=== PATIENT | female | born 1945 | race Caucasian/White ===

== ENCOUNTER 2021-12-21 08:08 | Day surgery (SDC) | payer MEDICARE, SELFPAY ==
--- NOTE | 2021-12-21 | MM_ITS ---
Patient: DANDRE CRISOSTOMO Facility:?[facility] Patient ID:?[id number] Site Patient ID:?[id number]. Site :?1945 Study:?XRay-Breast Right SPECIMEN 1-DR. HOLT READ-12/21/2021 1:41:31 PM Ordering Physician:?Gilmar De La Vega Final Report: RIGHT SPECIMEN RADIOGRAPH NUMBER ONE INDICATION: First specimen radiograph. TECHNIQUE: Specimen radiographs 2 views. COMPARISON FILM: Wire localization mammogram 12/21/2021 and mammogram 11/16/2021. FINDINGS: The wire is entirely contained within the specimen. No identifiable mass or suspicious microcalcifications. IMPRESSION: Specimen radiograph number one containing the first wire placed by ultrasound-guided guidance. Jez Holt M.D. Diagnostic/Musculoskeletal Radiologist [email or web address] CHARLES/kamari D& Transcribed: 9:33 a.m. BRITTANI/Dictated by: Jez Holt MD @ 12/22/2021 6:51:00 AM Signed by:?Jez Holt MD @12/22/2021 12:42:21 PM (Electronic Signature)
--- NOTE | 2021-12-21 | MM_ITS ---
Patient: DANDRE CRISOSTOMO Facility:?[facility] Patient ID:?[id number] Site Patient ID:?[id number]. Site :?1945 Study:?XRay-Breast Right SPECIMEN 2 DR. HOLT READ-12/21/2021 1:42:58 PM Ordering Physician:Marcio De La Vega Final Report: RIGHT SPECIMEN RADIOGRAPH NUMBER TWO INDICATION: Second specimen radiograph. TECHNIQUE: Specimen radiographs 2 views. COMPARISON FILM: Specimen radiograph 12/21/2021 from first wire localization and wire localization mammogram 12/21/2021 and mammogram 11/16/2021. FINDINGS: Localization wire, biopsy clip and microcalcifications are contained within the sample. The small mass also appears to be within the sample. IMPRESSION: Second wire localization wire placed by stereotactic guidance, suspicious microcalcifications and mass are contained within the sample. Jez Holt M.D. Diagnostic/Musculoskeletal Radiologist [email or web address] CHARLES/kamari Transcribed: 9:34 a.m. BRITTANI/Dictated by: Jez Holt MD @ 12/22/2021 6:51:00 AM Signed by:?Jez Holt MD @12/22/2021 12:42:25 PM (Electronic Signature)
--- NOTE | 2021-12-21 | MM_ITS ---
Patient: DANDRE CRISOSTOMO Facility:?[facility] Patient ID:?[id number] Site Patient ID:?[id number]. Site :?1945 Study:?XRay-Breast Right 2D WIRE LOC-12/21/2021 11:18:47 AM Ordering Physician:Marcio De La Vega Final Report: RIGHT MAMMOGRAM FOR WIRE LOCALIZATION INDICATION: Wire localization. TECHNIQUE: RIGHT CC and MLO mammograms for wire localization and stereotactic wire localization. COMPARISON FILM: RIGHT breast ultrasound wire localization 12/21/2021, diagnostic mammogram 11/16/2021, ultrasound breast biopsy 11/16/2021. FINDINGS: Ultrasound-guided wire localization wire is in the upper outer RIGHT breast approximately 4-5 cm anterior to the biopsy clip. This wire is approximately 4-5 cm from the skin surface with no obvious mass lesion or suspicious calcifications on mammogram. Re-ultrasound shows the wire within a hypodense mass lesion. The patient was positioned for stereotactic wire localization in the right breast LM position. The skin was cleaned with ChloraPrep and the skin and subcutaneous tissues anesthetized with 1% lidocaine without epinephrine. The needle was advanced tip over hub with subsequent mammogram showing the needle position over the clip. The patient was then repositioned in CC view and the needle was repositioned and wire deployed at the mass and biopsy clip in the upper outer RIGHT breast. Subsequent mammograms demonstrate the wire adjacent to the mass. Both wires were secured to the skin. Findings and reason for two localization wires was discussed with Dr. Schafer at approximately 11 a.m. on 12/21/2021. IMPRESSION: 1. More anterior ultrasound-guided wire localization is not within the mass or biopsy clip. Re-ultrasound demonstrates the wire in an irregular hypodense mass lesion. This was discussed with Dr. Schafer. 2. Stereotactic-guided wire localization with wire adjacent to the mass and biopsy clip in the upper outer RIGHT breast. Jez Styles M.D. Diagnostic/Musculoskeletal Radiologist [email or web address] CHARLES/kamari D& Transcribed: 3:34 p.m. BRITTANI/Dictated by: Jez Styles MD @ 12/21/2021 11:55:00 AM Signed by:?Jez Styles MD @12/21/2021 8:58:57 PM (Electronic Signature)
[2021-12-21 07:58] VITALS: BMI 27.5
--- NOTE | 2021-12-21 08:47 | PC.NURSE ---
patient has [employer] Daja sensor. Patient checked glucose level at 0715. result 159
[2021-12-21 08:49] VITALS: BP 173/77; PULSE 63; RESP 16; TEMP 36.8; O2SAT 100
[2021-12-21] MEDS: LACTATED RINGERS 1000 ML 1,000 ML 100 ML IV ×2 (09:02→12:57)
--- NOTE | 2021-12-21 09:15 | US_ITS ---
Final Report Patient: DANDRE CRISOSTOMO Facility:?[facility] Patient ID:?[id number] Site Patient ID:?[id number]. Site :?1945 Study:?US Breast Procedure DR. STYLES TO READ-12/21/2021 10:39:44 AM Ordering Physician:Marcio De La Vega Final Report: Breast wire localization using ultrasound guidance. CLINICAL HISTORY: Right upper-outer invasive ductal carcinoma. LATERALITY: Right upper-outer LESION: 5 mm irregular hypoechoic mass lesion was identified in the right upper outer quadrant. TECHNIQUE: The localization wire was placed using real-time ultrasound guidance with image documentation. Cranial-caudal and medial-lateral digital mammograms were obtained after localization wire placement. CONSENT and TIME OUT: The procedure, risks, and alternatives were explained to the patient and a consent was signed. [place] Protocol was followed including pre-procedure verification that relevant information/documentation was available, reviewed and properly matched to the patient; consent accurate and complete; and equipment and supplies available. Time Out was conducted just prior to starting procedure to verify the four required elements: patient identity, correct side/site marked, procedure, relevant images/results properly labeled and displayed. PROCEDURE: The skin was prepped with Betadine and 3 cc of 1 percent lidocaine was injected for local anesthesia. The localization wire was placed within or near the targeted breast lesion using ultrasound guidance. The patient tolerated the procedure well. PROXIMITY OF WIRE TO LESION: Tip of the wire is within the mass lesion present IMPRESSION: Successful breast wire localization within irregular hypoechoic mass lesion in the right upper outer quadrant at approximately 10 o`clock. Post localization mammograms demonstrate the wire anterior to the biopsy clip and mass. Ultrasound was performed which showed the wire within a hypoechoic mass lesion. Subsequently, in addition stereotactic wire localization was performed targeting the biopsy clip. Findings and presence of [address] wires [address] Schafer at approximately 11 a.m. on 12/21/2021. ACR not applicable. Dictated by Jez Styles MD @ 12/21/2021 12:07:40 PM (Electronic Signature)
--- NOTE | 2021-12-21 09:15 | TELERAD_ITS ---
Final Report Patient: DANDRE CRISOSTOMO Facility:?[facility] Patient ID:?[id number] :?1945 Study:?XRay Breast Right 2D WIRE LOC-12/21/2021 11:18:47 AM Ordering Physician:Marcio De La Vega Final Report: RIGHT MAMMOGRAM FOR WIRE LOCALIZATION INDICATION: Wire localization. TECHNIQUE: RIGHT CC and MLO mammograms for wire localization and stereotactic wire localization. COMPARISON FILM: RIGHT breast ultrasound wire localization 12/21/2021, diagnostic mammogram 11/16/2021, ultrasound breast biopsy 11/16/2021. FINDINGS: Ultrasound-guided wire localization wire is in the upper outer RIGHT breast approximately 4-5 cm anterior to the biopsy clip. This wire is approximately 4-5 cm from the skin surface with no obvious mass lesion or suspicious calcifications on mammogram. Re-ultrasound shows the wire within a hypodense mass lesion. The patient was positioned for stereotactic wire localization in the right breast LM position. The skin was cleaned with ChloraPrep and the skin and subcutaneous tissues anesthetized with 1% lidocaine without epinephrine. The needle was advanced tip over hub with subsequent mammogram showing the needle position over the clip. The patient was then repositioned in CC view and the needle was repositioned and wire deployed at the mass and biopsy clip in the upper outer RIGHT breast. Subsequent mammograms demonstrate the wire adjacent to the mass. Both wires were secured to the skin. Findings and reason for two localization wires was discussed with Dr. Schafer at approximately 11 a.m. on 12/21/2021. IMPRESSION: 1. More anterior ultrasound-guided wire localization is not within the mass or biopsy clip. Re-ultrasound demonstrates the wire in an irregular hypodense mass lesion. This was discussed with Dr. Schafer. 2. Stereotactic-guided wire localization with wire adjacent to the mass and biopsy clip in the upper outer RIGHT breast. Jez Styles M.D. Diagnostic/Musculoskeletal Radiologist [email or web address] CHARLES/kamari D& Transcribed: 3:34 p.m. BRITTANI/Dictated by: Jez Styles MD @ 12/21/2021 11:55:00 AM (Electronic Signature)
[2021-12-21] MEDS: BUPIVACAINE 0.25% 30 ML 15 ML INJECTION (11:15)
[2021-12-21] MEDS: CEFAZOLIN 2 GM INJ IVP (11:20)
--- NOTE | 2021-12-21 12:33 | PM.GSPRC ---
Operative Note Date of procedure: 12/21/21 Pre-op diagnosis: 1. Right breast invasive ductal carcinoma. Post-op diagnosis: same Type of Procedure: 1. Wire localized right breast lumpectomy. 2. Wire localized right breast excisional biopsy ( additional incidentally found right breast mass ) Procedure Description: I 76-year-old female was seen in clinic with a newly diagnosed 5 mm right breast invasive ductal carcinoma, grade 2 of 3 with no angiolymphatic invasion and no associated DCIS, ER / [place] positive and HER2 negative. This was located at 10:00 11 cm from the nipple. Patient had a history of 2 previous right breast core biopsies and 2 excisional biopsies for benign pathology. Given patient's clinical information and her age, wire localized lumpectomy was recommended. The procedure was discussed in detail. The risks associated the procedure including infection, bleeding, and the need for additional procedures were all discussed with the patient, and she agreed to proceed. During patient's wire localization of the known invasive ductal carcinoma, a small right breast nodule was located at 10:00. Once the wire was placed into this nodule, post localization mammogram showed that the wire was far from the biopsy clip. This was thought to be a new incidentally found nodule. A second wire was then placed into the known breast cancer. This was discussed with the patient and we elected to excise the newly found right breast nodule today. Pre-operative mammographic films taken after wire localization were reviewed. The mixture of Lidocaine and Marcaine was used as local anesthetic and was injected at the site of the incision. I first started with lumpectomy of the known invasive ductal carcinoma. The lumpectomy was performed by making a?transverse incision in the right breast just medial to the wire.? The breast tissue around the wire was then excised in a cylinder like fashion following the course of the wire using cautery.? This was done with frequent palpation of the wire.? The specimen was then excised making sure that the wire was still in the specimen. Margins of the specimen were inked and the specimen was then sent to mammography first to confirm presence of the wire and the clip and to pathology afterwards for gross margins. In the meantime I proceeded with excisional biopsy of the right breast mass that was incidentally found on wire localization ultrasound. A transverse incision was made just superior to the entrance of the wire. This was located at 10:00 and was lateral to the previously well-healed surgical incision. Subcutaneous skin flaps were developed with cautery until the wire was encountered and pulled into the surgical incision. The breast tissue was then excised in a cylinder like fashion following the course of the wire with frequent palpation of the wire. The specimen of interest was located fairly superficial. This was excised with cautery and inked for orientation. This was sent to pathology for gross examination. Pathologist reviewed the Known invasive ductal carcinoma specimen and the tumor and the biopsy clip was identified in the surgical specimen.?All margins were grossly negative. Pathologist also looked at the incidentally found mass and that appeared to be benign on gross examination. Surgical field was examined for bleeding and any bleeding was controlled with electrocautery. Vascular clips were placed for marking of invasive ductal carcinoma incisional cavity. Both incisions were re-approximated with interrupted 2-0 Vicryl stitches. Interrupted subdermal stitches were placed with 3-0 Vicryl as well and skin was closed with 4-0 Monocryl subcuticular stitch. Steristrips and sterile dressings were applied. At the end of the operation, all sponge, instrument, and needle counts were correct. Patient tolerated the procedure well and was transferred to same-day surgery in stable condition. Findings: the known invasive ductal carcinoma tumor was identified and no margins were negative. The second nodule excised appeared benign on gross pathology. Anesthesia: MAC and local Surgeon: Yolette Schafer MD Estimated blood loss (mL): 5 Condition: stable Disposition: same day
[2021-12-21 12:35] VITALS: BP 127/86; PULSE 64; RESP 12; TEMP 36.6; O2SAT 99
[2021-12-21 12:45] VITALS: BP 129/63; PULSE 65; RESP 12; O2SAT 95
--- NOTE | 2021-12-21 12:46 | SUR.PHASEII ---
Pt checked glucose level at 1245, result 148
--- NOTE | 2021-12-21 12:56 | W.ANESCHARGE ---
Anesthesia Charges Start Date/Time Anesthesia Start Date: 12/21/21 Anesthesia Start Time: 11:15 Stop Date/Time Anesthesia Stop Date: 12/21/21 Anesthesia Stop Time: 12:30 Summary Emergency: No Extremes of Age: Over 70-CPT 28145
[2021-12-21 13:00] VITALS: BP 148/76; PULSE 51; RESP 12; O2SAT 99
[2021-12-21] MEDS: METOCLOPRAMIDE HCL 5 MG/ML INJ 10 MG IVP (13:12)
[2021-12-21 13:15] VITALS: BP 148/68; PULSE 53; RESP 12; O2SAT 96
[2021-12-21 13:30] VITALS: BP 138/81; PULSE 53; RESP 16
--- NOTE | 2021-12-21 13:36 | SUR.PHASEII ---
Q EASY AROMATHERAPY PATCH APPLIED TO PATIENT'S LEFT UPPER CHEST.
--- NOTE | 2021-12-21 14:22 | W.ANESCHARGE ---
Anesthesia Charges Start Date/Time Anesthesia Start Date: 12/21/21 Anesthesia Start Time: 11:15 Stop Date/Time Anesthesia Stop Date: 12/21/21 Anesthesia Stop Time: 12:30 Summary Emergency: No Extremes of Age: Over 70-CPT 92299
== END 2021-12-21 14:44 | disposition home or self-care (01) ==
PROVIDERS: PCP Internal Medicine; Visit Provider Surgery
PROC: (CPT 19301; principal; 2021-12-21 11:30)
DX: C50.411 Malignant neoplasm of upper-outer quadrant of right female breast (principal); N63.11 Unspecified lump in the right breast, upper outer quadrant; Z17.0 Estrogen receptor positive status [ER+]
CPT/HCPCS: 19301; 19120; 00400; 19281; 19285; 77065; 82947; 88307; 88341; 88342; 99100; J0690; J1170; J2250; J2370; J2405; J2704; J2765; J3010; J3490; J7120

== ENCOUNTER 2022-01-03 19:17 | Emergency (ER) | payer MEDICARE, SELFPAY ==
[2022-01-03 19:33] VITALS: BP 190/85; PULSE 74; RESP 16; TEMP 37.2; O2SAT 99; BMI 25.8
--- NOTE | 2022-01-03 20:01 | ED_ITS ---
HPI - URI/Sore Throat General Chief Complaint: Unspecified Complaint, Adult Stated Complaint: Covid+ Time Seen by Provider: 01/03/22 19:49 History of Present Illness HPI Narrative: patient is a 76-year-old woman who presents with mild pharyngitis and Dry coughshe has body aches and mild malaise. she tested positive for COVID-19 earlier today. She feels well otherwise but does have diabetes and hypertension. A reasonably well controlled. No nausea or vomiting. Related Data Home Medications Medication Instructions Recorded Confirmed acetaminophen 500 mg tablet 500 - 1,000 mg PO Q6H PRN 12/20/21 12/30/21 albuterol sulfate 90 mcg/actuation See Rx Instructions .ROUTE 12/20/21 12/30/21 aerosol inhaler .COMPLEX PRN alendronate 70 mg tablet 70 mg PO Q7D 12/20/21 12/30/21 atorvastatin 10 mg tablet 10 mg PO HS 12/20/21 12/30/21 beclomethasone dipropionate 80 2 inh INHALATION BID 12/20/21 12/21/21 mcg/actuation HFA breath activated aerosol betamethasone dipropionate 0.05 % 1 applic TOPICAL BID 12/20/21 12/30/21 topical cream carvedilol 6.25 mg tablet 6.25 mg PO BID 12/20/21 12/30/21 clindamycin phosphate 1 % lotion 1 applic TOPICAL BID 12/20/21 12/30/21 clobetasol 0.05 % topical ointment 1 applic TOPICAL .4-5 Days/Week 12/20/21 12/30/21 clopidogrel 75 mg tablet (Plavix) 75 mg PO DAILY 12/20/21 12/30/21 diazepam 2 mg tablet 2 mg PO DAILY PRN 12/20/21 12/30/21 finasteride 5 mg tablet 2.5 mg PO DAILY 12/20/21 12/30/21 fluticasone propionate 50 2 spray INTRANASAL BID 12/20/21 12/30/21 mcg/actuation nasal spray,suspension (Allergy Relief (fluticasone)) gabapentin 300 mg capsule 300 mg PO HS 12/20/21 12/30/21 insulin glargine 100 unit/mL (3 18 unit SUBCUT QAM 12/20/21 12/30/21 mL) subcutaneous pen magnesium oxide 400 mg (241.3 mg 600 mg PO DAILY 12/20/21 12/30/21 magnesium) tablet omeprazole 20 mg capsule,delayed 20 mg PO DAILY 12/20/21 12/30/21 release timolol maleate 0.5 % eye drops 1 drp OPHTHALMIC (EYE) HS 12/20/21 12/30/21 valacyclovir 500 mg tablet 500 mg PO BID 12/20/21 12/30/21 zolpidem 5 mg tablet 5 mg PO HS PRN 12/20/21 12/30/21 Previous Rx's Medication Instructions Recorded hydrocodone 5 mg-acetaminophen 325 1 tab PO Q6H PRN #20 tab 12/21/21 mg tablet insulin aspart U-100 100 unit/mL 4 - 6 unit (0.04 - 0.06 mL) SUBCUT 12/28/21 (3 mL) subcutaneous pen (Novolog .tidac #15 ml Flexpen U-100 Insulin aspart) flash glucose scanning reader #2 kit 12/31/21 (FreeStyle Daja 14 Day [place]) flash glucose sensor (FreeStyle #2 kit 12/31/21 Daja 14 Day Sensor kit) nirmatrelvir 300 mg (150 mg x See Rx Instructions .ROUTE 01/03/22 2)-ritonavir 100 mg tablet (EUA) .COMPLEX #30 tab (Paxlovid 300 mg () Allergies Allergy/AdvReac Type Severity Reaction Status Date / Time hazelnut Allergy Severe Throat Verified 12/21/21 08:31 closes and hives adhesive Allergy Unknown Verified 12/21/21 08:31 cantaloupe Allergy Unknown Verified 12/17/21 13:47 codeine AdvReac Mild Nausea and Verified 12/21/21 08:31 Vomiting Sulfa drugs Allergy Severe Throat Uncoded 12/17/21 13:47 tightening Sulfites Allergy Mild Rash Uncoded 12/17/21 13:47 Gluten Meal AdvReac Unknown GI Uncoded 12/17/21 13:47 intolerance Review of Systems Status of ROS: Reports: 10 or more systems reviewed and unremarkable except as noted in History and below [facility] Medical History History of depression (2001) History of hemorrhoids (2013) Surgical History History of bladder surgery (02/08/10) History of blepharoplasty (07/08/09) History of breast biopsy (07/08/09) History of hysterectomy (07/08/09) History of open reduction and internal fixation (ORIF) procedure (07/16/19) 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) Status post cataract extraction and insertion of intraocular lens (2013) Social History Narrative: History of tobacco use Smoking Status: Never smoker Do you use any of these nicotine containing products: None How often do you have a drink containing alcohol: never How often do you have six or more drinks on one occasion: Never AUDIT-C Alcohol total score: 0 Non-prescribed substance use: denies use Exam Narrative: Exam Narrative: EXAM GENERAL: Patient appears comfortable and well. EYES: No scleral icterus. LYMPH: No supraclavicular or cervical lymphadenopathy. SKIN: Visible skin seen during exam normal or with benign process only. EXT: No dependent lower extremity pedal edema. HEART: Regular rate and rhythm with no murmurs, rubs, or gallops. LUNGS: Clear to auscultation bilaterally with no crackles or wheezes. ABD: Soft, non tender, non distended. PSYCH: Good eye contact, speech is not pressured. Const: Vital Signs, click to edit/add: Vital Signs - 24 hr 01/03/22 19:33 Temperature 98.9 F Pulse Rate [Right Pulse Oximeter] 74 Respiratory Rate 16 Blood Pressure [Ri ght Upper Arm] 190/85 H Pulse Oximetry 99 Course Vital Signs Vital signs: Initial Vital Signs Temperature 98.9 F 01/03/22 19:33 Temperature Source Temporal Artery Scan 01/03/22 19:33 Pulse Rate 74 01/03/22 19:33 Respiratory Rate 16 01/03/22 19:33 Blood Pressure 190/85 H 01/03/22 19:33 Blood Pressure Mean 120 01/03/22 19:33 Blood Pressure Position Sitting 01/03/22 19:33 Pulse Oximetry 99 01/03/22 19:33 Oxygen Delivery Method 01/03/22 19:33 Vital Signs Temperature 98.9 F 01/03/22 19:33 Pulse Rate 74 01/03/22 19:33 Respiratory Rate 16 01/03/22 19:33 Blood Pressure 190/85 H 01/03/22 19:33 Pulse Oximetry 99 01/03/22 19:33 Temperature 98.9 F 01/03/22 19:33 Pulse Rate 74 01/03/22 19:33 Respiratory Rate 16 01/03/22 19:33 Blood Pressure 190/85 H 01/03/22 19:33 Pulse Oximetry 99 01/03/22 19:33 MDM - URI/Sore Throat MDM Narrative Medical decision making narrative: I did have a nice discussion withHer about treatment of COVID-19. patient is non hypoxic Nontoxic looking. Medical Records Medical records narrative: reviewed Discharge Plan Discharge Clinical Impression: COVID-19 Patient Disposition: Home, Self-Care Condition: Stable Instructions: COVID-19 (Coronavirus Disease 2019) (ED) Activity Level: No Restrictions Discharge Diet: Regular Prescriptions: New Paxlovid (EUA) 150 mg x 2- 100 mg tablet See Rx Instructions .ROUTE .COMPLEX Qty: 30 0RF Rx Instructions: take TWO 150 mg tablets of nirmatrelvir with ONE 100 mg tablet of ritonavir twice daily for 5 days No Action atorvastatin 10 mg tablet 10 mg PO HS 0RF alendronate 70 mg tablet 70 mg PO Q7D 0RF omeprazole 20 mg capsule,delayed release(DR/EC) 20 mg PO DAILY 0RF zolpidem 5 mg tablet 5 mg PO HS PRN0RF albuterol sulfate 90 mcg/actuation HFA aerosol inhaler See Rx Instructions .ROUTE .COMPLEX PRN0RF Rx Instructions: 2-4 inh q4-6h PRN; timolol maleate 0.5 % drops 1 drp OPHTHALMIC (EYE) HS 0RF Rx Instructions: Apply to fingertips at bedtime. beclomethasone dipropionate 80 mcg/actuation HFA aerosol breath activated 2 inh inhalation BID 0RF Rx Instructions: administer with spacer magnesium oxide 400 mg (241.3 mg magnesium) tablet 600 mg PO DAILY 0RF Rx Instructions: 400 mg in am, 200 mg pm betamethasone dipropionate 0.05 % cream 1 applic TOPICAL BID 0RF Rx Instructions: Apply to affected area twice daily as needed gabapentin 300 mg capsule 300 mg PO HS 0RF clindamycin phosphate 1 % lotion 1 applic TOPICAL BID 0RF Rx Instructions: Apply topically to affected area 1-2 times daily. fluticasone propionate [Allergy Relief (fluticasone)] 50 mcg/actuation spray,suspension 2 spray intranasal BID 0RF Rx Instructions: administer into each nostril insulin glargine 100 unit/mL (3 mL) insulin pen 18 unit SUBCUT QAM 0RF clopidogrel [Plavix] 75 mg tablet 75 mg PO DAILY 0RF valacyclovir 500 mg tablet 500 mg PO BID 0RF finasteride 5 mg tablet 2.5 mg PO DAILY 0RF Rx Instructions: Take 2.5mg (1/2 tablet) daily clobetasol 0.05 % ointment 1 applic TOPICAL .4-5 Days/Week 0RF Rx Instructions: APPLY SPARINGLY TO AFFECTED AREA carvedilol 6.25 mg tablet 6.25 mg PO BID 0RF diazepam 2 mg tablet 2 mg PO DAILY PRN0RF acetaminophen 500 mg tablet 500 - 1,000 mg PO Q6H PRN0RF Rx Instructions: NO MORE THAN 4000 MG/DAY hydrocodone-acetaminophen 5-325 mg tablet 1 tab PO Q6H PRN (Reason: pain) Qty: 20 0RF insulin aspart U-100 [Novolog Flexpen U-100 Insulin] 100 unit/mL (3 mL) insulin pen 4 - 6 unit subcut .tidac Qty: 15 3RF (DME) FreeStyle Daja 14 Day [place] Misc See Rx Instructions .Route Qty: 2 11RF Rx Instructions: As directed (DME) FreeStyle Daja 14 Day Sensor Kit See Rx Instructions .Route Qty: 2 11RF Rx Instructions: As directed Follow Up/Referrals: Lina Meléndez MD [Primary Care Provider] - Stand Alone [facility]: [facility]
[2022-01-03 20:18] VITALS: BP 175/89; PULSE 74; RESP 16; TEMP 36.7; O2SAT 99
[2022-01-03 20:19] VITALS: BP 185/79; PULSE 70; RESP 16; TEMP 36.7
== END 2022-01-03 20:12 | disposition home or self-care (01) ==
PROVIDERS: Emergency Provider Internal Medicine; PCP Internal Medicine
DX: U07.1 COVID-19 (principal)
CPT/HCPCS: 99282; 99283; 99284

== ENCOUNTER 2022-01-20 07:33 | Outpatient (RCR) | payer MEDICARE, SELFPAY ==
--- NOTE | 2022-01-27 13:08 | ONC.NURNOTE ---
Breast Imaging Assistant Note Received call from patient saying she would like to pursue endocrine therapy. Reviewing Dr. Giles's note from 01/20/22 visit, the discussion considered risk/benefit of endocrine therapy with a decision to hold off d/t possible upcoming spinal stabilization surgery and risk of osteoporosis. She reports today that she had an epidural injection yesterday that was successful; she is feeling better and believes her condition has improved significantly to the point of not needing spinal stabilization surgery in the near future. She would like to begin endocrine therapy, with consideration of ischemic stroke in 2015. She also reports she has a consult with Radiation Onc 02/03/22 @[facility]. [facility] to review with Dr. Giles when next in clinic (02/03/22) and call pt with the plan. Pt is agreeable to this timeline.
--- NOTE | 2022-02-04 14:15 | ONC.NURNOTE ---
Breast Forest Officer Note Reviewed with Dr. Giles pt's decision to proceed with endocrine therapy; pt to begin Anastrazole, ordered. Reviewed with pt instructions and side effects. Questions answered. Pt to begin 5 days Rad Tx; simulation 02/09 and treatments 02/14- 02/18.
--- NOTE | 2022-02-11 07:24 | ONC.NURNOTE ---
Breast Counter Person Note Received call from patient yesterday saying she will soon be starting Finasteride (Propecia) for hair growth and is wondering if it will interact with her beginning Anastrazole in a few weeks as radiation therapy completes shortly, as Finasteride interacts with testosterone levels. Cafeteria Food Server reviewed with Monet Ma CNP. This is not well studied at this time and no specific recommendation either way. Cafeteria Food Server encouraged pt to review with her pharmacist as well. Pt agreeable to this plan.
== END 2022-01-23 23:59 | disposition home or self-care (01) ==
LOC: CCIC 07:33
PROVIDERS: PCP Internal Medicine; Visit Provider Nurse Practitioner Family
DX: C50.911 Malignant neoplasm of unspecified site of right female breast (principal)
CPT/HCPCS: 99202; 99205; 99212; 99213

== ENCOUNTER 2022-01-25 09:43 | Outpatient (CLI) | payer MEDICARE, SELFPAY | END 2022-01-25 09:44 | disposition home or self-care (01) | LOC: INJ CL 09:44 | PROVIDERS: PCP Internal Medicine; Visit Provider Family Medicine | DX: M54.16 Radiculopathy, lumbar region (principal); M51.36 Other intervertebral disc degeneration, lumbar region | CPT/HCPCS: 64483; J1100; Q9966 ==

== ENCOUNTER 2022-04-05 15:37 | Outpatient (CLI) | payer MEDICARE, SELFPAY ==
--- OUTSIDE RECORDS SUMMARY | 2022-04-05 15:44 | XMS_ITS | Encounter Summary ---
:1945 [facility] Address [address], [place] [address] Care Team Providers Name Role Phone Lina Meléndez MD Primary Care Provider Encounter Details Date Type Department Care Team Description 09/10/2021 Notes/Orders Specialty Center 3931 Leeann Rodriguez MD [facility] 3931 [facility] 3931 [place] [address] [place] [address] [phone] Social History Tobacco Use Types Packs/Day Years Used Date Smoking Tobacco: Never Smokeless Tobacco: Never Alcohol Use Standard Drinks/Week Comments Yes 0 (1 standard drink = 0.6 oz pure alcoho l) Sex Assigned at Date Recorded Not on file documented as of this encounter Plan of Treatment Not on filedocumented as of this encounter Visit Diagnoses Not on filedocumented in this encounter Care Teams Machine Heel Sprayer Relationship Specialty Start Date End Date Lina Meléndez MD PCP - General Internal Medicine 12/20/[address] [place] [address] documented as of this encounter
--- OUTSIDE RECORDS SUMMARY | 2022-04-05 15:44 | XMS_ITS | Clinical Summary ---
:1945 Author [facility] Address [address] [place] [address] Care Team Providers Name Role Phone Lina Meléndez MD Primary Care Provider Source Comments You are receiving this document as you are listed as the primary care provider,follow-up provider, or the patient has been referred to you for consultation.This is in compliance with the Medicare and Medicaid EHR Incentive Program,which states Providers who transition their patient to another setting of careor provider of care or refers their patient to another provider of care shouldprovide summarycare record for each transition of care or referral. Orthohub Allergies Active Allergy Reactions Severity Noted Date Comments Adhesive 07/16/2019 Codeine 02/02/2004 PN: LW Reaction : Nausea Gluten Meal Gastrointestinal 05/21/2016 Including w heat Other 02/03/2004 Melon, tree nut s, pollen, maple flavor, c arrot oil LW Other2: -NKA Sodium Metabisulfite Rash 12/05/2016 Sulfa Antibiotics High 02/02/2004 anaphalaxi s Medications Medication Sig Dispensed Refills Start Date End Date Status insulin glargine Inject 18 Units 0 05/02/2007 Active (AKA LANTUS) 100 subcutaneously UNIT/ML injection nightly. LW Comment:info per pt, Dr.Tom Dye insulin lispro (AKA Inject 0 06/22/2011 Active HUMALOG) 100 UNIT/ML subcutaneously 4 injection vial times daily (sliding scale). Indications: DIABETES MELLITUS atorvastatin Take 10 mg by mouth 0 05/23/2016 Active (LIPITOR) 10 MG daily. Indications: tabletIndications: High Amount of Fats Hyperlipidemia in the Blood fluticasone Place 2 Sprays into 0 Active (FLONASE) 50 MCG/ACT both nostrils two nasal times a day. solutionIndications: Indications: Signs Nasal Signs and and Symptoms of Nose Symptoms Diseases clopidogrel (PLAVIX) Take 75 mg by mouth 0 6 Active 75 MG daily. Indications: tabletIndications: stroke stroke magnesium oxide Take 800 mg by mouth 0 03/05/2016 Active (MAG-OX) 400 MG two times a day. tabletIndications: Indications: Hypomagnesemia Disorder with Low Magnesium Levels cloNIDine (CATAPRES) Take 0.3 mg by mouth 0 Active 0.3 MG three times a day. tabletIndications: Indications: High Hypertension Blood Pressure Disorder valACYclovir Take 500 mg by mouth 0 Active (VALTREX) 500 MG two times a day. tablet ondansetron (ZOFRAN) Take 2 Tablets by 30 Tablet 0 07/10/2019 Active 4 MG tablet mouth every 8 hours as needed. senna (SENOKOT) 8.6 Take 1 Tablet by 30 Tablet 0 07/16/2019 Active MG mouth two times a tabletIndications: day. Take while on Constipation narcotics. Hold for loose stools. Indications: Constipation Additional Information Patient not taking. Reported on 08/26/2019 acetaminophen (TYLENOL) 500 Take 2 Tablets by mouth 100 Tablet 0 07/16/2019 Active MG tabletIndications: Pain three times a day. 24 hour limit of acetaminophen (TYLENOL) is 4000mg. Indications: Pain zolpidem (AMBIEN) 5 MG Take 5 mg by mouth at 0 Active tabletIndications: Insomnia bedtime as needed for Sleep. Indications: Trouble Sleeping HYDROmorphone (DILAUDID) 2 MG Take 1-2 Tablets by 30 Tablet 0 07/17/2019 Active tablet mouth every 4 hours as needed for Pain. Take one tab for pain rating 4-7, take two tabs for pain rating 8-10. Additional Information Patient not taking. Reported on 08/26/2019 Active Problems Problem Noted Date Closed fracture of left proximal humerus 07/10/2019 Overview: Added automatically from request for kirstie courtney [id number] TC (obstructive sleep apnea) 11/05/2018 Arthritis of carpometacarpal (CMC) joint of right thum b 10/16/2017 Overview: September 2017: cortisone injection right CM C joint, 75 % improvement at 2 weeks. Jul 2018: Bilateral CMC Joint thumb inje ctions by Dr. 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 ; Polyp Colon Adenomatous Type 2 diabetes mellitus without complication, with lo ng-term current use 03/23/2007 of insulin Overview: DM Type2 Backache 03/23/2007 Major depressive disorder, recurrent episode 7 Osteoarthrosis, unspecified whether generalized or loc alized, unspecified 11/30/2002 site Overview: DJD Social History Tobacco Use Types Packs/Day Years Used Date Smoking Tobacco: Never Smokeless Tobacco: Never Tobacco Cessation: Counseling Given: No Alcohol Use Standard Drinks/Week Comments Yes 0 (1 standard drink = 0.6 oz pure alcoho l) Sex Assigned at Date Recorded Not on file Last Filed Vital Signs Vital Sign Reading Time Taken Comments Blood Pressure 147/63 07/17/2019 2:34 PM CREDENTIALS SPECIALIST Pulse 75 07/17/2019 2:34 PM CREDENTIALS SPECIALIST Temperature 36.7 ??C (98.1 ??F) 07/17/2019 2:34 PM CREDENTIALS SPECIALIST Respiratory Rate 18 07/17/2019 2:34 PM CREDENTIALS SPECIALIST Oxygen Saturation 99% 07/17/2019 2:34 PM CREDENTIALS SPECIALIST Inhaled Oxygen Concentration - - Weight 75 kg (165 lb 6.4 oz) 07/16/2019 10:19 AM CREDENTIALS SPECIALIST Height 165.1 cm (5' 5) 07/16/2019 10:19 AM CREDENTIALS SPECIALIST Body Mass Index 27.52 07/16/2019 10:19 AM CREDENTIALS SPECIALIST Plan of Treatment Health Maintenance Due Date Last Done Comments Diabetes: Eye Exam 1945 Diabetes: Foot Exam 1945 Diabetes: Lipid Panel 1945 Diabetes: Urine 1945 Microalbumin Hep C Screening (Preventive 1945 Services) COVID-19 Vaccine (#1) 02/17/1946 HepB (1) 1966 Dexa 2012 Mammogram 10/11/2013 10/11/2012 Diabetes: HGBA1C 10/16/2019 07/17/2019 Diabetes: Creatinine 07/17/2020 07/17/2019, 05/05/2007, 02/04/2004 Medicare Annual Wellness 06/26/2021 Visit Influenza (#1) 2022 03/31/2020, 03/26/2019, 03/31/2017, Additional history exists Colonoscopy 08/30/2023 08/29/2013 DTaP/Tdap/Td (3 - Tdap) 08/22/2024 08/22/2014, 01/22/2002, 01/22/2002 HepA Aged Out 01/25/2002 No longer eligib le based on patient 's age to complete this topic Pneumococcal 65+ Yrs Completed 06/07/2018, 08/22/2014, 06/10/2010 Zoster/Shingles Completed 10/10/2018, 06/04/2018, 03/11/2009 Hib Aged Out No longer eligib le based on patient 's age to complete this topic IPV (Polio) Aged Out No longer eligib le based on patient 's age to complete this topic MCV4 Aged Out No longer eligib le based on patient 's age to complete this topic Medical Devices Implanted Type Area Supervisor Enrobing Device Shelf Model / Identifier Expiration Serial / Date Lot Scr Cj Sftp Ss 3.5x32 F-Thrd - [id number] DEVICE Left: DePuy S ynthes - [id number] / Implanted: Qty: 1 on 07/16/2019 by Edelmira Rodriguez MD at [facility]UMER[facility] Trauma / [place] [id number] Insurance Payer Benefit Plan / Subscriber ID Effective Dates Phone Addre ss Type Group [facility] MEDICARE [id number] 2019-Present [phone] CL AIMS Medicare [address] [place] [address] Maryam Cortez Personal/Family Self 1945 [address] [facility] [phone] [place], [place] ([place] [address] Maryam Cortez Personal/Family Self 1945 [address]) [facility] [phone] [place] ([place]) [id number] Advance Directives Latest Code Status on File Code Status Date Activated Date Inactivated Comments Full Code 07/16/2019 4:18 PM 07/17/2019 5:47 PM Care Teams Firer Watertender Relationship Specialty Start Date End Date Lina Meléndez MD PCP - General Internal Medicine 12/20/[address] [place] [address]
--- OUTSIDE RECORDS SUMMARY | 2022-04-05 15:44 | XMS_ITS | Encounter Summary ---
:1945 Author Organization [facility] Address [address] [place] [address] Care Team Providers Name Role Phone Lina Meléndez MD Primary Care Provider Encounter Details Date Type Department Care Team Description 07/22/2019 [facility] - Leeann Jara, Occupational Therapy OTR/L [address] [facility] [address] [place] [address] [place] [address] [phone] (Wo rk) Social History Tobacco Use Types Packs/Day Years Used Date Smoking Tobacco: Never Smokeless Tobacco: Never Alcohol Use Standard Drinks/Week Comments Yes 0 (1 standard drink = 0.6 oz pure alcoho l) Sex Assigned at Date Recorded Not on file documented as of this encounter Progress Notes Robert Jara OTR/L - 07/22/2019 11:59 PM CST [facility] Discharge Summary Outcome measures at discharge: OT - Discharge Total Visits: 1 Reason for discharge: Patient's care was transferred to another rehabilitation clinic closer to her home. Primary Therapist: Discharging therapist Attainment of goals: See above Patient Compliance with Therapy: Patient was compliant with attendance and therapy recommendations. Discharge recommendations: Patient to continue her rehabilitation at a Rehabilitation Clinic in [place] closer to her home. documented in this encounter Plan of Treatment Not on filedocumented as of this encounter Visit Diagnoses Not on filedocumented in this encounter Care Teams Sports Equipment Supervisor Relationship Specialty Start Date End Date Lina Meléndez MD PCP - General Internal Medicine 12/[address] [place] [address] documented as of this encounter
--- OUTSIDE RECORDS SUMMARY | 2022-04-05 15:44 | XMS_ITS | Encounter Summary ---
:1945 Author Organization [facility] Address [address] [place] [address] Care Team Providers Name Role Phone Lina Meléndez MD Primary Care Provider Reason for Visit Reason Comments Phone Visit Encounter Details Date Type Department Care Team Description 09/19/2019 Telephone Specialty Center 3931 Edelmira Lopez MD Phone Visit Orthopedics [address] [facility] [address] [place] [address] [place], [place] [address] [phone] Social History Tobacco Use Types Packs/Day Years Used Date Smoking Tobacco: Never Smokeless Tobacco: Never Alcohol Use Standard Drinks/Week Comments Yes 0 (1 standard drink = 0.6 oz pure alcoho l) Sex Assigned at Date Recorded Not on file documented as of this encounter Nursing Notes Daniella Osuna RN - 09/19/2019 2:07 PM CDT Called patient and left [facility] to call Triage at [phone] to provide possible time frames she is available tomorrow, 09/19, for a phone appointment with Dr. Rodriguez. Route to Dr. Rodriguez once updated. Edelmira Rodriguez MD - 09/19/2019 1:58 PM CDT I tried to leave a msg for Maryam but I kept being cut off... I am glad to do a phone visit. I just need to know when it would make sense to call her... Perhaps she could give me a range of times tomorrow? Thanks! Edelmira Rodriguez MD Daniella Osuna RN - 09/19/2019 1:43 PM CDT Action: Input needed Next Step: Caller IS expecting a call back from care team, return call Specific Request(s): 1. Return call to patient to address follow-up scheduled appointment Type of Surgery: DOS 07/16/19 ORIF L prox humerus fx Last clinic visit: 08/25 Based on last clinic visit, patient plan to F/U in [place] in 6 weeks for repeat shoulder xrays, then may add strengthening. Patient next appointment is 10/01. Please notify if this appointment can be delayed. Vee Mckeon - 09/19/2019 1:08 PM CDT Has the patient recently had surgery or an injury? Yes. Date of Surgery: July 16, 2019 Type of Surgery: DOS 07/16/19 ORIF L prox humerus fx How may we help you today? Patient is currently schedule on 10/01 with Michael as an in office visit. Describe your symptoms/concerns: Patient is wondering if this appointment can be changed to a phone visit. Would prefer not to come to clinic if at all possible. When did the issue start: n/a Have you been seen for this recently?: yes [Mechanical Adjuster/Appt Center: If yes, please include date and provider.] Is it okay to leave detailed message on your voicemail? yes [Mechanical Adjuster/Appt Center: If this call is after 3 p.m., communicate to patient: If we are not able to get back to you by the end of the day and your symptoms worsen please contact the Careline] documented in this encounter Plan of Treatment Not on filedocumented as of this encounter Visit Diagnoses Not on filedocumented in this encounter Care Teams Senior Controls Analyst Relationship Specialty Start Date End Date Lina Meléndez MD PCP - General Internal Medicine 12/20/[address] [place] [address] documented as of this encounter
--- OUTSIDE RECORDS SUMMARY | 2022-04-05 15:44 | XMS_ITS | Encounter Summary ---
:1945 Author Organization [facility] Address [address] [place] [address] Care Team Providers Name Role Phone Lina Meléndez MD Primary Care Provider Encounter Details Date Type Department Care Team Description 07/31/2019 Lab Visit Specialty Center 3931 Closed fracture of proximal [facility] end of left humerus, [address] [place] [address] morphology, initial [phone] encounter Social History Tobacco Use Types Packs/Day Years Used Date Smoking Tobacco: Never Smokeless Tobacco: Never Alcohol Use Standard Drinks/Week Comments Yes 0 (1 standard drink = 0.6 oz pure alcoho l) Sex Assigned at Date Recorded Not on file documented as of this encounter Plan of Treatment Not on filedocumented as of this encounter Procedures Procedure Name Priority Date/Time Associated Diagnosis Comme nts VITAMIN D Routine 07/31/2019 1:37 PM Closed fracture of Res ults for this 25-HYDROXY, TOTAL MATCH MAKER proximal end of left pr ocedure are in humerus, unspecified the res ults fracture morphology, section . initial encounter INTACT PTH Routine 07/31/2019 1:37 PM Closed fracture of Res ults for this MATCH MAKER proximal end of left procedu re are in humerus, unspecified the res ults fracture morphology, section . initial encounter documented in this encounter Results Vitamin D 25-Hydroxy, Total (07/31/2019 1:37 PM MATCH MAKER) P athologist Signature Vitamin D, 52 30 - 80 07/31/2019 [facility] 25-OH, Total ng/mL 2:34 PM MATCH MAKER LABORATORY Specimen Anatomical Collection Method / Collection Time Recei kaylene Time (Source) Location / Volume Laterality Blood Venipuncture / 07/31/2019 1:37 07/31/2019 1:49 Unknown PM MATCH MAKER PM MATCH MAKER Gabriela Lopez RN, SUPPORT STAFF NUCLEAR ENGINEER LAB_1 Performing Organization Address [facility] Phon e Number [facility] [address] [place] [address] Intact PTH (07/31/2019 1:37 PM MATCH MAKER) athologist Signature Intact PTH 28 10 - 100 07/31/2019 [facility] pg/mL 2:20 PM MATCH MAKER LABORATORY Specimen Anatomical Collection Method / Collection Time Recei kaylene Time (Source) Location / Volume Laterality Blood Venipuncture / 07/31/2019 1:37 07/31/2019 1:49 Unknown PM MATCH MAKER PM MATCH MAKER Gabriela Lopez RN, SUPPORT STAFF NUCLEAR ENGINEER LAB_1 Performing Organization Address [facility] Phon e Number [facility] [address] [place] [address] documented in this encounter Visit Diagnoses Diagnosis Closed fracture of proximal end of left humerus, unspecified fracture morphology, initial encounter documented in this encounter Care Teams Accelerator Technician Relationship Specialty Start Date End Date Lina Meléndez MD PCP - General Internal Medicine 12/20/[address] [place] [address] documented as of this encounter
--- OUTSIDE RECORDS SUMMARY | 2022-04-05 15:44 | XMS_ITS | Encounter Summary ---
:1945 Author Organization [email or web address] Address [address] [place] [address] Care Team Providers Name Role Phone Lina Meléndez MD Primary Care Provider Reason for Referral Procedure/Equipment (Routine) - Incomplete Specialty Diagnoses / Procedures Referred By Contact Refer red To Contact Diagnoses Closed fracture of proximal end of left humerus with routine healing, unspecified fracture morphology, subsequent encounter Edelmira Rodriguez MD Procedures XR Shoulder Lt 2+ Views [address] [place], [place] [address] Referral ID Status Reason Start Date Expiration Date Visits V isits Requested Authorized [id number] Incomplete 08/13/2019 11/11/2020 1 1 ARCH SOFTWARE ENGINEER Reason for Visit Reason Comments Post Op Exam DOS: 07-16-19 ORIF Left proxi mal humerus fracture, 6 weeks post-op Encounter Details Date Type Department Care Team Description 08/26/2019 Office Visit Specialty Center 3931 Edelmira Rodriguez C losed fracture of [facility] proximal end of left [address] [facility]. 3931 [facility] merus with routine S. S healing, unspecified [place], [place] fr acture morphology, [id number] subsequent encounter [phone] (Wo rk) (Primary Dx) Social History Tobacco Use Types Packs/Day Years Used Date Smoking Tobacco: Never Smokeless Tobacco: Never Tobacco Cessation: Counseling Given: No Alcohol Use Standard Drinks/Week Comments Yes 0 (1 standard drink = 0.6 oz pure alcoho l) Sex Assigned at Date Recorded Not on file documented as of this encounter Patient Instructions Patient InstructionsLesly Garcia RN - 08/26/2019 9:30 AM CST [facility] [address] [place] [address] [place] [address] Reason for today's visit: Post Op Exam (DOS: 07-16-19 ORIF Left proximal humerus fracture, 6 weeks post-op) Treatment plan: ??? Physical therapy: Advance to [facility] Follow up Appointments: You will follow up in [place] in 6 weeks. Call to make your next appointment. If you have any questions about your visit, your symptoms, your medication, your test results or it is not clear what your diagnosis or treatment plan is please contact us at [phone] or send us a secure message via [employer]. Thank you for choosing [facility]. ARCH SOFTWARE ENGINEER documented in this encounter Progress Notes Edelmira Rodriguez MD - 08/26/2019 9:30 AM CST ORTHOPEDIC SURGERY CLINIC DOS: 07/24/19 PRE-OP DIAGNOSIS: Four-part left proximal humerus fracture. PROCEDURE: Open reduction, internal fixation left 4-part proximal humerus fracture. ?? HPI: Maryam Cortez is a 74 y.o. female is s/p Open reduction, internal fixation left 4-part proximal humerus fracture on 07/16/19. Since surgery, patient reports she has been doing well. She is working with therapy. The patient's pain is controlled w/ current medications. The patient denies any numbness or tingling. The patient has questions or concerns today regarding therapy and FU in [place] where she lives, as opposed to back here in [place]. Physical Exam: General- In general the patient is in no acute distress. HEENT- Hearing is intact to spoken word. Respiratory- Breathing is regular and unlabored. Psychiatric- Patient's affect is pleasant and appropriate. She is cooperative with exam. Neurological- Patient is alert and oriented times three. Sensation is intact to light touch axillary, median, radial, and ulnar distributions. Vascular- 2+ radial pulses are present bilaterally Skin- Bilateral upper extremity skin is intact without evidence of lesions, abrasions, or rashes. Incision looks good Musculoskeletal- Full elbow, wrist, press worker helper/hand ROM FE w assist to 125; abd w assist to 70; ERs w assist to 15 Imaging: the shoulder left xrays dated today, reviewed and interpreted by me, demonstrate plate and screw fixation of proximal humerus with stable alignment compared with prior imaging post operatively Assessment/plan: Maryam Cortez is a 74 y.o. old female who is ~ 6 weeks out from surgery - left ORIF proximal humerus She is doing great. May advance to [facility] in [place]. FU in [place] in 6 weeks w newshoulder xrays. If doing well then, would add strengthening. Questions answered. Pt in agreement w/ tx plan Edelmira Rodriguez MD documented in this encounter Plan of Treatment Not on filedocumented as of this encounter Results XR Shoulder Lt 2+ Views (08/26/2019 9:42 AM RESEARCH SOFTWARE ENGINEER) Anatomical Region Laterality Modality Upper Extremity, Shoulder Digital Radiog alexandra Specimen (Source) Anatomical Collection Method Collection Time Re ceived Time Location / / Volume Laterality 08/26/2019 9:32 AM RESEARCH SOFTWARE ENGINEER Impressions 08/26/2019 10:19 AM RESEARCH SOFTWARE ENGINEER COMPARISON: ??07/31/2019 FINDINGS: ??No change in alignment or po sition of the internally fixed fracture of the neck of the humerus. Interval removal of skin nahomy. Procedure Note Adalberto Mistry MD - 08/26/2019 IMPRESSION COMPARISON: 07/31/2019 FINDINGS: No change in alignment or posi tion of the internally fixed fracture of the neck of the humerus. Interval removal of skin nahomy. Edelmira Rodriguez MD RAD GD documented in this encounter Visit Diagnoses Diagnosis Closed fracture of proximal end of left humerus with routine healing, unspecified fracture morphology, subsequent encounte r - Primary Closed fracture of proximal end of left humerus, unspecified fracture morphology, initial encounter documented in this encounter Care Teams Hand Potter Relationship Specialty Start Date End Date Lina Meléndez MD PCP - General Internal Medicine 12/20/[address] [place] [address] documented as of this encounter
--- OUTSIDE RECORDS SUMMARY | 2022-04-05 15:44 | XMS_ITS | Encounter Summary ---
:1945 Author Organization [facility] Address [address] [place] [address] Care Team Providers Name Role Phone Lina Meléndez MD Primary Care Provider Reason for Referral Procedure/Equipment (Routine) - Incomplete Specialty Diagnoses / Procedures Referred By Contact Refer red To Contact Diagnoses Closed fracture of proximal end of left humerus, unspecified fracture morphology, initial encounter Gabriela Lopez, Procedures XR Shoulder Lt 2+ Views RN, MANAGER FURNITURE WAITER/WAITRESS HEAD [address] [place] [address] [phone] Referral ID Status Reason Start Date Expiration Date Visits V isits Requested Authorized [id number] Incomplete 07/23/2019 10/21/2020 1 1 ARD/STEWARDESS SECOND Reason for Visit Reason Comments Arm Injury left humerus Encounter Details Date Type Department Care Team Description 07/31/2019 Office Visit Specialty Center Gabriela Lopez Closed fracture of proximal end of left humerus, unspecified fracture morphology, initial encounter (Primary Dx); 393 KAMLESH Crawford RN, MANAGER FURNITURE Osteoporos is, unspecified osteoporosis type, unspecified pathological fracture presence Orthopedics WAITER/WAITRESS HEAD [address] [place] [id number] [phone] Social History Tobacco Use Types Packs/Day Years Used Date Smoking Tobacco: Never Smokeless Tobacco: Never Alcohol Use Standard Drinks/Week Comments Yes 0 (1 standard drink = 0.6 oz pure alcoho l) Sex Assigned at Date Recorded Not on file documented as of this encounter Patient Instructions Patient InstructionsGabriela Lopez RN, MANAGER FURNITURE WAITER/WAITRESS HEAD - 07/31/2019 1:00 PM CST Follow these recommendations for the general population: 1. Daily vitamin D 2,000 IU for life. This can be purchased over the counter. 2. Twice daily calcium citrate 600mg for life. OR Combination of supplement and dietary intake equalto 8711-9653 mg calcium daily. 3. Weight bearing exercises daily for bone health. Learning About Vitamin D Why is it important to get enough vitamin D? Your body needs vitamin D to absorb calcium. Calcium keeps your bones and muscles, including your heart, healthy and strong. If your muscles don't get enough calcium, they can cramp, hurt, or feel weak. You may have long-term (chronic) muscle aches and pains. If you don't get enough vitamin D throughout life, you have an increased chance of having thin and brittle bones (osteoporosis) in your later years. Children who don't get enough vitamin D may not growas much as others their age. They also have a chance of getting a rare disease called rickets. It causes weak bones. Vitamin D and calcium are added to many foods. And your body uses sunshine to make its own vitamin D. How much vitamin D do you need? Most people living in [place] need 2,000 IU of vitamin D everyday for life to maintain optimal levels. How can you get more vitamin D? Foods that contain vitamin D include: [place], tuna, and mackerel. These are some of the best foods to eat when you need to get more vitamin D. Cheese, egg yolks, and beef liver. These foods have vitamin D in small amounts. Milk, soy drinks, orange juice, yogurt, margarine, and some kinds of cereal have vitamin D added to them. Things that reduce how much vitamin D your body makes include: Dark skin, such as many Americans have. Age, especially if you are older than 65. Digestive problems, such as Crohn's or celiac disease. Liver and kidney disease. Some people who do not get enough vitamin D may need supplements. Are there any risks from taking vitamin D? Too much vitamin D is very rare: Can damage your kidneys. Can cause nausea and vomiting, constipation, and weakness. Raises the amount of calcium in your blood. If this happens, you can get confused or have an irregular heart rhythm. Vitamin D may interact with other medicines. Tell your doctor about all of the medicines you take, including [id number] drugs, herbs, and pills. Tell your doctor about all of your current medicalproblems. Learning About Calcium What is calcium? Calcium keeps your bones and muscles--including your heart--healthy and strong. Your body needs vitamin D to absorb calcium. People who don't get enough calcium and vitamin D throughout life have an increased chance of having thin and brittle bones (osteoporosis) in their later years. Thin and brittle bones break easily. They can lead to serious injuries. This is why it's important for you to get enough calcium and vitamin D as a child and as an adult. It helps keep your bones strong as you get older. And it protects you against possible breaks. Your body also uses vitamin D to help your muscles absorb calcium and work well. If your muscles don't get enough calcium, then they can cramp, hurt, or feel weak. You may have long-term (chronic) muscle aches and pains. How can you get enough calcium? Calcium is in foods such as milk, cheese, and yogurt. Vegetables like broccoli, kale, and Barbadian cabbage also have it. You can get calcium if you eat the soft edible bones in canned sardines and canned salmon. Foods with added (fortified) calcium include some cereals, juices, soy drinks, and tofu. The food label will show how much of it was added. You can figure out how much calcium is in a food by looking at the percent daily value section on the nutrition facts label. The food label assumes the daily value of calcium is 1,000 mg. So if one serving of a food has a daily value of 20% of calcium, that food has 200 mg of calcium in one serving. Some people who don't get enough calcium may need supplements. You can buy them as citrate or carbonate. Calcium carbonate is best absorbed when it is taken with food. Calcium citrate can be absorbed well with or without food. Spreading calcium out over the course of the day can reduce stomach upset. And your body absorbs it better when it is spread over the day. Try not to take more than 500 mg of calcium supplement at a time. Produce Serving Size Estimated Calcium* Aron greens, frozen 8 oz 360 mg Broccoli laine 8 oz 200 mg Kale, frozen 8 oz 180 mg Soy Beans, green, boiled 8 oz 175 mg Bok Ermelinda, cooked, boiled 8 oz 160 mg Figs, dried 2 figs 65 mg Broccoli, fresh, cooked 8 oz 60 mg Oranges 1 whole 55 mg Seafood Serving Size Estimated Calcium* Sardines, canned with bones 3 oz 325 mg Buckingham, canned with bones 3 oz 180 mg Shrimp, canned 3 oz 125 mg Dairy Serving Size Estimated Calcium* Ricotta, part-skim 4 oz 335 mg Yogurt, plain, low-fat 6 oz 310 mg Milk, skim, low-fat, whole 8 oz 300 mg Yogurt with fruit, low-fat 6 oz 260 mg Mozzarella, part-skim 1 oz 210 mg Cheddar 1 oz 205 mg Yogurt, Persian 6 oz 200 mg Djiboutian Cheese 1 oz 195 mg Feta Cheese 4 oz 140 mg Cottage Cheese, 2% 4 oz 105 mg Frozen yogurt, vanilla 8 oz 105 mg Ice Cream, vanilla 8 oz 85 mg Parmesan 1 tbsp 55 mg Fortified Food Serving Size Estimated Calcium* [place] milk, rice milk or soy milk, fortified 8 oz 300 mg [place] juice and other fruit juices, fortified 8 oz 300 mg Tofu, prepared with calcium 4 oz 205 mg Waffle, frozen, fortified 2 pieces 200 mg Oatmeal, fortified 1 packet 140 mg Chinese muffin, fortified 1 muffin 100 mg Cereal, fortified 8 oz 100-1,000 mg Other Serving Size Estimated Calcium* Mac & cheese, frozen 1 package 325 mg Pizza, cheese, frozen 1 serving 115 mg Pudding, chocolate, prepared with 2% milk 4 oz 160 mg Beans, baked, canned 4 oz 160 mg Preventing Falls: After Your Visit Your Care Instructions Getting around your home safely can be a challenge if you have injuries or health problems that makeit easy for you to fall. Loose rugs and furniture in walkways are among the dangers for many older people who have problems walking or who have poor eyesight. People who have conditions such as arthritis, osteoporosis, or dementia also have to be careful not to fall. You can make your home safer with a few simple measures. Follow-up care is a arshad part of your treatment and safety. Be sure to make and go to all appointments, and call your doctor if you are having problems. It's also a good idea to know your test results and keep a list of the medicines you take. How can you care for yourself at home? Taking care of yourself You may get dizzy if you do not drink enough water. To prevent dehydration, drink plenty of fluids, enough so that your urine is light yellow or clear like water. Choose water and other caffeine-free clear liquids. If you have kidney, heart, or liver disease and have to limit fluids, talk with your doctor before you increase the amount of fluids you drink. Exercise regularly to improve your strength, muscle tone, and balance. Walk if you can. Swimming maybe a good choice if you cannot walk easily. Have your vision and hearing checked each year or any time you notice a change. If you have trouble seeing and hearing, you might not be able to avoid objects and could lose your balance. Know the side effects of the medicines you take. Ask your doctor or pharmacist whether the medicinesyou take can affect your balance. Sleeping pills or sedatives can affect your balance. Limit the amount of alcohol you drink. Alcohol can impair your balance and other senses. Ask your doctor whether calluses or corns on your feet need to be removed. If you wear loose-fittingshoes because of calluses or corns, you can lose your balance and fall. Talk to your doctor if you have numbness in your feet. Preventing falls at home Remove raised doorway thresholds, throw rugs, and clutter. Repair loose carpet or raised areas in the floor. Move furniture and electrical cords to keep them out of walking paths. Use nonskid floor wax, and wipe up spills right away, especially on ceramic tile floors. If you use a walker or cane, put rubber tips on it. If you use crutches, clean the bottoms of them regularly with an abrasive pad, such as steel wool. Keep your house well lit, especially stairways, porches, and outside walkways. Use night-lights in areas such as hallways and bathrooms. Add extra light switches or use remote switches (such as switches that go on or off when you clap your hands) to make it easier to turn lights on if you have to get up during the night. Install sturdy handrails on stairways. Move items in your cabinets so that the things you use a lot are on the lower shelves (about waist level). Keep a cordless phone and a flashlight with new batteries by your bed. If possible, put a phone in each of the main rooms of your house, or carry a cell phone in case you fall and cannot reach a phone.Or, you can wear a device around your neck or wrist. You push a button that sends a signal for help. Wear low-heeled shoes that fit well and give your feet good support. Use footwear with nonskid soles. Check the heels and soles of your shoes for wear. Repair or replace worn heels or soles. Do not wear socks without shoes on wood floors. Walk on the grass when the sidewalks are slippery. If you live in an area that gets snow and ice in the winter, sprinkle salt on slippery steps and sidewalks. Preventing falls in the bath Install grab bars and nonskid mats inside and outside your shower or tub and near the toilet and sinks. Use shower chairs and bath benches. Use a hand-held shower head that will allow you to sit while showering. Get into a tub or shower by putting the weaker leg in first. Get out of a tub or shower with your strong side first. Repair loose toilet seats and consider installing a raised toilet seat to make getting on and off the toilet easier. Keep your bathroom door unlocked while you are in the shower. ARD/STEWARDESS SECOND documented in this encounter Progress Notes Gabriela Lopez RN, RYANN WAITER/WAITRESS HEAD - 07/31/2019 1:00 PM CST [facility] DOS: 07/31/2019 PRE-OP DIAGNOSIS: Four-part left proximal humerus fracture. PROCEDURE: Open reduction, internal fixation left 4-part proximal humerus fracture. ?? HPI: Maryam Cortez is a 73 y.o. female is s/p Open reduction, internal fixation left 4-part proximal humerus fracture on 07/16/19. Since surgery, patient reports she has been doing well. She is working with therapy. The patient's pain is controlled w/ current medications. The patient denies any numbness or tingling. The patient has questions or concerns today regarding therapy and bone health. Physical Exam: General- In general the patient [...] without evidence of lesions, abrasions, or rashes. Oakley present. Incision approximated, no drainage Musculoskeletal- Full elbow, wrist, floral assistant/hand ROM Imaging: the shoulder left xrays dated today, reviewed and interpreted by me, demonstrate plate and screw fixation of proximal humerus with stable alignment compared with prior imaging post operatively Assessment/plan: Maryam Cortez is a 73 y.o. old female who is ~ 2 weeks out from surgery - left ORIF proximal humerus I discussed with the patient that she can shower and get incision wet, but no submersion of the incision at this time. We discussed that non weight bearing status will remain in effect until at least 6 weeks post surgery as she appears to be getting along and making progress despite this restrictions. Luis removed today and steristrips applied. She may continue to ice for comfort. Osteoporosis- We discussed bone health follow up given her fracture. Will send her to lab today. Given information on bone health, exercise, including weight training, resistance training, core strengthening, calcium and Vitamin D. DEXA ordered. Greater than 20 minutes of this visit was spent discussing bone health and prevention of secondary fracture. Patient should return to clinic in [address] Rodriguez in clinic with new xrays at that time. Treatment plan: 1. X-rays at 6, and 12 weeks postop. 2. Zero to 6 weeks postop: Time Signal Wirer, wrist, elbow range of motion with axillary care and pendulums. Also, passive and active assisted forward elevation and external rotation at the side. 3. Six to 12 weeks postop: Add active range of motion in all directions. 4. Twelve plus weeks postop: Add strengthening. 5. Osteoporosis evaluation and treatment. Questions answered. Pt in agreement w/ tx plan Gabriela Lopez, RN, MANAGER FURNITURE WAITER/WAITRESS HEAD ARD/STEWARDESS SECOND documented in this encounter Plan of Treatment Not on filedocumented as of this encounter Results Vitamin D 25-Hydroxy, Total (07/31/2019 1:37 PM STEWARD/STEWARDESS SECOND) athologist Signature Vitamin D, 52 30 - 80 07/31/2019 [facility] 25-OH, Total ng/mL 2:34 PM STEWARD/STEWARDESS SECOND LABORATORY Specimen Anatomical Collection Method / Collection Time Recei kaylene Time (Source) Location / Volume Laterality Blood Venipuncture / 07/31/2019 1:37 07/31/2019 1:49 Unknown PM STEWARD/STEWARDESS SECOND PM STEWARD/STEWARDESS SECOND Gabriela Lopez RN, MANAGER FURNITURE WAITER/WAITRESS HEAD LAB_1 Performing Organization Address City/[facility]/ZIP [facility] Phon e Number [facility] [address] [place] [address] Intact PTH (07/31/2019 1:37 PM STEWARD/STEWARDESS SECOND) athologist Signature Intact PTH 28 10 - 100 07/31/2019 [facility] pg/mL 2:20 PM STEWARD/STEWARDESS SECOND LABORATORY Specimen Anatomical Collection Method / Collection Time Recei kaylene Time (Source) Location / Volume Laterality Blood Venipuncture / 07/31/2019 1:37 07/31/2019 1:49 Unknown PM STEWARD/STEWARDESS SECOND PM STEWARD/STEWARDESS SECOND Gabriela Lopez RN, MANAGER FURNITURE WAITER/WAITRESS HEAD LAB_1 Performing Organization Address City/[facility] Phon e Number [facility] [address] [place] [address] XR Shoulder Lt 2+ Views (07/31/2019 12:25 PM STEWARD/STEWARDESS SECOND) Anatomical Region Laterality Modality Upper Extremity, Shoulder Computed Radio graphy Specimen (Source) Anatomical Collection Method Collection Time Re ceived Time Location / / Volume Laterality 07/31/2019 12:17 PM STEWARD/STEWARDESS SECOND Impressions 07/31/2019 12:59 PM STEWARD/STEWARDESS SECOND COMPARISON: ??07/16/2019 FINDINGS: ??Plate and screw fixation of proximal humerus fracture without evidence of hardware failure. Alignment is unchanged. Displaced fracture fragment medial to the humeral neck. Overlying skin luis remain in place. Procedure Note John Lockhart MD - 07/31/2019Forma tting of this note might be different from the original. IMPRESSION COMPARISON: 07/16/2019 FINDINGS: Plate and screw fixation of pr oximal humerus fracture without evidence of hardware failure. Alignment is unchanged. Displaced fracture fragment medial to the humeral neck. Overlying skin luis remain in place. Gabriela Lopez RN, MANAGER FURNITURE WAITER/WAITRESS HEAD RAD GD documented in this encounter Visit Diagnoses Diagnosis Closed fracture of proximal end of left humerus, unspecified fracture morphology, initial encounter - Primary Osteoporosis, unspecified osteoporosis t ype, unspecified pathological fracture presence ([facility]) Closed fracture of proximal end of left humerus, unspecified fracture morphology, initial encounter documented in this encounter Care Teams Scoop Driver Relationship Specialty Start Date End Date Lina Meléndez MD PCP - General Internal Medicine 12/20/18[address] [place] [address] documented as of this encounter
--- OUTSIDE RECORDS SUMMARY | 2022-04-05 15:44 | XMS_ITS | Encounter Summary ---
:1945 Author Organization [facility] Address [address] [place] [address] Care Team Providers Name Role Phone Lina Meléndez MD Primary Care Provider Reason for Referral Therapies (Routine) - Closed Specialty Diagnoses / Procedures Referred By Contact Refer red To Contact Occupational Therapy Diagnoses Other closed displaced fracture of proximal end of left humerus, initial encounter Edelmira Rodriguez MD [id number] Hand Therapy [address] [place] [address] [address]. [address] [place] [address] Phone: Fax: Referral ID Status Reason Start Date Expiration Date Visits Requ ested Visits Authorized [id number] Closed 07/19/2019 09/17/2019 1 1 Scheduling Instructions Your provider has recommended an appoint ment with [facility]. You may call [phone] to schedule your appoi ntment. If you do not schedule an appointment within the next 1 to 3 business days, we will call you to help arrange your appointment. We suggest you call your [facility] insurance company about your coverage and benefits for this appointment. herapies (Routine) - Closed Specialty Diagnoses / Procedures Referred By Contact Refer red To Contact Diagnoses Other closed displaced fracture of proximal end of left humerus, initial encounter Edelmira Rodriguez MD [address] [place], [place] [address] Referral ID Status Reason Start Date Expiration Date Visits Requ ested Visits Authorized [id number] Closed 07/19/2019 09/17/2019 1 1 Scheduling Instructions This order is your clinician's recommend ation for a service and is not an insurance referral which authorizes payment. The r ecommended service and/or location may not be covered by your insurance plan. Please c all the number on your insurance card to find out your specific benefits and coverage for the recommended services and/or location. If you need help scheduling the recommen ded services, please ask your clinician's staff to assist you. H UP WORKER Reason for Visit Reason Comments SWELLING Post-Op Problem Encounter Details Date Type Department Care Team Description 07/19/2019 Telephone Specialty Center 3931 Leeann Rodriguez MD SWELLING; Post-Op [facility] [address] [facility] Problem [address] [facility] [address] [phone] Social History Tobacco Use Types Packs/Day Years Used Date Smoking Tobacco: Never Smokeless Tobacco: Never Alcohol Use Standard Drinks/Week Comments Yes 0 (1 standard drink = 0.6 oz pure alcoho l) Sex Assigned at Date Recorded Not on file documented as of this encounter Nursing Notes Michelle Barraza RN - 07/19/2019 3:53 PM CST Action: Input needed and FYI Next Step: Caller is NOT expecting a call back from care team Specific Request(s): 1. Update Kiera calling back from Occupational Therapy group in [place]. States they are not able to get patient into OT until 07/25/19 and will put her on a waitlist. Orders faxed to: Occupational Therapy group in [place] [phone] Artists' Booking Representative verified atient is able to get in sooner to [facility] OT. I gave her the number to schedule and will call Monday morning early to get scheduled on Monday07/22/19. Patient to call after hours over theekend if symptoms worsen. H UP WORKER Lalito Smith - 07/19/2019 11:43 AM CST Maryam calling back with contact info for occupational therapy. Maryam states the messenger floorperson is Renetta Irvin and her number is [phone] H UP WORKER Edelmira Rodriguez MD - 07/19/2019 11:20 AM CST Spoke w the patient. She will call w the phone number of the Occupational Therapy group in [place] near to where she lives. I will then call to see if she can get in today. Edelmira Rodriguez MD H UP WORKER Michelle Barraza RN - 07/19/2019 10:20 AM CST Action: Post-op Problem Next Step: Caller IS expecting a call back from care team and Route to triage pool Specific Request(s): 1. Please advise if patient needs a drain placed, or if patient needs to come in to ED, or other recommendation. 2. Patient is asking why a drain was not placed when in the hospital. DOS 07/16/19 Open reduction, internal fixation left 4-part proximal humerus fracture. Patient calling reports, severe swelling and weeping of upper left arm from multiple sites, unsure if any open wounds. Patient reports normally she wears a woman's t-shirt size medium but now a Mens XLT-shirt is tight on the sleeves. She believes the arm is 3-4 inches larger in diameter. Patient reports black, purple, and red discoloration in fingers and hand of left arm have not worsened since fracture but remain discolored. sensation and movement is intact, but sensation does decrease as swellingin hand increases. Patient was seen in the ED at [facility] last night and ED provider is not concerned with discoloration, but was concerned with amount of swelling and instructed patient to elevated arm and ice. Patient did place arm on table and slightly lowering chest, flexing arm anterior to body for 30 elevated rest for 30 mins and elevating again for30 mins, then slightly elevating arm in similar position in bed with pillow over night. The swelling in hand did come down but is now sta rting to increase today while up. Patient does have hand elevated in sling about 2 inches higher than elbow. pain is mild and controlled with hydromorphone and extra strength tylenol. Patient is icing.Denies impairment of circulation to arm, severe pain, numbness or decreased movement. Future Appointments Date Time Provider Department Center 07/31/2019 1:00 PM Gabriela Lopez, RN, ACADEMIC SUPPORT COORDINATOR MACHINE STRIPER P3931 ORTHO PN 3931 08/28/2019 2:15 PM Edelmira Rodriguez MD P3931 ORTHO PN 3931 H UP WORKER documented in this encounter Plan of Treatment Scheduled Referrals Name Type Priority Associated Diagnoses Order S chedule Hand Occupational Therapy Referral Routine Other closed di splaced Ordered: 07/19/2019 fracture of proximal end of left humerus, initial encounter Hand Occupational Therapy Referral Routine Other closed di splaced Ordered: 07/19/2019 fracture of proximal end of left humerus, initial encounter documented as of this encounter Visit Diagnoses Diagnosis Other closed displaced fracture of proxi mal end of left humerus, initial encounter - Primary documented in this encounter Care Teams Mold Maker Relationship Specialty Start Date End Date Lina Meléndez MD PCP - General Internal Medicine 12/20/181999 [place] [address] documented as of this encounter
--- OUTSIDE RECORDS SUMMARY | 2022-04-05 15:44 | XMS_ITS | Encounter Summary ---
:1945 Author Organization [facility] Address [address] [place] [address] Care Team Providers Name Role Phone Lina Meléndez MD Primary Care Provider Reason for Visit Reason Comments Post-Op Problem Encounter Details Date Type Department Care Team Description 07/21/2019 Nurse Triage Careline Unassigned, Provider Post-Op Problem [address] [place], [place] [address] [place] [address] Social History Tobacco Use Types Packs/Day Years Used Date Smoking Tobacco: Never Smokeless Tobacco: Never Alcohol Use Standard Drinks/Week Comments Yes 0 (1 standard drink = 0.6 oz pure alcoho l) Sex Assigned at Date Recorded Not on file documented as of this encounter Nursing Notes Michelle Houser RN - 07/21/2019 1:[address] Rivera Phoned back at 1:56 PM and states that Maryam should contact Dr. Rodriguez's nurse first thing in the morning to report her symptoms. I phoned Maryam and let her know what the physician's recommendations. She understands and agrees with this plan. Michelle Houser RN S REP Michelle Houser RN - 07/21/2019 1:06 PM CST Reason for Disposition ??? Sounds like a serious complication to the triager Answer Assessment - Initial Assessment Questions 1. SYMPTOM: What's the main symptom you're concerned about? (e.g., pain, fever, vomiting) Swelling and numb thumb 2. ONSET: When did numbness start? today 3. SURGERY: What surgery was performed? ORIF left humerus 4. DATE of SURGERY: When was surgery performed? 07/16 5. ANESTHESIA: What type of anesthesia did you have? (e.g., general, spinal, epidural, local) general 6. PAIN: Is there any pain? If so, ask: How bad is it? (Scale 1-10; or mild, moderate, severe) uncomfortable 7. FEVER: Do you have a fever? If so, ask: What is your temperature, how was it measured, and when did it start? no 8. VOMITING: Is there any vomiting? If yes, ask: How many times? no 9. BLEEDING: Is there any bleeding? If so, ask: How much? and Where? no 10. OTHER SYMPTOMS: Do you have any other symptoms? (e.g., drainage from wound, painful urination,constipation) Swelling of her entire arm. Protocols used: POST-OP SYMPTOMS AND [id number] S REP Michelle Houser RN - 07/21/2019 1:01 PM CST Verified patient identity using three identifiers: Yes Situation/Background (brief explanation of current symptoms/situation): ORIF of left humerus on 07/16. Left thumb numb since early this morning. Swelling in armpit and upper arm. Was not given a sleeve . Whole arm is greater than twice the size of her right arm and it's uncomfortable. Reviewed with patient pertinent medical history(as it related to the call): Yes 07/16 ORIF left humerus by Dr. Edelmira Rodriguez. Reviewed with patient pertinent medications (as they relate to call): Yes see snapshot Reviewed with patient pertinent allergies (as they relate to call).sulfa - see allergy list above PLAN: 1:[address] Michelle Morales who is chain builder loom control for [facility]. 1:[address] Morales again. 1:41 PM I left a voicemail on Dr. Morales's cell phone. 1:45 PM I phoned the [facility] to verify that this physician is chain builder loom control and to have them try to reach her. S REP Nikki Chong - 07/21/2019 1:00 PM CST Verified patient identity using three identifiers: Yes Caller's relationship to patient: Self At which care system or clinic is the patient normally seen? Other (Clinic Name) [facility] Symptoms Describe the reason for call/symptoms (include location and duration if applicable): Left arm surgery on Monday - has numbness in fingers Plan:Caller transferred directly to CareLine nurse. S REP documented in this encounter Plan of Treatment Not on filedocumented as of this encounter Visit Diagnoses Not on filedocumented in this encounter Care Teams Keymodule Assembly Supervisor Relationship Specialty Start Date End Date Lina Meléndez MD PCP - General Internal Medicine [address] [place] [address] documented as of this encounter
--- OUTSIDE RECORDS SUMMARY | 2022-04-05 15:44 | XMS_ITS | Encounter Summary ---
:1945 Author Organization [facility] Address [address], [place] [address] Care Team Providers Name Role Phone Lina Meléndez MD Primary Care Provider Reason for Referral Therapies (Routine) - Closed Specialty Diagnoses / Procedures Referred By Contact Refer red To Contact Diagnoses Closed fracture of proximal end of left humerus with routine healing, unspecified fracture morphology, subsequent encounter Edelmira Rodriguez MD [address] [place], [place] [address] Referral ID Status Reason Start Date Expiration Date Visits Requ ested Visits Authorized [id number] Closed 09/20/2019 11/19/2019 1 1 Scheduling Instructions This order is [...] ask your clinician's staff to assist you. Reason for Visit Reason Comments APPOINTMENT REQUEST Encounter Details Date Type Department Care Team Description 08/28/2019 Telephone Specialty Center [facility] Leeann Rodriguez MD APPOINTMENT REQUEST [facility] [address] [place] [id number] [phone] Social History Tobacco Use Types Packs/Day Years Used Date Smoking Tobacco: Never Smokeless Tobacco: Never Alcohol Use Standard Drinks/Week Comments Yes 0 (1 standard drink = 0.6 oz pure alcoho l) Sex Assigned at Date Recorded Not on file documented as of this encounter Nursing Notes Holly Cartwright RN - 09/20/2019 2:46 PM CDT Orders faxed to [place] [facility] as requested. Edelmira Rodriguez MD - 09/20/2019 2:35 PM CDT I spoke with Maryam. She is doing great. She is having very little pain. She is able to use her shoulder in a manner that results in no limitations for her. 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 Rather, she will make an appointment sometime in the future if she has questions or concerns. In the meantime, I will fax recommendations to her physical [facility] [place] [facility]. Edelmira Rodriguez MD Michell West - 09/19/2019 2:08 PM CDT Patient called back and said any time after 11 am will work for her tomorrow. She is checking on herphone to see why you were getting cut off and WILL have her phone with her tomorrow after 11. Daniella Osuna RN - 08/28/2019 2:48 PM CST Action: Work-in needed Next Step: Caller IS expecting a call back from care team, route to Call Center to contact patient for follow-up appointment Specific Request(s): 1. Route work-in availability to Call Center Pool to contact patient to book for 4 week follow-up from her 08/25 appointment. CONTROL MANAGER Callie Das - 08/28/2019 2:30 PM CST Has the patient recently had surgery or an injury? Yes. Date of Surgery: July 16, 2019 Type of Surgery: Closed fracture of left proximal humerus How may we help you today? Pt was told to schedule an appt 12wks from 07/16/19, however the soonest they were able to get in for an appt was 10/23/19. Pt would like to know if there is anyway they can befit into the schedule two weeks earlier? Is it okay to leave detailed message on your voicemail? Yes [Fuel Handler/Appt Center: If this call is after 3 p.m., communicate to patient: If we are not able to get back to you by the end of the day and your symptoms worsen please contact the Careline] CONTROL MANAGER documented in this encounter Plan of Treatment Scheduled Referrals Name Type Priority Associated Diagnoses [facility] Referral Routine Closed fracture of proxi mal Ordered: 09/20/2019 end of left humerus with routine healing, unspecified fracture morphology, subsequent encounter documented as of this encounter Visit Diagnoses Diagnosis Closed fracture of proximal end of left humerus with routine healing, unspecified fracture morphology, subsequent encounte r - Primary documented in this encounter Care Teams Account Contact Associate Relationship Specialty Start Date End Date Lina Meléndez MD PCP - General Internal Medicine 12/[address] [place] [address] documented as of this encounter
--- OUTSIDE RECORDS SUMMARY | 2022-04-05 15:44 | XMS_ITS | Encounter Summary ---
:1945 Author Organization [facility] Address [address] [place] [address] Care Team Providers Name Role Phone Lina Meléndez MD Primary Care Provider Reason for Visit Reason Comments APPOINTMENT REQUEST Encounter Details Date Type Department Care Team Description 08/12/2019 Telephone Specialty Center [address] Leeann Rodriguez MD APPOINTMENT REQUEST [facility] [address] [facility] [address] [place] [id number] [phone] Social History Tobacco Use Types Packs/Day Years Used Date Smoking Tobacco: Never Smokeless Tobacco: Never Alcohol Use Standard Drinks/Week Comments Yes 0 (1 standard drink = 0.6 oz pure alcoho l) Sex Assigned at Date Recorded Not on file documented as of this encounter Nursing Notes Lesly Garcia RN - 08/12/2019 10:07 AM CST Called patient and rescheduled her appointment for MondayAugust 25 at 9:30. She was in agreement with this plan. Joan Jones - 08/12/2019 9:23 AM CST Has the patient recently had surgery or an injury? Yes. Date of Surgery: July 16, 2019 Type of Surgery: ORIF L prox humerus How may we help you today? Patient called requesting an appointment with Dr. Rodriguez or her PA the first week of August. She will be at her 6 week post op point and will new orders for PT. PT advised that they would not be able to go any further with her at that time. Is it okay to leave detailed message on your voicemail? Yes [Merchandise Adjustment Clerk/Appt Center: If this call is after 3 p.m., communicate to patient: If we are not able to get back to you by the end of the day and your symptoms worsen please contact the Careline] MANAGER documented in this encounter Plan of Treatment Not on filedocumented as of this encounter Visit Diagnoses Not on filedocumented in this encounter Care Teams Cut Off Machine Operator Relationship Specialty Start Date End Date Lina Meléndez MD PCP - General Internal Medicine [address] [place] [address] documented as of this encounter
--- OUTSIDE RECORDS SUMMARY | 2022-04-05 15:44 | XMS_ITS | Encounter Summary ---
:1945 Author Organization [facility] Address [address] [place] [address] Care Team Providers Name Role Phone Lina Meléndez MD Primary Care Provider Reason for Visit Reason Comments Shoulder Problem Therapies (Routine) - Closed Specialty Diagnoses / Procedures Referred By Contact Refer red To Contact Occupational Therapy Diagnoses Other closed displaced fracture of proximal end of left humerus, initial encounter Edelmira Rodriguez MD [id number] Hand Therapy [address] [facility] [address] [place], [place] [address]. [address] [place] [address] Phone: Fax: Referral ID Status Reason Start Date Expiration Date Visits Requ ested Visits Authorized [id number] Closed 07/19/2019 09/17/2019 1 1 Encounter Details Date Type Department Care Team Description 07/22/2019 Office Visit [facility] Robert Jara fracture of proximal end of left humerus, unspecified fracture morphology, initial encounter (Primary Dx); Center - Occupational M, OTR/L S/P ORIF (open reduction internal fixati on) fracture; Therapy [address] [place] Localized edema [address] [place] [address] [phone] Social History Tobacco Use Types Packs/Day Years Used Date Smoking Tobacco: Never Smokeless Tobacco: Never Alcohol Use Standard Drinks/Week Comments Yes 0 (1 standard drink = 0.6 oz pure alcoho l) Sex Assigned at Date Recorded Not on file documented as of this encounter Progress Notes Marek Robert Maria De Jesus, OTR/L - 07/22/2019 10:30 AM CST Encounter Date 07/22/2019 Pt 1945 Shawna Zheng [facility] Hand Occupational Therapy - Evaluation/Plan of Care Visit Number: 1 Payor: [facility] / Plan: [facility] MEDICARE / Product Type: Medicare / Initial Certification Period: 07/22/2019 to 10/20/19 Referring Provider: Edelmira Rodriguez Referring Diagnosis: Left Shoulder Four Part Proximal Humerus Fracture Visit Diagnosis: 1. Closed fracture of proximal end of left humerus, unspecified fracture morphology, initial encounter 2. S/P ORIF (open reduction internal fixation) fracture 3. Localized edema Date of Surgery/Procedure: 07/16/2019; Left Open reduction, internal fixation of left 4-part proximalhumerus fracture. Precautions: ORIF shoulder protocol, PROM only of shoulder at side FF 120, ER 30, type 2 diabetes, depression, on Plavix Hand Dominance: Right Orders: Evaluate and treat Onset Date: 07/04/2019 fall with left proximal humerus fracture, ORIF surgery 07/16/2019 SUBJECTIVE Reason for Visit: Patient comes to hand therapy today secondary to left proximal humerus fracture, ORIF of left 4 part humerus fracture and now has a lot of swelling and some bruising in her entire left arm. Patient reports that her left arm feels really heavy and uncomfortable but she is not in any significant pain. I am just taking Tylenol for pain. Patient reports that sleeping is extremely difficult. Patient is not using her left arm in ADL's and her is helping her get dressed. Patientreports she fractured her arm when walking the dog and she slipped on ice. Patient Therapy Goals: I want something to help with the swelling. I want to do my therapy in [place] but they didn't have any openings. Past Medical History: Patient Active Problem List Diagnosis ??? Osteoarthrosis, unspecified whether generalized or localized, unspecified site ??? Type 2 diabetes mellitus without complication, with long-term current use of insulin (HRC) ??? Asthma (HRC) ? ? Hyperlipidemia LDL goal <70 (HRC) ??? Benign neoplasm of colon ??? Psoriasis ??? Arthritis of carpometacarpal (CMC) joint of right thumb ??? Cerebrovascular accident (HRC) ??? Backache ??? GERD (gastroesophageal reflux disease) ??? HTN (hypertension) (HRC) ??? Hypomagnesemia ??? Hyponatremia ??? Major depressive disorder, recurrent episode (HRC) ??? TC (obstructive sleep apnea) ??? Spinal stenosis of lumbar region without neurogenic claudication ??? Closed fracture of left proximal humerus Previous Treatment: Surgery(s): 4 part ORIF proximal humerus surgery on 07/16/2019 Living Environment: Lives independently. Spouse present during this therapy session and appears supportive. Work/Leisure/Hobbies: Retired./Working out/treadmill. Pain: pain with activity 01/02 Pain location: shoulder and entire left arm Pain quality: Aching and poking Sleep interruptions: Very difficult OBJECTIVE POD 0 week(s) 6 day(s) post operative ROM: Shoulder PROM in supine: 07/22/2019 left Flexion 110 Abduction NT External rotation at 90 abduction 30 Internal rotation at 90 abduction Hand 2 inches from stomach with wrist straight EDEMA: Significant left upper extremity edema. See Doc Flow sheets for specific measurements. Left arm total calculation= 3016.84 ml SENSATION: Reports numbness in left thumb INCISION: covered, no signs of drainage or infection. Clinical Global Impression: Patient rates their overall pain level with activity Date 07/22/2019 Score 7 Outcomes: 07/23/2019 OT - Musculoskeletal - Shoulder QuickDASH (0-100, 0 being best): 31.81 TODAY'S TREATMENT INTERVENTION: THERAPEUTIC EXERCISES (15 minutes): -Performed and Instructed: The patient was instructed in, performed and provided with written handouts for the following: Shoulder: codman's pendulum, hand AROM, wrist AROM, forearm AROM and elbow AROM -Performed Only: The following exercises were performed today in clinic: Shoulder: PROM MANUAL (20 minutes) Instructed patient and in short stretch bandaging. Instructed patient and that it isthe laying of bandaging that helps decrease the edema and not to pull the bandages too tight. Issuedpatient and home program. Bandaged patient's left arm from hand to axilla: stockinette, artiflex, 6 cm Rosidal short stretch bandage from hand to just distal to elbow crease, 8 cm Rosidal shortstretch bandage from just above wrist to axilla with X at elbow crease. Applied size F tubigrip over bandages, applied size 1 x-span to finger and coban to thumb. Therapeutic Activity: (10 minutes) -Therapist provided patient education on the following topics: anatomy, diagnosis, therapy protocol,precautions for just PROM to shoulder. Educated in different sleep positions with shoulder supported. Instructed in how to pushpa t- shirt one handed. Instructed to wear sling when up and about and when sleeping but to take off if sitting with arm supported and move elbow. -Home modalities: patient was instructed in the use of cold pack/ice mobilization Timed Code Treatment Minutes: 45 minutes Total Treatment Time: 60 minutes ASSESSMENT Therapist Impression/Summary: Patient has significant left upper extremity edema after proximal humerus fracture and ORIF. Patient will follow ORIF protocol. Continue skilled Hand OT for assessment, pteducation, exercises, manual therapy, and progression of personalized HEP to maximize function and independent with I/ADLS. Patient does wish to continue her care in [place] when they have openings. Occupational Therapy Evaluation Complexity: Occupational Profile and History: High Complexity: 3 or more personal factors and/or comorbidities that impact plan of care: 07/16/2019; Left Open reduction, internal fixation of left 4-part proximal humerus fracture. Precautions: ORIF shoulder protocol, PROM only of shoulder at side FF 120, ER 30, type 2 diabetes, depression, on Plavix Clinical Examination: Moderate Complexity: Addressed 3 elements from body structures and functions (see above), and/or functional limitations as noted below. Clinical Decision Making: Moderate Complexity Overall Complexity Rating: Moderate Significant Impairments: pain, edema, ROM - decreased, strength - decreased, wound open/healing, sensory disturbance, fracture healing and post-op restrictions Functional Limitations: Patient reports pain and/or difficulty performing the following tasks/activities: dressing, grooming and hygiene, reaching, sleeping. Goals/Functional Outcomes: -The patient will be able to dress with minimal to no difficulty in 30 days -The patient will be able to sleep with minimal to no difficulty in 60 days -The patient will be able to reach into cupboard with minimal to no difficulty in 90 days Potential Barriers to Goal Achievement or Learning: Rehab prognosis is good to achieved stated goals. Mood, orientation, and behavior were appropriate. Patient was alert and oriented. No apparent barriers to learning. PLAN Planned Intervention/Education: AROM, PROM, Joint mobilization, Strength, Home exercise program, Wound care, Scar management, Edema control, Diagnosis education, Modalities: Cold pack, interferential, TENS unit, hot pack, Ultrasound. Frequency: 2 x week Duration: 90 days Discharge Plan: Patient will be discharge from therapy when goals are achieved or patient plateaus in progress. Informed Consent: Patient and/or family in agreement with the care plan. Plan for Next Treatment: assess response to treatment, AROM for hand, wrist, forearm and elbow, PROMshoulder following precautions, edema control, review home exercise program The labor specialist is completed by the therapist and the referring clinician's electronic signature certifies medical necessity for the plan above. ONNEL WORKER documented in this encounter Plan of Treatment Scheduled Referrals Name Type Priority Associated Diagnoses Order S chedule Hand Occupational Therapy Referral Routine Other closed di splaced Ordered: 07/19/2019 fracture of proximal end of left humerus, initial encounter documented as of this encounter Visit Diagnoses Diagnosis Closed fracture of proximal end of left humerus, unspecified fracture morphology, initial encounter - Primary S/P ORIF (open reduction internal fixati on) fracture Localized edema Edema documented in this encounter Care Teams Investigation Division Lieutenant Relationship Specialty Start Date End Date Lina Meléndez MD PCP - General Internal Medicine [address] [place] [address] documented as of this encounter
--- OUTSIDE RECORDS SUMMARY | 2022-04-05 15:44 | XMS_ITS | Encounter Summary ---
:1945 Author Organization [facility] Address [address], [place] [address] Care Team Providers Name Role Phone Lina Meléndez MD Primary Care Provider Reason for Visit Procedure/Equipment (Routine) - Incomplete Specialty Diagnoses / Procedures Referred By Contact Refer red To Contact Diagnoses Closed fracture of proximal end of left humerus with routine healing, unspecified fracture morphology, subsequent encounter Edelmira Rodriguez MD Procedures XR Shoulder Lt 2+ Views [address] [place], [place] [address] Referral ID Status Reason Start Date Expiration Date Visits V isits Requested Authorized [id number] Incomplete 08/13/2019 11/11/2020 1 1 Encounter Details Date Type Department Care Team Description 08/26/2019 Ancillary Specialty Center Edelmira Rodriguez, Closed fracture of Procedure 3931 Radiology MD proximal end of X-ray 3931 [facility] left humerus, 39[address] [facility]. unspecified [address], [place] fracture [facility], [address] morphology, [place] [address] encounter (Work) Social History Tobacco Use Types Packs/Day Years Used Date Smoking Tobacco: Never Smokeless Tobacco: Never Alcohol Use Standard Drinks/Week Comments Yes 0 (1 standard drink = 0.6 oz pure alcoho l) Sex Assigned at Date Recorded Not on file documented as of this encounter Plan of Treatment Not on filedocumented as of this encounter Procedures Procedure Name Priority Date/Time Associated Diagnosis Comme nts XR SHOULDER LT 2+ Routine 08/26/2019 9:42 AM Closed fracture o f Results for this VIEWS FITTING ROOM ATTENDANT proximal end of left procedu re are in humerus, unspecified the res ults fracture morphology, section . initial encounter documented in this encounter Results XR Shoulder Lt 2+ Views (08/26/2019 9:42 AM FITTING ROOM ATTENDANT) Anatomical Region Laterality Modality Upper Extremity, Shoulder Digital Radiog alexandra Specimen (Source) Anatomical Collection Method Collection Time Re ceived Time Location / / Volume Laterality 08/26/2019 9:32 AM FITTING ROOM ATTENDANT Impressions 08/26/2019 10:19 AM FITTING ROOM ATTENDANT COMPARISON: ??07/31/2019 FINDINGS: ??No change in alignment [...] encounter documented in this encounter Care Teams Pigment Processor Relationship Specialty Start Date End Date Lina Meléndez MD PCP - General Internal Medicine [address] [place] [address] documented as of this encounter
--- OUTSIDE RECORDS SUMMARY | 2022-04-05 15:44 | XMS_ITS | Encounter Summary ---
:1945 Author Organization [facility] Address [address], [place] [address] Care Team Providers Name Role Phone Lina Meléndez MD Primary Care Provider Reason for Visit Procedure/Equipment (Routine) - Incomplete Specialty Diagnoses / Procedures Referred By Contact Refer red To Contact Diagnoses Closed fracture of proximal end of left humerus, unspecified fracture morphology, initial encounter Gabriela Lopez, Procedures XR Shoulder Lt 2+ Views RN, NURSE COORDINATOR CLINICAL PSYCHOLOGIST [facility] [address] [place], [place] [address] Referral ID Status Reason Start Date Expiration Date Visits V isits Requested Authorized [id number] Incomplete 07/23/2019 10/21/2020 1 1 Encounter Details Date Type Department Care Team Description 07/31/2019 [facility] Gabriela Lopez Closed fracture of Procedure 39[address] Rad[facility] Ella Crawford, ROCCO, NURSE COORDINATOR proximal end of X-ray CLINICAL PSYCHOLOGIST [facility] left humerus, [address] [facility]. [address] [facility] uns pecified S. [address] fracture [place], [place] [id number] encounter Social History Tobacco Use Types Packs/Day [...] Comme nts XR SHOULDER LT 2+ Routine 07/31/2019 12:25 PM Closed fracture of Results for this VIEWS FUNERAL ASSISTANT proximal end of left procedu re are in humerus, unspecified the res ults fracture morphology, section . initial encounter documented in this encounter Results XR Shoulder Lt 2+ Views (07/31/2019 12:25 PM FUNERAL ASSISTANT) Anatomical Region Laterality Modality Upper Extremity, Shoulder Computed Radio graphy Specimen (Source) Anatomical Collection Method Collection Time Re ceived Time Location / / Volume Laterality 07/31/2019 12:17 PM FUNERAL ASSISTANT Impressions 07/31/2019 12:59 PM FUNERAL ASSISTANT COMPARISON: ??07/16/2019 FINDINGS: ??Plate and screw fixation of proximal humerus fracture without evidence of hardware failure. Alignment is unchanged. Displaced fracture fragment medial to the humeral neck. Overlying skin nahomy remain in place. Procedure Note John Lockhart MD - 07/31/2019Forma tting of this note might be different from the original. IMPRESSION COMPARISON: 07/16/2019 FINDINGS: Plate and screw fixation of pr oximal humerus fracture without evidence of hardware failure. Alignment is unchanged. Displaced fracture fragment medial to the humeral neck. Overlying skin nahomy remain in place. Gabriela Lopez RN, NURSE COORDINATOR CLINICAL PSYCHOLOGIST [facility] documented in this encounter Visit Diagnoses Diagnosis Closed fracture of proximal end of left humerus, unspecified fracture morphology, initial encounter documented in this encounter Care Teams Highway Painter Helper Relationship Specialty Start Date End Date Lina Meléndez MD PCP - General Internal Medicine [address] [place] [address] documented as of this encounter
--- OUTSIDE RECORDS SUMMARY | 2022-04-05 15:44 | XMS_ITS | Encounter Summary ---
:1945 Author Organization [facility] Address [address], [place] [address] Care Team Providers Name Role Phone Lina Meléndez MD Primary Care Provider Encounter Details Date Type Department Care Team Description 07/22/2019 [facility] Leeann Jara, Occupational Therapy OTR/L [address] [facility] [address] [place] [address] [place] [address] [phone] (Wo rk) Social History Tobacco Use Types [...] on filedocumented in this encounter Care Teams [id number] [id number] Armor Crewman Relationship Specialty Start Date End Date Lina Meléndez MD PCP - General Internal Medicine [address] [place] [address] documented as of this encounter
--- OUTSIDE RECORDS SUMMARY | 2022-04-05 15:44 | XMS_ITS | Encounter Summary ---
:1945 Author Organization [facility] Address [address] [place] [address] Care Team Providers Name Role Phone Lina Meléndez MD Primary Care Provider Reason for Visit Reason Comments Orders Needed Encounter Details Date Type Department Care Team Description 07/23/2019 Telephone Specialty [facility] 3931 Edelmira Lopez MD Orders Needed Orthopedics 3931 [facility] [address] [place] [address] [place], [place] [address] [phone] Social History Tobacco Use Types Packs/Day Years Used Date Smoking Tobacco: Never Smokeless Tobacco: Never Alcohol Use Standard Drinks/Week Comments Yes 0 (1 standard drink = 0.6 oz pure alcoho l) Sex Assigned at Date Recorded Not on file documented as of this encounter Nursing Notes Carolina Loco RN - 07/23/2019 12:52 PM CST Per managed care, patient may go to an external PT facility Patient to check with her insurance to verify that [facility] is covered. Message left on patient's voicemail to call [facility]. PT orders have been faxed. Maryam Bush - 07/23/2019 11:49 AM CST Has the patient recently had surgery or an injury? Yes. Date of Surgery: July 16, 2019 Type of Surgery: L humerus fx What referral/order is being requested: Patient would like her physical therapy referral faxed to [facility] Is it okay to leave detailed message on your voicemail? Yes [Mapping Technician/Appt Center: If this call is after 3 p.m., communicate to patient: If we are not able to get back to you by the end of the day and your symptoms worsen please contact the Careline] [Mapping Technician: Please inform patient that a referral does not guarantee insurance coverage. Patients should call the member services number on the back of their insurance ID card to understand whatcoverage for the services they are requesting.] KLOAD CHECKER documented in this encounter Plan of Treatment Not on filedocumented as of this encounter Visit Diagnoses Not on filedocumented in this encounter Care Teams Project Management Intern Relationship Specialty Start Date End Date Lina Meléndez MD PCP - General Internal Medicine [address] [place] [address] documented as of this encounter
--- OUTSIDE RECORDS SUMMARY | 2022-04-05 15:44 | XMS_ITS | Encounter Summary ---
:1945 Author Organization [facility] Address [address] [place] [address] Care Team Providers Name Role Phone Lina Meléndez MD Primary Care Provider Reason for Visit Reason Comments Post-Op Follow Up Call Encounter Details Date Type Department Care Team Description 07/18/2019 Telephone Specialty Center 3931 Leeann Rodriguez MD Post-Op Follow Up Call [facility] [address] [place] [address] [phone] Social History Tobacco Use Types Packs/Day Years Used Date Smoking Tobacco: Never Smokeless Tobacco: Never Alcohol Use Standard Drinks/Week Comments Yes 0 (1 standard drink = 0.6 oz pure alcoho l) Sex Assigned at Date Recorded Not on file documented as of this encounter Nursing Notes Yuko Griffin RN - 07/18/2019 11:41 AM CST Called patient for post-operative follow up, no answer. Left voicemail for patient to call to [facility] with any post-op questions or concerns. IC RELATIONS CONSULTANT documented in this encounter Plan of Treatment Not on filedocumented as of this encounter Visit Diagnoses Not on filedocumented in this encounter Care Teams Cross Tie Tram Loader Relationship Specialty Start Date End Date Lina Meléndez MD PCP - General Internal Medicine [address] [place] [address] documented as of this encounter
--- OUTSIDE RECORDS SUMMARY | 2022-04-05 15:44 | XMS_ITS | Encounter Summary ---
:1945 [facility] Address [address] [address] Care Team Providers Name Role Phone Lina Meléndez MD Primary Care Provider Encounter Details Date Type Department Care Team Description 09/10/2020 Notes/Orders Specialty Center 3931 Leeann Rodriguez MD [facility] [address] [facility] [address] [place] [address] [place] [address] [phone] Social History Tobacco Use Types Packs/Day Years [...] on filedocumented in this encounter Care Teams Wrapper Hand Relationship Specialty Start Date End Date Lina Meléndez MD PCP - General Internal Medicine [address] [place] [address] documented as of this encounter
--- OUTSIDE RECORDS SUMMARY | 2022-04-05 15:44 | XMS_ITS | Encounter Summary ---
:1945 Author Organization [facility] Address [address] [place] [id number] Care Team Providers Name Role Phone Lina Meléndez MD Primary Care Provider Reason for Referral Therapies (Routine) - Incomplete Specialty Diagnoses / Procedures Referred By Contact Refer red To Contact Diagnoses S/P ORIF (open reduction internal fixation) fracture Other closed nondisplaced fracture of proximal end of left humerus, initial encounter Matt Leavitt PA-C [address] [place], [place] [address] Referral ID Status Reason Start Date Expiration Date Visits V isits Requested Authorized [id number] Incomplete 07/17/2019 09/15/2019 1 1 Scheduling Instructions This order is [...] ask your clinician's staff to assist you. FORMER (Routine) - Closed Specialty Diagnoses / Procedures Referred By Contact Refer red To Contact Diagnoses Pain Shortness of breath Nicole Bey APRN, Procedures Echocardiogram XM1 TANK DRIVER [address] [place] [address] Referral ID Status Reason Start Date Expiration Date Visits Requ ested Visits Authorized [id number] Closed 07/17/2019 10/15/2020 1 1 FORMER (Routine) - Closed Specialty Diagnoses / Procedures Referred By Contact Refer red To Contact Procedures Larisa Gaines MD ECG 12 LEAD INPATIENT [address] [place] [address] Referral ID Status Reason Start Date Expiration Date Visits Requ ested Visits Authorized [id number] Closed 07/17/2019 10/15/2020 1 1 FORMER (Routine) - Closed Specialty Diagnoses / Procedures Referred By Contact Refer red To Contact Procedures Daria Peng APRN, KAI ECG 12 Lead Inpatient [address] [place], [place] [address] Referral ID Status Reason Start Date Expiration Date Visits Requ ested Visits Authorized [id number] Closed 07/16/2019 10/14/2020 1 1 FORMER Procedure/Equipment (Routine) - Incomplete Specialty Diagnoses / Procedures Referred By Contact Refer red To Contact Procedures Larisa Gaines MD US VENOUS BILAT LOWER EXTREM [address] [place] [address] Referral ID Status Reason Start Date Expiration Date Visits V isits Requested Authorized [id number] Incomplete 07/16/2019 10/14/2020 1 1 FORMER (Routine) - Closed Specialty Diagnoses / Procedures Referred By Contact Refer red To Contact Procedures Gabriela Lopez Echocardiogram RN, CREDIT AND COLLECTION MANAGER XM1 TANK DRIVER [address] [place], [place] [address] Referral ID Status Reason Start Date Expiration Date Visits Requ ested Visits Authorized [id number] Closed 07/16/2019 10/14/2020 1 1 Electronically signed by Gabriela Lopez RN, CREDIT AND COLLECTION MANAGER XM1 TANK DRIVER at 07/16/2019 4:18 PM CLUB FORMER (Routine) - Closed Specialty Diagnoses / Procedures Referred By Contact Refer red To Contact Procedures Gabriela Lopez, Physical Therapy to Evaluate RN, CREDIT AND COLLECTION MANAGER CN P and Treat Gait and transfer [address] [facility] [place], [place] [address] Strengthening as needed Post Phone: Operative Day # (Specify) twice a day. Referral ID Status Reason Start Date Expiration Date Visits Requ ested Visits Authorized [id number] Closed 07/16/2019 10/14/2020 1 1 Electronically signed by Gabriela Lopez RN, CREDIT AND COLLECTION MANAGER XM1 TANK DRIVER at 07/16/2019 4:18 PM CSTProcedure/Equipment (Routine) - Incomplete Specialty Diagnoses / Procedures Referred By Contact Refer red To Contact Procedures Gabriela Lopez, XR Shoulder Lt 2+ Views RN, CREDIT AND COLLECTION MANAGER XM1 TANK DRIVER [address] [place], [place] [address] Referral ID Status Reason Start Date Expiration Date Visits V isits Requested Authorized [id number] Incomplete 07/16/2019 10/14/2020 1 1 Electronically signed by Gabriela Lopez RN, CREDIT AND COLLECTION MANAGER XM1 TANK DRIVER at 07/16/2019 4:18 PM CLUB FORMER (Routine) - Closed Specialty Diagnoses / Procedures Referred By Contact Refer red To Contact Procedures Edelmira Rodriguez MD ECG 12 Lead Inpatient [address] [place], [place] [address] Referral ID Status Reason Start Date Expiration Date Visits Requ ested Visits Authorized [id number] Closed 07/16/2019 10/14/2020 1 1 FORMER Reason for Visit Auth/Cert Specialty Diagnoses / Procedures Referred By Contact Refer red To Contact Diagnoses Closed fracture of proximal end of left humerus, unspecified fracture morphology, initial encounter Procedures OPEN REDUCTION INTERNAL FIXATION PROXIMAL HUMERUS FRACTURE Referral ID Status Reason Start Date Expiration Date Visits Requ ested Visits Authorized [id number] 1 1 Encounter Details Date Type Department Care Team Description 07/16/2019 - [facility] Ortho Michael Edelmira S/P IDRIS F (open reduction internal fixation) fracture (Primary Dx); 07/17/2019 Encounter Med Surg MD Josey Pain; [address] Other close d nondisplaced fracture of proximal end of left humerus, initial encounter; [address] Shortness of breath; [facility], [facility], Cerebrov ascular accident (CVA), unspecified mechanism (HRC); [place] [address] [place] [address] Hypertension, unspecified type; [phone] Hyperlipidemia LDL goal <70 (Work) Social History Tobacco Use Types Packs/Day Years Used Date Smoking Tobacco: Never Smokeless Tobacco: Never Alcohol Use Standard Drinks/Week Comments Yes 0 (1 standard drink = 0.6 oz pure alcoho l) Sex Assigned at Date Recorded Not on file documented as of this encounter Last Filed Vital Signs Vital Sign Reading Time Taken Comments Blood Pressure 147/63 07/17/2019 2:34 PM CLUB FORMER Pulse 75 07/17/2019 2:34 PM CLUB FORMER Temperature 36.7 ??C (98.1 ??F) 07/17/2019 2:34 PM CLUB FORMER Respiratory Rate 18 07/17/2019 2:34 PM CLUB FORMER Oxygen Saturation 99% 07/17/2019 2:34 PM CLUB FORMER Inhaled Oxygen Concentration - - Weight 75 kg (165 lb 6.4 oz) 07/16/2019 10:19 AM CLUB FORMER Height 165.1 cm (5' 5) 07/16/2019 10:19 AM CLUB FORMER Body Mass Index 27.52 07/16/2019 10:19 AM CLUB FORMER documented in this encounter Discharge Summaries Matt Leavitt PA-C - 07/17/2019 11:51 AM CST Ortho Discharge Summary Admission Date: 07/16/2019 Discharge Date: 07/17/19 Admitting Diagnosis: Closed fracture of proximal end of left humerus, unspecified fracture morphology, initial encounter [S4] Discharge diagnosis: S/p L proximal humerus ORIF Procedure: Procedure(s) (LRB): OPEN REDUCTION INTERNAL FIXATION PROXIMAL HUMERUS FRACTURE (Left) Date of Procedure: 07/16/2019 Surgeon: Michael Disposition: home Code Status: Full Discharge condition: stable HPI: Patient is a 73 y.o., she who presents with a left proximal humerus fracture for scheduled ORIF. Forfull details please refer to Dr. Rodriguez's notes. Surgical management was recommended and patient underwent Procedure(s) (LRB): OPEN REDUCTION INTERNAL FIXATION PROXIMAL HUMERUS FRACTURE (Left). Patient today doing ok. Pain is moderate and controlled better now. She denies CP, SOB, dizziness, numbness/tingling, or issues with sling. Has had recent increased bilateral lower extremity swelling and shortness of breath. Did not want an advanced cardiac workup with an echo in the hospital. Will defer to PCP and follow up in 1-2 weeks. Hospital Course: Patient was admitted following the above noted procedure. Procedure was without complication. For full details please refer to operative note. Patient received routine selena-operative antibiotic and DVTprophylaxis. she was evaluated by physical therapy and will discharge to home in stable condition. Consults: Patient was followed as an inpatient by a medical consultation. Significant Studies: Lab Results Component Value Date Hemoglobin 8.0 (L) 07/17/2019 Hemoglobin 9.1 (L) 07/16/2019 Hemoglobin 9.5 (L) 07/16/2019 Lab Results Component Value Date Creatinine 0.65 07/17/2019 BUN 16 07/17/2019 Sodium 131 (L) 07/17/2019 Potassium 3.3 (L) 07/17/2019 Chloride 98 07/17/2019 CO2 25 07/17/2019 Recent Labs 07/17/19 0749 HGB 8.0* No results for input(s): INR, PTT in the last 24 hours. Invalid input(s): PT I/O last 3 completed shifts: In: 1290 [Oral:180; IV:1110] Out: 2150 [Urine:2000] Active Problems: Principal Problem: Closed fracture of left proximal humerus Past Medical Diagnoses: Patient Active Problem List Diagnosis ??? Osteoarthrosis, [...] ??? Closed fracture of left proximal humerus Medications: Medication List START taking these medications acetaminophen 500 MG tablet Commonly known as: TYLENOL Take 2 Tablets by mouth three times a day. 24 hour limit of acetaminophen (TYLENOL) is 4000mg. Indications: Pain aspirin EC 81 MG enteric coated tablet Take 2 Tablets by mouth daily for 42 days. HYDROmorphone 2 MG tablet Commonly known as: DILAUDID Take 1-2 Tablets by mouth every 4 hours as needed for Pain. Take one tab for pain rating 4-7, take two tabs for pain rating 8-10. senna 8.6 MG tablet Commonly known as: SENOKOT Take 1 Tablet by mouth two times a day. Take while on narcotics. Hold for loose stools. Indications:Constipation CHANGE how you take these medications insulin glargine 100 UNIT/ML injection Commonly known as: LANtus Inject 18 Units subcutaneously nightly. LW Comment:info per pt, Dr.Tom Dye What changed: when to take this CONTINUE taking these medications atorvastatin 10 MG tablet Commonly known as: LIPITOR cloNIDine 0.3 MG tablet Commonly known as: CATAPRES clopidogrel 75 MG tablet Commonly known as: PLAVIX fluticasone propionate 50 MCG/ACT nasal solution Commonly known as: FLONASE insulin lispro 100 UNIT/ML injection vial Commonly known as: HumALOG magnesium oxide 400 MG tablet Commonly known as: MAG-OX ondansetron 4 MG tablet Commonly known as: ZOFRAN Take 2 Tablets by mouth every 8 hours as needed. valACYclovir 500 MG tablet Commonly known as: VALTREX zolpidem 5 MG tablet Commonly known as: AMBIEN STOP taking these medications oxyCODONE-acetaminophen 5-325 MG tablet Commonly known as: PERCOCET Where to Get Your Medications These medications were sent to [facility] [address] [place] [id number] ?? acetaminophen 500 MG tablet ?? aspirin EC 81 MG enteric coated tablet ?? HYDROmorphone 2 MG tablet ?? senna 8.6 MG tablet Discharge Exam: BP 126/54 Pulse 64 Temp 36.8 ??C (98.2 ??F) (Oral) Resp 18 Ht 1.651 m (5' 5) Wt 75 kg (165 lb 6.4 oz) SpO2 99% BMI 27.52 kg/m?? Normal exam - Patient is in no acute distress. Patient alert and oriented x 3, has normal respiratory effort, Distal CMS is intact. Abnormal exam - Dressing is clean, dry, intact Assessment and Plan: Status post Procedure(s) (LRB): OPEN REDUCTION INTERNAL FIXATION PROXIMAL HUMERUS FRACTURE (Left) PLEASE REFER TO HOSPITALIST NOTES FOR DIAGNOSIS SPECIFICS Left proximal humerus fracture - s/p Procedure(s) (LRB): ?? OPEN REDUCTION INTERNAL FIXATION PROXIMAL HUMERUS FRACTURE (Left). Pain managed. IS reinforced. ?? Bowel management- narcotic induced, senna. ?? Hgb monitoring - as expected, asymptomatic, no acute s/s of bleeding ?? Physical deconditioning - PT/OT, continue non-weight bearing to Left upper extremity. Mechanical Assembly Technician, wrist, elbow range of motion with axillary care and pendulums. Also, passive and active assisted forward elevation and external rotation at the side. ?? VTE prophylaxis/Anticoagulation - aspirin and plavix ?? Medicine to complete med rec prior to discharge Follow up: Discharge Procedure Orders Physical Therapy Referral Priority: Routine Referral Type: Therapies Number of Visits Requested: 1 Expiration Date: 09/15/19 Echocardiogram Standing Status: Future Standing Exp. Date: 07/17/20 Order Specific Question Answer Comments Follow department protocol? Yes Bubble study if appropriate (used if Patent Foramen Ovale or Atrial Septal Defect suspected)? Yes Eat fiber (whole grains, fruits and vegetables) and drink plenty of fluids to prevent constipation. Pain medication can cause constipation. Resume your usual diet as you feel comfortable. Activities as tolerated. You may shower Do not soak in a bath tub, hot tub or pool until your incision is completely healed Apply ice (not directly on your skin) as needed to ease discomfort and reduce swelling Do not apply creams, lotions, powder or hydrogen peroxide to your incision You must be accompanied by a responsible adult bulk truck driver at the time you are discharged. Do not drive until you have been seen for your follow-up appointment and are OK???d for driving. Do not drink alcohol or make any major decisions, such as signing important papers or managing legalissues, while taking prescription pain medication. To prevent pneumonia after surgery: Order Comments: 1) Use your incentive spirometer 10 times an hour while you are awake and continue this 2 weeks after your surgery. 2) Practice coughing after each set of incentive spirometer use 3) Practice good oral care. [place] your teeth and use mouthwash twice daily. Call your doctor if you have any of the following symptoms: (See below) Order Comments: Call your doctor if you have any of the following symptoms: 1. Fever of 101 degrees Farenheit or 38 degrees Celsius or higher and /or chills 2. Severe pain not relieved with pain medication 3. Bleeding from the incision that does not stop. 4. Signs of a surgical infection: increased or foul smelling drainage and/or extreme redness, warmth, tenderness or swelling around the incision and/ or separation of the skin closures Do not start antibiotics for incision infections without contacting the orthopedic surgeon first. Pain Medication Refills: Order Comments: For pain medication refills please contact your pharmacy or surgeon's office. Pleaseallow at least 2 business days for these requests to be addressed. Pain medications will not be refilled on weekends, holidays, or after 4:30 PM on . Please be aware that some insurance companies have specific regulations on coverage of pain medication; please ensure you are familiar with your insurance prescription coverage. For medical issues, please contact your primary care physician Weight bearing. (Specify) Order Specific Question Answer Comments Which Extremity Upper Left Extremity Weight Bearing Status (WBS)? Non Weight Bearing Sling on for ambulation, may be off while sleeping and while awake and alert. Let the water run over your dressing. Leave the dressing on until your first orthopedic follow up appointment. If you have trouble with your dressings, please call your surgeon. For any wound concerns, please notify the orthopedic surgeon or orthopedic surgeon on-call. (See below) Order Comments: Orthopedic Nurse Triage Line Monday - Monday 8:30 AM to 5 PM at [phone] and select option 2. During evening hours, weekends, and holidays call the [facility] at [phone]. Ask the pelletising extruder operator to page the orthopedic surgeon golf tournament consultant. Not all post-operative infections can be prevented, but early detection and proper treatment can prevent major catastrophes. Do not start antibiotics for incision infections without contacting the orthopedic surgeon first. IF in doubt, call the orthopedic surgeon. Lnia Meléndez MD [address] [facility] [address] Call in 2 weeks for an osteoporosis workup including DEXA scan, vitamin D levels, intact PTH, and calcium intake. Total time spent on discharge on day of discharge 30 minutes. For full discharge orders and instructions, please see the after visit summary for this hospitalization. Matt Leavitt PA-C 12:11 PM 07/17/2019 FORMER documented in this encounter Discharge Instructions Discharge Instr - Other OrdersMaNicole echeverria APRN, CNP - 07/17/2019 11:57 AM CST Ordered a Echocardiogram ad an outpatient, please have this done and follow up with your primary physician. FORMER documented in this encounter Medications at Time of Discharge Medication Sig Dispensed Refills Start Date End Date acetaminophen Take 2 Tablets by 100 Tablet 0 07/16/2019 (TYLENOL) 500 MG mouth three times a tabletIndications: day. 24 hour limit of Pain acetaminophen (TYLENOL) is 4000mg. Indications: Pain atorvastatin (LIPITOR) Take 10 mg by mouth 0 04/27 10 MG daily. Indications: tabletIndications: High Amount of Fats in Hyperlipidemia the Blood cloNIDine (CATAPRES) Take 0.3 mg by mouth 0 0.3 MG three times a day. tabletIndications: Indications: High Hypertension Blood Pressure Disorder clopidogrel (PLAVIX) Take 75 mg by mouth 0 2015 75 MG daily. Indications: tabletIndications: stroke stroke fluticasone (FLONASE) Place 2 Sprays into 0 50 MCG/ACT nasal both nostrils two solutionIndications: times a day. Nasal Signs and Indications: Signs and Symptoms Symptoms of Nose Diseases HYDROmorphone Take 1-2 Tablets by 30 Tablet 0 07/17/2019 (DILAUDID) 2 MG tablet mouth every 4 hours as needed for Pain. Take one tab for pain rating 4-7, take two tabs for pain rating 8-10. insulin glargine (AKA Inject 18 Units 0 7 LANTUS) 100 UNIT/ML subcutaneously injection nightly. LW Comment:info per pt, Dr.Tom Dye insulin lispro (AKA Inject subcutaneously 0 06/22 HUMALOG) 100 UNIT/ML 4 times daily (sliding injection vial scale). Indications: DIABETES MELLITUS magnesium oxide Take 800 mg by mouth 0 03/05/2016 (MAG-OX) 400 MG two times a day. tabletIndications: Indications: Disorder Hypomagnesemia with Low Magnesium Levels ondansetron (ZOFRAN) 4 Take 2 Tablets by 30 Tablet 0 2019 MG tablet mouth every 8 hours as needed. senna (SENOKOT) 8.6 MG Take 1 Tablet by mouth 30 Tablet 0 0 07/16/2019 tabletIndications: two times a day. Take Constipation while on narcotics. Hold for loose stools. Indications: Constipation valACYclovir (VALTREX) Take 500 mg by mouth 0 500 MG tablet two times a day. zolpidem (AMBIEN) 5 MG Take 5 mg by mouth at 0 tabletIndications: bedtime as needed for Insomnia Sleep. Indications: Trouble Sleeping aspirin EC 81 MG Take 2 Tablets by 84 Tablet 0 07/17/2019 0 08/28/2019 enteric coated tablet mouth daily for 42 days. documented as of this encounter Progress Notes Shagufta Magallanes RN - 07/17/2019 3:34 PM CST Ortho Discharge O: Patient safely discharged to home. D: Patient is alert and oriented x 4. Discharge criteria met: Cleared by Medicine Cleared by Ortho Cleared by PT/OT Ortho has seen Pain controlled Voiding without lopez. Vaccines: N/A A: Discharge instructions and medications reviewed and given to patient and family. Prescriptions filled by [facility] pharmacy. Belongings checklist reviewed with patient and family and belongings sent. Care plan and education record updated. Patient pre-medicated for discharge: Yes. R: Patient and family verbalizes understanding and teaches back discharge instructions. Patient discharged at 1545 by: wheelchair with volunteer. FORMER Larisa Gaines MD - 07/17/2019 12:44 PM CST Daily Progress Note Admit Date: 07/16/2019 Today's Date: 07/17/2019 Subjective: Had some chest pressure last night. EKG and troponin ordered. Now chest pressure gone. Pain overnight but better this AM. Leg swelling is better. Objective: Vitals: BP 126/54 Pulse 64 Temp 36.8 ??C (98.2 ??F) (Oral) Resp 18 Ht 1.651 m (5' 5) Wt 75 kg (165 lb 6.4 oz) SpO2 99% BMI 27.52 kg/m?? I/O last 3 completed shifts: In: 1290 [Oral:180; IV:1110] Out: 2150 [Urine:2000] General: Awake and alert. No acute distress. HEENT: NC/AT. EOMI. Moist mucous membranes. Neck: Supple. No JVD. CV: RRR. Normal S1, S2. No murmurs, rubs or gallops. Lungs: CTAB No wheezes, crackles, or rhonchi. Abdomen: Soft, non-tender, non-distended. Extremities: No edema in legs. L arm in sling with some bruising to hand/forearm Neurologic: No focal deficits. Psychiatric: AOx3. Normal affect. Labs: Last BMP: Recent Labs 07/17/19 0749 07/17/19 1208 CREATININE 0.65 -- GLUCOSE 187* -- GLWB -- 217* BICARB 25 -- CHLORIDE 98 -- K 3.3* -- SODIUM 131* -- BUN 16 -- CA 8.4 -- GFR >60 >60 -- Last CBC: Recent Labs 07/17/19 0749 HGB 8.0* Last Troponin panel: Recent Labs 07/16/19 2004 TROP 0.02 Imaging: U/s rocco LE IMPRESSION: 1. No evidence of deep venous thrombosis. Small calf vein thrombosis cannot be completely excluded by this technique. Assessment/Plan: Ms. Crisostomo is a 73 y.o. female with h/o DM, HTN, HL, TC who was admitted for L proximal humerus fracture repair. ?? L proximal humerus fracture s/p ORIF, POD #1 - Primary management per orthopedics - Hb stable - Pain control, bowel regimen - Osteoporosis workup as an outpt- DEX, vitamin D, PTH, CA ?? Dyspnea - Possible new heart failure vs fluids retention with HTN. EKG with LVH, trop negative. Reported h/oasthma but no wheezing or signs of exacerbation. - U/s lower ext without DVT. D-dimer unlikely to be helpful in setting of fx and surgery - Ordered an echo but unable to perform due to inability to position L arm properly. Pt desires to have this done outpt. As otherwise stable with resolved symptoms, will pursue outpt workup. ?? H/o CVA - Previously on plavix which was held for surgery, ok to restart now ?? HTN - Controlled this AM. Reports failing many medications, seems that clonidine works best for her- will continue ?? DM - Place insulin orders ?? HL - Continue atorvastatin ?? Depression - Continue effexor ?? Code Status: FULL PPx: SCDs Dispo: Ok for d/c today with close follow up with PCP for further workup of edema, monitor BPs Time: Greater than 30 minutes have been spent in care of this patient. This time includes reviewing the patient's chart (medications, labs, etc.), examining the patient and writing the note. More than 50% of this encounter has been time spent counseling/coordinating care for the patient. Larisa Gaines MD [facility] Pager: [phone] FORMER Nicole Bey APRN, XM1 TANK DRIVER - 07/17/2019 12:07 PM CST DAILY PROGRESS NOTE Admit Date: 07/16/2019 Today's Date: 07/17/2019 CC: Pain control POD # 1 Subjective: Sitting up in bed c/o severe 10/10 left shoulder pain. Says she has tried several different medications and nothing has worked. Objective: Vitals: BP 126/54 Pulse 64 Temp 36.8 ??C (98.2 ??F) (Oral) Resp 18 Ht 1.651 m (5' 5) Wt 75 kg (165 lb 6.4 oz) SpO2 99% BMI 27.52 kg/m?? I/O last 3 completed shifts: In: 1290 [Oral:180; IV:1110] Out: 2150 [Urine:2000] General: Patient is alert, well oriented and in no acute distress HEENT: PERRL, conjunctiva clear, MMM NECK: supple, no adenopathy LUNGS: Clear to auscultation bilaterally, no wheezes or crackles HEART: RRR, no murmur, nml S1/S2, no gallops or rubs ABDOMEN: Soft, non-tender, bowel sounds present EXTREMITIES: left shoulder immobilized dressing clean and dry no edema, no cyanosis, + pulses Skin: no gross lesions or rashes NEUROLOGIC: CN II - XII grossly intact, normal strength and sensation PSYCH: appropriate affect and eye contact Meds: reviewed in chart LABS: Last Hemoglobin: Recent Labs 07/17/19 0749 HGB 8.0* Assessment/Plan Center Diego is a 73-year-old Afro-Nepalese female was admitted yesterday for a left proximal humerus fracture repair. PMH: Hypertension, type 2 diabetes, asthma, depression, and obstructive sleep apnea. Patient developed dyspnea, and some chest tightness post op. EKG was unchanged and troponin was negative. She was treated with IV Lasix and symptoms resolved. Closed fracture of left proximal humerus: Open reduction internal fixation proximal humerus fracture, POD #1Having trouble managing pain. PT/OT Pain control and antibiotics per ortho Perioperative dyspnea: Received IV Lasix during surgery and symptoms resolved. EKG postop showed no acute changes and troponin was negative, a BNP, chest x-ray were not done. An echocardiogram was alsoordered for today. Patient refusing echo due to shoulder pain Will order echo as outpatient H/o CVA - plavix 75 mg resumed ?? HTN - clonidine 0.3 mg tid ?? DM Resume lantus 18 Units as hs and Ispro 4 units AC ?? HL - Continue atorvastatin 10 mg ?? Nicole Bey XM1 TANK DRIVER FORMER Sandra Jones, PT - 07/17/2019 8:27 AM CST Physical Therapy Attempted to see pt bedside for eval. Pt reports that she is in a lot of pain and did not sleep wellat all. Pt refused OT and does not want to move until her pain is better managed. PT introduced selfand readjusted her sling for comfort in which the patient reported is the best her shoulder has feltafter readjustment. Sandra Jones, PT 10:08 AM 07/17/2019 Physical Therapy Inpatient Orthopedic Initial Evaluation Date of Admit: 07/16/2019 History of current medical diagnosis: Status post ORIF Left humerous performed on 07/16/19 Rehab Diagnosis: Pain, Decreased range of motion, Weakness, Impaired mobility, Decreased balance andRisk of falls Patient Active Problem List Diagnosis ??? Osteoarthrosis, [...] ??? Closed fracture of left proximal humerus MD Order: Eval and Treat: General rehab program 0 to 6 weeks postop: Mechanical Assembly Technician, wrist, elbow, axillary care, pendulums, active - assisted, and passive left shoulder range of motion. SUBJECTIVE Patient reports: Pt reports that she is doing much better today. Pt has her pain well controlled nowand is ready to move. Pt is agreeable to PT session. Mood: pleasant and alert Pain: 7.5/10 in left upper extremity Prior Functional Level: Mobility: --Independent with community mobility with no assistive device. --Independent with household mobility with no assistive device. Assistance provided by: spouse Support System: Lives with spouse, 2 daughters Home Environment: [facility] Stairs: 1 steps to enter home, then stay on 1 level: 1 rail Current Equipment Available: 4 wheeled walker Patient PT Goals: balance and get back to baseline Patient History: ?? Moderate Complexity: 1-2 personal factors and/or comorbidities that impact plan of care: recent surgery, DM2 OBJECTIVE Treatment Location: [place] Special Equipment: L shoulder sling Precautions: Falls risk and AROM OK to elbow, wrist, and hand 0 to 6 weeks postop: Mechanical Assembly Technician, wrist, elbow, axillary care, pendulums, active - assisted, and passive left shoulder range of motion. Orientation: Oriented to person, place and time Cooperation: full -- Range of Motion: - Left shoulder ROM limited with precautions -- Strength: Uninvolved lower extremities within normal limits -- Sensation: patient denies numbness and tingling -- Endurance: adequate for household mobility and inadequate for community mobility -- Balance: -- no LOB noted during session Standardized test: -[facility] 6 Items (out of 24 points): Raw Score: 24, Standardized Score: 57.68, G Code: CH, 0.00% impaired Suggested AM-[facility] Basic Mobility Stage: 52-65 - MOVING AROUND INDOORS: This score suggests the patient may be able to move about on the ground floor of the home where he/she is familiar with the environment. Activities that might be difficult to manage without assistance include sitting and standing from a low chair, climbing stairs, bending, kneeling or stooping. The patient may have some difficulty moving about outdoors and in the community. Gait: Weight bearing status: full Equipment: no assistive device Assistance: independent and supervision Distance: 250 feet x 2 Gait Pattern: reciprocal Instruction provided: instructed on slight balance difference due to no L UE arm swing Stairs: Assistance: independent # of steps: 1 step, no railing Transfers: Supine to/from Sit: independent Sit to/from Stand: modified independent Clinical Examination: ?? High Complexity: Addressed 4 or more elements from body structures and functions (see above), and/or functional limitations as noted below. Today's Intervention: Mobility as above Educated on shoulder restrictions and NWB positions. Instructed how to use towels or pillow to help it be supported and comfortable Educated on sling positions and items to focus on for good set up and support Education/Handouts: PT POC DC recommendations Ambulate 4 times per day shoulder precautions Multidisciplinary Communication: occupational therapist and nurse Timed codes: Self care/home management training x 8 minutes Total timed minutes: 8 Total treatment time: 28 ASSESSMENT PT Clinical Presentation: ?? Low Complexity: Stable and Uncomplicated Clinical Decision Making: ?? Low Complexity Eval Patient's impairments are: Decreased balance Decreased ROM in L shoulder AROM Pain Functional limitations: Patient unable to transfer independently Patient unable to ambulate independently Patient unable to climb stairs independently Increased risk of falls Goals/Functional Outcomes: No goals set- evaluation only. Barriers to Learning: none Rehab Potential: Good PLAN Planned intervention/education: Evaluation Frequency: one time Duration: 1 day Goals and Plan of Care discussed with patient/family; patient consents to treatment: Yes Discharge Recommendations: Anticipate patient will be safe for discharge to home from mobility standpoint when medically able. Recommend outpatient PT. Therapist discharge recommendation was discussed with patient. Patient in agreement with recommendations. Plan for Next Treatment: None - DC from PT NOTE: The clinician's signature certifies medical necessity for the treatment plan above. FORMER Jenna Delgado OTR/Tony - 07/17/2019 8:21 AM CST Occupational Therapy Occupational Therapy ADL Evaluation Date of admit: 07/16/2019 History of current medical diagnosis: Ms. Crisostomo is a 73 y.o. female with h/o DM, HTN, HL, TC who was admitted for L proximal humerus fracture repair. S/p Open reduction, internal fixation left 4-part proximal humerus fracture on 07/16/2019 Past medical history: History of CVA order: Eval and Treat: Orthopedic General Current living situation: Lives in a townhouse with her and dog and cat. Prior ADL/IADL status: Patient independent with all ADLs/IADLs at baseline. Does not use assistive device. Current adaptive equipment: Walker Occupation: Retired Precautions: Falls risk, NWB L UE, 0 to 6 weeks postop: Mechanical Assembly Technician, wrist, elbow, axillary care, pendulums, active -assisted, and passive left shoulder range of motion. Communication: Verbal Location of treatment: bedside Objective Information Upper extremity function: Current upper extremity ROM: Right: WFL Left: Sling, NWB Current upper extremity strength: Right: WFL Left: NWB, sling Vision: Prior Visual Functioning: Glasses Current Visual Functioning: Appears Intact Cognition: Prior Cognitive Functioning: Intact thinking, decreased short term memory. Current Cognitive Functioning: Orientation: Oriented x 3 and Patient answers questions appropriately Current ADL Performance: Feeding: independently, may need set up assist Grooming/Hygiene: assistance as needed with hair Upper body dressing: Instructed in UE dressing and donning/doffing robe and sling. Patient required Mod to Max A to both don and doff. Required increased time. will assist upon discharge Lower body dressing: to assist Recliner transfer: with standby assistance/supervision Bed mobility: with standby assistance/supervision Toileting/toilet transfer: with standby assistance/supervision for transfer however Min A with clothing management Bathing/Tub/Shower transfer: with standby assistance/supervision with recommendation for shower chair and long handled sponge Meal Prep: will assist. Educated patient on making items easily accessible. Homemaking/Home management: Will have assist Medication management: Not formally assessed Gait/mobility: with standby assistance/supervision with no AD. Patient reports decreased balance at baseline. Treatment Today: Instructed in role of OT and progression of care. Refer to above for treatment and recommendations. Response to treatment: Endurance/activity tolerance: Patient tolerated treatment well. Cooperation: good Pain scale 0 to 10 (low to high): Reports pain as 7-8/10 and reports it will not get much better than that Impairments Patient's impairments are: Impaired UE function, Surgical precautions, Pain limiting performance Functional Limitations/Rehab Diagnosis Above listed impairments limit patient's performance completing ADLs/IADLs safely and independently. Occupational Therapy Interventions Patient's Occupational Therapy interventions are: Functional mobility AE recommendations ADL training Safety Transfers Outcomes The following goals have been established: Patient and family goals: To go home today. Functional outcome goals: Patient to verbalize/demonstrate understanding of recommendations provided by therapist for safe ADL/IADL completion for discharge home. GOAL MET director long term care goal: Patient will maximize independence and safety with ADL/IADLs Treatment plan/goals reviewed with patient/family. Patient consents to treatment: Yes Frequency/Duration: One mikey only Other services: Physical Therapy Patient's potential to achieve goals: Good Evaluation Complexity Rating: Occupational profile and history: moderate Assessment: moderate Clinical decision making: moderate Overall complexity rating: moderate Timed Code Treatment Minutes: 10-ADL training, UE dressing, AE recommendations Total Treatment Minutes: 30 Initial Discharge Recommendations Patient's initial discharge recommendation is: From ADL/safety standpoint, anticipate patient will be safe to discharge home when medically ready with: increased assist for: bathing, meal prep, homemaking, medication management and driving. Patient reports she is discharging home today and will have to assist. Signature: Jenna Delgado, OTR/L 3:18 PM 07/17/2019 NOTE: The clinician's signature certifies medical necessity for the treatment plan above. Electronically signed by Gabriela Lopez, ROCCO, CREDIT AND COLLECTION MANAGER XM1 TANK DRIVER at 07/18/2019 7:07 PM CLUB FORMER Adele Thompson RRT - 07/16/2019 9:58 PM CST Patient's home CPAP unit set up and ok for hospital use. Oxygen added to home CPAP: Yes Home humidifier filled: Yes Patient will need assistance placing CPAP on self: No Adele Thompson RRT 9:59 PM 07/16/2019 FORMER Shagufta Magallanes RN - 07/16/2019 4:40 PM CST POST-OP O: Patient will have a stable post-op period. D: Pt arrived to room [id number]/642 -[id number], at 1630 (time). Patient is alert and oriented x 4. Initial Vital Signs: Temp: 36.9 ??C (98.4 ??F) (07/16/19 1631) Pulse: 86 (07/16/19 1631) Resp: 14 (07/16/19 1631) BP: (!) 159/74 (07/16/19 1631) SpO2: 100 % (07/16/19 1631) Pain rated at: 0. See Assessment and Doc Flowsheets for equipment and lines/drains. Dressing is clean, dry, intact. A: Monitor vital signs and assess patient per protocol. Patient oriented to bed controls and call lights. Discussed plan of care with patient. See Education Record. R: Patient settled to room. Will continue to monitor. Bert Lassiter HUC - 07/16/2019 4:21 PM CST Diabetic consult e-paged to Hospitalist pager per Dr. Rodriguez's post-op order request. FORMER documented in this encounter Procedure Notes Edelmira Rodriguez MD - 07/16/2019 2:13 PM CST NAME: MARYAM CRISOSTOMO MR#: [id number] CSN: [id number] AUTHENTICATING CLINICIAN: Edelmira Rodriguez MD CONFIRM #: [id number] LOC: 1 OPERATIVE REPORT DATE OF OPERATION: 07/16/2019 : 1945 SURGEON: Edelmira Rodriguez MD PREOPERATIVE DIAGNOSIS: Four-part left proximal humerus fracture. POSTOPERATIVE DIAGNOSIS: Four-part left proximal humerus fracture. PROCEDURE: Open reduction, internal fixation left 4-part proximal humerus fracture. IMPLANT: Synthes 3-hole proximal humeral locking plate with suture fixation of tuberosities and cancellous allograft. WARP HAULER: Gabriela Reddy APRN, XM1 TANK DRIVER. ANESTHESIA: Interscalene block with general endotracheal anesthesia. COMPLICATIONS: None. ESTIMATED BLOOD LOSS: 150 mL. INDICATIONS: The patient is 73 years old. She is right-hand dominant. On 07/04/2019, she fell. She was seen in [place] where she lives. She was placed in a sling. She followed up approximately 1 week later for evaluation. Radiographs confirmed a highly comminuted 4-part proximal humerus fracture. CT scan betterdelineated the multiple separate comminuted fracture fragments. She reported no previous left shoulder symptoms or disability. To restore anatomy and, thereby, support comfort and function, she underwent the procedure described below. FINDINGS: Very robust early healing with considerable bone loss in the metadiaphyseal region; good overall alignment and reduction achieved at the close of the case. DESCRIPTION OF PROCEDURE: Patient was taken to the operating room. Left shoulder was identified by site marking. Consent was read and confirmed by the operating room staff. Formal time-out was undertaken; patient was identified, site of surgery was identified, and procedure was identified. IV antibiotics were provided. Interscalene block was administered by the anesthesia service. She was surrendered to general endotracheal anesthesia. All bony prominences were well padded. She was placed in the beach chair position at approximately 30 degrees of head elevation. Left upper extremity and shoulder were sterilely prepped and draped. Deltopectoral approach to the shoulder ensued. Dissection was carried down through skin and subcutaneous tissue to the deltopectoral interval. Cephalic vein was identified and retracted laterallywith deltoid musculature. It was preserved throughout the procedure. Deep to the deltopectoral interval, clavipectoral fascia was encountered. This was also divided. Significant congealed hemorrhagic hematoma and bursal tissue were encountered and removed. Given that the fracture was almost 2 weeks out, early healing had really already begun. Presumably, as well, the shaft had held out a little bit of the undersurface of the humeral head and undersurface of the tuberosities. It was somewhat difficult to mobilize each of the separate 4 fracture fragments (shaft, humeral head, greater tuberosity, and lesser tuberosity). No. 2 FiberWire was used to capture subscapularis to, thereby, control lesser tuberosity. No. 2 and No. 5 FiberWires were used to capture supraspinatus, infraspinatus, and teres minor to control the greater tuberosity. There was a split in the greater tuberosity, which was also repaired with a #2 FiberWire. An anteromedial free fragment was also present, but was not reduced and was allowed to be bridged by the plate. A bone hook was used to lateralize the shaft. The sutures in the tuberosities were used to control the head and the tuberosities. Thompson elevator and [place] elevator were also used to help control the relationship between the tuberosities, head, and shaft. Fluoroscopic imaging confirmed significant improvement in alignment. Given the hollowed out area of the humeral head and tuberosities, allograft chips were placed in this interval to create a space filler and hopefully act as a scaffold for new bone formation. A 3-hole Synthes proximal humeral locking plate was th en chosen. Each of the sutures that had been placed in the rotator cuff tendons was threaded throughthe periphery of the plate. The exception to this was 1 of the No. 5 FiberWires which was placed in the teres minor. This was placed in a figure of 8 type arrangement and was used to capture subscapularis. The suture was then tied down in the manner to create an extra-articular cerclage between the lesser and greater tuberosities. This was done prior to placing the plate just posterior to the bicipital groove. Once the plate was placed in a reasonably good position, a 3.5 cortical screw was placed through the oblong hole in the shaft and then, with fluoroscopic imaging, height of the plate was titrated to the tuberosity. The 3.5 mm screw was then tightened. Eight of the nine 3.5 mm locking screws were then advanced into the humeral head. Two more 3.5 mm screws were advanced into the shaft of the plate and proximal humerus. Fluoroscopic imaging confirmed good relationship between head, tuberosities, and shaft. One of the calcar screws really could not fit within the humeral head, so only 1 of the calcar screws was used to capture the head. Wound was irrigated with normal saline. Each of the sutures capturing the rotator cuff and threaded through the periphery of the plate were tied down. 500 mg of vancomycin was placed in the wound. The rotator interval was tagged with a #2 Ethibond. Subdermal tissue was closed using interrupted Vicryl. Skin edges were apposed using nahomy. Sterile dressingwas applied. PLAN: 1. Check hemoglobin. 2. Consideration of echo given patient's recent fluid increase and per Anesthesia recommendation. 3. Medical comanagement. 4. X-rays at 2, 6, and 12 weeks postop. 5. Zero to 6 weeks postop: Mechanical Assembly Technician, wrist, elbow range of motion with axillary care and pendulums. Also, passive and active assisted forward elevation and external rotation at the side. 6. Six to 12 weeks postop: Add active range of motion in all directions. 7. Twelve plus weeks postop: Add strengthening. 8. Osteoporosis evaluation and treatment. JALIL:MEDQ C: CONFIRM #: [id number] FORMER Gabriela Lopez, RN, CREDIT AND COLLECTION MANAGER XM1 TANK DRIVER - 07/16/2019 10:42 AM CST [facility] Brief Operative Progress Note Surgery Date: 07/16/2019 Surgeon(s) and Role: * Edelmira Rodriguez MD - Primary Gabriela Lopez CNP assisting Pre-op Diagnosis: * Closed fracture of proximal end of left humerus, unspecified fracture morphology, initial encounter [S42] Post-op Diagnosis: * Closed fracture of proximal end of left humerus, unspecified fracture morphology, initial encounter [S4.] Procedure(s) (LRB): OPEN REDUCTION INTERNAL FIXATION PROXIMAL HUMERUS FRACTURE (Left) EBL: 150ml Specimens: * No specimens in log * Complications / Findings: As expected Discharge Plan: Surgical Closure Device: nahomy (s) Precautions: NWB left arm, 0 to 6 weeks postop: Mechanical Assembly Technician, wrist, elbow, axillary care, pendulums, active-assisted, and passive left shoulder range of motion. Patient's Discharge Preference: home Anticoagulation: plavix resumed tomorrow, patient concerned about CVA. ANESTHESIA RECOMMENDS ECHO due to new dyspnea and edema. Fractures/Repairs: Follow up timeframe: 2 weeks Keep Incision Dry: yes, tegaderm alginate prior to dc PATIENT SHOULD START OUTPATIENT THERAPY SHELBI AFTER DISCHARGE. NOTE WRITTEN TO INPATIENT ORTHO TEAM TO ORDER AT DISCHARGE Gabriela Lopez RN, CREDIT AND COLLECTION MANAGER XM1 TANK DRIVER Electronically signed by Gabriela Lopez RN, CREDIT AND COLLECTION MANAGER XM1 TANK DRIVER at 07/16/2019 6:38 PM CLUB FORMER documented in this encounter Consult Notes Cely Cosby LGSW - 07/17/2019 2:00 PM CSTAssociated Order(s): CARE INTEGRATION CONSULT Care Integration - Consult Received Care Integration consult for discharge planning. Reviewed chart including therapy recommendations and attending provider???s progress note. Patient???s goal is to discharge home with OP PT. Care Integration will not assess/meet patient face to face because no transition needs are required at t his time. If further discharge needs arise, please page the assigned Care Integration treatment teamto assess. PATTIE Huggins 07/17/19 2:00 PM FORMER Larisa Gaines MD - 07/16/2019 4:40 PM CSTAssociated Order(s): HOSPITAL SERVICE CONSULT HOSPITAL CONSULTATION Referring Provider: Dr. Rodriguez Reason for Consult Request: Dyspnea HPI: Maryam Crisostomo is a 73 y.o. female with h/o DM, HTN, HL, TC who was admitted for L proximal humerus fracture repair. She fell on 1/9 and was seen at an outside facility. Pt reports being much more inactive in the last 2 weeks since that fall and has noticed increased swelling in her lower extremities. Has also had some decreased exercise tolerance over the last 2 months- normally exercises 3-4 days per week. No overt CP but sometimes feels a pressure sensation in her chest. No recent illness, no cough or wheezing. Today, pt underwent surgery with Dr. Rodriguez. She required lasix during the procedure. Due to these symptoms, it was recommended that pt stay for further evaluation. Review of Systems A comprehensive review of systems was negative except for: Negative except as mentioned in the HPI Patient Active Problem List Diagnosis Date Noted ??? Closed fracture of left proximal humerus 07/10/2019 ??? TC (obstructive sleep apnea) 11/05/2018 ??? Arthritis of carpometacarpal (CMC) joint of right thumb 10/16/2017 ??? Hypomagnesemia 12/07/2016 ??? Hyponatremia 12/07/2016 ??? Psoriasis 05/20/2016 ??? Cerebrovascular accident (C) 05/20/2016 ??? GERD (gastroesophageal reflux disease) 12/18/2015 ??? HTN (hypertension) ([facility]) 12/18/2015 ??? Spinal stenosis of lumbar region without neurogenic claudication 12/18/2015 ??? Asthma ([facility]) 05/05/2007 ? ? Hyperlipidemia LDL goal <70 ([facility]) 05/05/2007 ??? Benign neoplasm of colon 05/05/2007 ??? Type 2 diabetes mellitus without complication, with long-term current use of insulin ([facility]) 03/23/2007 ??? Backache 03/23/2007 ??? Major depressive disorder, recurrent episode ([facility]) 01/17/2007 ??? Osteoarthrosis, unspecified whether generalized or localized, unspecified site 11/30/2002 No past medical history on file. Past Surgical History: Procedure Laterality Date ??? CARPAL TUNNEL RELEASE LW Problem: Carpal Tunnel Release s/p ??? CERVICAL FUSION LW Problem: Cervical Spine Fusion S/p ??? HYSTERECTOMY LW Problem: Hysterectomy S/p ??? TOTAL KNEE ARTHROPLASTY LW Problem: Knee arthroplasty Total S/p LW Modifier: right Sulfa antibiotics; Clonidine [adhesive]; Codeine; Gluten meal; Other; and Sodium metabisulfite Social History Tobacco Use ??? Smoking status: Never Smoker ??? Smokeless tobacco: Never Used Substance Use Topics ??? Alcohol use: Yes No family history on file. ??? acetaminophen 650 mg Oral QID ??? atorvastatin 10 mg Oral 1999 ??? ceFAZolin 1 g Intravenous Q8H ??? [START ON 07/17/2019] clopidogrel 75 mg Oral Daily ??? [START ON 07/17/2019] magnesium hydroxide 30 mL Oral Daily ??? magnesium oxide 800 mg Oral Daily with meal ??? [START ON 07/17/2019] pantoprazole 40 mg Oral Daily at 6 am ??? pravastatin 20 mg Oral Daily ??? senna 1 Tablet Oral 1999 ??? sodium chloride 0.9% sodium chloride, bisacodyl, HYDROmorphone, HYDROmorphone AND oxyCODONE, Melatonin, naloxone, ondansetron OR ondansetron, oxyCODONE, sodium chloride 0.9%, sodium phosphate, traZODone Objective: Vital Signs: Blood pressure (!) 159/74, pulse 86, temperature 36.9 ??C (98.4 ??F), temperature source Oral, resp. rate 14, height 1.651 m (5' 5), weight 75 kg (165 lb 6.4 oz), SpO2 100 %. General: Comfortable, alert and interactive. NAD Head: Atraumatic, normocephalic. Eyes: EOMI, No conjunctival injection. Throat: Moist mucous membranes Neck: Supple, difficult to assess JVD Heart: RRR without murmurs Respiratory: Normal respiratory effort. Lungs CTAB with good breath sounds. No wheezes or crackles Abdomen: The abdomen was flat, soft and nontender. Extremities: L arm in sling,Trace edema rocco, no calf tenderness. Labs and Imaging reviewed in [facility] and pertinent positives are as follows: Imaging: CT shoulder: FINDINGS: ?? Comminuted displaced fracture of the proximal humerus primarily involving the humeral neck although fracture line extends close to the inferior and superior articular surfaces of the humeral head. Additional comminuted fracture fragments are present involving the greater and lesser tuberosities. Thereis impaction and anterior angulation and displacement. Humeral head is subluxed inferiorly on the glenoid without ingrid dislocation. Moderate AC joint arthrosis. No fractures otherwise. No muscular atrophy or mass. Labs: Last BMP: Recent Labs 07/16/19 1414 GLWB 206* Last CBC: Recent Labs 07/16/19 1104 WBC 5.6 RBC 2.99* HGB 9.5* HCT 28.0* MCV 93.6 RDW 12.3 PLTS 309 ECG: Sinus rhythm Possible Left atrial enlargement Possible Anterior infarct (cited on or before 02-FEB-2004) Abnormal ECG When compared with ECG of 04-FEB-2004 06:45, No significant change was found ASSESSMENT/PLAN: Ms. Crisostomo is a 73 y.o. female with h/o DM, HTN, HL, TC who was admitted for L proximal humerus fracture repair. L proximal humerus fracture s/p ORIF, POD #0 - Primary management per orthopedics - Hb in AM - Pain control, bowel regimen Dyspnea - Possible heart failure, PE, ACS. EKG unchanged and with symptoms persistent over weeks, lower suspicion for ACS. Reported h/o asthma but no wheezing or signs of exacerbation - Will obtain echo, lower extremity ultrasounds, D-dimer unlikely to be helpful in setting of fx andsurgery H/o CVA - Previously on plavix which was held for surgery, ok to restart tomorrow HTN - Reports failing many medications, seems that clonidine works best for her- will continue DM - Place insulin orders HL - Continue atorvastatin Depression - Continue effexor Code Status: FULL PPx: SCDs Dispo: Pending workup of dyspnea, pain control, and postop cares Thank you for involving me in the care of your patient, Maryam Crisostomo. If you have any questions regarding these recommendations, please feel free to contact me at any time. Larisa Gaines MD [facility] Pager: [phone] FORMER documented in this encounter OR Notes H&P - Edelmira Rodriguez MD - 07/16/2019 11:12 AM CST Agree with Dr. Umana's H and P from 07/11/19. No new updates. Edelmira Rodriguez MD FORMER documented in this encounter Plan of Treatment Scheduled Referrals Name Type Priority Associated Diagnoses Order S [facility] Physical Therapy Referral Routine S/P ORIF (open reduction Ordered: 07/17/2019 internal fixatio n) fracture Other closed nondisplaced fracture of proximal end of left humerus, initial encounter documented as of this encounter Procedures Procedure Name Priority Date/Time Associated Comments Diagnosis BEDSIDE GLUCOSE Routine 07/17/2019 12:08 Results for this MONITOR POCT [facility] procedure are i n the results section. ECG 12 LEAD STAT 07/17/2019 8:53 Results for this INPATIENT [facility] procedure are i n the results section. BASIC METABOLIC Routine 07/17/2019 7:49 Results f or this PANEL [facility] procedure are i n the results section. HEMOGLOBIN, BLOOD Routine 07/17/2019 7:49 Results for this [facility] procedure are i n the results section. HGB A1C Routine 07/17/2019 7:49 Results for this [facility] procedure are i n the results section. BEDSIDE GLUCOSE Routine 07/17/2019 7:17 Results f or this MONITOR POCT [facility] procedure are i n the results section. BEDSIDE GLUCOSE Routine 07/16/2019 10:04 Results for this MONITOR POCT [facility] procedure are i n the results section. ECG 12 LEAD STAT 07/16/2019 8:31 Results for this INPATIENT [facility] procedure are i n the results section. TROPONIN I STAT 07/16/2019 8:04 Results for this [facility] procedure are i n the results section. US VENOUS BILAT Routine 07/16/2019 7:29 Results f or this LOWER EXTREM [facility] procedure are i n DOPPLER the results section. XR SHOULDER LT 2+ Routine 07/16/2019 7:03 Results for this VIEWS [facility] procedure are i n the results section. BEDSIDE GLUCOSE Routine 07/16/2019 5:33 Results f or this MONITOR POCT [facility] procedure are i n the results section. HEMOGLOBIN, BLOOD Routine 07/16/2019 4:57 Results for this [facility] procedure are i n the results section. BEDSIDE GLUCOSE Routine 07/16/2019 2:14 Results f or this MONITOR POCT [facility] procedure are i n the results section. BEDSIDE GLUCOSE Routine 07/16/2019 12:37 Results for this MONITOR POCT [facility] procedure are i n the results section. BT SECOND DRAW STAT 07/16/2019 12:28 Results f or this [facility] procedure are i n the results section. TYPE AND SCREEN STAT 07/16/2019 11:04 Results for this [facility] procedure are i n the results section. ANTIBODY SCREEN STAT 07/16/2019 11:04 Results for this [facility] procedure are i n the results section. BLOOD TYPE STAT 07/16/2019 11:04 Results for this [facility] procedure are i n the results section. COMPLETE BLOOD STAT 07/16/2019 11:04 Results f or this COUNT-NO DIFF [facility] procedure are in the results section. OPEN REDUCTION 07/16/2019 10:56 Closed fracture of INTERNAL FIXATION [facility] proximal end of PROXIMAL HUMERUS left humerus, FRACTURE unspecified fracture morphology, initial encounter PREP RBC LR Specified Time 07/16/2019 10:48 Results f or this [facility] procedure are i n the results section. ECG 12 LEAD Specified Time 07/16/2019 10:31 Results f or this INPATIENT [facility] procedure are i n the results section. BEDSIDE GLUCOSE Routine 07/16/2019 10:06 Results for this MONITOR POCT [facility] procedure are i n the results section. documented in this encounter Results (ABNORMAL) Bedside Glucose Monitor (07/17/2019 12:08 [facility]) P athologist Signature Glucose, Whole 217 (H) 70 - 180 07/17/2019 [facility] Blood mg/dL 12:15 [facility] Specimen Anatomical Collection Method Collection Time Receive d Time (Source) Location / / Volume Laterality Blood 07/17/2019 12:08 07/17/2019 [facility] 12:15 [facility] Edelmira Rodriugez MD LAB_1 Performing Organization Address City/State/ZIP Code Phon e Number [facility] [address] [place] [address] ECG 12 LEAD INPATIENT (07/17/2019 8:53 [facility]) P athologist Signature Ventricular Rate 66 BPM [facility] Atrial Rate 66 BPM [facility] P-R Interval 148 ms [facility] QRS Duration 88 ms [facility] QT 392 ms [facility] QTc 410 ms [facility] P [place] 38 degrees [facility] T [place] 37 degrees [facility] Specimen (Source) Anatomical Collection Method Collection Time Re ceived Time Location / / Volume Laterality 07/17/2019 8:53 [facility] Narrative [facility] - 07/17/2019 9:14 [facility] Sinus rhythm Voltage criteria for left ventricular hy pertrophy Abnormal ECG When compared with ECG of 16-JUL-2019 20 :31, No significant change was found Confirmed by Coleman Patel ([id number]) on 06/27 9:14:19 AM Procedure Note Coleman Patel MD - 07/17/2019Formatti ng of this note might be different from the original. Sinus rhythm Voltage criteria for left ventricular hy pertrophy Abnormal ECG When compared with ECG of 16-JUL-2019 20 :31, No significant change was found Confirmed by Coleman Patel ([id number]) on 06/27 9:14:19 AM Larisa Gaines MD PN ECG ORDERABLES Performing Organization Address City/State/ZIP Code Phon e Number [facility] [address] [place] [address] (ABNORMAL) Basic Metabolic Panel (IN AM) (07/17/2019 7:49 [facility]) Analysis Performed At Patho logist Time Signature Sodium 131 (L) 136 - 145 07/17/2019 [facility] mmol/L 8:42 [facility] Potassium 3.3 (L) 3.5 - 5.1 07/17/2019 [facility] mmol/L 8:42 [facility] Chloride 98 98 - 109 07/17/2019 [facility] mmol/L 8:42 [facility] CO2 25 20 - 29 07/17/2019 [facility] mmol/L 8:42 [facility] Anion Gap 8 7 - 16 07/17/2019 [facility] mmol/L 8:42 [facility] Calcium 8.4 8.4 - 10.4 07/17/2019 [facility] mg/dL 8:42 [facility] BUN 16 7 - 26 07/17/2019 [facility] mg/dL 8:42 [facility] Creatinine 0.65 0.55 - 07/17/2019 [facility] 1.02 mg/dL 8:42 [facility] GFR, Estimated >60 >60 07/17/2019 [facility] mL/min/1.7 8:42 [facility] 3m2 GFR, Est If >60 >60 07/17/2019 [facility] mL/min/1.7 8:42 [facility] Nepalese 3m2 Glucose 187 (H) 70 - 100 07/17/2019 [facility] mg/dL 8:42 [facility] Comment: The given reference range is fo r the fasting state. Non-fasting reference range for glucose is 70 - 180 mg/dL. Specimen Anatomical Collection Method / Collection Time Recei kaylene Time (Source) Location / Volume Laterality Blood Venipuncture / 07/17/2019 7:49 07/17/2019 7:56 Unknown [facility] Larisa Gaines MD LAB_1 Performing Organization Address [facility] Phon e Number [facility] [address] [place] [address] (ABNORMAL) Hemoglobin A1C Glycosylated (IN AM) (07/17/2019 7:49 [facility]) Analysis Performed At Patho logist Time Signature Hemoglobin A1C 6.7 (H) <=5.6 % 07/17/2019 [facility] 1:39 [facility] Specimen Anatomical Collection Method / Collection Time Recei kaylene Time (Source) Location / Volume Laterality Blood Venipuncture / 07/17/2019 7:49 07/17/2019 7:56 Unknown [facility] Narrative [facility] - 07/17/2019 1:39 P M [facility] For patients not previously diagnosed with diabetes: 5.7-6.4%: Increased risk for diabetes 6.5% and greater: Diagnostic for diabete s For patients diagnosed with diabetes: <8.0%: Goal of therapy for ages 18-75 Clinicians may recommend a higher or low er goal for specific individuals. Larisa Gaines MD LAB_1 Performing Organization Address [facility] Phon e Number [facility] [address] [place] [address] (ABNORMAL) Hemoglobin in AM POD #1 (07/17/2019 7:49 [facility]) P athologist Signature Hemoglobin 8.0 (L) 12.0 - 15.5 07/17/2019 [facility] g/dL 8:04 [facility] Specimen Anatomical Collection Method / Collection Time Recei kaylene Time (Source) Location / Volume Laterality Blood Venipuncture / 07/17/2019 7:49 07/17/2019 7:56 Unknown [facility] Gabriela Lopez RN, CREDIT AND COLLECTION MANAGER XM1 TANK DRIVER LAB_1 Performing Organization Address [facility] Phon e Number [facility] [address] [place] [address] (ABNORMAL) Bedside Glucose Monitor (07/17/2019 7:17 [facility]) athologist Signature Glucose, Whole 182 (H) 70 - 180 07/17/2019 [facility] Blood mg/dL 7:20 [facility] Specimen Anatomical Collection Method Collection Time Receive d Time (Source) Location / / Volume Laterality Blood 07/17/2019 7:17 AM 0 7:20 [facility] AM [facility] Edelmira Rodriguez MD LAB_1 Performing Organization Address [facility] Phon e Number [facility] [address] [place] [address] (ABNORMAL) Bedside Glucose Monitor (07/16/2019 10:04 PM [facility]) athologist Signature Glucose, Whole 333 (H) 70 - 180 07/16/2019 [facility] Blood mg/dL 10:10 [facility] Specimen Anatomical Collection Method Collection Time Receive d Time (Source) Location / / Volume Laterality Blood 07/16/2019 10:04 07/16/2019 [facility] 10:10 PM [facility] Edelmira Rodriguez MD LAB_1 Performing Organization Address City/[facility] Phon e Number [facility] [address] [place] [address] ECG 12 Lead Inpatient (07/16/2019 8:31 PM [facility]) athologist Signature Ventricular Rate 73 BPM [facility] Atrial Rate 73 BPM [facility] P-R Interval 152 ms [facility] QRS Duration 86 ms [facility] QT 376 ms [facility] QTc 414 ms [facility] P [place] 23 degrees [facility] R [place] 33 degrees [facility] T [place] 67 degrees [facility] Specimen (Source) Anatomical Collection Method Collection Time Re ceived Time Location / / Volume Laterality 07/16/2019 8:31 [facility] Narrative [facility] - 07/17/2019 6:38 [facility] Sinus rhythm ST elevation consider anterior injury or acute infarct ACUTE [place] / STEMI Abnormal ECG When compared with ECG of 16-JUL-2019 10 :31, ST elevation V2,3 is new, slight ST depr ession avf Confirmed by Coleman Patel ([id number]) on 06/27 6:38:17 AM Procedure Note Coleman Patel MD - 07/17/2019Formatti ng of this note might be different from the original. Sinus rhythm ST elevation consider anterior injury or acute infarct ACUTE IL / STEMI Abnormal ECG When compared with ECG of 16-JUL-2019 10 :31, ST elevation V2,3 is new, slight ST depr ession avf Confirmed by Coleman Patel ([id number]) on 06/27 6:38:17 AM Daria Peng APRN, CNP PN ECG ORDERABLES Performing Organization Address City/State/ZIP Code Phon e Number [facility] [address] [place] [address] Troponin I STAT (07/16/2019 8:04 PM [facility]) athologist Signature Troponin I 0.02 0.00 - 0.03 07/16/2019 [facility] ng/mL 8:33 [facility]ORY Specimen Anatomical Collection Method / Collection Time Recei kaylene Time (Source) Location / Volume Laterality Blood Venipuncture / 07/16/2019 8:04 07/16/2019 8:08 Unknown [facility] Daria Peng APRN, CNP LAB_1 Performing Organization Address City/[facility] Phon e Number [facility] [address] [place] [address] VENOUS BILAT LOWER EXTREM DOPPLER (07/16/2019 7:29 PM [facility]) Anatomical Region Laterality Modality Vascular, Leg Ultrasound Specimen (Source) Anatomical Collection Method Collection Time Re ceived Time Location / / Volume Laterality 07/16/2019 6:58 [facility] Impressions 07/16/2019 7:32 [facility] COMPARISON: ??None. CLINICAL HISTORY: ??dyspnea and swelling , evaluate for DVT; ; FINDINGS: ??The venous system of the low er extremities bilaterally was visualized using color-flow Doppler technique. ??The common femoral, proximal deep femoral, femoral, popliteal, and visualized port ions of the posterior tibial and peronea l veins bilaterally appear to have normal compression, color flow, and augmentation. The greater saphenous veins compress normally. ?? IMPRESSION: 1. No evidence of deep venous thrombosi s. Small calf vein thrombosis cannot be completely excluded by this technique. ?? Procedure Note Prashanth Padilla MD - 07/16/2019Fo rmatting of this note might be different from the original. IMPRESSION COMPARISON: None. CLINICAL HISTORY: dyspnea and swelling, evaluate for DVT; ; FINDINGS: The venous system of the lower extremities bilaterally was visualized using color-flow Doppler technique. The common femoral, proximal deep femoral, femoral, popliteal, and visualized portions of the posterior tibial and peroneal veins bila terally appear to have normal compression, color flow, and augmentation. The greater saphenous veins compress normally. IMPRESSION: 1. No evidence of deep venous thrombosi s. Small calf vein thrombosis cannot be completely excluded by this technique. Larisa Gaines MD RAD US XR Shoulder Lt 2+ Views (07/16/2019 7:03 [facility]) Anatomical Region Laterality Modality Upper Extremity, Shoulder Digital Radiog alexandra Specimen (Source) Anatomical Collection Method Collection Time Re ceived Time Location / / Volume Laterality 07/16/2019 6:22 [facility] Impressions 07/16/2019 7:06 [facility] COMPARISON: ??07/10/2019 FINDINGS: ??Interval plate and screw fix ation across the comminuted humeral neck fracture with improved alignment. A fracture fragment remains displaced medial to the humeral neck. Degenerative changes in the acromioclavicular joint. Procedure Note Lorne Hurtado MD - 07/16/2019Fo rmatting of this note might be different from the original. IMPRESSION COMPARISON: 07/10/2019 FINDINGS: Interval plate and screw fixat ion across the comminuted humeral neck fracture with improved alignment. A fracture fragment remains displaced medial to the humeral neck. Degenerative changes in the acromioclavicular joint. Gabriela Lopez RN, CREDIT AND COLLECTION MANAGER XM1 TANK DRIVER RAD GD (ABNORMAL) Bedside Glucose Monitor (07/16/2019 5:33 PM [facility]) P athologist Signature Glucose, Whole 244 (H) 70 - 180 07/16/2019 [facility] Blood mg/dL 5:45 [facility] Specimen Anatomical Collection Method Collection Time Receive d Time (Source) Location / / Volume Laterality Blood 07/16/2019 5:33 PM 0 5:45 [facility] PM [facility] Edelmira Rodriguez MD LAB_1 Performing Organization Address City/State/ZIP Code Phon e Number [facility] [address] [place] [address] (ABNORMAL) Hemoglobin (07/16/2019 4:57 PM [facility]) athologist Signature Hemoglobin 9.1 (L) 12.0 - 15.5 07/16/2019 [facility] g/dL 5:20 [facility] Specimen Anatomical Collection Method / Collection Time Recei kaylene Time (Source) Location / Volume Laterality Blood Venipuncture / 07/16/2019 4:57 07/16/2019 5:14 Unknown [facility] Gabriela Lopez RN, CREDIT AND COLLECTION MANAGER XM1 TANK DRIVER LAB_1 Performing Organization Address City/[facility] Phon e Number [facility] [address] [place] [id number] (ABNORMAL) Bedside Glucose Monitor (07/16/2019 2:14 PM [facility]) athologist Signature Glucose, Whole 206 (H) 70 - 180 07/16/2019 [facility] Blood mg/dL 2:20 [facility] Specimen Anatomical Collection Method Collection Time Receive d Time (Source) Location / / Volume Laterality Blood 07/16/2019 2:14 PM 0 2:20 [facility] PM [facility] Edelmira Rodriguez MD LAB_1 Performing Organization Address City/[facility]/ZIP Code Phon e Number [facility] [address] [place] [address] (ABNORMAL) Bedside Glucose Monitor (07/16/2019 12:37 [facility]) athologist Signature Glucose, Whole 183 (H) 70 - 180 07/16/2019 [facility] Blood mg/dL 2:40 [facility] Specimen Anatomical Collection Method Collection Time Receive d Time (Source) Location / / Volume Laterality Blood 07/16/2019 12:37 07/16/2019 2:40 PM [facility] Edelmira Rodriguez MD LAB_1 Performing Organization Address City/[facility] Code Phon e Number [facility] [address] [place] [address] Blood Type second draw (07/16/2019 12:28 [facility]) athologist Signature ABO A 07/16/2019 [facility] 12:58 [facility] BLOOD BANK RH Positive 07/16/2019 [facility] 12:58 [facility] BLOOD BANK Specimen Anatomical Collection Method / Collection Time Recei kaylene Time (Source) Location / Volume Laterality Blood Venipuncture / 07/16/2019 12:28 0 Unknown [facility] 12:40 [facility] Edelmira Rodriguez MD LAB_1 Performing Organization Address [facility] Phon e Number [facility] [address] [place] [address] Antibody Screen (07/16/2019 11:04 [facility]) [facility] Method Time Signature Antibody Screen Negative 07/16/2019 [facility] Interpretation 12:37 [facility] BLOOD BANK Specimen Anatomical Collection Method / Collection Time Recei kaylene Time (Source) Location / Volume Laterality Blood Venipuncture / 07/16/2019 11:04 0 Unknown [facility] 11:13 [facility] Gabriela Lopez RN, CREDIT AND COLLECTION MANAGER XM1 TANK DRIVER LAB_1 Performing Organization Address [facility] Phon e Number [facility] [address] [place] [address] Blood Type (07/16/2019 11:04 [facility]) P athologist Signature ABO A 07/16/2019 [facility] 12:37 [facility] BLOOD BANK RH Positive 07/16/2019 [facility] 12:37 [facility] BLOOD BANK Specimen Anatomical Collection Method / Collection Time Recei kayleen Time (Source) Location / Volume Laterality Blood Venipuncture / 07/16/2019 11:04 0 Unknown [facility] 11:13 [facility] Gabriela Lopez RN, CREDIT AND COLLECTION MANAGER XM1 TANK DRIVER LAB_1 Performing Organization Address [facility] Phon e Number [facility] [address] [place] [address] (ABNORMAL) Complete Blood Count-No Diff (07/16/2019 11:04 AM [facility]) [facility] Method Time Signature WBC 5.6 3.5 - 10.5 07/16/2019 [facility] x10(9)/L 11:26 [facility] RBC 2.99 (L) 3.90 - 07/16/2019 [facility] 5.03 11:26 [facility] x10(12)/L Hemoglobin 9.5 (L) 12.0 - 07/16/2019 [facility] 15.5 g/dL 11:26 [facility] HCT 28.0 (L) 34.9 - 07/16/2019 [facility] 44.5 % 11:26 [facility] MCV 93.6 80.0 - 07/16/2019 [facility] 100.0 fL 11:26 [facility] MCH 31.8 27.6 - 07/16/2019 [facility] 33.3 pg 11:26 [facility] MCHC 33.9 31.5 - 07/16/2019 [facility] 35.2 g/dL 11:26 [facility] RDW 12.3 11.9 - 07/16/2019 [facility] 15.5 % 11:26 [facility] Platelets 309 150 - 450 07/16/2019 [facility] x10(9)/L 11:26 [facility] Automated NRBC 0 <=0 /100 07/16/2019 [facility] WBC 11:26 [facility] Specimen Anatomical Collection Method / Collection Time Recei kaylene Time (Source) Location / Volume Laterality Blood Venipuncture / 07/16/2019 11:04 0 Unknown [facility] 11:13 [facility] Gabriela Lopez RN, CREDIT AND COLLECTION MANAGER XM1 TANK DRIVER LAB_1 Performing Organization Address City/State/[facility] Code Phon e Number [facility] [address] [place] [address] Prep RBC: , 1 Units (07/16/2019 10:48 AM [facility]) Component Value Ref Test Analysis Performed At [facility] Method Time Signature BLOOD PRODUCT [id number] [facility] CODE BLOOD BANK BLOOD UNIT NUMBER [id number] METHOD IST BLOOD BANK CROSSMATCH Compatible [facility] INTERPRETATION BLOOD BANK BLOOD DISPENSE Returned/Releas [facility] STATUS ed BLOOD BANK Unit Expiration [id number] [facility] Date BLOOD BANK UNIT BT BARCODE 6200 [facility] BLOOD B[facility] CODING SYSTEM ISBT [facility] PRODUCT RBC LR [facility] Specimen (Source) Anatomical Collection Method Collection Time Re ceived Time Location / / Volume Laterality Blood 07/16/2019 10:48 [facility] Gabriela Lopez RN, CREDIT AND COLLECTION MANAGER XM1 TANK DRIVER LAB_BLOOD PRODUCT S Performing Organization Address City/State/ZIP Code Phon e Number [facility] [address] [place] [address] ECG 12 Lead Inpatient (07/16/2019 10:31 AM [facility]) P athologist Signature Ventricular Rate 87 BPM [facility] Atrial Rate 87 BPM [facility] P-R Interval 152 ms [facility] QRS Duration 86 ms [facility] QT 364 ms [facility] QTc 438 ms [facility] P [place] 44 degrees [facility] R [place] 14 degrees [facility] T [place] 51 degrees [facility] Specimen (Source) Anatomical Collection Method Collection Time Re ceived Time Location / / Volume Laterality 07/16/2019 10:31 [facility] Narrative [facility] - 07/16/2019 11:01 [facility] Sinus rhythm Possible Left atrial enlargement Possible Anterior infarct (cited on or b efore 02-FEB-2004) Abnormal ECG When compared with ECG of 04-FEB-2004 06 :45, No significant change was found Confirmed by Ricki Colón ([id number]) on 06/27 11:01:04 AM Procedure Note Ricki Colón III, MD - 07/16/2019For matting of this note might be different from the original. Sinus rhythm Possible Left atrial enlargement Possible Anterior infarct (cited on or b efore 02-FEB-2004) Abnormal ECG When compared with ECG of 04-FEB-2004 06 :45, No significant change was found Confirmed by Ricki Colón ([id number]) on 06/27 11:01:04 AM Edelmira Rodriguez MD PN ECG ORDERABLES Performing Organization Address City/State/ZIP Code Phon e Number [facility] [address] [place] [address] Bedside Glucose Monitor (07/16/2019 10:06 AM [facility]) athologist Signature Glucose, Whole 177 70 - 180 07/16/2019 [facility] Blood mg/dL 10:10 [facility]ORY Specimen Anatomical Collection Method Collection Time Receive d Time (Source) Location / / Volume Laterality Blood 07/16/2019 10:06 07/16/2019 [facility] 10:10 AM [facility] Edelmira Rodriguez MD LAB_1 Performing Organization Address City/[facility]/ZIP [facility] Phon e Number [facility] [address] [place] [address] documented in this encounter Visit Diagnoses Diagnosis Closed fracture of left proximal humerus - Primary Closed fracture of unspecified part of u pper end of humerus Pain Generalized pain S/P ORIF (open reduction internal fixati on) fracture Other closed nondisplaced fracture of pr oximal end of left humerus, initial encounter Shortness of breath Cerebrovascular accident (CVA), unspecif ied mechanism ([facility]) Hypertension, unspecified type ([facility]) Hyperlipidemia LDL goal <70 ([facility]) Other and unspecified hyperlipidemia GERD (gastroesophageal reflux disease) Esophageal reflux Type 2 diabetes mellitus without complic ation, with long-term current use of insulin ([facility]) Plan of Care - Daria Peng APRN, KAI - 07/16/2019 6:21 PM CST Cross Cover Paged by bedside nursing that patient has ongoing chest discomfort. Per report, this occurred in PACU, noted patient was given Labetalol and Clonidine for her significantly elevated pressures. Pt had aEKG 10 am which showed NSR with AV block. Chest pressure is mid-sternal, non-radiating, no diaphoresis or nausea noted. Plan: Will obtain STAT EKG now to compare to this morning -troponin -ECHO ordered in AM per Day time rounder. -If Ortho okay with ASA will dose her. -If EKG and troponin stable will consider diuresis. Report Given to Dr. Sorenson, evening Cross Cover Hospitalist who will follow up with orders. Daria Peng APRN, KAI 6:25 PM 07/16/2019 FORMER documented in this encounter Admitting Diagnoses Diagnosis Closed fracture of left proximal humerus Closed fracture of unspecified part of u pper end of humerus documented in this encounter Administered Medications Inactive Administered Medications - up to 3 most recent administrations Medication Order MAR Action Action Date Dose Rate Site acetaminophen (TYLENOL) tablet Given 07/16/2019 10:00 AM [facility] 500 mg 1,000 mg 1,000 mg, Oral, ONCE, On Mon07/16/19 at 1000, For 1 dose, Give in Preop., Pre-op acetaminophen (TYLENOL) tablet 650 mg Given 07/17/2019 3:06 PM [facility] 650 mg 650 mg, Oral, QID, First dose on Mon07/16/19 at 2000, Until Discontinued, Post-op Given 07/17/2019 12:46 PM [facility] 650 mg Given 07/17/2019 8:09 AM [facility] 650 mg aspirin chewable tablet 81 mg Given 07/16/2019 8:07 PM [facility] 81 mg 81 mg, Oral, ONCE, On Mon07/16/19 at 1930, For 1 dose aspirin EC enteric coated tablet 162 mg Given 07/17/2019 10:47 AM [facility] 162 mg 162 mg, Oral, DAILY, First dose on Mon07/17/19 at 1015, Until Discontinued, Tablet should be swallowed whole. atorvastatin (LIPITOR) tablet 10 mg Given 07/16/2019 8:07 PM [facility] 10 mg 10 mg, Oral, DAILY - 1999, First dose on Mon07/16/19 at 2000, Until Discontinued calcium carbonate (TUMS) chewable tablet Given 07/17/2019 1:29 A M [facility] 500 mg 500-1,000 mg 500-1,000 mg, Oral, TID PRN, Heartburn, Starting on Mon07/17/19 at 0051, Until Mon07/17/19 at 1742, Each tablet provides 200 mg elemental calcium ceFAZolin (ANCEF) 1 g in dextrose 50 Started 07/17/2019 3:54 A M [facility] 1 g 100 mL/hr ml IVPB 1 g, Intravenous, Administer over 30 Minutes, Q8H (NON-STND), First dose on Mon07/16/19 at 2000, For 2 doses, Post-op Started 07/16/2019 8:39 PM [facility] 1 g 100 mL/hr cloNIDine (CATAPRES) tablet 0.3 mg Given 07/16/2019 3:15 PM [facility] 0.3 mg 0.3 mg, Oral, ONCE, On Mon07/16/19 at 1515, For 1 dose, Tube to #25, PACU (only) cloNIDine (CATAPRES) tablet 0.3 mg Given 07/16/2019 6:21 PM [facility] 0.3 mg 0.3 mg, Oral, ONCE, On Mon07/16/19 at 1700, For 1 dose cloNIDine (CATAPRES) tablet 0.3 mg Given 07/17/2019 2:27 PM [facility] 0.3 mg 0.3 mg, Oral, TID, First dose on Mon07/16/19 at 2000, Until Discontinued Given 07/17/2019 8:09 AM [facility] 0.3 mg Given 07/16/2019 8:07 PM [facility] 0.3 mg clopidogrel (PLAVIX) tablet 75 mg Given 07/17/2019 8:09 AM [facility] 75 mg 75 mg, Oral, DAILY, First dose on Mon07/17/19 at 0800, Until Discontinued dextrose (D50) injection 25 g 25 g (50 mL), Intravenous, PRN, Other, For glucose les s than 70 mg/dL for non- and patient or less than 60 mg /dL for patient, Starting on Mon07/16/19 at 1712, - Give for glucose le ss than 70 mg/dL for non- and patient or l ess than 60 mg/dL for patient and patient is NPO, lethargic, unconscious or unable to sw allow safely - Notify Clinician of hypoglycemic event AFTER appropriate cindy tment is given. - For unresponsive patient WITH existing IV ac cess: Administer rapid IV push - For alert patient WITH existing IV access: Administer undiluted IV push at a rate of 3 mL/minute - For patient WITHOUT existing IV access: No [facility] IV nurse or Resident Clinician to establish an access site fluticasone propionate (FLONASE) 50 MCG/ACT Given 06/27 8:09 AM [facility] 2 Sprays nasal spray 2 [place] 2 [place], Both Nostrils, BID, First dose on Mon07/16/19 at 2000, Until Discontinued, Shake bottle gently before using. Prime pump prior to first use (press six times until fine mist appears) Blow nose to clear nostrils. Insert applicator into nostril, keeping bottle upright, and close off other nostril. Breathe in through the nose. While inhaling press pump to release spray. Nasal applicator may be removed and rinsed with warm water to clean. Given 07/16/2019 8:39 PM [facility] 2 Sprays glucose (GLUTOSE) oral gel 15-30 g of gl ucose 15-30 g of glucose, Oral, PRN, Hypoglycemia, blood glu cose less than 70mg/dL, Starting on Mon07/16/19 at 1712, Until Mon07/17/19 at 1742, As directed by the Hypoglycemia Treatment Protocol. 37.5g tube delivers 1 5g of glucose HYDROmorphone injectable 0.2 mg Given 07/17/2019 6:48 AM [facility] 0.2 mg 0.2 mg, Intravenous, Q1H PRN, Other, Severe Pain (pain score 8-10) if patient is unable to take ORAL or for pain score increasing by 3 in 30 minutes., Starting on Mon07/16/19 at 1618, Until Mon07/17/19 at 1742, For 48 hours, May administer 1 hour after ORAL opioid administration if given for pain score escalation. Do NOT administer at the same time as ORAL opioids. HOLD if on COMBINE DRIVER., Post-op Given 07/17/2019 4:49 AM [facility] 0.2 mg HYDROmorphone injectable 0.2-0.4 mg Given 07/17/2019 5:27 AM [facility] 0.4 mg 0.2-0.4 mg, Intravenous, ONCE PRN, Other, Severe pain (pain score 8-10) uncontrolled by ORAL or IV alone or for pain score increasing by 3 in 30minutes., Starting on Mon07/16/19 at 1618, Until Mon07/17/19 at 1617, For 24 hours, Do NOT administer other opioids within 60 minutes after IV + ORAL dose is given. May administer IV + ORAL dose 30 minutes after previous IV or ORAL dose. If patient is opioid na??ve, use lower range doses., Post-op insulin glargine (LANtus) Given 07/16/2019 8:26 PM [facility] 18 Units Abdominal Tissue 100 UNIT/ML injection 18 Units 18 Units, Subcutaneous, DAILY, First dose on Mon07/16/19 at 2100, Until Discontinued, DO NOT mix with other insulin or give IV. Hazardous waste disposal required. insulin lispro (HumALOG) Given 07/17/2019 12:47 PM 2 Units Abdominal Tissue injection vial [facility] Subcutaneous, TID WITH MEALS, First dose on Mon07/16/19 at 1730, Mealtime Insulin: Give 1 unit per carb choice (15 grams of carbohydrate) Given 07/17/2019 8:13 AM [facility] 2 Units Abdom inal Tissue Given 07/16/2019 5:30 PM [facility] 3 Units Abdom inal Tissue insulin lispro (HumALOG) Given 07/17/2019 1:32 AM 1 Units Abdominal Tissue injection vial [facility] Subcutaneous, PRN SEE ADMIN INSTRUCTIONS, Other, Give with snack., Starting on Mon07/16/19 at 1712, For SNACKS, give 1 unit per carb choice (15 grams of carbohydrate) insulin lispro (HumALOG) Given 07/17/2019 12:47 PM 2 Units Abdominal Tissue injection vial [facility] Subcutaneous, TID WITH MEALS, First dose on Mon07/16/19 at 1730, For Blood Glucose: 150 to 200 mg/dL give 1 unit 201 to 250 mg/dL give 2 units 251 to 300 mg/dL give 3 units 301 to 350 mg/dL give 4 units 351 to 400 mg/dL give 5 units Call MD for BGS>400 mg/dL. Call MD to consider adjusting sliding scale or meal-time insulin for two consecutive BGS>300 mg/dL. Recommend all patients on insulin should have orders for Hypoglycemia Management and Treatment - please order separately. Given 07/17/2019 8:11 AM [facility] 1 Units Abdom inal Tissue Given 07/16/2019 8:16 PM [facility] 2 Units Abdom inal Tissue insulin lispro (HumALOG) injection vial Given 07/16/2019 10:26 PM [facility] 3 Units Othe r Subcutaneous, HS, First dose on Mon07/16/19 at 2100, For Blood Glucose: 201 to 250 mg/dL give 1 unit 251 to 300 mg/dL give 2 units 301 to 350 mg/dL give 3 units 351 to 400 mg/dL give 4 units Call MD for BGS >400 mg/dL. Call MD to consider adjusting sliding scale or meal-time insulin for two consecutive BGS>300 mg/dL. Recommend all patients on insulin should have orders for Hypoglycemia Management and Treatment - please order separately. ketorolac (TORADOL) injection 15 mg Given 07/17/2019 8:45 AM [facility] 15 mg 15 mg, Intravenous, Q6H, First dose on Mon07/17/19 at 0845, Last dose on Mon07/18/19 at 0200, For 24 hours labetalol (NORMODYNE) injection 5 mg Given 07/16/2019 3:15 PM [facility] 5 mg 5 mg, Intravenous, ONCE, On Mon07/16/19 at 1515, For 1 dose, Give over 1 to 2 minutes, PACU (only) lactated ringers infusion Started 07/16/2019 10:51 AM [facility] 25 mL/hr 25 mL/hr Righ t Hand 25 mL/hr, Intravenous, CONTINUOUS, Starting on Mon07/16/19 at 1000, Administer on all preop surgery patients, ages 12 and older, unless specified differently in the Protocol for Preop Initiation of IV fluids Order Set., Pre-op lidocaine PF (XYLOCAINE) 1 % Given 07/16/2019 10:51 AM [facility] 0.1 m L Right Hand injection 0.1-0.3 mL 0.1-0.3 mL, Subcutaneous, ONCE, On Mon07/16/19 at 1000, For 1 dose, Lidocaine to be used for IV starts unless patient refuses., Pre-op magnesium hydroxide (MILK OF MAGNESIA) Given 07/17/2019 8:09 AM [facility] 30 mL suspension 30 mL 30 mL, Oral, DAILY, First dose on Mon07/17/19 at 0800, Until Discontinued, Hold for loose stools., Post-op magnesium oxide-amino acids Given 07/16/2019 8:07 PM [facility] 2 Table ts (DB-AYMR-[id number]) tablet 2 Tablet 2 Tablet, Oral, HS, First dose on Mon07/16/19 at 2100, Until Discontinued, Provides 133 mg elemental Magnesium/tablet (2 tabs equivalent to one Mag-Ox 400 mg) midazolam (VERSED) injection 0.5-1 mg Given 07/16/2019 3:33 PM [facility] 1 mg 0.5-1 mg, Intravenous, [id number], Anxiety, Starting on Mon07/16/19 at 1535, Until Mon07/16/19 at 1617, Maximum cumulative dose is 2 mg. TO BE GIVEN IN PACU ONLY., PACU/Recovery midazolam (VERSED) injection 1-2 mg Given 07/16/2019 11:11 AM [facility] 1 mg 1-2 mg, Intravenous, [id number], Sedation, Anxiety, Procedure, Starting on Mon07/16/19 at 0956, Until Mon07/16/19 at 1617, As directed by anesthesiologist MAX Dose 2mg, Pre-op ondansetron (ZOFRAN) injection 4 mg Given 07/17/2019 5:34 AM [facility] 4 mg 4 mg, Intravenous, Q4H PRN, Nausea, Vomiting, Starting on Mon07/16/19 at 1653, Until Mon07/17/19 at 1742, Give IV if unable to take oral., Post-op ondansetron (ZOFRAN-ODT) disintegrating tablet 4 mg 4 mg, Oral, Q4H PRN, Nausea, Vomiting, S tarting on Mon07/16/19 at 1653, Until Mon07/17/19 at 1742, Do not swallow tablet whole. Allow to dissolve on the tongue without chewing., Post-op oxyCODONE (ROXICODONE) immediate release tablet Given 07/17/2019 5:27 AM [facility] 5 mg 2.5-5 mg 2.5-5 mg, Oral, ONCE PRN, Other, Severe Pain (pain score 8-10) uncontrolled by ORAL or IV alone or for pain score increasing by 3 in 30minutes., Starting on Mon07/16/19 at 1618, Until Mon07/17/19 at 1617, For 24 hours, Do NOT administer other opioids within 60 minutes after IV + ORAL dose is given. May administer IV + ORAL dose 30 minutes after previous IV or ORAL dose. If patient is opioid na??ve, use lower range doses., Post-op oxyCODONE (ROXICODONE) immediate release tablet Given 07/17/2019 8:09 AM [facility] 5 mg 2.5-5 mg 2.5-5 mg, Oral, Q2H PRN, Other, Moderate Pain (pain score 5-7), Severe Pain (pain score 8-10), Starting on Mon07/16/19 at 1618, Until Mon07/17/19 at 0823, Do NOT administer at the same time as IV opioids. May administer 1 hour after IV opioid administration. HOLD if on COMBINE DRIVER. Use of ORAL opioids is encouraged as patients anticipate discharge. (IV medications will be discontinued 48 hours post-op.) May give for anticipatory pain (ie prior to therapies, procedures) regardless of current pain score, Post-op Given 07/17/2019 3:48 AM [facility] 5 mg Given 07/17/2019 1:28 AM [facility] 2.5 mg oxyCODONE (ROXICODONE) immediate release Given 07/17/2019 3:07 P M [facility] 10 mg tablet 5-10 mg 5-10 mg, Oral, Q2H PRN, Pain, Severe Pain (pain score 8-10), Starting on Mon07/17/19 at 0830, Until Mon07/17/19 at 1742 Given 07/17/2019 12:46 PM [facility] 10 mg Given 07/17/2019 10:46 AM [facility] 10 mg senna (SENOKOT) tablet 1 Tablet Given 07/16/2019 8:07 PM [facility] 1 Tablet 1 Tablet, Oral, DAILY - 1999, First dose on Mon07/16/19 at 2000, Until Discontinued, Give every day while on opioids (stimulant) starting day of surgery. Hold for loose stools., Post-op sodium chloride 0.9% 0.9 % injection - ADS Given 07/17/2019 9:00 AM [facility] Override Pull Starting on Mon07/17/19 at 0844, Until Mon07/17/19 at 0900, For 1 dose, Shagufta Ramos : cabinet override sodium chloride 0.9% 0.9 % injection - ADS Given 07/17/2019 2:30 PM [facility] Override Pull Starting on Mon07/17/19 at 1422, Until Mon07/17/19 at 1430, For 1 dose, Shagufta Ramos : cabinet override sodium chloride 0.9% infusion Started 07/16/2019 4:45 PM [facility] 75 mL/hr Intravenous, at 75 mL/hr, CONTINUOUS, Starting on Mon07/16/19 at 1415, Post-op sodium chloride 0.9% injection 10-60 mL Given 07/17/2019 4:49 AM [facility] 10 mL 10-60 mL, Intravenous, PRN, Line Patency, Starting on Mon07/16/19 at 1046, Until Mon07/17/19 at 1742 documented in this encounter Active and Recently Administered Medications Times are shown in [facility]. Scheduled Medication Order 07/15/2019 07/16/2019 07/17/2019 acetaminophen (TYLENOL) tablet 1,000 mg (COMPLETED) 1000 (Given - Provider: Toya Rodriguez RN - Comment: 500mg given as ordered by Dr. Jordan) 1,000 mg, Oral, ONCE, Mon07/16/19 at 1000, For 1 dose, Give in P reop., Pre-op acetaminophen (TYLENOL) tablet 650 mg 20 07 (Given - Provider: Arjun Be RN) 0809 (Given - Provider: Shagufta Coleman RN)1246 (Given - Provider: Shagufta Magallanes RN)1506 (Given - Provider: Shagufta Magallanes RN) 650 mg, Oral, QID, First dose on Mon07/16/19 at 2000, Post-op aspirin chewable tablet 81 mg (COMPLETED) 2006 (Given - Provider: Arjun Be RN) 81 mg, Oral, ONCE, On Mon07/16/19 at 1930, For 1 dose aspirin EC enteric coated tablet 162 mg 1047 (Given - Provider: Shagufta Magallanes RN) 162 mg, Oral, DAILY, First dose on Mon at 1015, Tablet should be swallowed whole. atorvastatin (LIPITOR) tablet 10 mg 2006 (Given - Provider: Arjun Be RN) 10 mg, Oral, DAILY - 1999, First dose on Mon07/16/19 at 1999 ceFAZolin (aka ANCEF) 2 g in dextrose 100 ml IVPB (COMPLETED ) 1140 (Given - Provider: Kaiden Peterson APRN, ENGINEERING SECRETARY) 2 g, Intravenous, Administer over 30 Min utes, ONCE, Mon07/16/19 at 1000, For 1 dose, Infuse within 60 minutes prior to incision; Re-dose 1 gram IV every 4 hours after initial dose until incision closed., Pre-op ceFAZolin (ANCEF) 1 g in dextrose 50 ml IVPB (COMPLETED) 2038 (Started - Provider: Arjun Be RN)210 (Infused - Provider: Arjun Be RN) 0354 (Started - Provider: Arjun Be RN)0424 (Infused - Provider: Arjun Be RN) 1 g, Intravenous, Administer over 30 Min utes, Q8H (NON-STND), First dose on Mon07/16/19 at 1999, For 2 doses, Post-op cloNIDine (CATAPRES) tablet 0.3 mg (COMPLETED) 1515 (Given - Provider: Nicole Renae RN) 0.3 mg, Oral, ONCE, Mon07/16/19 at 1515, For 1 dose, Tube to #25 , PACU (only) cloNIDine (CATAPRES) tablet 0.3 mg (COMPLETED) 1821 (Given - Provider: Shagufta Magallanes RN - Comment: Pt was refusing it.) 0.3 mg, Oral, ONCE, Mon07/16/19 at 1700, For 1 dose cloNIDine (CATAPRES) tablet 0.3 mg 2006 (Given - Provider: Arjun Be RN) 08 (Given - Provider: Shagufta Coleman RN)1427 (Given - Provider: Shagufta Magallanes, ROCCO) 0.3 mg, Oral, TID, First dose on Mon07/16/19 at 2000 clopidogrel (PLAVIX) tablet 75 mg 808 (Given - Provider: Shagufta Magallanes RN) 75 mg, Oral, DAILY, First dose on Mon07/17/19 at 0800 fluticasone propionate (FLONASE) 50 MCG/ACT nasal spray 2 Sp ray 2038 (Given - Provider: Arjun Be RN) 808 (Given - Provider: Shagufta Magallanes RN) 2 [place], Both Nostrils, BID, First dose on Mon07/16/19 at 2000, Shake bottle gently before using. Prime pump prior to first use (press six times until fine mist appears) Blow nose to clear nostrils. Ins ert applicator into nostril, keeping bot tle upright, and close off other nostril. Breathe in through the nose. While inhaling press pump to release spray. Nasal applicator may be removed and rinsed with warm water to clean. insulin glargine (LANtus) 100 UNIT/ML injection 18 Units 2025 (Given - Provider: Arjun Be RN) 18 Units, Subcutaneous, DAILY, First dos e on Mon07/16/19 at 2100, DO NOT mix with other insulin or give IV. Hazardous waste disposal required. insulin lispro (HumALOG) injection vial(Linked Group 1) 1730 (Given - Provider: Arjun Be RN) 0813 (Given - Provider: Shagufta Coleman RN)1247 (Given - Provider: Shagufta Magallanes RN) Subcutaneous, TID WITH MEALS, First dose on Mon07/16/19 at 1730, Mealtime Insulin: Give 1 unit per carb choice (15 grams of carbohydrate) insulin lispro (HumALOG) injection vial(Linked Group 1) 2015 (Given - Provider: Arjun Be RN - Comment: eating now) 0811 (Given - Provider: Shagufta Magallanes, RN)1247 (Given - Provider: Shagufta Magallanes, RN) Subcutaneous, TID WITH MEALS, First dose on Mon07/16/19 at 1730, For Blood Glucose: 150 to 200 mg/dL give 1 unit 201 to 250 mg/dL give 2 units 251 to 300 mg/dL give 3 units 301 to 350 mg/dL give 4 units 351 to 400 mg/dL give 5 units Call MD f or BGS>400 mg/dL. Call MD to consider adjusting sliding scale or meal-time insulin for two consecutive BGS>300 mg/dL. Recommend all patients on insulin shou ld have orders for Hypoglycemia Manageme nt and Treatment - please order separately. insulin lispro (HumALOG) injection vial(Linked Group 1) 2008 (Not Given - Provider: Arjun Be RN - Reason: Other (Enter Reason in Comment Area) - Comment: error)222 (Given - Provider: Arjun Be RN - Comment: hip) Subcutaneous, HS, First dose on 07/16 at 2100, For Blood Glucose: 201 to 250 mg/dL give 1 unit 251 to 300 mg/dL give 2 units 301 to 350 mg/dL give 3 units 351 to 400 mg/dL give 4 units Call MD for BGS >400 mg/dL. Call MD to consider adj usting sliding scale or meal-time insulin for two consecutive BGS>300 mg/dL. Recommend all patients on insulin should have orders for Hypoglycemia Management and Treatment - please order separately. ketorolac (TORADOL) injection 15 mg 0845 (Given - Provider: Shagufta Magallanes, ROCCO)1427 (Not Given - Provider: Shagufta Magallanes RN - Reason: Patient/family refused) 15 mg, Intravenous, Q6H, First dose on Mon07/17/19 at 0845, For 24 hours labetalol (NORMODYNE) injection 5 mg (COMPLETED) 1515 (Given - Provider: Nicole Renae RN) 5 mg, Intravenous, ONCE, Mon07/16/19 at 1515, For 1 dose, Give over 1 to 2 minutes, PACU (only) lidocaine PF (XYLOCAINE) 1 % injection 0.1-0.3 mL (COMPLETED ) 1051 (Given - Provider: Toya Rodriguez, ROCCO) 0.1-0.3 mL, Subcutaneous, ONCE, 07/16 at 1000, For 1 dose, Lidocaine to be used for IV starts unless patient refuses., Pre-op magnesium hydroxide (MILK OF MAGNESIA) suspension 30 mL 08 (Given - Provider: Shagufta Magallanes, RN) 30 mL, Oral, DAILY, First dose on Mon at 0800, Hold for loose stools., Post-op magnesium oxide-amino acids (KO-SCBR-MHVLIOR) tablet 2 Table t 2006 (Given - Provider: Arjun Be, ROCCO) 2 Tablet, Oral, HS, First dose on Mon at 2100, Provides 133 mg elemental Magnesium/tablet (2 tabs equivalent to one Mag-Ox 400 mg) senna (SENOKOT) tablet 1 Tablet 2006 (Gi randall - Provider: Arjun Be, ROCCO) 1 Tablet, Oral, DAILY - 1999, First dose on Mon07/16/19 at 2000, Give every day while on opioids (stimulant) starting day of surgery. Hold for loose stools., Post-op Continuous Medication Order 07/15/2019 07/16/2019 07/17/2019 lactated ringers infusion (CANCELED) 105 1 (Started - Provider: Toya Rodriguez RN)1407 (Anesthesia Fluid - Provider: Kaiden Peterson APRN, ENGINEERING SECRETARY) 25 mL/hr, Intravenous, at 25 mL/hr, CONT INUOUS, Starting Mon07/16/19 at 1000, Administer on all preop surgery patients, ages 12 and older, unless specified differently in the Protocol for Preop Initiation of IV fluids Order Set., Pre-op sodium chloride 0.9% infusion 1645 (Started - Pr ovider: Micki Guillaume RN) 0828 (Stopped - Provider: Shagufta Magallanes, ROCCO) Intravenous, at 75 mL/hr, CONTINUOUS, Starting Mon07/16/19 at 14 15, Post-op PRN Medication Order 07/15/2019 07/16/2019 07/17/2019 bisacodyl (DULCOLAX) rectal suppository 10 mg 10 mg, Rectal, DAILY PRN, Other, Moderat e Constipation, Starting Mon07/16/19 at 1618, Post-op calcium carbonate (TUMS) chewable tablet 500-1,000 mg 0129 (Given - Provider: Arjun Be RN) 500-1,000 mg, Oral, TID PRN, Heartburn, Starting Mon07/17/19 at 0051, Each tablet provides 200 mg elemental calcium dextrose (D50) injection 25 g 25 g (50 mL), Intravenous, PRN, Other, F or glucose less than 70 mg/dL for non- and patient or less than 60 mg/dL for patient, Starting Mon07/16/19 at 1712, - Give for glucose less than 70 mg/dL for non- and patient or less than 60 mg/dL for patient and patient is NPO, lethargic, unconscious or unable to swallow safely - Notify Clinician of hypogl ycemic event AFTER appropriate treatment is given. - For unresponsive patient WITH existing IV access: Administer rapid IV push - For alert patient WITH existing IV access: Administer undiluted IV push at a rate of 3 mL/minute - For patient W ITHOUT existing IV access: Notify IV nurse or Resident Clinician to establish an access site glucose (GLUTOSE) oral gel 15-30 g of glucose 15-30 g of glucose, Oral, PRN, Hypoglyce robert, blood glucose less than 70mg/dL, Starting Mon07/16/19 at 1712, As directed by the Hypoglycemia Treatment Protocol. 37.5g tube delivers 15g of glucose HYDROmorphone (DILAUDID) tablet 2-4 mg 2-4 mg, Oral, Q2H PRN, Pain, Starting We 07/17/19 at 0822, Take 2mg for pain rating 0-5, take 4mg for pain rating 6-10., Do NOT administer at the same time as IV opioids. May administer 1 hour after IV opioid administration. HOLD if on COMBINE DRIVER., Use of ORAL opioids is encouraged as patients anticipate discharge. (IV medications will be discontinued 48 hours post-op.), May give for anticipatory pain (ie pr ior to therapies, procedures) regardless of current pain score HYDROmorphone injectable 0.2 mg 0449 (Given - Provider: Arjun Be RN)0648 (Given - Provider: Arjun Be RN) 0.2 mg, Intravenous, Q1H PRN, Other, Sev ere Pain (pain score 8-10) if patient is unable to take ORAL or for pain score increasing by 3 in 30 minutes., Starting Mon07/16/19 at 1618, For 48 hours, May adm inister 1 hour after ORAL opioid adminis tration if given for pain score escalation. Do NOT administer at the same time as ORAL opioids. HOLD if on COMBINE DRIVER., Post-op HYDROmorphone injectable 0.2-0.4 mg(Linked Group 2) 0527 (Given - Provider: Arjun Be RN) 0.2-0.4 mg, Intravenous, ONCE PRN, Other , Severe pain (pain score 8-10) uncontrolled by ORAL or IV alone or for pain score increasing by 3 in 30minutes., Starting Mon07/16/19 at 1618, For 24 hours, Do N OT administer other opioids within 60 mi nutes after IV + ORAL dose is given. May administer IV + ORAL dose 30 minutes after previous IV or ORAL dose. If patient is opioid na??ve, use lower range doses., Post-op insulin lispro (HumALOG) injection vial(Linked Group 1) 0132 (Given - Provider: Arjun Be RN) Subcutaneous, PRN SEE ADMIN INSTRUCTIONS , Other, Give with snack., Starting Mon07/16/19 at 1712, For SNACKS, give 1 unit per carb choice (15 grams of carbohydrate) melatonin tablet 3 mg 3 mg, Oral, HS PRN, Sedation, sleep, Starting Mon07/16/19 at 161 8, Post-op midazolam (VERSED) injection 0.5-1 mg (CANCELED) 1533 (Given - Provider: Nicole Renae RN) 0.5-1 mg, Intravenous, [id number], Anxiety , Starting Mon07/16/19 at 1535, Maximum cumulative dose is 2 mg. TO BE GIVEN IN PACU ONLY., PACU/Recovery midazolam (VERSED) injection 1-2 mg (CANCELED) 1111 (Given - Provider: Toya Rodriguez, RN) 1-2 mg, Intravenous, [id number], Sedation, Anxiety, Procedure, Starting Mon07/16/19 at 0956, As directed by anesthesiologist MAX Dose 2mg, Pre-op naloxone (NARCAN) injection 0.08 mg 0.08 mg, Intravenous, PRN, Other, Opioid Reversal, Starting Mon07/16/19 at 1618, Dilute 0.4mg/1mL with 9mL NS, then 0.08mg = 2mL. Give 0.08mg/2mL every 3 minutes as needed. Maximum total dose = 2mg., Post-op ondansetron (ZOFRAN) injection 4 mg(Linked Group 3) 0534 (Given - Provider: Arjun Be RN) 4 mg, Intravenous, Q4H PRN, Nausea, Vomi ting, Starting Mon07/16/19 at 1653, Give IV if unable to take oral., Post-op ondansetron (ZOFRAN-ODT) disintegrating tablet 4 mg(Linked Group 3) 0534 (See Alternative - Provider: Arjun Be RN) 4 mg, Oral, Q4H PRN, Nausea, Vomiting, S tarting Mon07/16/19 at 1653, Do not swallow tablet whole. Allow to dissolve on the tongue without chewing., Post-op oxyCODONE (ROXICODONE) immediate release tablet 2.5-5 mg(Linked Group 2) 0527 (Given - Provider: Arjun Be RN) 2.5-5 mg, Oral, ONCE PRN, Other, Severe Pain (pain score 8-10) uncontrolled by ORAL or IV alone or for pain score increasing by 3 in 30minutes., Starting Mon07/16/19 at 1618, For 24 hours, Do NOT admini ster other opioids within 60 minutes aft er IV + ORAL dose is given. May administer IV + ORAL dose 30 minutes after previous IV or ORAL dose. If patient is opioid na??ve, use lower range doses., Post-op oxyCODONE (ROXICODONE) immediate release tablet 2.5-5 mg (CANCEL ED) 0128 (Given - Provider: Arjun Be RN)0348 (Given - Provider: Arjun Be RN)0809 (Given - Provider: Shagufta Magallanes, ROCCO) 2.5-5 mg, Oral, Q2H PRN, Other, Moderate Pain (pain score 5-7), Severe Pain (pain score 8-10), Starting Mon07/16/19 at 1618, Do NOT administer at the same time as IV opioids. May administer 1 hour after IV opioid administration. HOLD if on PC A. Use of ORAL opioids is encouraged as patients anticipate discharge. (IV medications will be discontinued 48 hours post-op.) May give for anticipatory pain (ie prior to therapies, procedures) regardless of current pain score , Post-op oxyCODONE (ROXICODONE) immediate release tablet 5-10 mg 0845 (Given - Provider: Shagufta Magallanes RN)1046 (Given - Provider: Shagufta Magallanes RN)1246 (Given - Provider: Shagufta Magallanes, ROCCO)1507 (Given - Provider: Shagufta Magallanes, ROCCO) 5-10 mg, Oral, Q2H PRN, Pain, Severe Felipe n (pain score 8-10), Starting Mon07/17/19 at 0830 sodium chloride 0.9% injection 10-60 mL 0449 (Given - Provider: Arjun Be RN) 10-60 mL, Intravenous, PRN, Line Patency, Starting Mon07/16/19 a t 1046 sodium chloride for irrigation 0.9 % (CANCELED) 1315 (Given - Provider: Edelmira Rodriguez MD) ONCE PRN, Starting Mon07/16/19 at 1315, Intra-op sodium phosphate (FLEET) enema 1 Enema 1 Enema, Rectal, PRN, Other, Severe Cons tipation, Starting Mon07/16/19 at 1618, Post-op traZODone (DESYREL) tablet 12.5-25 mg 12.5-25 mg, Oral, HS PRN, Sleep, if lauren tonin is ineffective., Starting Mon07/16/19 at 1618, Post-op vancomycin (VANCOCIN) powder for intra-op use (CANCELED) 1315 (Given - Provider: Edelmira Rodriguez MD) ONCE PRN, Starting Mon07/16/19 at 1315, Intra-op No Frequency Medication Order 07/15/2019 07/16/2019 07/17/2019 sodium chloride 0.9% 0.9 % injection - ADS Override Pull (COMPLE CARLA) 0900 (Given - Provider: Shagufta Magallanes, ROCCO) Starting on Mon07/17/19 at 0844, Until W ed 07/17/19 at 0900, For 1 dose, Shagufta Ramos : cabinet override sodium chloride 0.9% 0.9 % injection - ADS Override Pull (COMPLE CARLA) 1430 (Given - Provider: Shagufta Magallanes, ROCCO) Starting on Mon07/17/19 at 1422, Until W ed 07/17/19 at 1430, For 1 dose, Shagufta Ramos : cabinet override Linked Groups Order Group 1: insulin lispro (HumALOG) injection vialJump to med Subcutaneous, TID WITH MEALS, First dose on Mon07/16/19 at 1730
Mealtime Insulin: Give 1 unit per carb choice (15 grams of carbohydrate)
And insulin lispro (HumALOG) injection vialJump to med Subcutaneous, PRN SEE ADMIN INSTRUCTIONS , Other, Give with snack., Starting Mon07/16/19 at 1712
For SNACKS, give 1 unit per carb choice (15 grams of carbohydrate)
And insulin lispro (HumALOG) injection vialJump to med Subcutaneous, TID WITH MEALS, First dose on Mon07/16/19 at 1730
For Blood Glucose: 150 to 200 mg/dL give 1 unit 201 to 250 mg/dL give 2 units 251 to 300 mg/dL give 3 units 301 to 350 mg/dL give 4 units 351 to 400 mg/dL give 5 units Call MD for BGS>400 mg/dL. Call MD to consider adjusting sliding scale or meal-time insulin for two co nsecutive BGS>300 mg/dL. Recommend all p atients on insulin should have orders for Hypoglycemia Management and Treatment - please order separately.
And insulin lispro (HumALOG) injection vialJump to med Subcutaneous, HS, First dose on 07/16 at 2100
For Blood Glucose: 201 to 250 mg/dL give 1 unit 251 to 300 mg/dL give 2 units 301 to 350 mg/dL give 3 units &am p;nbsp;351 to 400 mg/dL give 4 units &nb sp;Call MD for BGS >400 mg/dL. Call MD to consider adjusting sliding scale or meal-time insulin for two consecutive BGS>300 mg/dL. Recommend all patients on insulin should have orders for Hypoglycemia Management and Treatment - please order separately.
Group 2: HYDROmorphone injectable 0.2-0.4 mgJump to med 0.2-0.4 mg, Intravenous, ONCE PRN, Other , Severe pain (pain score 8-10) uncontrolled by ORAL or IV alone or for pain score increasing by 3 in 30minutes., Starting Mon07/16/19 at 1618, For 24 hours
Do NOT administer other opioids within 60 minutes after IV + ORAL dose is given. May administer IV + ORAL dose 30 minutes after previous IV or ORAL dose. If patient is opioid na??ve, use lower range doses.
Post-op And oxyCODONE (ROXICODONE) immediate release tablet 2.5-5 mgJump to med 2.5-5 mg, Oral, ONCE PRN, Other, Severe Pain (pain score 8-10) uncontrolled by ORAL or IV alone or for pain score increasing by 3 in 30minutes., Starting Mon07/16/19 at 1618, For 24 hours
Do NO T administer other opioids within 60 min utes after IV + ORAL dose is given. May administer IV + ORAL dose 30 minutes after previous IV or ORAL dose. If patient is opioid na??ve, use lower range doses.
Post-op Group 3: ondansetron (ZOFRAN) injection 4 mgJump to med 4 mg, Intravenous, Q4H PRN, Nausea, Vomi ting, Starting Mon07/16/19 at 1653
Give IV if unable to take oral.
Post-op Or ondansetron (ZOFRAN-ODT) disintegrating tablet 4 mgJump to med 4 mg, Oral, Q4H PRN, Nausea, Vomiting, S tarting 07/16/19 at 1653
Do not swallow tablet whole. Allow to dissolve on the tongue without chewing.
Post-op documented in this encounter Care Teams Tomato Pulper Operator Relationship Specialty Start Date End Date Lina Meléndez MD PCP - General Internal Medicine 12/20/[address] [place] [address] documented as of this encounter
--- OUTSIDE RECORDS SUMMARY | 2022-04-05 15:45 | XMS_ITS | Encounter Summary ---
:1945 [facility] Address [address] [place] [address] Care Team Providers Name Role Phone Lina Meléndez MD Primary Care Provider Reason for Visit Procedure/Equipment (Routine) - Incomplete Specialty Diagnoses / Procedures Referred By Contact Refer red To Contact Procedures Provider, Foreign Images Foreign Image(S) XR Shoulder [address] [place] [address] Referral ID Status Reason Start Date Expiration Date Visits V isits Requested Authorized [id number] Incomplete 07/12/2019 10/10/2020 1 1 Encounter Details Date Type Department Care Team Description 07/04/2019 Ancillary Procedure [facility]iology PACS Provider, Foreign [address] [place] [id number] [address] [place] [address] Social History Tobacco Use Types Packs/Day Years Used Date Smoking Tobacco: Never Smokeless Tobacco: Never Alcohol Use Standard Drinks/Week Comments Yes 0 (1 standard drink = 0.6 oz pure alcoho l) Sex Assigned at Date Recorded Not on file documented as of this encounter Plan of Treatment Not on filedocumented as of this encounter Procedures Procedure Name Priority Date/Time Associated Diagnosis Comme nts FOREIGN IMAGE(S) XR Routine 07/04/2019 10:20 AM R esults for this SHOULDER LT FORMULA ROOM WORKER procedure are i n the results section. documented in this encounter Results Foreign Image(S) XR Shoulder Lt (07/04/2019 10:20 AM FORMULA ROOM WORKER) Specimen (Source) Anatomical Location Collection Method / Collectio n Time Received Time / Laterality Volume Narrative POCT - 07/12/2019 10:17 AM FORMULA ROOM WORKER These outside images have been uploaded into PACS. If the results were provided, they will be located in the nory henriquez's chart under the Media or Imaging tab. Foreign Images Provider RAD NON-REPORTABLES Performing Organization Address City/State/ZIP Code Phon e Number POCT documented in this encounter Visit Diagnoses Not on filedocumented in this encounter Care Teams Sugar Mixer Relationship Specialty Start Date End Date Lina Meléndez MD PCP - General Internal Medicine 12/[address] [place] [address] documented as of this encounter
--- OUTSIDE RECORDS SUMMARY | 2022-04-05 15:45 | XMS_ITS | Encounter Summary ---
:1945 Author Organization [facility] Address [address] [address] Care Team Providers Name Role Phone Lina Meléndez MD Primary Care Provider Encounter Details Date Type Department Care Team Description 12/25/2018 Notes/Orders Kacy Rheumatol sharmin [place], [address] [facility] [place] [address] [address] [facility] [phone] [facility] [address] [id number] (Wo rk) Social History Tobacco Use Types [...] on filedocumented in this encounter Care Teams Bacteriologist Pharmaceutical Relationship Specialty Start Date End Date Lina Meléndez MD PCP - General Internal Medicine 12/20/[address] [place] [address] documented as of this encounter
--- OUTSIDE RECORDS SUMMARY | 2022-04-05 15:45 | XMS_ITS | Encounter Summary ---
:1945 [facility] Address [address] [place] [address] Care Team Providers Name Role Phone Coleman Dye MD Primary Care Provider Unavailable Reason for Visit Reason Comments Osteoarthritis Encounter Details Date Type Department Care Team Description 06/22/2011 Office Visit [facility] 393 Rodrigo Rangel MD Primary localized [facility] [address] osteoarthrosis, lower [address] leg (Primary Dx) [place] [address] [phone] Social History Tobacco Use Types Packs/Day Years Used Date Smoking Tobacco: Never Assessed Sex Assigned at Date Recorded Not on file documented as of this encounter Progress Notes Navneet Rangel MD - 06/22/2011 2:48 PM CST Progress Notes signed by Navneet Rangel MD at 06/22/11 846 Author: Navneet Rangel MD Service: (none) Author Type: Physician Filed: 06/22/111654 Note Time: 06/22/118 Status: Signed Superintendent [employer]: Navneet Rangel MD (Physician) NAME: MARYAM CORTEZ MR#: [id number] CSN: [id number] AUTHENTICATING CLINICIAN: Navneet Rangel MD CONFIRM #: [id number] LOC: 211 CLINIC PROGRESS NOTE DATE OF VISIT: 06/22/2011 : 1945 Maryam is in for followup of her knees. In particular, her left knee has been bothering her. She underwent a left total knee arthroplasty in 2006 after having previously had a right total knee arthroplasty in 2003. 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 She said she has had several bumps to her knee and she is now complaining of pain over the anterior and anteromedial side of her knee. Coinciding with this is some discoloration that she has noticed in the exact area of her discomfort. EXAM: There is in fact what appears to be some deep discoloration over the medial side of the patella and extending medially to the patella. It does not arise to the surface. There is a similar area just distal to the lateral femoral condyle. She has excellent range of motion of both her knees. There is good stability. There is excellent strength. X-rays of both knees done today show no evidence of loosening. The bone fragment at the inferior pole of the right patella is unchanged from previous views. ASSESSMENT: 1. Left knee pain 4-1/2 years post total knee arthroplasty. 2. Right total knee arthroplasty. PLAN: I told her that this may be a residual from the multiple bruises that she sustained, although it has somewhat of an unusual appearance. I told her to back off on some of the intensity of her therapeutic exercises. I gave her a prescription for amoxicillin for dental prophylaxis and I would like her to follow up with me in 2 years. PRD:MEDQ C: CONFIRM #: [id number] TING SUPERVISOR documented in this encounter Plan of Treatment Not on filedocumented as of this encounter Procedures Procedure Name Priority Date/Time Associated Diagnosis Comme nts XR KNEE RT 3 VIEWS STAT 06/22/2011 1:37 PM Primary localize d Results for this DRAFTING SUPERVISOR osteoarthrosis, procedure ar e in lower leg the results section. XR KNEE LT 3 VIEWS STAT 06/22/2011 1:37 PM Primary localize d Results for this DRAFTING SUPERVISOR osteoarthrosis, procedure ar e in lower leg the results section. documented in this encounter Results XR Knee Rt 3 Views (06/22/2011 1:37 PM DRAFTING SUPERVISOR) Anatomical Region Laterality Modality Lower Extremity, Knee Other Specimen (Source) Anatomical Location Collection Method / Collectio n Time Received Time / Laterality Volume Narrative 06/22/2011 1:45 PM DRAFTING SUPERVISOR Comparison to left knee films 05/03/2007 and right knee films 04/20/2007. ??Bilateral total knee prost heses are again noted. ??No significant change of alignment of the p rosthesis components is seen bilaterally and no definite evidence for interval loosening is noted. ?? Soft tissue drainage catheter has been r emoved from the left knee since previous exam. ??No other signific ant change is identified. Procedure Note Campos Jacques MD - 12/10/2015Form atting of this note might be different from the original. Comparison to left knee films 05/03/2007 and right knee films 04/20/2007. Bilateral total knee prosthe ses are again noted. No significant change of alignment of the p rosthesis components is seen bilaterally and no definite evidence for interval loosening is noted. Soft tissue drainage catheter has been r emoved from the left knee since previous exam. No other significan t change is identified. Navneet Rangel MD RAD GD XR Knee Lt 3 Views (06/22/2011 1:37 PM DRAFTING SUPERVISOR) Anatomical Region Laterality Modality Lower Extremity, Knee Other Specimen (Source) Anatomical Location Collection Method / Collectio n Time Received Time / Laterality Volume Narrative 06/22/2011 1:45 PM DRAFTING SUPERVISOR Comparison to left knee films 05/03/2007 and right knee films 04/20/2007. ??Bilateral total knee prost heses are again noted. ??No significant change of alignment of the p rosthesis components is seen bilaterally and no definite evidence for interval loosening is noted. ?? Soft tissue drainage catheter has been r emoved from the left knee since previous exam. ??No other signific ant change is identified. Procedure Note Campos Jacques MD - 12/10/2015Form atting of this note might be different from the original. Comparison to left knee films 05/03/2007 and right knee films 04/20/2007. Bilateral total knee prosthe ses are again noted. No significant change of alignment of the p rosthesis components is seen bilaterally and no definite evidence for interval loosening is noted. Soft tissue drainage catheter has been r emoved from the left knee since previous exam. No other significan t change is identified. Navneet Rangel MD RAD GD documented in this encounter Visit Diagnoses Diagnosis Primary localized osteoarthrosis, lower leg - Primary documented in this encounter Care Teams Copper Plater Relationship Specialty Start Date End Date Coleman Dye MD PCP - General 09/27/1012/19 documented as of this encounter
--- OUTSIDE RECORDS SUMMARY | 2022-04-05 15:45 | XMS_ITS | Encounter Summary ---
:1945 Author Organization [facility] Address [address], [place] [address] Care Team Providers Name Role Phone Lina Meléndez MD Primary Care Provider Reason for Visit Auth/Cert Specialty Diagnoses / Procedures Referred By Contact Refer red To Contact Diagnoses Closed fracture of proximal end of left humerus, unspecified fracture morphology, initial encounter Procedures OPEN REDUCTION INTERNAL FIXATION PROXIMAL HUMERUS FRACTURE Referral ID Status Reason Start Date Expiration Date Visits Requ ested Visits Authorized [id number] 1 1 Encounter Details Date Type Department Care Team Description 07/16/2019 Anesthesia Event [facility] Sincere Jordan MD [address] [place], [place] [id number] Ritika Lopez APRN, CRNA [address] [place] [address] [address] [facility] [place] [address] Anesthesia Record Procedure Summary Procedure Name Responsible Anesthesia Start Anesthesia Stop Time Anesthesiologist Time OPEN REDUCTION Coleman Jordan MD 07/16/19 1123 07/16/19 1409 INTERNAL FIXATION PROXIMAL HUMERUS FRACTURE (Left: Arm Upper) Events Date Time Event Comment 07/16/2019 1040 1123 An Start 1127 An Start Data 1132 An Induction 1132 MD/DO Present 1136 An Intubation 1239 An Labs Blood glucose=18 3 1335 MD/DO Present 1355 An Extubation Purposeful movem ent with spontaneous respirations and adequate air exchange. Suctioned and ETT removed. Transfe rred with oxygen to recovery. 1357 MD/DO Present 1401 an stop data 1409 An Stop Care transferred . 1409 Care Handoff Note I discussed wi th the receiving nurse and we: 1) Identified the p atient, arshad family member(s) or patient surrogat e 2) Identified the responsible practitioner 3) Reviewed the pertinent medical history 4) Discu ssed the surgical/procedure course 5) Reviewed intr a-op anesthesia management and issues during an esthesia 6) Set expectations for the post-procedu re period 7) Allowed opportunity for questions an d acknowledgement of understanding of report Electr onically signed by Kaiden Peterson APRN, DECAL APPLIER Name Total fentaNYL injection (SUBLIMAZE) 50 mcg lidocaine 1% PF injection (XYLOCAINE) 70 mg propofol 10 mg/mL IV (DIPRIVAN) 130 mg succinylcholine injection (QUELICIN) 120 mg rocuronium injection (ZEMURON) 30 mg neostigmine 5 mg/5mL injection (PROSTIGMIN) 4 mg glycopyrrolate 0.2 mg/mL injection (ROBINUL) 0.6 mg ondansetron injection (ZOFRAN) 4 mg dexamethasone 4 mg/mL injection (DECADRON) 4 mg phenylephrine 100 mcg/mL in NaCl 0.9% syringe 50 mcg ePHEDrine 25 mg prediluted syringe 15 mg ceFAZolin (aka ANCEF) 2 g in dextrose 100 ml IVPB 2 g furosemide injection (aka LASIX) 20 mg ropivacaine 5 mg/ml injection (NAROPIN) 25 mL esmolol 10 mg/mL injection (aka BREVIBLOC) 50 mg lactated ringers infusion 900 mL Agents Name O2 Air Sevoflurane () Identified Agent Name Blood No blood administrations on file. Lines, Drains, and Airways Type Details Placement Removal Incision/Surgical Site 07/16/19; #1; No; 07/16/19 0000 by 1542 by Enoc, Shoulder, Arm; Michelle Davenport Discontinue Anterior, Left; L, RN 07/31/19; 1542 Peripheral IV Placement Date: 07/16/19 1050 by 07/17/19 1441 b yessi Khan 07/16/19; Placement Toya Rodriguez RN Hoven, R ebecca R, RN Time: 1050; Pre-existing: No; Inserted by?: RN; Size (Gauge): 18 G; Orientation: Right; Site Prep: ChloraPrep; Local Anesthetic: Lidocaine 1%; Insertion attempts: 1; Blood draw with insertion?: no; Patient Tolerance: Tolerated well; Met Standard Sterile Barrier Technique: Met Standard Sterile Barrier Technique; Removal Date: 07/17/19; Removal Time: 1441 Indwelling Urethral 07/16/19; 1135; No; 07/16/19 1135 by 0 1556 by Ashley Renae; Michelle Davenport RN Indwelling Catheter; Tony, RN 16 Fr.; 1 ETT Placement Date: 07/16/19 1136 by 07/16/19 1355 b y 07/16/19; Placement Vilma, Linda Santos APRN, Krebsba ch, Anthony M, Time: 1136; Placed DECAL APPLIER RYANN, DECAL APPLIER By: DECAL APPLIER; Induction Type: Pre-O2, IV; Masking: Easy; ETT Type: ETT; Size (mm): 7.0; Depth Secured (cm): 21 cm; Cuffed: Cuffed; Intubation Method: DL; Cormack_Lehane Glottic Grade: Grade 1; Glottic View: Cords Open, Cords Clear; Blade: MAC; Blade Size: 3; Insertion attempts: 1; Difficulty: Atraumatic; Adjunct Equipment: Stylet; Placement Verification: BBSE, Positive EtCO2; Teeth and Lips Unchanged: Unchanged; Removal Date: 07/16/19; Removal Time: 1355 documented in this encounter Social History Tobacco Use Types Packs/Day Years Used Date Smoking Tobacco: Never Smokeless Tobacco: Never Alcohol Use Standard Drinks/Week Comments Yes 0 (1 standard drink = 0.6 oz pure alcoho l) Sex Assigned at Date Recorded Not on file documented as of this encounter Miscellaneous Notes Anesthesia Postprocedure Evaluation - Coleman Jordan MD - 07/16/2019 4:[address] [facility] Anesthesia Post-op Note Patient: Maryam Cortez Post-Op Diagnosis: Closed fracture of proximal end of left humerus, unspecified fracture morphology,initial encounter Procedure Performed: Procedure(s): OPEN REDUCTION INTERNAL FIXATION PROXIMAL HUMERUS FRACTURE Anesthesia Type: General Post-op vital signs: Vitals Value Taken Time BP 159/74 07/16/2019 4:31 PM Temp 36.9 ??C (98.4 ??F) 07/16/2019 4:31 PM Pulse 86 07/16/2019 4:31 PM Resp 14 07/16/2019 4:31 PM SpO2 100 % 07/16/2019 4:31 PM Pain Score: Presence Of Pain: denies Preferred Pain Scale: word (verbal rating pain scale) Pain Rating (0-10): Rest: 9 Pain Rating (0-10): Activity: 10 Post-op assessment: No anesthesia complication. Patient location: PACU Airway Status: Patent Cardiovascular function: Satisfactory Hydration status: Satisfactory PONV: None Level of Consciousness: Awake Full recovery from long-acting regional anesthetic has not yet occurred but is expected within 48 hours Postop Assessment: Patient tolerated procedure well. Other comments: Hypertensive post-op, gave home dose clonidine, IV labetalol, and midazolam. Hypertension improved with treatment. Electronically signed by: Coleman Jordan MD 07/16/2019 4:43 PM UAGE INTERPRETER Anesthesia Procedure Notes - Coleman Jordan MD - 07/16/2019 1:08 PM LANGUAGE INTERPRETER Associated Order(s): Peripheral Nerve Block Peripheral Block Performed by: Coleman Jordan MD Authorized by: Coleman Jordan MD Patient Location: Preop Start Time: 07/16/2019 10:56 AM End Time: 07/16/2019 11:04 AM Performed by: Anesthesiologist Body area of block: Upper Extremity Upper Extremity Blocks: Interscalene block Laterality: Left Correct Position: Yes Correct Patient: Yes Correct Site: Yes Correct Procedure: Yes Correct Laterality: Yes Site Marked: Yes Checklist: post-operative analgesia only, risks and benefits discussed, patient agrees to proceed, IV checked, anesthesia consent, monitors/equipment checked, surgical consent and at surgeon's request Prep: Chloraprep, Hat, Sterile gloves and Mask Monitoring: Blood pressure, bus monitor and continuous pulse oximetry Patient Position: Supine Procedures: ultrasound guided Local Infiltration: lidocaine 1% Volume of local infiltration (mL): 2 Needle Type: Insulated Needle Length: 2 in Needle Gauge: 21 G Pain on Injection: No Blood aspirated?: No Bolus given as slow fractionated injection?: Yes Paresthesias?: No Bleeding at site?: No Ultrasound guided?: Yes Ultrasound image saved/archived?: Yes Ultrasound Interpretation: anatomic plane and expected location of nerve appear normal, local anesthetic visualized surrounding nerve, appropriate spread of the medication was noted in real time, no ultrasound evidence of intravascular and/or intraneural injection, needle tip was noted to be adjacent to the nerve/plexus identified and needle and nerve visualized Local Anesthetics: Ropivacaine Epinephrine: None Ropivacaine: Ropivacaine 0.5% Ropivacaine Volume (mL): 25 Total Volume of LA (mL): 25 Catheter placed?: No Complication: None Procedure Comments: Added 4mg (1ml) dexamethasone to solution for total injected volume of 26ml. UAGE INTERPRETER Anesthesia Preprocedure Evaluation - Coleman Jordan MD - 07/16/2019 10:[address] [facility] Anesthesia Pre-op Evaluation Procedure: Procedure(s): OPEN REDUCTION INTERNAL FIXATION PROXIMAL HUMERUS FRACTURE HPI: 73 y.o. old female with Closed fracture of proximal end of left humerus, unspecified fracture morphology, initial encounter NPO Status: Last Fluid Intake Time: 0700 Last Fluid Intake Date: 07/16/19 Last Food Intake Date: 07/16/19 Last Food Intake Time: 0200 Allergies Allergen Reactions ??? Codeine PN: LW Reaction: Nausea ??? Other PN: LW Other1: -NKA LW Other2: -NKA ??? Review Food Intolerance PN: LW FI1: NKA ??? Sulfa Antibiotics PN: LW Reaction: gi No past medical history on file. Patient Active Problem List Diagnosis ??? Osteoarthrosis, [...] ??? Closed fracture of left proximal humerus Past Surgical History: Procedure Laterality Date ??? CARPAL TUNNEL RELEASE LW Problem: Carpal Tunnel Release s/p ??? CERVICAL FUSION LW Problem: Cervical Spine Fusion S/p ??? HYSTERECTOMY LW Problem: Hysterectomy S/p ??? TOTAL KNEE ARTHROPLASTY LW Problem: Knee arthroplasty Total S/p LW Modifier: right Outpatient Medications Marked as Taking for the 07/16/19 encounter (Hospital Encounter) Medication Sig Dispense Refill ??? atorvastatin (LIPITOR) 10 MG tablet Take 10 mg by mouth. ??? cloNIDine (CATAPRES) 0.3 MG tablet Take 0.3 mg by mouth. ??? insulin glargine (AKA LANTUS) 100 UNIT/ML injection Inject 18 Units subcutaneously nightly. LW Comment:info per pt, Dr.Tom Dye PRN ??? insulin lispro (AKA HUMALOG) 100 UNIT/ML injection vial Inject subcutaneously 4 times daily (sliding scale). Indications: DIABETES MELLITUS ??? magnesium oxide (MAG-OX) 400 MG tablet Take 800 mg by mouth. ??? ondansetron (ZOFRAN) 4 MG tablet Take 2 Tablets by mouth every 8 hours as needed. 30 Tablet 0 ??? oxyCODONE-acetaminophen (PERCOCET) 5-325 MG tablet Take 1-2 Tablets by mouth every 4 hours as needed. 30 Tablet 0 Current Facility-Administered Medications Medication Dose Route Frequency ??? ceFAZolin (aka ANCEF) 2 g in dextrose 100 ml IVPB 2 g Intravenous Once ??? dextrose 5 % infusion Intravenous ONCE PRN ??? diphenhydrAMINE (BENADRYL) injection 25 mg 25 mg Intravenous ONCE PRN ??? fentaNYL (SUBLIMAZE) injection 25-50 mcg 25-50 mcg Intravenous Q5MIN PRN ??? HYDROmorphone injectable 0.2-0.3 mg 0.2-0.3 mg Intravenous Q10MIN PRN ??? lactated ringers infusion 25 mL/hr Intravenous Continuous ??? lidocaine PF (XYLOCAINE) 1 % injection 0.1-0.3 mL 0.1-0.3 mL Subcutaneous Once And ??? lidocaine PF (XYLOCAINE) 1 % injection 0.1-0.3 mL 0.1-0.3 mL Subcutaneous PRN ??? meperidine (DEMEROL) injection 12.5 mg 12.5 mg Intravenous Q5MIN PRN ??? midazolam (VERSED) injection 1-2 mg 1-2 mg Intravenous Q5MIN PRN ??? naloxone (NARCAN) injection 0.08 mg 0.08 mg Intravenous PRN ??? naloxone (NARCAN) injection 0.4 mg 0.4 mg Intravenous ONCE PRN ??? prochlorperazine (COMPAZINE) injection 5 mg 5 mg Intravenous Q15MIN PRN Labs: Lab Results Component Value Date/Time SODIUM 135 (L) 05/05/2007 06:50 AM K 4.2 05/05/2007 06:50 AM CHLORIDE 104 05/05/2007 06:50 AM BUN 14 05/05/2007 06:50 AM CREATININE 0.7 05/05/2007 06:50 AM Lab Results Component Value Date/Time HGB 8.5 (L) 05/05/2007 06:50 AM No results found for: INR Blood Bank: No results found for: ABO, ABSCR EKG: No results found for this or any previous visit. Physical Exam: BP (!) 188/88 Pulse 91 Temp 37.3 ??C (99.1 ??F) (Temporal Artery) Resp 16 Ht 5' 5 Wt 75 kg (165 lb 6.4 oz) SpO2 100% BMI 27.52 kg/m?? Assessment/Plan: Review of Systems Patient has GERD. GERD controlled with medication. Patient is not a current smoker. The patient reports alcohol use. Patient denies any recent URI. History of PONV: No. History of motion sickness: No. Patient denies any personal or family history of anesthesia complications (PONV). Exam Mental Status: Alert and oriented. Mallampati score: II (Two). Mouth opening: Normal Thyromental Distance: > 3 finger breadths and Normal Neck Extension: Full Neck Circumference > 40 cm?: No Airway assessment: Unknown. Current airway assessment:Normal Dentition: Normal. Cardiac Exam: Regular rate and rhythm. Respiratory Exam: Breath sounds clear to auscultation Assessment ASA Status: 3 . Plan Anesthesia type: General, Peripheral Nerve Block for Post- op Pain at Surgeon request and ETT Induction: Intravenous and Propofol Maintenance: Postoperative pain management (PONV): Plan for postoperative opioid use and Peripheral Nerve Block for Postop Analgesia at Surgeon's request PONV Risk Score Peds:0 PONV Risk Score Adult: 3 PONV Prophylaxis (planned): Ondansetron and Decadron Anesthetic plan, risks, benefits and alternatives discussed with: Patient or Assistant Cross Country Coach agree tothe anesthesia treatment plan and Patient. Possibility of blood products discussed. DM2, asthma, CVA (no deficits, has been off clopidogrel since 07/10), HTN, GERD, TC (+CPAP) Pt mentions she has noticed edema and new onset shortness of breath over the past 2 months. Denies orthopnea. Most recent stress echo 3 years ago was negative. Concerned about underlying cardiac etiology with possible fluid overload. Would recommend echocardiogram during this admission. Will get pre-op EKG. H&P Reviewed and Patient examined, no change observed IV access Antibiotics per surgery Electronically signed by: Coleman Jordan MD 07/16/2019 10:31 AM UAGE INTERPRETER documented in this encounter Plan of Treatment Not on filedocumented as of this encounter Procedures Procedure Name Priority Date/Time Associated Diagnosis Comme nts PERIPHERAL BLOCK Routine 07/16/2019 1:08 PM Resul ts for this LANGUAGE INTERPRETER procedure are i n the results section. documented in this encounter Results PERIPHERAL BLOCK (07/16/2019 1:08 PM LANGUAGE INTERPRETER) Narrative EXTERNAL RESULTS - 07/16/2019 1:08 PM Coleman Le MD ? 07/16/2019 ??1:09 PM Peripheral Block Performed by: Coleman Jordan MD Authorized by: Coleman Jordan MD Patient Location: ??Preop Start Time: ??07/16/2019 10:56 AM End Time: ??07/16/2019 11:04 AM Performed by: ??Anesthesiologist Body area of block: ??Upper Extremity Upper Extremity Blocks: Interscalene blo ck ?? Laterality: ??Left Correct Position: ??Yes Correct Patient: ??Yes Correct Site: ??Yes Correct Procedure: ??Yes Correct Laterality: ??Yes Site Marked: ??Yes Checklist: post-operative analgesia only , risks and benefits discussed, patient agrees to proceed, IV checked, a nesthesia consent, monitors/equipment checked, surgical con sent and at surgeon's request ?? Prep: ??Chloraprep, Hat, Sterile gloves and Mask Monitoring: ??Blood pressure, cardiac mo nitor and continuous pulse oximetry Patient Position: ??Supine Procedures: ultrasound guided ?? Local Infiltration: lidocaine 1% ?? Volume of local infiltration (mL): ??2 Needle Type: ??Insulated Needle Length: ??2 in Needle Gauge: ??21 G Pain on Injection: No ?? Blood aspirated?: No ?? Bolus given as slow fractionated injecti on?: Yes ?? Paresthesias?: ??No Bleeding at site?: ??No Ultrasound guided?: Yes ?? Ultrasound image saved/archived?: Yes ?? Ultrasound Interpretation: anatomic plan e and expected location of nerve appear normal, local anesthetic visualiz ed surrounding nerve, appropriate spread of the medication was noted in re al time, no ultrasound evidence of intravascular and/or intraneural injecti on, needle tip was noted to be adjacent to the nerve/plexus identified and needle and nerve visualized ?? Local Anesthetics: ??Ropivacaine Epinephrine: ??None Ropivacaine: ??Ropivacaine 0.5% Ropivacaine Volume (mL): ??25 Total Volume of LA (mL): ??25 Catheter placed?: No ?? Complication: ??None Procedure Comments: ??Added 4mg (1ml) de xamethasone to solution for total injected volume of 26ml. Coleman Jordan MD ANESTHESIA/AR Performing Organization Address City/State/ZIP Code Phon e Number EXTERNAL RESULTS documented in this encounter Visit Diagnoses Not on filedocumented in this encounter Administered Medications Inactive Administered Medications - up to 3 most recent administrations Medication Order MAR Action Action Date Dose Rate Site ceFAZolin (aka ANCEF) 2 g in Given 07/16/2019 11:40 AM LANGUAGE INTERPRETER 2 g dextrose 100 ml IVPB 2 g, Intravenous, Administer over 30 Minutes, ONCE, On Mon07/16/19 at 1000, For 1 dose, Infuse within 60 minutes prior to incision; Re-dose 1 gram IV every 4 hours after initial dose until incision closed., Pre-op dexamethasone (DECADRON) injection Given 07/16/2019 11:04 AM LANGUAGE INTERPRETER 4 mg Intravenous, Starting on Mon07/16/19 at 1104, Until Mon07/16/19 at 1409 ePHEDrine 5mg/ml in 0.9% sodium chloride Given 07/16/2019 12:30 PM LANGUAGE INTERPRETER 10 mg syringe Starting on Mon07/16/19 at 1204, Until Mon07/16/19 at 1409 Given 07/16/2019 12:04 PM LANGUAGE INTERPRETER 5 mg esmolol (BREVIBLOC) injection Given 07/16/2019 2:07 PM LANGUAGE INTERPRETER 10 mg Starting on Mon07/16/19 at 1358, Until Mon07/16/19 at 1409 Given 07/16/2019 2:00 PM LANGUAGE INTERPRETER 20 mg Given 07/16/2019 1:58 PM LANGUAGE INTERPRETER 20 mg fentaNYL (SUBLIMAZE) injection Given 07/16/2019 11:45 AM LANGUAGE INTERPRETER 50 mcg Intravenous, Starting on Mon07/16/19 at 1145, Until Mon07/16/19 at 1409 furosemide (LASIX) injection Given 07/16/2019 12:00 PM LANGUAGE INTERPRETER 20 mg Starting on Mon07/16/19 at 1200, Until Mon07/16/19 at 1409 glycopyrrolate (ROBINUL) injection Given 07/16/2019 1:47 PM LANGUAGE INTERPRETER 0.6 mg Intravenous, Starting on Mon07/16/19 at 1347, Until Mon07/16/19 at 1409 lidocaine PF (XYLOCAINE) 1 % injection Given 07/16/2019 11:34 AM LANGUAGE INTERPRETER 70 mg Intravenous, Starting on Mon07/16/19 at 1134 neostigmine (PROSTIGMINE) injection Given 07/16/2019 1:47 PM LANGUAGE INTERPRETER 4 mg Intravenous, Starting on Mon07/16/19 at 1347, Until Mon07/16/19 at 1409 ondansetron (ZOFRAN) injection Given 07/16/2019 1:19 PM LANGUAGE INTERPRETER 4 mg Intravenous, Starting on Mon07/16/19 at 1319, Until Mon07/16/19 at 1409 phenylephrine-NaCl 0.9% (ANYA-SYNEPHRINE) Given 07/16/2019 12:37 PM LANGUAGE INTERPRETER 50 mcg injection Intravenous, Starting on Mon07/16/19 at 1237, Until Mon07/16/19 at 1409 propofol (DIPRIVAN) 10 mg/mL injection Given 07/16/2019 11:34 AM LANGUAGE INTERPRETER 130 mg Intravenous, Starting on Mon07/16/19 at 1134, Until Mon07/16/19 at 1409 rocuronium (ZEMURON) injection Given 07/16/2019 12:13 PM LANGUAGE INTERPRETER 30 mg Intravenous, Starting on Mon07/16/19 at 1213, Until Mon07/16/19 at 1409 ropivacaine 0.5% (NAROPIN) 5 MG/ML injec tion Given 07/16/2019 11:04 AM LANGUAGE INTERPRETER 25 mL Starting on Mon07/16/19 at 1104, Until Mon07/16/19 at 1409 succinylcholine (QUELICIN) injection Given 07/16/2019 11:34 AM LANGUAGE INTERPRETER 120 mg Intravenous, Starting on Mon07/16/19 at 1134, Until Mon07/16/19 at 1409 documented in this encounter Care Teams Life Skills Worker Relationship Specialty Start Date End Date Lina Meléndez MD PCP - General Internal Medicine 12/20/181999 [place] [address] documented as of this encounter
--- OUTSIDE RECORDS SUMMARY | 2022-04-05 15:45 | XMS_ITS | Encounter Summary ---
:1945 Author Organization [facility] Address [address] [address] Care Team Providers Name Role Phone Coleman Dye MD Primary Care Provider Unavailable Encounter Details Date Type Department Care Team Description 07/27/2007 Office Visit [facility] Navneet Campos MD [address] [facility] [address] [place], [place] [address] [place] [address] (Wo rk) Social History Tobacco Use Types Packs/Day Years Used Date Smoking Tobacco: Never Assessed Sex Assigned at Date Recorded Not on file documented as of this encounter Progress Notes Navneet Campos MD - 07/27/2007 12:01 AM CST Progress Notes signed by Navneet Campos MD at 07/29/07 1348 Author: Navneet Campos MD Service: (none) Author Type: Physician Filed: 10/16/10 0040 Note Time: 07/27/07 0001 Status: Signed Director Of State: Navneet Campos MD (Physician) NAME: MARYAM CORTEZ MR#: [id number] ACCT: [id number] VISIT: [id number] DICTATING CLINICIAN: NAVNEET CAMPOS MD JOB: [id number] LOC: 311 CLINIC PROGRESS NOTE DATE OF VISIT: 07/27/2007 SUBJECTIVE: Maryam is just under 3 months out now from a left total-knee arthroplasty. She had her right knee done previous to that. She is very happy with her progress. When I last saw her in May, she had developed some redness after having a tooth extraction, but that has resolved completely. She said she is pain-free. OBJECTIVE: She walks without evidence of a limp. Knee alignment is neutral bilaterally. She flexes to 120 degrees and has full extension. Quadriceps tone is satisfactory. ASSESSMENT: Degenerative joint disease, left knee. PLAN: I will see her back in 1 year and I would like x-rays of both knees at that time. PRD:[id number] C: 07/28/07 11:31 DOCUMENT: [id number] COUNSELOR documented in this encounter Plan of Treatment Not on filedocumented as of this encounter Visit Diagnoses Not on filedocumented in this encounter Care Teams Store Keeper Relationship Specialty Start Date End Date Coleman Dye MD PCP - General 09/27/1012/19 documented as of this encounter
--- OUTSIDE RECORDS SUMMARY | 2022-04-05 15:45 | XMS_ITS | Encounter Summary ---
:1945 Author Organization [facility] Address [address] [address] Care Team Providers Name Role Phone Lina Meléndez MD Primary Care Provider Reason for Referral Procedure/Equipment (Routine) - Incomplete Specialty Diagnoses / Procedures Referred By Contact Refer red To Contact Diagnoses No diagnosis or condition on Stuart II (HRC) Edelmira Rodriguez MD Procedures FL C Arm [address] [place], [place] [address] Referral ID Status Reason Start Date Expiration Date Visits V isits Requested Authorized [id number] Incomplete 07/16/2019 10/14/2020 1 1 ETING PROJECT COORDINATOR Reason for Visit Auth/Cert Specialty Diagnoses / Procedures Referred By Contact Refer red To Contact Diagnoses Closed fracture of proximal end of left humerus, unspecified fracture morphology, initial encounter Procedures OPEN REDUCTION INTERNAL FIXATION PROXIMAL HUMERUS FRACTURE Referral ID Status Reason Start Date Expiration Date Visits Requ ested Visits Authorized [id number] 1 1 Encounter Details Date Type Department Care Team Description 07/16/2019 Hospital Encounter [facility] Edelmira Rodriguez, No diagnosis or [address] condition on [address] [facility] [address] [place], [place] [phone] Social History Tobacco Use Types Packs/Day Years Used Date Smoking Tobacco: Never Smokeless Tobacco: Never Alcohol Use Standard Drinks/Week Comments Yes 0 (1 standard drink = 0.6 oz pure alcoho l) Sex Assigned at Date Recorded Not on file documented as of this encounter Medications at Time of Discharge [...] coated tablet mouth daily for 42 days. oxyCODONE (ROXICODONE) Take 1-2 Tablets by 30 Tablet 0 06/2707/17/2019 5 MG immediate release mouth every 4 hours as tablet needed for Pain. Take 1 tablet for pain rated at 4-7. Take 2 tablets for pain rated 8-10. documented as of this encounter Plan of Treatment Not on filedocumented as of this encounter Procedures Procedure Name Priority Date/Time Associated Diagnosis Comme nts FL C ARM Routine 07/16/2019 1:29 PM No diagnosis or Result s for this MARKETING PROJECT COORDINATOR condition on Stuart II procedu re are in the results section . documented in this encounter Results FL C Arm (07/16/2019 1:29 PM MARKETING PROJECT COORDINATOR) Anatomical Region Laterality Modality Radiographic Imaging Specimen (Source) Anatomical Location Collection Method / Collectio n Time Received Time / Laterality Volume Narrative 07/16/2019 2:22 PM MARKETING PROJECT COORDINATOR Images obtained during surgical procedure. Edelmira Rodriguez MD RAD FL documented in this encounter Visit Diagnoses Diagnosis No diagnosis or condition on Stuart II (HR C) Observation of other suspected mental co ndition documented in this encounter Care Teams Life Cycle Assessment Analyst Relationship Specialty Start Date End Date Lina Meléndez MD PCP - General Internal Medicine 12/20/[address] [place] [address] documented as of this encounter
--- OUTSIDE RECORDS SUMMARY | 2022-04-05 15:45 | XMS_ITS | Encounter Summary ---
:1945 Author Organization [facility] Address [address], [place] [address] Care Team Providers Name Role Phone Lina Meléndez MD Primary Care Provider Reason for Visit Procedure/Equipment (Routine) - Incomplete Specialty Diagnoses / Procedures Referred By Contact Refer red To Contact Diagnoses Acute pain of left shoulder Syeda Colón, TOMA Procedures XR Shoulder Lt 2 Views [address] [place] [address] Referral ID Status Reason Start Date Expiration Date Visits V isits Requested Authorized [id number] Incomplete 07/10/2019 10/08/2020 1 1 Encounter Details Date Type Department Care Team Description 07/10/2019 Ancillary Procedure [facility] Syeda Colón, [address] [place] [address] [address] [phone] [place], [place] [address] (Wo rk) Social History Tobacco Use Types [...] Associated Diagnosis Comme nts XR SHOULDER LT 2 Routine 07/10/2019 12:20 PM Acute pain of lef t Results for this VIEWS DEBURRING MACHINE OPERATOR shoulder procedure are i n the results section. documented in this encounter Results XR Shoulder Lt 2 Views (07/10/2019 12:20 PM DEBURRING MACHINE OPERATOR) Anatomical Region Laterality Modality Upper Extremity, Shoulder Digital Radiog alexandra Specimen (Source) Anatomical Collection Method Collection Time Re ceived Time Location / / Volume Laterality 07/10/2019 12:00 PM DEBURRING MACHINE OPERATOR Impressions 07/10/2019 12:49 PM DEBURRING MACHINE OPERATOR FINDINGS: ??There are degenerative masters es of the AC joint. There is a comminuted age-indeterminate fracture of the humeral neck. Humerus is subluxed superiorly and displaced anteriorly relative to the fracture fragments of the humeral head Procedure Note Jameel Ceballos MD - 07/10/2019For matting of this note might be different from the original. IMPRESSION FINDINGS: There are degenerative changes of the AC joint. There is a comminuted age-indeterminate fracture of the humeral neck. Humerus is subluxed superiorly and displaced anteriorly relative to the fracture fragments of the humeral head Syeda Colón PA-C RAD GD documented in this encounter Visit Diagnoses Not on filedocumented in this encounter Care Teams Newcomer Hostess Relationship Specialty Start Date End Date Lina Meléndez MD PCP - General Internal Medicine 12/20/[address] [place] [address] documented as of this encounter
--- OUTSIDE RECORDS SUMMARY | 2022-04-05 15:45 | XMS_ITS | Encounter Summary ---
:1945 Author Organization [facility] Address [address] [place] [address] Care Team Providers Name Role Phone Lina Meléndez MD Primary Care Provider Encounter Details Date Type Department Care Team Description 07/16/2019 Notes/Orders Special[facility] 3931 Leeann Rodriguez MD [facility] 3931 [facility] [address]31 [place] [address] [place] [address] [phone] Social History Tobacco Use Types Packs/Day Years [...] on filedocumented in this encounter Care Teams Administrative Aide Relationship Specialty Start Date End Date Lina Meléndez MD PCP - General Internal Medicine 12/20/[address] [place] [address] documented as of this encounter
--- OUTSIDE RECORDS SUMMARY | 2022-04-05 15:45 | XMS_ITS | Encounter Summary ---
:1945 Author Organization [facility] Address [address] [place] [address] Care Team Providers Name Role Phone Lina Meléndez MD Primary Care Provider Reason for Visit Procedure/Equipment (Routine) - Incomplete Specialty Diagnoses / Procedures Referred By Contact Refer red To Contact Diagnoses Acute pain of left shoulder Syeda Colón, [place] [address] [place] [address] Referral ID Status Reason Start Date Expiration Date Visits V isits Requested Authorized [id number] Incomplete 07/10/2019 10/08/2020 1 1 Encounter Details Date Type Department Care Team Description 07/10/[address] [place] [address] Scan Syeda Colón, Acute pain of left Procedure [address] [place] [address] [phone] Social History Tobacco Use Types Packs/Day Years Used Date Smoking Tobacco: Never Smokeless Tobacco: Never Alcohol Use Standard Drinks/Week Comments Yes 0 (1 standard drink = 0.6 oz pure alcoho l) Sex Assigned at Date Recorded Not on file documented as of this encounter Plan of Treatment Not on filedocumented as of this encounter Procedures Procedure Name Priority Date/Time Associated Diagnosis Comme nts CT SHOULDER LT WO Routine 07/10/2019 2:31 PM Acute pain of lef t Results for this IV CONT IMAGING AIDE shoulder procedure are i n the results section. documented in this encounter Results CT Shoulder Lt WO IV Cont (07/10/2019 2:31 PM IMAGING AIDE) Anatomical Region Laterality Modality Chest, Upper Extremity, Skeletal, Shoulder Computed Tomography Specimen (Source) Anatomical Collection Method Collection Time Re ceived Time Location / / Volume Laterality 07/10/2019 2:07 PM IMAGING AIDE Impressions 07/10/2019 3:08 PM IMAGING AIDE TECHNIQUE: ??Thin section axial scans were obtained through the left shoulder. Sagittal and coronal reconstruction was performed without contrast. COMPARISON: None. FINDINGS: ?? Comminuted displaced fracture of the pro ximal humerus primarily involving the humeral neck although fracture line extends close to the inferior and superior articular surfaces of the humeral head. Addit ional comminuted fracture fragments are present involving the greater and lesser tuberosities. There is impaction and anterior angulation and displacement. Humeral head is subluxed inferiorly on the gle noid without ingrid dislocation. Moderate AC joint arthrosis. No fractures otherwise. No muscular atrophy or mass. Procedure Note Jaziel Chatterjee MD - 07/10/2019 IMPRESSION TECHNIQUE: Thin section axial scans were obtained through the left shoulder. Sagittal and coronal reconstruction was performed without contrast. COMPARISON: None. FINDINGS: Comminuted displaced fracture of the pro ximal humerus primarily involving the humeral neck although fracture line extends close to the inferior and superior articular surfaces of the humeral head. Additional comminuted fracture fragments are present involving the greater and lesser tuberosities. There is impaction and anterior angulation and displacement. Humeral head is subluxed inferiorly on the glenoid without ingrid dislocation. Moderate AC joint arthrosis . No fractures otherwise. No muscular atrophy or mass. Syeda Colón PA-C RAD CT documented in this encounter Visit Diagnoses Diagnosis Acute pain of left shoulder documented in this encounter Care Teams Firefighter Type One Relationship Specialty Start Date End Date Lina Meléndez MD PCP - General Internal Medicine 12/20/[address] [place] [address] documented as of this encounter
--- OUTSIDE RECORDS SUMMARY | 2022-04-05 15:45 | XMS_ITS | Encounter Summary ---
:1945 Author Organization [facility] Address [address] [place] [address] Care Team Providers Name Role Phone Lina Meléndez MD Primary Care Provider Reason for Referral Procedure/Equipment (Routine) - Incomplete Specialty Diagnoses / Procedures Referred By Contact Refer red To Contact Diagnoses Acute pain of left shoulder Syeda Colón [place] [address] [place] [address] Referral ID Status Reason Start Date Expiration Date Visits V isits Requested Authorized [id number] Incomplete 07/10/2019 10/08/2020 1 1 NIC PREPARATION TECHNICIAN Procedure/Equipment (Routine) - Incomplete Specialty Diagnoses / Procedures Referred By Contact Refer red To Contact Diagnoses Acute pain of left shoulder Syeda Colón PA-C Procedures XR Shoulder Lt 2 Views [address] [place] [address] Referral ID Status Reason Start Date Expiration Date Visits V isits Requested Authorized [id number] Incomplete 07/10/2019 10/08/2020 1 1 NIC PREPARATION TECHNICIAN Reason for Visit Reason Comments SHOULDER PAIN Encounter Details Date Type Department Care Team Description 07/10/2019 Office Visit Syeda Long, Acute pain of left shoulder (Primary Dx); Orthopedics PAOsman Other closed displaced fracture of proxi mal end of left humerus, initial encounter [address] [address] [place] [address] [place], [place] [phone] ([facility]) Social History Tobacco Use Types Packs/Day Years Used Date Smoking Tobacco: Never Smokeless Tobacco: Never Alcohol Use Standard Drinks/Week Comments Yes 0 (1 standard drink = 0.6 oz pure alcoho l) Sex Assigned at Date Recorded Not on file documented as of this encounter Progress Notes Syeda Colón PA-C - 07/10/2019 11:40 AM CST SUBJECTIVE: Chief Complaint: shoulder pain HPI:Maryam is a 73 y.o. female here for evaluation and treatment of a left shoulder injury. The injury occurred 07/04/2019 when she fell outside. Since that time she has been experiencing shoulder/arm pain and swelling. The patient was originally seen at a facility in [place] where an x-ray was done,a fracture of the proximal humerus was identified and she was placed in a sling. The sling has remained in place and is clean and dry. Pain is severe at the injury site today. She has been taking pain medication. she denies numbness or tingling. Past Medical History, Past Surgical History, Social History, and Family Medical History was reviewedand updated as appropriate. A complete review of systems was reviewed per the intake sheet and negative except diabetes Current Outpatient Medications Medication Sig Dispense Refill ??? ALBUterol sulfate HFA 108 (90 Base) MCG/ACT inhaler Inhale 1-2 Puffs. ??? atorvastatin (LIPITOR) 10 MG tablet Take 10 mg by mouth. ??? clobetasol (TEMOVATE) 0.05 % external solution Apply topically. ??? cloNIDine (CATAPRES) 0.3 MG tablet Take 0.3 mg by mouth. ??? clopidogrel (PLAVIX) 75 MG tablet Take 75 mg by mouth. ??? fluconazole (AKA DIFLUCAN) 200 MG tablet Take 200 mg by mouth daily (every 24 hours). ??? fluticasone (FLONASE) 50 MCG/ACT nasal solution 2 Sprays. ??? insulin glargine (AKA LANTUS) 100 UNIT/ML injection Inject 18 Units subcutaneously nightly. LW Comment:info per pt, Dr.Tom Dye PRN ??? insulin lispro (AKA HUMALOG) 100 UNIT/ML injection vial Inject subcutaneously 4 times daily (sliding scale). Indications: DIABETES MELLITUS ??? lansoprazole (AKA PREVACID) 15 MG capsule Take 1 capsule by mouth daily (every 24 hours). LW Comment:info per pt, ord Dr Sincere Dye LW Addl Instr:Indicated for: Acid Reflux (Patient not taking: Reported on 12/25/2018) 90 3 ??? magnesium oxide (MAG-OX) 400 MG tablet Take 800 mg by mouth. ??? metFORMIN (AKA GLUCOPHAGE) 500 MG tablet Take 2 tablets by mouth 2 times daily. LW Comment:info per pt, ord Eddie Epstein LW Addl Instr:Take with meals. Indicated for: Diabetes (Patient not taking: Reported on 12/25/2018) 3 ??? pantoprazole (PROTONIX) 40 MG tablet Take 40 mg by mouth. ??? pravastatin (AKA PRAVACHOL) 20 MG tablet Take 1 tablet by mouth daily (every 24 hours). LW Comment:info per pt, ord Dr Sincere SMITH Addl Instr:Indicated for: High Cholesterol 45 3 ??? unknown medication Indications: PN: ??? valACYclovir (VALTREX) 500 MG tablet Take 500 mg by mouth two times a day. ??? valsartan (AKA DIOVAN) 80 MG tablet Take 1 tablet by mouth daily (every 24 hours). LW Comment:info per pt,ord Dr. Sincere SMITH Addl Instr:Indicated for: High Blood Pressure (Patient not taking: Reported on 12/25/2018) 90 3 ??? venlafaxine (AKA EFFEXOR XR) 150 MG 24 hour release capsule Take 1 capsule by mouth daily (every24 hours). LW Comment:info per pt, ord Dr.Tom Skye SMITH Addl Instr:Take with food. May sprinkle on applesauce. Do not cut/crush/chew. Indicated for: Depression (Patient not taking: Reported on 12/25/2018)30 12 No current facility-administered medications for this visit. Allergies Allergen Reactions ??? Codeine PN: LW Reaction: Nausea ??? Other PN: LW Other1: -NKA LW Other2: -NKA ??? Review Food Intolerance PN: LW FI1: NKA ??? Sulfa Antibiotics PN: LW Reaction: gi OBJECTIVE: Exam finds a pleasant, healthy female. Neurovascularly intact. Exam of left shoulder: Skin is clean, dry, and intact. Inspection of the shoulder/arm and hand demonstrates moderate edema over the left proximal humerus. severe ecchymosis present. ROM of the injured site not assessed due to known fracture. Digital ROM: Full in all extremities. Tenderness to palpation over proximal humerus. IMAGING: X-rays were taken and independently reviewed. There is a comminuted, split fracture of the proximal humeral head with displacement of the humeral head. Assessment: Proximal humerus fracture, left Plan: Discussed with Dr. Rodriguez. Recommended CT scan and surgery. Percocet and Zofran reordered. Dr. Rodriguez's office will contact her for surgical planning. Patient verbalized understanding and agreement to our treatment plan. All of her questions were answered to her satifaction. NIC PREPARATION TECHNICIAN documented in this encounter Plan of Treatment Not on filedocumented as of this encounter Procedures Procedure Name Priority Date/Time Associated Diagnosis Comme nts XR SHOULDER LT 2 Routine 07/10/2019 12:20 PM Acute pain of lef t Results for this VIEWS ORGANIC PREPARATION TECHNICIAN shoulder procedure are i n the results section. documented in this encounter Results CT Shoulder Lt WO IV Cont (07/10/2019 2:31 PM ORGANIC PREPARATION TECHNICIAN) Anatomical Region Laterality Modality Chest, Upper Extremity, Skeletal, Shoulder Computed Tomography Specimen (Source) Anatomical Collection Method Collection Time Re ceived Time Location / / Volume Laterality 07/10/2019 2:07 PM ORGANIC PREPARATION TECHNICIAN Impressions 07/10/2019 3:08 PM ORGANIC PREPARATION TECHNICIAN TECHNIQUE: ??Thin section axial scans were obtained [...] or mass. Syeda Colón PA-C RAD CT XR Shoulder Lt 2 Views (07/10/2019 12:20 PM ORGANIC PREPARATION TECHNICIAN) Anatomical Region Laterality Modality Upper Extremity, Shoulder Digital Radiog alexandra Specimen (Source) Anatomical Collection Method Collection Time Re ceived Time Location / / Volume Laterality 07/10/2019 12:00 PM ORGANIC PREPARATION TECHNICIAN Impressions 07/10/2019 12:49 PM ORGANIC PREPARATION TECHNICIAN FINDINGS: ??There are degenerative masters es of [...] Diagnoses Diagnosis Acute pain of left shoulder - Primary Other closed displaced fracture of proxi mal end of left humerus, initial encounter Acute pain of left shoulder documented in this encounter Care Teams Battery Tester Relationship Specialty Start Date End Date Lina Meléndez MD PCP - General Internal Medicine 12/20/[address] [place] [address] documented as of this encounter
--- OUTSIDE RECORDS SUMMARY | 2022-04-05 15:45 | XMS_ITS | Encounter Summary ---
:1945 Author Organization [facility] Address [address] [place] [address] Care Team Providers Name Role Phone Lina Meléndez MD Primary Care Provider Reason for Visit Reason Comments Surgery Questions Encounter Details Date Type Department Care Team Description 07/10/2019 Telephone Specialty Center 3931 Leeann Rodriguez MD Surgery Questions [facility] 3931 [facility] 3931 [place] [id number] [phone] Social History Tobacco Use Types Packs/Day Years Used Date Smoking Tobacco: Never Smokeless Tobacco: Never Alcohol Use Standard Drinks/Week Comments Yes 0 (1 standard drink = 0.6 oz pure alcoho l) Sex Assigned at Date Recorded Not on file documented as of this encounter Nursing Notes Jim Alford - 07/10/2019 4:37 PM CST Spoke with pt - surgery scheduled for 07/16/19 AIGN ASSOCIATE Carolina Loco RN - 07/10/2019 4:08 PM CST Action: Return Call, Next Step: Schedule surgery Specific Request(s): 1. Please see notes below and call patient to schedule surgery. AIGN ASSOCIATE Callie Das - 07/10/2019 4:06 PM CST Pt called back wanting to set up surgery with Dr. Rodriguez. AIGN ASSOCIATE Edelmira Rodriguez MD - 07/10/2019 3:49 PM CST Was asked by Syeda Eldon to review patient's x-rays-she has a comminuted 3 to 4 part left proximal humerus fracture. A CT scan was obtained. Based on my reading of this, it seems to me that open reduction and internal fixation for this fracture would be the best approach-especially if the patient was having no antecedent shoulder pain. I called the patient and left a message suggesting surgery this coming Monday, July 12 at [facility]. I also put in a case request and forwarded this to Jim Alford. Edelmira Rodriguez MD AIGN ASSOCIATE documented in this encounter Plan of Treatment Not on filedocumented as of this encounter Visit Diagnoses Not on filedocumented in this encounter Care Teams Learning Support Aide Relationship Specialty Start Date End Date Lina Meléndez MD PCP - General Internal Medicine 12/20/[address] [place] [address] documented as of this encounter
--- OUTSIDE RECORDS SUMMARY | 2022-04-05 15:45 | XMS_ITS | Encounter Summary ---
:1945 Author Organization [facility] Address [address] [place] [address] Care Team Providers Name Role Phone Lina Meléndez MD Primary Care Provider Reason for Visit Reason Comments EXAM,PRE-OP Encounter Details Date Type Department Care Team Description 07/12/2019 Telephone Specialty Center 3931 Edelmira Lopez MD EXAM,PRE-OP Orthopedics 3931 [facility] [address]31 [place] [address] [place], [place] [address] [phone] Social History Tobacco Use Types Packs/Day Years Used Date Smoking Tobacco: Never Smokeless Tobacco: Never Alcohol Use Standard Drinks/Week Comments Yes 0 (1 standard drink = 0.6 oz pure alcoho l) Sex Assigned at Date Recorded Not on file documented as of this encounter Nursing Notes Jim Alford - 07/15/2019 8:00 AM CST LVM for pt to confirm pre-op exam details. Will update case request once information received MACY HELPER Hanh Hernandez - 07/12/2019 10:18 AM CST Has the patient recently had surgery or an injury? No Patient wanted Jim to know that she did her Pre-Op somewhere other than what he suggested. Please call patient when ready. MACY HELPER documented in this encounter Plan of Treatment Not on filedocumented as of this encounter Visit Diagnoses Not on filedocumented in this encounter Care Teams Button Tufter Relationship Specialty Start Date End Date Lina Meléndez MD PCP - General Internal Medicine 12/20/[address] [place] [address] documented as of this encounter
--- OUTSIDE RECORDS SUMMARY | 2022-04-05 15:45 | XMS_ITS | Encounter Summary ---
:1945 Author Organization [facility] Address [address], [place] [address] Care Team Providers Name Role Phone Lina Meléndez MD Primary Care Provider Reason for Visit Auth/Cert Specialty Diagnoses / Procedures Referred By Contact Refer red To Contact Diagnoses Closed fracture of proximal end of left humerus, unspecified fracture morphology, initial encounter Procedures OPEN REDUCTION INTERNAL FIXATION PROXIMAL HUMERUS FRACTURE Referral ID Status Reason Start Date Expiration Date Visits Requ ested Visits Authorized [id number] 1 1 Encounter Details Date Type Department Care Team Description 07/16/2019 Surgery [facility] Operating Ger Rodriguez MD OPEN REDUCTION INTERNAL Room [address] [facility] FIXATION PROXIMAL [address] [place], [place] [address] [phone] Social History Tobacco Use Types Packs/Day Years Used Date Smoking Tobacco: Never Smokeless Tobacco: Never Alcohol Use Standard Drinks/Week Comments Yes 0 (1 standard drink = 0.6 oz pure alcoho l) Sex Assigned at Date Recorded Not on file documented as of this encounter Last Filed Vital Signs Vital Sign Reading Time Taken Comments Blood Pressure 211/116 07/16/2019 11:15 AM [facility] Pulse 107 07/16/2019 11:15 AM [facility] Temperature 37.3 ??C (99.1 ??F) 07/16/2019 10:19 AM [facility] Respiratory Rate 16 07/16/2019 11:00 AM [facility] Oxygen Saturation 100% 07/16/2019 11:15 AM [facility] Inhaled Oxygen Concentration - - Weight 75 kg (165 lb 6.4 oz) 07/16/2019 10:19 AM [facility] Height 165.1 cm (5' 5) 07/16/2019 10:19 AM [facility] Body Mass Index 27.52 07/16/2019 10:19 AM [facility] documented in this encounter Discharge Summaries Matt Leavitt PA-C - 07/17/2019 11:51 AM CST Ortho Discharge Summary Admission Date: 07/16/2019 Discharge Date: 07/17/19 Admitting Diagnosis: Closed fracture of proximal end of left humerus, unspecified fracture morphology, initial encounter [S42.A] Discharge diagnosis: S/p L proximal humerus ORIF [...] Your Medications These medications were sent to [facility] [address] [place] [id number] ?? acetaminophen 500 MG tablet ?? aspirin [...] continue non-weight bearing to Left upper extremity. [place] Operator, wrist, elbow range of motion with axillary [...] must be accompanied by a responsible adult deliver driver at the time you are discharged. [...] spirometer use 3) Practice good oral care. [place]ill your teeth and use mouthwash twice daily. [...] weekends, holidays, or after 4:30 PM on weekdays. Please be aware that some insurance companies [...] Monday 8:30 AM to 5 PM at [phone] and select option 2. During evening hours, weekends, and holidays call the [facility] at [phone]. Ask the cat cracker operator to page the orthopedic surgeon documentation manager. Not all post-operative infections can be prevented, but early detection and proper treatment can prevent major catastrophes. Do not start antibiotics for incision infections without contacting the orthopedic surgeon first. IF in doubt, call the orthopedic surgeon. Lina Meléndez MD [address] [facility] [address] Call in 2 weeks for an osteoporosis workup including DEXA scan, vitamin D levels, intact PTH, and calcium intake. Total time spent on discharge on day of discharge 30 minutes. For full discharge orders and instructions, please see the after visit summary for this hospitalization. Matt Leavitt PA-C 12:11 PM 07/17/2019 [facility] documented in this encounter Discharge Instructions Discharge Instr - Other OrdersMaNicole echeverria APRN, CNP - 07/17/2019 11:57 AM CST Ordered a Echocardiogram ad an outpatient, please have this done and follow up with your primary physician. [facility]SS [facility] documented in this encounter Medications at Time [...] to patient and family. Prescriptions filled by [facility] pharmacy. Belongings checklist reviewed with patient and family and belongings sent. Care plan and education record updated. Patient pre-medicated for discharge: Yes. R: Patient and family verbalizes understanding and teaches back discharge instructions. Patient discharged at 1545 by: wheelchair with volunteer. ESS CHEESE COOKER Larisa Gaines MD - 07/17/2019 12:44 PM [...] for the patient. Larisa Gaines MD Internal [facility] Service Pager: [phone] Nicole Wilburn APRN, FLY RAIL OPERATOR - 07/17/2019 12:07 PM CST DAILY PROGRESS [...] 8.0* Assessment/Plan Center Diego is a 73-year-old Afro-Uzbek female was admitted yesterday for a left [...] Continue atorvastatin 10 mg ?? Nicole Bey FLY RAIL OPERATOR [facility] Karen, Sandra Pretty, PT - 07/17/2019 8:27 AM CST Physical [...] rehab program 0 to 6 weeks postop: [place] Operator, wrist, elbow, axillary care, pendulums, active - [...] Lives with spouse, 2 daughters Home Environment: [facility] Stairs: 1 steps to enter home, then stay on 1 level: 1 rail Current Equipment Available: 4 wheeled walker Patient PT Goals: balance and get back to baseline Patient History: ?? Moderate Complexity: 1-2 personal factors and/or comorbidities that impact plan of care: recent surgery, DM2 OBJECTIVE Treatment Location: [facility] Special Equipment: L shoulder sling Precautions: Falls risk and AROM OK to elbow, wrist, and hand 0 to 6 weeks postop: [place] Operator, wrist, elbow, axillary care, pendulums, active - [...] no LOB noted during session Standardized test: AM-PAC 6 Items (out of 24 points): Raw Score: 24, Standardized Score: 57.68, G Code: , 0.00% impaired Suggested AM-PAC Basic Mobility Stage: 52-65 - MOVING AROUND [...] medical necessity for the treatment plan above. ESS [facility] Jenna Delgado OTR/Tony - 07/17/2019 8:21 AM [...] L UE, 0 to 6 weeks postop: [place] Operator, wrist, elbow, axillary care, pendulums, active -assisted, [...] ADL/IADL completion for discharge home. GOAL MET termite exterminator goal: Patient will maximize independence and safety [...] and will have to assist. Signature: Jenna Delgado OTR/Tony 3:18 PM 07/17/2019 NOTE: The clinician's signature certifies medical necessity for the treatment plan above. ESS [facility] Adele Thompson RRT - 07/16/2019 9:58 PM CST Patient's home CPAP unit set up and ok for hospital use. Oxygen added to home CPAP: Yes Home humidifier filled: Yes Patient will need assistance placing CPAP on self: No Adele Thompson RRT 9:59 PM 07/16/2019 [facility] Shagufta Magallanes RN - 07/16/2019 4:40 PM [...] settled to room. Will continue to monitor. ESS CHEESE COOKER Bert Olguin HUC - 07/16/2019 4:21 PM CST Diabetic consult e-paged to Hospitalist pager per Dr. Rodriguez's post-op order request. ESS CHEESE COOKER documented in this encounter Procedure Notes Edelmira Rodriguez MD - 07/16/2019 2:13 PM CST NAME: MARYAM CRISOSTOMO MR#: [id number] CSN: [id number] AUTHENTICATING CLINICIAN: Edelmira Rodriguez MD CONFIRM #: [id number] LOC: 1 OPERATIVE REPORT DATE OF OPERATION: 07/16/2019 : 1945 SURGEON: Edelmira Rodriguez MD PREOPERATIVE DIAGNOSIS: Four-part left proximal humerus fracture. POSTOPERATIVE DIAGNOSIS: Four-part left proximal humerus fracture. PROCEDURE: Open reduction, internal fixation left 4-part proximal humerus fracture. IMPLANT: Synthes 3-hole proximal humeral locking plate with suture fixation of tuberosities and cancellous allograft. PHYSICAL EDUCATION AIDE: Gabriela Rdedy APRN, FLY RAIL OPERATOR. ANESTHESIA: Interscalene block with general endotracheal anesthesia. COMPLICATIONS: None. ESTIMATED BLOOD LOSS: 150 mL. INDICATIONS: The patient is 73 years old. She is right-hand dominant. On 07/04/2019, she fell. She was seen in [place] where she lives. She was placed in [...] head and the tuberosities. Thompson elevator and [place]ell elevator were also used to help control [...] postop. 5. Zero to 6 weeks postop: [place] Operator, wrist, elbow range of motion with axillary care and pendulums. Also, passive and active assisted forward elevation and external rotation at the side. 6. Six to 12 weeks postop: Add active range of motion in all directions. 7. Twelve plus weeks postop: Add strengthening. 8. Osteoporosis evaluation and treatment. JALIL:MEDQ C: CONFIRM #: [id number] ESS [facility] Gabriela Lopez, RN, LITERACY TEACHER FLY RAIL OPERATOR - 07/16/2019 10:42 AM CST [facility] Brief Operative Progress Note Surgery Date: 07/16/2019 Surgeon(s) and Role: * Edelmira Rodriguez MD - Primary Gabriela Lopez CNP assisting Pre-op Diagnosis: * Closed fracture of proximal end of left humerus, unspecified fracture morphology, initial encounter [S42.A] Post-op Diagnosis: * Closed fracture of proximal end of left humerus, unspecified fracture morphology, initial encounter [S4] Procedure(s) (LRB): OPEN REDUCTION INTERNAL FIXATION PROXIMAL HUMERUS FRACTURE (Left) EBL: 150ml Specimens: * No specimens in log * Complications / Findings: As expected Discharge Plan: Surgical Closure Device: nahomy (s) Precautions: NWB left arm, 0 to 6 weeks postop: [place] Operator, wrist, elbow, axillary care, pendulums, active-assisted, and [...] ORTHO TEAM TO ORDER AT DISCHARGE Gabriela Lopez, ROCCO, LITERACY TEACHER FLY RAIL OPERATOR [facility]SS [facility]OOK[facility] documented in this encounter Consult Notes Cely [...] teamto assess. PATTIE Huggins 07/17/19 2:00 PM ESS [facility]ESE COOKER Larisa Gaines MD - 07/16/2019 4:40 PM CSTAssociated Order(s): HOSPITAL SERVICE CONSULT HOSPITAL CONSULTATION Referring Provider: Dr. Rodriguez Reason for Consult Request: Dyspnea HPI: Maryam Crisostomo is a 73 y.o. female with h/o DM, HTN, HL, TC who was admitted for L proximal humerus fracture repair. She fell on 07/04 and was seen at an outside facility. [...] 12/07/2016 ??? Psoriasis 05/20/2016 ??? Cerebrovascular accident ([facility]) 05/20/2016 ??? GERD (gastroesophageal reflux disease) 12/18/2015 ??? HTN (hypertension) ([facility]) 12/18/2015 ??? Spinal stenosis of lumbar region without neurogenic claudication 12/18/2015 ??? Asthma ([facility]) 05/05/2007 ? ? Hyperlipidemia LDL goal <70 ([facility]C) 05/05/2007 ??? Benign neoplasm of colon 05/05/2007 ??? Type 2 diabetes mellitus without complication, with long-term current use of insulin ([facility]) 03/23/2007 ??? Backache 03/23/2007 ??? Major depressive disorder, recurrent episode ([facility]) 01/17/2007 ??? Osteoarthrosis, unspecified whether generalized [...] calf tenderness. Labs and Imaging reviewed in [facility] and pertinent positives are as follows: Imaging: [...] at any time. Larisa Gaines MD Internal [facility] Service Pager: [phone] ESS CHEESE COOKER documented in this encounter OR Notes H&P - Edelmira Rodriguez MD - 07/16/2019 11:12 AM CST Agree with Dr. Umana's H and P from 07/11/19. No new updates. Edelmira Rodriguez MD ESS [facility] COOKER documented in this encounter Plan of Treatment Scheduled Referrals Name Type Priority Associated Diagnoses Order S chedule Physical Therapy Referral Routine S/P ORIF (open reduction Ordered: 07/17/2019 internal fixatio n) fracture Other closed nondisplaced fracture of proximal end of left humerus, initial encounter documented as of this encounter Procedures Procedure Name Priority Date/Time Associated Comments Diagnosis BEDSIDE GLUCOSE Routine 07/17/2019 12:08 Results for this MONITOR POCT PM [facility] procedure are i n the results section. ECG 12 LEAD STAT 07/17/2019 8:53 Results for this INPATIENT AM [facility] procedure are i n the results section. BASIC METABOLIC Routine 07/17/2019 7:49 Results f or this PANEL AM [facility] procedure are i n the results section. HEMOGLOBIN, BLOOD Routine 07/17/2019 7:49 Results for this AM [facility] procedure are i n the results section. HGB A1C Routine 07/17/2019 7:49 Results for this AM [facility] procedure are i n the results section. BEDSIDE GLUCOSE Routine 07/17/2019 7:17 Results f or this MONITOR POCT AM [facility] procedure are i n the results section. BEDSIDE GLUCOSE Routine 07/16/2019 10:04 Results for this MONITOR POCT PM [facility] procedure are i n the results section. ECG 12 LEAD STAT 07/16/2019 8:31 Results for this INPATIENT PM [facility] procedure are i n the results section. TROPONIN I STAT 07/16/2019 8:04 Results for this PM [facility] procedure are i n the results section. US VENOUS BILAT Routine 07/16/2019 7:29 Results f or this LOWER EXTREM PM [facility] procedure are i n DOPPLER the results section. XR SHOULDER LT 2+ Routine 07/16/2019 7:03 Results for this VIEWS PM [facility] procedure are i n the results section. BEDSIDE GLUCOSE Routine 07/16/2019 5:33 Results f or this MONITOR POCT PM [facility] procedure are i n the results section. HEMOGLOBIN, BLOOD Routine 07/16/2019 4:57 Results for this PM [facility] procedure are i n the results section. BEDSIDE GLUCOSE Routine 07/16/2019 2:14 Results f or this MONITOR POCT PM [facility] procedure are i n the results section. BEDSIDE GLUCOSE Routine 07/16/2019 12:37 Results for this MONITOR POCT PM [facility] procedure are i n the results section. BT SECOND DRAW STAT 07/16/2019 12:28 Results f or this PM [facility] procedure are i n the results section. TYPE AND SCREEN STAT 07/16/2019 11:04 Results for this AM [facility] procedure are i n the results section. ANTIBODY SCREEN STAT 07/16/2019 11:04 Results for this AM [facility] procedure are i n the results section. BLOOD TYPE STAT 07/16/2019 11:04 Results for this AM [facility] procedure are i n the results section. COMPLETE BLOOD STAT 07/16/2019 11:04 Results f or this COUNT-NO DIFF AM [facility] procedure are in the results section. OPEN REDUCTION 07/16/2019 10:56 Closed fracture of INTERNAL FIXATION AM [facility] proximal end of PROXIMAL HUMERUS left humerus, FRACTURE unspecified fracture morphology, initial encounter PREP RBC LR Specified Time 07/16/2019 10:48 Results f or this AM [facility] procedure are i n the results section. ECG 12 LEAD Specified Time 07/16/2019 10:31 Results f or this INPATIENT AM [facility] procedure are i n the results section. BEDSIDE GLUCOSE Routine 07/16/2019 10:06 Results for this MONITOR POCT AM [facility] procedure are i n the results section. documented in this encounter Results (ABNORMAL) Bedside Glucose Monitor (07/17/2019 12:08 PM [facility]) P athologist Signature Glucose, Whole 217 (H) 70 - 180 07/17/2019 [facility] Blood mg/dL 12:15 PM [facility] Specimen Anatomical Collection Method Collection Time Receive d Time (Source) Location / / Volume Laterality Blood 07/17/2019 12:08 07/17/2019 PM [facility] 12:15 PM [facility] Edelmira Rodriguez MD LAB_1 Performing Organization Address City/State/ZIP Code Phon e Number [facility] [address] [place] [address] ECG 12 LEAD INPATIENT (07/17/2019 8:53 AM [facility]) P athologist Signature Ventricular Rate 66 BPM [facility] Atrial Rate 66 BPM [facility] P-R Interval 148 ms [facility] QRS Duration 88 ms [facility] QT 392 ms M[facility] QTc 410 ms MUSE [facility] P [place] 38 degrees MUSE GHP T [place] 37 degrees [facility]USE [facility] Specimen (Source) Anatomical Collection Method Collection Time Re ceived Time Location / / Volume Laterality 07/17/2019 8:53 AM [facility] Narrative [facility] - 07/17/2019 9:14 AM [facility] Sinus rhythm Voltage criteria for left ventricular hy pertrophy Abnormal ECG When compared with ECG of 16-JUL-2019 20 :31, No significant change was found Confirmed by Coleman Patel ([id number]) on 06/27 9:14:19 AM Procedure Note Coleman Patel MD - 07/17/2019Formatti ng of this note might be different from the original. Sinus rhythm Voltage criteria for left ventricular hy pertrophy Abnormal ECG When compared with ECG of 16-JUL-2019 20 :31, No significant change was found Confirmed by Coleman Patel ([id number]) on 06/27 9:14:19 AM Larisa Gaines MD PN ECG ORDERABLES Performing Organization Address [facility]/ZIP [facility] Phon e Number M[facility] [address] [place] [address] (ABNORMAL) Basic Metabolic Panel (IN AM) (07/17/2019 7:49 AM [facility]) Analysis Performed At Patho logist Time Signature Sodium 131 (L) 136 - 145 07/17/2019 [facility] mmol/L 8:42 AM [facility] Potassium 3.3 (L) 3.5 - 5.1 07/17/2019 [facility] mmol/L 8:42 AM [facility] Chloride 98 98 - 109 07/17/2019 [facility] mmol/L 8:42 AM [facility] CO2 25 20 - 29 07/17/2019 [facility] mmol/L 8:42 AM [facility] Anion Gap 8 7 - 16 07/17/2019 [facility] mmol/L 8:42 AM [facility] Calcium 8.4 8.4 - 10.4 07/17/2019 [facility] mg/dL 8:42 AM [facility] BUN 16 7 - 26 07/17/2019 [facility] mg/dL 8:42 AM [facility] Creatinine 0.65 0.55 - 07/17/2019 [facility] 1.02 mg/dL 8:42 AM [facility] GFR, Estimated >60 >60 07/17/2019 [facility] mL/min/1.7 8:42 AM [facility] 3m2 GFR, Est If >60 >60 07/17/2019 [facility] mL/min/1.7 8:42 AM [facility] Uzbek 3m2 Glucose 187 (H) 70 - 100 07/17/2019 [facility] mg/dL 8:42 AM [facility] Comment: The given reference range is fo r the fasting state. Non-fasting reference range for glucose is 70 - 180 mg/dL. Specimen Anatomical Collection Method / Collection Time Recei kaylene Time (Source) Location / Volume Laterality Blood Venipuncture / 07/17/2019 7:49 07/17/2019 7:56 Unknown AM [facility] AM [facility] Larisa Gaines MD LAB_1 Performing Organization Address City/[facility] Phon e Number [facility] [address] [place] [address] (ABNORMAL) Hemoglobin A1C Glycosylated (IN AM) (07/17/2019 7:49 AM [facility]) Analysis Performed At Patho logist Time Signature Hemoglobin A1C 6.7 (H) <=5.6 % 07/17/2019 [facility] 1:39 PM [facility] Specimen Anatomical Collection Method / Collection Time Recei kaylene Time (Source) Location / Volume Laterality Blood Venipuncture / 07/17/2019 7:49 07/17/2019 7:56 Unknown AM [facility] AM [facility] Narrative [facility] - 07/17/2019 1:39 P M [facility] For patients not previously diagnosed with diabetes: 5.7-6.4%: Increased risk for diabetes 6.5% and greater: Diagnostic for diabete s For patients diagnosed with diabetes: <8.0%: Goal of therapy for ages 18-75 Clinicians may recommend a higher or low er goal for specific individuals. Larisa Gaines MD LAB_1 Performing Organization Address [facility] Phon e Number [facility] [address] [place] [address] (ABNORMAL) Hemoglobin in AM POD #1 (07/17/2019 7:49 AM [facility]) athologist Signature Hemoglobin 8.0 (L) 12.0 - 15.5 07/17/2019 [facility] g/dL 8:04 AM [facility] Specimen Anatomical Collection Method / Collection Time Recei kaylene Time (Source) Location / Volume Laterality Blood Venipuncture / 07/17/2019 7:49 07/17/2019 7:56 Unknown AM [facility] AM [facility] Gabriela Lopez RN, LITERACY TEACHER FLY RAIL OPERATOR LAB_1 Performing Organization Address [facility] Phon e Number [facility] [place] [address] (ABNORMAL) Bedside Glucose Monitor (07/17/2019 7:17 AM PROC[facility]) athologist Signature Glucose, Whole 182 (H) 70 - 180 07/17/2019 [facility] Blood mg/dL 7:20 AM [facility] Specimen Anatomical Collection Method Collection Time Receive d Time (Source) Location / / Volume Laterality Blood 07/17/2019 7:17 AM 0 7:20 [facility] AM [facility] Edelmira Rodriguez MD LAB_1 Performing Organization Address [facility] Phon e Number [facility] [address] [place] [address] (ABNORMAL) Bedside Glucose Monitor (07/16/2019 10:04 PM PROCESS [facility]OOKER) athologist Signature Glucose, Whole 333 (H) 70 - 180 07/16/2019 [facility] Blood mg/dL 10:10 PM [facility] Specimen Anatomical Collection Method Collection Time Receive d Time (Source) Location / / Volume Laterality Blood 07/16/2019 10:04 07/16/2019 PM [facility] 10:10 PM PROCESS [facility] Edelmira Rodriguez MD LAB_1 Performing Organization Address [facility] Phon e Number [facility] [address] [place] [address] ECG 12 Lead Inpatient (07/16/2019 8:31 PM PROCESS [facility]OOKER) athologist Signature Ventricular Rate 73 BPM MUSE [facility] Atrial Rate 73 BPM [facility] P-R Interval 152 ms [facility] QRS Duration 86 ms MUSE [facility] QT 376 ms MUSE GHP QTc 414 ms MUSE GHP P [place] 23 degrees MUSE GHP R [place] 33 degrees MUSE GHP T [place] 67 degrees MUSE [facility] Specimen (Source) Anatomical Collection Method Collection Time Re ceived Time Location / / Volume Laterality 07/16/2019 8:31 PM [facility] Narrative [facility] - 07/17/2019 6:38 AM [facility] Sinus rhythm ST elevation consider anterior injury or acute infarct ACUTE [place] / STEMI Abnormal ECG When compared with ECG of 16-JUL-2019 10 :31, ST elevation V2,3 is new, slight ST depr ession avf Confirmed by Coleman Patel ([id number]) on 06/27 6:38:17 AM Procedure Note Coleman Patel MD - 07/17/2019Formatti ng of this note might be different from the original. Sinus rhythm ST elevation consider anterior injury or acute infarct ACUTE [place] / STEMI Abnormal ECG When compared with ECG of 16-JUL-2019 10 :31, ST elevation V2,3 is new, slight ST depr ession avf Confirmed by Coleman Patel ([id number]) on 06/27 6:38:17 AM Daria Peng APRN, CNP PN ECG ORDERABLES Performing Organization Address City/State/ZIP Code Phon e Number [facility] [address] [place] [address] Troponin I STAT (07/16/2019 8:04 PM [facility]) P athologist Signature Troponin I 0.02 0.00 - 0.03 07/16/2019 [facility] ng/mL 8:33 PM [facility] Specimen Anatomical Collection Method / Collection Time Recei kaylene Time (Source) Location / Volume Laterality Blood Venipuncture / 07/16/2019 8:04 07/16/2019 8:08 Unknown PM [facility] PM [facility] Daria Peng APRN, CNP LAB_1 Performing Organization Address City/State/ZIP Code Phon e Number [facility] [address] [place] [address] US VENOUS BILAT LOWER EXTREM DOPPLER (07/16/2019 7:29 PM [facility]) Anatomical Region Laterality Modality Vascular, Leg Ultrasound Specimen (Source) Anatomical Collection Method Collection Time Re ceived Time Location / / Volume Laterality 07/16/2019 6:58 PM [facility] Impressions 07/16/2019 7:32 PM [facility] COMPARISON: ??None. CLINICAL HISTORY: ??dyspnea and swelling [...] Shoulder Lt 2+ Views (07/16/2019 7:03 PM [facility]) Anatomical Region Laterality Modality Upper Extremity, Shoulder Digital Radiog alexandra Specimen (Source) Anatomical Collection Method Collection Time Re ceived Time Location / / Volume Laterality 07/16/2019 6:22 PM PROCESS [facility] Impressions 07/16/2019 7:06 PM [facility] COMPARISON: ??07/10/2019 FINDINGS: ??Interval plate and screw [...] in the acromioclavicular joint. Gabriela Lopez RN, LITERACY TEACHER FLY RAIL OPERATOR RAD GD (ABNORMAL) Bedside Glucose Monitor (07/16/2019 5:33 PM PROC[facility]) athologist Signature Glucose, Whole 244 (H) 70 - 180 07/16/2019 [facility] Blood mg/dL 5:45 PM [facility] Specimen Anatomical Collection Method Collection Time Receive d Time (Source) Location / / Volume Laterality Blood 07/16/2019 5:33 PM 0 5:45 PROCESS CHEESE COOK[facility] PM PROCESS [facility] C[facility] Edelmira Rodriguez MD LAB_1 Performing Organization Address City/[facility] Phon e Number [facility] [address] [place] [address] (ABNORMAL) Hemoglobin (07/16/2019 4:57 PM PROCESS CHEESE COOKER) athologist Signature Hemoglobin 9.1 (L) 12.0 - 15.5 07/16/2019 [facility] g/dL 5:20 PM [facility] Specimen Anatomical Collection Method / Collection Time Recei kaylene Time (Source) Location / Volume Laterality Blood Venipuncture / 07/16/2019 4:57 07/16/2019 5:14 Unknown PM PROCESS [facility] PM PROCESS [facility] Gabriela Lopez RN, LITERACY TEACHER FLY RAIL OPERATOR LAB_1 Performing Organization Address [facility] Phon e Number [facility] [address] [place] [address] (ABNORMAL) Bedside Glucose Monitor (07/16/2019 2:14 PM PROCESS CHEESE COOKER) athologist Signature Glucose, Whole 206 (H) 70 - 180 07/16/2019 [facility] Blood mg/dL 2:20 PM [facility] Specimen Anatomical Collection Method Collection Time Receive d Time (Source) Location / / Volume Laterality Blood 07/16/2019 2:14 PM 0 2:20 PROCESS CHEESE COOKER PM PROCESS CHEESE COOKER Edelmira Rodriguez MD LAB_1 Performing Organization Address City/[facility] Phon e Number [facility] [address] [place] [address] (ABNORMAL) Bedside Glucose Monitor (07/16/2019 12:37 PM PROCESS CHEESE COOKER) athologist Signature Glucose, Whole 183 (H) 70 - 180 07/16/2019 [facility] Blood mg/dL 2:40 PM [facility] Specimen Anatomical Collection Method Collection Time Receive d Time (Source) Location / / Volume Laterality Blood 07/16/2019 12:37 07/16/2019 2:40 PM PROCESS CHEESE COOKER PM PROCESS CHEESE COOKER Edelmira Rodriguez MD LAB_1 Performing Organization Address [facility] Phon e Number [facility] [address] [place] [address] Blood Type second draw (07/16/2019 12:28 PM PROCESS CHEESE COOKER) athologist Signature ABO A 07/16/2019 [facility] 12:58 PM [facility] BLOOD BANK RH Positive 07/16/2019 [facility] 12:58 PM [facility] Specimen Anatomical Collection Method / Collection Time Recei kaylene Time (Source) Location / Volume Laterality Blood Venipuncture / 07/16/2019 12:28 0 Unknown PM PROCESS [facility] 12:40 PM PROCESS CHEESE [facility]OOKER Edelmira Rodriguez MD LAB_1 Performing Organization Address [facility] Phon e Number [facility] [address] [place] [address] Antibody Screen (07/16/2019 11:04 AM PROCESS CHEESE COOKER) [facility] Time Signature Antibody Screen Negative 07/16/2019 [facility] Interpretation 12:37 PM [facility] BLOOD B[facility] Specimen Anatomical Collection Method / Collection Time Recei kaylene Time (Source) Location / Volume Laterality Blood Venipuncture / 07/16/2019 11:04 0 Unknown AM PROC[facility] 11:13 AM PROCESS [facility] Gabriela Lopez RN, LITERACY TEACHER FLY RAIL OPERATOR LAB_1 Performing Organization Address [facility] Phon e Number [facility] [address] [place] [address] Blood Type (07/16/2019 11:04 AM PROCESS [facility]ESE [facility]OOKER) athologist Signature ABO A 07/16/2019 [facility] 12:37 PM [facility] BLOOD BANK RH Positive 07/16/2019 [facility] 12:37 PM [facility] Specimen Anatomical Collection Method / Collection Time Recei kaylene Time (Source) Location / Volume Laterality Blood Venipuncture / 07/16/2019 11:04 0 Unknown AM [facility] 11:13 AM PROCESS [facility] Gabriela Lopez RN, LITERACY TEACHER FLY RAIL OPERATOR LAB_1 Performing Organization Address [facility] Phon e Number [facility] [address] [place] [address] (ABNORMAL) Complete Blood Count-No Diff (07/16/2019 11:04 AM PROCESS CHEESE COOKER) [facility] Method Time Signature WBC 5.6 3.5 - 10.5 07/16/2019 [facility] x10(9)/L 11:26 AM [facility] RBC 2.99 (L) 3.90 - 07/16/2019 [facility] 5.03 11:26 AM [facility] x10(12)/L Hemoglobin 9.5 (L) 12.0 - 07/16/2019 [facility] 15.5 g/dL 11:26 AM [facility] HCT 28.0 (L) 34.9 - 07/16/2019 [facility] 44.5 % 11:26 AM [facility] MCV 93.6 80.0 - 07/16/2019 [facility] 100.0 fL 11:26 AM [facility] MCH 31.8 27.6 - 07/16/2019 [facility] 33.3 pg 11:26 AM [facility] MCHC 33.9 31.5 - 07/16/2019 [facility] 35.2 g/dL 11:26 AM [facility] RDW 12.3 11.9 - 07/16/2019 [facility] 15.5 % 11:26 AM [facility] Platelets 309 150 - 450 07/16/2019 [facility] x10(9)/L 11:26 AM [facility] Automated NRBC 0 <=0 /100 07/16/2019 [facility] WBC 11:26 AM [facility] Specimen Anatomical Collection Method / Collection Time Recei kaylene Time (Source) Location / Volume Laterality Blood Venipuncture / 07/16/2019 11:04 0 Unknown AM PROCESS [facility] 11:13 AM PROCESS [facility] Gabriela Lopez RN, LITERACY TEACHER FLY RAIL OPERATOR LAB_1 Performing Organization Address [facility] Phon e Number [facility] [address] [place] [address] Prep RBC: , 1 Units (07/16/2019 10:48 AM PROCESS CHEESE COOKER) Component Value Ref Test Analysis Performed At Patholo gist Range Method Time Signature BLOOD PRODUCT [id number] [facility] CODE [facility]LOOD BANK BLOOD UNIT NUMBER [id number] METHOD IST BLOOD BANK CROSSMATCH Compatible [facility] INTERPRETATION [facility]LOOD [facility] BLOOD DISPENSE Returned/Releas [facility] STATUS ed BLOOD BANK Unit Expiration [id number] [facility] Date BLOOD BANK UNIT BT BARCODE 6200 [facility] CODING SYSTEM ISBT [facility] PRODUCT RBC LR [facility] Specimen (Source) Anatomical Collection Method Collection Time Re ceived Time Location / / Volume Laterality Blood 07/16/2019 10:48 AM PROCESS CHEESE COOKER Gabriela Lopez RN, LITERACY TEACHER FLY RAIL OPERATOR LAB_BLOOD PRODUCT S Performing Organization Address City/[facility]/ZIP Code Phon e Number [facility] [address] [place] [address] ECG 12 Lead Inpatient (07/16/2019 10:31 AM PROCESS CHEESE COOKER) P athologist Signature Ventricular Rate 87 BPM [facility] Atrial Rate 87 BPM [facility] P-R Interval 152 ms [facility] QRS Duration 86 ms [facility] QT 364 ms [facility] QTc 438 ms [facility] P [place] 44 degrees MUSE [facility] R [place] 14 degrees MUSE [facility] T [place] 51 degrees MUSE [facility] Specimen (Source) Anatomical Collection Method Collection Time Re ceived Time Location / / Volume Laterality 07/16/2019 10:31 AM PROCESS CHEESE COOKER Narrative [facility] - 07/16/2019 11:01 AM PROCESS CHEESE COOKER Sinus rhythm Possible Left atrial enlargement Possible [...] e Number [facility] [address] [place] [address] Bedside Glucose Monitor (07/16/2019 10:06 AM PROCESS CHEESE COOKER) P athologist Signature Glucose, Whole 177 70 - 180 07/16/2019 [facility] Blood mg/dL 10:10 AM [facility] Specimen Anatomical Collection Method Collection Time Receive d Time (Source) Location / / Volume Laterality Blood 07/16/2019 10:06 07/16/2019 AM PROCESS CHEESE COOKER 10:10 AM PROCESS CHEESE COOKER Edelmira Rodriguez MD LAB_1 Performing Organization Address City/State/ZIP Code Phon e Number [facility] [address] [place] [address] documented in this encounter Visit Diagnoses Diagnosis [...] goal <70 (HRC) Other and unspecified hyperlipidemia Closed fracture of proximal end of left humerus, unspecified fracture morphology, initial encounter Plan of Care - Daria Peng APRN, CNP - 07/16/2019 6:21 PM CST Cross Cover [...] Daria Peng APRN, KAI 6:25 PM 07/16/2019 ESS CHEESE COOKER documented in this encounter Admitting Diagnoses Diagnosis Closed fracture of left proximal humerus Closed fracture of unspecified part of u pper end of humerus documented in this encounter Administered Medications Inactive Administered Medications - up to 3 most recent administrations Medication Order MAR Action Action Date Dose Rate Site acetaminophen (TYLENOL) tablet 650 Given 07/17/2019 3:06 PM PROCESS CHEESE COOKER 650 mg mg 650 mg, Oral, QID, First dose on Mon07/16/19 at 2000, Until Discontinued, Post-op Given 07/17/2019 12:46 PM PROCESS CHEESE COOKER 650 mg Given 07/17/2019 8:09 AM PROCESS CHEESE COOKER 650 mg aspirin EC enteric coated tablet 162 mg Given 07/17/2019 10:47 AM PROCESS CHEESE COOKER 162 mg 162 mg, Oral, DAILY, First dose on Mon07/17/19 at 1015, Until Discontinued, Tablet should be swallowed whole. atorvastatin (LIPITOR) tablet 10 mg Given 07/16/2019 8:07 PM PROCESS CHEESE COOKER 10 mg 10 mg, Oral, DAILY - 1999, First dose on Mon07/16/19 at 2000, Until Discontinued calcium carbonate (TUMS) chewable tablet Given 07/17/2019 1:29 A M PROCESS CHEESE COOKER 500 mg 500-1,000 mg 500-1,000 mg, Oral, TID PRN, Heartburn, Starting on Mon07/17/19 at 0051, Until Mon07/17/19 at 1742, Each tablet provides 200 mg elemental calcium cloNIDine (CATAPRES) tablet 0.3 mg Given 07/17/2019 2:27 PM PROCESS CHEESE COOKER 0.3 mg 0.3 mg, Oral, TID, First dose on Mon07/16/19 at 2000, Until Discontinued Given 07/17/2019 8:09 AM PROCESS CHEESE COOKER 0.3 mg Given 07/16/2019 8:07 PM PROCESS CHEESE COOKER 0.3 mg clopidogrel (PLAVIX) tablet 75 mg Given 07/17/2019 8:09 AM PROCESS CHEESE COOKER 75 mg 75 mg, Oral, DAILY, First [...] For patient WITHOUT existing IV access: No tify IV nurse or Resident Clinician to establish an access site fluticasone propionate (FLONASE) 50 MCG/ACT Given 06/27 8:09 AM PROCESS CHEESE COOKER 2 Sprays nasal spray 2 Dewey 2 Dewey, Both Nostrils, BID, First dose on Mon07/16/19 [...] water to clean. Given 07/16/2019 8:39 PM PROCESS CHEESE COOKER 2 Sprays glucose (GLUTOSE) oral gel 15-30 g of gl ucose 15-30 g of glucose, Oral, PRN, Hypoglycemia, blood glu cose less than 70mg/dL, Starting on Mon07/16/19 at 1712, Until Mon07/17/19 at 1742, As directed by the Hypoglycemia Treatment Protocol. 37.5g tube delivers 1 5g of glucose HYDROmorphone injectable 0.2 mg Given 07/17/2019 6:48 AM PROCESS CHEESE COOKER 0.2 mg 0.2 mg, Intravenous, Q1H PRN, [...] time as ORAL opioids. HOLD if on WORKGROUP LEADER., Post-op Given 07/17/2019 4:49 AM PROCESS [facility]ESE COOKER 0.2 mg HYDROmorphone injectable 0.2-0.4 mg Given 07/17/2019 5:27 AM PROCESS CHEESE COOKER 0.4 mg 0.2-0.4 mg, Intravenous, ONCE PRN, [...] insulin glargine (LANtus) Given 07/16/2019 8:26 PM PROCESS CHEESE COOKER 18 Units Abdominal Tissue 100 UNIT/ML injection 18 Units 18 Units, Subcutaneous, DAILY, First dose on Mon07/16/19 at 2100, Until Discontinued, DO NOT mix with other insulin or give IV. Hazardous waste disposal required. insulin lispro (HumALOG) Given 07/17/2019 12:47 PM 2 Units Abdominal Tissue injection vial PROCESS CHEESE COOKER Subcutaneous, TID WITH MEALS, First dose on Mon07/16/19 at 1730, Mealtime Insulin: Give 1 unit per carb choice (15 grams of carbohydrate) Given 07/17/2019 8:13 AM PROCESS CHEESE COOKER 2 Units Abdom inal Tissue Given 07/16/2019 5:30 PM PROCESS CHEESE COOKER 3 Units Abdom inal Tissue insulin lispro (HumALOG) Given 07/17/2019 1:32 AM 1 Units Abdominal Tissue injection vial PROCESS CHEESE COOKER Subcutaneous, PRN SEE ADMIN INSTRUCTIONS, Other, Give with snack., Starting on Mon07/16/19 at 1712, For SNACKS, give 1 unit per carb choice (15 grams of carbohydrate) insulin lispro (HumALOG) Given 07/17/2019 12:47 PM 2 Units Abdominal Tissue injection vial PROCESS CHEESE COOKER Subcutaneous, TID WITH MEALS, First dose on [...] please order separately. Given 07/17/2019 8:11 AM PROCESS CHEESE COOKER 1 Units Abdom inal Tissue Given 07/16/2019 8:16 PM PROCESS CHEESE COOKER 2 Units Abdom inal Tissue insulin lispro (HumALOG) injection vial Given 07/16/2019 10:26 PM PROCESS CHEESE COOKER 3 Units Othe r Subcutaneous, HS, First [...] injection 15 mg Given 07/17/2019 8:45 AM PROCESS CHEESE COOKER 15 mg 15 mg, Intravenous, Q6H, First dose on Mon07/17/19 at 0845, Last dose on Mon07/18/19 at 0200, For 24 hours magnesium hydroxide (MILK OF MAGNESIA) Given 07/17/2019 8:09 AM PROCESS [facility]ESE COOKER 30 mL suspension 30 mL 30 mL, Oral, DAILY, First dose on Mon07/17/19 at 0800, Until Discontinued, Hold for loose stools., Post-op magnesium oxide-amino acids Given 07/16/2019 8:07 PM PROCESS CHEESE COOKER 2 Table ts (DF-FJMZ-IMDNLDM) tablet 2 Tablet 2 Tablet, Oral, HS, First dose on Mon07/16/19 at 2100, Until Discontinued, Provides 133 mg elemental Magnesium/tablet (2 tabs equivalent to one Mag-Ox 400 mg) ondansetron (ZOFRAN) injection 4 mg Given 07/17/2019 5:34 AM PROCESS [facility]ESE [facility]OOKER 4 mg 4 mg, Intravenous, Q4H PRN, [...] immediate release tablet Given 07/17/2019 5:27 AM PROCESS CHEESE COOKER 5 mg 2.5-5 mg 2.5-5 mg, Oral, [...] range doses., Post-op oxyCODONE (ROXICODONE) immediate release Given 07/17/2019 3:07 P M PROCESS CHEESE COOKER 10 mg tablet 5-10 mg 5-10 mg, Oral, Q2H PRN, Pain, Severe Pain (pain score 8-10), Starting on Mon07/17/19 at 0830, Until Mon07/17/19 at 1742 Given 07/17/2019 12:46 PM PROCESS [facility]ESE COOKER 10 mg Given 07/17/2019 10:46 AM PROCESS CHEESE COOKER 10 mg senna (SENOKOT) tablet 1 Tablet Given 07/16/2019 8:07 PM PROCESS CHEESE COOKER 1 Tablet 1 Tablet, Oral, DAILY - 1999, First dose on Mon07/16/19 at 2000, Until Discontinued, Give every day while on opioids (stimulant) starting day of surgery. Hold for loose stools., Post-op sodium chloride 0.9% infusion Started 07/16/2019 4:45 PM PROCESS CHEESE COOKER 75 mL/hr Intravenous, at 75 mL/hr, CONTINUOUS, Starting on Mon07/16/19 at 1415, Post-op sodium chloride 0.9% injection 10-60 mL Given 07/17/2019 4:49 AM PROCESS CHEESE COOKER 10 mL 10-60 mL, Intravenous, PRN, Line Patency, Starting on Mon07/16/19 at 1046, Until Mon07/17/19 at 1742 sodium chloride for irrigation 0.9 Given 07/16/2019 1:15 PM PROCESS CHEESE COOKER 1,000 mL Wound Site % ONCE PRN, Starting on Mon07/16/19 at 1315, Intra-op vancomycin (VANCOCIN) powder for Given 07/16/2019 1:15 PM PROCESS CHEESE COOKER 50 0 mg Wound Site intra-op use ONCE PRN, Starting on Mon07/16/19 at 1315, Intra-op documented in this encounter Active and Recently Administered Medications Times are shown in PROCESS CHEESE COOK[facility]. Scheduled Medication Order 07/15/2019 07/16/2019 07/17/2019 acetaminophen [...] Shagufta Coleman RN)1246 (Given - Provider: Shagufta Magallanes, ROCCO)1506 (Given - Provider: Shagufta Magallanes RN) 650 mg, Oral, QID, First dose on Mon07/16/19 at 2000, Post-op aspirin chewable tablet 81 mg (COMPLETED) 2006 (Given - Provider: Arjun Be RN) 81 mg, Oral, ONCE, On Mon07/16/19 at 1930, For 1 dose aspirin EC enteric coated tablet 162 mg 1047 (Given - Provider: Shagufta Magallanes, ROCCO) 162 mg, Oral, DAILY, First dose on Mon at 1015, Tablet should be swallowed whole. atorvastatin (LIPITOR) tablet 10 mg 2006 (Given - Provider: Arjun Be RN) 10 mg, Oral, DAILY - 1999, First dose on Mon07/16/19 at 2000 ceFAZolin (aka ANCEF) 2 g in dextrose 100 ml IVPB (COMPLETED ) 1140 (Given - Provider: Kaiden Peterson, LITERACY TEACHER, ENGINEER SERGEANT) 2 g, Intravenous, Administer over 30 Min utes, ONCE, Mon07/16/19 at 1000, For 1 dose, Infuse within 60 minutes prior to incision; Re-dose 1 gram IV every 4 hours after initial dose until incision closed., Pre-op ceFAZolin (ANCEF) 1 g in dextrose 50 ml IVPB (COMPLETED) 2038 (Started - Provider: Arjun Be RN)2108 (Infused - Provider: Arjun Be RN) 035 (Started - Provider: Arjun Be RN)0424 (Infused - Provider: Arjun Be RN) 1 g, Intravenous, Administer over 30 Min utes, Q8H (NON-STND), First dose on Mon07/16/19 at 2000, For 2 doses, Post-op cloNIDine (CATAPRES) tablet 0.3 mg (COMPLETED) 151 (Given - Provider: Nicole Renae RN) 0.3 mg, Oral, ONCE, Mon07/16/19 at 1515, For 1 dose, Tube to #25 , PACU (only) cloNIDine (CATAPRES) tablet 0.3 mg (COMPLETED) 182 (Given - Provider: Shagufta Magallanes RN - Comment: Pt was refusing it.) 0.3 mg, Oral, ONCE, Mon07/16/19 at 1700, For 1 dose cloNIDine (CATAPRES) tablet 0.3 mg 2006 (Given - Provider: Arjun Be RN) 08 (Given - Provider: Shagufta Coleman, ROCCO)142 (Given - Provider: Shagufta Magallanes, ROCCO) 0.3 mg, Oral, TID, First dose on Mon07/16/19 at 2000 clopidogrel (PLAVIX) tablet 75 mg 808 (Given - Provider: Shagufta Magallanes, ROCCO) 75 mg, Oral, DAILY, First dose on Mon07/17/19 at 0800 fluticasone propionate (FLONASE) 50 MCG/ACT nasal spray 2 Sp ray 2038 (Given - Provider: Arjun Be RN) 808 (Given - Provider: Shagufta Magallanes RN) 2 Dewey, Both Nostrils, BID, First dose on Mon07/16/19 [...] Shagufta Coleman RN)1247 (Given - Provider: Shagufta Magallanes, ROCCO) Subcutaneous, TID WITH MEALS, First dose on Mon07/16/19 at 1730, Mealtime Insulin: Give 1 unit per carb choice (15 grams of carbohydrate) insulin lispro (HumALOG) injection vial(Linked Group 1) 2015 (Given - Provider: Arjun Be RN - Comment: eating now) 0811 (Given - Provider: Shagufta Magallanes, ROCCO)1247 (Given - Provider: Shagufta Magallanes, ROCCO) Subcutaneous, TID WITH MEALS, First dose on [...] (Enter Reason in Comment Area) - Comment: error)2225 (Given - Provider: Arjun Be RN - [...] Magallanes, ROCCO)1427 (Not Given - Provider: Shagufta Magallanes, ROCCO - Reason: Patient/family refused) 15 mg, Intravenous, Q6H, First dose on Mon07/17/19 at 0845, For 24 hours labetalol (NORMODYNE) injection 5 mg (COMPLETED) 1515 (Given - Provider: Nicole Renae RN) 5 mg, Intravenous, ONCE, Mon07/16/19 at 1515, For 1 dose, Give over 1 to 2 minutes, PACU (only) lidocaine PF (XYLOCAINE) 1 % injection 0.1-0.3 mL (COMPLETED ) 1051 (Given - Provider: Toya Rodriguez RN) 0.1-0.3 mL, Subcutaneous, ONCE, 07/16 at 1000, For 1 dose, Lidocaine to be used for IV starts unless patient refuses., Pre-op magnesium hydroxide (MILK OF MAGNESIA) suspension 30 mL 0809 (Given - Provider: Shagufta Magallanes, ROCCO) 30 mL, Oral, DAILY, First dose on Mon at 0800, Hold for loose stools., Post-op magnesium oxide-amino acids (MI-EXND-DNAPMWR) tablet 2 Table t 2006 (Given - Provider: Arjun Be RN) 2 Tablet, Oral, HS, First dose on Mon at 2100, Provides 133 mg elemental Magnesium/tablet (2 tabs equivalent to one Mag-Ox 400 mg) senna (SENOKOT) tablet 1 Tablet 2006 (Gi randall - Provider: Arjun Be RN) 1 Tablet, Oral, DAILY - 1999, First dose on Mon07/16/19 at 2000, Give every day while on opioids (stimulant) starting day of surgery. Hold for loose stools., Post-op Continuous Medication Order 07/15/2019 07/16/2019 07/17/2019 lactated ringers infusion (CANCELED) 105 1 (Started - Provider: Toya Rodriguez, ROCCO)1407 (Anesthesia Fluid - Provider: Kaiden Peterson APRN, ENGINEER SERGEANT) 25 mL/hr, Intravenous, at 25 mL/hr, CONT INUOUS, Starting Mon07/16/19 at 1000, Administer on all preop surgery patients, ages 12 and older, unless specified differently in the Protocol for Preop Initiation of IV fluids Order Set., Pre-op sodium chloride 0.9% infusion 1645 (Started - Pr ovider: Micki Guillaume RN) 0828 (Stopped - Provider: Shagufta Magallanes RN) Intravenous, at 75 mL/hr, CONTINUOUS, Starting Mon07/16/19 [...] after IV opioid administration. HOLD if on WORKGROUP LEADER., Use of ORAL opioids is encouraged as [...] time as ORAL opioids. HOLD if on WORKGROUP LEADER., Post-op HYDROmorphone injectable 0.2-0.4 mg(Linked Group 2) [...] Group 1) 0132 (Given - Provider: Arjun Be, ROCCO) Subcutaneous, PRN SEE ADMIN INSTRUCTIONS , Other, Give with snack., Starting Mon07/16/19 at 1712, For SNACKS, give 1 unit per carb choice (15 grams of carbohydrate) melatonin tablet 3 mg 3 mg, Oral, HS PRN, Sedation, sleep, Starting Mon07/16/19 at 161 8, Post-op midazolam (VERSED) injection 0.5-1 mg (CANCELED) 1533 (Given - Provider: Nicole Renae RN) 0.5-1 mg, Intravenous, [id number], Anxiety , Starting Mon07/16/19 at 1535, Maximum cumulative dose is 2 mg. TO BE GIVEN IN PACU ONLY., PACU/Recovery midazolam (VERSED) injection 1-2 mg (CANCELED) 1111 (Given - Provider: Toya Rodriguez, ROCCO) 1-2 mg, Intravenous, B2IECLAM, Sedation, Anxiety, Procedure, Starting Mon07/16/19 at 0956, [...] Group 3) 0534 (Given - Provider: Arjun Be, ROCCO) 4 mg, Intravenous, Q4H PRN, Nausea, Vomi [...] Arjun Be RN)0809 (Given - Provider: Shagufta Magallanes RN) 2.5-5 mg, Oral, Q2H PRN, Other, Moderate [...] Shagufta Magallanes RN)1046 (Given - Provider: Shagufta Magallanes, ROCCO)1246 (Given - Provider: Shagufta Magallanes RN)1507 (Given - Provider: Shagufta Magallanes RN) 5-10 mg, Oral, Q2H PRN, Pain, Severe [...] (COMPLE CARLA) 0900 (Given - Provider: Shagufta Magallanes RN) Starting on Mon07/17/19 at 0844, Until W ed 07/17/19 at 0900, For 1 dose, Shagufta Ramos : cabinet override sodium chloride 0.9% 0.9 % injection - ADS Override Pull (COMPLE CARLA) 1430 (Given - Provider: Shagufta Magallanes RN) Starting on Mon07/17/19 at 1422, Until W [...] score increasing by 3 in 30minutes., Starting 07/16/19 at 1618, For 24 hours
Do NO [...] Intravenous, Q4H PRN, Nausea, Vomi ting, Starting 07/16/19 at 1653
Give IV if unable to take oral.
Post-op Or ondansetron (ZOFRAN-ODT) disintegrating tablet 4 mgJump to med 4 mg, Oral, Q4H PRN, Nausea, Vomiting, S tarting 07/16/19 at 1653
Do not swallow tablet whole. Allow to dissolve on the tongue without chewing.
Post-op documented in this encounter Care Teams Direct Sales Professional Relationship Specialty Start Date End Date Lina Meléndez MD PCP - General Internal Medicine [address] [place] [address] documented as of this encounter
--- OUTSIDE RECORDS SUMMARY | 2022-04-05 15:45 | XMS_ITS | Encounter Summary ---
:1945 Author Organization [facility] Address [address], [place] [address] Care Team Providers Name Role Phone Coleman Dye MD Primary Care Provider Unavailable Encounter Details Date Type Department Care Team Description 10/11/2012 Orders Only HP Claims MD Jacquelyn Security Contact Bill [address] [place] [address] Mailstop [id number] [phone] (Wo rk) Social History Tobacco Use Types Packs/Day Years Used Date Smoking Tobacco: Never Assessed Sex Assigned at Date Recorded Not on file documented as of this encounter Plan of Treatment Not on filedocumented as of this encounter Visit Diagnoses Not on filedocumented in this encounter Care Teams Front End Mechanic Relationship Specialty Start Date End Date Coleman Dye MD PCP - General 09/27/1012/19 documented as of this encounter
--- OUTSIDE RECORDS SUMMARY | 2022-04-05 15:45 | XMS_ITS | Encounter Summary ---
:1945 Author Organization [facility] Address [address] [place] [address] Care Team Providers Name Role Phone Coleman Dye MD Primary Care Provider Unavailable Reason for Visit Reason Comments Refill Encounter Details Date Type Department Care Team Description 05/31/2015 Refill [facility] Vee Bowman MD Refill [address] [place], [place] [address] [place] [address] [phone] (Wo rk) Social History Tobacco Use Types Packs/Day Years Used Date Smoking Tobacco: Never Assessed Sex Assigned at Date Recorded Not on file documented as of this encounter Nursing Notes Kaley Giles LPN - 06/02/2015 10:47 AM CST Called [facility] pharmacy at [phone] and spoke to Estelle. Instructed Estelle that Dr. Barry requests these Rx requests be sent to her [place] office, because they are seen at [facility]. Estelle sent Rx request to [place]. RY ENVELOPE MACHINE OPERATOR Vee Prado RN - 06/01/2015 9:33 AM CST LV None FV None ALEN, RN denied medication refill per protocol. Patient is unknown to our clinic. RY ENVELOPE MACHINE OPERATOR documented in this encounter Plan of Treatment Not on filedocumented as of this encounter Visit Diagnoses Not on filedocumented in this encounter Care Teams Paver Operator Relationship Specialty Start Date End Date Coleman Dye MD PCP - General 09/27/1012/19 documented as of this encounter
--- OUTSIDE RECORDS SUMMARY | 2022-04-05 15:45 | XMS_ITS | Encounter Summary ---
:1945 Author Organization [facility]ly [facility] Address [address], [place] [address] Care Team Providers Name Role Phone Lina Meléndez MD Primary Care Provider Reason for Referral (Routine) - Incomplete Specialty Diagnoses / Procedures Referred By Contact Refer red To Contact Diagnoses Closed fracture of proximal end of left humerus, unspecified fracture morphology, initial encounter Edelmira Rodriguez MD Procedures Case Request OR - Orthopedic Surgery: OPEN REDUCTION INTERNAL FIXATION PROXIMAL HUMERUS FRACTURE 3931 [place], [place] [address] Referral ID Status Reason Start Date Expiration Date Visits V isits Requested Authorized [id number] Incomplete 07/10/2019 10/08/2020 1 1 HNUT MACHINE OPERATOR Encounter Details Date Type Department Care Team Description 07/10/2019 Notes/Orders Specialty Center 3931 Edelmira Rodriguez C losed fracture of [facility] MD proximal end of left 3931 [facility]. [facility] merus, unspecified S. S fracture morphology, [place], [place] in itial encounter [id number] (Primary Dx) [phone] (Wo rk) Social History Tobacco Use Types Packs/Day Years Used Date Smoking Tobacco: Never Smokeless Tobacco: Never Alcohol Use Standard Drinks/Week Comments Yes 0 (1 standard drink = 0.6 oz pure alcoho l) Sex Assigned at Date Recorded Not on file documented as of this encounter Plan of Treatment Not on filedocumented as of this encounter Visit Diagnoses Diagnosis Closed fracture of proximal end of left humerus, unspecified fracture morphology, initial encounter - Primary documented in this encounter Care Teams Account Receivable Associate Relationship Specialty Start Date End Date Lina Meléndez MD PCP - General Internal Medicine 12/20/18[address] [place] [address] documented as of this encounter
--- OUTSIDE RECORDS SUMMARY | 2022-04-05 15:45 | XMS_ITS | Encounter Summary ---
:1945 Author Organization [facility] Address [address] [place] [address] Care Team Providers Name Role Phone Lina Meléndez MD Primary Care Provider Reason for Visit Reason Comments Refill Encounter Details Date Type Department Care Team Description 07/12/2019 Refill Specialty Center 3931 Edelmira Lopez MD Refill Orthopedics [id number] [place] [address] [place] [address] [phone] Social History Tobacco Use Types Packs/Day Years Used Date Smoking Tobacco: Never Smokeless Tobacco: Never Alcohol Use Standard Drinks/Week Comments Yes 0 (1 standard drink = 0.6 oz pure alcoho l) Sex Assigned at Date Recorded Not on file documented as of this encounter Nursing Notes Camryn Nieves LPN - 07/12/2019 4:30 PM CST Pt notified rx sent to Pharmacy DATA DEVELOPER Camryn Nieves LPN - 07/12/2019 10:35 AM CST Action: Refill Request Next Step: Caller IS expecting a call back from care team DOS/Procedure: upcoming surgery Monday07/16/19ORIF L proximal humerus Last filled quantity and date: #30 07/10/19 Syeda Colón Quantity amount remaining: see below Pt says she will not have enough till surgery Monday. Pharmacy preference verified, medication pended. Requested Prescriptions No prescriptions requested or ordered in this encounter Future Appointments Date Time Provider Department Center 07/31/2019 1:00 PM Gabriela Lopez RN, ASSISTANT PROFESSOR OF DRAMA CAMP BOSS P3931 ORTHO PN 3931 08/28/2019 2:15 PM Edelmira Rodriguez MD P3931 ORTHO PN 3931 DATA DEVELOPER Hanh Hernandez - 07/12/2019 10:20 AM CST Has the patient recently had surgery or an injury? No Ortho Refill Questionnaire Has orthopaedics previously prescribed this medication? Yes Patient was notified that they will receive a follow-up call from care team and that the refill request will be reviewed within 24-48 hours. Requested Prescriptions Oxycodone 5-325 mg Last filled detail: 07/10/19 remainin Patient states currently takin 1/2 or 2 tabs q.4.h. Is the patient taking anything else for pain including over the counter medications? no Pharmacy (if applicable): [id number] - [place], [place] - [facility] [address] Comments: Since the surgery was originally scheduled for 07/12/19 she will run out of meds by Monday before surgery 07/16/19. DATA DEVELOPER documented in this encounter Plan of Treatment Not on filedocumented as of this encounter Visit Diagnoses Diagnosis Acute pain of left shoulder Other closed displaced fracture of proxi mal end of left humerus, initial encounter documented in this encounter Care Teams Grapple Operator Relationship Specialty Start Date End Date Lina Meléndez MD PCP - General Internal Medicine 12/20/18[address] [place] [address] documented as of this encounter
--- OUTSIDE RECORDS SUMMARY | 2022-04-05 15:45 | XMS_ITS | Encounter Summary ---
:1945 Author Organization [facility] Address [address] [place] [address] Care Team Providers Name Role Phone Coleman Dye MD Primary Care Provider Unavailable Encounter Details Date Type Department Care Team Description 10/25/2010 PN Conversion Only Specialty Center 3931 Navneet Rangel MD [facility] 3931 [facility] 3931 [facility] [address] [place] [id number] [phone] (Wo rk) Social History Tobacco Use Types Packs/Day Years Used Date Smoking Tobacco: Never Assessed Sex Assigned at Date Recorded Not on file documented as of this encounter Plan of Treatment Not on filedocumented as of this encounter Visit Diagnoses Not on filedocumented in this encounter Care Teams Gas And Oil Servicer Relationship Specialty Start Date End Date Coleman Dye MD PCP - General 09/27/1012/19 documented as of this encounter
--- OUTSIDE RECORDS SUMMARY | 2022-04-05 15:45 | XMS_ITS | Encounter Summary ---
:1945 Author Organization [facility] Address [address] [facility] [place] [address] Care Team Providers Name Role Phone Coleman Dye MD Primary Care Provider Unavailable Encounter Details Date Type Department Care Team Description 12/17/2009 PN Conversion Only Specialty Center 3931 Navneet Rangel MD [facility] 3931 [facility] [address] [place] [address] [place] [phone] (Wo rk) Social History Tobacco Use Types Packs/Day Years Used Date Smoking Tobacco: Never Assessed Sex Assigned at Date Recorded Not on file documented as of this encounter Progress Notes Navneet Rangel MD - 12/17/2009 12:01 AM CDT Progress Notes signed by Navneet Rangel MD at 12/18/09 0757 Author: Navneet Rangel MD Service: (none) Author Type: Physician Filed: 10/16/10 2320 Note Time: 12/17/09 0001 Status: Signed Catalyst Plant Supervisor: Navneet Rangel MD (Physician) NAME: MARYAM CORTEZ MR#: [id number] ACCT: [id number] VISIT: [id number] DICTATING CLINICIAN: Navneet Rangel MD CONFIRM #: [id number] LOC: 211 CLINIC PROGRESS NOTE DATE OF VISIT: 12/17/2009 SUBJECTIVE: Maryam is in today with complaints of left lateral hip pain. She said that she was on a bike ride recently, and this seemed to aggravate it quite a bit. She has trouble lying on that side at night. The pain tends to radiate somewhat toward the sacroiliac joint, but also down the lateral side of her leg. There has been no direct trauma. She has not taken any medication for it specifically. She said both of her knees are doing quite well. OBJECTIVE: Brief examination of her knees today shows well-healed incisions, excellent range of motion and good ligamentous stability. Hip range of motion shows 100 degrees of flexion, 60 degrees of external rotation, 20 degrees of internal rotation, and 40 degrees of abduction. She is markedly tender directly over the greater trochanter. She has good abductor strength. X-rays of her pelvis show normal hip anatomy with no evidence of degenerative changes. ASSESSMENT: 1. Good function post bilateral total knee arthroplasty. 2. Trochanteric bursitis. PLAN: I gave her the option of a cortisone injection, and she accepted. After sterile prep, the left trochanteric region was injected with a mixture of lidocaine and Depo-Medrol. She will follow up with me as needed. PRD:[id number] C: 12/17/09 17:57 CONFIRM #: [id number] documented in this encounter Plan of Treatment Not on filedocumented as of this encounter Procedures Procedure Name Priority Date/Time Associated Diagnosis Comme nts XR PELVIS W LT Routine 12/17/2009 1:54 PM Results for this LATERAL HIP CDT procedure are i n the results section. documented in this encounter Results XR Pelvis W Lt Lateral Hip (12/17/2009 1:54 PM CDT) Anatomical Region Laterality Modality Pelvis, Hip Other Specimen (Source) Anatomical Location Collection Method / Collectio n Time Received Time / Laterality Volume Impressions 12/17/2009 1:54 PM CDT : ??Pelvis and left hip within normal limits. Degenerative changes spine noted. Dictating DOM CURRY T RADIOLOGIST Narrative 12/17/2009 1:54 PM CDT COMPARISON: ??None. FINDINGS: ??Bony structures appear intac t. ??Joint spaces appear within normal limits. ??There is no dislocation or significant degenerative change. Degenerative changes lower lumbo sacral spine. Procedure Note Dom Guidry - 12/10/2015Formatting o f this note might be different from the original. COMPARISON: None. FINDINGS: Bony structures appear intact. Joint spaces appear within normal limits. There is no dislocation o r significant degenerative change. Degenerative changes lower lumbo sacral spine. IMPRESSION : Pelvis and left hip within normal limi ts. Degenerative changes spine noted. Dictating DOM CURRY RADIOLOGIST Navneet Rangel MD RAD GD documented in this encounter Visit Diagnoses Not on filedocumented in this encounter Care Teams Parts Control Clerk Relationship Specialty Start Date End Date Coleman Dye MD PCP - General 09/27/1012/19 documented as of this encounter
--- OUTSIDE RECORDS SUMMARY | 2022-04-05 15:45 | XMS_ITS | Encounter Summary ---
:1945 Author Organization [facility] Address [address] [place] [address] Care Team Providers Name Role Phone Lina Meléndez MD Primary Care Provider Reason for Visit Reason Comments Consult, New Patient Encounter Details Date Type Department Care Team Description 12/25/2018 Initial Consult Kacy Avila, Psoriasis ( Primary Dx); Rheumatology MD Gwen Osteoarthritis of multiple joints, unspe cified osteoarthritis type [address] [place] [address] [phone] Social History Tobacco Use Types Packs/Day Years Used Date Smoking Tobacco: Never Smokeless Tobacco: Never Alcohol Use Standard Drinks/Week Comments Yes 0 (1 standard drink = 0.6 oz pure alcoho l) Sex Assigned at Date Recorded Not on file documented as of this encounter Last Filed Vital Signs Vital Sign Reading Time Taken Comments Blood Pressure 151/63 12/25/2018 8:25 AM CDT Pulse 69 12/25/2018 8:25 AM CDT Temperature - - Respiratory Rate - - Oxygen Saturation - - Inhaled Oxygen Concentration - - Weight 70.8 kg (156 lb) 12/25/2018 8:25 AM CDT Height 166 cm (5' 5.35) 12/25/2018 8:25 AM CDT Body Mass Index 25.68 12/25/2018 8:25 AM CDT documented in this encounter Progress Notes Gwen Avila MD - 12/25/2018 8:30 AM CDT Subjective: I was requested by Dr. Kirit Cee to evaluate the patient for psoriasis, ?psoriatic arthritis. History of present illness: A pleasant 73-y-o female who came in here for an evaluation ofpossible psoriatic arthritis. Over the past several years, she has had intermittent skin rashes over the left posterior lateral leg, fingers, scalp, as well as nail change suggestive of onycholysis of the right third finger. She has had a few biopsies of the lesions over the years and the results always suggest psoriasiform dermatitis. She was put on methotrexate at one time for approximately a year. She currently only uses topical treatment with steroid and this has seemed to be adequate currently. She has never been exposed todifferent other systemic immunosuppressant or biologic therapy for psoriasis. She has had arthritis over the years. She was suggested by her haircutter to have an evaluation to rule out psoriatic arthritis. She has had bilateral knee arthroplasty so (in 2003 and 2006), lower back surgeries for decompression and fusion over L3-S1, and cervical surgical fusion (unrecalled level). She was told by her surgeonthat this was related to degenerative arthritis/osteoarthritis. She also has clinically apparent oste oarthritis over her finger knuckles. She has never noticed a visibly red, warm and swollen joint. She has never had a joint arthrocentesis to document inflammatory fluid. I showed her several pictures of peripheral joints affected by psoriatic arthritis and she has not noticed such a finding even before several joints surgeries. Her cervical and lower back symptoms are mechanical in nature. She has some radiculopathy symptoms over her legs. They have improved but not completely after the lower back surgeries. She reported no prior history or ocular symptoms to suggest iritis/uveitis, unexplained abdominal pain/mucus/bloody diarrhea to suggest inflammatory bowel disease. She suspects that her father might have had psoriasis although this was never documented by his primary care provider or a haircutter. Arthritis requiring joint surgeries runs in the family members.However, there has been no officially diagnosed rheumatoid arthritis or an autoimmune inflammatory arthritis. There is no obvious family history of psoriasis, psoriatic arthritis, gouty arthritis, lupus or lupus related connective tissue diseases, inflammatory bowel disease, iritis/uveitis, spondylitis. A complete review of the systems is otherwise unremarkable except for occasional shortness of breath, leg paresthesia, sensitivity to cold. Past Medical History: Osteoarthritis. Type 2 diabetes. Asthma. Hyperlipidemia. Benign neoplasm of colon. Rosacea. Gastroesophageal reflux. History of psoriasis on methotrexate in the past. Chronic low back pain. Chronic insomnia. Hypertension. Asthma. Lichen sclerosis et atrophicus of the vulva. History of thalamic stroke. Depression. Hemorrhoid. Pelvic floor dysfunction. Obstructive sleep apnea. Basal cell carcinoma. Status post D compressive surgery lumbar laminectomy L5-S1, L3-L4 and transforaminal fusion at L3-L4. Carpal tunnel syndrome releasing surgery in 2007. History of hysterectomy, right knee arthroplasty 1997, left knee arthroplasty 2003. 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 She neither smokes nor drinks. with an adult son. Current medications: Please see the most updated medication lists in the EMR. These are reviewed. Adverse drug reactions: Codeine caused nausea. Sulfa antibiotics caused GI intolerance. Camtaloupe. Adhesive tapes. Gluten meals. Physical Examination: BP (!) 151/63 (BP Location: Left Arm, BP Cuff Size: Adult Regular) Pulse 69 Ht 5' 5.35 (1.66 m) Wt 156 lb (70.8 kg) BMI 25.68 kg/m?? General appearance: A young appearing elderly female who was not in acute physical distress. Skin: 1 patch of erythema over the right sided occipital area suggestive of possible psoriasis. A similar small patch over the biopsy side of left posterolateral leg. Right third finger nail onycholysis is suggestive of psoriatic nail. No tophus, nodules, open-wound ulcers, Raynaud changes, telangiectasia, sclerodermatous and dermatomyositis skin changes, or anything suggesting vasculitis, erythema nodosum. Normal nailfold capillaries. HEENT: No psoriasis on the scalp. No conjunctivitis, scleritis or active uveitis or synaechia. Normal extra ocular movements. No sinus tenderness. No malar rash, discoid rash, oral or nasal mucosal ulcers. No nasal septal perforation. No thyromegaly. Respiratory: Normal respiratory effort. Lungs are clear with good breath sounds. Heart: RR without audible murmurs, rubs, or gallops. Musculoskeletal exams: All 4 extremities were examined. No significant synovitis/inflammatory arthritis/dactylitis or effusion in any joints. Osteoarthritis changes over finger DI P, Pip and first CMC joints. The most prominent Marc???s node over right third Pip joint. Status post bilateral knee arthroplasty is a left foot hammertoes surgical correction. Negative straight leg raising test. Normalgait, normal muscle power and tone. Laboratory exams: No recent laboratory evaluation within [employer] system. Outside records: On 10/10/2018, glucose 130, serum creatinine 0.6, serum albumin 4.6. Total bilirubin 1.6 (0-1.5), normal AST/ALT/alkaline phosphatase. Hemoglobin A1C 6.9. On 10/23/2018, left occipital scalp biopsy demonstrated excoriation with negative for malignancy. Sections of skin demonstrate focal excoriation of the epidermis with associated reactive squamous epithelial change in mixed acute and chronic inflammation. The presence of green ink is confirmed on tissue sections. Assessment and plans: 1. Psoriasis, no clinical psoriatic arthritis. 2. Osteoarthritis multiple joints Pain is rated as 7. RAPID 3 score is 10. Despite a history of psoriasis, the patient has no clinical inflammatory arthritis/dactylitis or enthesitis over her peripheral joints. Her joint symptoms are mechanical and they have never been accompanied by the presence of synovitis/joint effusion to suggest inflammatory arthritis. This is unlikelyto be inflammatory arthritis of peripheral joints related to psoriatic arthritis or inflammatory back pain secondary to psoriatic spondylitis. The patient also reported no symptoms or history of iritis/uveitis or inflammatory bowel disease, which could be an extra cutaneous manifestations of psoriasis. I discussed with patient about my clinical impression as above. The patient has a 10-30% life-time chance to develop psoriatic arthritis. We discussed about symptoms and physical findings which could be suggestive of psoriatic arthritis. I printed out several pictures of inflamed joints affected by psoriatic arthritis for patient and information related to psoriatic arthritis for her to review. The patient will let me know when that is ever present in the future. I also reminded the patient about symptoms and physical findings that might be suggestive of iritis and Crohn's disease. Several questions answered. Follow up in rheumatology again whenever she has a swollen joint or at any time if there is an additional question. Total time 60 minutes, 40 minutes counseling. CC: Kirit Cee M.D. [address] [place] [address] documented in this encounter Plan of Treatment Not on filedocumented as of this encounter Visit Diagnoses Diagnosis Psoriasis - Primary Other psoriasis Osteoarthritis of multiple joints, unspe cified osteoarthritis type documented in this encounter Care Teams Spot Welder Body Assembly Relationship Specialty Start Date End Date Lina Meléndez MD PCP - General Internal Medicine 12/20/[address] [place] [address] documented as of this encounter
--- OUTSIDE RECORDS SUMMARY | 2022-04-05 15:45 | XMS_ITS | Encounter Summary ---
:1945 [facility] Address [address] [address] Care Team Providers Name Role Phone Coleman Dye MD Primary Care Provider Unavailable Encounter Details Date Type Department Care Team Description 12/17/2009 PN Conversion Only [facility] [address] [place] [address] Social History Tobacco Use Types Packs/Day Years Used Date Smoking Tobacco: Never Assessed Sex Assigned at Date Recorded Not on file documented as of this encounter Plan of Treatment Not on filedocumented as of this encounter Visit Diagnoses Not on filedocumented in this encounter Care Teams Toolmaker Grade Three Relationship Specialty Start Date End Date Coleman Dye MD PCP - General 09/27/1012/19 documented as of this encounter
--- OUTSIDE RECORDS SUMMARY | 2022-04-05 15:45 | XMS_ITS | Encounter Summary ---
:1945 Author Organization [facility] Address [address] [place] [address] Care Team Providers Name Role Phone Lina Meléndez MD Primary Care Provider Encounter Details Date Type Department Care Team Description 07/16/2019 Orders Only Initial [facility] [place], [place] [address] Interface provider [phone] [place] [address] Social History Tobacco Use Types Packs/Day Years Used Date Smoking Tobacco: Never Smokeless Tobacco: Never Alcohol Use Standard Drinks/Week Comments Yes 0 (1 standard drink = 0.6 oz pure alcoho l) Sex Assigned at Date Recorded Not on file documented as of this encounter Plan of Treatment Not on filedocumented as of this encounter Procedures Procedure Name Priority Date/Time Associated Diagnosis Comme nts EKG 07/16/2019 Results for thi s procedure are in the resu lts section. documented in this encounter Results EKG (07/16/2019) Narrative This result has an attachment that is no t available. Interface Provider EKG documented in this encounter Visit Diagnoses Not on filedocumented in this encounter Care Teams Dairy Processing Supervisor Relationship Specialty Start Date End Date Lina Meléndez MD PCP - General Internal Medicine [address] [place] [address] documented as of this encounter
--- OUTSIDE RECORDS SUMMARY | 2022-04-05 15:45 | XMS_ITS | Encounter Summary ---
:1945 Author Organization [facility] Address [address], [place] [address] Care Team Providers Name Role Phone Coleman Dye MD Primary Care Provider Unavailable Encounter Details Date Type Department Care Team Description 08/29/2013 Orders Only HP Claims MD Jacquelyn Security Contact Bill [address] [place] [address] Mailstop [id number] [phone] (Wo rk) Social History Tobacco Use Types Packs/Day Years Used Date Smoking Tobacco: Never Assessed Sex Assigned at Date Recorded Not on file documented as of this encounter Plan of Treatment Not on filedocumented as of this encounter Visit Diagnoses Not on filedocumented in this encounter Care Teams Chrome Cleaner Relationship Specialty Start Date End Date Coleman Dye MD PCP - General 09/27/1012/19 documented as of this encounter
--- OUTSIDE RECORDS SUMMARY | 2022-04-05 15:46 | XMS_ITS | Encounter Summary ---
:1945 Author Organization [facility] Address [address], [place] [address] Care Team Providers Name Role Phone Coleman Dye MD Primary Care Provider Unavailable Reason for Visit Reason Comments Other Encounter Details Date Type Department Care Team Description 05/08/2007 Telephone Specialty Center [address] Brook Rice LPN Other Orthopedics [address] [place] [address] Social History Tobacco Use Types Packs/Day Years Used Date Smoking Tobacco: Never Assessed Sex Assigned at Date Recorded Not on file documented as of this encounter Progress Notes Carolina Joyce RN - 05/08/2007 12:16 PM CST Phone Note filed by Carolina Joyce RN at 10/13/10819 Author: Carolina Joyce RN Service: (none) Author Type: Registered Nurse Filed: 10/13/10819 Note Time: 05/08/071215 Status: Signed Mailing Machine Operator: Carolina Joyce RN (Registered Nurse) Patient is going to PT at [facility] in [place], [place]. She requests referral be faxed on order form that is valid outside of [facility]. Please fax to [phone]. Att'n: Beau Houser. Patient's home phone [phone]. Created on 08May2007 12:16pm by CAROLINA JOYCE On 09May2007 9:08am IMANI ARREOLA wrote: Done Acknowledged by IMANI ARREOLA on 9:08am ING PAINTER documented in this encounter Plan of Treatment Not on filedocumented as of this encounter Visit Diagnoses Not on filedocumented in this encounter Care Teams Senior Office Assistant Relationship Specialty Start Date End Date Coleman Dye MD PCP - General 09/27/1012/19 documented as of this encounter
--- OUTSIDE RECORDS SUMMARY | 2022-04-05 15:46 | XMS_ITS | Encounter Summary ---
:1945 Author Organization [facility] Address [address] [address] Care Team Providers Name Role Phone Unassigned, Provider Primary Care Provider Unavailable Encounter Details Date Type Department Care Team Description 02/02/2004 - Hospital Encounter Nondenominational Navneet Campos MD [address] [facility] [address] [place] [address] [phone] 02/06/2004 [id number] Navneet Campos MD [address] [facility] [address] [place] [address] [phone] [place] [id number] [facility] [place] [address] Social History Tobacco Use Types Packs/Day Years Used Date Smoking Tobacco: Never Assessed Sex Assigned at Date Recorded Not on file documented as of this encounter Discharge Summaries Navneet Campos MD - 02/05/2004 12:01 AM CDT Discharge Summaries signed by Navneet Campos MD at 02/06/04 0752 Author: Navneet Campos MD Service: (none) Author Type: Physician Filed: 10/14/10 3522 Note Time: 02/05/04 1645 Status: Signed Nut Blanker Operator: Navneet Campos MD (Physician) NAME: MARYAM CORTEZ MR: [id number] ACCT: [id number] AUTHENTICATING CLINICIAN: NAVNEET CAMPOS MD JOB: [id number] HOSPITAL DISCHARGE SUMMARY DATE OF ADMISSION: 02/02/04. : 1945. DATE OF DISCHARGE: 02/06/04. ADMITTING DIAGNOSIS: Degenerative joint disease, right knee. SECONDARY DIAGNOSES: 1. Type 2 diabetes mellitus. 2. Depression. 3. Asthma. 4. Esophageal reflux. DISCHARGE DIAGNOSIS: Degenerative joint disease, right knee. SECONDARY DIAGNOSES: 1. Type 2 diabetes mellitus. 2. Depression. 3. Asthma. 4. Esophageal reflux. 5. Transient chest pain. Procedure performed this admission is right total knee arthroplasty. HISTORY: Patient is a 58-year-old female with progressive right knee pain and stiffness. X-rays have demonstrated advanced degenerative changes. She has failed to respond to conservative care. HOSPITAL COURSE: On the date of admission, the patient underwent a cemented total arthroplasty. This was done under subarachnoid block. She had it during the time of 82 minutes and minimal blood loss. She showed fairly extensive degenerative changes particularly of the medial compartment, but also of the patellofemoral compartment and to some extent the lateral compartment. Postoperative x-ray showed excellent overall alignment and fit. She was started on Lovenox for DVT prophylaxis, Dilaudid patient-controlled analgesia for pain management, and a CPM machine. She had an episode of chest pain in the evening on the date of surgery. She underwent evaluation by hospital service and had a negative workup for any type of myocardial ischemic event. The morning of the first postoperative day, she had a very brief fainting episode while in the bathroom. She did not fall. She was immediately returned to bed and had a very rapid recovery from this. She had reinfusion from blood her Constavac drain on the first postoperative day. Postoperative hemoglobin the first postoperative day was 9.8, and a followup hemoglobin was 9.5. She was started on iron supplementation. Dressing was changed on the 2nd postoperative day and her catheter was removed as was her drain. Her wound appeared benign throughout her hospitalization with some slight serosanguineous drainage from the drain site, but the incision itself appearing quite benign. Several recommendation were made for her home medications by the hospital service. She will consult with her primary care physician. She had difficulty with pain control on Percocet and was changed to Vicodin, this gave more satisfactory control. CONDITION ON DISCHARGE/INSTRUCTIONS: At the time of this dictation, it is anticipated that she will be discharged to home on 02/06/04. DISCHARGE MEDICATIONS INCLUDE: 1. Vicodin 1-2 p.o. q.4-6h. p.r.n. pain. 2. Vistaril 25 mg 1-2 p.o. q.4-6h. p.r.n. pain. 3. Ferrous sulfate 325 mg p.o. daily for 30 days. 4. Lovenox 30 mg subcutaneous b.i.d. for 7 days. She will have home therapy arranged for her. She will follow up in my clinic in days for staple removal. She is to have routine total knee arthroplasty rehab protocol, she is to wear her knee-high CARLA stockings during the day and change her dressing daily. She may shower but may not bathe. PRD:[id number] C: 02/05/04 17:33 DOCUMENT: [id number] documented in this encounter Procedure Notes Navneet Campos MD - 02/02/2004 12:01 AM CDT OR Surgeon signed by Navneet Campos MD at 02/05/04 1613 Author: Navneet Campos MD Service: (none) Author Type: Physician Filed: 10/14/10 4728 Note Time: 02/02/04 1402 Status: Signed Nut Blanker Operator: Navneet Campos MD (Physician) NAME: MARYAM CORTEZ MR: [id number] ACCT: [id number] AUTHENTICATING CLINICIAN: NAVNEET CAMPOS MD JOB: [id number] OPERATIVE REPORT DATE OF OPERATION: 02/02/2004 INDICATIONS FOR PROCEDURE: : 1945 Please see patient's chart. PREOPERATIVE DIAGNOSIS: Degenerative joint disease, right knee. POSTOPERATIVE DIAGNOSIS: Degenerative joint disease, right knee. PROCEDURE PERFORMED: Right total knee arthroplasty with [employer] cemented components, #7 femur, #7 tibia, #7 patella, 8 mm spacer. SURGEON: Navneet Campos MD FINANCE ANALYST: MARTIR Gallo ANESTHESIA: Subarachnoid block. TOURNIQUET TIME: 82 minutes. BLOOD LOSS: Minimal. FLUIDS: 2,000 cc crystalloid. SPONGE AND NEEDLE COUNT: Correct. DRAINS: Medium ConstaVac and Sims catheter. SPONGE AND NEEDLE COUNT: Correct. COMPLICATIONS: None apparent. FINDINGS: Severe end-stage degenerative arthritis involving the medial compartment of the knee with moderately advanced patellofemoral and lateral compartment disease with an unusual bluish-black tinge to the articular cartilage along the margins of the femur and the tibia. DESCRIPTION OF OPERATION: After written informed consent was obtained, the patient was brought to the operating room. A subarachnoid block was successfully placed. She was then positioned supine. She was administered preoperative antibiotics. A Sims catheter was placed. Knee high CARLA stocking was placed on the left along with a PlexiPulse boot. A bump was placed under the right hip. The right leg was then prepped and draped in the usual sterile fashion. The leg was exsanguinated with a Aden bandage and the tourniquet inflated to 300 mmHg. A midline incision was made beginning several centimeters above the superior pole of the patella and extending to a tibial tubercle for a total incision length of 5-1/2 inches. This was carried down through skin and into subcutaneous tissue. Bleeding vessels were cauterized. A medial skin flap created. A medial parapatellar arthrotomy was performed. A very large effusion was encountered. Osteophytes were removed from the distal femur, the proximal tibia, and the patella with a rongeur. A synovectomy was performed. The tibial attachment to the anterior cruciate ligament was sharply excised. A drill hole was made just anterior to the posterior cruciate ligament attachment on the femur. The intramedullary-based cutting jig was then used to make the femoral cuts. The femur was sized to a #7 and after all cuts were made, the #7 trial fit nicely. This was then removed. The tibia was retracted anteriorly. The remnants of the medial and lateral meniscal cartilages were removed and a soft tissue release was done on the medial side of the knee. An intramedullary rhianna was then placed down the canal after a drill hole was made. This was then used for the basis of the cutting guide and 4 mm were taken off the most efficient part of the medial tibial plateau. The cut surface of the tibia then measured to a #7. The femoral trial was placed back on and a #7 tray with an 8 mm spacer was placed. Excellent soft tissue balance was noted in flexion and extension. Overall alignment was excellent. The tibial tray was then marked for rotational alignment. The trials were removed and then the tibial tray placed back on the cut surface of the tibia and the keel cuts made utilizing the towel. The patellar measured 20 mm and a one cm wafer was then removed with an oscillating saw. The patella size to a #7 and the three drill holes were made. A batch and a half of cement was mixed while the cut surfaces were then cleansed with a pulse lavage. We then cemented the tibia into place taking great care to remove excess cement. An 8 mm trial spacer was placed and the femur was cemented into place. However, at this time, the cement was somewhat hard and I elected not to place the patella. The knee was brought into the extension and the two components were allowed to harden. Once these hardened, we placed the final 8 mm spacer. Another half-batch of cement was mixed and the patella was cemented into place. Once this cement was hardened, the patella stayed nicely in the trochlea with a no-touch technique and I did not perform a lateral retinacular release. The tourniquet was deflated. A medium ConstaVac was placed. The arthrotomy was repaired with #1 Vicryl. The subcutaneous tissue closed with 2-0 Vicryl and the skin closed with skin nahomy. The wound was then dressed with Xeroform gauze, 4 x 4s, ABD pad, cast padding, and a toe to groin Gurinder wrap. An Easy Wrap ice pack was placed. A knee immobilizer was then placed and the patient was transported to the postanesthesia recovery area in satisfactory condition. 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 BEDSIDE GLUCOSE Routine 02/05/2004 9:15 PM Result s for this MONITOR POCT CDT procedure are i n the results section. BEDSIDE GLUCOSE Routine 02/05/2004 5:09 PM Result s for this MONITOR POCT CDT procedure are i n the results section. BEDSIDE GLUCOSE Routine 02/05/2004 11:37 Results for this MONITOR POCT AM CDT procedure are i n the results section. BEDSIDE GLUCOSE Routine 02/05/2004 7:10 AM Result s for this MONITOR POCT CDT procedure are i n the results section. BEDSIDE GLUCOSE Routine 02/04/2004 9:42 PM Result s for this MONITOR POCT CDT procedure are i n the results section. BEDSIDE GLUCOSE Routine 02/04/2004 4:31 PM Result s for this MONITOR POCT CDT procedure are i n the results section. BEDSIDE GLUCOSE Routine 02/04/2004 11:56 Results for this MONITOR POCT AM CDT procedure are i n the results section. ALT (SGPT) Routine 02/04/2004 11:45 Results for this AM CDT procedure are i n the results section. BEDSIDE GLUCOSE Routine 02/04/2004 7:32 AM Result s for this MONITOR POCT CDT procedure are i n the results section. ELECTROLYTES (NA, K, Routine 02/04/2004 7:15 AM R esults for this CL, BICARB) CDT procedure are i n the results section. CREATININE / GFR Routine 02/04/2004 7:15 AM Resul ts for this CDT procedure are i n the results section. HEMOGLOBIN, BLOOD Routine 02/04/2004 7:15 AM Resu lts for this CDT procedure are i n the results section. ECG 12 LEAD INPATIENT Routine 02/04/2004 6:45 AM Results for this CDT procedure are i n the results section. BEDSIDE GLUCOSE Routine 02/03/2004 9:48 PM Result s for this MONITOR POCT CDT procedure are i n the results section. BEDSIDE GLUCOSE Routine 02/03/2004 5:17 PM Result s for this MONITOR POCT CDT procedure are i n the results section. BEDSIDE GLUCOSE Routine 02/03/2004 4:50 PM Result s for this MONITOR POCT CDT procedure are i n the results section. BEDSIDE GLUCOSE Routine 02/03/2004 11:36 Results for this MONITOR POCT AM CDT procedure are i n the results section. BEDSIDE GLUCOSE Routine 02/03/2004 8:34 AM Result s for this MONITOR POCT CDT procedure are i n the results section. HEMOGLOBIN, BLOOD Routine 02/03/2004 7:25 AM Resu lts for this CDT procedure are i n the results section. BEDSIDE GLUCOSE Routine 02/03/2004 6:26 AM Result s for this MONITOR POCT CDT procedure are i n the results section. MYOGLOBULIN Routine 02/03/2004 2:46 AM Results f or this CDT procedure are i n the results section. TROPONIN I Routine 02/03/2004 2:46 AM Results f or this CDT procedure are i n the results section. MYOGLOBULIN Routine 02/02/2004 10:50 Results for this PM CDT procedure are i n the results section. TROPONIN I Routine 02/02/2004 10:50 Results for this PM CDT procedure are i n the results section. BEDSIDE GLUCOSE Routine 02/02/2004 10:04 Results for this MONITOR POCT PM CDT procedure are i n the results section. ECG 12 LEAD INPATIENT STAT 02/02/2004 9:33 PM Results for this CDT procedure are i n the results section. MYOGLOBULIN Routine 02/02/2004 9:15 PM Results f or this CDT procedure are i n the results section. CARDIAC MARKER Routine 02/02/2004 9:15 PM Results for this PROFILE CDT procedure are i n the results section. TROPONIN I Routine 02/02/2004 9:15 PM Results f or this CDT procedure are i n the results section. CK, TOTAL Routine 02/02/2004 9:15 PM Results f or this CDT procedure are i n the results section. BEDSIDE GLUCOSE Routine 02/02/2004 5:10 PM Result s for this MONITOR POCT CDT procedure are i n the results section. SURGICAL PATH, PARK Routine 02/02/2004 3:40 PM Re sults for this NICOLLET CDT procedure are i n the results section. BEDSIDE GLUCOSE Routine 02/02/2004 2:38 PM Result s for this MONITOR POCT CDT procedure are i n the results section. XR KNEE RT AP AND Routine 02/02/2004 2:25 PM Resu lts for this LATERAL CDT procedure are i n the results section. BEDSIDE GLUCOSE Routine 02/02/2004 10:37 Results for this MONITOR POCT AM CDT procedure are i n the results section. documented in this encounter Results Bedside Glucose Monitor (02/06/2004 6:18 AM CDT) athologist Signature Bedside Blood 173 mg/dL HP CONVERSION Glucose Test Blood Glucose * No normal HP CONVERSION Screen, range Comment 1 Blood Glucose * No normal HP CONVERSION Screen, range Comment 2 Blood Glucose * No normal HP CONVERSION Screen, range Comment 3 Specimen (Source) Anatomical Collection Method Collection Time Re ceived Time Location / / Volume Laterality 02/06/2004 6:18 AM CDT Navneet Campos MD LAB_1 Performing Organization Address City/State/ZIP Code Phon e Number HP CONVERSION Bedside Glucose Monitor (02/05/2004 9:15 PM CDT) P athologist Signature Bedside Blood 176 mg/dL HP CONVERSION Glucose Test Blood Glucose * No normal HP CONVERSION Screen, range Comment 1 Blood Glucose * No normal HP CONVERSION Screen, range Comment 2 Blood Glucose * No normal HP CONVERSION Screen, range Comment 3 Specimen (Source) Anatomical Collection Method Collection Time Re ceived Time Location / / Volume Laterality 02/05/2004 9:15 PM CDT Navneet Campos MD LAB_1 Performing Organization Address City/State/ZIP Code Phon e Number HP CONVERSION Bedside Glucose Monitor (02/05/2004 5:09 PM CDT) athologist Signature Bedside Blood 180 mg/dL HP CONVERSION Glucose Test Blood Glucose * No normal HP CONVERSION Screen, range Comment 1 Blood Glucose * No normal HP CONVERSION Screen, range Comment 2 Blood Glucose * No normal HP CONVERSION Screen, range Comment 3 Specimen (Source) Anatomical Collection Method Collection Time Re ceived Time Location / / Volume Laterality 02/05/2004 5:09 PM CDT Navneet Campos MD LAB_1 Performing Organization Address City/State/ZIP Code Phon e Number HP CONVERSION Bedside Glucose Monitor (02/05/2004 11:37 AM CDT) P athologist Signature Bedside Blood 163 mg/dL HP CONVERSION Glucose Test Blood Glucose * No normal HP CONVERSION Screen, range Comment 1 Blood Glucose * No normal HP CONVERSION Screen, range Comment 2 Blood Glucose * No normal HP CONVERSION Screen, range Comment 3 Specimen (Source) Anatomical Collection Method Collection Time Re ceived Time Location / / Volume Laterality 02/05/2004 11:37 AM CDT Navneet Campos MD LAB_1 Performing Organization Address [facility] Phon e Number HP CONVERSION Bedside Glucose Monitor (02/05/2004 7:10 AM CDT) athologist Signature Bedside Blood 153 mg/dL HP CONVERSION Glucose Test Blood Glucose * No normal HP CONVERSION Screen, range Comment 1 Blood Glucose * No normal HP CONVERSION Screen, range Comment 2 Blood Glucose * No normal HP CONVERSION Screen, range Comment 3 Specimen (Source) Anatomical Collection Method Collection Time Re ceived Time Location / / Volume Laterality 02/05/2004 7:10 AM CDT Navneet Campos MD LAB_1 Performing Organization Address [facility] Phon e Number HP CONVERSION Bedside Glucose Monitor (02/04/2004 9:42 PM CDT) P athologist Signature Bedside Blood 118 mg/dL HP CONVERSION Glucose Test Blood Glucose * No normal HP CONVERSION Screen, range Comment 1 Blood Glucose * No normal HP CONVERSION Screen, range Comment 2 Blood Glucose * No normal HP CONVERSION Screen, range Comment 3 Specimen (Source) Anatomical Collection Method Collection Time Re ceived Time Location / / Volume Laterality 02/04/2004 9:42 PM CDT Navneet Campos MD LAB_1 Performing Organization Address City/[facility] Phon e Number HP CONVERSION Bedside Glucose Monitor (02/04/2004 4:31 PM CDT) P athologist Signature Bedside Blood 177 mg/dL HP CONVERSION Glucose Test Blood Glucose * No normal HP CONVERSION Screen, range Comment 1 Blood Glucose * No normal HP CONVERSION Screen, range Comment 2 Blood Glucose * No normal HP CONVERSION Screen, range Comment 3 Specimen (Source) Anatomical Collection Method Collection Time Re ceived Time Location / / Volume Laterality 02/04/2004 4:31 PM CDT Navneet Campos MD LAB_1 Performing Organization Address City/State/ZIP Code Phon e Number HP CONVERSION Bedside Glucose Monitor (02/04/2004 11:56 AM CDT) athologist Signature Bedside Blood 188 mg/dL HP CONVERSION Glucose Test Blood Glucose * No normal HP CONVERSION Screen, range Comment 1 Blood Glucose * No normal HP CONVERSION Screen, range Comment 2 Blood Glucose * No normal HP CONVERSION Screen, range Comment 3 Specimen (Source) Anatomical Collection Method Collection Time Re ceived Time Location / / Volume Laterality 02/04/2004 11:56 AM CDT Navneet Campos MD LAB_1 Performing Organization Address [facility] Code Phon e Number HP CONVERSION ALT (SGPT) (02/04/2004 11:45 AM CDT) [facility] Method Time Signature Alanine 31 0 - 65 HP CONVERSION Aminotransferase U/L Specimen (Source) Anatomical Collection Method Collection Time Re ceived Time Location / / Volume Laterality 02/04/2004 11:45 AM CDT Navneet Campos MD LAB_1 Performing Organization Address City/[facility]/ZIP Code Phon e Number HP CONVERSION Bedside Glucose Monitor (02/04/2004 7:32 AM CDT) athologist Signature Bedside Blood 246 mg/dL HP CONVERSION Glucose Test Blood Glucose * No normal HP CONVERSION Screen, range Comment 1 Blood Glucose * No normal HP CONVERSION Screen, range Comment 2 Blood Glucose * No normal HP CONVERSION Screen, range Comment 3 Specimen (Source) Anatomical Collection Method Collection Time Re ceived Time Location / / Volume Laterality 02/04/2004 7:32 AM CDT Navneet Campos MD LAB_1 Performing Organization Address City/State/ZIP Code Phon e Number HP CONVERSION (ABNORMAL) Hemoglobin, Blood (02/04/2004 7:15 AM CDT) athologist Signature Hemoglobin 9.5 (L) 11.8 - 15.5 HP CONVERSION gm/dL Specimen (Source) Anatomical Collection Method Collection Time Re ceived Time Location / / Volume Laterality 02/04/2004 7:15 AM CDT Navneet Campos MD LAB_1 Performing Organization Address City/[facility] Code Phon e Number HP CONVERSION Electrolytes (NA, K, CL, Bicarb) (02/04/2004 7:15 AM CDT) P athologist Signature Sodium 137 137 - 147 HP CONVERSION meq/L Potassium 4.6 3.5 - 5.2 HP CONVERSION meq/L Chloride 102 98 - 110 HP CONVERSION meq/L Bicarbonate 27 23 - 33 HP CONVERSION mmol/L Specimen (Source) Anatomical Collection Method Collection Time Re ceived Time Location / / Volume Laterality 02/04/2004 7:15 AM CDT Keyana Emery MD LAB_1 Performing Organization Address [facility] Phon e Number HP CONVERSION Creatinine / GFR (02/04/2004 7:15 AM CDT) athologist Signature Creatinine 0.7 0.5 - 1.5 HP CONVERSION Serum mg/dL Specimen (Source) Anatomical Collection Method Collection Time Re ceived Time Location / / Volume Laterality 02/04/2004 7:15 AM CDT Keyana Emery MD LAB_1 Performing Organization Address City/[facility] Phon e Number HP CONVERSION ECG 12 Lead Inpatient (02/04/2004 6:45 AM CDT) Specimen (Source) Anatomical Collection Method Collection Time Re ceived Time Location / / Volume Laterality 02/04/2004 6:45 AM CDT Narrative HP CONVERSION - 02/04/2004 6:45 AM CDT Normal sinus rhythm Cannot rule out Anterior infarct (cited on or before) 02-FEB-2004) Abnormal ECG When compared with ECG of 02-FEB-2004 2 1:33, No significant change was found Keyana Emery MD PN ECG ORDERABLES Performing Organization Address [facility] Phon e Number HP CONVERSION Bedside Glucose Monitor (02/03/2004 9:48 PM CDT) athologist Signature Bedside Blood 218 mg/dL HP CONVERSION Glucose Test Blood Glucose * No normal HP CONVERSION Screen, range Comment 1 Blood Glucose * No normal HP CONVERSION Screen, range Comment 2 Blood Glucose * No normal HP CONVERSION Screen, range Comment 3 Specimen (Source) Anatomical Collection Method Collection Time Re ceived Time Location / / Volume Laterality 02/03/2004 9:48 PM CDT Navneet Campos MD LAB_1 Performing Organization Address City/State/ZIP Code Phon e Number HP CONVERSION Bedside Glucose Monitor (02/03/2004 5:17 PM CDT) P athologist Signature Bedside Blood 108 mg/dL HP CONVERSION Glucose Test Blood Glucose * No normal HP CONVERSION Screen, range Comment 1 Blood Glucose * No normal HP CONVERSION Screen, range Comment 2 Blood Glucose * No normal HP CONVERSION Screen, range Comment 3 Specimen (Source) Anatomical Collection Method Collection Time Re ceived Time Location / / Volume Laterality 02/03/2004 5:17 PM CDT Navneet Campos MD LAB_1 Performing Organization Address City/State/ZIP Code Phon e Number HP CONVERSION Bedside Glucose Monitor (02/03/2004 4:50 PM CDT) athologist Signature Bedside Blood 43 mg/dL HP CONVERSION Glucose Test Blood Glucose * No normal HP CONVERSION Screen, range Comment 1 Blood Glucose * No normal HP CONVERSION Screen, range Comment 2 Blood Glucose * No normal HP CONVERSION Screen, range Comment 3 Specimen (Source) Anatomical Collection Method Collection Time Re ceived Time Location / / Volume Laterality 02/03/2004 4:50 PM CDT Navneet Campos MD LAB_1 Performing Organization Address City/State/ZIP Code Phon e Number HP CONVERSION Bedside Glucose Monitor (02/03/2004 11:36 AM CDT) P athologist Signature Bedside Blood 239 mg/dL HP CONVERSION Glucose Test Blood Glucose * No normal HP CONVERSION Screen, range Comment 1 Blood Glucose * No normal HP CONVERSION Screen, range Comment 2 Blood Glucose * No normal HP CONVERSION Screen, range Comment 3 Specimen (Source) Anatomical Collection Method Collection Time Re ceived Time Location / / Volume Laterality 02/03/2004 11:36 AM CDT Navneet Campos MD LAB_1 Performing Organization Address City/State/ZIP Code Phon e Number HP CONVERSION Bedside Glucose Monitor (02/03/2004 8:34 AM CDT) athologist Signature Bedside Blood 187 mg/dL HP CONVERSION Glucose Test Blood Glucose * No normal HP CONVERSION Screen, range Comment 1 Blood Glucose * No normal HP CONVERSION Screen, range Comment 2 Blood Glucose * No normal HP CONVERSION Screen, range Comment 3 Specimen (Source) Anatomical Collection Method Collection Time Re ceived Time Location / / Volume Laterality 02/03/2004 8:34 AM CDT Navneet Campos MD LAB_1 Performing Organization Address [facility] Code Phon e Number HP CONVERSION (ABNORMAL) Hemoglobin, Blood (02/03/2004 7:25 AM CDT) athologist Signature Hemoglobin 9.6 (L) 11.8 - 15.5 HP CONVERSION gm/dL Specimen (Source) Anatomical Collection Method Collection Time Re ceived Time Location / / Volume Laterality 02/03/2004 7:25 AM CDT Navneet Campos MD LAB_1 Performing Organization Address [facility] Phon e Number HP CONVERSION Bedside Glucose Monitor (02/03/2004 6:26 AM CDT) athologist Signature Bedside Blood 178 mg/dL HP CONVERSION Glucose Test Blood Glucose * No normal HP CONVERSION Screen, range Comment 1 Blood Glucose * No normal HP CONVERSION Screen, range Comment 2 Blood Glucose * No normal HP CONVERSION Screen, range Comment 3 Specimen (Source) Anatomical Collection Method Collection Time Re ceived Time Location / / Volume Laterality 02/03/2004 6:26 AM CDT Navneet Campos MD LAB_1 Performing Organization Address [facility] Code Phon e Number HP CONVERSION Troponin I (02/03/2004 2:46 AM CDT) athologist Signature TROPONIN I <0.1 0.00 - 0.30 HP CONVERSION ng/mL Comment: Cardiac Profile Specimen (Source) Anatomical Collection Method Collection Time Re ceived Time Location / / Volume Laterality 02/03/2004 2:46 AM CDT Roseann Chinchilla MD LAB_1 Performing Organization Address [facility] Code Phon e Number HP CONVERSION Myoglobin (02/03/2004 2:46 AM CDT) athologist Signature Myoglobulin 45 10 - 92 HP CONVERSION ng/mL Comment: Cardiac Profile Specimen (Source) Anatomical Collection Method Collection Time Re ceived Time Location / / Volume Laterality 02/03/2004 2:46 AM CDT Roseann Chinchilla MD LAB_1 Performing Organization Address [facility] Phon e Number HP CONVERSION Troponin I (02/02/2004 10:50 PM CDT) P athologist Signature TROPONIN I <0.1 0.00 - 0.30 HP CONVERSION ng/mL Comment: Cardiac Profile Specimen (Source) Anatomical Collection Method Collection Time Re ceived Time Location / / Volume Laterality 02/02/2004 10:50 PM CDT Roseann Chinchilla MD LAB_1 Performing Organization Address [facility] Phon e Number HP CONVERSION Myoglobin (02/02/2004 10:50 PM CDT) P athologist Signature Myoglobulin 45 10 - 92 HP CONVERSION ng/mL Comment: Cardiac Profile Specimen (Source) Anatomical Collection Method Collection Time Re ceived Time Location / / Volume Laterality 02/02/2004 10:50 PM CDT Roseann Chinchilla MD LAB_1 Performing Organization Address [facility] Phon e Number HP CONVERSION Bedside Glucose Monitor (02/02/2004 10:04 PM CDT) P athologist Signature Bedside Blood 137 mg/dL HP CONVERSION Glucose Test Blood Glucose * No normal HP CONVERSION Screen, range Comment 1 Blood Glucose * No normal HP CONVERSION Screen, range Comment 2 Blood Glucose * No normal HP CONVERSION Screen, range Comment 3 Specimen (Source) Anatomical Collection Method Collection Time Re ceived Time Location / / Volume Laterality 02/02/2004 10:04 PM CDT Navneet Campos MD LAB_1 Performing Organization Address [facility] Phon e Number HP CONVERSION ECG 12 Lead Inpatient (02/02/2004 9:33 PM CDT) Specimen (Source) Anatomical Collection Method Collection Time Re ceived Time Location / / Volume Laterality 02/02/2004 9:33 PM CDT Narrative HP CONVERSION - 02/02/2004 9:33 PM CDT Normal sinus rhythm Cannot rule out Anterior infarct , age undetermined Abnormal ECG No previous ECGs available Roseann Chinchilla MD PN ECG ORDERABLES Performing Organization Address City/[facility] Phon e Number HP CONVERSION Cardiac Marker Profile (02/02/2004 9:15 PM CDT) athologist Signature Card 0 Done No normal HP CONVERSION range Card 0 Done No normal HP CONVERSION range Card 90 Done No normal HP CONVERSION range Card 0 Done No normal HP CONVERSION range Card 90 Done No normal HP CONVERSION range Card 360 Done No normal HP CONVERSION range Specimen (Source) Anatomical Collection Method Collection Time Re ceived Time Location / / Volume Laterality 02/02/2004 9:15 PM CDT Roseann Chinchilla MD LAB_1 Performing Organization Address City/[facility] Phon e Number HP CONVERSION Troponin I (02/02/2004 9:15 PM CDT) athologist Signature TROPONIN I <0.1 0.00 - 0.30 HP CONVERSION ng/mL Comment: Cardiac Profile Specimen (Source) Anatomical Collection Method Collection Time Re ceived Time Location / / Volume Laterality 02/02/2004 9:15 PM CDT Roseann Chinchilla MD LAB_1 Performing Organization Address City/[facility] Phon e Number HP CONVERSION Myoglobin (02/02/2004 9:15 PM CDT) athologist Signature Myoglobulin 46 10 - 92 HP CONVERSION ng/mL Comment: Cardiac Profile Specimen (Source) Anatomical Collection Method Collection Time Re ceived Time Location / / Volume Laterality 02/02/2004 9:15 PM CDT Roseann Chinchilla MD LAB_1 Performing Organization Address [facility] Phon e Number HP CONVERSION CK, Total (02/02/2004 9:15 PM CDT) athologist Signature Creatine Kinase 83 0 - 225 HP CONVERSION U/L Comment: Cardiac Profile Specimen (Source) Anatomical Collection Method Collection Time Re ceived Time Location / / Volume Laterality 02/02/2004 9:15 PM CDT Roseann Chinchilal MD LAB_1 Performing Organization Address [facility] Code Phon e Number HP CONVERSION Bedside Glucose Monitor (02/02/2004 5:10 PM CDT) athologist Signature Bedside Blood 90 mg/dL HP CONVERSION Glucose Test Blood Glucose * No normal HP CONVERSION Screen, range Comment 1 Blood Glucose * No normal HP CONVERSION Screen, range Comment 2 Blood Glucose * No normal HP CONVERSION Screen, range Comment 3 Specimen (Source) Anatomical Collection Method Collection Time Re ceived Time Location / / Volume Laterality 02/02/2004 5:10 PM CDT Navneet Campos MD LAB_1 Performing Organization Address City/State/ZIP Code Phon e Number HP CONVERSION Pathology Report (02/02/2004 3:40 PM CDT) [facility] Method Time Signature Surgical SEE TEXT No normal HP CONVERSION Pathology range Comment: Patient: MARYAM CORTEZ ?S URGICAL PATHOLOGY REPORT Pathology # ??[id number] ?Date Obtained: ? Date Received: DIAGNOSIS: ?Severe degenerative arthritis, bon e and cartilage, designated right tibia. ?Coleman Lr M.D. ?(electronic signature) TRH/TRH/kmr Date of Report: 02/03/04 Pathology # ??[id number] ?Date Obtained: ? Date Received: ORGAN/TISSUE SITE: ?Right tibia GROSS DESCRIPTION: ?The specimen consists of 2 pieces of bone and articular cartilage ?measuring 6 x 3 x 1 cm and 4 x 2.2 x 0.5 cm. ??The articular cartilage ?shows severe degenerative changes. ??Gross only. TRH/kmr Specimen (Source) Anatomical Collection Method Collection Time Re ceived Time Location / / Volume Laterality 02/02/2004 3:40 PM CDT Navneet Campos MD LAB_1 Performing Organization Address [facility]/ZIP Code Phon e Number HP CONVERSION Bedside Glucose Monitor (02/02/2004 2:38 PM CDT) P athologist Signature Bedside Blood 147 mg/dL HP CONVERSION Glucose Test Blood Glucose * No normal HP CONVERSION Screen, range Comment 1 Blood Glucose * No normal HP CONVERSION Screen, range Comment 2 Blood Glucose * No normal HP CONVERSION Screen, range Comment 3 Specimen (Source) Anatomical Collection Method Collection Time Re ceived Time Location / / Volume Laterality 02/02/2004 2:38 PM CDT Navneet Campos MD LAB_1 Performing Organization Address [facility] Phon e Number HP CONVERSION XR Knee Rt AP And Lateral (02/02/2004 2:25 PM CDT) Anatomical Region Laterality Modality Lower Extremity, Knee Other Specimen (Source) Anatomical Location Collection Method / Collectio n Time Received Time / Laterality Volume Impressions 02/02/2004 2:25 PM CDT : ??Two intraoperative portable views of the right knee showing well aligned cemented total knee prosthesis with overlying surgical nahomy and drains. No fracture s. [place] [id number] Dictating EVE SMITH Radiologist Narrative 02/02/2004 2:25 PM CDT HISTORY: ??DJD. COMPARISON: ??None. Procedure Note Eve Murrell MD - 09/01/2016Format ting of this note might be different from the original. HISTORY: DJD. COMPARISON: None. IMPRESSION : Two intraoperative portable views of t he right knee showing well aligned cemented total knee prosthesis with overlying surgical nahomy and drains. No fracture sMireille Fuller [id number] Dictating MD MURRELL, EVE Radiologist Navneet Campos MD RAD GD Bedside Glucose Monitor (02/02/2004 10:37 AM CDT) P athologist Signature Bedside Blood 184 mg/dL HP CONVERSION Glucose Test Blood Glucose * No normal HP CONVERSION Screen, range Comment 1 Blood Glucose * No normal HP CONVERSION Screen, range Comment 2 Blood Glucose * No normal HP CONVERSION Screen, range Comment 3 Specimen (Source) Anatomical Collection Method Collection Time Re ceived Time Location / / Volume Laterality 02/02/2004 10:37 AM CDT Navneet Campos MD LAB_1 Performing Organization Address City/State/ZIP Code Phon e Number HP CONVERSION documented in this encounter Visit Diagnoses Not on filedocumented in this encounter Care Teams Tobacco Curer Relationship Specialty Start Date End Date Unassigned, Provider PCP - General 08/26/00 09/26/10 [address] [place] [address] documented as of this encounter
--- OUTSIDE RECORDS SUMMARY | 2022-04-05 15:46 | XMS_ITS | Encounter Summary ---
:1945 Author Organization [facility] Address [address] [place] [address] Care Team Providers Name Role Phone Lina Meléndez Primary Care Provider [place] Shivani Unavailable Encounter Details Date Type Department Care Team Description 11/22/2020 Records - [facility] YENNI CONVERSION Provider, Histor ical Social History Tobacco Use Types Packs/Day Years Used Date Smoking Tobacco: Never Assessed Sex Assigned at Date Recorded Female 02/24/2020 11:40 AM CDT documented as of this encounter Plan of Treatment Not on filedocumented as of this encounter Procedures Procedure Name Priority Date/Time Associated Diagnosis Comme nts CT MISC FCIS ORDER Routine 10/05/2006 12:00 AM Re sults for this CDT procedure are i n the results section. CT MISC FCIS ORDER Routine 10/05/2006 12:00 AM Re sults for this CDT procedure are i n the results section. documented in this encounter Results CT Misc Order (10/05/2006 12:00 AM CDT) Anatomical Region Laterality Modality Computed Tomography Specimen (Source) Anatomical Location Collection Method / Collectio n Time Received Time / Laterality Volume Narrative 10/05/2006 12:00 AM CDT See Historical Hospital Medical Record f or documentation Procedure Note Provider, Historical - 11/22/2020Formatt ing of this note might be different from the original. See Historical Hospital Medical Record f or documentation Historical Provider IMG CT ORDERABLES CT Misc Order (10/05/2006 12:00 AM CDT) Anatomical Region Laterality Modality Computed Tomography Specimen (Source) Anatomical Location Collection Method / Collectio n Time Received Time / Laterality Volume Narrative 10/05/2006 12:00 AM CDT See Historical Hospital Medical Record f or documentation Procedure Note Provider, Historical - 11/22/2020Formatt ing of this note might be different from the original. See Historical Hospital Medical Record f or documentation Historical Provider IMG CT ORDERABLES documented in this encounter Visit Diagnoses Not on filedocumented in this encounter Care Teams Tank Truck Mechanic Relationship Specialty Start Date End Date Lina Meléndez PCP - General Internal Medicine 12/26/14 [facility] [address] [place] [address] Rhoda Sarabia I Furnace And Wash Equipment Operator Dietitian, Registered 02/20/20 [address] [facility] [address] [place] [address] documented as of this encounter
--- OUTSIDE RECORDS SUMMARY | 2022-04-05 15:46 | XMS_ITS | Encounter Summary ---
:1945 [facility] Address [address] [address] Care Team Providers Name Role Phone Coleman Dye MD Primary Care Provider Unavailable Encounter Details Date Type Department Care Team Description 02/02/2004 PN Conversion Only OTHER CONVERSION [address] [place] [address] Social History Tobacco Use Types Packs/Day Years Used Date Smoking Tobacco: Never Assessed Sex Assigned at Date Recorded Not on file documented as of this encounter Plan of Treatment Not on filedocumented as of this encounter Visit Diagnoses Not on filedocumented in this encounter 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
--- OUTSIDE RECORDS SUMMARY | 2022-04-05 15:46 | XMS_ITS | Encounter Summary ---
:1945 Author Organization [facility] [place] Address [address] [place] [address] Care Team Providers Name Role Phone Lina Meléndez Primary Care Provider Rhoda Sarabia I Unavailable Encounter Details Date Type Department Care Team Description 11/24/2020 Records - [facility] YENNI CONVERSION Provider, Histor ical Social History Tobacco Use Types Packs/Day Years Used Date Smoking Tobacco: Never Assessed Sex Assigned at Date Recorded Female 02/24/2020 11:40 AM CDT documented as of this encounter Plan of Treatment Not on filedocumented as of this encounter Procedures Procedure Name Priority Date/Time Associated Diagnosis Comme nts CT HEAD W/O Routine 09/01/2008 12:00 AM Results for this CONTRAST CDT procedure are i n the results section. documented in this encounter Results CT Head w/o Contrast (09/01/2008 12:00 AM CDT) Anatomical Region Laterality Modality Head, SUBRAD CT NEURO, SUBRAD CT NEURO, UMP CT NEURO, Computed Tomography RAD CT Specimen (Source) Anatomical Location Collection Method / Collectio n Time Received Time / Laterality Volume Narrative 09/01/2008 12:00 AM CDT See Historical Hospital Medical Record f or documentation Procedure Note Provider, Historical - 11/24/2020Formatt ing of this note might be different from the original. See Historical Hospital Medical Record f or documentation Historical Provider IMG CT ORDERABLES documented in this encounter Visit Diagnoses Not on filedocumented in this encounter Care Teams Bill Distributor Relationship Specialty Start Date End Date Lina Meléndez PCP - General Internal Medicine 12/26/14 [facility] [address] [place] [address] Rhoda Sarabia I Distribution Dispatcher Dietitian, Registered 02/20/[address] [place] [id number] documented as of this encounter
--- OUTSIDE RECORDS SUMMARY | 2022-04-05 15:46 | XMS_ITS | Encounter Summary ---
:1945 Author Organization [facility] Address [address] [address] Care Team Providers Name Role Phone Coleman Dye MD Primary Care Provider Unavailable Encounter Details Date Type Department Care Team Description 02/06/2003 PN Conversion Only [facility] 393 Mo Barkley MD [facility] [address] [place] [address] Social History Tobacco Use Types Packs/Day Years Used Date Smoking Tobacco: Never Assessed Sex Assigned at Date Recorded Not on file documented as of this encounter Progress Notes David Barkley - 02/06/2003 12:01 AM CDT Progress Notes signed by at 03/20/03 1029 Author: David Barkley MD Service: (none) Author Type: (none) Filed: 10/14/10 1539 Note Time: 02/06/03 0001 Status: Signed Research Professional: Imr Conversion NAME: MARYAM CORTEZ MR: [id number] ACCT: [id number] VISIT: [id number] DICTATING CLINICIAN: MO BARKLEY MD JOB: [id number] CLINIC PROGRESS NOTE DATE OF VISIT: 02/06/2003 SUBJECTIVE: : 1945. Ms. Cortez is a 57-year-old, right-handed female seen today in the clinic for some right arm pain, that has been going on since an incident where she was pulling herself out of the pool, pulling herself up at the ladder real vigorously, when she felt a pop in her arm. She had pain at that time. She describes it as kind of a diffuse pain to the epicondylar, distal biceps and brachioradialis area. She states it bothers her when she does the breast stroke. Initially, it bothered her to do things like combing her hair. Now, it does not seem to be bothering her as much. It seems to really bother her most when she rotates her arm. She does not report any numbness or tingling in her hand. She did go to physical therapy for it and reports that really did not help her that much. She does not report any shoulder pain. She does not report any neck pain at this time. MEDICATIONS: Avandia, Glucotrol, metformin for her diabetes, Vioxx, Minocin, Premarin and Prevacid for gastroesophageal reflux. ADR/ALLERGIES: SULFA. PREVIOUS SURGERIES: Carpal tunnel, hysterectomy, C-spine surgery, bilateral arthroscopic surgery on her knees. 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 FAMILY HISTORY: She reports cardiovascular disease, cerebrovascular disease and diabetes in her mother, stomach cancer in her grandparent. REVIEW OF SYSTEMS: She reports weakness, fatigue, wears glasses for visual acuity, frequent headaches, previously mentioned diabetes and gastroesophageal reflux. OBJECTIVE: On physical exam today, well-developed, well-nourished, overweight female in no apparent distress. Point tenderness over both the lateral epicondyle and the radial nerve area, although she does not complain of pain with extension of the wrist or extension of the middle finger against resistance with either the elbow flexed or extended. No pain with supination or pronation of the forearm. She does appear to have lack of full extension of the elbow at this time, but has full flexion, supination and pronation. She is neurovascularly intact in the right upper extremity. X-ray is reviewed from 12/21 done at [facility] and do not show any bone or joint abnormalities. ASSESSMENT: Right elbow pain. PLAN: Would have her try a tennis elbow band to see if this makes it better or worse. Would do some ice massage and have her do some stretching. She does report that she seems to be getting somewhat better. Follow up would be on an as needed basis. TT: CT: [id number] C: 02/07/03 15:34 DOCUMENT: [id number] Navneet Marie MD - 01/18/2002 12:01 AM CDT Progress Notes signed by Navneet Campos MD at 08/14/02 1724 Author: Navneet Campos MD Service: (none) Author Type: Physician Filed: 10/14/10 0803 Note Time: 01/18/02 0001 Status: Signed Research Professional: Navneet Campos MD (Physician) IMPRESSION: X SUBJECTIVE: Maryam is in today to get a cortisone injection in her right knee. She has degenerative arthritis of the knee and she is scheduled to go to [place] in a few weeks. When I saw her last time I told her it would probably be to her benefit to come in a week or so ahead of time for an injection. OBJECTIVE: N/A ASSESSMENT: N/A PLAN: After sterile prep I injected a mixture of lidocaine and Depo- Medrol. We will have her follow-up in three months. TT: CT: [id number] C: DOCUMENT: [id number] Navneet Marie MD - 12/14/2001 12:01 AM CDT Progress Notes signed by at 07/13/02 1836 Author: Navneet Campos MD Service: (none) Author Type: Physician Filed: 10/14/10 0716 Note Time: 12/14/01 0001 Status: Signed Research Professional: Navneet Campos MD (Physician) IMPRESSION: Degenerative joint disease, right knee. SUBJECTIVE: Maryam returns today with increasing right knee pain. She has had previous arthroscopy and x-ray evidence of moderately advanced degenerative changes. Her last x-ray was in June 1999. She is now having pain to the point where she is actually using Vicodin in addition to her Advil. She is taking 800 mg four times a day. 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 OBJECTIVE: Exam of her knee shows flexion to 120 degrees. She has full extension. There is tenderness over the medial joint line. A small effusion is present. Patricia's is negative. Quadriceps tone is definitely diminished. X-rays done today show additional degenerative changes with osteophytes now developing along the medial side of the femur and at the patellofemoral joint particularly at the superior pole. ASSESSMENT: Degenerative joint disease, right knee. PLAN: I told her that we could do either a Synvisc series of injections or a cortisone injection, but it would probably be better to wait until just before she goes to [place]. We have mutually agreed to do cortisone in the last week of December. I have suggested that she augment her Advil with Extra Strength Tylenol. I also gave her a prescription for Vicodin. She has used it extremely sparingly. She is certainly heading towards needing knee replacement surgery and she has two compartment disease and most likely would require a total knee arthroplasty. She will be seen in late December. TT: CT: [id number] C: DOCUMENT: [id number] ICAL TRAINING SPECIALIST Navneet Campos MD - 09/25/2001 12:01 AM CST Progress Notes signed by at 07/13/02 1826 Author: Navneet Campos MD Service: (none) Author Type: Physician Filed: 10/14/10 0525 Note Time: 09/25/01 0001 Status: Signed Research Professional: Navneet Campos MD (Physician) IMPRESSION: Degenerative joint disease, right knee. SUBJECTIVE: Maryam is back today with increasing pain in her right knee. She has early degenerative arthritis and has had cortisone injection in the past with fairly dramatic relief. This was about six months ago. She has had slow progression over the past several weeks. OBJECTIVE: EXTREMITIES: She has a small effusion. She has full extension. She can flex to about 120 degrees. Beyond that point it is quite uncomfortable. She is tender along the medial joint line. Negative Patricia's. ASSESSMENT: Degenerative joint disease, right knee. PLAN: After sterile prep I injected a mixture of lidocaine and Depo- Medrol. She will follow-up as needed. TT: CT: [id number] C: DOCUMENT: [id number] Navneet Marie MD - 07/06/2001 12:01 AM CST Progress Notes signed by at 07/13/02 1818 Author: Navneet Campos MD Service: (none) Author Type: Physician Filed: 10/14/100 Note Time: 07/06/01 0001 Status: Signed Research Professional: Navneet Campos MD (Physician) IMPRESSION: Degenerative joint disease right knee. SUBJECTIVE: Maryam reports significant relief following her cortisone injection approximately 6 weeks ago. She said she has had a few twinges of pain over the past few days. OBJECTIVE: Extremities: She has pain with flexion beyond 125 degrees. She is tenderness over the medial joint line. Negative Patricia's. ASSESSMENT: Degenerative joint disease right knee. PLAN: Her symptoms are such that I felt it would be best to hold off on the second cortisone injection since she got so much benefit from the first. She will followup with us as needed and we will perform cortisone injection on an as needed basis. TT: CT: [id number] C: DOCUMENT: [id number] Navneet Marie MD - 04/27/2001 12:01 AM CST Progress Notes signed by at 07/13/02 1812 Author: Navneet Campos MD Service: (none) Author Type: Physician Filed: 10/14/10 0200 Note Time: 04/27/01 0001 Status: Signed Research Professional: Navneet Campos MD (Physician) IMPRESSION: Degenerative joint disease right knee. SUBJECTIVE: Maryam is seen for the first time since June of 1999. She is having more pain in her right knee. It bothers her a lot when she has been doing a lot of sitting or driving. Standing is also painful for her. No mechanical symptoms. OBJECTIVE: Exam of her knee shows near full range of motion. There is diffuse tenderness both medially and laterally. Mild to moderate crepitus is present. She has a similar amount of crepitus on the left knee although not nearly as much pain. ASSESSMENT: Degenerative joint disease right knee. PLAN: I told her that I felt that a cortisone injection may be of some help to her. She has not had this in the past. She somewhat reluctantly agreed to have this done and after sterile prep she is injected with a mixture of lidocaine and Aristospan. I told her that this will probably cause her sugars to bounce slightly for the next day or so. I would like to see her back in six weeks and I would consider repeat injection if at least partial relief is obtained. PRD:[id number] C: DOCUMENT: [id number] ICAL TRAINING SPECIALIST Conversion, [facility] - 06/30/1999 12:01 AM CST Progress Notes signed by at 01/30/01 6644 Author: Boubacar Conversion Service: (none) Author Type: (none) Filed: 10/13/10 1437 Note Time: 06/30/992016 Status: Signed Research Professional: Boubacar Conversion IMPRESSION: Contusion right knee, fifth metatarsalgia right foot, degenerative joint disease left mid foot. SUBJECTIVE: Ms. Cortez is a 53-year-old female who is well known to me from a practice in [place], who is being seen today for several problems. Her right knee was injured in March. She tripped over a young child and fell directly onto her patella region on a cement floor. She had a lot of pain and was seen at an urgent care center within a few days and x-rays were done and there was no fracture. This began to improve but recently she began to develop pain underneath the kneecap. No locking, catching or giving way. No new injury. Second problem is pain under the right fifth toe. She is sore on the region of the metatarsal head. No recent injury to this area. Her third problem is a painful lump on the dorsum of the left mid foot. This has been slowly progressive. Several years ago, she dropped a heavy object on her foot. OBJECTIVE: Examination of her knee shows no effusion. She has mild patellofemoral crepitus. Good patellar tracking. No joint line tenderness. No laxity. Negative apprehension sign. Quadriceps tone is fair. Examination of the right foot shows early keratosis under the metatarsal head on the fifth ray. No joint tenderness. No swelling. Full range of motion of the metatarsal phalangeal joint. Normal capillary refill. Examination of the left foot shows bony prominence over the dorsum of the foot in the region of the middle cuneiform. There is a slight fluid collection overlying this. Mild tenderness to palpation. X-rays of the knee are normal. X-rays of the right foot show no abnormalities of the metatarsal head. X-rays of the left foot show degenerative splaying on the dorsal surface of the navicular and the middle cuneiform joint. ASSESSMENT: 1. Contusion right knee. 2. Fifth metatarsalgia right foot. 3. Degenerative joint disease left mid foot. PLAN: I told her that the patellar contusion is a benign situation and should completely resolve with time. With respect to her right fifth metatarsalgia, I am going to have her go back to the water meter mechanic and modify her orthotics with a metatarsal arch. Regarding her left foot, I told her that the best treatment for this is observation for as long as possible and if symptoms require, the joint can be debrided through a small surgical incision. She will hold off on this for now. She will get back in touch with us if she decides to do so. PRD:[id number] C: DOCUMENT: [id number] SCHEDULED RESOURCE: NAVNEET CAMPOS MD ICAL TRAINING SPECIALIST documented in this encounter Plan of Treatment Not on filedocumented as of this encounter Procedures Procedure Name Priority Date/Time Associated Comments Diagnosis XR KNEE RT 3 VIEWS Routine 12/19/2003 11:58 AM Re sults for this CDT procedure are i n the results section. XR KNEE AP LATERAL Routine 12/14/2001 2:20 PM Res ults for this AND TUNNEL LEFT CDT procedure ar e in the results section. ANC RESULT Routine 06/30/1999 2:30 PM Results f or this CONVERSION DEFAULT CLINICAL TRAINING SPECIALIST procedure are in ORDER the results section. ANC RESULT Routine 06/30/1999 2:30 PM Results f or this CONVERSION DEFAULT CLINICAL TRAINING SPECIALIST procedure are in ORDER the results section. documented in this encounter Results XR Knee Rt 3 Views (12/19/2003 11:58 AM CDT) Anatomical Region Laterality Modality Lower Extremity, Knee Other Specimen (Source) Anatomical Location Collection Method / Collectio n Time Received Time / Laterality Volume Narrative 12/19/2003 11:58 AM CDT HISTORY: Evaluate DJD. COMPARISON: 12/14/01. There has been progression of the degene rative changes of the knee joint. There is moderately severe narrow ing of the medial joint space compartment of the knee with periarticul ar sclerosis and some mild spurring. There is more prominent spurri ng of the patellofemoral joint but with relatively good maintenan ce of the joint space itself. Spurring of the femoral condyles is seen both anteriorly and posteriorly. No acute abnormality. [id number] Dictating TAVON CURRY RADIOLOGIST Procedure Note Tavon Guidry - 09/01/2016Formatting o f this note might be different from the original. HISTORY: Evaluate DJD. COMPARISON: 12/14/01. There has been progression of the degene rative changes of the knee joint. There is moderately severe narrow ing of the medial joint space compartment of the knee with periarticul ar sclerosis and some mild spurring. There is more prominent spurri ng of the patellofemoral joint but with relatively good maintenan ce of the joint space itself. Spurring of the femoral condyles is seen both anteriorly and posteriorly. No acute abnormality. [id number] Dictating TAVON CURRY RADIOLOGIST Navneet Campos MD RAD GD XR Knee AP Lateral And Tunnel Left (12/14/2001 2:20 PM CDT) Anatomical Region Laterality Modality Other Specimen (Source) Anatomical Location Collection Method / Collectio n Time Received Time / Laterality Volume Impressions 12/14/2001 2:20 PM CDT : ?MODERATE DEGENERATIVE CHANGES NOTE D, RIGHT KNEE, WITH MEDIAL ?JOINT SPACE NARROWING AND NARROWIN G OF THE PATELLOFEMORAL ?JOINT SPACE. ??OSTEOPHYTIC SPURRIN G IS NOTED OFF THE ANTERIOR ?AND POSTERIOR TIBIAL SPINE. FINDIN GS CONSISTENT WITH ?MODERATE DEGENERATIVE ARTHRITIS. N O CHANGE PREVIOUS EXAM ?06/30/1999. FINDINGS: ?THE RIGHT KNEE SHOWS MEDIAL JOINT SPACE NARROWING WITH ?NARROWING OF THE PATELLOFEMORAL ELVA INT SPACE. ??COMPARED TO ?THE PREVIOUS EXAM OF 06/30/1999, T HERE HAS BEEN NO ?SIGNIFICANT CHANGE. ?[id number] - [id number])/CAR TECH-ID : ? JLW TRANS-ID: ? EDR Narrative 12/14/2001 2:20 PM CDT CLINICAL DATA: ?F/U DJD Procedure Note Reg Moctezuma MD - 09/01/2016Format ting of this note might be different from the original. CLINICAL DATA: F/U DJD IMPRESSION : MODERATE DEGENERATIVE CHANGES NOTED, RI GHT KNEE, WITH MEDIAL JOINT SPACE NARROWING AND NARROWING OF THE PATELLOFEMORAL JOINT SPACE. OSTEOPHYTIC SPURRING IS NO CARLA OFF THE ANTERIOR AND POSTERIOR TIBIAL SPINE. FINDINGS CO NSISTENT WITH MODERATE DEGENERATIVE ARTHRITIS. NO LAWRENCE NGE PREVIOUS EXAM 06/30/1999. FINDINGS: THE RIGHT KNEE SHOWS MEDIAL JOINT SPACE NARROWING WITH NARROWING OF THE PATELLOFEMORAL JOINT S PACE. COMPARED TO THE PREVIOUS EXAM OF 06/30/1999, THERE HAS BEEN NO SIGNIFICANT CHANGE. [id number] - [id number])/Metrilus TECH-ID : JLW TRANS-ID: EDR Navneet Campos MD RAD GD Anc Result Conversion Default Order (06/30/1999 2:30 PM CLINICAL TRAINING SPECIALIST) Anatomical Region Laterality Modality Other Specimen (Source) Anatomical Location Collection Method / Collectio n Time Received Time / Laterality Volume Impressions 06/30/1999 2:30 PM CLINICAL TRAINING SPECIALIST : ?BILATERAL HALLUX VALGUS AND DEGENE RATIVE CHANGE AT THE FIRST ?MTP JOINT AND LARGE SPURS ARISING FROM BOTH CALCANEI ON ?THEIR PLANTAR ASPECTS. FINDINGS: ?ON THE RIGHT, THERE IS DEGENERATIV E CHANGE AT THE FIRST MTP ?JOINT WITH HALLUX VALGUS AND A MET ATARSAL ANGLE OF 10 ?DEGREES. ??THERE IS NO FRACTURE. ? ?THERE IS A LARGE SPUR ?ARISING FROM THE PLANTAR ASPECT OF THE CALCANEUS. ?ON THE LEFT, THERE ARE DEGENERATIV E CHANGES AT THE FIRST MTP ?JOINT WITH HALLUX VALGUS AND A MET ATARSAL ANGLE OF ?APPROXIMATELY 13 DEGREES. ??THERE IS A LARGE SPUR ARISING ?FROM THE PLANTAR ASPECT OF THE BETTY CANEUS. ??THERE ARE NO ?OTHER ABNORMALITIES. TECH-ID : ? UU TRANS-ID: ? LMA Narrative 06/30/1999 2:30 PM CLINICAL TRAINING SPECIALIST CLINICAL DATA: ?BUMP Procedure Note Mike Camacho L - 09/01/2016Formattin g of this note might be different from the original. CLINICAL DATA: BUMP IMPRESSION : BILATERAL HALLUX VALGUS AND DEGENERATIV E CHANGE AT THE FIRST MTP JOINT AND LARGE SPURS ARISING FROM BOTH CALCANEI ON THEIR PLANTAR ASPECTS. FINDINGS: ON THE RIGHT, THERE IS DEGENERATIVE LAWRENCE NGE AT THE FIRST MTP JOINT WITH HALLUX VALGUS AND A METATARS AL ANGLE OF 10 DEGREES. THERE IS NO FRACTURE. THERE IS A LARGE SPUR ARISING FROM THE PLANTAR ASPECT OF THE CALCANEUS. ON THE LEFT, THERE ARE DEGENERATIVE LAWRENCE NGES AT THE FIRST MTP JOINT WITH HALLUX VALGUS AND A METATARS AL ANGLE OF APPROXIMATELY 13 DEGREES. THERE IS A LA RGE SPUR ARISING FROM THE PLANTAR ASPECT OF THE CALCANEU S. THERE ARE NO OTHER ABNORMALITIES. TECH-ID : UU TRANS-ID: LMA Navneet Campos MD RAD GD Anc Result Conversion Default Order (06/30/1999 2:30 PM CLINICAL TRAINING SPECIALIST) Anatomical Region Laterality Modality Other Specimen (Source) Anatomical Location Collection Method / Collectio n Time Received Time / Laterality Volume Impressions 06/30/1999 2:30 PM CLINICAL TRAINING SPECIALIST : ?DEGENERATIVE CHANGE AT THE KNEES B ILATERALLY WITH SLIGHT ?GENU VARUS ANGULATION ON THE RIGHT . FINDINGS: ?THERE IS MODERATE NARROWING OF THE MEDIAL JOINT COMPARTMENT ?WITH SLIGHT GENU VARUS. ??SMALL OS TEOPHYTES ARE SEEN AT THE ?MARGINS OF THE JOINTS AND ARISING FROM THE PATELLA WITH NO ?EVIDENCE OF DISLOCATION, INTRA-ART ICULAR CALCIFICATION OR ?FRACTURE. ??THERE IS ALSO SLIGHT N ARROWING OF THE MEDIAL ?JOINT COMPARTMENT OF THE LEFT KNEE WITH SLIGHT DEGENERATIVE ?CHANGE AND NO EVIDENCE OF FRACTURE OR DISLOCATION. ??THE ?PATELLA SKYLINE VIEWS SHOW NO EVID ENCE OF DISLOCATION. THERE ?ARE OSTEOPHYTES ARISING FROM BOTH PATELLAS. TECH-ID : ? UU TRANS-ID: ? LMA Narrative 06/30/1999 2:30 PM CLINICAL TRAINING SPECIALIST CLINICAL DATA: ?FALL Procedure Note Mike Camacho - 09/01/2016Formattin g of this note might be different from the original. CLINICAL DATA: FALL IMPRESSION : DEGENERATIVE CHANGE AT THE KNEES BILATE RALLY WITH SLIGHT GENU VARUS ANGULATION ON THE RIGHT. FINDINGS: THERE IS MODERATE NARROWING OF THE MEDI AL JOINT COMPARTMENT WITH SLIGHT GENU VARUS. SMALL OSTEOPHYT ES ARE SEEN AT THE MARGINS OF THE JOINTS AND ARISING FROM THE PATELLA WITH NO EVIDENCE OF DISLOCATION, INTRA-ARTICULA R CALCIFICATION OR FRACTURE. THERE IS ALSO SLIGHT NARROWIN G OF THE MEDIAL JOINT COMPARTMENT OF THE LEFT KNEE WITH SLIGHT DEGENERATIVE CHANGE AND NO EVIDENCE OF FRACTURE OR D ISLOCATION. THE PATELLA SKYLINE VIEWS SHOW NO EVIDENCE OF DISLOCATION. THERE ARE OSTEOPHYTES ARISING FROM BOTH BRADSHAW LAS. TECH-ID : UU TRANS-ID: LMA Navneet Campos MD RAD GD documented in this encounter Visit Diagnoses Not on filedocumented in this encounter Care Teams Service Center Specialist Relationship Specialty Start Date End Date Coleman Dye MD PCP - General 09/27/1012/19 documented as of this encounter
--- OUTSIDE RECORDS SUMMARY | 2022-04-05 15:46 | XMS_ITS | Encounter Summary ---
:1945 Author Organization [facility] Address [address], [place] [address] Care Team Providers Name Role Phone Coleman Dye MD Primary Care Provider Unavailable Encounter Details Date Type Department Care Team Description 04/20/2007 Office Visit [facility] Navneet Campos MD [facility] [address] [place], [place] [address] [place] [address] (Wo rk) Social History Tobacco Use Types Packs/Day Years Used Date Smoking Tobacco: Never Assessed Sex Assigned at Date Recorded Not on file documented as of this encounter Progress Notes Navneet Campos MD - 04/20/2007 12:01 AM CDT Progress Notes signed by Navneet Campos MD at 04/23/07 0847 Author: Navneet Campos MD Service: (none) Author Type: Physician Filed: 10/15/10 9526 Note Time: 04/20/07 0001 Status: Signed Negative Cleaner: Navneet Campos MD (Physician) NAME: MARYAM CORTEZ MR#: [id number] ACCT: [id number] VISIT: [id number] DICTATING CLINICIAN: NAVNEET CAMPOS MD JOB: [id number] LOC: 311 CLINIC PROGRESS NOTE DATE OF VISIT: 04/20/2007 SUBJECTIVE: Maryam is seen for the first time in nearly 2 years. I have previously done a right total knee arthroplasty on her in 01/2004, and she did very well with this. She has had progressive pain in her left knee. It is now getting to the point where she wants to consider total knee arthroplasty. She has difficulty going down stairs. She has not had much in the way of stiffness with her knee. She is also bothered by some pain over the medial side, right ankle. Interestingly, this seems to bother her mainly when she is lying down at night. She said she has to try several different positions, before it becomes comfortable. No recent trauma. OBJECTIVE: Exam of her right knee shows a benign incision, flexion to 115 degrees and full extension. Good medial and lateral stability. Good patellar tracking. Exam of her left knee shows a 1+ effusion. She has diffuse, [id number]-[id number] joint line tenderness. She can flex to at least 120 degrees and has full extension. No collateral laxity. Quadriceps tone is somewhat diminished. Examination of her right ankle shows some slight swelling along the posterior tibial tendon, but no true tenderness. She can do a single leg toe rise. A small osteophyte was present off of the medial malleolus. X-rays of both knees are done today. Her prosthesis is in excellent position on the right. On the left knee, there is complete obliteration of the medial joint space, and there are advanced changes in the patellofemoral joint. X-rays of her ankle show a tiny osteophyte off of the medial malleolus. The midfoot also shows some degenerative changes. The ankle itself appears normal. ASSESSMENT: 1. 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 2. Degenerative joint disease, left knee. 3. Right ankle pain. PLAN: It is certainly appropriate to proceed to a total knee arthroplasty. She is aware of the risks and possible complications. She went directly home following her first surgery, and would hope to be able to do so now. With respect to her ankle, I said that I am not certain of the source of her pain, but I do not see any surgical lesion, other than the possibility that this small osteophyte may be interfering with one of the sensory nerves. Will continue to monitor this. PRD:[id number] C: 04/21/07 11:17 DOCUMENT: [id number] documented in this encounter Plan of Treatment Not on filedocumented as of this encounter Procedures Procedure Name Priority Date/Time Associated Diagnosis Comme nts XR ANKLE RT 3 VIEWS Routine 04/20/2007 10:40 AM R esults for this CDT procedure are i n the results section. XR KNEE RT 3 VIEWS Routine 04/20/2007 10:16 AM Re sults for this CDT procedure are i n the results section. XR KNEE LT 3 VIEWS Routine 04/20/2007 10:16 AM Re sults for this CDT procedure are i n the results section. documented in this encounter Results XR Ankle Rt 3 Views (04/20/2007 10:40 AM CDT) Anatomical Region Laterality Modality Lower Extremity, Ankle, Foot & Ankle Oth er Specimen (Source) Anatomical Location Collection Method / Collectio n Time Received Time / Laterality Volume Narrative 04/20/2007 10:40 AM CDT Ankle appears intact. ??Subtalar joints appear normal. ??There are degenerative changes in the midfoot join ts. ??A moderately large plantar calcaneal spur is also present. [id number] Dictating GIUSEPPE JENNINGS RADIOLOGIST Procedure Note Giuseppe Alves - 09/01/2016Formattin g of this note might be different from the original. Ankle appears intact. Subtalar joints ap pear normal. There are degenerative changes in the midfoot join ts. A moderately large plantar calcaneal spur is also present. [id number] Dictating GIUSEPPE JENNINGS RADIOLOGIST Navneet Campos MD RAD GD XR Knee Lt 3 Views (04/20/2007 10:16 AM CDT) Anatomical Region Laterality Modality Lower Extremity, Knee Other Specimen (Source) Anatomical Location Collection Method / Collectio n Time Received Time / Laterality Volume Narrative 04/20/2007 10:16 AM CDT FINDINGS: ??There is moderate to advanced degenerative arthritis in the left knee with medial compartment na rrowing. [id number] Dictating NAVI BANERJEE RADIOLOGIST Procedure Note Navi Yost MD - 09/01/2016 FINDINGS: There is moderate to advanced degenerative arthritis in the left knee with medial compartment na rrowing. [id number] Dictating NAVI BANERJEE RADIOLOGIST Navneet Campos MD RAD GD XR Knee Rt 3 Views (04/20/2007 10:16 AM CDT) Anatomical Region Laterality Modality Lower Extremity, Knee Other Specimen (Source) Anatomical Location Collection Method / Collectio n Time Received Time / Laterality Volume Narrative 04/20/2007 10:16 AM CDT HISTORY: ??Pain. REPORT: ??Patient is status post arthrop lasty which appears in stable alignment compared to prior study. ??No evidence of hardware complication. ??No acute lesion. [id number]/erasto Dictating JAMEEL SAUCEDO Radiologist Procedure Note Jameel Ceballos MD - 09/01/2016For matting of this note might be different from the original. HISTORY: Pain. 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 No ev idence of hardware complication. No acute lesion. 130300/pamd Dictating JAMEEL SAUCEDO Radiologist Navneet Campos MD RAD GD documented in this encounter Visit Diagnoses Not on filedocumented in this encounter Care Teams Dough Mixer Helper Relationship Specialty Start Date End Date Coleman Dye MD PCP - General 09/27/1012/19 documented as of this encounter
--- OUTSIDE RECORDS SUMMARY | 2022-04-05 15:46 | XMS_ITS | Encounter Summary ---
:1945 Author Organization [facility] Address [address] [place] [address] Care Team Providers Name Role Phone Lina Meléndez Primary Care Provider Rhoda Sarabia I Unavailable Encounter Details Date Type Department Care Team Description 11/22/2020 Records - [facility] YENNI CONVERSION Provider, Histor ical Social History Tobacco Use Types Packs/Day Years Used Date Smoking Tobacco: Never Assessed Sex Assigned at Date Recorded Female 02/24/2020 11:40 AM CDT documented as of this encounter Plan of Treatment Not on filedocumented as of this encounter Procedures Procedure Name Priority Date/Time Associated Diagnosis Comme nts MR ABDOMEN W Routine 11/07/2006 12:00 AM Results for this CONTRAST CDT procedure are i n the results section. documented in this encounter Results MR Abdomen w Contrast (11/07/2006 12:00 AM CDT) Anatomical Region Laterality Modality Abdomen/Pelvis, SUBRAD MR BODY, UMP MR BODY, RAD MR Other Specimen (Source) Anatomical Location Collection Method / Collectio n Time Received Time / Laterality Volume Narrative 11/07/2006 12:00 AM CDT See Historical Hospital Medical Record f or documentation Procedure Note Provider, Historical - 11/22/2020Formatt ing of this note might be different from the original. See Historical Hospital Medical Record f or documentation Historical Provider IMG MRI ORDERABLES documented in this encounter Visit Diagnoses Not on filedocumented in this encounter Care Teams Legislative Director Relationship Specialty Start Date End Date Lina Meléndez PCP - General Internal Medicine 12/26/14 [facility] [address] [place] [address] Rhoda Sarabia I Technology Resource Teacher Dietitian, Registered 02/20/[address] [place] [address] documented as of this encounter
--- OUTSIDE RECORDS SUMMARY | 2022-04-05 15:46 | XMS_ITS | Encounter Summary ---
:1945 Author Organization [facility] Address [address] [place] [address] Care Team Providers Name Role Phone Coleman Dye MD Primary Care Provider Unavailable Reason for Visit Reason Comments Other Encounter Details Date Type Department Care Team Description 05/07/2007 [facility] [address] Aure Roy RN Other Orthopedics [address] [place] [address] Social History Tobacco Use Types Packs/Day Years Used Date Smoking Tobacco: Never Assessed Sex Assigned at Date Recorded Not on file documented as of this encounter Progress Notes Yuko Charles RN - 05/07/2007 3:15 PM CST Phone Note filed by Yuko Charles RN at 10/13/10814 Author: Yuko Charles RN Service: (none) Author Type: (none) Filed: 10/13/10814 Note Time: 05/07/071514 Status: Signed Project Crew Worker: Boubacar Conversion Post-Op Call Treating Clinician:Dr.Paul Rangel Procedure & Date:L TKA 05/03/07 Pain Level:no pain Pain under control?:Yes Medication Refill?:None needed Incision Sx.,(red,drg,etc):Looks very good denies redness or drainage Temp:none Call back if:Pt given nurse line phone number to call if any questions or concerns Post op appt date:05/15/07 @ 1040 Call back number:[phone] Is it OK to leave a confidential message on this voicemail?:yes Created on 07May2007 3:15pm by YUKO CHARLES INTERN documented in this encounter Plan of Treatment Not on filedocumented as of this encounter Visit Diagnoses Not on filedocumented in this encounter Care Teams Food Service Director Relationship Specialty Start Date End Date Coleman Dye MD PCP - General 09/27/1012/19 documented as of this encounter
--- OUTSIDE RECORDS SUMMARY | 2022-04-05 15:46 | XMS_ITS | Encounter Summary ---
:1945 Author Organization [facility] Address [address] [address] Care Team Providers Name Role Phone Coleman Dye MD Primary Care Provider Unavailable Encounter Details Date Type Department Care Team Description 09/14/2004 [facility] Conversion Only [facility] [address] [place] [address] Social History Tobacco Use Types Packs/Day Years Used Date Smoking Tobacco: Never Assessed Sex Assigned at Date Recorded Not on file documented as of this encounter Plan of Treatment Not on filedocumented as of this encounter Visit Diagnoses Not on filedocumented in this encounter Care Teams Stopper Maker Relationship Specialty Start Date End Date Coleman Dye MD PCP - General 09/27/1012/19 documented as of this encounter
--- OUTSIDE RECORDS SUMMARY | 2022-04-05 15:46 | XMS_ITS | Encounter Summary ---
:1945 Author Organization [facility] Address [address] [place] [address] Care Team Providers Name Role Phone Lina Meléndez Primary Care Provider Rhoda Sarabia I Unavailable Encounter Details Date Type Department Care Team Description 03/31/2022 Travel Social History Tobacco Use Types Packs/Day Years Used Date Smoking Tobacco: Never Assessed Sex Assigned at Date Recorded Female 02/24/2020 11:40 AM CDT COVID-19 Exposure Response Date Recorded In the last 10 days, have you been in contact with No / Unsu re 03/31/2022 7:07 AM CDT someone who was confirmed or suspected to have Coronavirus/COVID-19? documented as of this encounter Plan of Treatment Not on filedocumented as of this encounter Visit Diagnoses Not on filedocumented in this encounter Care Teams Litigator Relationship Specialty Start Date End Date Lina Meléndez PCP - General Internal Medicine 12/26/14 [facility] [address] [place] [address] Rhoda Sarabia I Geophysical Party Chief Dietitian, Registered 02/20/[address] [id number] documented as of this encounter
--- OUTSIDE RECORDS SUMMARY | 2022-04-05 15:46 | XMS_ITS | Encounter Summary ---
:1945 Author Organization [facility] Address [address], [place] [address] Care Team Providers Name Role Phone Coleman Dye MD Primary Care Provider Unavailable Encounter Details Date Type Department Care Team Description 06/11/2004 Office Visit [facility] Navneet Campos MD [address] [facility] [address] [place], [place] [address] [place] [address] (Wo rk) Social History Tobacco Use Types Packs/Day Years Used Date Smoking Tobacco: Never Assessed Sex Assigned at Date Recorded Not on file documented as of this encounter Progress Notes Navneet Campos MD - 06/11/2004 12:01 AM CST Progress Notes signed by Navneet Campos MD at 06/13/042016 Author: Navneet Campos MD Service: (none) Author Type: Physician Filed: 10/15/10 0206 Note Time: 06/11/04 0001 Status: Signed Plumber Cub: Navneet Campos MD (Physician) NAME: MARYAM CORTEZ MR: [id number] ACCT: [id number] VISIT: [id number] DICTATING CLINICIAN: NAVNEET CAMPOS MD JOB: [id number] CLINIC PROGRESS NOTE DATE OF VISIT: 06/11/2004 SUBJECTIVE: Maryam is now 4 months out from right total knee arthroplasty. She is very pleased with her progress. She said she has not been doing much in the way of exercise because things have been going well. She has only been on her exercise bike occasionally. She apparently has a dental infection under a crown and she is scheduled to have this taken care in mid-June. She was on a 10 day course of amoxicillin. She said she talked to her dentist about it but he did not re-prescribe for her. She asked whether than could be done. OBJECTIVE: Exam of her knee today shows no evidence of redness or warmth. There is some mild diffuse swelling. She can flex her knee to 100 degrees and has full extension. Good overall alignment. ASSESSMENT: Good function 4 months post total knee arthroplasty. PLAN: I am somewhat uncomfortable having her have an active infection and not have coverage. I wrote her for another 10 day supple of amoxicillin. I have instructed her to call me immediately if there is any change in the status of her knee and in particular if it gets red or warm she should report to me immediately. I told her I would be out of town the first week in June and that she should call our supervisor operationson call if that were to occur. Certainly at this point there is no clinical evidence of any problem with her knee. PRD:[id number] C: 06/11/04 12:20 DOCUMENT: [id number] [employer]ESSION[employer] documented in this encounter Plan of Treatment Not on filedocumented as of this encounter Visit Diagnoses Not on filedocumented in this encounter Care Teams Security Officer Relationship Specialty Start Date End Date Coleman Dye MD PCP - General 09/27/1012/19 documented as of this encounter
--- OUTSIDE RECORDS SUMMARY | 2022-04-05 15:46 | XMS_ITS | Encounter Summary ---
:1945 Author Organization [facility] Address [address] [place] [id number] Care Team Providers Name Role Phone Unassigned, Provider Primary Care Provider Unavailable Encounter Details Date Type Department Care Team Description 05/03/2007 - Hospital Encounter Mandaeism Navneet Campos MD [address] [facility] [address] [place] [phone] 05/06/2007 [id number] Navneet Campos MD [address] [facility] [address] [place] [phone] radha [address] [facility] [place] [address] Social History Tobacco Use Types Packs/Day Years Used Date Smoking Tobacco: Never Assessed Sex Assigned at Date Recorded Not on file documented as of this encounter Last Filed Vital Signs Vital Sign Reading Time Taken Comments Blood Pressure 110/70 05/06/2007 7:00 AM DOCUMENTATION CONSULTANT Pulse 95 05/06/2007 7:00 AM DOCUMENTATION CONSULTANT Temperature 36.2 ??C (97.2 ??F) 05/06/2007 7:00 AM ORAL C: 9 7.2 F DOCUMENTATION CONSULTANT Respiratory Rate 16 05/06/2007 7:00 AM DOCUMENTATION CONSULTANT Oxygen Saturation 98% 05/05/2007 11:20 PM DOCUMENTATION CONSULTANT Inhaled Oxygen Concentration - - Weight - - Height - - Body Mass Index - - documented in this encounter Discharge Summaries Duke Chin MD - 05/06/2007 12:01 AM CST Discharge Summaries signed by Duke Chin MD at 05/08/07 1152 Author: Duke Chin MD Service: (none) Author Type: Physician Filed: 10/15/10 6981 Note Time: 05/06/07 1039 Status: Signed Telescope Operator: Duke Chin MD (Physician) NAME: MARYAM CRISOSTOMO MR#: [id number] ACCT: [id number] AUTHENTICATING CLINICIAN: DUKE CHIN MD JOB: [id number] LOC: 1 HOSPITAL DISCHARGE SUMMARY DATE OF ADMISSION: 05/03/07. DATE OF DISCHARGE: 05/06/07. ADMITTING DIAGNOSIS: DISCHARGE DIAGNOSIS: Successful left total knee arthroplasty. Type 2 diabetes. Post-op anemia. HISTORY: A 61-year-old admitted for elective left total knee arthroplasty with Dr. Campos. PAST MEDICAL PROBLEM LIST: Includes type 2 diabetes OA. Hyperlipidemia. History of colon polyp. History of cervical fusion of the spine. History of previous right total knee arthroplasty a couple years ago. Previous hysterectomy and carpal tunnel release. MEDS AT ADMISSION: Included pravastatin 20 mg daily, Prevacid 15 mg daily, Diovan 80 mg daily, Glipizide XL 10 mg b.i.d., metformin 500 mg 2 tabs b.i.d., Effexor XR 150 mg daily, Byetta 250 mcg injection b.i.d. and Lantus 18 units at bedtime. DRUG ALLERGIES: SULFA AND CODEINE. FAMILY HISTORY: Positive for diabetes. HOSPITAL COURSE: She did quite well. There were no postop complications. She was successful in her rehab, and will be discharged. Hospital course uncomplicated. She did develop mild anemia post surgery, hemoglobin down to 8.5. Patient was not feeling symptomatic and declined a blood transfusion. Her blood sugar control a little michelle postop, ranging between 180-300, but gradually improving. DISCHARGE MEDICATIONS: Same as admission meds, with the addition of Lovenox for 5 more days, Vicodin p.r.n. CONDITION ON DISCHARGE/INSTRUCTIONS: CC: DR. COREY WILSON [facility]:[id number] C: 05/08/07 10:59 DOCUMENT: [id number] MENTATION CONSULTANT Alisa Parikh MD - 05/06/2007 12:01 AM CST Discharge Summaries signed by Alisa Parikh MD at 05/09/07 5263 Author: Alisa Parikh MD Service: (none) Author Type: Physician Filed: 10/15/10 5591 Note Time: 05/06/07854 Status: Signed Telescope Operator: Alisa Parikh MD (Physician) NAME: MARYAM CRISOSTOMO MR#: [id number] ACCT: [id number] AUTHENTICATING CLINICIAN: ALISA PARIKH MD JOB: [id number] LOC: 1 HOSPITAL DISCHARGE SUMMARY DATE OF ADMISSION: 05/03/07. DATE OF DISCHARGE: 05/06/07. ADMITTING DIAGNOSIS: DISCHARGE DIAGNOSIS: Degenerative joint disease of the left knee status post total knee arthroplasty by Dr. Navneet Campos. HISTORY: Maryam Crisostomo is a 61-year-old female with diabetes and degenerative joint disease of the left knee who comes to Dr. Navneet Campos for elective total knee arthroplasty. HOSPITAL COURSE: The patient was brought to the operating room on 05/03/07 for a total knee arthroplasty. I would ask that the reader reference Dr. Campos's operative note for further details. Postoperatively, the patient did well progressing through physical therapy remaining afebrile with normal vital signs throughout her hospital course. THERMOSTAT MACHINE TENDER was discontinued on postoperative day #2. IVs were pulled on postoperative day #1. Dressing was changed on postoperative day #2 and found to be clean, dry and intact. On the day of discharge she was afebrile, taking p.o. medications and food well, had passed physical therapy, her dressing had been changed and the incision was clean, dry and intact, and she was able to perform a straight-leg raise. She will be discharged to home with the following medications and discharge instructions. DISCHARGE MEDICATIONS: Lovenox 40 mg subcu daily x2 weeks, Vicodin 1-2 p.o. q.4-6 p.r.n. CONDITION ON DISCHARGE/INSTRUCTIONS: Follow up with Dr. Navneet Campos or Carlo Frank on 05/15/07 for clinical recheck. Physical therapy orders were given, and a prescription was given as well. No further instructions. MRW:[id number] C: 05/08/07 10:03 DOCUMENT: [id number] MENTATION CONSULTANT documented in this encounter Medications at Time of Discharge Medication Sig Dispensed Refills Start Date End Date insulin glargine (AKA Inject 18 Units 0 7 LANTUS) 100 UNIT/ML subcutaneously nightly. injection LW Comment:info per pt, Dr.Tom Wilson amoxicillin (AKA Take 1 tablet by mouth 30 0 005 06/22/2011 AMOXIL) 500 MG tablet 3 times daily. exenatide (AKA BYETTA) Inject 10 mcg 3 0 05/02/2007 06/22/2011 10 MCG/0.04ML SOPN subcutaneously 2 times injection daily. LW Comment:info per pt, Dr. Corey Wilson LW Addl Instr:Indicated: for diabetes glipiZIDE XL (AKA Take 1 tablet by mouth 90 3 200606/22/2011 GLUCOTROL XL) 10 MG 24 2 times daily. LW hour release tablet Comment:info per pt, Dr.T Villalta LW Addl Instr:Do not cut/crush/chew. Indicated for: Diabetes lansoprazole (AKA Take 1 capsule by mouth 90 3 05/0207/16/2019 PREVACID) 15 MG daily (every 24 hours). capsule LW Comment:info per pt, ord Dr Sincere SMITH Addl Instr:Indicated for: Acid Reflux metFORMIN (AKA Take 2 tablets by mouth 3 05/02/20 07 07/16/2019 GLUCOPHAGE) 500 MG 2 times daily. LW tablet Comment:info per pt, ord Eddie SMITH Addl Instr:Take with meals. Indicated for: Diabetes pravastatin (AKA Take 1 tablet by mouth 45 3 007 07/16/2019 PRAVACHOL) 20 MG daily (every 24 hours). tablet LW Comment:info per pt, ord Dr Sincere SMITH Addl Instr:Indicated for: High Cholesterol unknown medication Indications: PN: 0 05/02/2007 07/16/2019 valsartan (AKA DIOVAN) Take 1 tablet by mouth 90 3 1 07/02/2006 07/16/2019 80 MG tablet daily (every 24 hours). LW Comment:info per pt,ord Dr. Sincere Wilson LW Addl Instr:Indicated for: High Blood Pressure venlafaxine (AKA Take 1 capsule by mouth 30 12 200607/16/2019 EFFEXOR XR) 150 MG 24 daily (every 24 hours). hour release capsule LW Comment:info per pt, ord Dr.Tom Cheung LW Addl Instr:Take with food. May sprinkle on applesauce. Do not cut/crush/chew. Indicated for: Depression documented as of this encounter Procedure Notes Navneet Campos MD - 05/03/2007 12:01 AM CST OR Surgeon signed by Navneet Campos MD at 05/04/07 0710 Author: Navneet Campos MD Service: (none) Author Type: Physician Filed: 10/15/10 1028 Note Time: 05/03/07 1700 Status: Signed Telescope Operator: Navneet Campos MD (Physician) NAME: MARYAM CRISOSTOMO MR#: [id number] ACCT: [id number] AUTHENTICATING CLINICIAN: NAVNEET CAMPOS MD JOB: [id number] LOC: 1 OPERATIVE REPORT : 1945 DATE OF OPERATION: 05/03/07 INDICATIONS FOR PROCEDURE: The patient is a 61-year-old female with a history of bilateral degenerative arthritis of the knees. She has undergone a previous right total knee arthroplasty approximately 3 years ago with satisfactory results. She has had progressive pain and restrictions on her activities of daily living because of her left knee. PREOPERATIVE DIAGNOSIS: Degenerative disease left knee. POSTOPERATIVE DIAGNOSIS: Degenerative disease left knee. PROCEDURE PERFORMED: Left total knee arthroplasty with [employer] Triathlon cemented components, size 3 posterior stabilized femur, #3 tibia, 13 mm spacer, 32 mm asymmetric patella. SURGEON: NAVNEET CAMPOS MD INFORMATION SYSTEMS PROFESSOR: CANDE Stafford ANESTHESIA: Subarachnoid block, plus femoral nerve block. TOURNIQUET TIME: 94 minutes. BLOOD LOSS: Minimal. FLUIDS: 1600 mL Crystalloid. DRAINS: Constavac drain and Sims catheter. SPONGE AND NEEDLE COUNT: Correct. COMPLICATIONS: None apparent. FINDINGS: Severe end-stage degenerative arthritis of all surfaces of the knee with an unusual darkening of the articular cartilage, particularly at the margins of the femoral condyles. Erosive changes of the medial tibial plateau. DESCRIPTION OF OPERATION: After written, informed consent was obtained a femoral nerve block was placed in the holding room. The patient was transferred to the operating room where a subarachnoid block was placed. She was positioned supine on the table. A Sims catheter was placed. A tourniquet was placed on the left thigh. Thigh length CARLA stocking and PlexiPulse boot were present on the right leg. Preoperative antibiotics administered. The left leg was then prepped and draped in the usual sterile fashion. The leg was exsanguinated with a Aden bandage and the tourniquet inflated to 300 mmHg. A midline incision was made beginning at the superior pole of the patella and extending to the tibial tubercle. This was carried down through skin and into subcutaneous tissue. Bleeding vessels cauterized. Skin flaps created. A medial parapatellar arthrotomy was performed. Infrapatellar fat pad was removed. A synovectomy was performed in the suprapatellar pouch. Retractors were placed and these large circumferential osteophytes were removed. The patella measured 22 mm in thickness. A 1 cm wafer was then removed utilizing the oscillating saw. The patella sized to 32 mm and drill holes were made. The trial fit nicely. This was removed and the patella protector placed. Retractors were once again placed medially and lateral and the knee flexed and anterior cruciate ligament sharply excised. A drill hole was made in the distal femur and the intramedullary based distal femoral cutting guide was positioned; 10 mm were taken off the distal femur. The proximal tibia was then exposed and a single pronged retractor placed posterior and the tibia retracted anteriorly. The extramedullary guide was then placed and we set the stylus at 4 mm below the deficient most portion of the medial tibial plateau. The tibial cut was then made. In the process of making the tibial cut the posterior cruciate ligament was attached to the cut fragment. The tibia sized to a #3. We then flexed the knee and placed the distal femoral sizing guide on the cut surface and held it in placed with pins. It sized to a #3. The #3 cutting block was then placed after drill holes were placed with 3 degrees external rotation. The 4 in 1 cutting block was held with pins and all 4 cuts were made. We then placed the posterior stabilized cutting jig on and used this to make a box cut. In the process of doing so a nondisplaced fracture of the medial femoral condyle was noted and great care was taken to protect this throughout the case. There were no further problems with this area. The #3 trial was placed along with a #3 tibial trial and an 11 mm spacer. Rotational alignment of the tibia was marked. The trials were removed and then the tibial tray placed back on the cut surface and held with pins and the keel cut was made. All trial components were removed. A batch of cement was mixed while the cut surfaces were cleansed with a pulse lavage. Once the cement reached proper consistency we cemented the components beginning with the tibia, followed by the femur and then the patella. Excess cement was removed. A 13 mm trial spacer was placed while the knee was brought into extension to compress the components as cement hardened. After the cement hardened the trial was removed and we removed cement from around the baseplate. I was then satisfied with the soft tissue balance and range of motion with a 13 mm spacer and the final 13 mm spacer was impacted and locked into the tray. The tourniquet was then deflated. A Constavac drain was placed. The arthrotomy was repaired with #1 Vicryl. Subcutaneous tissue closed with 2-0 Vicryl and the skin closed with skin nahomy. Sterile dressings were placed and held in place with a long leg CARLA stocking. An eZY-WRAP ice pack was placed, followed by a knee immobilizer. The patient was then transported to the postanesthesia recovery area in satisfactory condition. PRD:[id number] C: 05/04/07 05:38 DOCUMENT: [id number] MENTATION CONSULTANT documented in this encounter Miscellaneous Notes Miscellaneous - Navneet Campos MD - 05/06/2007 12:01 AM CST ICD-9-CM ICD-9-CM Narrative description Code ======== DIAGNOSES Principal: OSTEOARTHROS NOS-L/LEG 715.96 Secondary: AC POSTHEMORRHAG ANEMIA 285.1 DIABETES MELLITUS W/O MENTION COMPL TYPE II 250.00 HYPERTENSION NOS 401.9 HYPERLIPIDEMIA NEC/NOS 272.4 ASTHMA, UNSPECIFIED 493.90 ESOPHAGEAL REFLUX 530.81 LUMBAGO 724.2 DEPRESSIVE DISORDER NEC 311 PERSONAL HISTORY OF COLONIC POLYPS V12.72 ARTHRODESIS STATUS V45.4 KNEE JOINT REPLACEMENT STATUS V43.65 PROCEDURES Provider1 Date Principal: TOTAL KNEE REPLACEMENT ALISA PARIKH [id number] 81.54 Provider2: Provider3: ANNE PICKENS MENTATION CONSULTANT documented in this encounter Plan of Treatment Not on filedocumented as of this encounter Procedures Procedure Name Priority Date/Time Associated Comments Diagnosis BEDSIDE GLUCOSE Routine 05/06/2007 11:51 Results for this MONITOR POCT AM DOCUMENTATION CONSULTANT procedure are i n the results section. BEDSIDE GLUCOSE Routine 05/06/2007 7:03 AM Result s for this MONITOR POCT DOCUMENTATION CONSULTANT procedure are i n the results section. BEDSIDE GLUCOSE Routine 05/05/2007 9:37 PM Result s for this MONITOR POCT DOCUMENTATION CONSULTANT procedure are i n the results section. BEDSIDE GLUCOSE Routine 05/05/2007 5:09 PM Result s for this MONITOR POCT DOCUMENTATION CONSULTANT procedure are i n the results section. BEDSIDE GLUCOSE Routine 05/05/2007 12:04 Results for this MONITOR POCT PM DOCUMENTATION CONSULTANT procedure are i n the results section. BEDSIDE GLUCOSE Routine 05/05/2007 7:31 AM Result s for this MONITOR POCT DOCUMENTATION CONSULTANT procedure are i n the results section. ELECTROLYTES (NA, K, Routine 05/05/2007 6:50 AM R esults for this CL, BICARB) DOCUMENTATION CONSULTANT procedure are i n the results section. CREATININE / GFR Routine 05/05/2007 6:50 AM Resul ts for this DOCUMENTATION CONSULTANT procedure are i n the results section. HEMOGLOBIN, BLOOD Routine 05/05/2007 6:50 AM Resu lts for this DOCUMENTATION CONSULTANT procedure are i n the results section. BUN Routine 05/05/2007 6:50 AM Results f or this DOCUMENTATION CONSULTANT procedure are i n the results section. BEDSIDE GLUCOSE Routine 05/04/2007 9:57 PM Result s for this MONITOR POCT DOCUMENTATION CONSULTANT procedure are i n the results section. BEDSIDE GLUCOSE Routine 05/04/2007 4:51 PM Result s for this MONITOR POCT DOCUMENTATION CONSULTANT procedure are i n the results section. BEDSIDE GLUCOSE Routine 05/04/2007 11:08 Results for this MONITOR POCT AM DOCUMENTATION CONSULTANT procedure are i n the results section. HEMOGLOBIN, BLOOD Routine 05/04/2007 7:35 AM Resu lts for this DOCUMENTATION CONSULTANT procedure are i n the results section. BEDSIDE GLUCOSE Routine 05/04/2007 6:51 AM Result s for this MONITOR POCT DOCUMENTATION CONSULTANT procedure are i n the results section. BEDSIDE GLUCOSE Routine 05/03/2007 9:54 PM Result s for this MONITOR POCT DOCUMENTATION CONSULTANT procedure are i n the results section. XR KNEE LT AP AND Routine 05/03/2007 5:26 PM Resu lts for this LATERAL DOCUMENTATION CONSULTANT procedure are i n the results section. BEDSIDE GLUCOSE Routine 05/03/2007 5:13 PM Result s for this MONITOR POCT DOCUMENTATION CONSULTANT procedure are i n the results section. BEDSIDE GLUCOSE Routine 05/03/2007 2:52 PM Result s for this MONITOR POCT DOCUMENTATION CONSULTANT procedure are i n the results section. BEDSIDE GLUCOSE Routine 05/03/2007 11:58 Results for this MONITOR POCT AM DOCUMENTATION CONSULTANT procedure are i n the results section. MRSA CULTURE Routine 05/03/2007 11:30 Results for this AM DOCUMENTATION CONSULTANT procedure are i n the results section. documented in this encounter Results Bedside Glucose Monitor (05/06/2007 11:51 AM DOCUMENTATION CONSULTANT) P athologist Signature Bedside Blood 126 mg/dL HP CONVERSION Glucose Test Blood Glucose * No normal HP CONVERSION Screen, range Comment 1 Blood Glucose * No normal HP CONVERSION Screen, range Comment 2 Blood Glucose * No normal HP CONVERSION Screen, range Comment 3 Specimen (Source) Anatomical Collection Method Collection Time Re ceived Time Location / / Volume Laterality 05/06/2007 11:51 AM DOCUMENTATION CONSULTANT Navneet Campos MD LAB_1 Performing Organization Address City/State/ZIP Code Phon e Number HP CONVERSION Bedside Glucose Monitor (05/06/2007 7:03 AM DOCUMENTATION CONSULTANT) P athologist Signature Bedside Blood 181 mg/dL HP CONVERSION Glucose Test Blood Glucose * No normal HP CONVERSION Screen, range Comment 1 Blood Glucose * No normal HP CONVERSION Screen, range Comment 2 Blood Glucose * No normal HP CONVERSION Screen, range Comment 3 Specimen (Source) Anatomical Collection Method Collection Time Re ceived Time Location / / Volume Laterality 05/06/2007 7:03 AM DOCUMENTATION CONSULTANT Navneet Campos MD LAB_1 Performing Organization Address City/State/ZIP Code Phon e Number HP CONVERSION Bedside Glucose Monitor (05/05/2007 9:37 PM DOCUMENTATION CONSULTANT) P athologist Signature Bedside Blood 131 mg/dL HP CONVERSION Glucose Test Blood Glucose * No normal HP CONVERSION Screen, range Comment 1 Blood Glucose * No normal HP CONVERSION Screen, range Comment 2 Blood Glucose * No normal HP CONVERSION Screen, range Comment 3 Specimen (Source) Anatomical Collection Method Collection Time Re ceived Time Location / / Volume Laterality 05/05/2007 9:37 PM DOCUMENTATION CONSULTANT Navneet Campos MD LAB_1 Performing Organization Address City/State/ZIP Code Phon e Number HP CONVERSION Bedside Glucose Monitor (05/05/2007 5:09 PM DOCUMENTATION CONSULTANT) athologist Signature Bedside Blood 210 mg/dL HP CONVERSION Glucose Test Blood Glucose * No normal HP CONVERSION Screen, range Comment 1 Blood Glucose * No normal HP CONVERSION Screen, range Comment 2 Blood Glucose * No normal HP CONVERSION Screen, range Comment 3 Specimen (Source) Anatomical Collection Method Collection Time Re ceived Time Location / / Volume Laterality 05/05/2007 5:09 PM DOCUMENTATION CONSULTANT Navneet Campos MD LAB_1 Performing Organization Address City/[facility]/ZIP Code Phon e Number HP CONVERSION Bedside Glucose Monitor (05/05/2007 12:04 PM DOCUMENTATION CONSULTANT) athologist Signature Bedside Blood 179 mg/dL HP CONVERSION Glucose Test Blood Glucose * No normal HP CONVERSION Screen, range Comment 1 Blood Glucose * No normal HP CONVERSION Screen, range Comment 2 Blood Glucose * No normal HP CONVERSION Screen, range Comment 3 Specimen (Source) Anatomical Collection Method Collection Time Re ceived Time Location / / Volume Laterality 05/05/2007 12:04 PM DOCUMENTATION CONSULTANT Navneet Campos MD LAB_1 Performing Organization Address City/State/ZIP Code Phon e Number HP CONVERSION Bedside Glucose Monitor (05/05/2007 7:31 AM DOCUMENTATION CONSULTANT) P athologist Signature Bedside Blood 245 mg/dL HP CONVERSION Glucose Test Blood Glucose * No normal HP CONVERSION Screen, range Comment 1 Blood Glucose * No normal HP CONVERSION Screen, range Comment 2 Blood Glucose * No normal HP CONVERSION Screen, range Comment 3 Specimen (Source) Anatomical Collection Method Collection Time Re ceived Time Location / / Volume Laterality 05/05/2007 7:31 AM DOCUMENTATION CONSULTANT Navneet Campos MD LAB_1 Performing Organization Address City/[facility] Code Phon e Number HP CONVERSION (ABNORMAL) Hemoglobin, Blood (05/05/2007 6:50 AM DOCUMENTATION CONSULTANT) athologist Signature Hemoglobin 8.5 (L) 11.8 - 15.5 HP CONVERSION gm/dL Specimen (Source) Anatomical Collection Method Collection Time Re ceived Time Location / / Volume Laterality 05/05/2007 6:50 AM DOCUMENTATION CONSULTANT Navneet Campos MD LAB_1 Performing Organization Address City/[facility] Phon e Number HP CONVERSION (ABNORMAL) Electrolytes (NA, K, CL, Bicarb) (05/05/2007 6:50 AM DOCUMENTATION CONSULTANT) athologist Signature Sodium 135 (L) 137 - 147 HP CONVERSION mEq/L Potassium 4.2 3.5 - 5.2 HP CONVERSION mEq/L Chloride 104 98 - 110 HP CONVERSION mEq/L Bicarbonate 29 23 - 33 HP CONVERSION mmol/L Specimen (Source) Anatomical Collection Method Collection Time Re ceived Time Location / / Volume Laterality 05/05/2007 6:50 AM DOCUMENTATION CONSULTANT Lucy Odell MD LAB_1 Performing Organization Address City/[facility] Code Phon e Number HP CONVERSION BUN (05/05/2007 6:50 AM DOCUMENTATION CONSULTANT) athologist Signature Blood Urea 14 5 - 26 HP CONVERSION Nitrogen mg/dL Specimen (Source) Anatomical Collection Method Collection Time Re ceived Time Location / / Volume Laterality 05/05/2007 6:50 AM DOCUMENTATION CONSULTANT Lucy Odell MD LAB_1 Performing Organization Address City/[facility] Code Phon e Number HP CONVERSION Creatinine / GFR (05/05/2007 6:50 AM DOCUMENTATION CONSULTANT) athologist Signature Creatinine 0.7 0.4 - 1.3 HP CONVERSION Serum mg/dL Est GFR >60 >60 HP CONVERSION Am Est GFR Non-Afr >60 >60 HP CONVERSION Am Comment: -[place] [employer] n reference range units: mL/min/1.73m2 Normal>60, moderate decrease 30 - 59, se terri decrease 15 - 29, renal failure <15 mL/min/1.73 m2 Specimen (Source) Anatomical Collection Method Collection Time Re ceived Time Location / / Volume Laterality 05/05/2007 6:50 AM DOCUMENTATION CONSULTANT Lucy Odell MD LAB_1 Performing Organization Address [facility] Code Phon e Number HP CONVERSION Bedside Glucose Monitor (05/04/2007 9:57 PM DOCUMENTATION CONSULTANT) athologist Signature Bedside Blood 235 mg/dL HP CONVERSION Glucose Test Blood Glucose * No normal HP CONVERSION Screen, range Comment 1 Blood Glucose * No normal HP CONVERSION Screen, range Comment 2 Blood Glucose * No normal HP CONVERSION Screen, range Comment 3 Specimen (Source) Anatomical Collection Method Collection Time Re ceived Time Location / / Volume Laterality 05/04/2007 9:57 PM DOCUMENTATION CONSULTANT Navneet Campos MD LAB_1 Performing Organization Address [facility] Phon e Number HP CONVERSION Bedside Glucose Monitor (05/04/2007 4:51 PM DOCUMENTATION CONSULTANT) athologist Signature Bedside Blood 346 mg/dL HP CONVERSION Glucose Test Blood Glucose * No normal HP CONVERSION Screen, range Comment 1 Blood Glucose * No normal HP CONVERSION Screen, range Comment 2 Blood Glucose * No normal HP CONVERSION Screen, range Comment 3 Specimen (Source) Anatomical Collection Method Collection Time Re ceived Time Location / / Volume Laterality 05/04/2007 4:51 PM DOCUMENTATION CONSULTANT Navneet Campos MD LAB_1 Performing Organization Address [facility] [facility] Code Phon e Number HP CONVERSION Bedside Glucose Monitor (05/04/2007 11:08 AM DOCUMENTATION CONSULTANT) athologist Signature Bedside Blood 283 mg/dL HP CONVERSION Glucose Test Blood Glucose * No normal HP CONVERSION Screen, range Comment 1 Blood Glucose * No normal HP CONVERSION Screen, range Comment 2 Blood Glucose * No normal HP CONVERSION Screen, range Comment 3 Specimen (Source) Anatomical Collection Method Collection Time Re ceived Time Location / / Volume Laterality 05/04/2007 11:08 AM DOCUMENTATION CONSULTANT Navneet Campos MD LAB_1 Performing Organization Address [facility] Phon e Number HP CONVERSION (ABNORMAL) Hemoglobin, Blood (05/04/2007 7:35 AM DOCUMENTATION CONSULTANT) athologist Signature Hemoglobin 8.9 (L) 11.8 - 15.5 HP CONVERSION gm/dL Specimen (Source) Anatomical Collection Method Collection Time Re ceived Time Location / / Volume Laterality 05/04/2007 7:35 AM DOCUMENTATION CONSULTANT Navneet Campos MD LAB_1 Performing Organization Address [facility] Phon e Number HP CONVERSION Bedside Glucose Monitor (05/04/2007 6:51 AM DOCUMENTATION CONSULTANT) P athologist Signature Bedside Blood 189 mg/dL HP CONVERSION Glucose Test Blood Glucose * No normal HP CONVERSION Screen, range Comment 1 Blood Glucose * No normal HP CONVERSION Screen, range Comment 2 Blood Glucose * No normal HP CONVERSION Screen, range Comment 3 Specimen (Source) Anatomical Collection Method Collection Time Re ceived Time Location / / Volume Laterality 05/04/2007 6:51 AM DOCUMENTATION CONSULTANT Navneet Campos MD LAB_1 Performing Organization Address [facility] Phon e Number HP CONVERSION Bedside Glucose Monitor (05/03/2007 9:54 PM DOCUMENTATION CONSULTANT) P athologist Signature Bedside Blood 299 mg/dL HP CONVERSION Glucose Test Blood Glucose * No normal HP CONVERSION Screen, range Comment 1 Blood Glucose * No normal HP CONVERSION Screen, range Comment 2 Blood Glucose * No normal HP CONVERSION Screen, range Comment 3 Specimen (Source) Anatomical Collection Method Collection Time Re ceived Time Location / / Volume Laterality 05/03/2007 9:54 PM DOCUMENTATION CONSULTANT Navneet Campos MD LAB_1 Performing Organization Address [facility] Phon e Number HP CONVERSION XR Knee Lt AP And Lateral (05/03/2007 5:26 PM DOCUMENTATION CONSULTANT) Anatomical Region Laterality Modality Lower Extremity, Knee Other Specimen (Source) Anatomical Location Collection Method / Collectio n Time Received Time / Laterality Volume Narrative 05/03/2007 5:26 PM DOCUMENTATION CONSULTANT COMPARISON: ??04/20/2007. FINDINGS: ??Normal alignment of the tota l knee arthroplasty. ??No fractures or dislocations. ??Skin staple s, drainage catheter, and soft-tissue lucencies compatible with re cent surgery. ??No definite retained foreign bodies. [id number] Dictating ALISA MADDEN MD Procedure Note Alisa Barrios MD - 09/01/2016Formatti ng of this note might be different from the original. COMPARISON: 04/20/2007. FINDINGS: Normal alignment of the total knee arthroplasty. No fractures or dislocations. Skin nahomy, drainage catheter, and soft-tissue lucencies compatible with re cent surgery. No definite retained foreign bodies. [id number]/rr Dictating ALISA MADDEN MD Navneet Campos MD RAD GD Bedside Glucose Monitor (05/03/2007 5:13 PM DOCUMENTATION CONSULTANT) P athologist Signature Bedside Blood 147 mg/dL HP CONVERSION Glucose Test Blood Glucose * No normal HP CONVERSION Screen, range Comment 1 Blood Glucose * No normal HP CONVERSION Screen, range Comment 2 Blood Glucose * No normal HP CONVERSION Screen, range Comment 3 Specimen (Source) Anatomical Collection Method Collection Time Re ceived Time Location / / Volume Laterality 05/03/2007 5:13 PM DOCUMENTATION CONSULTANT Navneet Campos MD LAB_1 Performing Organization Address [facility] Phon e Number HP CONVERSION Bedside Glucose Monitor (05/03/2007 2:52 PM DOCUMENTATION CONSULTANT) athologist Signature Bedside Blood 215 mg/dL HP CONVERSION Glucose Test Blood Glucose * No normal HP CONVERSION Screen, range Comment 1 Blood Glucose * No normal HP CONVERSION Screen, range Comment 2 Blood Glucose * No normal HP CONVERSION Screen, range Comment 3 Specimen (Source) Anatomical Collection Method Collection Time Re ceived Time Location / / Volume Laterality 05/03/2007 2:52 PM DOCUMENTATION CONSULTANT Navnete Campos MD LAB_1 Performing Organization Address [facility] Phon e Number HP CONVERSION Bedside Glucose Monitor (05/03/2007 11:58 AM DOCUMENTATION CONSULTANT) athologist Signature Bedside Blood 234 mg/dL HP CONVERSION Glucose Test Blood Glucose * No normal HP CONVERSION Screen, range Comment 1 Blood Glucose * No normal HP CONVERSION Screen, range Comment 2 Blood Glucose * No normal HP CONVERSION Screen, range Comment 3 Specimen (Source) Anatomical Collection Method Collection Time Re ceived Time Location / / Volume Laterality 05/03/2007 11:58 AM DOCUMENTATION CONSULTANT Navneet Campos MD LAB_1 Performing Organization Address [facility] Phon e Number HP CONVERSION MRSA Culture (05/03/2007 11:30 AM DOCUMENTATION CONSULTANT) Analysis Performed At [facility] Time Signature Culture Mrsa SEE TEXT HP CONVERSION Screen Comment: Patient: ANDRESSA, MARYAM A Culture, MRSA Screen ?Collected: ??[id number] ??[id number] Source: NEERU ? Processed: ??[id number] ??[id number] ? NEERU Final Report ------ ?[id number] ??[id number] No Methicillin resistant Staph aureus is olated. Specimen (Source) Anatomical Collection Method Collection Time Re ceived Time Location / / Volume Laterality 05/03/2007 11:30 AM DOCUMENTATION CONSULTANT Keisha Sandoval MD LAB_1 Performing Organization Address City/State/ZIP Code Phon e Number HP CONVERSION documented in this encounter Visit Diagnoses Not on filedocumented in this encounter Care Teams Casino Operations Supervisor Relationship Specialty Start Date End Date Unassigned, Provider PCP - General 08/26/00 09/26/10 [address] [place] [address] documented as of this encounter
--- OUTSIDE RECORDS SUMMARY | 2022-04-05 15:46 | XMS_ITS | Encounter Summary ---
:1945 Author Organization [facility] Address [address] [address] Care Team Providers Name Role Phone Coleman Dye MD Primary Care Provider Unavailable Encounter Details Date Type Department Care Team Description 02/10/2004 Office Visit Specialty Center [address] Iwona Frank R, OA [facility] [address] [facility] [address] [place] [address] [place], [place] [facility] Social History Tobacco Use Types Packs/Day Years Used Date Smoking Tobacco: Never Assessed Sex Assigned at Date Recorded Not on file documented as of this encounter Progress Notes John Butts - 02/10/2004 12:01 AM CDT Phone Note signed by John Butts MD at 02/25/04 1443 Author: John Butts MD Service: (none) Author Type: Physician Filed: Note Time: 02/10/04 0001 Status: Signed NAME: MARYAM CORTEZ MR: [id number] ACCT: [id number] VISIT: [id number] DICTATING CLINICIAN: JOHN BUTTS MD JOB: [id number] CLINIC PHONE CALL DATE OF PHONE CALL: 02/12/04. HISTORY: Ms. Cortez called in today stating she had some increased anterior and posterior leg discomfort of 24 to 48 hours duration. She has had some modest distal swelling, but nothing increasing. She was concerned about the possibility of a venous thrombosis. She has had no chest pain or shortness of breath. She denies personal or family history of such a problem. She has been managed on Lovenox following her total knee arthroplasty on 02/02/04 and she was seen 2 days previous to have her sutures removed. She has had no fevers or other constitutional symptoms. She states she has been somewhat inconsistent in administering heart rate anticoagulant. I told her I felt it would be reasonable for her to have a duplex ultrasound of the leg to ensure that she does not have any clot formation. She will go to a local hospital to have it done and contact us with the result. In the meantime, she will continue on her Lovenox as previously recommended. GNL:[id number] C: 02/12/04 15:17 DOCUMENT: [id number] Carlo Frank OA - 02/10/2004 12:01 AM CDT Progress Notes signed by ALTON Stafford at 02/12/04 1028 Author: ALTON Stafford Service: (none) Author Type: ORTHOPAEDIC STAINED GLASS JOINER, CERTIFIED Filed: 10/14/10 2358 Note Time: 02/10/04 0001 Status: Signed Metallography Teacher: ALTON Stafford (ORTHOPAEDIC STAINED GLASS JOINER, CERTIFIED) NAME: MARYAM CORTEZ MR: [id number] ACCT: [id number] VISIT: [id number] DICTATING CLINICIAN: MARTIR STAFFORD JOB: [id number] CLINIC PROGRESS NOTE DATE OF VISIT: 02/10/2004 SUBJECTIVE: Maryam is in today for a postop appointment following her right total knee. This was done on 02/02/[address] Navneet Rangel. OBJECTIVE: Sutures were removed today and Steri-Strips were placed over the incision site. Incision looks to be in very good condition, no redness, no swelling, healing satisfactorily. ASSESSMENT: Maryam does have a followup appointment within the next few weeks with Dr. Rangel. If there are any problems before then she will call our clinic. PLAN: See assessment. MRS:[id number] C: 02/10/04 18:53 DOCUMENT: [id number] documented in this encounter Plan of Treatment Not on filedocumented as of this encounter Visit Diagnoses Not on filedocumented in this encounter Care Teams Manager Marketing Communication Relationship Specialty Start Date End Date Coleman Dye MD PCP - General 09/27/1012/19 documented as of this encounter
--- OUTSIDE RECORDS SUMMARY | 2022-04-05 15:46 | XMS_ITS | Encounter Summary ---
:1945 Author Organization [facility] Address [address] [address] Care Team Providers Name Role Phone Coleman Dye MD Primary Care Provider Unavailable Reason for Visit Reason Comments Other Encounter Details Date Type Department Care Team Description 05/16/2007 Telephone Specialty Center [address] Rice, ROHINI [facility] [address] [place], [place] [address] Social History Tobacco Use Types Packs/Day Years Used Date Smoking Tobacco: Never Assessed Sex Assigned at Date Recorded Not on file documented as of this encounter Progress Notes Glenny Moctezuma - 05/16/2007 1:27 PM CST Phone Note filed by Glenny Moctezuma RN at 10/13/10855 Author: Glenny Moctezuma RN Service: (none) Author Type: (none) Filed: 10/13/10855 Note Time: 05/16/07 1327 Status: Signed Psychosocial Rehabilitation Counselor: [facility] Conversion Call from Maryam. 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 Had an appointment with Carlo Frank on 05/15/07, Carlo removed the nahomy. Maryam states she is doing well. Carlo states Maryam needs to see Dr. Navneet Rangel in three weeks from the surgery date which was on 05-03-07. Requesting an appointment! Can come any day, any time, any clinic. Please call with an appointment! Home# [phone], may leave a voice mail message. If this appointment can not be arranged before June 03,then Maryam is also requesting that a return to work note be faxed to [facility](Employer), attn.: Greta Browerton! Maryam will call back with the fax# Created on 16May2007 1:27pm by GLENNY MOCTEZUMA On 16May2007 1:33pm GLENNY MOCTEZUMA wrote: Call from Maryam. Fax# at [facility] is [phone]; [facility] phone# [phone]. Please call Maryam at [phone], once addressed; may leave voice mail message. Acknowledged by GLENNY MOCTEZUMA on 1:33pm On 07Aug2007 2:33pm IMANI ARREOLA wrote: Pt had appt. 2--08 Acknowledged by IMANI ARREOLA on 2:33pm BODIED WATCHMAN documented in this encounter Plan of Treatment Not on filedocumented as of this encounter Visit Diagnoses Not on filedocumented in this encounter Care Teams Plastic Molding Operator Relationship Specialty Start Date End Date Coleman Dye MD PCP - General 09/27/1012/19 documented as of this encounter
--- OUTSIDE RECORDS SUMMARY | 2022-04-05 15:46 | XMS_ITS | Encounter Summary ---
:[address] [facility] Address [address] [address] Care Team Providers Name Role Phone Coleman Dye MD Primary Care Provider Unavailable Encounter Details Date Type Department Care Team Description 12/19/2003 Office Visit [facility] Navneet Campos MD [address] [facility] [address] [place], [place] [address] [place] [address] (Wo rk) Social History Tobacco Use Types Packs/Day Years Used Date Smoking Tobacco: Never Assessed Sex Assigned at Date Recorded Not on file documented as of this encounter Progress Notes Navneet Campos MD - 12/19/2003 12:01 AM CDT Progress Notes signed by Navneet Campos MD at 12/21/03 1004 Author: Navneet Campos MD Service: (none) Author Type: Physician Filed: 10/14/10 2309 Note Time: 12/19/03 0001 Status: Signed Long Distance Billing Operator: Navneet Campos MD (Physician) NAME: MARYAM CORTEZ MR: [id number] ACCT: [id number] VISIT: [id number] DICTATING CLINICIAN: NAVNEET CAMPOS MD JOB: [id number] CLINIC PROGRESS NOTE DATE OF VISIT: 12/19/2003 SUBJECTIVE: Maryam is here for the first time in two years. I have been following her for degenerative arthritis of her knee. She said her right knee has gotten much worse. It is now keeping her awake at night. She has a lot of trouble going down stairs. She is also bothered by a mildly painful bunion on her left foot. She also complains of pain on the plantar surface of the foot in the region of the tarsal metatarsal joint. No new injury. OBJECTIVE: Exam of her foot today demonstrates a very mild bunion with a slight bursa developing over the medial eminence. She has good range of motion in the metatarsal phalangeal joint. She is tender under the plantar surface of the metatarsal phalangeal joint but still has excellent range of motion. She has a large bony spur on the dorsum of her foot through the mid foot region but it is completely nontender. Examination of her knee shows marked tenderness over the medial joint line with a varus alignment. No gross laxity noted. New x-rays were done today and compared with films done in the year 1999. There has been noticeable progression of the degenerative changes of the medial joint space with bone on bone appearance. Osteophytes are present at the patellofemoral joint and on the sunrise view there is actually a large osteophyte over the lateral side of the trochlea. The lateral joint space itself is relatively well maintained. ASSESSMENT: 1. Mildly symptomatic bunion left foot. 2. Mid foot degenerative joint disease. 3. Moderate to severe degenerative joint disease right knee. PLAN: She is interested in total knee arthroplasty. We discussed the risks and possible complications. She would like to get this done relatively soon. With respect to her foot I told her that I would be hesitant to recommend any surgical intervention since this would require effusion of the tarsal metatarsal joint and the high degree of mobility that she has now would need to require some dramatic changes for her. She was comfortable with this explanation. She will call to schedule her surgery. TOTAL OFFICE TIME: 30 minutes. COUNSELING TIME: 20 minutes. PRD:[id number] C: 12/19/03 20:10 DOCUMENT: [id number] documented in this encounter Plan of Treatment Not on filedocumented as of this encounter Visit Diagnoses Not on filedocumented in this encounter Care Teams Bunch Maker Relationship Specialty Start Date End Date Coleman Dye MD PCP - General 09/27/1012/19 documented as of this encounter
--- OUTSIDE RECORDS SUMMARY | 2022-04-05 15:46 | XMS_ITS | Encounter Summary ---
:1945 Author Organization [facility] Address [address], [place] [address] Care Team Providers Name Role Phone Coleman Dye MD Primary Care Provider Unavailable Reason for Visit Reason Comments Other Encounter Details Date Type Department Care Team Description 05/09/2007 Telephone [facility] [address] Rice LPN [facility] [address] [place], [place] [address] Social History Tobacco Use Types Packs/Day Years Used Date Smoking Tobacco: Never Assessed Sex Assigned at Date Recorded Not on file documented as of this encounter Progress Notes Carolina Joyce RN - 05/09/2007 9:39 AM CST Phone Note filed by Carolina Joyce RN at 10/13/10823 Author: Carolina Joyce RN Service: (none) Author Type: Registered Nurse Filed: 10/13/10823 Note Time: 05/09/07938 Status: Signed Pipeline Operator: Carolina Joyce RN (Registered Nurse) Patient reports took TEDS off for several hours during the day, and leg really ballooned up in the calf and thigh. She reapplied the TEDs last night. Encouraged pt to wear them and to elevate leg when at rest. Home phone [phone]. Created on 09May2007 9:39am by CAROLINA JOYCE On 09May2007 11:09am IMANI ARREOLA wrote: Thank you Acknowledged by IMANI ARREOLA on 11:09am ETUAL INVENTORY CLERK documented in this encounter Plan of Treatment Not on filedocumented as of this encounter Visit Diagnoses Not on filedocumented in this encounter Care Teams Shop Welder Relationship Specialty Start Date End Date Coleman Dye MD PCP - General 09/27/1012/19 documented as of this encounter
--- OUTSIDE RECORDS SUMMARY | 2022-04-05 15:46 | XMS_ITS | Encounter Summary ---
:1945 [facility] Address [address] [place] [address] Care Team Providers Name Role Phone Coleman Dye MD Primary Care Provider Unavailable Encounter Details Date Type Department Care Team Description 06/04/2007 Office Visit Specialty Center [address] Rodrigo Campos MD [facility] [address] [facility] [address] [facility] [address] [place] [phone] (Wo rk) Social History Tobacco Use Types Packs/Day Years Used Date Smoking Tobacco: Never Assessed Sex Assigned at Date Recorded Not on file documented as of this encounter Progress Notes Navneet Campos MD - 06/04/2007 12:01 AM CST Progress Notes signed by Navneet Campos MD at 06/05/07 1038 Author: Navneet Campos MD Service: (none) Author Type: Physician Filed: 10/15/10 2333 Note Time: 06/04/07 0001 Status: Signed Apprentice Instrument Technician: Navneet Campos MD (Physician) NAME: MARYAM CORTEZ MR#: [id number] ACCT: [id number] VISIT: [id number] DICTATING CLINICIAN: NAVNEET CAMPOS MD JOB: [id number] LOC: 211 CLINIC PROGRESS NOTE DATE OF VISIT: 06/04/2007 SUBJECTIVE: Maryam called three days ago stating that she had developed some redness around her knee and some pain down her leg, shortly after developing a tooth abscess. She had a tooth extraction and was on amoxicillin for ten days. I told her to come in that day, but she was unable to do so and so she came in today. She said she has been taking her temperature over the weekend and she as not been above 98.6 and she does not believe that she was febrile at the time that this was occurring. She said that the pain in her leg is slowly improving, but she has some difficulty at night. OBJECTIVE: On exam, there is some mild periincisional erythema, which resolves when her leg is elevated. She can flex her knee to 110 degrees and lacks about 5 degrees of extension. There is no unusual instability. There is no calf tenderness. No bony tibial tenderness. ASSESSMENT: Left leg pain, one month total knee arthroplasty. PLAN: Certainly the picture she presented was one reason for the possibility of a hematogenous infection, but her clinical exam today would certainly argue against this. I am going to have her change her follow up appointment with me until mid June, but I told her to take her temperature twice a day for the next week and to report to me if she has any fever above 100.0. PRD:[id number] C: 06/05/07 09:50 DOCUMENT: [id number] MYSQL DEVELOPER documented in this encounter Plan of Treatment Not on filedocumented as of this encounter Visit Diagnoses Not on filedocumented in this encounter Care Teams Planer Hand Relationship Specialty Start Date End Date Coleman Dye MD PCP - General 09/27/1012/19 documented as of this encounter
--- OUTSIDE RECORDS SUMMARY | 2022-04-05 15:46 | XMS_ITS | Encounter Summary ---
:1945 Author Organization [facility] Address [address] [place] [address] Care Team Providers Name Role Phone Coleman Dye MD Primary Care Provider Unavailable Encounter Details Date Type Department Care Team Description 04/20/2007 PN Conversion Only [facility] [address] [place] [address] Social History Tobacco Use Types Packs/Day Years Used Date Smoking Tobacco: Never Assessed Sex Assigned at Date Recorded Not on file documented as of this encounter Progress Notes Navneet Campos MD - 06/01/2007 12:01 AM CST Phone Note signed by Navneet Campos MD at 06/04/07 1900 Author: Navneet Campos MD Service: (none) Author Type: Physician Filed: 04/20/07 0000 Note Time: 06/01/07 0001 Status: Signed Addiction Therapist: Navneet Campos MD (Physician) NAME: MARYAM CORTEZ MR#: [id number] ACCT: VISIT: DICTATING CLINICIAN: NAVNEET CAMPOS MD JOB: [id number] LOC: 211 CLINIC PHONE CALL DATE OF PHONE CALL: 06/01/07. Maryam called, stating that she has had some increasing pain in her left knee. She underwent a left total knee arthroplasty on 05/03. This was an unremarkable surgery and she went home at 3 days. She had a followup in the Orthopedic Clinic on 05/15 and was doing well at that point. She apparently developed a dental abscess and this required dental work and antibiotics. She said that there has been increasing pain in her knee since then. She is not febrile. Her knee is not red or warm. She has had no shakes or chills. I told her that I would feel best if we could get a look at her knee. It will not be possible for her to get her from [place] prior to the time clinic closes today. I have made arrangements for her to come to the [facility] on Monday 06/04 at 9 a.m. I told her that if she has a noticeable worsening in her condition over the weekend that she should present to the [facility] Emergency Room as soon as possible. PRD:[id number] C: 06/02/07 15:38 DOCUMENT: [id number] 911 TELECOMMUNICATOR documented in this encounter Plan of Treatment Not on filedocumented as of this encounter Visit Diagnoses Not on filedocumented in this encounter Care Teams Notched Blade Loader Relationship Specialty Start Date End Date Coleman Dye MD PCP - General 09/27/1012/19 documented as of this encounter
--- OUTSIDE RECORDS SUMMARY | 2022-04-05 15:46 | XMS_ITS | Encounter Summary ---
:1945 [facility] Address [address] [address] Care Team Providers Name Role Phone Coleman Dye MD Primary Care Provider Unavailable Encounter Details Date Type Department Care Team Description 05/03/2007 PN Conversion Only OTHER CONVERSION [address] [place] [address] Social History Tobacco Use Types Packs/Day Years Used Date Smoking Tobacco: Never Assessed Sex Assigned at Date Recorded Not on file documented as of this encounter Plan of Treatment Not on filedocumented as of this encounter Visit Diagnoses Not on filedocumented in this encounter Care Teams Integration Analyst Relationship Specialty Start Date End Date Coleman Dye MD PCP - General 09/27/1012/19 documented as of this encounter
--- OUTSIDE RECORDS SUMMARY | 2022-04-05 15:46 | XMS_ITS | Encounter Summary ---
:1945 Author [facility] Address [address] [place] [address] Care Team Providers Name Role Phone Coleman Dye MD Primary Care Provider Unavailable Encounter Details Date Type Department Care Team Description 03/03/2004 Office Visit Specialty Center 3931 Rodrigo Campos MD [facility] [address] [facility] [address] [facility] [address] [place] [address] [phone] (Wo rk) Social History Tobacco Use Types Packs/Day Years Used Date Smoking Tobacco: Never Assessed Sex Assigned at Date Recorded Not on file documented as of this encounter Progress Notes Navneet Campos MD - 03/03/2004 12:01 AM CDT Progress Notes signed by Navneet Campos MD at 03/03/04 1729 Author: Navneet Campos MD Service: (none) Author Type: Physician Filed: 10/15/10 0019 Note Time: 03/03/04 0001 Status: Signed Ribbon Inker: Navneet Campos MD (Physician) NAME: MARYAM CORTEZ MR: [id number] ACCT: [id number] VISIT: [id number] DICTATING CLINICIAN: NAVNEET CAMPOS MD JOB: [id number] CLINIC PROGRESS NOTE DATE OF VISIT: 03/03/2004 SUBJECTIVE: Maryam is now one month out from right total knee arthroplasty. She is doing very well and is very pleased with her progress. She is ambulating without the use of any assistive device. OBJECTIVE: Her incision is benign. She can flex to 100 degrees and has full extension. Good patellar tracking. ASSESSMENT: Good function one month post total knee arthroplasty. PLAN: I want to see her back in two months. I have asked her to continue with her exercises. She does have a very small stitch abscess in the mid portion of the incision and I told her to put some hot packs on this and to treat it as if it were a pimple, and if there is any worsening of it she is to call me immediately. PRD:[id number] C: 03/03/04 17:04 DOCUMENT: [id number] documented in this encounter Plan of Treatment Not on filedocumented as of this encounter Visit Diagnoses Not on filedocumented in this encounter Care Teams Literacy Coordinator Relationship Specialty Start Date End Date Coleman Dye MD PCP - General 09/27/1012/19 documented as of this encounter
--- OUTSIDE RECORDS SUMMARY | 2022-04-05 15:46 | XMS_ITS | Encounter Summary ---
:1945 [facility] Address [address] [place] [address] Care Team Providers Name Role Phone Coleman Dye MD Primary Care Provider Unavailable Encounter Details Date Type Department Care Team Description 05/15/2007 Office Visit Specialty Center 3931 Iwona Frank OA [facility] 3931 [facility] [address] [place] [address] [place], [place] [facility] [phone] Social History Tobacco Use Types Packs/Day Years Used Date Smoking Tobacco: Never Assessed Sex Assigned at Date Recorded Not on file documented as of this encounter Progress Notes Carlo Frank OA - 05/15/2007 12:01 AM CST Progress Notes signed by ALTON Stafford at 05/20/07 1839 Author: ALTON Stafford Service: (none) Author Type: ORTHOPAEDIC CONSTRUCTION EQUIPMENT OPERATOR, CERTIFIED Filed: 10/15/10 3410 Note Time: 05/15/07 0001 Status: Signed Sheet Metal Fabricator: ALTON Stafford (ORTHOPAEDIC CONSTRUCTION EQUIPMENT OPERATOR, CERTIFIED) NAME: MARYAM CORTEZ MR#: [id number] ACCT: [id number] VISIT: [id number] DICTATING CLINICIAN: UMA StaffordC JOB: [id number] LOC: 211 CLINIC PROGRESS NOTE DATE OF VISIT: 05/15/2007 SUBJECTIVE: Patient is in our clinic today for a postop appointment following her left total knee arthroplasty. This was done on 05/03/[address] Navneet Rangel. OBJECTIVE: Patient's bandages are removed. Incisions look to be in very good condition. No redness, no swelling, healing adequately. Skin nahomy are removed. Steri-Strips are placed over the incision site. Patient states she is still taking quite a bit of her pain medication, but feels that she is doing very well and very pleased with the outcome of her surgery. ASSESSMENT: PLAN: She was given a follow up appointment to see Dr. Rangel in approximately 4 weeks. If she does have any problems before then, she will call our clinic. MRS:[id number] C: 05/16/07 14:10 DOCUMENT: [id number] ON REHABILITATION THERAPIST documented in this encounter Plan of Treatment Not on filedocumented as of this encounter Visit Diagnoses Not on filedocumented in this encounter Care Teams Green End Worker Relationship Specialty Start Date End Date Coleman Dye MD PCP - General 09/27/1012/19 documented as of this encounter
--- OUTSIDE RECORDS SUMMARY | 2022-04-05 15:46 | XMS_ITS | Encounter Summary ---
:1945 Author [facility] Address [address] [address] Care Team Providers Name Role Phone Coleman Dye MD Primary Care Provider Unavailable Encounter Details Date Type Department Care Team Description 08/27/2004 Office Visit [facility]pos [facility] [address] [facility] [address] [place] [address] [place] [phone] (Wo rk) Social History Tobacco Use Types Packs/Day Years Used Date Smoking Tobacco: Never Assessed Sex Assigned at Date Recorded Not on file documented as of this encounter Progress Notes Navneet Campos MD - 08/27/2004 12:01 AM CST Progress Notes signed by Navneet Campos MD at 09/05/04 1502 Author: Navneet Campos MD Service: (none) Author Type: Physician Filed: 10/15/10 0333 Note Time: 08/27/04 0001 Status: Signed Cannoneer: Navneet Campos MD (Physician) NAME: MARYAM CORTEZ MR: [id number] ACCT: [id number] VISIT: [id number] DICTATING CLINICIAN: NAVNEET CAMPOS MD JOB: [id number] CLINIC PROGRESS NOTE DATE OF VISIT: 08/27/2004 SUBJECTIVE: Maryam is being seen today because of recent increase in pain in her left knee. She has had a previous right total knee arthroplasty and she is quite pleased with her results. Her left knee was bothering her very substantially to the point where she was actually going back and using her crutches that she has had from her previous surgery. She had to be off her Voltaren for two weeks because of colonoscopy. She had a recent colonoscopy and had two polyps removed. She went back on her Voltaren yesterday and she said there was almost immediate improvement in her left knee pain. No locking or catching. The pain previously had been most noticeable on the medial side of the knee. OBJECTIVE: KNEE: Exam shows a moderate varus alignment. She can flex to about 120 degrees. She lacks a few degrees of extension. She is still moderately tender over the medial joint line. No gross laxity. RIGHT KNEE: Range of motion from 0 to 100 degrees. New x-rays were done today. Good position for the components of her right total knee arthroplasty. On the left, she has near [id number] appearance of the medial joint space with varus alignment and patellofemoral degenerative changes. ASSESSMENT: 1. Bilateral knee DJD. 2. Right total knee arthroplasty. PLAN: Since she has already had a quick response to the Voltaren, I told her that we should leave things alone and have her continue with this. She asked about getting a Hyalgan injection and I said if at some point in the future, the Voltaren's effectiveness has diminished, I would be glad to get her in for a series of Hyalgan injections. PRD:[id number] C: 08/28/04 18:01 DOCUMENT: [id number] STANT CUSTOMER SERVICE MANAGER documented in this encounter Plan of Treatment Not on filedocumented as of this encounter Procedures Procedure Name Priority Date/Time Associated Diagnosis Comme nts XR KNEE RT 3 VIEWS Routine 08/27/2004 1:09 PM Res ults for this ASSISTANT CUSTOMER SERVICE MANAGER procedure are i n the results section. XR KNEE LT 3 VIEWS Routine 08/27/2004 1:08 PM Res ults for this ASSISTANT CUSTOMER SERVICE MANAGER procedure are i n the results section. documented in this encounter Results XR Knee Rt 3 Views (08/27/2004 1:09 PM ASSISTANT CUSTOMER SERVICE MANAGER) Anatomical Region Laterality Modality Lower Extremity, Knee Other Specimen (Source) Anatomical Location Collection Method / Collectio n Time Received Time / Laterality Volume Narrative 08/27/2004 1:09 PM ASSISTANT CUSTOMER SERVICE MANAGER Upright AP, lateral, and sunrise views demonstrate a total knee arthroplasty. ??Relationship of the pros theses to the distal femur, proximal tibia, and patella are satisfac tory and unchanged when compared to the study of 02/02/04. [facility]/ [id number] Dictating LUIS GRIFFIN RADIOLOGIST Procedure Note Gina, Luis Mari - 09/01/2016 Upright AP, lateral, and sunrise views d emonstrate a total knee arthroplasty. Relationship of the prosth eses to the distal femur, proximal tibia, and patella are satisfac tory and unchanged when compared to the study of 02/02/04. [facility]/ [id number] Dictating LUIS GRIFFIN RADIOLOGIST Navneet Campos MD RAD GD XR Knee Lt 3 Views (08/27/2004 1:08 PM ASSISTANT CUSTOMER SERVICE MANAGER) Anatomical Region Laterality Modality Lower Extremity, Knee Other Specimen (Source) Anatomical Location Collection Method / Collectio n Time Received Time / Laterality Volume Narrative 08/27/2004 1:08 PM ASSISTANT CUSTOMER SERVICE MANAGER Upright AP, lateral and sunrise views demonstrate considerable narrowing of the medial compartment with spurring along the medial and lateral joint space margins. There i s some irregularity of the articular surfaces of the medial tibial plateau and medial femoral condyle. There is narrowing of the batista lar condylar joint space with spurring along the articular margins. CONCLUSION: Narrowing of the medial com partment with extensive degenerative change of the left knee. [id number] Dictating LUIS GRIFFIN RADIOLOGIST Procedure Note Gina, Luis Mari - 09/01/2016 Upright AP, lateral and sunrise views de monstrate considerable narrowing of the medial compartment with spurring along the medial and lateral joint space margins. There i s some irregularity of the articular surfaces of the medial tibial plateau and medial femoral condyle. There is narrowing of the batista lar condylar joint space with spurring along the articular margins. CONCLUSION: Narrowing of the medial com partment with extensive degenerative change of the left knee. [id number] Dictating LUIS GRIFFIN RADIOLOGIST Navneet Campos MD RAD GD documented in this encounter Visit Diagnoses Not on filedocumented in this encounter Care Teams Rate Clerk Relationship Specialty Start Date End Date Coleman Dye MD PCP - General 09/27/1012/19 documented as of this encounter
--- OUTSIDE RECORDS SUMMARY | 2022-04-05 15:46 | XMS_ITS | Encounter Summary ---
:1945 Author Organization [facility] Address [address] [place] [address] Care Team Providers Name Role Phone Lina Meléndez Primary Care Provider Rhoda Sarabia I Unavailable Encounter Details Date Type Department Care Team Description 01/16/2022 Travel Social History Tobacco Use Types Packs/Day Years Used Date Smoking Tobacco: Never Assessed Sex Assigned at Date Recorded Female 02/24/2020 11:40 AM CDT COVID-19 Exposure Response Date Recorded In the last 10 days, have you been in contact with No / Unsu re 01/16/2022 10:23 AM CDT someone who was confirmed or suspected to have Coronavirus/COVID-19? documented as of this encounter Plan of Treatment Not on filedocumented as of this encounter Visit Diagnoses Not on filedocumented in this encounter Care Teams Rotating Equipment Engineer Relationship Specialty Start Date End Date Lina Meléndez PCP - General Internal Medicine 12/26/14 [facility] [address] [place] [address] Rhoda Sarabia I Public Policy Analyst Dietitian, Registered 02/20/[address] [phone] documented as of this encounter
--- OUTSIDE RECORDS SUMMARY | 2022-04-05 15:47 | XMS_ITS | Encounter Summary ---
:1945 Author Organization [facility] Address [address] [place] [address] Care Team Providers Name Role Phone Unavailable Primary Care Provider Unavailable Reason for Visit Reason Comments Radiation Encounter Details Date Type Department Care Team Description 02/18/2022 Documentation Department of Radiation Katy Dobson I., [facility] [place] [address] [facility] [address] [place] [phone] (Wo rk) Social History Tobacco Use Types Packs/Day Years Used Date Smoking Tobacco: Never Smokeless Tobacco: Never Alcohol Use Standard Drinks/Week Comments Yes 0 (1 standard drink = 0.6 oz pure alcoho l) Very rare Alcohol Habits Answer Date Recorded How often do you have a drink containing alcohol? Monthly or less 02/12/2022 How many drinks containing alcohol do you have on a 1 or 2 02/12/2022 typical day when you are drinking? How often do you have six or more drinks on one Never 02/12/2022 occasion? Comment: Very rare 02/03/2022 Social Isolation Answer Date Recorded In a typical week, how many times do you Once a week 02/12/2022 talk on the phone with family, friends, or neighbors? How often do you get together with friends Once a week 02/12/2022 or relatives? How often do you attend anabaptist or restorationist More than 4 time s per year 02/12/2022 services? Do you belong to any clubs or organizations Yes 02/12/2022 such as anabaptist groups, unions, fraternal or athletic groups, or school groups? How often do you attend meetings of the More than 4 times pe r year 02/12/2022 clubs or organizations you belong to? Are you now , , , 02/12/2022 , never or living with a partner? Physical Activity Answer Date Recorded On average, how many days per week do you engage in moderate to 7 days 02/12/2022 strenuous exercise (like walking fast, running, jogging, dancing, swimming, biking, or other activities that cause a light or heavy sweat)? On average, how many minutes do you engage in exercise at th is 60 min 02/12/2022 level? Stress Answer Date Recorded Do you feel stress - tense, restless, nervous, or anxious, N ot at all 02/12/2022 or unable to sleep at night because your mind is troubled all the time - these days? Financial Resource Strain Answer Date Recorded How hard is it for you to pay for the very basics like [employer] hat hard 02/12/2022 food, housing, medical care, and heating? Intimate Partner Violence Answer Date Recorded Within the last year, have you been afraid of your partner o r No 02/12/2022 ex-partner? Within the last year, have you been humiliated or emotionall y No 02/12/2022 abused in other ways by your partner or ex-partner? Within the last year, have you been kicked, hit, slapped, or No 02/12/2022 otherwise physically hurt by your partner or ex-partner? Within the last year, have you been raped or forced to have any No 02/12/2022 kind of sexual activity by your partner or ex-partner? Food Insecurity Answer Date Recorded Within the past 12 months, you worried that your food would Never true 02/12/2022 run out before you got money to buy more. Within the past 12 months, the food you bought just didn't N ever true 02/12/2022 last and you didn't have money to get more. Transportation Needs Answer Date Recorded In the past 12 months, has lack of transportation kept you f rom No 02/12/2022 medical appointments or from getting medications? In the past 12 months, has lack of transportation kept you f rom No 02/12/2022 meetings, work, or getting things needed for daily living? Housing Stability Answer Date Recorded In the last 12 months, was there a time when you were not ab le No 02/12/2022 to pay the mortgage or rent on time? In the last 12 months, how many places have you lived? 1 02/12/2022 In the last 12 months, was there a time when you did not hav e a No 02/12/[address] or slept in a fdc (including now)? Education Answer Date Recorded What is the highest level of Professional school degree (e.g ., MD, 02/12/2022 school you have completed or the DDS, DVM, FALLON) highest degree you have received? Sex Assigned at Date Recorded Not on file documented as of this encounter Miscellaneous Notes Radiation Completion Notes - Tejal Guerra R.N. - 02/18/2022 11:59 PM CDT DIAGNOSIS: 1. 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 Treatment Intent: Curative Concomitant Therapy: None Single Plan Treatment Course: 1xBreastR Plan ID Fractions Dose / Fraction (cGy) Dose Treated (cGy) Dose Planned (cGy) First Treatment Last Treatment Elapsed Days [id number] 02/14/2022 02/18/2022 4 Course Summary 02/14/2022 02/18/2022 4 Radiation Modality: Photons CLINICAL SUMMARY 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 The course of treatment was tolerated well. The patient experienced toxicities of grade grade 1 fatigue and dermatitis during radiation treatment. TREATMENT RESPONSE: Response to treatment will be determined by post-treatment imaging and/or laboratory work. RECOMMENDED FOLLOW UP: Primary Medical Oncologist. Follow-up will be with [facility]; and Radiation Oncology as needed. Signed by: Tejal Guerra R.N., 03/03/2022 4:13 PM CDT [facility] [address] [place] [address] documented in this encounter Plan of Treatment Not on filedocumented as of this encounter Visit Diagnoses Not on filedocumented in this encounter
--- OUTSIDE RECORDS SUMMARY | 2022-04-05 15:47 | XMS_ITS | Encounter Summary ---
:1945 Author Organization [facility] Address [address] [place] [address] Care Team Providers Name Role Phone Lina Meléndez Primary Care Provider Frontier jessie Parrish Unavailable Encounter Details Date Type Department Care Team Description 11/19/2020 Records - [facility] YENNI CONVERSION Provider, Histor ical Social History Tobacco Use Types Packs/Day Years Used Date Smoking Tobacco: Never Assessed Sex Assigned at Date Recorded Female 02/24/2020 11:40 AM CDT documented as of this encounter Plan of Treatment Not on filedocumented as of this encounter Procedures Procedure Name Priority Date/Time Associated Diagnosis Comme nts MAMMO MISC(FCIS) Routine 04/08/2003 12:00 AM Resu lts for this ORDER CDT procedure are i n the results section. documented in this encounter Results Mammo Misc Order (04/08/2003 12:00 AM CDT) Anatomical Region Laterality Modality Other Specimen (Source) Anatomical Location Collection Method / Collectio n Time Received Time / Laterality Volume Narrative 04/08/2003 12:00 AM CDT See Historical Hospital Medical Record f or documentation Procedure Note Provider, Historical - 11/19/2020Formatt ing of this note might be different from the original. See Historical Hospital Medical Record f or documentation Historical Provider IMG MAMMOGRAPHY ORDERABLES documented in this encounter Visit Diagnoses Not on filedocumented in this encounter Care Teams Access Coordinator Relationship Specialty Start Date End Date Lina Meléndez PCP - General Internal Medicine 12/26/14 [facility] [address] [place] [address] Rhoda Sarabia I Underground Utility Locator Dietitian, Registered 02/20/[address] [place] [phone] documented as of this encounter
--- OUTSIDE RECORDS SUMMARY | 2022-04-05 15:47 | XMS_ITS ---
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 Past Plans No past plan information found. Radiation Treatments Plan Last Treated Elapsed Days Fractions Prescribed Prescribed Total On Treated Fraction Dose Dose [id number] 02/18/2022 4 5 of 5 520 cGy 2,600 cGy Reference Point Last Treated On Elapsed Days Session Dose Total Dos e [id number] 02/18/2022 4 520 cGy 2,600 cGy icru ref 02/16/2022 2 531 cGy 1,593 cGy
--- OUTSIDE RECORDS SUMMARY | 2022-04-05 15:47 | XMS_ITS | Encounter Summary ---
:1945 Author Organization [facility] Address [address] [place] [address] Care Team Providers Name Role Phone Lina Meléndez Primary Care Provider Rhoda Sarabia I Unavailable Encounter Details Date Type Department Care Team Description 11/22/2020 Records - [facility] YENNI CONVERSION Provider, Histor ical Social History Tobacco Use Types Packs/Day Years Used Date Smoking Tobacco: Never Assessed Sex Assigned at Date Recorded Female 02/24/2020 11:40 AM CDT documented as of this encounter Plan of Treatment Not on filedocumented as of this encounter Procedures Procedure Name Priority Date/Time Associated Diagnosis Comme nts IR LUMBAR EPIDURAL Routine 08/18/2006 12:00 AM Re sults for this STEROID INJECTION SUPPLY TEACHER procedure are in the results section. documented in this encounter Results IR Lumbar Epidural Steroid Injection (08/18/2006 12:00 AM SUPPLY TEACHER) Anatomical Region Laterality Modality Spine Other Specimen (Source) Anatomical Location Collection Method / Collectio n Time Received Time / Laterality Volume Narrative 08/18/2006 12:00 AM SUPPLY TEACHER See Historical Hospital Medical Record f or documentation Procedure Note Provider, Historical - 11/22/2020Formatt ing of this note might be different from the original. See Historical Hospital Medical Record f or documentation Historical Provider IMG IR ORDERABLES documented in this encounter Visit Diagnoses Not on filedocumented in this encounter Care Teams Manager Quantitative Relationship Specialty Start Date End Date Lina Meléndez PCP - General Internal Medicine 12/26/14 [facility] [address] [place] [address] Rhoda Sarabia I Underwater Photographer Dietitian, Registered 02/20/[address] [address] documented as of this encounter
--- OUTSIDE RECORDS SUMMARY | 2022-04-05 15:47 | XMS_ITS | Encounter Summary ---
:1945 Author Organization [place] Address [address] [place] [address] Care Team Providers Name Role Phone Lina Meléndez Primary Care Provider DinwiddieRhoda noe Shivani Unavailable Encounter Details Date Type Department Care Team Description 11/19/2020 Records - [facility] Provider, Histor ical Social History Tobacco Use Types Packs/Day Years Used Date Smoking Tobacco: Never Assessed Sex Assigned at Date Recorded Female 02/24/2020 11:40 AM CDT documented as of this encounter Plan of Treatment Not on filedocumented as of this encounter Procedures Procedure Name Priority Date/Time Associated Comments Diagnosis MA BREAST SPECIMEN Routine 05/09/2003 12:00 Resul ts for this AM SHOP COOPER procedure are i n the results section. MA STEREOTACTIC Routine 05/09/2003 12:00 Results for this BREAST BIOPSY RIGHT AM SHOP COOPER procedur e are in the results section. documented in this encounter Results MA BREAST SPECIMEN (05/09/2003 12:00 AM SHOP COOPER) Anatomical Region Laterality Modality Other Specimen (Source) Anatomical Location Collection Method / Collectio n Time Received Time / Laterality Volume Narrative 05/09/2003 12:00 AM SHOP COOPER See Historical Hospital Medical Record f or documentation Procedure Note Provider, Historical - 11/19/2020Formatt ing of this note might be different from the original. See Historical Hospital Medical Record f or documentation Historical Provider IMG MAMMOGRAPHY ORDERABLES MA Stereotactic Breast Biopsy, 1St Lesion Right (05/09/2003 12:00 AM SHOP COOPER) Anatomical Region Laterality Modality Breast Right Other Specimen (Source) Anatomical Location Collection Method / Collectio n Time Received Time / Laterality Volume Narrative 05/09/2003 12:00 AM SHOP COOPER See Historical Hospital Medical Record f or documentation Procedure Note Provider, Historical - 11/19/2020Formatt ing of this note might be different from the original. See Historical Hospital Medical Record f or documentation Historical Provider IMG MAMMOGRAPHY ORDERABLES documented in this encounter Visit Diagnoses Not on filedocumented in this encounter Care Teams Iron Miner Relationship Specialty Start Date End Date Lina Meléndez PCP - General Internal Medicine 12/26/14 [facility] [address] [place] [address] Rhoda Sarabia I Core Manager Dietitian, Registered 02/20/[address] [phone] documented as of this encounter
--- OUTSIDE RECORDS SUMMARY | 2022-04-05 15:47 | XMS_ITS | Encounter Summary ---
:1945 Author Organization [place] Address [address] [place] [address] Care Team Providers Name Role Phone Unavailable Primary Care Provider Unavailable Encounter Details Date Type Department Care Team Description 08/12/2009 Historic Results INTERFACED REPORT Leticia Heredia MD [facility] [address] [place], [place] [phone] (Wo rk) Social History Tobacco Use Types Packs/Day Years Used Date Smoking Tobacco: Never Assessed Sex Assigned at Date Recorded Female 02/24/2020 11:40 AM CDT documented as of this encounter Plan of Treatment Not on filedocumented as of this encounter Procedures Procedure Name Priority Date/Time Associated Diagnosis Comme nts GLUCOSE BY METER Routine 08/12/2009 1:06 PM Resul ts for this ICE SKATER procedure are i n the results section. documented in this encounter Results (ABNORMAL) Glucose by meter (08/12/2009 1:06 PM ICE SKATER) P athologist Signature Glucose 190 (H) 60 - 99 MISYS mg/dL Specimen Anatomical Collection Method Collection Time Receive d Time (Source) Location / / Volume Laterality 08/12/2009 1:06 PM 0 5:36 ICE SKATER AM ICE SKATER Meghann LEE POCT Performing Organization Address City/State/ZIP Code Phon e Number MISYS documented in this encounter Visit Diagnoses Not on filedocumented in this encounter
--- OUTSIDE RECORDS SUMMARY | 2022-04-05 15:47 | XMS_ITS | Encounter Summary ---
:1945 Author Organization [place] Address [address] [place] [address] Care Team Providers Name Role Phone Lina [...] Priority Date/Time Associated Diagnosis Comme nts MR LUMBAR SPINE W/O Routine 07/19/2006 12:00 AM R esults for this CONTRAST HAZMAT TANKER DRIVER procedure are i n the results section. documented in this encounter Results MR Lumbar Spine w/o Contrast (07/19/2006 12:00 AM HAZMAT TANKER DRIVER) Anatomical Region Laterality Modality Spine, SUBRAD MR NEURO, UMP MR SPINE, RAD MR Other Specimen (Source) Anatomical Location Collection Method / Collectio n Time Received Time / Laterality Volume Narrative 07/19/2006 12:00 AM HAZMAT TANKER DRIVER See Historical Hospital Medical Record f or documentation Procedure Note Provider, Historical - 11/22/2020Formatt ing of this note might be different from the original. See Historical Hospital Medical Record f or documentation Historical Provider IMG MRI ORDERABLES documented in this encounter Visit Diagnoses Not on filedocumented in this encounter Care Teams Alarm Field Technician Relationship Specialty Start Date End Date Lina Meléndez PCP - General Internal Medicine 12/26/14 [facility] [address] [place] [address] Rhoda Sarabia I Building And Grounds Supervisor Dietitian, Registered 02/20/[address] [place] [phone] documented as of this encounter
--- OUTSIDE RECORDS SUMMARY | 2022-04-05 15:47 | XMS_ITS | Encounter Summary ---
:1945 Author Organization [place] Address [address] [place] [address] Care Team Providers Name Role Phone Lina Meléndez Primary Care Provider GravesRhoda noe Shivani Unavailable Encounter Details Date Type Department Care Team Description 11/17/2020 Records - [facility] YENNI CONVERSION Provider, Histor ical Social History Tobacco Use Types Packs/Day Years Used Date Smoking Tobacco: Never Assessed Sex Assigned at Date Recorded Female 02/24/2020 11:40 AM CDT documented as of this encounter Plan of Treatment Not on filedocumented as of this encounter Procedures Procedure Name Priority Date/Time Associated Diagnosis Comme nts US MISC(FCIS) US Routine 07/14/2000 12:00 AM Resu lts for this ORDER PIPE FITTER SUPERVISOR procedure are i n the results section. documented in this encounter Results US Miscellaneous US Order (07/14/2000 12:00 AM PIPE FITTER SUPERVISOR) Anatomical Region Laterality Modality Other Specimen (Source) Anatomical Location Collection Method / Collectio n Time Received Time / Laterality Volume Narrative 07/14/2000 12:00 AM PIPE FITTER SUPERVISOR See Historical Hospital Medical Record f or documentation Procedure Note Provider, Historical - 11/17/2020Formatt ing of this note might be different from the original. See Historical Hospital Medical Record f or documentation Historical Provider IMG US ORDERABLES documented in this encounter Visit Diagnoses Not on filedocumented in this encounter Care Teams End User Support Specialist Relationship Specialty Start Date End Date Lina Meléndez PCP - General Internal Medicine 12/26/14 [facility] [address] [place], [place] [phone] Rhoda Sarabia I Professional Development Director Dietitian, Registered 02/20/[address] [place] [phone] documented as of this encounter
--- OUTSIDE RECORDS SUMMARY | 2022-04-05 15:47 | XMS_ITS | Encounter Summary ---
:1945 Author Organization [place] Address [address] [place] [address] Care Team Providers Name Role Phone Lina Meléndez Primary Care Provider Briscoe jessie Parrish Unavailable Encounter Details Date Type Department Care Team Description 11/20/2020 Records - [facility] YENNI CONVERSION Provider, Histor ical Social History Tobacco Use Types Packs/Day Years Used Date Smoking Tobacco: Never Assessed Sex Assigned at Date Recorded Female 02/24/2020 11:40 AM CDT documented as of this encounter Plan of Treatment Not on filedocumented as of this encounter Procedures Procedure Name Priority Date/Time Associated Diagnosis Comme nts MAMMO MISC(FCIS) Routine 07/20/2004 12:00 AM Resu lts for this ORDER HEEL GOUGER procedure are i n the results section. documented in this encounter Results Mammo Misc Order (07/20/2004 12:00 AM HEEL GOUGER) Anatomical Region Laterality Modality Other Specimen (Source) Anatomical Location Collection Method / Collectio n Time Received Time / Laterality Volume Narrative 07/20/2004 12:00 AM HEEL GOUGER See Historical Hospital Medical Record f or documentation Procedure Note Provider, Historical - 11/20/2020Formatt ing of this note might be different from the original. See Historical Hospital Medical Record f or documentation Historical Provider IMG MAMMOGRAPHY ORDERABLES documented in this encounter Visit Diagnoses Not on filedocumented in this encounter Care Teams Panelbeater Relationship Specialty Start Date End Date Lina Meléndez PCP - General Internal Medicine 12/26/14 [facility] [address] [place], [place] [phone] Rhoda Sarabia I Antitank Assault Gunner Dietitian, Registered 02/20/[address] [place] [address] documented as of this encounter
--- OUTSIDE RECORDS SUMMARY | 2022-04-05 15:47 | XMS_ITS | Encounter Summary ---
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 [facility] Procedures Management Visit [address] [place] [address] [phone] Referral ID Status Reason Start Date Expiration Date Visits V isits Requested Authorized [id number] Authorized 01/26/2022 01/26/2023 10 10 Encounter Details Date Type Department Care Team Description 02/18/2022 Hospital Encounter Department of Katy Dobson Neoplasm Radiation Oncology [place] Of Breast Upper in [place], [address] [place], [place] Female Right (HCC) [address] [facility] [address] [place], [place] [phone] (Work) [phone] Social History Tobacco Use Types Packs/Day Years [...] or relatives? How often do you attend zoroastrianism or muslim More than 4 time s per year 02/12/2022 services? Do you belong to any clubs or organizations Yes 02/12/2022 such as zoroastrianism groups, unions, fraternal or athletic groups, or [...] to pay for the very basics like Somew hat hard 02/12/2022 food, housing, medical care, [...] place to sleep or slept in a nursing home (including now)? Education Answer Date Recorded What is the highest level of Professional school degree (e.g ., , 02/12/2022 school you have completed or the DDS, DVM, FALLON) highest degree you have received? Sex Assigned at Date Recorded Not on file documented as of this encounter Last Filed Vital Signs Vital Sign Reading Time Taken Comments Blood Pressure - - Pulse - - Temperature 36.5 ??C (97.7 ??F) 02/18/2022 1:38 PM CDT Respiratory Rate - - Oxygen Saturation - - Inhaled Oxygen Concentration - - Weight 72.9 kg (160 lb 11.2 oz) 02/18/2022 1:38 PM CDT Height - - Body Mass Index 26.74 02/08/2022 2:25 PM CDT documented in this encounter Medications at Time of Discharge Medication Sig Dispensed Refills Start Date End Date acetaminophen (TYLENOL) Take 1,000 mg by 0 2019 500 mg tablet mouth. albuterol 90 Inhale 2-4 puffs as 0 12/20/2021 mcg/actuation inhaler needed. alendronate (FOSAMAX) 70 70 mg once a week. 0 mg tablet Every 7 days anastrozole (ARIMIDEX) 1 Take 1 mg by mouth 0 04/2022 mg tablet daily. atorvastatin (LIPITOR) Take 10 mg by mouth 0 04/27 10 mg tablet at bedtime. B complex-vitamin (SUPER Take 1 capsule by 0 B-50) capsule mouth daily. TWILAAGLKAMARI HALEY U-100 Inject as directed 0 12/21 INSULIN 100 unit/mL (3 daily. mL) injection betamethasone Apply 1 application 0 12/04/2019 dipropionate 0.05 % topically 2 (two) cream times a day. biotin 1 mg tablet Take 5,000 mg by 0 mouth daily. calcium Chew 600 mg daily. 0 carbonate-vitamin D3 (Calcium 600 with Vitamin D3) 600 mg-10 mcg (400 unit) tablet,chewable calcium Take 1 tablet by 0 carbonate-vitamin D3 625 mouth daily with mg (250 mg breakfast. calcium)-3.125 mcg (125 Unit) per tablet cholecalciferol (VITAMIN Take 3,000 Units by 0 D3) 1,000 Unit tablet mouth daily. clindamycin (CLEOCIN T) Apply 1 application 0 1 % external solution topically 2 (two) times a day. clobetasoL (TEMOVATE) Apply 1 application 0 12/20 0.05 % ointment topically 5 (five) times a week. clopidogreL (PLAVIX) 75 Take 75 mg by mouth 0 mg tablet daily. coenzyme Q10 (CO Q-10) Take 10 mg by mouth 0 10 mg capsule daily. diazePAM (VALIUM) 2 mg Take 2 mg by mouth 0 12/20 tablet daily. As needed flash glucose scanning 0 12/31/2021 reader (FREESTYLE KYLIE) [facility] flash glucose sensor 0 12/31/2021 (FREESTYLE KYLIE) kit fluticasone (FLONASE) 50 Administer 2 sprays 0 mcg/actuation nasal into affected spray nostril(s) at bedtime. fluticasone propionate Administer 2 sprays 0 11/25 (FLONASE) 50 into nostril(s) 2 mcg/actuation nasal (two) times a day. spray gabapentin (NEURONTIN) Take 300 mg by mouth 0 300 mg capsule at bedtime. insulin aspart U-100 .tidac 0 12/28/2021 (NovoLOG) 100 unit/mL injection magnesium oxide (MAG-OX) Take 600 mg by mouth 0 0 12/20/2021 400 mg (241.3 mg daily. 400 in the magnesium) tablet AM, 200 in the PM magnesium oxide 400 mg Take 4 tablets by 0 2015 capsule mouth daily. metFORMIN (GLUCOPHAGE) Take 500 mg by mouth 0 01/2009 500 mg tablet 2 (two) times a day. omeprazole (PriLOSEC) 20 Take 20 mg by mouth [address] capsule daily. ondansetron (ZOFRAN) 4 Take 4 mg by mouth 0 07/10 mg tablet every 8 (eight) hours as needed. pantoprazole (PROTONIX) Take 40 mg by mouth 0 40 mg EC tablet daily. Qvar RediHaler 80 Inhale 2 puffs 2 0 01/18/2022 mcg/actuation inhaler (two) times a day. timolol (TIMOPTIC) 0.5 % Administer 1 drop 0 01/24 ophthalmic solution into both eyes daily. valACYclovir (VALTREX) Take 500 mg by mouth 0 500 mg tablet 2 (two) times a day. vit Take 1 capsule by 0 01/31/2009 C/E/Zn/coppr/lutein/zeax mouth daily. an (PRESERVISION AREDS-2 ORAL) zolpidem (AMBIEN) 5 mg Take 5 mg by mouth 0 11/21 tablet at bedtime as needed. clopidogrel (PLAVIX) 75 Take 75 mg by mouth 0 mg tablet daily. diazePAM (VALIUM) 2 mg Take 2 mg by mouth 0 12/08 tablet as needed. Very limited usage HUMALOG KWIKPEN INSULIN Inject as directed 0 01/25 100 unit/mL injection daily. carvediloL (COREG) 6.25 Take 6.25 mg by 0 022 03/16/2022 mg tablet mouth 2 (two) times a day. carvediloL (COREG) 6.25 Take 1 tablet (6.25 180 tablet 3 11/202003/16/2022 mg tablet mg total) by mouth 2 (two) times a day with meals. documented as of this encounter Progress Katy Brenner M.D. - 02/18/2022 1:15 PM CDT I saw and evaluated the patient and participated in the arshad portions of the service as noted below. I reviewed the documentation of Ms. Tammi Villarreal RN and agree with the findings and plan. The patient appears well on exam. She has mild erythema of the breast. I congratulated her on completing her treatments today. 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 The course of treatment was tolerated well. The patient experienced toxicities of grade 1 fatigue and dermatitis during radiation treatment. Her skin looks very stable from when we saw her on Monday. She knows to call us if she has any concerns in the coming weeks. Follow-up will be with Tisha; we will see her again as needed. Katy Dobson M.D., 02/15/2022 SUBJECTIVE REASON FOR VISIT Evaluation for side effects while receiving radiation treatment for 1. Malignant Neoplasm Of Breast Upper Outer Quadrant Female Right (HCC) SUPERVISED BY: Katy Dobson M.D. 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 She is now undergoing radiation therapy. Treatment Course: 1xBreastR Plan ID Fractions Dose / Fraction (cGy) Dose Treated (cGy) Dose Planned (cGy) First Treatment Last Treatment Elapsed Days [id number] [id number] 02/14/2022 02/18/2022 4 Course Summary 02/14/2022 02/18/2022 4 The patient was seen and examined today with Dr. Dobson. Patient reports today she notices fatigue. She rates right breast discomfort at a 3 out of 10. She is not taking any pain medication at this time. She has been applying Aquaphor, Vanicream and aloe vera gel to treatment field area through out the day/evening. Sunburn feeling has improved. She denies seroma or changes in range of motion. She notes that her blood sugars have been with average with no new issues noted. PATIENT REPORTED SYMPTOM SCREEN FATIGUE (Scale: 0 = no fatigue; 10 = worst fatigue you can imagine): 9 PAIN (Scale: 0 = no pain; 10 = worst pain you can imagine): 3 OVERALL QUALITY OF LIFE (Scale: 0 = as bad as can be; 10 = as good as can be): 9- OBJECTIVE Temp 36.5 ??C (Temporal) Wt 72.9 kg BMI 26.74 kg/m?? PHYSICAL EXAM General: Alert and oriented in no apparent distress. Skin: mild erythema to the lower aspect of the right breast; no areas of desquamation; no areas of infection or erythema noted to lumpectomy incision. ASSESSMENT / PLAN #1 Stage IA (pT1b, cN0, cM0, G2, ER+, MI+, HER2-) invasive ductal carcinoma of the right breast s/p right breast lumpectomy on December 21, 2021 #2 Radiotherapy to the whole right breast initiated on February 14, 2022; anticipated date of completion is on February 18, 2022 The patient is tolerating radiation treatment well overall. Patient will continue with her current skin care routine. As skin starts to heal; patient can decrease frequency of moisturizing lotion application. Patient plans on starting endocrine therapy 1 week post completion of radiation therapy. Dr. Giles will see patient in follow up care. We will keep Radiation Oncology follow up to an as needed basis only. Skin changes should start to heal in 2-3 weeks after last radiation treatment. She will contact us with any questions or concerns. Patient stated a full understanding to the plan of care discussed today. Toxicities reviewed with Dr. Dobson today. Signed by: Tammi Villarreal R.N. 02/18/2022 1:51 PM CDT documented in this encounter Plan of Treatment Scheduled Orders Name Type Priority Associated Diagnoses Order S chedule Management Visit Radiation Oncology Routine Malignant Neoplasm Once for 1 Of Breast Upper Occurrences starting Outer Quadrant 02/18/2022 un til Female Right (HCC) 2 documented as of this encounter Visit Diagnoses Diagnosis Malignant Neoplasm Of Breast Upper Outer Quadrant Female Right (HCC) documented in this encounter
--- OUTSIDE RECORDS SUMMARY | 2022-04-05 15:47 | XMS_ITS | Encounter Summary ---
:1945 Author Organization [facility] Address [address] [place] [address] Care Team Providers Name Role Phone Lina Meléndez Primary Care Provider Rhoda Sarabia I Unavailable Encounter Details Date Type Department Care Team Description 11/17/2020 Records - [facility] YENNI CONVERSION Provider, Histor ical Social History Tobacco Use Types Packs/Day Years Used Date Smoking Tobacco: Never Assessed Sex Assigned at Date Recorded Female 02/24/2020 11:40 AM CDT documented as of this encounter Plan of Treatment Not on filedocumented as of this encounter Procedures Procedure Name Priority Date/Time Associated Diagnosis Comme nts XR CERVICAL SPINE Routine 01/10/2001 12:00 AM Res ults for this COMPLETE W OBL & CDT procedure a re in FLEX/EXT the results section. documented in this encounter Results XR Cervical Spine Comp w Obl & Flex/Ext (01/10/2001 12:00 AM CDT) Anatomical Region Laterality Modality Spine Other Specimen (Source) Anatomical Location Collection Method / Collectio n Time Received Time / Laterality Volume Narrative 01/10/2001 12:00 AM CDT See Historical Hospital Medical Record f or documentation Procedure Note Provider, Historical - 11/17/2020Formatt ing of this note might be different from the original. See Historical Hospital Medical Record f or documentation Historical Provider IMG DIAGNOSTIC IMAGING ORDER JOSE ALFREDO documented in this encounter Visit Diagnoses Not on filedocumented in this encounter Care Teams [employer] Team Member Relationship Specialty Start Date End Date Lina Meléndez PCP - General Internal Medicine 12/26/14 [facility] [address] [place] [address] Rhoda Sarabia I End User Consultant Dietitian, Registered 02/20/[address] [place] [address] documented as of this encounter
--- OUTSIDE RECORDS SUMMARY | 2022-04-05 15:47 | XMS_ITS | Encounter Summary ---
:1945 Author Organization [facility] Address [address] [place] [address] Care Team Providers Name Role Phone Lina Meléndez Primary Care Provider [place], Dojessie Parrish Unavailable Encounter Details Date Type Department Care Team Description 11/17/2020 Records - [facility] YENNI CONVERSION Provider, Histor ical Social History Tobacco Use Types Packs/Day Years Used Date Smoking Tobacco: Never Assessed Sex Assigned at Date Recorded Female 02/24/2020 11:40 AM CDT documented as of this encounter Plan of Treatment Not on filedocumented as of this encounter Procedures Procedure Name Priority Date/Time Associated Diagnosis Comme nts MAMMO MISC(FCIS) Routine 06/29/2000 12:00 AM Resu lts for this ORDER NIGHT CLERK AUDITOR procedure are i n the results section. documented in this encounter Results Mammo Misc Order (06/29/2000 12:00 AM NIGHT CLERK AUDITOR) Anatomical Region Laterality Modality Other Specimen (Source) Anatomical Location Collection Method / Collectio n Time Received Time / Laterality Volume Narrative 06/29/2000 12:00 AM NIGHT CLERK AUDITOR See Historical Hospital Medical Record f or documentation Procedure Note Provider, Historical - 11/17/2020Formatt ing of this note might be different from the original. See Historical Hospital Medical Record f or documentation Historical Provider IMG MAMMOGRAPHY ORDERABLES documented in this encounter Visit Diagnoses Not on filedocumented in this encounter Care Teams Die Trimmer Relationship Specialty Start Date End Date Lina Meléndez PCP - General Internal Medicine 12/26/14 [facility] [address] [place], [place] [phone] Rhoda Sarabia I Loan Services Professional Dietitian, Registered 02/20/[address] [place] [phone] documented as of this encounter
--- OUTSIDE RECORDS SUMMARY | 2022-04-05 15:47 | XMS_ITS | Encounter Summary ---
:1945 Author Organization [facility] Address [address] [place] [address] Care Team Providers Name Role Phone Lina Meléndez Primary Care Provider Rhoda Sarabia I Unavailable Encounter Details Date Type Department Care Team Description 12/20/2015 Records - [facility] CONVERSION Provider, Historica l Social History Tobacco Use Types Packs/Day Years Used Date Smoking Tobacco: Never Assessed Sex Assigned at Date Recorded Female 02/24/2020 11:40 AM CDT documented as of this encounter Plan of Treatment Not on filedocumented as of this encounter Visit Diagnoses Not on filedocumented in this encounter Care Teams Seismograph Supervisor Relationship Specialty Start Date End Date Lina Meléndez PCP - General Internal Medicine 12/26/14 [facility] [address] [place] [address] Rhoda Sarabia I Machine Clothing Replacer Dietitian, Registered 02/20/[address] [phone] documented as of this encounter
--- OUTSIDE RECORDS SUMMARY | 2022-04-05 15:47 | XMS_ITS | Encounter Summary ---
:1945 Author Organization [facility] Address [address] [place] [address] Care Team Providers Name Role Phone Lina Meléndez Primary Care Provider Rhoda Sarabia I Unavailable Reason for Visit Reason Comments Appointment Encounter Details Date Type Department Care Team Description 05/23/2016 [facility] Luis Sherman MD Appointment [address] [address] [place], [place] [phone] (Wo rk) [address] [phone] Social History Tobacco Use Types Packs/Day Years Used Date Smoking Tobacco: Never Assessed Sex Assigned at Date Recorded Female 02/24/2020 11:40 AM CDT documented as of this encounter Plan of Treatment Not on filedocumented as of this encounter Visit Diagnoses Not on filedocumented in this encounter Care Teams Day Habilitation Supervisor Relationship Specialty Start Date End Date Lina Meléndez PCP - General Internal Medicine 12/26/14 [facility] [address] [place] [address] Rhoda Sarabia I Answering Service Telephone Operator Dietitian, Registered 02/20/[address] [address] documented as of this encounter
--- OUTSIDE RECORDS SUMMARY | 2022-04-05 15:47 | XMS_ITS | Encounter Summary ---
:1945 Author Organization [place] Address [address] [place] [address] Care Team Providers Name Role Phone Lina Meléndez Primary Care Provider Rhoda Sarabia I Unavailable Encounter Details Date Type Department Care Team Description 05/20/2016 Records - [facility] CONVERSION Provider, Historica l Social History Tobacco Use Types Packs/Day Years Used Date Smoking Tobacco: Never Assessed Sex Assigned at Date Recorded Female 02/24/2020 11:40 AM CDT documented as of this encounter Plan of Treatment Not on filedocumented as of this encounter Visit Diagnoses Not on filedocumented in this encounter Care Teams Maitre D Relationship Specialty Start Date End Date Lina Meléndez PCP - General Internal Medicine 12/26/14 [facility] [address] [place] [address] Rhoda Sarabia I Cylinder Machine Operator Pulp Drier Dietitian, Registered 02/20/[address] [id number] documented as of this encounter
--- OUTSIDE RECORDS SUMMARY | 2022-04-05 15:47 | XMS_ITS | Encounter Summary ---
:1945 Author Organization [place] Address [address] [place] [address] Care Team Providers Name Role Phone Lina Meléndez Primary Care Provider [place]rib[place]oda noe Shivani Unavailable Encounter Details Date Type Department Care Team Description 11/19/2020 [facility], Histor ical Social History Tobacco Use Types Packs/Day Years Used Date Smoking Tobacco: Never Assessed Sex Assigned at Date Recorded Female 02/24/2020 11:40 AM CDT documented as of this encounter Plan of Treatment Not on filedocumented as of this encounter Procedures Procedure Name Priority Date/Time Associated Diagnosis Comme nts MA BREAST SPECIMEN Routine 06/06/2003 12:00 AM Re sults for this HEAVY EQUIPMENT SERVICE TECHNICIAN procedure are i n the results section. MA BREAST WIRE Routine 06/06/2003 12:00 AM Result s for this PLACEMENT 1ST HEAVY EQUIPMENT SERVICE TECHNICIAN procedure are in LESION RT the results section. documented in this encounter Results MA BREAST SPECIMEN (06/06/2003 12:00 AM HEAVY EQUIPMENT SERVICE TECHNICIAN) Anatomical Region Laterality Modality Other Specimen (Source) Anatomical Location Collection Method / Collectio n Time Received Time / Laterality Volume Narrative 06/06/2003 12:00 AM HEAVY EQUIPMENT SERVICE TECHNICIAN See Historical Hospital Medical Record f or documentation Procedure Note Provider, Historical - 11/19/2020Formatt ing of this note might be different from the original. See Historical Hospital Medical Record f or documentation Historical Provider IMG MAMMOGRAPHY ORDERABLES MA Breast Wire Placement 1st Lesion Righ (06/06/2003 12:00 AM HEAVY EQUIPMENT SERVICE TECHNICIAN) Anatomical Region Laterality Modality Breast Right Other Specimen (Source) Anatomical Location Collection Method / Collectio n Time Received Time / Laterality Volume Narrative 06/06/2003 12:00 AM HEAVY EQUIPMENT SERVICE TECHNICIAN See Historical Hospital Medical Record f or documentation Procedure Note Provider, Historical - 11/19/2020Formatt ing of this note might be different from the original. See Historical Hospital Medical Record f or documentation Historical Provider IMG MAMMOGRAPHY ORDERABLES documented in this encounter Visit Diagnoses Not on filedocumented in this encounter Care Teams Pipe Fittings Molder Relationship Specialty Start Date End Date Lina Meléndez PCP - General Internal Medicine 12/26/14 [facility] [address] [place] [address] Rhoda Sarabia I Undercover Operator Dietitian, Registered 02/20/[address] [address] documented as of this encounter
--- OUTSIDE RECORDS SUMMARY | 2022-04-05 15:47 | XMS_ITS | Encounter Summary ---
:1945 Author Organization [place] Address [address] [place] [address] Care Team Providers Name Role Phone Lina Meléndez Primary Care Provider Rhoda Sarabia I Unavailable Encounter Details Date Type Department Care Team Description 11/22/2020 Records - [facility] YENNI CONVERSION Provider, Histor ical Social History Tobacco Use Types Packs/Day Years Used Date Smoking Tobacco: Never Assessed Sex Assigned at Date Recorded Female 02/24/2020 11:40 AM CDT documented as of this encounter Plan of Treatment Not on filedocumented as of this encounter Procedures Procedure Name Priority Date/Time Associated Diagnosis Comme nts IR LUMBAR EPIDURAL Routine 07/28/2006 12:00 AM Re sults for this STEROID INJECTION REGULATORY AFFAIRS MANAGER procedure are in the results section. documented in this encounter Results IR Lumbar Epidural Steroid Injection (07/28/2006 12:00 AM REGULATORY AFFAIRS MANAGER) Anatomical Region Laterality Modality Spine Other Specimen (Source) Anatomical Location Collection Method / Collectio n Time Received Time / Laterality Volume Narrative 07/28/2006 12:00 AM REGULATORY AFFAIRS MANAGER See Historical Hospital Medical Record f or documentation Procedure Note Provider, Historical - 11/22/2020Formatt ing of this note might be different from the original. See Historical Hospital Medical Record f or documentation Historical Provider IMG IR ORDERABLES documented in this encounter Visit Diagnoses Not on filedocumented in this encounter Care Teams Hooker Off Relationship Specialty Start Date End Date Lina Meléndez PCP - General Internal Medicine 12/26/14 [facility] [address] [place] [address] Rhoda Sarabia I Dispatcher Chief Coal Slurry Dietitian, Registered 02/20/[address] [address] documented as of this encounter
--- OUTSIDE RECORDS SUMMARY | 2022-04-05 15:47 | XMS_ITS | Encounter Summary ---
:1945 [address] [facility] Address [address] [place] [address] Care Team Providers Name Role Phone Lina Meléndez Primary Care Provider GreenbrierRhoda noe I Unavailable Encounter Details Date Type Department Care Team Description 02/25/2020 Telephone [facility] Keila Khan RN [place] [address] [place] [address] [place], [place] [phone] Social History Tobacco Use Types Packs/Day Years Used Date Smoking Tobacco: Never Assessed Sex Assigned at Date Recorded Female 02/24/2020 11:40 AM CDT documented as of this encounter Miscellaneous Notes Telephone Encounter - Keila Khan RN - 02/25/2020 2:20 PM CDT Email from patient: > I spoke with Broderick Canseco via phone on 02/20/2020 and have rec? d suggested dose chart to avoidstacking. Question: chart states ???extra?? . Does extra mean in addition to insulin needed to covercarb count of food eaten? Question # 2: Near end of my chart sign in online, it indicates ???U Care M edicare non participant???. I called My chart support who never answers phone, I hung up. Does this mean my insurance (U Care/Medicare) does not participate with billing my insurance? If so, I can not continue with [facility]. My IS 49. I can???t sign in to My Chart. [facility] I will not need any further assistance. Please cancel my phone appt. on Feb 26. --- Response: Aniceto Maryam, Q1: The following chart indicates you should take 1 unit of Humalog for every 15 grams of carbohydrate ( 1 carb choice) plus add the extra dose if your blood sugar is high at the beginning of the meal. For example: you test your blood sugar before a meal and it is high at 225 and you are eating 30 grams of carb (2 carb choices)- you will take 2 units of Humalog for the food you are eating and 2 extra units for the high blood sugar = 4 units for the meal. Humalog continued to work for up to 4 hours in your body so if you take more insulin before the lastdose has worn off it is called insulin stacking which means 2 different doses are working at the same time (stacking the dose on top of each other) which can cause your blood sugar to go low. It is better to fix a high blood sugar by taking extra insulin at the meal instead of taking extra insulin between meals. Fast acting insulin: Take 1 unit of Humalog for every 15 gm ( 1 choice) of carbohydrate at your meal. Take additional units if blood sugar is above target. Please follow this guideline: If blood glucose is: Add extra Humalog/Novolog 150-200 1 unit 201-250 2 units 251-300 3 units 301-350 4 units 351-400 5 units 401-450 6 units 451-500 7 units Q2: I did look into the question about your medicare/[employer] and this is the response I received: Medicare and other Medicare Advantage plans like [employer] is covering diabetes education visits with the Senior Research Consultant ( which D[place] is ). I???m not sure what would be meant by ???U Care Medicare non participant?? on the patient???s MyChart??? I???m not sure that it would specifically be pertaining to our services, though. The patient could call the billing department at [phone] or their insurance company if they want to confirm coverage. I think the message you saw is to remind you to always check with your insurance on coverage of services. I did not cancel your appt as it is important to have your diabetes education to prevent diabetes related complications. If you look into the coverage through your insurance and our billing office and still want to cancel the appointment let us know. Keila Khan RN, [facility] documented in this encounter Plan of Treatment Not on filedocumented as of this encounter Visit Diagnoses Not on filedocumented in this encounter Care Teams Customer Marketing Manager Relationship Specialty Start Date End Date Lina Meléndez PCP - General Internal Medicine 12/26/14 [facility] [address] [place] [address] Rhoda Sarabia I Speech Therapist Dietitian, Registered 02/20/[address] [address] documented as of this encounter
--- OUTSIDE RECORDS SUMMARY | 2022-04-05 15:47 | XMS_ITS | Encounter Summary ---
:1945 Author Organization [place] Address [address] [place] [address] Care Team Providers Name Role Phone Lina Meléndez Primary Care Provider RichRhoda noe Shivani Unavailable Encounter Details Date Type Department Care Team Description 11/17/2020 Records - [facility] YENNI CONVERSION Provider, Histor ical Social History Tobacco Use Types Packs/Day Years Used Date Smoking Tobacco: Never Assessed Sex Assigned at Date Recorded Female 02/24/2020 11:40 AM CDT documented as of this encounter Plan of Treatment Not on filedocumented as of this encounter Procedures Procedure Name Priority Date/Time Associated Diagnosis Comme nts MR THORACIC SPINE Routine 10/23/2000 12:00 AM Res ults for this W/O CONTRAST CDT procedure are i n the results section. MR CERVICAL SPINE Routine 10/23/2000 12:00 AM Res ults for this W/O CONTRAST CDT procedure are i n the results section. documented in this encounter Results MR Cervical Spine w/o Contrast (10/23/2000 12:00 AM CDT) Anatomical Region Laterality Modality Spine, SUBRAD MR NEURO, UMP MR SPINE, RAD MR Other Specimen (Source) Anatomical Location Collection Method / Collectio n Time Received Time / Laterality Volume Narrative 10/23/2000 12:00 AM CDT See Historical Hospital Medical Record f or documentation Procedure Note Provider, Historical - 11/17/2020Formatt ing of this note might be different from the original. See Historical Hospital Medical Record f or documentation Historical Provider IMG MRI ORDERABLES MR Thoracic Spine w/o Contrast (10/23/2000 12:00 AM CDT) Anatomical Region Laterality Modality Spine, SUBRAD MR NEURO, UMP MR SPINE, RAD MR Other Specimen (Source) Anatomical Location Collection Method / Collectio n Time Received Time / Laterality Volume Narrative 10/23/2000 12:00 AM CDT See Historical Hospital Medical Record f or documentation Procedure Note Provider, Historical - 11/17/2020Formatt ing of this note might be different from the original. See Historical Hospital Medical Record f or documentation Historical Provider IMG MRI ORDERABLES documented in this encounter Visit Diagnoses Not on filedocumented in this encounter Care Teams Software Support Analyst Relationship Specialty Start Date End Date Lina Meléndez PCP - General Internal Medicine 12/26/14 [facility] [address] [place] [address] Rhoda Sarabia I Diving Board Assembler Dietitian, Registered 02/20/[address] [address] documented as of this encounter
--- OUTSIDE RECORDS SUMMARY | 2022-04-05 15:47 | XMS_ITS | Encounter Summary ---
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 T Radiation Oncology Procedures Prior Auth Rad Tx [place] RADTN [place] DEL >=1 MEV COMPLEX [address] [facility] [place] [address] [address] [facility] [place] [address] Referral ID Status Reason Start Date Expiration Date Visits V isits Requested Authorized [id number] Authorized 02/08/2022 01/26/2023 19 19 Encounter Details Date Type Department Care Team Description 02/17/2022 Hospital Encounter Department of Radiation Marilyn Dobson I., [place] [address] [facility] [address] [place] [address] [phone] Social History Tobacco Use Types Packs/Day Years [...] or relatives? How often do you attend voodoo or quaker More than 4 time s per year 02/12/2022 services? Do you belong to any clubs or organizations Yes 02/12/2022 such as voodoo groups, unions, fraternal or athletic groups, or [...] place to sleep or slept in a detention (including now)? Education Answer Date Recorded What [...] capsule by 0 B-50) capsule mouth daily. BASAGLAR KWIKPEN U-100 Inject as directed 0 12/21 INSULIN [...] ointment topically 5 (five) times a week. clopidogrel (PLAVIX) 75 Take 75 mg by mouth 0 mg tablet daily. clopidogreL (PLAVIX) 75 Take 75 mg by mouth 0 mg tablet daily. coenzyme Q10 (CO Q-10) Take 10 mg by mouth 0 10 mg capsule daily. diazePAM (VALIUM) 2 mg Take 2 mg by mouth 0 12/08 tablet as needed. Very limited usage diazePAM (VALIUM) 2 mg Take 2 mg by mouth 0 12/20 tablet daily. As needed flash glucose scanning 0 12/31/2021 reader (FREESTYLE KYLIE) [facility] flash glucose sensor 0 12/31/2021 (FREESTYLE KYLIE) kit fluticasone (FLONASE) 50 Administer 2 sprays 0 mcg/actuation nasal into affected spray nostril(s) at bedtime. fluticasone propionate Administer 2 sprays 0 11/25 (FLONASE) 50 into nostril(s) 2 mcg/actuation nasal (two) times a day. spray gabapentin (NEURONTIN) Take 300 mg by mouth 0 300 mg capsule at bedtime. HUMALOG KWIKPEN INSULIN Inject as directed 0 01/25 100 unit/mL injection daily. insulin aspart U-100 .tidac 0 12/28/2021 (NovoLOG) [...] 0 11/21 tablet at bedtime as needed. carvediloL (COREG) 6.25 Take 1 tablet (6.25 180 tablet 3 11/202003/16/2022 mg tablet mg total) by mouth 2 (two) times a day with meals. carvediloL (COREG) 6.25 Take 6.25 mg by 0 022 03/16/2022 mg tablet mouth 2 (two) times a day. documented as of this encounter Plan of Treatment Not on filedocumented as of this encounter Visit Diagnoses Not on filedocumented in this encounter
--- OUTSIDE RECORDS SUMMARY | 2022-04-05 15:47 | XMS_ITS | Encounter Summary ---
:1945 Author Organization [place] Address [address] [place] [address] Care Team Providers Name Role Phone Unavailable Primary Care Provider Unavailable Encounter Details Date Type Department Care Team Description 12/25/2014 Orders Only [facility] Zeinab Meléndez Dyspnea on exertion [facility] Respiratory [facility] (Primary Dx) Therapy [address] [facility] [address] [place] [address] [phone] Social History Tobacco Use Types Packs/Day Years Used Date Smoking Tobacco: Never Assessed Sex Assigned at Date Recorded Female 02/24/2020 11:40 AM CDT documented as of this encounter Plan of Treatment Not on filedocumented as of this encounter Visit Diagnoses Diagnosis Dyspnea on exertion - Primary Other dyspnea and respiratory abnormalit y documented in this encounter
--- OUTSIDE RECORDS SUMMARY | 2022-04-05 15:47 | XMS_ITS | Encounter Summary ---
:1945 Author Organization [place] Address [address] [place] [address]. [place] [address] Care Team Providers Name Role Phone Unavailable Primary Care Provider Unavailable Encounter Details Date Type Department Care Team Description 08/12/2009 Operative Report [facility] Yan, (Dethistler Operator) [facility] MD Noy Results [facility] [address] [place] [address] Social History Tobacco Use Types Packs/Day Years Used Date Smoking Tobacco: Never Assessed Sex Assigned at Date Recorded Female 02/24/2020 11:40 AM CDT documented as of this encounter Progress Notes Noy Mata MD - 10/13/2009 10:26 AM CDT FINAL PRIMARY SURGEON: Asim Flores MD 1[facility] DISTRICT RECRUITER: Noy Mata MD PREOPERATIVE DIAGNOSIS: Stress incontinence. POSTOPERATIVE DIAGNOSIS: Stress incontinence. ANESTHESIA: General. Preoperatively, the patient received antibiotics. ESTIMATED BLOOD LOSS: Less than 10 cc. COMPLICATIONS: None. SPECIMENS: None. INDICATIONS FOR PROCEDURE: Maryam Cortez is a relatively young 63, healthy otherwise female who presents with severe stress incontinence documented by stress test on urodynamics. She did have a surgery procedure done in the past for her stress incontinence that did not last long, and this time she presents for repeat procedure. Went through risks and benefits of the procedure. This time we decided to do a retropubic sling with the polypropylene type 1 mesh and adjusted tension as needed. I went through the risks of the procedure including bleeding, infection, retention, injury to surrounding organs, small chance of erosion, dyspareunia and no urge incontinence. She understands and she would liketo proceed. DETAILS OF PROCEDURE: Patient was brought to the operating room, placed in supine position. After excellent induction of general anesthesia, her perineum was prepped and draped in the regular fashion.A 16-[place] Islander Sims catheter was placed into her bladder and bladder was drained. After that, a transverse incision was made at the mid urethra for approximately 3 cm in size and periurethral space was infiltrated using 0.25% Marcaine with epinephrine, approximately 20 cc. After that, the periurethral space was dissected using Metzenbaum scissors all the way to the pubic bone bilaterally. After that, a small puncture incisions were made over her pubic bones, approximately 3 cm lateral to the midline of her abdomen on both sides. After that a Stamey needle was passed from above toward the vaginal incision and the polypropylene type 1 mesh by 10 x 1.3 cm was carved and attached to the Vicryl sutures bilaterally. The Vicryl sutures were passed through the Stamey needles bilaterally. The cystoscopy wasperformed with the Stamey needles in place that demonstrated no bladder perforation with a full bladder. After that, the Sims catheter was introduced back and bladder left full. After that the Vicryl sutures at the end of the sling procedure were pulled through the retropubic incisions and one of them was tacked underneath of the subcutaneous tissue and then they were tied to each other. That was done after appropriate tension was confirmed of the polypropylene mesh over the urethra with the Sims in place. The tension was such that we could easily place Metzenbaum scissors with no problems between the mesh and the urethra. After that, I placed a 3-0 Vicryl suture, taking the mesh to the urethra.Of note, there was some significant scarring on both sides with passing the Stamey needles. The vaginal incision was closed with a 2-0 Vicryl running. Vaginal packing was applied. Sims catheter was removed and the suprapubic incisions were closed with the Dermabond. The patient was extubated and [facility] to recovery room in stable condition. Electronically signed on 10/13/2009 10:25 by NOY MATA MD MT: [id number] Name: MARYAM CORTEZ MRN: [id number] Account: [id number] : 1945 Procedure Date: 08/12/2009 Document: [id number] documented in this encounter Plan of Treatment Not on filedocumented as of this encounter Visit Diagnoses Not on filedocumented in this encounter
--- OUTSIDE RECORDS SUMMARY | 2022-04-05 15:47 | XMS_ITS | Encounter Summary ---
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 T Radiation Oncology Procedures Prior Auth Rad Tx [place] RADTN [place] DEL >=1 MEV COMPLEX [address] [facility] [place] [address] [address] [facility] [place] [address] Referral ID Status Reason Start Date Expiration Date Visits V isits Requested Authorized [id number] Authorized 02/08/2022 01/26/2023 19 19 Encounter Details Date Type Department Care Team Description 02/18/2022 Hospital Encounter Department of Radiation Marilyn Dobson I., [place]cology [place] [address] [facility] [address] [place] [address] [phone] Social History Tobacco Use Types Packs/Day Years [...] or relatives? How often do you attend nondenominational or hindu More than 4 time s per year 02/12/2022 services? Do you belong to any clubs or organizations Yes 02/12/2022 such as nondenominational groups, unions, fraternal or athletic groups, or [...] place to sleep or slept in a skilled nursing (including now)? Education Answer Date Recorded What [...] glucose scanning 0 12/31/2021 reader (FREESTYLE KYLIE) [facility] [place] 0 12/31/2021 (FREESTYLE KYLIE) [...]
--- OUTSIDE RECORDS SUMMARY | 2022-04-05 15:47 | XMS_ITS | Clinical Summary ---
:1945 Author Organization [facility] Address [address] [place] [address] Care Team Providers Name Role Phone Unavailable Primary Care Provider Unavailable Source Comments Patient records contain information from all sites at [facility]. For routine questions regarding patient records, call [phone] during business hours, M-F 8:00 AM - 5:00 PM Central Time. 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 B complex-vitamin Take 1 capsule 0 Active (SUPER B-50) by mouth daily. capsule cholecalciferol Take 3,000 0 Act verena (VITAMIN D3) 1,000 Units by mouth Unit tablet daily. clopidogrel Take 75 mg by 0 Acti ve (PLAVIX) 75 mg mouth daily. 6 tablet diazePAM (VALIUM) 2 Take 2 mg by 0 Active mg tablet mouth as 7 needed. Very limited usage fluticasone Administer 2 0 Activ e (FLONASE) 50 sprays into mcg/actuation nasal affected spray nostril(s) at bedtime. BASAGLAR KWIKPEN Inject as 0 Act verena U-100 INSULIN 100 directed daily. 8 unit/mL (3 mL) injection HUMALOG KWIKPEN Inject as 0 Acti ve INSULIN 100 unit/mL directed daily. 8 injection magnesium oxide 400 Take 4 tablets 0 Active mg capsule by mouth daily. 6 metFORMIN Take 500 mg by 0 Activ e (GLUCOPHAGE) 500 mg mouth 2 (two) 9 tablet times a day. vit Take 1 capsule 0 Activ e C/E/Zn/coppr/lutein by mouth daily. 9 /zeaxan (PRESERVISION AREDS-2 ORAL) pantoprazole Take 40 mg by 0 Act verena (PROTONIX) 40 mg EC mouth daily. tablet alendronate 70 mg once a 0 Activ e (FOSAMAX) 70 mg week. Every 7 2 tablet days anastrozole Take 1 mg by 0 Activ e (ARIMIDEX) 1 mg mouth daily. 2 tablet Qvar RediHaler 80 Inhale 2 puffs 0 Active mcg/actuation 2 (two) times a 2 inhaler day. betamethasone Apply 1 0 Active dipropionate 0.05 % application 0 cream topically 2 (two) times a day. albuterol 90 Inhale 2-4 0 Active mcg/actuation puffs as 2 inhaler needed. clindamycin Apply 1 0 Active (CLEOCIN T) 1 % application 2 external solution topically 2 (two) times a day. clobetasoL Apply 1 0 Active (TEMOVATE) 0.05 % application 2 ointment topically 5 (five) times a week. clopidogreL Take 75 mg by 0 Acti ve (PLAVIX) 75 mg mouth daily. 2 tablet diazePAM (VALIUM) 2 Take 2 mg by 0 Active mg tablet mouth daily. As 2 needed flash glucose 0 Active scanning reader 2 (FREESTYLE KYLIE) misc flash glucose 0 Active sensor (FREESTYLE 2 KYLIE) kit fluticasone Administer 2 0 Activ e propionate sprays into 2 (FLONASE) 50 nostril(s) 2 mcg/actuation nasal (two) times a spray day. gabapentin Take 300 mg by 0 Acti ve (NEURONTIN) 300 mg mouth at 2 capsule bedtime. insulin aspart .tidac 0 Activ e U-100 (NovoLOG) 100 2 unit/mL injection omeprazole Take 20 mg by 0 Activ e (PriLOSEC) [address] mouth daily. 2 capsule magnesium oxide Take 600 mg by 0 Active (MAG-OX) 400 mg mouth daily. 2 (241.3 mg 400 in the AM, magnesium) tablet 200 in the PM ondansetron Take 4 mg by 0 Activ e (ZOFRAN) 4 mg mouth every 8 0 tablet (eight) hours as needed. timolol (TIMOPTIC) Administer 1 0 Active 0.5 % ophthalmic drop into both 2 solution eyes daily. zolpidem (AMBIEN) 5 Take 5 mg by 0 Active mg tablet mouth at 2 bedtime as needed. valACYclovir Take 500 mg by 0 Ac tive (VALTREX) 500 mg mouth 2 (two) 2 tablet times a day. acetaminophen Take 1,000 mg 0 Ac tive (TYLENOL) 500 mg by mouth. 0 tablet biotin 1 mg tablet Take 5,000 mg 0 Active by mouth daily. coenzyme Q10 (CO Take 10 mg by 0 Active Q-10) 10 mg capsule mouth daily. calcium Take 1 tablet 0 Active carbonate-vitamin by mouth daily D3 625 mg (250 mg with breakfast. calcium)-3.125 mcg (125 Unit) per tablet calcium Chew 600 mg 0 Active carbonate-vitamin daily. D3 (Calcium 600 with Vitamin D3) 600 mg-10 mcg (400 unit) tablet,chewable carvediloL (COREG) Take 1 tablet 180 tablet 3 Active 6.25 mg tablet (6.25 mg total) 2 23 by mouth 2 (two) times a day with meals. carvediloL (COREG) Take 1 tablet 180 tablet 3 Discontinued 6.25 mg tablet (6.25 mg total) 1 22 (Reorder) by mouth 2 (two) times a day with meals. carvediloL (COREG) Take 6.25 mg by 0 03/16 Discontinued 6.25 mg tablet mouth 2 (two) 2 22 times a day. Active Problems Problem Noted Date Malignant Neoplasm Of Breast Upper Outer Quadrant Fema le Right 01/26/2022 Cancer Staging: Pathologic stage from : Stage Unknown (pT1b, pNX, cM0, G2, ER+, WY+, HER2-, Oncotype DX score: 17) - Unsigned Hyponatremia 03/08/2021 Diabetes Mellitus Type 2 01/31/2009 Overview: DM II [Diabetes mellitus type II] Hypertension And Chronic Kidney Disease Stage 1 To 4 0 01/31/2009 Overview: Hypertension Encounters Date Type Specialty Care Team Description 03/16/2022 Refill Nephrology and Juan Lopez Refill Hypertension Joshua Santos Jr. DLori 02/18/2022 Hospital Encounter Radiation Oncology Katy Dobson M.D. 02/18/2022 Hospital Encounter Radiation Oncology Patel Dobson ignant Neoplasm Katy Parrish., Of Breast Upper M.D. Outer Quadrant Female Right (H CC) 02/18/2022 Documentation Radiation Oncology [facility] Katy Dale M.D. 02/17/2022 Hospital Encounter Radiation Oncology Katy Dobson M.D. 02/16/2022 Hospital Encounter Radiation Oncology Katy Dobson M.D. 02/15/2022 Hospital Encounter Radiation Oncology [facility] Mal ignant Neoplasm Katy Parrish., Of Breast Upper M.D. Outer Quadrant Female Right (H CC) 02/15/2022 Hospital Encounter Radiation Oncology BronsonKaty M.D. 02/14/2022 Hospital Encounter Radiation Oncology BronsonKaty M.D. 02/09/2022 Hospital Encounter Radiation Oncology [facility], Mal ignant Neoplasm Katy I., Of Breast Upper M.D. Outer Quadrant Female Right (H CC) 02/09/2022 Clinical Radiation Oncology [facility], Hola Dale M.D. 02/08/2022 External Outreach Nephrology and Jessica, Hyperten jo ann And Chronic Kidney Disease Stage 1 To 4 (Primary Dx); Hypertension Joshua Santos Jr., Hyponatremia; D.O. Malignant Neopl asm Of Breast Upper Outer Quadrant Female Right (HCC); Diabetes Mellit us Type 2 (HCC) 02/08/2022 Clinical Radiation Oncology Hola Dobson M.D. 02/03/2022 Hospital Encounter Radiation Oncology [facility], Mal ignant Neoplasm Katy I., Of Breast Upper M.D. Outer Quadrant Female Right (H CC) (Primary Dx) 01/26/2022 Orders Only Radiation Oncology [facility], Malignant Neoplasm Katy I., Of Breast Upper M.D. Outer Quadrant Female Right (H CC) (Primary Dx) 01/04/2022 External Outreach Nephrology and [place], Hyperten jo ann And Chronic Kidney Disease Stage 1 To 4 (Primary Dx); Hypertension Joshua C Jr., Hyponatremia; D.O. Diabetes Mellit us Type 2 (HCC) from Last 3 Months Immunizations Name Administration Dates Next Due SARS-COV-2 (COVID-19) - [employer] (12 years or older) , 07/14/2020 Family History Medical History Relation Name Comments Psoriasis Father Relation Name Status Comments Father Social History Tobacco Use Types Packs/Day Years [...] or relatives? How often do you attend judaism or mormonism More than 4 time s per year 02/12/2022 services? Do you belong to any clubs or organizations Yes 02/12/2022 such as judaism groups, unions, fraternal or athletic groups, or [...] place to sleep or slept in a long-term (including now)? Education Answer Date Recorded What is the highest level of Professional school degree (e.g ., , 02/12/2022 school you have completed or the DDS, DVM, FALLON) highest degree you have received? Sex Assigned at Date Recorded Not on file Last Filed Vital Signs Vital Sign Reading Time Taken Comments Blood Pressure 142/80 02/08/2022 2:25 PM CDT Pulse 64 02/08/2022 2:25 PM CDT Temperature 36.5 ??C (97.7 ??F) 02/18/2022 1:38 PM CDT Respiratory Rate - - Oxygen Saturation - - Inhaled Oxygen Concentration - - Weight 72.9 kg (160 lb 11.2 oz) 02/18/2022 1:38 PM CDT Height 165.1 cm (5' 5) 02/08/2022 2:25 PM CDT Body Mass Index 26.74 02/08/2022 2:25 PM CDT Plan of Treatment Health Maintenance Due Date Last Done Comments Bone Density Scan (Osteoporosis 1945 Screen) CT Colonography 1945 Cologuard 1945 Colonoscopy 1945 Colorectal Cancer Surveillance 1945 Creatinine Level 1945 Diabetic Office Visit with Foot 1945 Exam Dilated Eye Exam 1945 Hepatitis C Screening 1945 Urine Albumin 1945 Hemoglobin A1C 06/18/2020 12/18/2019 Depression Screening (Annual 06/26/2021 PHQ-2) Fall Risk Screen (Annual) 06/26/2021 COVID-19 Vaccine (5 - Booster for 11/17/2021 09/22/2021, , Pfizer series) 08/04/2020, Additional history exists Influenza Vaccine (#1) 2022 03/31/2021, 03/31/2020, 03/26/2019, Additional history exists Office Visit for Blood Pressure 05/11/2022 02/08/2022 Check / Re-check Mammogram 12/21/2022 12/21/2021, 11/05/2021, 11/02/2021, Additional history exists DTaP,Tdap,and Td Vaccines (2 - Td 08/22/2024 08/22/2014, , or Tdap) 01/22/2002, Additional history exists Lipid (Cholesterol) Screening 12/17/2024 12/18/2019 Pneumococcal vaccine (65+ years) Completed 06/07/2018, , 06/10/2010 Zoster Vaccines Completed 10/10/2018, 06/04/2018, 03/11/2009 Procedures Procedure Name Priority Date/Time Associated Comments Diagnosis ARIA COURSE COMPLETE Routine 02/18/2022 1:31 PM R esults for this TREATMENT INFORMATION CDT proced ure are in the results section. ARIA DAILY TREATMENT Routine 02/18/2022 1:31 PM R esults for this INFORMATION CDT procedure are i n the results section. ARIA DAILY TREATMENT Routine 02/17/2022 2:00 PM R esults for this INFORMATION CDT procedure are i n the results section. ARIA DAILY TREATMENT Routine 02/16/2022 3:30 PM R esults for this INFORMATION CDT procedure are i n the results section. ARIA DAILY TREATMENT Routine 02/15/2022 9:22 AM R esults for this INFORMATION CDT procedure are i n the results section. ARIA DAILY TREATMENT Routine 02/14/2022 2:45 PM R esults for this INFORMATION CDT procedure are i n the results section. ARIA COURSE COMPLETE Routine 02/14/2022 12:26 Res ults for this TREATMENT INFORMATION PM CDT proced ure are in the results section. ARIA COURSE COMPLETE Routine 02/14/2022 12:26 Res ults for this TREATMENT INFORMATION PM CDT proced ure are in the results section. ARIA COURSE COMPLETE Routine 02/11/2022 2:52 PM R esults for this TREATMENT INFORMATION CDT proced ure are in the results section. ARIA COURSE COMPLETE Routine 02/11/2022 2:52 PM R esults for this TREATMENT INFORMATION CDT proced ure are in the results section. ARIA COURSE COMPLETE Routine 02/10/2022 3:23 PM R esults for this TREATMENT INFORMATION CDT proced ure are in the results section. INITIAL RAD ONC Routine 02/09/2022 2:33 PM Malignant Neoplasm Results for this TREATMENT PLANNING CT CDT Of Breast Upper pro cedure are in SIMULATION Outer Quadrant the results Female Right (HCC) section. from Last 3 Months Results Aria Course Complete Treatment Information (02/18/2022 1:31 PM CDT)Only the most recent of6 resultswithin the time period is included. [facility] gist Method Time Signature Course ID [id number] ALVARENGA ARIA Course Start Date ALVARENGA ARIA 2 10:18 CDT Course End Date ALVARENGA ARIA 2 13:30 CDT First Treatment ALVARENGA ARIA Date 2 14:43 CDT Last Treatment ALVARENGA ARIA Date 2 13:31 CDT Treatment Elapsed 4 ALVARENGA ARIA Days Reference Point [id number] ALVARENGA ARIA Dosage Given to 2600 ALVARENGA ARIA Date cGy Plan ID [id number] ALVARENGA ARIA Fractions Treated 5 ALVARENGA ARIA to Date Planned Total 5 ALVARENGA ARIA Fractions Prescribed Dose 520 ALVARENGA ARIA Per Fraction Prescription Dose 2600 ALVARENGA ARIA in cGy Plan Primary [id number] ALVARENGA ARIA Reference Point Specimen (Source) Anatomical Collection Method Collection Time Re ceived Time Location / / Volume Laterality 02/18/2022 1:31 PM CDT Provider Not In System RADIATION ONCOLOGY ORDERABLE S Performing Organization Address City/State/ZIP Code Phon e Number ALVARENGA ARIA ALVARENGA ARIA na Aria Daily Treatment Information (02/18/2022 1:31 PM CDT)Only the most recent of 5 resultswithin the time period is included. [facility] gist Method Time Signature Course ID [id number] ALVARENGA ARIA Course Start Date ALVARENGA ARIA 2 10:18 CDT First Treatment ALVARENGA ARIA Date 2 14:43 CDT Last Treatment ALVARENGA ARIA Date 2 13:31 CDT Treatment Elapsed 4 ALVARENGA ARIA Days Reference Point [id number] ALVARENGA ARIA Dosage Given to 2600 ALVARENGA ARIA Date cGy Session Dosage 520 ALVARENGA ARIA Given Plan ID [id number] ALVARENGA ARIA Fractions Treated 5 ALVARENGA ARIA to Date Planned Total 5 ALVARENGA ARIA Fractions Prescribed Dose 520 ALVARENGA ARIA Per Fraction Prescription Dose 2600 ALVARENGA ARIA in cGy Plan Primary [id number] ALVARENGA ARIA Reference Point Specimen (Source) Anatomical Collection Method Collection Time Re ceived Time Location / / Volume Laterality 02/18/2022 1:31 PM CDT Provider Not In System RADIATION ONCOLOGY ORDERABLE S Performing Organization Address City/State/ZIP Code Phon e Number LYLE DAVIES na Initial Rad Onc Treatment Planning CT Simulation (02/09/2022 2:33 PM CDT) Specimen (Source) Anatomical Location Collection Method / Collectio n Time Received Time / Laterality Volume Narrative LYLE DAVIES - 02/09/2022 2:33 PM CDT Patricia Balderas R, RTT ? 02/09/2022 ??2:34 PM Initial Rad Onc Treatment Planning CT Si mulation Date/Time: 02/09/2022 2:33 PM Performed by: Katy Dobson M.D. Authorized by: Katy Dobson M.D. Katy Dobson M.D. RADIATION ONCOLOGY ORDERABLE S Performing Organization Address City/State/ZIP Code Phon e Number LYLE DAVIES na from Last 3 Months Insurance Payer Benefit Plan / Subscriber ID Effective Dates Phone Addre ss Type Group [facility] [id number] 2019-Present [phone] [address] [place] [address]
--- OUTSIDE RECORDS SUMMARY | 2022-04-05 15:47 | XMS_ITS | Encounter Summary ---
:1945 Author Organization [facility] Address [address] [place] [address] Care Team Providers Name Role Phone NavdeepLina uriostegui Primary Care Provider [place]fieldRhoda noe Shivani Unavailable Encounter Details Date Type Department Care Team Description [facility]/11[facility] Larissa Hernandez MD [address] [place] [address] RETIRED [facility] [address] [place] [address] Social History Tobacco Use Types Packs/Day Years Used Date Smoking Tobacco: Never Assessed Sex Assigned at Date Recorded Female 02/24/2020 11:40 AM CDT documented as of this encounter Plan of Treatment Not on filedocumented as of this encounter Procedures Procedure Name Priority Date/Time Associated Diagnosis Comme nts HEMOGLOBIN A1C Routine 03/11/2009 2:38 PM Results for this CDT procedure are i n the results section . documented in this encounter Results (ABNORMAL) Hemoglobin A1c (03/11/2009 2:38 PM CDT) Analysis Performed At Patho logist Time Signature Hemoglobin A1C 7.5 (H) 4.8 - 6.0 03/11/2009 [facility] % 2:38 PM CDT Specimen Anatomical Collection Method Collection Time Receive d Time (Source) Location / / Volume Laterality 03/11/2009 2:38 PM 9 2:38 CDT PM CDT Coleman Dye MD LAB - BLOOD ORDERABLES Performing Organization Address City/State/ZIP Code Phon e Number [facility] [place] [address] [address] [facility] [address] [facility] [place] [address] documented in this encounter Visit Diagnoses Not on filedocumented in this encounter Care Teams Rock Wool Insulator Relationship Specialty Start Date End Date Lina Meléndez PCP - General Internal Medicine 12/26/14 [facility] [address] [place] [address] Rhoda Sarabia I Certified Nurse Practitioner Dietitian, Registered 02/20/20 290 [facility] [address] [place] [address] documented as of this encounter
--- OUTSIDE RECORDS SUMMARY | 2022-04-05 15:47 | XMS_ITS | Encounter Summary ---
:1945 Author Organization [facility] Address [address] [place] [address] Care Team Providers Name Role Phone Unavailable Primary Care Provider Unavailable Reason for Visit Reason Comments Med Refill Encounter Details Date Type Department Care Team Description 03/16/2022 Refill Division of Nephrology and Jessica, Chano Santos Jr., Med Refill Hypertension in [facility] [address] [facility] [address] [place] [address] [place] [address] [phone] Social History Tobacco Use Types Packs/Day Years [...] or relatives? How often do you attend gnosticist or sikh More than 4 time s per year 02/12/2022 services? Do you belong to any clubs or organizations Yes 02/12/2022 such as gnosticist groups, unions, fraternal or athletic groups, or [...] to pay for the very basics like T[employer] hat hard 02/12/2022 food, housing, medical care, [...] place to sleep or slept in a usp (including now)? Education Answer Date Recorded What [...]
--- OUTSIDE RECORDS SUMMARY | 2022-04-05 15:47 | XMS_ITS | Encounter Summary ---
:1945 Author Organization [place] Address [address] [place] [address] Care Team Providers Name Role Phone Lina Meléndez Primary Care Provider Rhoda Sarabia I Unavailable Encounter Details Date Type Department Care Team Description 01/04/2016 [facility] Provider, [facility] Information Management [address] [facility] [address] [place] [address] Social History Tobacco Use Types Packs/Day Years Used Date Smoking Tobacco: Never Assessed Sex Assigned at Date Recorded Female 02/24/2020 11:40 AM CDT documented as of this encounter Plan of Treatment Not on filedocumented as of this encounter Visit Diagnoses Not on filedocumented in this encounter Care Teams Line Maintenance Technician Relationship Specialty Start Date End Date Lina Meléndez PCP - General Internal Medicine 12/26/14 [facility] [address] [place] [address] Rhoda Sarabia I Rag Sorter And Cutter Dietitian, Registered 02/20/[address] [address] documented as of this encounter
--- OUTSIDE RECORDS SUMMARY | 2022-04-05 15:48 | XMS_ITS | Encounter Summary ---
:1945 Author Organization [facility] Address [address] [place] [address] Care Team Providers Name Role Phone Unavailable Primary Care Provider Unavailable Reason for Visit Reason Comments Skin Problem Appointment Request (Routine) - Closed Specialty Diagnoses / Procedures Referred By Contact Refer red To Contact Family Medicine Referral ID Status Reason Start Date Expiration Date Visits Requ ested Visits Authorized [id number] Closed 12/08/2017 12/08/2018 1 Encounter Details Date Type Department Care Team Description 03/20/2018 Office Visit Department of Kamilla Cortes, Cancer Ski n Basal Cell Personal History (Primary Dx); Dermatology in [place], [place] [address] [place] [phone] Social History Tobacco Use Types Packs/Day Years Used Date Smoking Tobacco: Never Smokeless Tobacco: Never Alcohol Habits Answer Date Recorded How often do you have a drink containing alcohol? Monthly or less 02/12/2022 How many drinks containing alcohol do you have on a 1 or 2 02/12/2022 typical day when you are drinking? How often do you have six or more drinks on one Never 02/12/2022 occasion? Comment: Not asked Social Isolation Answer Date Recorded In a typical week, how many times do you Once a week 02/12/2022 talk on the phone with family, friends, or neighbors? How often do you get together with friends Once a week 02/12/2022 or relatives? How often do you attend sabianism or worship More than 4 time s per year 02/12/2022 services? Do you belong to any clubs or organizations Yes 02/12/2022 such as sabianism groups, unions, fraternal or athletic groups, or [...] or slept in a usp (including now)? Sex Assigned at Date Recorded Not on file documented as of this encounter Progress Notes Kamilla Cortes M.D. - 03/20/2018 2:30 PM CDT CHIEF COMPLAINT/REASON FOR VISIT Facial peeling HISTORY OF PRESENT ILLNESS Ms. Maryam Cortez is a 72 y.o. female who presents today for evaluation of an oval shaped patchof skin on the right cheek for the last two years. This area of skin becomes scaly and peels with dry flakes once or twice per week. Currently, she has no skin peeling. She denies any pain or itching in this area. She saw a dermatology physician medical administrative assistant in [place] six months who felt that this was due to a contactant. The patient stopped using the facial lotion she been using and switched to a moisturizing lotion for sensitive skin by Angel. The patient has not applied any creams, lotions or other products to treat the patch of skin which concerns her. The patient has a history of psoriasis involving her arms, legs and occasionally her trunk for the last five years. Her psoriasis is different from her current facial rash. The patient has a history of basal cell carcinoma involving her chin area treated with Mohs surgery at [place] around 2016. Allergies Allergen Reactions ??? Sulfa (Sulfonamide Antibiotics) Anaphylaxis ??? Adhesive Itching ??? Carrot Other (see comments) ??? Carrot Oil Rash And carrot powder ??? Cigarette Smoke Shortness of breath ??? Codeine Nausea And Vomiting ??? Gluten GI intolerance Including wheat ??? Grass Pollen Other (see comments) ??? Hazelnut Anaphylaxis ??? Latex Other (see comments) Per patient she was told to say yes since she has had multiple surgeries ??? Maple Flavor Diarrhea ??? Melon Flavor Rash ??? Sulfite Rash ??? Tree And Shrub Pollen Other (see comments) And wood smoke ??? Tree Nut Hives PAST MEDICAL HISTORY Basal cell carcinoma involving her chin area treated with Mohs surgery at [place] around 2016 FAMILY HISTORY No family history for melanoma. PHYSICAL EXAM General: Awake, alert, in no acute distress, and with appropriate affect. Skin: Examination of the right cheek reveals no rashes or abnormal lesions or patches. There is no evidence for any peeling today. Examination of the face otherwise reveals a few lentigines. Examination of the right lateral chin reveals a scar with no evidence for recurrence of basal cell carcinoma. Full skin exam performed August 2017 and was therefore deferred today. No suspicious lesions for skin cancer today. IMPRESSION/REPORT/PLAN #1 Right lateral chin: History of basal cell carcinoma No evidence of recurrence of exam today. Follow-up immediately if any evidence for recurrence. Otherwise return in August 2018 for a recheck. #2 Right cheek: History of peeling skin, currently not present I had a lengthy discussion with the patient. There are no lesions or patches on exam today. Small focal patch she was seeing on the right cheek is compatible with redundant skin folds that when stretched look completely normal which when given the mirror to her and pointed out, she is in complete agreement with. She does not presently have any skin peeling in the area she describes. I asked her to take a picture when she notices the flaking. I recommended CeraVe moisturizer. PATIENT EDUCATION Ready to learn. No apparent learning barriers were identified. Learning preferences include listening. Explained diagnosis and treatment plan; patient/guardian of patient expressed understanding of thecontent. By signing my name below, I, Shadi Gracia, attest that this documentation has been prepared underthe direction and in the presence of Kamilla Cortes M.D.. Electronically Signed: ruby Morgan. 03/20/2018. 3:27 PM . Kamilla Parrish M.D., personally performed the services described in this documentation. All medical record entries made by the scribe were at my direction and in my presence. I have reviewed the chart and discharge instructions (if applicable) and agree that the record reflects my personal performance and is accurate and complete. Kamilla Cortes M.D. . 03/20/2018. 3:44 PM. documented in this encounter Plan of Treatment Not on filedocumented as of this encounter Visit Diagnoses Diagnosis Cancer Skin Basal Cell Personal History - Primary Lentigo documented in this encounter
--- OUTSIDE RECORDS SUMMARY | 2022-04-05 15:48 | XMS_ITS | Encounter Summary ---
:1945 Author Organization [facility] Address [address] [place] [address] Care Team Providers Name Role Phone Unavailable Primary Care Provider Unavailable Reason for Visit Reason Comments chest tightness/difficulty breathing Encounter Details Date Type Department Care Team Description 03/11/2021 Clinical Division of Jessica, chest Communication Nephrology and Joshua Santos Jr., tightness/d ifficult Hypertension in D.O. y breathing [place], [place] [address] [facility] [address] [place] [phone] Social History Tobacco Use Types Packs/Day Years [...] or relatives? How often do you attend roman catholic or protestant More than 4 time s per year 02/12/2022 services? Do you belong to any clubs or organizations Yes 02/12/2022 such as roman catholic groups, unions, fraternal or athletic groups, or [...] minutes do you engage in exercise at is 60 min 02/12/2022 level? Stress Answer [...] slept in a skilled nursing (including now)? Sex Assigned at Date Recorded Not on file documented as of this encounter Miscellaneous Notes Telephone Encounter - Kirti Weiss - 03/11/2021 8:50 AM CDT Patient would like you to call her back at [phone]. She said the hydralazine isn't working any better than the amlodipine did. Her chest feels tight, she's coughing, and she is having difficulty breathing and would like to speak to you. She had a difficult time when she tried to go to bed last night. Thank you. documented in this encounter Plan of Treatment Not on filedocumented as of this encounter Visit Diagnoses Not on filedocumented in this encounter
--- OUTSIDE RECORDS SUMMARY | 2022-04-05 15:48 | XMS_ITS | Encounter Summary ---
:1945 Author Organization [facility] Address [address] [place] [address] Care Team Providers Name Role Phone Unavailable Primary Care Provider Unavailable Reason for Visit Appointment Request (Routine) - Closed Specialty Diagnoses / Procedures Referred By Contact Refer red To Contact Nephrology and Lina Meléndez Hypertension [place] [address] [place] [address] Referral ID Status Reason Start Date Expiration Date Visits Requ ested Visits Authorized [id number] Closed 12/03/2020 12/03/2021 1 1 Encounter Details Date Type Department Care Team Description 12/22/2020 External Outreach Division of Jake Randhawa, Diabcharlie es Mellitus Type 2 (HCC); Nephrology and Amparo Perez, Hypertension Essential Primary Hypertension in Ph.D. [place], [place] [address] [facility] [address] [place] [phone] Social History Tobacco Use Types Packs/Day Years [...] or relatives? How often do you attend uatsdin or sabianist More than 4 time s per year 02/12/2022 services? Do you belong to any clubs or organizations Yes 02/12/2022 such as uatsdin groups, unions, fraternal or athletic groups, or [...] place to sleep or slept in a mcc (including now)? Sex Assigned at Date Recorded Not on file documented as of this encounter Consult Notes Ana Mendez M.D., Ph.D. - 12/22/2020 9:30 AM CDT Please see scanned in note under document viewer tab for the [facility] outreach visit from this date. Addendum: Urine culture shows E.coli which is sensitive to cipro. Continue current antibiotic regimen to complete 7 days. Lachelle Randhawa M.D., Ph.D. documented in this encounter Plan of Treatment Not on filedocumented as of this encounter Visit Diagnoses Diagnosis Diabetes Mellitus Type 2 (HCC) Hypertension Essential Primary documented in this encounter
--- OUTSIDE RECORDS SUMMARY | 2022-04-05 15:48 | XMS_ITS | Encounter Summary ---
:1945 Author Organization [facility] Address [address] [place] [address] Care Team Providers Name Role Phone Unavailable Primary Care Provider Unavailable Encounter Details Date Type Department Care Team Description 03/11/2021 Clinical Communication Division of Nephrology Joshua Lopez and Hypertension kyler Santos Jr., D.O. [place], [place] [address] [facility] [address] [place] [phone] [phone] Social History Tobacco Use Types Packs/Day Years [...] or relatives? How often do you attend sikhism or baptism More than 4 time s per year 02/12/2022 services? Do you belong to any clubs or organizations Yes 02/12/2022 such as sikhism groups, unions, fraternal or athletic groups, or [...] place to sleep or slept in a fpc (including now)? Sex Assigned at Date Recorded Not on file documented as of this encounter Miscellaneous Notes Telephone Encounter - Joshua Lopez Jr., D.O. - 03/11/2021 10:36 AM CDT Phone note and care coordination Phoned her today at her request. She has hypertension, and has had medication tolerance is in the past-and was seen by my colleague and the patient requested a 2nd opinion regarding her hypertension. She has tolerated amlodipine poorly, it was initiated 5 mg earlier this spring and since it initiationshe was struggling with feelings of tachycardia, shortness of breath, and chest heaviness. Her blood pressure was suboptimally controlled, and the amlodipine was increased to 10 mg last month. As I visited with her she desperately wish to come off of the amlodipine. Of note as well she had previously been taking clonidine. This is on the background of her having CKD, and having had side effects to Gurinder inhibitors in the past, and reportedly angiotensin receptor blocking drugs-although in thelatter case it is uncertain what the side effects were. She also related that with beta blockade during her episode of a stroke in 2017 after receiving metoprolol IV she developed bradycardia, and an emergency was called her bedside. We had substituted hydralazine 10 mg 3 times daily for her amlodipine at my visit with her. She is not feeling any better, and calls today. I returned her message. She is experiencing shortness of breath. She has not gained weight, she denies lower extremity swelling, she has a dry cough. I questioned her regards whether she felt that her rings were tight or that she had gained any fluid weight, she state that this is absolutely not the case. She has asthma, she feels as though the shortness of breath does not improve when she uses her inhalers however. She also describes chest heaviness. We had a long discussion regards an evaluation for cardiovascular disease. She is reluctant but willing to go ahead with this. Additionally I discussed that given her current blood pressures of 160s over 80s, with pulses in the88 to 90s range, accompanying her sensation of her heart hemorrhage, and beating out of her chest, that she would be perhaps optimally treated with a combination beta-zach such as carvedilol. She is not interested in this, due to her previous episode with the beta-zach in the hospital. We compromised, and she is willing to try low-dose carvedilol 3.125 mg twice daily, and we will proceed with her taking her 1st dose under direct observed conditions at the clinic in [place]. I havealso provided and e-mail copy-see below, which outlines the request for cardiovascular evaluation, and direct observed therapy with her beta-zach prescription. Her serum creatinine level has been stable but in the 2.5 range, we could also consider low-dose angiotensin receptor blocking agents, and we also discussed diuretics. However, she has a issue with hyponatremia, and hypomagnesemia with a reset Osmo stat. Therefore diuretics are also a difficult option for her. Difficult set of circumstances-see email below, sent to the nursing and care team at [facility].. Dear Lina: Can you order an ECG, CXR and a stress test (excersize nuclear) for her regarding chest pain? Also Im starting carvedilol 3.25 mg twice a day for her HTN--she is extremely concerned about this medication--as she had bradycardia while admitted post stroke with IV metoprolol in 2017. I am asking for her to take the first dose at clinic and be observed for 90 minutes in clinic- maybe just in the lobby, and checks of BP and pulse every 30 min or so??? to ally her concerns. Her current heart rate is 88 and she feels it hammering and too fast. Can you call with these two work streams, and let DR Meléndez know please? Carl Lopez Jr, DO., Regional Line Installer [facility], four h agent, Acoustical Engineer: Division of Nephrology and Hypertenison, , ,email: [email or web address] documented in this encounter Plan of Treatment Not on filedocumented as of this encounter Visit Diagnoses Not on filedocumented in this encounter
--- OUTSIDE RECORDS SUMMARY | 2022-04-05 15:48 | XMS_ITS | Encounter Summary ---
:1945 Author Organization [facility] Address [address] [place] [address] Care Team Providers Name Role Phone Unavailable Primary Care Provider Unavailable Reason for Visit Reason Comments Med Reaction-side effects Encounter Details Date Type Department Care Team Description 12/31/2020 Clinical Division of [place] Med Reaction-si de Communication Nephrology and Ana Randhawa effects Hypertension in M.D., Ph.D. [place], [place] [address] [place] [address] [address] [place] [phone] Social History Tobacco Use Types Packs/Day Years [...] or relatives? How often do you attend holiness or spiritism More than 4 time s per year 02/12/2022 services? Do you belong to any clubs or organizations Yes 02/12/2022 such as holiness groups, unions, fraternal or athletic groups, or [...] or slept in a fdc (including now)? Sex Assigned at Date Recorded Not on file documented as of this encounter Miscellaneous Notes Telephone Encounter - Ana Mendez M.D., Ph.D. - 12/31/2020 5:00 PM CDT I have called patient today regarding her symptoms after taking amlodipine. I have recommended patient to take it at nighttime and perhaps this will help to make it more tolerable. I have recommended patient to continue with clonidine only twice a day. She tells me that she had tried to take it 3 times a day plus amlodipine and she felt her blood pressure to be very low. I reinforced the recommendation of taking and clonidine only twice a day with a goal to decrease clonidine and eventually stopping it due to several side effects associated with this medication. I have explained to patient that it will take about 3 weeks to really see the effect of the amlodipine on her blood pressure control, if she is able to tolerate the medication for 3 weeks. However if she was to present more symptoms then she should stop taking it and inform me about it. Regarding the use of ciprofloxacin, patient has used this medication in the past with no side effects, her last UTI was treated with Cipro. And for this reason I started it as an empiric therapy while waiting for urine culture results. Once urine culture results showed sensitivity to ciprofloxacin I decided to continued therapy to complete 7 days. This was explained to patient as well. Telephone Encounter - Akshat Coulter Jackelyn - 12/31/2020 8:25 AM CDT Caller is: patient If not the patient, does the caller have authorization? Reason for call: Chief Complaint Patient presents with ??? Med Reaction-side effects Pertinent Information: Patient called in concerns to her medication reactions. She states 3 hours after taking the Amlodipine in the morning she starts to experience headaches, anxiety, feeling hot, face is red, foot and ankle is swollen (also from surgery). Her BP runs around 170/88, 167/87. She states she feels not happy. She also thinks she's having side effects from the Ciprofloxacin that you prescribed her for her bladder infection. It's causing her pain in her left hip and knee. She would like a callback. Best # to reach pt is below. Thank you. Preferred Communication Method: [phone] (mobile) Patient pharmacy: [facility] #[id number] [place] [id number] Additional instructions: documented in this encounter Plan of Treatment Not on filedocumented as of this encounter Visit Diagnoses Not on filedocumented in this encounter
--- OUTSIDE RECORDS SUMMARY | 2022-04-05 15:48 | XMS_ITS | Encounter Summary ---
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 [facility] Procedures Management Visit [address] [place] [phone] Referral ID Status Reason Start Date Expiration Date Visits V isits Requested Authorized [id number] Authorized 01/26/2022 01/26/2023 10 10 Reason for Visit Radiation Therapy (Routine) - Authorized Specialty Diagnoses / Procedures Referred By Contact Refer red To Contact Diagnoses Malignant Neoplasm Of Breast Upper Outer Quadrant Female Right (HCC) [facility].D. [facility] Procedures Management Visit [address] [place] [address] [phone] Referral ID Status Reason Start Date Expiration Date Visits V isits Requested Authorized [id number] Authorized 01/26/2022 01/26/2023 10 10 Encounter Details Date Type Department Care Team Description 02/15/2022 Hospital Encounter Department of Ktay Dobson Neoplasm Radiation Oncology [place] Of Breast Upper in [place], [address] [place], [place] Female Right (HCC) [address] [facility] [address] [place], [place] [phone] (Work) [phone] Social History Tobacco Use Types Packs/Day Years [...] or relatives? How often do you attend orthodox or mormon More than 4 time s per year 02/12/2022 services? Do you belong to any clubs or organizations Yes 02/12/2022 such as orthodox groups, unions, fraternal or athletic groups, or [...] Pressure - - Pulse - - Temperature 36.4 ??C (97.6 ??F) 02/15/2022 9:38 AM CDT Respiratory Rate - - Oxygen Saturation - - Inhaled Oxygen Concentration - - Weight 73.2 kg (161 lb 4.8 oz) 02/15/2022 9:38 AM CDT Height - - Body Mass Index 26.84 02/08/2022 2:25 PM CDT documented in this [...] flash glucose scanning 0 12/31/2021 reader (FREESTYLE DAJA) [facility] flash glucose sensor 0 12/31/2021 (FREESTYLE DAJA) kit fluticasone (FLONASE) 50 Administer 2 sprays [...] this encounter Progress Katy Brenner M.D. - 02/15/2022 10:00 AM CDT ATTESTATION FOR MANAGEMENT VISIT I saw and evaluated the patient and participated in the arshad portions of the service as noted below. I reviewed the documentation of Ms. Tammi Villarreal RN and agree with the findings and plan. The patient appears well on exam. She has mild erythema of the breast. We will continue with radiation as planned and we anticipate that she will complete her treatments this week. We anticipate that Rev. Maryam Cortez will complete radiation treatment as planned without interruptions. The course of treatment was tolerated well. The patient experienced toxicities of grade 1 fatigue and dermatitis during radiation treatment. We discussed her Free Style Daja numbers. I explained that she should use her finger stick number if there is a discrepancy in the numbers and if she has concerns with the accuracy to change the CGM. She would like me to check her skin again on Monday. I will see her on the machine. Follow-up will be with Tisha; we will [...] stage IA (pT1b, cN0, cM0, G2, ER+, AR+, HER2-) invasive ductal carcinoma of the right breast. She is now undergoing radiation therapy. Treatment Course: 1xBreastR Plan ID Fractions Dose / Fraction (cGy) Dose Treated (cGy) Dose Planned (cGy) First Treatment Last Treatment Elapsed Days [id number] 02/14/2022 02/15/2022 1 Course Summary 02/14/2022 02/15/2022 1 The patient was seen and examined today with Dr. Dobson. The patient reports that she is applying moisturizing lotion to the treatment area. She noticed soreness to lumpectomy incision yesterday but this has since resolved today. She has sensitive skin and used a prescription soap. She has noticed a 20-30 point difference between finger stick blood sugar readings compared with her glucose sensor readings since starting radiation. She is unable to routinelycheck her blood sugar via finger sticks as this causes her skin to crack. She describes sunburn feeling to the treatment field area. PATIENT REPORTED SYMPTOM SCREEN FATIGUE (Scale: 0 = no fatigue; 10 = worst fatigue you can imagine): 1 PAIN (Scale: 0 = no pain; 10 = worst pain you can imagine): 2 OVERALL QUALITY OF LIFE (Scale: 0 = as bad as can be; 10 = as good as can be): 9-10 OBJECTIVE Temp 36.4 ??C (Temporal) Wt 73.2 kg BMI 26.84 kg/m?? PHYSICAL EXAM General: Alert and oriented in no apparent distress. Skin: brisk erythema to the lower aspect of the right breast; no areas of desquamation; no areas of infection or erythema noted to lumpectomy incision. ASSESSMENT / PLAN #1 Stage IA (pT1b, cN0, cM0, G2, ER+, AR+, HER2-) invasive ductal carcinoma of the right breast s/p right breast lumpectomy on December 21, 2021 #2 Radiotherapy to the whole right breast initiated on February 14, 2022; anticipated date of completion is on February 18, 2022 The patient is tolerating radiation treatment well overall. She will continue to apply moisturizing lotion to the treatment field area to help provide moisture until skin is no longer erythematous. Shecan start to apply Aquaphor daily as needed due to increase erythema to the treatment field area. Aloe vera gel can be used as needed to help reduce sunburn sensation. Patient is ok to monitor her blood sugar readings from glucose sensor during radiation treatment since she only has 3 more days left. Patient plans on starting endocrine therapy 1 week post completion of radiation therapy. Dr. Giles will see patient in follow up care. We will keep Radiation Oncology follow up to an as needed basis only. Skin changes should start to heal in 2-3 weeks after last radiation treatment. She will contact us with any questions or concerns. We will continue with radiation treatment as planned. Patient stated a full understanding to the plan of care discussed today. Toxicities reviewed with Dr. Dobson today. Signed by: Tammi Villarreal R.N. 02/15/2022 12:58 PM CDT documented in this encounter Plan of Treatment Scheduled Orders Name Type Priority Associated Diagnoses Order S chedule Management Visit Radiation Oncology Routine Malignant Neoplasm Once for 1 Of Breast Upper Occurrences starting Outer Quadrant 02/15/2022 un til Female Right (HCC) 2 documented as of this encounter Visit Diagnoses Diagnosis Malignant Neoplasm Of Breast Upper Outer Quadrant Female Right (HCC) documented in this encounter
--- OUTSIDE RECORDS SUMMARY | 2022-04-05 15:48 | XMS_ITS | Encounter Summary ---
:1945 Author Organization [facility] Address [address] [place] [address] Care Team Providers Name Role Phone Unavailable Primary Care Provider Unavailable Encounter Details Date Type Department Care Team Description 02/22/2016 Hospital Encounter HX RST DERM SURG OP Denzel Woods M.D. [address] [place] [phone] (Wo rk) Social History Tobacco Use Types Packs/Day Years Used Date Smoking Tobacco: Never Assessed Alcohol Habits Answer Date Recorded How often [...] or relatives? How often do you attend mandaeism or baptist More than 4 time s per year 02/12/2022 services? Do you belong to any clubs or organizations Yes 02/12/2022 such as mandaeism groups, unions, fraternal or athletic groups, or [...] place to sleep or slept in a prison (including now)? Sex Assigned at Date Recorded Not on file documented as of this encounter Last Filed Vital Signs Vital Sign Reading Time Taken Comments Blood Pressure 179/89 02/22/2016 8:30 AM CDT Vital sign result from Clinical Notes. Pulse 90 02/22/2016 8:30 AM CDT Vital sign result from Clinical Notes. Temperature - - Respiratory Rate - - Oxygen Saturation - - Inhaled Oxygen Concentration - - Weight - - Height - - Body Mass Index - - documented in this encounter Medications at Time of Discharge Medication Sig Dispensed Refills Start Date End Date magnesium oxide 400 mg Take 4 tablets by 0 2015 capsule mouth daily. metFORMIN (GLUCOPHAGE) Take 500 mg by mouth 2 0 0 01/31/2009 500 mg tablet (two) times a day. vit Take 1 capsule by 0 01/31/2009 C/E/Zn/coppr/lutein/zeaxa mouth daily. n (PRESERVISION AREDS-2 ORAL) documented as of this encounter Plan of Treatment Not on filedocumented as of this encounter Visit Diagnoses Not on filedocumented in this encounter
--- OUTSIDE RECORDS SUMMARY | 2022-04-05 15:48 | XMS_ITS | Encounter Summary ---
:1945 Author Organization [facility] Address [address] [place] [address] Care Team Providers Name Role Phone Unavailable Primary Care Provider Unavailable Reason for Visit Appointment Request (Routine) - Closed Specialty Diagnoses / Procedures Referred By Contact Refer red To Contact Nephrology and Hypertension Referral ID Status Reason Start Date Expiration Date Visits Requ ested Visits Authorized [id number] Closed 09/16/2021 09/16/2022 1 Encounter Details Date Type Department Care Team Description 09/28/2021 External Outreach Division of Jessica, Hyperti on And Chronic Kidney Disease Stage 1 To 4 (Primary Dx); Nephrology and Joshua Santos Jr., Diabetes Mili litus Type 2 (HCC); Hypertension in [place] Hyponatremia [place], [place] [address] [facility] [address] [place] [phone] Social History Tobacco Use Types Packs/Day Years [...] or relatives? How often do you attend mosque or cheondoism More than 4 time s per year 02/12/2022 services? Do you belong to any clubs or organizations Yes 02/12/2022 such as mosque groups, unions, fraternal or athletic groups, or [...] documented as of this encounter Progress Notes Joshua Lopez Jr., D.O. - 09/28/2021 1:00 PM CDT Please see scanned in note under document viewer tab for the [facility] outreach visit from this date. Medical Problems Diagnosis List Diabetes Mellitus Type 2 (HCC) Overview Signed 11/15/2016 10:48 AM by Conversion, [facility] Problem List [id number] DM II [Diabetes mellitus type II] Hypertension And Chronic Kidney Disease Stage 1 To 4 Overview Signed 11/15/2016 10:48 AM by Conversion, [facility] Problem List [id number] Hypertension Hyponatremia documented in this encounter Plan of Treatment Not on filedocumented as of this encounter Visit Diagnoses Diagnosis Hypertension And Chronic Kidney Disease Stage 1 To 4 - Primary Diabetes Mellitus Type 2 (HCC) Hyponatremia documented in this encounter
--- OUTSIDE RECORDS SUMMARY | 2022-04-05 15:48 | XMS_ITS | Encounter Summary ---
:1945 Author Organization [facility] Address [address] [place] [address] Care Team Providers Name Role Phone Unavailable Primary Care Provider Unavailable Reason for Visit Reason Comments Follow-up Encounter Details Date Type Department Care Team Description 12/24/2020 Clinical Communication Division of Nephrology Syeda Braswell, Follow-up and Hypertension in [place], [place] [address] [facility] [address] [place] [phone] Social History Tobacco Use Types Packs/Day Years [...] or relatives? How often do you attend protestant or presybeterian More than 4 time s per year 02/12/2022 services? Do you belong to any clubs or organizations Yes 02/12/2022 such as protestant groups, unions, fraternal or athletic groups, or [...] place to sleep or slept in a chcf (including now)? Sex Assigned at Date Recorded Not on file documented as of this encounter Miscellaneous Notes Telephone Encounter - Ana Mendez M.D., Ph.D. - 12/25/2020 12:39 PM CDT I have called patient today but unable to reach out to her. I have left a voice message to call back. Her urine culture shows E coli sensitive to cipro. She should take antibiotic for 7 days. For her BP, I have added amlodipine 5 mg daily, and for her to decrease her clonidine to 0.3 mg twice per day. Lachelle Randhawa M.D., Ph.D. Telephone Encounter - Syeda Braswell, R.N. - 12/24/2020 3:09 PM CDT SUBJECTIVE CHIEF COMPLAINT / REASON FOR CALL Follow-up ASSESSMENT I contacted patient today to inform her that the antibiotic prescribed by Dr. Joseph is good to treat her UTI. Patient indicates she has not picked up the antibiotic yet. I also reviewed that an amlodipine prescription was send into the pharmacy as well. She has further questions about how to take this as she states she was to taper her clonidine but does not recall the directions. This patient is seen at the [facility] and the visit notes from 12/22/20 are not yet accessible. PLAN Disposition/Recommendation: I asked her to picker operator her prescriptions and start the cipro. I will review the recommendations for clonidine with Dr. Joseph and contact her back with recommendations.. Information/Education: patient/caller able to teach back. Caller agreeable to plan of care: yes. The following references were used: nursing clinical judgement. Telephone Encounter - Syeda Braswell R.N. - 12/24/2020 3:03 PM CDT ----- Message from Ana Randhawa M.D., Ph.D. sent at 12/24/2020 2:53 PM CDT ----- Regarding: Urine culture results Hi, Could you please call patient ? Please let her know that her urine culture showed E. Coli ([facility] faxed results) and that it is sensitive to cipro, for her to continue on the same therapy tocomplete 7 days. Thanks! documented in this encounter Plan of Treatment Not on filedocumented as of this encounter Visit Diagnoses Not on filedocumented in this encounter
--- OUTSIDE RECORDS SUMMARY | 2022-04-05 15:48 | XMS_ITS | Encounter Summary ---
:1945 Author Organization [facility] Address [address] [place] [address] Care Team Providers Name Role Phone Unavailable Primary Care Provider Unavailable Reason for Visit Reason Comments Med Refill Encounter Details Date Type Department Care Team Description 02/27/2021 Refill Division of Nephrology and Ana Coleman, Med Refill Hypertension [place], Ph.D. [place] [address] [address] [facility] [address] [place] [phone] [place] [address] [phone] Social History Tobacco Use Types Packs/Day Years [...] or relatives? How often do you attend muslim or scientology More than 4 time s per year 02/12/2022 services? Do you belong to any clubs or organizations Yes 02/12/2022 such as muslim groups, unions, fraternal or athletic groups, or [...] place to sleep or slept in a jail (including now)? Sex Assigned at Date Recorded Not on file documented as of this encounter Plan of Treatment Not on filedocumented as of this encounter Visit Diagnoses Not on filedocumented in this encounter
--- OUTSIDE RECORDS SUMMARY | 2022-04-05 15:48 | XMS_ITS | Encounter Summary ---
:1945 Author Organization [facility] Address [address] [place] [address] Care Team Providers Name Role Phone Unavailable Primary Care Provider Unavailable Reason for Visit Appointment Request (Routine) - Closed Specialty Diagnoses / Procedures Referred By Contact Refer red To Contact Nephrology and Hypertension Referral ID Status Reason Start Date Expiration Date Visits Requ ested Visits Authorized [id number] Closed 01/14/2022 01/14/2023 1 Encounter Details Date Type Department Care Team Description 02/08/2022 External Outreach Division of Jessica, Hyperti on And Chronic Kidney Disease Stage 1 To 4 (Primary Dx); Nephrology and Joshua Santos Jr., Hyponatremia ; Hypertension in [place] Malignant Neoplasm Of Breast Upper Outer Quadrant Female Right (HCC); [place], [place] [address] [facility] Diabetes Mellitus Type 2 (HCC) [address] [place] [address] [phone] Social History Tobacco Use Types Packs/Day Years [...] or relatives? How often do you attend jain or temple More than 4 time s per year 02/12/2022 services? Do you belong to any clubs or organizations Yes 02/12/2022 such as jain groups, unions, fraternal or athletic groups, or [...] place to sleep or slept in a alf (including now)? Sex Assigned at Date Recorded Not on file documented as of this encounter Last Filed Vital Signs Vital Sign Reading Time Taken Comments Blood Pressure 142/80 02/08/2022 2:25 PM CDT Pulse 64 02/08/2022 2:25 PM CDT Temperature - - Respiratory Rate - - Oxygen Saturation - - Inhaled Oxygen Concentration - - Weight 72.6 kg (160 lb) 02/08/2022 2:25 PM CDT Height 165.1 cm (5' 5) 02/08/2022 2:25 PM CDT Body Mass Index 26.63 02/08/2022 2:25 PM CDT documented in this encounter Progress Notes Joshua Lopez Jr., D.O. - 02/08/2022 2:00 PM CDT Referring Provider: No primary care provider on file. [facility] CKD out reach REASON FOR VISIT Follow-up regards resistant hypertension, CKD stage 1, diabetes mellitus type 2, recent diagnosis ofbreast carcinoma HISTORY OF PRESENT ILLNESS Ms. Cortez is a 76 y.o. female who presents with the above matters, she is doing well on the carvedilol 6.25 mg orally twice daily. She has no orthostatic issues, no chest pain she intermittently getsshort of breath. She uses her inhalers regularly, and the dyspnea seems better. Her pressures have still been a bit labile, she will have some pressures in the 170s, but usually the pressures are in the 120s to 140s. She has not had lower extremity swelling. She is quite careful with the sodium. Following screening mammography, she was discovered to have breast carcinoma. She is now receiving radiation therapy after a lumpectomy. She is still minute string to her christian, has no troubles with her [id number] exercise regimen nor her requirements for her work. She has had some erratic blood sugars. She once per week will have sugars in the 70s, which she senses and usually treats prior to any substantial hypoglycemia reaction. We discussed how these develop and the possible trends or tendencies for these. They seem to be associated more recently with her corticosteroid injection in her epidural space. She tends to have vacillating sugars, where when she treats low sugars they often become far too high and then a variation begins occurring as she treats the high sugars. 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 Osteoarthritis Osteoporosis Other Irritable Bowel Syndrome Pain Low Back Chronic Polyp Colon Psoriasis Rosacea Scoliosis Stenosis Spine Foraminal Stroke (HCC) Current Outpatient Medications: atorvastatin (LIPITOR) 10 mg tablet, Take 10 mg by mouth at bedtime., Disp: , Rfl: B complex-vitamin (SUPER B-50) capsule, Take 1 capsule by mouth daily., Disp: , Rfl: TWILAAGLKAMARI HALEY U-100 INSULIN 100 unit/mL (3 mL) injection, Inject as directed daily., Disp: , Rfl: carvediloL (COREG) 6.25 mg tablet, Take 1 tablet (6.25 mg total) by mouth 2 (two) times a day with meals., Disp: 180 tablet, Rfl: 3 cholecalciferol (VITAMIN D3) 1,000 Unit tablet, Take 3,000 Units by mouth daily., Disp: , Rfl: clopidogrel (PLAVIX) 75 mg tablet, Take 75 mg by mouth daily., Disp: , Rfl: diazePAM (VALIUM) 2 mg tablet, Take 2 mg by mouth as needed. Very limited usage, Disp: , Rfl: fluticasone (FLONASE) 50 mcg/actuation nasal spray, Administer 2 sprays into affected nostril(s) atbedtime., Disp: , Rfl: HUMALOG KWIKPEN INSULIN 100 unit/mL injection, Inject as directed daily., Disp: , Rfl: magnesium oxide 400 mg capsule, Take 4 tablets by mouth daily., Disp: , Rfl: metFORMIN (GLUCOPHAGE) 500 mg tablet, Take 500 mg by mouth 2 (two) times a day., Disp: , Rfl: pantoprazole (PROTONIX) 40 mg EC tablet, Take 40 mg by mouth daily., Disp: , Rfl: vit C/E/Zn/coppr/lutein/zeaxan (PRESERVISION AREDS-2 ORAL), Take 1 capsule by mouth daily., Disp: ,Rfl: REVIEW OF SYSTEMS All other systems reviewed and are negative. OBJECTIVE BP 142/80 Pulse 64 Ht 165.1 cm Wt 72.6 kg BMI 26.63 kg/m?? PHYSICAL EXAMINATION General: Awake alert oriented HEENT: NEEL, EOMI, Mucous membranes moist, no oral lesions Neck: No Masses, No Bruits Lungs: Clear to ascultation Heart: Regular Rate and Rhythm, No ectopy Murmurs or rubs Abdomen: Soft, Non-tender Extremities: No cyanosis, No clubbing: No edema Neuro: Cranial Nerves intact, Gait is normal, strength grossly normal Skin: no suspicious lesions identified Psychiatric: Normal affect DIAGNOSTICS Reviewed ASSESSMENT / PLAN #1 Hypertension And Chronic Kidney Disease Stage 1 To 4 Her renal function has been gratifyingly stable. Following multiple trials, we have been able to find a regimen which she does well with, without unacceptable side effects, which is relatively simple to implement with a carvedilol 6.25 mg twice daily. She needs to be cautious with the sodium, and is avoiding NSAIDs and Meraz 2 inhibitors. She has no evidence of sleep disordered breathing. #2 Hyponatremia This is chronic, and due to a reset Osmo stat. With her breast carcinoma we could be tempted to blame this on a paraneoplastic phenomenon, although the breast mass was just found this year and the hyponatremia is quite longstanding. She is on a relatively high protein diet I have asked her to be cautious with extra sodium. The high-protein diet for her means that she should get at least 8 if not 10-12 oz of animal proteinper day, lean proteins being best. Plant proteins are certainly acceptable. #3 Malignant Neoplasm Of Breast Upper Outer Quadrant Female Right (HCC) She is currently receiving radiation therapy. #4 Diabetes Mellitus Type 2 (HCC) Her control has been excellent, but more recently somewhat variable after the epidural steroid injections. She is well-versed in how to take care of this and she has been fine tuning her insulin regimen. She is exercising regularly and she understands she could perhaps do a bit better job with timing of her meals. She is quite busy, walking her dogs and exercising as well as with her work. Total time: 35 minutes Counseling Time: 30 minutes Joshua Lopez Jr., D.O. documented in this encounter Plan of Treatment Not on filedocumented as of this encounter Visit Diagnoses Diagnosis Hypertension And Chronic Kidney Disease Stage 1 To 4 - Primary Hyponatremia Malignant Neoplasm Of Breast Upper Outer Quadrant Female Right (HCC) Diabetes Mellitus Type 2 (HCC) documented in this encounter
--- OUTSIDE RECORDS SUMMARY | 2022-04-05 15:48 | XMS_ITS | Encounter Summary ---
:1945 Author Organization [facility] Address [address] [place] [address] Care Team Providers Name Role Phone Unavailable Primary Care Provider Unavailable Reason for Referral Outpatient (Routine) - Authorized Specialty Diagnoses / Procedures Referred By Contact Refer red To Contact Radiation Oncology Katy Dobson [facility] Lawanda Christensen [address] [place] [address] Referral ID Status Reason Start Date Expiration Date Visits V isits Requested Authorized [id number] Authorized 01/26/2022 01/26/2023 10 10 Radiation Therapy (Routine) - Authorized Specialty Diagnoses / Procedures Referred By Contact Refer red To Contact Diagnoses Malignant Neoplasm Of Breast Upper Outer Quadrant Female Right (HCC) Katy Dobson M.D. [facility] Procedures Management Visit [address] [place] [address] Referral ID Status Reason Start Date Expiration Date Visits V isits Requested Authorized [id number] Authorized 01/26/2022 01/26/2023 10 10 Radiation Therapy (Routine) - Authorized Specialty Diagnoses / Procedures Referred By Contact Refer red To Contact Diagnoses Malignant Neoplasm Of Breast Upper Outer Quadrant Female Right (HCC) Katy Dobson M.D. RST Radiation Oncology Procedures Prior Auth Rad Tx NV RADTN TX DEL >=1 MEV COMPLEX [address] [place], [place] [address] [address] [facility] [place] [address] Referral ID Status Reason Start Date Expiration Date Visits V isits Requested Authorized [id number] Authorized 02/08/2022 01/26/2023 19 19 Radiation Therapy (Routine) - Closed Specialty Diagnoses / Procedures Referred By Contact Refer red To Contact Diagnoses Malignant Neoplasm Of Breast Upper Outer Quadrant Female Right (HCC) Katy Dobson M.D. [facility] Region Procedures Initial Rad Onc Treatment Planning CT Simulation [address] [place] [address] Referral ID Status Reason Start Date Expiration Date Visits Requ ested Visits Authorized [id number] Closed 01/26/2022 01/26/2023 1 1 Encounter Details Date Type Department Care Team Description 01/26/2022 Orders Only Department of Katy Dobson N eoplasm Of Radiation Oncology in [place] Breast Upper Outer [place] [address] [facility] Quadrant Female Right [address] [place], [place] (HCC) (Primary Dx) [place] [phone] Social History Tobacco Use Types Packs/Day Years [...] or relatives? How often do you attend episcopalian or baptism More than 4 time s per year 02/12/2022 services? Do you belong to any clubs or organizations Yes 02/12/2022 such as episcopalian groups, unions, fraternal or athletic groups, or [...] or slept in a long-term (including now)? Sex Assigned at Date Recorded Not on file documented as of this encounter Plan of Treatment Scheduled Orders Name Type Priority Associated Order Schedule Diagnoses Prior Auth Rad Tx Radiation Oncology Routine Malignant Neoplas m Ordered: 01/26/2022 Of Breast Upper Outer Quadrant Female Right (HCC) Management Visit Radiation Oncology Routine Malignant Neoplasm 10 Occurrences Of Breast Upper starting 08/2021 Outer Quadrant until 023 Female Right (HCC) Scheduled Referrals Name Type Priority Associated Order Schedule Diagnoses Radiation Oncology Outpatient Referral Routine 10 Occurrences nurse visit starting 2021 (clinic) until 5 documented as of this encounter Results Initial Rad Onc Treatment Planning CT Simulation (02/09/2022 2:33 PM CDT) Specimen (Source) Anatomical Location Collection Method / Collectio n Time Received Time / Laterality Volume Narrative ALVARENGA SAMSON - 02/09/2022 2:33 PM CDT SapPatricia sands R, RTT ? 02/09/2022 ??2:34 PM Initial Rad Onc Treatment Planning CT Si mulation Date/Time: 02/09/2022 2:33 PM Performed by: Katy Dobson M.D. Authorized by: Katy Dobson M.D. Katy Dobson M.D. RADIATION ONCOLOGY ORDERABLE S Performing Organization Address City/State/ZIP Code Phon e Number [place] ALVARENGA SAMSON moya documented in this encounter Visit Diagnoses Diagnosis Malignant Neoplasm Of Breast Upper Outer Quadrant Female Right (HCC) - Primary Malignant Neoplasm Of Breast Upper Outer Quadrant Female Right (HCC) documented in this encounter
--- OUTSIDE RECORDS SUMMARY | 2022-04-05 15:48 | XMS_ITS | Encounter Summary ---
:1945 Author Organization [facility] Address [address] [place] [address] Care Team Providers Name Role Phone Unavailable Primary Care Provider Unavailable Reason for Visit Appointment Request (Routine) - Closed Specialty Diagnoses / Procedures Referred By Contact Refer red To Contact Radiation Oncology Diagnoses Malignant Neoplasm Of Breast Female Right (HCC) Renea Giles M.D. [address] [place] [address] Referral ID Status Reason Start Date Expiration Date Visits Requ ested Visits Authorized [id number] Closed 01/21/2022 01/21/2023 1 1 Encounter Details Date Type Department Care Team Description 02/03/2022 Hospital Encounter Department of Katy Dobson Neoplasm Radiation Oncology [place] Of Breast Upper in [place], [address] [place], [place] Female Right (HCC) [address] [facility] [address] (Primary Dx) [place], [place] [phone] [address] (Work) [phone] Social History Tobacco Use Types Packs/Day Years [...] or relatives? How often do you attend rastafari or scientologist More than 4 time s per year 02/12/2022 services? Do you belong to any clubs or organizations Yes 02/12/2022 such as rastafari groups, unions, fraternal or athletic groups, or [...] Sign Reading Time Taken Comments Blood Pressure 162/62 02/03/2022 12:51 PM CDT Pulse 67 02/03/2022 12:51 PM CDT Temperature 36.8 ??C (98.3 ??F) 02/03/2022 12:51 PM CDT Respiratory Rate - - Oxygen Saturation - - Inhaled Oxygen Concentration - - Weight 72.4 kg (159 lb 11.2 oz) 02/03/2022 12:51 PM CDT Height - - Body Mass Index - [...] topically 2 (two) cream times a day. cholecalciferol (VITAMIN Take 3,000 Units by 0 [...] glucose scanning 0 12/31/2021 reader (FREESTYLE KYLIE) [facility] glucose sensor 0 12/31/2021 (FREESTYLE KYLIE) [...] (COREG) 6.25 Take 6.25 mg by 0 12/20/2 022 03/16/2022 mg tablet mouth 2 (two) times a day. documented as of this encounter Consult Notes Mariela Patterson P.A.-C., M.S. - 02/03/2022 1:00 PM CDT SUBJECTIVE REQUESTING PROVIDER Renea Giles M.D. REASON FOR CONSULT 1. Malignant Neoplasm Of Breast Upper Outer Quadrant Female Right (HCC) SUPERVISED BY: Katy Dobson M.D. HISTORY OF PRESENT ILLNESS Rev. Maryam Cortez is a 76-year-old female with stage IA (pT1b, cN0, cM0, G2, ER+, PA+, HER2-) invasive ductal carcinoma of the right breast, who presents today for an opinion regarding the role of radiation therapy in the management of the patient's disease. Her oncologic history is as follows: Oncology History Malignant Neoplasm Of Breast Upper Outer Quadrant Female Right (HCC) 11/02/2021 Imaging Bilateral screening mammogram demonstrated an asymmetric density posterior right breast superior aspect, 17 cm from the nipple. Benign calcifications left breast. BI-RADS 0. 11/05/2021 Imaging Right breast diagnostic mammogram demonstrated a persistent nodular density within the upper outer quadrant right breast, 16 cm from the nipple. Associated microcalcifications were present. Benign cyst mid depth right breast and benign calcifications right breast. Targeted right breast ultrasound performed in the upper outer quadrant at the 10 o'clock position, 11 cm from the nipple, demonstrated a solid hypoechoic mass with microcalcifications corresponding with the mammographic finding measuring 5 x 3 x 4 mm. BI-RADS 4. 11/16/2021 Biopsy/Pathology Ultrasound-guided biopsy of the right breast hypoechoic lesion with microcalcifications measuring 5x 3 x 4 mm at the 10 o'clock position, 11 cm from the nipple was performed. PATHOLOGY: A) RIGHT BREAST, 10:00, 11 CM FROM NIPPLE, ULTRASOUND-GUIDED CORE BIOPSY: 1. Invasive ductal carcinoma a. Jeelna grade: II of III; Jelena score: 6 of 9 b. Angio-lymphatic invasion: Absent c. Associated DCIS: No defnite 2. Breast Ancillary Testing: a. Hormone Receptors: Estrogen receptor: Positive (98%, strong staining) Progesterone receptor: Positive (46%, moderate staining) b. HER2 by IHC: Equivocal (2+ by manual morphometry) c. HER2 by FISH: Negative HER2/CEP17 ratio: 1.54 HER2 signals/cell: 3.82 CEP17 signals/cell: 2.47 d. Ki-67 quantitative IHC: 16% by image analysis 12/21/2021 Surgery and Procedures Wire localized right breast lumpectomy was performed by Dr. Yolette Schafer. PATHOLOGY: A) RIGHT BREAST, WIRE-LOCALIZED LUMPECTOMY: 1. Invasive ductal carcinoma, Jelena grade II of III a. Size: 6 mm b. Core biopsy site is associated with tumor 2. Ductal carcinoma in situ (DCIS), nuclear grade 2, Cribriform and Solid type 3. Margins: a. Invasive carcinoma is 9 mm from the medial margin b. DCIS is 2 mm from the medial margin 4. Breast Ancillary Testing: Performed on prior case ([id number]) a. Hormone Receptors: Estrogen receptor: Positive (98%, strong staining) Progesterone receptor: Positive (46%, moderate staining) b. HER2 by IHC: Equivocal (2+ by manual morphometry) c. HER2 by FISH: Negative HER2/CEP17 ratio: 1.54 HER2 signals/cell: 3.82 CEP17 signals/cell: 2.47 d. Ki-67 quantitative IHC: 16% by image analysis B) RIGHT BREAST, WIRE-LOCALIZED LUMPECTOMY: 1. Non-proliferative fibrocystic change with dense stromal fibrosis and focal fibroadenomatoid change 2. Negative for atypia and malignancy SPECIMEN Procedure: Excision (less than total mastectomy) Specimen Laterality: Right TUMOR Tumor Site: Clock position : 10 o'clock Tumor Site: Distance from nipple (Centimeters): 11 cm Histologic Type: Invasive carcinoma of no special type (ductal) Glandular (Acinar) / Tubular Differentiation: Score 3 Nuclear Pleomorphism: Score 2 Mitotic Rate: Score 1 Overall Grade: Grade 2 (scores of 6 or 7) Tumor Size: Greatest dimension of largest invasive focus (Millimeters): 6 mm Tumor Focality: Single focus of invasive carcinoma Ductal Carcinoma In Situ (DCIS): Present : Negative for extensive intraductal component (EIC) Architectural Patterns: Cribriform Architectural Patterns: Solid Nuclear Grade: Grade II (intermediate) Necrosis: Present, focal (small foci or single cell necrosis) Lobular Carcinoma In Situ (LCIS): Not identified Lymphovascular Invasion: Not identified Dermal Lymphovascular Invasion: No skin present Microcalcifications: Present in DCIS Microcalcifications: Present in invasive carcinoma Microcalcifications: Present in non-neoplastic tissue Treatment Effect in the Breast: No known presurgical therapy MARGINS Invasive Carcinoma Margins: Uninvolved by invasive carcinoma Distance from Closest Margin (Millimeters): 9 mm Closest Margin(s): Medial DCIS Margins: Uninvolved by DCIS Distance from Closest Margin (Millimeters): 2 mm Closest Margin(s): Medial LYMPH NODES Regional Lymph Nodes: No lymph nodes submitted or found PATHOLOGIC STAGE CLASSIFICATION (pTNM, AJCC 8th Edition) Primary Tumor (pT): pT1b Regional Lymph Nodes (pN): pNX 01/13/2022 Other Oncotype DX recurrence score result of 17. <1% group average absolute chemotherapy benefit. Distant recurrence risk at 9 years of 5% with adjuvant endocrine therapy. 01/20/[address] Renea Giles who reviewed the Oncotype score and discussed the role of adjuvant endocrine therapy. During the discussion, the patient noted a history of an ischemic stroke in 2015 for which she remains on Plavix indefinitely. Additionally, she is considering surgical stabilization of her spine in the future and there has been concern about the ability of the surgery to be successful in the setting of osteoporosis. Therefore, Dr. Giles has recommended observation only and no systemic treatment. Referral to Radiation Oncology. Follow-up with Medical Oncology at six-month intervals. 02/08/2022 - Radiation Therapy Radiation Therapy Treatment Details (Noted on 01/26/2022) Site: Right Breast Technique: No technique specified Goal: Curative Planned Treatment Start Date: 02/08/2022 INTERVAL HISTORY The patient was seen and examined today with Dr. Dobson. The patient reports doing well overall. She reports decreased energy with fatigue rated 2/10 due to her lower back pain. She is continuing to remain active and walk outside. She reports healing well overall following surgery. She denies pain, numbness, or tingling of the right breast. She denies rightarm range of motion limitations. She denies right arm lymphedema. She has stable shortness of breathrelated to her diagnosis of asthma. She denies cough. She does report having sensitive skin with redness, itching, and peeling that is worse in the winter and with using hot water. The patient denies ahistory of prior radiation therapy, connective tissue disorders, or inflammatory bowel disease. Her ECOG performance status is 0. REVIEW OF SYSTEMS Review of systems was negative except as documented above. PATIENT REPORTED SYMPTOM SCREEN FATIGUE (Scale: 0 = no fatigue; 10 = worst fatigue you can imagine): 2 PAIN (Scale: 0 = no pain; 10 = worst pain you can imagine): 1 OVERALL QUALITY OF LIFE (Scale: 0 = as bad as can be; 10 = as good as can be): 9 PAST MEDICAL HISTORY Past Medical History: Diagnosis Date Anemia Of [...] Rosacea Scoliosis Stenosis Spine Foraminal Stroke (HCC) PAST SURGICAL HISTORY Past Surgical History: Procedure Laterality Date BLADDER SURGERY BLEPHAROPLASTY BREAST LUMPECTOMY CATARACT EXTRACTION W/ INTRAOCULAR LENS IMPLANT CERVICAL FUSION HYSTERECTOMY N/A Hysterectomy LUMBAR FUSION OTHER CONVERTED SHX (SEE COMMENT) N/A 02/22/2016 >Mohs micrographic surgery with complex layered closure. SHOULDER SURGERY Left TOE FUSION TOTAL KNEE REPLACEMENT Bilateral Total Knee Replacement FAMILY HISTORY Family History Problem Relation Age of Onset Psoriasis Father SOCIAL HISTORY Social History Socioeconomic History Marital status: Spouse name: Oren Tobacco Use Smoking status: Never Smokeless tobacco: Never Substance and Sexual Activity Alcohol use: Yes Comment: Very rare Social History Narrative She is to her , Oren. She has 1 child and her has 4. They have 8 grandchildren. 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 OBJECTIVE BP (!) 162/62 (BP Location: Right arm, Patient Position: Sitting, Cuff Size: Small) Pulse 67 Temp 36.8 ??C (Temporal) Wt 72.4 kg PHYSICAL EXAM GENERAL: Alert and oriented in no apparent distress. ASSESSMENT / PLAN #1 Stage IA (pT1b, cN0, cM0, G2, ER+, PA+, HER2-) invasive ductal carcinoma of the right breast s/p right breast lumpectomy on December 21, 2021 I had a discussion with the patient regarding her breast cancer diagnosis including information regarding her staging, grade, and hormone receptors. We reviewed her oncologic history as detailed above.We also had a detailed discussion regarding the risks, benefits, and alternatives of radiotherapy in this setting. We discussed radiation therapy to the whole right breast in 5 or 15 fractions. We alsodiscussed the option of omission of radiation therapy. I discussed the logistics as well as the acute and chronic side effects of radiotherapy. The acute side effects are common and include fatigue, radiation dermatitis, breast swelling and discomfort. Long-term side effects include skin changes and texture changes of the breast, possible breast asymmetry, pulmonary scarring (typically of no clinical significance), radiation pneumonitis, increased risk of rib fracture with significant trauma, lymphedema, and a very small risk of secondary malignancy. The patient was provided with a written summary of recommendations. Her questions were answered to her verbalized satisfaction. The patient has already met with Dr. Giles in Medical Oncology who did not recommend chemotherapy. They also discussed omission of endocrine therapy at the time of their visit. However, the patient reports that she has received a lumbar epidural infusion and she is not planning on proceeding with lumbar surgery at this time. Due to this, she reports that she would possibly consider endocrine therapy. She is scheduled for a phone visit with Dr. Giles later today for further discussion. Dr. Dobson also met with the patient today, please see her attestation for details. After discussion, the patient decided that she would like to proceed with radiation therapy in 5 fractions. She was not available to proceed with CT simulation today, so this was re-scheduled to Wednesday, February 09, 2022. The patient was provided with our contact information. She was asked to contact us sooner with questions or concerns. She verbally expressed her understanding of the plan. EDUCATION Ready to learn, no apparent learning barriers were identified; learning preferences include listening. Explained diagnosis and treatment plan; patient expressed understanding of the content. PRIMARY PROVIDER Lina Meléndez M.D. I personally spent 60 minutes in care of the patient today. Time includes both non face to face and face to face patient care. Signed by: Mariela Patterson P.A.-C. MMireilleSMireille 02/03/2022 4:25 PM CDT [facility] [address] [place] [address] Associated attestation - Katy Dobson M.D. - 02/03/2022 5:59 PM CDT RADIATION ONCOLOGY CONSULT I saw and evaluated the patient and participated in the arshad portions of the service. I reviewed the documentation of Ms. Mariela Patterson PA-C, and agree with the findings and plan. Please see Ms. Patterson's detailed note for the patient's initial presentation and work-up. Briefly, Rev. Maryam Cortez is a 76 year old female with a resected early stage breast cancer who presents now to discuss adjuvant radiation options. She was found to have a 6mm, Grade 2, IDC that was ER/R positive and HER 2 negative by FISH. Margins were negative. Her nodes were clinically negative. She had an OncotypeDX of 17. She has probably decided to not get hormonal therapy, but is still going to talk with Dr. Giles some more about this options. I have reviewed her imaging, operative and pathology reports. On exam, she appears well. Heart and Lungs are within normal limits. She has no spinous process tenderness to palpation. Breasts - not examined at this time as she will return for simulation. I will examine her breasts at that time. We discussed the findings above and below in this note with the patient. We discussed her treatment alternatives. We discussed various radiation options including an [facility] [id number] study that is randomizingfavorable early stage breast cancer patients to breast radiotherapy vs observation. She is not interested in this study (and we don't quite yet have it open in [place]). We discussed observation given her age and favorable findings as an alternative. We discussed the rationale, risks, side effects and goals of radiation therapy. We discussed the rationale, risks, side effects and adjuvant goals of radiation therapy. We discussed the acute as well as exterminator helper risks, including, but not limited to fatigue, skin erythema/desquamation, fibrosis of the breast, lymphedema, small risks of bone fracture, radiation pneumonitis, and secondary malignancies. She understood and her questions were answered. She wished to proceed with treatment. She will return for simulation next week. We tentatively plan on delivering 2600 cGy in 5 fractions starting February 14, 2022. My thanks to Gilmar Walsh and [facility] and for the opportunity to participate in this patient's care. EDUCATION Ready to learn, no apparent learning barriers were identified; learning preferences include listening. Explained diagnosis and treatment plan; patient expressed understanding of the content. CONSENT Discussed the risks, benefits, alternatives, and the necessity of other members of the healthcare team participating in the procedure. All questions answered and consent given. DIAGNOSIS #1 Stage IA (pT1b, cN0, cM0, G2, ER+, PA+, HER2-) invasive ductal carcinoma of the right breast s/p right breast lumpectomy on December 21, 2021 Signed by: Katy Dobson M.D. 02/03/2022 5:52 PM CDT Radiation Oncology [facility] [address] [place] [id number] documented in this encounter Miscellaneous Notes Addendum Note - Marquita Lizama - 02/03/2022 1:00 PM CDT Encounter addended by: Marquita Lizama on: 02/04/2022 7:33 AM Actions taken: Letter saved documented in this encounter Plan of Treatment Not on filedocumented as of this encounter Visit Diagnoses Diagnosis Malignant Neoplasm Of Breast Upper Outer Quadrant Female Right (HCC) - Primary documented in this encounter
--- OUTSIDE RECORDS SUMMARY | 2022-04-05 15:48 | XMS_ITS | Encounter Summary ---
:1945 Author Organization [facility] Address [address] [place] [address] Care Team Providers Name Role Phone Unavailable Primary Care Provider Unavailable Reason for Visit Appointment Request (Routine) - Closed Specialty Diagnoses / Procedures Referred By Contact Refer red To Contact Nephrology and Lina Meléndez Hypertension [place] [address] [place] [address] Referral ID Status Reason Start Date Expiration Date Visits Requ ested Visits Authorized [id number] Closed 02/04/2021 02/04/2022 1 1 Encounter Details Date Type Department Care Team Description 03/08/2021 External Outreach Division of Jessica, Hypertensi on And Chronic Kidney Disease Stage 1 To 4 (Primary Dx); Nephrology and Joshua Santos Jr., Diabetes Mili litus Type 2 (HCC); Hypertension in D.O. Hyponatremia [place], [place] [address] [facility] [address] [place] [phone] Social History Tobacco Use Types Packs/Day Years [...] or relatives? How often do you attend restorationist or mosque More than 4 time s per year 02/12/2022 services? Do you belong to any clubs or organizations Yes 02/12/2022 such as restorationist groups, unions, fraternal or athletic groups, or [...] documented as of this encounter Consult Notes Joshua Lopez Jr., D.O. - 03/08/2021 2:00 PM CDT Please see scanned in note under document viewer tab for the [facility] outreach visit from this date. DX: HTN- multiple medicine sensitivities documented in this encounter Plan of Treatment Not on filedocumented as of this encounter Visit Diagnoses Diagnosis Hypertension And Chronic Kidney Disease Stage 1 To 4 - Primary Diabetes Mellitus Type 2 (HCC) Hyponatremia documented in this encounter
--- OUTSIDE RECORDS SUMMARY | 2022-04-05 15:48 | XMS_ITS | Encounter Summary ---
:1945 Author Organization [facility] Address [address] [place] [address] Care Team Providers Name Role Phone Unavailable Primary Care Provider Unavailable Reason for Visit Appointment Request (Routine) - Authorized Specialty Diagnoses / Procedures Referred By Contact Refer red To Contact Nephrology and Hypertension Referral ID Status Reason Start Date Expiration Date Visits V isits Requested Authorized [id number] Authorized 11/25/2021 11/25/2022 1 Encounter Details Date Type Department Care Team Description 01/04/2022 External Outreach Division of Juan F Lopez on And Chronic Kidney Disease Stage 1 To 4 (Primary Dx); Nephrology and Joshua Santos Jr., Hyponatremia ; Hypertension in [place].O. Diabetes Mellitus Type 2 (HCC) [place], [place] [address] [facility] [address] [place] [address] [phone] Social History Tobacco Use Types Packs/Day Years [...] or relatives? How often do you attend amish or orthodoxy More than 4 time s per year 02/12/2022 services? Do you belong to any clubs or organizations Yes 02/12/2022 such as amish groups, unions, fraternal or athletic groups, or [...] or slept in a detention (including now)? Sex Assigned at Date Recorded Not on file documented as of this encounter Progress Notes Joshua Lopez Jr., D.O. - 01/04/2022 11:30 AM CDT No show rescheduled for NF Neph. outreach documented in this encounter Plan of Treatment Not on filedocumented as of this encounter Visit Diagnoses Diagnosis Hypertension And Chronic Kidney Disease Stage 1 To 4 - Primary Hyponatremia Diabetes Mellitus Type 2 (HCC) documented in this encounter
--- OUTSIDE RECORDS SUMMARY | 2022-04-05 15:48 | XMS_ITS | Encounter Summary ---
:1945 Author Organization 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 T Radiation Oncology Procedures Prior Auth Rad Tx [place] RADTN TX DEL >=1 MEV COMPLEX [address] [facility] [address] [address] [facility] [place] [address] Referral ID Status Reason Start Date Expiration Date Visits V isits Requested Authorized [id number] Authorized 02/08/2022 01/26/2023 19 19 Encounter Details Date Type Department Care Team Description 02/16/2022 Hospital Encounter Department of Radiation Marilyn Dobson I., Oncology in [place] [address] [facility] [address] [place] [address] [phone] Social History Tobacco Use Types Packs/Day Years [...] How often do you attend muslim or druze More than 4 time s per year [...] place to sleep or slept in a intermediate (including now)? Education Answer Date Recorded What [...] glucose scanning 0 12/31/2021 reader (FREESTYLE KYLIE) [facility] flash glucose sensor [...]
--- OUTSIDE RECORDS SUMMARY | 2022-04-05 15:48 | XMS_ITS | Encounter Summary ---
:1945 Author Organization [facility] Address [address] [place] [address] Care Team Providers Name Role Phone Unavailable Primary Care Provider Unavailable Encounter Details Date Type Department Care Team Description 05/03/2021 Clinical Communication Division of Nephrology Joshua Lopez and Hypertension in [place]O. [place], [place] [address] [facility] [address] [place] [address] [phone] Social History Tobacco Use Types Packs/Day Years [...] or relatives? How often do you attend mu-ism or zoroastrian More than 4 time s per year 02/12/2022 services? Do you belong to any clubs or organizations Yes 02/12/2022 such as mu-ism groups, unions, fraternal or athletic groups, or [...] Encounter - Joshua Lopez Jr., D.O. - 05/03/2021 12:32 PM MOLECULAR MODELER Dpocumentation of email: Dear Ms Cortez Thanks, these look really good, I'm hopeful to see us continue on this terrific trajectory! Best DR Josey Lopez Jr, DO., [facility] Head Banquet Waiter/[facility] [place], countersinker, Radiology Technologist: Division of Nephrology and Hypertenison, , ,email: [email or web address] -----Original Message----- From: Maryam cortez <[email or web address]> Sent: Monday, May 03, 2021 8:50 AM To: Joshua Lopez Jr., D.O. <[email or web address]> Subject: [EXTERNAL] Blood Pressures I have been feeling well on Carvedilol 6.25 x2/da at approx. 7:30-8:00 am and pm with meals. I beganthe above dose on March 24. These are some recent at home BPs beginning with Mar.29 to May.03,???21. 147/76 151/74 155/78 128/65 early a.m. 119/60 early a.m. 137/77 150/75 143/77 127/62 early a.m. Maryam Dos Santos (she,her) CULAR MODELER documented in this encounter Plan of Treatment Not on filedocumented as of this encounter Visit Diagnoses Not on filedocumented in this encounter
--- OUTSIDE RECORDS SUMMARY | 2022-04-05 15:48 | XMS_ITS | Encounter Summary ---
:1945 Author Organization [facility] Address [address] [place] [address] Care Team Providers Name Role Phone Unavailable Primary Care Provider Unavailable Reason for Referral Radiation Therapy (Routine) - Closed Specialty Diagnoses / Procedures Referred By Contact Refer red To Contact Diagnoses Malignant Neoplasm Of Breast [facility] Outer [facility] Female Right (HCC) Katy Dobson M.D. 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 [facility] Procedures Initial Rad Onc Treatment Planning CT Simulation [address] [place], [place] [address] Referral ID Status Reason Start Date Expiration Date Visits Requ ested Visits Authorized [id number] Closed 01/26/2022 01/26/2023 1 1 Encounter Details Date Type Department Care Team Description 02/09/2022 Hospital Encounter Department of Katy Dobson Neoplasm Radiation Oncology [place] Of Breast Upper in [place], [address] [place], [place] Female Right (HCC) [address] [facility] [address] [place], [place] [phone] [address] (Work) [phone] Social History Tobacco Use Types Packs/Day Years [...] or relatives? How often do you attend jainism or christianity More than 4 time s per year 02/12/2022 services? Do you belong to any clubs or organizations Yes 02/12/2022 such as jainism groups, unions, fraternal or athletic groups, or [...] glucose scanning 0 12/31/2021 reader (FREESTYLE KYLIE) misc flash glucose sensor 0 12/31/2021 (FREESTYLE KYLIE) [...] a day. 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 Authorized by: Katy Dobson M.D. Simulation was performed under physician supervision based on physician order in preparation for radiation therapy. Physician was immediately available to provide assistance and direction throughout the procedure. Written consent for treatment was completed or confirmed. The patient was appropriately identified and placed in the treatment position using the necessary immobilization to ensure a reproducible treatment position. Reference nicole were placed to facilitate marking of isocenter. Area scanned: Chest Contrast used for the simulation procedure: None Patient position:head first supine and arms up Custom immobilization: Breast board Motion management: None Bolus: No CT guidance: Following positioning of the patient, a series of slices was obtained to be utilized intreatment planning. CT images were transferred to the Eclipse treatment planning system, after a reference isocenter was determined and marked. Segmentation and treatment planning will take place priorto treatment delivery. Patient set up and imaging was appropriate and completed without incident. Robotic Weld Technician use:No documented in this encounter Plan of Treatment Not on filedocumented as of this encounter Procedures Procedure Name Priority Date/Time Associated Comments Diagnosis INITIAL RAD ONC Routine 02/09/2022 2:33 PM Malignant Neoplasm Results for this TREATMENT PLANNING CDT Of Breast Upper proced ure are in CT SIMULATION Outer Quadrant the results Female Right (HCC) section. documented in this encounter Results Initial Rad Onc Treatment Planning CT Simulation (02/09/2022 2:33 PM CDT) Specimen (Source) Anatomical Location Collection Method / Collectio n Time Received Time / Laterality Volume Narrative [facility] - 02/09/2022 2:33 PM CDT Patricia Balderas R, RTT ? 02/09/2022 ??2:34 PM Initial Rad Onc Treatment Planning CT Si mulation Date/Time: 02/09/2022 2:33 PM Performed by: Katy Dobson M.D. Authorized by: Katy Dobson M.D. Katy Dobson M.D. 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
--- OUTSIDE RECORDS SUMMARY | 2022-04-05 15:48 | XMS_ITS | Encounter Summary ---
:[address] [facility] Address [address] [place] [address] Care Team Providers Name Role Phone Unavailable Primary Care Provider Unavailable Encounter Details Date Type Department Care Team Description 02/09/2022 Clinical Communication Department of Katy Dobson Radiation Oncology in [place] [facility] [address] [facility] [address] [place] [phone] Social History Tobacco Use Types Packs/Day Years [...] or relatives? How often do you attend confucianism or zoroastrian More than 4 time s per year 02/12/2022 services? Do you belong to any clubs or organizations Yes 02/12/2022 such as confucianism groups, unions, fraternal or athletic groups, or [...] place to sleep or slept in a custodial (including now)? Sex Assigned at Date Recorded Not on file documented as of this encounter Miscellaneous Notes Telephone Encounter - Katy Dobson M.D. - 02/09/2022 5:51 PM CDT I called the patient after I saw her volumes from her radiation planning CT scan. I think we should offer her IMPORT-LOW volumes (mini-tangents) as she has pendulous breasts and her tumor was in the upper outer quadrant of her breast. I explained that it will still be 5 consecutive days. She was okay with this plan. We should not affect her free style virgie which is on her outer left arm. We will geta physics consultation, but I suspect that it is more than 20cm away and should be very safe. documented in this encounter Plan of Treatment Not on filedocumented as of this encounter Visit Diagnoses Not on filedocumented in this encounter
--- OUTSIDE RECORDS SUMMARY | 2022-04-05 15:48 | XMS_ITS | Encounter Summary ---
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 T Radiation Oncology Procedures Prior Auth Rad Tx [place] RADTN TX DEL >=1 MEV COMPLEX [address] [facility] [place] [address] [address] [facility] [place] [address] Referral ID Status Reason Start Date Expiration Date Visits V isits Requested Authorized [id number] Authorized 02/08/2022 01/26/2023 19 19 Encounter Details Date Type Department Care Team Description 02/14/2022 Hospital Encounter Department of Radiation Marilyn Dobson I., [place]cology in [place] [address] [facility] [address] [place] [address] [phone] Social History Tobacco Use Types Packs/Day Years [...] How often do you attend judaism or lutheran More than 4 time s per year [...] or slept in a prison (including now)? Education Answer Date Recorded What [...] glucose scanning 0 12/31/2021 reader (FREESTYLE KYLIE) [facility] flash glucose sensor 0 12/31/2021 (FREESTYLE KYLIE) [...]
--- OUTSIDE RECORDS SUMMARY | 2022-04-05 15:48 | XMS_ITS | Encounter Summary ---
:1945 Author Organization [facility] Address [address] [place] [address] Care Team Providers Name Role Phone Unavailable Primary Care Provider Unavailable Encounter Details Date Type Department Care Team Description 03/17/2021 Clinical Communication Division of Nephrology Joshua Lopez and Hypertension kyler Santos Jr., D.O. [place], [place] [address] [facility] [address] [place] [address] [phone] Social History Tobacco Use Types Packs/Day Years [...] or relatives? How often do you attend episcopal or quaker More than 4 time s per year 02/12/2022 services? Do you belong to any clubs or organizations Yes 02/12/2022 such as episcopal groups, unions, fraternal or athletic groups, or [...] place to sleep or slept in a half-way (including now)? Sex Assigned at Date Recorded Not on file documented as of this encounter Miscellaneous Notes Telephone Encounter - Joshua Lopez Jr., [place].O. - 03/17/2021 5:09 PM CDT Phone call note: Phoned her regards confusion regards the timing of her stress test and initiation of carvedilol. We discussed again that I would like her to start carvedilol. She will do this under observed conditions at the [facility], due to her episode many years ago where she was given IV metoprolol and suffered slow heartbeat and a code team arrived-and observed her. She points out rightly that her instructions for the stress test advise her not to be taking beta-blockers for the stress test. I advised the be best for to get her blood pressure better controlled, the pulse under better control, and then schedule the stress test for 2 weeks after the carvedilol has been initiated. She understands and will proceed. Additionally, her screening serum normetanephrine came back slightly elevated, I am having her do a 24 hour collection. documented in this encounter Plan of Treatment Not on filedocumented as of this encounter Visit Diagnoses Not on filedocumented in this encounter
--- OUTSIDE RECORDS SUMMARY | 2022-04-05 15:48 | XMS_ITS | Encounter Summary ---
:1945 Author Organization [facility] Address [address] [place] [address] Care Team Providers Name Role Phone Unavailable Primary Care Provider Unavailable Encounter Details Date Type Department Care Team Description 03/11/2021 Orders Only Division of Nephrology and Chano Lopez Hypertension in [place], ., D.O. [place] [address] [facility] [address] [place] [address] [phone] (Wo rk) Social History Tobacco Use Types [...] or relatives? How often do you attend spiritism or advent More than 4 time s per year 02/12/2022 services? Do you belong to any clubs or organizations Yes 02/12/2022 such as spiritism groups, unions, fraternal or athletic groups, or [...] place to sleep or slept in a senior care (including now)? Sex Assigned at Date Recorded Not on file documented as of this encounter Plan of Treatment Not on filedocumented as of this encounter Visit Diagnoses Not on filedocumented in this encounter
--- OUTSIDE RECORDS SUMMARY | 2022-04-05 15:48 | XMS_ITS | Encounter Summary ---
:1945 Author Organization [facility] Address [address] [place] [address] Care Team Providers Name Role Phone Unavailable Primary Care Provider Unavailable Reason for Visit Reason Comments Stress test or Carvedilol Encounter Details Date Type Department Care Team Description 03/16/2021 Clinical Division of Jessica, Stress test or Communication Nephrology and Joshua Santos Jr., Carvedilol Hypertension in [place], [place] [address] [facility] [address] [place] [address] [phone] Social History Tobacco Use Types Packs/Day Years [...] or relatives? How often do you attend congregation or baptist More than 4 time s per year 02/12/2022 services? Do you belong to any clubs or organizations Yes 02/12/2022 such as congregation groups, unions, fraternal or athletic groups, or [...] to sleep or slept in a senior living (including now)? Sex Assigned at Date Recorded Not on file documented as of this encounter Miscellaneous Notes Telephone Encounter - Sonali Boswell - 03/16/2021 1:20 PM CDT Caller is: patient If not the patient, does the caller have authorization? Reason for call: Chief Complaint Patient presents with ??? Stress test or Carvedilol Pertinent Information: Patient is confused as to what she should be doing first--starting the carvedilol or doing the myocardial stress test. She states the stress test says you cannot be on carvedilol when doing the test, so now she is not sure. She has an appointment tomorrow morning under nurse supervision for the carvedilol. Should she go ahead with that? Thank you. Preferred Communication Method: [phone] (mobile) Patient pharmacy: [id number] [address] Additional instructions: documented in this encounter Plan of Treatment Not on filedocumented as of this encounter Visit Diagnoses Not on filedocumented in this encounter
--- OUTSIDE RECORDS SUMMARY | 2022-04-05 15:48 | XMS_ITS | Encounter Summary ---
:1945 Author Organization [facility] Address [address] [place] [address] Care Team Providers Name Role Phone Unavailable Primary Care Provider Unavailable Reason for Visit Reason Comments Med Refill Encounter Details Date Type Department Care Team Description 02/23/2021 Refill Division of Nephrology and Ana Coleman, Med Refill Hypertension in [place], Ph.D. [place] [address] [address] [facility] [address] [place] [address] [place] [address] [phone] Social History Tobacco Use Types Packs/Day Years [...] or relatives? How often do you attend synagogue or quaker More than 4 time s per year 02/12/2022 services? Do you belong to any clubs or organizations Yes 02/12/2022 such as synagogue groups, unions, fraternal or athletic groups, or [...] this encounter Miscellaneous Notes Telephone Encounter - Chely Spears RMireilleN. - 02/26/2021 9:38 AM CDT Refill request for amlodipine denied. Per Dr Joseph's note from December 2020, patient's PCP, Dr Lina Meléndez was going to triturating medications. documented in this encounter Plan of Treatment Not on filedocumented as of this encounter Visit Diagnoses Not on filedocumented in this encounter
--- OUTSIDE RECORDS SUMMARY | 2022-04-05 15:48 | XMS_ITS | Encounter Summary ---
:1945 Author Organization [facility] Address [address] [place] [address] Care Team Providers Name Role Phone Unavailable Primary Care Provider Unavailable Encounter Details Date Type Department Care Team Description 02/08/2022 Clinical Communication Department of Katy Dobson Radiation Oncology in [place], [place] [address] [facility] [address] [place] [phone] [phone] Social History Tobacco Use Types Packs/Day Years [...] or relatives? How often do you attend adventist or gnosticism More than 4 time s per year 02/12/2022 services? Do you belong to any clubs or organizations Yes 02/12/2022 such as adventist groups, unions, fraternal or athletic groups, or [...] slept in a nursing home (including now)? Sex Assigned at Date Recorded Not on file documented as of this encounter Miscellaneous Notes Telephone Encounter - Gloria Dickson - 02/08/2022 11:28 AM CDT Caller: patient Is there a valid authorization to speak with caller? Yes Primary Radiation Oncologist: Dr. Dobson Reason for call: patient has a question regarding her Blood Glucose monitor on her upper arm, free style, and how that will effect treatment. Please call her back to review her questions. Patient is coming for simulation on 02/09 and stated this answer could be answered then, she would prefer a phone call over all. Phone number: [phone] Is it okay to leave a voicemail on answering machine with test results? Yes Pharmacy (if medication related): N/A documented in this encounter Plan of Treatment Not on filedocumented as of this encounter Visit Diagnoses Not on filedocumented in this encounter
--- OUTSIDE RECORDS SUMMARY | 2022-04-05 15:48 | XMS_ITS | Encounter Summary ---
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 T Radiation Oncology Procedures Prior Auth Rad Tx [place] RADTN TX DEL >=1 MEV COMPLEX [address] [facility] [place] [address] [address] [facility] [place] [address] Referral ID Status Reason Start Date Expiration Date Visits V isits Requested Authorized [id number] Authorized 02/08/2022 01/26/2023 19 19 Encounter Details Date Type Department Care Team Description 02/15/2022 Hospital Encounter Department of Radiation Marilyn Dobson I., Oncology in [place] [address] [facility] [address] [place] [address] [phone] Social History Tobacco Use Types Packs/Day Years [...] or relatives? How often do you attend moravian or catholic More than 4 time s per year 02/12/2022 services? Do you belong to any clubs or organizations Yes 02/12/2022 such as moravian groups, unions, fraternal or athletic groups, or [...] place to sleep or slept in a halfway (including now)? Education Answer Date Recorded What [...] glucose scanning 0 12/31/2021 reader (FREESTYLE KYLIE) [facility] [place] [...]
--- OUTSIDE RECORDS SUMMARY | 2022-04-05 15:49 | XMS_ITS | Encounter Summary ---
:1945 Author Organization [facility] Address [address] [place] [address] Care Team Providers Name Role Phone Unavailable Primary Care Provider Unavailable Encounter Details Date Type Department Care Team Description 01/31/2009 Hospital Encounter HX [facility], M. D. Social History Tobacco Use Types Packs/Day Years [...] or relatives? How often do you attend christian or uatsdin More than 4 time s per year 02/12/2022 services? Do you belong to any clubs or organizations Yes 02/12/2022 such as christian groups, unions, fraternal or athletic groups, or [...] documented as of this encounter Discharge Summaries Alma Paula R.N. - 01/31/2009 3:38 PM CDT ED Depart Summary [facility] Emergency Department Clinical Discharge Summary PERSON INFORMATION Name MARYAM CORTEZ Age 63 Years 1945 12:00 AM Sex Female Language PCP Marital Status N [id number] Visit Id Visit Reason Nausea; NAUSEA Specialty Enc Type Emergency Med Service Emergency Medicine Referred by Track Group ERNST ED Discharge 01/31/2009 3:30 PM Tracking Id [id number] Checkout 01/31/2009 3:38 PM Checkin 01/31/2009 1:27 PM Acuity 3 -Urgent Dispo Type Discharged to Home or Self Care Arrival 01/31/2009 1:27 PM Reg Status Complete LOS 000 02:11 Address: [address] [place] [address] Comment: PROVIDER INFORMATION Provider Role Assigned Unassigned JOSHUA GALVIN MD ED Provider 01/31/2009 1:59 PM ALMA PAULA SELF PROPELLED MINING MACHINE OPERATOR Nurse 01/31/2009 2:39 PM VITALS INFORMATION Vital Sign Triage Latest Temp Oral Temp Axillary Temp Rectal 02 Sat Respiratory Rate 16 br/min 14 br/min Pulse Rate Peripheral Pulse Rate Apical Heart Rate Blood Pressure 163 mmHg / 83 mmHg 164 mmHg / 88 mmHg Comment: DIAGNOSIS Chest pain 786.5 Comment: ORDERS INFORMATION Start Time Order Type Status Stop Time Provider 01/31/2009 2:00 PM Automated Diff-5 Part Laboratory Completed 01/31/2009 2:08 PM JOSHUA GALVIN MD 01/31/2009 1:34 PM aspirin Pharmacy Completed 01/31/2009 2:22 PM JOSHUA GALVIN MD 01/31/2009 2:00 PM lorazepam Pharmacy Completed 01/31/2009 2:34 PM JOSHUA GALVIN MD 01/31/2009 1:34 PM ED Saline Lock Patient Care Ordered 01/31/2009 1:34 PM JOSHUA GALVIN MD 01/31/2009 1:34 PM Peripheral IV to Saline Lock Patient Care Ordered 01/31/2009 1:34 PM JOSHUA GALVIN MD 01/31/2009 1:34 PM Sodium Chloride 0.9% Pharmacy Ordered JOSHUA GALVIN MD 01/31/2009 2:00 PM CBC Laboratory Completed 01/31/2009 2:08 PM JOSHUA GALVIN MD 01/31/2009 2:00 PM Troponin T Laboratory Completed 01/31/2009 2:41 PM JOSHUA GALVIN MD 01/31/2009 1:00 PM EKG-Lab Laboratory Completed 01/31/2009 1:58 PM JOSHUA GALVIN MD 01/31/2009 1:34 PM Cardiac Monitoring Patient Care Ordered 01/31/2009 1:34 PM JOSHUA GALVIN MD 01/31/2009 2:00 PM Basic Metabolic Panel Laboratory Completed 01/31/2009 2:41 PM JOSHUA GALVIN MD MEDICAL INFORMATION Allergy Info: NKA Medication List: Medication/Strength Dose Route Frequency Indications/Special Instructions/Comments aspirin (aspirin) 324 mg Oral once estradiol (estradiol) 0.05 mg Topical change every 3-4 days ampicillin (ampicillin) pre dental minocycline (minocycline) Oral two times a day pravastatin (pravastatin) Oral once a day (at bedtime) omeprazole (omeprazole) Oral once a day (at bedtime) venlafaxine (Effexor) Oral once a day multivitamin with minerals (Eye Health Formula) 1 cap(s) Oral once a day aspirin (aspirin) 81 mg Oral once a day metformin (metformin) 500 mg Oral two times a day insulin lispro (Humalog) dependent on carbs Subcutaneous before each meal insulin glargine (Lantus) 28 Subcutaneous once a day (at bedtime) Comment: DISCHARGE INFORMATION Discharge Disposition: Discharged to Home or Self Care Discharge Location: DEPART REASON INCOMPLETE INFORMATION PATIENT EDUCATION INFORMATION Instructions: CHEST PAIN, Uncertain Cause Follow up: With: Address: When: JOSE MEREDITHULIHAN [address] [place] [id number] phone, fixed, [employer] (1) WithinAs needed Comments: PHYS DOC NOTES Patient: MARYAM CORTEZ - MA00 MRN Age: 63 years Sex: Female : 1945 Author: JOSHUA GALVIN MD Basic Information Time seen: Date & time 01/31/2009 13:35:00. History source: Patient. Arrival mode: Private vehicle. History limitation: None. History of Present Illness The patient presents with chest pain andAnxiety, hyperventilation. Stressed about her job. The onsetwas 1 days ago. The course/duration of symptoms is resolved. Radiating pain: none. The character of symptoms is achy. The degree at onset was moderate. The degree at maximum was moderate. The degree atpresent is none. Exacerbating factors consist of Worried about her job. Prior episodes:. Associated symptoms: nausea, anxiety and palpitations. Review of Systems Constitutional symptoms: no fever no chills. Skin symptoms: no jaundice Respiratory symptoms: Shortness of breath, sputum production no orthopnea, no cough, no hemoptysis. Cardiovascular symptoms: Chest pain, palpitations, no diaphoresis. Gastrointestinal symptoms: Nausea no abdominal pain, no vomiting. Genitourinary symptoms: no dysuria no hematuria. Musculoskeletal symptoms: no back pain Neurologic symptoms: no headache Psychiatric symptoms: Anxiety. Health Status Allergies: . No active allergies recorded. Medications: . Medication Orders lorazepam (Ativan), 0.5 mg, 0.25 mL, IV, Once Sodium Chloride 0.9% (Saline flush), 10 mL, IV, PRN, PRN aspirin, 324 mg, 4 tab(s), PO, Once Past Medical/ Family/ Social History Medical history: Medical history. No active or resolved past medical history items have been selected or recorded. Family history: Not significant. Social history: Alcohol use: Denies, Tobacco use: Denies, Drug use: Denies. Physical Examination General: Alert. mild distress. Skin: Warm. dry. Head: Normocephalic Neck: Trachea midline Eye: Pupils are equal, round and reactive to light Ears, nose, mouth and throat: Tympanic membranes clear. Oral mucosa moist. Cardiovascular: Regular rate and rhythm. No murmur. Normal peripheral perfusion. Respiratory: Lungs are clear to auscultation. respirations are non-labored. Chest wall: No tenderness Back: Nontender Musculoskeletal: Normal ROM Gastrointestinal: Soft. Nontender. Genitourinary: No tenderness Neurological: Alert and oriented to person, place, time, and situation. No focal neurological deficit observed. Lymphatics: No lymphadenopathy Psychiatric: Cooperative. appropriate mood & affect. Medical Decision Making Differential Diagnosis:Atypical chest pain. Electrocardiogram:Rate 85, normal sinus rhythm, No ST-T changes, no ectopy. Results review:Lab results : Lab View. 01/31/2009 14:00 CDT Hgb 11.3 gm/dL LOW Hct 32.7 % LOW WBC 5.3 K/mm3 RBC 3.81 M/mm3 LOW MCV 85.8 fL MCH 29.7 pg MCHC 34.6 gm/dL HI MPV 7.7 fL RDW 13.3 % Platelet 214 K/mm3 Neutro % 84.3 % HI Lymph % 10.6 % LOW [place] % 4.4 % Eos % 0.3 % Baso % 0.4 % Neutro Absolute 4.5 K/mm3 Lymph Absolute 0.6 K/mm3 LOW Monocyte Absol 0.20 K/mm3 LOW Eosino Absolute 00.0 K/mm3 LOW Basophil Absol 00.0 K/mm3 Differential? Auto Sodium Lvl 135 mmol/L Potassium Lvl 4.2 mmol/L Chloride 101 mmol/L CO2 23 mmol/L AGAP 15 mmol/L Glucose Fasting 195 mg/dL HI Creatinine 0.7 mg/dL EGFR 85.1 EGFR AA 102.9 BUN 19 mg/dL Calcium Lvl 9.2 mg/dL Troponin-T <0.010 ng/mL Reexamination/ Reevaluation Re-examination/Re-evaluation:Pain status Resolved, Notes t asleep resting comfortable. HR 98. Slightly tachy but she feels better, calmer, pain free and wishes to go. Will start her on ASA and refer toa pastry cook apprentice for outpt eval. Pt happy with this plan. Impression and Plan Diagnosis Chest pain 786.5 (ICD9 786.50, Discharge, Emergency medicine, Medical) Discharge plan Condition: Improved, Stable. Dispositioned: To home. Patient was given the following educational materials: CHEST PAIN, Uncertain Cause. Limitations: Limited activity. Follow up with: JOSE REN Within As needed. Counseled: Patient, Regarding diagnostic results, Regarding treatment plan, Regarding prescription, Patient indicated understanding of instructions. Source: [facility] POWERCHART Document Id: [id number] Electronically signed by Conversion, [facility] Linux Developer [id number] at 11/28/2016 9:41 AM CDT Alma Paula R.N. - 01/31/2009 3:38 PM CDT ED Discharge Instructions [facility] [address] [place] [address] Name: MARYAM CORTEZ Date of : 1945 12:00 AM Reason For Visit: Nausea; NAUSEA Visit Date: 01/31/2009 1:27 PM FIN: Current Date: 01/31/2009 15:38:08 Address: [address] [place] [id number] Primary Care Provider: IMPORTANT: [facility] would like to thank you for allowing us to assist you with your healthcare needs. We examined and treated you today on an emergency basis only. This was not a substitute for, or an effort to provide, complete medical care. If you had any cultures, special tests, or x-rays performed during your visit, your final reports will be reviewed and we will contact you if there are any new or significant findings other than what was discussed with you during your visit today. You have received patient education materials and information regarding your injury/ill ness. Follow these instructions and take all medications as prescribed. If you, ( MARYAM CORTEZ ), have any problems that we have not discussed, please call or visit your doctor right away. If you cannot reach your doctor, return to the Emergency Department. Follow-Up Instructions: With: Address: When: JOSE REN [address] [place] [address] phone, fixed, [employer] (1) WithinAs needed Comments: Patient Education Materials: CHEST PAIN: UNCERTAIN CAUSE Based on your exam today, the exact cause of your chest pain is not certain. Your condition does notseem serious at this time, and your pain does not appear to be coming from your heart. However, sometimes the signs of a serious problem take more time to appear. Therefore, watch for the warning signslisted below. HOME CARE: 1) Rest today and avoid strenuous activity. 2) Take any prescribed medicine as directed. FOLLOW UP with your doctor or this facility as instructed or if you do not start to feel better within 24 hours. [NOTE: If an X-ray or EKG (cardiogram) was made, it will be reviewed by another specialist. You willbe notified of any new findings that may affect your care.] RETURN PROMPTLY or contact your doctor if any of the following occur: -- A change in the type of pain: if it feels different, becomes more severe, lasts longer, or beginsto spread into your shoulder, arm, neck, jaw or back -- Shortness of breath or increased pain with breathing -- Cough with dark colored sputum (phlegm) or blood -- Weakness, dizziness, or fainting Prescriptions & Home Medications: Medication/Strength Dose Route Frequency Indications/Special Instructions/Comments aspirin (aspirin) 324 mg Oral once estradiol (estradiol) 0.05 mg Topical change every 3-4 days ampicillin (ampicillin) pre dental minocycline (minocycline) Oral two times a day pravastatin (pravastatin) Oral once a day (at bedtime) omeprazole (omeprazole) Oral once a day (at bedtime) venlafaxine (Effexor) Oral once a day multivitamin with minerals (Eye Health Formula) 1 cap(s) Oral once a day aspirin (aspirin) 81 mg Oral once a day metformin (metformin) 500 mg Oral two times a day insulin lispro (Humalog) dependent on carbs Subcutaneous before each meal insulin glargine (Lantus) 28 Subcutaneous once a day (at bedtime) Patient Visit Summary: MARYAM CORTEZ has been given the following list of patient education materials, prescriptions, Home Medications and follow-up instructions: Follow-up Instructions: With: Address: When: JOSE REN [address] [place] [id number] phone, fixed, [employer] (4) WithinAs needed Comments: Patient Education Materials: CHEST PAIN, Uncertain Cause Prescriptions & Home Medications: Fill New Prescriptions: aspirin 324 mg Oral once Continue These Medications: ampicillin pre dental aspirin 81 mg Oral once a day estradiol 0.05 mg Topical change every 3-4 days insulin glargine (Lantus) 28 Subcutaneous once a day (at bedtime) insulin lispro (Humalog) dependent on carbs Subcutaneous before each meal metformin 500 mg Oral two times a day minocycline Oral two times a day multivitamin with minerals (Eye Health Formula) 1 cap(s) Oral once a day omeprazole Oral once a day (at bedtime) pravastatin Oral once a day (at bedtime) venlafaxine (Effexor) Oral once a day Medication Reconciliation: Reconciliation is a process of identifying the most accurate list of all medications a patient is taking - including name, dosage, frequency, and route - and using this list to provide to the patient information about how to take those medications. MARYAM CORTEZ or estuardoee has reviewed the home medications you have listed with us. Review the following instructions: You have NOT received any prescriptions and you have told us you are not currently taking any home medications You have NOT received any prescriptions. You have been provided a discharge medications list and you may CONTINUE taking your medications as previously prescribed by your regular providers. You have received the listed prescriptions and BEGIN all listed prescriptions as directed. Since you have listed no home medications, please check with your family doctor if you are taking any other medications. You have received the listed prescriptions and BEGIN all listed prescriptions as directed. Youhave been provided a discharge medications list and you may CONTINUE all home medications as previously prescribed by your regular providers. You have received the listed prescriptions and BEGIN all listed prescriptions as directed. Youhave been provided a discharge medications list. The following CHANGES have been made to your medication list; Otherwise, CONTINUE all home medications as previously prescribed by your regular provider. IMPORTANT: We examined and treated you today on an emergency basis only. This was not a substitute for, or an effort to provide, complete medical care. In most cases, you must let your doctor check youagain. Tell your doctor about any new or lasting problems. We cannot recognize and treat all injuries or illnesses in one Emergency Department visit. If you had special tests, such as EKG's or X- rays, we will review them again within 24 hours. We will call you if there are any new suggestions. Please follow the instructions above carefully. I, MARYAM CORTEZ , have received this information and my questions have been answered. I havediscussed any challenges I see with this plan with the nurse or physician. Patient Signature Date Responsible Person Signature (as appropriate) Date MARYAM CORTEZ or Responsible Person has received this information and tells me that all questions have been answered. Provider Signature Date Source: [facility] POWERCHART Document Id: [id number] Electronically signed by Conversion, [facility] Linux Developer [id number] at 11/28/2016 9:41 AM CDT documented in this encounter Medications at Time of Discharge Medication Sig Dispensed Refills Start Date End Date metFORMIN (GLUCOPHAGE) Take 500 mg by mouth 2 0 0 01/31/2009 500 mg tablet (two) times a day. vit Take 1 capsule by 0 01/31/2009 C/E/Zn/coppr/lutein/zeaxa mouth daily. n (PRESERVISION AREDS-2 ORAL) documented as of this encounter Nursing Notes Alma Paula R.N. - 01/31/2009 1:32 PM CDT ED Primary Assessment ED Primary Assessment Entered On: 01/31/2009 13:37 CDT Performed On: 01/31/2009 13:32 CDT by ALMA PAULA RN Reason For Visit Problems(Active) DM II [Diabetes mellitus type II] Name of Problem: DM II [Diabetes mellitus type II] ; Recorder: ALMA PAULA RN; Confirmation: Confirmed ; Classification: Nursing ; Code: 0 ; ContributorSystem: PowerChart ; Last Updated: 01/31/2009 8:39 CDT ; Life Cycle Date: 01/31/2009 ; Life Cycle Status: Active ; Vocabulary: ICD-9-CM Hypertension Name of Problem: Hypertension ; Recorder: ALMA PAULA RN; Confirmation: Confirmed ; Classification: Nursing ; Code: 0 ; Contributor System: PowerChart ; Last Updated: 01/31/2009 8:40 CDT ; Life Cycle Date: 01/31/2009 ; Life Cycle Status: Active ; Vocabulary: ICD-9-CM Diagnoses(Active) Chest pain 786.5 Date: 01/31/2009 8:37 CDT ; Diagnosis Type: Discharge ; Confirmation: Confirmed ; Classification: Medical ; Clinical Service: Emergency medicine ; Code: ICD-9-CM ; Probability: 0 ; Diagnosis Code: 786.50 Triage Chief Complaint Description: patient states feeling icky yesterday and today woke and went to work and became progressively nauseated ..vomited x 1 and had chest pain just left ot the sternum... also some sob and diaphoretic with nausea Mode of Arrival ED: Ambulance Track: Medical Pain Symptoms: Yes ALMA PAULA RN - 01/31/2009 13:32 CDT Pain Pain Assessment Grid Pain 1 Location: Chest Intensity: 0 ALMA PAULA RN - 01/31/2009 13:32 CDT FAINA FAINA Level 1: No FAINA Level 2: No FAINA Level 3: Many ALMA PAULA RN - 01/31/2009 14:40 CDT DCP GENERIC CODE Tracking Acuity: 3 -Urgent Tracking Group: [facility] ALMA PAULA RN - 01/31/2009 14:40 CDT Allergy Allergies (Active) NKA Estimated Onset Date: Unspecified ; Created By: ALMA PAULA RN; Reaction Status: Active ; Category: Drug ; Substance: NKA ; Type: Allergy ; Updated By: ALMA PAULA RN;Reviewed Date: 01/31/2009 14:41 CDT Respiratory Airway: Patent Respirations: Unlabored Respiratory Pattern: Regular Respiratory Detailed Assessment: Yes ALMA PAULA RN - 01/31/2009 13:32 CDT Resp Detailed Breath Sounds Assessment Grid BUL: Clear BLL: Clear ALMA PAULA RN - 01/31/2009 13:32 CDT Cardiovascular Heart Rhythm: Regular Skin Color: Normal for ethnicity Skin Description: Dry Skin Temperature: Warm Cardiovascular Detailed Assessment: Yes ALMA PAULA RN - 01/31/2009 13:32 CDT CV Detailed Cardiac Rhythm: Sinus rhythm, Sinus tachycardia Ectopy Frequency: no ectopy rate 90-105 ALMA PAULA RN - 01/31/2009 13:32 CDT Neurological Level of Consciousness: Alert Orientation: Oriented x 3 Characteristics of Speech: Clear ALMA PAULA RN - 01/31/2009 13:32 CDT ED Psychosocial Affect/Behavior: Calm Domestic Concerns: None ALMA PAULA RN - 01/31/2009 13:32 CDT Gastrointestinal Nutrition ED: Adequate GI Detailed Assessment: Yes ALMA PAULA RN - 01/31/2009 13:32 CDT GI Detailed GI Patient Stated Symptoms: Nausea ALMA PAULA RN - 01/31/2009 13:32 CDT Bowel Sounds Grid LUQ: Normoactive RUQ: Normoactive LLQ: Normoactive ALMA PAULA RN - 01/31/2009 13:32 CDT Integumentary Integumentary Patient Stated Symptoms: None Skin Integrity: Intact ALMA PAULA RN - 01/31/2009 13:32 CDT Musculoskeletal Fall Prevention Education Provided: Yes ALMA PAULA RN - 01/31/2009 13:32 CDT Source: [employer] Document Id: [id number] CDT!8 documented in this encounter ED Notes Alma Paula R.N. - 01/31/2009 2:42 PM CDT ED Disposition Summary ED Disposition Summary Entered On: 01/31/2009 14:43 CDT Performed On: 01/31/2009 14:42 CDT by ALMA PAULA RN ED Disposition Summary Accompanied By: Alone Mode of Discharge: Stretcher Nurse Receiving Report: report to [address] [place] [address] nurse Patient Status at Discharge from ED: Improved ALMA PAULA RN - 01/31/2009 14:42 CDT Source: [employer] Document Id: [id number] CDT!6 Alma Paula R.N. - 01/31/2009 2:30 PM CDT ED Nurse Reassess ED Nurse Reassess Entered On: 01/31/2009 15:13 CDT Performed On: 01/31/2009 14:30 CDT by ALMA PAULA RN Resp Reassess Respiratory Patient Stated Symptoms: None Respirations: Unlabored Cough: None ALMA PAULA RN - 01/31/2009 15:13 CDT Source: [facility] [employer] Document Id: [id number] CDT!5 Krystyna Mir R.N. - 01/31/2009 1:39 PM CDT ED Pre-Arrival Note Pre-Arrival Summary Name: ping sidhu, Current Date: 01/31/2009 13:39:44 CDT Gender: Female : Age: Pre-Arrival Type: Ambulance ETA: 01/31/2009 13:49:00 CDT Primary Care Physician: Presenting Problem: vomiting diarrhea Pre-Arrival User: KRYSTYNA MIR RN Referring Source: Location 06 Pre-Arrival Communication Form Vital Signs:194/110 97 100%ra Glucose 210 Miscellaneous Issues:Nausea and vomiting, lightheaded, started this am, getting worse [facility] Document Id: [id number] Joshua Galvin M.D. - 01/31/2009 1:34 PM CDT Chest Pain *ED Patient: MARYAM CORTEZ - MA00 MRN Age: 63 years Sex: Female : 1945 Author: JOSHUA GALVIN MD Basic Information Time seen: Date & time 01/31/2009 13:35:00. History source: Patient. Arrival mode: Private vehicle. History limitation: None. History of Present Illness The patient presents with chest pain andAnxiety, hyperventilation. Stressed about her job. The onsetwas 1 days ago. The course/duration of symptoms is resolved. Radiating pain: none. The character of symptoms is achy. The degree at onset was moderate. The degree at maximum was moderate. The degree atpresent is none. Exacerbating factors consist of Worried about her job. Prior episodes:. Associated symptoms: nausea, anxiety and palpitations. Review of Systems Constitutional symptoms: no fever no chills. Skin symptoms: no jaundice Respiratory symptoms: Shortness of breath, sputum production no orthopnea, no cough, no hemoptysis. Cardiovascular symptoms: Chest pain, palpitations, no diaphoresis. Gastrointestinal symptoms: Nausea no abdominal pain, no vomiting. Genitourinary symptoms: no dysuria no hematuria. Musculoskeletal symptoms: no back pain Neurologic symptoms: no headache Psychiatric symptoms: Anxiety. Health Status Allergies: . No active allergies recorded. Medications: . Medication Orders lorazepam (Ativan), 0.5 mg, 0.25 mL, IV, Once Sodium Chloride 0.9% (Saline flush), 10 mL, IV, PRN, PRN aspirin, 324 mg, 4 tab(s), PO, Once Past Medical/ Family/ Social History Medical history: Medical history. No active or resolved past medical history items have been selected or recorded. Family history: Not significant. Social history: Alcohol use: Denies, Tobacco use: Denies, Drug use: Denies. Physical Examination General: Alert. mild distress. Skin: Warm. dry. Head: Normocephalic Neck: Trachea midline Eye: Pupils are equal, round and reactive to light Ears, nose, mouth and throat: Tympanic membranes clear. Oral mucosa moist. Cardiovascular: Regular rate and rhythm. No murmur. Normal peripheral perfusion. Respiratory: Lungs are clear to auscultation. respirations are non-labored. Chest wall: No tenderness Back: Nontender Musculoskeletal: Normal ROM Gastrointestinal: Soft. Nontender. Genitourinary: No tenderness Neurological: Alert and oriented to person, place, time, and situation. No focal neurological deficit observed. Lymphatics: No lymphadenopathy Psychiatric: Cooperative. appropriate mood & affect. Medical Decision Making Differential Diagnosis:Atypical chest pain. Electrocardiogram:Rate 85, normal sinus rhythm, No ST-T changes, no ectopy. Results review:Lab results : Lab View. 01/31/2009 14:00 CDT Hgb 11.3 gm/dL LOW Hct 32.7 % LOW WBC 5.3 K/mm3 RBC 3.81 M/mm3 LOW MCV 85.8 fL MCH 29.7 pg MCHC 34.6 gm/dL HI MPV 7.7 fL RDW 13.3 % Platelet 214 K/mm3 Neutro % 84.3 % HI Lymph % 10.6 % LOW [place] % 4.4 % Eos % 0.3 % Baso % 0.4 % Neutro Absolute 4.5 K/mm3 Lymph Absolute 0.6 K/mm3 LOW Monocyte Absol 0.20 K/mm3 LOW Eosino Absolute 00.0 K/mm3 LOW Basophil Absol 00.0 K/mm3 Differential? Auto Sodium Lvl 135 mmol/L Potassium Lvl 4.2 mmol/L Chloride 101 mmol/L CO2 23 mmol/L AGAP 15 mmol/L Glucose Fasting 195 mg/dL HI Creatinine 0.7 mg/dL EGFR 85.1 EGFR AA 102.9 BUN 19 mg/dL Calcium Lvl 9.2 mg/dL Troponin-T <0.010 ng/mL Reexamination/ Reevaluation Re-examination/Re-evaluation:Pain status Resolved, Notes t asleep resting comfortable. HR 98. Slightly tachy but she feels better, calmer, pain free and wishes to go. Will start her on ASA and refer toa pastry cook apprentice for outpt eval. Pt happy with this plan. Impression and Plan Diagnosis Chest pain 786.5 (ICD9 786.50, Discharge, Emergency medicine, Medical) Discharge plan Condition: Improved, Stable. Dispositioned: To home. Patient was given the following educational materials: CHEST PAIN, Uncertain Cause. Limitations: Limited activity. Follow up with: JOSE REN Within As needed. Counseled: Patient, Regarding diagnostic results, Regarding treatment plan, Regarding prescription, Patient indicated understanding of instructions. Source: [facility] [employer] Document Id: {[id number]} documented in this encounter Miscellaneous Notes Miscellaneous - Alma Paula R.N. - 01/31/2009 2:43 PM CDT Valuables/Belongings Valuables/Belongings Entered On: 01/31/2009 14:44 CDT Performed On: 01/31/2009 14:43 CDT by ALMA PAULA RN Valuables/Belongings Belongings Sent Home With: sent with patient ALMA PAULA RN - 01/31/2009 14:43 CDT Source: [employer] Document Id: [id number] CDT!3 Miscellaneous - Alma Paula R.N. - 01/31/2009 1:27 PM CDT Facility Charge Ticket Facility Charge Ticket Entered On: 01/31/2009 14:44 CDT Performed On: 01/31/2009 13:27 CDT by ALMA PAULA RN Facility Charge Mode of Arrival ED: Ambulance [facility] Mode of Arrival Interpreted: BLS/Police [facility] Process Management: None [facility] Order Management: Lab tests 30 Minutes Critical Care: No [facility] Nursing Assessment: Triage and 1-2 nursing assessments ALMA PAULA RN - 01/31/2009 14:44 CDT [facility] Document Id: [id number]!8 documented in this encounter Plan of Treatment Not on filedocumented as of this encounter Visit Diagnoses Not on filedocumented in this encounter
--- OUTSIDE RECORDS SUMMARY | 2022-04-05 15:49 | XMS_ITS | Clinical Summary ---
:1945 Author Organization [employer] [facility] [facility] [place] [address] Care Team Providers Name Role Phone Lina Meléndez MD Primary Care Provider Allergies Active Allergy Reactions Severity Noted Date Comments Adhesive Itching 12/18/2015 Carrot Oil Rash 12/18/2015 And carrot powd er Codeine Nausea And Vomiting 01/17/2007 Gluten GI Upset 05/21/2016 Including wheat Grass Pollen Shortness Of Breath, 12/31/2019 Runny Nose, Headache Tree Nut Hives 12/18/2015 Latex *Unknown 05/22/2016 Per patient she was told to say yes since she has had mul tiple surgeries Maple Flavor Diarrhea 12/28/2017 Melon Flavor Rash 12/18/2015 Unlisted Allergen Rash 05/22/2016 Transderma l clonidine (Include Detail In patch Comments) Sulfa (Sulfonamide Anaphylaxis High 12/18/2015 Antibiotics) Sulfite Rash 12/05/2016 Tree And Shrub *Unknown 12/05/2016 And wood smok e Pollen Medications Medication Sig Dispensed Refills Start End Status Date Date fluticasone (50 mcg Inhale 2 Sprays 0 Active per actuation) nasal into both solution (FLONASE) nostrils once daily. magnesium oxide Take 800 mg by 2 03/05/20 Active (MAG-OX 400) 400 mg mouth 2 times 16 tablet daily. atorvastatin Take 1 tablet 30 tablet 0 05/23/20 Act verena (LIPITOR) 10 mg by mouth at 16 tabletIndications: bedtime. Hyperlipidemia LDL goal <70 clopidogrel (PLAVIX) Take 1 tablet 30 tablet 0 05/23/20 Active 75 mg by mouth every 16 tabletIndications: morning. Cerebrovascular accident (CVA), unspecified mechanism (HC) insulin glargine Inject 16 Units 10 mL 0 11/06/19 Active (LANTUS U-100 subcutaneous 19 INSULIN) 100 unit/mL before injection breakfast. vit Take 1 Cap by 0 02/01/20 Active C/E/Zn/coppr/lutein/z mouth. 09 eaxan (PRESERVISION AREDS-2 ORAL) albuterol HFA 90 INHALE TWO-FOUR 0 12/04/19 Active mcg/actuation inhaler PUFFS BY MOUTH 20 EVERY FOUR-SIX HOURS NEEDED cholecalciferol Take 3,000 0 Act verena (VITAMIN D3) 1,000 Units by mouth. unit tablet betamethasone apply topically 0 12/04/19 Active dipropionate 0.05% to affected 20 (DIPROSONE 0.05% area(s) 2 times CREAM) 0.05 % cream daily. clindamycin phosphate apply to 0 09/14/19 Active 1% topical 1 % affected 20 external solution area(s) of scalp twice daily as needed. valACYclovir Take 2 tablets 0 12/04/19 Ac tive (VALTREX) 500 mg by mouth at 20 tablet onset of symptoms and take 2 tablets 12 hours later. zolpidem (AMBIEN) 5 Take 5 mg by 0 12/28/19 Active mg tablet mouth at 20 bedtime if needed. miscellaneous medical As directed. 1 Each 0 09/12/19 Active supply (Blood Home blood 21 Pressure Cuff) pressure miscIndications: monitoring for Essential Essential hypertension hypertension Diagnosis. Upper arm automatic Cuff. gabapentin TAKE ONE 90 Capsule 1 06/02/20 Active (NEURONTIN) 300 mg CAPSULE BY 21 capsuleIndications: MOUTH ONE TIME Bilateral leg DAILY AT numbness BEDTIME carvediloL (COREG) Take 6.25 mg by 0 08/13/19 Active 6.25 mg tablet mouth 2 times 22 daily with meals. methylPREDNISolone Take by mouth 21 Tablet 0 11/26/19 Active (Medrol, Frandy,) 4 mg as instructed 22 tabletIndications: per packaging. Lumbar radiculopathy alendronate (FOSAMAX) TAKE 1 TABLET 0 12/23/19 Active 70 mg tablet BY MOUTH ONCE 22 WEEKLY ON AN EMPTY STOMACH WITH A BIG GLASS OF WATER. DO NOT LIE DOWN FOR 60 MINUTES AFTERWARDS. finasteride (PROSCAR) TAKE 0.5 TABLET 0 12/17/19 Active 5 mg tablet BY MOUTH ONE 22 TIME DAILY NovoLOG Flexpen U-100 INJECT 4-6 0 12/29/19 Active Insulin 100 unit/mL UNITS BY 22 (3 mL) pen SUBCUTANEOUS ROUTE THREE TIMES DAILY BEFORE MEALS. Biotin 1 mg tablet Take 5,000 mg 0 Active by mouth. omeprazole (PRILOSEC) Take 20 mg by 0 12/21/19 Active 20 mg Delayed-Release mouth. 22 capsule anastrozole Take 1 mg by 0 02/13/20 Activ e (ARIMIDEX) 1 mg mouth once 22 tablet daily. CPAPIndications: TC CPAP machine 1 Each 03/07/20 Active (obstructive sleep for home use at 22 apnea) pressure: 5-16 cmw , Heated humidifier x 1 q 5 yr, Humidifier chamber x 1 q 6 mo, nasal mask x1 q 3mos, with pillows x 2 q mo, Heated tubing x 1 q 3 mo, Headgear x 1 q 6 mo, Filters: Disposable x 2 q mo non-disposable filters x1 q 6mo, Length of Need: 99 months, Frequency of use: Daily insulin lispro Inject 3-5 3 mL 0 12/27/19 Disc ontinued (HUMALOG) 100 unit/mL Units 15 022 (*Patient cartridge subcutaneous 3 state s no times daily longer before meals. taking /Not on sending facility l ist) CPAPIndications: TC CPAP machine 1 Each 07/22/19 Discontinued (obstructive sleep for home use at 22 022 (Reorder apnea) pressure: 5-16 (E-ca ncel not cmw , Heated sent)) humidifier x 1 q 5 yr, Humidifier chamber x 1 q 6 mo, nasal mask x1 q 3mos, with pillows x 2 q mo, Heated tubing x 1 q 3 mo, Headgear x 1 q 6 mo, Filters: Disposable x 2 q mo non-disposable filters x1 q 6mo, Length of Need: 99 months, Frequency of use: Daily Active Problems Problem Noted Date Trigger finger, right ring finger 09/24/2020 Overview: August 2020: Dr. Nixon injected and 2 w eeks out 100% relief. TC 11/29/2017 AHI-14 11/05/2018 Arthritis of carpometacarpal (CMC) joint of right thum b 10/16/2017 Overview: September 2017: cortisone injection right CM C joint, 75 % improvement at 2 weeks. Jul 2018: Bilateral CMC Joint thumb inje ctions by Dr. Nixon, 50% improvement to left and 80% improvement to right at 2 weeks Hyponatremia 12/07/2016 Hypomagnesemia 12/07/2016 Stroke 05/20/2016 Hypertensive urgency 05/20/2016 Psoriasis 05/20/2016 Spinal stenosis of lumbar region without neurogenic cl audication 12/18/2015 HTN (hypertension) 12/18/2015 GERD (gastroesophageal reflux disease) 12/18/2015 Type 2 diabetes mellitus without complication, with lo ng-term current use 03/23/2007 of insulin Backache, unspecified 03/23/2007 Osteoarthrosis, unspecified whether generalized or loc alized, unspecified 03/23/2007 site Major depressive disorder, recurrent episode, unspecif ied 01/17/2007 Hyperlipidemia LDL goal <70 Encounters Date Type Specialty Care Team Description 03/07/2022 Office Visit Francesco Huffman MD Sleep Follow -up (CPAP) 03/07/2022 Travel 01/25/2022 Office Visit Corona Dixon Procedu re (Left L2-3 MD DOWNEY) 01/24/2022 Travel 01/06/2022 Telephone Corona Dixon Questio ns MD 01/06/2022 Transcribe Orders Corona Dixon MD from Last 3 Months Immunizations Name Administration Dates Next Due Influenza, IIV4 04/20/2016 Social History Tobacco Use Types Packs/Day Years Used Date Never Smoker Smokeless Tobacco: Never Used Tobacco Cessation: Counseling Given: Yes Alcohol Use Standard Drinks/Week Comments No 0 (1 standard drink = 0.6 oz pure alcoho l) Sex Assigned at Date Recorded Female 08/31/2020 9:[address] COVID-19 Exposure Response Date Recorded In the last 10 days, have you been in contact with No / Unsu re 03/07/2022 2:26 PM CDT someone who was confirmed or suspected to have Coronavirus/COVID-19? Obstetrics History Para Term AB IAB SAB Ectopic Multiple Living Live Births 6 6 5 1 0 0 0 0 0 5 Date Outcome GA Total Labor/2nd/3rd Weight Sex Delivery Anes PTL Siri A 1 A5 Name Clin Labor Term Term Term Term Term Comments 1 , 1 Last Filed Vital Signs Vital Sign Reading Time Taken Comments Blood Pressure 185/85 03/07/2022 2:43 PM CDT Pulse 72 03/07/2022 2:43 PM CDT Temperature 36.8 ??C (98.3 ??F) 11/01/2021 1:27 PM CDT Respiratory Rate 16 12/03/2018 9:53 AM CDT Oxygen Saturation 100% 11/01/2021 1:27 PM CDT Inhaled Oxygen Concentration - - Weight 72.3 kg (159 lb 8 oz) 03/07/2022 2:43 PM CDT Height 165.1 cm (5' 5) 12/03/2018 9:53 AM CDT Body Mass Index 26.54 12/03/2018 9:53 AM CDT Plan of Treatment Health Maintenance Due Date Last Done Comments Pneumococcal series for age 65+ (1 1953 - PCV) Tdap 1958 Depression screening for age 12+ 1959 Zoster (shingles) series for age 0208/19/1966 50+ (1 of 2) Tetanus booster 1967 Colonoscopy through age 75 1992 Mammogram for age 45-75 1992 DEXA/DXA scan for age 65+ 2012 Medicare Wellness for age 65+ 2012 BMI (ht and wt on same day) for 11/27/2019 11/26/2018, 01/08/2017, age 18+ 11/09/2016, Additional history exists Lipids for age 45-75 05/21/2021 05/21/2016 COVID-19 vaccine series (3 - Mixed 10/20/2021 09/22/2021, 0 03/16/2021 Product risk series) Influenza for age 65+ 02/24/2022 04/20/2016 Hepatitis C screening for age Completed 12/08/2016 18-79 Medical Devices Implanted Type Area Bottom Polisher Device Shelf Model / Identifier Expiration Serial / Date Lot Screw Lmbr Post 6.5x40mm Vitality Va - [id number] Spine [employer] [id number] / Implanted: Qty: 1 on 12/06/2016 by Gurinder Jones MD at [facility] Spine / .045 Double Ended K-Wire Right: N/A / Implanted: Qty: 2 on 12/03/2018 by Rex Harmno DPM at [facility] Foot / Procedures Procedure Name Priority Date/Time Associated Diagnosis Comme nts SCAN-DIAGNOSTIC 03/05/2022 12:00 Results for this REPORT AM CDT procedure are i n the results section. AMB EPIDURAL Routine 01/25/2022 12:00 Lumbar stenosis with Res ults for this STEROID INJECTION AM CDT neurogenic procedure are in claudication the results section. from Last 3 Months Results SCAN-DIAGNOSTIC REPORT (03/05/2022 12:00 AM CDT) Narrative This result has an attachment that is no t available. Scanner OTHER AMB EPIDURAL STEROID INJECTION (01/25/2022 12:00 AM CDT) Narrative This result has an attachment that is no t available. Corona Dixon MD NEUROLOGY ORD from Last 3 Months Insurance Payer Benefit Plan / Subscriber ID Effective Dates Phone Addre ss Type Group MEDICARE PART A MEDICARE PART A [id number] 2012-Present ATTN: CLAIMS - HB USE ONLY HB ONLY [address] [place] [address] MEDICARE PART B MEDICARE PART B [id number] 2012-Present ATTN: CLAIMS - HB USE ONLY HB ONLY [address] [place] [address] UCARE MR ARE MEDICARE [id number] 2019-Present [address] [place] [address] Advance Directives Documents on File Type Date Recorded Patient Engine Lathe Operator Explanati on Healthcare Directive 12/31/2015 7:52 AM 10/23/2013 Latest Code Status on File Code Status Date Activated Date Inactivated Comments Full Code 12/03/2018 9:45 AM 12/03/2018 4:22 PM Code Status Discussion: Discussed Full Code 12/06/2016 8:06 PM 12/08/2016 6:24 PM Full Code 12/06/2016 9:42 AM 12/06/2016 7:56 PM Full Code 05/21/2016 12:05 AM 05/23/2016 2:52 PM Code Status Discussion: Discussed Full Code 12/18/2015 2:26 PM 12/20/2015 1:09 PM Care Teams Sample Clerk Relationship Specialty Start Date End Date Lina Meléndez MD PCP - General Internal Medicine 11/01/[address] [place] [id number]
[2022-04-05 18:03] LABS: Creatinine Urine 25.4 mg/dL
[2022-04-05 18:08] LABS: Microalbumin Creatinine Ratio 30 mg/g (0-30); Microalbumin Urine 1 mg/dL
== END 2022-04-05 15:38 | disposition home or self-care (01) ==
LOC: NFLDREF 15:42
PROVIDERS: PCP Internal Medicine; Visit Provider Internal Medicine
DX: E11.9 Type 2 diabetes mellitus without complications (principal)
CPT/HCPCS: 82043; 82570

== ENCOUNTER 2022-05-27 15:48 | Emergency (ER) | payer MEDICARE, SELFPAY ==
[2022-05-27 16:00] VITALS: BP 209/99; PULSE 70; RESP 32; TEMP 36.3; O2SAT 100; BMI 26.6
--- NOTE | 2022-05-27 16:21 | CRLHL7_ITS ---
For Patients: As a result of the Cures Act, medical imaging exams and procedure reports are released immediately into your electronic medical record. You may view this report before your referring provider. If you have questions, please contact your health care provider. INDICATION: Cough, recent influenza.. TECHNIQUE: Chest 1 view. COMPARISON: Compare 10/13/2020. FINDINGS: Cardiovascular and mediastinum: Cardiomediastinal silhouette is within normal limits. Lungs and pleural spaces: Mild bilateral interstitial opacities. No evidence of pleural effusion. No pneumothorax identified. Bones and soft tissues: Unremarkable. IMPRESSION: Mild bilateral interstitial opacities may reflect pulmonary edema, viral infection. Otherwise no acute cardiopulmonary process identified. Dictated by Vinnie Rod MD @ 05/27/2022 5:17:26 PM (Electronically Signed)
--- NOTE | 2022-05-27 16:50 | ED.NURSE ---
did vomit large amt of undigested food. _350 ml. was coughing and gagging.
[2022-05-27] MEDS: ONDANSETRON 2 MG/ML inj 4 MG IVP (16:57)
[2022-05-27] MEDS: 0.9 % SODIUM CHLORIDE 1000 ml 1,000 ML IV (16:57)
[2022-05-27 17:06] VITALS: BP 195/86; PULSE 66; RESP 20; O2SAT 94
[2022-05-27 17:12] LABS: Basophils Percent Auto 0.3 % (0.0-3.0); Eosinophils Percent Auto 1.3 % (0.0-7.0); Hematocrit 34.2 % (33.0-51.0); Hemoglobin* 11.7 gm/dL (12.0-16.0); Immature Granulocytes Pct Auto 0.3 %; Lymphocytes Percent Auto 15.4 % (20-44); Mean Corpuscular HGB Conc 34 gm/dL (32-36); Mean Corpuscular Hemoglobin 31 pg (26-34); Mean Corpuscular Volume 91 fL (80-100); Monocytes Percent Auto 7.5 % (0.0-11.0); Neutrophils Percent Auto 75.2 % (42.0-72.0); Platelet Count* 176 K/uL (140-440); RDW Coefficient of Variation % 12.3 % (11.5-15.5); Red Blood Count 3.74 m/uL (4.00-5.20); White Blood Count* 3.05 K/uL (4.50-11.00)
[2022-05-27 17:15] LABS: Slide Review Reflex No
[2022-05-27 17:25] LABS: Albumin* 4.1 g/dL (3.3-5.0); Chloride* 95 mmol/L (96-114); Sodium* 128 mmol/L (135-149)
[2022-05-27 17:27] LABS: Creatinine* 0.5 mg/dL (0.5-1.5); Est. Creatinine Clearance* 44.41; Estimated Glomerular Filt Rate 98 ml/min
[2022-05-27 17:28] LABS: Alanine Aminotransferase* 25 U/L (4-35); Alkaline Phosphatase* 57 U/L (40-150); Aspartate Amino Transferase* 34 U/L (12-35); Blood Urea Nitrogen* 16 mg/dL (7-30); Calcium* 8.3 mg/dL (8.4-10.6); Carbon Dioxide* 28 mmol/L (20-32); Glucose* 198 mg/dL (60-115); Total Protein* 7.1 g/dL (6.0-8.3)
[2022-05-27 17:30] VITALS: BP 182/96; PULSE 66; RESP 18; O2SAT 94
--- OUTSIDE RECORDS SUMMARY | 2022-05-27 17:46 | XMS_ITS | Encounter Summary ---
:1945 Author Organization [employer] [facility] Address [address] [place] [address] Care Team Providers Name Role Phone Lina Meléndez MD Primary Care Provider Reason for Referral Therapies (Routine) - Closed Specialty Diagnoses / Procedures Referred By Contact Refer red To Contact Diagnoses Closed fracture of proximal end of left humerus with routine healing, unspecified fracture morphology, subsequent encounter Edelmira Rodriguez MD [address] [place] [address] 49 241 Referral ID Status Reason Start Date Expiration Date Visits Requ ested Visits Authorized [id number] Closed 09/20/2019 11/19/2019 1 1 Scheduling Instructions [...] Care Team Description 08/28/2019 Telephone Specialty Center [facility] Leeann Rodriguez MD APPOINTMENT REQUEST [facility] [address] [id number] [phone] Social History Tobacco Use Types Packs/Day Years Used Date Smoking Tobacco: Never Smokeless Tobacco: Never Alcohol Use Standard Drinks/Week Comments Yes 0 (1 standard drink = 0.6 oz pure alcoho l) Sex Assigned at Date Recorded Not on file documented as of this encounter Nursing Notes Holly Cartwright RN - 09/20/2019 2:46 PM CDT Orders faxed to [place] [facility] as requested. Edelmira Rodriguez MD - [...] castellanos virus and because she lives in [place]. Rather, she will make an appointment sometime in the future if she has questions or concerns. In the meantime, I will fax recommendations to her physical therapist in [place] for advancingher physical therapy. Edelmira Rodriguez MD Michell West [...] 4 week follow-up from her 08/25 appointment. LIGHTER Callie Das - 08/28/2019 2:30 PM CST [...] leave detailed message on your voicemail? Yes [Peer Counselor/Appt Center: If this call is after 3 p.m., communicate to patient: If we are not able to get back to you by the end of the day and your symptoms worsen please contact the Careline] LIGHTER documented in this encounter Plan of Treatment Scheduled Referrals Name Type Priority Associated Diagnoses Order S chedule Physical Therapy Referral Routine Closed fracture of proxi mal Ordered: 09/20/2019 end of left humerus with routine healing, unspecified fracture morphology, subsequent encounter documented as of this encounter Visit Diagnoses Diagnosis Closed fracture of proximal end of left humerus with routine healing, unspecified fracture morphology, subsequent encounte r - Primary documented in this encounter Care Teams President & Ceo [employer] Relationship Specialty Start Date End Date Lina Meléndez MD PCP - General Internal Medicine 12/20/[address] [place] [address] documented as of this encounter
--- OUTSIDE RECORDS SUMMARY | 2022-05-27 17:46 | XMS_ITS | Encounter Summary ---
:1945 Author Organization [facility] Address [address] [place] [address] Care Team Providers Name Role Phone Lina Meléndez MD Primary Care Provider Encounter Details Date Type Department Care Team Description 09/10/2021 Notes/Orders Specialty Center 3931 Leeann Rodriguez MD [facility] 3931 [facility] 3931 [place] [address] [place] [address] [phone] Social History Tobacco Use Types Packs/Day Years [...] on filedocumented in this encounter Care Teams Building Carpenter Helper Relationship Specialty Start Date End Date Lina Meléndez MD PCP - General Internal Medicine 12/20/[address] [place] [address] documented as of this encounter
--- OUTSIDE RECORDS SUMMARY | 2022-05-27 17:46 | XMS_ITS | Encounter Summary ---
:1945 Author Organization [facility] Address [address] [place] [address] Care Team Providers Name Role Phone Lina Meléndez MD Primary Care Provider Reason for Visit Reason Comments Phone Visit Encounter Details Date Type Department Care Team Description 09/19/2019 Telephone Specialty Center 3931 KAMLESH linda, Edelmira Dowling MD Phone Visit Orthopedics 3931 [facility] 3931 [place] [address] [place], [place] [id number] [phone] Social History Tobacco Use Types Packs/Day Years Used Date Smoking Tobacco: Never Smokeless Tobacco: Never Alcohol Use Standard Drinks/Week Comments Yes 0 (1 standard drink = 0.6 oz pure alcoho l) Sex Assigned at Date Recorded Not on file documented as of this encounter Nursing Notes Daniella Osuna RN - 09/19/2019 2:07 PM CDT Called patient and left l to call Triage at [phone] to provide possible time frames she is [...] clinic visit, patient plan to F/U in [place] in 6 weeks for repeat shoulder xrays, [...] you been seen for this recently?: yes [Cherry Pitter/Appt Center: If yes, please include date and provider.] Is it okay to leave detailed message on your voicemail? yes [Cherry Pitter/Appt Center: If this call is after 3 p.m., communicate to patient: If we are not able to get back to you by the end of the day and your symptoms worsen please contact the Careline] documented in this encounter Plan of Treatment Not on filedocumented as of this encounter Visit Diagnoses Not on filedocumented in this encounter Care Teams Picture Engraver Relationship Specialty Start Date End Date Lina Meléndez MD PCP - General Internal Medicine 12/20/[address] [place] [address] documented as of this encounter
--- OUTSIDE RECORDS SUMMARY | 2022-05-27 17:46 | XMS_ITS | Clinical Summary ---
:1945 Author Organization [facility] Address [address], [place] [address] Care Team Providers Name Role Phone Lina [...] for each transition of care or referral. [employer]Show Allergies Active Allergy Reactions Severity Noted Date [...] Overview: Added automatically from request for kirstie yousify [id number] TC (obstructive sleep apnea) 11/05/2018 Arthritis of [...] Comments Blood Pressure 147/63 07/17/2019 2:34 PM FEATHER MAKER Pulse 75 07/17/2019 2:34 PM FEATHER MAKER Temperature 36.7 ??C (98.1 ??F) 07/17/2019 2:34 PM FEATHER MAKER Respiratory Rate 18 07/17/2019 2:34 PM FEATHER MAKER Oxygen Saturation 99% 07/17/2019 2:34 PM FEATHER MAKER Inhaled Oxygen Concentration - - Weight 75 kg (165 lb 6.4 oz) 07/16/2019 10:19 AM FEATHER MAKER Height 165.1 cm (5' 5) 07/16/2019 10:19 AM FEATHER MAKER Body Mass Index 27.52 07/16/2019 10:19 AM FEATHER MAKER Plan of Treatment Health Maintenance Due Date [...] this topic Medical Devices Implanted Type Area Automotive Technician Instructor Device Shelf Model / Identifier Expiration Serial / Date Lot Scr Cj Sftp 3.5x32 F-Thrd - [id number] DEVICE Left: DeP[employer] S ynthes - [id number] / Implanted: Qty: 1 on 07/16/2019 by Edelmira Rodriguez MD at [facility] Trauma / [place] [id number] Insurance Payer Benefit Plan / Subscriber ID Effective Dates Phone Addre ss Type Group [facility] MEDICARE [id number] 2019-Present [phone] CL AIMS Medicare [address] [place] [address] Maryam Cortez Personal/Family Self 1945 [phone] [address] (Home) [facility] [phone] [place], [place] (Work) [address] Maryam Cortez Personal/Family Self 1945 [phone] (Home) [facility] [phone] [place] ([place]) [address] Advance Directives Latest Code Status on File Code Status Date Activated Date Inactivated Comments Full Code 07/16/2019 4:18 PM 07/17/2019 5:47 PM Care Teams Tool Marker Relationship Specialty Start Date End Date Lina Meléndez MD PCP - General Internal Medicine 12/20/[address] [place] [address]
--- OUTSIDE RECORDS SUMMARY | 2022-05-27 17:46 | XMS_ITS | Encounter Summary ---
:1945 Author Organization [facility] Address [address] [place] [address] Care Team Providers Name Role Phone Lina Meléndez MD Primary Care Provider Encounter Details Date Type Department Care Team Description 09/10/2020 Notes/Orders Specialty Center 3931 Leeann Rodriguez MD [facility] 3931 [facility] 3931 [place] [address] [place] [address] [phone] Social History Tobacco Use Types Packs/Day Years [...] on filedocumented in this encounter Care Teams Barn Manager Relationship Specialty Start Date End Date Lina Meléndez MD PCP - General Internal Medicine 12/20/[address] [place] [address] documented as of this encounter
--- OUTSIDE RECORDS SUMMARY | 2022-05-27 17:47 | XMS_ITS | Encounter Summary ---
:1945 Author Organization [facility] Address [address] [place] [address] Care Team Providers Name Role Phone Lina Meléndez MD Primary Care Provider Reason for Visit Reason Comments APPOINTMENT REQUEST Encounter Details Date Type Department Care Team Description 08/12/2019 Telephone Specialty Center 3931 Leeann Rodriguez MD APPOINTMENT REQUEST [facility] 3931 [facility] 3931 [place] [address] [phone] Social History Tobacco Use Types Packs/Day Years [...] She was in agreement with this plan. PER CASHIER Joan Quintana - 08/12/2019 9:23 AM CST Has the [...] leave detailed message on your voicemail? Yes [Engine Wiper/Appt Center: If this call is after 3 p.m., communicate to patient: If we are not able to get back to you by the end of the day and your symptoms worsen please contact the Careline] PER CASHIER documented in this encounter Plan of Treatment Not on filedocumented as of this encounter Visit Diagnoses Not on filedocumented in this encounter Care Teams Copy Director Relationship Specialty Start Date End Date Lina Meléndez MD PCP - General Internal Medicine 12/20/[address] [place] [address] documented as of this encounter
--- OUTSIDE RECORDS SUMMARY | 2022-05-27 17:47 | XMS_ITS | Encounter Summary ---
:1945 Author Organization [facility] Address [address] [address] Care Team Providers Name Role Phone Lina Meléndez MD Primary Care Provider Encounter Details Date Type Department Care Team Description 07/16/2019 Orders Only Initial [facility] RON GALICIA MD [place], [place] [address] Interface provider [phone] [place] [address] Social History Tobacco Use Types Packs/Day Years [...] on filedocumented in this encounter Care Teams Perinatal Breastfeeding Assistant Relationship Specialty Start Date End Date Lina Meléndez MD PCP - General Internal Medicine 12/[address] [place] [address] documented as of this encounter
--- OUTSIDE RECORDS SUMMARY | 2022-05-27 17:47 | XMS_ITS | Encounter Summary ---
:1945 Author Organization [facility] Address [address] [place] [address] Care Team Providers Name Role Phone Lina Meléndez MD Primary Care Provider Reason for Visit Reason Comments Post-Op Follow Up Call Encounter Details Date Type Department Care Team Description 07/18/2019 Telephone Specialty Center 3931 Leeann oRdriguez MD Post-Op Follow Up Call [facility] [id number] [place] [address] [phone] Social History Tobacco Use Types Packs/Day Years [...] Left voicemail for patient to call to [facility] with any post-op questions or concerns. NSED MORTICIAN documented in this encounter Plan of Treatment Not on filedocumented as of this encounter Visit Diagnoses Not on filedocumented in this encounter Care Teams Bush And Vine Farmer Fruit Crops Relationship Specialty Start Date End Date Lina Meléndez MD PCP - General Internal Medicine 12/20/[address] [place] [address] documented as of this encounter
--- OUTSIDE RECORDS SUMMARY | 2022-05-27 17:47 | XMS_ITS | Encounter Summary ---
:1945 Author Organization [facility] Address [address] [place] [address] Care Team Providers Name Role Phone Lina Meléndez MD Primary Care Provider Reason for Visit Reason Comments Post-Op Problem Encounter Details Date Type Department Care Team Description 07/21/2019 Nurse Triage Careline Unassigned, Provider Post-Op Problem [address] [place], [place] [address] 5 [place] [address] Social History Tobacco Use Types Packs/Day Years [...] agrees with this plan. Michelle Houser RN ECTION MANAGER Michelle Houser RN - 07/21/2019 1:06 PM [...] entire arm. Protocols used: POST-OP SYMPTOMS AND [id number] ECTION MANAGER Michelle Houser RN - 07/21/2019 1:01 PM [...] PM Paged Dr. Michelle Morales who is car conditioner for [facility]. 1:[address] Morales again. 1:41 PM I left a voicemail on Dr. Morales's cell phone. 1:45 PM I phoned the [facility] to verify that this physician is car conditioner and to have them try to reach her. ECTION MANAGER Nikki Chong - 07/21/2019 1:00 PM CST Verified patient identity using three identifiers: Yes Caller's relationship to patient: Self At which care system or clinic is the patient normally seen? Other (Clinic Name) [place] Symptoms Describe the reason for call/symptoms (include location and duration if applicable): Left arm surgery on Monday - has numbness in fingers Plan:Caller transferred directly to CareLine nurse. ECTION MANAGER documented in this encounter Plan of Treatment Not on filedocumented as of this encounter Visit Diagnoses Not on filedocumented in this encounter Care Teams Syrup Blender Relationship Specialty Start Date End Date Lina Meléndez MD PCP - General Internal Medicine 12/20/[address] [place] [address] documented as of this encounter
--- OUTSIDE RECORDS SUMMARY | 2022-05-27 17:47 | XMS_ITS | Encounter Summary ---
:1945 Author Organization [facility] Address [address] [place] [address] Care Team Providers Name Role Phone Lina Meléndez MD Primary Care Provider Encounter Details Date Type Department Care Team Description 07/31/2019 Lab Visit Specialty Center 3931 Closed fracture of proximal Outpatient Laborator y end of left humerus, [facility]31 [facility] [place] [address] morphology, initial [phone] encounter Social History Tobacco Use Types Packs/Day [...] of Res ults for this 25-HYDROXY, TOTAL MEDICAL CHARGE ENTRY SPECIALIST proximal end of left pr ocedure are in humerus, unspecified the res ults fracture morphology, section . initial encounter INTACT PTH Routine 07/31/2019 1:37 PM Closed fracture of Res ults for this MEDICAL CHARGE ENTRY SPECIALIST proximal end of left procedu re are in humerus, unspecified the res ults fracture morphology, section . initial encounter documented in this encounter Results Vitamin D 25-Hydroxy, Total (07/31/2019 1:37 PM MEDICAL CHARGE ENTRY SPECIALIST) athologist Signature Vitamin D, 52 30 - 80 07/31/2019 [facility] 25-OH, Total ng/mL 2:34 PM MEDICAL CHARGE ENTRY SPECIALIST LABORATORY Specimen Anatomical Collection Method / Collection Time Recei kaylene Time (Source) Location / Volume Laterality Blood Venipuncture / 07/31/2019 1:37 07/31/2019 1:49 Unknown PM MEDICAL CHARGE ENTRY SPECIALIST PM MEDICAL CHARGE ENTRY SPECIALIST Gabriela Lopez RN, HELMET BINDER SHADOW GRAPH WEIGHT OPERATOR LAB_1 Performing Organization Address City/[facility] Code Phon e Number [facility] [address] [place] [address] Intact PTH (07/31/2019 1:37 PM MEDICAL CHARGE ENTRY SPECIALIST) athologist Signature Intact PTH 28 10 - 100 07/31/2019 [facility] pg/mL 2:20 PM MEDICAL CHARGE ENTRY SPECIALIST LABORATORY Specimen Anatomical Collection Method / Collection Time Recei kaylene Time (Source) Location / Volume Laterality Blood Venipuncture / 07/31/2019 1:37 07/31/2019 1:49 Unknown PM MEDICAL CHARGE ENTRY SPECIALIST PM MEDICAL CHARGE ENTRY SPECIALIST Gabriela Lopez RN, HELMET BINDER SHADOW GRAPH WEIGHT OPERATOR LAB_1 Performing Organization Address [facility] Phon e Number [facility] [address] [place] [address] documented in this encounter Visit Diagnoses Diagnosis Closed fracture of proximal end of left humerus, unspecified fracture morphology, initial encounter documented in this encounter Care Teams Battery Service Technician Relationship Specialty Start Date End Date Lina Meléndez MD PCP - General Internal Medicine 12/20/18[address] [place] [address] documented as of this encounter
--- OUTSIDE RECORDS SUMMARY | 2022-05-27 17:47 | XMS_ITS | Encounter Summary ---
:1945 Author Organization [facility] Address [address] [place] [address] Care Team Providers Name Role Phone Lina Meléndez MD Primary Care Provider Reason for Visit Procedure/Equipment (Routine) - Incomplete Specialty Diagnoses / Procedures Referred By Contact Refer red To Contact Diagnoses Closed fracture of proximal end of left humerus, unspecified fracture morphology, initial encounter Gabriela Lopez, Procedures XR Shoulder Lt 2+ Views RN, LION TRAINER WAN SUPPORT SPECIALIST 3931 [place], [place] [address] Referral ID Status Reason Start Date Expiration Date Visits V isits Requested Authorized [id number] Incomplete 07/23/2019 10/21/2020 1 1 Encounter Details Date Type Department Care Team Description 07/31/2019 Ancillary Specialty Center Gabriela Lopez Closed fracture of Procedure 3931 Radiology Ella Crawford, ROCCO, LION TRAINER proximal end of X-ray WAN SUPPORT SPECIALIST left humerus, 3931 [facility]. 3931 [facility] uns pecified S. S fracture [place], [place] morph [place]log[place] [address] encounter Social History Tobacco Use Types Packs/Day [...] Closed fracture of Results for this VIEWS COMPLIANCE INVESTIGATOR proximal end of left procedu re are in humerus, unspecified the res ults fracture morphology, section . initial encounter documented in this encounter Results XR Shoulder Lt 2+ Views (07/31/2019 12:25 PM COMPLIANCE INVESTIGATOR) Anatomical Region Laterality Modality Upper Extremity, Shoulder Computed Radio graphy Specimen (Source) Anatomical Collection Method Collection Time Re ceived Time Location / / Volume Laterality 07/31/2019 12:17 PM COMPLIANCE INVESTIGATOR Impressions 07/31/2019 12:59 PM COMPLIANCE INVESTIGATOR COMPARISON: ??07/16/2019 FINDINGS: ??Plate and screw fixation [...] nahomy remain in place. Gabriela Lopez RN, LION TRAINER WAN SUPPORT SPECIALIST RAD GD documented in this encounter Visit Diagnoses Diagnosis Closed fracture of proximal end of left humerus, unspecified fracture morphology, initial encounter documented in this encounter Care Teams Ladle Repairer Relationship Specialty Start Date End Date Lina Meléndez MD PCP - General Internal Medicine 12/20/[address] [place] [address] documented as of this encounter
--- OUTSIDE RECORDS SUMMARY | 2022-05-27 17:47 | XMS_ITS | Encounter Summary ---
:1945 Author Organization [facility] Address [address] [place] [address] Care Team Providers Name Role Phone Lina Meléndez MD Primary Care Provider Reason for Visit Reason Comments Orders Needed Encounter Details Date Type Department Care Team Description 07/23/2019 Telephone Specialty Center 3931 KAMLESH linda, Edelmira Dowling MD Orders Needed Orthopedics 3931 [facility] 3931 [place] [address] [place] [address] [phone] Social History Tobacco Use Types Packs/Day Years [...] check with her insurance to verify that [facility] is covered. Message left on patient's voicemail to call [facility]. PT orders have been faxed. C Her Maryam Jimenez - 07/23/2019 11:49 AM CST Has the patient recently had surgery or an injury? Yes. Date of Surgery: July 16, 2019 Type of Surgery: L humerus fx What referral/order is being requested: Patient would like her physical therapy referral faxed to [facility] Is it okay to leave detailed message on your voicemail? Yes [Corporate Attorney/Appt Center: If this call is after 3 p.m., communicate to patient: If we are not able to get back to you by the end of the day and your symptoms worsen please contact the Careline] [Corporate Attorney: Please inform patient that a referral does not guarantee insurance coverage. Patients should call the member services number on the back of their insurance ID card to understand whatcoverage for the services they are requesting.] CTOR OF DIGITAL PLATFORMS documented in this encounter Plan of Treatment Not on filedocumented as of this encounter Visit Diagnoses Not on filedocumented in this encounter Care Teams Pediatric Physical Therapy Assistant Relationship Specialty Start Date End Date Lina Meléndez MD PCP - General Internal Medicine 12/20/18[address] [place] [address] documented as of this encounter
--- OUTSIDE RECORDS SUMMARY | 2022-05-27 17:47 | XMS_ITS | Encounter Summary ---
:1945 Author Organization [facility] Address [address], [place] [address] Care Team Providers Name Role Phone Lina Meléndez MD Primary Care Provider Encounter Details Date Type Department Care Team Description 07/16/2019 Notes/Orders Specialty Center 3931 Leeann Rodriguez MD [facility] 3931 [facility] 3931 [place] [address] [place] [address] [phone] Social History Tobacco Use Types Packs/Day Years [...] on filedocumented in this encounter Care Teams Lever Operator Relationship Specialty Start Date End Date Lina Meléndez MD PCP - General Internal Medicine 12/20/[address] [place] [address] documented as of this encounter
--- OUTSIDE RECORDS SUMMARY | 2022-05-27 17:47 | XMS_ITS | Encounter Summary ---
:1945 Author Organization [facility] Address [address], [place] [address] Care Team Providers Name Role Phone Lina Meléndez MD Primary Care Provider Reason for Referral Procedure/Equipment (Routine) - Incomplete Specialty Diagnoses / Procedures Referred By Contact Refer red To Contact Diagnoses No diagnosis or condition on [place] II (C) Edelmira Rodriguez MD Procedures FL C Arm 3932 [place], [place] [address] Referral ID Status Reason Start Date Expiration Date Visits V isits Requested Authorized [id number] Incomplete 07/16/2019 10/14/2020 1 1 ORMANCE ARCHITECT Reason for Visit Auth/Cert Specialty Diagnoses / Procedures Referred By Contact Refer red To Contact Diagnoses Closed fracture of proximal end of left humerus, unspecified fracture morphology, initial encounter Procedures OPEN REDUCTION INTERNAL FIXATION PROXIMAL HUMERUS FRACTURE Referral ID Status Reason Start Date Expiration Date Visits Requ ested Visits Authorized [id number] 1 1 Encounter Details Date Type Department Care Team Description 07/16/2019 Hospital Encounter [facility] Edelmira Rodriguez, No diagnosis or [address] condition on [address] 3931 [facility] [address] [place], [place] [phone] Social History Tobacco Use Types Packs/Day Years [...] No diagnosis or Result s for this PERFORMANCE ARCHITECT condition on [place] II procedu re are in the results section . documented in this encounter Results FL C Arm (07/16/2019 1:29 PM PERFORMANCE ARCHITECT) Anatomical Region Laterality Modality Radiographic Imaging Specimen (Source) Anatomical Location Collection Method / Collectio n Time Received Time / Laterality Volume Narrative 07/16/2019 2:22 PM PERFORMANCE ARCHITECT Images obtained during surgical procedure. Edelmira Rodriguez MD RAD FL documented in this encounter Visit Diagnoses Diagnosis No diagnosis or condition on [place] II (HR C) Observation of other suspected mental co ndition documented in this encounter Care Teams Chief Knowledge Officer Relationship Specialty Start Date End Date Lina Meléndez MD PCP - General Internal Medicine 12/20/[address] [place] [address] documented as of this encounter
--- OUTSIDE RECORDS SUMMARY | 2022-05-27 17:47 | XMS_ITS | Encounter Summary ---
:1945 Author Organization [facility] Address [address] [place] [address] Care Team Providers Name Role Phone Lina Meléndez MD Primary Care Provider Reason for Referral Procedure/Equipment (Routine) - Incomplete Specialty Diagnoses / Procedures Referred By Contact Refer red To Contact Diagnoses Closed fracture of proximal end of left humerus, unspecified fracture morphology, initial encounter Gabriela Lopez, Procedures XR Shoulder Lt 2+ Views RN, DRIVER'S LICENSE EXAMINER BONE CRUSHER [address] [place] [phone] Referral ID Status Reason Start Date Expiration Date Visits V isits Requested Authorized [id number] Incomplete 07/23/2019 10/21/2020 1 1 ORY SCIENTIST Reason for Visit Reason Comments Arm Injury left humerus Encounter Details Date Type Department Care Team Description 07/31/2019 Office Visit Specialty Center Gabriela Lopez Closed fracture of proximal end of left humerus, unspecified fracture morphology, initial encounter (Primary Dx); 3931 KAMLESH Crawford RN, DRIVER'S LICENSE EXAMINER Osteoporos is, unspecified osteoporosis type, unspecified pathological fracture presence Orthopedics BONE CRUSHER [address] [place] [address] [phone] Social History Tobacco Use Types Packs/Day Years Used Date Smoking Tobacco: Never Smokeless Tobacco: Never Alcohol Use Standard Drinks/Week Comments Yes 0 (1 standard drink = 0.6 oz pure alcoho l) Sex Assigned at Date Recorded Not on file documented as of this encounter Patient Instructions Patient InstructionsGabriela Lopez RN, DRIVER'S LICENSE EXAMINER BONE CRUSHER - 07/31/2019 1:00 PM CST Follow these recommendations for the general population: 1. Daily vitamin D 2,000 IU for life. This can be purchased over the counter. 2. Twice daily calcium citrate 600mg for life. OR Combination of supplement and dietary intake equalto 1991-7038 mg calcium daily. 3. Weight bearing exercises [...] do you need? Most people living in [place] need 2,000 IU of vitamin D everyday for life to maintain optimal levels. How can you get more vitamin D? Foods that contain vitamin D include: [place], tuna, and mackerel. These are some of [...] all of the medicines you take, including bvtf-ukq-ojwipxq drugs, herbs, and pills. Tell your doctor [...] and yogurt. Vegetables like broccoli, kale, and Portuguese cabbage also have it. You can get [...] canned with bones 3 oz 325 mg [place], canned with bones 3 oz 180 mg Shrimp, canned 3 oz 125 mg Dairy Serving Size Estimated Calcium* Ricotta, part-skim 4 oz 335 mg Yogurt, plain, low-fat 6 oz 310 mg Milk, skim, low-fat, whole 8 oz 300 mg Yogurt with fruit, low-fat 6 oz 260 mg Mozzarella, part-skim 1 oz 210 mg Cheddar 1 oz 205 mg Yogurt, Namibian 6 oz 200 mg Hungarian Cheese 1 oz 195 mg Feta Cheese 4 oz 140 mg Cottage Cheese, 2% 4 oz 105 mg Frozen yogurt, vanilla 8 oz 105 mg Ice Cream, vanilla 8 oz 85 mg Parmesan 1 tbsp 55 mg Fortified Food Serving Size Estimated Calcium* Mexia milk, rice milk or soy milk, fortified 8 oz 300 mg Vernon juice and other fruit juices, fortified 8 oz 300 mg Tofu, prepared with calcium 4 oz 205 mg Waffle, frozen, fortified 2 pieces 200 mg Oatmeal, fortified 1 packet 140 mg Samoan muffin, fortified 1 muffin 100 mg Cereal, [...] unlocked while you are in the shower. ORY SCIENTIST documented in this encounter Progress Notes Gabriela Lopez RN, RYANN QUINN - 07/31/2019 1:00 PM CST ORTHOPEDIC SURGERY [...] without evidence of lesions, abrasions, or rashes. [place] present. Incision approximated, no drainage Musculoskeletal- Full elbow, wrist, lead manufacturing technician/hand ROM Imaging: the shoulder left xrays dated [...] along and making progress despite this restrictions. [place] removed today and steristrips applied. She may [...] postop. 2. Zero to 6 weeks postop: Brine Well Operator, wrist, elbow range of motion with axillary care and pendulums. Also, passive and active assisted forward elevation and external rotation at the side. 3. Six to 12 weeks postop: Add active range of motion in all directions. 4. Twelve plus weeks postop: Add strengthening. 5. Osteoporosis evaluation and treatment. Questions answered. Pt in agreement w/ tx plan Gabriela Lopez RN, DRIVER'S LICENSE EXAMINER BONE CRUSHER ORY SCIENTIST documented in this encounter Plan of Treatment Not on filedocumented as of this encounter Results Vitamin D 25-Hydroxy, Total (07/31/2019 1:37 PM SENSORY SCIENTIST) athologist Signature Vitamin D, 52 30 - 80 07/31/2019 [facility] 25-OH, Total ng/mL 2:34 PM SENSORY SCIENTIST LABORATORY Specimen Anatomical Collection Method / Collection Time Recei kaylene Time (Source) Location / Volume Laterality Blood Venipuncture / 07/31/2019 1:37 07/31/2019 1:49 Unknown PM SENSORY SCIENTIST PM SENSORY SCIENTIST Gabriela Lopez RN, DRIVER'S LICENSE EXAMINER BONE CRUSHER LAB_1 Performing Organization Address City/[facility]/ZIP [facility] Phon e Number [facility] [address] [place] [address] Intact PTH (07/31/2019 1:37 PM SENSORY SCIENTIST) athologist Signature Intact PTH 28 10 - 100 07/31/2019 [facility] pg/mL 2:20 PM SENSORY SCIENTIST LABORATORY Specimen Anatomical Collection Method / Collection Time Recei kaylene Time (Source) Location / Volume Laterality Blood Venipuncture / 07/31/2019 1:37 07/31/2019 1:49 Unknown PM SENSORY SCIENTIST PM SENSORY SCIENTIST Gabriela Lopez RN, DRIVER'S LICENSE EXAMINER BONE CRUSHER LAB_1 Performing Organization Address City/[facility] Phon e Number [facility] [address] [place] [address] XR Shoulder Lt 2+ Views (07/31/2019 12:25 PM SENSORY SCIENTIST) Anatomical Region Laterality Modality Upper Extremity, Shoulder Computed Radio graphy Specimen (Source) Anatomical Collection Method Collection Time Re ceived Time Location / / Volume Laterality 07/31/2019 12:17 PM SENSORY SCIENTIST Impressions 07/31/2019 12:59 PM SENSORY SCIENTIST COMPARISON: ??07/16/2019 FINDINGS: ??Plate and screw fixation [...] nahomy remain in place. Gabriela Lopez RN, DRIVER'S LICENSE EXAMINER BONE CRUSHER RAD GD documented in this encounter Visit Diagnoses Diagnosis Closed fracture of proximal end of left humerus, unspecified fracture morphology, initial encounter - Primary Osteoporosis, unspecified osteoporosis t ype, unspecified pathological fracture presence ([facility]) Closed fracture of proximal end of left humerus, unspecified fracture morphology, initial encounter documented in this encounter Care Teams Airport Electrician Relationship Specialty Start Date End Date Lina Meléndez MD PCP - General Internal Medicine 12/20/181999 Jackelyn [place] [address] documented as of this encounter
--- OUTSIDE RECORDS SUMMARY | 2022-05-27 17:47 | XMS_ITS | Encounter Summary ---
:1945 Author Organization [facility] Address [address] [place] [address] Care Team Providers Name Role Phone Lina Meléndez MD Primary Care Provider Reason for Referral Therapies (Routine) - Closed Specialty Diagnoses / Procedures Referred By Contact Refer red To Contact Occupational Therapy Diagnoses Other closed displaced fracture of proximal end of left humerus, initial encounter Edelmira Rodriguez MD P3931 Hand Therapy [address] [place] [address] [address]. [address] [place] [address] Phone: Fax: Referral ID Status Reason Start Date Expiration Date Visits Requ ested Visits Authorized [id number] Closed 07/19/2019 09/17/2019 1 1 Scheduling Instructions Your provider has recommended an appoint ment with [facility]. You may call [phone] to schedule your appoi ntment. If you do not schedule an appointment within the next 1 to 3 business days, we will call you to help arrange your appointment. We suggest you call your [facility] insurance company about your coverage and benefits for this appointment. herapies (Routine) - Closed Specialty Diagnoses / Procedures Referred By Contact Refer red To Contact Diagnoses Other closed displaced fracture of proximal end of left humerus, initial encounter Edelmira Rodriguez MD [address] [place], [place] [address] Referral ID Status Reason Start Date Expiration Date Visits Requ ested Visits Authorized [id number] Closed 07/19/2019 09/17/2019 1 1 Scheduling Instructions [...] ask your clinician's staff to assist you. PARTS SALESPERSON Reason for Visit Reason Comments SWELLING Post-Op Problem Encounter Details Date Type Department Care Team Description 07/19/2019 Telephone Specialty Center 3931 Leeann Rodriguez MD SWELLING; Post-Op [facility] 3931 [facility] Problem 3931 [facility] [place] [address] [phone] Social History Tobacco Use Types Packs/Day Years [...] calling back from Occupational Therapy group in [place]. States they are not able to get patient into OT until 07/25/19 and will put her on a waitlist. Orders faxed to: Occupational Therapy group in [place] [phone] Accounting Manager verified atient is able to get in sooner to [facility] OT. I gave her the number to schedule and will call Monday morning early to get scheduled on Monday07/22/19. Patient to call after hours over theweekend if symptoms worsen. PARTS SALESPERSON Lalito Smith - 07/19/2019 11:43 AM CST Maryam calling back with contact info for occupational therapy. Maryam states the contact officer is Renetta Irvin and her number is [phone] PARTS SALESPERSON Edelmira Rodriguez MD - 07/19/2019 11:20 AM CST Spoke w the patient. She will call w the phone number of the Occupational Therapy group in [place] near to where she lives. I will then call to see if she can get in today. Edelmira Rodriguez MD PARTS SALESPERSON Michelle Barraza RN - 07/19/2019 10:20 AM [...] Patient was seen in the ED at [facility] last night and ED provider is [...] Center 07/31/2019 1:00 PM Gabriela Lopez, RN, PLAIN GOODS HEMMER HYDRAULIC BULL RIVETER OPERATOR P3931 ORTHO PN 3931 08/28/2019 2:15 PM Edelmira Rodriguez MD P3931 ORTHO PN 3931 PARTS SALESPERSON documented in this encounter Plan of Treatment [...] Primary documented in this encounter Care Teams Auto Air Conditioning Apprentice Relationship Specialty Start Date End Date Lina Meléndez MD PCP - General Internal Medicine 12/20/181999 [place] [address] documented as of this encounter
--- OUTSIDE RECORDS SUMMARY | 2022-05-27 17:47 | XMS_ITS | Encounter Summary ---
:1945 [facility] Address [address] [place] [address] Care Team Providers Name Role Phone Lina Meléndez MD Primary Care Provider Reason for Referral Procedure/Equipment (Routine) - Incomplete Specialty Diagnoses / Procedures Referred By Contact Refer red To Contact Diagnoses Closed fracture of proximal end of left humerus with routine healing, unspecified fracture morphology, subsequent encounter Edelmira Rodriguez MD Procedures XR Shoulder Lt 2+ Views [address] [place], [place] [address] Referral ID Status Reason Start Date Expiration Date Visits V isits Requested Authorized [id number] Incomplete 08/13/2019 11/11/2020 1 1 L PERFORMER Reason for Visit Reason Comments Post Op Exam DOS: 07-16-19 ORIF Left proxi mal humerus fracture, 6 weeks post-op Encounter Details Date Type Department Care Team Description 08/26/2019 Office Visit Special[facility] [address] Edelmira Rodriguez C losed fracture of [facility] proximal end of left [address] [facility]. [address] [facility] merus with routine S. S healing, unspecified [place], [place] fr acture morphology, [id number] subsequent encounter [phone] (Wo rk) (Primary Dx) Social History Tobacco [...] Garcia RN - 08/26/2019 9:30 AM CST [facility] [address] [place] [address] [place] [address] Reason for today's visit: Post Op Exam (DOS: 07-16-19 ORIF Left proximal humerus fracture, 6 weeks post-op) Treatment plan: ??? Physical therapy: Advance to [facility] Follow up Appointments: You will follow up in [place] in 6 weeks. Call to make your next appointment. If you have any questions about your visit, your symptoms, your medication, your test results or it is not clear what your diagnosis or treatment plan is please contact us at [phone] or send us a secure message via [employer]. Thank you for choosing [facility]. L PERFORMER documented in this encounter Progress Notes Edelmira [...] concerns today regarding therapy and FU in [place] where she lives, as opposed to back here in [facility]. Physical Exam: General- In general the patient [...] Incision looks good Musculoskeletal- Full elbow, wrist, application support consultant/hand ROM FE w assist to 125; abd [...] advance to [facility] in [place]. FU in [place] in 6 weeks w newshoulder xrays. If doing well then, would add strengthening. Questions answered. Pt in agreement w/ tx plan Edelmira Rodriguez MD documented in this encounter Plan of Treatment Not on filedocumented as of this encounter Results XR Shoulder Lt 2+ Views (08/26/2019 9:42 AM VOCAL PERFORMER) Anatomical Region Laterality Modality Upper Extremity, Shoulder Digital Radiog alexandra Specimen (Source) Anatomical Collection Method Collection Time Re ceived Time Location / / Volume Laterality 08/26/2019 9:32 AM VOCAL PERFORMER Impressions 08/26/2019 10:19 AM VOCAL PERFORMER COMPARISON: ??07/31/2019 FINDINGS: ??No change in alignment or po sition of the internally fixed fracture of the neck of the humerus. Interval removal of skin nahomy. 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
--- OUTSIDE RECORDS SUMMARY | 2022-05-27 17:47 | XMS_ITS | Encounter Summary ---
:1945 Author Organization [facility] Address [address] [place] [address] Care Team Providers Name Role Phone Lina Meléndez MD Primary Care Provider Reason for Visit Auth/Cert Specialty Diagnoses / Procedures Referred By Contact Refer red To Contact Diagnoses Closed fracture of proximal end of left humerus, unspecified fracture morphology, initial encounter Procedures OPEN REDUCTION INTERNAL FIXATION PROXIMAL HUMERUS FRACTURE Referral ID Status Reason Start Date Expiration Date Visits Requ ested Visits Authorized [id number] 1 1 Encounter Details Date Type Department Care Team Description 07/16/2019 Surgery [employer] Operating Ger Rodriguez MD OPEN REDUCTION INTERNAL Room [facility] FIXATION PROXIMAL [address] [place], [place] [phone] Social History Tobacco Use Types Packs/Day Years Used Date Smoking Tobacco: Never Smokeless Tobacco: Never Alcohol Use Standard Drinks/Week Comments Yes 0 (1 standard drink = 0.6 oz pure alcoho l) Sex Assigned at Date Recorded Not on file documented as of this encounter Last Filed Vital Signs Vital Sign Reading Time Taken Comments Blood Pressure 211/116 07/16/2019 11:15 AM BLUEPRINT CUTTER Pulse 107 07/16/2019 11:15 AM BLUEPRINT CUTTER Temperature 37.3 ??C (99.1 ??F) 07/16/2019 10:19 AM BLUEPRINT CUTTER Respiratory Rate 16 07/16/2019 11:00 AM BLUEPRINT CUTTER Oxygen Saturation 100% 07/16/2019 11:15 AM BLUEPRINT CUTTER Inhaled Oxygen Concentration - - Weight 75 kg (165 lb 6.4 oz) 07/16/2019 10:19 AM BLUEPRINT CUTTER Height 165.1 cm (5' 5) 07/16/2019 10:19 AM BLUEPRINT CUTTER Body Mass Index 27.52 07/16/2019 10:19 AM BLUEPRINT CUTTER documented in this encounter Discharge Summaries Matt [...] Your Medications These medications were sent to [facility] [address] [place], [place] [id number] ?? acetaminophen 500 MG tablet ?? aspirin [...] continue non-weight bearing to Left upper extremity. Geological Survey Field Assistant, wrist, elbow range of motion with axillary [...] must be accompanied by a responsible adult commercial relief driver at the time you are discharged. [...] spirometer use 3) Practice good oral care. [place] your teeth and use mouthwash twice daily. [...] Monday 8:30 AM to 5 PM at [phone] and select option 2. During evening hours, weekends, and holidays call the [facility] at [phone]. Ask the lapping machine operator to page the orthopedic surgeon eye surgeon. Not all post-operative infections can be prevented, but early detection and proper treatment can prevent major catastrophes. Do not start antibiotics for incision infections without contacting the orthopedic surgeon first. IF in doubt, call the orthopedic surgeon. Lina Meléndez MD [address] [facility] [address] Call in 2 weeks for an osteoporosis workup including DEXA scan, vitamin D levels, intact PTH, and calcium intake. Total time spent on discharge on day of discharge 30 minutes. For full discharge orders and instructions, please see the after visit summary for this hospitalization. Matt Leavitt PA-C 12:11 PM 07/17/2019 PRINT CUTTER documented in this encounter Discharge Instructions Discharge Instr - Other OrdersMaNicole echeverria APRN, CNP - 07/17/2019 11:57 AM CST Ordered a Echocardiogram ad an outpatient, please have this done and follow up with your primary physician. PRINT CUTTER documented in this encounter Medications at Time [...] to patient and family. Prescriptions filled by [facility] pharmacy. Belongings checklist reviewed with patient and family and belongings sent. Care plan and education record updated. Patient pre-medicated for discharge: Yes. R: Patient and family verbalizes understanding and teaches back discharge instructions. Patient discharged at 1545 by: wheelchair with volunteer. PRINT CUTTER Larisa Gaines MD - 07/17/2019 12:44 PM [...] for the patient. Larisa Gaines MD [facility] Pager: [phone] Nicole Wilburn K, RYANN, MIXING TUMBLER OPERATOR - 07/17/2019 12:07 PM CST DAILY [...] 8.0* Assessment/Plan Center Diego is a 73-year-old Afro-Tanzanian female was admitted yesterday for a left [...] Continue atorvastatin 10 mg ?? Nicole Bey MIXING TUMBLER OPERATOR PRINT CUTTER Karen, Sandra Pretty, PT - 07/17/2019 8:27 [...] ??? Closed fracture of left proximal humerus Order: Eval and Treat: General rehab program 0 to 6 weeks postop: Geological Survey Field Assistant, wrist, elbow, axillary care, pendulums, active - [...] Lives with spouse, 2 daughters Home Environment: [facility] Stairs: 1 steps to enter home, then stay on 1 level: 1 rail Current Equipment Available: 4 wheeled walker Patient PT Goals: balance and get back to baseline Patient History: ?? Moderate Complexity: 1-2 personal factors and/or comorbidities that impact plan of care: recent surgery, DM2 OBJECTIVE [facility] Special Equipment: L shoulder sling Precautions: Falls risk and AROM OK to elbow, wrist, and hand 0 to 6 weeks postop: Geological Survey Field Assistant, wrist, elbow, axillary care, pendulums, active - [...] no LOB noted during session Standardized test: -PAC 6 Items (out of 24 points): Raw [...] medical necessity for the treatment plan above. PRINT CUTTER Jenna Delgado OTR/Tony - 07/17/2019 8:21 AM [...] L UE, 0 to 6 weeks postop: Geological Survey Field Assistant, wrist, elbow, axillary care, pendulums, active -assisted, [...] ADL/IADL completion for discharge home. GOAL MET terminologist goal: Patient will maximize independence and safety [...] medical necessity for the treatment plan above. PRINT CUTTER Adele Thompson RRT - 07/16/2019 9:58 PM CST Patient's home CPAP unit set up and ok for hospital use. Oxygen added to home CPAP: Yes Home humidifier filled: Yes Patient will need assistance placing CPAP on self: No Adele Thompson RRT 9:59 PM 07/16/2019 PRINT CUTTER Shagufta Magallanes RN - 07/16/2019 4:40 PM [...] settled to room. Will continue to monitor. PRINT CUTTER Bert Olguin HUC - 07/16/2019 4:21 PM CST Diabetic consult e-paged to Hospitalist pager per Dr. Rodriguez's post-op order request. PRINT CUTTER documented in this encounter Procedure Notes Edelmira Rodriguez MD - 07/16/2019 2:13 PM CST NAME: MARYAM CRISOSTOMO MR#: [id number] CSN: [id number] AUTHENTICATING CLINICIAN: Edelmira Rodriguez MD CONFIRM #: [id number] LOC: 1 OPERATIVE REPORT DATE OF OPERATION: 07/16/2019 : 1945 SURGEON: Edelmira Rodriguez MD PREOPERATIVE DIAGNOSIS: Four-part left proximal humerus fracture. POSTOPERATIVE DIAGNOSIS: Four-part left proximal humerus fracture. PROCEDURE: Open reduction, internal fixation left 4-part proximal humerus fracture. IMPLANT: Synthes 3-hole proximal humeral locking plate with suture fixation of tuberosities and cancellous allograft. STOCK HANGER: Gabriela Reddy APRN, MIXING TUMBLER OPERATOR. ANESTHESIA: Interscalene block with general endotracheal anesthesia. COMPLICATIONS: None. ESTIMATED BLOOD LOSS: 150 mL. INDICATIONS: The patient is 73 years old. She is right-hand dominant. On 07/04/2019, she fell. She was seen in [place] where she lives. She was placed in [...] head and the tuberosities. Thompson elevator and [place] elevator were also used to help control [...] postop. 5. Zero to 6 weeks postop: Geological Survey Field Assistant, wrist, elbow range of motion with axillary care and pendulums. Also, passive and active assisted forward elevation and external rotation at the side. 6. Six to 12 weeks postop: Add active range of motion in all directions. 7. Twelve plus weeks postop: Add strengthening. 8. Osteoporosis evaluation and treatment. JALIL:MEDQ C: CONFIRM #: [id number] PRINT CUTTER Gabriela Lopez, RN, FELL CUTTER MIXING TUMBLER OPERATOR - 07/16/2019 10:42 AM CST [facility] Brief Operative Progress Note Surgery Date: 07/16/2019 [...] left arm, 0 to 6 weeks postop: Geological Survey Field Assistant, wrist, elbow, axillary care, pendulums, active-assisted, and [...] TO ORDER AT DISCHARGE Gabriela Lopez, ROCCO, FELL CUTTER MIXING TUMBLER OPERATOR PRINT CUTTER documented in this encounter Consult Notes Cely [...] teamto assess. PATTIE Huggins 07/17/19 2:00 PM PRINT CUTTER Larisa Gaines MD - 07/16/2019 4:40 PM [...] complication, with long-term current use of insulin ([facility]) 03/23/2007 ??? Backache 03/23/2007 ??? Major depressive disorder, recurrent episode ([facility]) 01/17/2007 ??? Osteoarthrosis, unspecified whether generalized or [...] Labs and Imaging reviewed in [facility] and pertinent positives are as follows: Imaging: [...] at any time. Larisa Gaines MD [facility] Service Pager: [phone] PRINT CUTTER documented in this encounter OR Notes H&P - Edelmira Rodriguez MD - 07/16/2019 11:12 AM CST Agree with Dr. Umana's H and P from 07/11/19. No new updates. Edelmira Rodriguez MD PRINT CUTTER documented in this encounter Plan of Treatment Scheduled Referrals Name Type Priority Associated Diagnoses Order S [facility] Physical Therapy Referral Routine S/P ORIF (open reduction Ordered: 07/17/2019 internal fixatio n) fracture Other closed nondisplaced fracture of proximal end of left humerus, initial encounter documented as of this encounter Procedures Procedure Name Priority Date/Time Associated Comments Diagnosis BEDSIDE GLUCOSE Routine 07/17/2019 12:08 Results for this MONITOR POCT PM BLUEPRINT CUTTER procedure are i n the results section. ECG 12 LEAD STAT 07/17/2019 8:53 Results for this INPATIENT AM BLUEPRINT CUTTER procedure are i n the results section. BASIC METABOLIC Routine 07/17/2019 7:49 Results f or this PANEL AM BLUEPRINT CUTTER procedure are i n the results section. HEMOGLOBIN, BLOOD Routine 07/17/2019 7:49 Results for this AM BLUEPRINT CUTTER procedure are i n the results section. HGB A1C Routine 07/17/2019 7:49 Results for this AM BLUEPRINT CUTTER procedure are i n the results section. BEDSIDE GLUCOSE Routine 07/17/2019 7:17 Results f or this MONITOR POCT AM BLUEPRINT CUTTER procedure are i n the results section. BEDSIDE GLUCOSE Routine 07/16/2019 10:04 Results for this MONITOR POCT PM BLUEPRINT CUTTER procedure are i n the results section. ECG 12 LEAD STAT 07/16/2019 8:31 Results for this INPATIENT PM BLUEPRINT CUTTER procedure are i n the results section. TROPONIN I STAT 07/16/2019 8:04 Results for this PM BLUEPRINT CUTTER procedure are i n the results section. US VENOUS BILAT Routine 07/16/2019 7:29 Results f or this LOWER EXTREM PM BLUEPRINT CUTTER procedure are i n DOPPLER the results section. XR SHOULDER LT 2+ Routine 07/16/2019 7:03 Results for this VIEWS PM BLUEPRINT CUTTER procedure are i n the results section. BEDSIDE GLUCOSE Routine 07/16/2019 5:33 Results f or this MONITOR POCT PM BLUEPRINT CUTTER procedure are i n the results section. HEMOGLOBIN, BLOOD Routine 07/16/2019 4:57 Results for this PM BLUEPRINT CUTTER procedure are i n the results section. BEDSIDE GLUCOSE Routine 07/16/2019 2:14 Results f or this MONITOR POCT PM BLUEPRINT CUTTER procedure are i n the results section. BEDSIDE GLUCOSE Routine 07/16/2019 12:37 Results for this MONITOR POCT PM BLUEPRINT CUTTER procedure are i n the results section. BT SECOND DRAW STAT 07/16/2019 12:28 Results f or this PM BLUEPRINT CUTTER procedure are i n the results section. TYPE AND SCREEN STAT 07/16/2019 11:04 Results for this AM BLUEPRINT CUTTER procedure are i n the results section. ANTIBODY SCREEN STAT 07/16/2019 11:04 Results for this AM BLUEPRINT CUTTER procedure are i n the results section. BLOOD TYPE STAT 07/16/2019 11:04 Results for this AM BLUEPRINT CUTTER procedure are i n the results section. COMPLETE BLOOD STAT 07/16/2019 11:04 Results f or this COUNT-NO DIFF AM BLUEPRINT CUTTER procedure are in the results section. OPEN REDUCTION 07/16/2019 10:56 Closed fracture of INTERNAL FIXATION AM BLUEPRINT CUTTER proximal end of PROXIMAL HUMERUS left humerus, FRACTURE unspecified fracture morphology, initial encounter PREP RBC LR Specified Time 07/16/2019 10:48 Results f or this AM BLUEPRINT CUTTER procedure are i n the results section. ECG 12 LEAD Specified Time 07/16/2019 10:31 Results f or this INPATIENT AM BLUEPRINT CUTTER procedure are i n the results section. BEDSIDE GLUCOSE Routine 07/16/2019 10:06 Results for this MONITOR POCT AM BLUEPRINT CUTTER procedure are i n the results section. documented in this encounter Results (ABNORMAL) Bedside Glucose Monitor (07/17/2019 12:08 PM BLUEPRINT CUTTER) P athologist Signature Glucose, Whole 217 (H) 70 - 180 07/17/2019 [facility] Blood mg/dL 12:15 PM [facility] Specimen Anatomical Collection Method Collection Time Receive d Time (Source) Location / / Volume Laterality Blood 07/17/2019 12:08 07/17/2019 PM BLUEPRINT CUTTER 12:15 PM BLUEPRINT CUTTER Edelmira Rodriguez MD LAB_1 Performing Organization Address City/State/ZIP Code Phon e Number [facility] [address] [place] [address] ECG 12 LEAD INPATIENT (07/17/2019 8:53 AM BLUEPRINT CUTTER) P athologist Signature Ventricular Rate 66 BPM [facility] Atrial Rate 66 BPM [facility] P-R Interval 148 ms [facility] QRS Duration 88 ms [facility] QT 392 ms [facility] QTc 410 ms [facility] P [place] 38 degrees M[facility] T [place] 37 degrees [facility] Specimen (Source) Anatomical Collection Method Collection Time Re ceived Time Location / / Volume Laterality 07/17/2019 8:53 AM BLUEPRINT CUTTER Narrative [facility] - 07/17/2019 9:14 AM BLUEPRINT CUTTER Sinus rhythm Voltage criteria for left ventricular [...] MD PN ECG ORDERABLES Performing Organization Address City/[facility]/[place]IP [facility] [place] Number [facility] [address] [place] [address] (ABNORMAL) Basic Metabolic Panel (IN AM) (07/17/2019 7:49 AM BLUEPRINT CUTTER) Analysis Performed At Patho logist Time Signature Sodium 131 (L) 136 - 145 07/17/2019 [facility] mmol/L 8:42 AM [facility] Potassium 3.3 (L) 3.5 - 5.1 07/17/2019 [facility] mmol/L 8:42 AM [facility] Chloride 98 98 - 109 07/17/2019 [facility] mmol/L 8:42 AM [facility] CO2 25 20 - 29 07/17/2019 [facility] mmol/L 8:42 AM [facility] Anion Gap 8 7 - 16 07/17/2019 [facility] mmol/L 8:42 AM [facility] Calcium 8.4 8.4 - 10.4 07/17/2019 [facility] mg/dL 8:42 AM [facility] BUN 16 7 - 26 07/17/2019 [facility] mg/dL 8:42 AM [facility] Creatinine 0.65 0.55 - 07/17/2019 [facility] 1.02 mg/dL 8:42 AM [facility] GFR, Estimated >60 >60 07/17/2019 [facility] mL/min/1.7 8:42 AM [facility] 3m2 GFR, Est If >60 >60 07/17/2019 [facility] mL/min/1.7 8:42 AM [facility] [place] 3m2 Glucose 187 (H) 70 - 100 07/17/2019 [facility] mg/dL 8:42 AM [facility] Comment: The given reference range is fo r the fasting state. Non-fasting reference range for glucose is 70 - 180 mg/dL. Specimen Anatomical Collection Method / Collection Time Recei kaylene Time (Source) Location / Volume Laterality Blood Venipuncture / 07/17/2019 7:49 07/17/2019 7:56 Unknown AM BLUEPRINT CUTTER AM BLUEPRINT CUTTER Larisa Gaines MD LAB_1 Performing Organization Address City/State/[facility] Phon e Number [facility] [address] [place] [address] (ABNORMAL) Hemoglobin A1C Glycosylated (IN AM) (07/17/2019 7:49 AM BLUEPRINT CUTTER) Analysis Performed At Patho logist Time Signature Hemoglobin A1C 6.7 (H) <=5.6 % 07/17/2019 [facility] 1:39 PM [facility] Specimen Anatomical Collection Method / Collection Time Recei kaylene Time (Source) Location / Volume Laterality Blood Venipuncture / 07/17/2019 7:49 07/17/2019 7:56 Unknown AM BLUEPRINT CUTTER AM BLUEPRINT CUTTER Narrative [facility] - 07/17/2019 1:39 P M BLUEPRINT CUTTER For patients not previously diagnosed with diabetes: 5.7-6.4%: Increased risk for diabetes 6.5% and greater: Diagnostic for diabete s For patients diagnosed with diabetes: <8.0%: Goal of therapy for ages 18-75 Clinicians may recommend a higher or low er goal for specific individuals. Larisa Gaines MD LAB_1 Performing Organization Address City/[facility] Phon e Number [facility] [address] [place] [address] (ABNORMAL) Hemoglobin in AM POD #1 (07/17/2019 7:49 AM BLUEPRINT CUTTER) athologist Signature Hemoglobin 8.0 (L) 12.0 - 15.5 07/17/2019 [facility] g/dL 8:04 AM [facility] Specimen Anatomical Collection Method / Collection Time Recei kaylene Time (Source) Location / Volume Laterality Blood Venipuncture / 07/17/2019 7:49 07/17/2019 7:56 Unknown AM BLUEPRINT CUTTER AM BLUEPRINT CUTTER Gabriela Lopez RN, FELL CUTTER MIXING TUMBLER OPERATOR LAB_1 Performing Organization Address [facility] Phon e Number [facility] [address] [place] [address] (ABNORMAL) Bedside Glucose Monitor (07/17/2019 7:17 AM BLUEPRINT CUTTER) athologist Signature Glucose, Whole 182 (H) 70 - 180 07/17/2019 [facility] Blood mg/dL 7:20 AM [facility] Specimen Anatomical Collection Method Collection Time Receive d Time (Source) Location / / Volume Laterality Blood 07/17/2019 7:17 AM 0 7:20 BLUEPRINT CUTTER AM BLUEPRINT CUTTER Edelmira Rodriguez MD LAB_1 Performing Organization Address City/[facility] Phon e Number [facility] [address] [place] [address] (ABNORMAL) Bedside Glucose Monitor (07/16/2019 10:04 PM BLUEPRINT CUTTER) athologist Signature Glucose, Whole 333 (H) 70 - 180 07/16/2019 [facility] Blood mg/dL 10:10 PM [facility] Specimen Anatomical Collection Method Collection Time Receive d Time (Source) Location / / Volume Laterality Blood 07/16/2019 10:04 07/16/2019 PM BLUEPRINT CUTTER 10:10 PM BLUEPRINT CUTTER Edelmira Rodriguez MD LAB_1 Performing Organization Address [facility] Phon e Number [facility] [address] [place] [phone] ECG 12 Lead Inpatient (07/16/2019 8:31 PM BLUEPRINT CUTTER) athologist Signature Ventricular Rate 73 BPM [facility] Atrial Rate 73 BPM [facility] P-R Interval 152 ms [facility] QRS Duration 86 ms [facility] QT 376 ms [facility] QTc 414 ms [facility] P [place] 23 degrees [facility] R [place] 33 degrees [facility] T [place] 67 degrees [facility] Specimen (Source) Anatomical Collection Method Collection Time Re ceived Time Location / / Volume Laterality 07/16/2019 8:31 PM BLUEPRINT CUTTER Narrative [facility] - 07/17/2019 6:38 AM BLUEPRINT CUTTER Sinus rhythm ST elevation consider anterior injury or acute infarct ACUTE OH / STEMI Abnormal ECG When compared with ECG of 16-JUL-2019 10 :31, ST elevation V2,3 is new, slight ST depr ession avf Confirmed by Coleman Patel ([id number]) on 06/27 6:38:17 AM Procedure Note Coleman Patel MD - 07/17/2019Formatti ng of this note might be different from the original. Sinus rhythm ST elevation consider anterior injury or acute infarct ACUTE OH / STEMI Abnormal ECG When compared with ECG of 16-JUL-2019 10 :31, ST elevation V2,3 is new, slight ST depr ession avf Confirmed by Coleman Patel ([id number]) on 06/27 6:38:17 AM Daria Peng APRN, CNP PN ECG ORDERABLES Performing Organization Address City/State/ZIP Code Phon e Number [facility] [address] [place] [address] Troponin I STAT (07/16/2019 8:04 PM BLUEPRINT CUTTER) P athologist Signature Troponin I 0.02 0.00 - 0.03 07/16/2019 [facility] ng/mL 8:33 PM [facility] Specimen Anatomical Collection Method / Collection Time Recei kaylene Time (Source) Location / Volume Laterality Blood Venipuncture / 07/16/2019 8:04 07/16/2019 8:08 Unknown PM BLUEPRINT CUTTER PM BLUEPRINT CUTTER Daria Peng APRN, CNP LAB_1 Performing Organization Address City/[facility]/ZIP Code Phon e Number [facility] [address] [place] [address] US VENOUS BILAT LOWER EXTREM DOPPLER (07/16/2019 7:29 PM BLUEPRINT CUTTER) Anatomical Region Laterality Modality Vascular, Leg Ultrasound Specimen (Source) Anatomical Collection Method Collection Time Re ceived Time Location / / Volume Laterality 07/16/2019 6:58 PM BLUEPRINT CUTTER Impressions 07/16/2019 7:32 PM BLUEPRINT CUTTER COMPARISON: ??None. CLINICAL HISTORY: ??dyspnea and swelling [...] Shoulder Lt 2+ Views (07/16/2019 7:03 PM BLUEPRINT CUTTER) Anatomical Region Laterality Modality Upper Extremity, Shoulder Digital Radiog alexandra Specimen (Source) Anatomical Collection Method Collection Time Re ceived Time Location / / Volume Laterality 07/16/2019 6:22 PM BLUEPRINT CUTTER Impressions 07/16/2019 7:06 PM BLUEPRINT CUTTER COMPARISON: ??07/10/2019 FINDINGS: ??Interval plate and screw [...] in the acromioclavicular joint. Gabriela Lopez RN, FELL CUTTER MIXING TUMBLER OPERATOR RAD GD (ABNORMAL) Bedside Glucose Monitor (07/16/2019 5:33 PM BLUEPRINT CUTTER) athologist Signature Glucose, Whole 244 (H) 70 - 180 07/16/2019 [facility] Blood mg/dL 5:45 PM [facility] Specimen Anatomical Collection Method Collection Time Receive d Time (Source) Location / / Volume Laterality Blood 07/16/2019 5:33 PM 0 5:45 BLUEPRINT CUTTER PM BLUEPRINT CUTTER Edelmira Rodriguez MD LAB_1 Performing Organization Address [facility] Phon e Number [facility] [address] [place] [address] (ABNORMAL) Hemoglobin (07/16/2019 4:57 PM BLUEPRINT CUTTER) athologist Signature Hemoglobin 9.1 (L) 12.0 - 15.5 07/16/2019 [facility] g/dL 5:20 PM [facility] Specimen Anatomical Collection Method / Collection Time Recei kaylene Time (Source) Location / Volume Laterality Blood Venipuncture / 07/16/2019 4:57 07/16/2019 5:14 Unknown PM BLUEPRINT CUTTER PM BLUEPRINT CUTTER Gabriela Lopez RN, FELL CUTTER MIXING TUMBLER OPERATOR LAB_1 Performing Organization Address [facility] Phon e Number [facility] [address] [place] [address] (ABNORMAL) Bedside Glucose Monitor (07/16/2019 2:14 PM BLUEPRINT CUTTER) athologist Signature Glucose, Whole 206 (H) 70 - 180 07/16/2019 [facility] Blood mg/dL 2:20 PM [facility] Specimen Anatomical Collection Method Collection Time Receive d Time (Source) Location / / Volume Laterality Blood 07/16/2019 2:14 PM 0 2:20 BLUEPRINT CUTTER PM BLUEPRINT CUTTER Edelmira Rodriguez MD LAB_1 Performing Organization Address [facility] Phon e Number [facility] [address] [place] [address] (ABNORMAL) Bedside Glucose Monitor (07/16/2019 12:37 PM BLUEPRINT CUTTER) athologist Signature Glucose, Whole 183 (H) 70 - 180 07/16/2019 [facility] Blood mg/dL 2:40 PM [facility] Specimen Anatomical Collection Method Collection Time Receive d Time (Source) Location / / Volume Laterality Blood 07/16/2019 12:37 07/16/2019 2:40 PM BLUEPRINT CUTTER PM BLUEPRINT CUTTER Edelmira Rodriguez MD LAB_1 Performing Organization Address [facility] Phon e Number [facility] [address] [place] [address] Blood Type second draw (07/16/2019 12:28 PM BLUEPRINT CUTTER) athologist Signature ABO A 07/16/2019 [facility] 12:58 PM BLUEPRINT CUTTER BLOOD BANK RH Positive 07/16/2019 [facility] 12:58 PM BLUEPRINT CUTTER BLOOD BANK Specimen Anatomical Collection Method / Collection Time Recei kaylene Time (Source) Location / Volume Laterality Blood Venipuncture / 07/16/2019 12:28 0 Unknown PM BLUEPRINT CUTTER 12:40 PM BLUEPRINT CUTTER Edelmira Rodriguez MD LAB_1 Performing Organization Address [facility] Phon e Number [facility] [address] [place] [address] Antibody Screen (07/16/2019 11:04 AM BLUEPRINT CUTTER) [facility] Time Signature Antibody Screen Negative 07/16/2019 [facility] Interpretation 12:37 PM BLUEPRINT CUTTER BLOOD BANK Specimen Anatomical Collection Method / Collection Time Recei kaylene Time (Source) Location / Volume Laterality Blood Venipuncture / 07/16/2019 11:04 0 Unknown AM BLUEPRINT CUTTER 11:13 AM BLUEPRINT CUTTER Gabriela Lopez RN, FELL CUTTER MIXING TUMBLER OPERATOR LAB_1 Performing Organization Address [facility] Phon e Number [facility] [address] [place] [address] Blood Type (07/16/2019 11:04 AM BLUEPRINT CUTTER) athologist Signature ABO A 07/16/2019 [facility] 12:37 PM BLUEPRINT CUTTER BLOOD BANK RH Positive 07/16/2019 [facility] 12:37 PM BLUEPRINT C[facility]TER BLOOD BANK Specimen Anatomical Collection Method / Collection Time Recei kaylene Time (Source) Location / Volume Laterality Blood Venipuncture / 07/16/2019 11:04 0 Unknown AM BLUEPRINT CUTTER 11:13 AM BLUEPRINT CUTTER Gabriela Lopez RN, FELL CUTTER MIXING TUMBLER OPERATOR LAB_1 Performing Organization Address [facility] Phon e Number [facility] [address] [place] [address] (ABNORMAL) Complete Blood Count-No Diff (07/16/2019 11:04 AM BLUEPRINT CUTTER) [facility] Method Time Signature WBC 5.6 3.5 - 10.5 07/16/2019 [facility] x10(9)/L 11:26 AM BLUEPRINT CUTTER LABORATORY RBC 2.99 (L) 3.90 - 07/16/2019 [facility] 5.03 11:26 AM BLUEPRINT CUTTER LABORATORY x10(12)/L Hemoglobin 9.5 (L) 12.0 - 07/16/2019 [facility] 15.5 g/dL 11:26 AM BLUEPRINT CUTTER LABORATORY HCT 28.0 (L) 34.9 - 07/16/2019 [facility] 44.5 % 11:26 AM BLUEPRINT CUTTER LABORATORY MCV 93.6 80.0 - 07/16/2019 [facility] 100.0 fL 11:26 AM BLUEPRINT CUTTER LABORATORY MCH 31.8 27.6 - 07/16/2019 [facility] 33.3 pg 11:26 AM BLUEPRINT CUTTER LABORATORY MCHC 33.9 31.5 - 07/16/2019 [facility] 35.2 g/dL 11:26 AM BLUEPRINT CUTTER LABORATORY RDW 12.3 11.9 - 07/16/2019 [facility] 15.5 % 11:26 AM BLUEPRINT CUTTER LABORATORY Platelets 309 150 - 450 07/16/2019 [facility] x10(9)/L 11:26 AM BLUEPRINT CUTTER LABORATORY Automated NRBC 0 <=0 /100 07/16/2019 [facility] WBC 11:26 AM BLUEPRINT CUTTER LABORATORY Specimen Anatomical Collection Method / Collection Time Recei kaylene Time (Source) Location / Volume Laterality Blood Venipuncture / 07/16/2019 11:04 0 Unknown AM BLUEPRINT CUTTER 11:13 AM BLUEPRINT CUTTER Gabriela Lopez RN, FELL CUTTER MIXING TUMBLER OPERATOR LAB_1 Performing Organization Address [facility] Phon e Number [facility] [address] [place] [address] Prep RBC: , 1 Units (07/16/2019 10:48 AM BLUEPRINT CUTTER) Component Value Ref Test Analysis Performed At Patholo gist Range Method Time Signature BLOOD PRODUCT [id number] [facility] CODE BLOOD BANK BLOOD UNIT NUMBER [id number] METHOD IST BLOOD BANK CROSSMATCH Compatible [facility] INTERPRETATION BLOOD BANK BLOOD DISPENSE Returned/Releas [facility] STATUS ed BLOOD BANK Unit Expiration [id number] [facility] Date BLOOD BANK UNIT BT BARCODE 6200 [facility] CODING SYSTEM ISBT [facility] PRODUCT RBC LR [facility] Specimen (Source) Anatomical Collection Method Collection Time Re ceived Time Location / / Volume Laterality Blood 07/16/2019 10:48 AM BLUEPRINT CUTTER Gabriela Lopez RN, FELL CUTTER MIXING TUMBLER OPERATOR LAB_BLOOD PRODUCT S Performing Organization Address City/[facility] Phon e Number [facility] [address] [place] [address] ECG 12 Lead Inpatient (07/16/2019 10:31 AM BLUEPRINT CUTTER) P athologist Signature Ventricular Rate 87 BPM [facility] Atrial Rate 87 BPM [facility] P-R Interval 152 ms [facility] QRS Duration 86 ms [facility] QT 364 ms [facility] QTc 438 ms [facility] P [place] 44 degrees [facility] R [place] 14 degrees MUSE [facility] T [place] 51 degrees [facility] Specimen (Source) Anatomical Collection Method Collection Time Re ceived Time Location / / Volume Laterality 07/16/2019 10:31 AM BLUEPRINT CUTTER Narrative [facility]USE [facility] - 07/16/2019 11:01 AM BLUEPRINT CUTTER Sinus rhythm Possible Left atrial enlargement Possible [...] e Number [facility] [address] [place] [address] Bedside Glucose Monitor (07/16/2019 10:06 AM BLUEPRINT CUTTER) P athologist Signature Glucose, Whole 177 70 - 180 07/16/2019 [facility] Blood mg/dL 10:10 AM BLUEPRINT CUTTER LABORATORY Specimen Anatomical Collection Method Collection Time Receive d Time (Source) Location / / Volume Laterality Blood 07/16/2019 10:06 07/16/2019 AM BLUEPRINT CUTTER 10:10 AM BLUEPRINT CUTTER Edelmira Rodriguez MD LAB_1 Performing Organization Address City/State/ZIP Code Phon e Number [facility] [address] [place] [address] documented in this encounter Visit Diagnoses Diagnosis [...] Daria Peng APRN, KAI 6:25 PM 07/16/2019 PRINT CUTTER documented in this encounter Admitting Diagnoses Diagnosis Closed fracture of left proximal humerus Closed fracture of unspecified part of u pper end of humerus documented in this encounter Administered Medications Inactive Administered Medications - up to 3 most recent administrations Medication Order MAR Action Action Date Dose Rate Site acetaminophen (TYLENOL) tablet 650 Given 07/17/2019 3:06 PM BLUEPRINT CUTTER 650 mg mg 650 mg, Oral, QID, First dose on Mon07/16/19 at 2000, Until Discontinued, Post-op Given 07/17/2019 12:46 PM BLUEPRINT CUTTER 650 mg Given 07/17/2019 8:09 AM BLUEPRINT CUTTER 650 mg aspirin EC enteric coated tablet 162 mg Given 07/17/2019 10:47 AM BLUEPRINT CUTTER 162 mg 162 mg, Oral, DAILY, First dose on Mon07/17/19 at 1015, Until Discontinued, Tablet should be swallowed whole. atorvastatin (LIPITOR) tablet 10 mg Given 07/16/2019 8:07 PM BLUEPRINT CUTTER 10 mg 10 mg, Oral, DAILY - 1999, First dose on Mon07/16/19 at 2000, Until Discontinued calcium carbonate (TUMS) chewable tablet Given 07/17/2019 1:29 A M BLUEPRINT CUTTER 500 mg 500-1,000 mg 500-1,000 mg, Oral, TID PRN, Heartburn, Starting on Mon07/17/19 at 0051, Until Mon07/17/19 at 1742, Each tablet provides 200 mg elemental calcium cloNIDine (CATAPRES) tablet 0.3 mg Given 07/17/2019 2:27 PM BLUEPRINT CUTTER 0.3 mg 0.3 mg, Oral, TID, First dose on Mon07/16/19 at 2000, Until Discontinued Given 07/17/2019 8:09 AM BLUEPRINT CUTTER 0.3 mg Given 07/16/2019 8:07 PM BLUEPRINT CUTTER 0.3 mg clopidogrel (PLAVIX) tablet 75 mg Given 07/17/2019 8:09 AM BLUEPRINT CUTTER 75 mg 75 mg, Oral, DAILY, First [...] For patient WITHOUT existing IV access: [facility] or Resident Clinician to establish an access site fluticasone propionate (FLONASE) 50 MCG/ACT Given 06/27 8:09 AM BLUEPRINT CUTTER 2 Sprays nasal spray 2 [place] 2 [place], Both Nostrils, BID, First dose on Mon07/16/19 [...] water to clean. Given 07/16/2019 8:39 PM BLUEPRINT CUTTER 2 Sprays glucose (GLUTOSE) oral gel 15-30 g of gl ucose 15-30 g of glucose, Oral, PRN, Hypoglycemia, blood glu cose less than 70mg/dL, Starting on Mon07/16/19 at 1712, Until Mon07/17/19 at 1742, As directed by the Hypoglycemia Treatment Protocol. 37.5g tube delivers 1 5g of glucose HYDROmorphone injectable 0.2 mg Given 07/17/2019 6:48 AM BLUEPRINT CUTTER 0.2 mg 0.2 mg, Intravenous, Q1H PRN, [...] time as ORAL opioids. HOLD if on AERIAL INSTALLER., Post-op Given 07/17/2019 4:49 AM BLUEPRINT CUTTER 0.2 mg HYDROmorphone injectable 0.2-0.4 mg Given 07/17/2019 5:27 AM BLUEPRINT CUTTER 0.4 mg 0.2-0.4 mg, Intravenous, ONCE PRN, [...] insulin glargine (LANtus) Given 07/16/2019 8:26 PM BLUEPRINT CUTTER 18 Units Abdominal Tissue 100 UNIT/ML injection 18 Units 18 Units, Subcutaneous, DAILY, First dose on Mon07/16/19 at 2100, Until Discontinued, DO NOT mix with other insulin or give IV. Hazardous waste disposal required. insulin lispro (HumALOG) Given 07/17/2019 12:47 PM 2 Units Abdominal Tissue injection vial BLUEPRINT CUTTER Subcutaneous, TID WITH MEALS, First dose on Mon07/16/19 at 1730, Mealtime Insulin: Give 1 unit per carb choice (15 grams of carbohydrate) Given 07/17/2019 8:13 AM BLUEPRINT CUTTER 2 Units Abdom inal Tissue Given 07/16/2019 5:30 PM BLUEPRINT CUTTER 3 Units Abdom inal Tissue insulin lispro (HumALOG) Given 07/17/2019 1:32 AM 1 Units Abdominal Tissue injection vial BLUEPRINT CUTTER Subcutaneous, PRN SEE ADMIN INSTRUCTIONS, Other, Give with snack., Starting on Mon07/16/19 at 1712, For SNACKS, give 1 unit per carb choice (15 grams of carbohydrate) insulin lispro (HumALOG) Given 07/17/2019 12:47 PM 2 Units Abdominal Tissue injection vial BLUEPRINT CUTTER Subcutaneous, TID WITH MEALS, First dose on [...] please order separately. Given 07/17/2019 8:11 AM BLUEPRINT CUTTER 1 Units Abdom inal Tissue Given 07/16/2019 8:16 PM BLUEPRINT CUTTER 2 Units Abdom inal Tissue insulin lispro (HumALOG) injection vial Given 07/16/2019 10:26 PM BLUEPRINT CUTTER 3 Units Othe r Subcutaneous, HS, First [...] injection 15 mg Given 07/17/2019 8:45 AM BLUEPRINT CUTTER 15 mg 15 mg, Intravenous, Q6H, First dose on Mon07/17/19 at 0845, Last dose on Mon07/18/19 at 0200, For 24 hours magnesium hydroxide (MILK OF MAGNESIA) Given 07/17/2019 8:09 AM BLUEPRINT CUTTER 30 mL suspension 30 mL 30 mL, Oral, DAILY, First dose on Mon07/17/19 at 0800, Until Discontinued, Hold for loose stools., Post-op magnesium oxide-amino acids Given 07/16/2019 8:07 PM BLUEPRINT CUTTER 2 Table ts (YD-AQNN-BMSFOQL) tablet 2 Tablet 2 Tablet, Oral, HS, First dose on Mon07/16/19 at 2100, Until Discontinued, Provides 133 mg elemental Magnesium/tablet (2 tabs equivalent to one Mag-Ox 400 mg) ondansetron (ZOFRAN) injection 4 mg Given 07/17/2019 5:34 AM BLUEPRINT CUTTER 4 mg 4 mg, Intravenous, Q4H PRN, [...] immediate release tablet Given 07/17/2019 5:27 AM BLUEPRINT CUTTER 5 mg 2.5-5 mg 2.5-5 mg, Oral, [...] immediate release Given 07/17/2019 3:07 P M BLUEPRINT CUTTER 10 mg tablet 5-10 mg 5-10 mg, Oral, Q2H PRN, Pain, Severe Pain (pain score 8-10), Starting on Mon07/17/19 at 0830, Until Mon07/17/19 at 1742 Given 07/17/2019 12:46 PM BLUEPRINT CUTTER 10 mg Given 07/17/2019 10:46 AM BLUEPRINT CUTTER 10 mg senna (SENOKOT) tablet 1 Tablet Given 07/16/2019 8:07 PM BLUEPRINT CUTTER 1 Tablet 1 Tablet, Oral, DAILY - 1999, First dose on Mon07/16/19 at 2000, Until Discontinued, Give every day while on opioids (stimulant) starting day of surgery. Hold for loose stools., Post-op sodium chloride 0.9% infusion Started 07/16/2019 4:45 PM BLUEPRINT CUTTER 75 mL/hr Intravenous, at 75 mL/hr, CONTINUOUS, Starting on Mon07/16/19 at 1415, Post-op sodium chloride 0.9% injection 10-60 mL Given 07/17/2019 4:49 AM BLUEPRINT CUTTER 10 mL 10-60 mL, Intravenous, PRN, Line Patency, Starting on Mon07/16/19 at 1046, Until Mon07/17/19 at 1742 sodium chloride for irrigation 0.9 Given 07/16/2019 1:15 PM BLUEPRINT CUTTER 1,000 mL Wound Site % ONCE PRN, Starting on Mon07/16/19 at 1315, Intra-op vancomycin (VANCOCIN) powder for Given 07/16/2019 1:15 PM BLUEPRINT CUTTER 50 0 mg Wound Site intra-op use ONCE PRN, Starting on Mon07/16/19 at 1315, Intra-op documented in this encounter Active and Recently Administered Medications Times are shown in BLUEPRINT CUTTER. Scheduled Medication Order 07/15/2019 07/16/2019 07/17/2019 acetaminophen (TYLENOL) tablet 1,000 mg (COMPLETED) 1000 (Given - Provider: Toya Rodriguez RN - Comment: 500mg given as ordered by Dr. Jordan) 1,000 mg, Oral, ONCE, Mon07/16/19 at 1000, For 1 dose, Give in P reop., Pre-op acetaminophen (TYLENOL) tablet 650 mg 20 07 (Given - Provider: Arjun Be RN) 0809 (Given - Provider: Shagufta Coleman, ROCCO)1246 (Given - Provider: Shagufta Magallanes RN)1506 (Given [...] ) 1140 (Given - Provider: Kaiden Peterson, FELL CUTTER, MANUFACTURING MAINTENANCE TECHNICIAN) 2 g, Intravenous, Administer over 30 Min utes, ONCE, Mon07/16/19 at 1000, For 1 dose, Infuse within 60 minutes prior to incision; Re-dose 1 gram IV every 4 hours after initial dose until incision closed., Pre-op ceFAZolin (ANCEF) 1 g in dextrose 50 ml IVPB (COMPLETED) 2038 (Started - Provider: Arjun Be RN)2108 (Infused - Provider: Arjun Be RN) 0354 (Started - Provider: Arjun Be RN)0424 (Infused - Provider: Arjun Be RN) 1 g, Intravenous, Administer over 30 Min utes, Q8H (NON-STND), First dose on Mon07/16/19 at 2000, For 2 doses, Post-op cloNIDine (CATAPRES) tablet 0.3 mg (COMPLETED) 1514 (Given - Provider: Nicole Renae RN) 0.3 mg, Oral, ONCE, Mon07/16/19 at 1515, For 1 dose, Tube to #25 , PACU (only) cloNIDine (CATAPRES) tablet 0.3 mg (COMPLETED) 1820 (Given - Provider: Shagufta Magallanes RN - Comment: Pt was refusing it.) 0.3 mg, Oral, ONCE, Mon07/16/19 at 1700, For 1 dose cloNIDine (CATAPRES) tablet 0.3 mg 2006 (Given - Provider: Arjun Be RN) 08 (Given - Provider: Shagufta Coleman, ROCCO)1427 (Given - Provider: Shagufta Magallanes, ROCCO) 0.3 mg, Oral, TID, First dose on Mon07/16/19 at 2000 clopidogrel (PLAVIX) tablet 75 mg 808 (Given - Provider: Shagufta Magallanes, ROCCO) 75 mg, Oral, DAILY, First dose on Mon07/17/19 at 0800 fluticasone propionate (FLONASE) 50 MCG/ACT nasal spray 2 Sp ray 2038 (Given - Provider: Arjun Be RN) 08 (Given - Provider: Shagufta Magallanes RN) 2 [place], Both Nostrils, BID, First dose on Mon07/16/19 [...] (Enter Reason in Comment Area) - Comment: error)2226 (Given - Provider: Arjun Be RN - [...] for loose stools., Post-op magnesium oxide-amino acids (SB-UKER-SBBEAVQ) tablet 2 Table t 2006 (Given - [...] (Anesthesia Fluid - Provider: Kaiden Peterson APRN, MANUFACTURING MAINTENANCE TECHNICIAN) 25 mL/hr, Intravenous, at 25 mL/hr, CONT [...] after IV opioid administration. HOLD if on AERIAL INSTALLER., Use of ORAL opioids is encouraged as [...] time as ORAL opioids. HOLD if on AERIAL INSTALLER., Post-op HYDROmorphone injectable 0.2-0.4 mg(Linked Group 2) [...] Provider: Nicole Renae RN) 0.5-1 mg, Intravenous, [id number], Anxiety , Starting Mon07/16/19 at 1535, Maximum cumulative dose is 2 mg. TO BE GIVEN IN PACU ONLY., PACU/Recovery midazolam (VERSED) injection 1-2 mg (CANCELED) 1111 (Given - Provider: Toya Rodriguez RN) 1-2 mg, Intravenous, [id number], Sedation, Anxiety, Procedure, Starting Mon07/16/19 at 0956, [...] (ZOFRAN-ODT) disintegrating tablet 4 mg(Linked Group 3) 0511 (See Alternative - Provider: Arjun Be RN) [...] Shagufta Magallanes, ROCCO)1246 (Given - Provider: Shagufta R Van [place], RN)1507 (Given - Provider: Shagufta Magallanes RN) [...] score increasing by 3 in 30minutes., Starting e 07/16/19 at 1618, For 24 hours
Do [...] Oral, Q4H PRN, Nausea, Vomiting, S tarting e 07/16/19 at 1653
Do not swallow tablet whole. Allow to dissolve on the tongue without chewing.
Post-op documented in this encounter Care Teams Roastmaster Relationship Specialty Start Date End Date Lina Meléndez MD PCP - General Internal Medicine [address] [place] [address] documented as of this encounter
--- OUTSIDE RECORDS SUMMARY | 2022-05-27 17:47 | XMS_ITS | Encounter Summary ---
:1945 Author [facility] Address [address] [place] [address] Care Team Providers Name Role Phone Lina Meléndez MD Primary Care Provider Encounter Details Date Type Department Care Team Description 07/22/2019 Notes/Orders [facility] - Leeann Jara, Occupational Therapy OTR/L [address] [facility] [address] [place] [address] [place] [address] [phone] (Wo rk) Social History Tobacco Use Types [...] her rehabilitation at a Rehabilitation Clinic in [place] closer to her home. documented in this encounter Plan of Treatment Not on filedocumented as of this encounter Visit Diagnoses Not on filedocumented in this encounter Care Teams Chiropractic Practice Manager Relationship Specialty Start Date End Date Lina Meléndez MD PCP - General Internal Medicine 12/[address] [place] [address] documented as of this encounter
--- OUTSIDE RECORDS SUMMARY | 2022-05-27 17:47 | XMS_ITS | Encounter Summary ---
:1945 Author Organization [facility] Address [address] [place] [address] Care Team Providers Name Role Phone Lina Meléndez MD Primary Care Provider Encounter Details Date Type Department Care Team Description 07/22/2019 [facility] Leeann [facility]ara, Occupational Therapy OTR/L [address] [facility] [address] [place] [address] [place] [address] [phone] (Wo rk) Social History Tobacco Use Types [...] on filedocumented in this encounter Care Teams Vertical Roll Operator Relationship Specialty Start Date End Date Lina Meléndez MD PCP - General Internal Medicine [address] [place] [address] documented as of this encounter
--- OUTSIDE RECORDS SUMMARY | 2022-05-27 17:47 | XMS_ITS | Encounter Summary ---
:1945 [address] [email or web address] Address [address], [place] [address] Care Team Providers Name Role Phone Lina Meléndez MD Primary Care Provider Reason for Visit Procedure/Equipment (Routine) - Incomplete Specialty Diagnoses / Procedures Referred By Contact Refer red To Contact Diagnoses Closed fracture of proximal end of left humerus with routine healing, unspecified fracture morphology, subsequent encounter Edelmira Rodriguez MD Procedures XR Shoulder Lt 2+ Views [address] [place], [place] [address] Referral ID Status Reason Start Date Expiration Date Visits V isits Requested Authorized [id number] Incomplete 08/13/2019 11/11/2020 1 1 Encounter Details Date Type Department Care Team Description 08/26/2019 [facility] Edelmira Rodriguez, Closed fracture of Procedure 3931 Radiology MD proximal end of X-ray [address] [facility] left humerus, [address] [facility]. unspecified [place], [place] fracture [facility], [address] morphology, [place] [address] encounter (Work) Social History Tobacco Use Types [...] fracture o f Results for this VIEWS PAINTER TOUCH UP proximal end of left procedu re are in humerus, unspecified the res ults fracture morphology, section . initial encounter documented in this encounter Results XR Shoulder Lt 2+ Views (08/26/2019 9:42 AM PAINTER TOUCH UP) Anatomical Region Laterality Modality Upper Extremity, Shoulder Digital Radiog alexandra Specimen (Source) Anatomical Collection Method Collection Time Re ceived Time Location / / Volume Laterality 08/26/2019 9:32 AM PAINTER TOUCH UP Impressions 08/26/2019 10:19 AM PAINTER TOUCH UP COMPARISON: ??07/31/2019 FINDINGS: ??No change in alignment [...] encounter documented in this encounter Care Teams Gang Sawyer Relationship Specialty Start Date End Date Lina Meléndez MD PCP - General Internal Medicine [address] [place] [address] documented as of this encounter
--- OUTSIDE RECORDS SUMMARY | 2022-05-27 17:47 | XMS_ITS | Encounter Summary ---
:1945 Author Organization [facility] Address [address] [place] [address] Care Team Providers Name Role Phone Lina Meléndez MD Primary Care Provider Reason for Referral Therapies (Routine) - Incomplete Specialty Diagnoses / Procedures Referred By Contact Refer red To Contact Diagnoses S/P ORIF (open reduction internal fixation) fracture Other closed nondisplaced fracture of proximal end of left humerus, initial encounter Matt Leavitt PA-C [address] [place], [place] [address] Referral ID Status Reason Start Date Expiration Date Visits V isits Requested Authorized [id number] Incomplete 07/17/2019 09/15/2019 1 1 Scheduling Instructions [...] ask your clinician's staff to assist you. NARY DIRECTOR (Routine) - Closed Specialty Diagnoses / Procedures Referred By Contact Refer red To Contact Diagnoses Pain Shortness of breath Nicole Bey, MINE DEPUTY, Procedures Echocardiogram WAXED BAG MACHINE OPERATOR [address] [place] [address] Referral ID Status Reason Start Date Expiration Date Visits Requ ested Visits Authorized [id number] Closed 07/17/2019 10/15/2020 1 1 NARY DIRECTOR (Routine) - Closed Specialty Diagnoses / Procedures Referred By Contact Refer red To Contact Procedures Larisa Gaines MD ECG 12 LEAD INPATIENT [address] [place] [address] Referral ID Status Reason Start Date Expiration Date Visits Requ ested Visits Authorized [id number] Closed 07/17/2019 10/15/2020 1 1 NARY DIRECTOR (Routine) - Closed Specialty Diagnoses / Procedures Referred By Contact Refer red To Contact Procedures Daria Peng APRN, KAI ECG 12 Lead Inpatient [address] [facility] [place], [place] [address] Referral ID Status Reason Start Date Expiration Date Visits Requ ested Visits Authorized [id number] Closed 07/16/2019 10/14/2020 1 1 NARY DIRECTOR Procedure/Equipment (Routine) - Incomplete Specialty Diagnoses / Procedures Referred By Contact Refer red To Contact Procedures Larisa Gaines MD US VENOUS BILAT LOWER EXTREM [address] [place] [address] Referral ID Status Reason Start Date Expiration Date Visits V isits Requested Authorized [id number] Incomplete 07/16/2019 10/14/2020 1 1 NARY DIRECTOR (Routine) - Closed Specialty Diagnoses / Procedures Referred By Contact Refer red To Contact Procedures Gabriela Lopez Echocardiogram RN, MINE DEPUTY WAXED BAG MACHINE OPERATOR [address] [place], [place] [address] Referral ID Status Reason Start Date Expiration Date Visits Requ ested Visits Authorized [id number] Closed 07/16/2019 10/14/2020 1 1 NARY DIRECTOR (Routine) - Closed Specialty Diagnoses / Procedures Referred By Contact Refer red To Contact Procedures Gabriela Lopez, Physical Therapy to Evaluate RN, RYANN CN P and Treat Gait and transfer [address] [facility] and [place], [place] [address] Strengthening as needed Post Phone: Operative Day # (Specify) twice a day. Referral ID Status Reason Start Date Expiration Date Visits Requ ested Visits Authorized [id number] Closed 07/16/2019 10/14/2020 1 1 rocedure/Equipment (Routine) - Incomplete Specialty Diagnoses / Procedures Referred By Contact Refer red To Contact Procedures Gabriela Lopez, XR Shoulder Lt 2+ Views RN, MINE DEPUTY WAXED BAG MACHINE OPERATOR [address] [place], [place] [address] Referral ID Status Reason Start Date Expiration Date Visits V isits Requested Authorized [id number] Incomplete 07/16/2019 10/14/2020 1 1 NARY DIRECTOR (Routine) - Closed Specialty Diagnoses / Procedures Referred By Contact Refer red To Contact Procedures Edelmira Rodriguez MD ECG 12 Lead Inpatient [address] [place], [place] [address] Referral ID Status Reason Start Date Expiration Date Visits Requ ested Visits Authorized [id number] Closed 07/16/2019 10/14/2020 1 1 NARY DIRECTOR Reason for Visit Auth/Cert Specialty Diagnoses / Procedures Referred By Contact Refer red To Contact Diagnoses Closed fracture of proximal end of left humerus, unspecified fracture morphology, initial encounter Procedures OPEN REDUCTION INTERNAL FIXATION PROXIMAL HUMERUS FRACTURE Referral ID Status Reason Start Date Expiration Date Visits Requ ested Visits Authorized [id number] 1 1 Encounter Details Date Type Department Care Team Description 07/16/2019 - [facility] Ortho Edelmira Rodriguez S/P IDRIS F (open reduction internal fixation) fracture (Primary Dx); 07/17/2019 Encounter Med Surg MD Josey Pain; [address] Other close d nondisplaced fracture of proximal end of left humerus, initial encounter; [address] Shortness of breath; [facility], [facility], Cerebrov ascular accident (CVA), unspecified mechanism (HRC); [place] [address] [place] [address] Hypertension, unspecified type; [phone] Hyperlipidemia LDL goal <70 (Work) Social History [...] Comments Blood Pressure 147/63 07/17/2019 2:34 PM CULINARY DIRECTOR Pulse 75 07/17/2019 2:34 PM CULINARY DIRECTOR Temperature 36.7 ??C (98.1 ??F) 07/17/2019 2:34 PM CULINARY DIRECTOR Respiratory Rate 18 07/17/2019 2:34 PM CULINARY DIRECTOR Oxygen Saturation 99% 07/17/2019 2:34 PM CULINARY DIRECTOR Inhaled Oxygen Concentration - - Weight 75 kg (165 lb 6.4 oz) 07/16/2019 10:19 AM CULINARY DIRECTOR Height 165.1 cm (5' 5) 07/16/2019 10:19 AM CULINARY DIRECTOR Body Mass Index 27.52 07/16/2019 10:19 AM CULINARY DIRECTOR documented in this encounter Discharge Summaries Matt Leavitt PA-C - 07/17/2019 11:51 AM CST Ortho Discharge Summary Admission Date: 07/16/2019 Discharge Date: 07/17/19 Admitting Diagnosis: Closed fracture of proximal end of left humerus, unspecified fracture morphology, initial encounter [S42.] Discharge diagnosis: S/p L proximal humerus ORIF [...] Your Medications These medications were sent to [facility] [address] [place] [id number] ?? acetaminophen 500 MG tablet ?? aspirin [...] continue non-weight bearing to Left upper extremity. Automotive Machinist, wrist, elbow range of motion with axillary [...] must be accompanied by a responsible adult water taxi driver at the time you are discharged. [...] spirometer use 3) Practice good oral care. Allen your teeth and use mouthwash twice daily. [...] Monday 8:30 AM to 5 PM at [phone] and select option 2. During evening hours, weekends, and holidays call the [facility] at [phone]. Ask the hob machine operator to page the orthopedic surgeon diversional therapist. Not all post-operative infections can be prevented, but early detection and proper treatment can prevent major catastrophes. Do not start antibiotics for incision infections without contacting the orthopedic surgeon first. IF in doubt, call the orthopedic surgeon. Lina Meléndez MD [address] [facility] [place] [address] Call in 2 weeks for an osteoporosis workup including DEXA scan, vitamin D levels, intact PTH, and calcium intake. Total time spent on discharge on day of discharge 30 minutes. For full discharge orders and instructions, please see the after visit summary for this hospitalization. Matt Leavitt PA-C 12:11 PM 07/17/2019 NARY DIRECTOR documented in this encounter Discharge Instructions Discharge Instr - Other OrdersMaNicole echeverria APRN, CNP - 07/17/2019 11:57 AM CST Ordered a Echocardiogram ad an outpatient, please have this done and follow up with your primary physician. NARY DIRECTOR documented in this encounter Medications at Time [...] to patient and family. Prescriptions filled by [facility] pharmacy. Belongings checklist reviewed with patient and family and belongings sent. Care plan and education record updated. Patient pre-medicated for discharge: Yes. R: Patient and family verbalizes understanding and teaches back discharge instructions. Patient discharged at 1545 by: wheelchair with volunteer. NARY DIRECTOR Larisa Gaines MD - 07/17/2019 12:44 PM [...] for the patient. Larisa Gaines MD [facility] Pager: [phone] NARY DIRECTOR Nicole Bey, MINE DEPUTY, WAXED BAG MACHINE OPERATOR - 07/17/2019 12:07 PM CST DAILY [...] 8.0* Assessment/Plan Center Diego is a 73-year-old Afro-Cambodian female was admitted yesterday for a left [...] Continue atorvastatin 10 mg ?? Nicole Bey WAXED BAG MACHINE OPERATOR NARY DIRECTOR Sandra Jones, PT - 07/17/2019 8:27 AM [...] rehab program 0 to 6 weeks postop: Automotive Machinist, wrist, elbow, axillary care, pendulums, active - [...] Lives with spouse, 2 daughters [facility] Stairs: 1 steps to enter home, [...] and hand 0 to 6 weeks postop: Automotive Machinist, wrist, elbow, axillary care, pendulums, active - [...] no LOB noted during session Standardized test: -[facility] 6 Items (out of 24 points): Raw Score: 24, Standardized Score: 57.68, G Code: CH, 0.00% impaired Suggested AM-[facility] Basic Mobility Stage: 52-65 - MOVING AROUND [...] medical necessity for the treatment plan above. NARY DIRECTOR Jenna Delgado OTR/Tony - 07/17/2019 8:21 AM [...] L UE, 0 to 6 weeks postop: Automotive Machinist, wrist, elbow, axillary care, pendulums, active -assisted, [...] ADL/IADL completion for discharge home. GOAL MET superintendent container terminal goal: Patient will maximize independence and safety [...] medical necessity for the treatment plan above. NARY DIRECTOR Adele Thompson RRT - 07/16/2019 9:58 PM CST Patient's home CPAP unit set up and ok for hospital use. Oxygen added to home CPAP: Yes Home humidifier filled: Yes Patient will need assistance placing CPAP on self: No Adele Thompson RRT 9:59 PM 07/16/2019 NARY DIRECTOR Shagufta Magallanes RN - 07/16/2019 4:40 PM [...] pager per Dr. Rodriguez's post-op order request. NARY DIRECTOR documented in this encounter Procedure Notes Edelmira Rodriguez MD - 07/16/2019 2:13 PM CST NAME: MARYAM CRISOSTOMO MR#: [id number] CSN: [id number] AUTHENTICATING CLINICIAN: Edelmira Rodriguez MD CONFIRM #: [id number] LOC: 1 OPERATIVE REPORT DATE OF OPERATION: 07/16/2019 : 1945 SURGEON: Edelmira Rodriguez MD PREOPERATIVE DIAGNOSIS: Four-part left proximal humerus fracture. POSTOPERATIVE DIAGNOSIS: Four-part left proximal humerus fracture. PROCEDURE: Open reduction, internal fixation left 4-part proximal humerus fracture. IMPLANT: Synthes 3-hole proximal humeral locking plate with suture fixation of tuberosities and cancellous allograft. PHYSIATRIST: Gabriela Reddy APRN, WAXED BAG MACHINE OPERATOR. ANESTHESIA: Interscalene block with general endotracheal anesthesia. COMPLICATIONS: None. ESTIMATED BLOOD LOSS: 150 mL. INDICATIONS: The patient is 73 years old. She is right-hand dominant. On 07/04/2019, she fell. She was seen in [place] where she lives. She was placed in [...] head and the tuberosities. Thompson elevator and Austwell elevator were also used to help control [...] postop. 5. Zero to 6 weeks postop: Automotive Machinist, wrist, elbow range of motion with axillary care and pendulums. Also, passive and active assisted forward elevation and external rotation at the side. 6. Six to 12 weeks postop: Add active range of motion in all directions. 7. Twelve plus weeks postop: Add strengthening. 8. Osteoporosis evaluation and treatment. JALIL:MEDQ C: CONFIRM #: [id number] Gabriela Carreon, RN, MINE DEPUTY WAXED BAG MACHINE OPERATOR - 07/16/2019 10:42 AM CST [facility] Brief Operative Progress Note Surgery Date: 07/16/2019 [...] left arm, 0 to 6 weeks postop: Automotive Machinist, wrist, elbow, axillary care, pendulums, active-assisted, and [...] TO ORDER AT DISCHARGE Gabriela Lopez RN, MINE DEPUTY WAXED BAG MACHINE OPERATOR NARY DIRECTOR documented in this encounter Consult Notes Cely [...] teamto assess. PATTIE Huggins 07/17/19 2:00 PM NARY DIRECTOR Larisa Gaines MD - 07/16/2019 4:40 PM [...] (gastroesophageal reflux disease) 12/18/2015 ??? HTN (hypertension) ([facility]) 12/18/2015 ??? Spinal stenosis of lumbar region without neurogenic claudication 12/18/2015 ??? Asthma ([facility]) 05/05/2007 ? ? Hyperlipidemia LDL goal <70 ([facility]) 05/05/2007 ??? Benign neoplasm of colon 05/05/2007 ??? Type 2 diabetes mellitus without complication, with long-term current use of insulin ([facility]) 03/23/2007 ??? Backache 03/23/2007 ??? Major depressive disorder, recurrent episode ([facility]) 01/17/2007 ??? Osteoarthrosis, unspecified whether generalized or [...] calf tenderness. [facility] and pertinent positives are as follows: Imaging: [...] to contact me at any time. Larisa aGines MD [facility] Pager: [phone] NARY DIRECTOR documented in this encounter OR Notes H&P - Edelmira Rodriguez MD - 07/16/2019 11:12 AM CST Agree with Dr. Umana's H and P from 07/11/19. No new updates. Edelmira Rodriguez MD NARY DIRECTOR documented in this encounter Plan of Treatment Scheduled Referrals Name Type Priority Associated Diagnoses Order S [facility] Physical Therapy Referral Routine S/P ORIF (open reduction Ordered: 07/17/2019 internal fixatio n) fracture Other closed nondisplaced fracture of proximal end of left humerus, initial encounter documented as of this encounter Procedures Procedure Name Priority Date/Time Associated Comments Diagnosis BEDSIDE GLUCOSE Routine 07/17/2019 12:08 Results for this MONITOR POCT PM CULINARY DIRECTOR procedure are i n the results section. ECG 12 LEAD STAT 07/17/2019 8:53 Results for this INPATIENT AM CULINARY DIRECTOR procedure are i n the results section. BASIC METABOLIC Routine 07/17/2019 7:49 Results f or this PANEL AM CULINARY DIRECTOR procedure are i n the results section. HEMOGLOBIN, BLOOD Routine 07/17/2019 7:49 Results for this AM CULINARY DIRECTOR procedure are i n the results section. HGB A1C Routine 07/17/2019 7:49 Results for this AM CULINARY DIRECTOR procedure are i n the results section. BEDSIDE GLUCOSE Routine 07/17/2019 7:17 Results f or this MONITOR POCT AM CULINARY DIRECTOR procedure are i n the results section. BEDSIDE GLUCOSE Routine 07/16/2019 10:04 Results for this MONITOR POCT PM CULINARY DIRECTOR procedure are i n the results section. ECG 12 LEAD STAT 07/16/2019 8:31 Results for this INPATIENT PM CULINARY DIRECTOR procedure are i n the results section. TROPONIN I STAT 07/16/2019 8:04 Results for this PM CULINARY DIRECTOR procedure are i n the results section. US VENOUS BILAT Routine 07/16/2019 7:29 Results f or this LOWER EXTREM PM CULINARY DIRECTOR procedure are i n DOPPLER the results section. XR SHOULDER LT 2+ Routine 07/16/2019 7:03 Results for this VIEWS PM CULINARY DIRECTOR procedure are i n the results section. BEDSIDE GLUCOSE Routine 07/16/2019 5:33 Results f or this MONITOR POCT PM CULINARY DIRECTOR procedure are i n the results section. HEMOGLOBIN, BLOOD Routine 07/16/2019 4:57 Results for this PM CULINARY DIRECTOR procedure are i n the results section. BEDSIDE GLUCOSE Routine 07/16/2019 2:14 Results f or this MONITOR POCT PM CULINARY DIRECTOR procedure are i n the results section. BEDSIDE GLUCOSE Routine 07/16/2019 12:37 Results for this MONITOR POCT PM CULINARY DIRECTOR procedure are i n the results section. BT SECOND DRAW STAT 07/16/2019 12:28 Results f or this PM CULINARY DIRECTOR procedure are i n the results section. TYPE AND SCREEN STAT 07/16/2019 11:04 Results for this AM CULINARY DIRECTOR procedure are i n the results section. ANTIBODY SCREEN STAT 07/16/2019 11:04 Results for this AM CULINARY DIRECTOR procedure are i n the results section. BLOOD TYPE STAT 07/16/2019 11:04 Results for this AM CULINARY DIRECTOR procedure are i n the results section. COMPLETE BLOOD STAT 07/16/2019 11:04 Results f or this COUNT-NO DIFF AM CULINARY DIRECTOR procedure are in the results section. OPEN REDUCTION 07/16/2019 10:56 Closed fracture of INTERNAL FIXATION AM CULINARY DIRECTOR proximal end of PROXIMAL HUMERUS left humerus, FRACTURE unspecified fracture morphology, initial encounter PREP RBC LR Specified Time 07/16/2019 10:48 Results f or this AM CULINARY DIRECTOR procedure are i n the results section. ECG 12 LEAD Specified Time 07/16/2019 10:31 Results f or this INPATIENT AM CULINARY DIRECTOR procedure are i n the results section. BEDSIDE GLUCOSE Routine 07/16/2019 10:06 Results for this MONITOR POCT AM CULINARY DIRECTOR procedure are i n the results section. documented in this encounter Results (ABNORMAL) Bedside Glucose Monitor (07/17/2019 12:08 PM CULINARY DIRECTOR) P athologist Signature Glucose, Whole 217 (H) 70 - 180 07/17/2019 [facility] Blood mg/dL 12:15 PM CULINARY DIRECTOR LABORATORY Specimen Anatomical Collection Method Collection Time Receive d Time (Source) Location / / Volume Laterality Blood 07/17/2019 12:08 07/17/2019 PM CULINARY DIRECTOR 12:15 PM CULINARY DIRECTOR Edelmira Rodriguez MD LAB_1 Performing Organization Address City/State/ZIP Code Phon e Number [facility] [address] [place] [address] ECG 12 LEAD INPATIENT (07/17/2019 8:53 AM CULINARY DIRECTOR) P athologist Signature Ventricular Rate 66 BPM [facility] Atrial Rate 66 BPM [facility] P-R Interval 148 ms [facility] QRS Duration 88 ms [facility] QT 392 ms [facility] QTc 410 ms [facility] P Simpson 38 degrees M[facility] T Simpson 37 degrees [facility] Specimen (Source) Anatomical Collection Method Collection Time Re ceived Time Location / / Volume Laterality 07/17/2019 8:53 AM CULINARY DIRECTOR Narrative [facility] - 07/17/2019 9:14 AM CULINARY DIRECTOR Sinus rhythm Voltage criteria for left ventricular [...] e Number MUSE [address] [place] [address] (ABNORMAL) Basic Metabolic Panel (IN AM) (07/17/2019 7:49 AM CULINARY DIRECTOR) Analysis Performed At Patho logist Time Signature Sodium 131 (L) 136 - 145 07/17/2019 [facility] mmol/L 8:42 AM CULINARY DIRECTOR LABORATORY Potassium 3.3 (L) 3.5 - 5.1 07/17/2019 [facility] mmol/L 8:42 AM CULINARY DIRECTOR LABORATORY Chloride 98 98 - 109 07/17/2019 [facility] mmol/L 8:42 AM CULINARY DIRECTOR LABORATORY CO2 25 20 - 29 07/17/2019 [facility] mmol/L 8:42 AM CULINARY DIRECTOR LABORATORY Anion Gap 8 7 - 16 07/17/2019 [facility] mmol/L 8:42 AM CULINARY DIRECTOR LABORATORY Calcium 8.4 8.4 - 10.4 07/17/2019 [facility] mg/dL 8:42 AM CULINARY DIRECTOR LABORATORY BUN 16 7 - 26 07/17/2019 [facility] mg/dL 8:42 AM CULINARY DIRECTOR LABORATORY Creatinine 0.65 0.55 - 07/17/2019 [facility] 1.02 mg/dL 8:42 AM CULINARY DIRECTOR LABORATORY GFR, Estimated >60 >60 07/17/2019 [facility] mL/min/1.7 8:42 AM CULINARY DIRECTOR LABORATORY 3m2 GFR, Est If >60 >60 07/17/2019 [facility] mL/min/1.7 8:42 AM CULINARY DIRECTOR LABORATORY Cambodian 3m2 Glucose 187 (H) 70 - 100 07/17/2019 [facility] mg/dL 8:42 AM CULINARY DIRECTOR LABORATORY Comment: The given reference range is fo r the fasting state. Non-fasting reference range for glucose is 70 - 180 mg/dL. Specimen Anatomical Collection Method / Collection Time Recei kaylene Time (Source) Location / Volume Laterality Blood Venipuncture / 07/17/2019 7:49 07/17/2019 7:56 Unknown AM CULINARY DIRECTOR AM CULINARY DIRECTOR Larisa Gaines MD LAB_1 Performing Organization Address [facility] Phon e Number [facility] [address] [place] [address] (ABNORMAL) Hemoglobin A1C Glycosylated (IN AM) (07/17/2019 7:49 AM CULINARY DIRECTOR) Analysis Performed At Patho logist Time Signature Hemoglobin A1C 6.7 (H) <=5.6 % 07/17/2019 [facility] 1:39 PM CULINARY DIRECTOR LABORATORY Specimen Anatomical Collection Method / Collection Time Recei kaylene Time (Source) Location / Volume Laterality Blood Venipuncture / 07/17/2019 7:49 07/17/2019 7:56 Unknown AM CULINARY DIRECTOR AM CULINARY DIRECTOR Narrative [facility] - 07/17/2019 1:39 P M CULINARY DIRECTOR For patients not previously diagnosed with diabetes: 5.7-6.4%: Increased risk for diabetes 6.5% and greater: Diagnostic for diabete s For patients diagnosed with diabetes: <8.0%: Goal of therapy for ages 18-75 Clinicians may recommend a higher or low er goal for specific individuals. Larisa Gaines MD LAB_1 Performing Organization Address [facility] Phon e Number [facility] [address] [place] [address] (ABNORMAL) Hemoglobin in AM POD #1 (07/17/2019 7:49 AM CULINARY DIRECTOR) P athologist Signature Hemoglobin 8.0 (L) 12.0 - 15.5 07/17/2019 [facility] g/dL 8:04 AM CULINARY DIRECTOR LABORATORY Specimen Anatomical Collection Method / Collection Time Recei kaylene Time (Source) Location / Volume Laterality Blood Venipuncture / 07/17/2019 7:49 07/17/2019 7:56 Unknown AM CULINARY DIRECTOR AM CULINARY DIRECTOR Gabriela Lopez RN, MINE DEPUTY WAXED BAG MACHINE OPERATOR LAB_1 Performing Organization Address [facility] Phon e Number [facility] [address] [place] [address] (ABNORMAL) Bedside Glucose Monitor (07/17/2019 7:17 AM CULINARY DIRECTOR) athologist Signature Glucose, Whole 182 (H) 70 - 180 07/17/2019 [facility] Blood mg/dL 7:20 AM CULINARY DIRECTOR LABORATORY Specimen Anatomical Collection Method Collection Time Receive d Time (Source) Location / / Volume Laterality Blood 07/17/2019 7:17 AM 0 7:20 CULINARY DIRECTOR AM CULINARY DIRECTOR Edelmira Rodriguez MD LAB_1 Performing Organization Address [facility] Phon e Number [facility] [address] [place] [address] (ABNORMAL) Bedside Glucose Monitor (07/16/2019 10:04 PM CULINARY DIRECTOR) athologist Signature Glucose, Whole 333 (H) 70 - 180 07/16/2019 [facility] Blood mg/dL 10:10 PM CULINARY DIRECTOR LABORATORY Specimen Anatomical Collection Method Collection Time Receive d Time (Source) Location / / Volume Laterality Blood 07/16/2019 10:04 07/16/2019 PM CULINARY DIRECTOR 10:10 PM CULINARY DIRECTOR Edelmira Rodriguez MD LAB_1 Performing Organization Address City/[facility] Phon e Number [facility] [address] [place] [address] ECG 12 Lead Inpatient (07/16/2019 8:31 PM CULINARY DIRECTOR) athologist Signature Ventricular Rate 73 BPM [facility] Atrial Rate 73 BPM [facility] P-R Interval 152 ms [facility] QRS Duration 86 ms [facility] QT 376 ms M[facility] QTc 414 ms M[facility] P Simpson 23 degrees MUSE [facility] R Simpson 33 degrees MUSE [facility] T Simpson 67 degrees MUSE [facility] Specimen (Source) Anatomical Collection Method Collection Time Re ceived Time Location / / Volume Laterality 07/16/2019 8:31 PM CULINARY DIRECTOR Narrative [facility] - 07/17/2019 6:38 AM CULINARY DIRECTOR Sinus rhythm ST elevation consider anterior injury or acute infarct ACUTE MA / STEMI Abnormal ECG When compared with ECG of 16-JUL-2019 10 :31, ST elevation V2,3 is new, slight ST depr ession avf Confirmed by Coleman Patel ([id number]) on 06/27 6:38:17 AM Procedure Note Coleman Patel MD - 07/17/2019Formatti ng of this note might be different from the original. Sinus rhythm ST elevation consider anterior injury or acute infarct ACUTE MA / STEMI Abnormal ECG When compared with ECG of 16-JUL-2019 10 :31, ST elevation V2,3 is new, slight ST depr ession avf Confirmed by Coleman Patel ([id number]) on 06/27 6:38:17 AM Daria Peng APRN, CNP PN ECG ORDERABLES Performing Organization Address City/State/ZIP Code Phon e Number [facility] [address] [place] [address] Troponin I STAT (07/16/2019 8:04 PM CULINARY DIRECTOR) athologist Signature Troponin I 0.02 0.00 - 0.03 07/16/2019 [facility] ng/mL 8:33 PM CULINARY DIRECTOR LABORATORY Specimen Anatomical Collection Method / Collection Time Recei kaylene Time (Source) Location / Volume Laterality Blood Venipuncture / 07/16/2019 8:04 07/16/2019 8:08 Unknown PM CULINARY DIRECTOR PM CULINARY DIRECTOR Daria Peng APRN, CNP LAB_1 Performing Organization Address City/[facility]/ZIP Code Phon e Number [facility] [address] [place] [address] VENOUS BILAT LOWER EXTREM DOPPLER (07/16/2019 7:29 PM CULINARY DIRECTOR) Anatomical Region Laterality Modality Vascular, Leg Ultrasound Specimen (Source) Anatomical Collection Method Collection Time Re ceived Time Location / / Volume Laterality 07/16/2019 6:58 PM CULINARY DIRECTOR Impressions 07/16/2019 7:32 PM CULINARY DIRECTOR COMPARISON: ??None. CLINICAL HISTORY: ??dyspnea and swelling [...] Shoulder Lt 2+ Views (07/16/2019 7:03 PM CULINARY DIRECTOR) Anatomical Region Laterality Modality Upper Extremity, Shoulder Digital Radiog alexandra Specimen (Source) Anatomical Collection Method Collection Time Re ceived Time Location / / Volume Laterality 07/16/2019 6:22 PM CULINARY DIRECTOR Impressions 07/16/2019 7:06 PM CULINARY DIRECTOR COMPARISON: ??07/10/2019 FINDINGS: ??Interval plate and screw [...] in the acromioclavicular joint. Gabriela Lopez RN, MINE DEPUTY WAXED BAG MACHINE OPERATOR RAD GD (ABNORMAL) Bedside Glucose Monitor (07/16/2019 5:33 PM CULINARY DIRECTOR) P athologist Signature Glucose, Whole 244 (H) 70 - 180 07/16/2019 [facility] Blood mg/dL 5:45 PM CULINARY DIRECTOR LABORATORY Specimen Anatomical Collection Method Collection Time Receive d Time (Source) Location / / Volume Laterality Blood 07/16/2019 5:33 PM 0 5:45 CULINARY DIRECTOR PM CULINARY DIRECTOR Edelmira Rodriguez MD LAB_1 Performing Organization Address City/State/ZIP Code Phon e Number [facility] [address] [place] [address] (ABNORMAL) Hemoglobin (07/16/2019 4:57 PM CULINARY DIRECTOR) athologist Signature Hemoglobin 9.1 (L) 12.0 - 15.5 07/16/2019 [facility] g/dL 5:20 PM CULINARY DIRECTOR LABORATORY Specimen Anatomical Collection Method / Collection Time Recei kaylene Time (Source) Location / Volume Laterality Blood Venipuncture / 07/16/2019 4:57 07/16/2019 5:14 Unknown PM CULINARY DIRECTOR PM CULINARY DIRECTOR Gabriela Lopez RN, MINE DEPUTY WAXED BAG MACHINE OPERATOR LAB_1 Performing Organization Address City/[facility] Phon e Number [facility] [address] [place] [address] (ABNORMAL) Bedside Glucose Monitor (07/16/2019 2:14 PM CULINARY DIRECTOR) athologist Signature Glucose, Whole 206 (H) 70 - 180 07/16/2019 [facility] Blood mg/dL 2:20 PM CULINARY DIRECTOR LABORATORY Specimen Anatomical Collection Method Collection Time Receive d Time (Source) Location / / Volume Laterality Blood 07/16/2019 2:14 PM 0 2:20 CULINARY DIRECTOR PM CULINARY DIRECTOR Edelmira Rodriguez MD LAB_1 Performing Organization Address City/[facility] Code Phon e Number [facility] [address] [place] [address] (ABNORMAL) Bedside Glucose Monitor (07/16/2019 12:37 PM CULINARY DIRECTOR) athologist Signature Glucose, Whole 183 (H) 70 - 180 07/16/2019 [facility] Blood mg/dL 2:40 PM CULINARY DIRECTOR LABORATORY Specimen Anatomical Collection Method Collection Time Receive d Time (Source) Location / / Volume Laterality Blood 07/16/2019 12:37 07/16/2019 2:40 PM CULINARY DIRECTOR PM CULINARY DIRECTOR Edelmira Rodriguez MD LAB_1 Performing Organization Address City/[facility] Phon e Number [facility] [address] [place] [address] Blood Type second draw (07/16/2019 12:28 PM CULINARY DIRECTOR) athologist Signature ABO A 07/16/2019 [facility] 12:58 PM CULINARY DIRECTOR BLOOD BANK RH Positive 07/16/2019 [facility] 12:58 PM CULINARY DIRECTOR BLOOD BANK Specimen Anatomical Collection Method / Collection Time Recei kaylene Time (Source) Location / Volume Laterality Blood Venipuncture / 07/16/2019 12:28 0 Unknown PM CULINARY DIRECTOR 12:40 PM CULINARY DIRECTOR Edelmira Rodriguez MD LAB_1 Performing Organization Address [facility] Phon e Number [facility] [address] [place] [address] Antibody Screen (07/16/2019 11:04 AM CULINARY DIRECTOR) [facility] Method Time Signature Antibody Screen Negative 07/16/2019 [facility] Interpretation 12:37 PM CULINARY DIRECTOR BLOOD BANK Specimen Anatomical Collection Method / Collection Time Recei kaylene Time (Source) Location / Volume Laterality Blood Venipuncture / 07/16/2019 11:04 0 Unknown AM CULINARY DIRECTOR 11:13 AM CULINARY DIRECTOR Gabriela Lopez RN, MINE DEPUTY WAXED BAG MACHINE OPERATOR LAB_1 Performing Organization Address [facility] Phon e Number [facility] [address] [place] [address] Blood Type (07/16/2019 11:04 AM CULINARY DIRECTOR) P athologist Signature ABO A 07/16/2019 [facility] 12:37 PM CULINARY DIRECTOR BLOOD BANK RH Positive 07/16/2019 [facility] 12:37 PM CULINARY DIRECTOR BLOOD BANK Specimen Anatomical Collection Method / Collection Time Recei kaylene Time (Source) Location / Volume Laterality Blood Venipuncture / 07/16/2019 11:04 0 Unknown AM CULINARY DIRECTOR 11:13 AM CULINARY DIRECTOR Gabriela Lopez RN, MINE DEPUTY WAXED BAG MACHINE OPERATOR LAB_1 Performing Organization Address [facility] Phon e Number [facility] [address] [place] [address] (ABNORMAL) Complete Blood Count-No Diff (07/16/2019 11:04 AM CULINARY DIRECTOR) [facility] Method Time Signature WBC 5.6 3.5 - 10.5 07/16/2019 [facility] x10(9)/L 11:26 AM CULINARY DIRECTOR LABORATORY RBC 2.99 (L) 3.90 - 07/16/2019 [facility] 5.03 11:26 AM CULINARY DIRECTOR LABORATORY x10(12)/L Hemoglobin 9.5 (L) 12.0 - 07/16/2019 [facility] 15.5 g/dL 11:26 AM CULINARY DIRECTOR LABORATORY HCT 28.0 (L) 34.9 - 07/16/2019 [facility] 44.5 % 11:26 AM CULINARY DIRECTOR LABORATORY MCV 93.6 80.0 - 07/16/2019 [facility] 100.0 fL 11:26 AM CULINARY DIRECTOR LABORATORY MCH 31.8 27.6 - 07/16/2019 [facility] 33.3 pg 11:26 AM CULINARY DIRECTOR LABORATORY MCHC 33.9 31.5 - 07/16/2019 [facility] 35.2 g/dL 11:26 AM CULINARY DIRECTOR LABORATORY RDW 12.3 11.9 - 07/16/2019 [facility] 15.5 % 11:26 AM CULINARY DIRECTOR LABORATORY Platelets 309 150 - 450 07/16/2019 [facility] x10(9)/L 11:26 AM CULINARY DIRECTOR LABORATORY Automated NRBC 0 <=0 /100 07/16/2019 [facility] WBC 11:26 AM CULINARY DIRECTOR LABORATORY Specimen Anatomical Collection Method / Collection Time Recei kaylene Time (Source) Location / Volume Laterality Blood Venipuncture / 07/16/2019 11:04 0 Unknown AM CULINARY DIRECTOR 11:13 AM CULINARY DIRECTOR Gabriela Lopez RN, MINE DEPUTY WAXED BAG MACHINE OPERATOR LAB_1 Performing Organization Address City/State/[facility] Code Phon e Number [facility] [address] [place] [address] Prep RBC: , 1 Units (07/16/2019 10:48 AM CULINARY DIRECTOR) Component Value Ref Test Analysis Performed At [facility] Method Time Signature BLOOD PRODUCT [id number] [facility] CODE BLOOD BANK BLOOD UNIT NUMBER [id number] METHOD IST BLOOD BANK CROSSMATCH Compatible [facility] INTERPRETATION BLOOD BANK BLOOD DISPENSE Returned/Releas [facility] STATUS ed BLOOD BANK Unit Expiration [id number] [facility] Date BLOOD BANK UNIT BT BARCODE 6200 [facility] CODING SYSTEM ISBT [facility] PRODUCT RBC LR [facility] Specimen (Source) Anatomical Collection Method Collection Time Re ceived Time Location / / Volume Laterality Blood 07/16/2019 10:48 AM CULINARY DIRECTOR Gabriela Lopez RN, MINE DEPUTY WAXED BAG MACHINE OPERATOR LAB_BLOOD PRODUCT S Performing Organization Address City/State/ZIP Code Phon e Number [facility] [address] [place] [address] ECG 12 Lead Inpatient (07/16/2019 10:31 AM CULINARY DIRECTOR) P athologist Signature Ventricular Rate 87 BPM [facility] Atrial Rate 87 BPM [facility] P-R Interval 152 ms [facility] QRS Duration 86 ms [facility] QT 364 ms [facility] QTc 438 ms [facility] P Simpson 44 degrees [facility] R Simpson 14 degrees [facility] T Simpson 51 degrees [facility] Specimen (Source) Anatomical Collection Method Collection Time Re ceived Time Location / / Volume Laterality 07/16/2019 10:31 AM CULINARY DIRECTOR Narrative [facility] - 07/16/2019 11:01 AM CULINARY DIRECTOR Sinus rhythm Possible Left atrial enlargement Possible [...] e Number [facility] [address] [place] [address] Bedside Glucose Monitor (07/16/2019 10:06 AM CULINARY DIRECTOR) P athologist Signature Glucose, Whole 177 70 - 180 07/16/2019 [facility] Blood mg/dL 10:10 AM CULINARY DIRECTOR LABORATORY Specimen Anatomical Collection Method Collection Time Receive d Time (Source) Location / / Volume Laterality Blood 07/16/2019 10:06 07/16/2019 AM CULINARY DIRECTOR 10:10 AM CULINARY DIRECTOR Edelmira Rodriguez MD LAB_1 Performing Organization Address City/State/ZIP Code Phon e Number [facility] [address] [place] [address] documented in this encounter Visit Diagnoses Diagnosis [...] with long-term current use of insulin (HRC) HTN (hypertension) (HRC) Unspecified essential hypertension Plan of Care - Daria Peng APRN, [...] Daria Peng APRN, KAI 6:25 PM 07/16/2019 NARY DIRECTOR documented in this encounter Admitting Diagnoses Diagnosis Closed fracture of left proximal humerus Closed fracture of unspecified part of u pper end of humerus documented in this encounter Administered Medications Inactive Administered Medications - up to 3 most recent administrations Medication Order MAR Action Action Date Dose Rate Site acetaminophen (TYLENOL) tablet Given 07/16/2019 10:00 AM CULINARY DIRECTOR 500 mg 1,000 mg 1,000 mg, Oral, ONCE, On Mon07/16/19 at 1000, For 1 dose, Give in Preop., Pre-op acetaminophen (TYLENOL) tablet 650 mg Given 07/17/2019 3:06 PM CULINARY DIRECTOR 650 mg 650 mg, Oral, QID, First dose on Mon07/16/19 at 2000, Until Discontinued, Post-op Given 07/17/2019 12:46 PM CULINARY DIRECTOR 650 mg Given 07/17/2019 8:09 AM CULINARY DIRECTOR 650 mg aspirin chewable tablet 81 mg Given 07/16/2019 8:07 PM CULINARY DIRECTOR 81 mg 81 mg, Oral, ONCE, On Mon07/16/19 at 1930, For 1 dose aspirin EC enteric coated tablet 162 mg Given 07/17/2019 10:47 AM CULINARY DIRECTOR 162 mg 162 mg, Oral, DAILY, First dose on Mon07/17/19 at 1015, Until Discontinued, Tablet should be swallowed whole. atorvastatin (LIPITOR) tablet 10 mg Given 07/16/2019 8:07 PM CULINARY DIRECTOR 10 mg 10 mg, Oral, DAILY - 1999, First dose on Mon07/16/19 at 2000, Until Discontinued calcium carbonate (TUMS) chewable tablet Given 07/17/2019 1:29 A M CULINARY DIRECTOR 500 mg 500-1,000 mg 500-1,000 mg, Oral, TID PRN, Heartburn, Starting on Mon07/17/19 at 0051, Until Mon07/17/19 at 1742, Each tablet provides 200 mg elemental calcium ceFAZolin (ANCEF) 1 g in dextrose 50 Started 07/17/2019 3:54 A M CULINARY DIRECTOR 1 g 100 mL/hr ml IVPB 1 g, Intravenous, Administer over 30 Minutes, Q8H (NON-STND), First dose on Mon07/16/19 at 2000, For 2 doses, Post-op Started 07/16/2019 8:39 PM CULINARY DIRECTOR 1 g 100 mL/hr cloNIDine (CATAPRES) tablet 0.3 mg Given 07/16/2019 3:15 PM CULINARY DIRECTOR 0.3 mg 0.3 mg, Oral, ONCE, On Mon07/16/19 at 1515, For 1 dose, Tube to #25, PACU (only) cloNIDine (CATAPRES) tablet 0.3 mg Given 07/16/2019 6:21 PM CULINARY DIRECTOR 0.3 mg 0.3 mg, Oral, ONCE, On Mon07/16/19 at 1700, For 1 dose cloNIDine (CATAPRES) tablet 0.3 mg Given 07/17/2019 2:27 PM CULINARY DIRECTOR 0.3 mg 0.3 mg, Oral, TID, First dose on Mon07/16/19 at 2000, Until Discontinued Given 07/17/2019 8:09 AM CULINARY DIRECTOR 0.3 mg Given 07/16/2019 8:07 PM CULINARY DIRECTOR 0.3 mg clopidogrel (PLAVIX) tablet 75 mg Given 07/17/2019 8:09 AM CULINARY DIRECTOR 75 mg 75 mg, Oral, DAILY, First [...] (FLONASE) 50 MCG/ACT Given 06/27 8:09 AM CULINARY DIRECTOR 2 Sprays nasal spray 2 [place] 2 [place], Both Nostrils, BID, First dose on Mon07/16/19 [...] water to clean. Given 07/16/2019 8:39 PM CULINARY DIRECTOR 2 Sprays glucose (GLUTOSE) oral gel 15-30 g of gl ucose 15-30 g of glucose, Oral, PRN, Hypoglycemia, blood glu cose less than 70mg/dL, Starting on Mon07/16/19 at 1712, Until Mon07/17/19 at 1742, As directed by the Hypoglycemia Treatment Protocol. 37.5g tube delivers 1 5g of glucose HYDROmorphone injectable 0.2 mg Given 07/17/2019 6:48 AM CULINARY DIRECTOR 0.2 mg 0.2 mg, Intravenous, Q1H PRN, [...] time as ORAL opioids. HOLD if on NITROCELLULOSE OPERATOR., Post-op Given 07/17/2019 4:49 AM CULINARY DIRECTOR 0.2 mg HYDROmorphone injectable 0.2-0.4 mg Given 07/17/2019 5:27 AM CULINARY DIRECTOR 0.4 mg 0.2-0.4 mg, Intravenous, ONCE PRN, [...] insulin glargine (LANtus) Given 07/16/2019 8:26 PM CULINARY DIRECTOR 18 Units Abdominal Tissue 100 UNIT/ML injection 18 Units 18 Units, Subcutaneous, DAILY, First dose on Mon07/16/19 at 2100, Until Discontinued, DO NOT mix with other insulin or give IV. Hazardous waste disposal required. insulin lispro (HumALOG) Given 07/17/2019 12:47 PM 2 Units Abdominal Tissue injection vial CULINARY DIRECTOR Subcutaneous, TID WITH MEALS, First dose on Mon07/16/19 at 1730, Mealtime Insulin: Give 1 unit per carb choice (15 grams of carbohydrate) Given 07/17/2019 8:13 AM CULINARY DIRECTOR 2 Units Abdom inal Tissue Given 07/16/2019 5:30 PM CULINARY DIRECTOR 3 Units Abdom inal Tissue insulin lispro (HumALOG) Given 07/17/2019 1:32 AM 1 Units Abdominal Tissue injection vial CULINARY DIRECTOR Subcutaneous, PRN SEE ADMIN INSTRUCTIONS, Other, Give with snack., Starting on Mon07/16/19 at 1712, For SNACKS, give 1 unit per carb choice (15 grams of carbohydrate) insulin lispro (HumALOG) Given 07/17/2019 12:47 PM 2 Units Abdominal Tissue injection vial CULINARY DIRECTOR Subcutaneous, TID WITH MEALS, First dose on [...] please order separately. Given 07/17/2019 8:11 AM CULINARY DIRECTOR 1 Units Abdom inal Tissue Given 07/16/2019 8:16 PM CULINARY DIRECTOR 2 Units Abdom inal Tissue insulin lispro (HumALOG) injection vial Given 07/16/2019 10:26 PM CULINARY DIRECTOR 3 Units Othe r Subcutaneous, HS, First [...] injection 15 mg Given 07/17/2019 8:45 AM CULINARY DIRECTOR 15 mg 15 mg, Intravenous, Q6H, First dose on Mon07/17/19 at 0845, Last dose on Mon07/18/19 at 0200, For 24 hours labetalol (NORMODYNE) injection 5 mg Given 07/16/2019 3:15 PM CULINARY DIRECTOR 5 mg 5 mg, Intravenous, ONCE, On Mon07/16/19 at 1515, For 1 dose, Give over 1 to 2 minutes, PACU (only) lactated ringers infusion Started 07/16/2019 10:51 AM CULINARY DIRECTOR 25 mL/hr 25 mL/hr Righ t Hand 25 mL/hr, Intravenous, CONTINUOUS, Starting on Mon07/16/19 at 1000, Administer on all preop surgery patients, ages 12 and older, unless specified differently in the Protocol for Preop Initiation of IV fluids Order Set., Pre-op lidocaine PF (XYLOCAINE) 1 % Given 07/16/2019 10:51 AM CULINARY DIRECTOR 0.1 m L Right Hand injection 0.1-0.3 mL 0.1-0.3 mL, Subcutaneous, ONCE, On Mon07/16/19 at 1000, For 1 dose, Lidocaine to be used for IV starts unless patient refuses., Pre-op magnesium hydroxide (MILK OF MAGNESIA) Given 07/17/2019 8:09 AM CULINARY DIRECTOR 30 mL suspension 30 mL 30 mL, Oral, DAILY, First dose on Mon07/17/19 at 0800, Until Discontinued, Hold for loose stools., Post-op magnesium oxide-amino acids Given 07/16/2019 8:07 PM CULINARY DIRECTOR 2 Table ts ([id number]) tablet 2 Tablet 2 Tablet, Oral, HS, First dose on Mon07/16/19 at 2100, Until Discontinued, Provides 133 mg elemental Magnesium/tablet (2 tabs equivalent to one Mag-Ox 400 mg) midazolam (VERSED) injection 0.5-1 mg Given 07/16/2019 3:33 PM CULINARY DIRECTOR 1 mg 0.5-1 mg, Intravenous, [id number], Anxiety, Starting on Mon07/16/19 at 1535, Until Mon07/16/19 at 1617, Maximum cumulative dose is 2 mg. TO BE GIVEN IN PACU ONLY., PACU/Recovery midazolam (VERSED) injection 1-2 mg Given 07/16/2019 11:11 AM CULINARY DIRECTOR 1 mg 1-2 mg, Intravenous, [id number], Sedation, Anxiety, Procedure, Starting on Mon07/16/19 at 0956, Until Mon07/16/19 at 1617, As directed by anesthesiologist MAX Dose 2mg, Pre-op ondansetron (ZOFRAN) injection 4 mg Given 07/17/2019 5:34 AM CULINARY DIRECTOR 4 mg 4 mg, Intravenous, Q4H PRN, [...] immediate release tablet Given 07/17/2019 5:27 AM CULINARY DIRECTOR 5 mg 2.5-5 mg 2.5-5 mg, Oral, [...] immediate release tablet Given 07/17/2019 8:09 AM CULINARY DIRECTOR 5 mg 2.5-5 mg 2.5-5 mg, Oral, Q2H PRN, Other, Moderate Pain (pain score 5-7), Severe Pain (pain score 8-10), Starting on Mon07/16/19 at 1618, Until Mon07/17/19 at 0823, Do NOT administer at the same time as IV opioids. May administer 1 hour after IV opioid administration. HOLD if on NITROCELLULOSE OPERATOR. Use of ORAL opioids is encouraged as patients anticipate discharge. (IV medications will be discontinued 48 hours post-op.) May give for anticipatory pain (ie prior to therapies, procedures) regardless of current pain score, Post-op Given 07/17/2019 3:48 AM CULINARY DIRECTOR 5 mg Given 07/17/2019 1:28 AM CULINARY DIRECTOR 2.5 mg oxyCODONE (ROXICODONE) immediate release Given 07/17/2019 3:07 P M CULINARY DIRECTOR 10 mg tablet 5-10 mg 5-10 mg, Oral, Q2H PRN, Pain, Severe Pain (pain score 8-10), Starting on Mon07/17/19 at 0830, Until Mon07/17/19 at 1742 Given 07/17/2019 12:46 PM CULINARY DIRECTOR 10 mg Given 07/17/2019 10:46 AM CULINARY DIRECTOR 10 mg senna (SENOKOT) tablet 1 Tablet Given 07/16/2019 8:07 PM CULINARY DIRECTOR 1 Tablet 1 Tablet, Oral, DAILY - 1999, First dose on Mon07/16/19 at 2000, Until Discontinued, Give every day while on opioids (stimulant) starting day of surgery. Hold for loose stools., Post-op sodium chloride 0.9% 0.9 % injection - ADS Given 07/17/2019 9:00 AM CULINARY DIRECTOR Override Pull Starting on Mon07/17/19 at 0844, Until Mon07/17/19 at 0900, For 1 dose, Shagufta Ramos : cabinet override sodium chloride 0.9% 0.9 % injection - ADS Given 07/17/2019 2:30 PM CULINARY DIRECTOR Override Pull Starting on Mon07/17/19 at 1422, Until Mon07/17/19 at 1430, For 1 dose, Shagufta Ramos : cabinet override sodium chloride 0.9% infusion Started 07/16/2019 4:45 PM CULINARY DIRECTOR 75 mL/hr Intravenous, at 75 mL/hr, CONTINUOUS, Starting on Mon07/16/19 at 1415, Post-op sodium chloride 0.9% injection 10-60 mL Given 07/17/2019 4:49 AM CULINARY DIRECTOR 10 mL 10-60 mL, Intravenous, PRN, Line Patency, Starting on Mon07/16/19 at 1046, Until Mon07/17/19 at 1742 documented in this encounter Active and Recently Administered Medications Times are shown in CULINARY DIRECTOR. Scheduled Medication Order 07/15/2019 07/16/2019 07/17/2019 acetaminophen [...] Shagufta Magallanes RN)1506 (Given - Provider: Shagufta Magallanes, ROCCO) 650 mg, Oral, QID, First dose on Mon07/16/19 at 1999, Post-op aspirin chewable tablet 81 mg (COMPLETED) [...] 1140 (Given - Provider: Kaiden Peterson APRN, MANAGEMENT SPECIALIST) 2 g, Intravenous, Administer over 30 Min [...] Shagufta Coleman RN)1427 (Given - Provider: Shagufta Magallanes RN) 0.3 mg, Oral, TID, First dose on Mon07/16/19 at 2000 clopidogrel (PLAVIX) tablet 75 mg 808 (Given - Provider: Shagufta Magallanes RN) 75 mg, Oral, DAILY, First dose on Mon07/17/19 at 0800 fluticasone propionate (FLONASE) 50 MCG/ACT nasal spray 2 Sp ray 2038 (Given - Provider: Arjun Be RN) 08 (Given - Provider: Shagufta Magallanes RN) 2 [place], Both Nostrils, BID, First dose on Mon07/16/19 [...] ROCCO)1427 (Not Given - Provider: Shagufta Magallanes, RN - Reason: Patient/family refused) 15 mg, [...] for loose stools., Post-op magnesium oxide-amino acids (FP-[id number]) tablet 2 Table t 2006 (Given - [...] (Anesthesia Fluid - Provider: Kaiden Peterson APRN, MANAGEMENT SPECIALIST) 25 mL/hr, Intravenous, at 25 mL/hr, CONT [...] mg, Oral, Q2H PRN, Pain, Starting We d 07/17/19 at 0822, Take 2mg for pain rating 0-5, take 4mg for pain rating 6-10., Do NOT administer at the same time as IV opioids. May administer 1 hour after IV opioid administration. HOLD if on NITROCELLULOSE OPERATOR., Use of ORAL opioids is encouraged as [...] time as ORAL opioids. HOLD if on NITROCELLULOSE OPERATOR., Post-op HYDROmorphone injectable 0.2-0.4 mg(Linked Group 2) [...] Provider: Nicole Renae RN) 0.5-1 mg, Intravenous, [id number], Anxiety , Starting Mon07/16/19 at 1535, Maximum cumulative dose is 2 mg. TO BE GIVEN IN PACU ONLY., PACU/Recovery midazolam (VERSED) injection 1-2 mg (CANCELED) 1111 (Given - Provider: Toya Rodriguez RN) 1-2 mg, Intravenous, [id number], Sedation, Anxiety, Procedure, Starting Mon07/16/19 at 0956, [...] Shagufta Magallanes, ROCCO)1507 (Given - Provider: Shagufta Magallanes RN) 5-10 [...] CARLA) 0900 (Given - Provider: Shagufta Magallanes, RN) Starting on Mon07/17/19 at 0844, Until W ed 07/17/19 at 0900, For 1 dose, Shagufta Ramos : cabinet override sodium chloride 0.9% 0.9 % injection - ADS Override Pull (COMPLE CARLA) 1430 (Given - Provider: Shagufta Magallanes, RN) Starting on Mon07/17/19 at 1422, Until [...]
Post-op documented in this encounter Care Teams Workforce Consultant Relationship Specialty Start Date End Date Lina Meléndez MD PCP - General Internal Medicine 12/20/[address] [place] [address] documented as of this encounter
--- OUTSIDE RECORDS SUMMARY | 2022-05-27 17:47 | XMS_ITS | Encounter Summary ---
:1945 Author Organization [facility] Address [address] [place] [id number] Care Team Providers Name Role Phone Lina Meléndez MD Primary Care Provider Reason for Visit Reason Comments Shoulder Problem Therapies (Routine) - Closed Specialty Diagnoses / Procedures Referred By Contact Refer red To Contact Occupational Therapy Diagnoses Other closed displaced fracture of proximal end of left humerus, initial encounter Edelmira Rodriguez MD [id number] Hand Therapy [address] [facility] [address], [place] [address] [address] [place] [address] Phone: Fax: Referral ID Status Reason Start Date Expiration Date Visits Requ ested Visits Authorized [id number] Closed 07/19/2019 09/17/2019 1 1 Encounter Details Date Type Department Care Team Description 07/22/2019 [facility] proximal end of left humerus, unspecified fracture morphology, initial encounter (Primary Dx); Center - Occupational M, OTR/L S/P ORIF (open reduction internal fixati on) fracture; Therapy [address] [place] [address] [place] [id number] Social History Tobacco Use Types Packs/Day Years Used Date Smoking Tobacco: Never Smokeless Tobacco: Never Alcohol Use Standard Drinks/Week Comments Yes 0 (1 standard drink = 0.6 oz pure alcoho l) Sex Assigned at Date Recorded Not on file documented as of this encounter Progress Notes Marek Robert M, OTR/L - 07/22/2019 10:30 AM CST Encounter Date 07/22/2019 [facility] 1945 [facility] - Evaluation/Plan of Care Visit Number: 1 Payor: [facility] / Plan: [facility] MEDICARE / Product Type: Medicare / [...] I want to do my therapy in [place] but they didn't have any openings. Past [...] does wish to continue her care in [place] when they have openings. Occupational Therapy Evaluation [...] edema control, review home exercise program The collections rep is completed by the therapist and the referring clinician's electronic signature certifies medical necessity for the plan above. NE SUPERVISOR documented in this encounter Plan of Treatment Scheduled Referrals Name Type Priority Associated Diagnoses Order S [facility] Hand Occupational Therapy Referral Routine Other closed di splaced Ordered: 07/19/2019 fracture of proximal end of left humerus, initial encounter documented as of this encounter Visit Diagnoses Diagnosis Closed fracture of proximal end of left humerus, unspecified fracture morphology, initial encounter - Primary S/P ORIF (open reduction internal fixati on) fracture Localized edema Edema documented in this encounter Care Teams Photoengraving Proofer Relationship Specialty Start Date End Date Lina Meléndez MD PCP - General Internal Medicine 12/20/181999 [place] [address] documented as of this encounter
--- OUTSIDE RECORDS SUMMARY | 2022-05-27 17:48 | XMS_ITS | Encounter Summary ---
:1945 Author Organization [facility] Address [address], [place] [address] Care Team Providers Name Role Phone Lina Meléndez MD Primary Care Provider Reason for Visit Procedure/Equipment (Routine) - Incomplete Specialty Diagnoses / Procedures Referred By Contact Refer red To Contact Procedures Provider, Foreign Images Foreign Image(S) XR Shoulder [address] [place] [address] Referral ID Status Reason Start Date Expiration Date Visits V isits Requested Authorized [id number] Incomplete 07/12/2019 10/10/2020 1 1 Encounter Details Date Type Department Care Team Description 07/04/2019 Ancillary Procedure [facility] Radiology PACS Provider, [address] [address] [address] [place] [address] Social History Tobacco Use Types Packs/Day Years [...] AM R esults for this SHOULDER LT BUILDING CERTIFIER procedure are i n the results section. documented in this encounter Results Foreign Image(S) XR Shoulder Lt (07/04/2019 10:20 AM BUILDING CERTIFIER) Specimen (Source) Anatomical Location Collection Method / Collectio n Time Received Time / Laterality Volume Narrative POCT - 07/12/2019 10:17 AM BUILDING CERTIFIER These outside images have been uploaded into PACS. If the results were provided, they will be located in the nory henriquez's chart under the Media or Imaging tab. Foreign Images Provider RAD NON-REPORTABLES Performing Organization Address City/State/ZIP Code Phon e Number POCT documented in this encounter Visit Diagnoses Not on filedocumented in this encounter Care Teams Sock Ironer Relationship Specialty Start Date End Date Lina Meléndez MD PCP - General Internal Medicine 12/[address] [place] [address] documented as of this encounter
--- OUTSIDE RECORDS SUMMARY | 2022-05-27 17:48 | XMS_ITS | Encounter Summary ---
:1945 Author Organization [facility] Address [address] [place] [address] Care Team Providers Name Role Phone Coleman Dye MD Primary Care Provider Unavailable Encounter Details Date Type Department Care Team Description 12/17/2009 PN Conversion Only [place] ON [address] [place] [address] Social History Tobacco Use Types Packs/Day Years Used Date Smoking Tobacco: Never Assessed Sex Assigned at Date Recorded Not on file documented as of this encounter Plan of Treatment Not on filedocumented as of this encounter Visit Diagnoses Not on filedocumented in this encounter Care Teams Flexographic Printing Press Operator Relationship Specialty Start Date End Date Coleman Dye MD PCP - General 09/27/1012/19 documented as of this encounter
--- OUTSIDE RECORDS SUMMARY | 2022-05-27 17:48 | XMS_ITS | Encounter Summary ---
:1945 Author Organization [facility] Address [address] [place] [address] Care Team Providers Name Role Phone Coleman Dye MD Primary Care Provider Unavailable Reason for Visit Reason Comments Osteoarthritis Encounter Details Date Type Department Care Team Description 06/22/2011 Office Visit Specialty Center 393 Rodrigo Rangel MD Primary localized [facility] [address] osteoarthrosis, lower [address] [facility]. Naun [address] leg (Primary Dx) [place] [address] [phone] Social History Tobacco Use Types Packs/Day Years Used Date Smoking Tobacco: Never Assessed Sex Assigned at Date Recorded Not on file documented as of this encounter Progress Notes Navneet Rangel MD - 06/22/2011 2:48 PM CST Progress Notes signed by Navneet Rangel MD at 06/22/11 047 Author: Navneet Rangel MD Service: (none) Author Type: Physician Filed: 06/22/111654 Note Time: 06/22/11 2138 Status: Signed Field Support Rep: Navneet Rangel MD (Physician) NAME: MARYAM CORTEZ MR#: [id number] CSN: [id number] AUTHENTICATING CLINICIAN: Navneet Rangel MD CONFIRM #: [id number] LOC: 211 CLINIC PROGRESS NOTE DATE OF VISIT: 06/22/2011 : 1945 Maryam is in for followup of her knees. In particular, her left knee has been bothering her. She underwent a left total knee arthroplasty in 2006 after having previously had a right total knee arthroplasty in 2004. The right knee was a posterior cruciate [...] in 2 years. PRD:MEDQ C: CONFIRM #: [id number] PREPARER documented in this encounter Plan of Treatment Not on filedocumented as of this encounter Procedures Procedure Name Priority Date/Time Associated Diagnosis Comme nts XR KNEE RT 3 VIEWS STAT 06/22/2011 1:37 PM Primary localize d Results for this HAIR PREPARER osteoarthrosis, procedure ar e in lower leg the results section. XR KNEE LT 3 VIEWS STAT 06/22/2011 1:37 PM Primary localize d Results for this HAIR PREPARER osteoarthrosis, procedure ar e in lower leg the results section. documented in this encounter Results XR Knee Rt 3 Views (06/22/2011 1:37 PM HAIR PREPARER) Anatomical Region Laterality Modality Lower Extremity, Knee Other Specimen (Source) Anatomical Location Collection Method / Collectio n Time Received Time / Laterality Volume Narrative 06/22/2011 1:45 PM HAIR PREPARER Comparison to left knee films 05/03/2007 and [...] Knee Lt 3 Views (06/22/2011 1:37 PM HAIR PREPARER) Anatomical Region Laterality Modality Lower Extremity, Knee Other Specimen (Source) Anatomical Location Collection Method / Collectio n Time Received Time / Laterality Volume Narrative 06/22/2011 1:45 PM HAIR PREPARER Comparison to left knee films 05/03/2007 and [...] Primary documented in this encounter Care Teams Burrer Hand Relationship Specialty Start Date End Date Coleman Dye MD PCP - General 09/27/1012/19 documented as of this encounter
--- OUTSIDE RECORDS SUMMARY | 2022-05-27 17:48 | XMS_ITS | Encounter Summary ---
:[address] [facility] Address [address] [place] [address] Care Team Providers Name Role Phone Lina Meléndez MD Primary Care Provider Reason for Visit Reason Comments Consult, New Patient Encounter Details Date Type Department Care Team Description 12/25/2018 Initial Consult Kacy Avila, Psoriasis ( Primary Dx); Rheumatology MD Gwen Osteoarthritis of multiple joints, unspe cified osteoarthritis type [address] [address] [phone] Social History Tobacco Use Types Packs/Day Years [...] the years. She was suggested by her manager semiconductor to have an evaluation to rule out [...] by his primary care provider or a manager semiconductor. 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 She neither smokes nor drinks. with an [...] Laboratory exams: No recent laboratory evaluation within [facility] system. Outside records: On 10/10/2018, glucose 130, [...] 40 minutes counseling. CC: Kirit Cee M.D. [address] [place] [address] documented in this encounter Plan of Treatment Not on filedocumented as of this encounter Visit Diagnoses Diagnosis Psoriasis - Primary Other psoriasis Osteoarthritis of multiple joints, unspe cified osteoarthritis type documented in this encounter Care Teams Bulk Mail Clerk Relationship Specialty Start Date End Date Lina Meléndez MD PCP - General Internal Medicine [address] [place] [address] documented as of this encounter
--- OUTSIDE RECORDS SUMMARY | 2022-05-27 17:48 | XMS_ITS | Encounter Summary ---
:1945 Author Organization [facility] Address [address], [place] [address] Care Team Providers Name Role Phone Coleman Dye MD Primary Care Provider Unavailable Reason for Visit Reason Comments Other Encounter Details Date Type Department Care Team Description 05/16/2007 Telephone Specialty Center [address], ROHINI Other Orthopedics [address] [place], [place] [address] Social History Tobacco Use Types Packs/Day Years Used Date Smoking Tobacco: Never Assessed Sex Assigned at Date Recorded Not on file documented as of this encounter Progress Notes Glenny Moctezuma - 05/16/2007 1:27 PM CST Phone Note filed by Glenny Moctezuma RN at 10/13/10 0898 Author: Glenny Moctezuma RN Service: (none) Author Type: (none) Filed: 10/13/10 0856 Note Time: 05/16/07 1327 Status: Signed Wind Turbine Electrical Engineer: [facility] Conversion Call from Maryam. 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 Please call with an appointment! Home# [phone], may leave a voice mail message. If this appointment can not be arranged before June 03,then Maryam is also requesting that a return to work note be faxed to [facility](Employer), attn.: Greta Narvaez! Maryam will call back with the fax# Created on 16May2007 1:27pm by GLENNY MOCTEZUMA On 16May2007 1:33pm GLENNY MOCTEZUMA wrote: Call from Maryam. Fax# at [facility] is [phone]; [facility] phone# [phone]. Please call Maryam at [phone], once addressed; may leave voice mail message. Acknowledged by GLENNY MOCTEZUMA on 1:33pm On 07Aug2007 2:33pm IMANI ARREOLA wrote: Pt had appt. 2-07-03 Acknowledged by IMANI ARREOLA on 2:33pm CE MANAGER documented in this encounter Plan of Treatment Not on filedocumented as of this encounter Visit Diagnoses Not on filedocumented in this encounter Care Teams Middle School Assistant Principal Relationship Specialty Start Date End Date Coleman Dye MD PCP - General 09/27/1012/19 documented as of this encounter
--- OUTSIDE RECORDS SUMMARY | 2022-05-27 17:48 | XMS_ITS | Encounter Summary ---
:1945 Author Organization [facility] Address [address] [place] [address] Care Team Providers Name Role Phone Coleman Dye MD Primary Care Provider Unavailable Encounter Details Date Type Department Care Team Description 05/03/2007 PN Conversion Only OTHER CONVERSION [address] [place] [address] Social History Tobacco Use Types Packs/Day Years Used Date Smoking Tobacco: Never Assessed Sex Assigned at Date Recorded Not on file documented as of this encounter Plan of Treatment Not on filedocumented as of this encounter Visit Diagnoses Not on filedocumented in this encounter Care Teams Rn Maternal Child Relationship Specialty Start Date End Date Coleman Dye MD PCP - General 09/27/1012/19 documented as of this encounter
--- OUTSIDE RECORDS SUMMARY | 2022-05-27 17:48 | XMS_ITS | Encounter Summary ---
:1945 Author Organization [email or web address] Address [address] [place] [address] Care Team Providers Name Role Phone Lina Meléndez MD Primary Care Provider Reason for Visit Auth/Cert Specialty Diagnoses / Procedures Referred By Contact Refer red To Contact Diagnoses Closed fracture of proximal end of left humerus, unspecified fracture morphology, initial encounter Procedures OPEN REDUCTION INTERNAL FIXATION PROXIMAL HUMERUS FRACTURE Referral ID Status Reason Start Date Expiration Date Visits Requ ested Visits Authorized [id number] 1 1 Encounter Details Date Type Department Care Team Description 07/16/2019 Anesthesia Event Denominational Operating Sincere Jordan MD [address] [place], [place] [id number] Ritika Lopez APRN, CRNA [address] [place] [address] [facility] [place] [address] Anesthesia Record Procedure Summary Procedure [...] Electr onically signed by Kaiden Peterson APRN, COMPACTING MACHINE OPERATOR/TENDER Name Total fentaNYL injection (SUBLIMAZE) 50 mcg [...] #1; No; 07/16/19 0000 by 1542 by Lda, Shoulder, Arm; Michelel Davenport Discontinue Anterior, Left; L, RN 07/31/19; [...] Ashley Renae; Michelle Davenport RN Indwelling Catheter; L, RN 16 Fr.; 1 ETT Placement Date: 07/16/19 1136 by 07/16/19 1355 b y 07/16/19; Placement Vilma, Linda Santos APRN, Krebsba ch, Anthony M, Time: 1136; Placed ANNA GARZON, COMPACTING MACHINE OPERATOR/TENDER By: COMPACTING MACHINE OPERATOR/TENDER; Induction Type: Pre-O2, IV; Masking: Easy; ETT [...] Jordan MD - 07/16/2019 4:43 PM CST [facility] Anesthesia Post-op Note Patient: Maryam Cortez Post-Op [...] by: Coleman Jordan MD 07/16/2019 4:43 PM HEALTH COORDINATOR Anesthesia Procedure Notes - Coleman Jordan MD - 07/16/2019 1:08 PM TELEHEALTH COORDINATOR Associated Order(s): Peripheral Nerve Block Peripheral Block [...] Sterile gloves and Mask Monitoring: Blood pressure, panel monitor and continuous pulse oximetry Patient Position: [...] solution for total injected volume of 26ml. HEALTH COORDINATOR Anesthesia Preprocedure Evaluation - Coleman Jordan MD - 07/16/2019 10:31 AM CST [facility] Anesthesia Pre-op Evaluation Procedure: Procedure(s): OPEN REDUCTION [...] benefits and alternatives discussed with: Patient or Coal Or Ore Controller agree tothe anesthesia treatment plan and Patient. [...] by: Coleman Jordan MD 07/16/2019 10:31 AM HEALTH COORDINATOR documented in this encounter Plan of Treatment Not on filedocumented as of this encounter Procedures Procedure Name Priority Date/Time Associated Diagnosis Comme nts PERIPHERAL BLOCK Routine 07/16/2019 1:08 PM Resul ts for this TELEHEALTH COORDINATOR procedure are i n the results section. documented in this encounter Results PERIPHERAL BLOCK (07/16/2019 1:08 PM TELEHEALTH COORDINATOR) Narrative EXTERNAL RESULTS - 07/16/2019 1:08 PM [...] 2 g in Given 07/16/2019 11:40 AM TELEHEALTH COORDINATOR 2 g dextrose 100 ml IVPB 2 g, Intravenous, Administer over 30 Minutes, ONCE, On Mon07/16/19 at 1000, For 1 dose, Infuse within 60 minutes prior to incision; Re-dose 1 gram IV every 4 hours after initial dose until incision closed., Pre-op dexamethasone (DECADRON) injection Given 07/16/2019 11:04 AM TELEHEALTH COORDINATOR 4 mg Intravenous, Starting on Mon07/16/19 at 1104, Until Mon07/16/19 at 1409 ePHEDrine 5mg/ml in 0.9% sodium chloride Given 07/16/2019 12:30 PM TELEHEALTH COORDINATOR 10 mg syringe Starting on Mon07/16/19 at 1204, Until Mon07/16/19 at 1409 Given 07/16/2019 12:04 PM TELEHEALTH COORDINATOR 5 mg esmolol (BREVIBLOC) injection Given 07/16/2019 2:07 PM TELEHEALTH COORDINATOR 10 mg Starting on Mon07/16/19 at 1358, Until Mon07/16/19 at 1409 Given 07/16/2019 2:00 PM TELEHEALTH COORDINATOR 20 mg Given 07/16/2019 1:58 PM TELEHEALTH COORDINATOR 20 mg fentaNYL (SUBLIMAZE) injection Given 07/16/2019 11:45 AM TELEHEALTH COORDINATOR 50 mcg Intravenous, Starting on Mon07/16/19 at 1145, Until Mon07/16/19 at 1409 furosemide (LASIX) injection Given 07/16/2019 12:00 PM TELEHEALTH COORDINATOR 20 mg Starting on Mon07/16/19 at 1200, Until Mon07/16/19 at 1409 glycopyrrolate (ROBINUL) injection Given 07/16/2019 1:47 PM TELEHEALTH COORDINATOR 0.6 mg Intravenous, Starting on Mon07/16/19 at 1347, Until Mon07/16/19 at 1409 lidocaine PF (XYLOCAINE) 1 % injection Given 07/16/2019 11:34 AM TELEHEALTH COORDINATOR 70 mg Intravenous, Starting on Mon07/16/19 at 1134 neostigmine (PROSTIGMINE) injection Given 07/16/2019 1:47 PM TELEHEALTH COORDINATOR 4 mg Intravenous, Starting on Mon07/16/19 at 1347, Until Mon07/16/19 at 1409 ondansetron (ZOFRAN) injection Given 07/16/2019 1:19 PM TELEHEALTH COORDINATOR 4 mg Intravenous, Starting on Mon07/16/19 at 1319, Until Mon07/16/19 at 1409 phenylephrine-NaCl 0.9% (ANYA-SYNEPHRINE) Given 07/16/2019 12:37 PM TELEHEALTH COORDINATOR 50 mcg injection Intravenous, Starting on Mon07/16/19 at 1237, Until Mon07/16/19 at 1409 propofol (DIPRIVAN) 10 mg/mL injection Given 07/16/2019 11:34 AM TELEHEALTH COORDINATOR 130 mg Intravenous, Starting on Mon07/16/19 at 1134, Until Mon07/16/19 at 1409 rocuronium (ZEMURON) injection Given 07/16/2019 12:13 PM TELEHEALTH COORDINATOR 30 mg Intravenous, Starting on Mon07/16/19 at 1213, Until Mon07/16/19 at 1409 ropivacaine 0.5% (NAROPIN) 5 MG/ML injec tion Given 07/16/2019 11:04 AM TELEHEALTH COORDINATOR 25 mL Starting on Mon07/16/19 at 1104, Until Mon07/16/19 at 1409 succinylcholine (QUELICIN) injection Given 07/16/2019 11:34 AM TELEHEALTH COORDINATOR 120 mg Intravenous, Starting on Mon07/16/19 at 1134, Until Mon07/16/19 at 1409 documented in this encounter Care Teams Mechanical Handyman Relationship Specialty Start Date End Date Lina Meléndez MD PCP - General Internal Medicine [address] [place] [address] documented as of this encounter
--- OUTSIDE RECORDS SUMMARY | 2022-05-27 17:48 | XMS_ITS | Encounter Summary ---
:1945 Author Organization [facility] Address [address], [place] [address] Care Team Providers Name Role Phone Coleman Dye MD Primary Care Provider Unavailable Reason for Visit Reason Comments Other Encounter Details Date Type Department Care Team Description 05/08/2007 Telephone Specialty Center [address] LPN Other Orthopedics [address] [place], [place] [address] Social History Tobacco Use Types Packs/Day Years Used Date Smoking Tobacco: Never Assessed Sex Assigned at Date Recorded Not on file documented as of this encounter Progress Notes Carolina Joyce RN - 05/08/2007 12:16 PM CST Phone Note filed by Carolina Joyce RN at 10/13/10819 Author: Carolina Joyce RN Service: (none) Author Type: Registered Nurse Filed: 10/13/10819 Note Time: 05/08/071215 Status: Signed Speech Therapist Technician: Carolina Joyce RN (Registered Nurse) Patient is going to PT at [facility] in [place], [place]. She requests referral be faxed on order form that is valid outside of [facility]. Please fax to [phone]. Att'n: Beau Houser. Patient's home phone [phone]. Created on 08May2007 12:16pm by CAROLINA JOYCE On 09May2007 9:08am IMAIN ARREOLA wrote: Done Acknowledged by IMANI ARREOLA on 9:08am L RIGGER documented in this encounter Plan of Treatment Not on filedocumented as of this encounter Visit Diagnoses Not on filedocumented in this encounter Care Teams Communications Tech Relationship Specialty Start Date End Date Coleman Dye MD PCP - General 09/27/1012/19 documented as of this encounter
--- OUTSIDE RECORDS SUMMARY | 2022-05-27 17:48 | XMS_ITS | Encounter Summary ---
:1945 Author Organization [facility] Address [address] [address] Care Team Providers Name Role Phone Coleman Dye MD Primary Care Provider Unavailable Encounter Details Date Type Department Care Team Description 04/20/2007 PN Conversion Only [place] ON [address] [place] [address] Social History Tobacco Use Types Packs/Day Years [...] 0000 Note Time: 06/01/07 0001 Status: Signed Railroad Auditor: Navneet Campos MD (Physician) NAME: MARYAM CORTEZ MR#: [id number] ACCT: VISIT: DICTATING CLINICIAN: NAVNEET CAMPOS MD JOB: [id number] LOC: 211 CLINIC PHONE CALL DATE OF [...] possible for her to get her from [place] prior to the time clinic closes today. I have made arrangements for her to come to the [facility] on Monday 06/04 at 9 a.m. I told her that if she has a noticeable worsening in her condition over the weekend that she should present to the [facility] Emergency Room as soon as possible. PRD:[id number] C: 06/02/07 15:38 DOCUMENT: [id number] CTOR OF SLOT OPERATIONS documented in this encounter Plan of Treatment Not on filedocumented as of this encounter Visit Diagnoses Not on filedocumented in this encounter Care Teams Net Solutions Architect Relationship Specialty Start Date End Date Coleman Dye MD PCP - General 09/27/1012/19 documented as of this encounter
--- OUTSIDE RECORDS SUMMARY | 2022-05-27 17:48 | XMS_ITS | Encounter Summary ---
:1945 Author Organization [facility] Address [address] [address] Care Team Providers Name Role Phone Coleman Dye MD Primary Care Provider Unavailable Reason for Visit Reason Comments Other Encounter Details Date Type Department Care Team Description 05/09/2007 Telephone Specialty Center [address] LPN Other Orthopedics [address] [place], [place] [address] Social History Tobacco Use Types Packs/Day Years Used Date Smoking Tobacco: Never Assessed Sex Assigned at Date Recorded Not on file documented as of this encounter Progress Notes Carolina Joyce RN - 05/09/2007 9:39 AM CST Phone Note filed by Carolina Joyce RN at 10/13/10823 Author: Carolina Joyce RN Service: (none) Author Type: Registered Nurse Filed: 10/13/10823 Note Time: 05/09/07938 Status: Signed Cream Maker: Carolina Joyce RN (Registered Nurse) Patient reports took TEDS off for several hours during the day, and leg really ballooned up in the calf and thigh. She reapplied the TEDs last night. Encouraged pt to wear them and to elevate leg when at rest. Home phone [phone]. Created on 09May2007 9:39am by CAROLINA JOYCE On 09May2007 11:09am IMANI ARREOLA wrote: Thank you Acknowledged by IMANI ARREOLA on 11:09am S WOOL BLANKET MACHINE FEEDER documented in this encounter Plan of Treatment Not on filedocumented as of this encounter Visit Diagnoses Not on filedocumented in this encounter Care Teams Records And Tape Recordings Engineer Relationship Specialty Start Date End Date Coleman Dye MD PCP - General 09/27/1012/19 documented as of this encounter
--- OUTSIDE RECORDS SUMMARY | 2022-05-27 17:48 | XMS_ITS | Encounter Summary ---
:1945 [facility] Address [address] [place] [address] Care Team Providers Name Role Phone Lina Meléndez MD Primary Care Provider Encounter Details Date Type Department Care Team Description 12/25/2018 Notes/Orders [place] Rheumatol sharmin Avila, [address] [facility] [place] [address] [address] [facility] [phone] [facility] N [address] (Wo rk) Social History Tobacco Use Types [...] on filedocumented in this encounter Care Teams Banking Center Manager Relationship Specialty Start Date End Date Lina Meléndez MD PCP - General Internal Medicine [address] [place] [address] documented as of this encounter
--- OUTSIDE RECORDS SUMMARY | 2022-05-27 17:48 | XMS_ITS | Encounter Summary ---
:1945 Author Organization [facility] Address [address] [place] [address] Care Team Providers Name Role Phone Lina Meléndez MD Primary Care Provider Reason for Visit Procedure/Equipment (Routine) - Incomplete Specialty Diagnoses / Procedures Referred By Contact Refer red To Contact Diagnoses Acute pain of left shoulder Syeda Colón, [place] [address] [place] [address] Referral ID Status Reason Start Date Expiration Date Visits V isits Requested Authorized [id number] Incomplete 07/10/2019 10/08/2020 1 1 Encounter Details Date Type Department Care Team Description 07/10/[address] Scan Syeda Colón, Acute pain of left Procedure [address] [place] [id number] Social History Tobacco Use Types Packs/Day Years [...] lef t Results for this IV CONT COIL ASSEMBLER shoulder procedure are i n the results section. documented in this encounter Results CT Shoulder Lt WO IV Cont (07/10/2019 2:31 PM COIL ASSEMBLER) Anatomical Region Laterality Modality Chest, Upper Extremity, Skeletal, Shoulder Computed Tomography Specimen (Source) Anatomical Collection Method Collection Time Re ceived Time Location / / Volume Laterality 07/10/2019 2:07 PM COIL ASSEMBLER Impressions 07/10/2019 3:08 PM COIL ASSEMBLER TECHNIQUE: ??Thin section axial scans were obtained [...] shoulder documented in this encounter Care Teams Envelope Machine Adjuster Relationship Specialty Start Date End Date Lina Meléndez MD PCP - General Internal Medicine 12/[address] [place] [address] documented as of this encounter
--- OUTSIDE RECORDS SUMMARY | 2022-05-27 17:48 | XMS_ITS | Encounter Summary ---
:1945 Author Organization [facility] Address [address], [place] [address] Care Team Providers Name Role Phone Coleman Dye MD Primary Care Provider Unavailable Encounter Details Date Type Department Care Team Description 10/25/2010 PN Conversion Only Specialty [facility] 3931 Navneet Rangel MD [facility] 3931 [facility] 3931 [facility] [address] [place] [phone] (Wo rk) Social History Tobacco Use Types Packs/Day Years Used Date Smoking Tobacco: Never Assessed Sex Assigned at Date Recorded Not on file documented as of this encounter Plan of Treatment Not on filedocumented as of this encounter Visit Diagnoses Not on filedocumented in this encounter Care Teams Corn Grinder Relationship Specialty Start Date End Date Coleman Dye MD PCP - General 09/27/1012/19 documented as of this encounter
--- OUTSIDE RECORDS SUMMARY | 2022-05-27 17:48 | XMS_ITS | Encounter Summary ---
:1945 [facility] Address [address] [place] [address] Care Team Providers Name Role Phone Coleman Dye MD Primary Care Provider Unavailable Encounter Details Date Type Department Care Team Description 05/15/2007 Office Visit [facility]ty [facility] 3931 Iwona Frank, ALTON [facility] 3931 [facility] 3931 [place] [address] [place] [address] Social History Tobacco Use Types Packs/Day Years Used Date Smoking Tobacco: Never Assessed Sex Assigned at Date Recorded Not on file documented as of this encounter Progress Notes Carlo Frank OA - 05/15/2007 12:01 AM CST Progress Notes signed by ALTON Stafford at 05/20/07 1839 Author: ALTON Stafford Service: (none) Author Type: ORTHOPAEDIC SUPERVISOR RICE MILLING, CERTIFIED Filed: 10/15/10 4200 Note Time: 05/15/07 0001 Status: Signed Adobe Flex Developer: ALTON Stafford (ORTHOPAEDIC SUPERVISOR RICE MILLING, CERTIFIED) NAME: MARYAM CORTEZ MR#: [id number] ACCT: [id number] VISIT: [id number] DICTATING CLINICIAN: CANDE Stafford JOB: [id number] LOC: 211 CLINIC PROGRESS NOTE DATE OF [...] before then, she will call our clinic. MRS:[id number] C: 05/16/07 14:10 DOCUMENT: [id number] EN IMPLEMENT MECHANIC documented in this encounter Plan of Treatment Not on filedocumented as of this encounter Visit Diagnoses Not on filedocumented in this encounter Care Teams Automotive Service Assistant Relationship Specialty Start Date End Date Coleman Dye MD PCP - General 09/27/1012/19 documented as of this encounter
--- OUTSIDE RECORDS SUMMARY | 2022-05-27 17:48 | XMS_ITS | Encounter Summary ---
:1945 Author Organization [facility] Address [address], [place] [address] Care Team Providers Name Role Phone Coleman Dye MD Primary Care Provider Unavailable Encounter Details Date Type Department Care Team Description 04/20/2007 Office Visit [facility] Navneet Campos MD [address] [facility] 3931 [place], [place] [address] [address] [place] [phone] (Wo rk) Social History Tobacco Use Types Packs/Day Years Used Date Smoking Tobacco: Never Assessed Sex Assigned at Date Recorded Not on file documented as of this encounter Progress Notes Navneet Campos MD - 04/20/2007 12:01 AM CDT Progress Notes signed by Navneet Campos MD at 04/23/07 5672 Author: Navneet Campos MD Service: (none) Author Type: Physician Filed: 10/15/10 5478 Note Time: 04/20/07 0001 Status: Signed Landfill Gas Technician: Navneet Campos MD (Physician) NAME: MARYAM CORTEZ MR#: [id number] ACCT: [id number] VISIT: [id number] DICTATING CLINICIAN: NAVNEET CAMPOS MD JOB: [id number] LOC: 311 CLINIC PROGRESS NOTE DATE OF [...] shows a 1+ effusion. She has diffuse, vike-pu-ixubwoxb joint line tenderness. She can flex to [...] sensory nerves. Will continue to monitor this. PRD:[id number] C: 04/21/07 11:17 DOCUMENT: [id number] documented in this encounter Plan of Treatment [...] large plantar calcaneal spur is also present. Yc/[id number] Dictating GIUSEPPE JENNINGS RADIOLOGIST Procedure Note Giuseppe Alves - 09/01/2016Formattin g of this note might be different from the original. Ankle appears intact. Subtalar joints ap pear normal. There are degenerative changes in the midfoot join ts. A moderately large plantar calcaneal spur is also present. Yc/313355 Dictating GIUSEPPE JENNINGS RADIOLOGIST Navneet Campos MD RAD GD XR Knee Lt 3 Views (04/20/2007 10:16 AM CDT) Anatomical Region Laterality Modality Lower Extremity, Knee Other Specimen (Source) Anatomical Location Collection Method / Collectio n Time Received Time / Laterality Volume Narrative 04/20/2007 10:16 AM CDT FINDINGS: ??There is moderate to advanced degenerative arthritis in the left knee with medial compartment na rrowing. [id number] Dictating NAVI BANERJEE RADIOLOGIST Procedure Note Navi Yost MD - 09/01/2016 FINDINGS: There is moderate to advanced degenerative arthritis in the left knee with medial compartment na rrowing. [id number] Dictating NAVI BANERJEE RADIOLOGIST Navneet Campos MD [...] evidence of hardware complication. ??No acute lesion. [id number]/erasto Dictating JAMEEL SAUCEDO Radiologist Procedure Note Jameel Ceballos MD - 09/01/2016For matting of this note might be different from the original. HISTORY: Pain. 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 No ev idence of hardware complication. No acute lesion. 577057/pamd Dictating JAMEEL SAUCEDO Radiologist Navneet Campos MD RAD GD documented in this encounter Visit Diagnoses Not on filedocumented in this encounter Care Teams Grinder And Honer Operator Automatic Relationship Specialty Start Date End Date Coleman Dye MD PCP - General 09/27/1012/19 documented as of this encounter
--- OUTSIDE RECORDS SUMMARY | 2022-05-27 17:48 | XMS_ITS | Encounter Summary ---
:1945 Author Organization [facility] Address [address] [place] [address] Care Team Providers Name Role Phone Coleman Dye MD Primary Care Provider Unavailable Reason for Visit Reason Comments Refill Encounter Details Date Type Department Care Team Description 05/31/2015 Refill [facility] Vee Bowman MD Refill [address] [place], [place] [address] [place] [address] [phone] (Wo rk) Social History Tobacco Use Types Packs/Day Years Used Date Smoking Tobacco: Never Assessed Sex Assigned at Date Recorded Not on file documented as of this encounter Nursing Notes Kaley Giles LPN - 06/02/2015 10:47 AM CST [facility] at [phone] and spoke to Estelle. Instructed Estelle that Dr. Barry requests these Rx requests be sent to her [place] office, because they are seen at [facility]. Estelle sent Rx request to [place]. RER CHEMICAL PROCESSING Vee Prado RN - 06/01/2015 9:33 AM CST LV None FV None ALEN, RN denied medication refill per protocol. Patient is unknown to our clinic. RER CHEMICAL PROCESSING documented in this encounter Plan of Treatment Not on filedocumented as of this encounter Visit Diagnoses Not on filedocumented in this encounter Care Teams Comber Fixer Relationship Specialty Start Date End Date Coleman Dye MD PCP - General 09/27/1012/19 documented as of this encounter
--- OUTSIDE RECORDS SUMMARY | 2022-05-27 17:48 | XMS_ITS | Encounter Summary ---
:1945 Author Organization [facility] Address [address] [place] [address] Care Team Providers Name Role Phone Coleman Dye MD Primary Care Provider Unavailable Reason for Visit Reason Comments Other Encounter Details Date Type Department Care Team Description 05/07/2007 Telephone Specialty Center 3931 Aure Ryo RN Other [facility] 3931 [place], [place] [address] Social History Tobacco Use Types Packs/Day Years Used Date Smoking Tobacco: Never Assessed Sex Assigned at Date Recorded Not on file documented as of this encounter Progress Notes Yuko Charles RN - 05/07/2007 3:15 PM CST Phone Note filed by Yuko Charles RN at 10/13/10814 Author: Yuko Charles RN Service: (none) Author Type: (none) Filed: 10/13/10814 Note Time: 05/07/071514 Status: Signed Recycling Center Operator: Boubacar Conversion Post-Op Call Treating Clinician:Dr.Paul Rangel Procedure & Date:L TKA 05/03/07 Pain Level:no pain Pain under control?:Yes Medication Refill?:None needed Incision Sx.,(red,drg,etc):Looks very good denies redness or drainage Temp:none Call back if:Pt given nurse line phone number to call if any questions or concerns Post op appt date:05/15/07 @ 1040 Call back number:[phone] Is it OK to leave a confidential message on this voicemail?:yes Created on 07May2007 3:15pm by YUKO CHARLES METRIST/PRACTICE OWNER documented in this encounter Plan of Treatment Not on filedocumented as of this encounter Visit Diagnoses Not on filedocumented in this encounter Care Teams Cleaning Technician Relationship Specialty Start Date End Date Coleman Dye MD PCP - General 09/27/1012/19 documented as of this encounter
--- OUTSIDE RECORDS SUMMARY | 2022-05-27 17:48 | XMS_ITS | Encounter Summary ---
:1945 Author [facility] Address [address] [place] [address] Care Team Providers Name Role Phone Lina Meléndez MD Primary Care Provider Reason for Visit Reason Comments Surgery Questions Encounter Details Date Type Department Care Team Description 07/10/2019 Telephone Specialty Center 3931 Leeann Rodriguez MD Surgery Questions [facility] 3931 [facility] 3931 [place] [address] [phone] Social History Tobacco Use Types Packs/Day Years Used Date Smoking Tobacco: Never Smokeless Tobacco: Never Alcohol Use Standard Drinks/Week Comments Yes 0 (1 standard drink = 0.6 oz pure alcoho l) Sex Assigned at Date Recorded Not on file documented as of this encounter Nursing Notes Jim Alford - 07/10/2019 4:37 PM CST Spoke with pt - surgery scheduled for 07/16/19 CONDITIONER Carolina Loco RN - 07/10/2019 4:08 PM CST Action: Return Call, Next Step: Schedule surgery Specific Request(s): 1. Please see notes below and call patient to schedule surgery. CONDITIONER Callie Das - 07/10/2019 4:06 PM CST Pt called back wanting to set up surgery with Dr. Rodriguez. CONDITIONER Edelmira Rodriguez MD - 07/10/2019 3:49 PM CST Was asked by Syeda Colón to review patient's x-rays-she has a comminuted [...] surgery this coming Monday, July 12 at [facility]. I also put in a case request and forwarded this to Jim Alford. Edelmira Rodriguez MD CONDITIONER documented in this encounter Plan of Treatment Not on filedocumented as of this encounter Visit Diagnoses Not on filedocumented in this encounter Care Teams Alliances Consultant Relationship Specialty Start Date End Date Lina Meléndez MD PCP - General Internal Medicine [address] [place] [address] documented as of this encounter
--- OUTSIDE RECORDS SUMMARY | 2022-05-27 17:48 | XMS_ITS | Encounter Summary ---
:1945 Author [facility] Address [address], [place] [address] Care Team Providers Name Role Phone Lina Meléndez MD Primary Care Provider Reason for Referral (Routine) - Incomplete Specialty Diagnoses / Procedures Referred By Contact Refer red To Contact Diagnoses Closed fracture of proximal end of left humerus, unspecified fracture morphology, initial encounter Edelmira Rodriguez MD Procedures Case Request OR - Orthopedic Surgery: OPEN REDUCTION INTERNAL FIXATION PROXIMAL HUMERUS FRACTURE 3931 [place], [place] [address] Referral ID Status Reason Start Date Expiration Date Visits V isits Requested Authorized [id number] Incomplete 07/10/2019 10/08/2020 1 1 E OILER Encounter Details Date Type Department Care Team Description 07/10/2019 Notes/Orders Specialty Center 3931 Edelmira Rodriguez C losed fracture of [facility] proximal end of left 3931 [facility]. 3931 [facility] merus, unspecified S. S fracture morphology, [place], [place] in itial encounter [phone] (Primary Dx) [phone] (Wo rk) Social History Tobacco Use Types [...] Primary documented in this encounter Care Teams Thermostat Repairer Relationship Specialty Start Date End Date Lina Meléndez MD PCP - General Internal Medicine [address] [place] [address] documented as of this encounter
--- OUTSIDE RECORDS SUMMARY | 2022-05-27 17:48 | XMS_ITS | Encounter Summary ---
:1945 Author Organization [facility] Address [address], [place] [address] Care Team Providers Name Role Phone Coleman Dye MD Primary Care Provider Unavailable Encounter Details Date Type Department Care Team Description 06/11/2004 Office Visit [facility] Navneet Campos MD 2000 [facility] 3931 [place], [place] [address] [address] [place] [address] (Wo rk) Social History Tobacco Use Types Packs/Day Years Used Date Smoking Tobacco: Never Assessed Sex Assigned at Date Recorded Not on file documented as of this encounter Progress Notes Navneet Campos MD - 06/11/2004 12:01 AM CST Progress Notes signed by Navneet Campos MD at 06/13/04 2017 Author: Navneet aCmpos MD Service: (none) Author Type: Physician Filed: 10/15/10 0206 Note Time: 06/11/04 0001 Status: Signed Detective Investigator: Navneet Campos MD (Physician) NAME: MARYAM CORTEZ MR: [id number] ACCT: [id number] VISIT: [id number] DICTATING CLINICIAN: NAVNEET CAMPOS MD JOB: [id number] CLINIC PROGRESS NOTE DATE OF VISIT: 06/11/2004 [...] June and that she should call our reservations clerkcall center specialist if that were to occur. Certainly at this point there is no clinical evidence of any problem with her knee. PRD:[id number] C: 06/11/04 12:20 DOCUMENT: [id number] NSION COURSE COORDINATOR documented in this encounter Plan of Treatment Not on filedocumented as of this encounter Visit Diagnoses Not on filedocumented in this encounter Care Teams Engraver Block Relationship Specialty Start Date End Date Coleman Dye MD PCP - General 09/27/1012/19 documented as of this encounter
--- OUTSIDE RECORDS SUMMARY | 2022-05-27 17:48 | XMS_ITS | Encounter Summary ---
:1945 Author Organization [facility] Address [address], [place] [address] Care Team Providers Name Role Phone Coleman Dye MD Primary Care Provider Unavailable Encounter Details Date Type Department Care Team Description 06/04/2007 Office Visit Specialty Center 3931 Rodrigo Campos MD [facility] [address] [facility] [address] [place] [address] [place] [address] [phone] (Wo rk) Social History Tobacco Use Types [...] 2333 Note Time: 06/04/07 0001 Status: Signed Dietary Aide Teacher: Nvaneet Campos MD (Physician) NAME: MARYAM CORTEZ MR#: [id number] ACCT: [id number] VISIT: [id number] DICTATING CLINICIAN: NAVNEET CAMPOS MD JOB: [id number] LOC: 211 CLINIC PROGRESS NOTE DATE OF [...] if she has any fever above 100.0. PRD:[id number] C: 06/05/07 09:50 DOCUMENT: [id number] Y HAND documented in this encounter Plan of Treatment Not on filedocumented as of this encounter Visit Diagnoses Not on filedocumented in this encounter Care Teams Stacker Straightener Relationship Specialty Start Date End Date Coleman Dye MD PCP - General 09/27/1012/19 documented as of this encounter
--- OUTSIDE RECORDS SUMMARY | 2022-05-27 17:48 | XMS_ITS | Encounter Summary ---
:1945 Author Organization [facility] Address [address] [place] [address] Care Team Providers Name Role Phone Coleman Dye MD Primary Care Provider Unavailable Encounter Details Date Type Department Care Team Description 08/29/2013 Orders Only HP Claims MD Jacquelyn Security Contact Bill [address] [place] [address] Mailstop [id number] [phone] (Wo rk) Social History Tobacco Use Types Packs/Day Years Used Date Smoking Tobacco: Never Assessed Sex Assigned at Date Recorded Not on file documented as of this encounter Plan of Treatment Not on filedocumented as of this encounter Visit Diagnoses Not on filedocumented in this encounter Care Teams Workforce Planning Analyst Relationship Specialty Start Date End Date Coleman Dye MD PCP - General 09/27/1012/19 documented as of this encounter
--- OUTSIDE RECORDS SUMMARY | 2022-05-27 17:48 | XMS_ITS | Encounter Summary ---
:1945 Author Organization [facility] Address [address] [place] [address] Care Team Providers Name Role Phone Lina Meléndez MD Primary Care Provider Reason for Referral Procedure/Equipment (Routine) - Incomplete Specialty Diagnoses / Procedures Referred By Contact Refer red To Contact Diagnoses Acute pain of left shoulder Syeda Colón [place]-C [place] [address] [place] [address] Referral ID Status Reason Start Date Expiration Date Visits V isits Requested Authorized [id number] Incomplete 07/10/2019 10/08/2020 1 1 OR DIRECTOR Procedure/Equipment (Routine) - Incomplete Specialty Diagnoses / Procedures Referred By Contact Refer red To Contact Diagnoses Acute pain of left shoulder Syeda Colón PA-C Procedures XR Shoulder Lt [address] [place] [address] Referral ID Status Reason Start Date Expiration Date Visits V isits Requested Authorized [id number] Incomplete 07/10/2019 10/08/2020 1 1 OR DIRECTOR Reason for Visit Reason Comments SHOULDER PAIN Encounter Details Date Type Department Care Team Description 07/10/2019 Office Visit Syeda Long, Acute pain of left shoulder (Primary Dx); Orthopedics PAOsman Other closed displaced fracture of proxi mal end of left humerus, initial encounter [address] [facility] [address] [place] [address] [place], [place] [phone] (Wo rk) Social History Tobacco Use Types [...] was originally seen at a facility in [place] where an x-ray was done,a fracture of [...] Sincere SMITH Addl Instr:Indicated for: Acid Reflux (Patient not taking: Reported on 12/25/2018) 90 3 ??? magnesium oxide (MAG-OX) 400 MG tablet Take 800 mg by mouth. ??? metFORMIN (AKA GLUCOPHAGE) 500 MG tablet Take 2 tablets by mouth 2 times daily. LW Comment:info per pt, ord Eddie SMITH Addl [...] her questions were answered to her satifaction. OR DIRECTOR documented in this encounter Plan of Treatment Not on filedocumented as of this encounter Procedures Procedure Name Priority Date/Time Associated Diagnosis Comme nts XR SHOULDER LT 2 Routine 07/10/2019 12:20 PM Acute pain of lef t Results for this VIEWS SENIOR DIRECTOR shoulder procedure are i n the results section. documented in this encounter Results CT Shoulder Lt WO IV Cont (07/10/2019 2:31 PM SENIOR DIRECTOR) Anatomical Region Laterality Modality Chest, Upper Extremity, Skeletal, Shoulder Computed Tomography Specimen (Source) Anatomical Collection Method Collection Time Re ceived Time Location / / Volume Laterality 07/10/2019 2:07 PM SENIOR DIRECTOR Impressions 07/10/2019 3:08 PM SENIOR DIRECTOR TECHNIQUE: ??Thin section axial scans were obtained [...] Shoulder Lt 2 Views (07/10/2019 12:20 PM SENIOR DIRECTOR) Anatomical Region Laterality Modality Upper Extremity, Shoulder Digital Radiog alexandra Specimen (Source) Anatomical Collection Method Collection Time Re ceived Time Location / / Volume Laterality 07/10/2019 12:00 PM SENIOR DIRECTOR Impressions 07/10/2019 12:49 PM SENIOR DIRECTOR FINDINGS: ??There are degenerative masters es of [...] shoulder documented in this encounter Care Teams Component Prep Operator Relationship Specialty Start Date End Date Lina Meléndez MD PCP - General Internal Medicine [address] [place] [address] documented as of this encounter
--- OUTSIDE RECORDS SUMMARY | 2022-05-27 17:48 | XMS_ITS | Encounter Summary ---
:1945 Author Organization [facility] Address [address], [place] [address] Care Team Providers Name Role Phone Coleman Dye MD Primary Care Provider Unavailable Encounter Details Date Type Department Care Team Description 03/03/2004 Office Visit Specialty Center 3931 Rodrigo Campos MD [facility] 3931 [facility] 3931 [facility] [address] [place] [address] [phone] (Wo rk) Social History Tobacco Use Types [...] 0019 Note Time: 03/03/04 0001 Status: Signed Reel Operator: Navneet Campos MD (Physician) NAME: MARYAM CORTEZ MR: [id number] ACCT: [id number] VISIT: [id number] DICTATING CLINICIAN: NAVNEET CAMPOS MD JOB: [id number] CLINIC PROGRESS NOTE DATE OF VISIT: 03/03/2004 [...] it she is to call me immediately. PRD:[id number] C: 03/03/04 17:04 DOCUMENT: [id number] documented in this encounter Plan of Treatment Not on filedocumented as of this encounter Visit Diagnoses Not on filedocumented in this encounter Care Teams Manager Business Relationship Specialty Start Date End Date Coleman Dye MD PCP - General 09/27/1012/19 documented as of this encounter
--- OUTSIDE RECORDS SUMMARY | 2022-05-27 17:48 | XMS_ITS | Encounter Summary ---
:1945 Author Organization [facility] Address [address], [place] [address] Care Team Providers Name Role Phone Coleman Dye MD Primary Care Provider Unavailable Encounter Details Date Type Department Care Team Description 02/10/2004 Office Visit Specialty Center 3931 Iwona Frank rk R, OA [facility] 3931 [facility] 3931 [place] [address] [place], [place] [facility] [phone] Social History Tobacco Use Types Packs/Day Years [...] 0001 Status: Signed NAME: MARYAM CORTEZ MR: [id number] ACCT: [id number] VISIT: [id number] DICTATING CLINICIAN: JOHN BUTTS MD JOB: [id number] CLINIC PHONE CALL DATE OF PHONE CALL: [...] continue on her Lovenox as previously recommended. GNL:[id number] C: 02/12/04 15:17 DOCUMENT: [id number] Carlo Frank OA - 02/10/2004 12:01 AM CDT Progress Notes signed by ALTON Stafford at 02/12/04 1028 Author: ALTON Stafford Service: (none) Author Type: ORTHOPAEDIC INVENTORY CONTROL CLERK, CERTIFIED Filed: 10/14/10 2358 Note Time: 02/10/04 0001 Status: Signed Nurses Director: ALTON Stafford (ORTHOPAEDIC INVENTORY CONTROL CLERK, CERTIFIED) NAME: MARYAM CORTEZ MR: [id number] ACCT: [id number] VISIT: [id number] DICTATING CLINICIAN: MARTIR STAFFORD JOB: [id number] CLINIC PROGRESS NOTE DATE OF VISIT: 02/10/2004 [...] will call our clinic. PLAN: See assessment. MRS:[id number] C: 02/10/04 18:53 DOCUMENT: [id number] documented in this encounter Plan of Treatment Not on filedocumented as of this encounter Visit Diagnoses Not on filedocumented in this encounter Care Teams Tractor Trailer Driver Relationship Specialty Start Date End Date Coleman Dye MD PCP - General 09/27/1012/19 documented as of this encounter
--- OUTSIDE RECORDS SUMMARY | 2022-05-27 17:48 | XMS_ITS | Encounter Summary ---
:1945 Author Organization Formerly [facility] Address [address], [place] [address] Care Team Providers Name Role Phone Coleman Dye MD Primary Care Provider Unavailable Encounter Details Date Type Department Care Team Description 07/27/2007 Office Visit [facility] Navneet Campos MD [address] [facility] [address] [place], [place] [address] [place] [address] (Wo rk) Social History Tobacco [...] 0040 Note Time: 07/27/07 0001 Status: Signed Stallion Manager: Navneet Campos MD (Physician) NAME: MARYAM CORTEZ MR#: [id number] ACCT: [id number] VISIT: [id number] DICTATING CLINICIAN: NAVNEET CAMPOS MD JOB: [id number] LOC: 311 CLINIC PROGRESS NOTE DATE OF [...] x-rays of both knees at that time. PRD:[id number] C: 07/28/07 11:31 DOCUMENT: [id number] RVISOR FUR FLOOR WORKER documented in this encounter Plan of Treatment Not on filedocumented as of this encounter Visit Diagnoses Not on filedocumented in this encounter Care Teams Blade Groover Relationship Specialty Start Date End Date Coleman Dye MD PCP - General 09/27/1012/19 documented as of this encounter
--- OUTSIDE RECORDS SUMMARY | 2022-05-27 17:48 | XMS_ITS | Encounter Summary ---
:1945 Author Organization [facility] Address [address], [place] [address] Care Team Providers Name Role Phone Lina Meléndez MD Primary Care Provider Reason for Visit Procedure/Equipment (Routine) - Incomplete Specialty Diagnoses / Procedures Referred By Contact Refer red To Contact Diagnoses Acute pain of left shoulder Syeda Colón, TOMA Procedures XR Shoulder Lt 2 Views [address] [place] [address] Referral ID Status Reason Start Date Expiration Date Visits V isits Requested Authorized [id number] Incomplete 07/10/2019 10/08/2020 1 1 Encounter Details Date Type Department Care Team Description 07/10/2019 Ancillary Procedure [facility] Syeda Colón, [address] [place] [address] [phone] [place], [place] [address] (Wo rk) Social History [...] of lef t Results for this VIEWS [facility] RADAR OPERATOR/NAVIGATOR shoulder procedure are i n the results section. documented in this encounter Results XR Shoulder Lt 2 Views (07/10/2019 12:20 PM [facility] RADAR OPERATOR/NAVIGATOR) Anatomical Region Laterality Modality Upper Extremity, Shoulder Digital Radiog alexandra Specimen (Source) Anatomical Collection Method Collection Time Re ceived Time Location / / Volume Laterality 07/10/2019 12:00 PM [facility] RADAR OPERATOR/NAVIGATOR Impressions 07/10/2019 12:49 PM [facility] RADAR OPERATOR/NAVIGATOR FINDINGS: ??There are degenerative masters es of [...] on filedocumented in this encounter Care Teams Paper Twister Relationship Specialty Start Date End Date Lina Meléndez MD PCP - General Internal Medicine [address] [place] [address] documented as of this encounter
--- OUTSIDE RECORDS SUMMARY | 2022-05-27 17:48 | XMS_ITS | Encounter Summary ---
:1945 Author Organization [facility] Address [address] [place] [address] Care Team Providers Name Role Phone Coleman Dye MD Primary Care Provider Unavailable Encounter Details Date Type Department Care Team Description 10/11/2012 Orders Only [facility] Claims MD Jacquelyn Security Contact Bill [address] [place] [address] Mailstop [id number] [phone] (Wo rk) Social History Tobacco Use Types Packs/Day Years Used Date Smoking Tobacco: Never Assessed Sex Assigned at Date Recorded Not on file documented as of this encounter Plan of Treatment Not on filedocumented as of this encounter Visit Diagnoses Not on filedocumented in this encounter Care Teams Product Manager Relationship Specialty Start Date End Date Coleman Dye MD PCP - General 09/27/1012/19 documented as of this encounter
--- OUTSIDE RECORDS SUMMARY | 2022-05-27 17:48 | XMS_ITS | Encounter Summary ---
:1945 Author Organization Formerly [facility] Address [address], [place] [address] Care Team Providers Name Role Phone Coleman Dye MD Primary Care Provider Unavailable Encounter Details Date Type Department Care Team Description 09/14/2004 PN Conversion Only [place] [facility] [place] [address] [place] [address] Social History Tobacco Use Types Packs/Day Years Used Date Smoking Tobacco: Never Assessed Sex Assigned at Date Recorded Not on file documented as of this encounter Plan of Treatment Not on filedocumented as of this encounter Visit Diagnoses Not on filedocumented in this encounter Care Teams Heavy Cleaner Relationship Specialty Start Date End Date Coleman Dye MD PCP - General 09/27/1012/19 documented as of this encounter
--- OUTSIDE RECORDS SUMMARY | 2022-05-27 17:48 | XMS_ITS | Encounter Summary ---
:1945 Author Organization Formerly [facility] Address [address], [place] [address] Care Team Providers Name Role Phone Coleman Dye MD Primary Care Provider Unavailable Encounter Details Date Type Department Care Team Description 08/27/2004 Office Visit [facility] Navneet Campos MD [address] [facility] [address] [place], [place] [address] [place] [address] (Wo rk) Social History Tobacco [...] 0333 Note Time: 08/27/04 0001 Status: Signed Shoe Stock Associate: Navneet Campos MD (Physician) NAME: MARYAM CORTEZ MR: [id number] ACCT: [id number] VISIT: [id number] DICTATING CLINICIAN: NAVNEET CAMPOS MD JOB: [id number] CLINIC PROGRESS NOTE DATE OF VISIT: 08/27/2004 [...] arthroplasty. On the left, she has near ybaz-[id number]-batc appearance of the medial joint space with [...] in for a series of Hyalgan injections. PRD:[id number] C: 08/28/04 18:01 DOCUMENT: [id number] F RISK OFFICER documented in this encounter Plan of Treatment Not on filedocumented as of this encounter Procedures Procedure Name Priority Date/Time Associated Diagnosis Comme nts XR KNEE RT 3 VIEWS Routine 08/27/2004 1:09 PM Res ults for this CHIEF RISK OFFICER procedure are i n the results section. XR KNEE LT 3 VIEWS Routine 08/27/2004 1:08 PM Res ults for this CHIEF RISK OFFICER procedure are i n the results section. documented in this encounter Results XR Knee Rt 3 Views (08/27/2004 1:09 PM CHIEF RISK OFFICER) Anatomical Region Laterality Modality Lower Extremity, Knee Other Specimen (Source) Anatomical Location Collection Method / Collectio n Time Received Time / Laterality Volume Narrative 08/27/2004 1:09 PM CHIEF RISK OFFICER Upright AP, lateral, and sunrise views demonstrate a total knee arthroplasty. ??Relationship of the pros theses to the distal femur, proximal tibia, and patella are satisfac tory and unchanged when compared to the study of 02/02/04. [facility]/ [id number] Dictating LUIS GRIFFIN RADIOLOGIST Procedure Note Luis Fuentes - 09/01/2016 Upright AP, lateral, and sunrise views d emonstrate a total knee arthroplasty. Relationship of the prosth eses to the distal femur, proximal tibia, and patella are satisfac tory and unchanged when compared to the study of 02/02/04. 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 [id number] Dictating LUIS GRIFFIN RADIOLOGIST Navneet Campos MD RAD GD documented in this encounter Visit Diagnoses Not on filedocumented in this encounter Care Teams Washer Engineer Relationship Specialty Start Date End Date Coleman Dye MD PCP - General 09/27/1012/19 documented as of this encounter
--- OUTSIDE RECORDS SUMMARY | 2022-05-27 17:48 | XMS_ITS | Encounter Summary ---
:1945 Author Organization [facility] Address [address] [place] [address] Care Team Providers Name Role Phone Lina Meléndez MD Primary Care Provider Reason for Visit Reason Comments Refill Encounter Details Date Type Department Care Team Description 07/12/2019 [facility] [address] Edelmira Lopez MD [facility] [id number] [place] [address] [place] [address] [phone] Social History Tobacco Use Types Packs/Day Years Used Date Smoking Tobacco: Never Smokeless Tobacco: Never Alcohol Use Standard Drinks/Week Comments Yes 0 (1 standard drink = 0.6 oz pure alcoho l) Sex Assigned at Date Recorded Not on file documented as of this encounter Nursing Notes Camryn Nieves LPN - 07/12/2019 4:30 PM CST Pt notified rx sent to Pharmacy CAID PLAN COMPLIANCE DIRECTOR Camryn Nieves LPN - 07/12/2019 10:35 AM [...] Center 07/31/2019 1:00 PM Gabriela Lopez RN, PHONE MANAGER KEYBOARDING CLERK P3931 ORTHO PN 3931 08/28/2019 2:15 PM Edelmira Rodriguez MD P3931 ORTHO PN 3931 CAID PLAN COMPLIANCE DIRECTOR Hanh Hernandez - 07/12/2019 10:20 AM CST [...] the counter medications? no Pharmacy (if applicable): [id number] - [place], [place] - [address] [place] [address] Comments: Since the surgery was originally scheduled for 07/12/19 she will run out of meds by Monday before surgery 07/16/19. CAID PLAN COMPLIANCE DIRECTOR documented in this encounter Plan of Treatment Not on filedocumented as of this encounter Visit Diagnoses Diagnosis Acute pain of left shoulder Other closed displaced fracture of proxi mal end of left humerus, initial encounter documented in this encounter Care Teams Associate Theatre Professor Relationship Specialty Start Date End Date Lina Meléndez MD PCP - General Internal Medicine [address] [place] [address] documented as of this encounter
--- OUTSIDE RECORDS SUMMARY | 2022-05-27 17:48 | XMS_ITS | Encounter Summary ---
:1945 Author Organization [facility] Address [address] [place] [address] Care Team Providers Name Role Phone Unassigned, Provider Primary Care Provider Unavailable Encounter Details Date Type Department Care Team Description 05/03/2007 - Hospital Encounter Church Navneet Campos MD [address] [facility] [address] [place] [phone] 05/06/2007 [id number]-Dedov[facility]-Eedhd Navneet Campos MD [address] [facility] [address] [place] [phone] radha [address] [facility] [place] [address] Social History Tobacco Use Types Packs/Day Years Used Date Smoking Tobacco: Never Assessed Sex Assigned at Date Recorded Not on file documented as of this encounter Last Filed Vital Signs Vital Sign Reading Time Taken Comments Blood Pressure 110/70 05/06/2007 7:00 AM APIGEE DEVELOPER Pulse 95 05/06/2007 7:00 AM APIGEE DEVELOPER Temperature 36.2 ??C (97.2 ??F) 05/06/2007 7:00 AM ORAL C: 9 7.2 F APIGEE DEVELOPER Respiratory Rate 16 05/06/2007 7:00 AM APIGEE DEVELOPER Oxygen Saturation 98% 05/05/2007 11:20 PM APIGEE DEVELOPER Inhaled Oxygen Concentration - - Weight - - Height - - Body Mass Index - - documented in this encounter Discharge Summaries Duke Chin MD - 05/06/2007 12:01 AM CST Discharge Summaries signed by Duke Chin MD at 05/08/07 1152 Author: Duke Chin MD Service: (none) Author Type: Physician Filed: 10/15/10 3959 Note Time: 05/06/07 1039 Status: Signed Restrictive Preparation Operator: Duke Chin MD (Physician) NAME: MARYAM CRISOSTOMO MR#: [id number] ACCT: [id number] AUTHENTICATING CLINICIAN: DUKE CHIN MD JOB: [id number] LOC: 1 HOSPITAL DISCHARGE SUMMARY DATE OF [...] CONDITION ON DISCHARGE/INSTRUCTIONS: CC: [facility] COREY [facility] SK:[id number] C: 05/08/07 10:59 DOCUMENT: [id number] EE DEVELOPER Alisa Parikh MD - 05/06/2007 12:01 AM CST Discharge Summaries signed by Alisa Parikh MD at 05/09/07 1361 Author: Alisa Parikh MD Service: (none) Author Type: Physician Filed: 10/15/10 2257 Note Time: 05/06/07854 Status: Signed Restrictive Preparation Operator: Alisa Parikh MD (Physician) NAME: MARYAM CRISOSTOMO MR#: [id number] ACCT: [id number] AUTHENTICATING CLINICIAN: ALISA PARIKH MD JOB: [id number] LOC: 1 HOSPITAL DISCHARGE SUMMARY DATE OF [...] normal vital signs throughout her hospital course. TECHNICAL APPLICATIONS SCIENTIST was discontinued on postoperative day #2. IVs [...] was given as well. No further instructions. MRW:[id number] C: 05/08/07 10:03 DOCUMENT: [id number] EE DEVELOPER documented in this encounter Medications at Time [...] hour release tablet Comment:info per pt, Dr.T Ambar SMITH Addl Instr:Do not cut/crush/chew. Indicated for: Diabetes [...] Service: (none) Author Type: Physician Filed: 10/15/10 4980 Note Time: 05/03/07 1700 Status: Signed Restrictive Preparation Operator: Navneet Campos MD (Physician) NAME: MARYAM CIRSOSTOMO MR#: [id number] ACCT: [id number] AUTHENTICATING CLINICIAN: NAVNEET CAMPOS MD JOB: [id number] LOC: 1 OPERATIVE REPORT : 1945 DATE [...] mm asymmetric patella. SURGEON: NAVNEET CAMPOS MD ECONOMIC DEVELOPMENT DIRECTOR: CANDE Stafford ANESTHESIA: Subarachnoid block, plus femoral [...] the postanesthesia recovery area in satisfactory condition. PRD:[id number] C: 05/04/07 05:38 DOCUMENT: [id number] EE DEVELOPER documented in this encounter Miscellaneous Notes Miscellaneous [...] Date Principal: TOTAL KNEE REPLACEMENT ALISA PARIKH [id number] 81.54 Provider2: Provider3: ANNE PICKENS EE DEVELOPER documented in this encounter Plan of Treatment Not on filedocumented as of this encounter Procedures Procedure Name Priority Date/Time Associated Comments Diagnosis BEDSIDE GLUCOSE Routine 05/06/2007 11:51 Results for this MONITOR POCT AM APIGEE DEVELOPER procedure are i n the results section. BEDSIDE GLUCOSE Routine 05/06/2007 7:03 AM Result s for this MONITOR POCT APIGEE DEVELOPER procedure are i n the results section. BEDSIDE GLUCOSE Routine 05/05/2007 9:37 PM Result s for this MONITOR POCT APIGEE DEVELOPER procedure are i n the results section. BEDSIDE GLUCOSE Routine 05/05/2007 5:09 PM Result s for this MONITOR POCT APIGEE DEVELOPER procedure are i n the results section. BEDSIDE GLUCOSE Routine 05/05/2007 12:04 Results for this MONITOR POCT PM APIGEE DEVELOPER procedure are i n the results section. BEDSIDE GLUCOSE Routine 05/05/2007 7:31 AM Result s for this MONITOR POCT APIGEE DEVELOPER procedure are i n the results section. ELECTROLYTES (NA, K, Routine 05/05/2007 6:50 AM R esults for this CL, BICARB) APIGEE DEVELOPER procedure are i n the results section. CREATININE / GFR Routine 05/05/2007 6:50 AM Resul ts for this APIGEE DEVELOPER procedure are i n the results section. HEMOGLOBIN, BLOOD Routine 05/05/2007 6:50 AM Resu lts for this APIGEE DEVELOPER procedure are i n the results section. BUN Routine 05/05/2007 6:50 AM Results f or this APIGEE DEVELOPER procedure are i n the results section. BEDSIDE GLUCOSE Routine 05/04/2007 9:57 PM Result s for this MONITOR POCT APIGEE DEVELOPER procedure are i n the results section. BEDSIDE GLUCOSE Routine 05/04/2007 4:51 PM Result s for this MONITOR POCT APIGEE DEVELOPER procedure are i n the results section. BEDSIDE GLUCOSE Routine 05/04/2007 11:08 Results for this MONITOR POCT AM APIGEE DEVELOPER procedure are i n the results section. HEMOGLOBIN, BLOOD Routine 05/04/2007 7:35 AM Resu lts for this APIGEE DEVELOPER procedure are i n the results section. BEDSIDE GLUCOSE Routine 05/04/2007 6:51 AM Result s for this MONITOR POCT APIGEE DEVELOPER procedure are i n the results section. BEDSIDE GLUCOSE Routine 05/03/2007 9:54 PM Result s for this MONITOR POCT APIGEE DEVELOPER procedure are i n the results section. XR KNEE LT AP AND Routine 05/03/2007 5:26 PM Resu lts for this LATERAL APIGEE DEVELOPER procedure are i n the results section. BEDSIDE GLUCOSE Routine 05/03/2007 5:13 PM Result s for this MONITOR POCT APIGEE DEVELOPER procedure are i n the results section. BEDSIDE GLUCOSE Routine 05/03/2007 2:52 PM Result s for this MONITOR POCT APIGEE DEVELOPER procedure are i n the results section. BEDSIDE GLUCOSE Routine 05/03/2007 11:58 Results for this MONITOR POCT AM APIGEE DEVELOPER procedure are i n the results section. MRSA CULTURE Routine 05/03/2007 11:30 Results for this AM APIGEE DEVELOPER procedure are i n the results section. documented in this encounter Results Bedside Glucose Monitor (05/06/2007 11:51 AM APIGEE DEVELOPER) athologist Signature Bedside Blood 126 mg/dL HP CONVERSION Glucose Test Blood Glucose * No normal HP CONVERSION Screen, range Comment 1 Blood Glucose * No normal HP CONVERSION Screen, range Comment 2 Blood Glucose * No normal HP CONVERSION Screen, range Comment 3 Specimen (Source) Anatomical Collection Method Collection Time Re ceived Time Location / / Volume Laterality 05/06/2007 11:51 AM APIGEE DEVELOPER Navneet Campos MD LAB_1 Performing Organization Address City/State/ZIP Code Phon e Number HP CONVERSION Bedside Glucose Monitor (05/06/2007 7:03 AM APIGEE DEVELOPER) athologist Signature Bedside Blood 181 mg/dL HP CONVERSION Glucose Test Blood Glucose * No normal HP CONVERSION Screen, range Comment 1 Blood Glucose * No normal HP CONVERSION Screen, range Comment 2 Blood Glucose * No normal HP CONVERSION Screen, range Comment 3 Specimen (Source) Anatomical Collection Method Collection Time Re ceived Time Location / / Volume Laterality 05/06/2007 7:03 AM APIGEE DEVELOPER Navneet Campos MD LAB_1 Performing Organization Address City/State/ZIP Code Phon e Number HP CONVERSION Bedside Glucose Monitor (05/05/2007 9:37 PM APIGEE DEVELOPER) P athologist Signature Bedside Blood 131 mg/dL HP CONVERSION Glucose Test Blood Glucose * No normal HP CONVERSION Screen, range Comment 1 Blood Glucose * No normal HP CONVERSION Screen, range Comment 2 Blood Glucose * No normal HP CONVERSION Screen, range Comment 3 Specimen (Source) Anatomical Collection Method Collection Time Re ceived Time Location / / Volume Laterality 05/05/2007 9:37 PM APIGEE DEVELOPER Navneet Campos MD LAB_1 Performing Organization Address City/State/ZIP Code Phon e Number HP CONVERSION Bedside Glucose Monitor (05/05/2007 5:09 PM APIGEE DEVELOPER) athologist Signature Bedside Blood 210 mg/dL HP CONVERSION Glucose Test Blood Glucose * No normal HP CONVERSION Screen, range Comment 1 Blood Glucose * No normal HP CONVERSION Screen, range Comment 2 Blood Glucose * No normal HP CONVERSION Screen, range Comment 3 Specimen (Source) Anatomical Collection Method Collection Time Re ceived Time Location / / Volume Laterality 05/05/2007 5:09 PM APIGEE DEVELOPER Navneet Campos MD LAB_1 Performing Organization Address City/State/ZIP Code Phon e Number HP CONVERSION Bedside Glucose Monitor (05/05/2007 12:04 PM APIGEE DEVELOPER) athologist Signature Bedside Blood 179 mg/dL HP CONVERSION Glucose Test Blood Glucose * No normal HP CONVERSION Screen, range Comment 1 Blood Glucose * No normal HP CONVERSION Screen, range Comment 2 Blood Glucose * No normal HP CONVERSION Screen, range Comment 3 Specimen (Source) Anatomical Collection Method Collection Time Re ceived Time Location / / Volume Laterality 05/05/2007 12:04 PM APIGEE DEVELOPER Navneet Campos MD LAB_1 Performing Organization Address City/State/ZIP Code Phon e Number HP CONVERSION Bedside Glucose Monitor (05/05/2007 7:31 AM APIGEE DEVELOPER) athologist Signature Bedside Blood 245 mg/dL HP CONVERSION Glucose Test Blood Glucose * No normal HP CONVERSION Screen, range Comment 1 Blood Glucose * No normal HP CONVERSION Screen, range Comment 2 Blood Glucose * No normal HP CONVERSION Screen, range Comment 3 Specimen (Source) Anatomical Collection Method Collection Time Re ceived Time Location / / Volume Laterality 05/05/2007 7:31 AM APIGEE DEVELOPER Navneet Campos MD LAB_1 Performing Organization Address City/State/ZIP Code Phon e Number HP CONVERSION (ABNORMAL) Hemoglobin, Blood (05/05/2007 6:50 AM APIGEE DEVELOPER) athologist Signature Hemoglobin 8.5 (L) 11.8 - 15.5 HP CONVERSION gm/dL Specimen (Source) Anatomical Collection Method Collection Time Re ceived Time Location / / Volume Laterality 05/05/2007 6:50 AM APIGEE DEVELOPER Navneet Campos MD LAB_1 Performing Organization Address City/State/ZIP Code Phon e Number HP CONVERSION (ABNORMAL) Electrolytes (NA, K, CL, Bicarb) (05/05/2007 6:50 AM APIGEE DEVELOPER) athologist Signature Sodium 135 (L) 137 - 147 HP CONVERSION mEq/L Potassium 4.2 3.5 - 5.2 HP CONVERSION mEq/L Chloride 104 98 - 110 HP CONVERSION mEq/L Bicarbonate 29 23 - 33 HP CONVERSION mmol/L Specimen (Source) Anatomical Collection Method Collection Time Re ceived Time Location / / Volume Laterality 05/05/2007 6:50 AM APIGEE DEVELOPER Lucy Odell MD LAB_1 Performing Organization Address City/[facility] Code Phon e Number HP CONVERSION BUN (05/05/2007 6:50 AM APIGEE DEVELOPER) athologist Signature Blood Urea 14 5 - 26 HP CONVERSION Nitrogen mg/dL Specimen (Source) Anatomical Collection Method Collection Time Re ceived Time Location / / Volume Laterality 05/05/2007 6:50 AM APIGEE DEVELOPER Lucy Odell MD LAB_1 Performing Organization Address City/[facility]/ZIP Code Phon e Number HP CONVERSION Creatinine / GFR (05/05/2007 6:50 AM APIGEE DEVELOPER) athologist Signature Creatinine 0.7 0.4 - 1.3 HP CONVERSION Serum mg/dL Est GFR >60 >60 HP CONVERSION Am Est GFR Non-Afr >60 >60 HP CONVERSION Am Comment: -Turkmen and Azm-Dukwdkd-Kvzbwsy n reference range units: mL/min/1.73m2 Normal>60, moderate decrease 30 - 59, se terri decrease 15 - 29, renal failure <15 mL/min/1.73 m2 Specimen (Source) Anatomical Collection Method Collection Time Re ceived Time Location / / Volume Laterality 05/05/2007 6:50 AM APIGEE DEVELOPER Lucy Odell MD LAB_1 Performing Organization Address City/[facility] Phon e Number HP CONVERSION Bedside Glucose Monitor (05/04/2007 9:57 PM APIGEE DEVELOPER) athologist Signature Bedside Blood 235 mg/dL HP CONVERSION Glucose Test Blood Glucose * No normal HP CONVERSION Screen, range Comment 1 Blood Glucose * No normal HP CONVERSION Screen, range Comment 2 Blood Glucose * No normal HP CONVERSION Screen, range Comment 3 Specimen (Source) Anatomical Collection Method Collection Time Re ceived Time Location / / Volume Laterality 05/04/2007 9:57 PM APIGEE DEVELOPER Navneet Campos MD LAB_1 Performing Organization Address City/[facility] Phon e Number HP CONVERSION Bedside Glucose Monitor (05/04/2007 4:51 PM APIGEE DEVELOPER) athologist Signature Bedside Blood 346 mg/dL HP CONVERSION Glucose Test Blood Glucose * No normal HP CONVERSION Screen, range Comment 1 Blood Glucose * No normal HP CONVERSION Screen, range Comment 2 Blood Glucose * No normal HP CONVERSION Screen, range Comment 3 Specimen (Source) Anatomical Collection Method Collection Time Re ceived Time Location / / Volume Laterality 05/04/2007 4:51 PM APIGEE DEVELOPER Navneet Campos MD LAB_1 Performing Organization Address City/[facility] Phon e Number HP CONVERSION Bedside Glucose Monitor (05/04/2007 11:08 AM APIGEE DEVELOPER) athologist Signature Bedside Blood 283 mg/dL HP CONVERSION Glucose Test Blood Glucose * No normal HP CONVERSION Screen, range Comment 1 Blood Glucose * No normal HP CONVERSION Screen, range Comment 2 Blood Glucose * No normal HP CONVERSION Screen, range Comment 3 Specimen (Source) Anatomical Collection Method Collection Time Re ceived Time Location / / Volume Laterality 05/04/2007 11:08 AM APIGEE DEVELOPER Navneet Campos MD LAB_1 Performing Organization Address City/[facility] Code Phon e Number HP CONVERSION (ABNORMAL) Hemoglobin, Blood (05/04/2007 7:35 AM APIGEE DEVELOPER) athologist Signature Hemoglobin 8.9 (L) 11.8 - 15.5 HP CONVERSION gm/dL Specimen (Source) Anatomical Collection Method Collection Time Re ceived Time Location / / Volume Laterality 05/04/2007 7:35 AM APIGEE DEVELOPER Navneet Campos MD LAB_1 Performing Organization Address [facility] Phon e Number HP CONVERSION Bedside Glucose Monitor (05/04/2007 6:51 AM APIGEE DEVELOPER) athologist Signature Bedside Blood 189 mg/dL HP CONVERSION Glucose Test Blood Glucose * No normal HP CONVERSION Screen, range Comment 1 Blood Glucose * No normal HP CONVERSION Screen, range Comment 2 Blood Glucose * No normal HP CONVERSION Screen, range Comment 3 Specimen (Source) Anatomical Collection Method Collection Time Re ceived Time Location / / Volume Laterality 05/04/2007 6:51 AM APIGEE DEVELOPER Navneet Campos MD LAB_1 Performing Organization Address [facility] Phon e Number HP CONVERSION Bedside Glucose Monitor (05/03/2007 9:54 PM APIGEE DEVELOPER) athologist Signature Bedside Blood 299 mg/dL HP CONVERSION Glucose Test Blood Glucose * No normal HP CONVERSION Screen, range Comment 1 Blood Glucose * No normal HP CONVERSION Screen, range Comment 2 Blood Glucose * No normal HP CONVERSION Screen, range Comment 3 Specimen (Source) Anatomical Collection Method Collection Time Re ceived Time Location / / Volume Laterality 05/03/2007 9:54 PM APIGEE DEVELOPER Navneet Campos MD LAB_1 Performing Organization Address [facility] Phon e Number HP CONVERSION XR Knee Lt AP And Lateral (05/03/2007 5:26 PM APIGEE DEVELOPER) Anatomical Region Laterality Modality Lower Extremity, Knee Other Specimen (Source) Anatomical Location Collection Method / Collectio n Time Received Time / Laterality Volume Narrative 05/03/2007 5:26 PM APIGEE DEVELOPER COMPARISON: ??04/20/2007. FINDINGS: ??Normal alignment of the tota l knee arthroplasty. ??No fractures or dislocations. ??Skin staple s, drainage catheter, and soft-tissue lucencies compatible with re cent surgery. ??No definite retained foreign bodies. [id number] Dictating ALISA MADDEN MD Procedure Note Alisa Barrios MD - 09/01/2016Formatti ng of this note might be different from the original. COMPARISON: 04/20/2007. FINDINGS: Normal alignment of the total knee arthroplasty. No fractures or dislocations. Skin nahomy, drainage catheter, and soft-tissue lucencies compatible with re cent surgery. No definite retained foreign bodies. [id number] Dictating ALISA MADDEN MD Navneet Campos MD RAD GD Bedside Glucose Monitor (05/03/2007 5:13 PM APIGEE DEVELOPER) P athologist Signature Bedside Blood 147 mg/dL HP CONVERSION Glucose Test Blood Glucose * No normal HP CONVERSION Screen, range Comment 1 Blood Glucose * No normal HP CONVERSION Screen, range Comment 2 Blood Glucose * No normal HP CONVERSION Screen, range Comment 3 Specimen (Source) Anatomical Collection Method Collection Time Re ceived Time Location / / Volume Laterality 05/03/2007 5:13 PM APIGEE DEVELOPER Navneet Campos MD LAB_1 Performing Organization Address [facility] Phon e Number HP CONVERSION Bedside Glucose Monitor (05/03/2007 2:52 PM APIGEE DEVELOPER) athologist Signature Bedside Blood 215 mg/dL HP CONVERSION Glucose Test Blood Glucose * No normal HP CONVERSION Screen, range Comment 1 Blood Glucose * No normal HP CONVERSION Screen, range Comment 2 Blood Glucose * No normal HP CONVERSION Screen, range Comment 3 Specimen (Source) Anatomical Collection Method Collection Time Re ceived Time Location / / Volume Laterality 05/03/2007 2:52 PM APIGEE DEVELOPER Navneet Campos MD LAB_1 Performing Organization Address [facility] Phon e Number HP CONVERSION Bedside Glucose Monitor (05/03/2007 11:58 AM APIGEE DEVELOPER) athologist Signature Bedside Blood 234 mg/dL HP CONVERSION Glucose Test Blood Glucose * No normal HP CONVERSION Screen, range Comment 1 Blood Glucose * No normal HP CONVERSION Screen, range Comment 2 Blood Glucose * No normal HP CONVERSION Screen, range Comment 3 Specimen (Source) Anatomical Collection Method Collection Time Re ceived Time Location / / Volume Laterality 05/03/2007 11:58 AM APIGEE DEVELOPER Navneet Campos MD LAB_1 Performing Organization Address [facility] Phon e Number HP CONVERSION MRSA Culture (05/03/2007 11:30 AM APIGEE DEVELOPER) Analysis Performed At [facility] Time Signature Culture Mrsa SEE TEXT HP CONVERSION Screen Comment: Patient: MARYAM CRISOSTOMO Culture, MRSA Screen ?Collected: ??[id number] ??[id number] Source: NEERU ? Processed: ??[id number] ??[id number] ? NEERU Final Report ------ ?[id number] ??[id number] No Methicillin resistant Staph aureus is olated. Specimen (Source) Anatomical Collection Method Collection Time Re ceived Time Location / / Volume Laterality 05/03/2007 11:30 AM APIGEE DEVELOPER Keisha Sandoval MD LAB_1 Performing Organization Address City/State/ZIP Code Phon e Number HP CONVERSION documented in this encounter Visit Diagnoses Not on filedocumented in this encounter Care Teams Toilet Attendant Relationship Specialty Start Date End Date Unassigned, Provider PCP - General 08/26/00 09/26/10 [address] [place] [address] documented as of this encounter
--- OUTSIDE RECORDS SUMMARY | 2022-05-27 17:48 | XMS_ITS | Encounter Summary ---
:1945 Author Organization [facility] Address [address] [place] [address] Care Team Providers Name Role Phone Coleman Dye MD Primary Care Provider Unavailable Encounter Details Date Type Department Care Team Description 12/17/2009 PN Conversion Only [facility] 3931 Navneet Rangel MD [facility] [address] [place] [address] [facility] [address] [place] [phone] (Wo rk) Social History Tobacco Use Types [...] 2320 Note Time: 12/17/09 0001 Status: Signed Virtual Classroom Manager: Navneet Rangel MD (Physician) NAME: MARYAM CORTEZ MR#: [id number] ACCT: [id number] VISIT: [id number] DICTATING CLINICIAN: Navneet Rangel MD CONFIRM #: [id number] LOC: 211 CLINIC PROGRESS NOTE DATE OF [...] will follow up with me as needed. PRD:[id number] C: 12/17/09 17:57 CONFIRM #: [id number] documented in this encounter Plan of Treatment [...] on filedocumented in this encounter Care Teams Shank Turner Relationship Specialty Start Date End Date Coleman Dye MD PCP - General 09/27/1012/19 documented as of this encounter
--- OUTSIDE RECORDS SUMMARY | 2022-05-27 17:48 | XMS_ITS | Encounter Summary ---
:1945 [facility] Address [address] [place] [address] Care Team Providers Name Role Phone Lina Meléndez MD Primary Care Provider Reason for Visit Reason Comments EXAM,PRE-OP Encounter Details Date Type Department Care Team Description 07/12/2019 Telephone Specialty [facility] 3931 Edelmira Lopez MD EXAM,PRE-OP Orthopedics [id number] [place] [address] [place], [place] [address] [phone] Social History Tobacco Use Types Packs/Day Years [...] Will update case request once information received BALL GLOVE STUFFER Hanh Hernandez - 07/12/2019 10:18 AM CST Has the patient recently had surgery or an injury? No Patient wanted Jim to know that she did her Pre-Op somewhere other than what he suggested. Please call patient when ready. BALL GLOVE STUFFER documented in this encounter Plan of Treatment Not on filedocumented as of this encounter Visit Diagnoses Not on filedocumented in this encounter Care Teams Directory Assistance Operator Relationship Specialty Start Date End Date Lina Meléndez MD PCP - General Internal Medicine 12/[address] [place] [address] documented as of this encounter
--- OUTSIDE RECORDS SUMMARY | 2022-05-27 17:49 | XMS_ITS | Encounter Summary ---
:1945 Author Organization [facility] Address [address] [place] [address] Care Team Providers Name Role Phone Lina [...] on filedocumented in this encounter Care Teams Cleat Maker Relationship Specialty Start Date End Date Lina Meléndez PCP - General Internal Medicine 12/26/14 [facility] [address] [place] [address] Rhoda Sarabia I Appliance Mechanic Dietitian, Registered 02/20/[address] [phone] documented as of this encounter
--- OUTSIDE RECORDS SUMMARY | 2022-05-27 17:49 | XMS_ITS | Encounter Summary ---
:1945 Author Organization [facility] Address [address] [place] [address] Care Team Providers Name Role Phone Lina Meléndez Primary Care Provider Rhoda Sarabia I Unavailable Encounter Details Date Type Department Care Team Description 11/22/2020 Records - [facility] YENNI CONVERSION Provider, Histor ical Social [...] on filedocumented in this encounter Care Teams Equipment Processor Relationship Specialty Start Date End Date Lina Meléndez PCP - General Internal Medicine 12/26/14 [facility] [address] [place] [address] Rhoda Sarabia I Deputy Brand Inspector Dietitian, Registered 02/20/[address] [place] [address] documented as of this encounter
--- OUTSIDE RECORDS SUMMARY | 2022-05-27 17:49 | XMS_ITS | Encounter Summary ---
:1945 Author Organization [facility] Address [address] [place] [address] Care Team Providers Name Role Phone Lina Meléndez Primary Care Provider [place], Dojessie Parrish Unavailable Encounter Details Date Type Department Care Team Description 11/17/2020 Records - [facility] YENNI CONVERSION Provider, Histor ical Social [...] 12:00 AM Resu lts for this ORDER CHIP FRIER procedure are i n the results section. documented in this encounter Results Mammo Misc Order (06/29/2000 12:00 AM CHIP FRIER) Anatomical Region Laterality Modality Other Specimen (Source) Anatomical Location Collection Method / Collectio n Time Received Time / Laterality Volume Narrative 06/29/2000 12:00 AM CHIP FRIER See Historical Hospital Medical Record f or documentation Procedure Note Provider, Historical - 11/17/2020Formatt ing of this note might be different from the original. See Historical Hospital Medical Record f or documentation Historical Provider IMG MAMMOGRAPHY ORDERABLES documented in this encounter Visit Diagnoses Not on filedocumented in this encounter Care Teams Communications Tech Relationship Specialty Start Date End Date Lina Meléndez PCP - General Internal Medicine 12/26/14 [facility] [address] [place], [place] [id number] Rhdoa Sarabia I Pleasure Craft Sailor Dietitian, Registered 02/20/[address] [place] [address] documented as of this encounter
--- OUTSIDE RECORDS SUMMARY | 2022-05-27 17:49 | XMS_ITS | Encounter Summary ---
:1945 Author Organization [facility] Address [address], [place] [address] Care Team Providers Name Role Phone Coleman Dye MD Primary Care Provider Unavailable Encounter Details Date Type Department Care Team Description 12/19/2003 Office Visit [facility] Navneet Campos MD [address] [facility] [address] [place], [place] [address] [place] [address] (Wo rk) Social History Tobacco [...] 2309 Note Time: 12/19/03 0001 Status: Signed Environmental Designer: Navneet Campos MD (Physician) NAME: MARYAM CORTEZ MR: [id number] ACCT: [id number] VISIT: [id number] DICTATING CLINICIAN: NAVNEET CAMPOS MD JOB: [id number] CLINIC PROGRESS NOTE DATE OF VISIT: 12/19/2003 [...] TIME: 30 minutes. COUNSELING TIME: 20 minutes. PRD:[id number] C: 12/19/03 20:10 DOCUMENT: [id number] documented in this encounter Plan of Treatment Not on filedocumented as of this encounter Visit Diagnoses Not on filedocumented in this encounter Care Teams Landfill Gas Plant Field Technician Relationship Specialty Start Date End Date Coleman Dye MD PCP - General 09/27/1012/19 documented as of this encounter
--- OUTSIDE RECORDS SUMMARY | 2022-05-27 17:49 | XMS_ITS | Encounter Summary ---
:1945 Author Organization [facility] Address [address] [address] Care Team Providers Name Role Phone Coleman Dye MD Primary Care Provider Unavailable Encounter Details Date Type Department Care Team Description 02/06/2003 [facility] [address] Mo Barkley MD [facility] [address] [place] [address] Social History Tobacco Use Types Packs/Day Years Used Date Smoking Tobacco: Never Assessed Sex Assigned at Date Recorded Not on file documented as of this encounter Progress Notes David Barkley - 02/06/2003 12:01 AM CDT Progress Notes signed by at 03/20/03 1029 Author: David Barkley MD Service: (none) Author Type: (none) Filed: 10/14/10 1539 Note Time: 02/06/03 0001 Status: Signed Beauty School Instructor: Imr Conversion NAME: MARYAM CORTEZ MR: [id number] ACCT: [id number] VISIT: [id number] DICTATING CLINICIAN: MO BARKLEY MD JOB: [id number] CLINIC PROGRESS NOTE DATE OF VISIT: 02/06/2003 [...] her knees. 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 FAMILY HISTORY: She [...] X-ray is reviewed from 12/21 done at [facility] and do not show any bone or [...] on an as needed basis. TT: CT: ANA ROSAK:[id number] C: 02/07/03 15:34 DOCUMENT: [id number] Navneet Marie MD - 01/18/2002 12:01 AM CDT Progress Notes signed by Navneet Campos MD at 08/14/02 1724 Author: Navneet Campos MD Service: (none) Author Type: Physician Filed: 10/14/10 0803 Note Time: 01/18/02 0001 Status: Signed Beauty School Instructor: Navneet Campos MD (Physician) IMPRESSION: X SUBJECTIVE: Maryam is in today to get a cortisone injection in her right knee. She has degenerative arthritis of the knee and she is scheduled to go to [place] in a few weeks. When I saw her last time I told her it would probably be to her benefit to come in a week or so ahead of time for an injection. OBJECTIVE: N/A ASSESSMENT: N/A PLAN: After sterile prep I injected a mixture of lidocaine and Depo- Medrol. We will have her follow-up in three months. TT: CT: [id number] C: DOCUMENT: [id number] Navneet Marie MD - 12/14/2001 12:01 AM CDT Progress Notes signed by at 07/13/02 1836 Author: Navneet Campos MD Service: (none) Author Type: Physician Filed: 10/14/10 0716 Note Time: 12/14/01 0001 Status: Signed Beauty School Instructor: Navneet Campos MD (Physician) IMPRESSION: Degenerative joint [...] to go on a missionary trip to [place] for 15 days in January. OBJECTIVE: Exam [...] wait until just before she goes to [place]. We have mutually agreed to do cortisone [...] be seen in late December. TT: CT: [id number] C: DOCUMENT: [id number] OR APPRENTICE Navneet Campos MD - 09/25/2001 12:01 AM CST Progress Notes signed by at 07/13/02 1826 Author: Navneet Campos MD Service: (none) Author Type: Physician Filed: 10/14/10 0525 Note Time: 09/25/012016 Status: Signed Beauty School Instructor: Navneet Campos MD (Physician) IMPRESSION: Degenerative joint [...] She will follow-up as needed. TT: CT: [id number] C: DOCUMENT: [id number] Navneet Marie MD - 07/06/2001 12:01 AM CST Progress Notes signed by at 07/13/02 1818 Author: Navneet Campso MD Service: (none) Author Type: Physician Filed: 10/14/100 Note Time: 07/06/01 0001 Status: Signed Beauty School Instructor: Navneet Campos MD (Physician) IMPRESSION: Degenerative joint [...] on an as needed basis. TT: CT: [id number] C: DOCUMENT: [id number] Navneet Marie MD - 04/27/2001 12:01 AM CST Progress Notes signed by at 07/13/02 181 Author: Navneet Campos MD Service: (none) Author Type: Physician Filed: 10/14/10 0200 Note Time: 04/27/01 0001 Status: Signed Beauty School Instructor: Navneet Campos MD (Physician) IMPRESSION: Degenerative joint [...] if at least partial relief is obtained. PRD:[id number] C: DOCUMENT: [id number] OR APPRENTICE Conversion, [facility] - 06/30/1999 12:01 AM CST Progress Notes signed by at 01/30/01 1589 Author: Boubacar Conversion Service: (none) Author Type: (none) Filed: 10/13/10 1437 Note Time: 06/30/992016 Status: Signed Beauty School Instructor: Boubacar Conversion IMPRESSION: Contusion right knee, fifth metatarsalgia right foot, degenerative joint disease left mid foot. SUBJECTIVE: Ms. Cortez is a 53-year-old female who is well known to me from a practice in [place], who is being seen today for several [...] to have her go back to the dice spotter and modify her orthotics with a metatarsal [...] us if she decides to do so. PRD:[id number] C: DOCUMENT: [id number] SCHEDULED RESOURCE: NAVNEET CAMPOS MD OR APPRENTICE documented in this encounter Plan of Treatment [...] PM Results f or this CONVERSION DEFAULT TAILOR APPRENTICE procedure are in ORDER the results section. ANC RESULT Routine 06/30/1999 2:30 PM Results f or this CONVERSION DEFAULT TAILOR APPRENTICE procedure are in ORDER the results section. [...] both anteriorly and posteriorly. No acute abnormality. [id number] Dictating TAVON CURRY RADIOLOGIST Procedure Note Tavon [...] both anteriorly and posteriorly. No acute abnormality. [id number] Dictating TAVON CURRY RADIOLOGIST Navneet Campos MD [...] T HERE HAS BEEN NO ?SIGNIFICANT CHANGE. ?[id number] - MT(183)/CAR TECH-ID : ? JLW TRANS-ID: [...] 06/30/1999, THERE HAS BEEN NO SIGNIFICANT CHANGE. [id number] - [id number])/[employer] TECH-ID : JLW TRANS-ID: EDR Navneet Campos MD RAD GD Anc Result Conversion Default Order (06/30/1999 2:30 PM TAILOR APPRENTICE) Anatomical Region Laterality Modality Other Specimen (Source) Anatomical Location Collection Method / Collectio n Time Received Time / Laterality Volume Impressions 06/30/1999 2:30 PM TAILOR APPRENTICE : ?BILATERAL HALLUX VALGUS AND DEGENE RATIVE [...] TRANS-ID: ? LMA Narrative 06/30/1999 2:30 PM TAILOR APPRENTICE CLINICAL DATA: ?BUMP Procedure Note Mike Camacho [...] Result Conversion Default Order (06/30/1999 2:30 PM TAILOR APPRENTICE) Anatomical Region Laterality Modality Other Specimen (Source) Anatomical Location Collection Method / Collectio n Time Received Time / Laterality Volume Impressions 06/30/1999 2:30 PM TAILOR APPRENTICE : ?DEGENERATIVE CHANGE AT THE KNEES B [...] TRANS-ID: ? LMA Narrative 06/30/1999 2:30 PM TAILOR APPRENTICE CLINICAL DATA: ?FALL Procedure Note Mike Camacho [...] on filedocumented in this encounter Care Teams Fiberglass Roving Winder Relationship Specialty Start Date End Date Coleman Dye MD PCP - General 09/27/1012/19 documented as of this encounter
--- OUTSIDE RECORDS SUMMARY | 2022-05-27 17:49 | XMS_ITS | Clinical Summary ---
:1945 Author Organization [facility] Address [address] [place] [address] Care Team Providers Name Role Phone NavdeepLina uriostegui Primary Care Provider Rhoda Sarabia I Unavailable Allergies Active Allergy Reactions Severity Noted Date Comments Codeine Unknown 01/03/2007 Medications Medication Sig Dispensed Refills Start Date End Date Status insulin glargine Inject 13 Units 0 11/05/2018 Active (LANTUS VIAL) 100 Subcutaneous UNIT/ML vial HUMALOG KWIKPEN 100 Inject 1 units/carb 0 12/19/2019 Active UNIT/ML soln unit Subcutaneous 3 times daily (before meals) Take 1 unit per carb choice (15gm) Take up to 6 units per meal, and 1 unit per snack. 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 Hyperlipidemia Overview: Created by Conversion Depression Overview: Created by Conversion Migraine Headache Overview: Created by Conversion Replacement Utility updated for latest I MO load Myopia Overview: Created by Conversion Hypertension Overview: Created by Conversion Replacement Utility updated for latest I MO load Asthma Overview: Created by Conversion Esophageal Reflux Overview: Created by Conversion Urticaria Overview: Created by Conversion Osteoarthritis Overview: Created by Conversion Videdressing [facility] Annotation: Dec 29 2006 3:46P Jojo Coughlin: DJD Replacement Utility updated for latest I MO load Lower Back Pain Overview: Created by Conversion Videdressing [facility] Annotation: Dec 29 2006 3:46P Jojo Coughlin: MRI: small L5-S1 disc, degenerative changes, narrow ing of bilateral neuroforamina L5-S1 and mass effect on both L5 nerves Stress Incontinence Overview: Created by Conversion Encounters Date Type Specialty Care Team Description 03/31/2022 Travel from Last 3 Months Immunizations Name Administration Dates Next Due DT (PEDS <7y) 01/22/2002 HepA, Unspecified 01/25/2002 Td,adult,historic,unspecified 01/22/2002 Zoster vaccine, live 03/11/2009 Social History Tobacco Use Types Packs/Day Years Used Date Smoking Tobacco: Never Assessed Sex Assigned at Date Recorded Female 02/24/2020 11:40 AM CDT Plan of Treatment Health Maintenance Due Date Last Done Comments ADVANCE CARE PLANNING 1945 ANNUAL REVIEW OF HM ORDERS 1945 ASTHMA ACTION PLAN 1945 ASTHMA CONTROL TEST [address] COLONOGRAPHY 1945 DEXA 1945 DIABETIC FOOT EXAM 1945 EYE EXAM 1945 FIT-DNA (Cologuard) 1945 FIT 1947 FLEX SIG 1945 MAMMO SCREENING 1947 MICROALBUMIN 1947 COVID-19 Vaccine (#1) 02/17/1946 COLONOSCOPY 1957 COLORECTAL CANCER SCREENING 1957 HEPATITIS C SCREENING 1965 DTAP/TDAP/TD IMMUNIZATION 01/23/2002 01/22/2002, 01/22/2002 (1 - Tdap) FALL RISK ASSESSMENT 2012 MEDICARE ANNUAL WELLNESS 2012 VISIT A1C 03/19/2020 12/18/2019, 03/11/2009 LIPID 12/17/2020 12/18/2019 PHQ-2 (once per calendar 06/26/2021 year) INFLUENZA VACCINE (#1) 2022 03/26/2019, 03/31/2017, 04/20/2016, Additional history exists Pneumococcal Vaccine: 65+ Completed 06/07/2018, 08/22/2014 , Years 06/10/2010 ZOSTER IMMUNIZATION Completed 10/10/2018, 06/04/2018, 03/11/2009 IPV IMMUNIZATION Aged Out No longer eligi ble based on patient 's age to complete this topic MENINGITIS IMMUNIZATION Aged Out No longe r eligible based on patient 's age to complete this topic Insurance Payer Benefit Plan / Subscriber ID Effective Dates Phone Addre ss Type Group [facility] MEDICARE [id number] 2019-Present [phone] [address] [place] [address] Care Teams It Business Analyst Relationship Specialty Start Date End Date Lina Meléndez PCP - General Internal Medicine 12/26/14 [facility] [address] [place] [address] Rhoda Sarabia I Facility Mechanic Dietitian, Registered 02/20/[address] [address]
--- OUTSIDE RECORDS SUMMARY | 2022-05-27 17:49 | XMS_ITS | Encounter Summary ---
:1945 Author Organization [facility] Address [address] [place] [address] Care Team Providers Name Role Phone Lina Meléndez Primary Care Provider GadsdenRhoda noe Shivani Unavailable Encounter Details Date Type Department Care Team Description 11/19/2020 [facility] Provider, Histor ical Social History Tobacco Use Types Packs/Day Years Used Date Smoking Tobacco: Never Assessed Sex Assigned at Date Recorded Female 02/24/2020 11:40 AM CDT documented as of this encounter Plan of Treatment Not on filedocumented as of this encounter Procedures Procedure Name Priority Date/Time Associated Diagnosis Comme nts MA BREAST SPECIMEN Routine 06/06/2003 12:00 AM Re sults for this SALESPERSON RECREATIONAL VEHICLES procedure are i n the results section. MA BREAST WIRE Routine 06/06/2003 12:00 AM Result s for this PLACEMENT 1ST SALESPERSON RECREATIONAL VEHICLES procedure are in LESION RT the results section. documented in this encounter Results MA BREAST SPECIMEN (06/06/2003 12:00 AM SALESPERSON RECREATIONAL VEHICLES) Anatomical Region Laterality Modality Other Specimen (Source) Anatomical Location Collection Method / Collectio n Time Received Time / Laterality Volume Narrative 06/06/2003 12:00 AM SALESPERSON RECREATIONAL VEHICLES See Historical Hospital Medical Record f or documentation Procedure Note Provider, Historical - 11/19/2020Formatt ing of this note might be different from the original. See Historical Hospital Medical Record f or documentation Historical Provider IMG MAMMOGRAPHY ORDERABLES MA Breast Wire Placement 1st Lesion Righ (06/06/2003 12:00 AM SALESPERSON RECREATIONAL VEHICLES) Anatomical Region Laterality Modality Breast Right Other Specimen (Source) Anatomical Location Collection Method / Collectio n Time Received Time / Laterality Volume Narrative 06/06/2003 12:00 AM SALESPERSON RECREATIONAL VEHICLES See Historical Hospital Medical Record f or documentation Procedure Note Provider, Historical - 11/19/2020Formatt ing of this note might be different from the original. See Historical Hospital Medical Record f or documentation Historical Provider IMG MAMMOGRAPHY ORDERABLES documented in this encounter Visit Diagnoses Not on filedocumented in this encounter Care Teams Lapidarist Relationship Specialty Start Date End Date Lina Meléndez PCP - General Internal Medicine 12/26/14 [facility] [address] [place] [address] Rhoda Sarabia I Tester Sound Dietitian, Registered 02/20/[address] [address] documented as of this encounter
--- OUTSIDE RECORDS SUMMARY | 2022-05-27 17:49 | XMS_ITS | Encounter Summary ---
:1945 Author Organization [facility] Address [address] [place] [address] Care Team Providers Name Role Phone Lina Meléndez Primary Care Provider Rhoda Sarabia I Unavailable Reason for Visit Reason Comments Appointment Encounter Details Date Type Department Care Team Description 05/23/2016 [facility] Luis Sherman MD Appointment [address] [address] [place], [place] [phone] (Wo rk) [address] [phone] Social History Tobacco Use Types Packs/Day Years Used Date Smoking Tobacco: Never Assessed Sex Assigned at Date Recorded Female 02/24/2020 11:40 AM CDT documented as of this encounter Plan of Treatment Not on filedocumented as of this encounter Visit Diagnoses Not on filedocumented in this encounter Care Teams Loading Dock Helper Relationship Specialty Start Date End Date Lina Meléndez PCP - General Internal Medicine 12/26/14 [facility] [address] [place] [address] Rhoda Sarabia I Middleware Administrator Dietitian, Registered 02/20/[address] [address] documented as of this encounter
--- OUTSIDE RECORDS SUMMARY | 2022-05-27 17:49 | XMS_ITS | Encounter Summary ---
:1945 Author Organization [facility] Address [address] [place] [address] Care Team Providers Name Role Phone Lina Meléndez Primary Care Provider [place] jessie Parrish Unavailable Encounter Details Date Type Department Care Team Description 11/20/2020 Records - [facility] YENNI CONVERSION Provider, Histor ical Social [...] 12:00 AM Resu lts for this ORDER DIVISION CONTROLLER procedure are i n the results section. documented in this encounter Results Mammo Misc Order (07/20/2004 12:00 AM DIVISION CONTROLLER) Anatomical Region Laterality Modality Other Specimen (Source) Anatomical Location Collection Method / Collectio n Time Received Time / Laterality Volume Narrative 07/20/2004 12:00 AM DIVISION CONTROLLER See Historical Hospital Medical Record f or documentation Procedure Note Provider, Historical - 11/20/2020Formatt ing of this note might be different from the original. See Historical Hospital Medical Record f or documentation Historical Provider IMG MAMMOGRAPHY ORDERABLES documented in this encounter Visit Diagnoses Not on filedocumented in this encounter Care Teams Interline Clerk Relationship Specialty Start Date End Date Lina Meléndez PCP - General Internal Medicine 12/26/14 [facility] [address] [place], [place] [phone] Rhoda Sarabia I Derrick Engineer Dietitian, Registered 02/20/[address] [place] [address] documented as of this encounter
--- OUTSIDE RECORDS SUMMARY | 2022-05-27 17:49 | XMS_ITS | Encounter Summary ---
:1945 Author Organization [facility] Address [address] [place] [address] Care Team Providers Name Role Phone Lina Meléndez Primary Care Provider Rhoda Sarabia I Unavailable Encounter Details Date Type Department Care Team Description 11/24/2020 Records - [facility] YENNI CONVERSION Provider, Histor ical [...] on filedocumented in this encounter Care Teams Cemetery Manager Relationship Specialty Start Date End Date Lina Meléndez PCP - General Internal Medicine 12/26/14 [facility] [address] [place] [address] Rhoda Sarabia I Physics Teacher Dietitian, Registered 02/20/[address] [place] [address] documented as of this encounter
--- OUTSIDE RECORDS SUMMARY | 2022-05-27 17:49 | XMS_ITS | Encounter Summary ---
:1945 Author Organization [facility] Address [address] [place] [address] Care Team Providers Name Role Phone Unavailable Primary Care Provider Unavailable Encounter Details Date Type Department Care Team Description 08/12/2009 Historic Results INTERFACED REPORT Leticia Heredia MD [facility] [address] [place], [place] [address] (Wo rk) Social History Tobacco Use Types Packs/Day Years Used Date Smoking Tobacco: Never Assessed Sex Assigned at Date Recorded Female 02/24/2020 11:40 AM CDT documented as of this encounter Plan of Treatment Not on filedocumented as of this encounter Procedures Procedure Name Priority Date/Time Associated Diagnosis Comme nts GLUCOSE BY METER Routine 08/12/2009 1:06 PM Resul ts for this FISHER LINE procedure are i n the results section. documented in this encounter Results (ABNORMAL) Glucose by meter (08/12/2009 1:06 PM [place]) P athologist Signature Glucose 190 (H) 60 - 99 MISYS mg/dL Specimen Anatomical Collection Method Collection Time Receive d Time (Source) Location / / Volume Laterality 08/12/2009 1:06 PM 0 5:36 [place] AM [place] Meghann LEE POCT Performing Organization Address City/State/ZIP Code Phon e Number MISYS documented in this encounter Visit Diagnoses Not on filedocumented in this encounter
--- OUTSIDE RECORDS SUMMARY | 2022-05-27 17:49 | XMS_ITS | Encounter Summary ---
:1945 Author Organization [facility] Address [address] [place] [address] Care Team Providers Name Role Phone Lina Meléndez Primary Care Provider Swain jessie Parrish Unavailable Encounter Details Date Type Department Care Team Description 11/19/2020 Records - [facility] YENNI CONVERSION Provider, Histor ical Social [...] on filedocumented in this encounter Care Teams Bank Reconciliator Relationship Specialty Start Date End Date Lina Meléndez PCP - General Internal Medicine 12/26/14 [facility] [address] [place] [address] Rhoda Sarabia I Income Tax Analyst Dietitian, Registered 02/20/[address] [place] [phone] documented as of this encounter
--- OUTSIDE RECORDS SUMMARY | 2022-05-27 17:49 | XMS_ITS | Encounter Summary ---
:1945 Author Organization [facility] Address [address] [place] [address] Care Team Providers Name Role Phone Lina [...] on filedocumented in this encounter Care Teams Copier Field Service Technician Relationship Specialty Start Date End Date Lina Meléndez PCP - General Internal Medicine 12/26/14 [facility] [address] [place] [address] Rhoda Sarabia I Supply Tech Dietitian, Registered 02/20/[address] [phone] documented as of this encounter
--- OUTSIDE RECORDS SUMMARY | 2022-05-27 17:49 | XMS_ITS | Encounter Summary ---
:1945 Author Organization [facility] Address [address] [place] [address] Care Team Providers Name Role Phone Lina Meléndez Primary Care Provider Rhoda Sarabia I Unavailable Encounter Details Date Type Department Care Team Description 11/22/2020 Records - [facility] YENNI CONVERSION Provider, Histor ical Social History [...] AM Re sults for this STEROID INJECTION ASSISTANT DIRECTOR OF SECURITY procedure are in the results section. documented in this encounter Results IR Lumbar Epidural Steroid Injection (08/18/2006 12:00 AM ASSISTANT DIRECTOR OF SECURITY) Anatomical Region Laterality Modality Spine Other Specimen (Source) Anatomical Location Collection Method / Collectio n Time Received Time / Laterality Volume Narrative 08/18/2006 12:00 AM ASSISTANT DIRECTOR OF SECURITY See Historical Hospital Medical Record f or documentation Procedure Note Provider, Historical - 11/22/2020Formatt ing of this note might be different from the original. See Historical Hospital Medical Record f or documentation Historical Provider IMG IR ORDERABLES documented in this encounter Visit Diagnoses Not on filedocumented in this encounter Care Teams Ambulance Attendant Relationship Specialty Start Date End Date Lina Meléndez PCP - General Internal Medicine 12/26/14 [facility] [address] [place] [address] Rhoda Sarabia I Family Life Counselor Dietitian, Registered 02/20/[address] [address] documented as of this encounter
--- OUTSIDE RECORDS SUMMARY | 2022-05-27 17:49 | XMS_ITS | Encounter Summary ---
:1945 Author Organization [place] Address [address] [place] [address] Care Team Providers Name Role Phone Lina Meléndez Primary Care Provider RandallRhoda noe Shivani Unavailable Encounter Details Date Type Department Care Team Description 11/17/2020 Records - [facility] YENNI CONVERSION Provider, Histor ical Social [...] on filedocumented in this encounter Care Teams Scullion Chief Relationship Specialty Start Date End Date Lina Meléndez PCP - General Internal Medicine 12/26/14 [facility] [address] [place] [address] Rhoda Sarabia I Wrapper Selector Dietitian, Registered 02/20/[address] [address] documented as of this encounter
--- OUTSIDE RECORDS SUMMARY | 2022-05-27 17:49 | XMS_ITS | Encounter Summary ---
:1945 Author Organization [place] Address [address] [place] [address] Care Team Providers Name Role Phone NavdeepLina uriostegui Primary Care Provider [facility] Francois[place]oda noe Shivani Unavailable Encounter Details Date Type Department Care Team Description [facility]/2009 [facility] Larissa Hernandez MD [address] [place] [address] RETIRED [facility] [address] [place] [address] Social History Tobacco Use Types [...] Organization Address City/State/ZIP Code Phon e Number [facility] [place] [address] [address] [facility] [address] [facility], [address] [place] [address] documented in this encounter Visit Diagnoses Not on filedocumented in this encounter Care Teams Chemicals Fermentation Operator Relationship Specialty Start Date End Date Lina Meléndez PCP - General Internal Medicine 12/26/14 [facility] [address] [place] [address] Rhoda Sarabia I Assessment Expert Dietitian, Registered 02/20/20 290 [facility] [address] [place] [address] documented as of this encounter
--- OUTSIDE RECORDS SUMMARY | 2022-05-27 17:49 | XMS_ITS | Encounter Summary ---
:1945 Author Organization [place] Address [address] [place] [address] Care Team Providers Name Role Phone Lina Meléndez Primary Care Provider [place] Shivani Unavailable Encounter Details Date Type Department Care Team Description 11/19/2020 Records - [facility] Provider, Histor ical Social History Tobacco Use Types Packs/Day Years Used Date Smoking Tobacco: Never Assessed Sex Assigned at Date Recorded Female 02/24/2020 11:40 AM CDT documented as of this encounter Plan of Treatment Not on filedocumented as of this encounter Procedures Procedure Name Priority Date/Time Associated Comments Diagnosis MA BREAST SPECIMEN Routine 05/09/2003 12:00 Resul ts for this AM FITTER HELPER procedure are i n the results section. MA STEREOTACTIC Routine 05/09/2003 12:00 Results for this BREAST BIOPSY RIGHT AM FITTER HELPER procedur e are in the results section. documented in this encounter Results MA BREAST SPECIMEN (05/09/2003 12:00 AM FITTER HELPER) Anatomical Region Laterality Modality Other Specimen (Source) Anatomical Location Collection Method / Collectio n Time Received Time / Laterality Volume Narrative 05/09/2003 12:00 AM FITTER HELPER See Historical Hospital Medical Record f or documentation Procedure Note Provider, Historical - 11/19/2020Formatt ing of this note might be different from the original. See Historical Hospital Medical Record f or documentation Historical Provider IMG MAMMOGRAPHY ORDERABLES MA Stereotactic Breast Biopsy, 1St Lesion Right (05/09/2003 12:00 AM FITTER HELPER) Anatomical Region Laterality Modality Breast Right Other Specimen (Source) Anatomical Location Collection Method / Collectio n Time Received Time / Laterality Volume Narrative 05/09/2003 12:00 AM FITTER HELPER See Historical Hospital Medical Record f or documentation Procedure Note Provider, Historical - 11/19/2020Formatt ing of this note might be different from the original. See Historical Hospital Medical Record f or documentation Historical Provider IMG MAMMOGRAPHY ORDERABLES documented in this encounter Visit Diagnoses Not on filedocumented in this encounter Care Teams Sand And Gravel Plant Operator Relationship Specialty Start Date End Date Lina Meléndez PCP - General Internal Medicine 12/26/14 [facility] [address] [place] [address] Rhoda Sarabia I Tectonophysicist Dietitian, Registered 02/20/[address] [phone] documented as of this encounter
--- OUTSIDE RECORDS SUMMARY | 2022-05-27 17:49 | XMS_ITS | Encounter Summary ---
:1945 Author Organization [place] Address [address] [place] [address] Care Team Providers Name Role Phone Lina Meléndez Primary Care Provider Rhoda Sarabia I Unavailable Encounter Details Date Type Department Care Team Description 11/22/2020 Records - [facility] YENNI CONVERSION Provider, Histor ical Social History [...] 12:00 AM R esults for this CONTRAST MOLD BURNER procedure are i n the results section. documented in this encounter Results MR Lumbar Spine w/o Contrast (07/19/2006 12:00 AM MOLD BURNER) Anatomical Region Laterality Modality Spine, SUBRAD MR NEURO, UMP MR SPINE, RAD MR Other Specimen (Source) Anatomical Location Collection Method / Collectio n Time Received Time / Laterality Volume Narrative 07/19/2006 12:00 AM MOLD BURNER See Historical Hospital Medical Record f or documentation Procedure Note Provider, Historical - 11/22/2020Formatt ing of this note might be different from the original. See Historical Hospital Medical Record f or documentation Historical Provider IMG MRI ORDERABLES documented in this encounter Visit Diagnoses Not on filedocumented in this encounter Care Teams Financial Agent Relationship Specialty Start Date End Date Lina Meléndez PCP - General Internal Medicine 12/26/14 [facility] [address] [place] [address] Rhoda Sarabia I Procedure Writer Dietitian, Registered 02/20/[address] [place] [address] documented as of this encounter
--- OUTSIDE RECORDS SUMMARY | 2022-05-27 17:49 | XMS_ITS | Encounter Summary ---
:1945 Author Organization [place] Address [address] [place] [address] Care Team Providers Name Role Phone Lina Meléndez Primary Care Provider LorainRhoda noe I Unavailable Encounter Details Date Type Department Care Team Description 02/25/2020 Telephone [facility] Keila Khan RN [place] [address] [place] [address] [place], [place] [phone] Social History Tobacco Use [...] If so, I can not continue with [facility]. My IS 49. I can???t sign in to My Chart. My insurance does not work [facility]. I will not need any further assistance. [...] did look into the question about your medicare/[employer] and this is the response I received: Medicare and other Medicare Advantage plans like [employer] is covering diabetes education visits with the Coffee Farmer ( which [place] is ). I???m not sure what would be meant by ???[employer] Medicare non participant?? on the patient???s MyChart??? I???m not sure that it would specifically be pertaining to our services, though. The patient could call the billing department at [phone] or their insurance company if they want [...] appointment let us know. Keila Khan RN, [facility] documented in this encounter Plan of Treatment Not on filedocumented as of this encounter Visit Diagnoses Not on filedocumented in this encounter Care Teams Accounts Receivable Representative Relationship Specialty Start Date End Date Lina Meléndez PCP - General Internal Medicine 12/26/14 [facility] [address] [place] [address] Rhoda Sarabia I Farm Management Professor Dietitian, Registered 02/20/[address] [address] documented as of this encounter
--- OUTSIDE RECORDS SUMMARY | 2022-05-27 17:49 | XMS_ITS | Encounter Summary ---
:1945 Author Organization [place] Address [address] [place] [address] Care Team Providers Name Role Phone Lina Meléndez Primary Care Provider [place] Shivani Unavailable Encounter Details Date Type Department Care Team Description 11/17/[address] - [facility] YENNI CONVERSION Provider, Histor ical Social [...] 12:00 AM Resu lts for this ORDER ARC WELDER APPRENTICE procedure are i n the results section. documented in this encounter Results US Miscellaneous US Order (07/14/2000 12:00 AM ARC WELDER APPRENTICE) Anatomical Region Laterality Modality Other Specimen (Source) Anatomical Location Collection Method / Collectio n Time Received Time / Laterality Volume Narrative 07/14/2000 12:00 AM ARC WELDER APPRENTICE See Historical Hospital Medical Record f or documentation Procedure Note Provider, Historical - 11/17/2020Formatt ing of this note might be different from the original. See Historical Hospital Medical Record f or documentation Historical Provider IMG US ORDERABLES documented in this encounter Visit Diagnoses Not on filedocumented in this encounter Care Teams Junior Qa Analyst Relationship Specialty Start Date End Date Lina Meléndez PCP - General Internal Medicine 12/26/14 [facility] [address] [place], [place] [phone] Rhoda Sarabia I Conveyor System Operator Dietitian, Registered 02/20/[address] [place] [phone] documented as of this encounter
--- OUTSIDE RECORDS SUMMARY | 2022-05-27 17:49 | XMS_ITS | Encounter Summary ---
:1945 Author Organization [place] Address [address] [place] [address] Care Team Providers Name Role Phone Lina Meléndez Primary Care Provider Rhoda Sarabia I Unavailable Encounter Details Date Type Department Care Team Description 01/04/2016 [facility] Provider, [facility] Information Management [address] [facility] [address] [place] [address] Social History Tobacco Use Types Packs/Day Years Used Date Smoking Tobacco: Never Assessed Sex Assigned at Date Recorded Female 02/24/2020 11:40 AM CDT documented as of this encounter Plan of Treatment Not on filedocumented as of this encounter Visit Diagnoses Not on filedocumented in this encounter Care Teams Manager Stylist Relationship Specialty Start Date End Date Lina Meléndez PCP - General Internal Medicine 12/26/14 [facility] [address] [place] [address] Rhoda Sarabia I Hospital Medical Assistant Dietitian, Registered 02/20/[address] [address] documented as of this encounter
--- OUTSIDE RECORDS SUMMARY | 2022-05-27 17:49 | XMS_ITS | Encounter Summary ---
:1945 Author Organization [place] Address [address] [place] [address] Care Team Providers Name Role Phone Lina Meléndez Primary Care Provider Rhoda Sarabia I Unavailable Encounter Details Date Type Department Care Team Description 11/17/2020 Records - [facility] YENNI CONVERSION Provider, Histor ical Social History [...] on filedocumented in this encounter Care Teams Medical Typist Relationship Specialty Start Date End Date Lina Meléndez PCP - General Internal Medicine 12/26/14 [facility] [address] [place] [address] Rhoda Sarabia I Thread Winder Dietitian, Registered 02/20/[address] [place] [address] documented as of this encounter
--- OUTSIDE RECORDS SUMMARY | 2022-05-27 17:49 | XMS_ITS | Encounter Summary ---
:1945 Author Organization [place] Address [address] [place] [address] Care Team Providers Name Role Phone Unavailable Primary Care Provider Unavailable Encounter Details Date Type Department Care Team Description 12/25/2014 Orders Only [facility] Zeinab Meléndez Dyspnea on exertion [facility] Respiratory [facility] [place] (Primary Dx) Therapy [address] [facility] [address] [place] [address] [phone] Social History Tobacco Use Types Packs/Day Years Used Date Smoking Tobacco: Never Assessed Sex Assigned at Date Recorded Female 02/24/2020 11:40 AM CDT documented as of this encounter Plan of Treatment Not on filedocumented as of this encounter Visit Diagnoses Diagnosis Dyspnea on exertion - Primary Other dyspnea and respiratory abnormalit y documented in this encounter
--- OUTSIDE RECORDS SUMMARY | 2022-05-27 17:49 | XMS_ITS | Encounter Summary ---
:1945 Author Organization [facility] Address [address] [place] [address] Care Team Providers Name Role Phone Coleman Dye MD Primary Care Provider Unavailable Encounter Details Date Type Department Care Team Description 02/02/2004 [facility] Conversion Only OTHER CONVERSION [address] [place] [address] Social History Tobacco Use Types Packs/Day Years Used Date Smoking Tobacco: Never Assessed Sex Assigned at Date Recorded Not on file documented as of this encounter Plan of Treatment Not on filedocumented as of this encounter Visit Diagnoses Not on filedocumented in this encounter Care Teams Producer Assistant Relationship Specialty Start Date End Date Coleman Dye MD PCP - General 09/27/1012/19 documented as of this encounter
--- OUTSIDE RECORDS SUMMARY | 2022-05-27 17:49 | XMS_ITS | Encounter Summary ---
:1945 Author Organization [place] Address [address] [place] [address] Care Team Providers Name Role Phone Lina [...] filedocumented in this encounter Care Teams Food Checkers And Cashiers Supervisor Relationship Specialty Start Date End Date Lina Meléndez PCP - General Internal Medicine 12/26/14 [facility] [address] [place] [address] Rhoda Sarabia I Fingerprinter Dietitian, Registered 02/20/[address] [address] documented as of this encounter
--- OUTSIDE RECORDS SUMMARY | 2022-05-27 17:49 | XMS_ITS | Encounter Summary ---
:1945 Author Organization [place] Address [address] [place] [address] Care Team Providers Name Role Phone Lina Meléndez Primary Care Provider Rhoda Sarabia I Unavailable Encounter Details Date Type Department Care Team Description 11/22/2020 Records - [facility] YENNI [...] AM Re sults for this STEROID INJECTION ENVIRONMENTAL HEALTH AIDE procedure are in the results section. documented in this encounter Results IR Lumbar Epidural Steroid Injection (07/28/2006 12:00 AM ENVIRONMENTAL HEALTH AIDE) Anatomical Region Laterality Modality Spine Other Specimen (Source) Anatomical Location Collection Method / Collectio n Time Received Time / Laterality Volume Narrative 07/28/2006 12:00 AM ENVIRONMENTAL HEALTH AIDE See Historical Hospital Medical Record f or documentation Procedure Note Provider, Historical - 11/22/2020Formatt ing of this note might be different from the original. See Historical Hospital Medical Record f or documentation Historical Provider IMG IR ORDERABLES documented in this encounter Visit Diagnoses Not on filedocumented in this encounter Care Teams Pharmacy Clinical Specialist Relationship Specialty Start Date End Date Lina Meléndez PCP - General Internal Medicine 12/26/14 [facility] [address] [place] [address] Rhoda Sarabia I Concrete Mixing Plant Superintendent Dietitian, Registered 02/20/[address] [address] documented as of this encounter
--- OUTSIDE RECORDS SUMMARY | 2022-05-27 17:49 | XMS_ITS | Encounter Summary ---
:1945 Author Organization [place] Address [address] [place] [address] Care Team Providers Name Role Phone Lina Meléndez Primary Care Provider [place]iawas[place]Rhoda noe Shivani Unavailable Encounter Details Date Type Department Care Team Description 11/22/2020 Records - [facility] YENNI CONVERSION Provider, Histor ical [...] filedocumented in this encounter Care Teams Rn Prior Authorization Relationship Specialty Start Date End Date Lina Meléndez PCP - General Internal Medicine 12/26/14 [facility] [address] [place] [address] Rhoda Sarabia I Tie Hacker Dietitian, Registered 02/20/20 290 [facility] [address] [place] [address] documented as of this encounter
--- OUTSIDE RECORDS SUMMARY | 2022-05-27 17:49 | XMS_ITS | Encounter Summary ---
:1945 Author Organization [facility] Address [address] [place] [address] Care Team Providers Name Role Phone Unassigned, Provider Primary Care Provider Unavailable Encounter Details Date Type Department Care Team Description 02/02/2004 - Hospital Encounter Catholic Navneet Campos MD [address] [facility] [address] [place] [phone] 02/06/2004 [id number] Navneet Campos MD [address] [facility] [address] [place] [phone] [place] [id number] [facility] [place] [address] Social History Tobacco Use Types Packs/Day Years Used Date Smoking Tobacco: Never Assessed Sex Assigned at Date Recorded Not on file documented as of this encounter Discharge Summaries Navneet Campos MD - 02/05/2004 12:01 AM CDT Discharge Summaries signed by Navneet Campos MD at 02/06/04 0752 Author: Navneet Campos MD Service: (none) Author Type: Physician Filed: 10/14/10 9237 Note Time: 02/05/04 1645 Status: Signed Hub Lead: Navneet Campos MD (Physician) NAME: MARYAM CORTEZ MR: [id number] ACCT: [id number] AUTHENTICATING CLINICIAN: NAVNEET CAMPOS MD JOB: [id number] HOSPITAL DISCHARGE SUMMARY DATE OF ADMISSION: 02/02/04. [...] She may shower but may not bathe. PRD:[id number] C: 02/05/04 17:33 DOCUMENT: [id number] documented in this encounter Procedure Notes Navneet Campos MD - 02/02/2004 12:01 AM CDT OR Surgeon signed by Navneet Campos MD at 02/05/04 1613 Author: Navneet Campos MD Service: (none) Author Type: Physician Filed: 10/14/10 6121 Note Time: 02/02/04 1402 Status: Signed Hub Lead: Navneet Campos MD (Physician) NAME: MARYAM CORTEZ MR: [id number] ACCT: [id number] AUTHENTICATING CLINICIAN: NAVNEET CAMPOS MD JOB: [id number] OPERATIVE REPORT DATE OF OPERATION: 02/02/2004 INDICATIONS FOR PROCEDURE: : 1945 Please see patient's chart. PREOPERATIVE DIAGNOSIS: Degenerative joint disease, right knee. POSTOPERATIVE DIAGNOSIS: Degenerative joint disease, right knee. PROCEDURE PERFORMED: Right total knee arthroplasty with [employer] cemented components, #7 femur, #7 tibia, #7 patella, 8 mm spacer. SURGEON: Navneet Campos MD STUDIO ASSISTANT: MARTIR Gallo ANESTHESIA: Subarachnoid block. TOURNIQUET TIME: [...] the postanesthesia recovery area in satisfactory condition. PRD:[id number] C: 02/03/04 08:16 DOCUMENT: [id number] documented in this encounter Miscellaneous Notes Miscellaneous [...] Date Principal: TOTAL KNEE REPLACEMENT NAVNEET CAMPOS [id number] 81.54 Provider2: Provider3: LUIS VILLALPANDO documented in [...] Bedside Glucose Monitor (02/06/2004 6:18 AM CDT) P athologist Signature Bedside Blood 173 mg/dL HP [...] Bedside Glucose Monitor (02/05/2004 5:09 PM CDT) P athologist Signature Bedside Blood 180 mg/dL HP [...] Navneet Campos MD LAB_1 Performing Organization Address [facility] Phon e Number HP CONVERSION Bedside Glucose Monitor (02/05/2004 7:10 AM CDT) P athologist Signature Bedside Blood 153 mg/dL HP [...] Navneet Campos MD LAB_1 Performing Organization Address City/[facility] Code Phon e Number HP CONVERSION [...] Navneet Campos MD LAB_1 Performing Organization Address City/[facility] Code Phon e Number HP CONVERSION [...] Navneet Campos MD LAB_1 Performing Organization Address [facility] Code Phon e Number HP CONVERSION Bedside Glucose Monitor (02/04/2004 11:56 AM CDT) P athologist Signature Bedside Blood 188 mg/dL HP [...] Navneet Campos MD LAB_1 Performing Organization Address [facility] Phon e Number HP CONVERSION ALT (SGPT) (02/04/2004 11:45 AM CDT) [facility] Method Time Signature Alanine 31 0 - 65 HP CONVERSION Aminotransferase U/L Specimen (Source) Anatomical Collection Method Collection Time Re ceived Time Location / / Volume Laterality 02/04/2004 11:45 AM CDT Navneet Campos MD LAB_1 Performing Organization Address [facility] Code Phon e Number HP CONVERSION Bedside Glucose Monitor (02/04/2004 7:32 AM CDT) P athologist Signature Bedside Blood 246 mg/dL HP [...] Navneet Campos MD LAB_1 Performing Organization Address [facility] Phon e Number HP CONVERSION (ABNORMAL) Hemoglobin, Blood (02/04/2004 7:15 AM CDT) P athologist Signature Hemoglobin 9.5 (L) 11.8 - 15.5 HP CONVERSION gm/dL Specimen (Source) Anatomical Collection Method Collection Time Re ceived Time Location / / Volume Laterality 02/04/2004 7:15 AM CDT Navneet Campos MD LAB_1 Performing Organization Address [facility] Phon e Number HP CONVERSION Electrolytes (NA, K, CL, Bicarb) (02/04/2004 7:15 AM CDT) athologist Signature Sodium 137 137 - 147 HP CONVERSION meq/L Potassium 4.6 3.5 - 5.2 HP CONVERSION meq/L Chloride 102 98 - 110 HP CONVERSION meq/L Bicarbonate 27 23 - 33 HP CONVERSION mmol/L Specimen (Source) Anatomical Collection Method Collection Time Re ceived Time Location / / Volume Laterality 02/04/2004 7:15 AM CDT Keyana Emery MD LAB_1 Performing Organization Address [facility] Phon e Number HP CONVERSION Creatinine / GFR (02/04/2004 7:15 AM CDT) athologist Signature Creatinine 0.7 0.5 - 1.5 HP CONVERSION Serum mg/dL Specimen (Source) Anatomical Collection Method Collection Time Re ceived Time Location / / Volume Laterality 02/04/2004 7:15 AM CDT Keyana Emery MD LAB_1 Performing Organization Address [facility] Phon e Number HP CONVERSION ECG 12 [...] MD PN ECG ORDERABLES Performing Organization Address [facility] Phon e Number HP CONVERSION Bedside Glucose [...] Bedside Glucose Monitor (02/03/2004 5:17 PM CDT) athologist Signature Bedside Blood 108 mg/dL HP [...] Bedside Glucose Monitor (02/03/2004 11:36 AM CDT) athologist Signature Bedside Blood 239 mg/dL HP [...] Navneet Campos MD LAB_1 Performing Organization Address [facility] Phon e Number HP CONVERSION (ABNORMAL) Hemoglobin, Blood (02/03/2004 7:25 AM CDT) athologist Signature Hemoglobin 9.6 (L) 11.8 - 15.5 HP CONVERSION gm/dL Specimen (Source) Anatomical Collection Method Collection Time Re ceived Time Location / / Volume Laterality 02/03/2004 7:25 AM CDT Navneet Campos MD LAB_1 Performing Organization Address [facility] Phon e Number HP CONVERSION Bedside Glucose [...] Navneet Campos MD LAB_1 Performing Organization Address [facility] Code Phon e Number HP CONVERSION Troponin I (02/03/2004 2:46 AM CDT) athologist Signature TROPONIN I <0.1 0.00 - 0.30 HP CONVERSION ng/mL Comment: Cardiac Profile Specimen (Source) Anatomical Collection Method Collection Time Re ceived Time Location / / Volume Laterality 02/03/2004 2:46 AM CDT Roseann Chinchilla MD LAB_1 Performing Organization Address [facility] Phon e Number HP CONVERSION Myoglobin (02/03/2004 2:46 AM CDT) athologist Signature Myoglobulin 45 10 - 92 HP CONVERSION ng/mL Comment: Cardiac Profile Specimen (Source) Anatomical Collection Method Collection Time Re ceived Time Location / / Volume Laterality 02/03/2004 2:46 AM CDT Roseann Chinchilla MD LAB_1 Performing Organization Address [facility] Phon e Number HP CONVERSION Troponin I (02/02/2004 10:50 PM CDT) P athologist Signature TROPONIN I <0.1 0.00 - 0.30 HP CONVERSION ng/mL Comment: Cardiac Profile Specimen (Source) Anatomical Collection Method Collection Time Re ceived Time Location / / Volume Laterality 02/02/2004 10:50 PM CDT Roseann Chinchilla MD LAB_1 Performing Organization Address [facility] Phon e Number HP CONVERSION Myoglobin (02/02/2004 10:50 PM CDT) P athologist Signature Myoglobulin 45 10 - 92 HP CONVERSION ng/mL Comment: Cardiac Profile Specimen (Source) Anatomical Collection Method Collection Time Re ceived Time Location / / Volume Laterality 02/02/2004 10:50 PM CDT Roseann Chinchilla MD LAB_1 Performing Organization Address [facility] Phon e Number HP CONVERSION Bedside Glucose [...] Navneet Campos MD LAB_1 Performing Organization Address [facility] Phon e Number HP CONVERSION ECG 12 [...] MD PN ECG ORDERABLES Performing Organization Address City/[facility]/ZIP [facility] Phon e Number HP CONVERSION Cardiac Marker Profile (02/02/2004 9:15 PM CDT) P athologist Signature Card 0 Done No normal [...] Roseann Chinchilla MD LAB_1 Performing Organization Address City/[facility] Code Phon e Number HP CONVERSION Troponin I (02/02/2004 9:15 PM CDT) athologist Signature TROPONIN I <0.1 0.00 - 0.30 HP CONVERSION ng/mL Comment: Cardiac Profile Specimen (Source) Anatomical Collection Method Collection Time Re ceived Time Location / / Volume Laterality 02/02/2004 9:15 PM CDT Roseann Chinchilla MD LAB_1 Performing Organization Address City/[facility] Phon e Number HP CONVERSION Myoglobin (02/02/2004 9:15 PM CDT) athologist Signature Myoglobulin 46 10 - 92 HP CONVERSION ng/mL Comment: Cardiac Profile Specimen (Source) Anatomical Collection Method Collection Time Re ceived Time Location / / Volume Laterality 02/02/2004 9:15 PM CDT Roseann Chinchilla MD LAB_1 Performing Organization Address [facility] Code Phon e Number HP CONVERSION CK, Total (02/02/2004 9:15 PM CDT) athologist Signature Creatine Kinase 83 0 - 225 HP CONVERSION U/L Comment: Cardiac Profile Specimen (Source) Anatomical Collection Method Collection Time Re ceived Time Location / / Volume Laterality 02/02/2004 9:15 PM CDT Roseann Chinchilla MD LAB_1 Performing Organization Address City/[facility]/ZIP Code Phon e Number HP CONVERSION Bedside [...] CONVERSION Pathology Report (02/02/2004 3:40 PM CDT) [facility] Method Time Signature Surgical SEE TEXT No normal HP CONVERSION Pathology range Comment: Patient: MARYAM CORTEZ ?S URGICAL PATHOLOGY REPORT Pathology # ??[id number] ?Date Obtained: ? Date Received: DIAGNOSIS: ?Severe degenerative arthritis, bon e and cartilage, designated right tibia. ?Coleman Lr M.D. ?(electronic signature) TRH/TRH/kmr Date of Report: 02/03/04 Pathology # ??[id number] ?Date Obtained: ? Date Received: ORGAN/TISSUE SITE: [...] Navneet Campos MD LAB_1 Performing Organization Address City/[facility]/ZIP Code Phon e Number HP CONVERSION Bedside [...] Navneet Campos MD LAB_1 Performing Organization Address City/[facility] Phon e Number HP CONVERSION XR Knee [...] surgical nahomy and drains. No fracture s. Alina [id number] Dictating EVE SMITH Radiologist Narrative 02/02/2004 2:25 PM CDT HISTORY: ??DJD. COMPARISON: ??None. Procedure Note Eve Schumacher MD - 09/01/2016Format ting of this note might be different from the original. HISTORY: DJD. COMPARISON: None. IMPRESSION : Two intraoperative portable views of t he right knee showing well aligned cemented total knee prosthesis with overlying surgical nahomy and drains. No fracture sMireille Fuller [id number] Dictating EVE SMITH Radiologist Navneet Campos MD RAD GD Bedside [...] on filedocumented in this encounter Care Teams Etl Tester Relationship Specialty Start Date End Date Unassigned, Provider PCP - General 08/26/00 09/26/[address] [place] [address] documented as of this encounter
--- OUTSIDE RECORDS SUMMARY | 2022-05-27 17:49 | XMS_ITS | Encounter Summary ---
:1945 Author Organization [facility] Address [address] [place] [address] Care Team Providers Name Role Phone Lina [...] on filedocumented in this encounter Care Teams Community Organizer Relationship Specialty Start Date End Date Lina Meléndez PCP - General Internal Medicine 12/26/14 [facility] [address] [place] [address] Rhoda Sarabia I Registry Np Dietitian, Registered 02/20/[address] [id number] documented as of this encounter
--- OUTSIDE RECORDS SUMMARY | 2022-05-27 17:49 | XMS_ITS | Encounter Summary ---
:1945 Author Organization [facility] Address [address] [place] [address]. [place] [address] Care Team Providers Name Role Phone Unavailable Primary Care Provider Unavailable Encounter Details Date Type Department Care Team Description 08/12/2009 Operative Report [facility] Yan, (Summer Analyst) [facility] MD Noy Results [facility] [address] [place] [address] Social History Tobacco Use Types Packs/Day Years Used Date Smoking Tobacco: Never Assessed Sex Assigned at Date Recorded Female 02/24/2020 11:40 AM CDT documented as of this encounter Progress Notes Noy Mata MD - 10/13/2009 10:26 AM CDT FINAL PRIMARY SURGEON: Asim Flores MD 1ST EMERGENCY ROOM NURSE: Noy Mata MD PREOPERATIVE DIAGNOSIS: Stress incontinence. [...] prepped and draped in the regular fashion.A 16-Lao Sims catheter was placed into her bladder [...] [facility] condition. Electronically signed on 10/13/2009 10:25 by NOY MATA MD MT: [id number] Name: MARYAM CORTEZ MRN: [id number] Account: [id number] : 1945 Procedure Date: 08/12/2009 Document: [id number] documented in this encounter Plan of Treatment Not on filedocumented as of this encounter Visit Diagnoses Not on filedocumented in this encounter
--- OUTSIDE RECORDS SUMMARY | 2022-05-27 17:50 | XMS_ITS | Encounter Summary ---
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 [facility] Radiation Oncology Procedures Prior Auth Rad Tx [place] RADTN [place] DEL >=[address] COMPLEX [address] [place] [address] [address] [place] [address] Referral ID Status Reason Start Date Expiration Date Visits V isits Requested Authorized [id number] Authorized 02/08/2022 01/26/2023 19 19 Encounter Details Date Type Department Care Team Description 02/18/2022 Hospital Encounter Department of Radiation Marilyn Dobson I., [place]cology in [place] [address] [facility] [address] [place] [address] [phone] Social History Tobacco Use Types Packs/Day Years [...] more drinks on one Never 02/12/2022 occasion? Social Isolation Answer Date Recorded In a typical week, how many times do you Once a week 02/12/2022 talk on the phone with family, friends, or neighbors? How often do you get together with friends Once a week 02/12/2022 or relatives? How often do you attend sikh or confucianist More than 4 time s per year 02/12/2022 services? Do you belong to any clubs or organizations Yes 02/12/2022 such as sikh groups, unions, fraternal or athletic groups, or [...] place to sleep or slept in a longterm (including now)? Education Answer Date Recorded What [...]
--- OUTSIDE RECORDS SUMMARY | 2022-05-27 17:50 | XMS_ITS | Encounter Summary ---
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 [facility] Radiation Oncology Procedures Prior Auth Rad Tx [place] RADTN TX DEL >=[address]EV COMPLEX [address] [place] [address] [address] [facility] [place] [address] Referral ID Status Reason Start Date Expiration Date Visits V isits Requested Authorized [id number] Authorized 02/08/2022 01/26/2023 19 19 Encounter Details Date Type Department Care Team Description 02/14/2022 Hospital Encounter Department of Radiation Marilyn Dobson I., Oncology in [place] [address] [facility] [address] [place] [address] [phone] Social History Tobacco Use Types Packs/Day Years [...] or relatives? How often do you attend mandaen or anglican More than 4 time s per year 02/12/2022 services? Do you belong to any clubs or organizations Yes 02/12/2022 such as mandaen groups, unions, fraternal or athletic groups, or [...] or slept in a fpc (including now)? Education Answer Date Recorded What [...]
--- OUTSIDE RECORDS SUMMARY | 2022-05-27 17:50 | XMS_ITS | Encounter Summary ---
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 T Radiation Oncology Procedures Prior Auth Rad Tx [place] RADTN TX DEL >=1 MEV COMPLEX [address] [place] [address] [address] [facility] [address] Referral ID Status Reason Start Date Expiration Date Visits V isits Requested Authorized [id number] Authorized 02/08/2022 01/26/2023 19 19 Encounter Details Date Type Department Care Team Description 02/15/2022 Hospital Encounter Department of Radiation Marilyn Dobson I., [place]cology [place] [address] [facility] [address] [place] [address] [phone] Social History Tobacco Use Types Packs/Day Years [...] or relatives? How often do you attend jewish or pentecostal More than 4 time s per year 02/12/2022 services? Do you belong to any clubs or organizations Yes 02/12/2022 such as jewish groups, unions, fraternal or athletic groups, or [...] place to sleep or slept in a penitentiary (including now)? Education Answer Date Recorded What [...]
--- OUTSIDE RECORDS SUMMARY | 2022-05-27 17:50 | XMS_ITS | Encounter Summary ---
:1945 Author Organization [facility] Address [address] [place] [address] Care Team Providers Name Role Phone Unavailable Primary Care Provider Unavailable Reason for Visit Reason Comments Med Refill Encounter Details Date Type Department Care Team Description 03/16/2022 Refill Division of Nephrology and Jessica, Chano Santos Jr., Med Refill Hypertension in [place] [address] [address] [facility] [address] [place] [address] [place] [address] [phone] Social History Tobacco Use Types Packs/Day Years [...] or relatives? How often do you attend christianity or nondenominational More than 4 time s per year 02/12/2022 services? Do you belong to any clubs or organizations Yes 02/12/2022 such as christianity groups, unions, fraternal or athletic groups, or [...] to pay for the very basics like [employer] hat hard 02/12/2022 food, housing, medical care, [...]
--- OUTSIDE RECORDS SUMMARY | 2022-05-27 17:50 | XMS_ITS | Encounter Summary ---
:1945 Author Organization [facility] Address [address] [place] [address] Care Team Providers Name Role Phone Unavailable Primary Care Provider Unavailable Encounter Details Date Type Department Care Team Description 02/09/2022 Clinical Communication Department of Katy Dobson Radiation Oncology in [place] [facility] [address] [facility] [address] [place] [phone] Social History Tobacco Use Types Packs/Day Years [...] How often do you attend muslim or pentecostalism More than 4 time s per year [...] place to sleep or slept in a retirement (including now)? Sex Assigned at Date Recorded [...]
--- OUTSIDE RECORDS SUMMARY | 2022-05-27 17:50 | XMS_ITS ---
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
--- OUTSIDE RECORDS SUMMARY | 2022-05-27 17:50 | XMS_ITS | Encounter Summary ---
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 [facility] Radiation Oncology Procedures Prior Auth Rad Tx [place] RADTN TX DEL >=1 MEV COMPLEX [address] [place] [address] [address] [facility] [place] [address] Referral ID Status Reason Start Date Expiration Date Visits V isits Requested Authorized [id number] Authorized 02/08/2022 01/26/2023 19 19 Encounter Details Date Type Department Care Team Description 02/16/2022 Hospital Encounter Department of Radiation Marilyn Dobson I., [place]cology [place] [address] [facility] [address] [place] [address] [phone] Social History Tobacco Use Types Packs/Day Years [...] or relatives? How often do you attend caodaism or mosque More than 4 time s per year 02/12/2022 services? Do you belong to any clubs or organizations Yes 02/12/2022 such as caodaism groups, unions, fraternal or athletic groups, or [...] place to sleep or slept in a [place] (including now)? Education Answer Date Recorded What [...]
--- OUTSIDE RECORDS SUMMARY | 2022-05-27 17:50 | XMS_ITS | Clinical Summary ---
:1945 Author Organization [facility] Address [address] [place] [address] Care Team Providers Name Role Phone Unavailable Primary Care Provider Unavailable Source Comments Patient records contain information from all sites at [facility]. For routine questions regarding patient records, call [phone] during business hours, M-F 8:00 AM - 5:00 PM Central Time. Record requests for emergency care only can be directed to [phone] at any time.[facility] Allergies Active Allergy Reactions Severity Noted [...] 12/18/2015 Medications Medication Sig Dispensed Refills Start Date End Date Status atorvastatin Take 10 mg by 0 05/23/2016 Ac tive (LIPITOR) 10 mg mouth at bedtime. tablet B complex-vitamin Take 1 capsule by 0 Active (SUPER B-50) capsule mouth daily. cholecalciferol Take 3,000 Units 0 Active (VITAMIN D3) 1,000 by mouth daily. Unit tablet clopidogrel (PLAVIX) Take 75 mg by 0 05/23/2016 Active 75 mg tablet mouth daily. diazePAM (VALIUM) 2 Take 2 mg by 0 12/08/2016 Active mg tablet mouth as needed. Very limited usage fluticasone (FLONASE) Administer 2 0 Active 50 mcg/actuation sprays into nasal spray affected nostril(s) at bedtime. BASAGLAR KWIKPEN Inject as 0 12/21/2017 Ac tive U-100 INSULIN 100 directed daily. unit/mL (3 mL) injection HUMALOG KWIKPEN Inject as 0 02/17/2018 Act verena INSULIN 100 unit/mL directed daily. injection magnesium oxide 400 Take 4 tablets by 0 12/15/2015 Active mg capsule mouth daily. metFORMIN Take 500 mg by 0 01/31/2009 Acti ve (GLUCOPHAGE) 500 mg mouth 2 (two) tablet times a day. vit Take 1 capsule by 0 01/31/2009 A ctive C/E/Zn/coppr/lutein/z mouth daily. eaxan (PRESERVISION AREDS-2 ORAL) pantoprazole Take 40 mg by 0 Act verena (PROTONIX) 40 mg EC mouth daily. tablet alendronate (FOSAMAX) 70 mg once a 0 12/20/2021 Active 70 mg tablet week. Every 7 days anastrozole Take 1 mg by 0 02/03/2022 Acti ve (ARIMIDEX) 1 mg mouth daily. tablet Qvar RediHaler 80 Inhale 2 puffs 2 0 01/18/2022 Active mcg/actuation inhaler (two) times a day. betamethasone Apply 1 0 12/04/2019 Activ e dipropionate 0.05 % application cream topically 2 (two) times a day. albuterol 90 Inhale 2-4 puffs 0 12/20/2021 Active mcg/actuation inhaler as needed. clindamycin (CLEOCIN Apply 1 0 12/20/2021 Active T) 1 % external application solution topically 2 (two) times a day. clobetasoL (TEMOVATE) Apply 1 0 12/20/2021 Active 0.05 % ointment application topically 5 (five) times a week. clopidogreL (PLAVIX) Take 75 mg by 0 12/20/2021 Active 75 mg tablet mouth daily. diazePAM (VALIUM) 2 Take 2 mg by 0 12/20/2021 Active mg tablet mouth daily. As needed flash glucose 0 12/31/2021 Activ e scanning reader (FREESTYLE KYLIE) misc flash glucose sensor 0 12/31/2021 Active (FREESTYLE KYLIE) kit fluticasone Administer 2 0 12/20/2021 Acti ve propionate (FLONASE) sprays into 50 mcg/actuation nostril(s) 2 nasal spray (two) times a day. gabapentin Take 300 mg by 0 12/20/2021 Act verena (NEURONTIN) 300 mg mouth at bedtime. capsule insulin aspart U-100 .tidac 0 12/28/2021 Active (NovoLOG) 100 unit/mL injection omeprazole (PriLOSEC) Take 20 mg by 0 12/20/[address] capsule mouth daily. magnesium oxide Take 600 mg by 0 12/20/2021 Active (MAG-OX) 400 mg mouth daily. 400 (241.3 mg magnesium) in the AM, 200 in tablet the PM ondansetron (ZOFRAN) Take 4 mg by 0 07/10/2019 Active 4 mg tablet mouth every 8 (eight) hours as needed. timolol (TIMOPTIC) Administer 1 drop 0 02/03/2022 Active 0.5 % ophthalmic into both eyes solution daily. zolpidem (AMBIEN) 5 Take 5 mg by 0 11/21/2021 Active mg tablet mouth at bedtime as needed. valACYclovir Take 500 mg by 0 12/06/2021 A ctive (VALTREX) 500 mg mouth 2 (two) tablet times a day. acetaminophen Take 1,000 mg by 0 07/16/2019 Active (TYLENOL) 500 mg mouth. tablet biotin 1 mg tablet Take 5,000 mg by 0 Active mouth daily. coenzyme Q10 (CO Take 10 mg by 0 Active Q-10) 10 mg capsule mouth daily. calcium Take 1 tablet by 0 Act verena carbonate-vitamin D3 mouth daily with 625 mg (250 mg breakfast. calcium)-3.125 mcg (125 Unit) per tablet calcium Chew 600 mg 0 Active carbonate-vitamin D3 daily. (Calcium 600 with Vitamin D3) 600 mg-10 mcg (400 unit) tablet,chewable carvediloL (COREG) Take 1 tablet 180 tablet 3 03/17/202203/17 Active 6.25 mg tablet (6.25 mg total) by mouth 2 (two) times a day with meals. 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 from Last 3 Months Immunizations Name Administration Dates Next Due SARS-COV-2 (COVID-19) - PFIZER (12 years or older) , 07/14/2020 Family [...] or relatives? How often do you attend buddhist or adventism More than 4 time s per year 02/12/2022 services? Do you belong to any clubs or organizations Yes 02/12/2022 such as buddhist groups, unions, fraternal or athletic groups, or [...] or slept in a alf (including now)? Education Answer Date Recorded What [...] 06/26/2021 PHQ-2) Fall Risk Screen (Annual) 06/26/2021 Office Visit for Blood Pressure 05/11/2022 02/08/2022 Check / Re-check Mammogram 12/21/2022 12/21/2021, 11/05/2021, 11/02/2021, Additional history exists DTaP,Tdap,and Td Vaccines (2 - Td 08/22/2024 08/22/2014, , or Tdap) 01/22/2002, Additional history exists Lipid (Cholesterol) Screening 12/17/2024 12/18/2019 Pneumococcal vaccine (65+ years) Completed 06/07/2018, , 06/10/2010 Zoster Vaccines Completed 10/10/2018, 06/04/2018, 03/11/2009 COVID-19 Vaccine Completed 03/10/2022, 09/22/2021, 03/16/2021, Additional history exists Influenza Vaccine Completed 03/29/2022, 03/31/2021, 03/31/2020, Additional history exists Insurance Payer Benefit Plan / Subscriber ID Effective Dates Phone Addre ss Type Group UCARE UCARE FOR [id number] 2019-Present [phone] [address] [place] [address]
--- OUTSIDE RECORDS SUMMARY | 2022-05-27 17:50 | XMS_ITS | Encounter Summary ---
:1945 Author Organization [facility] Address [address] [place] [address] Care Team Providers Name Role Phone Unavailable Primary Care Provider Unavailable Reason for Visit Appointment Request (Routine) - Closed Specialty Diagnoses / Procedures Referred By Contact Refer red To Contact Radiation Oncology Diagnoses Malignant Neoplasm Of Breast Female Right (HCC) Renea Giles M.D. [address] [place] [address] Referral ID Status Reason Start Date Expiration Date Visits Requ ested Visits Authorized [id number] Closed 01/21/2022 01/21/2023 1 1 Encounter Details Date Type Department Care Team Description 02/03/2022 Hospital Encounter Department of Katy Dobson Neoplasm Radiation Oncology [place] [facility] [place], [address] [place], [place] Female Right (HCC) [address] [facility] [address] (Primary Dx) [place], [place] [phone] [address] (Work) [phone] Social History Tobacco Use Types Packs/Day Years [...] How often do you attend sikh or spiritism More than 4 time s [...] Sig Dispensed Refills Start Date End Date atorvastatin (LIPITOR) Take 10 mg by mouth 0 04/27 10 mg tablet at bedtime. BASAGLAR KWIKPEN U-100 Inject as directed 0 12/21 INSULIN 100 unit/mL (3 daily. mL) injection cholecalciferol (VITAMIN Take 3,000 Units by 0 D3) 1,000 Unit tablet mouth daily. clopidogrel (PLAVIX) 75 Take 75 mg by mouth 0 mg tablet daily. diazePAM (VALIUM) 2 mg Take 2 mg by mouth 0 12/08 tablet as needed. Very limited usage fluticasone (FLONASE) 50 Administer 2 sprays 0 mcg/actuation nasal into affected spray nostril(s) at bedtime. HUMALOG KWIKPEN INSULIN Inject as directed 0 01/25 100 unit/mL injection daily. magnesium oxide 400 mg Take 4 tablets by 0 2015 capsule mouth daily. pantoprazole (PROTONIX) Take 40 mg by mouth 0 40 mg EC tablet daily. vit Take 1 capsule by 0 01/31/2009 C/E/Zn/coppr/lutein/zeax mouth daily. an (PRESERVISION AREDS-2 ORAL) acetaminophen (TYLENOL) Take 1,000 mg by 0 2019 500 mg tablet mouth. albuterol 90 Inhale 2-4 puffs as 0 12/20/2021 mcg/actuation inhaler needed. alendronate (FOSAMAX) 70 70 mg once a week. 0 mg tablet Every 7 days anastrozole (ARIMIDEX) 1 Take 1 mg by mouth 0 04/2022 mg tablet daily. B complex-vitamin (SUPER Take 1 capsule by 0 B-50) capsule mouth daily. betamethasone Apply 1 application 0 12/04/2019 dipropionate 0.05 % topically 2 (two) cream times a day. clindamycin (CLEOCIN T) Apply 1 application 0 [...] 12/31/2021 reader (FREESTYLE KYLIE) [facility] [place] 0 12/31/2021 (FREESTYLE KYLIE) kit fluticasone propionate Administer 2 sprays 0 11/25 (FLONASE) 50 into nostril(s) 2 mcg/actuation nasal (two) times a day. spray gabapentin (NEURONTIN) Take 300 mg by mouth 0 06/ 300 mg capsule at bedtime. insulin aspart U-100 .tidac 0 12/28/2021 (NovoLOG) 100 unit/mL injection magnesium oxide (MAG-OX) Take 600 mg by mouth 0 0 12/20/2021 400 mg (241.3 mg daily. 400 in the magnesium) tablet AM, 200 in the PM metFORMIN (GLUCOPHAGE) Take 500 mg by mouth 0 01/2009 500 mg tablet 2 (two) times a day. omeprazole (PriLOSEC) 20 Take 20 mg by mouth [address] capsule daily. ondansetron (ZOFRAN) 4 Take 4 mg by mouth 0 07/10 mg tablet every 8 (eight) hours as needed. Qvar RediHaler 80 Inhale 2 puffs 2 0 01/18/2022 mcg/actuation inhaler (two) times a day. timolol (TIMOPTIC) 0.5 % Administer 1 drop 0 01/24 ophthalmic solution into both eyes daily. valACYclovir (VALTREX) Take 500 mg by mouth 0 500 mg tablet 2 (two) times a day. zolpidem (AMBIEN) 5 mg Take 5 mg [...] CORE BIOPSY: 1. Invasive ductal carcinoma a. [place] grade: II of III; [place] score: 6 of 9 b. Angio-lymphatic invasion: [...] Breast Ancillary Testing: Performed on prior case ([id number]) a. Hormone Receptors: Estrogen receptor: Positive (98%, [...] have 8 grandchildren. 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 OBJECTIVE BP (!) 162/62 (BP Location: Right [...] face patient care. Signed by: Mariela Patterson P.A.-C., MMireilleSMireille 02/03/2022 4:25 PM CDT [facility] [address] [place] [address] Associated attestation - Katy Dobson M.D. - [...] We discussed various radiation options including an [facility] BR007 study that is randomizingfavorable early stage breast cancer patients to breast radiotherapy vs observation. She is not interested in this study (and we don't quite yet have it open in [place]). We discussed observation given her age and favorable findings as an alternative. We discussed the rationale, risks, side effects and goals of radiation therapy. We discussed the rationale, risks, side effects and adjuvant goals of radiation therapy. We discussed the acute as well as longterm risks, including, but not limited to fatigue, [...] M.D. 02/03/2022 5:52 PM CDT Radiation Oncology [facility] [address] [place] [address] documented in this encounter Miscellaneous Notes Addendum [...]
--- OUTSIDE RECORDS SUMMARY | 2022-05-27 17:50 | XMS_ITS | Encounter Summary ---
:1945 Author Organization [facility] Address [address] [place] [address] Care Team Providers Name Role Phone Unavailable Primary Care Provider Unavailable Reason for Referral Radiation Therapy (Routine) - Authorized Specialty Diagnoses / Procedures Referred By Contact Refer red To Contact Diagnoses Malignant Neoplasm Of Breast Upper Outer Quadrant Female Right (HCC) Katy Dobson M.D. [facility] Procedures Management Visit [address] [place], [place] [address] Referral ID Status Reason Start Date Expiration Date Visits V isits Requested Authorized [id number] Authorized 01/26/2022 01/26/2023 10 10 Reason for Visit Radiation Therapy (Routine) - Authorized Specialty Diagnoses / Procedures Referred By Contact Refer red To Contact Diagnoses Malignant Neoplasm Of Breast Upper Outer Quadrant Female Right (HCC) Kat[facility]son M.D. [facility] Procedures Management Visit [address] [place], [place] [address] Referral ID Status Reason Start Date Expiration Date Visits V isits Requested Authorized [id number] Authorized 01/26/2022 01/26/2023 10 10 Encounter Details Date Type Department Care Team Description 02/18/2022 Hospital Encounter Department of Katy Dobson Neoplasm Radiation Oncology [place] [facility] in [place], [address] [place], [place] Female Right (HCC) [address] [facility] [address] [place] [phone] [address] (Work) [phone] Social History Tobacco Use Types Packs/Day Years [...] or relatives? How often do you attend scientologist or episcopal More than 4 time s per year 02/12/2022 services? Do you belong to any clubs or organizations Yes 02/12/2022 such as scientologist groups, unions, fraternal or athletic groups, or [...] place to sleep or slept in a residential (including now)? Education Answer Date Recorded What [...] scanning 0 12/31/2021 reader (FREESTYLE KYLIE[place] [facility] [place] 0 12/31/2021 (FREESTYLE KYLIE) [...] stage IA (pT1b, cN0, cM0, G2, ER+, [place]+, HER2-) invasive ductal carcinoma of the right breast. She is now undergoing radiation therapy. Treatment Course: 1xBreastR Plan ID Fractions Dose / Fraction (cGy) Dose Treated (cGy) Dose Planned (cGy) First Treatment Last Treatment Elapsed Days [id number] 520 2600 2600 02/14/2022 02/18/2022 4 Course [...] Stage IA (pT1b, cN0, cM0, G2, ER+, NH+, HER2-) invasive ductal carcinoma of the right [...]
--- OUTSIDE RECORDS SUMMARY | 2022-05-27 17:50 | XMS_ITS | Encounter Summary ---
:1945 Author Organization [facility] Address [address] [place] [address] Care Team Providers Name Role Phone Unavailable Primary Care Provider Unavailable Encounter Details Date Type Department Care Team Description 02/08/2022 Clinical Communication Department of Katy Dobson Radiation Oncology in [place], [place] [address] [facility] [address] [place] [id number] [phone] Social History Tobacco Use Types Packs/Day Years [...] How often do you attend holiness or religion More than 4 time s per year [...] a phone call over all. Phone number: [phone] Is it okay to leave a voicemail on answering machine with test results? Yes Pharmacy (if medication related): N/A documented in this encounter Plan of Treatment Not on filedocumented as of this encounter Visit Diagnoses Not on filedocumented in this encounter
--- OUTSIDE RECORDS SUMMARY | 2022-05-27 17:50 | XMS_ITS | Encounter Summary ---
:1945 Author Organization [facility] Address [address] [place] [address] Care Team Providers Name Role Phone Unavailable Primary Care Provider Unavailable Reason for Referral Radiation Therapy (Routine) - Authorized Specialty Diagnoses / Procedures Referred By Contact Refer red To Contact Diagnoses Malignant Neoplasm Of Breast Upper Outer Quadrant Female Right (HCC) Katy Dobson M.D. [facility] Procedures Management Visit [address] [place] [address] Referral ID Status Reason Start Date Expiration Date Visits V isits Requested Authorized [id number] Authorized 01/26/2022 01/26/2023 10 10 Reason for Visit Radiation Therapy (Routine) - Authorized Specialty Diagnoses / Procedures Referred By Contact Refer red To Contact Diagnoses Malignant Neoplasm Of Breast Upper Outer Quadrant Female Right (HCC) Katy Dobson M.D. [facility] Procedures Management Visit [address] [place], [place] [phone] Referral ID Status Reason Start Date Expiration Date Visits V isits Requested Authorized [id number] Authorized 01/26/2022 01/26/2023 10 10 Encounter Details Date Type Department Care Team Description 02/15/2022 Hospital Encounter Department of Katy Dobson Neoplasm Radiation Oncology [place] Of Breast Upper in [place], [address] [place], [place] Female Right (HCC) [address] [facility] [address] [place] [phone] [address] (Work) [phone] Social History Tobacco Use Types Packs/Day Years [...] How often do you attend mosque or scientologist More than 4 time s [...] glucose scanning 0 12/31/2021 reader (FREESTYLE DAJA) [facility] [place] flash glucose sensor 0 12/31/2021 (FREESTYLE DAJA) [...] stage IA (pT1b, cN0, cM0, G2, ER+, [place]+, HER2-) invasive ductal carcinoma of the right breast. She is now undergoing radiation therapy. Treatment Course: 1xBreastR Plan ID Fractions Dose / Fraction (cGy) Dose Treated (cGy) Dose Planned (cGy) First Treatment Last Treatment Elapsed Days [id number] 520 1040 2600 02/14/2022 02/15/2022 1 Course [...] Stage IA (pT1b, cN0, cM0, G2, ER+, [place]+, HER2-) invasive ductal carcinoma of the right [...] week post completion of radiation therapy. Dr. iGles will see patient in follow up care. [...]
--- OUTSIDE RECORDS SUMMARY | 2022-05-27 17:50 | XMS_ITS | Encounter Summary ---
:1945 Author Organization [facility] Address [address] [place] [address] Care Team Providers Name Role Phone Unavailable Primary Care Provider Unavailable Reason for Referral Radiation Therapy (Routine) - Closed Specialty Diagnoses / Procedures Referred By Contact Refer red To Contact Diagnoses Malignant Neoplasm Of Breast Upper Outer Quadrant Female Right (HCC) Katy Dobson M.D. [facility] Procedures Initial Rad Onc Treatment Planning CT Simulation [address] [place], [place] [address] Referral ID Status Reason Start Date Expiration Date Visits Requ ested Visits Authorized [id number] Closed 01/26/2022 01/26/2023 1 1 Reason for Visit Radiation Therapy (Routine) - Closed Specialty Diagnoses / Procedures Referred By Contact Refer red To Contact Diagnoses Malignant Neoplasm Of Breast Upper Outer Quadrant Female Right (HCC) Katy Dobson M.D. [facility] Procedures Initial Rad Onc Treatment Planning CT Simulation [address] [place], [place] [address] Referral ID Status Reason Start Date Expiration Date Visits Requ ested Visits Authorized [id number] Closed 01/26/2022 01/26/2023 1 1 Encounter Details Date Type Department Care Team Description 02/09/2022 Hospital Encounter Department of Katy Dobson Neoplasm Radiation Oncology [place] Of Breast [facility] in [place], [address] [facility] Female Right (HCC) [address] [facility] [address] [place], [place] [phone] [address] (Work) [phone] Social History Tobacco Use Types Packs/Day Years [...] or relatives? How often do you attend yarsani or quaker More than 4 time s per year 02/12/2022 services? Do you belong to any clubs or organizations Yes 02/12/2022 such as yarsani groups, unions, fraternal or athletic groups, or [...] planning. CT images were transferred to the [employer] treatment planning system, after a reference isocenter was determined and marked. Segmentation and treatment planning will take place priorto treatment delivery. Patient set up and imaging was appropriate and completed without incident. Mobile Designer use:No documented in this encounter Plan of [...] Time Received Time / Laterality Volume Narrative [facility] - 02/09/2022 2:33 PM CDT Patricia Balderas R, RTT ? 02/09/2022 ??2:34 PM Initial Rad Onc Treatment Planning CT Si mulation Date/Time: 02/09/2022 2:33 PM Performed by: Katy Dobson M.D. Authorized by: Katy Dobson M.D. Katy Dobson M.D. RADIATION ONCOLOGY ORDERABLE S Performing Organization Address City/State/ZIP Code Phon e Number [place] na documented in this encounter Visit Diagnoses Diagnosis Malignant Neoplasm Of Breast Upper Outer Quadrant Female Right (HCC) documented in this encounter
--- OUTSIDE RECORDS SUMMARY | 2022-05-27 17:50 | XMS_ITS | Encounter Summary ---
:1945 Author Organization [facility] Address [address] [place] [address] Care Team Providers Name Role Phone Unavailable Primary Care Provider Unavailable Reason for Visit Radiation Therapy (Routine) - Authorized Specialty Diagnoses / Procedures Referred By Contact Refer red To Contact Diagnoses Malignant Neoplasm Of Breast Upper Outer Quadrant Female Right (HCC) Katy Dobson M.D. [facility] Radiation Oncology Procedures Prior Auth Rad Tx MA RADTN TX DEL >=[address] COMPLEX [address] [place] [address] [address] [facility] [place] [address] Referral ID Status Reason Start Date Expiration Date Visits V isits Requested Authorized [id number] Authorized 02/08/2022 01/26/2023 19 19 Encounter Details Date Type Department Care Team Description 02/17/2022 Hospital Encounter Department of Radiation Marilyn Dobson I., [place] [address] [facility] [address] [place] [address] [phone] Social History Tobacco Use Types Packs/Day Years [...] or relatives? How often do you attend druze or latter day More than 4 time s per year 02/12/2022 services? Do you belong to any clubs or organizations Yes 02/12/2022 such as druze groups, unions, fraternal or athletic groups, or [...]
--- OUTSIDE RECORDS SUMMARY | 2022-05-27 17:50 | XMS_ITS | Continuity of Care Document ---
:1945 Author Organization [facility] Address [address] [address] [place] [address] Phone Care Team Providers Name Role Phone Unavailable Unavailable Unavailable Allergies, Adverse Reactions, Alerts Substance Reaction Status Criticality polymyxin B Active No Information pramoxine Active No Information POLYMYXIN B SULFATE Active No Informati on bacitracin Active No Information NEOMYCIN SULFATE Active No Information Medications Medication Instructions Dosage Effective Dates Status Comment s (start - stop) MINOCIN (unknown Take one tablet by Not Available - Activ e strength) mouth daily Singulair Unknown Take one tablet by - Active mouth daily Prevacid 30 mg Cap Take one capsule by - Activ e mouth daily TRAZODONE HCL Use as directed Not Available - Active (unknown strength) Avandia unknown Use as directed - Active GLUCOPHAGE Take one tablet by Not Available - Active (unknown strength) mouth two times per day Premarin unknown Use as directed - Active Voltaren unknown Take one tablet by - Active mouth daily GLUCOTROL (unknown Take one tablet by Not Available - Act verena strength) mouth daily Effexor unknown Take 1 tablet by - Active mouth daily Advance Directives Directive Yes / No Effective Date File Name No Information Encounters Encounter Practice Location Reason(s) Diagnoses Date Provider Provide rs Description For Visit Copied on Encounter [facility] No b- No Referring [facility] Information 7-200 Information Provid er: [facility], Endoscopy [facility] [address] [place] MD David Cobian, [address] [place], [place], [address] [id number], [facility], [address]. tel:[phone] tel:[phone] Family History Family Member Type Diagnosis Age At Onset No Information Payers Payer name Insurance type Covered republican ID Authorization(s ) [employer] CI [id number] Social History Type Description Quantity Date Captured Comments Sex Female Smoking Status No Information Chief Complaint And Reason For Visit No Information Reason For Referral Reason For Referral No Information Plan Of Treatment Date Type Action Status No Information History Of Present Illness Encounter Date Complaint History Of Present I llness No Information Functional Status Date Functional Assessment No Information Instructions Date Instruction Additional Informati on No Information Assessments Type Assessment Date No Information Patient Care Teams Name Effective Dates (start - stop) Status M paco No Information
--- OUTSIDE RECORDS SUMMARY | 2022-05-27 17:50 | XMS_ITS | Encounter Summary ---
:1945 Author Organization [facility] Address [address] [place] [address] Care Team Providers Name Role Phone Unavailable Primary Care Provider Unavailable Reason for Visit Reason Comments Radiation Encounter Details Date Type Department Care Team Description 02/18/2022 Documentation Department of Radiation Katy Dobson I., Radiation Oncology in [place] [address] [address] [facility] [[email or web address]] [address] [place] [address] [phone] (Wo rk) Social History Tobacco Use Types [...] or relatives? How often do you attend pentecostal or adventist More than 4 time s per year 02/12/2022 services? Do you belong to any clubs or organizations Yes 02/12/2022 such as pentecostal groups, unions, fraternal or athletic groups, or [...] place to sleep or slept in a snf (including now)? Education Answer Date Recorded What [...] (cGy) First Treatment Last Treatment Elapsed Days [id number] 520 2600 2600 02/14/2022 02/18/2022 4 Course [...] Tejal Guerra R.N., 03/03/2022 4:13 PM CDT [facility] [address] [place] [address] documented in this encounter Plan of Treatment Not on filedocumented as of this encounter Visit Diagnoses Not on filedocumented in this encounter
--- OUTSIDE RECORDS SUMMARY | 2022-05-27 17:50 | XMS_ITS | Encounter Summary ---
:1945 Author Organization [facility] Address [address] [place] [address] Care Team Providers Name Role Phone Unavailable Primary Care Provider Unavailable Reason for Visit Appointment Request (Routine) - Closed Specialty Diagnoses / Procedures Referred By Contact Refer red To Contact Nephrology and Hypertension Referral ID Status Reason Start Date Expiration Date Visits Requ ested Visits Authorized [id number] Closed 01/14/2022 01/14/2023 1 Encounter Details Date Type Department Care Team Description 02/08/2022 External Outreach Division of Jessica, Hypertensi on And Chronic Kidney Disease Stage 1 To 4 (Primary Dx); Nephrology and Joshua Santos Jr., Hyponatremia ; Hypertension in D.O. 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 - 02/08/2022 2:00 PM CDT Referring Provider: No primary care provider on file. [facility] CKD out reach REASON FOR VISIT Follow-up [...] She is still minute string to her pentecostalism, has no troubles with her [id number] exercise regimen nor her requirements for her [...] capsule by mouth daily., Disp: , Rfl: MARIBEL HALEY U-100 INSULIN 100 unit/mL (3 mL) [...]
--- OUTSIDE RECORDS SUMMARY | 2022-05-27 17:51 | XMS_ITS | Encounter Summary ---
:1945 Author Organization [facility] Address [address] [place] [address] Care Team Providers Name Role Phone Unavailable Primary Care Provider Unavailable Reason for Visit Reason Comments Med Refill Encounter Details Date Type Department Care Team Description 02/27/2021 Refill Division of Nephrology and Ana Coleman, Med Refill Hypertension in [place], Ph.D. [address] [place] [address] [place] [address] [phone] Social History Tobacco Use Types Packs/Day Years [...] or relatives? How often do you attend latter day or episcopal More than 4 time s per year 02/12/2022 services? Do you belong to any clubs or organizations Yes 02/12/2022 such as latter day groups, unions, fraternal or athletic groups, or [...]
--- OUTSIDE RECORDS SUMMARY | 2022-05-27 17:51 | XMS_ITS | Encounter Summary ---
:1945 Author Organization [facility] Address [address] [place] [address] Care Team Providers Name Role Phone Unavailable Primary Care Provider Unavailable Reason for Visit Reason Comments Med Refill Encounter Details Date Type Department Care Team Description 02/23/2021 Refill Division of Nephrology and Ana Coleman, Med Refill Hypertension in [place], Ph.D. [address] [place] [address] [place] [address] [phone] Social History Tobacco Use Types Packs/Day Years [...] How often do you attend episcopal or confucianism More than 4 time s per year [...] encounter Miscellaneous Notes Telephone Encounter - Chely Spears, RMireilleN. - 02/26/2021 9:38 AM CDT Refill request for amlodipine denied. Per Dr Joseph's note from December 2020, patient's PCP, Dr Lina Meléndez was going to triturating medications. documented in this encounter Plan of Treatment Not on filedocumented as of this encounter Visit Diagnoses Not on filedocumented in this encounter
--- OUTSIDE RECORDS SUMMARY | 2022-05-27 17:51 | XMS_ITS | Encounter Summary ---
:1945 Author Organization [facility] Address [address] [place] [address] Care Team Providers Name Role Phone Unavailable Primary Care Provider Unavailable Encounter Details Date Type Department Care Team Description 03/11/2021 Orders Only Division of Nephrology and Chano Lopez Hypertension in [place], ., D.O. [place] [address] [facility] [address] [place] [address] [phone] (Wo rk) Social History Tobacco Use Types [...] or relatives? How often do you attend gnosticism or scientology More than 4 time s per year 02/12/2022 services? Do you belong to any clubs or organizations Yes 02/12/2022 such as gnosticism groups, unions, fraternal or athletic groups, or [...] place to sleep or slept in a [facility] (including now)? Sex Assigned at Date Recorded Not on file documented as of this encounter Plan of Treatment Not on filedocumented as of this encounter Visit Diagnoses Not on filedocumented in this encounter
--- OUTSIDE RECORDS SUMMARY | 2022-05-27 17:51 | XMS_ITS | Encounter Summary ---
:1945 Author Organization [facility] Address [address] [place] [address] Care Team Providers Name Role Phone Unavailable Primary Care Provider Unavailable Reason for Visit Reason Comments Follow-up Encounter Details Date Type Department Care Team Description 12/24/2020 Clinical Communication Division of Nephrology Syeda Braswell, Follow-up and Hypertension in [place], [place] [address] [facility] [address] [place] [address] [phone] Social History Tobacco Use Types Packs/Day Years [...] or relatives? How often do you attend religion or yazidism More than 4 time s per year 02/12/2022 services? Do you belong to any clubs or organizations Yes 02/12/2022 such as religion groups, unions, fraternal or athletic groups, or [...] M.D., Ph.D. Telephone Encounter - Syeda Braswell, RLion. - 12/24/2020 3:09 PM CDT SUBJECTIVE CHIEF [...] directions. This patient is seen at the [facility] and the visit notes from 12/22/20 are not yet accessible. PLAN Disposition/Recommendation: I asked her to potato picker her prescriptions and start the cipro. I [...] that her urine culture showed E. Coli ([facility] faxed results) and that it is sensitive to cipro, for her to continue on the same therapy tocomplete 7 days. Thanks! documented in this encounter Plan of Treatment Not on filedocumented as of this encounter Visit Diagnoses Not on filedocumented in this encounter
--- OUTSIDE RECORDS SUMMARY | 2022-05-27 17:51 | XMS_ITS | Encounter Summary ---
:1945 Author Organization [facility] Address [address] [place] [address] Care Team Providers Name Role Phone Unavailable Primary Care Provider Unavailable Reason for Visit Appointment Request (Routine) - Closed Specialty Diagnoses / Procedures Referred By Contact Refer red To Contact Nephrology and Lina Meléndez Hypertension [place] [address] [place] [address] Referral ID Status Reason Start Date Expiration Date Visits Requ ested Visits Authorized [id number] Closed 02/04/2021 02/04/2022 1 1 Encounter Details Date Type Department Care Team Description 03/08/2021 External Outreach Division of Jessica, Hyperti on And Chronic Kidney Disease Stage 1 To 4 (Primary Dx); Nephrology and Joshua Santos Jr., Diabetes Mili litus Type 2 (HCC); Hypertension in D.O. Hyponatremia [place], [place] 200 [facility] [address] [place] [phone] [phone] Social History Tobacco Use Types Packs/Day Years [...] How often do you attend episcopal or muslim More than 4 time s [...] or slept in a penitentiary (including now)? Sex Assigned at Date Recorded Not on file documented as of this encounter Consult Notes Joshua Lopez Jr., D.O. - 03/08/2021 2:00 PM CDT Please see scanned in note under document viewer tab for the [facility] outreach visit from this date. DX: HTN- multiple medicine sensitivities documented in this encounter Plan of Treatment Not on filedocumented as of this encounter Visit Diagnoses Diagnosis Hypertension And Chronic Kidney Disease Stage 1 To 4 - Primary Diabetes Mellitus Type 2 (HCC) Hyponatremia documented in this encounter
--- OUTSIDE RECORDS SUMMARY | 2022-05-27 17:51 | XMS_ITS | Encounter Summary ---
:1945 Author Organization [facility] Address [address] [place] [address] Care Team Providers Name Role Phone Unavailable Primary Care Provider Unavailable Reason for Visit Appointment Request (Routine) - Closed Specialty Diagnoses / Procedures Referred By Contact Refer red To Contact Nephrology and Lina Meléndez Hypertension [place] [address] [place] [address] Referral ID Status Reason Start Date Expiration Date Visits Requ ested Visits Authorized [id number] Closed 12/03/2020 12/03/2021 1 1 Encounter Details Date Type Department Care Team Description 12/22/2020 External Outreach Division of Lynsey Mendez es Mellitus Type 2 (HCC); Nephrology and Amparo Perez, Hypertension Essential Primary Hypertension in Ph.D. [place], [place] [address] [facility] [address] [place] [address] [phone] Social History Tobacco Use Types Packs/Day Years [...] or relatives? How often do you attend temple or jewish More than 4 time s per year 02/12/2022 services? Do you belong to any clubs or organizations Yes 02/12/2022 such as temple groups, unions, fraternal or athletic groups, or [...] or slept in a halfway (including now)? Sex Assigned at Date Recorded Not on file documented as of this encounter Consult Notes Ana Mendez M.D., Ph.D. - 12/22/2020 9:30 AM CDT Please see scanned in note under document viewer tab for the [facility] [place] outreach visit from this date. Addendum: Urine culture shows E.coli which is sensitive to cipro. Continue current antibiotic regimen to complete 7 days. Lachelle Randhawa M.D., Ph.D. documented in this encounter Plan of Treatment Not on filedocumented as of this encounter Visit Diagnoses Diagnosis Diabetes Mellitus Type 2 (HCC) Hypertension Essential Primary documented in this encounter
--- OUTSIDE RECORDS SUMMARY | 2022-05-27 17:51 | XMS_ITS | Encounter Summary ---
:1945 Author Organization [facility] Address [address] [place] [address] Care Team Providers Name Role Phone Unavailable Primary Care Provider Unavailable Encounter Details Date Type Department Care Team Description 03/17/2021 Clinical Communication Division of Nephrology Joshua Lopez and Hypertension in Tom Duke D.O. [place], [place] [address] [facility] [address] [place] [address] [phone] Social History Tobacco Use Types Packs/Day Years [...] How often do you attend mandaen or sabianist More than 4 time s [...] place to sleep or slept in a group home (including now)? Sex Assigned at Date Recorded Not on file documented as of this encounter Miscellaneous Notes Telephone Encounter - Joshua Lopez Jr., D.Dillon. - 03/17/2021 5:09 PM CDT Phone call note: Phoned her regards confusion regards the timing of her stress test and initiation of carvedilol. We discussed again that I would like her to start carvedilol. She will do this under observed conditions at the [facility], due to her episode many years ago [...]
--- OUTSIDE RECORDS SUMMARY | 2022-05-27 17:51 | XMS_ITS | Encounter Summary ---
:1945 Author Organization [facility] Address [address] [place] [address] Care Team Providers Name Role Phone Unavailable Primary Care Provider Unavailable Reason for Visit Appointment Request (Routine) - Closed Specialty Diagnoses / Procedures Referred By Contact Refer red To Contact Nephrology and Hypertension Referral ID Status Reason Start Date Expiration Date Visits Requ ested Visits Authorized [id number] Closed 03/26/2021 03/26/2022 1 1 Encounter Details Date Type Department Care Team Description 03/31/2021 External Outreach Division of Jessica, Hyperti on And Chronic Kidney Disease Stage 1 To 4 (Primary Dx); Nephrology and Joshua Santos Jr., Diabetes Mili litus Type 2 (HCC); [place]ension [place], [place] [address] [facility] [address] [place] [address] [phone] Social History Tobacco Use Types Packs/Day Years [...] How often do you attend orthodox or hindu More than 4 time s [...] or slept in a residential (including now)? Sex Assigned at Date Recorded Not on file documented as of this encounter Progress Notes Joshua Lopez Jr., D.O. - 03/31/2021 1:30 PM CDT Please see scanned in note under document viewer tab for the [facility] [place] outreach visit from this date. documented in this encounter Plan of Treatment Not on filedocumented as of this encounter Visit Diagnoses Diagnosis Hypertension And Chronic Kidney Disease Stage 1 To 4 - Primary Diabetes Mellitus Type 2 (HCC) Hyponatremia documented in this encounter
--- OUTSIDE RECORDS SUMMARY | 2022-05-27 17:51 | XMS_ITS | Encounter Summary ---
:1945 Author Organization [facility] Address [address] [place] [address] Care Team Providers Name Role Phone Unavailable Primary Care Provider Unavailable Reason for Visit Appointment Request (Routine) - Authorized Specialty Diagnoses / Procedures Referred By Contact Refer red To Contact Nephrology and Hypertension Referral ID Status Reason Start Date Expiration Date Visits V isits Requested Authorized [id number] Authorized 11/25/2021 11/25/2022 1 Encounter Details Date Type Department Care Team Description 01/04/2022 External Outreach Division of Juan F Lopez on And Chronic Kidney Disease Stage 1 To 4 (Primary Dx); Nephrology and Joshua Santos Jr., Hyponatremia ; Hypertension in [place].O. Diabetes Mellitus Type 2 (HCC) [place], [place] [address] [facility] [address] [place] [address] [phone] Social History Tobacco Use Types Packs/Day Years [...] or relatives? How often do you attend orthodoxy or yarsanism More than 4 time s per year 02/12/2022 services? Do you belong to any clubs or organizations Yes 02/12/2022 such as orthodoxy groups, unions, fraternal or athletic groups, or [...]
--- OUTSIDE RECORDS SUMMARY | 2022-05-27 17:51 | XMS_ITS | Encounter Summary ---
:1945 Author Organization [facility] Address [address] [place] [address] Care Team Providers Name Role Phone Unavailable Primary Care Provider Unavailable Reason for Referral Outpatient (Routine) - Authorized Specialty Diagnoses / Procedures Referred By Contact Refer red To Contact Radiation Oncology Katy Dobson [facility] [place] [address] [place] [address] Referral ID Status Reason Start Date Expiration Date Visits V isits Requested Authorized [id number] Authorized 01/26/2022 01/26/2023 10 10 Radiation Therapy (Routine) - Authorized Specialty Diagnoses / Procedures Referred By Contact Refer red To Contact Diagnoses Malignant Neoplasm Of Breast Upper Outer Quadrant Female Right (HCC) Katy Dobson M.D. [facility] Procedures Management Visit [address] [place] [address] Referral ID Status Reason Start Date Expiration Date Visits V isits Requested Authorized [id number] Authorized 01/26/2022 01/26/2023 10 10 Radiation Therapy (Routine) - Authorized Specialty Diagnoses / Procedures Referred By Contact Refer red To Contact Diagnoses Malignant Neoplasm Of Breast Upper Outer Quadrant Female Right (HCC) Katy Dobson M.D. [facility] Radiation Oncology Procedures Prior Auth Rad Tx GA RADTN TX DEL >=1 MEV COMPLEX [address] [place], [place] [phone] [address] [facility] [place] [address] Referral ID Status Reason Start Date Expiration Date Visits V isits Requested Authorized [id number] Authorized 02/08/2022 01/26/2023 19 19 Radiation Therapy (Routine) - Closed Specialty Diagnoses / Procedures Referred By Contact Refer red To Contact Diagnoses Malignant Neoplasm Of Breast Upper Outer Quadrant Female Right (HCC) Katy Dobson M.D. [facility] Procedures Initial Rad Onc Treatment Planning CT Simulation [address] [place], [place] [address] Referral ID Status Reason Start Date Expiration Date Visits Requ ested Visits Authorized [id number] Closed 01/26/2022 01/26/2023 1 1 Encounter Details Date Type Department Care Team Description 01/26/2022 Orders Only Department of Katy Dobson N eoplasm Of Radiation Oncology in [place] Breast Upper Outer [place], [place] [address] Quadrant Female Right [address] [place], [place] (HCC) (Primary Dx) [place] [phone] Social History Tobacco Use Types Packs/Day [...] or relatives? How often do you attend tenriism or holiness More than 4 time s per year 02/12/2022 services? Do you belong to any clubs or organizations Yes 02/12/2022 such as tenriism groups, unions, fraternal or athletic groups, or [...] or slept in a intermediate (including now)? Sex Assigned at Date Recorded [...] Time Received Time / Laterality Volume Narrative [facility] - 02/09/2022 2:33 PM CDT Patricia Balderas R, RTT ? 02/09/2022 ??2:34 PM Initial Rad Onc Treatment Planning CT Si mulation Date/Time: 02/09/2022 2:33 PM Performed by: Katy Dobson M.D. Authorized by: Katy Dobson M.D. Katy Dobson M.D. RADIATION ONCOLOGY ORDERABLE S Performing Organization Address City/State/ZIP Code Phon e Number ALVARENGA ALONZOJosey moya documented in this encounter Visit Diagnoses Diagnosis Malignant Neoplasm Of Breast Upper Outer Quadrant Female Right (HCC) - Primary Malignant Neoplasm Of Breast Upper Outer Quadrant Female Right (HCC) documented in this encounter
--- OUTSIDE RECORDS SUMMARY | 2022-05-27 17:51 | XMS_ITS | Encounter Summary ---
:1945 Author Organization [facility] Address [address] [place] [address] Care Team Providers Name Role Phone Unavailable Primary Care Provider Unavailable Encounter Details Date Type Department Care Team Description 05/03/2021 Clinical Communication Division of Nephrology Joshua Lopez and Hypertension in Tom Duke D.O. [place], [place] [address] [facility] [address] [place] [address] [phone] Social History Tobacco Use Types Packs/Day Years [...] or relatives? How often do you attend restoration or adventism More than 4 time s per year 02/12/2022 services? Do you belong to any clubs or organizations Yes 02/12/2022 such as restoration groups, unions, fraternal or athletic groups, or [...] Lopez Jr., D.O. - 05/03/2021 12:32 PM FLIGHT MECHANIC Dpocumentation of email: Dear Ms Cortez Thanks, these look really good, I'm hopeful to see us continue on this terrific trajectory! Best DR Josey Lopez Jr, DO., [facility], integration specialist, Conductor And Engineer: Division of Nephrology and Hypertenison, , ,email: [email or web address] -----Original Message----- From: Maryam cortez <[email or web address]> Sent: Monday, May 03, 2021 8:50 AM To: Joshua Lopez Jr., D.O. <[email or web address]> Subject: [EXTERNAL] Blood Pressures I have been feeling well on Carvedilol 6.25 x2/da at approx. 7:30-8:00 am and pm with meals. I beganthe above dose on March 24. These are some recent at home BPs beginning with Mar.29 to May.03,???21. 147/76 151/74 155/78 128/65 early a.m. 119/60 early a.m. 137/77 150/75 143/77 127/62 early a.m. Maryam Dos Santos (she,her) HT MECHANIC documented in this encounter Plan of Treatment Not on filedocumented as of this encounter Visit Diagnoses Not on filedocumented in this encounter
--- OUTSIDE RECORDS SUMMARY | 2022-05-27 17:51 | XMS_ITS | Encounter Summary ---
:1945 Author Organization [facility] Address [address] [place] [address] Care Team Providers Name Role Phone Unavailable Primary Care Provider Unavailable Reason for Visit Reason Comments Stress test or Carvedilol Encounter Details Date Type Department Care Team Description 03/16/2021 Clinical Division of Jessica, Stress test or Communication Nephrology and Joshua Santos Jr., Carvedilol Hypertension in [place], [place] [address] [facility] [address] [place] [phone] Social History Tobacco Use Types Packs/Day Years [...] or relatives? How often do you attend pentecostalism or christian More than 4 time s per year 02/12/2022 services? Do you belong to any clubs or organizations Yes 02/12/2022 such as pentecostalism groups, unions, fraternal or athletic groups, or [...] this encounter Miscellaneous Notes Telephone Encounter - Elbert Sonali Jimenez - 03/16/2021 1:20 PM CDT Caller is: [...] with that? Thank you. Preferred Communication Method: [phone] (mobile) Patient pharmacy: [id number] - [address] [address] Additional instructions: documented in this encounter Plan of Treatment Not on filedocumented as of this encounter Visit Diagnoses Not on filedocumented in this encounter
--- OUTSIDE RECORDS SUMMARY | 2022-05-27 17:51 | XMS_ITS | Encounter Summary ---
:1945 Author Organization [facility] Address [address] [place] [address] Care Team Providers Name Role Phone Unavailable Primary Care Provider Unavailable Encounter Details Date Type Department Care Team Description 02/22/2016 Hospital Encounter HX RST DERM SURG OP Denzel Woods M.D. [address] [place] [address] (Wo rk) Social History Tobacco Use Types [...] or relatives? How often do you attend latter-day or spiritism More than 4 time s per year 02/12/2022 services? Do you belong to any clubs or organizations Yes 02/12/2022 such as latter-day groups, unions, fraternal or athletic groups, or [...] tablets by 0 2015 capsule mouth daily. vit Take 1 capsule by 0 01/31/2009 C/E/Zn/coppr/lutein/zeaxa mouth daily. n (PRESERVISION AREDS-2 ORAL) metFORMIN (GLUCOPHAGE) Take 500 mg by mouth 2 0 0 01/31/2009 500 mg tablet (two) times a day. documented as of this encounter Plan of Treatment Not on filedocumented as of this encounter Visit Diagnoses Not on filedocumented in this encounter
--- OUTSIDE RECORDS SUMMARY | 2022-05-27 17:51 | XMS_ITS | Encounter Summary ---
:1945 Author Organization [facility] Address [address] [place] [address] Care Team Providers Name Role Phone Unavailable Primary Care Provider Unavailable Encounter Details Date Type Department Care Team Description 03/11/2021 Clinical Communication Division of Nephrology Joshua Lopez and Hypertension in Tom Duke D.O. [place], [place] [address] [facility] [address] [place] [address] [phone] Social History Tobacco Use Types Packs/Day Years [...] or relatives? How often do you attend worship or jainism More than 4 time s per year 02/12/2022 services? Do you belong to any clubs or organizations Yes 02/12/2022 such as worship groups, unions, fraternal or athletic groups, or [...] Notes Telephone Encounter - Joshua Lopez Jr., D.OMireille - 03/11/2021 10:36 AM CDT Phone note [...] direct observed conditions at the clinic in [place]. I havealso provided and e-mail copy-see below, [...] to the nursing and care team at [facility].. Dear Lina: Can you order an ECG, [...] know please? Carl Lopez Jr, DO., Regional Ground Systems Engineer [facility], needle punch machine operator helper, Section Leader And Machine Setter: Division of Nephrology and Hypertenison, , ,email: [email or web address] documented in this encounter Plan of Treatment Not on filedocumented as of this encounter Visit Diagnoses Not on filedocumented in this encounter
--- OUTSIDE RECORDS SUMMARY | 2022-05-27 17:51 | XMS_ITS | Clinical Summary ---
:1945 Author Organization [facility] [place] [address] Care Team Providers Name Role Phone Lina [...] Pollen Medications Medication Sig Dispensed Refills Start Date End Date Status fluticasone (50 mcg per Inhale 2 Sprays 0 Active actuation) nasal into both solution (FLONASE) nostrils once daily. magnesium oxide (MAG-OX Take 800 mg by 2 03/05/2016 Active 400) 400 mg tablet mouth 2 times daily. atorvastatin (LIPITOR) Take 1 tablet by 30 tablet 0 05/23/2016 Active 10 mg mouth at bedtime. tabletIndications: Hyperlipidemia LDL goal <70 clopidogrel (PLAVIX) 75 Take 1 tablet by 30 tablet 0 6 Active mg tabletIndications: mouth every Cerebrovascular morning. accident (CVA), unspecified mechanism (HC) insulin glargine Inject 16 Units 10 mL 0 11/05/2018 Active (LANTUS U-100 INSULIN) subcutaneous 100 unit/mL injection before breakfast. vit Take 1 Cap by 0 01/31/2009 Activ e C/E/Zn/coppr/lutein/ashley mouth. leidy (PRESERVISION AREDS-2 ORAL) albuterol HFA 90 INHALE TWO-FOUR 0 12/04/2019 Active mcg/actuation inhaler PUFFS BY MOUTH EVERY FOUR-SIX HOURS NEEDED cholecalciferol Take 3,000 Units 0 Active (VITAMIN D3) 1,000 unit by mouth. tablet betamethasone apply topically 0 12/04/2019 Active dipropionate 0.05% to affected (DIPROSONE 0.05% CREAM) area(s) 2 times 0.05 % cream daily. clindamycin phosphate apply to affected 0 09/14/2019 Active 1% topical 1 % external area(s) of scalp solution twice daily as needed. valACYclovir (VALTREX) Take 2 tablets by 0 0 Active 500 mg tablet mouth at onset of symptoms and take 2 tablets 12 hours later. zolpidem (AMBIEN) 5 mg Take 5 mg by 0 12/28/2019 Active tablet mouth at bedtime if needed. miscellaneous medical As directed. Home 1 Each 0 09/11/2020 Active supply (Blood Pressure blood pressure Cuff) miscIndications: monitoring for Essential hypertension Essential hypertension Diagnosis. Upper arm automatic Cuff. gabapentin (NEURONTIN) TAKE ONE CAPSULE 90 Capsule 1 1 Active 300 mg BY MOUTH ONE TIME capsuleIndications: DAILY AT BEDTIME Bilateral leg numbness carvediloL (COREG) 6.25 Take 6.25 mg by 0 08/13/2021 Active mg tablet mouth 2 times daily with meals. methylPREDNISolone Take by mouth as 21 Tablet 0 11/25/2021 Active (Medrol, Frandy,) 4 mg instructed per tabletIndications: packaging. Lumbar radiculopathy alendronate (FOSAMAX) TAKE 1 TABLET BY 0 12/22/2021 Active 70 mg tablet MOUTH ONCE WEEKLY ON AN EMPTY STOMACH WITH A BIG GLASS OF WATER. DO NOT LIE DOWN FOR 60 MINUTES AFTERWARDS. finasteride (PROSCAR) 5 TAKE 0.5 TABLET 0 12/16/2021 Active mg tablet BY MOUTH ONE TIME DAILY NovoLOG Flexpen U-100 INJECT 4-6 UNITS 0 12/28/2021 Active Insulin 100 unit/mL (3 BY SUBCUTANEOUS mL) pen ROUTE THREE TIMES DAILY BEFORE MEALS. Biotin 1 mg tablet Take 5,000 mg by 0 Active mouth. omeprazole (PRILOSEC) Take 20 mg by 0 12/20/2021 Active 20 mg Delayed-Release mouth. capsule anastrozole (ARIMIDEX) Take 1 mg by 0 02/12/2022 Active 1 mg tablet mouth once daily. CPAPIndications: TC CPAP machine for 1 Each 03/07/2022 Active (obstructive sleep home use at apnea) pressure: 5-16 cmw , Heated humidifier [...] Encounters Date Type Specialty Care Team Description 05/25/2022 Telephone Michelle Colmenares, Appointment Request 04/26/2022 Telephone Michelle Colmenares, DO Appointment Request 04/13/2022 Telephone Michelle Colmenares, DO Appointment Request 03/07/2022 Office Visit Francesco Huffman MD Sleep Follow -up (CPAP) 03/07/2022 Travel from Last 3 Months Immunizations Name Administration Dates Next Due Influenza, IIV4 04/20/2016 Social History Tobacco Use Types Packs/Day Years Used Date Never Smoker Smokeless Tobacco: Never Used Tobacco Cessation: Counseling Given: Yes Alcohol Use Standard Drinks/Week Comments No 0 (1 standard drink = 0.6 oz pure alcoho l) Sex Assigned at Date Recorded Female 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 Obstetrics History Para Term AB IAB SAB [...] 12/03/2018 9:53 AM CDT Plan of Treatment Upcoming Encounters Date Type Specialty Care Team Description 06/09/2022 Office Visit Ish Colmenares DO [address] [facility] [address] [place] [address] (Wo rk) Health Maintenance Due Date Last Done Comments [...] wt on same day) for 11/27/2019 11/26/2018, 08/2017, age 18+ 11/09/2016, Additional history exists Lipids for age 45-75 05/21/2021 05/21/2016 COVID-19 vaccine series (3 - Mixed 10/20/2021 09/22/2021, 0 03/16/2021 Product risk series) Influenza for age 65+ 02/24/2022 04/20/2016 Hepatitis C screening for age Completed 12/08/2016 18-79 Medical Devices Implanted Type Area Steam Powerplant Supervisor Device Shelf Model / Identifier Expiration Serial / Date Lot Screw Lmbr Post 6.5x40mm Vitality [place] - [id number] Spine [employer] [id number] / Implanted: Qty: 1 on 12/06/2016 by Gurinder Jones MD at [facility] Spine / .045 Double Ended K-Wire Right: N/A / Implanted: Qty: 2 on 12/03/2018 by Rex Harmon DPM at [facility] Foot / Procedures Procedure Name Priority Date/Time Associated Diagnosis Comme nts SCAN-DIAGNOSTIC 03/05/2022 12:00 AM Resul ts for this REPORT CDT procedure are i n the results section. from Last 3 Months Results SCAN-DIAGNOSTIC REPORT (03/05/2022 12:00 AM CDT) Narrative This result has an attachment that is no t available. Scanner OTHER from Last 3 Months Insurance Payer Benefit Plan / Subscriber ID Effective Dates Phone Addre ss Type Group MEDICARE PART A MEDICARE PART A [id number] 2012-Present ATTN: CLAIMS - HB USE ONLY HB ONLY [address] [place] [address] MEDICARE PART B MEDICARE PART B [id number] 2012-Present ATTN: CLAIMS - HB USE ONLY HB ONLY [address] [place] [address] UCARE MR RUSSO MEDICARE [id number] 2019-Present [address] [place] [address] Advance Directives Documents on File Type Date Recorded Patient Oil Operator Explanati on Healthcare Directive 12/31/2015 7:52 [...] 2:26 PM 12/20/2015 1:09 PM Care Teams Cloth Wire Weaver Relationship Specialty Start Date End Date Lina Meléndez MD PCP - General Internal Medicine 11/01/211999 [place] [address]
--- OUTSIDE RECORDS SUMMARY | 2022-05-27 17:51 | XMS_ITS | Encounter Summary ---
:1945 Author Organization [facility] Address [address] [place] [address] Care Team Providers Name Role Phone Unavailable Primary Care Provider Unavailable Reason for Visit Reason Comments Skin Problem Appointment Request (Routine) - Closed Specialty Diagnoses / Procedures Referred By Contact Refer red To Contact Family Medicine Referral ID Status Reason Start Date Expiration Date Visits Requ ested Visits Authorized [id number] Closed 12/08/2017 12/08/2018 1 Encounter Details Date Type Department Care Team Description 03/20/2018 Office Visit Department of Kamilla Cotres, Cancer Ski n Basal Cell Personal History (Primary Dx); Dermatology in [place], [place] [address] [place] [phone] [phone] Social History Tobacco Use Types Packs/Day Years [...] How often do you attend christian or cheondoism More than 4 time s [...] this area. She saw a dermatology physician membership assistant in [place] six months who felt that this was [...] chin area treated with Mohs surgery at [facility] around 2016. Allergies Allergen Reactions ??? [...] chin area treated with Mohs surgery at [facility] around 2016 FAMILY HISTORY No family [...]
--- OUTSIDE RECORDS SUMMARY | 2022-05-27 17:51 | XMS_ITS | Encounter Summary ---
:1945 Author Organization [facility] Address [address] [place] [address] Care Team Providers Name Role Phone Unavailable Primary Care Provider Unavailable Reason for Visit Reason Comments chest tightness/difficulty breathing Encounter Details Date Type Department Care Team Description 03/11/2021 Clinical Division of Jessica, chest Communication Nephrology and Joshua Santos Jr., tightness/d ifficult Hypertension in [place] y breathing [place], [place] [address] [place] [address] [phone] Social History Tobacco Use Types Packs/Day Years [...] or relatives? How often do you attend congregational or adventist More than 4 time s per year 02/12/2022 services? Do you belong to any clubs or organizations Yes 02/12/2022 such as congregational groups, unions, fraternal or athletic groups, or school groups? How often do you attend meetings of the More than 4 times pe cass year 02/12/2022 clubs or organizations you belong [...] like you to call her back at [phone]. She said the hydralazine isn't working any [...]
--- OUTSIDE RECORDS SUMMARY | 2022-05-27 17:51 | XMS_ITS | Encounter Summary ---
:1945 Author Organization [facility] Address [address] [place] [address] Care Team Providers Name Role Phone Unavailable Primary Care Provider Unavailable Reason for Visit Appointment Request (Routine) - Closed Specialty Diagnoses / Procedures Referred By Contact Refer red To Contact Nephrology and Hypertension Referral ID Status Reason Start Date Expiration Date Visits Requ ested Visits Authorized [id number] Closed 09/16/2021 09/16/2022 1 Encounter Details Date Type Department Care Team Description 09/28/2021 External Outreach Division of Jessica, Hyperti on And Chronic Kidney Disease Stage 1 To 4 (Primary Dx); Nephrology and Joshua Santos Jr., Diabetes Mili litus Type 2 (HCC); Hypertension in [place], [place] [address] [facility] [address] [place] [phone] [phone] Social History Tobacco Use Types Packs/Day Years [...] or relatives? How often do you attend hinduism or hoahaoism More than 4 time s per year 02/12/2022 services? Do you belong to any clubs or organizations Yes 02/12/2022 such as hinduism groups, unions, fraternal or athletic groups, or [...] or slept in a snf (including now)? Sex Assigned at Date Recorded Not on file documented as of this encounter Progress Notes Joshua Lopez Jr., D.O. - 09/28/2021 1:00 PM CDT Please see scanned in note under document viewer tab for the [facility] [place] outreach visit from this date. Medical Problems Diagnosis List Diabetes Mellitus Type 2 (HCC) Overview Signed 11/15/2016 10:48 AM by Conversion, [facility] Problem List [id number] DM II [Diabetes mellitus type II] Hypertension And Chronic Kidney Disease Stage 1 To 4 Overview Signed 11/15/2016 10:48 AM by Conversion, [facility] Problem List [id number] Hypertension Hyponatremia documented in this encounter Plan of Treatment Not on filedocumented as of this encounter Visit Diagnoses Diagnosis Hypertension And Chronic Kidney Disease Stage 1 To 4 - Primary Diabetes Mellitus Type 2 (HCC) Hyponatremia documented in this encounter
--- OUTSIDE RECORDS SUMMARY | 2022-05-27 17:51 | XMS_ITS | Encounter Summary ---
:[address] [facility] Address [address] [place] [address] Care Team Providers Name Role Phone Unavailable Primary Care Provider Unavailable Reason for Visit Reason Comments Med Reaction-side effects Encounter Details Date Type Department Care Team Description 12/31/2020 Clinical Division of Ronan Med Reaction-si de Communication Nephrology and Ana Randhawa effects Hypertension in M.D., Ph.D. [place], [place] [address] [place] [address] [address] [place] [phone] Social History Tobacco Use Types Packs/Day Years [...] or relatives? How often do you attend restorationism or judaism More than 4 time s per year 02/12/2022 services? Do you belong to any clubs or organizations Yes 02/12/2022 such as restorationism groups, unions, fraternal or athletic groups, or [...] is below. Thank you. Preferred Communication Method: [phone] (mobile) Patient pharmacy: [facility] [address] [place] [address] Additional instructions: documented in this encounter Plan of Treatment Not on filedocumented as of this encounter Visit Diagnoses Not on filedocumented in this encounter
--- OUTSIDE RECORDS SUMMARY | 2022-05-27 17:51 | XMS_ITS | Encounter Summary ---
:1945 Author Organization [facility] Address [address] [place] [address] Care Team Providers Name Role Phone Unavailable Primary Care Provider Unavailable Encounter Details Date Type Department Care Team Description 01/31/2009 Hospital Encounter HX [facility], M. D. Social History Tobacco [...] How often do you attend hinduism or buddhism More than 4 time s per year [...] 01/31/2009 3:38 PM CDT ED Depart Summary [facility] Emergency Department Clinical Discharge Summary PERSON INFORMATION Name MARYAM CORTEZ Age 63 Years 1945 12:00 AM Sex Female Language PCP Marital Status Visit Id Visit Reason Nausea; NAUSEA Specialty Enc Type Emergency Med Service Emergency Medicine Referred by Track Group ERNST ED Discharge 01/31/2009 3:30 PM Tracking Id [id number] Checkout 01/31/2009 3:38 PM Checkin 01/31/2009 1:27 PM Acuity 3 -Urgent Dispo Type Discharged to Home or Self Care Arrival 01/31/2009 1:27 PM Reg Status Complete LOS 000 02:11 Address: [address] [place] [address] Comment: PROVIDER INFORMATION Provider Role Assigned Unassigned BENJAMIN GALVIN MD ED Provider 01/31/2009 1:59 PM ALMA PAULA MARINE ENGINE MECHANIC Nurse 01/31/2009 2:39 PM VITALS INFORMATION Vital [...] Diff-5 Part Laboratory Completed 01/31/2009 2:08 PM BENJAMIN GALVIN MD 01/31/2009 1:34 PM aspirin Pharmacy Completed 01/31/2009 2:22 PM BENJAMIN GALVIN MD 01/31/2009 2:00 PM lorazepam Pharmacy Completed 01/31/2009 2:34 PM BENJAMIN GALVIN MD 01/31/2009 1:34 PM ED Saline Lock Patient Care Ordered 01/31/2009 1:34 PM BENJAMIN GALVIN MD 01/31/2009 1:34 PM Peripheral IV to Saline Lock Patient Care Ordered 01/31/2009 1:34 PM BENJAMIN GALVIN MD 01/31/2009 1:34 PM Sodium Chloride 0.9% Pharmacy Ordered BENJAMIN GALVIN MD 01/31/2009 2:00 PM CBC Laboratory Completed 01/31/2009 2:08 PM BENJAMIN GALVIN MD 01/31/2009 2:00 PM Troponin T Laboratory Completed 01/31/2009 2:41 PM BENJAMIN GALVIN MD 01/31/2009 1:00 PM EKG-Lab Laboratory Completed 01/31/2009 1:58 PM BENJAMIN GALVIN MD 01/31/2009 1:34 PM Cardiac Monitoring Patient Care Ordered 01/31/2009 1:34 PM BENJAMIN GALVIN MD 01/31/2009 2:00 PM Basic Metabolic Panel Laboratory Completed 01/31/2009 2:41 PM BENJAMIN GALVIN MD MEDICAL INFORMATION Allergy Info: NKA [...] Follow up: With: Address: When: JOSE MEREDITHULIHAN [address] [place] [address] phone, fixed, Solaborate (1) WithinAs needed Comments: PHYS DOC NOTES Patient: MARYAM CORTEZ - MA00 MRN Age: 63 years Sex: Female : 1945 Author: BENJAMIN GALVIN MD Basic Information Time seen: Date [...] % HI Lymph % 10.6 % LOW Collin % 4.4 % Eos % 0.3 % [...] start her on ASA and refer toa sustainability communicator for outpt eval. Pt happy with this [...] prescription, Patient indicated understanding of instructions. Source: [facility] POWERCHART Document Id: [id number] Electronically signed by Conversion, [facility] Stack Supervisor [id number] at 11/28/2016 9:41 AM CDT Alma Paula R.N. - 01/31/2009 3:38 PM CDT ED Discharge Instructions [facility] [address] [place] [address] Name: MARYAM CORTEZ Date of : 1945 12:00 AM Reason For Visit: Nausea; NAUSEA Visit Date: 01/31/2009 1:27 PM FIN: Current Date: 01/31/2009 15:38:08 Address: [address] [place] [address] Primary Care Provider: IMPORTANT: [facility] would like to thank you for allowing [...] Instructions: With: Address: When: JOSE REN [address] [place] [address] phone, fixed, Solaborate (1) WithinAs needed Comments: Patient Education Materials: [...] Follow-up Instructions: With: Address: When: JOSE REN [address] [place] [address] phone, fixed, Solaborate ([employer] WithinAs needed Comments: Patient Education Materials: CHEST [...] have been answered. Provider Signature Date Source: [facility] POWERCHART Document Id: [id number] Electronically signed by Conversion, [facility] Stack Supervisor [id number] at 11/28/2016 9:41 AM CDT documented in this encounter Medications at Time of Discharge Medication Sig Dispensed Refills Start Date End Date vit Take 1 capsule by 0 01/31/2009 C/E/Zn/coppr/lutein/zeaxa mouth daily. n (PRESERVISION AREDS-2 ORAL) metFORMIN (GLUCOPHAGE) Take 500 mg by mouth 2 0 0 01/31/2009 500 mg tablet (two) times a day. documented as of this encounter Nursing Notes Alma Paula R.NMireille - 01/31/2009 1:32 PM CDT ED Primary [...] Tracking Acuity: 3 -Urgent Tracking Group: [facility] ALMA PAULA RN - 01/31/2009 14:40 CDT [...] GI Detailed GI Patient Stated Symptoms: Nausea MARTIALMA HAMEED RN - 01/31/2009 13:32 CDT Bowel Sounds Grid LUQ: Normoactive RUQ: Normoactive LLQ: Normoactive ALMA PAULA RN - 01/31/2009 13:32 CDT Integumentary Integumentary Patient Stated Symptoms: None Skin Integrity: Intact ALMA PAULA RN - 01/31/2009 13:32 CDT Musculoskeletal Fall Prevention Education Provided: Yes ALMA PAULA RN - 01/31/2009 13:32 CDT Source: [employer] Document Id: [id number] CDT!8 documented in this encounter ED Notes Alma Paula R.N. - 01/31/2009 2:42 PM CDT ED Disposition Summary ED Disposition Summary Entered On: 01/31/2009 14:43 CDT Performed On: 01/31/2009 14:42 CDT by ALMA PAULA RN ED Disposition Summary Accompanied By: Alone Mode of Discharge: Stretcher Nurse Receiving Report: report to [address] [place] [address] nurse Patient Status at Discharge from ED: Improved ALMA PAULA RN - 01/31/2009 14:42 CDT Source: [employer] Document Id: [id number] CDT!6 Alma Paula R.N. - 01/31/2009 2:30 PM CDT ED Nurse Reassess ED Nurse Reassess Entered On: 01/31/2009 15:13 CDT Performed On: 01/31/2009 14:30 CDT by ALMA PAULA RN Resp Reassess Respiratory Patient Stated Symptoms: None Respirations: Unlabored Cough: None ALMA PAULA RN - 01/31/2009 15:13 CDT Source: [facility] [employer] Document Id: [id number] CDT!5 Krystyna Mir R.N. - 01/31/2009 1:39 [...] lightheaded, started this am, getting worse [facility] Document Id: [id number] Benjamin Galvin M.D. - 01/31/2009 1:34 PM CDT Chest Pain *ED Patient: MARYAM CORTEZ - MA00 MRN Age: 63 years Sex: Female : 1945 Author: BENJAMIN GALVIN MD Basic Information Time seen: Date [...] % HI Lymph % 10.6 % LOW Collin % 4.4 % Eos % 0.3 % [...] start her on ASA and refer toa sustainability communicator for outpt eval. Pt happy with this [...] prescription, Patient indicated understanding of instructions. Source: [facility] [employer] Document Id: [id number]} documented in this encounter Miscellaneous Notes Miscellaneous - Alma Paula R.N. - 01/31/2009 2:43 PM CDT Valuables/Belongings Valuables/Belongings Entered On: 01/31/2009 14:44 CDT Performed On: 01/31/2009 14:43 CDT by ALMA PAULA RN Valuables/Belongings Belongings Sent Home With: sent with patient ALMA PAULA RN - 01/31/2009 14:43 CDT Source: [employer] Document Id: [id number] CDT!3 Miscellaneous - Alma Paula R.N. - [...] PAULA RN - 01/31/2009 14:44 CDT [facility] Document Id: [id number] CDT!8 documented in this encounter Plan of Treatment Not on filedocumented as of this encounter Visit Diagnoses Not on filedocumented in this encounter
[2022-05-27 18:00] VITALS: BP 180/83; PULSE 71; RESP 20; O2SAT 98
--- NOTE | 2022-05-29 14:05 | ED_ITS ---
HPI - General Adult General Chief complaint: Cough Stated complaint: Influenza A+, Getting worse Time Seen by Provider: 05/27/22 16:19 History of Present Illness HPI narrative: 76-year-old woman presenting to the emergency department with complaint of intense nausea and cough. Diarrhea as well. She has been been having cough and cold symptoms over the last 6 or 7 days. Yesterday apparently diagnosed with influenza A and initiated on Tamiflu. Underlying history of diabetes and ast hma. Noted lower oxygen sats at home at 88% at one point. Is thirsty. Not so much abdominal pain. Just says she would like to not be nauseated. And is concerned about her diabetes as she really can not seem eat anything. Related Data Home Medications Medication Instructions Recorded Confirmed albuterol sulfate 90 mcg/actuation See Rx Instructions .Route 12/20/21 05/26/22 aerosol inhaler .COMPLEX PRN alendronate 70 mg tablet 70 mg PO Q7D 12/20/21 05/26/22 atorvastatin 10 mg tablet 10 mg PO HS 12/20/21 05/26/22 beclomethasone dipropionate 80 2 inh inhalation BID 12/20/21 05/26/22 mcg/actuation HFA breath activated aerosol betamethasone dipropionate 0.05 % 1 applic topical BID 12/20/21 05/26/22 topical cream carvedilol 6.25 mg tablet 6.25 mg PO BID 12/20/21 05/26/22 clopidogrel 75 mg tablet (Plavix) 75 mg PO DAILY 12/20/21 05/26/22 fluticasone propionate 50 2 spray intranasal BID 12/20/21 05/26/22 mcg/actuation nasal spray,suspension (Allergy Relief (fluticasone)) gabapentin 300 mg capsule 300 mg PO HS 12/20/21 05/26/22 insulin glargine 100 unit/mL (3 18 unit subcut QAM 12/20/21 05/26/22 mL) subcutaneous pen magnesium oxide 400 mg (241.3 mg 600 mg PO DAILY 12/20/21 05/26/22 magnesium) tablet omeprazole 20 mg capsule,delayed 20 mg PO DAILY 12/20/21 05/26/22 release timolol maleate 0.5 % eye drops 1 drp ophthalmic (eye) HS 12/20/21 05/26/22 valacyclovir 500 mg tablet 500 mg PO BID PRN 01/20/22 05/26/22 Previous Rx's Medication Instructions Recorded insulin aspart U-100 100 unit/mL 4 - 6 unit (0.04 - 0.06 mL) subcut 12/28/21 (3 mL) subcutaneous pen (Novolog .tidac #15 mL Flexpen U-100 Insulin aspart) flash glucose scanning reader #2 kits 12/31/21 (FreeStyle Daja 14 Day [place]) flash glucose sensor (FreeStyle #2 kits 12/31/21 Daja 14 Day Sensor kit) clindamycin phosphate 1 % lotion 1 applic topical BID #60 mL 02/08/22 diazepam 2 mg tablet 2 mg PO DAILY PRN muscle spasm #20 02/22/22 tabs eszopiclone 2 mg tablet (Lunesta) 2 mg PO QHS #90 tabs 04/05/22 clindamycin phosphate 1 % topical 1 applic topical QDAY #60 mL 04/20/22 solution clobetasol 0.05 % topical ointment 1 applic topical .twice weekly #30 04/22/22 grams hydrocodone 5 mg-acetaminophen 325 1 tab PO Q8H PRN pain #30 tabs 05/26/22 mg tablet oseltamivir 75 mg capsule (Tamiflu) 75 mg PO BID Influenza 5 days #10 05/27/22 caps ondansetron HCl 4 mg tablet 4 mg PO Q6H PRN nausea and 05/30/22 vomiting #10 tabs Allergies Allergy/AdvReac Type Severity Reaction Status Date / Time hazelnut Allergy Severe Throat Verified 05/26/22 15:58 closes and hives adhesive Allergy Unknown Verified 05/26/22 15:58 cantaloupe Allergy Unknown Verified 05/26/22 15:58 codeine AdvReac Mild Nausea and Verified 05/26/22 15:58 Vomiting Sulfa drugs Allergy Severe Throat Uncoded 05/26/22 15:58 tightening trees Allergy Intermediate stuffed Uncoded 05/26/22 15:58 nose Sulfites Allergy Mild Rash Uncoded 05/26/22 15:58 Gluten Meal AdvReac Unknown GI Uncoded 05/26/22 15:58 intolerance Review of Systems Status of ROS: Reports: 10 or more systems reviewed and unremarkable except as noted in History and below [facility] Medical History Cough History of depression (2001) Hyperplastic polyp of intestine Influenza A Surgical History History of basal cell carcinoma excision History of bladder surgery (02/08/10) History of blepharoplasty (07/08/09) History of breast biopsy (07/08/09) History of carpal tunnel release History of cataract surgery History of foot surgery History of hysterectomy (07/08/09) History of open reduction and internal fixation (ORIF) procedure (07/16/19) 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) Hx of decompressive lumbar laminectomy Social History Narrative: 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 History of tobacco use She does not use recreational drugs. She really drinks alcohol. She has 1 biologic child, and 4 adopted children. Smoking Status: Never smoker Do you use any of these nicotine containing products: None Second hand tobacco smoke exposure: No How often do you have a drink containing alcohol: never How often do you have six or more drinks on one occasion: Never AUDIT-C Alcohol total score: 0 Non-prescribed substance use: denies use Little interest or pleasure in doing things: not at all Feeling down, depressed, or hopeless: not at all service: No Exam Narrative: Exam Narrative: Pleasant. Seems fatigued. Labored in her breathing though seems less respiratory more just wiped out. Indeed oxygen saturations are maintained. Blood pressure noted to be elevated. Emesis bag nearby. Does demonstrate some dry heaving. Conversing smoothly but seems an effort to do so. Moving all extremities without difficulty. Skin is warm and dry without rash. Lower extremities without edema. Well perfused. Oropharynx sticky. Lungs appear clear Abdomen is soft mildly uncomfortable generally palpation. Not really tender. Const: Documenting provider has reviewed patient's vital signs: yes Course Vital Signs Vital signs: Initial Vital Signs Temperature 97.3 F L 05/27/22 16:00 Temperature Source Temporal Artery Scan 05/27/22 16:00 Pulse Rate 70 05/27/22 16:00 Respiratory Rate 32 H 05/27/22 16:00 Blood Pressure 209/99 H 05/27/22 16:00 Blood Pressure Mean 135 05/27/22 16:00 Blood Pressure Position Sitting 05/27/22 16:00 Pulse Oximetry 100 05/27/22 16:00 Vital Signs Temperature 97.3 F L 05/27/22 16:00 Pulse Rate 70 05/27/22 16:00 Respiratory Rate 32 H 05/27/22 16:00 Blood Pressure 209/99 H 05/27/22 16:00 Pulse Oximetry 100 05/27/22 16:00 Temperature 97.3 F L 05/27/22 16:00 Pulse Rate 71 05/27/22 18:00 Respiratory Rate 20 05/27/22 18:00 Blood Pressure 180/83 H 05/27/22 18:00 Pulse Oximetry 98 05/27/22 18:00 Oxygen Delivery Method 05/27/22 18:00 Medical Decision Making MDM Narrative Medical decision making narrative: Initiated on IV fluids and Zofran. Obtain CBC and basic metabolic panel. BMP notable for hyponatremia at 128. Not unexpected she says as this is rather typical and has periodically worked on this with Primary Care. Considering normal saline she has received I would think her sodium now more than 130 at least. After treatments as above is markedly improved and feels she can return home. I suspect Tamiflu may have something to do with vomiting and given duration of illness unclear to me that would be beneficial anyway. Consider discontinuing. Lab Data Lab results reviewed: Yes I reviewed the patient's lab results Labs: Lab Results 05/27/22 05/27/22 Range/Units 16:55 16:55 WBC 3.05 L (4.50-11.00) K/uL RBC 3.74 L (4.00-5.20) m/uL Hgb 11.7 L (12.0-16.0) gm/dL Hct 34.2 (33.0-51.0) % MCV 91 (80-100) fL MCH 31 (26-34) pg MCHC 34 (32-36) gm/dL RDW Coeff of Don 12.3 (11.5-15.5) % Plt Count 176 (140-440) K/uL Neut % (Auto) 75.2 H (42.0-72.0) % Lymph % (Auto) 15.4 L (20-44) % [place] % (Auto) 7.5 (0.0-11.0) % Eos % (Auto) 1.3 (0.0-7.0) % Baso % (Auto) 0.3 (0.0-3.0) % Neut # (Auto) 2.30 (1.7-7.0) K/uL Lymph # (Auto) 0.50 L (0.90-2.90) K/uL [place] # (Auto) 0.20 (0.00-0.90) K/UL Eos # (Auto) 0.00 (0.00-0.50) K/uL Baso # (Auto) 0.00 (0.00-0.30) K/uL Abs Immat Gran (auto) 0.00 (0.00-0.30) K/uL Imm/Tot Granulo (auto) 0.3 % Sodium 128 L (135-149) mmol/L Potassium 4.0 (3.6-5.1) mmol/L Chloride 95 L (96-114) mmol/L Carbon Dioxide 28 (20-32) mmol/L BUN 16 (7-30) mg/dL Creatinine 0.5 (0.5-1.5) mg/dL Estimated Creat Clear 44.41 Estimated GFR 98 ml/min Glucose 198 H (60-115) mg/dL Calcium 8.3 L (8.4-10.6) mg/dL Total Bilirubin 1.0 (0.1-1.5) mg/dL Direct Bilirubin 0.0 (0.0-0.5) mg/dL AST 34 (12-35) U/L ALT 25 (4-35) U/L Alkaline Phosphatase 57 (40-150) U/L Total Protein 7.1 (6.0-8.3) g/dL Albumin 4.1 (3.3-5.0) g/dL Discharge Plan Discharge Clinical Impression: Influenza A, Vomiting, Chronic hyponatremia, Dehydration Patient Disposition: Home, Self-Care Condition: Improved Additional Instructions: Focus on hydration. Slow advance of diet with diluted juices, soup broths adva ncing to thicker soups and smoothies. Rice. [place]. Return for recurrence of persistent vomiting, increasing and persistent shortness of breath, increasing chest pain, worsening weakness. Prescriptions: No Action clobetasol 0.05 % ointment 1 applic TOPICAL .twice weekly Qty: 30 2RF Rx Instructions: APPLY SPARINGLY TO AFFECTED AREA hydrocodone-acetaminophen 5-325 mg tablet 1 tab PO Q8H PRN (Reason: pain) Qty: 30 0RF eszopiclone [Lunesta] 2 mg tablet 2 mg PO QHS Qty: 90 2RF atorvastatin 10 mg tablet 10 mg PO HS alendronate 70 mg tablet 70 mg PO Q7D omeprazole 20 mg capsule,delayed release(DR/EC) 20 mg PO DAILY albuterol sulfate 90 mcg/actuation HFA aerosol inhaler See Rx Instructions .ROUTE .COMPLEX PRN Rx Instructions: 2-4 inh q4-6h PRN; timolol maleate 0.5 % drops 1 drp OPHTHALMIC (EYE) HS Rx Instructions: Apply to fingertips at bedtime. beclomethasone dipropionate 80 mcg/actuation HFA aerosol breath activated 2 inh inhalation BID Rx Instructions: administer with spacer magnesium oxide 400 mg (241.3 mg magnesium) tablet 600 mg PO DAILY Rx Instructions: 400 mg in am, 200 mg pm betamethasone dipropionate 0.05 % cream 1 applic TOPICAL BID Rx Instructions: Apply to affected area twice daily as needed gabapentin 300 mg capsule 300 mg PO HS fluticasone propionate [Allergy Relief (fluticasone)] 50 mcg/actuation spray,suspension 2 spray intranasal BID Rx Instructions: administer into each nostril insulin glargine 100 unit/mL (3 mL) insulin pen 18 unit SUBCUT QAM clopidogrel [Plavix] 75 mg tablet 75 mg PO DAILY carvedilol 6.25 mg tablet 6.25 mg PO BID valacyclovir 500 mg tablet 500 mg PO BID PRN insulin aspart U-100 [Novolog Flexpen U-100 Insulin] 100 unit/mL (3 mL) insulin pen 4 - 6 unit subcut .tidac Qty: 15 3RF (DME) FreeStyle Daja 14 Day [place] Misc See Rx Instructions .Route Qty: 2 11RF Rx Instructions: As directed (DME) FreeStyle Daja 14 Day Sensor Kit See Rx Instructions .Route Qty: 2 11RF Rx Instructions: As directed clindamycin phosphate 1 % lotion 1 applic TOPICAL BID Qty: 60 3RF Rx Instructions: Apply topically to affected area 1-2 times daily. diazepam 2 mg tablet 2 mg PO DAILY PRN (Reason: muscle spasm) Qty: 20 0RF clindamycin phosphate 1 % solution 1 applic topical QDAY Qty: 60 1RF oseltamivir [Tamiflu] 75 mg capsule 75 mg PO BID 5 Days Qty: 10 0RF ondansetron HCl 4 mg tablet 4 mg PO Q6H PRN (Reason: nausea and vomiting) Qty: 10 0RF Follow Up/Referrals: Lina Meléndez MD [Primary Care Provider] - Stand Alone Forms: [employer] Info Instructions
== END 2022-05-27 19:15 | disposition home or self-care (01) ==
PROVIDERS: Emergency Provider Family Medicine; PCP Internal Medicine
DX: J09.X2 Influenza due to identified novel influenza A virus with other respiratory manifestations (principal); E87.1 Hypo-osmolality and hyponatremia
CPT/HCPCS: 36415; 71045; 80048; 80076; 85025; 94761; 96374; 99284; J2405; J7030

== ENCOUNTER 2022-07-28 14:15 | Outpatient (RCR) | payer MEDICARE, SELFPAY ==
--- NOTE | 2022-06-28 10:50 | ONC.NURNOTE ---
Patient was scheduled for a screening mammogram on 06/24 stating someone told me I needed a 6 month post surgery mammogram, screening mammogram is not due until October. The mammogram tech explained to the patient that sometimes this is done but it is done as a diagnostic mammogram to the surgical side only and requires an MD order. I called the patient today to discuss this further. I explained that if this is done to establish a new baseline, we also recommend it be approximately 6 months after the completion of radiation. Patient is due to see Monet Stover on 07/28 and will discuss this further at that time. Patient verbalizes understanding.
== END 2022-09-27 23:59 | disposition home or self-care (01) ==
LOC: CCIC 14:15
PROVIDERS: PCP Internal Medicine; Visit Provider Nurse Practitioner Family
DX: C50.911 Malignant neoplasm of unspecified site of right female breast (principal); Z17.0 Estrogen receptor positive status [ER+]; M81.0 Age-related osteoporosis without current pathological fracture; Z86.73 Personal history of transient ischemic attack (TIA), and cerebral infarction without residual deficits
CPT/HCPCS: 99212; 99213; 99214

== ENCOUNTER 2022-08-02 15:10 | Outpatient (CLI) | payer MEDICARE, SELFPAY ==
--- NOTE | 2022-08-02 15:20 | CRLHL7_ITS ---
For Patients: As a result of the Century Cures Act, medical imaging exams and procedure reports are released immediately into your electronic medical record. You may view this report before your referring provider. If you have questions, please contact your health care provider. BILATERAL SCREENING MAMMOGRAM WITH COMPUTER-AIDED DETECTION AND TOMOSYNTHESIS TECHNIQUE: CC and MLO views were obtained. These mammographic images have been obtained using full-field digital technique. These mammographic images were interpreted with the benefit of computer-aided detection. Breast Tomosynthesis was used in this interpretation. COMPARISON FILM: 11/02/21, 10/02/20, 12/12/18. FINDINGS: The breasts are heterogeneously dense, which may obscure small masses IMPRESSION: There is no radiographic evidence for malignancy. ASSESSMENT: BI-RADS Category 2: Benign RECOMMENDATION: Routine screening mammogram in 1 year. A lay language report of this examination will be provided to the patient. David Olson M.D. Diagnostic Radiologist [email or web address] BRITTANI/Dictated by: David Olson MD @ 08/03/2022 11:07:00 AM (Electronically Signed)
== END 2022-08-02 15:11 | disposition home or self-care (01) ==
PROVIDERS: PCP Internal Medicine; Visit Provider Physician Assistant
DX: Z12.31 Encounter for screening mammogram for malignant neoplasm of breast (principal); Z85.3 Personal history of malignant neoplasm of breast
CPT/HCPCS: 77063; 77067

== ENCOUNTER 2022-09-14 07:52 | Outpatient (CLI) | payer MEDICARE, SELFPAY | END 2022-09-14 07:53 | disposition home or self-care (01) | LOC: NFLDREF 09-15 14:35 | PROVIDERS: PCP Internal Medicine; Referring Provider Internal Medicine; Visit Provider Internal Medicine | DX: E11.9 Type 2 diabetes mellitus without complications (principal); D63.8 Anemia in other chronic diseases classified elsewhere; I10 Essential (primary) hypertension; E83.42 Hypomagnesemia; M81.0 Age-related osteoporosis without current pathological fracture | CPT/HCPCS: 80053; 80061; 83735 ==

== ENCOUNTER 2022-09-16 09:15 | Outpatient (RCR) | payer MEDICARE, SELFPAY | END 2022-12-15 13:07 | disposition home or self-care (01) | PROVIDERS: PCP Internal Medicine; Visit Provider Family Medicine | DX: M48.062 Spinal stenosis, lumbar region with neurogenic claudication (principal); M54.16 Radiculopathy, lumbar region; M51.36 Other intervertebral disc degeneration, lumbar region; Z98.1 Arthrodesis status; M54.50 Low back pain, unspecified; M25.552 Pain in left hip; M62.81 Muscle weakness (generalized); R29.3 Abnormal posture; R26.81 Unsteadiness on feet; R26.89 Other abnormalities of gait and mobility; Z51.89 Encounter for other specified aftercare | CPT/HCPCS: 97110; 97140; 97162 ==

== ENCOUNTER 2022-12-16 08:54 | Outpatient (CLI) | payer MEDICARE, SELFPAY ==
--- NOTE | 2022-12-16 | CRLHL7_ITS ---
For Patients: As a result of the Century Cures Act, medical imaging exams and procedure reports are released immediately into your electronic medical record. You may view this report before your referring provider. If you have questions, please contact your health care provider. RIGHT BREAST ULTRASOUND CLINICAL HISTORY: Pain and questionable palpable abnormality lateral RIGHT breast/RIGHT axilla. History of lumpectomy and radiation therapy 1 year ago. The patient states that currently she does not feel any palpable abnormality nor any significant pain. TECHNIQUE: Directed RIGHT breast ultrasound with this radiologist present. FINDINGS: Only normal breast tissue is identified in the mid outer quadrant between the 9 and 10 o???clock position. There is questionable minor subcutaneous edema which may be related to radiation therapy. No underlying mass. No suspicious areas of shadowing. These findings were discussed briefly with the patient. Annual mammography is recommended. BI-RADS Category 1: Negative A lay language report of this examination will be provided to the patient. Christiano Chapin M.D. Diagnostic/Nuclear Medicine Radiologist [email or web address] BRITTANI/Dictated by: Christiano Chapin MD @ 12/16/2022 10:00:00 AM (Electronically Signed)
--- OUTSIDE RECORDS SUMMARY | 2022-12-16 08:56 | XMS_ITS | Continuity of Care Document ---
Author Name Unknown Organization [facility] Address [address] [place] [address] Phone Care Team Providers Care Card Assembler Name Role Phone Gurinder Mc MD Unavailable Unavailable Allergies, Adverse Reactions, Alerts Substance Reaction Status Criticality Sulfa (Sulfonamide Antibiotics) anaphalaxis Active No Information hazelnut Active No Information codeine Active No Information Medications Medication Instructions Dosage Effective Dates (start - stop) Status Comments ALENDRONATE SODIUM (unknown strength) Not Available - Active FINASTERIDE (unknown strength) Not Available - Active GABAPENTIN (unknown strength) Not Available - Active HYDROCODONE-ACETAMINOP HEN (unknown strength) Not Available - Active OMEPRAZOLE (unknown strength) Not Available - Active PROAIR DIGIHALER (unknown strength) Not Available - Active AMBIEN (unknown strength) Not Available - Active CLOPIDOGREL (unknown strength) Not Available - Active LIPITOR (unknown strength) Not Available - Active HUMALOG (unknown strength) Not Available - Active LANTUS SOLOSTAR (unknown strength) Not Available - Active CLONIDINE (unknown strength) Not Available - Active UROMAG (unknown strength) Not Available - Active Procedures Procedure Date Office/Outpatient Visit,New, Mod 2021 Office/Outpatient Visit,Est, Mod 2017 X-Ray Exam Lower Spine 2-3 Views 2017 Office/Outpatient Visit,Est, Low 2017 X-Ray Exam Lower Spine 2-3 Views 2017 Office/Outpatient Visit,Est, Mod 2016 X-Ray Exam Lower Spine 2-3 Views 2016 Postop Followup Visit X-Ray Exam Lower Spine 2-3 Views 2016 Postop Followup Visit X-Ray Exam Lower Spine 2-3 Views 2016 Arthdsis Post/Posterolatrl/Postinterbody Lumbar Insert Spine Fixation, Posterior 2016 Insert interbody cage w/fusion 17 Pa Arthdsis Post/Posterolatrl/Postinterb vinay Lumbar Pa Assist Insert Spine Fixation, Posteri or PA Assist Insert interbody cage w/fusion Office/Outpatient Visit,Est, Mod 2016 Postop Followup Visit Postop Followup Visit Remove Lumbar Spine Lamina, 1 Seg Remove Added Spine Lamina, 1 Seg 2015 Pa Assist Remove Lumbar Spine Lamina, 1 Seg Pa Assist Remove Added Spine Lamina, 1 S eg Office/Outpatient Visit,New, Mod 2015 Advance Directives Directive Yes / No Effective Date File Name No Information Encounters Encounter Description Practice Location Reason(s) For Visit Diagnoses Date Provider Providers Copied on Encounter Office/Outpa tient Visit,New, Mod [facility], [address], [place], [place], [id number] , [phone] [facility] Spinal stenosis, lumbar region with neurogenic claudication 2 Mehbod Amir. [facility] [place], [address] [place] [address] [address], [place], [place], [id number] , [place]. tel:[phone] Referring Provider: Timoteo Madrid[address], [address]. tel:[phone] Office/Outpa tient Visit,Est, Mod [facility], [address], [place], [place], [id number] , [place] tel:[phone] [facility] Other forms of scoliosis, lumbar regionPost Op - Normal Follow-up 8 Mehbod Amir. [facility] [place], [address] [place] [address] [address], [place], [place], [id number] , [place]. [phone] Referring Provider: Corona Dixon [address], [address]. tel:[phone] Office/Outpa tient Visit,Est, Low [facility], [address], [place], [place], [id number] , [place] tel: [phone] [facility] Encounter for other specified surgical aftercareArthrode sis status Mehbod Amir. [facility] [place], [address] [place] [address], [place], [place], [id number] , [place]. tel: [phone] Referring Provider: Corona Dixon [address], [address]. tel:[phone] Office/Outpa tient Visit,Est, Mod [facility], [address], [place], [place], [id number] , [place] tel: [phone] [facility] Spinal stenosis, lumbar region NOS Mehbod Amir. [facility], [address] [place] [address], [place], [place], [id number] , [place]. tel: [phone] Referring Provider: Corona Dixon [address], [address]. tel:[phone] [facility], [address], [place], [place], [id number] , [place] tel: [phone] [facility] Encounter for follow-up examination after completed treatment for conditions other than malignant neoplasm Mehbod Amir. [facility] [place], [address] [place] [address] [address], [place], [place], [id number] , [place]. tel: [phone] Referring Provider: Corona Dixon [address], [address]. tel:[phone] [facility], [address], [place], [place], [id number] , [place] tel: [phone] [facility] [place] Spinal stenosis, lumbar region 7 Kimberly Finney. [address] [place] [address], [place], [place], [id number] , [place]. tel:[phone] Referring Provider: Corona Dixon [address], [address]. tel:[phone] [facility], [address], [place], [place], [id number] , [place] tel:[phone] [facility] No Information Sergei- 7 Mehbod Amir. [facility] [place], [address] [place] [address], [place], [place], [id number] , [place]. tel:[phone] Referring Provider: Corona Dixon [address], [address]. tel:[phone] Office/Outpa tient Visit,Est, Mod [facility], [address], [place], [place], [id number] , [place] tel: [phone] [facility] Spinal stenosis, lumbar region Apr-0 7 Mehbod Amir. [facility] [place], [address] [place] [address], [place], [place], [id number] , [place]. tel:[phone] Referring Provider: Corona Dixon [address], [address]. tel:[phone] [facility], [address], [place], [place], [id number] , [place] tel:[phone] [facility] Spinal stenosis, lumbar region Sep- 9201 6 Kimberly Finney. [address] [place] [address], [place], [place], [id number] , [place]. tel:[phone] Referring Provider: Corona Dixon [address], [address]. tel:[phone] [facility], [address], [place], [place], [id number] , [place] tel:[phone] [facility] Spinal stenosis, lumbar region Aug-0 8201 6 Mehbod Amir. [facility] [place], [address] [place] [address] is, [place], [id number] , . tel:[phone] Referring Provider: Corona Dixon [address], [address]. tel:[phone] [facility], [address], [place], [place], [id number] , [place] [phone] [facility] No Information 6 Mehbod Amir. [facility], [address], [place], [place], [id number] , . tel:[phone] Referring Provider: Corona Dixon [address], [address]. tel:[phone] Office/Outpa tient Visit,[facility], [address], [place], [place], [id number] , tel:[phone] [facility] OverweightSpinal stenosis, lumbar region 6 Mehbod Amir. [facility], [address], [place], [place], [id number] , . tel:[phone] Referring Provider: Cornoa Dixon [address], [address]. tel:[phone] Family History Family Member Type Diagnosis Age At Onset No Information Payers Payer name Insurance type Covered green party ID Valentin harrell(s) [employer] [id number] CI [id number] Social History Type Description Quantity Date Captured Comments Alcohol Use Details Unknown Caffeine Use Details Unknown Tobacco Use Status Never smoked tobacco 2021 Smoking Status Never smoker Non-Smoking Tobacco Use Details : No Details Available : No Details Available Sex Female Vital Signs Date / Time: Height Weight BMI Pulse Rate Blood Pressure Temperature Respiratory Rate Body Surface Area Head Circumference Head Circ. Percentile Wt./Nils. Percentile BMI percentile Pulse Ox Inhaled Ox 2:03 PM 64.50 in 73.028 kg (161.00 lbs) 27.2 1 kg/m eter (2) Chief Complaint And Reason For Visit No Information Reason For Referral Reason For Referral No Information Plan Of Treatment Date Type Action Status No Information History Of Present Illness Encounter Date Complaint History Of Prese nt Illness No Information Functional Status Date Functional Assessmen t No Information Instructions Date Instruction Additional Infor kimberli Instructed to return to General Practitioner timeframe: 1 Month. Related to Unspecified Essential Hypertension Blood Pressure Management Relate d to Unspecified Essential Hypertension Weight management: I nstructed to return to General Practitioner timeframe: 1 Month. Related to Overweight Weight Management Education Rela donnell to Overweight Weight management: I nstructed to return to General Practitioner timeframe: 1 Month. Related to Overweight Weight Management Education Rela donnell to Overweight Instructed to return to General Practitioner timeframe: 1 Month. Related to Unspecified Essential Hypertension Blood Pressure Management Relate d to Unspecified Essential Hypertension Weight management: I nstructed to return to General Practitioner timeframe: 1 Month. Related to Overweight Weight Management Education Rela donnell to Overweight Weight Management Education Rela donnell to Overweight Weight management: I nstructed to return to General Practitioner timeframe: 1 Month. Related to Overweight Assessments Type Assessment Date No Information Patient Care Teams Name Effective Dates (start - stop) Status Members No Information
--- NOTE | 2022-12-16 09:15 | CRLHL7_ITS ---
For Patients: As a result of the Century Cures Act, medical imaging exams and procedure reports are released immediately into your electronic medical record. You may view this report before your referring provider. If you have questions, please contact your health care provider. RIGHT AXILLARY ULTRASOUND, 12/16/2022 INDICATION Pain and palpable abnormality in the RIGHT axilla. History of RIGHT-sided breast cancer and lumpectomy with radiation therapy. RIGHT axillary lymphadenectomy. The patient states that she no longer has any pain and could not feel a palpable abnormality either. TECHNIQUE Directed RIGHT axillary ultrasound with this radiologist present. COMPARISON Correlation is made with the unilateral RIGHT breast mammogram of November 15, 2022 and a limited RIGHT breast ultrasound from that same date. FINDINGS No RIGHT axillary mass. There is an elongated lymph node measuring 3.9 cm in length by 0.7 cm in thickness. The lymph node cortex is within normal limits. No true discrete lymphadenopathy. These findings were discussed briefly with the patient. RECOMMENDATION Any further workup or follow-up should based on clinical grounds. Annual mammography is also recommended. BI-RADS Category 2: Benign A lay language report of this examination will be provided to the patient. LUIS MARIE M.D. Diagnostic/Nuclear Medicine Radiologist [email or web address] Transcribed: 12:[address]/Dictated by: Luis Marie MD @ 12/16/2022 10:02:00 AM (Electronically Signed)
== END 2022-12-16 08:55 | disposition home or self-care (01) ==
LOC: US 08:55
PROVIDERS: PCP Internal Medicine; Visit Provider Surgery
DX: N64.4 Mastodynia (principal); R59.1 Generalized enlarged lymph nodes
CPT/HCPCS: 76642; 76882

== ENCOUNTER 2022-12-22 23:06 | Outpatient (CLI) | payer MEDICARE, SELFPAY ==
--- OUTSIDE RECORDS SUMMARY | 2022-12-27 11:52 | XMS_ITS | Continuity of Care Document ---
Author Name Unknown Organization [facility] Address [address] [place] [address] Phone Care Team Providers Care Scalemaker Name Role Phone Guirnder Mc MD Unavailable Unavailable Allergies, Adverse Reactions, [...] Visit,New, Mod [facility], [address], [place], [place], [address] , [phone] [facility] Spinal stenosis, lumbar region with neurogenic claudication 2 Mehbod Amir. [facility], [address] [place] [address] 600, [place], [place], [address] , [place]. tel:[phone] Referring Provider: Timoteo Madrid[address], [address]. tel:[phone] Office/Outpa tient Visit,Est, Mod [facility], [address], [place], [place], [address] , [place] tel:[phone] [facility] Other forms of scoliosis, lumbar regionPost Op - Normal Follow-up 8 Mehbod Amir. [facility], [address] [place] [address] 600, [place], [place], [address] , [place]. [phone] Referring Provider: Corona Dixon [address], [address]. tel:[phone] Office/Outpa tient Visit,Est, Low [facility], [address], [place], [place], [address] , [place] tel: [phone] [facility] Encounter for other specified surgical aftercareArthrode sis status Mehbod Amir. [facility], [address] [place] [address] 600, [place], [place], [address] , [place]. tel: [phone] Referring Provider: Corona Dixon [address], [address]. tel:[phone] Office/Outpa tient Visit,Est, Mod [facility], [address], [place], [place], [address] , [place] tel: [phone] [facility] Spinal stenosis, lumbar region NOS Mehbod Amir. [facility], [address] [place] [address] 600, [place], [place], [address] , [place]. tel: [phone] Referring Provider: Corona Dixon [address], [address]. tel:[phone] [facility], [address], [place], [place], [address] , [place] tel: [phone] [facility] Encounter for follow-up examination after completed treatment for conditions other than malignant neoplasm Mehbod Amir. [facility], [address] [place] [address] [address], [place], [place], [address] , [place]. tel: [phone] Referring Provider: Corona Dixon [address], [address]. tel:[phone] [facility], [address], [place], [place], [address] , [place] tel: [phone] [facility] Spinal stenosis, lumbar region 7 Kimberly Finney. [address] [place] [address], [place], [place], [address] , [place]. tel:[phone] Referring Provider: Corona Dixon [address], [address]. tel:[phone] [facility], [address], [place], [place], [address] , [place] tel:[phone] [facility] No Information Sergei- 7 Mehbod Amir. [facility], [address] [place] [address] 600, [place], [place], [address] , [place]. tel:[phone] Referring Provider: Corona Dixon [address], [address]. tel:[phone] Office/Outpa tient Visit,Est, Mod [facility], [address], [place], [place], [address] , [place] tel: [phone] [facility] Spinal stenosis, lumbar region Apr-0 7 Mehbod Amir. [facility], [address] [place] [address], [place], [place], [address] , [place]. tel:[phone] Referring Provider: Corona Dixon [address], [address]. tel:[phone] [facility], [address], [place], [place], [address] , [place] tel:[phone] [facility] Spinal stenosis, lumbar region Sep- 9201 6 Kimberly Finney. [address] [place] [address] 600, [place], [place], [address] , [place]. tel:[phone] Referring Provider: Corona Dixon [address], [address]. tel:[phone] [facility], [address], [place], [place], [address] , [place] tel:[phone] [facility] Spinal stenosis, lumbar region Aug-0 8201 6 Mehbod Amir. [facility], [address] [place] [address] is, [place], [address] , . tel:[phone] Referring Provider: Corona Dixon [address], [address]. tel:[phone] [facility], [address], [place], [place], [address] , [place] [phone] [facility] No Information 6 Mehbod Amir. [facility], [address], [place], [place], [address] , . tel:[phone] Referring Provider: Corona Dixon [address], [address]. tel:[phone] Office/Outpa tient Visit,[facility], [address], [place], [place], [address] , tel:[phone] [facility] OverweightSpinal stenosis, lumbar region 6 Mehbod Amir. [facility], [address], [place], [place], [address] , . tel:[phone] Referring Provider: Corona Dixon [address], [address]. tel:[phone] Family History Family Member Type Diagnosis Age At Onset No Information Payers Payer name Insurance type Covered constitution party ID Valentin harrell(s) [employer] Medicare All2021 CI [id number] Social History Type Description Quantity Date Captured [...] Information Instructions Date Instruction Additional Infor kimberli Weight Management Education Rela donnell to Overweight Weight management: I nstructed to return to General Practitioner timeframe: 1 Month. Related to Overweight Blood Pressure Management Relate d to Unspecified Essential Hypertension Instructed to return to General Practitioner timeframe: 1 Month. Related to Unspecified Essential Hypertension Weight Management Education Rela donnell to Overweight Weight management: I nstructed to return to General Practitioner timeframe: 1 Month. Related to Overweight Weight Management Education Rela donnell to Overweight Weight management: I nstructed to return to General Practitioner timeframe: 1 Month. Related to Overweight Blood Pressure Management Relate d to Unspecified Essential Hypertension Instructed to return to General Practitioner timeframe: 1 Month. Related to Unspecified Essential Hypertension Weight management: I nstructed to return to General Practitioner timeframe: 1 Month. Related to Overweight Weight Management Education Rela donnlel to Overweight Assessments Type Assessment Date No Information Patient Care Teams Name Effective Dates (start - stop) Status Members No Information
--- OUTSIDE RECORDS SUMMARY | 2022-12-27 11:52 | XMS_ITS | Continuity of Care Document ---
Author Name Unknown Organization [facility] Address [address] [address] [place] [address] Phone Care Team Providers Care Orientation And Mobility Instructor Name Role Phone Unavailable Unavailable Unavailable Allergies, [...] Diagnoses Date Provider Providers Copied on Encounter [facility], [address] [address], [place], [place], [address], tel:[phone] [facility] No Information No Information Referring Provider: Coleman Dye MD G, [address] [place], [address]. tel:[phone] Family History Family Member Type Diagnosis Age At Onset No Information Payers Payer name Insurance type Covered constitution party ID Authoriza tion(s) [employer] CI [id number] Social History Type Description Quantity Date Captured [...]
== END 2022-12-22 23:07 | disposition home or self-care (01) ==
LOC: AMB 12-27 11:51
PROVIDERS: PCP Internal Medicine; Visit Provider Family Medicine
DX: R42 Dizziness and giddiness (principal); R11.2 Nausea with vomiting, unspecified; E11.649 Type 2 diabetes mellitus with hypoglycemia without coma
CPT/HCPCS: A0425; A0427

== ENCOUNTER 2022-12-22 23:40 | Emergency (ER) | payer MEDICARE, SELFPAY ==
[2022-12-22 23:50] VITALS: BP 177/99; PULSE 95; RESP 20; TEMP 37.2; O2SAT 99; BMI 26.6
[2022-12-23] MEDS: ONDANSETRON 2 MG/ML inj 4 MG IVP (00:29)
[2022-12-23] MEDS: FAMOTIDINE 10 MG/ML inj 20 MG IVP (00:30)
--- NOTE | 2022-12-23 00:30 | ED_ITS ---
HPI - General Adult General Chief complaint: Diabetic Related Problem Stated complaint: Nausea, Vomiting Time Seen by Provider: 12/23/22 00:00 Source: patient and EMS Mode of arrival: EMS History of Present Illness HPI narrative: 77-year-old female with insulin-dependent type 1 diabetes presents to the emergency department for evaluation of low blood sugar. Patient underwent hemorrhoid surgery earlier today, reports that the procedure was uncomplicated. It was performed [facility] and I do not have full access to the records. She reports that she took half of her typical basal insulin dose at about 330 in the morning and then the other half at about 11:00 a.m., after she returned from surgery. She did not eat breakfast of course but has had a good appetite since returning home per her report, has been drinking plenty of fluids and has been emptying her bladder without complication. She reports that she is passing flatus but does have some mucus and slight bloody drainage from the rectal area which would be expected. She started feeling nauseated this evening., feeling generally unwell, took her blood sugar and it was 40, called EMS. No chest pain, no shortness of breath, no abdominal pain, no fever. She does ask me if it is safe for her to take the hydrocodone that was prescribed to her. She does not think that it is contributing to the nausea tonight. She is not able to elaborate for me on how well she has been able to eat but rather dismisses the question in states that it is fine. She reminds me that she has had many prior surgeries, indicating that she knows how to handle her postoperative management, tolerance of pain medications, etc.. EMS did administer 4 mg of Zofran, she does feel like that is helping. Blood sugars have markedly improved after glucose given by EMS team. No neurological changes. Past medical history is quite extensive, mild chronic kidney disease, insulin- dependent diabetes, hypertension, vascular disease, multiple allergies. Medications reviewed as listed. She states that these are correct. No changes to social history. Previous labs reviewed. ROS is notable for the nausea and hypoglycemia as above as well as the postoperative symptoms reviewed. She otherwise denies times 12 systems. Related Data Home Medications Medication Instructions Recorded Confirmed omeprazole 20 mg capsule,delayed 20 mg PO DAILY 12/20/21 12/15/22 release acetaminophen 500 mg tablet 1,000 mg PO Q6H PRN 07/28/22 12/15/22 (Tylenol Extra Strength) biotin 2,500 mcg capsule 5,000 mcg PO QDAY 09/19/22 12/15/22 calcium carbonate 600 mg-vitamin cap PO 09/19/22 12/15/22 D3 25 mcg (1,000 unit) capsule glucos sul [id number]-Mn 1 cap PO DAILY 09/19/22 12/15/22 [Glucosamine Chondroitin] valacyclovir 500 mg tablet 500 mg PO BID PRN 09/19/22 12/15/22 pen needle, diabetic 31 gauge x 12/08/22 12/13/22/16 (BD Ultra-Fine Mini Pen Needle) hydrochlorothiazide 12.5 mg tablet 12.5 mg PO DAILY 12/13/22 12/15/22 magnesium oxide 400 mg (241.3 mg 800 mg PO DAILY 12/15/22 12/15/22 magnesium) tablet Previous Rx's Medication Instructions Recorded insulin aspart U-100 100 unit/mL 4 - 6 unit (0.04 - 0.06 mL) subcut 12/28/21 (3 mL) subcutaneous pen (Novolog .tidac #15 mL FlexPen U-100 Insulin aspart) flash glucose scanning reader #2 kits 12/31/21 ([employer] Daja 14 Day [place]) diazepam 2 mg tablet 2 mg PO DAILY PRN muscle spasm #20 02/22/22 tabs clobetasol 0.05 % topical ointment 1 applic topical .twice weekly #30 04/22/22 grams ondansetron HCl 4 mg tablet 4 mg PO Q6H PRN nausea and 05/30/22 vomiting #10 tabs carvedilol 6.25 mg tablet 6.25 mg PO BID #180 tabs 06/23/22 insulin glargine 100 unit/mL (3 18 unit (0.18 mL) subcut QAM #15 mL 07/13/22 mL) subcutaneous pen clopidogrel 75 mg tablet (Plavix) 75 mg PO DAILY #90 tabs 09/29/22 atorvastatin 10 mg tablet 10 mg PO HS #90 tabs 10/03/22 beclomethasone dipropionate 80 2 inh PO BID #10.6 grams 10/03/22 mcg/actuation HFA breath activated aerosol (Qvar RediHaler) gabapentin 300 mg capsule 300 mg PO HS #90 caps 10/03/22 albuterol sulfate 90 mcg/actuation 2 - 4 puff inhalation Q4-6H PRN 11/01/22 aerosol inhaler shortness of breath or wheezing #6.7 grams betamethasone dipropionate 0.05 % 1 applic topical BID #45 grams 11/22/22 topical cream clindamycin phosphate 1 % topical 1 applic topical QDAY #75 mL 11/22/22 gel, once daily timolol maleate 0.5 % eye drops 1 drp ophthalmic (eye) HS #15 mL 11/22/22 flash glucose sensor (FreeStyle #2 kits 11/29/22 Daja 14 Day Sensor kit) pen needle, diabetic 31 gauge x #300 ea 12/07/2209/08 (UltiCare Pen Needle) eszopiclone 2 mg tablet (Lunesta) 2 mg PO QHS #90 tabs 12/13/22 fluticasone propionate 50 2 spray intranasal BID #16 grams 12/14/22 mcg/actuation nasal spray,suspension (Allergy Relief (fluticasone)) Allergies Allergy/AdvReac Type Severity Reaction Status Date / Time hazelnut Allergy Severe Throat Verified 12/13/22 16:26 closes and hives adhesive Allergy Unknown Verified 12/13/22 16:26 cantaloupe Allergy Unknown Verified 12/13/22 16:26 codeine AdvReac Mild Nausea and Verified 12/13/22 16:26 Vomiting Sulfa drugs Allergy Severe Throat Uncoded 12/13/22 16:26 tightening trees Allergy Intermediate stuffed Uncoded 12/13/22 16:26 nose Sulfites Allergy Mild Rash Uncoded 12/13/22 16:26 Gluten Meal AdvReac Unknown GI Uncoded 12/13/22 16:26 intolerance PFSH PFSH Medical History Hair loss ?L65.9 - Nonscarring hair loss, unspecified (ICD-10) Hyperplastic polyp of intestine ?K63.5 - Polyp of colon (ICD-10) History of depression (2001) ?Z86.59 - Personal history of other mental and behavioral disorders (ICD-10) Surgical History History of basal cell carcinoma excision ?Z98.890 - Other specified postprocedural states (ICD-10) ?Z85.828 - Personal history of other malignant neoplasm of skin (ICD-10) History of foot surgery ?Z98.890 - Other specified postprocedural states (ICD-10) Hx of decompressive lumbar laminectomy ?Z98.890 - Other specified postprocedural states (ICD-10) History of cataract surgery ?Z98.49 - Cataract extraction status, unspecified eye (ICD-10) History of carpal tunnel release ?Z98.890 - Other specified postprocedural states (ICD-10) 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) ?Z96.659 - Presence of unspecified artificial knee joint (ICD-10) History of open reduction and internal fixation (ORIF) procedure (07/16/19) ?Z98.890 - Other specified postprocedural states (ICD-10) History of hysterectomy (07/08/09) ?Z90.710 - Acquired absence of both cervix and uterus (ICD-10) History of breast biopsy (07/08/09) ?Z98.890 - Other specified postprocedural states (ICD-10) History of blepharoplasty (07/08/09) ?Z98.890 - Other specified postprocedural states (ICD-10) History of bladder surgery (02/08/10) ?Z98.890 - Other specified postprocedural states (ICD-10) Social History Narrative: 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 History of tobacco use She does not use recreational drugs. She really drinks alcohol. She has 1 biologic child, and 4 adopted children. Smoking Status: Never smoker Do you use any of these nicotine containing products: None Second hand tobacco smoke exposure: No How often do you have a drink containing alcohol: never How often do you have six or more drinks on one occasion: Never AUDIT-C Alcohol total score: 0 Non-prescribed substance use: denies use Little interest or pleasure in doing things: not at all Feeling down, depressed, or hopeless: not at all service: No Exam Const: Vital Signs, click to edit/add: Vital Signs - 24 hr 12/22/22 23:50 Temperature 99.0 F Pulse Rate [Left P ulse Oximeter] 95 Respiratory Rate 20 Blood Pressure [Ri ght Upper Arm] 177/99 H Pulse Oximetry 99 Oxygen Delivery Me thod Room Air Documenting provider has reviewed patient's vital signs: yes Common normals: no apparent distress and alert General appearance: cooperative, comfortable and well kempt Orientation/consciousness: Yes awake HENMT: Common normals: normocephalic Head and scalp: normocephalic Face and sinus: normal facial exam Mouth: oral and palatal mucosa normal Throat: posterior oropharynx normal Eye: Common normals: conjunctivae normal and no scleral icterus General eye: normal appearance of both eyes Conjunctiva: conjunctiva(e) normal Neck & C-Spine: Common normals: no lymphadenopathy Resp: Common normals: normal respiratory effort, no use of accessory muscles and clear to auscultation bilaterally Effort & inspection: able to speak in complete sentences Auscultation: clear to auscultation bilaterally Cardio: Common normals: regular rate and regular rhythm Rate: regular rate Rhythm: regular rhythm Other: Early systolic murmur, sounds like a mild aortic stenosis. GI: Common normals: Normal to inspection, nondistended, normoactive bowel sounds present, soft to palpation, non-tender, no hepatosplenomegaly and no masses Palpation: soft and no hepatosplenomegaly Extremity: Common normals: normal to inspection and no pedal edema Neuro: Sensorium/orientation: awake and alert Speech: speech normal Motor exam: strength 5/5 throughout and no movement abnormalities noted Other: Ambulates to and from bathroom without difficulty. Psych: Common normals: mental status grossly normal, thought process normal and cooperative Appearance: well kempt Thought process: normal thought process Insight: insight good Judgement: judgment good Skin: Common normals: no rashes or lesions noted General skin exam: no rashes or lesions noted Course Course Hospital Course: Blood sugars have already improved following glucose administration. I would like to observe her for an hour, give a little bit of IV fluid, additional Zofran, famotidine and recheck blood sugars. She needs to prove to me that she can not eat. We did discuss today would like for her to be having a bedtime snack of her blood sugars below 150, discussed guidelines for nausea management within the next few days. I would like for her to have a supply of Zofran on hand. Discussed reducing her basal insulin by 3rd and not using her mealtime insulin if she is not eating. She does not think that her pain medications will contribute to her nausea. This will have to be seen of course. She does not feel as though there is the separate underlying abdominal process and based on exam, I concur. Will observe for an hour, ensure oral intake and if her blood sugars do continue to hold steady, she can be discharged home with her . Reevaluation(s) Time of Reevaluation #1: 02:25 Reevaluation #1: Patient has had no further vomiting although she is still reporting some nausea. She tolerated the fluids and medications well. She has urinated twice since she has been here. Repeat blood sugars over 300, no further hypoglycemia. She tolerated crackers and some liquids with no difficulty. She is reporting that she would like to go home and I see no reason why she should not. Alarm symptoms and further instructions reviewed by nursing team prior to discharge. Supply of Zofran given from in stay meds in case of persistent nausea. Vital Signs Vital signs: Initial Vital Signs Temperature 99.0 F 12/22/22 23:50 Temperature Source Temporal Artery Scan 12/22/22 23:50 Pulse Rate 95 12/22/22 23:50 Respiratory Rate 20 12/22/22 23:50 Blood Pressure 177/99 H 12/22/22 23:50 Blood Pressure Mean 125 H 12/22/22 23:50 Blood Pressure Position Sitting 12/22/22 23:50 Pulse Oximetry 99 12/22/22 23:50 Oxygen Delivery Method Room Air 12/22/22 23:50 Vital Signs Temperature 99.0 F 12/22/22 23:50 Pulse Rate 95 12/22/22 23:50 Respiratory Rate 20 12/22/22 23:50 Blood Pressure 177/99 H 12/22/22 23:50 Pulse Oximetry 99 12/22/22 23:50 Oxygen Delivery Method Room Air 12/22/22 23:50 Temperature 99.0 F 12/22/22 23:50 Pulse Rate 95 12/22/22 23:50 Respiratory Rate 20 12/22/22 23:50 Blood Pressure 177/99 H 12/22/22 23:50 Pulse Oximetry 99 12/22/22 23:50 Oxygen Delivery Method Room Air 12/22/22 23:50 Discharge Plan Discharge Clinical Impression: Hypoglycemia, Nausea & vomiting Patient Disposition: Home w/ Parent or Adult Condition: Improved Instructions: Acute Nausea and Vomiting (ED) Additional Instructions: As we discussed, I am glad your blood sugars doing better. I suspect that this is from a combination of the surgery, the anesthesia and the erratic eating schedule in the past 24 hours. You will need to keep a close eye on your blood sugars for the next couple of days. It is common to continue having nausea after any type of GI surgery including even hemorrhoids. I have prescribed some nausea medication that you may use to help combat this. It is likely the same medication that you have at home. Take 1 tablet every 6-8 hours as needed. As we discussed, your blood sugar should be 150-180 at bedtime to prevent hypoglycemia. You should have a snack at bedtime if your blood sugar is below 150. If your appetite is very good, continue on your typical insulin dosing. If your appetite is still poor and you are still nauseated later today, reduce your long-acting insulin by 1/3 and only use your mealtime insulin if you are eating. Continue drinking lots of fluids. Use your pain medication as prescribed. This may be contributing to your nausea. Hopefully will only needed for the 1st couple of days. Be in close discussion with her surgical team regarding her pain control options if this is not helpful. Come back to the emergency department if you are unable to keep your blood sugars up at safe levels. Activity Level: Activity as Tolerated Discharge Diet: Diabetic Prescriptions: No Action clobetasol 0.05 % ointment 1 applic TOPICAL .twice weekly Qty: 30 2RF Rx Instructions: APPLY SPARINGLY TO AFFECTED AREA acetaminophen [Tylenol Extra Strength] 500 mg tablet 1,000 mg PO Q6H PRN valacyclovir 500 mg tablet 500 mg PO BID PRN Rx Instructions: Take 2 tablet twice daily x 2 days as needed glucos sul [id number] [Glucosamine Chondroitin] 1 cap PO DAILY biotin 2,500 mcg capsule 5,000 mcg PO QDAY calcium carbonate-vitamin D3 600 mg-25 mcg (1,000 unit) capsule PO betamethasone dipropionate 0.05 % cream 1 applic TOPICAL BID Qty: 45 0RF Rx Instructions: Apply to affected area twice daily as needed timolol maleate 0.5 % drops 1 drp OPHTHALMIC (EYE) HS Qty: 15 0RF Rx Instructions: Apply to fingertips at bedtime. clindamycin phosphate 1 % gel, once daily 1 applic topical QDAY Qty: 75 1RF hydrochlorothiazide 12.5 mg tablet 12.5 mg PO DAILY eszopiclone [Lunesta] 2 mg tablet 2 mg PO QHS Qty: 90 2RF omeprazole 20 mg capsule,delayed release(DR/EC) 20 mg PO DAILY magnesium oxide 400 mg (241.3 mg magnesium) tablet 800 mg PO DAILY Rx Instructions: 400 mg in am, 200 mg pm insulin aspart U-100 [Novolog FlexPen U-100 Insulin] 100 unit/mL (3 mL) insulin pen 4 - 6 unit subcut .tidac Qty: 15 3RF (DME) FreeStyle Daja 14 Day [place] Misc See Rx Instructions .Route Qty: 2 11RF Rx Instructions: As directed diazepam 2 mg tablet 2 mg PO DAILY PRN (Reason: muscle spasm) Qty: 20 0RF ondansetron HCl 4 mg tablet 4 mg PO Q6H PRN (Reason: nausea and vomiting) Qty: 10 0RF carvedilol 6.25 mg tablet 6.25 mg PO BID Qty: 180 0RF insulin glargine 100 unit/mL (3 mL) insulin pen 18 unit SUBCUT QAM Qty: 15 3RF clopidogrel [Plavix] 75 mg tablet 75 mg PO DAILY Qty: 90 3RF atorvastatin 10 mg tablet 10 mg PO HS Qty: 90 3RF gabapentin 300 mg capsule 300 mg PO HS Qty: 90 3RF Qvar RediHaler 80 mcg/actuation HFA aerosol breath activated 2 inh PO BID Qty: 10.6 8RF albuterol sulfate 90 mcg/actuation HFA aerosol inhaler 2 - 4 puff inhalation Q4-6H PRN (Reason: shortness of breath or wheezing) Qty: 6.7 9RF (DME) FreeStyle Daja 14 Day Sensor Kit See Rx Instructions .Route Qty: 2 9RF Rx Instructions: As directed (DME) pen needle, diabetic [UltiCare Pen Needle] 31 gauge x 3/16 needle See Rx Instructions .Route Qty: 300 1RF Rx Instructions: use up to 6x daily (DME) pen needle, diabetic [BD Ultra-Fine Mini Pen Needle] 31 gauge x 3/16 needle See Rx Instructions .Route Rx Instructions: As directed fluticasone propionate [Allergy Relief (fluticasone)] 50 mcg/actuation spray,suspension 2 spray intranasal BID Qty: 16 11RF Rx Instructions: administer into each nostril Follow Up/Referrals: Lina Meléndez MD [Primary Care Provider] - Stand Alone Forms: [employer] Info Instructions
[2022-12-23] MEDS: 0.9 % SODIUM CHLORIDE 500 ML 500 ML IV (00:32)
--- OUTSIDE RECORDS SUMMARY | 2022-12-23 01:07 | XMS_ITS | Continuity of Care Document ---
Author Name Unknown Organization [facility] Address [address] [address] [place] [address] Phone Care Team Providers Care Package Clerk Name Role Phone Unavailable Unavailable Unavailable Allergies, Adverse Reactions, Alerts Substance Reaction Status Criticality polymyxin B Active No Information pramoxine Active No Information POLYMYXIN B SULFATE Active No Infor mation bacitracin Active No Information NEOMYCIN SULFATE Active No Informat ion Medications Medication Instructions Dosage Effective Dates (start - stop) Status Comments MINOCIN (unknown strength) Take one tablet by mouth daily Not Available - Active Singulair Unknown Take one tablet by mouth daily - Active Prevacid 30 mg Cap Take one capsule by mouth daily - Active TRAZODONE HCL (unknown strength) Use as directed Not Available - Active Avandia unknown Use as directed - Acti ve GLUCOPHAGE (unknown strength) Take one tablet by mouth two times per day Not Available - Active Premarin unknown Use as directed - Act verena Voltaren unknown Take one tablet by mouth daily - Active GLUCOTROL (unknown strength) Take one tablet by mouth daily Not Available - Active Effexor unknown Take 1 tablet by mouth daily - Active Advance Directives Directive Yes / No Effective Date File Name No Information Encounters Encounter Description Practice Location Reason(s) For Visit Diagnoses Date Provider Providers Copied on Encounter [facility], [address] [address], [place], [place], [id number], tel:[phone] [facility] No Information No Information Referring Provider: Coleman Dye MD [address], [address] [place], [address]. tel:[phone] Family History Family Member Type Diagnosis Age At Onset No Information Payers Payer name Insurance type Covered green party ID Authoriza tion(s) [employer] [id number] Social History Type Description Quantity Date Captured [...] No Information Instructions Date Instruction Additional Infor mation No Information Assessments Type Assessment Date No Information Patient Care Teams Name Effective Dates (start - stop) Status Members No Information
--- OUTSIDE RECORDS SUMMARY | 2022-12-23 01:07 | XMS_ITS | Continuity of Care Document ---
Author Name Unknown Organization [facility] Address [address] [place] [address] Phone Care Team Providers Care Webbing Seamer Pound Net Name Role Phone Gurinder Mc MD Unavailable Unavailable Allergies, Adverse Reactions, Alerts Substance Reaction Status Criticality Sulfa (Sulfonamide Antibiotics) anaphalaxis Active No Information hazelnut Active No Information codeine Active No Information Medications Medication Instructions Dosage Effective Dates (start - stop) Status Comments PROAIR DIGIHALER (unknown strength) Not Available - Active OMEPRAZOLE (unknown strength) Not Available - Active HYDROCODONE-ACETAMINOP HEN (unknown strength) Not Available - Active GABAPENTIN (unknown strength) Not Available - Active FINASTERIDE (unknown strength) Not Available - Active ALENDRONATE SODIUM (unknown strength) Not Available - Active AMBIEN (unknown strength) Not Available - Active LIPITOR (unknown strength) Not Available - Active CLOPIDOGREL (unknown strength) Not Available - Active LANTUS SOLOSTAR (unknown strength) Not Available - Active HUMALOG (unknown strength) Not Available - Active UROMAG (unknown strength) Not Available - Active CLONIDINE (unknown strength) Not Available - Active Procedures [...] Visit,New, Mod [facility], [address], [place], [place], [address] , [phone] [facility] Spinal stenosis, lumbar region with neurogenic claudication 2 Mehbod Amir. [facility], [address] [place] [address] 600, [place], [place], [address] , [place]. tel:[phone] Referring Provider: Timoteo Madrid[address], [address]. tel:[phone] Office/Outpa tient Visit,Est, Mod [facility], [address], [place], [place], [address] , [place] tel:[phone] [facility] Other forms of scoliosis, lumbar regionPost Op - Normal Follow-up 8 Mehbod Amir. [facility], [address] [place] [address] 600, [place], [place], [address] , [place]. [phone] Referring Provider: Corona Dixon [address], [address]. tel:[phone] Office/Outpa tient Visit,Est, Low [facility], [address], [place], [place], [address] , [place] tel: [phone] [facility] Encounter for other specified surgical aftercareArthrode sis status Mehbod Amir. [facility], [address] [place] [address] 600, [place], [place], [address] , [place]. tel: [phone] Referring Provider: Corona Dixon [address], [address]. tel:[phone] Office/Outpa tient Visit,Est, Mod [facility], [address], [place], [place], [address] , [place] tel: [phone] [facility] Spinal stenosis, lumbar region NOS Mehbod Amir. [facility], [address] [place] [address] 600, [place], [place], [address] , [place]. tel: [phone] Referring Provider: Corona Dixon [address], [address]. tel:[phone] [facility], [address], [place], [place], [address] , [place] tel: [phone] [facility] Encounter for follow-up examination after completed treatment for conditions other than malignant neoplasm Mehbod Amir. [facility], [address] [place] [address] [address], [place], [place], [address] , [place]. tel: [phone] Referring Provider: Corona Dixon [address], [address]. tel:[phone] [facility], [address], [place], [place], [address] , [place] tel: [phone] [facility] Spinal stenosis, lumbar region 7 Kimberly Finney. [address] [place] [address], [place], [address] , [place]. tel:[phone] Referring Provider: Corona Dixon [address], [address]. tel:[phone] [facility], [address], [place], [place], [address] , [place] tel:[phone] [facility] No Information Sergei- 7 Mehbod Amir. [facility], [address] [place] [address] 600, [place], [address] , [place]. tel:[phone] Referring Provider: Corona Dixon [address], [address]. tel:[phone] Office/Outpa tient Visit,Est, Mod [facility], [address], [place], [place], [address] , [place] tel: [phone] [facility] Spinal stenosis, lumbar region Apr-0 7 Mehbod Amir. [facility], [address] [place] [address], [place], [address] , [place]. tel:[phone] Referring Provider: Corona Dixon [address], [address]. tel:[phone] [facility], [address], [place], [place], [address] , [place] tel:[phone] [facility] Spinal stenosis, lumbar region Sep- 9201 6 Kimberly Finney. [address] [place] [address] 600, [place], [place], [address] , [place]. tel:[phone] Referring Provider: Corona Dixon [address], [address]. tel:[phone] [facility], [address], [place], [place], [address] , [place] tel:[phone] [facility] Spinal stenosis, lumbar region Aug-0 8201 6 Mehbod Amir. [facility], [address] [place] [address] [place], [place], [address] , . tel:[phone] Referring Provider: Corona Dixon [address], [address]. tel:[phone] [facility], [address], [place], [place], [address] , [place] [phone] [facility] No Information 6 Mehbod Amir. [facility], [address], [place], [place], [address] , . tel:[phone] Referring Provider: Corona Dixon [address], [address]. tel:[phone] Office/Outpa tient Visit,[facility], [address], [place], [place], [address] , tel:[phone] [facility] OverweightSpinal stenosis, lumbar region 6 Mehbod Amir. [facility], [address], [place], [place], [address] , . tel:[phone] Referring Provider: Corona Dixon [address], [address]. tel:[phone] Family History Family Member Type Diagnosis Age At Onset No Information Payers Payer name Insurance type Covered constitution party ID Valentin harrell(s) [employer] Medicare All2021 CI [id number] Social History Type Description Quantity Date Captured [...]
--- NOTE | 2022-12-23 01:13 | ED.NURSE ---
pt offered snacks per md request, pt asked for gluten free options, options provided, pt changed her mind and asked for heriberto crackers instead, - provided, pt ate without complaints.
== END 2022-12-23 02:14 | disposition home or self-care (01) ==
LOC: ED 12-23 01:05
PROVIDERS: Emergency Provider Family Medicine; PCP Internal Medicine
DX: E11.649 Type 2 diabetes mellitus with hypoglycemia without coma (principal); R11.2 Nausea with vomiting, unspecified
CPT/HCPCS: 82962; 96374; 96375; 99284; J2405; J7120; S0028

== ENCOUNTER 2023-01-05 14:58 | Outpatient (CLI) | payer MEDICARE, SELFPAY | END 2023-01-05 14:59 | disposition home or self-care (01) | LOC: NFLDREF 14:59 | PROVIDERS: PCP Internal Medicine; Visit Provider Family Medicine | DX: M54.9 Dorsalgia, unspecified (principal); D63.8 Anemia in other chronic diseases classified elsewhere; R53.83 Other fatigue | CPT/HCPCS: 80053 ==

== ENCOUNTER 2023-01-20 12:35 | Outpatient (CLI) | payer MEDICARE, SELFPAY ==
--- OUTSIDE RECORDS SUMMARY | 2023-01-20 12:38 | XMS_ITS | Continuity of Care Document ---
Author Name Unknown Organization [facility] Address [address] [place] [address] Phone Care Team Providers Care Contracts Specialist Name Role Phone Gurinder Mc MD Unavailable [...] Visit,New, Mod [facility], [address], [place], [place], [address] , [place] [phone] [facility] Spinal stenosis, lumbar region with neurogenic claudication 2 Mehbcaren Gibsonr. [facility], [address] [place] [address] 600, [place], [place], [address] , [place]. [phone] Referring Provider: Corona Dixon [address], [address]. tel:[phone] Office/Outpa tient Visit,Est, Mod [facility], [address], [place], [place], [address] , [place] [phone] [facility] Other forms of scoliosis, lumbar regionPost Op - Normal Follow-up 8 Mehbcaren Montoya [facility], [address] [place] [address], [place], [place], [address] , [place]. [phone] Referring Provider: Corona Dixon [address], [address]. tel:[phone] Office/Outpa tient Visit,Est, Low [facility], [address], [place], [place], [address] , [place] tel: [phone] [facility] Encounter for other specified surgical aftercareArthrode sis status 8 Mehbod Amir. [facility], [address] [place] [address], [place], [place], [address] , [place]. tel: [phone] Referring Provider: Corona Dixon [address], [address]. tel:[phone] Office/Outpa tient Visit,Est, Mod [facility], [address], [place], [place], [address] , [place] tel: [phone] [facility] Spinal stenosis, lumbar region NOS Mehbod Amir. [facility], [address] [place] [address] 600, [place], [place], [address] , [place]. tel:[phone] Referring Provider: Corona Dixon [address], [address]. tel:[phone] [facility], [address], [place], [place], [address] , [place] tel: [phone] [facility] Encounter for follow-up examination after completed treatment for conditions other than malignant neoplasm Mehbod Amir. [facility], [address] [place] [address], [place], [place], [address] , [place]. tel: [phone] Referring Provider: Corona Dixon [address], [address]. tel:[phone] [facility], [address], [place], [place], [address] , [place] tel:[phone] [facility] Spinal stenosis, lumbar region 7 Kimberly Finney. [address] [place] [address] 600, [place], [place], [address] , [place]. tel: [phone] Referring Provider: Corona Dixon [address], [address]. tel:[phone] [facility], [address], [place], [place], [address] , [place] tel: [phone] [facility] No Information Sergei- 7 Mehbod Amir. [facility], [address] [place] [address], [place], [place], [address] , [place]. tel: [phone] Referring Provider: Corona Dixon [address], [address]. tel:[phone] Office/Outpa tient Visit,Est, Mod [facility], [address], [place], [place], [address] , [place] tel: [phone] [facility] Spinal stenosis, lumbar region Apr- 7 Mehbod Amir. [facility], [address] [place] [address], [place], [place], [address] , [place]. tel: [phone] Referring Provider: Corona Dixon [address], [address]. tel:[phone] [facility], [address], [place], [place], [address] , [place] tel: [phone] [facility] Spinal stenosis, lumbar region Sep- 6 Kimberly Finney. [address] [place] [address] 600, [place], [place], [address] , [place]. tel: [phone] Referring Provider: Corona Dixon [address], [address]. tel:[phone] [facility], [address], [place], [place], [address] , [place] tel: [phone] [facility] Spinal stenosis, lumbar region Aug-0 8201 6 Mehbod Amir. [facility], [address] [place] [address], [place], [place], [address] , . tel:[phone] Referring Provider: Corona Dixon [address], [address]. tel:[phone] [facility], [address], [place], [place], [address] , [phone] [facility] No Information 6 Mehbod Amir. [facility], [address] [place] [address] [address], [place], [place], [address] , . [phone] Referring Provider: Corona Dixon [address], [address]. tel:[phone] Office/Outpa tient Visit,[facility], [address], [place], [place], [address] , [phone] [facility] OverweightSpinal stenosis, lumbar region 6 Mehbod Amir. [facility], [address] [place] [address] 600, [place], [place], [address] , . [phone] Referring Provider: Corona Dixon [address], [address]. tel:[phone] Family History Family Member Type Diagnosis Age At Onset No Information Payers Payer name Insurance type Covered constitution party ID Valentin harrell(s) [employer] Medicare All2021 CI [id number] Social History Type Description Quantity Date Captured [...] Plan Of Treatment Date Type Action Status Appointment Maryam Cortez BOOKED History Of Present Illness Encounter Date Complaint [...] timeframe: 1 Month. Related to Overweight Weight management: I nstructed to [...] Weight Management Education Rela donnell to Overweight Assessments Type Assessment Date No Information Patient Care Teams Name Effective Dates (start - stop) Status Members No Information
--- OUTSIDE RECORDS SUMMARY | 2023-01-20 12:38 | XMS_ITS | Continuity of Care Document ---
Author Name Unknown Organization [facility] Address [address] [address] [place] [address] Phone Care Team Providers Care Insecticide Mixer Name Role Phone Unavailable Unavailable Unavailable Allergies, [...] Diagnoses Date Provider Providers Copied on Encounter [facility], [address] [address], [place], [place], [address], tel:[phone] [facility] No Information No Information Referring Provider: Coleman Dye MD G, [address] [place], [address]. tel:[phone] Family History Family Member Type Diagnosis Age At Onset No Information Payers Payer name Insurance type Covered green party ID Authoriza tion(s) [employer] CI [id number] Social History Type Description Quantity Date Captured Comments Sex Female Smoking Status No Information Chief Complaint And Reason For Visit No Information Reason For Referral Reason For Referral No Information History Of Present Illness Encounter Date Complaint History Of Prese nt Illness No Information Functional Status Date Functional Assessmen t No Information Instructions Date Instruction Additional Infor mation No Information Assessments Type Assessment Date No Information Patient Care Teams Name Effective Dates (start - stop) Status Members No Information
== END 2023-01-20 12:36 | disposition home or self-care (01) ==
LOC: INJ CL 12:36
PROVIDERS: PCP Internal Medicine; Visit Provider Family Medicine
DX: M54.16 Radiculopathy, lumbar region (principal)
CPT/HCPCS: 62323; J0702; Q9966

== ENCOUNTER 2023-02-01 15:19 | Outpatient (CLI) | payer MEDICARE, SELFPAY ==
--- NOTE | 2023-02-01 15:30 | CRLHL7_ITS ---
For Patients: As a result of the 21st Century Cures Act, medical imaging exams and procedure reports are released immediately into your electronic medical record. You may view this report before your referring provider. If you have questions, please contact your health care provider. Indication: LUMBAR STENOSIS WITH NEUROGENIC CLAUDICATION Technique: Noncontrast sagittal and axial T1, T2, and sagittal STIR sequences are provided. Postcontrast sagittal and axial T1 weighted images were obtained after administration of IV contrast. Comparison: No prior studies available for comparison at this institution. Findings: Five lumbar type vertebral bodies. Grade 1 anterolisthesis at L2-3. Levoscoliosis with apex at L4. Severe disc height loss at L3-4, L4-5 and L5-S1. Posterolateral instrumented fusion and laminectomies at L3-4 level. Anterior osteophytic spurring at L2-3 through L5-S1. The conus medullaris is normal in signal and location. Atrophy of paraspinal muscles. Bilateral renal cysts. A few right-sided and single left-sided cyst demonstrate T2 hyperintense signal and may be hemorrhagic. T12-L1: No significant spinal canal stenosis or neural foramen narrowing. L1-2: Small left intraforaminal annular fissure. No significant spinal canal stenosis or neural foramen narrowing. L2-3: Moderate interspace narrowing. Retrolisthesis of L2 on L3. Grade 1 anterolisthesis and uncovering of the disc and endplate. Moderate facet arthrosis. Mild spinal canal stenosis. Moderate left neural foramen narrowing and possible impingement of the left L2 nerve roots. Mild right neural foramen narrowing. L3-4: Disc endplate degeneration. Mild right subarticular recess narrowing. Mild neural foramen narrowing bilaterally. L4-5: Severe disc space narrowing. Disc bulge and endplate osteophytic spurring. Mild facet arthrosis. Mild spinal canal narrowing. Moderate-severe right and mild left neural foramen narrowing. Impingement of the right L4 nerve. L5-S1: Severe disc height loss. Disc height and endplate degeneration. Prominent far lateral endplate osteophytes. Moderate facet arthrosis. Severe neural foramen narrowing with impingement of the exiting L5 nerve roots. Impression: 1. No acute osseous or ligamentous injury. No significant changes in multilevel lumbar spondylosis. Posterior-lateral instrumented fusion and laminectomies at L3-4 level. 2. At L5-S1, stable severe neural foramina narrowing bilaterally with impingement of exiting L5 nerve roots. 3. At L4-5, stable moderate-severe right neural foramen narrowing and impingement of the right L4 nerve roots. Mild spinal canal stenosis. 4. At L2-3, stable mild spinal canal stenosis and moderate left neural foramen narrowing with possible impingement of the exiting nerve roots. Milder degenerative changes at remaining levels detailed above. Dictated by David Alvares MD @ 02/02/2023 10:31:54 AM (Electronically Signed)
== END 2023-02-01 15:20 | disposition home or self-care (01) ==
PROVIDERS: PCP Internal Medicine; Visit Provider Family Medicine
DX: M48.062 Spinal stenosis, lumbar region with neurogenic claudication (principal); M51.36 Other intervertebral disc degeneration, lumbar region; M51.37 Other intervertebral disc degeneration, lumbosacral region; M54.16 Radiculopathy, lumbar region; Z98.1 Arthrodesis status; M47.896 Other spondylosis, lumbar region
CPT/HCPCS: 72158; A9575

== ENCOUNTER 2023-02-13 11:54 | Emergency (ER) | payer MEDICARE, SELFPAY ==
[2023-02-13 12:12] VITALS: BP 141/73; PULSE 66; RESP 16; TEMP 36.2; O2SAT 97; BMI 26.5
[2023-02-13 13:13] VITALS: BP 147/75; PULSE 64; RESP 18; O2SAT 100
--- NOTE | 2023-02-13 13:15 | ED.GENADULT ---
HPI - General Adult General Chief complaint: Abdominal Pain Stated complaint: Stomach issues Time Seen by Provider: 02/13/23 13:03 History of Present Illness HPI narrative: This is a pleasant 77-year-old female with a past medical history including Overactive bladder s/p Medtronic InterStim bladder placement Spring 2022, breast CA (lumpectomy 12/15. s/p radiation, did not tolerate anastrazole), 07/2013 hospitalization for bright red blood per rectum, Colonoscopy 09/06 revealed internal/external hemorrhoids, s/p left lateral hemorrhoidectomy 12/16 ,Anemia of chronic disease Hb around 10's 11/2011, History of ischemic stroke (Acute), Ischemic thalamic stroke 2015, remains on Plavix, transient ischemic attack (TIA), Rosacea, Psoriasis, Obstructive sleep apnea, Irritable bowel syndrome, hypertension, GERD presumed gastritis Spring 2015, Low back pain, insomnia, Asthma, DM2 (on insulin), Osteoporosis (Acute ~09/2021) who was referred to the ER today by her primary care provider with concern for GI bleeding. She has been having trouble with stomach upset from alendronate. Symptoms ongoing for several months. They had gotten better over the summer when she was off the alendronate for month but she is back on it now. Beginning last week she has been says supposed to take it each evening with her evening meal. About 6 days ago on 02/07 she had some pink tinged emesis. Unclear if that was truly blood or not. She had a doctor's note from 02/09. She is supposed to set up for an EGD, scheduled for February 20. She has been having dark-colored diarrhea that began yesterday, persisted through the night and through this morning. Diarrhea is black. No blood tinge. No further vomiting or bloody emesis. No fever. No recent antibiotics or specific risk factors for C diff. She has been feeling weak. No lightheadedness or syncope. She is on Plavix for secondary stroke prophylaxis. She has been taking it lately. No other blood thinners. Related Data Home Medications Medication Instructions Recorded Confirmed acetaminophen 500 mg tablet 1,000 mg PO Q6H PRN 07/28/22 02/13/23 (Tylenol Extra Strength) biotin 2,500 mcg capsule 5,000 mcg PO QDAY 09/19/22 02/13/23 calcium carbonate 600 mg-vitamin 1 cap PO DAILY 09/19/22 02/13/23 D3 25 mcg (1,000 unit) capsule glucos sul [id number] 1 cap PO DAILY 09/19/22 02/13/23 [Glucosamine Chondroitin] valacyclovir 500 mg tablet 500 mg PO BID PRN 09/19/22 02/13/23 pen needle, diabetic 31 gauge x 12/08/22 02/07/2309/08 (BD Ultra-Fine Mini Pen Needle) magnesium oxide 400 mg (241.3 mg 800 mg PO DAILY 12/15/22 02/13/23 magnesium) tablet nifedipine 30 mg tablet,extended 30 mg PO QDAY 02/06/23 02/13/23 release 24 hr Previous Rx's Medication Instructions Recorded flash glucose scanning reader #2 kits 12/31/21 ([employer] Daja 14 Day Logan) clobetasol 0.05 % topical ointment 1 applic topical .twice weekly #30 04/22/22 grams carvedilol 6.25 mg tablet 6.25 mg PO BID #180 tabs 06/23/22 clopidogrel 75 mg tablet (Plavix) 75 mg PO DAILY #90 tabs 09/29/22 atorvastatin 10 mg tablet 10 mg PO HS #90 tabs 10/03/22 beclomethasone dipropionate 80 2 inh PO BID #10.6 grams 10/03/22 mcg/actuation HFA breath activated aerosol (Qvar RediHaler) albuterol sulfate 90 mcg/actuation 2 - 4 puff inhalation Q4-6H PRN 11/01/22 aerosol inhaler shortness of breath or wheezing #6.7 grams betamethasone dipropionate 0.05 % 1 applic topical BID #45 grams 11/22/22 topical cream clindamycin phosphate 1 % topical 1 applic topical QDAY #75 mL 11/22/22 gel, once daily timolol maleate 0.5 % eye drops 1 drp ophthalmic (eye) HS #15 mL 11/22/22 flash glucose sensor ([employer] #2 kits 11/29/22 Daja 14 Day Sensor kit) pen needle, diabetic 31 gauge x #300 ea 12/07/2209/08 (UltiCare Pen Needle) eszopiclone 2 mg tablet (Lunesta) 2 mg PO QHS #90 tabs 12/13/22 fluticasone propionate 50 2 spray intranasal BID #16 grams 12/14/22 mcg/actuation nasal spray,suspension (Allergy Relief (fluticasone)) gabapentin 300 mg capsule 600 mg (2 x 300 mg) PO HS #90 caps 01/05/23 oxycodone 5 mg tablet 5 mg PO Q6H PRN severe #20 tabs 01/05/23 omeprazole 20 mg capsule,delayed 20 mg PO DAILY #90 caps 01/17/23 release insulin aspart U-100 100 unit/mL 15 unit (0.15 mL) subcut TID #15 mL 01/19/23 (3 mL) subcutaneous pen (Novolog FlexPen U-100 Insulin aspart) insulin glargine 100 unit/mL (3 32 unit (0.32 mL) subcut QAM #30 mL 01/19/23 mL) subcutaneous pen Allergies Allergy/AdvReac Type Severity Reaction Status Date / Time hazelnut Allergy Severe Throat Verified 02/13/23 12:20 closes and hives adhesive Allergy Unknown Verified 02/13/23 12:20 cantaloupe Allergy Unknown Verified 02/13/23 12:20 codeine AdvReac Mild Nausea and Verified 02/13/23 12:20 Vomiting Sulfa drugs Allergy Severe Throat Uncoded 02/07/23 14:33 tightening trees Allergy Intermediate stuffed Uncoded 02/06/23 14:23 nose Sulfites Allergy Mild Rash Uncoded 02/07/23 14:33 Gluten Meal AdvReac Unknown GI Uncoded 02/07/23 14:33 intolerance PFSH PFSH Medical History (Updated 02/13/23 @ 15:51 by Reg Bower MD) Hyperplastic polyp of intestine ?K63.5 - Polyp of colon (ICD-10) History of depression (2001) ?Z86.59 - Personal history of other mental and behavioral disorders (ICD-10) Surgical History (Updated 01/05/23 @ 12:37 by Brianna Lovelace MD) S/P breast lumpectomy (11/2021) ?Z98.890 - Other specified postprocedural states (ICD-10) History of hemorrhoidectomy ?Z98.890 - Other specified postprocedural states (ICD-10) History of basal cell carcinoma excision ?Z98.890 - Other specified postprocedural states (ICD-10) ?Z85.828 - Personal history of other malignant neoplasm of skin (ICD-10) History of foot surgery ?Z98.890 - Other specified postprocedural states (ICD-10) Hx of decompressive lumbar laminectomy ?Z98.890 - Other specified postprocedural states (ICD-10) History of cataract surgery ?Z98.49 - Cataract extraction status, unspecified eye (ICD-10) History of carpal tunnel release ?Z98.890 - Other specified postprocedural states (ICD-10) 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) ?Z96.659 - Presence of unspecified artificial knee joint (ICD-10) History of open reduction and internal fixation (ORIF) procedure (07/16/19) ?Z98.890 - Other specified postprocedural states (ICD-10) History of hysterectomy (07/08/09) ?Z90.710 - Acquired absence of both cervix and uterus (ICD-10) History of breast biopsy (07/08/09) ?Z98.890 - Other specified postprocedural states (ICD-10) History of blepharoplasty (07/08/09) ?Z98.890 - Other specified postprocedural states (ICD-10) History of bladder surgery (02/08/10) ?Z98.890 - Other specified postprocedural states (ICD-10) Social History Narrative: 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 History of tobacco use She does not use recreational drugs. She really drinks alcohol. She has 1 biologic child, and 4 adopted children. Smoking Status: Never smoker Do you use any of these nicotine containing products: None Second hand tobacco smoke exposure: No How often do you have a drink containing alcohol: never How often do you have six or more drinks on one occasion: Never AUDIT-C Alcohol total score: 0 Non-prescribed substance use: denies use Little interest or pleasure in doing things: not at all Feeling down, depressed, or hopeless: not at all service: No Exam Narrative: Exam Narrative: Constitutional: Appears well-developed and well-nourished. Alert. Conversant. Non toxic. HENT: Head: Atraumatic. Nose: Nose normal. Mouth/Throat: Oral mucosa is clear and moist. no trismus. Pharynx normal. Tonsils symmetric. No tonsillar enlargement, erythema, or exudate. Eyes: Conjunctivae normal, not pale. EOM normal. Pupils equal, round, and reactive to light. No scleral icterus. Neck: Normal range of motion. Neck supple. No tracheal deviation present. Cardiovascular: Normal rate, regular rhythm. No gallop. No friction rub. Soft systolic murmur heard. Symmetric radial artery pulses Pulmonary/Chest: Effort normal. No stridor. No respiratory distress. No wheezes. No rales. No rhonchi . No tenderness. Abdominal: Soft. Bowel sounds normal. No distension. No mass. No tenderness. No rebound. No guarding. Musculoskeletal: RUE: Normal range of motion. No tenderness. No deformity LUE: Normal range of motion. No tenderness. No deformity RLE: Normal range of motion. No edema. No tenderness. No deformity LLE: Normal range of motion. No edema. No tenderness. No deformity Neurological: Alert and oriented to person, place, and time. Normal strength. CN II-VII intact. No sensory deficit. GCS eye subscore is 4. GCS verbal subscore is 5. GCS motor subscore is 6. Normal coordination Skin: Skin is warm and dry. No rash noted. No pallor. Normal capillary refill. Psychiatric: Normal mood. Normal affect. Const: Vital Signs, click to edit/add: Vital Signs - 24 hr 02/13/23 12:12 02/13/23 13:13 Temperature 97.1 F L Pulse Rate [Pulse Oximeter] 66 64 Respiratory Rate 16 18 Blood Pressure [Ri ght Upper Arm] 141/73 H 147/75 H Pulse Oximetry 97 100 Oxygen Delivery Me thod Room Air Room Air Course Vital Signs Vital signs: Initial Vital Signs Temperature 97.1 F L 02/13/23 12:12 Temperature Source Temporal Artery Scan 02/13/23 12:12 Pulse Rate 66 02/13/23 12:12 Respiratory Rate 16 02/13/23 12:12 Blood Pressure 141/73 H 02/13/23 12:12 Blood Pressure Mean 95 02/13/23 12:12 Blood Pressure Position Sitting 02/13/23 12:12 Pulse Oximetry 97 02/13/23 12:12 Oxygen Delivery Method Room Air 02/13/23 12:12 Vital Signs Temperature 97.1 F L 02/13/23 12:12 Pulse Rate 66 02/13/23 12:12 Respiratory Rate 16 02/13/23 12:12 Blood Pressure 141/73 H 02/13/23 12:12 Pulse Oximetry 97 02/13/23 12:12 Oxygen Delivery Method Room Air 02/13/23 12:12 Temperature 97.1 F L 02/13/23 12:12 Pulse Rate 64 02/13/23 13:13 Respiratory Rate 18 02/13/23 13:13 Blood Pressure 147/75 H 02/13/23 13:13 Pulse Oximetry 100 02/13/23 13:13 Oxygen Delivery Method Room Air 02/13/23 13:13 Medical Decision Making MDM Narrative Medical decision making narrative: This patient presents with black stools/black diarrhea since yesterday. She also had an episode of some pink tinged emesis last week, which potentially could have been small volume hematemesis. This symptoms are concerning for an upper gastrointestinal bleed. She has had some ongoing trouble with epigastric pain while on alendronate. Primary concern would be for bleeding gastritis or bleeding ulcer. No history of liver disease to suggest varices. Differential considered includes ulcer, gastritis, avm, tumor, esophagitis, variceal bleed, stacia-bedolla tear, ingestion, etc. Patient is hemodynamically stable. No history of chronic liver disease. No indication to start octreotide as my suspicion of variceal bleed is so low. She was started on Protonix given a dose IV here in the ER. At this point her hemoglobin is normal at 12.1 (up slightly from her chronic baseline, which likely reflects hemoconcentration/dehydration from her diarrhea). She is feeling fine. However she is on Plavix which could raise risk for large volume GI bleed and rapid decompensation. Although this point she is stable my recommendation is for her to be admitted for hemoglobin monitoring and for us to expedite EGD within the next 24 hours for further evaluation. She does not want to stay in the hospital. She and I had a polite, forthright discussion about the risks of going home. She understands the risks of heavy bleeding and and still wants to go. She already has an outpatient EGD scheduled for 1 week from now. She raises concern for possible C diff causing the diarrhea. No definite risk factors for that. She was not able to provide a liquid diarrheal stool sample here in the ER. She did have a small formed stool from which we were able to obtain a Hemoccult which is positive. At this point low risk for C diff. Cannot be definitively ruled out without further testing. We have reviewed precautions and she will Return if bloody vomiting continues/ progresses, more than 1 more bloody stools, lightheaded when standing, worsening or new abdominal pain. Stable for discharge, questions answered. Strict instructions given for home. Lab Data Labs: Lab Results 02/13/23 02/13/23 Range/Units 14:00 15:12 WBC 5.54 (4.50-11.00) K/uL RBC 3.87 L (4.00-5.20) m/uL Hgb 12.1 (12.0-16.0) gm/dL Hct 36.3 (33.0-51.0) % MCV 94 (80-100) fL MCH 31 (26-34) pg MCHC 33 (32-36) gm/dL RDW Coeff of Don 12.4 (11.5-15.5) % Plt Count 241 (140-440) K/uL Neut % (Auto) 78.9 H (42.0-72.0) % Lymph % (Auto) 11.0 L (20-44) % Pitkin % (Auto) 7.0 (0.0-11.0) % Eos % (Auto) 2.7 (0.0-7.0) % Baso % (Auto) 0.4 (0.0-3.0) % Neut # (Auto) 4.40 (1.7-7.0) K/uL Lymph # (Auto) 0.60 L (0.90-2.90) K/uL Pitkin # (Auto) 0.40 (0.00-0.90) K/UL Eos # (Auto) 0.15 (0.00-0.50) K/uL Baso # (Auto) 0.02 (0.00-0.30) K/uL Abs Immat Gran (auto) 0.00 (0.00-0.30) K/uL Imm/Tot Granulo (auto) 0.0 % Sodium 131 L (135-149) mmol/L Potassium 4.1 (3.6-5.1) mmol/L Chloride 97 (96-114) mmol/L Carbon Dioxide 30 (20-32) mmol/L Anion Gap 4 L (7-15) mEq/L BUN 17 (7-30) mg/dL Creatinine 0.5 (0.5-1.5) mg/dL Estimated Creat Clear 43.74 Estimated GFR 98 ml/min Glucose 142 H (60-115) mg/dL Lactate 0.6 (0.5-1.9) mmol/L Calcium 9.0 (8.4-10.6) mg/dL Stool Occult Blood Positive A (Negative) Blood Type A Positive Antibody Screen NEGATIVE Discharge Plan Discharge Clinical Impression: Acute upper GI bleed Patient Disposition: Home, Self-Care Condition: Stable Instructions: Gastrointestinal Bleeding (ED) Additional Instructions: As we discussed, please come back to the ER right away if you get worse especially if you had increasing diarrhea or bloody/black stool, fever, abdominal pain, lightheadedness or weakness, fainting spells, or any concerns. Please recheck with your regular doctor within the next 2-3 days to have repeat lab work and hemoglobin recheck . Activity Level: No Restrictions Prescriptions: No Action clobetasol 0.05 % ointment 1 applic TOPICAL .twice weekly Qty: 30 2RF Rx Instructions: APPLY SPARINGLY TO AFFECTED AREA nifedipine 30 mg tablet extended release 24hr 30 mg PO QDAY oxycodone 5 mg tablet 5 mg PO Q6H PRN (Reason: severe) Qty: 20 0RF gabapentin 300 mg capsule 600 mg PO HS Qty: 90 3RF acetaminophen [Tylenol Extra Strength] 500 mg tablet 1,000 mg PO Q6H PRN valacyclovir 500 mg tablet 500 mg PO BID PRN Rx Instructions: Take 2 tablet twice daily x 2 days as needed glucos sul [id number] [Glucosamine Chondroitin] 1 cap PO DAILY biotin 2,500 mcg capsule 5,000 mcg PO QDAY calcium carbonate-vitamin D3 600 mg-25 mcg (1,000 unit) capsule 1 cap PO DAILY betamethasone dipropionate 0.05 % cream 1 applic TOPICAL BID Qty: 45 0RF Rx Instructions: Apply to affected area twice daily as needed timolol maleate 0.5 % drops 1 drp OPHTHALMIC (EYE) HS Qty: 15 0RF Rx Instructions: Apply to fingertips at bedtime. clindamycin phosphate 1 % gel, once daily 1 applic topical QDAY Qty: 75 1RF eszopiclone [Lunesta] 2 mg tablet 2 mg PO QHS Qty: 90 2RF magnesium oxide 400 mg (241.3 mg magnesium) tablet 800 mg PO DAILY Rx Instructions: 400 mg in am, 200 mg pm (DME) FreeStyle Daja 14 Day Logan Misc See Rx Instructions .Route Qty: 2 11RF Rx Instructions: As directed carvedilol 6.25 mg tablet 6.25 mg PO BID Qty: 180 0RF clopidogrel [Plavix] 75 mg tablet 75 mg PO DAILY Qty: 90 3RF atorvastatin 10 mg tablet 10 mg PO HS Qty: 90 3RF Qvar RediHaler 80 mcg/actuation HFA aerosol breath activated 2 inh PO BID Qty: 10.6 8RF albuterol sulfate 90 mcg/actuation HFA aerosol inhaler 2 - 4 puff inhalation Q4-6H PRN (Reason: shortness of breath or wheezing) Qty: 6.7 9RF (DME) FreeStyle Daja 14 Day Sensor Kit See Rx Instructions .Route Qty: 2 9RF Rx Instructions: As directed (DME) pen needle, diabetic [UltiCare Pen Needle] 31 gauge x 3/16 needle See Rx Instructions .Route Qty: 300 1RF Rx Instructions: use up to 6x daily (DME) pen needle, diabetic [BD Ultra-Fine Mini Pen Needle] 31 gauge x 3/16 needle See Rx Instructions .Route Rx Instructions: As directed fluticasone propionate [Allergy Relief (fluticasone)] 50 mcg/actuation spray,suspension 2 spray intranasal BID Qty: 16 11RF Rx Instructions: administer into each nostril omeprazole 20 mg capsule,delayed release(DR/EC) 20 mg PO DAILY Qty: 90 3RF insulin glargine 100 unit/mL (3 mL) insulin pen 32 unit SUBCUT QAM Qty: 30 3RF insulin aspart U-100 [Novolog FlexPen U-100 Insulin] 100 unit/mL (3 mL) insulin pen 15 unit subcut TID Qty: 15 3RF Follow Up/Referrals: Lina Meléndez MD [Primary Care Provider] - Stand Alone Forms: Ancestry Info Instructions
[2023-02-13 14:04] LABS: Lactate* 0.6 mmol/L (0.5-1.9)
[2023-02-13] MEDS: 0.9 % SODIUM CHLORIDE 1000 ml 1,000 ML IV (14:04)
[2023-02-13] MEDS: PANTOPRAZOLE SODIUM 40 MG INJ IVP (14:06)
[2023-02-13 14:10] LABS: Basophils Absolute Auto 0.02 K/uL (0.00-0.30); Basophils Percent Auto 0.4 % (0.0-3.0); Eosinophils Absolute Auto 0.15 K/uL (0.00-0.50); Eosinophils Percent Auto 2.7 % (0.0-7.0); Hematocrit 36.3 % (33.0-51.0); Hemoglobin* 12.1 gm/dL (12.0-16.0); Mean Corpuscular HGB Conc 33 gm/dL (32-36); Mean Corpuscular Hemoglobin 31 pg (26-34); Mean Corpuscular Volume 94 fL (80-100); Neutrophils Percent Auto 78.9 % (42.0-72.0); Platelet Count* 241 K/uL (140-440); RDW Coefficient of Variation % 12.4 % (11.5-15.5); Red Blood Count 3.87 m/uL (4.00-5.20); White Blood Count* 5.54 K/uL (4.50-11.00)
[2023-02-13 14:11] LABS: Slide Review Reflex No
[2023-02-13 14:27] LABS: Chloride* 97 mmol/L (96-114); Potassium* 4.1 mmol/L (3.6-5.1); Sodium* 131 mmol/L (135-149)
[2023-02-13 14:29] LABS: Creatinine* 0.5 mg/dL (0.5-1.5); Est. Creatinine Clearance* 43.74; Estimated Glomerular Filt Rate 98 ml/min
[2023-02-13 14:30] LABS: Anion Gap 4 mEq/L (7-15); Blood Urea Nitrogen* 17 mg/dL (7-30); Carbon Dioxide* 30 mmol/L (20-32); Glucose* 142 mg/dL (60-115)
[2023-02-13 15:46] LABS: Fecal Occult Blood* Positive (Negative)
--- NOTE | 2023-02-13 15:52 | ED.NURSE ---
did send off stool specimens for occult blood and c dif. bm was soft and semi formed was greenish dark.
[2023-02-13 16:57] LABS: C.Difficile Negative (Negative); CDIFFEPI 027 PRESUMPTIVE NEGATIVE (Negative)
--- NOTE | 2023-02-14 08:12 | ED.NURSE ---
Patient called re: she and Dr. Bower spoke yesterday about the possibility of being admitted and she'd like to do that for an EGD. Per Dr. Bower's dictation, admission was recommended but declined. He advised patient return to ED if having further concern. Patient advised, notes she will call her PCP first and then likely return to ED for evaluation. No further questions or concerns.
== END 2023-02-13 16:05 | disposition home or self-care (01) ==
PROVIDERS: Emergency Provider Emergency Medicine; PCP Internal Medicine
DX: K92.2 Gastrointestinal hemorrhage, unspecified (principal)
CPT/HCPCS: 36415; 80048; 82270; 83605; 85025; 86850; 86900; 86901; 87493; 96374; 99283; 99284; C9113; J7030

== ENCOUNTER 2023-02-14 09:40 | Observation (INO) | payer MEDICARE, SELFPAY ==
[2023-02-14] VITALS (7 sets, daily range): BP systolic 133–190; BP diastolic 66–88; PULSE 71–77; RESP 16–20; TEMP 35.7–36.9; O2SAT 72–100; BMI 26.1; BMI 25.6
--- NOTE | 2023-02-14 10:48 | ED_ITS ---
HPI - General Adult General Time Seen by Provider: 10:48 Date Seen: 02/14/23 Chief complaint: GI Bleed Stated complaint: rectal bleeding Time Seen by Provider: 02/14/23 10:48 Source: patient, RN notes reviewed and old records reviewed (Reviewed ER note from yesterday as well as labs.) Mode of arrival: ambulatory Limitations: no limitations History of Present Illness HPI narrative: Florencio is a 77-year-old female returning to the ER for hopes of admission for her dark tarry stools in GI bleeding. This is a patient that has been on alendronate and was having stomach upset after her last dose of alendronate recently. That has abated since she last took her alendronate. Denies any heartburn or reflux symptoms ever, no difficulty swallowing ever. She has had dark tarry stools, was evaluated in the ER yesterday. Hemoglobin was 12.1 yesterday. She remains on her Plavix. She does believe she took it this morning, states she was not told withhold it. She does have an upcoming outpatient EGD scheduled on the 20 of February for her current GI complaints. It sounds as if her stomach is been bothering her for a while. Today she denies any chest pain, no shortness of breath, does not seem to exhibit any acute symptoms of any acute blood loss on questioning. Related Data Home Medications Medication Instructions Recorded Confirmed acetaminophen 500 mg tablet 1,000 mg PO Q6H PRN 07/28/22 02/14/23 (Tylenol Extra Strength) biotin 2,500 mcg capsule 5,000 mcg PO QDAY 09/19/22 02/14/23 calcium carbonate 600 mg-vitamin 1 cap PO DAILY 09/19/22 02/14/23 D3 25 mcg (1,000 unit) capsule glucos sul [id number] 1 cap PO DAILY 09/19/22 02/14/23 [Glucosamine Chondroitin] valacyclovir 500 mg tablet 500 mg PO BID PRN 09/19/22 02/14/23 pen needle, diabetic 31 gauge x 12/08/22 02/07/2309/08 (BD Ultra-Fine Mini Pen Needle) magnesium oxide 400 mg (241.3 mg 800 mg PO DAILY 12/15/22 02/14/23 magnesium) tablet nifedipine 30 mg tablet,extended 30 mg PO QDAY 02/06/23 02/14/23 release 24 hr Previous Rx's Medication Instructions Recorded flash glucose scanning reader #2 kits 12/31/21 ([employer] Daja 14 Day [place]) clobetasol 0.05 % topical ointment 1 applic topical .twice weekly #30 04/22/22 grams carvedilol 6.25 mg tablet 6.25 mg PO BID #180 tabs 06/23/22 clopidogrel 75 mg tablet (Plavix) 75 mg PO DAILY #90 tabs 09/29/22 atorvastatin 10 mg tablet 10 mg PO HS #90 tabs 10/03/22 beclomethasone dipropionate 80 2 inh PO BID #10.6 grams 10/03/22 mcg/actuation HFA breath activated aerosol (Qvar RediHaler) albuterol sulfate 90 mcg/actuation 2 - 4 puff inhalation Q4-6H PRN 11/01/22 aerosol inhaler shortness of breath or wheezing #6.7 grams betamethasone dipropionate 0.05 % 1 applic topical BID #45 grams 11/22/22 topical cream clindamycin phosphate 1 % topical 1 applic topical QDAY #75 mL 11/22/22 gel, once daily timolol maleate 0.5 % eye drops 1 drp ophthalmic (eye) HS #15 mL 11/22/22 flash glucose sensor ([employer] Top TVyle #2 kits 11/29/22 Daja 14 Day Sensor kit) pen needle, diabetic 31 gauge x #300 ea 12/07/22 3/ (UltiCare Pen Needle) eszopiclone 2 mg tablet (Lunesta) 2 mg PO QHS #90 tabs 12/13/22 fluticasone propionate 50 2 spray intranasal BID #16 grams 12/14/22 mcg/actuation nasal spray,suspension (Allergy Relief (fluticasone)) gabapentin 300 mg capsule 600 mg (2 x 300 mg) PO HS #90 caps 01/05/23 oxycodone 5 mg tablet 5 mg PO Q6H PRN severe #20 tabs 01/05/23 omeprazole 20 mg capsule,delayed 20 mg PO DAILY #90 caps 01/17/23 release insulin aspart U-100 100 unit/mL 15 unit (0.15 mL) subcut TID #15 mL 01/19/23 (3 mL) subcutaneous pen (Novolog FlexPen U-100 Insulin aspart) insulin glargine 100 unit/mL (3 32 unit (0.32 mL) subcut QAM #30 mL 01/19/23 mL) subcutaneous pen Allergies Allergy/AdvReac Type Severity Reaction Status Date / Time hazelnut Allergy Severe Throat Verified 02/14/23 09:59 closes and hives adhesive Allergy Unknown Verified 02/14/23 09:59 cantaloupe Allergy Unknown Verified 02/14/23 09:59 codeine AdvReac Mild Nausea and Verified 02/14/23 09:59 Vomiting Sulfa drugs Allergy Severe Throat Uncoded 02/07/23 14:33 tightening trees Allergy Intermediate stuffed Uncoded 02/06/23 14:23 nose Sulfites Allergy Mild Rash Uncoded 02/07/23 14:33 Gluten Meal AdvReac Unknown GI Uncoded 02/07/23 14:33 intolerance Review of Systems Narrative: As per HPI. [facility] Medical History (Updated 02/13/23 @ 15:51 by Reg Bower MD) Hyperplastic polyp of intestine ?K63.5 - Polyp of colon (ICD-10) History of depression (2001) ?Z86.59 - Personal history of other mental and behavioral disorders (ICD-10) Surgical History (Updated 01/05/23 @ 12:37 by Brianna Lovelace MD) S/P breast lumpectomy (11/2021) ?Z98.890 - Other specified postprocedural states (ICD-10) History of hemorrhoidectomy ?Z98.890 - Other specified postprocedural states (ICD-10) History of basal cell carcinoma excision ?Z98.890 - Other specified postprocedural states (ICD-10) ?Z85.828 - Personal history of other malignant neoplasm of skin (ICD-10) History of foot surgery ?Z98.890 - Other specified postprocedural states (ICD-10) Hx of decompressive lumbar laminectomy ?Z98.890 - Other specified postprocedural states (ICD-10) History of cataract surgery ?Z98.49 - Cataract extraction status, unspecified eye (ICD-10) History of carpal tunnel release ?Z98.890 - Other specified postprocedural states (ICD-10) 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) ?Z96.659 - Presence of unspecified artificial knee joint (ICD-10) History of open reduction and internal fixation (ORIF) procedure (07/16/19) ?Z98.890 - Other specified postprocedural states (ICD-10) History of hysterectomy (07/08/09) ?Z90.710 - Acquired absence of both cervix and uterus (ICD-10) History of breast biopsy (07/08/09) ?Z98.890 - Other specified postprocedural states (ICD-10) History of blepharoplasty (07/08/09) ?Z98.890 - Other specified postprocedural states (ICD-10) History of bladder surgery (02/08/10) ?Z98.890 - Other specified postprocedural states (ICD-10) Social History Narrative: 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 History of tobacco use She does not use recreational drugs. She really drinks alcohol. She has 1 biologic child, and 4 adopted children. Smoking Status: Never smoker Do you use any of these nicotine containing products: None Second hand tobacco smoke exposure: No How often do you have a drink containing alcohol: never How often do you have six or more drinks on one occasion: Never AUDIT-C Alcohol total score: 0 Non-prescribed substance use: denies use Little interest or pleasure in doing things: not at all Feeling down, depressed, or hopeless: not at all service: No Exam Const: Vital Signs, click to edit/add: Vital Signs - 24 hr 02/14/23 09:48 02/14/23 11:50 Temperature 96.3 F L Pulse Rate [Right Pulse Oximeter] 74 72 Respiratory Rate 20 18 Blood Pressure [Ri ght Upper Arm] 159/85 H 133/6 L Pulse Oximetry 100 72 L Oxygen Delivery Me thod Room Air Room Air 77-year-old female that is alert interac tive no apparent distress, sclera clear. Neck is supple, no masses. Lungs are clear with good air entry, no wheezing or crackles. CV regular rate and rhythm. Abdomen is soft, nondistended, no tenderness, no masses. Rectal exam/stool collection for blood is not done as was just done yesterday demonstrating positive fecal occult blood. Documenting provider has reviewed patient's vital signs: yes Common normals: no apparent distress, average body habitus, oriented x3, no limitations, healthy appearing and alert General appearance: cooperative, comfortable, well kempt and well developed Neuro: Common normals: oriented x3 Sensorium/orientation: alert Psych: Appearance: well kempt Course Course Hospital Course: Will obtain basic blood work with a CBC and basic metabolic panel, she will be observed while here. Will see if there is any change in her hemoglobin. It is possible that she may be stable to continue outpatient observation and toe EGD can be done. Being on alendronate could preclude her to esophagitis but typically would have more esophageal symptoms than what she is experiencing. This certainly sounds like an upper GI bleed with dark tarry stools that are positive for fecal occult blood. She currently is hemodynamically stable and does not appear to have any acute emergent needs to intervene on any active bleeding at this time. Reevaluation(s) Time of Reevaluation #1: 12:59 Reevaluation #1: Have reviewed with Maryam that her hemoglobin has dropped 1 g since yesterday. She does document ongoing GI losses with her ongoing dark tarry stool. At this time she does tell me that she has been feeling more dizzy and weak but thought it was because of the new blood pressure medicine started by Dr. Lopez. She is advised that she is going to be getting a dose of IV Protonix. She does understand that we are not able to guarantee that an EGD will be done while she is in the hospital. Consultations Consultation #1: Did review case with our surgeon Dr. Garza. She does agree that this patient could be admitted for observation. As far as having an EGD done, there are no scheduled providers for tomorrow, could be considered to be added on if they could find someone whom could do it and staff to perform procedure. Did subsequently talk to the hospitalist Dr. Brady. She agrees with observation of this patient. There has been a 1 g drop in hemoglobin since yesterday, closer review of her chart only has her on 20 mg omeprazole. Will give her 80 mg IV Protonix here. Time: 12:48 Vital Signs Vital signs: Initial Vital Signs Temperature 96.3 F L 02/14/23 09:48 Temperature Source Temporal Artery Scan 02/14/23 09:48 Pulse Rate 74 02/14/23 09:48 Pulse Rhythm Regular 02/14/23 09:48 Pulse Strength 3+ Normal 02/14/23 09:48 Respiratory Rate 20 02/14/23 09:48 Blood Pressure 159/85 H 02/14/23 09:48 Blood Pressure Mean 109 H 02/14/23 09:48 Blood Pressure Position Sitting 02/14/23 09:48 Pulse Oximetry 100 02/14/23 09:48 Oxygen Delivery Method Room Air 02/14/23 09:48 Vital Signs Temperature 96.3 F L 02/14/23 09:48 Pulse Rate 74 02/14/23 09:48 Respiratory Rate 20 02/14/23 09:48 Blood Pressure 159/85 H 02/14/23 09:48 Pulse Oximetry 100 02/14/23 09:48 Oxygen Delivery Method Room Air 02/14/23 09:48 Temperature 96.3 F L 02/14/23 09:48 Pulse Rate 72 02/14/23 11:50 Respiratory Rate 18 02/14/23 11:50 Blood Pressure 133/6 L 02/14/23 11:50 Pulse Oximetry 72 L 02/14/23 11:50 Oxygen Delivery Method Room Air 02/14/23 11:50 Medical Decision Making Lab Data Lab results reviewed: Yes I reviewed the patient's lab results Labs: Lab Results 02/14/23 Range/Units 11:08 WBC 6.16 (4.50-11.00) K/uL RBC 3.52 L (4.00-5.20) m/uL Hgb 11.1 L (12.0-16.0) gm/dL Hct 33.3 (33.0-51.0) % MCV 95 (80-100) fL MCH 32 (26-34) pg MCHC 33 (32-36) gm/dL RDW Coeff of Don 12.6 (11.5-15.5) % Plt Count 219 (140-440) K/uL Neut % (Auto) 81.5 H (42.0-72.0) % Lymph % (Auto) 8.6 L (20-44) % [place] % (Auto) 7.3 (0.0-11.0) % Eos % (Auto) 2.1 (0.0-7.0) % Baso % (Auto) 0.3 (0.0-3.0) % Neut # (Auto) 5.00 (1.7-7.0) K/uL Lymph # (Auto) 0.50 L (0.90-2.90) K/uL [place] # (Auto) 0.40 (0.00-0.90) K/UL Eos # (Auto) 0.13 (0.00-0.50) K/uL Baso # (Auto) 0.02 (0.00-0.30) K/uL Abs Immat Gran (auto) 0.01 (0.00-0.30) K/uL Imm/Tot Granulo (auto) 0.2 % Sodium 131 L (135-149) mmol/L Potassium 3.4 L (3.6-5.1) mmol/L Chloride 98 (96-114) mmol/L Carbon Dioxide 27 (20-32) mmol/L Anion Gap 6 L (7-15) mEq/L BUN 17 (7-30) mg/dL Creatinine 0.5 (0.5-1.5) mg/dL Estimated Creat Clear 43.74 Estimated GFR 98 ml/min Glucose 155 H (60-115) mg/dL Calcium 8.4 (8.4-10.6) mg/dL Discharge Plan Discharge Prescriptions: No Action clobetasol 0.05 % ointment 1 applic TOPICAL .twice weekly Qty: 30 2RF Rx Instructions: APPLY SPARINGLY TO AFFECTED AREA nifedipine 30 mg tablet extended release 24hr 30 mg PO QDAY oxycodone 5 mg tablet 5 mg PO Q6H PRN (Reason: severe) Qty: 20 0RF gabapentin 300 mg capsule 600 mg PO HS Qty: 90 3RF acetaminophen [Tylenol Extra Strength] 500 mg tablet 1,000 mg PO Q6H PRN valacyclovir 500 mg tablet 500 mg PO BID PRN Rx Instructions: Take 2 tablet twice daily x 2 days as needed glucos sul [id number] [Glucosamine Chondroitin] 1 cap PO DAILY biotin 2,500 mcg capsule 5,000 mcg PO QDAY calcium carbonate-vitamin D3 600 mg-25 mcg (1,000 unit) capsule 1 cap PO DAILY betamethasone dipropionate 0.05 % cream 1 applic TOPICAL BID Qty: 45 0RF Rx Instructions: Apply to affected area twice daily as needed timolol maleate 0.5 % drops 1 drp OPHTHALMIC (EYE) HS Qty: 15 0RF Rx Instructions: Apply to fingertips at bedtime. clindamycin phosphate 1 % gel, once daily 1 applic topical QDAY Qty: 75 1RF eszopiclone [Lunesta] 2 mg tablet 2 mg PO QHS Qty: 90 2RF magnesium oxide 400 mg (241.3 mg magnesium) tablet 800 mg PO DAILY Rx Instructions: 400 mg in am, 200 mg pm (DME) FreeStyle Daja 14 Day [place] Misc See Rx Instructions .Route Qty: 2 11RF Rx Instructions: As directed carvedilol 6.25 mg tablet 6.25 mg PO BID Qty: 180 0RF clopidogrel [Plavix] 75 mg tablet 75 mg PO DAILY Qty: 90 3RF atorvastatin 10 mg tablet 10 mg PO HS Qty: 90 3RF Qvar RediHaler 80 mcg/actuation HFA aerosol breath activated 2 inh PO BID Qty: 10.6 8RF albuterol sulfate 90 mcg/actuation HFA aerosol inhaler 2 - 4 puff inhalation Q4-6H PRN (Reason: shortness of breath or wheezing) Qty: 6.7 9RF (DME) FreeStyle Daja 14 Day Sensor Kit See Rx Instructions .Route Qty: 2 9RF Rx Instructions: As directed (DME) pen needle, diabetic [UltiCare Pen Needle] 31 gauge x 3/16 needle See Rx Instructions .Route Qty: 300 1RF Rx Instructions: use up to 6x daily (DME) pen needle, diabetic [BD Ultra-Fine Mini Pen Needle] 31 gauge x 3/16 needle See Rx Instructions .Route Rx Instructions: As directed fluticasone propionate [Allergy Relief (fluticasone)] 50 mcg/actuation spray,suspension 2 spray intranasal BID Qty: 16 11RF Rx Instructions: administer into each nostril omeprazole 20 mg capsule,delayed release(DR/EC) 20 mg PO DAILY Qty: 90 3RF insulin glargine 100 unit/mL (3 mL) insulin pen 32 unit SUBCUT QAM Qty: 30 3RF insulin aspart U-100 [Novolog FlexPen U-100 Insulin] 100 unit/mL (3 mL) insulin pen 15 unit subcut TID Qty: 15 3RF Follow Up/Referrals: Lina Meléndez MD [Primary Care Provider] -
[2023-02-14 11:16] LABS: Basophils Absolute Auto 0.02 K/uL (0.00-0.30); Basophils Percent Auto 0.3 % (0.0-3.0); Eosinophils Absolute Auto 0.13 K/uL (0.00-0.50); Eosinophils Percent Auto 2.1 % (0.0-7.0); Hematocrit 33.3 % (33.0-51.0); Hemoglobin* 11.1 gm/dL (12.0-16.0); Immature Granulocytes Abs Auto 0.01 K/uL (0.00-0.30); Immature Granulocytes Pct Auto 0.2 %; Lymphocytes Percent Auto 8.6 % (20-44); Mean Corpuscular HGB Conc 33 gm/dL (32-36); Mean Corpuscular Hemoglobin 32 pg (26-34); Mean Corpuscular Volume 95 fL (80-100); Monocytes Percent Auto 7.3 % (0.0-11.0); Neutrophils Percent Auto 81.5 % (42.0-72.0); Platelet Count* 219 K/uL (140-440); RDW Coefficient of Variation % 12.6 % (11.5-15.5); Red Blood Count 3.52 m/uL (4.00-5.20); White Blood Count* 6.16 K/uL (4.50-11.00)
[2023-02-14 11:23] LABS: Slide Review Reflex No
[2023-02-14 11:27] LABS: Chloride* 98 mmol/L (96-114); Potassium* 3.4 mmol/L (3.6-5.1); Sodium* 131 mmol/L (135-149)
[2023-02-14 11:30] LABS: Creatinine* 0.5 mg/dL (0.5-1.5); Est. Creatinine Clearance* 43.74; Estimated Glomerular Filt Rate 98 ml/min
[2023-02-14 11:31] LABS: Anion Gap 6 mEq/L (7-15); Blood Urea Nitrogen* 17 mg/dL (7-30); Calcium* 8.4 mg/dL (8.4-10.6); Carbon Dioxide* 27 mmol/L (20-32); Glucose* 155 mg/dL (60-115)
[2023-02-14] MEDS: PANTOPRAZOLE SODIUM 40 MG INJ 80 MG IVP (13:19)
--- NOTE | 2023-02-14 13:24 | ED.NURSE ---
Pt report given to [facility] nurse.
--- NOTE | 2023-02-14 14:43 | PC.NURSE ---
End of shift note: Patient is a new admit from today. Has had loose, greasy, black stools since last . Was seen in ED yesterday and discharged. Had a few more loose black stools overnight and came back to ED. Has not had any BM since coming to med surg. Voiding without difficulty. Patient has diabetes and monitors this with a metronic device. PIV in place. Does have chronic back pain and takes tylenol and oxycodone q6h hours. Demands that we give it ontime and around the clock. Patient has been hypertensive since coming to med/surg. Will continue to monitor. Denies nausea but does have epigastric pain after eating. Has been NPO today. EGD being arranged for tomorrow. Alert and oriented. Independent in room. Murmur heard in heart sounds. Lung sounds clear. uses cpap at night.
[2023-02-14] MEDS: OXYCODONE 5 MG TABLET PO (15:01)
[2023-02-14] MEDS: ACETAMINOPHEN 325 MG TABLET 650 MG PO (15:01)
--- NOTE | 2023-02-14 16:16 | PM.IMHP1 ---
Hospitalist- H&P: HPI History of Present Illness Date Seen: 02/14/23 Chief complaint: rectal bleeding Narrative: Maryam Cortez is a 77 year old female with diabetes and history of stroke admitted through the emergency department with 5 day history of melanotic diarrhea. She reports that starting last she started having black diarrhea stools multiple times per day. There was no maroon or bloody discoloration. She does take iron tablets. She is not taking Pepto-Bismol. She has not had new abdominal pain vomiting or fever. She does report that when she takes her Fosamax she gets epigastric pain. She is on omeprazole for history of gastroesophageal reflux. She is also on clopidogrel for history of stroke about 7 years ago. No anticoagulation. She has not had any maroon or bright red blood per rectum. Colonoscopy in 2013 showing hyperplastic polyps. [facility] Medical History Hyperplastic polyp of intestine ?K63.5 - Polyp of colon (ICD-10) History of depression (2001) ?Z86.59 - Personal history of other mental and behavioral disorders (ICD-10) Surgical History S/P breast lumpectomy (11/2021) ?Z98.890 - Other specified postprocedural states (ICD-10) History of hemorrhoidectomy ?Z98.890 - Other specified postprocedural states (ICD-10) History of basal cell carcinoma excision ?Z98.890 - Other specified postprocedural states (ICD-10) ?Z85.828 - Personal history of other malignant neoplasm of skin (ICD-10) History of foot surgery ?Z98.890 - Other specified postprocedural states (ICD-10) Hx of decompressive lumbar laminectomy ?Z98.890 - Other specified postprocedural states (ICD-10) History of cataract surgery ?Z98.49 - Cataract extraction status, unspecified eye (ICD-10) History of carpal tunnel release ?Z98.890 - Other specified postprocedural states (ICD-10) 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) ?Z96.659 - Presence of unspecified artificial knee joint (ICD-10) History of open reduction and internal fixation (ORIF) procedure (07/16/19) ?Z98.890 - Other specified postprocedural states (ICD-10) History of hysterectomy (07/08/09) ?Z90.710 - Acquired absence of both cervix and uterus (ICD-10) History of breast biopsy (07/08/09) ?Z98.890 - Other specified postprocedural states (ICD-10) History of blepharoplasty (07/08/09) ?Z98.890 - Other specified postprocedural states (ICD-10) History of bladder surgery (02/08/10) ?Z98.890 - Other specified postprocedural states (ICD-10) Family History (Updated 02/14/23 @ 16:25 by Coleman Gonzalez MD) Mother Diabetes Coronary artery disease Stroke Social History Narrative: 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 History of tobacco use She does not use recreational drugs. She really drinks alcohol. She has 1 biologic child, and 4 adopted children. What is your current living situation?: I presently have a place to live Problems where you live: no known problems Problems where you live details: none In the past 12 months, utilities in danger of being shut off: no In the past 12 mos, have been you worried that your food would run out before you had money to buy more?: never true In the past 12 mos, the food you bought just didn't last and you didn't have money to buy more?: never true Highest level of school completed/degree received: Master's degree Smoking Status: Never smoker Do you use any of these nicotine containing products: None Second hand tobacco smoke exposure: No How often do you have a drink containing alcohol: never How often do you have six or more drinks on one occasion: Never AUDIT-C Alcohol total score: 0 Non-prescribed substance use: denies use Caffeine: No How often does anyone, including family, friends and others, physically hurt you: never How often does anyone, including family, friends and others, insult or talk down to you: never How often does anyone, including family, friends and others, threaten you with harm: never How often does anyone, including family, friends and others, scream or curse at you: never Little interest or pleasure in doing things: not at all Feeling down, depressed, or hopeless: not at all service: No Meds Home Medications and Allergies Home Medications Medication Instructions Recorded Confirmed Type acetaminophen 500 mg tablet 1,000 mg PO Q6H PRN 07/28/22 02/14/23 History (Tylenol Extra Strength) biotin 2,500 mcg capsule 5,000 mcg PO QDAY 09/19/22 02/14/23 History calcium carbonate 600 mg-vitamin 1 cap PO DAILY 09/19/22 02/14/23 History D3 25 mcg (1,000 unit) capsule glucos sul [id number] 1 cap PO DAILY 09/19/22 02/14/23 History [Glucosamine Chondroitin] valacyclovir 500 mg tablet 500 mg PO BID PRN 09/19/22 02/14/23 History pen needle, diabetic 31 gauge x 12/08/22 02/07/23 History 3/16 (BD Ultra-Fine Mini Pen Needle) magnesium oxide 400 mg (241.3 mg 800 mg PO DAILY 12/15/22 02/14/23 History magnesium) tablet nifedipine 30 mg tablet,extended 30 mg PO DAILY 02/06/23 02/14/23 History release 24 hr betamethasone dipropionate 0.05 % 1 applic topical BID PRN 02/14/23 02/14/23 History topical cream insulin aspart U-100 100 unit/mL 15 unit subcut TIDWM 02/14/23 02/14/23 History (3 mL) subcutaneous pen (Novolog FlexPen U-100 Insulin aspart) Home Medication Comments: Vitron-C b.i.d. Allergies Allergy/AdvReac Type Severity Reaction Status Date / Time hazelnut Allergy Severe Throat Verified 02/14/23 09:59 closes and hives adhesive Allergy Unknown Verified 02/14/23 09:59 cantaloupe Allergy Unknown Verified 02/14/23 09:59 codeine AdvReac Mild Nausea and Verified 02/14/23 09:59 Vomiting Sulfa drugs Allergy Severe Throat Uncoded 02/07/23 14:33 tightening trees Allergy Intermediate stuffed Uncoded 02/06/23 14:23 nose Sulfites Allergy Mild Rash Uncoded 02/07/23 14:33 Gluten Meal AdvReac Unknown GI Uncoded 02/07/23 14:33 intolerance Exam Narrative: Exam Narrative: She is alert and appears in no distress. She gives her own history. Eyes normal. Oropharynx normal. Respirations are clear to auscultation. Neck is supple without mass or adenopathy. Cardiovascular: S1, S2, 2/6 systolic ejection murmur heard best at the right upper sternal border. Abdomen: Bowel sounds active. Abdomen is soft without tenderness or mass. Extremities with no significant edema. She moves all 4 extremities well. She has intact peripheral pulses. Const: Vital Signs, click to edit/add: Vital Signs - 24 hr 02/14/23 09:48 02/14/23 11:50 02/14/23 13:51 Temperature 96.3 F L 98.4 F Pulse Rate [Pulse Oximeter] 71 Pulse Rate [Right Pulse Oximeter] 74 72 Respiratory Rate 20 18 16 Blood Pressure [Le ft Arm] 178/82 H Blood Pressure [Ri ght Upper Arm] 159/85 H 133/66 Pulse Oximetry 100 72 L 99 Oxygen Delivery Me thod Room Air Room Air Room Air 02/14/23 15:33 Temperature 98.4 F Pulse Rate [Pulse Oximeter] Pulse Rate [Right Pulse Oximeter] Respiratory Rate Blood Pressure [Le ft Arm] Blood Pressure [Ri ght Upper Arm] Pulse Oximetry Oxygen Delivery Me thod Documenting provider has reviewed patient's vital signs: yes Hospitalist - H&P: Result Labs Labs: Short CBC 02/14/23 Range/Units 11:08 WBC 6.16 (4.50-11.00) K/uL Hgb 11.1 L (12.0-16.0) gm/dL Hct 33.3 (33.0-51.0) % Plt Count 219 (140-440) K/uL BMP 02/14/23 11:08 Sodium 131 L Potassium 3.4 L Chloride 98 Carbon Dioxide 27 BUN 17 Creatinine 0.5 Glucose 155 H Calcium 8.4 Assessment and Plan Assessment and plan (1) Acute upper GI bleed: Problem comment: Hold clopidogrel. Plan EGD tomorrow. Monitor hemoglobin and vital signs. Status: Acute (2) Anemia of chronic disease: Problem comment: Hb around 10's 11/2011. Hemoglobin yesterday 12.1 today 11.1. Continue to monitor Status: Acute (3) History of ischemic stroke: Problem comment: Ischemic thalamic stroke 2016. Symptoms were left-sided numbness which has entirely resolved remains on Plavix. Plavix temporarily held. Status: Acute (4) Type 2 diabetes mellitus: Problem comment: Dxed 1980s, on Insulin since 2006, also on Metformin (in past) Hold long-acting insulin. Patient will self manage mealtime and sliding scale while pending EGD Status: Acute Plan Patient is mid the hospital for evaluation and management of ongoing melanotic diarrhea. Vital signs have been relatively stable. Hemoglobin is relatively stable. Arrange EGD to risk stratify. Hold Plavix. Hold long-acting insulin pending EGD results. Total time spent today is 75 minutes, 50 minutes in coordination of care and discussing with patient and other providers ongoing evaluation management of GI bleeding
[2023-02-14] MEDS: POTASSIUM CHLORIDE 10 MEQ CAPSULE ER 20 MEQ PO (16:37)
[2023-02-14] MEDS: FLUTICASONE PROPIONATE NASAL 2 SPRAY NOSTRIL-B (18:01)
--- NOTE | 2023-02-14 18:51 | PC.NURSE ---
Pt has Lunesta from home in bin. No stools since admission. Walking braun. Uses own BG monitor. Will self-determine insulin amount. Chronic Low back pain want oxy and Tylenol Q6. NPO at 0000. No N/V reported. IND.
[2023-02-14] MEDS: NIFEdipine 30 MG TAB.ER.24 PO (19:47)
[2023-02-14] MEDS: carvediloL 6.25 MG TABLET PO (19:47)
[2023-02-14] MEDS: ATORVASTATIN 10 MG TABLET PO (20:50)
[2023-02-14] MEDS: SODIUM CHLORIDE 0.9 % (FLUSH) 10 ML SYRINGE 5 ML IVF (20:51)
[2023-02-14] MEDS: GABAPENTIN 300 MG CAPSULE 600 MG PO (20:51)
[2023-02-14] MEDS: CALCIUM CARBONATE 500 MG CHEW PO (22:12)
[2023-02-15 03:30] VITALS: BP 119/63; PULSE 69; RESP 16; TEMP 37.2; O2SAT 98
--- NOTE | 2023-02-15 07:05 | PC.NURSE ---
Pt is alert and oriented x3. Afebrile. Pt denies pain, chest pain, SOB, and N/V. Pt is on a NPO diet that started at 0000 02/15/23?and voiding. Pt is up ad mode in room. Pt slept throughout most of night. Pt reported feeling dehydrated, keno writer/runner brought in mouth swabs and mouth moisturizer, and reported to MD, MD ordered fluids for oncoming shift.
[2023-02-15 07:09] LABS: Chloride* 99 mmol/L (96-114); Sodium* 134 mmol/L (135-149)
[2023-02-15 07:10] LABS: Potassium* 3.8 mmol/L (3.6-5.1)
[2023-02-15 07:12] LABS: Creatinine* 0.6 mg/dL (0.5-1.5); Est. Creatinine Clearance* 43.74; Estimated Glomerular Filt Rate 94 ml/min
[2023-02-15 07:13] LABS: Anion Gap 7 mEq/L (7-15); Blood Urea Nitrogen* 21 mg/dL (7-30); Calcium* 9.1 mg/dL (8.4-10.6); Carbon Dioxide* 28 mmol/L (20-32); Glucose* 145 mg/dL (60-115)
[2023-02-15 07:30] VITALS: BP 163/82; PULSE 74; RESP 16; TEMP 36.7; O2SAT 99
[2023-02-15] MEDS: 0.9 % SODIUM CHLORIDE 1000 ml 1,000 ML 125 ML IV (07:55)
[2023-02-15] MEDS: SODIUM CHLORIDE 0.9 % (FLUSH) 10 ML SYRINGE 5 ML IVF (07:56)
[2023-02-15] MEDS: FLUTICASONE PROPIONATE NASAL 2 SPRAY NOSTRIL-B (08:03)
[2023-02-15] MEDS: MAGNESIUM OXIDE 400 MG TABLET 800 MG PO (08:04)
[2023-02-15] MEDS: carvediloL 6.25 MG TABLET PO (08:04)
[2023-02-15] MEDS: OXYCODONE 5 MG TABLET PO (09:30)
[2023-02-15] MEDS: ACETAMINOPHEN 500 MG TABLET 1000 MG PO (09:30)
[2023-02-15 09:47] LABS: Hemoglobin* 11.6 gm/dL (12.0-16.0)
--- NOTE | 2023-02-15 12:25 | P.ANES_ITS ---
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
[2023-02-15 12:30] VITALS: BP 152/78; PULSE 73; RESP 16; TEMP 36.8; O2SAT 98
[2023-02-15 12:40] VITALS: BP 137/71; PULSE 81; RESP 16; TEMP 36.8; O2SAT 100
[2023-02-15 12:50] VITALS: BP 127/84; PULSE 79; RESP 16; TEMP 36.6; O2SAT 99
--- NOTE | 2023-02-15 12:52 | P.DS_ITS ---
DS: Providers Provider Date Seen: 02/15/23 Date of admission: 02/14/23 13:14 Primary care physician: Lina Meléndez MD Admitting Clinician: Mary Brady MD Attending Physician on discharge: Montserrat Cash MD Date of Discharge: 02/15/23 DS: Diagnosis Discharge Diagnosis (1) Acute upper GI bleed: Status: Acute Problem details: - admitted 02/14 for melanotic stools - EGD performed on 02/[address] Schafer of General Surgery, no acute findings noted with the exception of mildly erythematous gastric mucosa - Bleeding did not recur during stay, Hgb remained stable - patient appropriate for d/c on 02/15, will discuss outpatient colonoscopy with PCP (2) Anemia of chronic disease: Status: Acute Problem details: - Hgb on admission 12.1 --> 11.1 --> 11.6 (3) History of ischemic stroke: Status: Acute Problem details: - Ischemic thalamic stroke 2015. Symptoms were left-sided numbness which has entirely resolved; remains on Plavix, which was held during hospitalization 02/14- (4) Type 2 diabetes mellitus: Status: Acute Problem details: - Dxed , on Insulin since 2006, also on Metformin (in past) - home on previous medications with PCP f/u DS: Summary Hospital Course Hospital Course: Maryam is a very pleasant 77-year-old female who was admitted to the hospital for melanotic stools. Given concern for upper GI bleed, she was kept NPO and EGD was performed on hospital day 1. No acute bleeding was noted, hemoglobin remained stable, and patient had no recurrence of melena, requesting discharge home on 02/15. Medication changes upon discharge, until follow-up with PCP: - she will continue to hold her Plavix (on this for history of CVA) - stay off of Fosamax - double omeprazole Comorbidities otherwise remained stable. Status at Discharge Functional status at discharge: independent ambulation Overall status at discharge: patient is progressing back to baseline Time Spent with Patient Time attestation: Total time spent providing and/or coordinating discharge services: Time spent: Greater than 30 minutes Specific discharge activities: Care coordination with specialty team, medication reconciliation, patient Education Exam Narrative: Exam Narrative: GEN: Alert and oriented HEENT: EOMIs bilaterally, no scleral icterus CV: RRR, harsh holosystolic murmur heard best at left sternal border with radiation to bilateral carotids R: LCTA bilaterally without concerning wheezing, air movement adequate Ext: wwp, nonpitting edema bilateral ankles, stable and chronic per patient Skin: No concerning skin lesions or rashes on exposed skin Neuro: Nonfocal Psych: Appropriate Const: Vital Signs, click to edit/add: Vital Signs - 24 hr 02/14/23 13:51 02/14/23 15:00 02/14/23 15:33 Temperature 98.4 F 98.4 F 98.4 F Pulse Rate [Pulse Oximeter] 71 71 Respiratory Rate 16 16 Blood Pressure [Le ft Arm] 178/82 H 178/82 H Pulse Oximetry 99 99 Oxygen Delivery Me thod Room Air Room Air 02/14/23 19:00 02/14/23 22:56 02/15/23 03:30 Temperature 98.4 F 97.8 F 98.9 F Pulse Rate [Pulse Oximeter] 77 77 69 Respiratory Rate 16 16 16 Blood Pressure [Le ft Arm] 182/88 H 190/87 H 119/63 Pulse Oximetry 99 100 98 Oxygen Delivery Me thod Room Air Room Air Room Air 02/15/23 07:30 02/15/23 07:30 Temperature 98.1 F Pulse Rate [Pulse Oximeter] 74 74 Respiratory Rate 16 16 Blood Pressure [Le ft Arm] 163/82 H Pulse Oximetry 99 Oxygen Delivery Me thod Room Air DS: Data Data Completed and Pending Labs on day of discharge: Labs from last 24 hours 02/15/23 02/15/23 09:30 06:37 Hgb 11.6 L Sodium 134 L Potassium 3.8 Chloride 99 Carbon Dioxide 28 Anion Gap 7 BUN 21 Creatinine 0.6 Estimated Creat Clear 43.74 Estimated GFR 94 Glucose 145 H Calcium 9.1 Lab Acknowledgement Test Added Discharge Plan Discharge Disposition: Home, Self-Care Date of Admission: 02/14/23 13:14 Attending Provider on Discharge: Montserrat Cash Primary Care Provider: Lina Meléndez Condition: Improved Anticipated Discharge Date/Time: 02/15/23 12:37 Discharge Medications: Continued nifedipine 30 mg tablet extended release 24hr 30 mg PO DAILY oxycodone 5 mg tablet 5 mg PO Q6H PRN (Reason: severe) Qty: 20 0RF gabapentin 300 mg capsule 600 mg PO HS Qty: 90 3RF acetaminophen [Tylenol Extra Strength] 500 mg tablet 1,000 mg PO Q6H PRN valacyclovir 500 mg tablet 500 mg PO BID PRN glucos sul [id number] [Glucosamine Chondroitin] 1 cap PO DAILY biotin 2,500 mcg capsule 5,000 mcg PO DAILY calcium carbonate-vitamin D3 600 mg-25 mcg (1,000 unit) capsule 1 cap PO DAILY eszopiclone [Lunesta] 2 mg tablet 2 mg PO QHS Qty: 90 2RF magnesium oxide 400 mg (241.3 mg magnesium) tablet 800 mg PO DAILY betamethasone dipropionate 0.05 % cream 1 applic TOPICAL BID PRN Rx Instructions: Apply to affected area twice daily as needed insulin aspart U-100 [Novolog FlexPen U-100 Insulin] 100 unit/mL (3 mL) insulin pen 15 unit subcut TIDWM (DME) FreeStyle Daja 14 Day Dixon Misc See Rx Instructions .Route Qty: 2 11RF Rx Instructions: As directed carvedilol 6.25 mg tablet 6.25 mg PO BID Qty: 180 0RF atorvastatin 10 mg tablet 10 mg PO HS Qty: 90 3RF Qvar RediHaler 80 mcg/actuation HFA aerosol breath activated 2 inh PO BID Qty: 10.6 8RF albuterol sulfate 90 mcg/actuation HFA aerosol inhaler 2 - 4 puff inhalation Q4-6H PRN (Reason: shortness of breath or wheezing) Qty: 6.7 9RF (DME) FreeStyle Daja 14 Day Sensor Kit See Rx Instructions .Route Qty: 2 9RF Rx Instructions: As directed (DME) pen needle, diabetic [UltiCare Pen Needle] 31 gauge x 3/16 needle See Rx Instructions .Route Qty: 300 1RF Rx Instructions: use up to 6x daily (DME) pen needle, diabetic [BD Ultra-Fine Mini Pen Needle] 31 gauge x 3/16 needle See Rx Instructions .Route Rx Instructions: As directed fluticasone propionate [Allergy Relief (fluticasone)] 50 mcg/actuation spray,suspension 2 spray intranasal BID Qty: 16 11RF Rx Instructions: administer into each nostril omeprazole 20 mg capsule,delayed release(DR/EC) 20 mg PO DAILY Qty: 90 3RF insulin glargine 100 unit/mL (3 mL) insulin pen 32 unit SUBCUT QAM Qty: 30 3RF Held clopidogrel [Plavix] 75 mg tablet 75 mg PO DAILY Qty: 90 3RF Hold Instructions: Resume on 02/22/23. hold until f/u appt with Dr. Meléndez Discharge Orders: Discharge Order (Routine); Ordered 02/15/23 Ordered By: Montserrat Cash Additional Instructions: No new prescriptions needed. Increase your Omeprazole to TWICE/day until you see Dr. Meléndez in followup. Continue to HOLD your Plavix until your appt with Dr. Meléndez. If you have any new or worsening symptoms, dizziness/lightheadeness/fainting, you need to re-present to ED. Activity Level: Activity as Tolerated Discharge Diet: Diabetic Follow Up Appointments: Lina Meléndez MD [Primary Care Provider] - (see Dr. Meléndez within 7-10 days to go over recent hospitalization and discuss results from EGD, schedule colonoscopy) Forms: [facility] Info Instructions
--- NOTE | 2023-02-15 13:48 | W.ANESCHARGE ---
Anesthesia Charges Start Date/Time Anesthesia Start Date: 02/15/23 Anesthesia Start Time: 12:00 Stop Date/Time Anesthesia Stop Date: 02/15/23 Anesthesia Stop Time: 12:21 Summary Extremes of Age - Over 70 or under 1: MDA
--- NOTE | 2023-02-15 14:05 | NUTR.NU ---
RDN with nutrition screen for eating poorly due decreased appetite upon admission screen. Patient reports that this was related to the need to be NPO for upper scope today. Patient states that prior to admission she was eating adequately with 3 meals a day with multiple snacks. Patient does note decreased oral intake one day prior to admission. Patient ate 100% of lunch today consisting of scrambled eggs, 2 pieces of toast, and peaches. Patient notified of snacks available to her as she desires. Question accuracy of weight of 183lbs on 02/15/23, using weight of 154lbs 02/14/23. No significant weight change noted at this time per weight history and patient. Weigh history: 157lbs 01/05/23, 160lbs 12/15/22, 157lbs 09/19/22, and 160lbs 02/01/22. Patient reports a UBW of ~155-160lbs. Plan is for patient to discharge today. No nutrition interventions at this time. RDN will continue to monitor PRN.
[2023-02-15 14:30] VITALS: PULSE 84; RESP 16; TEMP 36.6; O2SAT 98
--- NOTE | 2023-02-15 15:39 | PC.NURSE ---
Discharge note: Pt alert and oriented. Vitals stable, BP improved as day shift went on. Pt states continued chronic back pain, pain level at baseline, had PRN Oxycodone 5mg and Tylenol 1000mg, effective. Pt had EGD, vitals remained stable after, on RA. Tolerated lunch. IV removed, catheter intact. Pt cleared for d/c home. Follow up appts discussed with pt and changes to meds (increasing Omeprazole to BID and holding Plavix per MD's order). D/c paperwork signed and reviewed. Pt's came to pick pt up, pt given WC ride to private car.
== END 2023-02-15 15:00 | disposition home or self-care (01) ==
LOC: ED 11:25 → MEDSURG 13:15
PROVIDERS: Family Medicine; Admitting Provider Family Medicine; Emergency Provider Family Medicine; PCP Internal Medicine; Visit Provider Family Medicine
DX: K92.2 Gastrointestinal hemorrhage, unspecified (principal); K31.7 Polyp of stomach and duodenum; L53.8 Other specified erythematous conditions; D63.8 Anemia in other chronic diseases classified elsewhere; K21.9 Gastro-esophageal reflux disease without esophagitis; E11.9 Type 2 diabetes mellitus without complications; R42 Dizziness and giddiness; R53.1 Weakness; Z79.4 Long term (current) use of insulin; Z86.73 Personal history of transient ischemic attack (TIA), and cerebral infarction without residual deficits; Z86.59 Personal history of other mental and behavioral disorders; Z85.828 Personal history of other malignant neoplasm of skin; Z87.891 Personal history of nicotine dependence; Z96.659 Presence of unspecified artificial knee joint; Z90.710 Acquired absence of both cervix and uterus; Z98.49 Cataract extraction status, unspecified eye; Z98.890 Other specified postprocedural states
CPT/HCPCS: 00731; 36415; 43239; 80048; 82962; 85018; 85025; 88305; 94761; 99100; 99283; 99284; A9270; C9113; G0378; J2704; J7030

== ENCOUNTER 2023-02-21 16:26 | Outpatient (CLI) | payer MEDICARE, SELFPAY | END 2023-02-21 16:27 | disposition home or self-care (01) | LOC: NFLDREF 16:29 | PROVIDERS: PCP Internal Medicine; Visit Provider Internal Medicine | DX: E11.9 Type 2 diabetes mellitus without complications (principal); Z87.19 Personal history of other diseases of the digestive system | CPT/HCPCS: 82728 ==

== ENCOUNTER 2023-03-24 08:01 | Outpatient (CLI) | payer MEDICARE, SELFPAY ==
--- NOTE | 2023-03-24 08:15 | CRLHL7_ITS ---
For Patients: As a result of the Century Cures Act, medical imaging exams and procedure reports are released immediately into your electronic medical record. You may view this report before your referring provider. If you have questions, please contact your health care provider. Technique: Double-contrast upper GI performed after the uneventful administration of effervescent crystals and thick barium followed by thin barium. Small bowel follow-through exam then performed. Fluoroscopy time 2 minutes 20 seconds.. Indication: Hematemesis Comparison: None. Findings: Swallowing mechanism: Normal. Esophageal motility: Slightly diminished esophageal motility. Gastroesophageal reflux: Spontaneous reflux to the midesophagus was present. Hernia: Small sliding hiatal hernia. Esophagus, stomach and duodenal bulb mucosa: Some tertiary contractions were noted within the distal esophagus. Small bowel: Transit time 2 hours 40 minutes. Small bowel loops are soft and pliable with compression. No evidence of acute inflammation or obstruction. Impression: Spontaneous gastroesophageal reflex, small sliding hernia and mild tertiary contractions of the distal esophagus. Small bowel transit time 2 hours 40 minutes. No bowel obstruction or evidence of inflammatory bowel disease. Dictated by David Olson MD @ 03/24/2023 12:37:13 PM (Electronically Signed)
== END 2023-03-24 08:02 | disposition home or self-care (01) ==
LOC: RAD 08:02
PROVIDERS: PCP Internal Medicine; Visit Provider Internal Medicine
DX: K92.0 Hematemesis (principal); K21.9 Gastro-esophageal reflux disease without esophagitis; K44.9 Diaphragmatic hernia without obstruction or gangrene
CPT/HCPCS: 74246; 74248

== ENCOUNTER 2023-03-30 14:26 | Outpatient (CLI) | payer MEDICARE, SELFPAY | END 2023-03-30 14:27 | disposition home or self-care (01) | LOC: NFLDREF 04-04 10:46 | PROVIDERS: PCP Internal Medicine; Referring Provider Internal Medicine; Visit Provider Internal Medicine Nephrology | DX: I12.9 Hypertensive chronic kidney disease with stage 1 through stage 4 chronic kidney disease, or unspecified chronic kidney disease (principal); D63.1 Anemia in chronic kidney disease; I10 Essential (primary) hypertension | CPT/HCPCS: 80069; 82043; 82570; 82607; 82728; 82746; 83540; 83550 ==

== ENCOUNTER 2023-04-07 14:30 | Outpatient (RCR) | payer MEDICARE, SELFPAY ==
--- NOTE | 2023-02-02 17:44 | OT.OPLE ---
OT Outpatient Lymphedema Eval OT Outpatient Lymphedema Eval Start: 02/02/23 07:08 Freq: Status: Active Protocol: Document 02/02/23 07:12 AMB (Rec: 02/02/23 16:59 AMB [id number]) E-signed By Ella Irvin, OTR/L, CLT, DISTRIBUTION LEAD OT Outpatient Evaluation Details Type Type Eval Complexity Low OT OP Lymphedema Evaluation Insurance Information Insurance Information [employer] Current Condition/Medical Diagnosis Referring Provider Dr. Schafer Treatment Diagnosis Right Breast Lymphedema Date Of Onset 12/21/21 (lumpectomy) Other Precautions Allergies: hazelnut Allergy ( Severe, Verified 12/13/22 16: 26) Throat closes and hives adhesive Allergy (Unknown, Verified 12/13/22 16:26) cantaloupe Allergy (Unknown, Verified 12/13/22 16:26) codeine Adverse Reaction (Mild , Verified 12/13/22 16:26) Nausea and Vomiting Sulfa drugs Allergy (Severe, Uncoded 12/13/22 16:26) Throat tightening trees Allergy (Intermediate, Uncoded 12/13/22 16:26) stuffed nose Sulfites Allergy (Mild, Uncoded 12/13/22 16:26) Rash Gluten Meal Adverse Reaction ( Unknown, Uncoded 12/13/22 16: 26) GI intolerance Medical Contraindications CA,Stroke Current Work Status Current Work Status Retired Subjective Subjective Pt states her right breast has been heavy and larger than the left since last winter. Pt stated initially, It's not lymphedema, it's just fat. Pt states her oncologist talked to her about getting bras without wires and she talked her into ordering some, but they were just horse shit , so I sent them back Pt states her breast has been red and warm, states they have ruled out an infection and inflammatory breast disease. Pt denies any pain and does not feel ill. Medical History Medical History Cancer Treatment/Surgery,DM, HTN,Radiation,Chemo,Arthritis Medical History Comments Oncology Hx: 0. September 27, 2021: bone mineral density scan completed per primary care, showing osteoporosis of the left forearm, and borderline osteopenia elsewhere. T-score -2.7 1. October 2021: underwent routine mammographies, with asymmetry in the right breast at the 10 o'clock position, 11 cm from the nipple 2. November 05, 2021: ultrasound completed, showing a solid hypoechoic mass with micro calcifications measuring 5 x 4 mm 3. November 16, 2021: core needle biopsy: invasive ductal carcinoma, grade 2 of 3, no angiolymphatic invasion and no associated DCIS. ER/DC strongly positive, HER2 equivocal by IHC and negative by fish. Ki-67 16% 4. December 21, 2021: right breast lumpectomy, final pathological stage IA, pT1b pNX. 6 mm tumor, grade 2 of 3 , ERPR strongly positive and HER2 negative. 5. January 28, 2022: Oncotype DX score 17. 5% distant recurrence risk at 9 years with AI or GRANGER alone. Group average absolute chemotherapy benefit <1%. 6. February 18, 2022: completed whole right breast radiation 7. February 2022: Initial oncology recommendations were to proceed without adjuvant endocrine therapy, but on further consideration patient elected to try anastrazole for 10 days but found insomnia intolerable. Elected to continue surveillance without additional adjuvant endocrine therapy. 8. July 2022: Screening mammogram detected possible abnormality in right breast; this was further evaluated with diagnostic mammogram and ultrasound which appeared to be benign post radiation changes; biopsy is negative for inflammatory breast cancer . 9. November 2022, patient developed right axillary swelling and pain. Results of ultrasound pending. Breast edema (Acute) N64.89 - Other specified disorders of breast (ICD-10) Hair loss (Acute) L65.9 - Nonscarring hair loss, unspecified (ICD-10) History of hemorrhoids (Acute) 08/09 hospitalization for bright red blood per rectum, Colonoscopy 09/06 revealed internal/external hemorrhoids Z87.19 - Personal history of other diseases of the digestive system (ICD-10) History of breast cancer ( Acute) Right-sided, ER DC positive, HER2 negative by fish, Ki 67 16%, Oncotype score 17, s/p right lumpectomy 12/15, s/p radiation, did not tolerate anastrazole Z85.3 - Personal history of malignant neoplasm of breast ( ICD-10) Anemia of chronic disease ( Acute) Hb around 10's 11/2011 D63.8 - Anemia in other chronic diseases classified elsewhere (ICD-10) History of ischemic stroke ( Acute) Ischemic thalamic stroke 2015, remains on Plavix Z86.73 - Personal history of transient ischemic attack (TIA ), and cerebral infarction without residual deficits (ICD -10) Rosacea (Acute 07/08/09) on BID minocycline in past L71.9 - Rosacea, unspecified ( ICD-10) Psoriasis (Acute 12/23/11) followed by Dr. Barry, civil rights representative in past, on MTX in past L40.9 - Psoriasis, unspecified (ICD-10) Pelvic floor dysfunction in female (Acute 2017) saw outside Pelvic Floor clinic 05/13, (Dr. Tracy Guillaume), recommended to do PT, seen by Dr. Guillaume again 12/14, and again recommended to do PT M62.89 - Other specified disorders of muscle (ICD-10) Obstructive sleep apnea syndrome (Acute 2017) Dxed 12/[address] Frances, she is trying a dental appliance G47.33 - Obstructive sleep apnea (adult) (pediatric) (ICD -10) Lichen sclerosus et atrophicus of the vulva (Acute 2012) noted since 2013, followed by Gynecology N90.4 - Leukoplakia of vulva ( ICD-10) Irritable bowel syndrome ( Acute) low FODMAP diet started 2018 K58.9 - Irritable bowel syndrome without diarrhea (ICD -10) Hypomagnesemia (Acute) Magnesium replacement started 11/06 E83.42 - Hypomagnesemia (ICD- 10) Essential hypertension (Acute) on medication, Saw nephrology, Dr. Lopez, 2020, on carvedilol I10 - Essential (primary) hypertension (ICD-10) GERD (gastroesophageal reflux disease) (Acute) presumed gastritis Spring 2015 , on omeprazole K21.9 - Gastro-esophageal reflux disease without esophagitis (ICD-10) Health care directive on file (Acute 09/24/20) Health care directive completed on 09/24/20. Reviewed for scanning to medical record on 10/13/20 Z78.9 - Other specified health status (ICD-10) Chronic low back pain (Acute) M54.50 - Low back pain, unspecified (ICD-10) G89.29 - Other chronic pain ( ICD-10) Chronic insomnia (Acute) on zolpidem for years, changed to lunesta 04/16 F51.04 - Psychophysiologic insomnia (ICD-10) Chronic hyponatremia (Acute) E87.1 - Hypo-osmolality and hyponatremia (ICD-10) Asthma (Acute 07/08/09) Adult onset, dxed , now well-controlled with control of GERD J45.909 - Unspecified asthma, uncomplicated (ICD-10) Type 2 diabetes mellitus ( Acute 07/08/09) Dxed , on Insulin since 2006, also on Metformin (in past) E11.9 - Type 2 diabetes mellitus without complications (ICD-10) Osteoporosis (Acute ~09/2021) by DEXA 10/15, alendronate started 10/15 M81.0 - Age-related osteoporosis without current pathological fracture (ICD-10) Medical History (Reviewed @ 09:54 by Yolette Schafer MD) Hair loss L65.9 - Nonscarring hair loss, unspecified (ICD-10) Hyperplastic polyp of intestine K63.5 - Polyp of colon (ICD-10 ) History of depression (2001) Z86.59 - Personal history of other mental and behavioral disorders (ICD-10) Surgical History Surgical History History of basal cell carcinoma excision Z98.890 - Other specified postprocedural states (ICD-10) Z85.828 - Personal history of other malignant neoplasm of skin (ICD-10) History of foot surgery Z98.890 - Other specified postprocedural states (ICD-10) Hx of decompressive lumbar laminectomy Z98.890 - Other specified postprocedural states (ICD-10) History of cataract surgery Z98.49 - Cataract extraction status, unspecified eye (ICD- 10) History of carpal tunnel release Z98.890 - Other specified postprocedural states (ICD-10) 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) Z96.659 - Presence of unspecified artificial knee joint (ICD-10) History of open reduction and internal fixation (ORIF) procedure (07/16/19) Z98.890 - Other specified postprocedural states (ICD-10) History of hysterectomy (07/08) Z90.710 - Acquired absence of both cervix and uterus (ICD-10 ) History of breast biopsy (07/04) Z98.890 - Other specified postprocedural states (ICD-10) History of blepharoplasty (07/04) Z98.890 - Other specified postprocedural states (ICD-10) History of bladder surgery () Z98.890 - Other specified postprocedural states (ICD-10) Medications Medications acetaminophen (Tylenol Extra Strength) 1,000 mg PO Q6H PRN albuterol sulfate 90 mcg/ actuation 2 - 4 puffs inhalation Q4-6H PRN alendronate 70 mg PO Q7D atorvastatin 10 mg PO HS beclomethasone dipropionate 80 mcg/actuation (Qvar RediHaler ) 2 inhalations PO BID betamethasone dipropionate 0. 05% 1 applic topical BID biotin 5,000 mcg PO QDAY calcium carbonate-vitamin D3 600 mg-25 mcg (1,000 unit) caps PO carvedilol 6.25 mg PO BID clindamycin phosphate 1% 1 applic topical QDAY clobetasol 0.05% 1 applic topical .twice weekly clopidogrel (Plavix) 75 mg PO DAILY diazepam 2 mg PO DAILY PRN eszopiclone (Lunesta) 2 mg PO QHS flash glucose scanning reader (Camera [employer] 14 Day [facility] ) As directed flash glucose sensor ( Camera [employer] 14 Day Sensor kit) As directed fluticasone propionate 50 mcg/ actuation (Allergy Relief ( fluticasone)) 2 sprays intranasal BID gabapentin 300 mg PO HS glucos sul [id number] (Glucosamine Chondroitin) 1 cap PO DAILY hydrochlorothiazide 12.5 mg PO DAILY insulin aspart U-100 (Novolog FlexPen U-100 Insulin aspart) 4 - 6 units (0.04 - 0.06 mL) subcut .tidac insulin glargine 18 units (0. 18 mL) subcut QAM magnesium oxide 600 mg PO DAILY omeprazole 20 mg PO DAILY ondansetron HCl 4 mg PO Q6H PRN pen needle, diabetic (BD Ultra -Fine Mini Pen Needle) As directed pen needle, diabetic (UltiCare Pen Needle) use up to 6x daily timolol maleate 0.5% 1 drp ophthalmic (eye) HS valacyclovir 500 mg PO BID PRN Family History Family History of Lymphedema No Living Situation Current Living Situation Home With Spouse Or SO Exercise History Does Patient Exercise Regularly Yes Exercise Comments Pt likes walking, biking lifting weights, going to the gym etc. However, she has not been able to exercise regularly for several months due to having back issues and possible pending surgery. Pain Pain Yes Pain Comments Pt denies any pain in her breast but does have pain in her back due to chronic back issues with previous back surgery x 2. Loss of Function/Strength/Mobility Loss Of Function/Strength/Mobility No Compression History Does Patient Currently Wear Compression No During Daytime Does Patient Currently Wear Compression No At Night Current Swelling (Location/Pitting/Texture) Pitting Scale: 0 = No pitting 1+ Tissue returns to normal almost immediately 2+ Tissue returns after 15-30 seconds 3+ Tissue returns after 1-1/2 minutes 4+ Tissue returns after 2-3 minutes N/A Tissue no longer pits due to induration Tissue texture: Soft or indurated Clinical Presentation Area No pitting, soft, full lower right breast quadrant. Triggering Event & Start Date of Breast lumpectomy right side Swelling/Lymphedema in November of last year followed by extensive radiation treatment. Type of Swelling Post Surgery/Traumatic Edema Staging Staging Stage 2 Skin Changes Skin Changes Comments Peau de orange skin texture with enlarged skin poors in the lower quadrant of right breast. Circumferential Measurements Upper Extremity Left Upper Extremity MCP 19.0 Palm 19.4 Wrist 16.5 10cm 19.5 20cm 23.6 30cm 26.8 40cm 30.0 50cm 35.0 Total 189.8 Right Upper Extremity MCP 19.0 Palm 20.0 Wrist 16.5 10cm 19.6 20cm 23.9 30cm 27.0 40cm 29.8 50cm 34.8 Total 190.6 Trunk Chest/Nipple Line 116 Total 116 Assessment Assessment Pt presents to OT with s/s of lymphedema in the right breast . Pt describes her right breast as heavy, fat, and large. Pt states it's not painful but uncomfortable. Pt has undergone extensive radiation therapy and lumpectomy (denies LN removal) . Pt also has skin changes in the lower quadrant along with thick scarring at the lumpectomy site which may be causing restrictions for fluid flow. Pt is at risk for cellulitis and further lymphedema related complications if left untreated. Pt will benefit from skilled OT intervention to address and reduce lymphedema as well as for pt education regarding self help techniques, compression wear and bra fit / choice in order to reduce swelling and risk for infection as well as reduce exacerbation and worsening of her condition. Impairments Impairments Limb Heaviness,Poor Clothing Fit Problem List Problem List Limited Knowledge of Lymphedema Treatment/Condition /Precautions,Limited Knowledge of Skin Care & Infection Precautions,Significant Risk For Infection For Lymphedema Related Complications,Does Not Have a HEP,Does Not Know How To Bandage For Limb Reduction, Does Not Have Appropriate Compression Garments For LT Management Patient Goals Patient Goals 1. Pt will be independent and compliant with home program for lymphedema management in order to achieve and maintain best outcomes. 4 weeks 2. Pt will demonstrate a reduction of at least 4cm measured at nipple line of trunk in order to reduce risk for exacerbation of lymphedema , infection and further lymphedema related complications. 8 weeks 3. Pt will obtain appropriate compression for LT management of her lymphedema. 10 weeks. Treatment Plan Treatment Plan Evaluation,Edema Control, Manual Therapy,Wound Care/Scar Management,Therapeutic Exercise,Therapeutic Activities,Self-Care/Home Management,Education Expected Frequency 1-2x Week Expected Duration 8-10 Weeks Certification Certification I Certify That: Therapy Services Provided, Therapy Plan Established, Therapy Plan Reviewed Recertification Information Recertification Information Initial Certification Date 02/02/23 Recertification Due Date 05/03/23 Reasons to Continue Skilled Therapy Initiated OT today to address right breast lymphedema, pt is at risk for cellulitis and exacerbation / further complications of her lymphedema. Rehabilitation Potential Good Continued Plan of Care and Interventions See above Provider Signature Shows Agreement With POC & Medical Necessity Physician Comment/Change Comment or Changes Physician NPI Number #
--- NOTE | 2023-04-10 14:10 | PC.NURSE ---
Diagnosis: Osteoporosis
== END 2023-04-07 17:28 | disposition home or self-care (01) ==
PROVIDERS: PCP Internal Medicine; Visit Provider Surgery
DX: I89.0 Lymphedema, not elsewhere classified (principal); Z51.89 Encounter for other specified aftercare
CPT/HCPCS: 80069; 82043; 82570; 84550; 87086; 97140; 97165; 97535

== ENCOUNTER 2023-04-18 14:45 | Outpatient (CLI) | payer MEDICARE, SELFPAY ==
--- OUTSIDE RECORDS SUMMARY | 2023-04-18 14:50 | XMS_ITS | Continuity of Care Document ---
Author Name Unknown Organization [facility] Address [address] [place] [address] Phone Care Team Providers Care Arts Education Teacher Name Role Phone Gurinder Mc MD Unavailable Unavailable Allergies, Adverse Reactions, Alerts Substance Reaction Status Criticality Sulfa (Sulfonamide Antibiotics) anaphalaxis Active No Information hazelnut Active No Information codeine Active No Information Medications Medication Instructions Dosage Effective Dates (start - stop) Status Comments gabapentin 300 mg capsule take 1 capsule by oral route 3 times every day 300 MG - Active PROAIR DIGIHALER (unknown strength) Not Available - Active OMEPRAZOLE (unknown strength) Not Available - Active HYDROCODONE-ACETAMI NOPHEN (unknown strength) Not Available - Active GABAPENTIN [...] Available - Active Procedures Procedure Date Office/Outpatient Visit,Est, Mod 2022 Office/Outpatient Visit,New, Mod 2021 Office/Outpatient Visit,Est, Mod [...] Diagnoses Date Provider Providers Copied on Encounter [facility], [address], [place], [place], [id number] , [place] tel: [phone] [facility] No Information 3 Mehbod Amir. [facility], [address] [place] [address] [address], [place], [place], [id number] , [place]. tel:[phone] Office/Outpa tient Visit,Est, Mod [facility], [address], [place], [place], [id number] , [place] [phone] [facility] Spinal stenosis, lumbar region with neurogenic claudication 3 Mehbod Amir. [facility], [address] [place] [address] [address], [place], [place], [id number] , [place]. tel:[phone] Referring Provider: Corona Dixon [address], [address]. tel:[phone] Office/Outpa tient Visit,New, Mod [facility], [address], [facility], [place], [id number] , [place] tel:[phone] [facility] Spinal stenosis, lumbar region with neurogenic claudication 2 Mehbod Amir. [facility], [address] [place] [address], [place], [place], [id number] , [place]. tel:[phone] Referring Provider: Corona Dixon [address], [place], [address]. tel:[phone] Office/Outpa tient Visit,Est, Mod [facility], [address], [facility] [place], [id number] , [place] tel: [phone] [facility] Other forms of scoliosis, lumbar regionPost Op - Normal Follow-up 8 Mehbod Amir. [facility], [address] [place] [address], [place], [place], [id number] , [place]. tel:[phone] Referring Provider: Corona Dixon [address], [address]. tel:[phone] Office/Outpa tient Visit,Est, Low [facility], [address], [facility], [id number] , [place] tel: [phone] [facility] Encounter for other specified surgical aftercareArthrode sis status 8 Mehbod Amir. [facility], [address] [place] [address] [address], [facility], [place], [id number] , [place]. tel:[phone] Referring Provider: Corona Dixon [address], [place], [address]. tel:[phone] Office/Outpa tient Visit,Est, Mod [facility], [address], [facility] [place], [id number] , [place] tel: [phone] [facility] Spinal stenosis, lumbar region NOS Mehbod Amir. [facility], [address] [place] [address], [place], [place], [id number] , [place]. tel: [phone] Referring Provider: Corona Dixon [address], [address]. tel:[phone] [facility], [address], [place], [place], [id number] , [place] tel: [phone] [facility] Encounter for follow-up examination after completed treatment for conditions other than malignant neoplasm Mehbod Amir. [facility], [address] [place] [address], [place], [place], [id number] , [place]. tel: [phone] Referring Provider: Corona Dixon [address], [address]. tel:[phone] [facility], [address], [facility], [place], [id number] , [place] tel: [phone] [facility] Spinal stenosis, lumbar region 7 Kimberly Finney. [address] [place] [address], [facility], [place], [id number] , [place]. tel: [phone] Referring Provider: Corona Dixon [address], [address]. tel:[phone] [facility], [address], [facility], [place], [id number] , [place] tel: [phone] [facility] No Information Mehbod Amir. [facility], [address] [place] [address], [facility], [place], [id number] , [place]. tel: [phone] Referring Provider: Corona Dixon [address], [address]. tel:[phone] Office/Outpa tient Visit,Est, Mod [facility], [address], [facility], [id number] , [place] tel: [phone] [facility] Spinal stenosis, lumbar region Apr-0 3-201 7 Mehbod Amir. [facility], [address] [place] [address], [place], [place], [id number] , [place]. tel: [phone] Referring Provider: Corona Dixon [address], [address]. tel:[phone] [facility], [address], [place], [place], [id number] , [place] tel: [phone] [facility] Spinal stenosis, lumbar region Sep-1 9-201 6 [facility] [address] [place] [address], [place], [place], [id number] , [place]. tel: [phone] Referring Provider: Corona Dixon [address], [address]. tel:[phone] [facility], [address], [place], [place], [id number] , [place] tel: [phone] [facility] Spinal stenosis, lumbar region Aug-0 8-201 6 Mehbod Amir. [facility], [address] [place] [address], [place], [place], [id number] , [place]. tel: [phone] Referring Provider: Corona Dixon [address], [address]. tel:[phone] [facility], [address], [place], [place], [id number] , [place] tel: [phone] [facility] No Information Sergei-2 4-201 6 Mehbod Amir. [facility], [address] [place] [address], [place], [place], [id number] , [place]. tel: [phone] Referring Provider: Corona Dixon [address], [address]. tel:[phone] Office/Outpa tient Visit,New, Mod [facility], [address], [place], [place], [id number] , [place] tel: [phone] [facility] OverweightSpinal stenosis, lumbar region 201 6 Alexandro Fairchild. [facility], [address] [place] [address] [address], [place], [place], [id number] , [place]. tel: [phone] Referring Provider: Corona Dixon [facility] [address] [facility], [place], [address]. tel:[phone] Family History Family Member Type Diagnosis Age At Onset No Information Payers Payer name Insurance type Covered green party ID Valentin harrell(s) [employer] [facility] 2021 CI [id number] Social History Type Description Quantity Date Captured Comments Sex Female Smoking Status No Information Chief Complaint And Reason For Visit No Information Reason For Referral Reason For Referral No Information Plan Of Treatment Date Type Action Status Appointment Maryam Cortez BOOKED Appointment Maryam Cortez BOOKED Appointment Maryam Cortez BOOKED History Of Present Illness Encounter Date Complaint History Of Prese nt Illness No Information Functional Status Date Functional Assessmen t No Information Instructions Date Instruction Additional Infor mation Instructed to return to General Practitioner timeframe: [...]
== END 2023-04-18 14:46 | disposition home or self-care (01) ==
PROVIDERS: PCP Internal Medicine; Visit Provider Internal Medicine
DX: Z01.818 Encounter for other preprocedural examination (principal); I10 Essential (primary) hypertension; E87.1 Hypo-osmolality and hyponatremia
CPT/HCPCS: 80048; 83735; 85610

== ENCOUNTER 2023-05-14 15:55 | Emergency (ER) | payer MEDICARE, SELFPAY ==
[2023-05-14 16:06] VITALS: BP 143/57; PULSE 74; RESP 18; TEMP 37.1; O2SAT 98; BMI 25.6
--- NOTE | 2023-05-14 16:27 | CRLHL7_ITS ---
For Patients: As a result of the Cures Act, medical imaging exams and procedure reports are released immediately into your electronic medical record. You may view this report before your referring provider. If you have questions, please contact your health care provider. INDICATION: Bilateral lower extremity swelling, postop 10 days COMPARISON: None. TECHNIQUE: Schultz-scale, color, and duplex Doppler imaging of the examined veins. Compression and augmentation attempted where anatomically and clinically feasible. FINDINGS: Laterality: Bilateral Examined veins: Common femoral, femoral, popliteal, peroneal, posterior tibial Greater saphenous The examined veins are patent with normal color Doppler flow and a normal venous waveform on duplex Doppler. Where possible, there is normal compression and normal augmentation of flow. IMPRESSION: No deep vein thrombosis in either leg. Dictated by Keily Hoyt MD @ 05/14/2023 6:29:25 PM (Electronically Signed)
--- NOTE | 2023-05-14 16:28 | ED_ITS ---
HPI - General Adult General Date Seen: 05/14/23 Chief complaint: Lower Extremity Swelling Stated complaint: surgery 10 days ago, shortness of breath, pain Time Seen by Provider: 05/14/23 16:16 Source: patient, RN notes reviewed and old records reviewed Mode of arrival: ambulatory Limitations: no limitations History of Present Illness HPI narrative: Patient is a 77-year-old woman who is 10 days postop from Spine surgery. She has had gradually worsening swelling in both legs. She attributes this to the normal saline bolus that was given her after her surgery, but does note that when she saw Dr. Hoffman on Monday for operative follow-up the swelling was not as bad. It has gotten steadily worse and is now fairly uncomfortable. She can not get her sneakers on. She has chronic shortness of breath but says that the shortness of breath seems worse as well. She has not had any chest pain, cough, fever. She is not on any diuretics but does say that her kidney doctor has told her to avoid sodium. She does not smoke. Here today with her . Related Data Home Medications Medication Instructions Recorded Confirmed acetaminophen 500 mg tablet 1,000 mg PO Q6H PRN 07/28/22 04/18/23 (Tylenol Extra Strength) biotin 2,500 mcg capsule 5,000 mcg PO DAILY 09/19/22 04/18/23 calcium carbonate 600 mg-vitamin 1 cap PO DAILY 09/19/22 04/18/23 D3 25 mcg (1,000 unit) capsule glucos sul [id number] 1 cap PO DAILY 09/19/22 04/18/23 [Glucosamine Chondroitin] valacyclovir 500 mg tablet 500 mg PO BID PRN 09/19/22 04/18/23 pen needle, diabetic 31 gauge x 12/08/22 04/18/2309/08 (BD Ultra-Fine Mini Pen Needle) betamethasone dipropionate 0.05 % 1 applic topical BID PRN 02/14/23 04/18/23 topical cream insulin aspart U-100 100 unit/mL 4 - 9 unit subcut TIDWM 02/14/23 04/18/23 (3 mL) subcutaneous pen (Novolog FlexPen U-100 Insulin aspart) folic acid 1 mg tablet 1 mg PO QDAY 04/04/23 04/18/23 nifedipine 30 mg tablet,extended 30 mg PO QDAY 04/04/23 04/18/23 release 24 hr (Procardia XL) magnesium oxide 400 mg (241.3 mg 400 mg PO BID 04/10/23 04/18/23 magnesium) tablet insulin glargine 100 unit/mL (3 16 unit subcut QAM 04/14/23 04/18/23 mL) subcutaneous pen cephalexin 500 mg capsule 500 mg PO QID 05/08/23 05/08/23 methocarbamol 500 mg tablet 250 mg PO Q6H PRN 05/08/23 05/08/23 oxycodone 5 mg tablet mg PO 05/08/23 05/08/23 sennosides 8.6 mg-docusate sodium 1 - 4 tab-cap PO BID PRN 05/08/23 05/08/23 50 mg tablet (Senexon-S) Previous Rx's Medication Instructions Recorded flash glucose scanning reader #2 kits 12/31/21 (FreeStyle Daja 14 Day [place]) carvedilol 6.25 mg tablet 6.25 mg PO BID #180 tabs 06/23/22 clopidogrel 75 mg tablet (Plavix) 75 mg PO DAILY #90 tabs 09/29/22 atorvastatin 10 mg tablet 10 mg PO HS #90 tabs 10/03/22 beclomethasone dipropionate 80 2 inh PO BID #10.6 grams 10/03/22 mcg/actuation HFA breath activated aerosol (Qvar RediHaler) albuterol sulfate 90 mcg/actuation 2 - 4 puff inhalation Q4-6H PRN 11/01/22 aerosol inhaler shortness of breath or wheezing #6.7 grams fluticasone propionate 50 2 spray intranasal BID #16 grams 12/14/22 mcg/actuation nasal spray,suspension (Allergy Relief (fluticasone)) gabapentin 300 mg capsule 600 mg (2 x 300 mg) PO HS #90 caps 01/05/23 omeprazole 20 mg capsule,delayed 20 mg PO DAILY #90 caps 01/17/23 release eszopiclone 2 mg tablet (Lunesta) 2 mg PO QHS #6 tabs 03/14/23 pen needle, diabetic 31 gauge x #300 ea 03/15/23/16 (UltiCare Pen Needle) flash glucose sensor (FreeStyle #2 kits 03/31/23 Daja 14 Day Sensor kit) furosemide 20 mg tablet (Lasix) 20 mg PO DAILY #3 tabs 05/14/23 Allergies Allergy/AdvReac Type Severity Reaction Status Date / Time hazelnut Allergy Severe Throat Verified 05/08/23 16:00 closes and hives Sulfa (Sulfonamide Allergy Severe Anaphylaxis Verified 05/08/23 16:00 Antibiotics) adhesive Allergy Unknown Verified 05/08/23 16:00 cantaloupe Allergy Unknown Verified 05/08/23 16:00 codeine AdvReac Mild Nausea and Verified 05/08/23 16:00 Vomiting trees Allergy Intermediate stuffed Uncoded 05/08/23 16:00 nose Sulfites Allergy Mild Rash Uncoded 05/08/23 16:00 Gluten Meal AdvReac Unknown GI Uncoded 05/08/23 16:00 intolerance Review of Systems Status of ROS: Reports: 10 or more systems reviewed and unremarkable except as noted in History and below PFSH PFS Medical History Hyperplastic polyp of intestine ?K63.5 - Polyp of colon (ICD-10) History of depression (2001) ?Z86.59 - Personal history of other mental and behavioral disorders (ICD-10) Surgical History History of lumbar laminectomy for spinal cord decompression ?Z98.890 - Other specified postprocedural states (ICD-10) S/P breast lumpectomy (11/2021) ?Z98.890 - Other specified postprocedural states (ICD-10) History of hemorrhoidectomy ?Z98.890 - Other specified postprocedural states (ICD-10) History of basal cell carcinoma excision ?Z98.890 - Other specified postprocedural states (ICD-10) ?Z85.828 - Personal history of other malignant neoplasm of skin (ICD-10) History of foot surgery ?Z98.890 - Other specified postprocedural states (ICD-10) Hx of decompressive lumbar laminectomy ?Z98.890 - Other specified postprocedural states (ICD-10) History of cataract surgery ?Z98.49 - Cataract extraction status, unspecified eye (ICD-10) History of carpal tunnel release ?Z98.890 - Other specified postprocedural states (ICD-10) 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) ?Z96.659 - Presence of unspecified artificial knee joint (ICD-10) History of open reduction and internal fixation (ORIF) procedure (07/16/19) ?Z98.890 - Other specified postprocedural states (ICD-10) History of hysterectomy (07/08/09) ?Z90.710 - Acquired absence of both cervix and uterus (ICD-10) History of breast biopsy (07/08/09) ?Z98.890 - Other specified postprocedural states (ICD-10) History of blepharoplasty (07/08/09) ?Z98.890 - Other specified postprocedural states (ICD-10) History of bladder surgery (02/08/10) ?Z98.890 - Other specified postprocedural states (ICD-10) Family History Mother Diabetes Coronary artery disease Stroke Social History Narrative: 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 History of tobacco use She does not use recreational drugs. She really drinks alcohol. She has 1 biologic child, and 4 adopted children. What is your current living situation?: I presently have a place to live Problems where you live: no known problems Problems where you live details: none In the past 12 months, utilities in danger of being shut off: no In past 12 months, lack of transportation kept you from medical appts, meetings, work, or getting things needed for daily living: no In the past 12 mos, have been you worried that your food would run out before you had money to buy more?: never true In the past 12 mos, the food you bought just didn't last and you didn't have money to buy more?: never true Highest level of school completed/degree received: Master's degree Smoking Status: Never smoker Do you use any of these nicotine containing products: None Second hand tobacco smoke exposure: No How often do you have a drink containing alcohol: never How often do you have six or more drinks on one occasion: Never AUDIT-C Alcohol total score: 0 Non-prescribed substance use: denies use Caffeine: No How often does anyone, including family, friends and others, physically hurt you : never How often does anyone, including family, friends and others, insult or talk down to you: never How often does anyone, including family, friends and others, threaten you with harm: never How often does anyone, including family, friends and others, scream or curse at you: never Little interest or pleasure in doing things: not at all Feeling down, depressed, or hopeless: not at all service: No Exam Narrative: Exam Narrative: Vital signs as noted above. In general, an alert, well-appearing patient. Breathing easily. Head: Normocephalic, atraumatic. Eyes: Pupils are equal reactive. Extraocular movements are full. Conjunctivae are normal. ENT: Mucous membranes are moist. Neck: Supple without lymphadenopathy. Heart: Regular rate and rhythm. Systolic murmur heard best at the right sternal border. Lungs: Clear bilaterally. No increased work of breathing, crackles or wheezes. Abdomen: Soft and nontender. No organomegaly. Extremities: Good pulses bilaterally, good perfusion. Mild edema noted in her feet, little bit in the ankles. She does not have significant pitting edema more proximally to that. No calf tenderness, no erythema or warmth. Neurologic: Patient is alert and oriented to person and place. Speech is fluent. Face is symmetric. Moves all extremities equally. Affect: Normal. Skin: Warm and dry. Well perfused. Const: Vital Signs, click to edit/add: Vital Signs - 24 hr 05/14/23 16:06 05/14/23 19:13 Temperature 98.7 F Pulse Rate [Pulse Oximeter] 74 76 Respiratory Rate 18 18 Blood Pressure [Ri ght Upper Arm] 143/57 H 151/72 H Pulse Oximetry 98 98 Oxygen Delivery Me thod Room Air Room Air Documenting provider has reviewed patient's vital signs: yes Course Course ED Course: Exam is fairly unremarkable aside from mild edema in both legs. She does not have a history of DVT, does take Plavix for history of stroke. O2 sats are n ormal, lungs are clear. Diagnostic considerations include DVT or PE, pneumonia, pleural effusion, pulmonary edema, anemia among others. Records reviewed, will evaluate for above complaints, I have ordered bilateral lower extremity Doppler as well as a D-dimer. I think if the Doppler is negative and the D-dimer is likewise negative I do not know that she needs additional testing for pulmonary embolism. Will await those tests as well as other basic labs. If everything is negative, it would probably be reasonable to put her on a couple days of Lasix and have her follow-up with her primary clinic. Overall, evaluation for her presenting complaints is unremarkable. Her bilateral lower extremity Doppler was read as negative by Radiology. She did have an elevated D-dimer at 2.5 and so I elected to do a CT scan of the chest although with recent surgery D-dimer may certainly be elevated secondary to that. Other labs were notable for anemia with a hemoglobin of 9.7, again not surprising 10 days postop. White count was normal. Metabolic panel unremarkable LFTs unremarkable, CRP minimally elevated at 3.2. Her BNP was indeterminate at 900. Thyroid was normal. CT scan of the chest read by radiology as showing no PE, trace bilateral pleural effusions, as well as irregular appearance of the right mid kidney question renal mass treatment with possible residual recurrent tumor. There is also a pathologic appearing compression fracture of the T8 vertebral body. I do not see prior history of renal carcinoma in her medical history but I will review all this with her. This will require follow-up as an outpatient. I am going to prescribe a few days of Lasix just to help with a little bit of what appears to be fluid overload postoperatively, she should follow up with Dr. Hoffman next week for reassessment and to discuss outpatient follow-up of her incidental CT findings. Vital Signs Vital signs: Initial Vital Signs Temperature 98.7 F 05/14/23 16:06 Temperature Source Temporal Artery Scan 05/14/23 16:06 Pulse Rate 74 05/14/23 16:06 Pulse Rhythm Regular 05/14/23 16:06 Respiratory Rate 18 05/14/23 16:06 Blood Pressure 143/57 H 05/14/23 16:06 Blood Pressure Mean 85 05/14/23 16:06 Blood Pressure Position Sitting 05/14/23 16:06 Pulse Oximetry 98 05/14/23 16:06 Oxygen Delivery Method Room Air 05/14/23 16:06 Vital Signs Temperature 98.7 F 05/14/23 16:06 Pulse Rate 74 05/14/23 16:06 Respiratory Rate 18 05/14/23 16:06 Blood Pressure 143/57 H 05/14/23 16:06 Pulse Oximetry 98 05/14/23 16:06 Oxygen Delivery Method Room Air 05/14/23 16:06 Temperature 98.7 F 05/14/23 16:06 Pulse Rate 76 05/14/23 19:13 Respiratory Rate 18 05/14/23 19:13 Blood Pressure 151/72 H 05/14/23 19:13 Pulse Oximetry 98 05/14/23 19:13 Oxygen Delivery Method Room Air 05/14/23 19:13 Medical Decision Making Lab Data Labs: Lab Results 05/14/23 05/14/23 Range/Units 16:33 16:40 WBC 6.59 (4.50-11.00) K/uL RBC 3.13 L (4.00-5.20) m/uL Hgb 9.7 L (12.0-16.0) gm/dL Hct 29.9 L (33.0-51.0) % MCV 96 (80-100) fL MCH 31 (26-34) pg MCHC 32 (32-36) gm/dL RDW Coeff of Don 12.5 (11.5-15.5) % Plt Count 359 (140-440) K/uL Neut % (Auto) 82.7 H (42.0-72.0) % Lymph % (Auto) 7.6 L (20-44) % [place] % (Auto) 7.0 (0.0-11.0) % Eos % (Auto) 2.1 (0.0-7.0) % Baso % (Auto) 0.3 (0.0-3.0) % Neut # (Auto) 5.40 (1.7-7.0) K/uL Lymph # (Auto) 0.50 L (0.90-2.90) K/uL [place] # (Auto) 0.50 (0.00-0.90) K/UL Eos # (Auto) 0.14 (0.00-0.50) K/uL Baso # (Auto) 0.02 (0.00-0.30) K/uL Abs Immat Gran (auto) 0.02 (0.00-0.30) K/uL Imm/Tot Granulo (auto) 0.3 % D-Dimer Quant (PE/DVT) 2.46 H (0.00-0.50) ug/ml Sodium 134 L (135-149) mmol/L Potassium 3.7 (3.6-5.1) mmol/L Chloride 98 (96-114) mmol/L Carbon Dioxide 25 (20-32) mmol/L Anion Gap 11 (7-15) mEq/L BUN 14 (7-30) mg/dL Creatinine 0.5 (0.5-1.5) mg/dL Estimated Creat Clear 43.74 Estimated GFR 98 ml/min Glucose 160 H (60-115) mg/dL Calcium 8.8 (8.4-10.6) mg/dL Total Bilirubin 0.7 (0.1-1.5) mg/dL Direct Bilirubin 0.0 (0.0-0.5) mg/dL AST 37 H (12-35) U/L ALT 35 (4-35) U/L Alkaline Phosphatase 105 (40-150) U/L C-Reactive Protein 3.2 H (0.5-1.0) mg/dL NT-Pro-B Natriuret Pep 904 pg/mL Total Protein 7.1 (6.0-8.3) g/dL Albumin 4.0 (3.3-5.0) g/dL TSH 0.828 (0.270-4.200) uIU/mL Discharge Plan Discharge Clinical Impression: Abnormal CT scan, kidney, Bilateral edema of lower extremity Patient Disposition: Home, Self-Care Condition: Stable Instructions: Leg Edema (ED) Additional Instructions: Elevate legs as able, compression stockings may help as well. I prescribed a few doses of a diuretic, which will help shed excess fluid. There is no indication of blood clots, pneumonia, heart failure or other acute problems on today's evaluation. On your chest CT, your kidney is partially visualized and there appears to be possibly a soft tissue mass there. This will need further follow-up as an outpatient. Please follow up with Dr. Hoffman next week to review and to arrange follow-up. Prescriptions: New furosemide [Lasix] 20 mg tablet 20 mg PO DAILY Qty: 3 2RF No Action gabapentin 300 mg capsule 600 mg PO HS Qty: 90 3RF oxycodone 5 mg tablet PO cephalexin 500 mg capsule 500 mg PO QID sennosides-docusate sodium [Senexon-S] 8.6-50 mg tablet 1 - 4 tab-cap PO BID PRN methocarbamol 500 mg tablet 250 mg PO Q6H PRN acetaminophen [Tylenol Extra Strength] 500 mg tablet 1,000 mg PO Q6H PRN valacyclovir 500 mg tablet 500 mg PO BID PRN glucos sul [id number] [Glucosamine Chondroitin] 1 cap PO DAILY biotin 2,500 mcg capsule 5,000 mcg PO DAILY calcium carbonate-vitamin D3 600 mg-25 mcg (1,000 unit) capsule 1 cap PO DAILY folic acid 1 mg tablet 1 mg PO QDAY nifedipine [Procardia XL] 30 mg tablet extended release 24hr 30 mg PO QDAY insulin glargine 100 unit/mL (3 mL) insulin pen 16 unit SUBCUT QAM betamethasone dipropionate 0.05 % cream 1 applic TOPICAL BID PRN Rx Instructions: Apply to affected area twice daily as needed insulin aspart U-100 [Novolog FlexPen U-100 Insulin] 100 unit/mL (3 mL) insulin pen 4 - 9 unit subcut TIDWM Patient Comments: sliding scale base on glucose reading Rx Instructions: sliding scale base on glucose reading (DME) FreeStyle Daja 14 Day [place] Misc See Rx Instructions .Route Qty: 2 11RF Rx Instructions: As directed carvedilol 6.25 mg tablet 6.25 mg PO BID Qty: 180 0RF clopidogrel [Plavix] 75 mg tablet 75 mg PO DAILY Qty: 90 3RF Hold Instructions: Resume on 02/22/23. hold until f/u appt with Dr. Meléndez atorvastatin 10 mg tablet 10 mg PO HS Qty: 90 3RF Qvar RediHaler 80 mcg/actuation HFA aerosol breath activated 2 inh PO BID Qty: 10.6 8RF albuterol sulfate 90 mcg/actuation HFA aerosol inhaler 2 - 4 puff inhalation Q4-6H PRN (Reason: shortness of breath or wheezing) Qty: 6.7 9RF (DME) pen needle, diabetic [BD Ultra-Fine Mini Pen Needle] 31 gauge x 3/16 needle See Rx Instructions .Route Rx Instructions: As directed fluticasone propionate [Allergy Relief (fluticasone)] 50 mcg/actuation spray,suspension 2 spray intranasal BID Qty: 16 11RF Rx Instructions: administer into each nostril omeprazole 20 mg capsule,delayed release(DR/EC) 20 mg PO DAILY Qty: 90 3RF eszopiclone [Lunesta] 2 mg tablet 2 mg PO QHS Qty: 6 0RF (DME) pen needle, diabetic [UltiCare Pen Needle] 31 gauge x 3/16 needle See Rx Instructions .Route Qty: 300 0RF Rx Instructions: use up to 6x daily (DME) Blue Sourcee 14 Day Sensor Kit See Rx Instructions .Route Qty: 2 9RF Rx Instructions: As directed magnesium oxide 400 mg (241.3 mg magnesium) tablet 400 mg PO BID Follow Up/Referrals: Lina Meléndez MD [Primary Care Provider] - Stand Alone Forms: [facility] Info Instructions
--- OUTSIDE RECORDS SUMMARY | 2023-05-14 16:54 | XMS_ITS | Continuity of Care Document ---
Author Name Unknown Organization [facility] Address [address] [address] [place] [address] Phone Care Team Providers Care Upfitter Name Role Phone No Information Unavailable Unavailable Allergies, Adverse Reactions, Alerts Substance [...] Diagnoses Date Provider Providers Copied on Encounter [facility], [address] [address], [place], [place], [id number], tel:[phone] No Information 3 No Information [facility], [address] [address], [place], [place], [id number], [place] tel:[phone] [facility] No Information 5 No Information Referring Provider: Coleman Dye MD G, [facility] [place], [address]. tel:[phone] Family History Family Member Type Diagnosis Age At Onset No Information Payers Payer name Insurance type Covered republican ID Authoriza tion(s) No Information Social History Type Description Quantity Date Captured [...]
--- OUTSIDE RECORDS SUMMARY | 2023-05-14 16:54 | XMS_ITS | Continuity of Care Document ---
Author Name Unknown Organization [facility] Address [address] [place] [address] Phone Care Team Providers Care Nurses' Aide Name Role Phone Gurinder Mc MD Unavailable Unavailable Allergies, Adverse Reactions, Alerts Substance Reaction Status Criticality Sulfa (Sulfonamide Antibiotics) anaphalaxis Active No Information hazelnut Active No Information codeine Active No Information Medications Medication Instructions Dosage Effective Dates (start - stop) Status Comments methocarbamol 500 mg tablet Take one half tablet every 6 hours PRN muscle spasms - Active cephalexin 500 mg capsule take 1 capsule by oral route every 6 hours 500 MG - Active gabapentin 300 mg capsule take 1 capsule by oral route 3 times every day 300 MG - Active ALENDRONATE SODIUM (unknown strength) Not Available - Active FINASTERIDE (unknown strength) Not Available - Active GABAPENTIN (unknown strength) Not Available - Active HYDROCODONE-ACETAMIN OPHEN (unknown strength) Not Available - Active OMEPRAZOLE (unknown strength) Not Available - Active PROAIR DIGIHALER (unknown strength) Not Available - Active AMBIEN (unknown strength) Not Available - Active CLOPIDOGREL (unknown strength) Not Available - Active LIPITOR (unknown strength) Not Available - Active CLONIDINE (unknown strength) Not Available - Active UROMAG (unknown strength) Not Available - Active HUMALOG (unknown strength) Not Available - Active LANTUS SOLOSTAR (unknown strength) Not Available - Active Procedures Procedure Date TLIF - Includes PSF at the same level - PA PSF - Additional Level(s) - PA 23 Posterior Instrumentation, 3-6 Segments - PA PEEK/ Cage/ Implant, For Interbody Fusio n - PA Eric / Colón-Bower Osteotomy, Lumbar - PA Lami, Facetectomy/Foraminotomy, Lumbar ( Stenosis) TLIF - Includes PSF at the same level No PSF - Additional Level(s) Posterior Instrumentation, 3-6 Segments PEEK/ Cage/ Implant, For Interbody Fusio n Reic / Colón-Bower Osteotomy, Lumbar Lami, Facetectomy/Foraminotomy, Lumbar ( Stenosis) Office/Outpatient Visit,Est, Mod 2022 Office/Outpatient Visit,New, Mod [...] Added Spine Lamina, 1 S eg Office/Outpatient Visit,Patria Raymundo 2015 Advance Directives Directive Yes / No Effective Date File Name No Information Encounters Encounter Description Practice Location Reason(s) For Visit Diagnoses Date Provider Providers Copied on Encounter [facility], [address], [place], [place], [id number] , [place] tel: [phone] [facility] No Information 3 Mehbod Amir. [facility], [address], [place], [place], [address] , [place]. tel: [phone] [facility], [address], [place], [id number] , [place] tel: [phone] [facility] No Information 3 Kimberly Reg. [address] [place] [address] [address], [place], [place], [id number] , [place]. tel: [phone] Referring Provider: Corona Dixon, [address], [address]. tel:[phone] [facility], [address], [place], [address] , [place] tel: [phone] [facility] No Information 3 Mehbod Amir. [facility], [address] [place] [address], [facility], [address] , [place]. tel: [phone] [facility], [address], [facility] [place], [address] , [place] tel: [phone] [facility] No Information 3 Mehbod Amir. [facility], [address] [place] [address], [facility], [address] , [place]. tel: [phone] Referring Provider: Corona Dixon, [address], [address]. tel:[phone] [facility], [address], [place], [address] , [place] tel: [phone] [facility] No Information 3 Mehbod Amir. [facility], [address], [facility], [address] , [place]. [phone] Office/Outpa tient Visit,Est, Mod [facility], [address], [place], [address] , [place] [phone] [facility] Spinal stenosis, lumbar region with neurogenic claudication 3 Mehbod Amir. [facility], [address], [facility] [place], [address] , [place]. tel:[phone] Referring Provider: Corona Dixon [address], [address]. tel:[phone] Office/Outpa tient Visit,New, Mod [facility], [address], [facility] [place], [address] , [place] [phone] [facility] Spinal stenosis, lumbar region with neurogenic claudication 2 Mehbod Amir. [facility], [address] [place] [address] [address], [facility], [address] , [place]. [phone] Referring Provider: Corona Dixon [address], [address]. tel:[phone] Office/Outpa tient Visit,Est, Mod [facility], [address], [facility] [place], [address] , [place] [phone] [facility] Other forms of scoliosis, lumbar regionPost Op - Normal Follow-up 8 Mehbod Amir. [facility], [address] [place] [address] [address], [facility], [address] , [place]. [phone] Referring Provider: Corona Dixon [address], [address]. tel:[phone] Office/Outpa tient Visit,Est, Low [facility], [address], [place], [place], [id number] , [place] tel: [phone] [facility] Encounter for other specified surgical aftercareArthrode sis status Mehbod Amir. [facility], [address] [place] [address], [place], [place], [address] , [place]. tel: [phone] Referring Provider: Corona Dixon [address], [address]. tel:[phone] Office/Outpa tient Visit,Est, Mod [facility], [address], [facility] [place], [address] , [place] tel: [phone] [facility] Spinal stenosis, lumbar region NOS Mehbod Amir. [facility], [address] [place] [address], [place], [place], [id number] , [place]. tel: [phone] Referring Provider: Corona Dixon [address], [address]. tel:[phone] [facility], [address], [facility] [place], [address] , [place] tel: [phone] [facility] Encounter for follow-up examination after completed treatment for conditions other than malignant neoplasm Mehbod Amir. [facility], [address] [place] [address], [place], [place], [address] , [place]. tel: [phone] Referring Provider: Corona Dixon [address], [address]. tel:[phone] [facility], [address], [facility] [place], [address] , [place] tel: [phone] [facility] Spinal stenosis, lumbar region Kimberly Finney. [address] [place] [address], [place], [place], [id number] , [place]. tel: [phone] Referring Provider: Corona Dixon [address], [address]. tel:[phone] [facility], [address], [facility] [place], [address] , [place] tel: [phone] [facility] No Information Sergei- 7 Mehbod Amir. [facility], [address] [place] [address], [facility] [place], [address] , [place]. tel: [phone] Referring Provider: Corona Dixon [address], [address]. tel:[phone] Office/Outpa tient Visit,Est, Mod [facility], [address], [facility] [place], [address] , [place] tel: [phone] [facility] Spinal stenosis, lumbar region Apr-0 7 Mehbod Amir. [facility], [address] [place] [address], [place], [place], [address] , [place]. tel: [phone] Referring Provider: Corona Dixon [address], [address]. tel:[phone] [facility], [address], [facility] [place], [address] , [place] tel: [phone] [facility] Spinal stenosis, lumbar region Sep- 6 Eckroth Reg. [address] [place] [address], [facility] [place], [address] , [place]. tel: [phone] Referring Provider: Corona Dixon [address], [address]. tel:[phone] [facility], [address], [facility] [place], [address] , [place] tel: [phone] [facility] Spinal stenosis, lumbar region Aug- 6 Mehbod Amir. [facility], [address] [place] [address], [facility] [place], [address] , [place]. tel: [phone] Referring Provider: Corona Dixon [address], [address]. tel:[phone] [facility], [address], [place], [place], [address] , [place] tel:[phone] [facility] No Information 6 Mehbod Amir. [facility], [address] [place] [address] [address], [place], [place], [address] , [place]. tel:[phone] Referring Provider: Corona Dixon [address], [address]. tel:[phone] Office/Outpa tient Visit,New, Mod [facility], [address], [place], [place], [address] , [place] tel:[phone] [facility] OverweightSpinal stenosis, lumbar region 6 Mehbod Amir. [facility], [address], [place], [place], [address] , [place]. tel:[phone] Referring Provider: Corona Dixon [address], [address]. tel:[phone] Family History Family Member Type Diagnosis Age At Onset No Information Payers Payer name Insurance type Covered republican ID Valentin harrell(s) [employer] [facility] 2021 CI [id number] Social History Type Description Quantity Date Captured [...] Weight Management Education Rela donnell to Overweight Blood Pressure Management Relate d to Unspecified Essential Hypertension Weight Management Education Rela donnell to Overweight Weight management: I nstructed to return to General Practitioner timeframe: 1 Month. Related to Overweight Assessments Type Assessment Date No Information Patient Care Teams Name Effective Dates (start - stop) Status Members No Information
[2023-05-14 16:58] LABS: Basophils Absolute Auto 0.02 K/uL (0.00-0.30); Basophils Percent Auto 0.3 % (0.0-3.0); Eosinophils Absolute Auto 0.14 K/uL (0.00-0.50); Eosinophils Percent Auto 2.1 % (0.0-7.0); Hematocrit 29.9 % (33.0-51.0); Hemoglobin* 9.7 gm/dL (12.0-16.0); Immature Granulocytes Abs Auto 0.02 K/uL (0.00-0.30); Immature Granulocytes Pct Auto 0.3 %; Lymphocytes Percent Auto 7.6 % (20-44); Mean Corpuscular HGB Conc 32 gm/dL (32-36); Mean Corpuscular Hemoglobin 31 pg (26-34); Mean Corpuscular Volume 96 fL (80-100); Neutrophils Percent Auto 82.7 % (42.0-72.0); Platelet Count* 359 K/uL (140-440); RDW Coefficient of Variation % 12.5 % (11.5-15.5); Red Blood Count 3.13 m/uL (4.00-5.20); White Blood Count* 6.59 K/uL (4.50-11.00)
[2023-05-14 16:59] LABS: Slide Review Reflex No
[2023-05-14 17:09] LABS: Chloride* 98 mmol/L (96-114)
[2023-05-14 17:10] LABS: Potassium* 3.7 mmol/L (3.6-5.1); Sodium* 134 mmol/L (135-149)
[2023-05-14 17:12] LABS: Anion Gap 11 mEq/L (7-15); Aspartate Amino Transferase* 37 U/L (12-35); Bilirubin Total* 0.7 mg/dL (0.1-1.5); Carbon Dioxide* 25 mmol/L (20-32); Creatinine* 0.5 mg/dL (0.5-1.5); Est. Creatinine Clearance* 43.74; Estimated Glomerular Filt Rate 98 ml/min
[2023-05-14 17:13] LABS: Alanine Aminotransferase* 35 U/L (4-35); Alkaline Phosphatase* 105 U/L (40-150); Blood Urea Nitrogen* 14 mg/dL (7-30); Calcium* 8.8 mg/dL (8.4-10.6); D Dimer Quantitative* 2.46 ug/ml (0.00-0.50); Glucose* 160 mg/dL (60-115); Total Protein* 7.1 g/dL (6.0-8.3)
[2023-05-14 17:15] LABS: C Reactive Protein* 3.2 mg/dL (0.5-1.0)
--- NOTE | 2023-05-14 17:15 | CRLHL7_ITS ---
For Patients: As a result of the Century Cures Act, medical imaging exams and procedure reports are released immediately into your electronic medical record. You may view this report before your referring provider. If you have questions, please contact your health care provider. INDICATION: Lumbar back surgery 10 days ago, elevated D-dimer COMPARISON: 12/16/2016, 01/04/2018, 12/03/2018 TECHNIQUE: CT angiogram chest with contrast, pulmonary embolism protocol. Multiplanar axial, coronal, and sagittal reformats are included. MIP images to improve detection of pulmonary emboli are included. Intravenous contrast: x mL Omnipaque 350 FINDINGS: PE: Well-timed contrast bolus. No pulmonary emboli. Normal caliber main pulmonary artery. Normal sized right heart chambers. No reflux of contrast below the diaphragm. Heart and great vessels: No pericardial effusion. Normal cardiac chamber size. Moderate atherosclerotic plaques. No aortic aneurysm. Lungs: Expiratory imaging. Diffusely low volumes with diffuse atelectasis. No large pneumonic consolidation.. Normal appearance of the pulmonary interstitium. Pleura: Small bilateral posteriorly layering effusions. No pneumothorax. Airway: Normal tracheobronchial tree. Lymph nodes: No thoracic adenopathy. Mediastinum: No pneumomediastinum. Bones: Upper lumbar laminectomy with hardware, partially visualized. Partially visualized hardware in the left proximal humerus. Partially visualized cervical fusion hardware. T8 vertebral body fracture with about 50 percent loss of height and diffuse sclerosis of the vertebral body. This is new since 2019. Chest wall: Normal. No masses. Upper abdomen: 1 cm exophytic soft tissues/enhancing lesion arising from the right mid kidney. This actually looks a little bit smaller and the immediately adjacent cystic lesion is new since 2019. Question ablation of a right kidney mass. IMPRESSION: 1. No pulmonary embolus. 2. Trace bilateral pleural effusions with low lung volumes. 3. Irregular appearance of the right mid kidney, question renal mass treatment with possible residual or recurrent tumor. 4. New, since 2019, pathologic appearing compression fracture of the T8 vertebral body. Discussed with Dr. Slaughter at 7:36 p.m. on 04/1923. Please note that all CT scans at this facility use dose modulation, iterative reconstruction, and/or weight-based dosing when appropriate to reduce radiation dose to as low as reasonably achievable. Dictated by Keily Hoyt MD @ 05/14/2023 7:36:58 PM (Electronically Signed)
[2023-05-14 17:28] LABS: NT Pro B Type NatriureticPept* 904 pg/mL
[2023-05-14 17:52] LABS: TSH With Reflex to FT4* 0.828 uIU/mL (0.270-4.200)
[2023-05-14 19:13] VITALS: BP 151/72; PULSE 76; RESP 18; O2SAT 98
== END 2023-05-14 20:07 | disposition home or self-care (01) ==
PROVIDERS: Emergency Provider Emergency Medicine; PCP Internal Medicine
DX: R60.0 Localized edema (principal); R93.429 Abnormal radiologic findings on diagnostic imaging of unspecified kidney
CPT/HCPCS: 36415; 71275; 80048; 80076; 83880; 84443; 85025; 85379; 86140; 93970; 99284; Q9967

== ENCOUNTER 2023-05-25 14:50 | Outpatient (RCR) | payer MEDICARE, SELFPAY ==
--- NOTE | 2023-02-17 11:22 | ONC.NURNOTE ---
Pt called this week noting a area on her right breast RLQ near nipple about 3mm that she describes as a tiny, red raised pimple-like lump. She denies pain. BNN LM for pt. Pt returned call today. Pt saw Dr. Dyana Schafer for a unrelated procedure yesterday and asked her to assess it. Per Dr. Schafer, it is where pt had a previous skin biopsy with Dr. Schafer and is consistent with expected scarring from healing.
--- NOTE | 2023-04-13 13:45 | URNOTE ---
Request received for authorization for?Mashat ([id number]). Prior authorization is not required per [facility] In[facility]able Drug Prior Authorization List.
[2023-04-14 13:25] VITALS: BP 127/65; PULSE 69; RESP 16; TEMP 36.8; O2SAT 97
== END 2023-06-13 23:59 | disposition home or self-care (01) ==
LOC: CCIC 14:50
PROVIDERS: PCP Internal Medicine; Referring Provider Internal Medicine; Visit Provider Physician Assistant
DX: C50.911 Malignant neoplasm of unspecified site of right female breast (principal); Z17.0 Estrogen receptor positive status [ER+]; M81.0 Age-related osteoporosis without current pathological fracture; Z86.73 Personal history of transient ischemic attack (TIA), and cerebral infarction without residual deficits; R93.429 Abnormal radiologic findings on diagnostic imaging of unspecified kidney; S22.069A Unspecified fracture of T7-T8 vertebra, initial encounter for closed fracture; I89.0 Lymphedema, not elsewhere classified
CPT/HCPCS: 96374; 99212; 99214; 99215; J3489

== ENCOUNTER 2023-06-23 14:53 | Outpatient (CLI) | payer MEDICARE, SELFPAY ==
--- OUTSIDE RECORDS SUMMARY | 2023-06-23 14:55 | XMS_ITS | Continuity of Care Document ---
Author Name Unknown Organization [facility] Address [address] [place] [address] Phone Care Team Providers Care Stock Clerk Name Role Phone Alexandro HARRISON, Amicass Unavailable Unavailable Allergies, Adverse Reactions, Alerts Substance Reaction Status Criticality Sulfa (Sulfonamide Antibiotics) anaphalaxis Active No Information hazelnut Active No Information codeine Active No Information Medications Medication Instructions Dosage Effective Dates (start - stop) Status Comments methocarbamol 500 mg tablet Take one half tablet every 6 hours PRN muscle spasms - Active gabapentin 300 mg capsule take 1 capsule by oral route 3 times every day 300 MG - Active OXYCODONE HCL (unknown strength) Not Available - Active LASIX (unknown strength) Not Available - Active ALENDRONATE SODIUM (unknown strength) Not Available - Active FINASTERIDE (unknown strength) Not Available - Active GABAPENTIN (unknown strength) Not Available - Active OMEPRAZOLE (unknown strength) Not Available - Active PROAIR DIGIHALER (unknown strength) Not Available - Active AMBIEN (unknown strength) Not Available - Active LIPITOR (unknown strength) Not Available - Active CLOPIDOGREL (unknown strength) Not Available - Active CLONIDINE (unknown strength) Not Available - Active UROMAG (unknown strength) Not Available - Active HUMALOG (unknown strength) Not Available - Active LANTUS SOLOSTAR (unknown strength) Not Available - Active Procedures Procedure Date Postop Followup Visit X-Ray Exam Lower Spine 2-3 Views 2022 Postop Followup Visit TLIF - Includes PSF at the same level - PA PSF - Additional Level(s) - PA Posterior Instrumentation, 3-6 Segments - PA PEEK/ Cage/ Implant, For Interbody Fusio n - PA Eric / Colón-Bower Osteotomy, Lumbar - PA Lami, Facetectomy/Foraminotomy, Lumbar ( Stenosis) TLIF - Includes PSF at the same level No PSF - Additional Level(s) Posterior Instrumentation, 3-6 Segments PEEK/ Cage/ Implant, For Interbody Fusio n Eric / Colón-Bower Osteotomy, Lumbar Lami, Facetectomy/Foraminotomy, Lumbar [...] Spine Lamina, 1 S eg Office/Outpatient Visit,New, [place] 2015 Advance Directives Directive Yes / No Effective Date File Name No Information Encounters Encounter Description Practice Location Reason(s) For Visit Diagnoses Date Provider Providers Copied on Encounter [facility], [address], [place], [place], [id number] , [place] tel:[phone] [facility] [place] Encounter for other specified surgical aftercare 3 Mehbod Amir. [facility], [address], [place], [place], [address] , [place]. tel: [phone] Referring Provider: Corona Dixon, [address], [address]. tel:[phone] [facility], [address], [place], [place], [address] , [place] tel: [phone] [facility] Spinal stenosis, lumbar region with neurogenic claudication 3 alyssa Finney. [address] [place] [address] [address], [place], [place], [address] , [place]. tel: [phone] Referring Provider: Corona Dixon, [address], [address]. tel:[phone] [facility], [address], [place], [place], [address] , [place] tel: [phone] [facility] No Information 3 Mehbod Amir. [facility], [address], [place], [place], [address] , [place]. tel:[phone] [facility], [address], [place], [place], [address] , [place] tel: [phone] [facility] No Information 3 Kimberly Finney. [address] [place] [address] [address], [place], [place], [address] , [place]. tel: [phone] Referring Provider: Corona Dixon, [address], [address]. tel:[phone] [facility], [address], [facility], [address] , [place] tel: [phone] [facility] No Information 3 Mehbod Amir. [facility], [address] [place] [address] [address], [facility], [address] , [place]. tel: [phone] Referring Provider: Corona Dixon [address], [address]. tel:[phone] [facility], [address], [place], [address] , [place] tel: [phone] [facility] No Information 3 Mehbod Amir. [facility], [address] [place] [address] [address], [facility] [place], [address] , [place]. tel: [phone] Office/Outpa tient Visit,Est, Mod [facility], [address], [place], [address] , [place] tel: [phone] [facility] Spinal stenosis, lumbar region with neurogenic claudication 3 Mehbod Amir. [facility], [address] [place] [address] [address], [facility] [place], [address] , [place]. tel: [phone] Referring Provider: Corona Dixon [address], [address]. tel:[phone] Office/Outpa tient Visit,New, Mod [facility], [address], [place], [address] , [place] tel: [phone] [facility] Spinal stenosis, lumbar region with neurogenic claudication 2 Mehbod Amir. [facility], [address] [place] [address] [address], [facility] [place], [address] , [place]. tel: [phone] Referring Provider: Corona Dixon [address], [address]. tel:[phone] Office/Outpa tient Visit,Est, Mod [facility], [address], [place], [place], [address] , [place] tel: [phone] [facility] Other forms of scoliosis, lumbar regionPost Op - Normal Follow-up 8 Mehbod Amir. [facility], [address] [place] [address] [address], [place], [place], [address] , [place]. tel: [phone] Referring Provider: Corona Dixon [address], [address]. tel:[phone] Office/Outpa tient Visit,Est, Low [facility], [address], [place], [place], [address] , [place] tel: [phone] [facility] Encounter for other specified surgical aftercareArthrode sis status 8 Mehbod Amir. [facility], [address] [place] [address] [address], [place], [place], [address] , [place]. tel:[phone] Referring Provider: Corona Dixon [address], [address]. tel:[phone] Office/Outpa tient Visit,Est, Mod [facility], [address], [place], [place], [address] , [place] tel: [phone] [facility] Spinal stenosis, lumbar region NOS 7 Mehbod Amir. [facility], [address] [place] [address] [address], [place], [place], [address] , [place]. tel:[phone] Referring Provider: Corona Dixon [address], [address]. tel:[phone] [facility], [address], [place], [place], [address] , [place] tel: [phone] [facility] Encounter for follow-up examination after completed treatment for conditions other than malignant neoplasm 7 Mehbod Amir. [facility], [address], [place], [place], [address] , [place]. tel: [phone] Referring Provider: Corona Dixon [address], [address]. tel:[phone] [facility], [address], [place], [place], [address] , [place] tel: [phone] [facility] Spinal stenosis, lumbar region Ger- 7 [facility] [address] [place] [address], [place], [place], [address] , [place]. tel: [phone] Referring Provider: Corona Dixon [address], [address]. tel:[phone] [facility], [address], [place], [place], [address] , [place] tel: [phone] [facility] No Information 7 Mehbod Amir. [facility], [address], [place], [place], [address] , [place]. tel: [phone] Referring Provider: Corona Dixon [address], [address]. tel:[phone] Office/Outpa tient Visit,Est, Mod [facility], [address], [place], [place], [address] , [place] tel: [phone] [facility] Spinal stenosis, lumbar region Apr-0 7 Mehbod Amir. [facility], [address], [place], [place], [address] , [place]. tel: [phone] Referring Provider: Corona Dixon [address], [address]. tel:[phone] [facility], [address], [place], [place], [address] , [place] tel: [phone] [facility] Spinal stenosis, lumbar region Sep- 6 [facility] [address] [place] [address] [address], [place], [place], [address] , [place]. tel:[phone] Referring Provider: Corona Dixon [facility] [address] [place], [address]. tel:[phone] [facility], [address], [place], [place], [address] , [place] [phone] [facility] [place] Spinal stenosis, lumbar region Jan- 8-201 6 Mehbod Amir. [facility], [address] [place] [address], [place], [place], [address] , [place]. [phone] Referring Provider: Corona Dixon [address], [address]. tel:[phone] [facility], [address], [place], [place], [address] , [place] [phone] [facility] No Information 4-201 6 Mehbod Amir. [facility], [address] [place] [address], [place], [place], [address] , [place]. tel:[phone] Referring Provider: Corona Dixon [address], [address]. tel:[phone] Office/Outpa tient Visit,[facility], [address], [place], [place], [address] , [place] [phone] [facility] OverweightSpinal stenosis, lumbar region 2-201 6 Mehbod Amir. [facility], [address] [place] [address], [place], [place], [address] , [place]. tel:[phone] Referring Provider: Corona Dixon [address], [address]. tel:[phone] Family History Family Member Type Diagnosis Age At Onset No Information Payers Payer name Insurance type Covered alliance party ID Valentin dodsonsuki(s) [employer] [facility] 2021 CI [id number] Social History Type Description Quantity Date Captured Comments Alcohol Use Details Unknown Caffeine Use Details Unknown Tobacco Use Status Never smoked tobacco 2022 Smoking Status Never smoker Non-Smoking Tobacco Use Details : No Details Available : No Details Available Sex Female Vital Signs Date / Time: Height Weight BMI Pulse Rate Blood Pressure Temperature Respiratory Rate Body Surface Area Head Circumference Head Circ. Percentile Wt./Nils. Percentile BMI percentile Pulse Ox Inhaled Ox 11:23 AM 65.00 in 69.853 kg (154.00 lbs) 25.6 3 kg/m eter (2) Chief Complaint And Reason [...]
--- NOTE | 2023-06-23 15:30 | CRLHL7_ITS ---
For Patients: As a result of the Century Cures Act, medical imaging exams and procedure reports are released immediately into your electronic medical record. You may view this report before your referring provider. If you have questions, please contact your health care provider. Indication: Mid back pain. Technique: T2, T1, and STIR sagittal as well as gradient echo axial sequences were obtained. Performed before and after IV gadolinium. Contrast: 15 cc DOTAREM. Comparison: CTA chest from 05/14/2023. Findings: Mildly exaggerated thoracic kyphosis, unchanged from 05/14/2023. Moderate wedge compression of the T9 vertebral body. This demonstrates some marrow signal changes and abnormal gadolinium enhancement which could indicate either recent additional minor compression or mechanical instability. The overall appearance is similar to 05/14/2023. 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 No evidence for additional fracture or worrisome bone lesion. Postop changes noted from previous cervical and lumbar fusion procedures at the margins of today`s thoracic exam. Multilevel disc degenerative changes. No sizable thoracic disc herniations. The thoracic central canal is patent. No intrinsic thoracic cord abnormalities identified. No abnormal intradural IV gadolinium enhancement in the thoracic region. The thoracic neural foramina are patent. The paravertebral soft tissues are grossly negative. Impression: 1. Moderate wedge compression of the T9 vertebral body, morphologically similar to 05/14/2023. Extensive sclerosis was noted in this vertebral body at that time 2. Minor marrow signal change and enhancement in the T9 body and today`s exam compatible with mechanical instability or additional minor acute compression. 3. Mildly exaggerated thoracic kyphosis, unchanged. 4. Scattered spondylosis elsewhere. Dictated by Heriberto Bey MD @ 06/26/2023 10:05:51 AM (Electronically Signed)
== END 2023-06-23 14:54 | disposition home or self-care (01) ==
LOC: MRI 14:53
PROVIDERS: PCP Internal Medicine; Visit Provider Internal Medicine
DX: M54.9 Dorsalgia, unspecified (principal); S22.069A Unspecified fracture of T7-T8 vertebra, initial encounter for closed fracture
CPT/HCPCS: 72157; A9575

== ENCOUNTER 2023-07-07 15:30 | Outpatient (RCR) | payer MEDICARE, SELFPAY ==
--- NOTE | 2023-06-15 20:00 | OT.OPLE ---
OT Outpatient Lymphedema Eval OT Outpatient Lymphedema Eval Start: 06/15/23 15:33 Freq: Status: Active Protocol: Document 06/15/23 15:33 AMB (Rec: 06/15/23 19:58 AMB [id number]) E-signed By Ella Irvin, OTR/L, CLT, ENERGY ADVISOR OT Outpatient Evaluation Details Type Type Eval Complexity Low OT OP Lymphedema Evaluation Insurance Information Insurance Information Medicare B Current Condition/Medical Diagnosis Referring Provider Emmy Kincaid PA-C Treatment Diagnosis Lymphedema right breast Date Of Onset 12/21/21 Other Precautions Pt had recent back surgery, states she has recovered well, no restrictions. Current Work Status Current Work Status Retired Subjective Subjective Pt states she had a recheck with oncology and they felt she had some puckering in her breast that could be cancer or lymphedema, she states she does not believe it is cancer and cancelled the imaging that was scheduled. Pt would like to have a re-assessment regarding lymphedema as she has recently been treated in the clinic for lymphedema in her right breast. Pt has a swell spot and has been using it in her bra, however, she had back surgery in April and with the holidays admits she hasn't been doing as much as she should. She did end up in the hospital following her back surgery with suspect PE but this was ruled out. They saw something in her T8 vertebrae that was concerning for metastasis but her spine surgeon ruled this out as well , told her it was an old compression fx. Medical History Medical History Cancer Treatment/Surgery, Radiation Medical History Comments PMH (Copied from oncology chart) hazelnut Allergy (Severe, Verified 05/25/23 14:51) Throat closes and hives Sulfa (Sulfonamide Antibiotics ) Allergy (Severe, Verified 14:51) Anaphylaxis adhesive Allergy (Unknown, Verified 05/25/23 14:51) cantaloupe Allergy (Unknown, Verified 05/25/23 14:51) codeine Adverse Reaction (Mild , Verified 05/25/23 14:51) Nausea and Vomiting trees Allergy (Intermediate, Uncoded 05/23/23 15:01) stuffed nose Sulfites Allergy (Mild, Uncoded 05/23/23 15:01) Rash Gluten Meal Adverse Reaction ( Unknown, Uncoded 05/23/23 15: 01) GI intolerance - Last Reconciled 05/25/23 by Catherine Guardado RN acetaminophen (Tylenol Extra Strength) 1,000 mg PO Q6H PRN albuterol sulfate 90 mcg/ actuation 2 - 4 puffs inhalation Q4-6H PRN atorvastatin 10 mg PO HS beclomethasone dipropionate 80 mcg/actuation (Qvar RediHaler ) 2 inhalations PO BID betamethasone dipropionate 0. 05% 1 applic topical BID PRN biotin 5,000 mcg PO DAILY calcium carbonate-vitamin D3 600 mg-25 mcg (1,000 unit) 1 cap PO DAILY carvedilol 6.25 mg PO BID clopidogrel (Plavix) 75 mg PO DAILY eszopiclone (Lunesta) 2 mg PO QHS flash glucose scanning reader (EstatelyStyle Daja 14 Day [place] ) As directed flash glucose sensor ( EstatelyStyle Daja 14 Day Sensor kit) As directed fluticasone propionate 50 mcg/ actuation (Allergy Relief ( fluticasone)) 2 sprays intranasal BID folic acid 1 mg PO QDAY gabapentin 600 mg (2 x 300 mg) PO HS glucos sul [id number] (Glucosamine Chondroitin) 1 cap PO DAILY insulin aspart U-100 (Novolog FlexPen U-100 Insulin aspart) 4 - 9 units subcut TIDWM insulin glargine 16 units subcut QAM magnesium oxide 400 mg PO BID nifedipine ER (Procardia XL) 30 mg PO QDAY omeprazole 20 mg PO DAILY oxycodone 5 mg PO Q8H PRN pen needle, diabetic (BD Ultra -Fine Mini Pen Needle) As directed pen needle, diabetic (UltiCare Pen Needle) use up to 6x daily sennosides-docusate sodium 8.6 -50 mg (Senexon-S) 1 - 4 tab- caps PO BID PRN valacyclovir 500 mg PO BID PRN Referred by:: Lina Meléndez MD Nutrition Screen Have you recently lost weight without trying?: no Smoking Status: Never smoker Tobacco Measurement Exposure to secondhand smoke: No Electronic Cigarettes (Vaping) Vaping Status: Never vaped Exposure to secondhand e- cigarettes?: No Fall Risk 1a. Has the patient fallen in the last year?: No 2. Does the patient feel unsteady when standing or walking?: Yes 3. Does the patient worry about falling?: No Does pt use assistive devices: Yes walker HPI HPI Time Seen by Provider: 13:30 Patient Seen On:: May 25, 2023 Reason for consultation: Breast cancer follow-up Consult date: 07/28/22 History source: patient Oncology Hx: 0. September 27, 2021: bone mineral density scan completed per primary care, showing osteoporosis of the left forearm, and borderline osteopenia elsewhere. T-score -2.7 1. October 2021: underwent routine mammographies, with asymmetry in the right breast at the 10 o'clock position, 11 cm from the nipple 2. November 05, 2021: ultrasound completed, showing a solid hypoechoic mass with micro calcifications measuring 5 x 4 mm 3. November 16, 2021: core needle biopsy: invasive ductal carcinoma, grade 2 of 3, no angiolymphatic invasion and no associated DCIS. ER/IN strongly positive, HER2 equivocal by IHC and negative by fish. Ki-67 16% 4. December 21, 2021: right breast lumpectomy, final pathological stage IA, pT1b pNX. 6 mm tumor, grade 2 of 3 , ERPR strongly positive and HER2 negative. 5. January 28, 2022: Oncotype DX score 17. 5% distant recurrence risk at 9 years with AI or GRANGER alone. Group average absolute chemotherapy benefit <1%. 6. February 18, 2022: completed whole right breast radiation 7. February 2022: Initial oncology recommendations were to proceed without adjuvant endocrine therapy, but on further consideration patient elected to try anastrazole for 10 days but found insomnia intolerable. Elected to continue surveillance without additional adjuvant endocrine therapy. 8. July 2022: Screening mammogram detected possible abnormality in right breast; this was further evaluated with diagnostic mammogram and ultrasound which appeared to be benign post radiation changes; biopsy is negative for inflammatory breast cancer . 9. November 2022, patient developed right axillary swelling and pain. Benign imaging Interval Hx: Patient presents today for breast cancer evaluation. She is recovering well after her recent back surgery, which she hopes is helpful for her scoliosis and apparent disc disease. She does not had any other new pain or headaches today. No change in breathing , bowel, bladder. Energy, weight, appetite are otherwise adequate an excellent. She eats a variety of fruits and vegetables, is active, does not smoke, minimal alcohol use , eats tree nuts. Denies any breast changes. Has decreased the frequency with which she is doing her occupational therapy exercises so has noticed some increased swelling without pain. She walks twice daily with her dog and does her back exercises for her surgery. She enjoys sewing, gardening, volunteering at [employer] with the [employer]. Enjoys spending time with her cat and dog. Enjoys going to [address] [place] [address] to exercise. Discussed recent imaging done in the emergency room. No other changes or concerns today. [facility] Medical History (Reviewed @ 16:30 by Michelle Slaughter MD) Hyperplastic polyp of intestine K63.5 - Polyp of colon (ICD-10 ) History of depression (2001) Z86.59 - Personal history of other mental and behavioral disorders (ICD-10) Surgical History (Reviewed @ 16:30 by Michelle Slaughter MD) History of lumbar laminectomy for spinal cord decompression Z98.890 - Other specified postprocedural states (ICD-10) S/P breast lumpectomy (11/2021 ) Z98.890 - Other specified postprocedural states (ICD-10) History of hemorrhoidectomy Z98.890 - Other specified postprocedural states (ICD-10) History of basal cell carcinoma excision Z98.890 - Other specified postprocedural states (ICD-10) Z85.828 - Personal history of other malignant neoplasm of skin (ICD-10) History of foot surgery Z98.890 - Other specified postprocedural states (ICD-10) Hx of decompressive lumbar laminectomy Z98.890 - Other specified postprocedural states (ICD-10) History of cataract surgery Z98.49 - Cataract extraction status, unspecified eye (ICD- 10) History of carpal tunnel release Z98.890 - Other specified postprocedural states (ICD-10) 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) Z96.659 - Presence of unspecified artificial knee joint (ICD-10) History of open reduction and internal fixation (ORIF) procedure (07/16/19) Z98.890 - Other specified postprocedural states (ICD-10) History of hysterectomy (07/08) Z90.710 - Acquired absence of both cervix and uterus (ICD-10 ) History of breast biopsy (07/04) Z98.890 - Other specified postprocedural states (ICD-10) History of blepharoplasty (07/04) Z98.890 - Other specified postprocedural states (ICD-10) History of bladder surgery () Z98.890 - Other specified postprocedural states (ICD-10) Surgical History Surgical History Please see above. Medications Medications Please see above. Family History Family History of Lymphedema No Living Situation Current Living Situation Home With Spouse Or SO Exercise History Does Patient Exercise Regularly Yes Exercise Comments Attends exercise classes at [address] [place] [address], does back exercises and walks her dog, also has home program for lymphedema. Pain Pain No Loss of Function/Strength/Mobility Loss Of Function/Strength/Mobility No Previous Treatment Previous Treatment For Swelling/ MLD,Compression Garment, Lymphedema Exercise,Self Massage Previous Treatment/Current Home Program Pt declined lymphedema pump during last episode of care and today, does not wish to have this. Compression History Does Patient Currently Wear Compression Yes During Daytime Compression During Daytime Comments Compressive bra and swell spot Does Patient Currently Wear Compression No At Night Current Swelling (Location/Pitting/Texture) Pitting Scale: 0 = No pitting 1+ Tissue returns to normal almost immediately 2+ Tissue returns after 15-30 seconds 3+ Tissue returns after 1-1/2 minutes 4+ Tissue returns after 2-3 minutes N/A Tissue no longer pits due to induration Tissue texture: Soft or indurated Clinical Presentation Area Right inferior breast. Clinical Presentation Pitting No pitting, very mild fullness . Clinical Presentation Texture Very mild, palpable dimpling in seated, not noted in supine . Triggering Event & Start Date of Lumpectomy and extensive Swelling/Lymphedema radiation. (pt states she has not had LN removed) Type of Swelling Secondary Staging Staging Stage 1 Skin Changes Skin Changes Comments Right breast is slightly pink, question XRT side affect? Circumferential Measurements Upper Extremity Left Upper Extremity MCP 19.0 Palm 19.4 Wrist 16.5 10cm 19.5 20cm 23.6 30cm 26.8 40cm 30.0 50cm 35.0 Total 189.8 Right Upper Extremity MCP 19.0 Palm 20.0 Wrist 16.5 10cm 19.6 20cm 23.9 30cm 27.0 40cm 29.8 50cm 34.8 Total 190.6 Trunk Chest/Nipple Line 111 Total 111 Assessment Assessment Pt presents to OT with concerns about possible swelling in the lower part of her right breast. States she has not been as good at doing her exercises and using her swell spot and wonders if maybe her lymphedema is coming back. Pt has very mild swelling in the inferior breast. Discussed the importance of continued self- care to manage her lymphedema as it is a chronic condition. Recommended increasing compliance with home program / compression and to re-assess in 2-3 weeks, pt feels this is a good plan. Offered to pursue lymphedema pump, pt has declined this in the past and is not interested in getting one. Problem List Problem List Comments At risk for exacerbation of her lymphedema. Patient Goals Patient Goals 1. Pt will be independent and compliant with her home program including self MLD, exercises and compression in order to manage her right breast lymphedema. 3 weeks 2. Pt will present with decreased fullness in the lower right breast in order to reduce risk for infection and further lymphedema related complications. 6 weeks Treatment Plan Treatment Plan Evaluation,Edema Control, Manual Therapy,Wound Care/Scar Management,Therapeutic Exercise,Therapeutic Activities,Self-Care/Home Management,Education Expected Frequency q 2-3 week Expected Duration 12wk Certification Certification I Certify That: Therapy Services Provided, Therapy Plan Established, Therapy Plan Reviewed Recertification Information Recertification Information Initial Certification Date 06/15/23 Recertification Due Date 09/13/23 Reasons to Continue Skilled Therapy Please see above POC Rehabilitation Potential Good Provider Signature Shows Agreement With POC & Medical Necessity Physician Comment/Change Comment or Changes Physician NPI Number #
== END 2023-07-07 16:46 | disposition home or self-care (01) ==
PROVIDERS: PCP Internal Medicine; Visit Provider Physician Assistant
DX: I89.0 Lymphedema, not elsewhere classified (principal); Z51.89 Encounter for other specified aftercare
CPT/HCPCS: 97140; 97165; 97530

== ENCOUNTER 2023-07-25 14:42 | Outpatient (CLI) | payer MEDICARE, SELFPAY ==
--- OUTSIDE RECORDS SUMMARY | 2023-07-25 14:46 | XMS_ITS | Clinical Summary ---
Author Name Unknown Organization [facility] Address [place], [place] [address] Care Team Providers Care Antique Jewelry Repairer Name Role Phone Lina Meléndez MD Primary Care Provider [phone] Allergies Active Allergy Reactions Criticality Noted Date Comments Adhesive Itching 12/18/2015 Carrot Oil Rash 12/18/2015 And carrot powder Cigarette Smoke Bronchospasm 09/27/2022 WOOD SMOKE ALSO Codeine Nausea And Vomiting 01/17/2007 Gluten GI Upset 05/21/2016 Including wheat Grass Pollen Shortness Of Breath,Runny Nose,Headache 12/31/2019 Tree Nut Hives 12/18/2015 Maple Flavor Diarrhea 12/28/2017 Melon Flavor Rash 12/18/2015 Unlisted Allergen (Include Detail In Comments) Rash 05/22/2016 Transdermal clonidine patch Sulfa (Sulfonamide Antibiotics) Anaphylaxis High 12/18/2015 Sulfite Rash 12/05/2016 Tree And Shrub Pollen *Unknown 12/05/2016 And wood smoke Medications Medication Sig Dispensed Refills Start Date End Date Status fluticasone (50 mcg per actuation) nasal solution (FLONASE) Inhale 2 Sprays to both nostrils two times daily. 0 Active magnesium oxide (MAG-OX 400) 400 mg tablet Take 400 mg by mouth two times daily. 2 03/05/2016 Active atorvastatin (LIPITOR) 10 mg tabletIndications:H yperlipidemia LDL goal <70 Take 1 tablet by mouth at bedtime. 30 tablet 0 05/23/2016 Active albuterol HFA 90 mcg/actuation inhaler INHALE TWO-FOUR PUFFS BY MOUTH EVERY FOUR-SIX HOURS NEEDED 0 12/04/2019 Active miscellaneous medical supply (Blood Pressure Cuff) miscIndications:Ess ential hypertension As directed. Home blood pressure monitoring for Essential hypertension Diagnosis. Upper arm automatic Cuff. 1 Each 0 09/11/2020 Active carvediloL (COREG) 6.25 mg tablet Take 6.25 mg by mouth 2 times daily with meals. 0 08/13/2021 Active Biotin 1 mg tablet Take 5,000 mg by mouth. 0 Active omeprazole (PRILOSEC) 20 mg Delayed-Release capsule Take 20 mg by mouth two times daily before meals. 0 12/20/2021 Active beclomethasone dipropionate (Qvar RediHaler) 80 mcg/actuation HFAb HFA inhaler Inhale 2 Puffs by mouth two times daily. 0 01/18/2022 Active eszopiclone (LUNESTA) 2 mg tablet Take 2 mg by mouth at bedtime. 0 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CompeteLE KYLIE) 0 12/31/2021 Active continuous glucose monitor SENSOR KIT (FREESYLE KYLIE) 0 12/31/2021 Active bd insulin pen needle uf mini 31 gauge x 3/16 Use up to 6 times daily 0 09/06/2022 Active valACYclovir (VALTREX) 500 mg tablet Take 1,000 mg by mouth one time if needed (Cold sores). 0 12/06/2021 Active calcium carbonate-vitamin D3 600 mg-25 mcg (1,000 unit) cap Take by mouth once daily. 0 Active glucosamine HCl/chondroitin daniel (GLUCOSAMINE-CHONDR OITIN ORAL) Take 1 Capsule by mouth once daily. 0 Active acetaminophen (TYLENOL) 325 mg tabletIndications:P ost-op pain Take 2 Tablets (650 mg) by mouth every 4 hours if needed (mild pain). Max acetaminophen dose: 4000mg in 24 hrs. 100 Tablet 0 10/18/2022 Active NIFEdipine (PROCARDIA XL) 30 mg extended-release tablet Take 30 mg by mouth once daily before a meal. 0 Active insulin aspart, U-100, (NovoLOG FlexPen U-100 Insulin) 100 unit/mL (3 mL) pen Inject 4-10 units subcutaneous three times daily before meals. 0 Active timoloL maleate (TIMOPTIC) 0.5 % ophthalmic solution APPLY 1 DROP TO EACH FINGERTIP ONCE DAILY AT BEDTIME NEEDED.* 0 11/23/2022 Active gabapentin (NEURONTIN) 300 mg capsule Take 300 mg by mouth three times daily. 0 Active clopidogreL (PLAVIX) 75 mg tabletIndications:C erebrovascular accident (CVA), unspecified mechanism (HC) Take 1 Tablet (75 mg) by mouth every morning. May resume on 05/08/23 0 05/08/2023 Active WalkerIndications:L umbar radiculopathy Walker with front wheels for home use for 3 months. 1 Each 0 05/05/2023 Active insulin glargine, U-100, (Lantus U-100 Insulin) 100 unit/mL injectionIndication s:Type 2 diabetes mellitus without complication, with long-term current use of insulin (HC) Inject 12 units subcutaneous once daily. 10 mL 0 05/05/2023 Active CPAPIndications:TC (obstructive sleep apnea) CPAP machine for home use at pressure 4.6-8.6cmw, nasal mask x1/3month with nasal pillows x 2/mo 1 Each 11 06/07/2023 Active Active Problems Problem Noted Date Diagnosed Date Trigger finger, right ring finger 09/24/2020 Overview: August 2020: Dr. Nixon injected and 2 weeks out 100% relief. TC 11/29/2017 AHI-14 11/05/2018 Arthritis of carpometacarpal (CMC) joint of righ t thumb 10/16/2017 Overview: September 2017: cortisone injection right CMC joint, 75 % improvement at 2 weeks. Jul 2018: Bilateral CMC Joint thumb injections by Dr. Nixon, 50% improvement to left and 80% improvement to right at 2 weeks Hyponatremia 12/07/2016 Hypomagnesemia 12/07/2016 Stroke 05/20/2016 Hypertensive urgency 05/20/2016 Psoriasis 05/20/2016 Spinal stenosis of lumbar re gion without neurogenic claudication 12/18/2015 HTN (hypertension) 12/18/2015 GERD (gastroesophageal reflux disease) 6 Type 2 diabetes mellitus wit hout complication, with long-term current use of insulin 03/23/2007 Backache, unspecified 03/23/2007 Osteoarthrosis, unspecified whether generalized or localized, unspecified site 03/23/2007 Major depressive disorder, recurrent episode, un specified 01/17/2007 Hyperlipidemia LDL goal <70 Urge incontinence Encounters Date Type Department Care Team Description 06/07/2023 2:00 PM COUNTER SALES REPRESENTATIVE Office Visit [facility] [address] [place] [address] Francesco Huffman MD Sleep Follow-up 06/07/2023 Travel 05/03/2023 10:51 AM COUNTER SALES REPRESENTATIVE Anesthesia Event [facility] [address] [place] [id number] Elena Tong MD 05/03/2023 9:30 AM COUNTER SALES REPRESENTATIVE - 05/03/2023 5:53 PM COUNTER SALES REPRESENTATIVE Surgery [facility] [address] [place] [id number] Gurinder Mc MD Decompression - Lateral recess Levels: L1-L3 Decompression - Transfacet/Transforami nal Levels: L1-L3 Posterior Spine Fusion with Instrumentation Levels: L1-L3 Transforaminal Lumbar Interbody fusion L1-L3 05/03/2023 7:51 AM COUNTER SALES REPRESENTATIVE - 05/05/2023 3:30 PM COUNTER SALES REPRESENTATIVE Hospital Encounter [facility] [address] [place] [id number] Gurinder Mc MD Acute post-operative pain (Primary Dx); Lumbar radiculopathy; Cerebrovascular accident (CVA), unspecified mechanism (HC); Constipation due to opioid therapy; Type 2 diabetes mellitus without complication, with long-term current use of insulin (HC) Discharge Disposition: Home Self Care 05/02/2023 Travel from Last 3 Months Immunizations Name Administration Dates Next Due Influenza, IIV4 04/20/2016 Social History Tobacco Use Types Packs/Day Years Used Date Smoking Tobacco: Never Passive Smoke Exposure: Never Smokeless Tobacco: Never Tobacco Cessation:Counseling Given: Not Answered Alcohol Use Standard Drinks/Week Comments No 0 (1 standard drink = 0.6 oz pur e alcohol) Social Connections Answer Date Recorded Frequency of Communication with Friends and Fami ly Not on file 06/17/2021 Financial Resource Strain Answer Date R ecorded Difficulty of Paying Living Expenses Not on file 06/17/2021 Difficulty of Paying Living Expenses Not on file 06/17/2021 Sex and Gender Information Value Date Recorded Sex Assigned at Female 08/31/2020 9:33 AM COUNTER SALES REPRESENTATIVE Gender Identity Female 08/31/2020 9:33 AM COUNTER SALES REPRESENTATIVE Sexual Orientation Straight 08/31/2020 9: 33 AM COUNTER SALES REPRESENTATIVE Obstetrics History Para Term AB IAB SAB Ectopic Multiple Livin g Live Births 6 6 5 1 0 0 0 0 0 5 Date Outcome GA Total Labor Labor/2nd/3rd Weight Sex Delivery Anes PTL Siri A1 A5 Name Cl in Term Term Term Term Term Comments 1 , 1 Last Filed Vital Signs Vital Sign Reading Time Taken Comments Blood Pressure 130/62 06/07/2023 2:05 PM COUNTER SALES REPRESENTATIVE Pulse 72 06/07/2023 2:05 PM COUNTER SALES REPRESENTATIVE Temperature 37.1 ??C (98.7 ??F) 05/05/2023 7:27 AM CS T Respiratory Rate 16 05/05/2023 7:27 AM COUNTER SALES REPRESENTATIVE Oxygen Saturation 100% 06/07/2023 2:05 PM COUNTER SALES REPRESENTATIVE Inhaled Oxygen Concentration - - Weight 70.8 kg (156 lb) 06/07/2023 2:05 PM COUNTER SALES REPRESENTATIVE Height 165.1 cm (5' 5) 06/07/2023 2:05 PM COUNTER SALES REPRESENTATIVE Body Mass Index 25.96 06/07/2023 2:05 PM COUNTER SALES REPRESENTATIVE Plan of Treatment Health Maintenance Due Date Last Done Comments Pneumococcal series for age 65+ (1 of 2 - PCV) 1953 Tdap 1958 Depression screening for age 12+ 1959 Tetanus booster 1967 Colonoscopy through age 75 1992 Zoster (shingles) series for age 50+ (1 of 2) 1997 DEXA/DXA scan for age 65+ 2012 Medicare Wellness for age 65+ 2012 Lipids for age 45-75 05/21/2021 05/21/2016 Influenza for age 65+ 02/24/2023 04/20/2016 BMI (ht and wt on same day) for age 18+ 06/07/2024 06/07/2023, 11/26/2018, 06/28/2017, Additional history exists Hepatitis C screening for ag e 18-79 Completed 12/08/2016 COVID-19 vaccine series Completed 10, 10/26/2022, 03/10/2022, Additional history exists Medical Devices Implanted Type Area Sheet Metal Former Device Identifier Shelf Expiration Date Model / Serial / Lot [id number] 1-4mm 30cc Medtronic Chips Canclls Freeze Dried Implanted:Qty: 1 on 12/06/2016 by Gurinder Mc MD at [facility] Explanted:at [facility] (Quantity not on file) Spine Medtronic Spine/Ortho 08/24/2021 [id number]# / [id number] / Spacer Lmbr [id number] Zyston Convex Stra Plif - [id number] Implanted:Qty: 1 on 12/06/2016 by Gurinder Mc MD at [facility] Spine M[employer]a [employer] 07/26/2026 [id number] # / / [id number] Matrix 3cc Ralls Dbf Putty Dbm Implanted:Qty: 1 on 12/06/2016 by Gurinder Mc MD at [facility] Explanted:at [facility] (Quantity not on file) Spine Medtronic Spine/Ortho 09/08/2018 [id number]# / [id number] / Screw Lmbr Post 5.5x40mm Vitality Va - [id number] Implanted:Qty: 1 on 12/06/2016 by Gurinder Mc MD at [facility] Spine [employer] Spine [id number]. 032# / / Screw Lmbr Post 5.5x45mm Vitality Va - [id number] Implanted:Qty: 2 on 12/06/2016 by Gurinder Mc MD at [facility] Spine [employer] Spine [id number]. 033# / / Set Screw Lmbr 5.5-6mm Vitality Shear Off - [id number] Implanted:Qty: 4 on 12/06/2016 by Gurinder Mc MD at [facility] Spine [employer] Spine [id number]. [id number]# / / Avni Lmbr 40x5.5mm Vitality Cvd Titnm - [id number] Implanted:Qty: 2 on 12/06/2016 by Gurinder Mc MD at [facility] Spine [employer] Spine [id number]. [id number]# / / Spacer Lmbr [id number] Zyston Convex Stra Plif - [id number] Implanted:Qty: 1 on 12/06/2016 by Gurinder Mc MD at [facility] Spine [employer] [id number] # / / Screw Lmbr Post 6.5x40mm Vitality Va - [id number] Implanted:Qty: 1 on 12/06/2016 by Gurinder Mc MD at [facility] Spine [employer] Spine 07.27626. 074# / / .[id number] Double Ended K-Wire Implanted:Qty: 2 on 12/03/2018 by Rex Fink DPM at [facility] Right: Foot N/A / / Interstim Basic Evaluation Lead Implanted:Qty: 1 on 09/28/2022 by Michelle Colmenares DO at [facility] Medtronic 01/26/2024 [id number] / / [id number] Interstim Basic Evaluation Kit Implanted:Qty: 1 on 09/28/2022 by Michelle Colmenares DO at [facility] Medtronic 08/27/2023 [id number] / / [id number] Sys Interstim X Surescan Mri Lead And Smart Java Developer Consultant - [id number] Implanted:Qty: 1 on 10/18/2022 by Michelle Colmenares DO at [facility] Right: Buttock Medtronic Pain Therapy 02/07/2024 [id number] / [id number] / Lead Kit 4.32mm Spacing 28cm Length Interstim - [id number] Implanted:Qty: 1 on 10/18/2022 by Michelle Colmenares DO at [facility] Right: Buttock Medtronic Pain Therapy 01/17/2024 [id number] / / [id number] Neuro Tyrx Absorb Antibacterial - [id number] Implanted:Qty: 1 on 10/18/2022 by Michelle Colmenares DO at [facility] Right: Buttock Medtronic 03/20/2023 [id number] / / [id number] Spacer Lmbr [id number] Zyston Convex Stra Tlif - [id number] Implanted:Qty: 1 on 05/03/2023 by Gurinder Mc MD at [facility] N/A: Spine [employer] 09/13/2026 [id number] / / [id number] Avni Lmbr 95x5.5mm Vitality Cvd Titnm - [id number] Implanted:Qty: 1 on 05/03/2023 by Gurinder Mc MD at [facility] N/A: Spine [employer] Spine 07.90513. 016 / / Avni Lmbr 90x5.5mm Vitality Cvd Titnm - [id number] Implanted:Qty: 1 on 05/03/2023 by Gurinder Mc MD at [facility] N/A: Spine [employer] Spine 07.14198. 015 / / Set Screw Lmbr 5.5-6mm Vitality Torque - [id number] Implanted:Qty: 8 on 05/03/2023 by Gurinder Mc MD at [facility] N/A: Spine [employer] Spine 07.69153. 001 / / Screw Spinal 4.5x45mm Poly Tl Implanted:Qty: 1 on 05/03/2023 by Gurinder Mc MD at [facility] N/A: Spine [id number] / / Description:SCREW SPINAL 4.5 X45MM POLY TL Screw Spinal 5.5x45mm Poly Tl Implanted:Qty: 3 on 05/03/2023 by Gurinder Mc MD at [facility] N/A: Spine [id number] / / Description:SCREW SPINAL 5.5 X45MM POLY TL Bone 1-4mm 60cc Medtronic Fine Canclls Freeze Dried - [id number] Implanted:Qty: 1 on 05/03/2023 by Gurinder Mc MD at [facility] N/A: Spine Medtronic Spine/Ortho 09/21/2026 [id number] / [id number] / Bone Matrix 6cc Emelina Dbf Putty Dbm - [id number] Implanted:Qty: 1 on 05/03/2023 by Gurinder Mc MD at [facility] N/A: Spine Medtronic Spine/Ortho 04/11/2025 [id number] / [id number] / Procedures Procedure Name Priority Date/Time Associated Diagnosis Comments HEMOGLOBIN Early AM 05/05/2023 8:55 AM COUNTER SALES REPRESENTATIVE CREATININE Early AM 05/05/2023 8:55 AM COUNTER SALES REPRESENTATIVE POTASSIUM Early AM 05/05/2023 8:55 AM COUNTER SALES REPRESENTATIVE SODIUM Early AM 05/05/2023 8:55 AM COUNTER SALES REPRESENTATIVE GLUCOSE METER Timed 05/05/2023 7:26 AM COUNTER SALES REPRESENTATIVE SODIUM Timed 05/05/2023 2:25 AM COUNTER SALES REPRESENTATIVE GLUCOSE METER Timed 05/04/2023 10:10 PM COUNTER SALES REPRESENTATIVE XR SPINE LUMBAR 2 VIEWS Routine 05/04/2023 8:37 PM COUNTER SALES REPRESENTATIVE OSMOLALITY,URINE Today 05/04/2023 6:25 PM COUNTER SALES REPRESENTATIVE SODIUM,RANDOM URINE Today 05/04/2023 6 :25 PM COUNTER SALES REPRESENTATIVE GLUCOSE METER Timed 05/04/2023 4:40 PM COUNTER SALES REPRESENTATIVE SODIUM Today 05/04/2023 3:32 PM COUNTER SALES REPRESENTATIVE GLUCOSE METER Timed 05/04/2023 12:01 PM COUNTER SALES REPRESENTATIVE HEMOGLOBIN Early AM 05/04/2023 10:44 AM COUNTER SALES REPRESENTATIVE POTASSIUM Early AM 05/04/2023 10:44 AM COUNTER SALES REPRESENTATIVE CREATININE Early AM 05/04/2023 10:44 AM COUNTER SALES REPRESENTATIVE SODIUM Early AM 05/04/2023 10:44 AM COUNTER SALES REPRESENTATIVE GLUCOSE METER Timed 05/04/2023 8:26 AM COUNTER SALES REPRESENTATIVE GLUCOSE METER Timed 05/04/2023 1:40 AM COUNTER SALES REPRESENTATIVE GLUCOSE METER Timed 05/03/2023 9:03 PM COUNTER SALES REPRESENTATIVE GLUCOSE METER Timed 05/03/2023 5:06 PM COUNTER SALES REPRESENTATIVE ARTERIAL LINE Routine 05/03/2023 3:23 PM COUNTER SALES REPRESENTATIVE ARTERIAL LINE Routine 05/03/2023 3:23 PM COUNTER SALES REPRESENTATIVE ARTERIAL LINE Routine 05/03/2023 3:23 PM COUNTER SALES REPRESENTATIVE ARTERIAL LINE Routine 05/03/2023 3:23 PM COUNTER SALES REPRESENTATIVE ARTERIAL LINE Routine 05/03/2023 3:23 PM COUNTER SALES REPRESENTATIVE XR C-ARM GREATER 1 HR Routine 05/03/2023 1:41 PM COUNTER SALES REPRESENTATIVE XR SPINE LUMBAR 2 VIEWS PORTABLE Routine 05/03/2023 1:39 PM COUNTER SALES REPRESENTATIVE GLUCOSE METER Timed 05/03/2023 1:15 PM COUNTER SALES REPRESENTATIVE GLUCOSE METER Timed 05/03/2023 11:55 AM COUNTER SALES REPRESENTATIVE XR SPINE 1 VIEW PORTABLE Routine 05/03/2023 11:47 AM COUNTER SALES REPRESENTATIVE ENDOTRACHEAL TUBE Routine 05/03/2023 11:36 AM COUNTER SALES REPRESENTATIVE ENDOTRACHEAL TUBE Routine 05/03/2023 11:36 AM COUNTER SALES REPRESENTATIVE ENDOTRACHEAL TUBE Routine 05/03/2023 11:36 AM COUNTER SALES REPRESENTATIVE FUSION TRANSFORAMINAL SPINAL INTERBODY LEVEL 2 Elective 05/03/2023 10:22 AM COUNTER SALES REPRESENTATIVE 1) Stenosis, Lumbar - w/Neurogenic Claudication M48.062 2) Degenerative Scoliosis, Lumbar M41.56 Case Notes C_Arm Cell Saver Sanchez-Combo *BMP OK*VitalityMR Special Needs WT 154 TYPE & SCREEN SHELBI 05/03/2023 9:02 AM COUNTER SALES REPRESENTATIVE GLUCOSE METER Timed 05/03/2023 8:00 AM COUNTER SALES REPRESENTATIVE SCAN-CARDIAC STRIP 05/03/2023 12:00 AM COUNTER SALES REPRESENTATIVE SCAN-OPERATIVE/PROCED URE REPORT 05/03/2023 12:00 AM COUNTER SALES REPRESENTATIVE from Last 3 Months Results * (ABNORMAL) Hemoglobin AM (05/05/2023 8:55 AM COUNTER SALES REPRESENTATIVE) Only the most recent of2 resultswithin the time period is included. HEMOGLOBIN 10.2(L) 12.0 - 16.0 g/dL 05/05/2023 9:17 AM COUNTER SALES REPRESENTATIVE [facility] MCV 93 80 - 100 fL 05/05/2023 9:17 AM COUNTER SALES REPRESENTATIVE [facility] Blood BLOOD SPECIMEN / Unknown Butterfly / Unknown 05/05/2023 8:55 AM COUNTER SALES REPRESENTATIVE 05/05/2023 9:02 AM COUNTER SALES REPRESENTATIVE Martha Molina MD HEMATOLOGY Performing Organization Address City/[facility]/ZIP Co de Phone Number [facility] [address] [place] [address], * (ABNORMAL) SODIUM (05/05/2023 8:55 AM COUNTER SALES REPRESENTATIVE) Only the most recent of4 resultswithin the time period is included. SODIUM 132(L) 136 - 145 mmol/L 05/05/2023 9:32 AM COUNTER SALES REPRESENTATIVE [facility] Blood BLOOD SPECIMEN / Unknown Butterfly / Unknown 05/05/2023 8:55 AM COUNTER SALES REPRESENTATIVE 05/05/2023 9:02 AM COUNTER SALES REPRESENTATIVE Martha Molina MD CHEMISTRY Performing Organization Address City/[facility]/ZIP Co de Phone Number [facility] [address] [place] [address], [place] * POTASSIUM (05/05/2023 8:55 AM COUNTER SALES REPRESENTATIVE) Only the most recent of2 resultswithin the time period is included. POTASSIUM 3.9 3.5 - 5.1 mmol/L 05/05/2023 9:32 AM COUNTER SALES REPRESENTATIVE [facility] Blood BLOOD SPECIMEN / Unknown Butterfly / Unknown 05/05/2023 8:55 AM COUNTER SALES REPRESENTATIVE 05/05/2023 9:02 AM COUNTER SALES REPRESENTATIVE Martha Molina MD CHEMISTRY Performing Organization Address City/[facility] Co de Phone Number [facility] [address] [place] [id number], [place] * CREATININE (05/05/2023 8:55 AM COUNTER SALES REPRESENTATIVE) Only the most recent of2 resultswithin the time period is included. eGFR >90 >90 mL/min/1.7 3m2 05/05/2023 9:32 AM COUNTER SALES REPRESENTATIVE [facility] Comment:As of 2021, eG FR is calculated by the CKD-EPI creatinine equation without race adjustment. ??eGFR can be influenced by muscle mass, exercise, and diet. ??The reported eGFR is an estimation only and is only applicable if the renal function is stable. CREATININE 0.59 0.50 - 0.90 mg/dL 05/05/2023 9:32 AM COUNTER SALES REPRESENTATIVE [facility] Blood BLOOD SPECIMEN / Unknown Butterfly / Unknown 05/05/2023 8:55 AM COUNTER SALES REPRESENTATIVE 05/05/2023 9:02 AM COUNTER SALES REPRESENTATIVE Martha Molina MD CHEMISTRY Performing Organization Address [facility] Co de Phone Number [facility] [address] [place] [id number], [place] * (ABNORMAL) GLUCOSE METER (05/05/2023 7:26 AM COUNTER SALES REPRESENTATIVE) Only the most recent of11 resultswithin the time period is included. GLUCOSE METER 197(H) 65 - 100 mg/dL 05/05/2023 7:35 AM COUNTER SALES REPRESENTATIVE [facility] Blood BLOOD SPECIMEN / Unknown 05/05/2023 7:26 AM COUNTER SALES REPRESENTATIVE 05/05/2023 7:35 AM COUNTER SALES REPRESENTATIVE Gurinder Mc MD CHEMISTRY [facility] [address] [place] [address], * XR SPINE LUMBAR 2 VIEWS (05/04/2023 8:37 PM COUNTER SALES REPRESENTATIVE) Anatomical Region Laterality Modality LUMBAR SPINE Digital Radiogra phy 05/05/2023 7:26 AM COUNTER SALES REPRESENTATIVE Impressions 05/05/2023 7:26 AM COUNTER SALES REPRESENTATIVE Pedicle avni and screw fixation L1 through L4. Laminectomy. No hardware complication. Atherosclerosis. Sacral nerve stimulator lead. Moderate volume of formed stool. Nonobstructive bowel gas pattern. Dictated by Corona Greene MD @ May 05 2023 ??7:26AM (Electronically Signed) ?? Narrative 05/05/2023 7:26 AM COUNTER SALES REPRESENTATIVE For Patients: ??As a result of the Cures Act, medical imaging exams and procedure reports are released immediately into your electronic medical record. ??You may view this report before your referring provider. ??If you have questions, please contact your health care provider. INDICATION: Postop follow-up. COMPARISON: Interoperative views 03 May 2023. Procedure Note Corona Greene MD - 05/05/2023 For Patients: As a result of the Cures Act, medical imagingexams and procedure reports are released immediately into your electronicmedical record. You may view this report before your referring provider.If you have questions, please contact your health care provider. INDICATION: Postop follow-up. COMPARISON: Interoperative views 03 May 2023. IMPRESSION: Pedicle avni and screw fixation L1 through L4. Laminectomy. No hardwarecomplication. Atherosclerosis. Sacral nerve stimulator lead. Moderatevolume of formed stool. Nonobstructive bowel gas pattern. Dictated by Corona Greene MD @ May 05 2023 7:26AM (Electronically Signed) [facility] * SODIUM,RANDOM URINE (05/04/2023 6:25 PM COUNTER SALES REPRESENTATIVE) SODIUM,RANDOM URINE <20 mmol/L 05/04/2023 9:33 PM COUNTER SALES REPRESENTATIVE [facility] Comment:No Reference Range D efined. Urine URINE SPECIMEN / Unknown Non-Blood / Unknown 05/04/2023 6:25 PM COUNTER SALES REPRESENTATIVE 05/04/2023 6:47 PM COUNTER SALES REPRESENTATIVE Martha Molina MD URINE Performing Organization Address City/[facility]/ZIP Co de Phone Number [facility] [address] [place] [address], [place] * Osmolality, urine TODAY (05/04/2023 6:25 PM COUNTER SALES REPRESENTATIVE) OSMOLALITY,URI NE 214 50 - 1,400 mOsmol/kg 05/04/2023 7:08 PM COUNTER SALES REPRESENTATIVE [facility] Urine URINE SPECIMEN / Unknown Non-Blood / Unknown 05/04/2023 6:25 PM COUNTER SALES REPRESENTATIVE 05/04/2023 6:47 PM COUNTER SALES REPRESENTATIVE Martha Molina MD URINE Performing Organization Address [facility] Co de Phone Number [facility] [address] [place] [address], [place] * HCHG TUBING PR1, HCHG TUBING PR20, HCHG DRSG PR1, HCHG DRSG PR5, HCHG KIT PR5 (05/03/2023 3:23 PM COUNTER SALES REPRESENTATIVE) Narrative Elena Tong MD - 05/03/2023 3:23 PM COUNTER SALES REPRESENTATIVE Elena Tong MD ? 05/03/2023 ??3:23 PM Arterial Line Patient location during procedure: OR Start time: 05/03/2023 11:05 AM End time: 05/03/2023 11:10 AM Indications: lab sampling and monitoring Staffing Preanesthetic Checklist Completed: patient identified, risks and benefits discussed, consent obtained and timeout performed Arterial Line Patient position: supine. ??Comment:. Laterality: left Site: radial Local Anesthetic: lidocaine 1%. Securement/dressing: Biopatch applied, dressing applied. ??Comment: Supplemental O2: supplemental oxygen. ??Comment:. Vessel Buttermaker Helper Additional supplies used to locate vessel: no Needle Catheter size: 20 G. ??Comment:. Catheter length: other. ??Comment: Events: no complications. Elena Tong MD ANESTHESIA PX NOTE ORDERABLES * XR C-ARM GREATER 1 HR (05/03/2023 1:41 PM COUNTER SALES REPRESENTATIVE) Anatomical Region Laterality Modality Other Narrative 05/03/2023 12:11 PM COUNTER SALES REPRESENTATIVE 51 seconds fluoroscopy time was provided. ??See operative/procedure report for further information. Gurinder Mc MD FLUOROSCOPY * XR SPINE LUMBAR 2 VIEWS PORTABLE (05/03/2023 1:39 PM COUNTER SALES REPRESENTATIVE) Anatomical Region Laterality Modality Spine, LUMBAR SPINE Digital Radi ography 05/03/2023 2:40 PM COUNTER SALES REPRESENTATIVE Impressions 05/03/2023 2:40 PM COUNTER SALES REPRESENTATIVE Posterior fusion lumbar spine, exact levels cannot be determined. Dictated by David Olson MD @ Apr ??2022 ??2:40PM (Electronically Signed) ?? Narrative 05/03/2023 2:40 PM COUNTER SALES REPRESENTATIVE For Patients: ??As a result of the Cures Act, medical imaging exams and procedure reports are released immediately into your electronic medical record. ??You may view this report before your referring provider. ??If you have questions, please contact your health care provider. Indication: Spinal fusion Technique: Lumbar spine 2 view. Fluoroscopic time 51.7 seconds. Procedure Note David Olson MD - 05/03/2023 For Patients: As a result of the Cures Act, medical imagingexams and procedure reports are released immediately into your electronicmedical record. You may view this report before your referring provider.If you have questions, please contact your health care provider. Indication: Spinal fusion Technique: Lumbar spine 2 view. Fluoroscopic time 51.7 seconds. IMPRESSION: Posterior fusion lumbar spine, exact levels cannot be determined. Dictated by David Olson MD @ May 03 2023 2:40PM (Electronically Signed) Gurinder Mc MD GENERAL IMAGING * XR SPINE 1 VIEW PORTABLE (05/03/2023 11:47 AM COUNTER SALES REPRESENTATIVE) Anatomical Region Laterality Modality Spine, CERVICAL SPINE, THORACIC SPINE, LUMBAR SP INE Digital Radiography 05/03/2023 2:38 PM COUNTER SALES REPRESENTATIVE Impressions 05/03/2023 2:38 PM COUNTER SALES REPRESENTATIVE Posterior and interbody fusion at L3-4. Dictated by David Olson MD @ Apr ??2022 ??2:38PM (Electronically Signed) ?? Narrative 05/03/2023 2:38 PM COUNTER SALES REPRESENTATIVE For Patients: ??As a result of the Cures Act, medical imaging exams and procedure reports are released immediately into your electronic medical record. ??You may view this report before your referring provider. ??If you have questions, please contact your health care provider. Indication: Spinal fusion Technique: Lumbar spine 1 view Procedure Note David Olson MD - 05/03/2023 For Patients: As a result of the Cures Act, medical imagingexams and procedure reports are released immediately into your electronicmedical record. You may view this report before your referring provider.If you have questions, please contact your health care provider. Indication: Spinal fusion Technique: Lumbar spine 1 view IMPRESSION: Posterior and interbody fusion at L3-4. Dictated by David Olson MD @ May 03 2023 2:38PM (Electronically Signed) Gurinder Mc MD GENERAL IMAGING * HCHG TUBE PR1, HCHG INSTRUMENT DISP PR10, HCHG STYLET PR1 (05/03/2023 11:36 AM COUNTER SALES REPRESENTATIVE) Narrative Dea Houser CRNA - 05/03/2023 11:36 AM COUNTER SALES REPRESENTATIVE Dea Houser CRNA ? 05/03/2023 11:39 AM Procedure: ETT Patient location during procedure: OR ETT Properties Mask Ventilation: easy Final Technique: video laryngoscopy Type: straight Location: oral Cuffed: yes Tube Size: 7.0 mm Stylet: yes Laryngoscope Blade: Glidescope Blade Size: 3 Cormack-Lehane Grade View: 1 Insertion Attempts: 1 Placement Verification: end tidal CO2 and symmetrical chest wall movement Assessment: pharynx clear, atraumatic and dentition unchanged Secured at: 22 Measured From: lips Bite Block: soft Difficulty: 0 (not difficult) Difficulty Comment: anterior glottis, small mouth and limited neck mobility Elena Tong MD ANESTHESIA PX NOTE ORDERABLES * TYPE & SCREEN (05/03/2023 9:02 AM COUNTER SALES REPRESENTATIVE) ABORH A Rh Positive 05/03/2023 9:52 AM COUNTER SALES REPRESENTATIVE [facility] ANTIBODY SCREEN Negative Negative 05/03/2023 9:52 AM COUNTER SALES REPRESENTATIVE [facility] SPECIMEN EXPIRATION DATE/TIME 05/06/23 23:59 05/03/2023 9:52 AM COUNTER SALES REPRESENTATIVE [facility] Blood BLOOD SPECIMEN / Unknown Venipuncture / Unknown 05/03/2023 9:02 AM COUNTER SALES REPRESENTATIVE 05/03/2023 9:09 AM COUNTER SALES REPRESENTATIVE Elena Tong MD BLOOD BANK [facility] [address] [place] [address], * SCAN-CARDIAC STRIP (05/03/2023 12:00 AM COUNTER SALES REPRESENTATIVE) Narrative 05/03/2023 12:00 AM COUNTER SALES REPRESENTATIVE Ordered by an unspecified provider. Other Clinical Staff OTHER * SCAN-OPERATIVE/PROCEDURE REPORT (05/03/2023 12:00 AM COUNTER SALES REPRESENTATIVE) Narrative 05/03/2023 12:00 AM COUNTER SALES REPRESENTATIVE Ordered by an unspecified provider. Other Clinical Staff OTHER from Last 3 Months Advance Directives Documents on File Type Date Recorded Patient Fixture Maker Expl anation Healthcare Directive 12/31/2015 7:52 AM 4/3 Latest Code Status on File Code Status Date Activated Date Inactivated Comments Full Code 05/03/2023 6:20 PM 05/05/2023 5:40 PM Question Answer Comments Code Status Discussion: Unable to Assess Preferences, Provider to review later Code Status History Code Status Date Activated Date Inactivated Comments Full Code 12/22/2022 6:17 AM 12/22/2022 2:05 PM Question Answer Comments Code Status Discussion: Reviewed Preferences Full Code 10/18/2022 9:52 AM 10/18/2022 4:52 PM Question Answer Comments Code Status Discussion: Reviewed Preferences Full Code 09/28/2022 8:28 AM 09/28/2022 2:34 PM Question Answer Comments Code Status Discussion: Unable to Assess Preferences, Provider to review later Full Code 12/03/2018 9:45 AM 12/03/2018 4:22 PM Question Answer Comments Code Status Discussion: Discussed Care Teams Antique Jewelry Repairer Relationship Specialty Start Date End Date Lina Meléndez MD [address] [place] [address] PCP - General Internal Medicine 11/01/21
--- OUTSIDE RECORDS SUMMARY | 2023-07-25 14:46 | XMS_ITS | Referral Summary ---
Author Name Unknown Organization [facility] Address [address] [place] [address] Care Team Providers Care Directional Driller Name Role Phone Lina Meléndez MD Primary Care Provider [place] Unavailable Allergies Active Allergy Reactions Criticality Noted Date Comments Codeine Unknown 01/03/2007 Medications Medication Sig Dispensed Refills Start Date End Date Status insulin glargine (LANTUS VIAL) 100 UNIT/ML vial Inject 13 Units Subcutaneous 0 11/05/2018 Active HUMALOG KWIKPEN 100 UNIT/ML soln Inject 1 units/carb unit Subcutaneous 3 times daily (before meals) Take 1 unit per carb choice (15gm) Take up to 6 units per meal, and 1 unit per snack. 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: Created by Conversion Hyperlipidemia Overview: Created by Conversion Depression Overview: Created by Conversion Migraine Headache Overview: Created by Conversion Replacement Utility updated for latest IMO load Myopia Overview: Created by Conversion Hypertension Overview: Created by Conversion Replacement Utility updated for latest IMO load Asthma Overview: Created by Conversion Esophageal Reflux Overview: Created by Conversion Urticaria Overview: Created by Conversion Osteoarthritis Overview: Created by Conversion [facility] Annotation: Dec 29 2006 3:46PM - Jojo Faustin: DJD Replacement Utility updated for latest IMO load Lower Back Pain Overview: Created by Conversion [facility] Annotation: Dec 29 2006 3:46PM - Jojo Faustin: MRI: small L5-S1 disc, degenerative changes, narrowing of bilateral neuroforamina L5-S1 and mass effect on both L5 nerves Stress Incontinence Overview: Created by Conversion Immunizations Name Administration Dates Next Due DT (PEDS <7y) 01/22/2002 HepA, Unspecified 01/25/2002 Td,adult,historic,unspecified 01/22/2002 Zoster vaccine, live 03/11/2009 Social History Tobacco Use Types Packs/Day Years Used Date Smoking Tobacco: Never Assessed Adolescent Education Answer Date Record ed Getting School Help Needed Not on file 04/12 Sex and Gender Information Value Date Recorded Sex Assigned at Female 02/24/2020 11:40 AM CDT Gender Identity Female 02/24/2020 11:40 AM CDT Sexual Orientation Not on file Plan of Treatment Upcoming Encounters Date Type Department Care Team (Latest Contact Info) Description 08/04/2023 7:30 AM BUSINESS INTELLIGENCE ARCHITECT Hospital Encounter [facility] [address] [place] [address] Tisha Guerra MD COLO & RECTAL SURGERY [address] [address] 08/04/2023 7:30 AM BUSINESS INTELLIGENCE ARCHITECT - 08/04/2023 9:10 AM BUSINESS INTELLIGENCE ARCHITECT Surgery [facility] [address] [address] Tisha Guerra MD COLO & RECTAL SURGERY [address] [place] [address] INTAROPERATIVE Colonoscopy Scheduled Procedures Name Priority Associated Diagnoses Date/Ti me COLONOSCOPY Prolapsed internal hemorrhoids, grade 3 Screen for colon cancer 08/04/2023 7:30 AM BUSINESS INTELLIGENCE ARCHITECT HEMORRHOIDECTOMY, INTERNAL Prolapsed internal hemorrhoids, grade 3 Screen for colon cancer 08/04/2023 7:30 AM BUSINESS INTELLIGENCE ARCHITECT Goals Goal Patient Goal Type Associated Problems Recent Progress Patient-Stated? Author MYC ECC SURG ENROLL Care Plan MyC ECC SURG ENROLL No Marisel Berman RN Additional Health Concerns Problem Noted Date Diagnosed Date MyC ECC SURG ENROLL 07/11/2023 Care Teams Directional Driller Relationship Specialty Start Date End Date Lina Meléndez MD [facility] [address] [place], [place] [address] PCP - General Internal Medicine 12/26/14 Rhoda Sarabia I [address] [facility] [address] [place], [place] [address] Fish Butcher Dietitian, Registered 02/20/20
--- OUTSIDE RECORDS SUMMARY | 2023-07-25 14:46 | XMS_ITS | Clinical Summary ---
Author Name Unknown Organization [facility] Address [address] [place] [address] Care Team Providers Care Second Watch Sergeant Name Role Phone Lina Meléndez MD Primary Care Provider [phone] Source Comments You are receiving this document as you are listed as the primary care provider,follow-up provider, or the patient has been referred to you for consultation.This is in compliance with the Medicare and[facility] EHR Incentive Program,which states Providers who transition their patient to another setting of careor provider of care or refers their patient to another provider of care shouldprovide summary care record for each transition of care or referral. [facility] Allergies Active Allergy Reactions Criticality Noted Date Comments Adhesive 07/16/2019 Codeine 02/02/2004 PN: LW Reaction: Nausea Gluten Meal Gastrointestinal 05/21/2016 Including wheat Other 02/03/2004 Melon, tree nuts, pollen, maple flavor, carrot oil LW Other2: -NKA Sodium Metabisulfite Rash 12/05/2016 Sulfa Antibiotics High 02/02/2004 anaphalaxis Medications Medication Sig Dispensed Refills Start Date End Date Status insulin glargine (AKA LANTUS) 100 UNIT/ML injection Inject 18 Units subcutaneously nightly. LW Comment:info per pt, Dr.Tom Dye 0 05/02/2007 Active insulin lispro (AKA HUMALOG) 100 UNIT/ML injection vial Inject subcutaneously 4 times daily (sliding scale). Indications: DIABETES MELLITUS 0 06/22/2011 Active atorvastatin (LIPITOR) 10 MG tabletIndications :Hyperlipidemia Take 10 mg by mouth daily. Indications: High Amount of Fats in the Blood 0 05/23/2016 Active fluticasone (FLONASE) 50 MCG/ACT nasal solutionIndicatio ns:Nasal Signs and Symptoms Place 2 Sprays into both nostrils two times a day. Indications: Signs and Symptoms of Nose Diseases 0 Active clopidogrel (PLAVIX) 75 MG tabletIndications :stroke Take 75 mg by mouth daily. Indications: stroke 0 05/23/2016 Active magnesium oxide (MAG-OX) 400 MG tabletIndications :Hypomagnesemia Take 800 mg by mouth two times a day. Indications: Disorder with Low Magnesium Levels 0 03/05/2016 Active cloNIDine (CATAPRES) 0.3 MG tabletIndications :Hypertension Take 0.3 mg by mouth three times a day. Indications: High Blood Pressure Disorder 0 Active valACYclovir (VALTREX) 500 MG tablet Take 500 mg by mouth two times a day. 0 Active ondansetron (ZOFRAN) 4 MG tablet Take 2 Tablets by mouth every 8 hours as needed. 30 Tablet 0 07/10/2019 Active senna (SENOKOT) 8.6 MG tabletIndications :Constipation Take 1 Tablet by mouth two times a day. Take while on narcotics. Hold for loose stools. Indications: Constipation 30 Tablet 0 07/16/2019 Active Additional Information Patient not taking.Reported on 08/26/2019 acetaminophen (TYLENOL) 500 MG tabletIndications :Pain Take 2 Tablets by mouth three times a day. 24 hour limit of acetaminophen (TYLENOL) is 4000mg. Indications: Pain 100 Tablet 0 07/16/2019 Active zolpidem (AMBIEN) 5 MG tabletIndications :Insomnia Take 5 mg by mouth at bedtime as needed for Sleep. Indications: Trouble Sleeping 0 Active HYDROmorphone (DILAUDID) 2 MG tablet Take 1-2 Tablets by mouth every 4 hours as needed for Pain. Take one tab for pain rating 4-7, take two tabs for pain rating 8-10. 30 Tablet 0 07/17/2019 Active Additional Information Patient not taking.Reported on 08/26/2019 Active Problems Problem Noted Date Diagnosed Date Closed fracture of left proximal humerus 020 Overview: Added automatically from request for surgery [id number] TC (obstructive sleep apnea) 11/05/2018 Arthritis of carpometacarpal (CMC) joint of parrish t thumb 10/16/2017 Overview: September 2017: cortisone injection right CMC joint, 75 % improvement at 2 weeks. Jul 2018: Bilateral CMC Joint thumb injections by Dr. 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: LW Onset: 2004 ; Polyp Colon Adenomatous Type 2 diabetes mellitus wit hout complication, with long-term current use of insulin 03/23/2007 Overview: DM Type2 Backache 03/23/2007 Major depressive disorder, recurrent episode Osteoarthrosis, unspecified whether generalized or localized, unspecified site 11/30/2002 Overview: DJD Social History Tobacco Use Types Packs/Day Years Used Date Smoking Tobacco: Never Smokeless Tobacco: Never Tobacco Cessation:Counseling Given: No Alcohol Use Standard Drinks/Week Comments Yes 0 (1 standard drink = 0.6 oz pur e alcohol) Sex and Gender Information Value Date Recorded Sex Assigned at Not on file Gender Identity Not on file Sexual Orientation Not on file Last Filed Vital Signs Vital Sign Reading Time Taken Comments Blood Pressure 147/63 07/17/2019 2:34 PM EMISSIONS TECHNICIAN Pulse 75 07/17/2019 2:34 PM EMISSIONS TECHNICIAN Temperature 36.7 ??C (98.1 ??F) 07/17/2019 2:34 PM CS T Respiratory Rate 18 07/17/2019 2:34 PM EMISSIONS TECHNICIAN Oxygen Saturation 99% 07/17/2019 2:34 PM EMISSIONS TECHNICIAN Inhaled Oxygen Concentration - - Weight 75 kg (165 lb 6.4 oz) 07/16/2019 10:19 AM EMISSIONS TECHNICIAN Height 165.1 cm (5' 5) 07/16/2019 10:19 AM EMISSIONS TECHNICIAN Body Mass Index 27.52 07/16/2019 10:19 AM EMISSIONS TECHNICIAN Plan of Treatment Health Maintenance Due Date Last Done Comments Diabetes: Eye Exam 1945 Diabetes: Foot Exam 1945 Diabetes: Lipid Panel 1945 Diabetes: Urine Microalbumin 1945 Hep C Screening (Preventive Services) 1945 COVID-19 Vaccine (#1) 02/17/1946 Dexa 2012 Mammogram 10/11/2013 10/11/2012 Diabetes: HGBA1C 10/16/2019 07/17/2019, 05/21/2016 Diabetes: Creatinine 07/17/2020 07/17/2019, 05/05/2007, 02/04/2004 Influenza (#1) 2023 03/31/2020, 06/2018, 03/31/2017, Additional history exists Medicare Annual Wellness Visit 06/26/2023 Colonoscopy 08/30/2023 08/29/2013 DTaP/Tdap/Td (4 - Tdap) 08/22/2024 08/22/19 15, 01/22/2002, 01/22/2002 HepA Aged Out 01/25/2002 No longer eligi ble based on patient's age to complete this topic Pneumococcal 65+ Yrs Completed 06/07/2018, 08/22/2014, 06/10/2010 Zoster/Shingles Completed 10/10/2018, 05/26, 03/11/2009 HepB Aged Out No longer eligi ble based on patient's age to complete this topic Hib Aged Out No longer eligi ble based on patient's age to complete this topic IPV (Polio) Aged Out No longer eligi ble based on patient's age to complete this topic MCV4 Aged Out No longer eligi ble based on patient's age to complete this topic Medical Devices Implanted Type Area Air Quality Technician Device Identifier Shelf Expiration Date Model / Serial / Lot Chip Canc Myesha 30cc - [id number] Implanted:Qty : 1 on 07/16/2019 by Edelmira Rodriguez MD at [facility] DEVICE Left: SHOULDER [employer]onic - [employer] 08/14/2023 [id number] / / [id number] Scr Star Lk Sftp 3.5x48 - [id number] Implanted:Qty : 1 on 07/16/2019 by Edelmira Rodriguez MD at [facility] DEVICE Left: HUMERUS MIDSHAFT DePuy Synthes - Trauma 212.120 / / Scr Cj Sftp Ss 3.5x32 F-Thrd - [id number] Implanted:Qty : 1 on 07/16/2019 by Edelmira Rodriguez MD at [facility] DEVICE Left: HUMERUS MIDSHAFT [employer] - Trauma 204.832 / / [id number] Plt Prox Hum 3.5x90 6h/3h - [id number] Implanted:Qty : 1 on 07/16/2019 by Edelmira Rodriguez MD at [facility] DEVICE Left: SHOULDER [employer]s - Trauma 241.901 / / [id number] Scr Cj Sftp Ss 3.5x26 F-Thrd - [id number] Implanted:Qty : 1 on 07/16/2019 by Edelmira Rodriguez MD at [facility] DEVICE Left: HUMERUS MIDSHAFT [employer] - Trauma 204.826 / / Description:3.5mm 26mm Scr Cj Sftp Ss 3.5x28 F-Thrd - [id number] Implanted:Qty : 1 on 07/16/2019 by Edelmira Rodriguez MD at [facility] DEVICE Left: HUMERUS MIDSHAFT [employer] - Trauma 204.828 / / Scr Star Lk Sftp 3.5x34 - [id number] Implanted:Qty : 1 on 07/16/2019 by Edelmira Rodriguez MD at [facility] DEVICE Left: HUMERUS MIDSHAFT [employer] - Trauma 212.113 / / Scr Star Lk Sftp 3.5x36 - [id number] Implanted:Qty : 2 on 07/16/2019 by Edelmira Rodriguez MD at [facility] DEVICE Left: HUMERUS MIDSHAFT [employer] - Trauma 212.115 / / Scr Star Lk Sftp 3.5x40 - [id number] Implanted:Qty : 2 on 07/16/2019 by Edelmira Rodriguez MD at [facility] DEVICE Left: HUMERUS MIDSHAFT [employer] - Trauma 212.117 / / Scr Star Lk Sftp 3.5x45 - [id number] Implanted:Qty : 1 on 07/16/2019 by Edelmira Rodriguez MD at [facility] DEVICE Left: HUMERUS MIDSHAFT [employer] - Trauma 212.119 / / Scr Star Lk Sftp 3.5x46 - [id number] Implanted:Qty : 1 on 07/16/2019 by Edelmira Rodriguez MD at [facility] DEVICE Left: HUMERUS MIDSHAFT [employer] - Trauma 212.136 / / Advance Directives Latest Code Status on File Code Status Date Activated Date Inactivated Comments Full Code 07/16/2019 4:18 PM 07/17/2019 5:47 PM Care Teams Second Watch Sergeant Relationship Specialty Start Date End Date Lina Meléndez MD [address] [place] [address] PCP - General Internal Medicine 12/20/18
--- OUTSIDE RECORDS SUMMARY | 2023-07-25 14:46 | XMS_ITS | Clinical Summary ---
Author Name Unknown Organization [facility] Address [address] [place] [address] Care Team Providers Care Rail Splitter Name Role Phone Lina Meléndez MD Primary Care Provider [place] Unavailable Allergies Active Allergy Reactions Criticality [...] by Conversion Osteoarthritis Overview: Created by Conversion [facility] Annotation: Dec 29 2006 3:46PM - Jojo Faustin: DJD Replacement Utility updated for latest IMO load Lower Back Pain Overview: Created by Conversion [facility] Annotation: Dec 29 2006 3:46PM - [...] (Latest Contact Info) Description 08/04/2023 7:30 AM INTEGRATED MARKETING INTERN Hospital Encounter [facility] [address] [place] [address] Tisha Guerra MD COLO & RECTAL SURGERY [address] [address] 08/04/2023 7:30 AM INTEGRATED MARKETING INTERN - 08/04/2023 9:10 AM INTEGRATED MARKETING INTERN Surgery [facility] [address] [address] Tisha Guerra MD COLO & RECTAL SURGERY [address] [address] INTAROPERATIVE Colonoscopy Scheduled Procedures Name Priority Associated Diagnoses Date/Ti me COLONOSCOPY Prolapsed internal hemorrhoids, grade 3 Screen for colon cancer 08/04/2023 7:30 AM INTEGRATED MARKETING INTERN HEMORRHOIDECTOMY, INTERNAL Prolapsed internal hemorrhoids, grade 3 Screen for colon cancer 08/04/2023 7:30 AM INTEGRATED MARKETING INTERN Health Maintenance Due Date Last Done Comments ADVANCE CARE PLANNING 1945 ANNUAL REVIEW OF HM ORDERS 1947 ASTHMA ACTION PLAN 1947 ASTHMA CONTROL TEST [address] COLONOGRAPHY 1945 DEXA 1945 DIABETIC FOOT EXAM 1947 EYE EXAM 1947 FIT 1947 FLEX SIG 1947 MAMMO SCREENING 1947 MICROALBUMIN 1947 sDNA (Cologuard) 1945 COVID-19 Vaccine (#1) 02/17/1946 COLONOSCOPY 1957 COLORECTAL CANCER SCREENING 1957 HEPATITIS C SCREENING 1965 DTAP/TDAP/TD IMMUNIZATION (1 - Tdap) 01/23/2002 01/22/2002, 01/22/2002 RSV VACCINE ( & 60+) (1 - 1-dose 60+ series) 2007 FALL RISK ASSESSMENT 2012 MEDICARE ANNUAL WELLNESS VISIT 2012 A1C 03/19/2020 12/18/2019, 03/11/2009 LIPID 12/17/2020 12/18/2019 INFLUENZA VACCINE (#1) 2023 9, 03/31/2017, 04/20/2016, Additional history exists PHQ-2 (once per calendar year) 2023 Pneumococcal Vaccine: 65+ Years Completed 06/07/2018, 08/22/2014, 06/10/2010 ZOSTER IMMUNIZATION Completed 10/10/2018, 06/04/2018, 03/11/2009 HPV IMMUNIZATION Aged Out No longer e ligible based on patient's age to complete this topic IPV IMMUNIZATION Aged Out No longer e ligible based on patient's age to complete this topic MENINGITIS IMMUNIZATION Aged Out No l onger eligible based on patient's age to complete this topic RSV MONOCLONAL ANTIBODY Aged Out No l onger eligible based on patient's age to complete this topic Goals Goal Patient Goal Type Associated Problems Recent Progress Patient-Stated? Author MYC ECC SURG ENROLL Care Plan MyC ECC SURG ENROLL No Marisel Berman RN Additional Health Concerns Problem Noted Date Diagnosed Date MyC ECC SURG ENROLL 07/11/2023 Care Teams Rail Splitter Relationship Specialty Start Date End Date Lina Meléndez MD [facility] & [address] [address] PCP - General Internal Medicine 12/26/14 Rhoda Sarabia I [address] [place] [id number] Paper Pattern Folder Dietitian, Registered 02/20/20
--- OUTSIDE RECORDS SUMMARY | 2023-07-25 14:46 | XMS_ITS | Continuity of Care Document ---
Author Name Unknown Organization [facility] Address [address] [place] [address] Phone Care Team Providers Care Outpatient Scheduler Name Role Phone Alexandro HARRISON, Gurinder Unavailable Unavailable Allergies, Adverse Reactions, Alerts Substance [...] times every day 300 MG - Active NIFEDIPINE ER (unknown strength) Not Available - Active LASIX (unknown strength) Not Available - Active OXYCODONE HCL (unknown strength) Not Available - Active PROAIR DIGIHALER (unknown strength) Not Available - Active OMEPRAZOLE (unknown strength) Not Available - Active GABAPENTIN [...] Visit X-Ray Exam Lower Spine 2-3 Views 2023 Postop Followup Visit X-Ray Exam Lower Spine [...] on Encounter [facility], [address], [place], [place], [id number] , tel:[phone] [facility] [place] Encounter for other specified surgical aftercare 4 Alexandro Montoya [facility], [address] [place] [address] [address], [place], [place], [id number] , . tel:[phone] Referring Provider: Corona Pretty, rocket staff [address], [place], [address]. tel:[phone] [facility], [address], [place], [place], [address] , [place] [phone] [facility] - [facility] Encounter for other specified surgical aftercare 3 Alexandro Montoya [facility], [address] [place] [address], [place], [place], [id number] , [place]. [phone] Referring Provider: Corona Pretty rocket staff [address], [place], [address]. tel:[phone] [facility], [address], [place], [place], [id number] , [place] [phone] [facility] [place] Spinal stenosis, lumbar region with neurogenic claudication 3 Kimberly Finney. [address] [place] [address], [place], [place], [id number] , . [phone] Referring Provider: Corona Pretty rocket staff [address], [place], [address]. tel:[phone] [facility], [address], [place], [place], [address] , [place] tel: [phone] [facility] No Information 3 Mehbod Amir. [facility], [address], [place], [id number] , [place]. tel: [phone] [facility], [address], [place], [place], [id number] , [place] tel: [phone] [facility] No Information 3 Kimberly Finney. [address], [place], [place], [id number] , [place]. tel: [phone] Referring Provider: Corona Pretty, [facility] [address] [facility], [place], [address]. tel:[phone] [facility], [address], [place], [id number] , [place] tel: [phone] [facility] No Information 3 Mehbod Amir. [facility], [address], [place], [id number] , [place]. tel: [phone] Referring Provider: Corona Pretty, [facility] [address] [facility], [place], [address]. tel:[phone] [facility], [address], [place], [id number] , [place] tel: [phone] [facility] No Information 3 Mehbod Amir. [facility], [address], [place], [id number] , [place]. tel: [phone] Office/Outpa tient Visit,Est, Mod [facility], [address], [place], [place], [id number] , [place] tel: [phone] [facility] Spinal stenosis, lumbar region with neurogenic claudication Sep- 3 Mehbod Amir. [facility], [address], [place], [place], [id number] , [place]. tel:[phone] Referring Provider: Corona Pretty, [address], [place], [address]. tel:[phone] Office/Outpa tient Visit,New, Mod [facility], [address], [place], [place], [address] , [place] tel: [phone] [facility] Spinal stenosis, lumbar region with neurogenic claudication 2 Mehbod Amir. [facility], [address] [place] [address] [address], [place], [place], [id number] , [place]. tel: [phone] Referring Provider: Corona Pretty, [address], [place], [address]. tel:[phone] Office/Outpa tient Visit,Est, Mod [facility], [address], [place], [place], [address] , [place] tel: [phone] [facility] Other forms of scoliosis, lumbar regionPost Op - Normal Follow-up 8 Mehbod Amir. [facility], [address] [place] [address] [address], [place], [place], [address] , [place]. tel:[phone] Referring Provider: Corona Pretty, [address], [place], [address]. tel:[phone] Office/Outpa tient Visit,Est, Low [facility], [address], [place], [place], [address] , [place] tel: [phone] [facility] Encounter for other specified surgical aftercareArthrode sis status 8 Mehbod Amir. [facility], [address] [place] [address] [address], [place], [place], [id number] , [place]. tel:[phone] Referring Provider: Corona Pretty, [address], [place], [address]. tel:[phone] Office/Outpa tient Visit,Est, Mod [facility], [address], [facility] [place], [id number] , [place] tel: [phone] [facility] - [facility] Spinal stenosis, lumbar region NOS Mehbod Amir. [facility], [address] [place] [address], [place], [place], [address] , [place]. tel: [phone] Referring Provider: Corona Pretty, [facility], [place], [address]. tel:[phone] [facility], [address], [place], [place], [address] , [place] tel: [phone] [facility] - [facility] Encounter for follow-up examination after completed treatment for conditions other than malignant neoplasm Mehbod Amir. [facility], [address] [place] [address], [place], [place], [id number] , [place]. tel: [phone] Referring Provider: Corona Pretty rocket staff [facility], [place], [address]. tel:[phone] [facility], [address], [place], [place], [id number] , [place] tel: [phone] [facility] - [facility] Spinal stenosis, lumbar region 7 Kimberly Finney. [address] [place] [address], [place], [place], [address] , [place]. tel: [phone] Referring Provider: [employer] [facility], [place], [address]. tel:[phone] [facility], [address], [place], [place], [address] , [place] tel: [phone] [facility] No Information Mehbod Amir. [facility], [address] [place] [address], [place], [place], [id number] , [place]. tel: [phone] Referring Provider: Corona Pretty rocket staff [facility], [place], [address]. tel:[phone] Office/Outpa tient Visit,Est, Mod [facility], [address], [place], [place], [address] , [place] tel: [phone] [facility] Spinal stenosis, lumbar region Apr-0 3-201 7 Mehbod Amir. [facility], [address] [place] [address], [place], [place], [address] , [place]. tel: [phone] Referring Provider: Corona Pretty, [employer] [address], [place], [address]. tel:[phone] [facility], [address], [place], [place], [id number] , [place] tel: [phone] [facility] Spinal stenosis, lumbar region Sep- 9 6 [facility] [address] [place] [address], [place], [place], [id number] , [place]. tel: [phone] Referring Provider: Corona Pretty rocket staff [address] , [place], [address]. tel:[phone] [facility], [address], [place], [place], [address] , [place] tel: [phone] [facility] [place] Spinal stenosis, lumbar region Aug-0 8-201 6 Mehbod Amir. [facility], [address] [place] [address], [place], [place], [id number] , [place]. tel: [phone] Referring Provider: [employer] [facility], [place], [address]. tel:[phone] [facility], [address], [place], [place], [address] , [place] tel: [phone] [facility] No Information Sergei- 4201 6 Mehbod Amir. [facility], [address] [place] [address], [place], [place], [address] , [place]. tel: [phone] Referring Provider: Corona Pretty, [employer] [address] , [place], [address]. tel:[phone] Office/Outpa tient Visit,New, Mod [facility], [address], [place], [place], [address] , [place] tel:[phone] [facility] OverweightSpinal stenosis, lumbar region 201 6 Alexandro Paigeivana [facility], [address], [place], [place], [address] , [place]. tel:[phone] Referring Provider: Corona Pretty, [address], [place], [address]. tel:[phone] Family History Family Member Type Diagnosis Age At Onset No Information Payers Payer name Insurance type Covered democrat ID Valentin harrell(s) [employer] Medicare [facility] 2021 CI [id number] Social History Type Description Quantity Date Captured Comments Alcohol Use Details Unknown Caffeine Use Details Unknown Tobacco Use Status Never smoked tobacco 2023 Smoking Status Never smoker Non-Smoking Tobacco Use Details : No Details Available : No Details Available Sex Female Vital Signs Date / Time: Height Weight BMI Pulse Rate Blood Pressure Temperature Respiratory Rate Body Surface Area Head Circumference Head Circ. Percentile Wt./Nils. Percentile BMI percentile Pulse Ox Inhaled Ox 2:41 PM 65.00 in 70.760 kg (156.00 lbs) 25.9 6 kg/m eter (2) Chief Complaint And Reason For Visit No Information Reason For Referral Reason For Referral No Information Plan Of Treatment Date Type Action Status Appointment Maryam Cortez History Of Present Illness Encounter Date Complaint [...]
--- OUTSIDE RECORDS SUMMARY | 2023-07-25 14:47 | XMS_ITS ---
Author Name Unknown Organization [facility] Address [address] [place] [address] Care Team Providers Care Dairy Bacteriologist Name Role Phone Unavailable Primary Care Provider Unavailabl e Active Problems Problem Noted Date Diagnosed Date Dietary Folate Deficiency Anemia 04/04/2023 Malignant Neoplasm Of Breast Upper Outer Quadrant Female Right 01/26/2022 Cancer Staging:Pathologic stage from 12/21/2021:Stage Unknown(pT1b, pNX, cM0, G2, ER+, CA+, HER2-, Oncotype DX score: 17) - Unsigned Hyponatremia 03/08/2021 Diabetes Mellitus Type 2 01/31/2009 Overview: DM II [Diabetes mellitus type II] Hypertension And Chronic Kidney Disease Stage 1 To 4 01/31/2009 Overview: Hypertension Current Oncology Plans No current plan information found. Past Plans No past plan information found. Radiation Treatments * Plan Last Treated On Elapsed Days Fractions Treated Prescribed Fraction Dose Prescribed Total Dose [id number] 02/18/2022 4 5 of 5 520 cGy 2,600 cGy Reference Point Last Treated On Elapsed Days Session Dose Total Dose [id number] 02/18/2022 4 520 cGy 2,600 cGy icru ref 02/16/2022 2 531 cGy 1,593 cGy
--- OUTSIDE RECORDS SUMMARY | 2023-07-25 14:47 | XMS_ITS | Encounter Summary ---
Author Name Unknown Organization [facility] Address [address] [place] [address] Care Team Providers Care Chef & Owner Name Role Phone Unavailable Primary Care Provider Unavailabl e Encounter Details Date Type Department Care Team (Late st Contact Info) Description 02/08/2023 Orders Only Division of Nephrology and Hypertension in [place], [place] [address] [place] [address] Joshua Lopez Jr., D.O. [address] [place] [address] Social History Tobacco Use Types Packs/Day Years Used Date Smoking Tobacco: Never Smokeless Tobacco: Never Alcohol Use Standard Drinks/Week Comments Yes 0 (1 standard drink = 0.6 oz pur e alcohol) Very rare Humiliation, Afraid, Rape, and Kick questionnair e Answer Date Recorded Within the last year, have y ou been afraid of your partner or ex-partner? No 02/12/2022 Within the last year, have y ou been humiliated or emotionally abused in other ways by your partner or ex-partner? No Within the last year, have y ou been kicked, hit, slapped, or otherwise physically hurt by your partner or ex-partner? No 02/12/2022 Within the last year, have y ou been raped or forced to have any kind of sexual activity by your partner or ex-partner? No 02/12/2022 Social Connection and Isolat ion Panel [NHANES] Answer Date Recorded In a typical week, how many times do you talk on the phone with family, friends, or neighbors? Once a week 02/12/2022 How often do you get togethe r with friends or relatives? Once a week 02/12/2022 How often do you attend chur ch or denominational services? More than 4 times per year 02/12/2022 Do you belong to any clubs o r organizations such as zoroastrian groups, unions, fraternal or athletic groups, or school groups? Yes 02/12/2022 How often do you attend meet ings of the clubs or organizations you belong to? More than 4 times per year 02/12/2022 Are you , , di vorced, , never , or living with a partner? 02/12/2022 AUDIT-C Answer Date Recorded Q1: How often do you have a drink containing alc ohol? Monthly or less 02/12/2022 Q2: How many drinks containi ng alcohol do you have on a typical day when you are drinking? 1 or 2 02/12/2022 Q3: How often do you have si x or more drinks on one occasion? Never 02/12/2022 Overall Financial Resource Strain (CARDIA) Answe r Date Recorded How hard is it for you to pa y for the very basics like food, housing, medical care, and heating? Somewhat hard 02/12/2022 [facility] [place] [facility] - Occupational Stress Questionnaire Answer Date Recorded Do you feel stress - tense, restless, nervous, or anxious, or unable to sleep at night because your mind is troubled all the time - these days? Not at all 02/12/2022 Exercise Vital Sign Answer Date Recorde d On average, how many days pe r week do you engage in moderate to strenuous exercise (like a brisk walk)? 7 days 02/12/2022 On average, how many minutes do you engage in exercise at this level? 60 min 02/12/2022 Hunger Vital Sign Answer Date Recorded Within the past 12 months, y ou worried that your food would run out before you got the money to buy more. Never true 02/13/20 22 Within the past 12 months, t he food you bought just didn't last and you didn't have money to get more. Never true 02/12/2022 PRAPARE - Transportation Answer Date Re corded In the past 12 months, has l ack of transportation kept you from medical appointments or from getting medications? No 01/25 In the past 12 months, has l ack of transportation kept you from meetings, work, or from getting things needed for daily living? No 02/12/2022 Housing Stability Vital Sign Answer Jeffrey e Recorded In the last 12 months, was t here a time when you were not able to pay the mortgage or rent on time? No 02/12/2022 In the last 12 months, how many places have you lived? 1 02/12/2022 In the last 12 months, was t here a time when you did not have a steady place to sleep or slept in a group home (including now)? No 02/12/2022 Nutrition Answer Date Recorded Nutrition: EVOO Fat Source No 02/12 On average, how many serving s of fruits and vegetables do you eat per day (serving size is equal to 1 cup or approximately the size of a tennis ball)? 4-5 02/12/2022 Dental Answer Date Recorded Dental: Regular Dentist Yes 02/13/20 Employment Answer Date Recorded Employment status Retired 02/12/2022 Education Answer Date Recorded What is the highest level of school you have completed or the highest degree you have received? Professional school degree (e.g., MD, DDS, DVM, [employer]) 02/12/2022 Sex and Gender Information Value Date Recorded Sex Assigned at Not on file Gender Identity Not on file Sexual Orientation Not on file documented as of this encounter Plan of Treatment Not on file documented as of this encounter Visit Diagnoses Not on filedocumented in this encounter
--- OUTSIDE RECORDS SUMMARY | 2023-07-25 14:47 | XMS_ITS | Encounter Summary ---
Author Name Unknown Organization [facility] Address [address] [place] [address] Care Team Providers Care Armhole Presser Name Role Phone Unavailable Primary Care Provider Unavailabl e Reason for Visit * Appointment Request (Routine) - Closed Specialty Diagnoses / Procedures Referred By Caroline t Referred To Contact Nephrology and Hypertension Referral ID Status Reason Start Date Expiration Date Visits Re quested Visits Authorized [id number] Closed 02/16/2023 02/16/2024 1 1 Encounter Details Date Type Department Care Team (Latest Contact Info) Description 04/04/2023 3:00 PM CDT External Outreach Division of Nephrology and Hypertension in [place], [place] [address] [place] [address] Joshua Lopez Jr., D.O. [address] [place] [address] Hypertension And Chronic Kidney Disease Stage 1 To 4 (Primary Dx); Diabetes Mellitus Type 2 (HCC); Malignant Neoplasm Of Breast Upper Outer Quadrant Female Right (HCC); Dietary Folate Deficiency Anemia Social History Tobacco Use Types Packs/Day Years [...] 02/12/2022 How often do you attend chur or buddhist services? More than 4 times per year 02/12/2022 Do you belong to any clubs o r organizations such as oriental orthodox groups, unions, fraternal or athletic groups, [...] medical care, and heating? Somewhat hard 02/12/2022 [facility] [place] [facility] Occupat ional Health - Occupational Stress [...] money to buy more. Never true 02/13/20 Within the past 12 months, t he [...] or slept in a fpc (including now)? No 02/12/2022 Nutrition Answer Date [...] Sign Reading Time Taken Comments Blood Pressure 142/76 04/04/2023 2:51 PM CDT Pulse 66 04/04/2023 2:51 PM CDT Temperature - - Respiratory Rate - - Oxygen Saturation - - Inhaled Oxygen Concentration - - Weight 71.2 kg (156 lb 15.5 oz) 04/04/2023 2:51 PM CDT Height 165 cm (5' 4.96) 04/04/2023 2:51 PM CDT Body Mass Index 26.15 04/04/2023 2:51 PM CDT documented in this encounter Progress Notes * Joshua Lopez Jr., D.O. - 04/04/2023 3:00 PM CDT Referring Provider: No primary care provider on file. SUBJECTIVE REASON FOR VISIT [place] [facility] Follow-up regards CKD resistant hypertension with medication sensitivities, severe back pain diabetes mellitus type 2 HISTORY OF PRESENT ILLNESS Ms. Cortez is a 77 y.o. female who presents with the above matters. On the 15 of February she developed black stools, and was admitted to the hospital overnight where her hemoglobins were trended and she underwent EGD. It was negative fortunately. Her hemoglobin remained stable. I note that she is scheduled for a colonoscopy. I note that additionally as we worked up her anemia, which have been impressive for hemoglobin of 10.2 and now improved slightly that she has folate insufficiency. We discussed initiation of folic acid 1 mg orally daily she is willing to proceed. Regarding her blood pressure, we added Procardia-nifedipine XL 1 tablet orally daily 30 mg. This made a dramatic difference in her blood pressure, where it decreased from 180 systolic down to 120. She ultimately did well with this agent over time but has noticed a subtle increase in the right lowerextremity swelling. and her low-dose of Coreg. She is complaining of a bit of polyuria. Reviewed her chemistries, and that she has persistent hyponatremia on the background of inappropriately concentrated urine, suggesting a reset Osmo stat and or ADH release. We discussed increasing the solute in her diet, favoring new salt or no salt, and protein over taking sodium. Past Medical History: Diagnosis Date Anemia Of [...] Spine Foraminal Stroke (HCC) Current Outpatient Medications: acetaminophen (TYLENOL) 500 mg tablet, Take 1,000 mg by mouth., Disp: , Rfl: albuterol 90 mcg/actuation inhaler, Inhale 2-4 puffs as needed., Disp: , Rfl: alendronate (FOSAMAX) 70 mg tablet, 70 mg once a week. Every 7 days, Disp: , Rfl: anastrozole (ARIMIDEX) 1 mg tablet, Take 1 mg by mouth daily., Disp: , Rfl: atorvastatin (LIPITOR) 10 mg tablet, Take 10 mg by mouth at bedtime., Disp: , Rfl: B complex-vitamin (SUPER B-50) capsule, Take 1 capsule by mouth daily., Disp: , Rfl: BASAGLAR KWIKPEN U-100 INSULIN 100 unit/mL (3 mL) injection, Inject as directed daily., Disp: , Rfl: betamethasone dipropionate 0.05 % cream, Apply 1 application topically 2 (two) times a day., Disp: , Rfl: biotin 1 mg tablet, Take 5,000 mg by mouth daily., Disp: , Rfl: calcium carbonate-vitamin D3 (Calcium 600 with Vitamin D3) 600 mg-10 mcg (400 unit) tablet,chewable, Chew 600 mg daily., Disp: , Rfl: calcium carbonate-vitamin D3 625 mg (250 mg calcium)-3.125 mcg (125 Unit) per tablet, Take 1 tabletby mouth daily with breakfast., Disp: , Rfl: carvediloL (COREG) 6.25 mg tablet, Take 1 tablet (6.25 mg total) by mouth 2 (two) times a day with meals., Disp: 180 tablet, Rfl: 3 cholecalciferol (VITAMIN D3) 1,000 Unit tablet, Take 3,000 Units by mouth daily., Disp: , Rfl: clindamycin (CLEOCIN T) 1 % external solution, Apply 1 application topically 2 (two) times a day., Disp: , Rfl: clobetasoL (TEMOVATE) 0.05 % ointment, Apply 1 application topically 5 (five) times a week., Disp: , Rfl: clopidogrel (PLAVIX) 75 mg tablet, Take 75 mg by mouth daily., Disp: , Rfl: clopidogreL (PLAVIX) 75 mg tablet, Take 75 mg by mouth daily., Disp: , Rfl: coenzyme Q10 (CO Q-10) 10 mg capsule, Take 10 mg by mouth daily., Disp: , Rfl: diazePAM (VALIUM) 2 mg tablet, Take 2 mg by mouth as needed. Very limited usage, Disp: , Rfl: diazePAM (VALIUM) 2 mg tablet, Take 2 mg by mouth daily. As needed, Disp: , Rfl: flash glucose scanning reader (FREESTYLE KYLIE) [facility] [place], , Disp: , Rfl: flash glucose sensor (FREESTYLE KYLIE) kit, , Disp: , Rfl: fluticasone (FLONASE) 50 mcg/actuation nasal spray, Administer 2 sprays into affected nostril(s) atbedtime., Disp: , Rfl: fluticasone propionate (FLONASE) 50 mcg/actuation nasal spray, Administer 2 sprays into nostril(s) 2 (two) times a day., Disp: , Rfl: folic acid 1 mg tablet, Take 1 tablet (1 mg total) by mouth daily., Disp: 90 tablet, Rfl: 3 gabapentin (NEURONTIN) 300 mg capsule, Take 300 mg by mouth at bedtime., Disp: , Rfl: HUMALOG KWIKPEN INSULIN 100 unit/mL injection, Inject as directed daily., Disp: , Rfl: insulin aspart U-100 (NovoLOG) 100 unit/mL injection, .tidac, Disp: , Rfl: magnesium oxide (MAG-OX) 400 mg (241.3 mg magnesium) tablet, Take 600 mg by mouth daily. 400 in theAM, 200 in the PM, Disp: , Rfl: magnesium oxide 400 mg capsule, Take 4 tablets by mouth daily., Disp: , Rfl: metFORMIN (GLUCOPHAGE) 500 mg tablet, Take 500 mg by mouth 2 (two) times a day., Disp: , Rfl: NIFEdipine XL (PROCARDIA XL) 30 mg 24 hr tablet, Take 1 tablet (30 mg total) by mouth daily., Disp:90 tablet, Rfl: 3 omeprazole (PriLOSEC) [address] capsule, Take 20 mg by mouth daily., Disp: , Rfl: ondansetron (ZOFRAN) 4 mg tablet, Take 4 mg by mouth every 8 (eight) hours as needed., Disp: , Rfl: pantoprazole (PROTONIX) 40 mg EC tablet, Take 40 mg by mouth daily., Disp: , Rfl: Qvar RediHaler 80 mcg/actuation inhaler, Inhale 2 puffs 2 (two) times a day., Disp: , Rfl: timolol (TIMOPTIC) 0.5 % ophthalmic solution, Administer 1 drop into both eyes daily., Disp: , Rfl: valACYclovir (VALTREX) 500 mg tablet, Take 500 mg by mouth 2 (two) times a day., Disp: , Rfl: vit C/E/Zn/coppr/lutein/zeaxan (PRESERVISION AREDS-2 ORAL), Take 1 capsule by mouth daily., Disp: ,Rfl: zolpidem (AMBIEN) 5 mg tablet, Take 5 mg by mouth at bedtime as needed., Disp: , Rfl: REVIEW OF SYSTEMS All other systems reviewed and are negative. OBJECTIVE BP 142/76 Pulse 66 Ht 165 cm Wt 71.2 kg BMI 26.15 kg/m?? PHYSICAL EXAMINATION General: Awake alert oriented HEENT: NEEL, EOMI, Mucous membranes moist, no oral lesions Neck: No Masses, No Bruits Lungs: Clear to ascultation Heart: Regular Rate and Rhythm, No ectopy Murmurs or rubs Abdomen: Soft, Non-tender Extremities: No cyanosis, No clubbing: No nonpitting right greater than left lower extremity edema Neuro: Cranial Nerves intact, Gait is normal, strength grossly normal Skin: no suspicious lesions identified Psychiatric: Normal affect DIAGNOSTICS Note hemoglobin 11.2, low folate levels, no macrocytosis hemoglobin A1c to be done next month ASSESSMENT / PLAN #1 Hypertension And Chronic Kidney Disease Stage 1 To 4 Difficult issue, with her sensitivities to medications. Going forward: 1. Continue on her carvedilol 6.25 mg orally twice daily 2. Continue on her nifedipine XL 30 mg orally daily 3. Low-sodium diet 4. Minimize excess free water 5. Return to clinic in 3 months 6. Goal blood pressure less than 140/90 #2 Diabetes Mellitus Type 2 (HCC) Excellent glycemic control, most recent hemoglobin A1c 7%, we will continue to monitor. #3 Malignant Neoplasm Of Breast Upper Outer Quadrant Female Right (HCC) No evidence of recurrence. #4 Dietary Folate Deficiency Anemia We will add folic acid 1 mg orally daily Total time: 30 minute Counseling Time: 45 minutes Joshua Lopez Jr., D.O. documented in this encounter Plan of Treatment Not on file documented as of this encounter Visit Diagnoses Diagnosis Hypertension And Chronic Kidney Disease Stage 1 To 4- Primary Diabetes Mellitus Type 2 (HCC) Malignant Neoplasm Of Breast Upper Outer Quadrant Female Right (HCC) Dietary Folate Deficiency Anemia documented in this encounter
--- OUTSIDE RECORDS SUMMARY | 2023-07-25 14:47 | XMS_ITS | Encounter Summary ---
Author Name Unknown Organization [facility] Address [address] [place] [address] Care Team Providers Care Woven Label Designer Name Role Phone Unavailable Primary Care Provider Unavailabl e Reason for Visit * Appointment Request (Routine) - Closed Specialty Diagnoses / Procedures Referred By Caroline t Referred To Contact Nephrology and Hypertension Referral ID Status Reason Start Date Expiration Date Visits Re quested Visits Authorized [id number] Closed 05/26/2023 05/25/2024 1 1 Encounter Details Date Type Department Care Team (Latest Contact Info) Description 06/05/2023 3:30 PM ANTI TANK MISSILEMAN External Outreach Division of Nephrology and Hypertension in [place], [place] [address] [place] [address] Joshua Lopez Jr., D.O. [address] [place] [address] Hypertension And Chronic Kidney Disease Stage 1 To 4 (Primary Dx); Diabetes Mellitus Type 2 (HCC); Hyponatremia; Malignant Neoplasm Of Breast Upper Outer Quadrant [...] any clubs o r organizations such as samaritan groups, unions, fraternal or athletic groups, or [...] medical care, and heating? Somewhat hard 02/12/2022 [facility] [place] of Occupat ional Health - Occupational Stress [...] slept in a senior living (including now)? No 02/12/2022 Nutrition Answer Date [...] Sign Reading Time Taken Comments Blood Pressure 122/60 06/05/2023 3:55 PM ANTI TANK MISSILEMAN Pulse 66 06/05/2023 3:55 PM ANTI TANK MISSILEMAN Temperature - - Respiratory Rate - - Oxygen Saturation - - Inhaled Oxygen Concentration - - Weight 70.3 kg (154 lb 15.7 oz) 06/05/2023 3:55 PM ANTI TANK MISSILEMAN Height 165 cm (5' 4.96) 06/05/2023 3:55 PM ANTI TANK MISSILEMAN Body Mass Index 25.82 06/05/2023 3:55 PM ANTI TANK MISSILEMAN documented in this encounter Progress Notes * Joshua Lopez Jr., D.Dillon. - 06/05/2023 3:30 PM CST Referring Provider: No primary care provider on file. SUBJECTIVE REASON FOR VISIT [place] [facility] Follow-up for hypertension, resistant, with multiple medication sensitivities, hyponatremia, anemia, recent hip surgery and right renal cyst HISTORY OF PRESENT ILLNESS Ms. Cortez is a 77 y.o. female who presents with recent spine surgery, during the 2nd week of April 2023, which went well. Following the surgery however she developed lower extremity swelling, and was seen in clinic. A D-dimer was done which was positive, prompting a CT scan PA angiogram on the 14 of May. This disclosed a 1 cm exophytic right superior renal cyst. It had some cystic features associated, promptingthe radiologists to mentioned the possibility of a previously treated tumor. On review of her ultrasound which was done by our Nephrology team in December in 2020, there was a 1.4 x 1.3 x 1.4 cm right renal cyst. This current lesion noted on the CT scan correlates well with the previous lesion, and it actually is smaller. Surprisingly, a T8 compression fracture was noted. This is being evaluated by Radiology to ensure there are no pathologic characteristics, given her right breast cancer. Symptomatically she feels well she is no pain at the site of the T8 compression fracture. She has no shortness of breath no chest pain. Note that her home blood pressure has been excellent!. Following her surgery her blood pressures inthe 120s and 130s, she has had no orthostatic issues. She is currently on a regimen including Coreg6.25 mg orally twice daily, and Procardia XL 30 mg daily. Her diabetic control has been excellent, her hemoglobin A1c is within range at 7.4%. She has had very few hypoglycemic events, and none following her surgery. We discussed her anemia, which is on the background of subtle folate deficiency, she is on folate supplement. Her iron stores are normal, her hemoglobin is currently 9.2, with normal serum creatininelevel. Throughout the surgery her serum sodium remained stable between [id number]. Past Medical History: Diagnosis Date Anemia Of [...] Spine Foraminal Stroke (HCC) Current Outpatient Medications: carvediloL (COREG) 6.25 mg tablet, Take 1 tablet (6.25 mg total) by mouth 2 (two) times a day with meals., Disp: 180 tablet, Rfl: 3 acetaminophen (TYLENOL) 500 mg tablet, Take 1,000 [...] mouth daily with breakfast., Disp: , Rfl: cholecalciferol (VITAMIN D3) 1,000 Unit tablet, Take [...] , Rfl: flash glucose scanning reader (FREESTYLE DAJA) [facility] [place], , Disp: , Rfl: flash glucose sensor (FREESTYLE DAJA) kit, , Disp: , Rfl: fluticasone (FLONASE) 50 mcg/actuation nasal spray, Administer 2 sprays into affected nostril(s) atbedtime., Disp: , Rfl: fluticasone propionate (FLONASE) 50 mcg/actuation nasal spray, Administer 2 sprays into nostril(s) 2 (two) times a day., Disp: , Rfl: folic acid 1 mg tablet, Take 1 tablet (1 mg total) by mouth daily., Disp: 90 tablet, Rfl: 3 folic acid 1 mg tablet, Take 1 [...] systems reviewed and are negative. OBJECTIVE BP 122/60 Pulse 66 Ht 165 cm Wt 70.3 kg BMI 25.82 kg/m?? PHYSICAL EXAMINATION General: Awake alert oriented HEENT: NEEL, EOMI, Mucous membranes moist, no oral lesions Neck: No Masses, No Bruits Lungs: Clear to ascultation Heart: Regular Rate and Rhythm, No ectopy Murmurs or rubs Abdomen: Soft, Non-tender Extremities: No cyanosis, No clubbing: Nonpitting lower extremity swelling Neuro: Cranial Nerves intact, Gait is normal, strength grossly normal Skin: no suspicious lesions identified Psychiatric: Normal affect DIAGNOSTICS Note serum creatinine 0.5 mg/dL, hemoglobin 9.2, normal iron studies, folate slightly low, no microalbuminuria, serum sodium 131 ASSESSMENT / PLAN #1 Hypertension And Chronic Kidney Disease Stage 1 To 4 Her goal blood pressures have been met, I suspect this is on the background of her being adherent to her CPAP and her 2 current medications. We will make no changes. Otherwise going forward: 1. Low salt diet 2. Continue to be adherent with her CPAP 3. Continue on Coreg and Procardia 4. Return to clinic in roughly 4 months, at which point we will also recheck her renal ultrasound. #2 Diabetes Mellitus Type 2 (HCC) Excellent glycemic control and I congratulated her. We will continue with the current regimen, she is using a freestyle Daja and monitoring her sugar carefully. #3 Hyponatremia This is due to a reset Osmo stat, and I continue to encourage her to have as much protein as she can take in, we will avoid high water load, keeping her to less than 2 L of water per day. 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 #5 Dietary Folate Deficiency Anemia I refilled her folate Total time: 35 minutes Counseling Time: 25 minutes Joshua Lopez Jr., D.O. 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
--- OUTSIDE RECORDS SUMMARY | 2023-07-25 14:47 | XMS_ITS | Clinical Summary ---
Author Name Unknown Organization [facility] Address [address] [place] [address] Care Team Providers Care Land Acquisition Specialist Name Role Phone Unavailable Primary Care Provider Unavailabl e Source Comments Patient records contain information from all sites at [facility]. For routine questions regarding patient records, call [phone] during business hours, M-F 8:00 AM - 5:00 PM Central Time. 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 0 05/23/2016 Active B complex-vitamin (SUPER B-50) capsule Take 1 capsule by mouth daily. 0 Active cholecalciferol (VITAMIN D3) 1,000 Unit tablet Take 3,000 Units by mouth daily. 0 Active clopidogrel (PLAVIX) 75 mg tablet Take 75 mg by mouth daily. 0 05/23/2016 Active diazePAM (VALIUM) 2 mg tablet Take 2 mg by mouth as needed. Very limited usage 0 12/08/2016 Active fluticasone (FLONASE) 50 mcg/actuation nasal spray Administer 2 sprays into affected nostril(s) at bedtime. 0 Active BASAGLAR KWIKPEN U-100 INSULIN 100 unit/mL (3 mL) injection Inject as directed daily. 0 12/21/2017 Active HUMALOG KWIKPEN INSULIN 100 unit/mL injection Inject as directed daily. 0 02/17/2018 Active magnesium oxide 400 mg capsule Take 4 tablets by mouth daily. 0 12/15/2015 Active metFORMIN (GLUCOPHAGE) 500 mg tablet Take 500 mg by mouth 2 (two) times a day. 0 01/31/2009 Active vit C/E/Zn/coppr/lutein /zeaxan (PRESERVISION AREDS-2 ORAL) Take 1 capsule by mouth daily. 0 01/31/2009 Active pantoprazole (PROTONIX) 40 mg EC tablet Take 40 mg by mouth daily. 0 Active alendronate (FOSAMAX) 70 mg tablet 70 mg once a week. Every 7 days 0 12/20/2021 Active anastrozole (ARIMIDEX) 1 mg tablet Take 1 mg by mouth daily. 0 02/03/2022 Active Qvar RediHaler 80 mcg/actuation inhaler Inhale 2 puffs 2 (two) times a day. 0 01/18/2022 Active betamethasone dipropionate 0.05 % cream Apply 1 application topically 2 (two) times a day. 0 12/04/2019 Active albuterol 90 mcg/actuation inhaler Inhale 2-4 puffs as needed. 0 12/20/2021 Active clindamycin (CLEOCIN T) 1 % external solution Apply 1 application topically 2 (two) times a day. 0 12/20/2021 Active clobetasoL (TEMOVATE) 0.05 % ointment Apply 1 application topically 5 (five) times a week. 0 12/20/2021 Active clopidogreL (PLAVIX) 75 mg tablet Take 75 mg by mouth daily. 0 12/20/2021 Active diazePAM (VALIUM) 2 mg tablet Take 2 mg by mouth daily. As needed 0 12/20/2021 Active flash glucose scanning reader (FREESTYLE KYLIE) misc 0 12/31/2021 Active flash glucose sensor (FREESTYLE KYLIE) kit 0 12/31/2021 Active fluticasone propionate (FLONASE) 50 mcg/actuation nasal spray Administer 2 sprays into nostril(s) 2 (two) times a day. 0 12/20/2021 Active gabapentin (NEURONTIN) 300 mg capsule Take 300 mg by mouth at bedtime. 0 12/20/2021 Active insulin aspart U-100 (NovoLOG) 100 unit/mL injection .tidac 0 12/28/2021 Active omeprazole (PriLOSEC) [address] capsule Take 20 mg by mouth daily. 0 12/20/2021 Active magnesium oxide (MAG-OX) 400 mg (241.3 mg magnesium) tablet Take 600 mg by mouth daily. 400 in the AM, 200 in the PM 0 12/20/2021 Active ondansetron (ZOFRAN) 4 mg tablet Take 4 mg by mouth every 8 (eight) hours as needed. 0 07/10/2019 Active timolol (TIMOPTIC) 0.5 % ophthalmic solution Administer 1 drop into both eyes daily. 0 02/03/2022 Active zolpidem (AMBIEN) 5 mg tablet Take 5 mg by mouth at bedtime as needed. 0 11/21/2021 Active valACYclovir (VALTREX) 500 mg tablet Take 500 mg by mouth 2 (two) times a day. 0 12/06/2021 Active acetaminophen (TYLENOL) 500 mg tablet Take 1,000 mg by mouth. 0 07/16/2019 Active biotin 1 mg tablet Take 5,000 mg by mouth daily. 0 Active coenzyme Q10 (CO Q-10) 10 mg capsule Take 10 mg by mouth daily. 0 Active calcium carbonate-vitamin D3 625 mg (250 mg calcium)-3.125 mcg (125 Unit) per tablet Take 1 tablet by mouth daily with breakfast. 0 Active calcium carbonate-vitamin D3 (Calcium 600 with Vitamin D3) 600 mg-10 mcg (400 unit) tablet,chewable Chew 600 mg daily. 0 Active NIFEdipine XL (PROCARDIA XL) 30 mg 24 hr tablet Take 1 tablet (30 mg total) by mouth daily. 90 tablet 3 02/06/2023 02/06/2024 Active folic acid 1 mg tablet Take 1 tablet (1 mg total) by mouth daily. 90 tablet 3 04/04/2023 04/03/2024 Active carvediloL (COREG) 6.25 mg tablet Take 1 tablet (6.25 mg total) by mouth 2 (two) times a day with meals. 180 tablet 3 06/05/2023 Active folic acid 1 mg tablet Take 1 tablet (1 mg total) by mouth daily. 90 tablet 3 06/05/2023 06/04/2024 Active Active Problems Problem Noted Date Diagnosed Date Dietary Folate Deficiency Anemia 04/04/2023 Malignant Neoplasm Of Breast Upper Outer Quadrant Female Right 01/26/2022 Cancer Staging:Pathologic stage from 12/21/2021:Stage Unknown(pT1b, pNX, cM0, G2, ER+, NM+, HER2-, Oncotype DX score: 17) - Unsigned Hyponatremia 03/08/2021 Diabetes Mellitus Type 2 01/31/2009 Overview: DM II [Diabetes mellitus type II] Hypertension And Chronic Kidney Disease Stage 1 To 4 01/31/2009 Overview: Hypertension Encounters Date Type Department Care Team Description 06/05/2023 3:30 PM MEDICAL LAB TECH INSTRUCTOR External Outreach Division of Nephrology and Hypertension in [place], [place] [address] [place] [address] Joshua Lopez Jr., D.O. 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 More than 4 times per year 02/12/2022 Do you belong to any clubs o r organizations such as protestant groups, unions, fraternal or [...] medical care, and heating? Somewhat hard 02/12/2022 [facility] [place] of Occupat ional Health - Occupational Stress [...] place to sleep or slept in a assisted (including now)? No 02/12/2022 Nutrition Answer Date [...] Comments Blood Pressure 122/60 06/05/2023 3:55 PM MEDICAL LAB TECH INSTRUCTOR Pulse 66 06/05/2023 3:55 PM MEDICAL LAB TECH INSTRUCTOR Temperature 36.5 ??C (97.7 ??F) 02/18/2022 1:38 PM CD T Respiratory Rate - - Oxygen Saturation - - Inhaled Oxygen Concentration - - Weight 70.3 kg (154 lb 15.7 oz) 06/05/2023 3:55 PM MEDICAL LAB TECH INSTRUCTOR Height 165 cm (5' 4.96) 06/05/2023 3:55 PM MEDICAL LAB TECH INSTRUCTOR Body Mass Index 25.82 06/05/2023 3:55 PM MEDICAL LAB TECH INSTRUCTOR Plan of Treatment Health Maintenance Due Date Last Done Comments Bone Density Scan (Osteoporosis Screen) 1947 CT Colonography 1947 Cologuard 1947 Colonoscopy 1947 Colorectal Cancer Surveillance 1947 Diabetic Office Visit with Foot Exam 1947 Dilated Eye Exam 1947 Hepatitis C Screening 1947 Urine Albumin 1947 Hepatitis B Vaccines (1 of 3 - Risk 3-dose series) 2007 Hemoglobin A1C 06/18/2020 12/18/2019 Mammogram 12/21/2022 12/21/2021, 10/24, 11/02/2021, Additional history exists Depression Screening (Annual PHQ-2) 06/26/2023 Fall Risk Screen (Annual) 06/26/2023 Creatinine Level (Kidney Function Test) 05/05/2024 05/05/2023, 05/04/2023 Office Visit for Blood Pressure Check / Re-check 06/05/2024 06/05/2023 DTaP,Tdap,and Td Vaccines (4 - Td or Tdap) 08/22/2024 08/22/2014, 01/22/2002, 01/22/2002, Additional history exists Lipid (Cholesterol) Screening 12/17/2024 12/18/2019 Pneumococcal vaccine (65+ years) Completed 06/07/2018, 08/22/2014, 06/10/2010 Zoster Vaccines Completed 10/10/2018, 05/26, 03/11/2009 Influenza Vaccine Completed 03/15/2023, , 03/31/2021, Additional history exists COVID-19 Vaccine Completed 03/29/2023, 08/2022, 10/26/2022, Additional history exists HPV Vaccines Aged Out No longer eligi ble based on patient's age to complete this topic Procedures Procedure Name Priority Date/Time Associated Diagnosis Comments OUTSIDE MR NEURO Routine 06/23/2023 3:40 PM MEDICAL LAB TECH INSTRUCTOR OUTSIDE CT BODY Routine 05/14/2023 5:45 PM MEDICAL LAB TECH INSTRUCTOR from Last 3 Months Results * MR thoracic spine wo/w con-Outside MR Neuro (06/23/2023 3:40 PM MEDICAL LAB TECH INSTRUCTOR) Narrative [facility] - 06/28/2023 4:44 PM MEDICAL LAB TECH INSTRUCTOR This order has been created and auto-finalized to support the import of outside images. If available, original interpretation can be found on the Media Tab in Chart Review, in Document Viewer, or as an image in QREADS. If a re-interpretation or overread is required please follow defined workflow. ?? Provider Not In System IMG MRI PROCEDURE S Performing Organization Address [facility] Co de Phone Number [facility] NA * CT Angio Chest PE Protocol-Outside CT Body (05/14/2023 5:45 PM MEDICAL LAB TECH INSTRUCTOR) Narrative [facility] - 05/25/2023 1:39 PM MEDICAL LAB TECH INSTRUCTOR This order has been created and auto-finalized to support the import of outside images. If available, original interpretation can be found on the Media Tab in Chart Review, in Document Viewer, or as an image in QREADS. If a re-interpretation or overread is required please follow defined workflow. ?? Provider Not In System IMG CT PROCEDURES Performing Organization Address [facility] Co de Phone Number [facility] NA from Last 3 Months
--- OUTSIDE RECORDS SUMMARY | 2023-07-25 14:47 | XMS_ITS | Encounter Summary ---
Author Name Unknown Organization [facility] Address [address] [place] [address] Care Team Providers Care Retail Sales Manager Name Role Phone Unavailable Primary Care Provider Unavailabl e Reason for Visit * Appointment Request (Routine) - Closed Specialty Diagnoses / Procedures Referred By Caroline t Referred To Contact Nephrology and Hypertension Referral ID Status Reason Start Date Expiration Date Visits Re quested Visits Authorized [id number] Closed 11/03/2022 11/03/2023 1 1 Encounter Details Date Type Department Care Team (Latest Contact Info) Description 11/28/2022 3:30 PM CDT External Outreach Division of Nephrology and Hypertension in [place], [place] [address] [place] [address] Joshua Lopez Jr., D.O. 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 More than 4 times per year 02/12/2022 Do you belong to any clubs o r organizations such as jainism groups, unions, fraternal or [...] care, and heating? Somewhat hard 02/12/2022 [facility] [place] of Occupat ional Health - Occupational Stress [...] or slept in a snf (including now)? No 02/12/2022 Nutrition Answer Date [...] Sign Reading Time Taken Comments Blood Pressure 190/80 11/28/2022 3:43 PM CDT Pulse 64 11/28/2022 3:43 PM CDT Temperature - - Respiratory Rate - - Oxygen Saturation - - Inhaled Oxygen Concentration - - Weight 73 kg (160 lb 15 oz) 11/28/2022 3:43 PM C DT Height 170.1 cm (5' 6.97) 11/28/2022 3:43 PM CD T Body Mass Index 25.23 11/28/2022 3:43 PM CDT documented in this encounter Progress Notes * Joshua Lopez Jr., D.Dillon. - 11/28/2022 3:30 PM CDT Referring Provider: No primary care provider on file. SUBJECTIVE REASON FOR VISIT [facility] Follow-up regards hyponatremia, CKD stage 1, hypertension diabetes mellitus type 2 HISTORY OF PRESENT ILLNESS Ms. Cortez is a 77 y.o. female who presents with the above issues. Her blood pressures have been running high at home again, 170s and 180s over 80s. She is not had headaches, no lower extremity swelling, she is not had any visual changes. She is done her best cut back on salt. Her serum sodium level continues to be low at 129, with a known history of reset Osmo stat. She is currently on carvedilol 6.25 mg twice daily. No lightheaded spells. She is getting some intermittent chest discomfort which occurs once or twice per week to left of her midline roughly 2 hoursafter she takes her evening dose of carvedilol. She is able to exercise on a daily basis, has to take rests frequently, but is not troubled by any chest pain with exertion. She is had intermittent hypoglycemic events, which she relates are due to her taking insulin and exercising without food. No cough no fevers no chills. Past Medical History: Diagnosis Date Anemia Of [...] Rfl: flash glucose scanning reader (FREESTYLE KYLIE) [facility] , Disp: , Rfl: flash glucose sensor (FREESTYLE KYLIE) kit, , Disp: , Rfl: fluticasone (FLONASE) 50 mcg/actuation nasal spray, Administer 2 sprays into affected nostril(s) atbedtime., Disp: , Rfl: fluticasone propionate (FLONASE) 50 mcg/actuation nasal spray, Administer 2 sprays into nostril(s) 2 (two) times a day., Disp: , Rfl: gabapentin (NEURONTIN) 300 mg capsule, Take 300 [...] (two) times a day., Disp: , Rfl: omeprazole (PriLOSEC) [address] capsule, Take [...] systems reviewed and are negative. OBJECTIVE BP (!) 190/80 Pulse 64 Ht 170.1 cm Wt 73 kg BMI 25.23 kg/m?? PHYSICAL EXAMINATION General: Awake alert oriented HEENT: NEEL, EOMI, Mucous membranes moist, no oral lesions Neck: No Masses, No Bruits Lungs: Clear to ascultation Heart: Regular Rate and Rhythm, No ectopy she has a soft 2/6 systolic ejection murmur at the left upper sternal edge Murmur or rubs Abdomen: Soft, Non-tender Extremities: No cyanosis, No clubbing: No edema Neuro: Cranial Nerves intact, Gait is normal, strength grossly normal Skin: no suspicious lesions identified Psychiatric: Normal affect DIAGNOSTICS Note normal serum creatinine level sodium 129 hemoglobin A1c 7.2% ASSESSMENT / PLAN #1 Hypertension And Chronic Kidney Disease Stage 1 To 4 She is difficult to manage hypertension with multiple medication sensitivities in labile blood pressure. We will proceed as follows: 1. Although she is hyponatremia I am going to resume low-dose hydrochlorothiazide 25 mg, 1/2 tabletorally daily. I am reluctant to utilize furosemide as she tolerated this poorly in the past. 2. I have asked her to increase her intake of fruits and vegetables. 3. I have asked her to practice meditation 4. I have asked her to be cautious with her sodium 5. No NSAIDs or Meraz 2 inhibitors 6. I will have her back in 2 months to review how her blood pressures responding #2 Hyponatremia This is a reset Osmo stat, and I am hopeful that the addition of the thiazide will not make this worse. We will recheck in 2 months. #3 Diabetes Mellitus Type 2 (HCC) I am satisfied with a hemoglobin A1c at 7.2%. 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 Total time: 35 minutes Counseling Time: 25 minute Joshua Lopez Jr., D.O. 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
--- OUTSIDE RECORDS SUMMARY | 2023-07-25 14:47 | XMS_ITS ---
Author Name Unknown Organization [facility] Address [address] [place] [address] Care Team Providers Care Automation Tester Name Role Phone Unavailable Unavailable Unavailable Surgery Details Not on file Complications Check Surgery Details section. Procedure Estimated Blood Loss Check Surgery Details section. Procedure Findings Check Surgery Details section. Procedure Specimens Taken Check Surgery Details section.
--- OUTSIDE RECORDS SUMMARY | 2023-07-25 14:47 | XMS_ITS | Referral Summary ---
Author Name Unknown Organization [facility] Address [address] [place] [address] Care Team Providers Care Carving Machine Operator Name Role Phone Unavailable Primary Care Provider Unavailabl e Source Comments Patient records contain information from all sites at [facility]. For routine questions regarding patient records, call [phone] during business hours, M-F 8:00 AM - 5:00 PM Central Time. Record requests for emergency care only can be directed to [phone] at any time.[facility] Encounters Date Type Department Care Team Description 06/05/2023 3:30 PM SOUP MIXER External Outreach Division of Nephrology and Hypertension in [place], [place] [address] [place] [address] Joshua Lopez Jr., D.O. Hypertension And Chronic Kidney Disease Stage 1 To 4 (Primary Dx); Diabetes Mellitus Type 2 (HCC); Hyponatremia; Malignant Neoplasm Of Breast Upper Outer Quadrant Female Right (HCC); Dietary Folate Deficiency Anemia from Last 3 Months Allergies Active Allergy Reactions Criticality Noted Date [...] 0 12/20/2021 Active flash glucose scanning reader (OmiseSTYLE KYLIE) misc 0 12/31/2021 Active flash glucose [...] from 12/21/2021:Stage Unknown(pT1b, pNX, cM0, G2, ER+, OK+, HER2-, Oncotype DX score: 17) - Unsigned Hyponatremia 03/08/2021 Diabetes Mellitus Type 2 01/31/2009 Overview: DM II [Diabetes mellitus type II] Hypertension And Chronic Kidney Disease Stage 1 To 4 01/31/2009 Overview: Hypertension Immunizations Name Administration Dates Next Due SARS-COV-2 (COVID-19) - PFIZER (12 years or olde r) 08/04/2020,07/14/2020 Social History Tobacco Use Types Packs/Day Years [...] How often do you attend chur or mormon services? More than 4 times per year 02/12/2022 Do you belong to any clubs o r organizations such as latter day groups, unions, fraternal [...] medical care, and heating? Somewhat hard 02/12/2022 [facility] [place] of Occupat ional Health - Occupational Stress [...] No 02/12/2022 Housing Stability Vital Sign Answer Jfefrey e Recorded In the last 12 months, [...] or slept in a penitentiary (including now)? No 02/12/2022 Nutrition Answer Date [...] Comments Blood Pressure 122/60 06/05/2023 3:55 PM SOUP MIXER Pulse 66 06/05/2023 3:55 PM SOUP MIXER Temperature 36.5 ??C (97.7 ??F) 02/18/2022 1:38 PM CD T Respiratory Rate - - Oxygen Saturation - - Inhaled Oxygen Concentration - - Weight 70.3 kg (154 lb 15.7 oz) 06/05/2023 3:55 PM SOUP MIXER Height 165 cm (5' 4.96) 06/05/2023 3:55 PM SOUP MIXER Body Mass Index 25.82 06/05/2023 3:55 PM SOUP MIXER Plan of Treatment Not on file Procedures Procedure Name Priority Date/Time Associated Diagnosis Comments OUTSIDE MR NEURO Routine 06/23/2023 3:40 PM SOUP MIXER OUTSIDE CT BODY Routine 05/14/2023 5:45 PM SOUP MIXER from Last 3 Months Results * MR thoracic spine wo/w con-Outside MR Neuro (06/23/2023 3:40 PM SOUP MIXER) Narrative [facility] - 06/28/2023 4:44 PM SOUP MIXER This order has been created and auto-finalized to support the import of outside images. If available, original interpretation can be found on the Media Tab in Chart Review, in Document Viewer, or as an image in QREADS. If a re-interpretation or overread is required please follow defined workflow. ?? Provider Not In System IMG MRI PROCEDURE S Performing Organization Address [facility] de Phone Number [facility] NA * CT Angio Chest PE Protocol-Outside CT Body (05/14/2023 5:45 PM SOUP MIXER) Narrative [facility] - 05/25/2023 1:39 PM SOUP MIXER This order has been created and auto-finalized to support the import of outside images. If available, original interpretation can be found on the Media Tab in Chart Review, in Document Viewer, or as an image in QREADS. If a re-interpretation or overread is required please follow defined workflow. ?? Provider Not In System IMG CT PROCEDURES Performing Organization Address [facility] Co de Phone Number [facility] NA from Last 3 Months
--- OUTSIDE RECORDS SUMMARY | 2023-07-25 14:47 | XMS_ITS | Encounter Summary ---
Author Name Unknown Organization [facility] Address [address] [place] [address] Care Team Providers Care Financial Reserve Clerk Name Role Phone Unavailable Primary Care Provider Unavailabl e Reason for Visit * Appointment Request (Routine) - Closed Specialty Diagnoses / Procedures Referred By Caroline t Referred To Contact Nephrology and Hypertension Referral ID Status Reason Start Date Expiration Date Visits Re quested Visits Authorized [id number] Closed 12/16/2022 12/16/2023 1 1 Encounter Details Date Type Department Care Team (Latest Contact Info) Description 02/06/2023 2:30 PM CDT External Outreach Division of Nephrology and Hypertension in [place], [place] [address] [place] [address] Joshua Lopez Jr., D.O. [address] [place] [address] Hypertension And Chronic Kidney Disease Stage 1 To 4 (Primary Dx); Hyponatremia; Malignant Neoplasm Of Breast Upper Outer Quadrant Female Right (HCC); Diabetes Mellitus Type 2 (HCC) Social History Tobacco Use Types Packs/Day [...] How often do you attend chur or worship services? More than 4 times per year 02/12/2022 Do you belong to any clubs o r organizations such as restorationism groups, unions, fraternal or [...] medical care, and heating? Somewhat hard 02/12/2022 [facility] [facility] Occupat ional Health - Occupational Stress [...] or slept in a longterm (including now)? No 02/12/2022 Nutrition Answer Date [...] Sign Reading Time Taken Comments Blood Pressure 188/74 02/06/2023 3:08 PM CDT Pulse 61 02/06/2023 2:43 PM CDT Temperature - - Respiratory Rate - - Oxygen Saturation - - Inhaled Oxygen Concentration - - Weight 72.1 kg (158 lb 15.2 oz) 02/06/2023 2:43 PM CDT Height 172 cm (5' 7.72) 02/06/2023 2:43 PM CDT Body Mass Index 24.37 02/06/2023 2:43 PM CDT documented in this encounter Progress Notes * Joshua Lopez Jr., D.Dillon. - 02/06/2023 2:30 PM CDT Referring Provider: No primary care provider on file. SUBJECTIVE REASON FOR VISIT [facility] Follow-up regards labile hypertension breast cancer, anemia HISTORY OF PRESENT ILLNESS Ms. Cortez is a 77 y.o. female who presents with difficult to manage high blood pressure. She has had multiple medicine sensitivities in the past, we have struggled to find a regimen with support her blood pressure. I note that consistently her blood pressures been out registering high. Her pressures are usually in the 190s in physician's offices. She is not been checking her blood pressure reliably at home but recalls that when she does it is usually in the 170s over 80s. She is not had orthostatic issues, she is not had lower extremity swelling, no chest pain, no shortness of breath. She does get an interesting symptom that following her carvedilol she gets a twinge in her chest. She is struggling with back pain is using gabapentin as well as oxycodone is quite sleepy today. We checked her blood pressure multiple times in the clinic. She is not had any spells of hypertension. She is longstanding history as well of a reset Osmo stat, with low serum sodium levels. We added hydrochlorothiazide at her last visit, her serum sodium level has declined slightly from 129-126. She is also developed mild hypokalemia with a potassium of 3.4. More concerning however is that her hemoglobin has dropped 10.4. She has been using an iron supplement twice daily for the past several months. Iron stores were not ordered today, as her most recent hemoglobin was normal. She has had no bowel habit changes, she has had no diarrhea, no melena, no hematochezia. She continues to follow with her oncology team regards her breast cancer. Reviewed her dietary habits and discussed higher potassium foods, and also explored whether she hadbeen on long-acting nifedipine in the past. She would not. She did poorly with amlodipine in the past. We discussed the long-term complications of hypertension if left less well managed. Discussed the possibility of stroke, CHF, myocardial infarction, and CKD. She is still struggling quite a bit with her back pain. No recent hypoglycemic events. Past Medical History: Diagnosis Date Anemia Of [...] Rfl: flash glucose scanning reader (FREESTYLE KYLIE) [facility] [place], , Disp: , Rfl: flash glucose sensor [...] Inject as directed daily., Disp: , Rfl: hydroCHLOROthiazide (HYDRODIURIL) 12.5 mg tablet, Take 1 tablet (12.5 mg total) by mouth daily., Disp: 90 tablet, Rfl: 3 insulin aspart U-100 (NovoLOG) 100 unit/mL injection, [...] reviewed and are negative. OBJECTIVE BP (!) 188/74 Pulse 61 Ht 172 cm Wt 72.1 kg BMI 24.37 kg/m?? PHYSICAL EXAMINATION General: Awake alert oriented HEENT: NEEL, EOMI, Mucous membranes moist, no oral lesions Neck: No Masses, No Bruits Lungs: Clear to ascultation Heart: Regular Rate and Rhythm, No ectopy Murmurs or rubs Abdomen: Soft, Non-tender Extremities: No cyanosis, No clubbing: Trace left foot edema Neuro: Cranial Nerves intact, Gait is normal, strength grossly normal Skin: no suspicious lesions identified Psychiatric: Normal affect DIAGNOSTICS Note hemoglobin 10.4 grams/deciliter, normochromic normocytic, normal chemistries with the exception of serum potassium 3.4 ASSESSMENT / PLAN #1 Hypertension And Chronic Kidney Disease Stage 1 To 4 Goal blood pressure certainly not met. Our goals: Would like to see her blood pressure below 140/90 We will add Procardia XL 30 mg orally daily to her regimen, in addition to her hydrochlorothiazide 12.5 mg orally daily, and carvedilol 6.25 mg orally twice daily. Low-sodium diet less than 2000 mg sodium per day Will continue to see her on a regular basis, have foster her taking a higher potassium diet which Iwrote out for her Asked her to record her home blood pressures and bring them the clinic, with blood pressures checked both in the morning and the evening. We may need to engage again in direct observed therapy similar to at her visits approximately 2 years ago. #2 Hyponatremia This is due to a reset Osmo stat, perhaps exacerbated slightly by the thiazide diuretic. Ask her tocontinue to foster more protein intake. #3 Malignant Neoplasm Of Breast Upper Outer Quadrant Female Right (HCC) She is currently being followed by Dr. Giles. #4 Diabetes Mellitus Type 2 (HCC) Her glycemic control seems reasonable we will check hemoglobin A1c Total time: 45 minute Counseling Time: 30 minutes Joshua Lopez Jr., D.O. documented in this encounter Plan of Treatment Not on file documented as of this encounter Visit Diagnoses Diagnosis Hypertension And Chronic Kidney Disease Stage 1 To 4- Primary Hyponatremia Malignant Neoplasm Of Breast Upper Outer Quadrant Female Right (HCC) Diabetes Mellitus Type 2 (HCC) documented in this encounter
== END 2023-07-25 14:43 | disposition home or self-care (01) ==
LOC: NFLDREF 14:44
PROVIDERS: PCP Internal Medicine; Visit Provider Internal Medicine
DX: E11.9 Type 2 diabetes mellitus without complications (principal)
CPT/HCPCS: 80048

== ENCOUNTER 2023-08-14 14:00 | Outpatient (RCR) | payer MEDICARE, SELFPAY | END 2023-12-12 23:59 | disposition home or self-care (01) | PROVIDERS: PCP Internal Medicine; Visit Provider Specialist | DX: Z98.890 Other specified postprocedural states (principal); Z51.89 Encounter for other specified aftercare | CPT/HCPCS: 97110; 97162 ==

== ENCOUNTER 2023-08-16 07:06 | Outpatient (CLI) | payer MEDICARE, SELFPAY ==
--- OUTSIDE RECORDS SUMMARY | 2023-08-16 07:08 | XMS_ITS | Clinical Summary ---
Author Name Unknown Organization [facility] Address [place], [place] [address] Care Team Providers Care Youth Liaison Officer Name Role Phone Lina Meléndez MD Primary Care Provider [phone]- [phone] Allergies Active Allergy Reactions Criticality Noted Date [...] 0 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[employer] A/SLE KYLIE) 0 12/31/2021 Active continuous glucose monitor [...] Department Care Team Description 06/07/2023 2:00 PM PHP ARCHITECT Office Visit [facility] [address] [place] [address] Francesco Huffman MD Sleep Follow-up 06/07/2023 Travel from Last 3 Months Immunizations Name [...] Sex Assigned at Female 08/31/2020 9:33 AM PHP ARCHITECT Gender Identity Female 08/31/2020 9:33 AM PHP ARCHITECT Sexual Orientation Straight 08/31/2020 9: 33 AM PHP ARCHITECT Obstetrics History Para Term AB IAB SAB [...] Comments Blood Pressure 130/62 06/07/2023 2:05 PM PHP ARCHITECT Pulse 72 06/07/2023 2:05 PM PHP ARCHITECT Temperature 37.1 ??C (98.7 ??F) 05/05/2023 7:27 AM CS T Respiratory Rate 16 05/05/2023 7:27 AM PHP ARCHITECT Oxygen Saturation 100% 06/07/2023 2:05 PM PHP ARCHITECT Inhaled Oxygen Concentration - - Weight 70.8 kg (156 lb) 06/07/2023 2:05 PM PHP ARCHITECT Height 165.1 cm (5' 5) 06/07/2023 2:05 PM PHP ARCHITECT Body Mass Index 25.96 06/07/2023 2:05 PM PHP ARCHITECT Plan of Treatment Health Maintenance Due Date [...] 18-79 Completed 12/08/2016 COVID-19 vaccine series Completed 03/29/20 23, 10/26/2022, 03/10/2022, Additional history exists Medical Devices Implanted Type Area Assembly Line Robot Operator Device Identifier Shelf Expiration Date Model / Serial / Lot [id number] 1-4mm 30cc Medtronic Chips Canclls Freeze Dried Implanted:Qty: 1 on 12/06/2016 by Gurinder Mc MD at [facility] Explanted:at [facility] (Quantity not on file) Spine Medtronic Spine/Ortho 08/24/2021 [id number] / [id number] / Spacer Lmbr [id number] [place] Convex Stra Plif - [id number] Implanted:Qty: 1 on 12/06/2016 by Gurinder Mc MD at [facility] Spine Meka Biomet 07/26/2026 [id number] # / / [id number] Matrix 3cc Emelina Dbf Putty Dbm Implanted:Qty: 1 on 12/06/2016 by Gurinder Mc MD at [facility] Explanted:at [facility] (Quantity not on file) Spine Medtronic Spine/Ortho 09/08/2018 [id number] / [id number] / Screw Lmbr Post 5.5x40mm Vitality Va - [id number] Implanted:Qty: 1 on 12/06/2016 by Gurinder Mc MD at [facility] Spine [employer] Spine 07.34187. 032# / / Screw Lmbr Post 5.5x45mm Vitality Va - [id number] Implanted:Qty: 2 on 12/06/2016 by Gurinder Mc MD at [facility] Spine [employer] Spine 07.54038. 033# / / Set Screw Lmbr 5.5-6mm Vitality Shear Off - [id number] Implanted:Qty: 4 on 12/06/2016 by Gurinder Mc MD at [facility] Spine [employer] Spine 07.36818. 001# / / Avni Lmbr 40x5.5mm Vitality Cvd Titnm - [id number] Implanted:Qty: 2 on 12/06/2016 by Gurinder Mc MD at [facility] Spine [employer] Spine 07.74740. 005# / / Spacer Lmbr [id number] Zyston Convex Stra Plif - [id number] Implanted:Qty: 1 on 12/06/2016 by Gurinder Mc MD at [facility] Spine [employer] [id number] # / / Screw Lmbr Post 6.5x40mm Vitality Va - [id number] Implanted:Qty: 1 on 12/06/2016 by Gurinder Mc MD at [facility] Spine [employer] Spine 07.. 074# / / .[id number] Double Ended K-Wire Implanted:Qty: 2 on 12/03/2018 by Rex Fink DPM at [facility] Right: Foot N/A / / Interstim Basic Evaluation Lead Implanted:Qty: 1 on 09/28/2022 by Michelle Colmenares DO at [facility] 01/26/2024 [id number] / / [id number] Interstim Basic Evaluation Kit Implanted:Qty: 1 on 09/28/2022 by Michelle Colmenares DO at [facility] Medtronic 08/27/2023 [id number] / / [id number] Interstim X Surescan Mri Lead And Smart Microsoft Bi Consultant - [id number] Implanted:Qty: 1 on 10/18/2022 by Michelle Colmenares DO at [facility] Right: Buttock Medtronic Pain Therapy 02/07/2024 [id number] / [id number] / Lead Kit 4.32mm Spacing 28cm Length Interstim - [id number] Implanted:Qty: 1 on 10/18/2022 by Michelle Colmenares DO at [facility] Right: Buttock Medtronic Pain Therapy 01/17/2024 [id number] / / [id number] Envlp Neuro Tyrx Absorb Antibacterial - [id number] Implanted:Qty: 1 on 10/18/2022 by Michelle Colmenares DO at [facility] Right: Buttock Medtronic 03/20/2023 [id number] / / [id number] Spacer Lmbr [id number] Zyston Convex Stra Tlif - [id number] Implanted:Qty: 1 on 05/03/2023 by Gurinder Mc MD at [facility] N/A: Spine [employer] 09/13/2026 [id number] / / [id number] Avni Lmbr 95x5.5mm Vitality Cvd Titnm - [id number] Implanted:Qty: 1 on 05/03/2023 by Gurinder Mc MD at [facility] N/A: Spine [employer] Spine 07.76543. 016 / / Avni Lmbr 90x5.5mm Vitality Cvd Titnm - [id number] Implanted:Qty: 1 on 05/03/2023 by Gurinder Mc MD at [facility] N/A: Spine [employer] Spine 07.63087. 015 / / Set Screw Lmbr 5.5-6mm Vitality Torque - [id number] Implanted:Qty: 8 on 05/03/2023 by Gurinder Mc MD at [facility] N/A: Spine [employer] Spine 07.37479. 001 / / Screw Spinal 4.5x45mm Poly Tl Implanted:Qty: 1 on 05/03/2023 by Gurinder Mc MD at [facility] N/A: Spine [id number] / / Description:SCREW SPINAL 4.5 X45MM POLY TL Screw Spinal 5.5x45mm Poly Tl Implanted:Qty: 3 on 05/03/2023 by Gurinder Mc MD at [facility] N/A: Spine [id number] / / Description:SCREW SPINAL 5.5 X45MM POLY TL Bone 1-4mm 60cc Medtronic Fine Canclls Freeze Dried - [id number] Implanted:Qty: 1 on 05/03/2023 by Gurinder Mc MD at [facility] N/A: Spine Medtronic Spine/Ortho 09/21/2026 [id number] / [id number] 1 / Bone Matrix 6cc Emelina Dbf Putty Dbm - [id number] Implanted:Qty: 1 on 05/03/2023 by Gurinder Mc MD at [facility] N/A: Spine Medtronic Spine/Ortho 04/11/2025 [id number] / [id number] / Advance Directives Documents on File Type Date Recorded Patient Basket Machine Operator Expl anation Healthcare Directive 12/31/2015 7:52 AM 09/26 Latest Code Status on File Code Status [...] Comments Code Status Discussion: Discussed Care Teams Youth Liaison Officer Relationship Specialty Start Date End Date Lina Meléndez MD [address] [place] [address] PCP - General Internal Medicine 11/01/21
--- OUTSIDE RECORDS SUMMARY | 2023-08-16 07:08 | XMS_ITS | Clinical Summary ---
Author Name Unknown Organization [facility] Address [address] [place] [address] Care Team Providers Care Hatch Boss Name Role Phone Lina Meléndez MD Primary Care Provider [phone]- [phone] Source Comments You are receiving this document as you are listed as the primary care provider,follow-up provider, or the patient has been referred to you for consultation.This is in compliance with the Medicare andBar[facility] Citizens Hospitalcaid EHR Incentive Program,which states Providers who transition their patient to another setting of careor provider of care or refers their patient to another provider of care shouldprovide summary care record for each transition of care or referral. [facility]our[facility] Allergies Active Allergy Reactions Criticality Noted Date [...] LW Comment:info per pt, Dr.Tom Dye PRN 05/02/2007 Active insulin lispro (AKA HUMALOG) 100 UNIT/ML injection vial Inject subcutaneously 4 times daily (sliding scale). Indications: DIABETES MELLITUS 06/22/2011 Active atorvastatin (LIPITOR) 10 MG tabletIndications :Hyperlipidemia Take 10 mg by mouth daily. Indications: High Amount of Fats in the Blood 05/23/2016 Active fluticasone (FLONASE) 50 MCG/ACT nasal solutionIndicatio ns:Nasal Signs and Symptoms Place 2 Sprays into both nostrils two times a day. Indications: Signs and Symptoms of Nose Diseases Active clopidogrel (PLAVIX) 75 MG tabletIndications :stroke Take 75 mg by mouth daily. Indications: stroke 05/23/2016 Active magnesium oxide (MAG-OX) 400 MG tabletIndications :Hypomagnesemia Take 800 mg by mouth two times a day. Indications: Disorder with Low Magnesium Levels 03/05/2016 Active cloNIDine (CATAPRES) 0.3 MG tabletIndications :Hypertension Take 0.3 mg by mouth three times a day. Indications: High Blood Pressure Disorder Active valACYclovir (VALTREX) 500 MG tablet Take 500 mg by mouth two times a day. Active ondansetron (ZOFRAN) 4 MG tablet Take 2 Tablets by mouth every 8 hours as needed. 30 Tablet 07/10/2019 Active senna (SENOKOT) 8.6 MG tabletIndications :Constipation Take 1 Tablet by mouth two times a day. Take while on narcotics. Hold for loose stools. Indications: Constipation 30 Tablet 07/16/2019 Active Additional Information Patient not taking.Reported on 08/26/2019 acetaminophen (TYLENOL) 500 MG tabletIndications :Pain Take 2 Tablets by mouth three times a day. 24 hour limit of acetaminophen (TYLENOL) is 4000mg. Indications: Pain 100 Tablet 07/16/2019 Active zolpidem (AMBIEN) 5 MG tabletIndications :Insomnia Take 5 mg by mouth at bedtime as needed for Sleep. Indications: Trouble Sleeping Active HYDROmorphone (DILAUDID) 2 MG tablet Take 1-2 Tablets by mouth every 4 hours as needed for Pain. Take one tab for pain rating 4-7, take two tabs for pain rating 8-10. 30 Tablet 07/17/2019 Active Additional Information Patient not taking.Reported on 08/26/2019 Active Problems Problem Noted Date Diagnosed Date Closed fracture of left proximal humerus 020 Overview: Added automatically from request for surgery [id number] TC (obstructive sleep apnea) 11/05/2018 Arthritis of [...] Comments Blood Pressure 147/63 07/17/2019 2:34 PM CRIME SPECIALIST Pulse 75 07/17/2019 2:34 PM CRIME SPECIALIST Temperature 36.7 ??C (98.1 ??F) 07/17/2019 2:34 PM CS T Respiratory Rate 18 07/17/2019 2:34 PM CRIME SPECIALIST Oxygen Saturation 99% 07/17/2019 2:34 PM CRIME SPECIALIST Inhaled Oxygen Concentration - - Weight 75 kg (165 lb 6.4 oz) 07/16/2019 10:19 AM CRIME SPECIALIST Height 165.1 cm (5' 5) 07/16/2019 10:19 AM CRIME SPECIALIST Body Mass Index 27.52 07/16/2019 10:19 AM CRIME SPECIALIST Plan of Treatment Health Maintenance Due Date Last Done Comments Diabetes: Eye Exam 1945 Diabetes: Foot Exam 1945 Diabetes: Lipid Panel 1945 Diabetes: Urine Microalbumin 1945 Hep C Screening (Preventive Services) 1945 Dexa 2012 Mammogram 10/11/2013 10/11/2012 Diabetes: HGBA1C 10/16/2019 07/17/2019, 05/21/2016 Diabetes: Creatinine 07/17/2020 07/17/2019, 05/05/2007, 02/04/2004 COVID-19 Vaccine ( season) 2023 08/04/2020, 07/14/2020 Influenza (#1) 2023 03/31/2020, 06/2018, 03/31/2017, Additional [...] this topic Medical Devices Implanted Type Area Bond Broker Device Identifier Shelf Expiration Date Model / Serial / Lot Chip Anita Brunner 30cc - [id number] Implanted:Qty : 1 on 07/16/2019 by Edelmira Rodriguez MD at [facility] DEVICE Left: SHOULDER Medtronic - [employer] 08/14/2023 [id number] / / [id number] Scr Star Lk Sftp 3.5x48 - [id number] Implanted:Qty : 1 on 07/16/2019 by Edelmira Rodriguez MD at [facility] DEVICE Left: HUMERUS MIDSHAFT DePuy Synthes - Trauma 212.120 / / Scr Cj Sftp Ss 3.5x32 F-Thrd - [id number] Implanted:Qty : 1 on 07/16/2019 by Edelmira Rodriguez MD at [facility] DEVICE Left: HUMERUS MIDSHAFT [employer]ynthes - Trauma 204.832 / / [id number] Plt Prox Hum 3.5x90 6h/3h - [id number] Implanted:Qty : 1 on 07/16/2019 by Edelmira Rodriguez MD at [facility] DEVICE Left: SHOULDER DePuy Synthes - Trauma 241.901 / / [id number] Scr Cj Sftp Ss 3.5x26 F-Thrd - [id number] Implanted:Qty : 1 on 07/16/2019 by Edelmira Rodriguez MD at [facility] DEVICE Left: HUMERUS MIDSHAFT DePuy Synthes - Trauma 204.826 / / Description:3.5mm 26mm Scr Cj Sftp Ss 3.5x28 F-Thrd - [id number] Implanted:Qty : 1 on 07/16/2019 by Edelmira Rodriguez MD at [facility] DEVICE Left: HUMERUS MIDSHAFT De[employer]uy Synthes - Trauma 204.828 / / Scr Star Lk Sftp 3.5x34 - [id number] Implanted:Qty : 1 on 07/16/2019 by Edelmira Rodriguez MD at [facility] DEVICE Left: HUMERUS MIDSHAFT [employer] Synthes - Trauma 212.113 / / Scr Star Lk Sftp 3.5x36 - [id number] Implanted:Qty : 2 on 07/16/2019 by Edelmira Rodriguez MD at [facility] DEVICE Left: HUMERUS MIDSHAFT De[employer]uy Synthes - Trauma 212.115 / / Scr Star Lk Sftp 3.5x40 - [id number] Implanted:Qty : 2 on 07/16/2019 by Edelmira Rodriguez MD at [facility] DEVICE Left: HUMERUS MIDSHAFT DePuy Synthes - Trauma 212.117 / / Scr Star Lk Sftp 3.5x45 - [id number] Implanted:Qty : 1 on 07/16/2019 by Edelmira Rodriguez MD at [facility] DEVICE Left: HUMERUS MIDSHAFT DePuy Synthes - Trauma 212.119 / / Scr Star Lk Sftp 3.5x46 - [id number] Implanted:Qty : 1 on 07/16/2019 by Edelmira Rodriguez MD at [facility] DEVICE Left: HUMERUS MIDSHAFT DePuy Synthes - Trauma 212.136 / / Procedures Procedure Name Priority Date/Time Associated Diagnosis Comments BASIC METABOLIC PANEL Routine 07/17/2019 7:49 AM CRIME SPECIALIST HGB A1C Routine 07/17/2019 7:49 AM CRIME SPECIALIST from Last 3 Months or Most Recently Relevant to Health Maintenance Results * (ABNORMAL) Basic Metabolic Panel (IN AM) (07/17/2019 7:49 AM CRIME SPECIALIST) Sodium 131(L) 136 - 145 mmol/L 07/17/2019 8:42 AM [facility] Potassium 3.3(L) 3.5 - 5.1 mmol/L 07/17/2019 8:42 AM [facility] Chloride 98 98 - 109 mmol/L 07/17/2019 8:42 AM CRIME SPECIALIST [facility] CO2 25 20 - 29 mmol/L 07/17/2019 8:42 AM [facility] Anion Gap 8 7 - 16 mmol/L 07/17/2019 8:42 AM [facility] Calcium 8.4 8.4 - 10.4 mg/dL 07/17/2019 8:42 AM [facility] BUN 16 7 - 26 mg/dL 07/17/2019 8:42 AM [facility] Creatinine 0.65 0.55 - 1.02 mg/dL 07/17/2019 8:42 AM [facility] GFR, Estimated >60 >60 mL/min/1.7 3m2 07/17/2019 8:42 AM [facility] GFR, Est If >60 >60 mL/min/1.7 3m2 07/17/2019 8:42 AM [facility] Glucose 187(H) 70 - 100 mg/dL 07/17/2019 8:42 AM [facility] Comment:The given reference range is for the fasting state. Non-fasting reference range for glucose is 70 - 180 mg/dL. Blood Venipuncture / Unknown 07/17/2019 7:49 AM CRIME SPECIALIST 07/17/2019 7:56 AM CRIME SPECIALIST Larisa Gaines MD LAB_1 Performing Organization Address [facility] Co de Phone Number [facility] [email or web address] * (ABNORMAL) Hemoglobin A1C Glycosylated (IN AM) (07/17/2019 7:49 AM CRIME SPECIALIST) Hemoglobin A1C 6.7(H) <=5.6 % 07/17/2019 1:39 PM CRIME SPECIALIST [facility] Blood Venipuncture / Unknown 07/17/2019 7:49 AM CRIME SPECIALIST 07/17/2019 7:56 AM CRIME SPECIALIST Narrative [facility] - 07/17/2019 1:39 PM CRIME SPECIALIST For patients not previously diagnosed with diabetes: 5.7-6.4%: Increased risk for diabetes 6.5% and greater: Diagnostic for diabetes For patients diagnosed with diabetes: <8.0%: Goal of therapy for ages 18-75 Clinicians may recommend a higher or lower goal for specific individuals. Larisa Gaines MD LAB_1 Performing Organization Address [facility] Co de Phone Number [facility] [employer] [place] [address] from Last 3 Months or Most Recently Relevant to Health Maintenance Advance Directives Latest Code Status on File Code Status Date Activated Date Inactivated Comments Full Code 07/16/2019 4:18 PM 07/17/2019 5:47 PM Care Teams Hatch Boss Relationship Specialty Start Date End Date Lina Meléndez MD [address] [facility] [address] PCP - General Internal Medicine 12/20/18
--- OUTSIDE RECORDS SUMMARY | 2023-08-16 07:09 | XMS_ITS | Continuity of Care Document ---
Author Name Unknown Organization [facility] Address [address] [place] [address] Phone Care Team Providers Care Curatorial Specialist Name Role Phone Alexandro HARRISON, Gurinder Unavailable [...] on Encounter [facility], [address], [place], [place], [id number] , tel:[phone] [facility] [place] Encounter for other specified surgical aftercare 4 Alexandro Montoya [facility], [address] [place] [address] [address], [place], [place], [id number] , . tel:[phone] Referring Provider: Corona Pretty, [address], [place], [address]. tel:[phone] [facility], [address], [place], [place], [id number] , [place] [phone] [facility] Encounter for other specified surgical aftercare 3 Alexandro Montoya [facility], [address] [place] [address], [place], [place], [id number] , [place]. [phone] Referring Provider: Corona Pretty [address], [place], [address]. tel:[phone] [facility], [address], [place], [place], [id number] , [place] [phone] [facility] Spinal stenosis, lumbar region with neurogenic claudication 3 Kimberly Finney. [address] [place] [address], [place], [place], [id number] , . [phone] Referring Provider: Corona Pretty [address], [place], [address]. tel:[phone] [facility], [address], [place], [place], [id number] , [place] tel: [phone] [facility] No Information 3 Mehbod Amir. [facility], [address], [place], [id number] , [place]. tel: [phone] [facility], [address], [place], [place], [address] , [place] tel: [phone] [facility] No Information 3 Kimberly Finney. [address], [place], [place], [id number] , [place]. tel: [phone] Referring Provider: Corona Pretty, [facility] [address] [facility], [place], [address]. tel:[phone] [facility], [address], [place], [id number] , [place] tel: [phone] [facility] No Information 3 Mehbod Amir. [facility], [address], [place], [id number] , [place]. tel: [phone] Referring Provider: Corona Pretty, [facility] [address] [facility], [place], [address]. tel:[phone] [facility], [address], [place], [id number] , [place] tel: [phone] [facility] No Information 3 Mehbod Amir. [facility], [address], [place], [id number] , [place]. tel: [phone] Office/Outpa tient Visit,Est, Mod [facility], [address], [place], [place], [id number] , [place] tel: [phone] [facility] Spinal stenosis, lumbar region with neurogenic claudication Sep- 3 Mehbod Amir. [facility], [address], [place], [place], [address] , [place]. tel:[phone] Referring Provider: Corona Pretty, [address], [place], [address]. tel:[phone] Office/Outpa tient Visit,New, Mod [facility], [address], [place], [place], [address] , [place] tel: [phone] [facility] Spinal stenosis, lumbar region with neurogenic claudication 2 Mehbod Amir. [facility], [address] [place] [address] [address], [place], [place], [address] , [place]. tel: [phone] Referring Provider: Corona Pretty, [address], [place], [address]. tel:[phone] Office/Outpa tient Visit,Est, Mod [facility], [address], [place], [place], [address] , [place] tel: [phone] [facility] Other forms of scoliosis, lumbar regionPost Op - Normal Follow-up 8 Mehbod Amir. [facility], [address] [place] [address] [address], [place], [place], [address] , [place]. tel:[phone] Referring Provider: Corona Pretty, [address], [place], [address]. tel:[phone] Office/Outpa tient Visit,Est, Low [facility], [address], [place], [place], [id number] , [place] tel: [phone] [facility] Encounter for other specified surgical aftercareArthrode sis status 8 Mehbod Amir. [facility], [address] [place] [address] [address], [place], [place], [address] , [place]. tel:[phone] Referring Provider: Corona Pretty, [address], [place], [address]. tel:[phone] Office/Outpa tient Visit,Est, Mod [facility], [address], [facility] [place] [address] , [place] tel: [phone] [facility] Spinal stenosis, lumbar region NOS Mehbod Amir. [facility], [address] [place] [address], [place], [place], [id number] , [place]. tel: [phone] Referring Provider: Corona Pretty, [facility], [place], [address]. tel:[phone] [facility], [address], [place], [place], [id number] , [place] tel: [phone] [facility] Encounter for follow-up examination after completed treatment for conditions other than malignant neoplasm Mehbod Amir. [facility], [address] [place] [address], [place], [place], [id number] , [place]. tel: [phone] Referring Provider: Corona Pretty [facility], [place], [address]. tel:[phone] [facility], [address], [place], [place], [id number] , [place] tel: [phone] [facility] Spinal stenosis, lumbar region 7 Kimberly Finney. [address] [place] [address], [place], [place], [id number] , [place]. tel: [phone] Referring Provider: Timoteo RiveraVisibiz [facility], [place], [address]. tel:[phone] [facility], [address], [place], [place], [address] , [place] tel: [phone] [facility] No Information Mehbod Amir. [facility], [address] [place] [address], [place], [place], [id number] , [place]. tel: [phone] Referring Provider: Corona Pretty [facility], [place], [address]. tel:[phone] Office/Outpa tient Visit,Est, Mod [facility], [address], [place], [place], [address] , [place] tel: [phone] [facility] Spinal stenosis, lumbar region Apr-0 3-201 7 Mehbod Amir. [facility], [address] [place] [address], [place], [place], [id number] , [place]. tel: [phone] Referring Provider: Corona Pretty, [address]ib[facility] [address], [place], [address]. tel:[phone] [facility], [address], [place], [place], [address] , [place] tel: [phone] [facility] Spinal stenosis, lumbar region Sep- 9 [address] [facility] [place] [address], [place], [place], [id number] , [place]. tel: [phone] Referring Provider: Corona Pretty [address] , [place], [address]. tel:[phone] [facility], [address], [place], [place], [id number] , [place] tel: [phone] [facility] Spinal stenosis, lumbar region Aug-0 8-201 6 Mehbod Amir. [facility], [address] [place] [address], [place], [place], [address] , [place]. tel: [phone] Referring Provider: Timoteo RiveraVisibiz [facility], [place], [address]. tel:[phone] [facility], [address], [place], [place], [address] , [place] tel: [phone] [facility] No Information Sergei- 4201 6 Mehbod Amir. [facility], [address] [place] [address], [place], [place], [id number] , [place]. tel: [phone] Referring Provider: Corona Pretty, [facility] [address] , [place], [address]. tel:[phone] Office/Outpa tient Visit,New, Mod [facility], [address], [place], [place], [address] , [place] tel:[phone] [facility] OverweightSpinal stenosis, lumbar region 201 6 Alexandro Paigeivana [facility], [address], [place], [place], [address] , [place]. [phone] Referring Provider: Corona Pretty, [address], [place], [address]. tel:[phone] Family History Family Member Type Diagnosis Age At Onset No Information Payers Payer name Insurance type Covered green party ID Valentin harrell(s) [employer] [facility] 2021 CI [id number] Social History Type Description Quantity Date Captured [...]
--- OUTSIDE RECORDS SUMMARY | 2023-08-16 07:09 | XMS_ITS | Clinical Summary ---
Author Name Unknown Organization [facility] Address [address] [place] [id number] Care Team Providers Care Seismograph Chief Name Role Phone Lina Meléndez MD Primary Care Provider [place] I Unavailable Allergies Active Allergy Reactions Criticality Noted Date Comments Adhesive Tape 05/08/2023 Cantaloupe Extract Allergy Skin Test 05/08/2023 Codeine Unknown,Nausea and Vomiting 02/02/2004 PN: LW Reaction: Nausea Corylus Anaphylaxis High 12/15/2015 Other Reaction(s): Throat closes and hives AKA [place] Gluten Meal GI Disturbance,Other (See Comments) 05/21/2016 Including wheat Liquid Adhesive Itching 12/18/2015 Maple Flavor Diarrhea 12/28/2017 Sulfa Antibiotics Anaphylaxis High 12/18/2015 Sulfites Rash Low 05/08/2023 Nuts Anaphylaxis High 07/26/2023 Trees High 05/08/2023 Other Reaction(s): stuffed nose Medications Medication Sig Dispensed Refills Start Date End Date Status insulin glargine (LANTUS VIAL) 100 UNIT/ML vial Inject 16 Units Subcutaneous every morning 0 11/05/2018 Active fluticasone (FLONASE) 50 MCG/ACT nasal spray [place] 2 sprays in nostril daily 0 Active valACYclovir (VALTREX) 500 MG tablet Take 500 mg by mouth as needed 0 Active eszopiclone (LUNESTA) 1 MG tablet Take 2 mg by mouth nightly as needed for sleep 0 Active carvedilol (COREG) 6.25 MG tablet Take 6.25 mg by mouth 2 times daily (with meals) 0 Active NIFEdipine ER OSMOTIC (PROCARDIA XL) 30 MG 24 hr tablet Take 30 mg by mouth daily 0 Active clopidogrel (PLAVIX) 75 MG tablet Take 75 mg by mouth daily 0 Active magnesium oxide 400 MG CAPS Take 1 capsule by mouth 2 times daily 0 Active atorvastatin (LIPITOR) 10 MG tablet Take 10 mg by mouth at bedtime 0 Active biotin 1000 MCG TABS tablet Take 5,000 mcg by mouth daily 0 Active gabapentin (NEURONTIN) 300 MG capsule Take 600 mg by mouth at bedtime 0 Active glucosamine-chondr oitin 500-400 MG CAPS per capsule Take 1 capsule by mouth daily 0 Active albuterol (PROAIR HFA/PROVENTIL HFA/VENTOLIN HFA) 108 (90 Base) MCG/ACT inhaler Inhale 1-2 puffs into the lungs every 4 hours as needed 0 12/20/2021 Active beclomethasone HFA (QVAR REDIHALER) 80 MCG/ACT inhaler Inhale 2 puffs into the lungs 2 times daily 0 01/18/2022 Active calcium carbonate-vitamin D (CALTRATE) 600-10 MG-MCG per tablet Take 1 tablet by mouth daily 0 Active acetaminophen (TYLENOL) 500 MG tablet Take 1,000 mg by mouth every 6 hours as needed for mild pain 0 Active augmented betamethasone dipropionate (DIPROLENE-AF) 0.05 % external ointment Apply topically 2 times daily as needed 0 Active folic acid (FOLVITE) 1 MG tablet Take 1 mg by mouth daily 0 Active letrozole (FEMARA) 2.5 MG tablet Take 2.5 mg by mouth daily 0 Active omeprazole (PRILOSEC) [address] capsule Take 20 mg by mouth daily 0 Active senna-docusate (SENOKOT-S/PERICOL LOREN) 8.6-50 MG tablet Take 1-4 tablets by mouth 2 times daily as needed for constipation 0 Active insulin aspart (NOVOLOG PEN) 100 UNIT/ML pen Inject 4-9 Units Subcutaneous 3 times daily (with meals) 0 Active oxyCODONE (ROXICODONE) 5 MG tabletIndications: Hemorrhoids, unspecified hemorrhoid type Take 1 tablet (5 mg) by mouth every 6 hours as needed for moderate to severe pain 12 tablet 0 08/04/2023 Active lidocaine (XYLOCAINE) 5 % external ointmentIndication s:Hemorrhoids, unspecified hemorrhoid type Apply topically as needed for moderate pain Apply a pea sized amount to the perianal skin four times daily as needed for pain. 30 g 3 08/04/2023 Active HUMALOG KWIKPEN 100 UNIT/ML soln Inject 1 units/carb unit Subcutaneous 3 times daily (before meals) Take 1 unit per carb choice (15gm) Take up to 6 units per meal, and 1 unit per snack. 0 12/19/2019 4 Discontinue d(Med Rec(No AVS / No eCancel)) Vitamin D3 (VITAMIN D-[address]) 25 mcg (1000 units) tablet Take 1 tablet by mouth daily 0 4 Discontinue d(Med Rec(No AVS / No eCancel)) pantoprazole (PROTONIX) 40 MG EC tablet Take 40 mg by mouth daily 0 4 Discontinue d(Med Rec(No AVS / No eCancel)) calcium carbonate 750 MG CHEW Take 750 mg by mouth daily 0 4 Discontinue d(Med Rec(No AVS / No eCancel)) Multiple Vitamins-Minerals (PRESERVISION AREDS 2 PO) Take 1 tablet by mouth daily 0 4 Discontinue d(Med Rec(No AVS / No eCancel)) Active Problems Problem Noted Date Diagnosed Date [...] Created by Conversion Osteoarthritis Overview: Created by [facility] Annotation: Dec 29 2006 3:46PM - Jojo Faustin: DJD Replacement Utility updated for latest IMO load Lower Back Pain Overview: Created by [facility] Annotation: Dec 29 2006 3:46PM - Jojo Faustin: MRI: small L5-S1 disc, degenerative changes, narrowing of bilateral neuroforamina L5-S1 and mass effect on both L5 nerves Stress Incontinence Overview: Created by Conversion Encounters Date Type Department Care Team Description 08/04/2023 7:38 AM DOCENT COORDINATOR Anesthesia Event [facility] [address] [place] [address] Marlon Rueda, DO 08/04/2023 7:30 AM DOCENT COORDINATOR - 08/04/2023 9:10 AM DOCENT COORDINATOR Surgery [facility] [address] [place] [address] Ever Zee MD INTAROPERATIVE Colonoscopy 08/04/2023 5:28 AM DOCENT COORDINATOR - 08/04/2023 11:05 AM DOCENT COORDINATOR Hospital Encounter [facility] PreOP/PostOP [address] [place] [address] Ever Zee MD Hemorrhoids, unspecified hemorrhoid type (Primary Dx) Discharge Disposition: Home or Self Care 08/04/2023 Travel 07/26/2023 Travel from Last 3 Months Immunizations Name Administration Dates Next Due DT (PEDS <7y) 01/22/2002 HepA, Unspecified 01/25/2002 Td,adult,historic,unspecified 01/22/2002 Zoster vaccine, live 03/11/2009 Social History Tobacco Use Types Packs/Day Years Used Date Smoking Tobacco: Never Smokeless Tobacco: Never Tobacco Cessation:Counseling Given: Not Answered Alcohol Use Standard Drinks/Week Comments Never 0 (1 standard drink = 0.6 oz pur e alcohol) Adolescent Education Answer Date Record ed Getting School Help Needed Not on file 04/12 Sex and Gender Information Value Date Recorded Sex Assigned at Female 02/24/2020 11:40 AM CDT Gender Identity Female 02/24/2020 11:40 AM CDT Sexual Orientation Not on file Last Filed Vital Signs Vital Sign Reading Time Taken Comments Blood Pressure 153/88 08/04/2023 11:00 AM DOCENT COORDINATOR Pulse 79 08/04/2023 11:00 AM DOCENT COORDINATOR Temperature 36.1 ??C (97 ??F) 08/04/2023 11:00 AM DOCENT COORDINATOR Respiratory Rate 18 08/04/2023 11:00 AM DOCENT COORDINATOR Oxygen Saturation 100% 08/04/2023 11:00 AM DOCENT COORDINATOR Inhaled Oxygen Concentration - - Weight 70.9 kg (156 lb 4.8 oz) 08/04/2023 6:02 A M DOCENT COORDINATOR Height 165.1 cm (5' 5) 07/26/2023 1:00 PM DOCENT COORDINATOR Body Mass Index 26.01 07/26/2023 1:00 PM DOCENT COORDINATOR Plan of Treatment Health Maintenance Due Date Last Done Comments ADVANCE CARE PLANNING 1945 ANNUAL REVIEW OF HM ORDERS 1947 ASTHMA ACTION PLAN 1947 ASTHMA CONTROL TEST [address]ONOGRAPHY 1945 DEXA 1945 DIABETIC FOOT EXAM 1945 EYE EXAM 1945 FIT 1945 FLEX SIG 1947 MICROALBUMIN 1947 sDNA (Cologuard) 1945 HEPATITIS C SCREENING 1965 RSV VACCINE ( & 60+) (1 - 1-dose 60+ series) 2007 FALL RISK ASSESSMENT 2012 MEDICARE ANNUAL WELLNESS VISIT 2012 A1C 03/19/2020 12/18/2019, 03/11/2009 LIPID 12/17/2020 12/18/2019 PHQ-2 (once per calendar year) 2023 DTAP/TDAP/TD IMMUNIZATION (2 - Td or Tdap) 08/22/2024 08/22/2014, 01/22/2002, 01/22/2002, Additional history exists COLONOSCOPY 08/04/2033 08/04/2023, 08/04/2023 COLORECTAL CANCER SCREENING 08/04/2033 Pneumococcal Vaccine: 65+ Years Completed 06/07/2018, 08/22/2014, 06/10/2010 ZOSTER IMMUNIZATION Completed 10/10/2018, 06/04/2018, 03/11/2009 INFLUENZA VACCINE Completed 03/15/2023, , 03/31/2021, Additional history exists COVID-19 Vaccine Completed 03/29/2023, 08/2022, 10/26/2022, Additional history exists HPV IMMUNIZATION Aged Out No longer e [...] Procedure Name Priority Date/Time Associated Diagnosis Comments GLUCOSE BY METER Routine 08/04/2023 9:05 AM DOCENT COORDINATOR SURGICAL PATHOLOGY EXAM Routine 08/04/2023 8:19 AM DOCENT COORDINATOR HEMORRHOIDECTOMY, INTERNAL 08/04/2023 7:38 AM DOCENT COORDINATOR Prolapsed internal hemorrhoids, grade 3 Screen for colon cancer COLONOSCOPY 08/04/2023 7:38 AM DOCENT COORDINATOR Prolapsed internal hemorrhoids, grade 3 Screen for colon cancer COLONOSCOPY Routine 08/04/2023 7:25 AM DOCENT COORDINATOR GLUCOSE BY METER Routine 08/04/2023 6:50 AM DOCENT COORDINATOR LAB RESULT - HIM SCAN 07/25/2023 12:00 AM DOCENT COORDINATOR EKG CARDIAC - HIM SCAN 07/25/2023 12:00 AM DOCENT COORDINATOR from Last 3 Months Results * (ABNORMAL) Glucose by meter (08/04/2023 9:05 AM DOCENT COORDINATOR) Only the most recent of2 resultswithin the time period is included. GLUCOSE BY METER POCT 180(H) 70 - 99 mg/dL 08/04/2023 9:13 AM DOCENT COORDINATOR [facility] LABORATORY POC Blood, Capillary BLOOD SPECIMEN / Unknown 08/04/2023 9:05 AM DOCENT COORDINATOR 08/04/2023 9:13 AM DOCENT COORDINATOR Ever Zee MD LAB - [facility] POCT LABORATORY [facility] Acute Care Lab [address] [facility] Lab (1st floor, no room number) [place] [address], [place] [phone] * Surgical Pathology Exam (08/04/2023 8:19 AM DOCENT COORDINATOR) Case Report Surgical Pathology Report ? Case: [id number] ? Authorizing Provider: ??Ever Zee MD ?? Collected: ? 08/04/2023 08:19 AM ? Ordering Location: ? [facility] ?? Received: ?08/04/2023 08:44 AM ? Main OR ? Pathologist: ? Mario Boo MD ? Specimen: ?Rectum, Right posterior hemorroid ? 08/07/2023 1:17 PM [facility] Final Diagnosis A(1). Anal/Rectal mucosa and soft tissue, Right posterior, excision: - Polypoid colonic mucosa with prominent underlying blood vessels consistent with hemorrhoidal tissue. - Negative for dysplasia or malignancy. 08/07/2023 1:17 PM [facility] Clinical Information Procedure: INTAROPERATIVE Colonoscopy WITH EXAM UNDER ANESTHESIA OF RECTUM WITH HEMORROIDECTOMY Pre-op Diagnosis: Prolapsed internal hemorrhoids, grade 3 [K64.2] Screen for colon cancer [Z12.11] Post-op Diagnosis: K64.2 - Prolapsed internal hemorrhoids, grade 3 [ICD-10-CM] Z12.11 - Screen for colon cancer [ICD-10-CM] 08/07/2023 1:17 PM [facility] Gross Description A(1). Rectum, Right posterior hemorroid: The specimen is received in formalin, labeled with the patient's name, medical record number and other identifying information designated right posterior hemorrhoid. It consists of a 4.0 x 2.7 x 1.3 cm irregular shaped unoriented mucosal excision (cauterized resection margin inked black). The mucosal surface is red-goetz with 3, 0.3 x 0.3 cm, 0.7 x 0.5 cm and 3.5 x 1.2 cm red-goetz polyps. The larger two polyps abut the peripheral edge of the specimen, and the smaller polyp is 0.2 cm from the peripheral edge of the specimen. The specimen is sectioned from one end to opposing into 10 pieces, displays all 3 polyps remain superficial. The smallest polyp is located 0.3 cm from the cauterized resection margin (inked black), the second polyp and the largest polyp both abut the cauterized resection margin (inked black). The specimen is submitted entirely and sequentially as follows: A1-unoriented end of specimen A2-A5-body of specimen A6-opposing unoriented end of specimen (MARTIR Jones (ASCP) 08/07/2023 1:17 PM [facility] Microscopic Description Microscopic examination was performed. 08/07/2023 1:17 PM [facility] Performing Labs The technical component of this testing was completed at [facility] 08/07/2023 1:17 PM DOCENT COORDINATOR LABORATORY Case Images 08/07/2023 1:17 PM DOCENT COORDINATOR LABORATORY Tissue RECTUM PART / Unknown 08/04/2023 8:19 AM DOCENT COORDINATOR 08/04/2023 8:44 AM DOCENT COORDINATOR Ever VICTOR - [facility] LABORATORY [facility] Acute Care Lab [address] [facility] Lab (1st floor, no room number) [place] [address], [facility] [phone] * COLONOSCOPY (08/04/2023 7:25 AM DOCENT COORDINATOR) [facility] Signature COLONOSCOPY [facility] Patient Name: Maryam Cortez ?Procedure Date: 08/04/2023 7:25 AM ? Date of : 1945 ?Admit Type: Outpatient Age: 77 ? Gender: Female Attending MD: EVER ZEE MD, ??Total Sedation Time: See anesthesia note. Instrument Name: 218 - Pediatric Colonoscope Procedure: ?Colonoscopy Indications: ?Screening for colorectal malignant neoplasm Providers: ?EVER ZEE MD (Doctor) Referring MD: ? Medicines: ?Propofol per Anesthesia Complications: ?No immediate complications. Procedure: ?Pre-Anesthesia Assessment: ?- Prior to the procedure, a History and Physical ?was performed, and patient medications and ?allergies were reviewed. The patient's tolerance of ?previous anesthesia was also reviewed. The risks ?and benefits of the procedure and the sedation ?options and risks were discussed with the patient. ?All questions were answered, and informed consent ?was obtained. Prior Anticoagulants: The patient has ?taken Plavix (clopidogrel), last dose was 6 days ?prior to procedure. ASA Grade Assessment: III - A ?patient with severe systemic disease. After ?reviewing the risks and benefits, the patient was ?deemed in satisfactory condition to undergo the ?procedure. ?- Prior to the procedure, a History and Physical ?was performed, and patient medications, allergies ?and sensitivities were reviewed. The patient's ?tolerance of previous anesthesia was reviewed. ?- The risks and benefits of the procedure and the ?sedation options and risks were discussed with the ?patient. All questions were answered and informed ?consent was obtained. ?- Patient identification and proposed procedure ?were verified prior to the procedure by the ?physician. The procedure was verified in the ?pre-procedure area. ?- Pre-procedure physical examination revealed no ?contraindication s to sedation. ?- The heart rate, respiratory rate, oxygen ?saturations, blood pressure, adequacy of pulmonary ?ventilation, and response to care were monitored ?throughout the procedure. ?- The physical status of the patient was ?re-assessed after the procedure. ?After obtaining informed consent, the colonoscope ?was passed under direct vision. Throughout the ?procedure, the patient's blood pressure, pulse, and ?oxygen saturations were monitored continuously. The ?Olympus, Pediatric Colonoscope, Model # [id number]-H190DL, ?Censitrac #[id number] was introduced through the ?anus with the intention of advancing to the cecum. ?The scope was advanced to the descending colon ?before the procedure was aborted. Medications were ?given. The colonoscopy was technically difficult ?and complex due to unsatisfactory bowel prep. The ?patient tolerated the procedure well. The quality ?of the bowel preparation was unsatisfactory. ? Findings: ? Hemorrhoids were found on perianal exam. ? The digital rectal exam was normal. Pertinent negatives include no ? palpable rectal lesions. ? Extensive amounts of stool was found in the rectum, in the sigmoid colon ? and in the descending colon, interfering with visualization. ? Given the amount of liquid and solid stool the scope was aborted. ? Impression: ? - Preparation of the colon was unsatisfactory. ?- Hemorrhoids found on perianal exam. ?- Stool in the rectum, in the sigmoid colon and in ?the descending colon. ?- No specimens collected. Recommendation: ? - Discharge patient to home. ?- Resume previous diet. ?- Resume Plavix (clopidogrel) at prior dose in 3 ?days. Refer to managing physician for further ?adjustment of therapy. ?- Return to my office as previously scheduled. ? Procedure Code(s): ? --- Professional --- ? G0121, 53, Colorectal cancer screening; colonoscopy on individual not ? meeting criteria for high risk CPT copyright 2021 [employer]. All rights reserved. The codes documented in this report are preliminary and upon labor economics professor review may be revised to meet current compliance requirements. EVER ZEE MD 08/04/2023 8:47:30 AM I was physically present for the entire viewing portion of the exam. EVER ZEE MD Number of Addenda: 0 Note Initiated On: 08/04/2023 7:25 AM MRN: ?[id number] Procedure Date: ? 08/04/2023 7:25:15 AM Total Procedure Duration: 0 hours 3 minutes 40 seconds Estimated Blood Loss: ? Scope In: 7:47:47 AM Scope Out: 7:51:27 AM RADIOLOGY RESULTS 08/04/2023 7:25 AM DOCENT COORDINATOR Ever Zee MD PROCEDURES RADIOLOGY RESULTS * LAB RESULT - HIM SCAN (07/25/2023 12:00 AM DOCENT COORDINATOR) 07/25/2023 Provider Outside NON-BEAKER LAB TE STING * EKG CARDIAC - HIM SCAN (07/25/2023 12:00 AM DOCENT COORDINATOR) 07/25/2023 Provider Outside ECG ORDERABLES from Last 3 Months Care Teams Seismograph Chief Relationship Specialty Start Date End Date Lina Meléndez MD [facility] [address] [place] [address] PCP - General Internal Medicine 12/26/14 Rhoda Sarabia [address] [facility] [address] [place] [address] [employer] St[employer] Machine Operator Dietitian, Registered 02/20/20
--- OUTSIDE RECORDS SUMMARY | 2023-08-16 07:09 | XMS_ITS | Encounter Summary ---
Author Name Unknown Organization [facility] Address [address] [facility] [place] [address] Care Team Providers Care Assistant To The Vice President Name Role Phone Lina Meléndez MD Primary Care Provider Rhoda Sarabia I Unavailable Reason for Visit * Auth/Cert (Routine) Specialty Diagnoses / Procedures Referred By Caroline clement Referred To Contact Surgery Diagnoses Prolapsed internal hemorrhoids, grade 3 Screen for colon cancer Prolapsed internal hemorrhoids, grade 3 [K64.2] Screen for colon cancer [Z12.11] Procedures UT COLONOSCOPY W/WO BRUSH/WASH UT HEMORRHOIDECTOMY W BANDING/LIGATION UT LIGATION INTERNAL HEMORRHOID, SINGLE, W/O IMAGING UT LIGATION INTERNAL HEMORRHOID, 2 OR MORE, W/O IMAGING INTAROPERATIVE Colonoscopy WITH EXAM UNDER ANESTHESIA OF RECTUM WITH HEMORROIDECTOMY [facility] [address] [place] [address] Referral ID Status Reason Start Date Expiration Date Visits Re quested Visits Authorized [id number] 1 1 Encounter Details Date Type Department Care Team (Late st Contact Info) Description 08/04/2023 7:38 AM SUPERVISOR ENDLESS TRACK VEHICLE Anesthesia Event [facility] [address] [place] [address] Marlon Rueda, DO [facility] ANESTHESIA [id number] [place], [place] [id number] Anesthesia Record Procedure Summary Procedure Name Responsible Anesthesiologist Anesthesia Start Time Anesthesia Stop Time INTAROPERATIVE Colonoscopy (Rectum) Marybeth Marlon Brook, DO 08/04/23 0738 08/04/23 0843 Events Date Time Event Comment 08/04/2023 0642 0713 PHYSICIAN CHIEF OF PATHOLOGY Ready for Procedure 0738 An Start 0738 An Start Data 0739 AN REASSESS I attest that I have identified and re-evaluated the patient immediately before the induction of anesthesia and I am satisfied that the anesthetic plan is suitable for the patient's condition and procedure. The first vital signs recorded are pre- induction. Toño Zuniga APRN CRNA 0740 MD Present 0742 Anesthesia Ready for Procedu re 0816 MD Present 0837 an stop data 0840 Present 0843 An Stop Electronically signed by Toño Zuniga APRN PHYSICIAN CHIEF OF PATHOLOGY on August 04, 2023 8:43 AM Meds Name Total fentaNYL 50 mcg/mL 50 mcg lidocaine 2% 15 mg propofol 10 mg/mL 50 mg propofol drip mcg/kg/min 333.7 mg phenylephrine (ANYA-SYNEPHRINE) injection 200 mcg ondansetron 2 mg/mL 4 mg glycopyrrolate 0.2 mg/mL 0.2 mg lactated ringers infusion 800 mL * Agents Name NO HELIOX O2 N2O Air Exp Sevoflurane Exp Isoflurane Exp Desflurane Exp N2O O2 Delivery Device Ins Sevoflurane Ins Isoflurane Ins Desflurane O2 Auxiliary * Blood No blood administrations on file. Lines, Drains, and Airways Type Details Placement Removal Incision/Surgical Site 08/04/23; 0837; Sacrum 0837 by Damian Broussard RN Peripheral IV 08/04/23; 0651; 22 G ; Left, Posterior; Hand; Chlorhexidine; 2; Tolerated well 08/04/23 0651 by Libby Jaime RN 08/04/23 1112 by Jorje Kendall RN documented in this encounter Social History Tobacco Use Types Packs/Day Years Used Date Smoking Tobacco: Never Smokeless Tobacco: Never Alcohol Use Standard Drinks/Week Comments Never 0 (1 standard drink = 0.6 oz pur e alcohol) Adolescent Education Answer Date Record ed Getting School Help Needed Not on file 04/12 Sex and Gender Information Value Date Recorded Sex Assigned at Female 02/24/2020 11:40 AM CDT Gender Identity Female 02/24/2020 11:40 AM CDT Sexual Orientation Not on file documented as of this encounter OR Notes * Anesthesia Postprocedure Evaluation - Marlon Rueda DO - 08/04/2023 9:36 AM CST Patient: Maryam Cortez Procedure: Procedure(s): INTAROPERATIVE Colonoscopy WITH EXAM UNDER ANESTHESIA OF RECTUM WITH HEMORROIDECTOMY Anesthesia Type: MAC Note: Postop Pain Control: Uneventful Sign Out: Well controlled pain PONV: No Neuro/Psych: Uneventful Sign Out: Acceptable/Baseline neuro status Airway/Respiratory: Sign Out: Acceptable/Baseline resp. status CV/Hemodynamics: Sign Out: Acceptable CV status Other NRE: DID A NON-ROUTINE EVENT OCCUR? Last vitals: Vitals Value Taken Time BP 127/76 08/04/23 0850 Temp 97.2 ??F (36.2 ??C) 08/04/23 0842 Pulse 85 08/04/23 0850 Resp SpO2 100 % 08/04/23 0850 Vitals shown include unfiled device data. Electronically Signed By: Marlon Rueda DO August 04, 2023 9:36 AM RVISOR ENDLESS TRACK VEHICLE * Anesthesia Postprocedure Evaluation - Marlon Rueda DO - 08/04/2023 9:36 AM CST Patient: Maryam Cortez Procedure: Procedure(s): INTAROPERATIVE Colonoscopy WITH EXAM UNDER ANESTHESIA OF RECTUM WITH HEMORROIDECTOMY Anesthesia Type: MAC Note: Postop Pain Control: Uneventful Sign Out: Well controlled pain PONV: No Neuro/Psych: Uneventful Sign Out: Acceptable/Baseline neuro status Airway/Respiratory: Sign Out: Acceptable/Baseline resp. status CV/Hemodynamics: Sign Out: Acceptable CV status Other NRE: DID A NON-ROUTINE EVENT OCCUR? Last vitals: Vitals Value Taken Time BP 127/76 08/04/23 0850 Temp 97.2 ??F (36.2 ??C) 08/04/23 0842 Pulse 85 08/04/23 0850 Resp SpO2 100 % 08/04/23 0850 Vitals shown include unfiled device data. Electronically Signed By: Marlon Rueda DO August 04, 2023 9:36 AM RVISOR ENDLESS TRACK VEHICLE * Anesthesia Preprocedure Evaluation - Marlon Rueda DO - 08/04/2023 6:41 AM CST Anesthesia Pre-Procedure Evaluation Patient: Maryam Cortez : 1945 Procedure : Procedure(s): INTAROPERATIVE Colonoscopy WITH EXAM UNDER ANESTHESIA OF RECTUM WITH HEMORROIDECTOMY Past Medical History: Diagnosis Date Arthritis Bladder leak Cerebral artery occlusion with cerebral infarction (H) No residual Diabetes (H) Hemorrhoids, unspecified hemorrhoid type High cholesterol Hypertension Sleep apnea Past Surgical History: Procedure Laterality Date LAT LUMBAR SPINE FUSION BIOPSY OF BREAST, NEEDLE CORE Description: Biopsy Breast Percutaneous Needle Core; Recorded: 12/29/2006; Comments: R breast Neg HC KNEE SCOPE, DIAGNOSTIC Description: Arthroscopy Knee Right; Proc Date: 12/24/1994; Comments: repair torn cartilage R knee HC REVISE MEDIAN N/CARPAL TUNNEL SURG Description: Neuroplasty Decompression Median Nerve At Carpal Tunnel; Recorded: 01/16/2008; Comments: Left IR LUMBAR EPIDURAL STEROID INJECTION 07/28/2006 IR LUMBAR EPIDURAL STEROID INJECTION 08/18/2006 SHOULDER SURGERY Left Repaired [facility] CERV SPINE FUSN,ANTER,BELOW C2 Description: Cervical Vertebral Fusion; Recorded: 12/29/2006; [facility] TOTAL ABDOM HYSTERECTOMY Description: Hysterectomy; Recorded: 01/16/2008; Comments: partial, has R ovary [facility] TOTAL KNEE ARTHROPLASTY Description: Total Knee Arthroplasty; Proc Date: 01/25/2004; Comments: right 2003, LEFT 05/02 Allergies Allergen Reactions Corylus Anaphylaxis Other Reaction(s): Throat closes and hives AKA Kylah Sulfa Antibiotics Anaphylaxis Tree Nuts [Nuts] Anaphylaxis Trees Other Reaction(s): stuffed nose Adhesive Tape Cantaloupe Extract Allergy Skin Test Codeine Unknown and Nausea and Vomiting PN: LW Reaction: Nausea Gluten Meal GI Disturbance and Other (See Comments) Including wheat Liquid Adhesive Itching Maple Flavor Diarrhea Sulfites Rash Social History Tobacco Use Smoking status: Never Smokeless tobacco: Never Substance Use Topics Alcohol use: Never Wt Readings from Last 1 Encounters: 08/04/23 70.9 kg (156 lb 4.8 oz) Anesthesia Evaluation ROS/MED HX ENT/Pulmonary: (+) sleep apnea, asthma Neurologic: (+) CVA, Cardiovascular: (+) hypertension- - - - - METS/Exercise Tolerance: >4 METS Hematologic: - neg hematologic ROS Musculoskeletal: - neg musculoskeletal ROS GI/Hepatic: (+) GERD, Renal/Genitourinary: - neg Renal ROS Endo: (+) type II DM, Psychiatric/Substance Use: - neg psychiatric ROS Infectious Disease: - neg infectious disease ROS Malignancy: - neg malignancy ROS Other: - neg other ROS Physical Exam Airway Mallampati: II Neck ROM: full Respiratory Devices and Support Dental Cardiovascular cardiovascular exam normal Rhythm and rate: regular Pulmonary pulmonary exam normal OUTSIDE LABS: CBC: No results found for: WBC, HGB, HCT, PLT BMP: No results found for: NA, POTASSIUM, CHLORIDE, CO2, BUN, CR, GLC COAGS: No results found for: PTT, INR, FIBR POC: Lab Results Component Value Date BGM 190 (H) 08/12/2009 HEPATIC: No results found for: ALBUMIN, PROTTOTAL, ALT, AST, GGT, ALKPHOS, BILITOTAL,BILIDIRECT, KATIE OTHER: Lab Results Component Value Date A1C 7.3 (A) 12/18/2019 Anesthesia Plan ASA Status: 3 Anesthesia Type: MAC. Induction: Intravenous, Propofol. Consents Anesthesia Plan(s) and associated risks, benefits, and realistic alternatives discussed. Questions answered and patient/automotive sales representative(s) expressed understanding. - Discussed: - Discussed with: Patient Postoperative Care Pain management: IV analgesics, Oral pain medications, Multi-modal analgesia. PONV prophylaxis: Ondansetron (or other 5HT-3), Dexamethasone or Solumedrol Comments: Marlon Rueda DO I have reviewed the pertinent notes and labs in the chart from the past 30 days and (re)examined the patient. Any updates or changes from those notes are reflected in this note. # Drug Induced Platelet Defect: home medication list includes an antiplatelet medication # Overweight: Estimated body mass index is 26.01 kg/m?? as calculated from the following: Height as of this encounter: 1.651 m (5' 5). Weight as of this encounter: 70.9 kg (156 lb 4.8 oz). RVISOR ENDLESS TRACK VEHICLE documented in this encounter Miscellaneous Notes * Anesthesia Care Transfer Note - Toño Zuniga APRN CRNA - 08/04/2023 8:43 AM CST Patient: Maryam Cortez Procedure: Procedure(s): INTAROPERATIVE Colonoscopy WITH EXAM UNDER ANESTHESIA OF RECTUM WITH HEMORROIDECTOMY Diagnosis: Prolapsed internal hemorrhoids, grade 3 [K64.2] Screen for colon cancer [Z12.11] Diagnosis Additional Information: No value filed. Anesthesia Type: MAC Note: Oropharynx: oropharynx clear of all foreign objects Level of Consciousness: awake Oxygen Supplementation: room air Independent Airway: airway patency satisfactory and stable Dentition: dentition unchanged Vital Signs Stable: post-procedure vital signs reviewed and stable Report to RN Given: handoff report given Patient transferred to: PACU Comments: Patient awake/alert. To PACU on RA ventilating well. VSS. Report given. Handoff Report: Identifed the Patient, Identified the Reponsible Provider, Reviewed the pertinent medical history, Discussed the surgical course, Reviewed Intra-OP anesthesia mangement and issues during anesthesia, Set expectations for post-procedure period and Allowed opportunity for questions andacknowledgement of understanding Vitals: Vitals Value Taken Time BP 118/68 08/04/23 0840 Temp 97.2 ??F (36.2 ??C) 08/04/23 0842 Pulse 82 08/04/23 0840 Resp 16 08/04/23 0840 SpO2 100 % 08/04/23 0842 Vitals shown include unfiled device data. Electronically Signed By: Toño Zuniga APRN CRNA August 04, 2023 8:43 AM RVISOR ENDLESS TRACK VEHICLE documented in this encounter Plan of Treatment Not on file documented as of this encounter Visit Diagnoses Not on filedocumented in this encounter Administered Medications Inactive Administered Medications - up to 3 most recent administrations Medication Order MAR Action Action Date Dose Rate Site fentaNYL (PF) (SUBLIMAZE) injection Intravenous, PRN, Administer over 3-5 Minutes, Starting on Mon08/04/23 at 0744, Anesthesia Intra-op $Given 08/04/2023 7:57 AM SUPERVISOR ENDLESS TRACK VEHICLE 25 mcg $Given 08/04/2023 7:44 AM SUPERVISOR ENDLESS TRACK VEHICLE 25 mcg glycopyrrolate (ROBINUL) injection Intravenous, PRN, Administer over 1-2 Minutes, Starting on Mon08/04/23 at 0744, Anesthesia Intra-op $Given 08/04/2023 7:44 AM SUPERVISOR ENDLESS TRACK VEHICLE 0.2 mg lactated ringers infusion at 10 mL/hr, Intravenous, CONTINUOUS, IF patient NOT on dialysis., Pre-procedure, Starting on Mon08/04/23 at 0600, Until Mon08/04/23 at 0840 Restarted 08/04/2023 7:38 AM SUPERVISOR ENDLESS TRACK VEHICLE $New Bag 08/04/2023 6:52 AM SUPERVISOR ENDLESS TRACK VEHICLE 10 mL/hr lidocaine 2% injection (MDV) Intravenous, PRN, Starting on Mon08/04/23 at 0740, Anesthesia Intra-op $Given 08/04/2023 7:40 AM SUPERVISOR ENDLESS TRACK VEHICLE 15 mg ondansetron (ZOFRAN) injection Intravenous, PRN, Administer over 2-5 Minutes, Starting on Mon08/04/23 at 0809, Anesthesia Intra-op $Given 08/04/2023 8:09 AM SUPERVISOR ENDLESS TRACK VEHICLE 4 mg phenylephrine (ANYA-SYNEPHRINE) injection Intravenous, CONTINUOUS PRN, Starting on Mon08/04/23 at 0817, Anesthesia Intra-op $Bolus 08/04/2023 8:22 AM SUPERVISOR ENDLESS TRACK VEHICLE 100 mcg $New Bag 08/04/2023 8:17 AM SUPERVISOR ENDLESS TRACK VEHICLE 100 mcg propofol (DIPRIVAN) infusion Intravenous, CONTINUOUS PRN, Starting on Mon08/04/23 at 0741, Anesthesia Intra-op Rate/Dose Change 08/04/2023 8:16 AM SUPERVISOR ENDLESS TRACK VEHICLE 70 mcg/kg/min 29.82 mL/hr Rate/Dose Change 08/04/2023 8:13 AM SUPERVISOR ENDLESS TRACK VEHICLE 80 mcg/kg/min 34.0 8 mL/hr Rate/Dose Change 08/04/2023 7:48 AM SUPERVISOR ENDLESS TRACK VEHICLE 100 mcg/kg/min 42. 6 mL/hr propofol (DIPRIVAN) injection 10 mg/mL vial Intravenous, PRN, Starting on Mon08/04/23 at 0758, Anesthesia Intra-op $Given 08/04/2023 7:58 AM SUPERVISOR ENDLESS TRACK VEHICLE 25 mg $Given 08/04/2023 7:44 AM SUPERVISOR ENDLESS TRACK VEHICLE 25 mg documented in this encounter Care Teams Assistant To The Vice President Relationship Specialty Start Date End Date Lina Meléndez MD [facility] & [address] [address] PCP - General Internal Medicine 12/26/14 Rhoda Sarabia I [address] [place] [id number] Roofing Layer Dietitian, Registered 02/20/20 documented as of this encounter
--- OUTSIDE RECORDS SUMMARY | 2023-08-16 07:09 | XMS_ITS | Encounter Summary ---
Author Name Unknown Organization [facility] Address [address] [place] [id number] Care Team Providers Care Flight Readiness Technician Name Role Phone Lina Meléndez MD Primary Care Provider [place], Dojessie Shivani Unavailable Reason for Visit * Auth/Cert (Routine) Specialty Diagnoses / Procedures Referred By Caroline clement Referred To Contact Surgery Diagnoses Prolapsed internal hemorrhoids, grade 3 Screen for colon cancer Prolapsed internal hemorrhoids, grade 3 [K64.2] Screen for colon cancer [Z12.11] Procedures IA COLONOSCOPY W/WO BRUSH/WASH IA HEMORRHOIDECTOMY W BANDING/LIGATION IA LIGATION INTERNAL HEMORRHOID, SINGLE, W/O IMAGING IA LIGATION INTERNAL HEMORRHOID, 2 OR MORE, W/O IMAGING INTAROPERATIVE Colonoscopy WITH EXAM UNDER ANESTHESIA OF RECTUM WITH HEMORROIDECTOMY Periop Services [address] [place] [address] Referral ID Status Reason Start Date Expiration Date Visits Re quested Visits Authorized [id number] 1 1 Encounter Details Date Type Department Care Team (Late st Contact Info) Description 08/04/2023 7:30 AM PLATFORM ARCHITECT - 08/04/2023 9:10 AM PLATFORM ARCHITECT Surgery [facility] PeriOp Services [address] [place] [id number] Ever Zee MD COLO [facility] RECTAL SURGERY [id number] [id number] INTAROPERATIVE Colonoscopy Surgery Details Date/Time Status Location OR Service Patient Class Case Class Case Type Trauma Case? 08/04/23 7:30 AM Posted RH OR OR 03 [place] Elective Panel 1 Procedure LRB Anes Op Region Wound Class Comments INTAROPERATIVE Colonoscopy N/A MAC Rectum II- Clean Contaminated WITH EXAM UNDER ANESTHESIA O F RECTUM WITH HEMORROIDECTOMY N/A MAC Rectum II-Clean Cont aminated Surgeon Surgeon Role Service Panel Ever Zee MD Primary [place] 1 documented in this encounter Social History Tobacco [...] Sign Reading Time Taken Comments Blood Pressure 135/83 08/04/2023 8:55 AM PLATFORM ARCHITECT Pulse 86 08/04/2023 9:10 AM PLATFORM ARCHITECT Temperature 36.2 ??C (97.2 ??F) 08/04/2023 8:42 AM CS T Respiratory Rate 16 08/04/2023 6:02 AM PLATFORM ARCHITECT Oxygen Saturation 100% 08/04/2023 9:10 AM PLATFORM ARCHITECT Inhaled Oxygen Concentration - - Weight 70.9 kg (156 lb 4.8 oz) 08/04/2023 6:02 A M PLATFORM ARCHITECT Height 165.1 cm (5' 5) 07/26/2023 1:00 PM PLATFORM ARCHITECT Body Mass Index 26.01 07/26/2023 1:00 PM PLATFORM ARCHITECT documented in this encounter Discharge Instructions * Discharge Instructions* Jorje Kendall RN - 08/04/2023 6:57 AM PLATFORM ARCHITECT Maximum acetaminophen (Tylenol) dose from all sources should not exceed 4 grams (4000 mg) per day. You last had 975 mg at 6:56 AM; do not take Tylenol products again until after 12:[address] VIVIENNE ZEE M.D. CLINIC PHONE NUMBER: [phone] [facility] FORM ARCHITECT * Attachments The following attachments cannot be sent through Care Everywhere. * (s) After Anesthesia (Sleep Medicine) (Malawian) documented in this encounter Medications at Time of Discharge Medication Sig Dispensed Refills Start Date End Date acetaminophen (TYLENOL) 500 MG tablet Take 1,000 mg by mouth every 6 hours as needed for mild pain 0 albuterol (PROAIR HFA/PROVENTIL HFA/VENTOLIN HFA) 108 (90 Base) MCG/ACT inhaler Inhale 1-2 puffs into the lungs every 4 hours as needed 0 12/20/2021 atorvastatin (LIPITOR) 10 MG tablet Take 10 mg by mouth at bedtime 0 augmented betamethasone dipropionate (DIPROLENE-AF) 0.05 % external ointment Apply topically 2 times daily as needed 0 beclomethasone HFA (QVAR REDIHALER) 80 MCG/ACT inhaler Inhale 2 puffs into the lungs 2 times daily 0 01/18/2022 biotin 1000 MCG TABS tablet Take 5,000 mcg by mouth daily 0 calcium carbonate-vitamin D (CALTRATE) 600-10 MG-MCG per tablet Take 1 tablet by mouth daily 0 carvedilol (COREG) 6.25 MG tablet Take 6.25 mg by mouth 2 times daily (with meals) 0 clopidogrel (PLAVIX) 75 MG tablet Take 75 mg by mouth daily 0 eszopiclone (LUNESTA) 1 MG tablet Take 2 mg by mouth nightly as needed for sleep 0 fluticasone (FLONASE) 50 MCG/ACT nasal spray Newberry 2 sprays in nostril daily 0 folic acid (FOLVITE) 1 MG tablet Take 1 mg by mouth daily 0 gabapentin (NEURONTIN) 300 MG capsule Take 600 mg by mouth at bedtime 0 glucosamine-chondroitin 500-400 MG CAPS per capsule Take 1 capsule by mouth daily 0 insulin aspart (NOVOLOG PEN) 100 UNIT/ML pen Inject 4-9 Units Subcutaneous 3 times daily (with meals) 0 insulin glargine (LANTUS VIAL) 100 UNIT/ML vial Inject 16 Units Subcutaneous every morning 0 11/05/2018 letrozole (FEMARA) 2.5 MG tablet Take 2.5 mg by mouth daily 0 lidocaine (XYLOCAINE) 5 % external ointmentIndications:Hem orrhoids, unspecified hemorrhoid type Apply topically as needed for moderate pain Apply a pea sized amount to the perianal skin four times daily as needed for pain. 30 g 3 08/04/2023 magnesium oxide 400 MG CAPS Take 1 capsule by mouth 2 times daily 0 NIFEdipine ER OSMOTIC (PROCARDIA XL) 30 MG 24 hr tablet Take 30 mg by mouth daily 0 omeprazole (PRILOSEC) [address] capsule Take 20 mg by mouth daily 0 oxyCODONE (ROXICODONE) 5 MG tabletIndications:Hemor rhoids, unspecified hemorrhoid type Take 1 tablet (5 mg) by mouth every 6 hours as needed for moderate to severe pain 12 tablet 0 08/04/2023 senna-docusate (SENOKOT-S/PERICOLACE) 8.6-50 MG tablet Take 1-4 tablets by mouth 2 times daily as needed for constipation 0 valACYclovir (VALTREX) 500 MG tablet Take 500 mg by mouth as needed 0 documented as of this encounter Progress Notes * Libby Jaime RN - 08/04/2023 5:50 AM CST Patient had Medtronic bladder stimulator. Patient reported pre operatively that she left the remote home. Patient has brief on. Libby Jaime RN on 08/04/2023 at 5:51 AM FORM ARCHITECT documented in this encounter Miscellaneous Notes * Brief Op Note - Ever Zee MD - 08/04/2023 8:48 AM CST [facility] Brief Operative Note Pre-operative diagnosis: Prolapsed internal hemorrhoids, grade 3 [K64.2] Screen for colon cancer [Z12.11] Post-operative diagnosis Same as pre-operative diagnosis Procedure: INTAROPERATIVE Colonoscopy, N/A - Rectum WITH EXAM UNDER ANESTHESIA OF RECTUM WITH HEMORROIDECTOMY, N/A - Rectum Surgeon: Surgeon(s) and Role: * Ever Zee MD - Primary Anesthesia: MAC Estimated Blood Loss: 5 mL from 08/04/2023 7:38 AM to 08/04/2023 8:38 AM Drains: None Specimens: ID Type Source Tests Collected by Time Destination 1 : Right posterior hemorroid Tissue Rectum SURGICAL PATHOLOGY EXAM Ever Zee MD 08/04/2023 8:19 AM Findings: Colonoscopy aborted due to poor prep . Right posterior hemorrhoid excised. Complications: None. Implants: * No implants in log * FORM ARCHITECT * Op Note - Ever Zee MD - 08/04/2023 7:47 AM CST DATE OF SURGERY: 08/04/2023 PREOPERATIVE SRAA/GNOSIS: Screening for colorectal cancer Symptomatic prolapse the right lateral hemorrhoid POSTOPERATIVE DIAGNOSIS: Same OPERATION PERFORMED: Aborted intraoperative colonoscopy Exam under anesthesia Excision of grade 4 hemorrhoid in the right lateral position SURGEON: Kiera Zee MD ANESTHESIA: MAC. INDICATION: Maryam Cortez is a 77 year old female who presents with a history of intermittent painless rectal bleeding and tissue prolapse. She is also due for screening colonoscopy. She will now undergo excisional hemorrhoidectomy and an intraoperative colonoscopy. OPERATIVE FINDINGS: There was large with solid stool throughout the left side of the colon and therefore the colonoscopy was aborted . The patient had large, grade IV, nonthrombosed, internal hemorrhoids in the right posterior lateral position. The distal rectal mucosa appeared normal without inflammation. There was no external component to these hemorrhoids. PROCEDURE IN DETAIL: After informed consent was obtained, the patient was brought to the operating room. Sedative medications were administered by the anesthesia service. He was then placed in the left lateral decubitus position. I then started with the intraoperative colonoscopy. Please see the PROVATION dictation for full details regarding this portion of the procedure. She was flipped into a well-padded prone jackknife position, and the buttocks taped apart. The perineum was sterilely prepped and draped in standard fashion. A digital rectal exam was performed in order to reduce the prolapsing internal hemorrhoids. A medium Hill-Evangelista retractor was then inserted into the anal canal and the operative findings are notedabove. The large internal hemorrhoid located in the right posterior lateral position was excised inthe following manner. The hemorrhoid was grasped with a Karley clamp, and the external perianal skinwas pulled laterally so as to create a parul shape. The hemorrhoid was then excised using Bovie electrocautery, taking great care to preserve the underlying sphincter fibers at all times. Once the Bovie electrocautery had been used to excise the hemorrhoid up to the base, a 3-0 Vicryl suture was used to first suture ligate the base and facilitate total excision of the hemorrhoid. The hemorrhoidwas then passed off the operative field to be sent to pathology. Any bleeding left from the excision was meticulously controlled with Bovie electrocautery. A 3-0 Vicryl suture was used to close the defect in a running locked fashion in the internal component, followed by a simple interrupted sutures in the more external component. The anal canal was irrigated with saline solution, and hemostasis was adequate. An anal field block consisting of 29 mL of 0.5% Marcaine was instilled into the four quadrants of the anal canal for prolonged postoperative analgesia. A sterile gauze dressing was then applied. The patient tolerated this procedure well without complications. Estimated blood loss was 5 mL. I was present and scrubbed for the entire duration of the operation. The patient was returned to the supine position and awoken in the operating room. She was brought to the recovery room in stable condition. SPECIMEN: right posterior hemorrhoid. Kiera Zee MD FORM ARCHITECT documented in this encounter Plan of Treatment Not on file documented as of this encounter Procedures Procedure Name Priority Date/Time Associated Diagnosis Comments GLUCOSE BY METER Routine 08/04/2023 9:05 AM PLATFORM ARCHITECT SURGICAL PATHOLOGY EXAM Routine 08/04/2023 8:19 AM PLATFORM ARCHITECT HEMORRHOIDECTOMY, INTERNAL 08/04/2023 7:38 AM PLATFORM ARCHITECT Prolapsed internal hemorrhoids, grade 3 Screen for colon cancer COLONOSCOPY 08/04/2023 7:38 AM PLATFORM ARCHITECT Prolapsed internal hemorrhoids, grade 3 Screen for colon cancer COLONOSCOPY Routine 08/04/2023 7:25 AM PLATFORM ARCHITECT GLUCOSE BY METER Routine 08/04/2023 6:50 AM PLATFORM ARCHITECT LAB RESULT - HIM SCAN 07/25/2023 12:00 AM PLATFORM ARCHITECT EKG CARDIAC - HIM SCAN 07/25/2023 12:00 AM PLATFORM ARCHITECT documented in this encounter Results * (ABNORMAL) Glucose by meter (08/04/2023 9:05 AM PLATFORM ARCHITECT) GLUCOSE BY METER POCT 180(H) 70 - 99 mg/dL 08/04/2023 9:13 AM PLATFORM ARCHITECT LABORATORY POC Blood, Capillary BLOOD SPECIMEN / Unknown 08/04/2023 9:05 AM PLATFORM ARCHITECT 08/04/2023 9:13 AM PLATFORM ARCHITECT Ever Zee MD [facility] Lab [address] [facility] Lab (1st floor, no room number) [place] [address], [facility] [phone] * Surgical Pathology Exam (08/04/2023 8:19 AM PLATFORM ARCHITECT) Case Report Surgical Pathology Report ? Case: [id number] ? Authorizing Provider: ??Ever Zee MD ?? Collected: ? 08/04/2023 08:19 AM ? Ordering Location: ? [facility] ?? Received: ?08/04/2023 08:44 AM ? Main OR ? Pathologist: ? Mario Boo MD ? Specimen: ?Rectum, Right posterior hemorroid ? 08/07/2023 1:17 PM [facility] Final Diagnosis A(1). Anal/Rectal mucosa and soft tissue, Right posterior, excision: - Polypoid colonic mucosa with prominent underlying blood vessels consistent with hemorrhoidal tissue. - Negative for dysplasia or malignancy. 08/07/2023 1:17 PM [facility] Clinical Information Procedure: INTAROPERATIVE Colonoscopy WITH EXAM UNDER ANESTHESIA OF RECTUM WITH HEMORROIDECTOMY Pre-op Diagnosis: Prolapsed internal hemorrhoids, grade 3 [K64.2] Screen for colon cancer [Z12.11] Post-op Diagnosis: K64.2 - Prolapsed internal hemorrhoids, grade 3 [ICD-10-CM] Z12.11 - Screen for colon cancer [ICD-10-CM] 08/07/2023 1:17 PM [facility] Gross Description A(1). Rectum, Right posterior [...] specimen (MARTIR Jones (ASCP) 08/07/2023 1:17 PM PLATFORM ARCHITECT LABORATORY Microscopic Description Microscopic examination was performed. 08/07/2023 1:17 PM [facility] Performing Labs The technical component of this testing was completed at [facility] 08/07/2023 1:17 PM PLATFORM ARCHITECT LABORATORY Case Images 08/07/2023 1:17 PM PLATFORM ARCHITECT LABORATORY Tissue RECTUM PART / Unknown 08/04/2023 8:19 AM PLATFORM ARCHITECT 08/04/2023 8:44 AM PLATFORM ARCHITECT Ever Zee MD LAB - [facility] Acute [facility] Lab [address] Lab (1st floor, no room number) [place] [address], [facility] [phone] * COLONOSCOPY (08/04/2023 7:25 AM PLATFORM ARCHITECT) COLONOSCOPY [facility] Patient Name: Maryam Cortez ?Procedure Date: 08/04/2023 [...] ?Olympus, Pediatric Colonoscope, Model # [id number]-H190DL, ?Censitrac #[id number] was introduced through the ?anus with the [...] criteria for high risk CPT copyright 2021 [employer] [place] [employer]. All rights reserved. The codes documented in this report are preliminary and upon c unix developer review may be revised to meet current compliance requirements. EVER ZEE MD 08/04/2023 8:47:30 AM I was physically present for the entire viewing portion of the exam. EVER ZEE MD Number of Addenda: 0 Note Initiated On: 08/04/2023 7:25 AM MRN: ?[id number] Procedure Date: ? 08/04/2023 7:25:15 AM Total Procedure Duration: 0 hours 3 minutes 40 seconds Estimated Blood Loss: ? Scope In: 7:47:47 AM Scope Out: 7:51:27 AM RADIOLOGY RESULTS 08/04/2023 7:25 AM PLATFORM ARCHITECT Ever Zee MD PROCEDURES RADIOLOGY RESULTS * (ABNORMAL) Glucose by meter (08/04/2023 6:50 AM PLATFORM ARCHITECT) GLUCOSE BY METER POCT 182(H) 70 - 99 mg/dL 08/04/2023 6:57 AM PLATFORM ARCHITECT LABORATORY POC Comment:Dr/RN Notified Blood, Capillary BLOOD SPECIMEN / Unknown 08/04/2023 6:50 AM PLATFORM ARCHITECT 08/04/2023 6:57 AM PLATFORM ARCHITECT Ever Zee MD LAB - [facility] POC [facility] [address] [facility], no room number) [place] [address], [facility] [phone] * LAB RESULT - HIM SCAN (07/25/2023 12:00 AM PLATFORM ARCHITECT) 07/25/2023 Provider Outside NON-BEAKER LAB TE STING * EKG CARDIAC - HIM SCAN (07/25/2023 12:00 AM PLATFORM ARCHITECT) 07/25/2023 Provider Outside ECG ORDERABLES documented in this encounter Visit Diagnoses Diagnosis Hemorrhoids, unspecified hemorrhoid type- Primary Prolapsed internal hemorrhoids, grade 3 Screen for colon cancer Special screening for malignant neoplasms, colon documented in this encounter Administered Medications Inactive Administered Medications - up to 3 most recent administrations Medication Order MAR Action Action Date Dose Rate Site acetaminophen (TYLENOL) tablet 975 mg 975 mg, Oral, ONCE, On Mon08/04/23 at 0700, For 1 dose, IF acetaminophen (TYLENOL) not already order by Anesthesia. Maximum acetaminophen dose from all sources = 75 mg/kg/day not to exceed 4 grams/day., Pre-procedure $Given 08/04/2023 6:56 AM PLATFORM ARCHITECT 975 mg BUPivacaine (MARCAINE) 0.5% preservative free injection PRN, Starting on Mon08/04/23 at 0813, Intra-procedure $Given 08/04/2023 8:13 AM PLATFORM ARCHITECT 29.75 mLs Operative Site/Surgical Site fentaNYL (PF) (SUBLIMAZE) injection 25 mcg 25 mcg, Intravenous, EVERY 5 MIN PRN, moderate pain, Give fentaNYL (SUBLIMAZE) first if HYDROmorphone (DILAUDID) also ordered., Starting on Mon08/04/23 at 0852, Administer fentaNYL (SUBLIMAZE) for acute pain control. Move to HYDROmorphone (DILAUDID): - IF patient has received up to 200 mcg of fentaNYL (SUBLIMAZE) OR - IF patient has received 2 doses of fentaNYL (SUBLIMAZE) AND continues to have pain score greater than or equal to six (6) or is unable to participate in post op recovery due to pain. Wait 5 minutes AFTER last fentaNYL (SUBLIMAZE) dose before administering HYDROmorphone (DILADUDID). Postop Anesthesia Phase I only. Notify Provider to assess for uncontrolled pain or analgesic side effects. DO NOT revert back to fentanyl (SUBLIMAZE) after administering HYDROmorphone (DILAUDID)., PACU fentaNYL (PF) (SUBLIMAZE) injection 50 mcg 50 mcg, Intravenous, EVERY 5 MIN PRN, severe pain, Give fentaNYL (SUBLIMAZE) first if HYDROmorphone (DILAUDID) also ordered., Starting on Mon08/04/23 at 0852, Administer fentaNYL (SUBLIMAZE) for acute pain control. Move to HYDROmorphone (DILAUDID): - IF patient has received up to 200 mcg of fentaNYL (SUBLIMAZE), OR - IF patient has received 2 doses of fentaNYL (SUBLIMAZE) AND continues to have severe pain (pain score greater than or equal to seven (7) or is unable to participate in post op recovery due to pain. Wait 5 minutes AFTER last fentaNYL (SUBLIMAZE) dose before administering HYDROmorphone (DILADUDID). Postop Anesthesia Phase I only. Notify Provider to assess for uncontrolled pain or analgesic side effects. DO NOT revert back to fentanyl (SUBLIMAZE) after administering HYDROmorphone (DILAUDID)., PACU HYDROmorphone (DILAUDID) injection 0.2 mg 0.2 mg, Intravenous, EVERY 5 MIN PRN, moderate pain, Starting on Mon08/04/23 at 0852, Use FentaNYL (SUBLIMAZE) first if ordered. Maximum total cumulative dose NOT to exceed 2 mg. DO NOT revert back to fentanyl (SUBLIMAZE) after administering HYDROmorphone (DILAUDID). Notify Provider to assess for uncontrolled pain or analgesic side effects., PACU HYDROmorphone (DILAUDID) injection 0.4 mg 0.4 mg, Intravenous, EVERY 5 MIN PRN, severe pain, Starting on Mon08/04/23 at 0852, Use FentaNYL (SUBLIMAZE) first if ordered. Maximum total cumulative dose NOT to exceed 2 mg. DO NOT revert back to fentanyl (SUBLIMAZE) after administering HYDROmorphone (DILAUDID). Notify Provider to assess for uncontrolled pain or analgesic side effects., PACU lactated ringers infusion at 10 mL/hr, Intravenous, CONTINUOUS, IF patient NOT on dialysis., Pre-procedure, Starting on Mon08/04/23 at 0600, Until Mon08/04/23 at 0840 Restarted 08/04/2023 7:38 AM PLATFORM ARCHITECT $New Bag 08/04/2023 6:52 AM PLATFORM ARCHITECT 10 mL/hr lactated ringers infusion at 100 mL/hr, Intravenous, CONTINUOUS, Continue until IV catheter is weaned, PACU, Starting on Mon08/04/23 at 0900, Until Mon08/04/23 at 1320 midazolam (VERSED) injection 1 mg 1 mg, Intravenous, ONCE, On Mon08/04/23 at 0930, For 1 dose, This drug may cause significant respiratory depression. Monitor respiratory status and vital signs carefully for 1 hour after each dose. $Given 08/04/2023 9:10 AM PLATFORM ARCHITECT 1 mg naloxone (NARCAN) injection 0.2 mg 0.2 mg, Intravenous, EVERY 2 MIN PRN, opioid reversal, Starting on Mon08/04/23 at 0857, Administer intravenous route when available and notify provider when administered. For unintended sedation or respiratory depression if all of the below criteria are met: ~ respiratory rate LESS than or EQUAL to 8. ~SaO2 less than 92% and or/end-tidal CO2 is greater than 50. ~ the patient is receiving an opioid, has unintended sedations assessed as RASS (-3), and is currently not on mechanical ventilation. RASS scale moderate (-3) is movement or eye opening to voice but no eye contact. Patient Monitoring Once the patient has demonstrated a response to the naloxone, continue to monitor respiratory rate, depth, oxygen saturation and end-tidal CO2 (if available) every 15 minutes x 2, then every 30 minutes x 2, then every 1 hour x 1 after each naloxone dose. Consider transfer to ICU if patient respiratory parameters have not improved after 4 naloxone doses. naloxone (NARCAN) injection 0.2 mg 0.2 mg, Intramuscular, EVERY 2 MIN PRN, opioid reversal, Starting on Mon08/04/23 at 0857, Administer intramuscular if an intravenous route is not available and notify provider when administered. For unintended sedation or respiratory depression if all of the below criteria are met: ~ respiratory rate LESS than or EQUAL to 8. ~SaO2 less than 92% and or/end-tidal CO2 is greater than 50. ~ the patient is receiving an opioid, has unintended sedations assessed as RASS (-3), and is currently not on mechanical ventilation. RASS scale moderate (-3) is movement or eye opening to voice but no eye contact. Patient Monitoring Once the patient has demonstrated a response to the naloxone, continue to monitor respiratory rate, depth, oxygen saturation and end-tidal CO2 (if available) every 15 minutes x 2, then every 30 minutes x 2, then every 1 hour x 1 after each naloxone dose. Consider transfer to ICU if patient respiratory parameters have not improved after 4 naloxone doses. naloxone (NARCAN) injection 0.4 mg 0.4 mg, Intravenous, EVERY 2 MIN PRN, opioid reversal, Starting on Mon08/04/23 at 0857, Administer intravenous route when available and notify provider when administered. For unintended sedation or respiratory depression if all of the below criteria are met: ~ respiratory rate LESS than or EQUAL to 8. ~ SaO2 less than 92% and or/end-tidal CO2 is greater than 50. ~ the patient is receiving an opioid, has unintended sedation assessed as RASS (-4) or (-5) and patient is currently not on mechanical ventilation. RASS scale (-4) is deep sedation with no response to voice but movement or eye opening to physical stimulation. RASS scale (-5) is unarousable. Patient Monitoring Once the patient has demonstrated a response to the naloxone, continue to monitor respiratory rate, depth, oxygen saturation and end-tidal CO2 (if available) every 15 minutes x 2, then every 30 minutes x 2, then every 1 hour x 1 after each naloxone dose. Consider transfer to ICU if patient respiratory parameters have not improved after 4 naloxone doses. naloxone (NARCAN) injection 0.4 mg 0.4 mg, Intramuscular, EVERY 2 MIN PRN, opioid reversal, Starting on Mon08/04/23 at 0857, Administer intramuscular if an intravenous route is not available and notify provider when administered. For unintended sedation or respiratory depression if all of the below criteria are met: ~ respiratory rate LESS than or EQUAL to 8. ~ SaO2 less than 92% and or/end-tidal CO2 is greater than 50. ~ the patient is receiving an opioid, has unintended sedation assessed as RASS (-4) or (-5) and patient is currently not on mechanical ventilation. RASS scale (-4) is deep sedation with no response to voice but movement or eye opening to physical stimulation. RASS scale (-5) is unarousable. Patient Monitoring Once the patient has demonstrated a response to the naloxone, continue to monitor respiratory rate, depth, oxygen saturation and end-tidal CO2 (if available) every 15 minutes x 2, then every 30 minutes x 2, then every 1 hour x 1 after each naloxone dose. Consider transfer to ICU if patient respiratory parameters have not improved after 4 naloxone doses. ondansetron (ZOFRAN ODT) ODT tab 4 mg 4 mg, Oral, EVERY 30 MIN PRN, nausea, Starting on Mon08/04/23 at 0852, For 2 doses, MAX total dose = 8 mg, including OR dosing. If not resolved in 15 minutes, then go to step 2 [prochlorperazine (COMPAZINE), if ordered]. With dry hands, peel back foil backing and gently remove tablet. Do not push oral disintegrating tablet through foil backing. Administer immediately on tongue and oral disintegrating tablet dissolves in seconds, then swallow with saliva. Liquid not required., PACU ondansetron (ZOFRAN ODT) ODT tab 4 mg 4 mg, Oral, EVERY 30 MIN PRN, nausea, Starting on Mon08/04/23 at 0852, For 2 doses, MAX total dose = 8 mg, including OR dosing. If not resolved in 15 minutes, then go to step 2 [prochlorperazine (COMPAZINE), if ordered]. With dry hands, peel back foil backing and gently remove tablet. Do not push oral disintegrating tablet through foil backing. Administer immediately on tongue and oral disintegrating tablet dissolves in seconds, then swallow with saliva. Liquid not required., Phase ll ondansetron (ZOFRAN) injection 4 mg 4 mg, Intravenous, EVERY 30 MIN PRN, nausea, Administer over 2-5 Minutes, Starting on Mon08/04/23 at 0852, For 2 doses, MAX total dose = 8 mg, including OR dosing. If not resolved in 15 minutes, then go to step 2 [prochlorperazine (COMPAZINE), if ordered]. Irritant., PACU ondansetron (ZOFRAN) injection 4 mg 4 mg, Intravenous, EVERY 30 MIN PRN, nausea, Administer over 2-5 Minutes, Starting on Mon08/04/23 at 0852, For 2 doses, MAX total dose = 8 mg, including OR dosing. If not resolved in 15 minutes, then go to step 2 [prochlorperazine (COMPAZINE), if ordered]. Irritant., Phase ll oxyCODONE (ROXICODONE) tablet 10 mg 10 mg, Oral, ONCE PRN, severe pain, Starting on Mon08/04/23 at 0852, For 1 dose, Max: 5 mg for opioid-na??ve patient. Use caution with patient Age GREATER than 65 years, COPD, or CrCl LESS than 50 mL/min., Phase ll oxyCODONE (ROXICODONE) tablet 5 mg 5 mg, Oral, ONCE PRN, moderate pain, Starting on Mon08/04/23 at 0852, For 1 dose, Max: 5 mg for opioid-na??ve patient., Phase ll prochlorperazine (COMPAZINE) injection 5 mg 5 mg, Intravenous, EVERY 6 HOURS PRN, nausea, vomiting, Administer over 1-2 Minutes, Starting on Mon08/04/23 at 0852, PACU prochlorperazine (COMPAZINE) injection 5 mg 5 mg, Intravenous, EVERY 6 HOURS PRN, nausea, vomiting, Administer over 1-2 Minutes, Starting on Mon08/04/23 at 0852, Phase ll sodium chloride 0.9% (bottle) irrigation PRN, Starting on Mon08/04/23 at 0823, Intra-procedure $Given 08/04/2023 8:23 AM PLATFORM ARCHITECT 400 mLs Operative Site/Surgi radha Site documented in this encounter Active and Recently Administered Medications Times are shown in PLATFORM ARCHITECT. Scheduled Medication Order 08/02/2023 08/03/2023 08/04/2023 acetaminophen (TYLENOL) tablet 975 mg (COMPLETED) 975 mg, Oral, ONCE, On Mon08/04/23 at 0700, For 1 dose, IF acetaminophen (TYLENOL) not already order by Anesthesia. Maximum acetaminophen dose from all sources = 75 mg/kg/day not to exceed 4 grams/day., Pre-procedure 0656 ($Given - Provi anshu: Libby Jaime RN) midazolam (VERSED) injection 1 mg (COMPLETED) 1 mg, Intravenous, ONCE, On Mon08/04/23 at 0930, For 1 dose, This drug may cause significant respiratory depression. Monitor respiratory status and vital signs carefully for 1 hour after each dose. 0910 ($Given - Provi anshu: Nikolas Douglass RN) Continuous Medication Order 08/02/2023 08/03/2023 08/04/2023 lactated ringers infusion (CANCELED) at 10 mL/hr, Intravenous, CONTINUOUS, IF patient NOT on dialysis., Pre-procedure, Starting on Mon08/04/23 at 0600, Until Mon08/04/23 at 0840 0652 ($New Bag - Pro vider: Libby Jaime RN)0737 (Paused - Provider: Toño Zuniga APRN CRNA - Comment: Switch to gravity)0738 (Restarted - Provider: Toño Zuniga APRN CRNA)0830 (Anesthesia Volume Adjustment - Provider: Toño Zuniga APRN CRNA) lactated ringers infusion at 100 mL/hr, Intravenous, CONTINUOUS, Continue until IV catheter is weaned, PACU, Starting on Mon08/04/23 at 0900, Until Mon08/04/23 at 1320 0900 (Canceled Entry - Provider: Orders Generic Provider - Comment: Automatically canceled at discontinue of medication order) PRN Medication Order 08/02/2023 08/03/2023 08/04/2023 BUPivacaine (MARCAINE) 0.5% preservative free injection (CANCELED) PRN, Starting on Mon08/04/23 at 0813, Intra-procedure 0813 ($Given - Provi anshu: Ever Zee MD) fentaNYL (PF) (SUBLIMAZE) injection 25 mcg 25 mcg, Intravenous, EVERY 5 MIN PRN, moderate pain, Give fentaNYL (SUBLIMAZE) first if HYDROmorphone (DILAUDID) also ordered., Starting on Mon08/04/23 at 0852, Administer fentaNYL (SUBLIMAZE) for acute pain control. Move to HYDROmorphone (DILAUDID): - IF patient has received up to 200 mcg of fentaNYL (SUBLIMAZE) OR - IF patient has received 2 doses of fentaNYL (SUBLIMAZE) AND continues to have pain score greater than or equal to six (6) or is unable to participate in post op recovery due to pain. Wait 5 minutes AFTER last fentaNYL (SUBLIMAZE) dose before administering HYDROmorphone (DILADUDID). Postop Anesthesia Phase I only. Notify Provider to assess for uncontrolled pain or analgesic side effects. DO NOT revert back to fentanyl (SUBLIMAZE) after administering HYDROmorphone (DILAUDID)., PACU fentaNYL (PF) (SUBLIMAZE) injection 50 mcg 50 mcg, Intravenous, EVERY 5 MIN PRN, severe pain, Give fentaNYL (SUBLIMAZE) first if HYDROmorphone (DILAUDID) also ordered., Starting on Mon08/04/23 at 0852, Administer fentaNYL (SUBLIMAZE) for acute pain control. Move to HYDROmorphone (DILAUDID): - IF patient has received up to 200 mcg of fentaNYL (SUBLIMAZE), OR - IF patient has received 2 doses of fentaNYL (SUBLIMAZE) AND continues to have severe pain (pain score greater than or equal to seven (7) or is unable to participate in post op recovery due to pain. Wait 5 minutes AFTER last fentaNYL (SUBLIMAZE) dose before administering HYDROmorphone (DILADUDID). Postop Anesthesia Phase I only. Notify Provider to assess for uncontrolled pain or analgesic side effects. DO NOT revert back to fentanyl (SUBLIMAZE) after administering HYDROmorphone (DILAUDID)., PACU HYDROmorphone (DILAUDID) injection 0.2 mg 0.2 mg, Intravenous, EVERY 5 MIN PRN, moderate pain, Starting on Mon08/04/23 at 0852, Use FentaNYL (SUBLIMAZE) first if ordered. Maximum total cumulative dose NOT to exceed 2 mg. DO NOT revert back to fentanyl (SUBLIMAZE) after administering HYDROmorphone (DILAUDID). Notify Provider to assess for uncontrolled pain or analgesic side effects., PACU HYDROmorphone (DILAUDID) injection 0.4 mg 0.4 mg, Intravenous, EVERY 5 MIN PRN, severe pain, Starting on Mon08/04/23 at 0852, Use FentaNYL (SUBLIMAZE) first if ordered. Maximum total cumulative dose NOT to exceed 2 mg. DO NOT revert back to fentanyl (SUBLIMAZE) after administering HYDROmorphone (DILAUDID). Notify Provider to assess for uncontrolled pain or analgesic side effects., PACU naloxone (NARCAN) injection 0.2 mg(Linked Group 1) 0.2 mg, Intravenous, EVERY 2 MIN PRN, opioid reversal, Starting on Mon08/04/23 at 0857, Administer intravenous route when available and notify provider when administered. For unintended sedation or respiratory depression if all of the below criteria are met: ~ respiratory rate LESS than or EQUAL to 8. ~SaO2 less than 92% and or/end-tidal CO2 is greater than 50. ~ the patient is receiving an opioid, has unintended sedations assessed as RASS (-3), and is currently not on mechanical ventilation. RASS scale moderate (-3) is movement or eye opening to voice but no eye contact. Patient Monitoring Once the patient has demonstrated a response to the naloxone, continue to monitor respiratory rate, depth, oxygen saturation and end-tidal CO2 (if available) every 15 minutes x 2, then every 30 minutes x 2, then every 1 hour x 1 after each naloxone dose. Consider transfer to ICU if patient respiratory parameters have not improved after 4 naloxone doses. naloxone (NARCAN) injection 0.2 mg(Linked Group 1) 0.2 mg, Intramuscular, EVERY 2 MIN PRN, opioid reversal, Starting on Mon08/04/23 at 0857, Administer intramuscular if an intravenous route is not available and notify provider when administered. For unintended sedation or respiratory depression if all of the below criteria are met: ~ respiratory rate LESS than or EQUAL to 8. ~SaO2 less than 92% and or/end-tidal CO2 is greater than 50. ~ the patient is receiving an opioid, has unintended sedations assessed as RASS (-3), and is currently not on mechanical ventilation. RASS scale moderate (-3) is movement or eye opening to voice but no eye contact. Patient Monitoring Once the patient has demonstrated a response to the naloxone, continue to monitor respiratory rate, depth, oxygen saturation and end-tidal CO2 (if available) every 15 minutes x 2, then every 30 minutes x 2, then every 1 hour x 1 after each naloxone dose. Consider transfer to ICU if patient respiratory parameters have not improved after 4 naloxone doses. naloxone (NARCAN) injection 0.4 mg(Linked Group 1) 0.4 mg, Intravenous, EVERY 2 MIN PRN, opioid reversal, Starting on Mon08/04/23 at 0857, Administer intravenous route when available and notify provider when administered. For unintended sedation or respiratory depression if all of the below criteria are met: ~ respiratory rate LESS than or EQUAL to 8. ~ SaO2 less than 92% and or/end-tidal CO2 is greater than 50. ~ the patient is receiving an opioid, has unintended sedation assessed as RASS (-4) or (-5) and patient is currently not on mechanical ventilation. RASS scale (-4) is deep sedation with no response to voice but movement or eye opening to physical stimulation. RASS scale (-5) is unarousable. Patient Monitoring Once the patient has demonstrated a response to the naloxone, continue to monitor respiratory rate, depth, oxygen saturation and end-tidal CO2 (if available) every 15 minutes x 2, then every 30 minutes x 2, then every 1 hour x 1 after each naloxone dose. Consider transfer to ICU if patient respiratory parameters have not improved after 4 naloxone doses. naloxone (NARCAN) injection 0.4 mg(Linked Group 1) 0.4 mg, Intramuscular, EVERY 2 MIN PRN, opioid reversal, Starting on Mon08/04/23 at 0857, Administer intramuscular if an intravenous route is not available and notify provider when administered. For unintended sedation or respiratory depression if all of the below criteria are met: ~ respiratory rate LESS than or EQUAL to 8. ~ SaO2 less than 92% and or/end-tidal CO2 is greater than 50. ~ the patient is receiving an opioid, has unintended sedation assessed as RASS (-4) or (-5) and patient is currently not on mechanical ventilation. RASS scale (-4) is deep sedation with no response to voice but movement or eye opening to physical stimulation. RASS scale (-5) is unarousable. Patient Monitoring Once the patient has demonstrated a response to the naloxone, continue to monitor respiratory rate, depth, oxygen saturation and end-tidal CO2 (if available) every 15 minutes x 2, then every 30 minutes x 2, then every 1 hour x 1 after each naloxone dose. Consider transfer to ICU if patient respiratory parameters have not improved after 4 naloxone doses. ondansetron (ZOFRAN ODT) ODT tab 4 mg(Linked Group 2) 4 mg, Oral, EVERY 30 MIN PRN, nausea, Starting on Mon08/04/23 at 0852, For 2 doses, MAX total dose = 8 mg, including OR dosing. If not resolved in 15 minutes, then go to step 2 [prochlorperazine (COMPAZINE), if ordered]. With dry hands, peel back foil backing and gently remove tablet. Do not push oral disintegrating tablet through foil backing. Administer immediately on tongue and oral disintegrating tablet dissolves in seconds, then swallow with saliva. Liquid not required., PACU ondansetron (ZOFRAN ODT) ODT tab 4 mg(Linked Group 3) 4 mg, Oral, EVERY 30 MIN PRN, nausea, Starting on Mon08/04/23 at 0852, For 2 doses, MAX total dose = 8 mg, including OR dosing. If not resolved in 15 minutes, then go to step 2 [prochlorperazine (COMPAZINE), if ordered]. With dry hands, peel back foil backing and gently remove tablet. Do not push oral disintegrating tablet through foil backing. Administer immediately on tongue and oral disintegrating tablet dissolves in seconds, then swallow with saliva. Liquid not required., Phase ll ondansetron (ZOFRAN) injection 4 mg(Linked Group 2) 4 mg, Intravenous, EVERY 30 MIN PRN, nausea, Administer over 2-5 Minutes, Starting on Mon08/04/23 at 0852, For 2 doses, MAX total dose = 8 mg, including OR dosing. If not resolved in 15 minutes, then go to step 2 [prochlorperazine (COMPAZINE), if ordered]. Irritant., PACU ondansetron (ZOFRAN) injection 4 mg(Linked Group 3) 4 mg, Intravenous, EVERY 30 MIN PRN, nausea, Administer over 2-5 Minutes, Starting on Mon08/04/23 at 0852, For 2 doses, MAX total dose = 8 mg, including OR dosing. If not resolved in 15 minutes, then go to step 2 [prochlorperazine (COMPAZINE), if ordered]. Irritant., Phase ll oxyCODONE (ROXICODONE) tablet 10 mg 10 mg, Oral, ONCE PRN, severe pain, Starting on Mon08/04/23 at 0852, For 1 dose, Max: 5 mg for opioid-na??ve patient. Use caution with patient Age GREATER than 65 years, COPD, or CrCl LESS than 50 mL/min., Phase ll oxyCODONE (ROXICODONE) tablet 5 mg 5 mg, Oral, ONCE PRN, moderate pain, Starting on Mon08/04/23 at 0852, For 1 dose, Max: 5 mg for opioid-na??ve patient., Phase ll oxyCODONE (ROXICODONE) tablet 5 mg 5 mg, Oral, ONCE PRN, other, pain control or improvement in physical function.??, Starting on Mon08/04/23 at 0853, For 1 dose, Notify provider to assess for uncontrolled pain or analgesic side effects. prochlorperazine (COMPAZINE) injection 5 mg 5 mg, Intravenous, EVERY 6 HOURS PRN, nausea, vomiting, Administer over 1-2 Minutes, Starting on Mon08/04/23 at 0852, PACU prochlorperazine (COMPAZINE) injection 5 mg 5 mg, Intravenous, EVERY 6 HOURS PRN, nausea, vomiting, Administer over 1-2 Minutes, Starting on Mon08/04/23 at 0852, Phase ll sodium chloride 0.9% (bottle) irrigation (CANCELED) PRN, Starting on Mon08/04/23 at 0823, Intra-procedure 0823 ($Given - Provi anshu: Ever Zee MD) Linked Groups Order Group 1: naloxone (NARCAN) injection 0.2 mgJump to med 0.2 mg, Intravenous, EVERY 2 MIN PRN, opioid reversal, Starting on Mon08/04/23 at 0857, Administer intravenous route when available and notify provider when administered. For unintended sedation or respiratory depression if all of the below criteria are met: ~ respiratory rate LESS than or EQUAL to 8. ~SaO2 less than 92% and or/end-tidal CO2 is greater than 50. ~ the patient is receiving an opioid, has unintended sedations assessed as RASS (-3), and is currently not on mechanical ventilation. RASS scale moderate (-3) is movement or eye opening to voice but no eye contact. Patient Monitoring Once the patient has demonstrated a response to the naloxone, continue to monitor respiratory rate, depth, oxygen saturation and end-tidal CO2 (if available) every 15 minutes x 2, then every 30 minutes x 2, then every 1 hour x 1 after each naloxone dose. Consider transfer to ICU if patient respiratory parameters have not improved after 4 naloxone doses. Or naloxone (NARCAN) injection 0.4 mgJump to med 0.4 mg, Intravenous, EVERY 2 MIN PRN, opioid reversal, Starting on Mon08/04/23 at 0857, Administer intravenous route when available and notify provider when administered. For unintended sedation or respiratory depression if all of the below criteria are met: ~ respiratory rate LESS than or EQUAL to 8. ~ SaO2 less than 92% and or/end-tidal CO2 is greater than 50. ~ the patient is receiving an opioid, has unintended sedation assessed as RASS (-4) or (-5) and patient is currently not on mechanical ventilation. RASS scale (-4) is deep sedation with no response to voice but movement or eye opening to physical stimulation. RASS scale (-5) is unarousable. Patient Monitoring Once the patient has demonstrated a response to the naloxone, continue to monitor respiratory rate, depth, oxygen saturation and end-tidal CO2 (if available) every 15 minutes x 2, then every 30 minutes x 2, then every 1 hour x 1 after each naloxone dose. Consider transfer to ICU if patient respiratory parameters have not improved after 4 naloxone doses. Or naloxone (NARCAN) injection 0.2 mgJump to med 0.2 mg, Intramuscular, EVERY 2 MIN PRN, opioid reversal, Starting on Mon08/04/23 at 0857, Administer intramuscular if an intravenous route is not available and notify provider when administered. For unintended sedation or respiratory depression if all of the below criteria are met: ~ respiratory rate LESS than or EQUAL to 8. ~SaO2 less than 92% and or/end-tidal CO2 is greater than 50. ~ the patient is receiving an opioid, has unintended sedations assessed as RASS (-3), and is currently not on mechanical ventilation. RASS scale moderate (-3) is movement or eye opening to voice but no eye contact. Patient Monitoring Once the patient has demonstrated a response to the naloxone, continue to monitor respiratory rate, depth, oxygen saturation and end-tidal CO2 (if available) every 15 minutes x 2, then every 30 minutes x 2, then every 1 hour x 1 after each naloxone dose. Consider transfer to ICU if patient respiratory parameters have not improved after 4 naloxone doses. Or naloxone (NARCAN) injection 0.4 mgJump to med 0.4 mg, Intramuscular, EVERY 2 MIN PRN, opioid reversal, Starting on Mon08/04/23 at 0857, Administer intramuscular if an intravenous route is not available and notify provider when administered. For unintended sedation or respiratory depression if all of the below criteria are met: ~ respiratory rate LESS than or EQUAL to 8. ~ SaO2 less than 92% and or/end-tidal CO2 is greater than 50. ~ the patient is receiving an opioid, has unintended sedation assessed as RASS (-4) or (-5) and patient is currently not on mechanical ventilation. RASS scale (-4) is deep sedation with no response to voice but movement or eye opening to physical stimulation. RASS scale (-5) is unarousable. Patient Monitoring Once the patient has demonstrated a response to the naloxone, continue to monitor respiratory rate, depth, oxygen saturation and end-tidal CO2 (if available) every 15 minutes x 2, then every 30 minutes x 2, then every 1 hour x 1 after each naloxone dose. Consider transfer to ICU if patient respiratory parameters have not improved after 4 naloxone doses. Group 2: ondansetron (ZOFRAN ODT) ODT tab 4 mgJump to med 4 mg, Oral, EVERY 30 MIN PRN, nausea, Starting on Mon08/04/23 at 0852, For 2 doses, MAX total dose = 8 mg, including OR dosing. If not resolved in 15 minutes, then go to step 2 [prochlorperazine (COMPAZINE), if ordered]. With dry hands, peel back foil backing and gently remove tablet. Do not push oral disintegrating tablet through foil backing. Administer immediately on tongue and oral disintegrating tablet dissolves in seconds, then swallow with saliva. Liquid not required., PACU Or ondansetron (ZOFRAN) injection 4 mgJump to med 4 mg, Intravenous, EVERY 30 MIN PRN, nausea, Administer over 2-5 Minutes, Starting on Mon08/04/23 at 0852, For 2 doses, MAX total dose = 8 mg, including OR dosing. If not resolved in 15 minutes, then go to step 2 [prochlorperazine (COMPAZINE), if ordered]. Irritant., PACU Group 3: ondansetron (ZOFRAN ODT) ODT tab 4 mgJump to med 4 mg, Oral, EVERY 30 MIN PRN, nausea, Starting on Mon08/04/23 at 0852, For 2 doses, MAX total dose = 8 mg, including OR dosing. If not resolved in 15 minutes, then go to step 2 [prochlorperazine (COMPAZINE), if ordered]. With dry hands, peel back foil backing and gently remove tablet. Do not push oral disintegrating tablet through foil backing. Administer immediately on tongue and oral disintegrating tablet dissolves in seconds, then swallow with saliva. Liquid not required., Phase ll Or ondansetron (ZOFRAN) injection 4 mgJump to med 4 mg, Intravenous, EVERY 30 MIN PRN, nausea, Administer over 2-5 Minutes, Starting on Mon08/04/23 at 0852, For 2 doses, MAX total dose = 8 mg, including OR dosing. If not resolved in 15 minutes, then go to step 2 [prochlorperazine (COMPAZINE), if ordered]. Irritant., Phase ll documented in this encounter Care Teams Flight Readiness Technician Relationship Specialty Start Date End Date Lina Meléndez MD [facility] [address] [place] [address] PCP - General Internal Medicine 12/26/14 Rhoda Sarabia I [address] [place] [id number] Advice Line Rn Dietitian, Registered 02/20/20 documented as of this encounter
--- OUTSIDE RECORDS SUMMARY | 2023-08-16 07:09 | XMS_ITS | Referral Summary ---
Author Name Unknown Organization [facility] Address [address] [place] [address] Care Team Providers Care Asphalt Tile Floor Layer Name Role Phone Lina Meléndez MD Primary Care Provider [phone] Rhoda Sarabia I Unavailable Encounters Date Type Department Care Team Description 08/04/2023 7:38 AM REHAB TECH Anesthesia Event [facility] [address] [place] [address] Marlon Rueda, DO 08/04/2023 Travel 08/04/2023 7:30 AM REHAB TECH - 08/04/2023 9:10 AM REHAB TECH Surgery [facility] [address] [place] [address] Ever Zee MD INTAROPERATIVE Colonoscopy 08/04/2023 5:28 AM REHAB TECH - 08/04/2023 11:05 AM REHAB TECH Hospital Encounter [facility] PreOP/PostOP [address] [place] [address] Ever Zee MD Hemorrhoids, unspecified hemorrhoid type (Primary Dx) Discharge Disposition: Home or Self Care 07/26/2023 Travel from Last 3 Months Allergies Active Allergy [...] Active fluticasone (FLONASE) 50 MCG/ACT nasal spray [place] 2 sprays in nostril daily 0 Active [...] by Conversion Osteoarthritis Overview: Created by Conversion Helios Annotation: Dec 29 2006 3:46PM - Jojo Faustin: DJD Replacement Utility updated for latest IMO load Lower Back Pain Overview: Created by Leo Annotation: Dec 29 2006 3:46PM - Jojo [...] Comments Blood Pressure 153/88 08/04/2023 11:00 AM REHAB TECH Pulse 79 08/04/2023 11:00 AM REHAB TECH Temperature 36.1 ??C (97 ??F) 08/04/2023 11:00 AM REHAB TECH Respiratory Rate 18 08/04/2023 11:00 AM REHAB TECH Oxygen Saturation 100% 08/04/2023 11:00 AM REHAB TECH Inhaled Oxygen Concentration - - Weight 70.9 kg (156 lb 4.8 oz) 08/04/2023 6:02 A M REHAB TECH Height 165.1 cm (5' 5) 07/26/2023 1:00 PM REHAB TECH Body Mass Index 26.01 07/26/2023 1:00 PM REHAB TECH Plan of Treatment Not on file Procedures Procedure Name Priority Date/Time Associated Diagnosis Comments GLUCOSE BY METER Routine 08/04/2023 9:05 AM REHAB TECH SURGICAL PATHOLOGY EXAM Routine 08/04/2023 8:19 AM REHAB TECH HEMORRHOIDECTOMY, INTERNAL 08/04/2023 7:38 AM REHAB TECH Prolapsed internal hemorrhoids, grade 3 Screen for colon cancer COLONOSCOPY 08/04/2023 7:38 AM REHAB TECH Prolapsed internal hemorrhoids, grade 3 Screen for colon cancer COLONOSCOPY Routine 08/04/2023 7:25 AM REHAB TECH GLUCOSE BY METER Routine 08/04/2023 6:50 AM REHAB TECH LAB RESULT - HIM SCAN 07/25/2023 12:00 AM REHAB TECH EKG CARDIAC - HIM SCAN 07/25/2023 12:00 AM REHAB TECH from Last 3 Months Results * (ABNORMAL) Glucose by meter (08/04/2023 9:05 AM REHAB TECH) Only the most recent of2 resultswithin the time period is included. GLUCOSE BY METER POCT 180(H) 70 - 99 mg/dL 08/04/2023 9:13 AM REHAB TECH RH LABORATORY POC Blood, Capillary BLOOD SPECIMEN / Unknown 08/04/2023 9:05 AM REHAB TECH 08/04/2023 9:13 AM REHAB TECH Ever Zee MD [facility] Acute Care Lab [address] Lab (1st floor, no room number) [place] [address], [facility] [phone] * Surgical Pathology Exam (08/04/2023 8:19 AM REHAB TECH) Case Report Surgical Pathology Report ? Case: [id number] ? Authorizing Provider: ??Ever Zee MD ?? Collected: ? 08/04/2023 08:19 AM ? Ordering Location: ? [facility] ?? Received: ?08/04/2023 08:44 AM ? Main OR ? Pathologist: ? Mario Boo MD ? Specimen: ?Rectum, Right posterior hemorroid ? 08/07/2023 1:17 PM [facility] LABOR[facility] Final Diagnosis A(1). Anal/Rectal mucosa and soft tissue, Right posterior, excision: - Polypoid colonic mucosa with prominent underlying blood vessels consistent with hemorrhoidal tissue. - Negative for dysplasia or malignancy. 08/07/2023 1:17 PM [facility] Clinical Information Procedure: INTAROPERATIVE Colonoscopy WITH EXAM UNDER ANESTHESIA OF RECTUM WITH HEMORROIDECTOMY Pre-op Diagnosis: Prolapsed internal hemorrhoids, grade 3 [K64.2] Screen for colon cancer [Z12.11] Post-op Diagnosis: K64.2 - Prolapsed internal hemorrhoids, grade 3 [ICD-10-CM] Z12.11 - Screen for colon cancer [ICD-10-CM] 08/07/2023 1:17 PM [facility] Gross Description A(1). Rectum, Right posterior [...] specimen (MARTIR Jones (ASCP) 08/07/2023 1:17 PM REHAB TECH LABORATORY Microscopic Description Microscopic examination was performed. 08/07/2023 1:17 PM REHAB TECH LABORATORY Performing Labs The technical component of this testing was completed at [facility] Laboratory 08/07/2023 1:17 PM REHAB TECH LABORATORY Case Images 08/07/2023 1:17 PM REHAB TECH LABORATORY Tissue RECTUM PART / Unknown 08/04/2023 8:19 AM REHAB TECH 08/04/2023 8:44 AM REHAB TECH Ever Zee MD LAB - [facility] Acute [facility] [address] [facility]1st floor, no room number) [place] [address] [phone] * COLONOSCOPY (08/04/2023 7:25 AM REHAB TECH) COLONOSCOPY [facility] Patient Name: Maryam Cortez ?Procedure Date: [...] ?Olympus, Pediatric Colonoscope, Model # PCF-H190DL, ?Censitrac #[id number] was introduced through the ?anus with the [...] criteria for high risk CPT copyright 2021 [employer]. All rights reserved. The codes documented in this report are preliminary and upon certified coder review may be revised to meet current compliance requirements. EVER ZEE MD 08/04/2023 8:47:30 AM I was physically present for the entire viewing portion of the exam. EVER ZEE MD Number of Addenda: 0 Note Initiated On: 08/04/2023 7:25 AM MRN: ?[id number] Procedure Date: ? 08/04/2023 7:25:15 AM Total Procedure Duration: 0 hours 3 minutes 40 seconds Estimated Blood Loss: ? Scope In: 7:47:47 AM Scope Out: 7:51:27 AM RADIOLOGY RESULTS 08/04/2023 7:25 AM REHAB TECH Ever Zee MD PROCEDURES RADIOLOGY RESULTS * LAB RESULT - HIM SCAN (07/25/2023 12:00 AM REHAB TECH) 07/25/2023 Provider Outside NON-BEAKER LAB TE STING * EKG CARDIAC - HIM SCAN (07/25/2023 12:00 AM REHAB TECH) 07/25/2023 Provider Outside ECG ORDERABLES from Last 3 Months Care Teams Asphalt Tile Floor Layer Relationship Specialty Start Date End Date Lina Meléndez MD [facility] & [address] [address] PCP - General Internal Medicine 12/26/14 Rhoda Sarabia I [address] [place] [address] [address] [place] [address] Java Application Developer Dietitian, Registered 02/20/20
--- OUTSIDE RECORDS SUMMARY | 2023-08-16 07:09 | XMS_ITS | Encounter Summary ---
Author Name Unknown Organization [facility] Address [address] [place] [address] Care Team Providers Care Manager Voice Name Role Phone Lina Meléndez MD Primary Care Provider [place], Dojessie Shivani Unavailable Reason for Visit * Auth/Cert (Routine) Specialty Diagnoses / Procedures Referred By Caroline celment Referred To Contact Surgery Diagnoses Prolapsed internal hemorrhoids, grade 3 Screen for colon cancer Prolapsed internal hemorrhoids, grade 3 [K64.2] Screen for colon cancer [Z12.11] Procedures MS COLONOSCOPY W/WO BRUSH/WASH MS HEMORRHOIDECTOMY W BANDING/LIGATION MS LIGATION INTERNAL HEMORRHOID, SINGLE, W/O IMAGING MS LIGATION INTERNAL HEMORRHOID, 2 OR MORE, W/O IMAGING INTAROPERATIVE Colonoscopy WITH EXAM UNDER ANESTHESIA OF RECTUM WITH HEMORROIDECTOMY [facility] [address] [place] [address] Referral ID Status Reason Start Date Expiration Date Visits Re quested Visits Authorized [id number] 1 1 Encounter Details Date Type Department Care Team (Latest Contact Info) Description 08/04/2023 5:28 AM DISABILITY INSURANCE CLAIM EXAMINER - 08/04/2023 11:05 AM DISABILITY INSURANCE CLAIM EXAMINER Hospital Encounter [facility] PreOP/PostOP [address] [place] [phone] Ever Zee MD [facility] [address] [id number] Hemorrhoids, unspecified hemorrhoid type (Primary Dx) Discharge Disposition: Home or Self Care Social History Tobacco Use Types Packs/Day Years [...] Comments Blood Pressure 153/88 08/04/2023 11:00 AM DISABILITY INSURANCE CLAIM EXAMINER Pulse 79 08/04/2023 11:00 AM DISABILITY INSURANCE CLAIM EXAMINER Temperature 36.1 ??C (97 ??F) 08/04/2023 11:00 AM DISABILITY INSURANCE CLAIM EXAMINER Respiratory Rate 18 08/04/2023 11:00 AM DISABILITY INSURANCE CLAIM EXAMINER Oxygen Saturation 100% 08/04/2023 11:00 AM DISABILITY INSURANCE CLAIM EXAMINER Inhaled Oxygen Concentration - - Weight 70.9 kg (156 lb 4.8 oz) 08/04/2023 6:02 A M DISABILITY INSURANCE CLAIM EXAMINER Height 165.1 cm (5' 5) 07/26/2023 1:00 PM DISABILITY INSURANCE CLAIM EXAMINER Body Mass Index 26.01 07/26/2023 1:00 PM DISABILITY INSURANCE CLAIM EXAMINER documented in this encounter Discharge Instructions * Discharge Instructions* Jorje Kendall RN - 08/04/2023 6:57 AM DISABILITY INSURANCE CLAIM EXAMINER Maximum acetaminophen (Tylenol) dose from all sources should not exceed 4 grams (4000 mg) per day. You last had 975 mg at 6:56 AM; do not take Tylenol products again until after 12:[address] VIVIENNE ZEE M.D. CLINIC PHONE NUMBER: [phone] [facility] BILITY INSURANCE CLAIM EXAMINER * Attachments The following attachments cannot be sent through Care Everywhere. * (s) After Anesthesia (Sleep Medicine) (Norwegian) documented in this encounter Medications at Time [...] 0 fluticasone (FLONASE) 50 MCG/ACT nasal spray [place] 2 sprays in nostril daily 0 folic [...] Jaime RN on 08/04/2023 at 5:51 AM BILITY INSURANCE CLAIM EXAMINER documented in this encounter Miscellaneous Notes * Brief Op Note - Ever Zee MD - 08/04/2023 8:48 AM CST [facility] Brief Operative Note Pre-operative diagnosis: Prolapsed [...] Implants: * No implants in log * BILITY INSURANCE CLAIM EXAMINER * Op Note - Ever Zee MD - 08/04/2023 7:47 AM CST DATE OF SURGERY: 08/04/2023 PREOPERATIVE SARA/GNOSIS: Screening for colorectal cancer Symptomatic prolapse the [...] SPECIMEN: right posterior hemorrhoid. Kiera Zee MD BILITY INSURANCE CLAIM EXAMINER documented in this encounter Plan of Treatment Not on file documented as of this encounter Procedures Procedure Name Priority Date/Time Associated Diagnosis Comments GLUCOSE BY METER Routine 08/04/2023 9:05 AM DISABILITY INSURANCE CLAIM EXAMINER SURGICAL PATHOLOGY EXAM Routine 08/04/2023 8:19 AM DISABILITY INSURANCE CLAIM EXAMINER HEMORRHOIDECTOMY, INTERNAL 08/04/2023 7:38 AM DISABILITY INSURANCE CLAIM EXAMINER Prolapsed internal hemorrhoids, grade 3 Screen for colon cancer COLONOSCOPY 08/04/2023 7:38 AM DISABILITY INSURANCE CLAIM EXAMINER Prolapsed internal hemorrhoids, grade 3 Screen for colon cancer COLONOSCOPY Routine 08/04/2023 7:25 AM DISABILITY INSURANCE CLAIM EXAMINER GLUCOSE BY METER Routine 08/04/2023 6:50 AM DISABILITY INSURANCE CLAIM EXAMINER LAB RESULT - HIM SCAN 07/25/2023 12:00 AM DISABILITY INSURANCE CLAIM EXAMINER EKG CARDIAC - HIM SCAN 07/25/2023 12:00 AM DISABILITY INSURANCE CLAIM EXAMINER documented in this encounter Results * (ABNORMAL) Glucose by meter (08/04/2023 9:05 AM DISABILITY INSURANCE CLAIM EXAMINER) GLUCOSE BY METER POCT 180(H) 70 - 99 mg/dL 08/04/2023 9:13 AM DISABILITY INSURANCE CLAIM EXAMINER RH LABORATORY POC Blood, Capillary BLOOD SPECIMEN / Unknown 08/04/2023 9:05 AM DISABILITY INSURANCE CLAIM EXAMINER 08/04/2023 9:13 AM DISABILITY INSURANCE CLAIM EXAMINER Ever Zee MD LAB - [facility] POCT RH LABORATORY [facility] Acute Care Lab [address] Lab (1st floor, no room number) [place] [address], [facility] [phone] * Surgical Pathology Exam (08/04/2023 8:19 AM DISABILITY INSURANCE CLAIM EXAMINER) Pathologist [facility] Case Report Surgical Pathology Report ? Case: [id number] ? Authorizing Provider: ??Ever Zee MD ?? Collected: ? 08/04/2023 08:19 AM ? Ordering Location: ? [facility] ?? Received: ?08/04/2023 08:44 AM ? Main OR ? Pathologist: ? Mario Boo MD ? Specimen: ?Rectum, Right posterior hemorroid ? 08/07/2023 1:17 PM [facility] LAB[facility] Final Diagnosis A(1). Anal/Rectal mucosa and soft tissue, Right posterior, excision: - Polypoid colonic mucosa with prominent underlying blood vessels consistent with hemorrhoidal tissue. - Negative for dysplasia or malignancy. 08/07/2023 1:17 PM [facility] Clinical Information Procedure: INTAROPERATIVE Colonoscopy WITH EXAM UNDER ANESTHESIA OF RECTUM WITH HEMORROIDECTOMY Pre-op Diagnosis: Prolapsed internal hemorrhoids, grade 3 [K64.2] Screen for colon cancer [Z12.11] Post-op Diagnosis: K64.2 - Prolapsed internal hemorrhoids, grade 3 [ICD-10-CM] Z12.11 - Screen for colon cancer [ICD-10-CM] 08/07/2023 1:17 PM [facility] Gross Description A(1). Rectum, Right [...] specimen (MARTIR Jones (ASCP) 08/07/2023 1:17 PM DISABILITY INSURANCE CLAIM EXAMINER LABORATORY Microscopic Description Microscopic examination was performed. 08/07/2023 1:17 PM [facility] Performing Labs The technical component of this testing was completed at [facility] Laboratory 08/07/2023 1:17 PM DISABILITY INSURANCE CLAIM EXAMINER LABORATORY Case Images 08/07/2023 1:17 PM DISABILITY INSURANCE CLAIM EXAMINER LABORATORY Tissue RECTUM PART / Unknown 08/04/2023 8:19 AM DISABILITY INSURANCE CLAIM EXAMINER 08/04/2023 8:44 AM DISABILITY INSURANCE CLAIM EXAMINER Ever [facility] Acute Care Lab [address] [facility] Lab (1st floor, no room number) [place] [id number], [facility] [phone] * COLONOSCOPY (08/04/2023 7:25 AM DISABILITY INSURANCE CLAIM EXAMINER) COLONOSCOPY [facility] Patient Name: Maryam Cortez ?Procedure Date: [...] ?Olympus, Pediatric Colonoscope, Model # PCF-H190DL, ?Censitrac #[id number] was introduced through the ?anus with the [...] criteria for high risk CPT copyright 2021 [employer]. All rights reserved. The codes documented in this report are preliminary and upon net web developer review may be revised to meet current compliance requirements. EVER ZEE MD 08/04/2023 8:47:30 AM I was physically present for the entire viewing portion of the exam. EVER ZEE MD Number of Addenda: 0 Note Initiated On: 08/04/2023 7:25 AM MRN: ?[id number] Procedure Date: ? 08/04/2023 7:25:15 AM Total Procedure Duration: 0 hours 3 minutes 40 seconds Estimated Blood Loss: ? Scope In: 7:47:47 AM Scope Out: 7:51:27 AM RADIOLOGY RESULTS 08/04/2023 7:25 AM DISABILITY INSURANCE CLAIM EXAMINER Ever Zee MD PROCEDURES RADIOLOGY RESULTS * (ABNORMAL) Glucose by meter (08/04/2023 6:50 AM DISABILITY INSURANCE CLAIM EXAMINER) GLUCOSE BY METER POCT 182(H) 70 - 99 mg/dL 08/04/2023 6:57 AM DISABILITY INSURANCE CLAIM EXAMINER RH LABORATORY POC Comment:Dr/RN Notified Blood, Capillary BLOOD SPECIMEN / Unknown 08/04/2023 6:50 AM DISABILITY INSURANCE CLAIM EXAMINER 08/04/2023 6:57 AM DISABILITY INSURANCE CLAIM EXAMINER Ever Zee MD LAB - [facility] LABORATORY [facility] Acute Care Lab [address] Lab (1st floor, no room number) [place] [address], [facility] [phone] * LAB RESULT - HIM SCAN (07/25/2023 12:00 AM DISABILITY INSURANCE CLAIM EXAMINER) 07/25/2023 Provider Outside NON-BEAKER LAB TE STING * EKG CARDIAC - HIM SCAN (07/25/2023 12:00 AM DISABILITY INSURANCE CLAIM EXAMINER) 07/25/2023 Provider Outside ECG ORDERABLES documented in this encounter Visit Diagnoses Diagnosis Hemorrhoids, unspecified hemorrhoid type- Primary documented in this encounter Administered Medications Inactive [...] 4 grams/day., Pre-procedure $Given 08/04/2023 6:56 AM DISABILITY INSURANCE CLAIM EXAMINER 975 mg fentaNYL (PF) (SUBLIMAZE) injection 25 mcg 25 [...] Mon08/04/23 at 0840 Restarted 08/04/2023 7:38 AM DISABILITY INSURANCE CLAIM EXAMINER $New Bag 08/04/2023 6:52 AM DISABILITY INSURANCE CLAIM EXAMINER 10 mL/hr lactated ringers infusion at 100 [...] after each dose. $Given 08/04/2023 9:10 AM DISABILITY INSURANCE CLAIM EXAMINER 1 mg naloxone (NARCAN) injection 0.2 mg [...] Starting on Mon08/04/23 at 0852, Phase ll documented in this encounter Active and Recently Administered Medications Times are shown in DISABILITY INSURANCE CLAIM EXAMINER. Scheduled Medication Order 08/02/2023 08/03/2023 08/04/2023 acetaminophen [...] ll documented in this encounter Care Teams Manager Voice Relationship Specialty Start Date End Date Lina Meléndez MD [facility] & [address] [address] PCP - General Internal Medicine 12/26/14 Rhoda Sarabia I [address] [place] [address] Welding Systems And Equipment Repairer Dietitian, Registered 02/20/20 documented as of this encounter
--- OUTSIDE RECORDS SUMMARY | 2023-08-16 07:09 | XMS_ITS | Encounter Summary ---
Author Name Unknown Organization [facility] Address [address] [place] [address] Care Team Providers Care Java Developer With Security Clearance Name Role Phone Lina Meléndez MD Primary Care Provider Rhoda Sarabia I Unavailable Encounter Details Date Type Department Care Team (Latest Contact Info) Description 08/04/2023 Travel Social History Tobacco Use Types Packs/Day [...] on filedocumented in this encounter Care Teams Java Developer With Security Clearance Relationship Specialty Start Date End Date Lina Meléndez MD [facility] [address] [place] [address] PCP - General Internal Medicine 12/26/14 Rhoda Sarabia I [address] [place] [address] Clinic Nurse Dietitian, Registered 02/20/20 documented as of this encounter
--- OUTSIDE RECORDS SUMMARY | 2023-08-16 07:09 | XMS_ITS | Continuity of Care Document ---
Author Name Unknown Organization [facility] Address [address] [address] [place] [address] Phone Care Team Providers Care Taco Maker Name Role Phone No Information Unavailable Unavailable [...] Diagnoses Date Provider Providers Copied on Encounter [facility], [address] [address], [place], [place], [id number], tel:[phone] No Information 3 No Information [facility], [address] [address], [place], [place], [id number], [place] tel:[phone] [facility] No Information 5 No Information Referring Provider: Coleman Dye MD G, [facility] [place], [address]. tel:[phone] Family History Family Member Type Diagnosis Age At Onset No Information Payers Payer name Insurance type Covered libertarian ID Authoriza tion(s) No Information Social History [...]
--- OUTSIDE RECORDS SUMMARY | 2023-08-16 07:09 | XMS_ITS | Encounter Summary ---
Author Name Unknown Organization [facility] Address [address] [place] [address] Care Team Providers Care Leaf Fat Scraper Name Role Phone Lina Meléndez MD Primary Care Provider Rhoda Sarabia I Unavailable Encounter Details Date Type Department Care Team (Latest Contact Info) Description 07/26/2023 Travel Social History Tobacco Use Types Packs/Day [...] on filedocumented in this encounter Care Teams Leaf Fat Scraper Relationship Specialty Start Date End Date Lina Meléndez MD [facility] [address] [place] [address] PCP - General Internal Medicine 12/26/14 Rhoda Sarabia I [address] [place] [address] Dietitian, Registered 02/20/20 documented as of this encounter
--- OUTSIDE RECORDS SUMMARY | 2023-08-16 07:10 | XMS_ITS | Encounter Summary ---
Author Name Unknown Organization [facility] Address [address] [place] [address] Care Team Providers Care Gi Physician Name Role Phone Unavailable Primary Care Provider Unavailabl e Reason for Visit * Appointment Request (Routine) - Closed Specialty Diagnoses / Procedures Referred By Caroline t Referred To Contact Nephrology and Hypertension Referral ID Status Reason Start Date Expiration Date Visits Re quested Visits Authorized [id number] Closed 02/16/2023 02/16/2024 1 1 Encounter Details Date Type Department Care Team (Latest Contact Info) Description 04/04/2023 3:00 PM CDT External Outreach Division of Nephrology and Hypertension in [place], [place] [address] [place] [address] Joshua Lopez Jr., D.O. [address] [place] [address] Hypertension And Chronic Kidney Disease Stage 1 [...] How often do you attend chur or confucianism services? More than 4 times per year 02/12/2022 Do you belong to any clubs o r organizations such as faith groups, unions, fraternal or athletic groups, or [...] medical care, and heating? Somewhat hard 02/12/2022 [facility] [place] of Occupat ional Health - Occupational Stress [...] or slept in a long-term (including now)? No 02/12/2022 Nutrition Answer Date [...] provider on file. SUBJECTIVE REASON FOR VISIT [facility] out [facility] Follow-up regards CKD [...] Rfl: flash glucose scanning reader (FREESTYLE KYLIE) [facility] [place], , Disp: , Rfl: flash glucose sensor [...]
--- OUTSIDE RECORDS SUMMARY | 2023-08-16 07:10 | XMS_ITS | Encounter Summary ---
Author Name Unknown Organization [facility] Address [address] [place] [address] Care Team Providers Care Bus Or Truck Garage Mechanic Name Role Phone Unavailable Primary Care Provider Unavailabl e Reason for Visit * Appointment Request (Routine) - Closed Specialty Diagnoses / Procedures Referred By Caroline t Referred To Contact Nephrology and Hypertension Referral ID Status Reason Start Date Expiration Date Visits Re quested Visits Authorized [id number] Closed 11/03/2022 11/03/2023 1 1 Encounter Details Date Type Department Care Team (Latest Contact Info) Description 11/28/2022 3:30 PM CDT External Outreach Division of Nephrology and Hypertension in [place], [place] [address] [place] [address] Joshua Lopez Jr., D.O. [address] [place] [address] Hypertension And Chronic Kidney Disease Stage 1 [...] How often do you attend chur or yarsanism services? More than 4 times per year 02/12/2022 Do you belong to any clubs o r organizations such as rastafarian groups, unions, fraternal or athletic groups, or [...] medical care, and heating? Somewhat hard 02/12/2022 [facility] [place] of Occupat ional Health - Occupational Stress [...] provider on file. SUBJECTIVE REASON FOR VISIT [place] out [facility] Follow-up regards hyponatremia, [...] Rfl: flash glucose scanning reader (FREESTYLE KYLIE[place] [facility] [place], , Disp: , Rfl: flash glucose sensor [...]
--- OUTSIDE RECORDS SUMMARY | 2023-08-16 07:10 | XMS_ITS | Encounter Summary ---
Author Name Unknown Organization [facility] Address [address] [place] [address] Care Team Providers Care Communications Project Manager Name Role Phone Unavailable Primary Care Provider Unavailabl e Reason for Visit * Appointment Request (Routine) - Closed Specialty Diagnoses / Procedures Referred By Caroline t Referred To Contact Nephrology and Hypertension Referral ID Status Reason Start Date Expiration Date Visits Re quested Visits Authorized [id number] Closed 12/16/2022 12/16/2023 1 1 Encounter Details Date Type Department Care Team (Latest Contact Info) Description 02/06/2023 2:30 PM CDT External Outreach Division of Nephrology and Hypertension in [place], [place] [address] [place] [address] Joshua Lopez Jr., D.O. [address] [place] [address] Hypertension And Chronic Kidney Disease Stage 1 [...] How often do you attend chur or quaker services? More than 4 times per year 02/12/2022 Do you belong to any clubs o r organizations such as orthodoxy groups, unions, fraternal or [...] medical care, and heating? Somewhat hard 02/12/2022 [facility] [place] of Occupat ional Health - Occupational Stress [...] or slept in a half-way (including now)? No 02/12/2022 Nutrition Answer Date [...] provider on file. SUBJECTIVE REASON FOR VISIT [facility] Follow-up regards labile [...] Rfl: flash glucose scanning reader (FREESTYLE KYLIE) [facility], , Disp: , Rfl: flash glucose sensor (FREESTYLE KYLEI) kit, , Disp: , Rfl: fluticasone (FLONASE) [...]
--- OUTSIDE RECORDS SUMMARY | 2023-08-16 07:10 | XMS_ITS | Clinical Summary ---
Author Name Unknown Organization [facility] Address [address] [place] [address] Care Team Providers Care Laundry Operator Name Role Phone Unavailable Primary Care Provider Unavailabl e Source Comments Patient records contain information from all sites at [facility]. For routine questions regarding patient records, call [phone] during business hours, M-F 8:00 AM - 5:00 PM Central Time. Record requests for emergency care only can be directed to [phone] at any time.[facility] Allergies Active Allergy Reactions Criticality Noted Date [...] from 12/21/2021:Stage Unknown(pT1b, pNX, cM0, G2, ER+, OH+, HER2-, Oncotype DX score: 17) - Unsigned Hyponatremia 03/08/2021 Diabetes Mellitus Type 2 01/31/2009 Overview: DM II [Diabetes mellitus type II] Hypertension And Chronic Kidney Disease Stage 1 To 4 01/31/2009 Overview: Hypertension Encounters Date Type Department Care Team Description 06/05/2023 3:30 PM QUAL FIELD MANAGER External Outreach Division of Nephrology and Hypertension in [place], [place] [address] [place] [address] Joshua Lopez Jr., D.O. Hypertension And Chronic Kidney Disease Stage 1 To 4 (Primary Dx); Diabetes Mellitus Type 2 (HCC); Hyponatremia; Malignant Neoplasm Of Breast Upper Outer Quadrant Female Right (HCC); Dietary Folate Deficiency Anemia from Last 3 Months Immunizations Name Administration Dates Next Due SARS-COV-2 (COVID-19) - PFIZ ER (Discontinued)(12 years or older) 08/04/2020,07/14/2020 Family History Medical History Relation Name [...] week 02/12/2022 How often do you attend [facility] or [facility] services? More than 4 times per year 02/12/2022 Do you belong to any clubs o r organizations such as hinduism groups, unions, fraternal or [...] medical care, and heating? Somewhat hard 02/12/2022 [facility] [place] of Occupat ional Health - Occupational Stress [...] or slept in a intermediate (including now)? No 02/12/2022 Nutrition Answer Date [...] Comments Blood Pressure 122/60 06/05/2023 3:55 PM QUAL FIELD MANAGER Pulse 66 06/05/2023 3:55 PM QUAL FIELD MANAGER Temperature 36.5 ??C (97.7 ??F) 02/18/2022 1:38 PM CD T Respiratory Rate - - Oxygen Saturation - - Inhaled Oxygen Concentration - - Weight 70.3 kg (154 lb 15.7 oz) 06/05/2023 3:55 PM QUAL FIELD MANAGER Height 165 cm (5' 4.96) 06/05/2023 3:55 PM QUAL FIELD MANAGER Body Mass Index 25.82 06/05/2023 3:55 PM QUAL FIELD MANAGER Plan of Treatment Health Maintenance Due Date [...] OUTSIDE MR NEURO Routine 06/23/2023 3:40 PM QUAL FIELD MANAGER from Last 3 Months Results * MR thoracic spine wo/w con-Outside MR Neuro (06/23/2023 3:40 PM QUAL FIELD MANAGER) Narrative [facility] - 06/28/2023 4:44 PM QUAL FIELD MANAGER This order has been created and auto-finalized to support the import of outside images. If available, original interpretation can be found on the Media Tab in Chart Review, in Document Viewer, or as an image in QREADS. If a re-interpretation or overread is required please follow defined workflow. ?? Provider Not In System IMG MRI PROCEDURE S [facility] NA from Last 3 Months
--- OUTSIDE RECORDS SUMMARY | 2023-08-16 07:10 | XMS_ITS ---
Author Name Unknown Organization [facility] Address [address] [place] [address] Care Team Providers Care Chief Procurement Officer Name Role Phone Unavailable Unavailable Unavailable Surgery Details Not on file Complications Check Surgery Details section. Procedure Estimated Blood Loss Check Surgery Details section. Procedure Findings Check Surgery Details section. Procedure Specimens Taken Check Surgery Details section.
--- OUTSIDE RECORDS SUMMARY | 2023-08-16 07:10 | XMS_ITS | Referral Summary ---
Author Name Unknown Organization [facility] Address [address] [place] [address] Care Team Providers Care News Copy Editor Name Role Phone Unavailable Primary Care Provider Unavailabl e Source Comments Patient records contain information from all sites at [facility]. For routine questions regarding patient records, call [phone] during business hours, M-F 8:00 AM - 5:00 PM Central Time. Record requests for emergency care only can be directed to [phone] at any time.[facility] Encounters Date Type Department Care Team Description 06/05/2023 3:30 PM MAMMAL CONTROL AGENT External Outreach Division of Nephrology and Hypertension in [place], [place] [address] [place] [address] Joshua Lopez Jr., D.O. Hypertension And Chronic [...] 0 12/20/2021 Active flash glucose scanning reader (CelladonSTYLE KYLIE) misc 0 12/31/2021 Active flash glucose [...] from 12/21/2021:Stage Unknown(pT1b, pNX, cM0, G2, ER+, NE+, HER2-, Oncotype DX score: 17) - Unsigned Hyponatremia 03/08/2021 Diabetes Mellitus Type 2 01/31/2009 Overview: DM II [Diabetes mellitus type II] Hypertension And Chronic Kidney Disease Stage 1 To 4 01/31/2009 Overview: Hypertension Immunizations Name Administration Dates Next Due SARS-COV-2 (COVID-19) - PFIZ ER (Discontinued)(12 years or older) 08/04/2020,07/14/2020 Social History Tobacco Use Types Packs/Day [...] How often do you attend chur or rastafarian services? More than 4 times per year 02/12/2022 Do you belong to any clubs o r organizations such as congregational groups, unions, fraternal or [...] medical care, and heating? Somewhat hard 02/12/2022 [facility] [place] of Occupat ional Health - Occupational Stress [...] or slept in a chcf (including now)? No 02/12/2022 Nutrition Answer Date [...] Comments Blood Pressure 122/60 06/05/2023 3:55 PM MAMMAL CONTROL AGENT Pulse 66 06/05/2023 3:55 PM MAMMAL CONTROL AGENT Temperature 36.5 ??C (97.7 ??F) 02/18/2022 1:38 PM CD T Respiratory Rate - - Oxygen Saturation - - Inhaled Oxygen Concentration - - Weight 70.3 kg (154 lb 15.7 oz) 06/05/2023 3:55 PM MAMMAL CONTROL AGENT Height 165 cm (5' 4.96) 06/05/2023 3:55 PM MAMMAL CONTROL AGENT Body Mass Index 25.82 06/05/2023 3:55 PM MAMMAL CONTROL AGENT Plan of Treatment Not on file Procedures Procedure Name Priority Date/Time Associated Diagnosis Comments OUTSIDE MR NEURO Routine 06/23/2023 3:40 PM MAMMAL CONTROL AGENT from Last 3 Months Results * MR thoracic spine wo/w con-Outside MR Neuro (06/23/2023 3:40 PM MAMMAL CONTROL AGENT) Narrative [facility] - 06/28/2023 4:44 PM MAMMAL CONTROL AGENT This order has been created and auto-finalized [...]
--- OUTSIDE RECORDS SUMMARY | 2023-08-16 07:10 | XMS_ITS | Encounter Summary ---
Author Name Unknown Organization [facility] Address [address] [place] [address] Care Team Providers Care Shaker Plate Operator Name Role Phone Unavailable Primary Care Provider Unavailabl e Reason for Visit * Appointment Request (Routine) - Closed Specialty Diagnoses / Procedures Referred By Caroline t Referred To Contact Nephrology and Hypertension Referral ID Status Reason Start Date Expiration Date Visits Re quested Visits Authorized [id number] Closed 05/26/2023 05/25/2024 1 1 Encounter Details Date Type Department Care Team (Latest Contact Info) Description 06/05/2023 3:30 PM LEAD PRESSMAN ROTO GRAVURE PRINTING External Outreach Division of Nephrology and Hypertension in [place], [place] [address] [place] [address] Joshua Lopez Jr., D.O. [address] [place] [address] Hypertension And Chronic Kidney Disease Stage 1 [...] How often do you attend chur or muslim services? More than 4 times per year 02/12/2022 Do you belong to any clubs o r organizations such as tenriism groups, unions, fraternal or [...] medical care, and heating? Somewhat hard 02/12/2022 [facility] [place] of Occupat ional Health - Occupational Stress [...] Comments Blood Pressure 122/60 06/05/2023 3:55 PM LEAD PRESSMAN ROTO GRAVURE PRINTING Pulse 66 06/05/2023 3:55 PM LEAD PRESSMAN ROTO GRAVURE PRINTING Temperature - - Respiratory Rate - - Oxygen Saturation - - Inhaled Oxygen Concentration - - Weight 70.3 kg (154 lb 15.7 oz) 06/05/2023 3:55 PM LEAD PRESSMAN ROTO GRAVURE PRINTING Height 165 cm (5' 4.96) 06/05/2023 3:55 PM LEAD PRESSMAN ROTO GRAVURE PRINTING Body Mass Index 25.82 06/05/2023 3:55 PM LEAD PRESSMAN ROTO GRAVURE PRINTING documented in this encounter Progress Notes * Joshua Lopez Jr., D.Dillon. - 06/05/2023 3:30 PM CST Referring Provider: No primary care provider on file. SUBJECTIVE REASON FOR VISIT [facility] Follow-up for hypertension, [...] surgery her serum sodium remained stable between [id number]. Past Medical History: Diagnosis Date Anemia Of [...] Rfl: flash glucose scanning reader (FREESTYLE DAJA) [facility] [place], , Disp: , Rfl: flash glucose sensor [...] Time: 25 minutes Joshua Lopez Jr., D.O. PRESSMAN ROTO GRAVURE PRINTING documented in this encounter Plan of Treatment Not on file documented as of this encounter Visit Diagnoses Diagnosis Hypertension And Chronic Kidney Disease Stage 1 To 4- Primary Diabetes Mellitus Type 2 (HCC) Hyponatremia Malignant Neoplasm Of Breast Upper Outer Quadrant Female Right (HCC) Dietary Folate Deficiency Anemia documented in this encounter
--- OUTSIDE RECORDS SUMMARY | 2023-08-16 07:10 | XMS_ITS ---
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
--- OUTSIDE RECORDS SUMMARY | 2023-08-16 07:10 | XMS_ITS | Encounter Summary ---
Author Name Unknown Organization [facility] Address [address] [place] [address] Care Team Providers Care Hat Cutter Name Role Phone Unavailable Primary Care Provider Unavailabl e Encounter Details Date Type Department Care Team (Late st Contact Info) Description 02/08/2023 Orders Only Division of Nephrology and Hypertension in [place], [place] [address] [place] [address] Joshua Lopez Jr., D.O. [address] [place] [address] Social History Tobacco Use Types Packs/Day Years [...] often do you attend chur ch or islam services? More than 4 times per year 02/12/2022 Do you belong to any clubs o r organizations such as buddhism groups, unions, fraternal or athletic groups, or [...] medical care, and heating? Somewhat hard 02/12/2022 [facility] [place] of Occupat ional Health - Occupational Stress [...]
--- NOTE | 2023-08-16 07:15 | US_ITS ---
Final Report Patient: DANDRE CRISOSTOMO Facility:?[facility] Patient ID:?[id number] Site Patient ID:?[id number]. Site :?[id number] Study:?US Abdomen renal-08/16/2023 8:14:48 AM Ordering Physician:LUIZ Final Report: INDICATION: Right renal lesion seen on CT TECHNIQUE: Renal ultrasound. Schultz-scale and color Doppler sonographic images of the kidneys acquired. COMPARISON: 05/14/[address] FINDINGS: Right kidney:Normal cortical echogenicity. Two simple cysts in the lateral kidney measuring 1.8 and 1.3 cm. No solid renal mass. No hydronephrosis. 10.2 cm pole to pole. Left kidney:Normal cortical echogenicity. No solid renal mass. No hydronephrosis.12.1 cm pole to pole. IMPRESSION: Benign simple cysts account for the right kidney findings on the CT. Normal exam. Dictated by Ag Thompson MD @ 08/16/2023 9:09:00 AM (Electronic Signature)
== END 2023-08-16 07:07 | disposition home or self-care (01) ==
LOC: US 07:06
PROVIDERS: PCP Internal Medicine; Visit Provider Internal Medicine Nephrology
DX: N28.9 Disorder of kidney and ureter, unspecified (principal); N28.1 Cyst of kidney, acquired
CPT/HCPCS: 76775

== ENCOUNTER 2023-08-17 10:30 | Outpatient (RCR) | payer MEDICARE, SELFPAY | END 2023-12-26 23:59 | disposition home or self-care (01) | LOC: CCIC 10:30 | PROVIDERS: PCP Internal Medicine; Visit Provider Physician Assistant | DX: C50.911 Malignant neoplasm of unspecified site of right female breast (principal); Z17.0 Estrogen receptor positive status [ER+]; M81.0 Age-related osteoporosis without current pathological fracture; Z86.73 Personal history of transient ischemic attack (TIA), and cerebral infarction without residual deficits; I89.0 Lymphedema, not elsewhere classified | CPT/HCPCS: 99214; 99215; G0463 ==

== ENCOUNTER 2023-09-20 01:48 | Outpatient (CLI) | payer MEDICARE, SELFPAY | END 2023-09-20 01:49 | disposition home or self-care (01) | LOC: AMB 09-28 22:49 | PROVIDERS: PCP Internal Medicine; Visit Provider Podiatrist | DX: R06.09 Other forms of dyspnea (principal) | CPT/HCPCS: A0425; A0427 ==

== ENCOUNTER 2023-09-20 02:24 | Emergency (ER) | payer MEDICARE, SELFPAY ==
[2023-09-20] VITALS (12 sets, daily range): BP systolic 161–189; BP diastolic 78–138; PULSE 71–86; RESP 16–20; TEMP 36.6; O2SAT 96–100; BMI 25.0
--- NOTE | 2023-09-20 02:49 | ED.SOB ---
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 Patient reports that around 2100 she started feeling unwell and had some shortness of breath. Patient states that she was trying to walk up stairs and had a hard time breathing and felt as if her breath was heavy. Patient states that she noticed her blood glucose level was 98 which she reports is borderline low for her so she did take a glucose shot and her blood glucose level improved to 99. Patient states that she felt worst and tried taking a total of 4 glucose shots but continued to feel worse and had multiple episodes of nausea, vomiting. Patient states that this past Monday after she was exposed to a lot of people and thought that maybe she had the flu however her symptoms persisted so eventually called EMS. Patient denies any fever, chills, chest pain, abdominal pain. Patient states that she does have chronic constipation and did have a little bit of pain in her lower abdomen which she typically may get it she has a buildup of stool. Patient states she was able to have a bowel movement when EMS arrived. Patient reports recently sick with a cold last week. Patient reports taking her medications as prescribed. No other complaints. Related Data Home oxygen amount: none Home Medications Medication Instructions Recorded Confirmed acetaminophen 500 mg tablet 1,000 mg PO Q6H PRN 07/28/22 09/20/23 (Tylenol Extra Strength) biotin 2,500 mcg capsule 5,000 mcg PO DAILY 09/19/22 09/20/23 calcium carbonate 600 mg-vitamin 1 cap PO DAILY 09/19/22 09/20/23 D3 25 mcg (1,000 unit) capsule glucos sul [id number]-Mn 1 cap PO DAILY 09/19/22 09/20/23 [Glucosamine Chondroitin] valacyclovir 500 mg tablet 500 mg PO BID PRN 09/19/22 09/20/23 insulin aspart U-100 100 unit/mL 4 - 9 unit subcut TIDWM 02/14/23 09/20/23 (3 mL) subcutaneous pen (Novolog FlexPen U-100 Insulin aspart) folic acid 1 mg tablet 1 mg PO QDAY 04/04/23 09/20/23 nifedipine 30 mg tablet,extended 30 mg PO QDAY 04/04/23 09/20/23 release 24 hr (Procardia XL) magnesium oxide 400 mg (241.3 mg 400 mg PO BID 04/10/23 09/20/23 magnesium) tablet insulin glargine 100 unit/mL (3 16 unit subcut QAM 04/14/23 09/20/23 mL) subcutaneous pen clindamycin phosphate 1 % topical 1 applic topical DAILY 09/20/23 09/20/23 gel, once daily Previous Rx's Medication Instructions Recorded carvedilol 6.25 mg tablet 6.25 mg PO BID #180 tabs 06/23/22 clopidogrel 75 mg tablet (Plavix) 75 mg PO DAILY #90 tabs 09/29/22 atorvastatin 10 mg tablet 10 mg PO HS #90 tabs 10/03/22 albuterol sulfate 90 mcg/actuation 2 - 4 puff inhalation Q4-6H PRN 11/01/22 aerosol inhaler shortness of breath or wheezing #6.7 grams fluticasone propionate 50 2 spray intranasal BID #16 grams 12/14/22 mcg/actuation nasal spray,suspension (Allergy Relief (fluticasone)) omeprazole 20 mg capsule,delayed 20 mg PO DAILY #90 caps 01/17/23 release flash glucose sensor (FreeStyle #2 kits 03/31/23 Daja 14 Day Sensor kit) pen needle, diabetic 31 gauge x #300 ea 06/12/2309/08 (BD Ultra-Fine Mini Pen Needle) eszopiclone 2 mg tablet (Lunesta) 2 mg PO QHS #90 tabs 06/15/23 letrozole 2.5 mg tablet 2.5 mg PO QDAY #90 tabs 06/29/23 beclomethasone dipropionate 80 2 inh PO BID #10.6 grams 08/03/23 mcg/actuation HFA breath activated aerosol (Qvar RediHaler) gabapentin 300 mg capsule 300 mg PO BID #180 caps 08/17/23 betamethasone dipropionate 0.05 % 1 applic topical BID PRN itching 09/05/23 topical cream #15 grams timolol maleate 0.5 % eye drops 1 drp ophthalmic (eye) HS #5 mL 09/14/23 Allergies Allergy/AdvReac Type Severity Reaction Status Date / Time hazelnut Allergy Severe Throat Verified 09/20/23 02:32 closes and hives Sulfa (Sulfonamide Allergy Severe Anaphylaxis Verified 09/20/23 02:32 Antibiotics) adhesive Allergy Unknown Verified 09/20/23 02:32 cantaloupe Allergy Unknown Verified 09/20/23 02:32 codeine AdvReac Mild Nausea and Verified 09/20/23 02:32 Vomiting trees Allergy Intermediate stuffed Uncoded 09/11/23 15:58 nose Sulfites Allergy Mild Rash Uncoded 09/11/23 15:58 Gluten Meal AdvReac Unknown GI Uncoded 09/11/23 15:58 intolerance Review of Systems Status of ROS: Reports: 10 or more systems reviewed and unremarkable except as noted in History and below PFSH PFSH Medical History Hyperplastic polyp of intestine ?K63.5 - Polyp of colon (ICD-10) History of depression (2001) ?Z86.59 - Personal history of other mental and behavioral disorders (ICD-10) Surgical History History of lumbar laminectomy for spinal cord decompression ?Z98.890 - Other specified postprocedural states (ICD-10) S/P breast lumpectomy (11/2021) ?Z98.890 - Other specified postprocedural states (ICD-10) History of hemorrhoidectomy ?Z98.890 - Other specified postprocedural states (ICD-10) History of basal cell carcinoma excision ?Z98.890 - Other specified postprocedural states (ICD-10) ?Z85.828 - Personal history of other malignant neoplasm of skin (ICD-10) History of foot surgery ?Z98.890 - Other specified postprocedural states (ICD-10) Hx of decompressive lumbar laminectomy ?Z98.890 - Other specified postprocedural states (ICD-10) History of cataract surgery ?Z98.49 - Cataract extraction status, unspecified eye (ICD-10) History of carpal tunnel release ?Z98.890 - Other specified postprocedural states (ICD-10) 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) ?Z96.659 - Presence of unspecified artificial knee joint (ICD-10) History of open reduction and internal fixation (ORIF) procedure (07/16/19) ?Z98.890 - Other specified postprocedural states (ICD-10) History of hysterectomy (07/08/09) ?Z90.710 - Acquired absence of both cervix and uterus (ICD-10) History of breast biopsy (07/08/09) ?Z98.890 - Other specified postprocedural states (ICD-10) History of blepharoplasty (07/08/09) ?Z98.890 - Other specified postprocedural states (ICD-10) History of bladder surgery (02/08/10) ?Z98.890 - Other specified postprocedural states (ICD-10) Family History Mother Diabetes Coronary artery disease Stroke Social History Narrative: 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 History of tobacco use She does not use recreational drugs. She really drinks alcohol. She has 1 biologic child, and 4 adopted children. What is your current living situation?: I presently have a place to live Problems where you live: no known problems Problems where you live details: none In the past 12 months, utilities in danger of being shut off: no In past 12 months, lack of transportation kept you from medical appts, meetings, work, or getting things needed for daily living: no In the past 12 mos, have been you worried that your food would run out before you had money to buy more?: never true In the past 12 mos, the food you bought just didn't last and you didn't have money to buy more?: never true Highest level of school completed/degree received: Master's degree Smoking Status: Never smoker Do you use any of these nicotine containing products: None Second hand tobacco smoke exposure: No How often do you have a drink containing alcohol: never How often do you have six or more drinks on one occasion: Never AUDIT-C Alcohol total score: 0 Non-prescribed substance use: denies use Caffeine: No How often does anyone, including family, friends and others, physically hurt you: never How often does anyone, including family, friends and others, insult or talk down to you: never How often does anyone, including family, friends and others, threaten you with harm: never How often does anyone, including family, friends and others, scream or curse at you: never Little interest or pleasure in doing things: not at all Feeling down, depressed, or hopeless: not at all service: No Exam Const: Vital Signs, click to edit/add: Vital Signs - 24 hr 09/20/23 02:28 09/20/23 02:30 09/20/23 02:31 Temperature 97.8 F Pulse Rate 86 83 Pulse Rate [Right Pulse Oximeter] 81 Respiratory Rate 20 Blood Pressure 161/101 H Blood Pressure [Ri ght Upper Arm] 161/100 H Pulse Oximetry 100 98 100 Oxygen Delivery Me thod Room Air Oxygen Flow Rate 09/20/23 02:41 09/20/23 02:45 09/20/23 02:59 Temperature Pulse Rate 82 82 Pulse Rate [Right Pulse Oximeter] Respiratory Rate Blood Pressure 168/78 H Blood Pressure [Ri ght Upper Arm] Pulse Oximetry 100 100 100 Oxygen Delivery Me thod Oxygen Flow Rate 09/20/23 02:59 09/20/23 03:01 09/20/23 03:22 Temperature Pulse Rate 81 76 Pulse Rate [Right Pulse Oximeter] Respiratory Rate 18 16 Blood Pressure 189/89 H 172/84 H Blood Pressure [Ri ght Upper Arm] Pulse Oximetry 100 100 97 Oxygen Delivery Me thod Nasal Cannula Room Air Oxygen Flow Rate 1 2 09/20/23 03:42 09/20/23 03:54 09/20/23 04:07 Temperature Pulse Rate 71 78 Pulse Rate [Right Pulse Oximeter] Respiratory Rate 16 16 Blood Pressure 161/138 H Blood Pressure [Ri ght Upper Arm] Pulse Oximetry 96 97 98 Oxygen Delivery Me thod Room Air Room Air Room Air Oxygen Flow Rate 09/20/23 04:11 Temperature Pulse Rate Pulse Rate [Right Pulse Oximeter] 72 Respiratory Rate 16 Blood Pressure Blood Pressure [Ri ght Upper Arm] Pulse Oximetry Oxygen Delivery Me thod Oxygen Flow Rate Documenting provider has reviewed patient's vital signs: yes Common normals: no apparent distress (anxious, mild distress), oriented x3 and alert General appearance: comfortable Orientation/consciousness: Yes awake, Yes oriented to person, Yes oriented to place and Yes oriented to time HENMT: Common normals: normocephalic, head/scalp atraumatic and moist oral mucous membranes Head and scalp: normocephalic and atraumatic Throat: posterior oropharynx normal Eye: Common normals: PERRL, EOMs intact bilaterally and conjunctivae normal Conjunctiva: conjunctiva(e) normal Pupil: PERRL Neck & C-Spine: Common normals: full ROM, no lymphadenopathy and supple General: normal visual inspection Chest: Common normals: inspection of chest normal and palpation of chest normal Resp: Common normals: normal respiratory effort, no retractions and clear to auscultation bilaterally Effort & inspection: able to speak in complete sentences Auscultation: clear to auscultation bilaterally Cardio: Common normals: regular rate and regular rhythm Rate: regular rate Rhythm: regular rhythm GI: Common normals: Normal to inspection, nondistended, normoactive bowel sounds present and soft to palpation Palpation: soft and tender (mild TTP LLQ, no rebound, no guarding, no peritoneal signs) : Common normals: no CVA tenderness Bladder/kidney exam: no CVA tenderness Back & Pelvis: Common normals: no CVA tenderness, thoracic and lumbar spine normal to inspection, no thoracic nor lumbar tenderness and thoraco-lumbar ROM normal Extremity: Common normals: normal to inspection, full ROM, no calf tenderness and no pedal edema Neuro: Common normals: oriented x3 Sensorium/orientation: awake, alert, oriented to person, oriented to place and oriented to time Speech: speech normal Motor exam: strength 5/5 throughout Psych: Common normals: mental status grossly normal, thought process normal, cooperative, affect normal and speech normal Speech: normal speech Thought process: normal thought process Skin: Common normals: no rashes or lesions noted General skin exam: no rashes or lesions noted Course Vital Signs Vital signs: Initial Vital Signs Temperature 97.8 F 09/20/23 02:28 Temperature Source Temporal Artery Scan 09/20/23 02:28 Pulse Rate 81 09/20/23 02:28 Respiratory Rate 20 09/20/23 02:28 Blood Pressure 161/100 H 09/20/23 02:28 Blood Pressure Mean 120 H 09/20/23 02:28 Blood Pressure Position Sitting 09/20/23 02:28 Pulse Oximetry 100 09/20/23 02:28 Oxygen Delivery Method Room Air 09/20/23 02:28 Vital Signs Temperature 97.8 F 09/20/23 02:28 Pulse Rate 81 09/20/23 02:28 Respiratory Rate 20 09/20/23 02:28 Blood Pressure 161/100 H 09/20/23 02:28 Pulse Oximetry 100 09/20/23 02:28 Oxygen Delivery Method Room Air 09/20/23 02:28 Temperature 97.8 F 09/20/23 02:28 Pulse Rate 72 09/20/23 04:11 Respiratory Rate 16 09/20/23 04:11 Blood Pressure 161/138 H 09/20/23 03:42 Pulse Oximetry 98 09/20/23 04:07 Oxygen Delivery Method Room Air 09/20/23 04:07 Oxygen Flow Rate 2 09/20/23 03:01 MDM - SOB/Dyspnea MDM Narrative Medical decision making narrative: Patient is a 78-year-old female with a past medical history of hypertension, asthma, type 2 diabetes on insulin, hx of CVA in the past on plavix who presents emergency department from home by EMS for evaluation of shortness of breath. Patient received DuoNeb and 1 mg of IV Ativan prior to arrival by EMS with improvement of her symptoms. Upon arrival patient is nontoxic appearing, afebrile, anxious, and mildly distressed. Patient hypertensive upon arrival, otherwise hemodynamically stable oxygen saturations initially 100% on room air. Shortly after arrival to ED patient with decreasing oxygen saturations likely secondary to IV Ativan given prior to arrival by EMS. Patient with no significant respiratory distress, no increased work of breathing, lungs are clear to auscultation bilaterally. Patient was placed on nasal cannula with improvement of oxygen saturations to 100% on room air. Will continue close monitoring. Differential diagnosis includes but is not limited to ACS versus viral illness versus pneumonia versus CHF/fluid overload versus asthma exacerbation versus anxiety versus hypoglycemic episode/metabolic/electrolyte abnormality versus infection among others. Patient does report feeling better after medications prior to arrival concurrently does not want any additional medications for her symptoms at this time. Patient resting comfortably. EKG, chest x-ray, comprehensive labs performed. I reviewed EKG which demonstrates a normal sinus rhythm with a ventricular rate of 81 beats per minute, normal axis, GA 160, no significant ST-T wave changes, no acute ischemic change, no significant change when compared to prior EKG on 07/27/2023. Comprehensive labs reviewed. White blood cell count mildly elevated 11.08, hemoglobin 12.2, sodium 130, potassium 3.3, creatinine 0.5, glucose 147. Normal lipase 57, negative troponin, BNP 208, urinalysis with no evidence of acute infection, no blood. I personally reviewed interpreted chest x-ray which demonstrates no focal infiltrate, pneumothorax or evidence of pleural effusion or pulmonary edema. On re-evaluation with patient continues to rest comfortably, no distress. Patient states that she was able to doze off and sleep for a little bit while in the emergency department. Patient reports feeling better with improvement of her symptoms, patient denies any abdominal pain, denies feeling nauseated, no further episodes of vomiting. No shortness of breath. The patient was weaned off oxygen and tolerated ice chips and water in the emergency department. I discussed results with patient. ED workup unremarkable. Low suspicious for ACS given patient's clinical symptoms, EKG and troponin normal without acute ischemic change. Chest x-ray with no evidence of acute infection or fluid overload. Less likely asthma exacerbation given clear lungs, no wheezing, no respiratory distress. Viral testing negative (COVID/RSV/influenza). Consider diverticulitis/obstruction/constipation and further imaging with CT scan however patient is nontoxic-appearing, afebrile, abdomen nontender, with no peritoneal signs, patient denies any abdominal pain. Patient feeling better and would like to go home. Laboratory testing with no significant evidence of infection or acute metabolic or electrolyte abnormality, no transaminitis. Lungs remain clear to auscultation bilaterally, abdomen is soft, nontender, nondistended, no rebound, no guarding, no peritoneal signs. Unclear etiology of patient's symptoms, could be related to lower glucose levels versus viral illness versus food she ate [place] restaurant this evening versus possible early infection. Patient feels comfortable with discharge home with close outpatient follow-up with her primary care provider. We did discuss strict return precautions if high fever, weakness, persistent vomiting, abdominal pain, chest pain, or any worsening symptoms. Patient and understand agree to the plan. Medical Records Attestation: I reviewed the patient's medical records. Lab Data Attestation: I reviewed the patient's lab results. Labs: Lab Results 09/20/23 09/20/23 Range/Units 02:49 02:50 WBC 11.08 H (4.50-11.00) K/uL RBC 3.94 L (4.00-5.20) m/uL Hgb 12.2 (12.0-16.0) gm/dL Hct 35.4 (33.0-51.0) % MCV 90 (80-100) fL MCH 31 (26-34) pg MCHC 35 (32-36) gm/dL RDW Coeff of Don 13.1 (11.5-15.5) % Plt Count 236 (140-440) K/uL Neut % (Auto) 89.6 H (42.0-72.0) % Lymph % (Auto) 3.9 L (20-44) % Mcpherson % (Auto) 5.1 (0.0-11.0) % Eos % (Auto) 0.5 (0.0-7.0) % Baso % (Auto) 0.1 (0.0-3.0) % Neut # (Auto) 9.90 H (1.7-7.0) K/uL Lymph # (Auto) 0.40 L (0.90-2.90) K/uL Mcpherson # (Auto) 0.60 (0.00-0.90) K/UL Eos # (Auto) 0.10 (0.00-0.50) K/uL Baso # (Auto) 0.00 (0.00-0.30) K/uL Abs Immat Gran (auto) 0.10 (0.00-0.30) K/uL Imm/Tot Granulo (auto) 0.8 % Sodium 130 L (135-149) mmol/L Potassium 3.3 L (3.6-5.1) mmol/L Chloride 98 (96-114) mmol/L Carbon Dioxide 23 (20-32) mmol/L Anion Gap 9 (7-15) mEq/L BUN 24 (7-30) mg/dL Creatinine 0.5 (0.5-1.5) mg/dL Estimated Creat Clear 43.07 Estimated GFR 97 ml/min Glucose 147 H (60-115) mg/dL Calcium 9.0 (8.4-10.6) mg/dL Total Bilirubin 1.3 (0.1-1.5) mg/dL AST 27 (12-35) U/L ALT 17 (4-35) U/L Alkaline Phosphatase 69 (40-150) U/L Troponin I < 0.01 L (0.01-0.04) ng/mL NT-Pro-B Natriuret Pep 208 pg/mL Total Protein 7.4 (6.0-8.3) g/dL Albumin 4.2 (3.3-5.0) g/dL Lipase 57 (23-300) U/L Urine Color Yellow (Yellow) Urine Appearance Clear (Clear) Urine pH 8.5 (5.0-8.5) Ur Specific [place] 1.020 (1.000-1.030) Urine Protein Negative (Negative) Urine Glucose (UA) Negative (Negative) Urine Ketones 2+ A (Negative) Urine Blood Negative (Negative) Urine Nitrite Negative (Negative) Urine Bilirubin Negative (Negative) Urine Urobilinogen 0.2 (0.2-1.0) Ur Leukocyte Esterase Negative (Negative) Urine RBC 0-2 (0-2) Urine WBC 0-2 (0-5) Ur Squamous Epith Cells Many A (None-Few) Urine Bacteria Few A (None) SARS-CoV-2 (PCR) Negative SARS-CoV-2 (Negative) Influenza Type A (PCR) Negative PCR FLU A (Negative) Influenza Type B (PCR) Negative PCR FLU B (Negative) RSV (PCR) Negative PCR RSV (Negative) Discharge Plan Discharge Clinical Impression: Shortness of breath, Type 2 diabetes mellitus, Nausea and vomiting Patient Disposition: Home, Self-Care Condition: Improved Additional Instructions: Please follow-up with your primary care provider in the next 2-3 days for further evaluation and follow-up. Please call to schedule an appointment. Please continue on medications. Please rest and drink plenty of fluids. Please return to the emergency department if you develop high fever, persistent vomiting, abdominal pain, chest pain, shortness of breath, or any worsening symptoms. It was a pleasure taking care of you today. We hope you feel better soon. Prescriptions: No Action letrozole 2.5 mg tablet 2.5 mg PO QDAY Qty: 90 0RF Rx Instructions: Take one tablet once daily. acetaminophen [Tylenol Extra Strength] 500 mg tablet 1,000 mg PO Q6H PRN valacyclovir 500 mg tablet 500 mg PO BID PRN glucos sul [id number] [Glucosamine Chondroitin] 1 cap PO DAILY biotin 2,500 mcg capsule 5,000 mcg PO DAILY calcium carbonate-vitamin D3 600 mg-25 mcg (1,000 unit) capsule 1 cap PO DAILY folic acid 1 mg tablet 1 mg PO QDAY nifedipine [Procardia XL] 30 mg tablet extended release 24hr 30 mg PO QDAY insulin glargine 100 unit/mL (3 mL) insulin pen 16 unit SUBCUT QAM insulin aspart U-100 [Novolog FlexPen U-100 Insulin] 100 unit/mL (3 mL) insulin pen 4 - 9 unit subcut TIDWM Patient Comments: sliding scale base on glucose reading Rx Instructions: sliding scale base on glucose reading clindamycin phosphate 1 % gel, once daily 1 applic topical DAILY carvedilol 6.25 mg tablet 6.25 mg PO BID Qty: 180 0RF clopidogrel [Plavix] 75 mg tablet 75 mg PO DAILY Qty: 90 3RF Hold Instructions: Resume on 02/22/23. hold until f/u appt with Dr. Meléndez atorvastatin 10 mg tablet 10 mg PO HS Qty: 90 3RF albuterol sulfate 90 mcg/actuation HFA aerosol inhaler 2 - 4 puff inhalation Q4-6H PRN (Reason: shortness of breath or wheezing) Qty: 6.7 9RF fluticasone propionate [Allergy Relief (fluticasone)] 50 mcg/actuation spray,suspension 2 spray intranasal BID Qty: 16 11RF Rx Instructions: administer into each nostril omeprazole 20 mg capsule,delayed release(DR/EC) 20 mg PO DAILY Qty: 90 3RF (DME) FreeStyle Daja 14 Day Sensor Kit See Rx Instructions .Route Qty: 2 9RF Rx Instructions: As directed magnesium oxide 400 mg (241.3 mg magnesium) tablet 400 mg PO BID (DME) pen needle, diabetic [BD Ultra-Fine Mini Pen Needle] 31 gauge x 3/16 needle See Rx Instructions .ROUTE .COMPLEX Qty: 300 2RF Dose Instruction: USE TO INJECT INSULIN UP TO 6 TIMES DAILY. Rx Instructions: USE TO INJECT INSULIN UP TO 6 TIMES DAILY. eszopiclone [Lunesta] 2 mg tablet 2 mg PO QHS Qty: 90 0RF Qvar RediHaler 80 mcg/actuation HFA aerosol breath activated 2 inh PO BID Qty: 10.6 8RF gabapentin 300 mg capsule 300 mg PO BID Qty: 180 2RF betamethasone dipropionate 0.05 % cream 1 applic TOPICAL BID PRN (Reason: itching) Qty: 15 0RF Rx Instructions: Apply to affected area twice daily as needed timolol maleate 0.5 % drops 1 drp OPHTHALMIC (EYE) HS Qty: 5 0RF Rx Instructions: Apply to fingertips at bedtime. Follow Up/Referrals: Lina Meléndez MD [Primary Care Provider] - Stand Alone Forms: [facility] Info Instructions
--- NOTE | 2023-09-20 02:50 | XR_ITS ---
Patient: DANDRE CRISOSTOMO Facility:?[facility] Patient ID:?[id number] Site Patient ID:?[id number]. Site :?[id number] Study:?XRay-Chest AP PORTABLE-09/20/2023 3:35:21 AM Ordering Physician:rosmery allen Final Report: INDICATION: Shortness of breath TECHNIQUE: Chest radiograph 1 view COMPARISON: 07/25/2023 FINDINGS: Mediastinum: The mediastinum is normal in appearance. The heart silhouette is normal in size and morphology. Lung: Both lungs are unremarkable in appearance. No sign of pleural effusion seen. No pneumothorax is identified. Bone and Soft tissue: Unremarkable for age. IMPRESSION: 1. No acute cardiopulmonary disease is seen. Dictated by: Marvin Juárez MD @ 09/20/2023 03:40:59 Signed by:?Marvin Juárez MD @09/20/2023 3:40:59 AM (Electronic Signature)
[2023-09-20 03:00] LABS: Basophils Percent Auto 0.1 % (0.0-3.0); Eosinophils Percent Auto 0.5 % (0.0-7.0); Hematocrit 35.4 % (33.0-51.0); Hemoglobin* 12.2 gm/dL (12.0-16.0); Immature Granulocytes Pct Auto 0.8 %; Lymphocytes Percent Auto 3.9 % (20-44); Mean Corpuscular HGB Conc 35 gm/dL (32-36); Mean Corpuscular Hemoglobin 31 pg (26-34); Mean Corpuscular Volume 90 fL (80-100); Monocytes Percent Auto 5.1 % (0.0-11.0); Neutrophils Percent Auto 89.6 % (42.0-72.0); Platelet Count* 236 K/uL (140-440); RDW Coefficient of Variation % 13.1 % (11.5-15.5); Red Blood Count 3.94 m/uL (4.00-5.20); White Blood Count* 11.08 K/uL (4.50-11.00)
[2023-09-20 03:07] LABS: Slide Review Reflex No
[2023-09-20 03:14] LABS: Appearance Urine Clear (Clear); Bilirubin Urine Negative (Negative); Blood Urine Negative (Negative); Color Urine Yellow (Yellow); Glucose Urine Negative (Negative); Ketones Urine 2+ (Negative); Leukocyte Esterase Urine Negative (Negative); Nitrite Urine Negative (Negative); Protein Urine Negative (Negative); Urobilinogen Urine 0.2 (0.2-1.0); pH Urine 8.5 (5.0-8.5)
[2023-09-20 03:21] LABS: Albumin* 4.2 g/dL (3.3-5.0); Chloride* 98 mmol/L (96-114); RBC Urine 0-2 (0-2); Sodium* 130 mmol/L (135-149); Squamous Epithelial Cell Urine Many (None-Few); WBC Urine 0-2 (0-5)
[2023-09-20 03:22] LABS: Bacteria Urine Few; Potassium* 3.3 mmol/L (3.6-5.1)
[2023-09-20 03:23] LABS: Creatinine* 0.5 mg/dL (0.5-1.5); Est. Creatinine Clearance* 43.07; Estimated Glomerular Filt Rate 97 ml/min
[2023-09-20 03:24] LABS: Alanine Aminotransferase* 17 U/L (4-35); Alkaline Phosphatase* 69 U/L (40-150); Anion Gap 9 mEq/L (7-15); Aspartate Amino Transferase* 27 U/L (12-35); Bilirubin Total* 1.3 mg/dL (0.1-1.5); Blood Urea Nitrogen* 24 mg/dL (7-30); Carbon Dioxide* 23 mmol/L (20-32); Glucose* 147 mg/dL (60-115); Lipase* 57 U/L (23-300); Total Protein* 7.4 g/dL (6.0-8.3)
[2023-09-20 03:33] LABS: PCR FLU A Negative PCR FLU A (Negative); PCR FLU B Negative PCR FLU B (Negative); PCR RSV Negative PCR RSV (Negative); SARS PCR* Negative SARS-CoV-2 (Negative)
[2023-09-20 03:36] LABS: NT Pro B Type NatriureticPept* 208 pg/mL; Troponin I* < 0.01 ng/mL (0.01-0.04)
== END 2023-09-20 04:55 | disposition home or self-care (01) ==
PROVIDERS: Emergency Provider Emergency Medicine; PCP Internal Medicine
DX: R06.02 Shortness of breath (principal); E11.9 Type 2 diabetes mellitus without complications; R11.2 Nausea with vomiting, unspecified
CPT/HCPCS: 36415; 71045; 80053; 81001; 83690; 83880; 84484; 85025; 87086; 87186; 87631; 93005; 94761; 99285

== ENCOUNTER 2023-09-29 15:07 | Outpatient (CLI) | payer MEDICARE, SELFPAY ==
--- OUTSIDE RECORDS SUMMARY | 2023-09-29 15:10 | XMS_ITS | Clinical Summary ---
Author Name Unknown Organization [facility] Address [address] [place] [address] Care Team Providers Care Smeller Name Role Phone Lina Meléndez MD Primary Care Provider [phone] Source Comments You are receiving this document as you are listed as the primary care provider,follow-up provider, or the patient has been referred to you for consultation.This is in compliance with the Medicare and[facility] Hospital[facility] EHR Incentive Program,which states Providers who transition their patient to another setting of careor provider of care or refers their patient to another provider of care shouldprovide summary care record for each transition of care or referral. [facility] Allergies Active Allergy Reactions Criticality Noted Date [...] Overview: Added automatically from request for surgery [id number] TC (obstructive sleep apnea) 11/05/2018 Arthritis of [...] Backache 03/23/2007 Major depressive disorder, recurrent episode Osteoarthritis 11/30/2002 Overview: DJD Social History Tobacco Use [...] Comments Blood Pressure 147/63 07/17/2019 2:34 PM MULTI CRAFT MAINTENANCE TECHNICIAN Pulse 75 07/17/2019 2:34 PM MULTI CRAFT MAINTENANCE TECHNICIAN Temperature 36.7 ??C (98.1 ??F) 07/17/2019 2:34 PM CS T Respiratory Rate 18 07/17/2019 2:34 PM MULTI CRAFT MAINTENANCE TECHNICIAN Oxygen Saturation 99% 07/17/2019 2:34 PM MULTI CRAFT MAINTENANCE TECHNICIAN Inhaled Oxygen Concentration - - Weight 75 kg (165 lb 6.4 oz) 07/16/2019 10:19 AM MULTI CRAFT MAINTENANCE TECHNICIAN Height 165.1 cm (5' 5) 07/16/2019 10:19 AM MULTI CRAFT MAINTENANCE TECHNICIAN Body Mass Index 27.52 07/16/2019 10:19 AM MULTI CRAFT MAINTENANCE TECHNICIAN Plan of Treatment Health Maintenance Due Date Last Done Comments Diabetes: Eye Exam 1945 Diabetes: Foot Exam 1945 Diabetes: Lipid Panel 1945 Diabetes: Urine Microalbumin 1945 Hep C Screening (Preventive Services) 1947 Dexa 2012 Diabetes: HGBA1C 10/16/2019 07/17/2019, 05/21/2016 Diabetes: Creatinine 07/17/2020 07/17/2019, 05/05/2007, 02/04/2004 COVID-19 Vaccine ( season) 2023 08/04/2020, 07/14/2020 Influenza (#1) 2023 03/31/2020, 1006/2018, 03/31/2017, Additional history exists Medicare Annual Wellness [...] this topic Medical Devices Implanted Type Area Fire Behavior Analyst Device Identifier Shelf Expiration Date Model / Serial / Lot Chip Canpolo Brunner 30cc - [id number] Implanted:Qty : 1 on 07/16/2019 by Edelmira Rodriguez MD at [facility] DEVICE Left: SHOULDER Medtronic - [employer] 08/14/2023 [id number] / / [id number] Scr Star Lk Sftp 3.5x48 - [id number] Implanted:Qty : 1 on 07/16/2019 by Edelmira Rodriguez MD at [facility] DEVICE Left: HUMERUS MIDSHAFT DePuy Synthes - Trauma 212.120 / / Scr Cj Sftp Ss 3.5x32 F-Thrd - [id number] Implanted:Qty : 1 on 07/16/2019 by Edelmira Rodriguez MD at [facility] DEVICE Left: HUMERUS MIDSHAFT DePuy Synthes - Trauma 204.832 / / [id number] Plt Prox Hum 3.5x90 6h/3h - [id number] Implanted:Qty : 1 on 07/16/2019 by Edelmira Rodriguez MD at [facility] DEVICE Left: SHOULDER DePuy Synthes - Trauma 241.901 / / [id number] Scr Cj Sftp Ss 3.5x26 F-Thrd - [id number] Implanted:Qty : 1 on 07/16/2019 by Edelmira Rodriguez MD at [facility] DEVICE Left: HUMERUS MIDSHAFT DePuy Synthes - Trauma 204.826 / / Description:3.5mm 26mm Scr Cj Sftp Ss 3.5x28 F-Thrd - [id number] Implanted:Qty : 1 on 07/16/2019 by Edelmira Rodriguez MD at [facility] DEVICE Left: HUMERUS MIDSHAFT De[employer]uy Synthes - Trauma 204.828 / / Scr Star Lk Sftp 3.5x34 - [id number] Implanted:Qty : 1 on 07/16/2019 by Edelmira Rodriguez MD at [facility] DEVICE Left: HUMERUS MIDSHAFT [employer] Synthes - Trauma 212.113 / / Scr Star Lk Sftp 3.5x36 - [id number] Implanted:Qty : 2 on 07/16/2019 by Edelmira Rodriguez MD at [facility] DEVICE Left: HUMERUS MIDSHAFT De[employer] Synthes - Trauma 212.115 / / Scr Star Lk Sftp 3.5x40 - [id number] Implanted:Qty : 2 on 07/16/2019 by Edelmira Rodriguez MD at [facility] DEVICE Left: HUMERUS MIDSHAFT De[employer]uy Synthes - Trauma 212.117 / / Scr Star Lk Sftp 3.5x45 - [id number] Implanted:Qty : 1 on 07/16/2019 by Edelmira Rodriguez MD at [facility] DEVICE Left: HUMERUS MIDSHAFT DePuy Synthes - Trauma 212.119 / / Scr Star Lk Sftp 3.5x46 - [id number] Implanted:Qty : 1 on 07/16/2019 by Edelmira Rodriguez MD at [facility] DEVICE Left: HUMERUS MIDSHAFT DePuy Synthes - Trauma 212.136 / / Procedures Procedure Name Priority Date/Time Associated Diagnosis Comments BASIC METABOLIC PANEL Routine 07/17/2019 7:49 AM MULTI CRAFT MAINTENANCE TECHNICIAN HGB A1C Routine 07/17/2019 7:49 AM MULTI CRAFT MAINTENANCE TECHNICIAN from Last 3 Months or Most Recently Relevant to Health Maintenance Results * (ABNORMAL) Basic Metabolic Panel (IN AM) (07/17/2019 7:49 AM MULTI CRAFT MAINTENANCE TECHNICIAN) Pathologist [facility] Sodium 131(L) 136 - 145 mmol/L 07/17/2019 8:42 AM MULTI CRAFT MAINTENANCE TECHNICIAN [facility] Potassium 3.3(L) 3.5 - 5.1 mmol/L 07/17/2019 8:42 AM MULTI CRAFT MAINTENANCE TECHNICIAN [facility] Chloride 98 98 - 109 mmol/L 07/17/2019 8:42 AM MULTI CRAFT MAINTENANCE TECHNICIAN [facility] CO2 25 20 - 29 mmol/L 07/17/2019 8:42 AM MULTI CRAFT MAINTENANCE TECHNICIAN [facility] Anion Gap 8 7 - 16 mmol/L 07/17/2019 8:42 AM MULTI CRAFT MAINTENANCE TECHNICIAN [facility] Calcium 8.4 8.4 - 10.4 mg/dL 07/17/2019 8:42 AM MULTI CRAFT MAINTENANCE TECHNICIAN [facility] BUN 16 7 - 26 mg/dL 07/17/2019 8:42 AM MULTI CRAFT MAINTENANCE TECHNICIAN [facility] Creatinine 0.65 0.55 - 1.02 mg/dL 07/17/2019 8:42 AM MULTI CRAFT MAINTENANCE TECHNICIAN [facility] GFR, Estimated >60 >60 mL/min/1.7 3m2 07/17/2019 8:42 AM MULTI CRAFT MAINTENANCE TECHNICIAN [facility] GFR, Est If >60 >60 mL/min/1.7 3m2 07/17/2019 8:42 AM MULTI CRAFT MAINTENANCE TECHNICIAN [facility] Glucose 187(H) 70 - 100 mg/dL 07/17/2019 8:42 AM MULTI CRAFT MAINTENANCE TECHNICIAN [facility] Comment:The given reference range is for the fasting state. Non-fasting reference range for glucose is 70 - 180 mg/dL. Blood Venipuncture / Unknown 07/17/2019 7:49 AM MULTI CRAFT MAINTENANCE TECHNICIAN 07/17/2019 7:56 AM MULTI CRAFT MAINTENANCE TECHNICIAN Larisa Gaines MD LAB_1 [facility] [email or web address] * (ABNORMAL) Hemoglobin A1C Glycosylated (IN AM) (07/17/2019 7:49 AM MULTI CRAFT MAINTENANCE TECHNICIAN) Hemoglobin A1C 6.7(H) <=5.6 % 07/17/2019 1:39 PM MULTI CRAFT MAINTENANCE TECHNICIAN [facility] Blood Venipuncture / Unknown 07/17/2019 7:49 AM MULTI CRAFT MAINTENANCE TECHNICIAN 07/17/2019 7:56 AM MULTI CRAFT MAINTENANCE TECHNICIAN Narrative [facility] - 07/17/2019 1:39 PM MULTI CRAFT MAINTENANCE TECHNICIAN For patients not previously diagnosed with diabetes: 5.7-6.4%: Increased risk for diabetes 6.5% and greater: Diagnostic for diabetes For patients diagnosed with diabetes: <8.0%: Goal of therapy for ages 18-75 Clinicians may recommend a higher or lower goal for specific individuals. Larisa Gaines MD LAB_1 Performing Organization [address] [facility] de Phone Number [facility] [address] from Last 3 Months or Most Recently Relevant to Health Maintenance Advance Directives * Full Code (Latest Code Status on File) Date Activated Date Inactivated Comments 07/16/2019 4:18 PM 07/17/2019 5:47 PM Care Teams Smeller Relationship Specialty Start Date End Date Lina Meléndez MD [address] [place] [address] PCP - General Internal Medicine 12/20/18
--- OUTSIDE RECORDS SUMMARY | 2023-09-29 15:10 | XMS_ITS | Clinical Summary ---
Author Name Unknown Organization [facility] Address [address] [place] [id number] Care Team Providers Care Freelance Court Stenographer Name Role Phone Lina Meléndez MD Primary Care Provider BaconRhoda I Unavailable Allergies Active Allergy Reactions Criticality [...] Active fluticasone (FLONASE) 50 MCG/ACT nasal spray [place] 2 sprays in nostril daily 0 Active [...] mg by mouth at bedtime 0 Active glucosamine-chondroi tin 500-400 MG CAPS per capsule Take 1 [...] mg by mouth daily 0 Active senna-docusate (SENOKOT-S/PERICOLAC E) 8.6-50 MG tablet Take 1-4 tablets by mouth 2 times daily as needed for constipation 0 Active insulin aspart (NOVOLOG PEN) 100 UNIT/ML pen Inject 4-9 Units Subcutaneous 3 times daily (with meals) 0 Active oxyCODONE (ROXICODONE) 5 MG tabletIndications:He morrhoids, unspecified hemorrhoid type Take 1 tablet (5 mg) by mouth every 6 hours as needed for moderate to severe pain 12 tablet 0 08/04/2023 Active lidocaine (XYLOCAINE) 5 % external ointmentIndications: Hemorrhoids, unspecified hemorrhoid type Apply topically as needed for moderate pain Apply a pea sized amount to the perianal skin four times daily as needed for pain. 30 g 3 08/04/2023 Active Active Problems Problem Noted Date Diagnosed [...] by Conversion Osteoarthritis Overview: Created by Conversion [facility] Annotation: Dec 29 2006 3:46PM - Jojo Faustin: DJD Replacement Utility updated for latest IMO load Lower Back Pain Overview: Created by Conversion [facility] Annotation: Dec 29 2006 3:46PM - Jojo Faustin: MRI: small L5-S1 disc, degenerative changes, narrowing of bilateral neuroforamina L5-S1 and mass effect on both L5 nerves Stress Incontinence Overview: Created by Conversion Encounters Date Type Department Care Team Description 08/04/2023 7:38 AM GAS BLENDER Anesthesia Event [facility] PeriOp Services [address] [place] [address] Marlon Rueda DO 08/04/2023 7:30 AM GAS BLENDER - 08/04/2023 9:10 AM GAS BLENDER Surgery [facility]Op Services [address] [place] [address] Ever Zee MD INTAROPERATIVE Colonoscopy 08/04/2023 5:28 AM GAS BLENDER - 08/04/2023 11:05 AM GAS BLENDER Hospital Encounter [facility] PreOP/PostOP [address] [place] [address] Eevr Zee MD Hemorrhoids, unspecified hemorrhoid type (Primary [...] Comments Blood Pressure 153/88 08/04/2023 11:00 AM GAS BLENDER Pulse 79 08/04/2023 11:00 AM GAS BLENDER Temperature 36.1 ??C (97 ??F) 08/04/2023 11:00 AM GAS BLENDER Respiratory Rate 18 08/04/2023 11:00 AM GAS BLENDER Oxygen Saturation 100% 08/04/2023 11:00 AM GAS BLENDER Inhaled Oxygen Concentration - - Weight 70.9 kg (156 lb 4.8 oz) 08/04/2023 6:02 A M GAS BLENDER Height 165.1 cm (5' 5) 07/26/2023 1:00 PM GAS BLENDER Body Mass Index 26.01 07/26/2023 1:00 PM GAS BLENDER Plan of Treatment Health Maintenance Due Date Last Done Comments ADVANCE CARE PLANNING 1945 ANNUAL REVIEW OF HM ORDERS 1945 ASTHMA ACTION PLAN 1947 ASTHMA CONTROL TEST 1947 BMP 1945 DEXA 1945 DIABETIC FOOT EXAM 1947 EYE EXAM 1947 MICROALBUMIN 1947 HEPATITIS C SCREENING 1965 RSV VACCINE ( & 60+) (1 - 1-dose 60+ series) 2007 FALL RISK ASSESSMENT 2012 MEDICARE ANNUAL WELLNESS VISIT 2012 A1C 03/19/2020 12/18/2019, 03/11/2009 LIPID 12/17/2020 12/18/2019 PHQ-2 (once per calendar year) 2023 DTAP/TDAP/TD IMMUNIZATION (2 - Td or Tdap) 08/22/2024 08/22/2014, 01/22/2002, 01/22/2002, Additional history exists Pneumococcal Vaccine: 65+ Years Completed 06/07/2018, 08/22/2014, 06/10/2010 ZOSTER IMMUNIZATION Completed 10/10/2018, 06/04/2018, 03/11/2009 INFLUENZA VACCINE Completed 03/15/2023, , 03/31/2021, Additional history exists COVID-19 Vaccine Completed 03/29/2023, 08/2022, 10/26/2022, Additional history exists COLONOSCOPY Discontinued 08/04/2023, 08/04/2023 [address]ORECTAL CANCER SCREENING Discontinued CT COLONOGRAPHY Discontinued FIT Discontinued FLEX SIG Discontinued HPV IMMUNIZATION Aged Out No longer e [...] on patient's age to complete this topic sDNA (Cologuard) Discontinued Procedures Procedure Name Priority Date/Time Associated Diagnosis Comments GLUCOSE BY METER Routine 08/04/2023 9:05 AM GAS BLENDER SURGICAL PATHOLOGY EXAM Routine 08/04/2023 8:19 AM GAS BLENDER HEMORRHOIDECTOMY, INTERNAL 08/04/2023 7:38 AM GAS BLENDER Prolapsed internal hemorrhoids, grade 3 Screen for colon cancer COLONOSCOPY 08/04/2023 7:38 AM GAS BLENDER Prolapsed internal hemorrhoids, grade 3 Screen for colon cancer COLONOSCOPY Routine 08/04/2023 7:25 AM GAS BLENDER GLUCOSE BY METER Routine 08/04/2023 6:50 AM GAS BLENDER LAB RESULT - HIM SCAN 07/25/2023 12:00 AM GAS BLENDER EKG CARDIAC - HIM SCAN 07/25/2023 12:00 AM GAS BLENDER from Last 3 Months Results * (ABNORMAL) Glucose by meter (08/04/2023 9:05 AM GAS BLENDER) Only the most recent of2 resultswithin the time period is included. GLUCOSE BY METER POCT 180(H) 70 - 99 mg/dL 08/04/2023 9:13 AM GAS BLENDER LABORATORY POC Blood, Capillary BLOOD SPECIMEN / Unknown 08/04/2023 9:05 AM GAS BLENDER 08/04/2023 9:13 AM GAS BLENDER Ever Zee MD [facility] [address] [facility] Lab (1st floor, no room number) [place] [id number], [facility] [phone] * Surgical Pathology Exam (08/04/2023 8:19 AM GAS BLENDER) Case Report Surgical Pathology Report ? Case: [id number] ? Authorizing Provider: ??Ever Zee MD ?? Collected: ? 08/04/2023 08:19 AM ? Ordering Location: ? [facility] ?? Received: ?08/04/2023 08:44 AM ? Main OR ? Pathologist: ? Mario Boo MD ? Specimen: ?Rectum, Right posterior hemorroid ? 08/07/2023 1:17 PM [facility] Final Diagnosis A(1). Anal/Rectal mucosa and soft tissue, Right posterior, excision: - Polypoid colonic mucosa with prominent underlying blood vessels consistent with hemorrhoidal tissue. - Negative for dysplasia or malignancy. 08/07/2023 1:17 PM [facility] Clinical Information Procedure: INTAROPERATIVE Colonoscopy WITH EXAM UNDER ANESTHESIA OF RECTUM WITH HEMORROIDECTOMY Pre-op Diagnosis: Prolapsed internal hemorrhoids, grade 3 [K64.2] Screen for colon cancer [Z12.11] Post-op Diagnosis: K64.2 - Prolapsed internal hemorrhoids, grade 3 [ICD-10-CM] Z12.11 - Screen for colon cancer [ICD-10-CM] 08/07/2023 1:17 PM [facility] Gross Description A(1). Rectum, [...] A6-opposing unoriented end of specimen (MARTIR Jones ([facility]) 08/07/2023 1:17 PM GAS BLENDER LABORATORY Microscopic Description Microscopic examination was performed. 08/07/2023 1:17 PM GAS BLENDER LABORATORY Performing Labs The technical component of this testing was completed at [facility] 08/07/2023 1:17 PM [facility] Case Images 08/07/2023 1:17 PM GAS BLENDER LABORATORY Tissue RECTUM PART / Unknown 08/04/2023 8:19 AM GAS BLENDER 08/04/2023 8:44 AM GAS BLENDER Ever Zee MD LAB - [facility] Acute Care Lab [address] Lab (1st floor, no room number) [place] [address] [phone] * COLONOSCOPY (08/04/2023 7:25 AM GAS BLENDER) COLONOSCOPY [facility] Patient Name: Maryam Cortez ?Procedure Date: [...] ?Olympus, Pediatric Colonoscope, Model # [id number]-H190DL, ?Censitrac #[id number] was introduced through the ?anus with the [...] criteria for high risk CPT copyright 2021 [employer]. All rights reserved. The codes documented in this report are preliminary and upon axle polisher review may be revised to meet current compliance requirements. EVER ZEE MD 08/04/2023 8:47:30 AM I was physically present for the entire viewing portion of the exam. EVER ZEE MD Number of Addenda: 0 Note Initiated On: 08/04/2023 7:25 AM MRN: ?[id number] Procedure Date: ? 08/04/2023 7:25:15 AM Total Procedure Duration: 0 hours 3 minutes 40 seconds Estimated Blood Loss: ? Scope In: 7:47:47 AM Scope Out: 7:51:27 AM RADIOLOGY RESULTS 08/04/2023 7:25 AM GAS BLENDER Ever Zee MD PROCEDURES RADIOLOGY RESULTS * LAB RESULT - HIM SCAN (07/25/2023 12:00 AM GAS BLENDER) 07/25/2023 Provider Outside MH NON-BEAKER LAB TE STING * EKG CARDIAC - HIM SCAN (07/25/2023 12:00 AM GAS BLENDER) 07/25/2023 Provider Outside ECG ORDERABLES from Last 3 Months Care Teams Freelance Court Stenographer Relationship Specialty Start Date End Date Lina Meléndez MD [facility] [address] [place] [address] PCP - General Internal Medicine 12/26/14 Rhoda Sarabia I [address] [place] [address] Associate Art Director Dietitian, Registered 02/20/20
--- OUTSIDE RECORDS SUMMARY | 2023-09-29 15:10 | XMS_ITS | Clinical Summary ---
Author Name Unknown Organization [facility] Address [place], [place] [address] Care Team Providers Care Coal Chemist Name Role Phone Lina Meléndez MD Primary Care Provider [phone] Allergies Active Allergy Reactions Criticality Noted Date [...] Sprays to both nostrils two times daily. Active magnesium oxide (MAG-OX 400) 400 mg tablet Take 400 mg by mouth two times daily. 2 03/05/2016 Active atorvastatin (LIPITOR) 10 mg tabletIndications:H yperlipidemia LDL goal <70 Take 1 tablet by mouth at bedtime. 30 tablet 05/23/2016 Active albuterol HFA 90 mcg/actuation inhaler INHALE TWO-FOUR PUFFS BY MOUTH EVERY FOUR-SIX HOURS NEEDED 12/04/2019 Active miscellaneous medical supply (Blood Pressure Cuff) miscIndications:Ess ential hypertension As directed. Home blood pressure monitoring for Essential hypertension Diagnosis. Upper arm automatic Cuff. 1 Each 09/11/2020 Active carvediloL (COREG) 6.25 mg tablet Take 6.25 mg by mouth 2 times daily with meals. 08/13/2021 Active Biotin 1 mg tablet Take 5,000 mg by mouth. Active omeprazole (PRILOSEC) 20 mg Delayed-Release capsule Take 20 mg by mouth two times daily before meals. 12/20/2021 Active beclomethasone dipropionate (Qvar RediHaler) 80 mcg/actuation HFAb HFA inhaler Inhale 2 Puffs by mouth two times daily. 01/18/2022 Active eszopiclone (LUNESTA) 2 mg tablet Take 2 mg by mouth at bedtime. 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[employer]) 12/31/2021 Active continuous glucose monitor SENSOR KIT ([employer]) 12/31/2021 Active bd insulin pen needle uf mini 31 gauge x 3/16 Use up to 6 times daily 09/06/2022 Active valACYclovir (VALTREX) 500 mg tablet Take 1,000 mg by mouth one time if needed (Cold sores). 12/06/2021 Active calcium carbonate-vitamin D3 600 mg-25 mcg (1,000 unit) cap Take by mouth once daily. Active glucosamine HCl/chondroitin daniel (GLUCOSAMINE-CHONDR OITIN ORAL) Take 1 Capsule by mouth once daily. Active acetaminophen (TYLENOL) 325 mg tabletIndications:P ost-op pain Take 2 Tablets (650 mg) by mouth every 4 hours if needed (mild pain). Max acetaminophen dose: 4000mg in 24 hrs. 100 Tablet 10/18/2022 Active NIFEdipine (PROCARDIA XL) 30 mg extended-release tablet Take 30 mg by mouth once daily before a meal. Active insulin aspart, U-100, (NovoLOG FlexPen U-100 Insulin) 100 unit/mL (3 mL) pen Inject 4-10 units subcutaneous three times daily before meals. Active timoloL maleate (TIMOPTIC) 0.5 % ophthalmic solution APPLY 1 DROP TO EACH FINGERTIP ONCE DAILY AT BEDTIME NEEDED.* 11/23/2022 Active gabapentin (NEURONTIN) 300 mg capsule Take 300 mg by mouth three times daily. Active clopidogreL (PLAVIX) 75 mg tabletIndications:C erebrovascular accident (CVA), unspecified mechanism (HC) Take 1 Tablet (75 mg) by mouth every morning. May resume on 05/08/23 0 05/08/2023 Active WalkerIndications:L umbar radiculopathy Walker with front wheels for home use for 3 months. 1 Each 05/05/2023 Active insulin glargine, U-100, (Lantus U-100 Insulin) 100 unit/mL injectionIndication s:Type 2 diabetes mellitus without complication, with long-term current use of insulin (HC) Inject 12 units subcutaneous once daily. 10 mL 05/05/2023 Active CPAPIndications:TC (obstructive sleep apnea) CPAP machine for home use at pressure 4.6-8.6cmw, nasal mask x1/3month with nasal pillows x 2/mo 1 Each 06/07/2023 Active Active Problems Problem Noted Date [...] 01/17/2007 Hyperlipidemia LDL goal <70 Urge incontinence Immunizations Name Administration Dates Next Due Influenza, [...] Sex Assigned at Female 08/31/2020 9:33 AM FINISH SAW OPERATOR Gender Identity Female 08/31/2020 9:33 AM FINISH SAW OPERATOR Sexual Orientation Straight 08/31/2020 9: 33 AM FINISH SAW OPERATOR Obstetrics History Para Term AB IAB SAB [...] Comments Blood Pressure 130/62 06/07/2023 2:05 PM FINISH SAW OPERATOR Pulse 72 06/07/2023 2:05 PM FINISH SAW OPERATOR Temperature 37.1 ??C (98.7 ??F) 05/05/2023 7:27 AM CS T Respiratory Rate 16 05/05/2023 7:27 AM FINISH SAW OPERATOR Oxygen Saturation 100% 06/07/2023 2:05 PM FINISH SAW OPERATOR Inhaled Oxygen Concentration - - Weight 70.8 kg (156 lb) 06/07/2023 2:05 PM FINISH SAW OPERATOR Height 165.1 cm (5' 5) 06/07/2023 2:05 PM FINISH SAW OPERATOR Body Mass Index 25.96 06/07/2023 2:05 PM FINISH SAW OPERATOR Plan of Treatment Health Maintenance Due Date Last Done Comments Pneumococcal series for age 65+ (1 of 2 - PCV) 1953 Tdap 1958 Depression screening for age 12+ 1959 Tetanus booster 1967 Zoster (shingles) series for age 50+ (1 of 2) 1997 DEXA/DXA scan for age 65+ 2012 Medicare Wellness for age 65+ 2012 Influenza for age 65+ 02/25/2024 04/20/2016 BMI (ht and wt on same day) for age 18+ 06/07/2024 06/07/2023, 11/26/2018, 06/28/2017, Additional history exists Hepatitis C screening for ag e 18-79 Completed 12/08/2016 COVID-19 vaccine series Completed 03/29/20, 10/26/2022, 03/10/2022, Additional history exists Medical Devices Implanted Type Area Restrictive Preparation Operator Device Identifier Shelf Expiration Date Model / Serial / Lot [id number] 1-4mm 30cc Medtronic Chips Canclls Freeze Dried Implanted:Qty: 1 on 12/06/2016 by Gurinder Mc MD at [facility] Explanted:at [facility] (Quantity not on file) Spine Medtronic Spine/Ortho 08/24/2021 [id number] / [id number] / Spacer Lmbr [id number] [place] Convex Stra Plif - [id number] Implanted:Qty: 1 on 12/06/2016 by Gurinder Mc MD at [facility] Spine [employer] 07/26/2026 [id number] # / / [id number] Matrix 3cc Greer Dbf Putty Dbm Implanted:Qty: 1 on 12/06/2016 by Gurinder Mc MD at [facility] Explanted:at [facility] (Quantity not on file) Spine Medtronic Spine/Ortho 09/08/2018 [id number] / [id number] / Screw Lmbr Post 5.5x40mm Vitality Va - [id number] Implanted:Qty: 1 on 12/06/2016 by Gurinder Mc MD at [facility] Spine [employer] Spine [id number]. 032# / / Screw Lmbr Post 5.5x45mm Vitality Va - [id number] Implanted:Qty: 2 on 12/06/2016 by Gurinder Mc MD at [facility] Spine [employer] Spine [id number]. 033# / / Set Screw Lmbr 5.5-6mm Vitality Shear Off - [id number] Implanted:Qty: 4 on 12/06/2016 by Gurinder Mc MD at [facility] Spine [employer] Spine 11. 001# / / Avni Lmbr 40x5.5mm Vitality Cvd Titnm - [id number] Implanted:Qty: 2 on 12/06/2016 by Gurinder Mc MD at [facility] Spine [employer] Spine 15. 005# / / Spacer Lmbr [id number] Zyston Convex Stra Plif - [id number] Implanted:Qty: 1 on 12/06/2016 by Gurinder Mc MD at [facility] Spine [employer] [id number] # / / Screw Lmbr Post 6.5x40mm Vitality Va - [id number] Implanted:Qty: 1 on 12/06/2016 by Gurinder Mc MD at [facility] Spine [employer] Spine . 074# / / .[id number] Double Ended K-Wire Implanted:Qty: 2 on 12/03/2018 by Rex Fink DPM at [facility] Right: Foot N/A / / Interstim Basic Evaluation Lead Implanted:Qty: 1 on 09/28/2022 by Michelle Colmenares DO at [facility] Medtronic 01/26/2024 [id number] / / [id number] Interstim Basic Evaluation Kit Implanted:Qty: 1 on 09/28/2022 by Michelle Colmenares DO at [facility] Sacr Medtronic 08/27/2023 [id number] / / [id number] Sys Interstim X Surescan Mri Lead And Smart Senior Security Architect - [id number] Implanted:Qty: 1 on 10/18/2022 by Michelle Colmenares DO at [facility] Right: Buttock Medtronic Pain Therapy 02/07/2024 [id number] / [id number] / Lead Kit 4.32mm Spacing 28cm Length Interstim - [id number] Implanted:Qty: 1 on 10/18/2022 by Michelle Colmenares DO at [facility] Right: Buttock Medtronic Pain Therapy 01/17/2024 [id number] / / [id number] Envlp Neuro Tyrx Absorb Antibacterial - [id number] Implanted:Qty: 1 on 10/18/2022 by Michelle Colmenares DO at [facility] Right: Buttock Medtronic 03/20/2023 [id number] / / [id number] Spacer Lmbr [id number] Zyston Convex Stra Tlif - [id number] Implanted:Qty: 1 on 05/03/2023 by Gurinder Mc MD at [facility] N/A: Spine [employer] 09/13/2026 [id number] / / [id number] Avni Lmbr 95x5.5mm Vitality Cvd Titnm - [id number] Implanted:Qty: 1 on 05/03/2023 by Gurinder Mc MD at [facility] N/A: Spine [employer] Spine 07.90077. 016 / / Avni Lmbr 90x5.5mm Vitality Cvd Titnm - [id number] Implanted:Qty: 1 on 05/03/2023 by Gurinder Mc MD at [facility] N/A: Spine [employer] Spine 07.37047. 015 / / Set Screw Lmbr 5.5-6mm Vitality Torque - [id number] Implanted:Qty: 8 on 05/03/2023 by Gurinder Mc MD at [facility] N/A: Spine [employer] Spine 07.20811. 001 / / Screw Spinal 4.5x45mm Poly Tl Implanted:Qty: 1 on 05/03/2023 by Gurinder Mc MD at [facility] N/A: Spine [id number] / / Description:SCREW SPINAL 4.5 X45MM POLY TL Screw Spinal 5.5x45mm Poly Tl Implanted:Qty: 3 on 05/03/2023 by Gurinder Mc MD at [facility] N/A: Spine [id number] / / Description:SCREW SPINAL 5.5 X45MM POLY TL Bone 1-4mm 60cc Hi-G-Tektronic Fine Canclls Freeze Dried - [id number] Implanted:Qty: 1 on 05/03/2023 by Gurinder Mc MD at [facility] N/A: Spine Medtronic Spine/Ortho 09/21/2026 [id number] / [id number] / Bone Matrix 6cc Emelina Dbf Putty Dbm - [id number] Implanted:Qty: 1 on 05/03/2023 by Gurinder Mc MD at [facility] N/A: Spine Medtronic Spine/Ortho 04/11/2025 [id number] / [id number] / Procedures Procedure Name Priority Date/Time Associated Diagnosis Comments EXPOSURE (BBF) ANTI HCV STAT 12/08/2016 1:07 AM CDT from Last 3 Months or Most Recently Relevant to Health Maintenance Results * Patient Source ANTI HCV (12/08/2016 1:07 AM CDT) HEPATITIS C ANTIBODY Non-Reacti ve Non-Reacti ve 12/08/2016 2:31 AM CDT [facility] Blood BLOOD SPECIMEN / Unknown Venipuncture / Unknown 12/08/2016 1:07 AM CDT 12/08[facility]2016 [facility] 12/08/2016 2:31 AM CDT Antibodies to HCV not detected; does not exclude the possibility of exposure to HCV. Meghann Humphreys MD [facility] [address] [place] [address], [place] from Last 3 Months or Most Recently Relevant to Health Maintenance Advance Directives Documents on File Type Date Recorded Patient Machine Binding Folder Expl anation Healthcare Directive 12/31/2015 7:52 AM 09/26 * Full Code (Latest Code Status on File) Date Activated Date Inactivated Comments 05/03/2023 6:20 PM 05/05/2023 5:40 PM Question Answer Comments Code Status Discussion: Unable to Assess Preferences, Provider to review later * Full Code Date Activated Date Inactivated Comments 12/22/2022 6:17 AM 12/22/2022 2:05 PM Question Answer Comments Code Status Discussion: Reviewed Preferences * Full Code Date Activated Date Inactivated Comments 10/18/2022 9:52 AM 10/18/2022 4:52 PM Question Answer Comments Code Status Discussion: Reviewed Preferences * Full Code Date Activated Date Inactivated Comments 09/28/2022 8:28 AM 09/28/2022 2:34 PM Question Answer Comments Code Status Discussion: Unable to Assess Preferences, Provider to review later * Full Code Date Activated Date Inactivated Comments 12/03/2018 9:45 AM 12/03/2018 4:22 PM Question Answer Comments Code Status Discussion: Discussed Care Teams Coal Chemist Relationship Specialty Start Date End Date Lina Meléndez MD [address] [place] [address] PCP - General Internal Medicine 11/01/21
--- OUTSIDE RECORDS SUMMARY | 2023-09-29 15:11 | XMS_ITS | Encounter Summary ---
Author Name Unknown Organization [facility] Address [address] [place] [address] Care Team Providers Care Aircraft Maintenance Manager Name Role Phone Lina Meléndez MD Primary [...] on filedocumented in this encounter Care Teams Aircraft Maintenance Manager Relationship Specialty Start Date End Date Lina Meléndez MD [facility] [address] [place] [address] PCP - General Internal Medicine 12/26/14 Rhoda Sarabia I [address] [place] [address] Supervisor Furnace Room Dietitian, Registered 02/20/20 documented as of this encounter
--- OUTSIDE RECORDS SUMMARY | 2023-09-29 15:11 | XMS_ITS | Encounter Summary ---
Author Name Unknown Organization [facility] Address [address] [place] [address] Care Team Providers Care Heliarc Welder Name Role Phone Lina Meléndez MD Primary Care Provider [phone] Cassatt, Dojessie Shivani Unavailable Reason for Visit * Auth/Cert (Routine) Specialty Diagnoses / Procedures Referred By Caroline clement Referred To Contact Surgery Diagnoses Prolapsed internal hemorrhoids, grade 3 Screen for colon cancer Prolapsed internal hemorrhoids, grade 3 [K64.2] Screen for colon cancer [Z12.11] Procedures MO COLONOSCOPY W/WO BRUSH/WASH MO HEMORRHOIDECTOMY W BANDING/LIGATION MO LIGATION INTERNAL HEMORRHOID, SINGLE, W/O IMAGING MO LIGATION INTERNAL HEMORRHOID, 2 OR MORE, W/O IMAGING INTAROPERATIVE Colonoscopy WITH EXAM UNDER ANESTHESIA OF RECTUM WITH HEMORROIDECTOMY [facility] [address] [place] [address] Referral ID Status Reason Start Date Expiration Date Visits Re quested Visits Authorized [id number] 1 1 Encounter Details Date Type Department Care Team (Late st Contact Info) Description 08/04/2023 7:30 AM RIDING SILKS CUSTODIAN - 08/04/2023 9:10 AM RIDING SILKS CUSTODIAN Surgery [facility] PeriOp Services [address] [place] [phone] Ever Zee MD [facility] [address] [id number] INTAROPERATIVE Colonoscopy Surgery Details Date/Time Status Location OR Service Patient Class Case Class Case Type Trauma Case? 08/04/23 7:30 AM Posted RH OR OR 03 [facility] Same Day Surgery Elective Panel 1 Procedure LRB Anes Op Region Wound Class Comments INTAROPERATIVE Colonoscopy N/A MAC Rectum II- Clean Contaminated WITH EXAM UNDER ANESTHESIA O F RECTUM WITH HEMORROIDECTOMY N/A MAC Rectum II-Clean Cont aminated Surgeon Surgeon Role Service Panel Ever Zee MD Primary [place]Rectal 1 documented in this encounter Social History [...] Comments Blood Pressure 135/83 08/04/2023 8:55 AM RIDING SILKS CUSTODIAN Pulse 86 08/04/2023 9:10 AM RIDING SILKS CUSTODIAN Temperature 36.2 ??C (97.2 ??F) 08/04/2023 8:42 AM CS T Respiratory Rate 16 08/04/2023 6:02 AM RIDING SILKS CUSTODIAN Oxygen Saturation 100% 08/04/2023 9:10 AM RIDING SILKS CUSTODIAN Inhaled Oxygen Concentration - - Weight 70.9 kg (156 lb 4.8 oz) 08/04/2023 6:02 A M RIDING SILKS CUSTODIAN Height 165.1 cm (5' 5) 07/26/2023 1:00 PM RIDING SILKS CUSTODIAN Body Mass Index 26.01 07/26/2023 1:00 PM RIDING SILKS CUSTODIAN documented in this encounter Discharge Instructions * Discharge Instructions* Jorje Kendall RN - 08/04/2023 6:57 AM RIDING SILKS CUSTODIAN Maximum acetaminophen (Tylenol) dose from all sources should not exceed 4 grams (4000 mg) per day. You last had 975 mg at 6:56 AM; do not take Tylenol products again until after 12:[address] VIVIENNE ZEE M.D. CLINIC PHONE NUMBER: [phone] [facility] NG SILKS CUSTODIAN * Attachments The following attachments cannot be sent through Care Everywhere. * (s) After Anesthesia (Sleep Medicine) (Niuean) documented in this encounter Medications at Time [...] 0 fluticasone (FLONASE) 50 MCG/ACT nasal spray [place] 2 sprays in nostril daily 0 folic [...] Jaime RN on 08/04/2023 at 5:51 AM NG SILKS CUSTODIAN documented in this encounter Miscellaneous Notes * Brief Op Note - Ever Zee MD - 08/04/2023 8:48 AM CST [facility] Brief Operative Note Pre-operative diagnosis: Prolapsed internal [...] Implants: * No implants in log * NG SILKS CUSTODIAN * Op Note - Ever Zee MD [...] SPECIMEN: right posterior hemorrhoid. Kiera Zee MD NG SILKS CUSTODIAN documented in this encounter Plan of Treatment Not on file documented as of this encounter Procedures Procedure Name Priority Date/Time Associated Diagnosis Comments GLUCOSE BY METER Routine 08/04/2023 9:05 AM RIDING SILKS CUSTODIAN SURGICAL PATHOLOGY EXAM Routine 08/04/2023 8:19 AM RIDING SILKS CUSTODIAN HEMORRHOIDECTOMY, INTERNAL 08/04/2023 7:38 AM RIDING SILKS CUSTODIAN Prolapsed internal hemorrhoids, grade 3 Screen for colon cancer COLONOSCOPY 08/04/2023 7:38 AM RIDING SILKS CUSTODIAN Prolapsed internal hemorrhoids, grade 3 Screen for colon cancer COLONOSCOPY Routine 08/04/2023 7:25 AM RIDING SILKS CUSTODIAN GLUCOSE BY METER Routine 08/04/2023 6:50 AM RIDING SILKS CUSTODIAN LAB RESULT - HIM SCAN 07/25/2023 12:00 AM RIDING SILKS CUSTODIAN EKG CARDIAC - HIM SCAN 07/25/2023 12:00 AM RIDING SILKS CUSTODIAN documented in this encounter Results * (ABNORMAL) Glucose by meter (08/04/2023 9:05 AM RIDING SILKS CUSTODIAN) GLUCOSE BY METER POCT 180(H) 70 - 99 mg/dL 08/04/2023 9:13 AM RIDING SILKS CUSTODIAN LABORATORY POC Blood, Capillary BLOOD SPECIMEN / Unknown 08/04/2023 9:05 AM RIDING SILKS CUSTODIAN 08/04/2023 9:13 AM RIDING SILKS CUSTODIAN Ever Zee [facility] [address] [facility] Lab (1st floor, no room number) [place] [address], [facility] [phone] * Surgical Pathology Exam (08/04/2023 8:19 AM RIDING SILKS CUSTODIAN) Case Report Surgical Pathology Report ? Case: [id number] ? Authorizing Provider: ??Ever Zee MD ?? Collected: ? 08/04/2023 08:19 AM ? Ordering Location: ? [facility] ?? Received: ?08/04/2023 08:44 AM ? Main OR ? Pathologist: ? Mario Boo MD ? Specimen: ?Rectum, Right posterior hemorroid ? 08/07/2023 1:17 PM [facility] Final Diagnosis A(1). Anal/Rectal mucosa and soft tissue, Right posterior, excision: - Polypoid colonic mucosa with prominent underlying blood vessels consistent with hemorrhoidal tissue. - Negative for dysplasia or malignancy. 08/07/2023 1:17 PM [facility] Clinical Information Procedure: INTAROPERATIVE Colonoscopy WITH EXAM UNDER ANESTHESIA OF RECTUM WITH HEMORROIDECTOMY Pre-op Diagnosis: Prolapsed internal hemorrhoids, grade 3 [K64.2] Screen for colon cancer [Z12.11] Post-op Diagnosis: K64.2 - Prolapsed internal hemorrhoids, grade 3 [ICD-10-CM] Z12.11 - Screen for colon cancer [ICD-10-CM] 08/07/2023 1:17 PM [facility] Gross Description A(1). Rectum, Right [...] specimen (MARTIR Jones (ASCP) 08/07/2023 1:17 PM RIDING SILKS CUSTODIAN LABORATORY Microscopic Description Microscopic examination was performed. 08/07/2023 1:17 PM [facility] Performing Labs The technical component of this testing was completed at [facility] 08/07/2023 1:17 PM RIDING SILKS CUSTODIAN LABORATORY Case Images 08/07/2023 1:17 PM RIDING SILKS CUSTODIAN LABORATORY Tissue RECTUM PART / Unknown 08/04/2023 8:19 AM RIDING SILKS CUSTODIAN 08/04/2023 8:44 AM RIDING SILKS CUSTODIAN Ever Zee MD LAB - [facility] Acute Care Lab [address] Lab (1st floor, no room number) [place] [address], [facility] [phone] * COLONOSCOPY (08/04/2023 7:25 AM RIDING SILKS CUSTODIAN) COLONOSCOPY [facility] Patient Name: Maryam Cortez ?Procedure Date: [...] ?Olympus, Pediatric Colonoscope, Model # [id number]-H190DL, ?Censitrac #[id number] was introduced through the ?anus with the [...] criteria for high risk CPT copyright 2021 [employer]. All rights reserved. The codes documented in this report are preliminary and upon hospital coder review may be revised to meet current compliance requirements. EVER ZEE MD 08/04/2023 8:47:30 AM I was physically present for the entire viewing portion of the exam. EVER ZEE MD Number of Addenda: 0 Note Initiated On: 08/04/2023 7:25 AM MRN: ?[id number] Procedure Date: ? 08/04/2023 7:25:15 AM Total Procedure Duration: 0 hours 3 minutes 40 seconds Estimated Blood Loss: ? Scope In: 7:47:47 AM Scope Out: 7:51:27 AM RADIOLOGY RESULTS 08/04/2023 7:25 AM RIDING SILKS CUSTODIAN Ever Zee MD PROCEDURES RADIOLOGY RESULTS * (ABNORMAL) Glucose by meter (08/04/2023 6:50 AM RIDING SILKS CUSTODIAN) GLUCOSE BY METER POCT 182(H) 70 - 99 mg/dL 08/04/2023 6:57 AM RIDING SILKS CUSTODIAN LABORATORY POC Comment:Dr/RN Notified Blood, Capillary BLOOD SPECIMEN / Unknown 08/04/2023 6:50 AM RIDING SILKS CUSTODIAN 08/04/2023 6:57 AM RIDING SILKS CUSTODIAN Ever Zee MD LAB - [facility] POC [facility] [address] [facility] ([facility] floor, no room number) [place] [address], [facility] [phone] * LAB RESULT - HIM SCAN (07/25/2023 12:00 AM RIDING SILKS CUSTODIAN) 07/25/2023 Provider Outside NON-BEAKER LAB TE STING * EKG CARDIAC - HIM SCAN (07/25/2023 12:00 AM RIDING SILKS CUSTODIAN) 07/25/2023 Provider Outside ECG ORDERABLES documented in [...] 4 grams/day., Pre-procedure $Given 08/04/2023 6:56 AM RIDING SILKS CUSTODIAN 975 mg BUPivacaine (MARCAINE) 0.5% preservative free injection PRN, Starting on Mon08/04/23 at 0813, Intra-procedure $Given 08/04/2023 8:13 AM RIDING SILKS CUSTODIAN 29.75 mLs Operative Site/Surgical Site fentaNYL (PF) [...] Mon08/04/23 at 0840 Restarted 08/04/2023 7:38 AM RIDING SILKS CUSTODIAN $New Bag 08/04/2023 6:52 AM RIDING SILKS CUSTODIAN 10 mL/hr lactated ringers infusion at 100 [...] after each dose. $Given 08/04/2023 9:10 AM RIDING SILKS CUSTODIAN 1 mg naloxone (NARCAN) injection 0.2 mg [...] at 0823, Intra-procedure $Given 08/04/2023 8:23 AM RIDING SILKS CUSTODIAN 400 mLs Operative Site/Surgi radha Site documented in this encounter Active and Recently Administered Medications Times are shown in RIDING SILKS CUSTODIAN. Scheduled Medication Order 08/02/2023 08/03/2023 08/04/2023 acetaminophen [...] ll documented in this encounter Care Teams Heliarc Welder Relationship Specialty Start Date End Date Lina Meléndez MD [facility] [address] [place] [address] PCP - General Internal Medicine 12/26/14 Rhoda Sarabia I [address] [place] [address] Promotions Assistant Sales Marketing Dietitian, Registered 02/20/20 documented as of this encounter
--- OUTSIDE RECORDS SUMMARY | 2023-09-29 15:11 | XMS_ITS | Encounter Summary ---
Author Name Unknown Organization [facility] Address [address] [place] [address] Care Team Providers Care Earth Sciences Professor Name Role Phone Lina Meléndez MD Primary [...] on filedocumented in this encounter Care Teams Earth Sciences Professor Relationship Specialty Start Date End Date Lina Meléndez MD [facility] [address] [place] [address] PCP - General Internal Medicine 12/26/14 Rhoda Sarabia I [address] [place] [address] Tool And Cutter Grinder Dietitian, Registered 02/20/20 documented as of this encounter
--- OUTSIDE RECORDS SUMMARY | 2023-09-29 15:11 | XMS_ITS | Encounter Summary ---
Author Name Unknown Organization [facility] Address [address] [place] [address] Care Team Providers Care Heavy Equipment Technician Name Role Phone Lina Meléndez MD Primary Care Provider [phone] Rhoda Sarabia I Unavailable Reason for Visit [...] WITH HEMORROIDECTOMY [facility] Per[facility] Services [address] [place] [address] Referral ID Status Reason Start Date Expiration Date Visits Re quested Visits Authorized [id number] 1 1 Encounter Details Date Type Department Care Team (Late st Contact Info) Description 08/04/2023 7:38 AM LIVESTOCK FARMER Anesthesia Event [facility] PeriOp Services [address] [place] [address] Marlon Rueda, DO [facility] ANESTHESIA [address] [place], [place] [id number] Anesthesia Record Procedure Summary Procedure Name Responsible Anesthesiologist Anesthesia Start Time Anesthesia Stop Time INTAROPERATIVE Colonoscopy (Rectum) Marybeth Marlon Brook, DO 08/04/23 0738 08/04/23 0843 Events Date Time Event Comment 08/04/2023 0642 0713 ARCHITECTURAL WOOD MODEL MAKER Ready for Procedure 0738 An Start 0738 [...] Stop Electronically signed by Toño Zuniga APRN ARCHITECTURAL WOOD MODEL MAKER on August 04, 2023 8:43 AM Meds [...] Rueda DO August 04, 2023 9:36 AM STOCK FARMER * Anesthesia Postprocedure Evaluation - Marlon Rueda [...] Rueda DO August 04, 2023 9:36 AM STOCK FARMER * Anesthesia Preprocedure Evaluation - Marlon Rueda [...] STEROID INJECTION 08/18/2006 SHOULDER SURGERY Left Repaired [facility] CERV SPINE FUSN,ANTER,BELOW C2 Description: Cervical Vertebral Fusion; Recorded: 12/29/2006; [facility] TOTAL ABDOM HYSTERECTOMY Description: Hysterectomy; Recorded: 01/16/2008; Comments: partial, has R ovary [facility] TOTAL KNEE ARTHROPLASTY Description: Total Knee [...] and realistic alternatives discussed. Questions answered and patient/support representative(s) expressed understanding. - Discussed: - Discussed [...] encounter: 70.9 kg (156 lb 4.8 oz). STOCK FARMER documented in this encounter Miscellaneous Notes * [...] APRN CRNA August 04, 2023 8:43 AM STOCK FARMER documented in this encounter Plan of Treatment [...] 0744, Anesthesia Intra-op $Given 08/04/2023 7:57 AM LIVESTOCK FARMER 25 mcg $Given 08/04/2023 7:44 AM LIVESTOCK FARMER 25 mcg glycopyrrolate (ROBINUL) injection Intravenous, PRN, Administer over 1-2 Minutes, Starting on Mon08/04/23 at 0744, Anesthesia Intra-op $Given 08/04/2023 7:44 AM LIVESTOCK FARMER 0.2 mg lactated ringers infusion at 10 mL/hr, Intravenous, CONTINUOUS, IF patient NOT on dialysis., Pre-procedure, Starting on Mon08/04/23 at 0600, Until Mon08/04/23 at 0840 Restarted 08/04/2023 7:38 AM LIVESTOCK FARMER $New Bag 08/04/2023 6:52 AM LIVESTOCK FARMER 10 mL/hr lidocaine 2% injection (MDV) Intravenous, PRN, Starting on Mon08/04/23 at 0740, Anesthesia Intra-op $Given 08/04/2023 7:40 AM LIVESTOCK FARMER 15 mg ondansetron (ZOFRAN) injection Intravenous, PRN, Administer over 2-5 Minutes, Starting on Mon08/04/23 at 0809, Anesthesia Intra-op $Given 08/04/2023 8:09 AM LIVESTOCK FARMER 4 mg phenylephrine (ANYA-SYNEPHRINE) injection Intravenous, CONTINUOUS PRN, Starting on Mon08/04/23 at 0817, Anesthesia Intra-op $Bolus 08/04/2023 8:22 AM LIVESTOCK FARMER 100 mcg $New Bag 08/04/2023 8:17 AM LIVESTOCK FARMER 100 mcg propofol (DIPRIVAN) infusion Intravenous, CONTINUOUS PRN, Starting on Mon08/04/23 at 0741, Anesthesia Intra-op Rate/Dose Change 08/04/2023 8:16 AM LIVESTOCK FARMER 70 mcg/kg/min 29.82 mL/hr Rate/Dose Change 08/04/2023 8:13 AM LIVESTOCK FARMER 80 mcg/kg/min 34.0 8 mL/hr Rate/Dose Change 08/04/2023 7:48 AM LIVESTOCK FARMER 100 mcg/kg/min 42. 6 mL/hr propofol (DIPRIVAN) injection 10 mg/mL vial Intravenous, PRN, Starting on Mon08/04/23 at 0758, Anesthesia Intra-op $Given 08/04/2023 7:58 AM LIVESTOCK FARMER 25 mg $Given 08/04/2023 7:44 AM LIVESTOCK FARMER 25 mg documented in this encounter Care Teams Heavy Equipment Technician Relationship Specialty Start Date End Date Lina Meléndez MD [facility] & [address] [address] PCP - General Internal Medicine 12/26/14 Rhoda Sarabia I [address] [place] [id number] Seed Collector Dietitian, Registered 02/20/20 documented as of this encounter
--- OUTSIDE RECORDS SUMMARY | 2023-09-29 15:11 | XMS_ITS | Referral Summary ---
Author Name Unknown Organization [facility] Address [address] [place] [id number] Care Team Providers Care Concrete Spreader Name Role Phone Lina Meléndez MD Primary Care Provider [phone] Rhoda Sarabia I Unavailable Encounters Date Type Department Care Team Description 08/04/2023 7:38 AM EVP MANAGING DIRECTOR Anesthesia Event [facility] PeriOp Services [address] [place] [address] Marlon Rueda, DO 08/04/2023 Travel 08/04/2023 7:30 AM EVP MANAGING DIRECTOR - 08/04/2023 9:10 AM EVP MANAGING DIRECTOR Surgery [facility] PeriOp Services [address] [place] [address] Ever Zee MD INTAROPERATIVE Colonoscopy 08/04/2023 5:28 AM EVP MANAGING DIRECTOR - 08/04/2023 11:05 AM EVP MANAGING DIRECTOR Hospital Encounter [facility] PreOP/PostOP [address] [place] [address] Ever Zee MD Hemorrhoids, unspecified hemorrhoid type [...] Active fluticasone (FLONASE) 50 MCG/ACT nasal spray Buhl 2 sprays in nostril daily 0 Active [...] Created by Conversion Osteoarthritis Overview: Created by [employer] Annotation: Dec 29 2006 3:46PM - Jojo Faustin: DJD Replacement Utility updated for latest IMO load Lower Back Pain Overview: Created by [employer] Annotation: Dec 29 2006 3:46PM - Jojo [...] Comments Blood Pressure 153/88 08/04/2023 11:00 AM EVP MANAGING DIRECTOR Pulse 79 08/04/2023 11:00 AM EVP MANAGING DIRECTOR Temperature 36.1 ??C (97 ??F) 08/04/2023 11:00 AM EVP MANAGING DIRECTOR Respiratory Rate 18 08/04/2023 11:00 AM EVP MANAGING DIRECTOR Oxygen Saturation 100% 08/04/2023 11:00 AM EVP MANAGING DIRECTOR Inhaled Oxygen Concentration - - Weight 70.9 kg (156 lb 4.8 oz) 08/04/2023 6:02 A M EVP MANAGING DIRECTOR Height 165.1 cm (5' 5) 07/26/2023 1:00 PM EVP MANAGING DIRECTOR Body Mass Index 26.01 07/26/2023 1:00 PM EVP MANAGING DIRECTOR Plan of Treatment Not on file Procedures Procedure Name Priority Date/Time Associated Diagnosis Comments GLUCOSE BY METER Routine 08/04/2023 9:05 AM EVP MANAGING DIRECTOR SURGICAL PATHOLOGY EXAM Routine 08/04/2023 8:19 AM EVP MANAGING DIRECTOR HEMORRHOIDECTOMY, INTERNAL 08/04/2023 7:38 AM EVP MANAGING DIRECTOR Prolapsed internal hemorrhoids, grade 3 Screen for colon cancer COLONOSCOPY 08/04/2023 7:38 AM EVP MANAGING DIRECTOR Prolapsed internal hemorrhoids, grade 3 Screen for colon cancer COLONOSCOPY Routine 08/04/2023 7:25 AM EVP MANAGING DIRECTOR GLUCOSE BY METER Routine 08/04/2023 6:50 AM EVP MANAGING DIRECTOR LAB RESULT - HIM SCAN 07/25/2023 12:00 AM EVP MANAGING DIRECTOR EKG CARDIAC - HIM SCAN 07/25/2023 12:00 AM EVP MANAGING DIRECTOR from Last 3 Months Results * (ABNORMAL) Glucose by meter (08/04/2023 9:05 AM EVP MANAGING DIRECTOR) Only the most recent of2 resultswithin the time period is included. GLUCOSE BY METER POCT 180(H) 70 - 99 mg/dL 08/04/2023 9:13 AM EVP MANAGING DIRECTOR LABORATORY POC Blood, Capillary BLOOD SPECIMEN / Unknown 08/04/2023 9:05 AM EVP MANAGING DIRECTOR 08/04/2023 9:13 AM EVP MANAGING DIRECTOR Ever [facility] POCT LABORATORY [facility] Acute Care Lab [address] Lab (1st floor, no room number) [place] [address], [facility] [phone] * Surgical Pathology Exam (08/04/2023 8:19 AM EVP MANAGING DIRECTOR) Case Report Surgical Pathology Report ? Case: [id number] ? Authorizing Provider: ??Ever Zee MD ?? Collected: ? 08/04/2023 08:19 AM ? Ordering Location: ? [facility] ?? Received: ?08/04/2023 08:44 AM ? Main OR ? Pathologist: ? Mario Boo MD ? Specimen: ?Rectum, Right posterior hemorroid ? 08/07/2023 1:17 PM [facility] Final Diagnosis A(1). Anal/Rectal mucosa and soft tissue, Right posterior, excision: - Polypoid colonic mucosa with prominent underlying blood vessels consistent with hemorrhoidal tissue. - Negative for dysplasia or malignancy. 08/07/2023 1:17 PM [facility] Clinical Information Procedure: INTAROPERATIVE Colonoscopy WITH EXAM UNDER ANESTHESIA OF RECTUM WITH HEMORROIDECTOMY Pre-op Diagnosis: Prolapsed internal hemorrhoids, grade 3 [K64.2] Screen for colon cancer [Z12.11] Post-op Diagnosis: K64.2 - Prolapsed internal hemorrhoids, grade 3 [ICD-10-CM] Z12.11 - Screen for colon cancer [ICD-10-CM] 08/07/2023 1:17 PM [facility] Gross Description A(1). Rectum, Right [...] of specimen A6-opposing unoriented end of specimen (Tracie MARTIR Betancourt ([facility]) 08/07/2023 1:17 PM [facility] Microscopic Description Microscopic examination was performed. 08/07/2023 1:17 PM [facility] Performing Labs The technical component of this testing was completed at [facility] 08/07/2023 1:17 PM [facility] Case Images 08/07/2023 1:17 PM [facility] Tissue RECTUM PART / Unknown 08/04/2023 8:19 AM EVP MANAGING DIRECTOR 08/04/2023 8:44 AM EVP MANAGING DIRECTOR Ever [facility] Acute Care Lab [address] [facility] Lab (1st floor, no room number) [place] [address], [facility] [phone] * COLONOSCOPY (08/04/2023 7:25 AM EVP MANAGING DIRECTOR) COLONOSCOPY Patient Name: Maryam Cortez ?Procedure Date: 08/04/2023 [...] ?Olympus, Pediatric Colonoscope, Model # [id number]-H190DL, ?Censitrac #[id number] was introduced through the ?anus with the [...] criteria for high risk CPT copyright 2021 [employer]. All rights reserved. The codes documented in this report are preliminary and upon furniture mechanic review may be revised to meet current compliance requirements. EVER ZEE MD 08/04/2023 8:47:30 AM I was physically present for the entire viewing portion of the exam. EVER ZEE MD Number of Addenda: 0 Note Initiated On: 08/04/2023 7:25 AM MRN: ?[id number] Procedure Date: ? 08/04/2023 7:25:15 AM Total Procedure Duration: 0 hours 3 minutes 40 seconds Estimated Blood Loss: ? Scope In: 7:47:47 AM Scope Out: 7:51:27 AM RADIOLOGY RESULTS 08/04/2023 7:25 AM EVP MANAGING DIRECTOR Ever Zee MD PROCEDURES RADIOLOGY RESULTS * LAB RESULT - HIM SCAN (07/25/2023 12:00 AM EVP MANAGING DIRECTOR) 07/25/2023 Provider Outside MH NON-BEAKER LAB TE STING * EKG CARDIAC - HIM SCAN (07/25/2023 12:00 AM EVP MANAGING DIRECTOR) 07/25/2023 Provider Outside ECG ORDERABLES from Last 3 Months Care Teams Concrete Spreader Relationship Specialty Start Date End Date Lina Meléndez MD [facility] [address] [place] [address] PCP - General Internal Medicine 12/26/14 Rhoda Sarabia I [address] [place] [id number] Math Instructor Dietitian, Registered 02/20/20
--- OUTSIDE RECORDS SUMMARY | 2023-09-29 15:11 | XMS_ITS | Continuity of Care Document ---
Author Name Unknown Organization [facility] Address [address] [address] [place] [address] Phone Care Team Providers Care Design Teacher Name Role Phone No Information Unavailable Unavailable [...] Provider Providers Copied on Encounter [facility], [address] [address], [place], [place], [id number], tel:[phone] No Information 3 No Information [facility], [address] [address], [place], [place], [id number], [place] tel:[phone] [facility] No Information 5 No Information Referring Provider: Coleman Dye MD G, [facility] [place], [address]. tel:[phone] Family History Family Member Type Diagnosis Age At Onset No Information Payers Payer name Insurance type Covered democrat ID Authoriza tion(s) No Information Social History [...]
--- OUTSIDE RECORDS SUMMARY | 2023-09-29 15:11 | XMS_ITS | Clinical Summary ---
Author Name Unknown Organization [facility] Address [address] [place] [address] Care Team Providers Care Grounds/Maintenance Specialist Name Role Phone Unavailable Primary Care Provider Unavailabl e Source Comments Patient records contain information from all sites at [facility]. For routine questions regarding patient records, call [phone] during business hours, M-F 8:00 AM - 5:00 PM Central Time. Record requests for emergency care only can be directed to [phone] at any time.[facility] Allergies Active Allergy Reactions Criticality Noted Date [...] Inject as directed daily. 0 12/21/2017 Active magnesium oxide 400 mg capsule Take 4 tablets by mouth daily. 0 12/15/2015 Active metFORMIN (GLUCOPHAGE) 500 mg tablet Take 500 mg by mouth 2 (two) times a day. 0 01/31/2009 Active vit C/E/Zn/coppr/lutei n/zeaxan (PRESERVISION AREDS-2 ORAL) Take 1 capsule by [...] by mouth daily. 90 tablet 3 02/06/2023 4 Active folic acid 1 mg tablet Take 1 tablet (1 mg total) by mouth daily. 90 tablet 3 04/04/2023 4 Active carvediloL (COREG) 6.25 mg tablet Take 1 tablet (6.25 mg total) by mouth 2 (two) times a day with meals. 180 tablet 3 06/05/2023 Active folic acid 1 mg tablet Take 1 tablet (1 mg total) by mouth daily. 90 tablet 3 06/05/2023 4 Active HUMALOG KWIKPEN INSULIN 100 unit/mL injection Inject as directed daily. 0 02/17/2018 4 Discontinue d(Error) Active Problems Problem Noted Date Diagnosed Date Dietary Folate Deficiency Anemia 04/04/2023 Malignant Neoplasm Of Breast Upper Outer Quadrant Female Right 01/26/2022 Cancer Staging:Pathologic stage from 12/21/2021:Stage Unknown(pT1b, pNX, cM0, G2, ER+, MO+, HER2-, Oncotype DX score: 17) - Unsigned Hyponatremia 03/08/2021 Diabetes Mellitus Type 2 01/31/2009 Overview: DM II [Diabetes mellitus type II] Hypertension And Chronic Kidney Disease Stage 1 To 4 01/31/2009 Overview: Hypertension Encounters Date Type Department Care Team Description 09/11/2023 4:15 PM CDT External Outreach Division of Nephrology and Hypertension in [place], [place] [address] [place] [address] Joshua Lopez Jr., D.O. Hypertension And Chronic Kidney Disease Stage 1 To 4 (Primary Dx); Diabetes Mellitus Type 2 (HCC); Hyponatremia from Last 3 Months Immunizations Name Administration [...] week 02/12/2022 [facility] More than 4 times per year 02/12/2022 Do you belong to any clubs o r organizations such as zoroastrianism groups, unions, fraternal or [...] medical care, and heating? Somewhat hard 02/12/2022 [facility] [place] [facility] ional [facility] - Occupational Stress [...] slept in a nursing home (including now)? No 02/12/2022 Nutrition Answer [...] Sign Reading Time Taken Comments Blood Pressure 136/64 09/11/2023 4:19 PM CDT Pulse 73 09/11/2023 4:19 PM CDT Temperature 36.5 ??C (97.7 ??F) 02/18/2022 1:38 PM CD T Respiratory Rate - - Oxygen Saturation - - Inhaled Oxygen Concentration - - Weight 73.5 kg (162 lb 0.6 oz) 09/11/2023 4:19 P M CDT Height 165.1 cm (5' 5) 09/11/2023 4:19 PM CDT Body Mass Index 26.96 09/11/2023 4:19 PM CDT Plan of Treatment Health Maintenance Due Date Last Done Comments Diabetic Office Visit with Foot Exam 1945 Dilated Eye Exam 1945 Hepatitis C Screening 1945 Urine Albumin 1945 Hepatitis B Vaccines (1 of 3 - Risk 3-dose series) 2007 Hemoglobin A1C 06/18/2020 12/18/2019 Depression Screening (Annual PHQ-2) 06/26/2023 Fall Risk Screen (Annual) 06/26/2023 Creatinine Level (Kidney Function Test) 05/05/2024 05/05/2023, 05/04/2023 Potassium Level 05/05/2024 05/05/2023, 05/04/2023 Sodium Level 05/05/2024 05/05/2023, 04/26, 05/04/2023, Additional history exists DTaP,Tdap,and Td Vaccines (4 - Td or Tdap) 08/22/2024 08/22/2014, 01/22/2002, 01/22/2002, Additional history exists Office Visit for Blood Pressure Check / Re-check 09/10/2024 09/11/2023 Pneumococcal vaccine (65+ years) Completed 06/07/2018, 08/22/2014, 06/10/2010 Zoster Vaccines Completed 10/10/2018, 05/26, 03/11/2009 Mammogram Discontinued 12/21/2021, 10/24, 11/02/2021, Additional history exists Influenza Vaccine Completed 03/15/2023, , 03/31/2021, Additional history exists COVID-19 Vaccine Completed 03/29/2023, 08/2022, 10/26/2022, Additional history exists Colonoscopy Discontinued 08/04/2023 Colonoscopy Discontinued 08/04/2023 Colorectal Cancer Screening Discontinued Colorectal Cancer Surveillance Discontinued CT Colonography Discontinued CT Colonography Discontinued Cologuard Discontinued FIT Discontinued HPV Vaccines Aged Out No longer eligi ble based on patient's age to complete this topic
--- OUTSIDE RECORDS SUMMARY | 2023-09-29 15:11 | XMS_ITS | Continuity of Care Document ---
Author Name Unknown Organization [facility] Address [address] [place] [address] Phone Care Team Providers Care Rn Gynecology Name Role Phone Alexandro HARRISON, Gurinder Unavailable [...] ER (unknown strength) Not Available - Active OXYCODONE [...] on Encounter [facility], [address], [place], [place], [id number] , tel:[phone] [facility] [place] Encounter for other specified surgical aftercare 4 Alexandro Montoya [facility], [address] [place] [address], [place], [place], [id number] , . tel:[phone] Referring Provider: Corona Pretty, dateIITians [address], [place], [address]. tel:[phone] [facility], [address], [place], [place], [id number] , [place] [phone] [facility] - [facility] Encounter for other specified surgical aftercare 3 Alexandro Montoya [facility], [address] [place] [address], [place], [place], [id number] , [place]. [phone] Referring Provider: Corona Pretty dateIITians [address], [place], [address]. tel:[phone] [facility], [address], [place], [place], [id number] , [place] [phone] [facility] [place] Spinal stenosis, lumbar region with neurogenic claudication 3 Kimberly Finney. [address] [place] [address] 600, [place], [place], [id number] , . [phone] Referring Provider: Corona Pretty dateIITians [address], [place], [address]. tel:[phone] [facility], [address], [place], [place], [address] , [place] tel: [phone] [facility] No Information 3 Mehbod Amir. [facility], [address], [place], [id number] , [place]. tel: [phone] [facility], [address], [place], [place], [address] , [place] tel: [phone] [facility] No Information 3 Kimberly Finney. [address], [place], [place], [id number] , [place]. tel: [phone] Referring Provider: Corona Pretty, [facility] [address] [facility], [place], [address]. tel:[phone] [facility], [address], [place], [id number] , [place] tel: [phone] [facility] No Information 3 Mehbod Amir. [facility], [address], [place], [id number] , [place]. tel: [phone] Referring Provider: Corona Pretty, [facility] [address] [facility], [place], [address]. tel:[phone] [facility], [address], [place], [id number] , [place] tel: [phone] [facility] No Information 3 Mehbod Amir. [facility], [address], [place], [id number] , [place]. tel: [phone] Office/Outpa tient Visit,Est, Mod [facility], [address], [place], [place], [id number] , [place] tel: [phone] [facility] Spinal stenosis, lumbar region with neurogenic claudication Sep- 3 Mehbod Amir. [facility], [address], [place], [place], [id number] , [place]. tel:[phone] Referring Provider: Corona Pretty, [address], [place], [address]. tel:[phone] Office/Outpa tient Visit,New, Mod [facility], [address], [place], [place], [address] , [place] tel: [phone] [facility] Spinal stenosis, lumbar region with neurogenic claudication 2 Mehbod Amir. [facility], [address] [place] [address] [address], [place], [place], [address] , [place]. tel: [phone] Referring Provider: Corona Pretty, [address], [place], [address]. tel:[phone] Office/Outpa tient Visit,Est, Mod [facility], [address], [place], [place], [address] , [place] tel: [phone] [facility] Other forms of scoliosis, lumbar regionPost Op - Normal Follow-up 8 Mehbod Amir. [facility], [address] [place] [address] [address], [place], [place], [address] , [place]. tel:[phone] Referring Provider: Corona Pretty, [address], [place], [address]. tel:[phone] Office/Outpa tient Visit,Est, Low [facility], [address], [place], [place], [id number] , [place] tel: [phone] [facility] Encounter for other specified surgical aftercareArthrode sis status 8 Mehbod Amir. [facility], [address] [place] [address] [address], [place], [place], [address] , [place]. tel:[phone] Referring Provider: Corona Pretty, [address], [place], [address]. tel:[phone] Office/Outpa tient Visit,Est, Mod [facility], [address], [facility] [place], [address] , [place] tel: [phone] [facility] - [facility] Spinal stenosis, lumbar region NOS Mehbod Amir. [facility], [address] [place] [address], [place], [place], [address] , [place]. tel: [phone] Referring Provider: Corona Pretty, [facility], [place], [address]. tel:[phone] [facility], [address], [place], [place], [id number] , [place] tel: [phone] [facility] - [facility] Encounter for follow-up examination after completed treatment for conditions other than malignant neoplasm Mehbod Amir. [facility], [address] [place] [address], [place], [place], [id number] , [place]. tel: [phone] Referring Provider: Corona Pretty [facility]ians [facility], [place], [address]. tel:[phone] [facility], [address], [place], [place], [address] , [place] tel: [phone] [facility] - [facility] Spinal stenosis, lumbar region 7 Kimberly Finney. [address] [place] [address], [place], [place], [address] , [place]. tel: [phone] Referring Provider: [employer] [facility], [place], [address]. tel:[phone] [facility], [address], [place], [place], [address] , [place] tel: [phone] [facility] No Information Mehbod Amir. [facility], [address] [place] [address], [place], [place], [id number] , [place]. tel: [phone] Referring Provider: Corona Pretty [facility], [place], [address]. tel:[phone] Office/Outpa tient Visit,Est, Mod [facility], [address], [place], [place], [id number] , [place] tel: [phone] [facility] Spinal stenosis, lumbar region Apr-0 3-201 7 Mehbod Amir. [facility], [address] [place] [address], [place], [place], [id number] , [place]. tel: [phone] Referring Provider: Corona Pretty, [employer] [address], [place], [address]. tel:[phone] [facility], [address], [place], [place], [address] , [place] tel: [phone] [facility] [place] Spinal stenosis, lumbar region Sep- 9 6 [facility] [employer] [address] [place] [address], [place], [place], [address] , [place]. tel: [phone] Referring Provider: Corona Pretty dateIITians [address] , [place], [address]. tel:[phone] [facility], [address], [place], [place], [address] , [place] tel: [phone] [facility] [place] Spinal stenosis, lumbar region Aug-0 8-201 6 Mehbod Amir. [facility], [address] [place] [address], [place], [place], [address] , [place]. tel: [phone] Referring Provider: Tim[employer] [facility], [place], [address]. tel:[phone] [facility], [address], [place], [place], [address] , [place] tel: [phone] [facility] No Information Sergei- 4201 6 Mehbod Amir. [facility], [address] [place] [address], [place], [place], [address] , [place]. tel: [phone] Referring Provider: Corona Pretty, [employer] [address] , [place], [address]. tel:[phone] Office/Outpa tient Visit,New, Mod [facility], [address], [place], [place], [id number] , [place] tel:[phone] [facility] Mar[facility] OverweightSpinal stenosis, lumbar region 201 6 Alexandro Paigecass. [facility], [address], [place], [place], [address] , [place]. tel:[phone] Referring Provider: Corona Pretty, [address], [place], [address]. tel:[phone] Family History Family Member Type Diagnosis Age At Onset No Information Payers Payer name Insurance type Covered alliance party ID Valentin harrell(s) [employer] [facility] 2021 CI [id number] Social History Type Description Quantity Date Captured [...]
--- OUTSIDE RECORDS SUMMARY | 2023-09-29 15:11 | XMS_ITS | Encounter Summary ---
Author Name Unknown Organization [facility] Address [address] [place] [address] Care Team Providers Care Rn Case Manager Name Role Phone Lina Meléndez MD Primary Care Provider [employer], Dojsesie Shivani Unavailable Reason for Visit * Auth/Cert (Routine) Specialty Diagnoses / Procedures Referred By Caroline clement Referred To Contact Surgery Diagnoses Prolapsed internal hemorrhoids, grade 3 Screen for colon cancer Prolapsed internal hemorrhoids, grade 3 [K64.2] Screen for colon cancer [Z12.11] Procedures OK COLONOSCOPY W/WO BRUSH/WASH OK HEMORRHOIDECTOMY W BANDING/LIGATION OK LIGATION INTERNAL HEMORRHOID, SINGLE, W/O IMAGING OK LIGATION INTERNAL HEMORRHOID, 2 OR MORE, W/O IMAGING INTAROPERATIVE Colonoscopy WITH EXAM UNDER ANESTHESIA OF RECTUM WITH HEMORROIDECTOMY [facility] [address] [place] [address] Referral ID Status Reason Start Date Expiration Date Visits Re quested Visits Authorized [id number] 1 1 Encounter Details Date Type Department Care Team (Latest Contact Info) Description 08/04/2023 5:28 AM [employer] IN[employer] - 08/04/2023 11:05 AM [employer] INSTRUCTOR Hospital Encounter [facility] PreOP/PostOP [address] [place] [id number] Ever Zee MD [facility] [address] [address] Hemorrhoids, unspecified hemorrhoid type (Primary Dx) Discharge [...] Comments Blood Pressure 153/88 08/04/2023 11:00 AM [employer] INSTRUCTOR Pulse 79 08/04/2023 11:00 AM [employer] INSTRUCTOR Temperature 36.1 ??C (97 ??F) 08/04/2023 11:00 AM [employer] IN[employer]CTOR Respiratory Rate 18 08/04/2023 11:00 AM [employer] INSTRUCTOR Oxygen Saturation 100% 08/04/2023 11:00 AM [employer] IN[employer]CTOR Inhaled Oxygen Concentration - - Weight 70.9 kg (156 lb 4.8 oz) 08/04/2023 6:02 A M [employer] Height 165.1 cm (5' 5) 07/26/2023 1:00 PM [employer] IN[employer]CTOR Body Mass Index 26.01 07/26/2023 1:00 PM [employer] IN[employer] documented in this encounter Discharge Instructions * Discharge Instructions* Jorje Kendall RN - 08/04/2023 6:57 AM [employer] IN[employer]CTOR Maximum acetaminophen (Tylenol) dose from all sources should not exceed 4 grams (4000 mg) per day. You last had 975 mg at 6:56 AM; do not take Tylenol products again until after 12:[address] VIVIENNE ZEE M.D. CLINIC PHONE NUMBER: [phone] [facility] [employer]STRU[employer] * Attachments The following attachments cannot be sent through Care Everywhere. * (s) After Anesthesia (Sleep Medicine) (Swedish) documented in this encounter Medications at Time [...] 0 fluticasone (FLONASE) 50 MCG/ACT nasal spray [place] 2 sprays in nostril daily 0 folic [...] Jaime RN on 08/04/2023 at 5:51 AM [employer] documented in this encounter Miscellaneous Notes * Brief Op Note - Ever Zee MD - 08/04/2023 8:48 AM CST [facility] Brief Operative Note Pre-operative diagnosis: Prolapsed internal [...] Implants: * No implants in log * [employer] * Op Note - Ever Zee MD [...] SPECIMEN: right posterior hemorrhoid. Kiera Zee MD [employer] documented in this encounter Plan of Treatment Not on file documented as of this encounter Procedures Procedure Name Priority Date/Time Associated Diagnosis Comments GLUCOSE BY METER Routine 08/04/2023 9:05 AM [employer] INSTRUCTOR SURGICAL PATHOLOGY EXAM Routine 08/04/2023 8:19 AM [employer] INSTRUCTOR HEMORRHOIDECTOMY, INTERNAL 08/04/2023 7:38 AM [employer] INSTRUCTOR Prolapsed internal hemorrhoids, grade 3 Screen for colon cancer COLONOSCOPY 08/04/2023 7:38 AM [employer] INSTRUCTOR Prolapsed internal hemorrhoids, grade 3 Screen for colon cancer COLONOSCOPY Routine 08/04/2023 7:25 AM [employer] FITNESS INSTRUCTOR GLUCOSE BY METER Routine 08/04/2023 6:50 AM [employer] FITNESS INSTRUCTOR LAB RESULT - HIM SCAN 07/25/2023 12:00 AM [employer] INSTRUCTOR EKG CARDIAC - HIM SCAN 07/25/2023 12:00 AM [employer] INSTRUCTOR documented in this encounter Results * (ABNORMAL) Glucose by meter (08/04/2023 9:05 AM [employer] INSTRUCTOR) GLUCOSE BY METER POCT 180(H) 70 - 99 mg/dL 08/04/2023 9:13 AM [employer] FITNESS INSTRUCTOR [facility] LABORATORY POC Blood, Capillary BLOOD SPECIMEN / Unknown 08/04/2023 9:05 AM [employer] FITNESS INSTRUCTOR 08/04/2023 9:13 AM A[employer] FITNESS INSTRUCTOR Ever Zee MD LAB - [facility] POCT RH LABORATORY [facility] [address] Lab (1st floor, no room number) [place] [address], [facility] [phone] * Surgical Pathology Exam (08/04/2023 8:19 AM [employer] INSTRUCTOR) Pathologist [facility] Case Report Surgical Pathology Report ? Case: [id number] ? Authorizing Provider: ??Ever Zee MD ?? Collected: ? 08/04/2023 08:19 AM ? Ordering Location: ? [facility] ?? Received: ?08/04/2023 08:44 AM ? Main OR ? Pathologist: ? Mario Boo MD ? Specimen: ?Rectum, Right posterior hemorroid ? 08/07/2023 1:17 PM [facility] Final Diagnosis A(1). Anal/Rectal mucosa and soft tissue, Right posterior, excision: - Polypoid colonic mucosa with prominent underlying blood vessels consistent with hemorrhoidal tissue. - Negative for dysplasia or malignancy. 08/07/2023 1:17 PM [facility] Clinical Information Procedure: INTAROPERATIVE Colonoscopy WITH EXAM UNDER ANESTHESIA OF RECTUM WITH HEMORROIDECTOMY Pre-op Diagnosis: Prolapsed internal hemorrhoids, grade 3 [K64.2] Screen for colon cancer [Z12.11] Post-op Diagnosis: K64.2 - Prolapsed internal hemorrhoids, grade 3 [ICD-10-CM] Z12.11 - Screen for colon cancer [ICD-10-CM] 08/07/2023 1:17 PM [facility] Gross Description A(1). [...] specimen (MARTIR Jones (ASCP) 08/07/2023 1:17 PM [employer] INSTRUCTOR LABORATORY Microscopic Description Microscopic examination was performed. 08/07/2023 1:17 PM [facility] Performing Labs The technical component of this testing was completed at [facility] 08/07/2023 1:17 PM [employer] INSTRUCTOR LABORATORY Case Images 08/07/2023 1:17 PM [employer] INSTRUCTOR LABORATORY Tissue RECTUM PART / Unknown 08/04/2023 8:19 AM [employer] INSTRUCTOR 08/04/2023 8:44 AM [employer] FITNESS INSTRUCTOR Ever VICTOR - [facility] Lab [address] [facility] Lab (1st floor, no room number) [place] [id number], [facility] [phone] * COLONOSCOPY (08/04/2023 7:25 AM [employer] FITNESS INSTRUCTOR) COLONOSCOPY [facility] Patient Name: Maryam Cortez ?Procedure Date: 08/04/2023 [...] ?Olympus, Pediatric Colonoscope, Model # [id number]-H190DL, ?Censitrac #[id number] was introduced through the ?anus with the [...] criteria for high risk CPT copyright 2021 [employer]. All rights reserved. The codes documented in this report are preliminary and upon rubber press tender review may be revised to meet current compliance requirements. EVER ZEE MD 08/04/2023 8:47:30 AM I was physically present for the entire viewing portion of the exam. EVER ZEE MD Number of Addenda: 0 Note Initiated On: 08/04/2023 7:25 AM MRN: ?[id number] Procedure Date: ? 08/04/2023 7:25:15 AM Total Procedure Duration: 0 hours 3 minutes 40 seconds Estimated Blood Loss: ? Scope In: 7:47:47 AM Scope Out: 7:51:27 AM RADIOLOGY RESULTS 08/04/2023 7:25 AM [employer] INSTRUCTOR Ever Zee MD PROCEDURES RADIOLOGY RESULTS * (ABNORMAL) Glucose by meter (08/04/2023 6:50 AM [employer] FITNESS INSTRUCTOR) GLUCOSE BY METER POCT 182(H) 70 - 99 mg/dL 08/04/2023 6:57 AM A[employer] FITNESS INSTRUCTOR [facility] LABORATORY POC Comment:Dr/RN Notified Blood, Capillary BLOOD SPECIMEN / Unknown 08/04/2023 6:50 AM [employer] FITNESS INSTRUCTOR 08/04/2023 6:57 AM A[employer]ICS GROUP FITNESS INSTRUCTOR Ever Zee MD LAB - [facility] PO[facility] LABORATORY [facility] [address] Lab (1st floor, no room number) [place] [address], [facility] [phone] * LAB RESULT - HIM SCAN (07/25/2023 12:00 AM [employer] FITNESS INSTRUCTOR) 07/25/2023 Provider Outside NON-BEAKER LAB TE STING * EKG CARDIAC - HIM SCAN (07/25/2023 12:00 AM [employer] FITNESS INSTRUCTOR) 07/25/2023 Provider Outside ECG ORDERABLES documented in [...] 4 grams/day., Pre-procedure $Given 08/04/2023 6:56 AM [employer] FITNESS INSTRUCTOR 975 mg fentaNYL (PF) (SUBLIMAZE) injection 25 [...] Mon08/04/23 at 0840 Restarted 08/04/2023 7:38 AM [employer] FITNESS INSTRUCTOR $New Bag 08/04/2023 6:52 AM [employer] INSTRUCTOR 10 mL/hr lactated ringers infusion at 100 [...] after each dose. $Given 08/04/2023 9:10 AM [employer] FITNESS INSTRUCTOR 1 mg naloxone (NARCAN) injection 0.2 mg [...] Recently Administered Medications Times are shown in [employer]CTOR. Scheduled Medication Order 08/02/2023 08/03/2023 08/04/2023 acetaminophen [...] ll documented in this encounter Care Teams Rn Case Manager Relationship Specialty Start Date End Date Lina Meléndez MD [facility] & [address] [address] PCP - General Internal Medicine 12/26/14 Rhoda Sarabia I [address] [place] [address] Property Management Assistant Dietitian, Registered 02/20/20 documented as of this encounter
--- OUTSIDE RECORDS SUMMARY | 2023-09-29 15:12 | XMS_ITS ---
Author Name Unknown Organization [facility] Address [address] [place] [address] Care Team Providers Care Dye House Supervisor Name Role Phone Unavailable Unavailable Unavailable Surgery Details Not on file Complications Check Surgery Details section. Procedure Estimated Blood Loss Check Surgery Details section. Procedure Findings Check Surgery Details section. Procedure Specimens Taken Check Surgery Details section.
--- OUTSIDE RECORDS SUMMARY | 2023-09-29 15:12 | XMS_ITS | Referral Summary ---
Author Name Unknown Organization [facility] Address [address] [place] [address] Care Team Providers Care Canoe Inspector Name Role Phone Unavailable Primary Care Provider Unavailabl e Source Comments Patient records contain information from all sites at [facility]. For routine questions regarding patient records, call [phone] during business hours, M-F 8:00 AM - 5:00 PM Central Time. Record requests for emergency care only can be directed to [phone] at any time.[facility] Encounters Date Type Department Care Team Description 09/11/2023 4:15 PM CDT External Outreach Division of Nephrology and Hypertension in [place], [place] [address] [place] [address] Joshua Lopez Jr., D.O. Hypertension And Chronic Kidney Disease Stage 1 To 4 (Primary Dx); Diabetes Mellitus Type 2 (HCC); Hyponatremia from Last 3 Months Allergies Active Allergy [...] from 12/21/2021:Stage Unknown(pT1b, pNX, cM0, G2, ER+, RI+, HER2-, Oncotype [...] any clubs o r organizations such as yazidi groups, unions, fraternal or athletic groups, or [...] medical care, and heating? Somewhat hard 02/12/2022 [facility] [place] [facility] - Occupational Stress [...] 09/11/2023 4:19 PM CDT Plan of Treatment Not on file
--- OUTSIDE RECORDS SUMMARY | 2023-09-29 15:12 | XMS_ITS ---
Author Name Unknown Organization [facility] Address [address] [place] [address] Care Team Providers Care Mix Technician Name Role Phone Unavailable Primary Care Provider Unavailabl e Active Problems Problem Noted Date Diagnosed Date Dietary Folate Deficiency Anemia 04/04/2023 Malignant Neoplasm Of Breast Upper Outer Quadrant Female Right 01/26/2022 Cancer Staging:Pathologic stage from 12/21/2021:Stage Unknown(pT1b, pNX, cM0, G2, ER+, VA+, HER2-, Oncotype DX score: 17) - Unsigned [...] Treated Prescribed Fraction Dose Prescribed Total Dose [id number] 02/18/2022 4 5 of 5 520 cGy 2,600 cGy Reference Point Last Treated On Elapsed Days Session Dose Total Dose [id number] 02/18/2022 4 520 cGy 2,600 cGy icru ref 02/16/2022 2 531 cGy 1,593 cGy
--- OUTSIDE RECORDS SUMMARY | 2023-09-29 15:12 | XMS_ITS | Encounter Summary ---
Author Name Unknown Organization [facility] Address [address] [place] [address] Care Team Providers Care Elastic Attacher Overlock Name Role Phone Unavailable Primary Care Provider Unavailabl e Reason for Visit * Appointment Request (Routine) - Closed Specialty Diagnoses / Procedures Referred By Caroline clement Referred To Contact Nephrology and Hypertension Referral ID Status Reason Start Date Expiration Date Visits Re quested Visits Authorized [id number] Closed 08/10/2023 08/09/2024 1 1 Encounter Details Date Type Department Care Team (Latest Contact Info) Description 09/11/2023 4:15 PM CDT External Outreach Division of Nephrology and Hypertension in [place], [place] [address] [place] [address] Joshua Lopez Jr., D.O. [address] [place] [address] Hypertension And Chronic Kidney Disease Stage 1 To 4 (Primary Dx); Diabetes Mellitus Type 2 (HCC); Hyponatremia Social History Tobacco Use Types Packs/Day Years [...] How often do you attend chur or hinduism services? More than 4 times per year 02/12/2022 Do you belong to any clubs o r organizations such as taoist groups, unions, fraternal or athletic groups, or [...] heating? Somewhat hard 02/12/2022 [facility] [place] of Occupat ional Health - Occupational Stress [...] place to sleep or slept in a correction (including now)? No 02/12/2022 Nutrition Answer Date [...] Pulse 73 09/11/2023 4:19 PM CDT Temperature - - Respiratory Rate - - Oxygen Saturation - - Inhaled Oxygen Concentration - - Weight 73.5 kg (162 lb 0.6 oz) 09/11/2023 4:19 P M CDT Height 165.1 cm (5' 5) 09/11/2023 4:19 PM CDT Body Mass Index 26.96 09/11/2023 4:19 PM CDT documented in this encounter Progress Notes * Joshua Lopez Jr., D.Dillon. - 09/11/2023 4:15 PM CDT Referring Provider: DR Rome SUBJECTIVE REASON FOR VISIT [place] [facility] Follow-up regards severe resistant hypertension diabetes mellitus type 2 microalbuminuria HISTORY OF PRESENT ILLNESS Ms. Cortez is a 78 y.o. female who presents with severe resistant hypertension for which she is doing quite well we reviewed her blood pressure logs which are excellent. She has no orthostatic issue, intermittent mild lower extremity swelling, she avoid sodium. Sleep has been a bit problematic lately we discussed this. She is getting difficult low blood sugars at night, she takes her long-acting insulin in the morning and supplements insulin 6 times daily with meals. She is adapting to this with Dr. Gupat. No shortness of breath no chest pain no cerebrovascular symptoms. Past Medical History: Diagnosis Date Anemia Of [...] glucose scanning reader (FREESTYLE KYLIE) [facility], , Disp: , Rfl: flash glucose sensor [...] by mouth at bedtime., Disp: , Rfl: insulin aspart U-100 (NovoLOG) [...] systems reviewed and are negative. OBJECTIVE BP 136/64 Pulse 73 Ht 165.1 cm Wt 73.5 kg BMI 26.96 kg/m?? PHYSICAL EXAMINATION General: Awake alert oriented HEENT: NEEL, EOMI, Mucous membranes moist, no oral lesions Neck: No Masses, No Bruits Lungs: Clear to ascultation Heart: Regular Rate and Rhythm, No ectopy Murmurs or rubs Abdomen: Soft, Non-tender Extremities: No cyanosis, No clubbing: Trace lower extremity +1 edema Neuro: Cranial Nerves intact, Gait is normal, strength grossly normal Skin: no suspicious lesions identified Psychiatric: Normal affect DIAGNOSTICS Note normal serum creatinine level, serum sodium 132, glycosylated hemoglobin 7 0.2% ASSESSMENT / PLAN #1 Hypertension And Chronic Kidney Disease Stage 1 To 4 She is CKD stage 1, with microalbuminuria and severe hypertension. We have managed her blood pressure with a complex regimen as follows: 1. Procardia XL 30 mg orally daily 2. Carvedilol 6.25 mg orally twice daily Difficulties with multiple medical sensitivities. She is avoiding sodium and doing well overall. #2 Diabetes Mellitus Type 2 (HCC) Glycemic control is excellent although she is struggling with nocturnal hypoglycemic events, unclear whether this is a stress related matter, perhaps the long-acting insulin could be decreased, in substitution with short-acting insulin with meals perhaps increasing slightly. #3 Hyponatremia She has a reset Osmo receptor situation, she is asymptomatic. We have discussed increased protein diet, and minimizing excess free water. Free water intake should be generally less than 2 L per day Total time: 30 minutes Counseling Time: 25 minutes Joshua Lopez Jr., D.O. documented in this encounter Plan of Treatment Not on file documented as of this encounter Visit Diagnoses Diagnosis Hypertension And Chronic Kidney Disease Stage 1 To 4- Primary Diabetes Mellitus Type 2 (HCC) Hyponatremia documented in this encounter
--- NOTE | 2023-09-29 15:20 | MM_ITS ---
Patient: DANDRE CRISOSTOMO Facility:?[facility] Patient ID:?[id number] Site Patient ID:?[id number]. Site :?[id number] Study:?XRay-Breast Bilateral 3D w/CAD-09/29/2023 3:27:49 PM Ordering Physician:Jonas Final Report: BILATERAL SCREENING MAMMOGRAM WITH COMPUTER-AIDED DETECTION AND TOMOSYNTHESIS TECHNIQUE: CC and MLO views were obtained. These mammographic images have been obtained using full-field digital technique. These mammographic images were interpreted with the benefit of computer-aided detection. Breast Tomosynthesis was used in this interpretation. COMPARISON FILM: 08/02/2022, 11/02/2021, 06/24/2022. FINDINGS: The breasts are heterogeneously dense, which may obscure small masses. IMPRESSION: There is no radiographic evidence for malignancy. ASSESSMENT: BI-RADS Category 2: Benign RECOMMENDATION: Routine screening mammogram in 1 year. A lay language report of this examination will be provided to the patient. David Olson M.D. Diagnostic Radiologist [email or web address] DSM/sp R& Transcribed: 12:02 p.m. SP/Dictated by: David Olson MD @ 10/02/2023 9:54:00 AM Signed by:Tim Olson MD @10/02/2023 12:12:25 PM (Electronic Signature)
== END 2023-09-29 15:08 | disposition home or self-care (01) ==
LOC: MAMMO 15:08
PROVIDERS: PCP Internal Medicine; Visit Provider Physician Assistant
DX: Z12.31 Encounter for screening mammogram for malignant neoplasm of breast (principal); R92.2 Inconclusive mammogram
CPT/HCPCS: 77063; 77067

== ENCOUNTER 2023-10-06 07:56 | Outpatient (CLI) | payer MEDICARE, SELFPAY ==
--- OUTSIDE RECORDS SUMMARY | 2023-10-13 07:53 | XMS_ITS | Clinical Summary ---
Author Name Unknown Organization [facility] Address [address] [place] [address] Care Team Providers Care Flash Oven Operator Name Role Phone Lina Meléndez MD Primary Care Provider [phone]- [phone] Source Comments You are receiving this document as you are listed as the primary care provider,follow-up provider, or the patient has been referred to you for consultation.This is in compliance with the Medicare andJ.[facility] Hospital[facility] EHR Incentive Program,which states Providers who transition their patient to another setting of careor provider of care or refers their patient to another provider of care shouldprovide summary care record for each transition of care or referral. [facility] Allergies Active Allergy Reactions Criticality Noted Date [...] Overview: Added automatically from request for surgery [id number] TC (obstructive sleep apnea) 11/05/2018 Arthritis of [...] Comments Blood Pressure 147/63 07/17/2019 2:34 PM DATASTAGE ARCHITECT Pulse 75 07/17/2019 2:34 PM DATASTAGE ARCHITECT Temperature 36.7 ??C (98.1 ??F) 07/17/2019 2:34 PM CS T Respiratory Rate 18 07/17/2019 2:34 PM DATASTAGE ARCHITECT Oxygen Saturation 99% 07/17/2019 2:34 PM DATASTAGE ARCHITECT Inhaled Oxygen Concentration - - Weight 75 kg (165 lb 6.4 oz) 07/16/2019 10:19 AM DATASTAGE ARCHITECT Height 165.1 cm (5' 5) 07/16/2019 10:19 AM DATASTAGE ARCHITECT Body Mass Index 27.52 07/16/2019 10:19 AM DATASTAGE ARCHITECT Plan of Treatment Health Maintenance Due [...] this topic Medical Devices Implanted Type Area Binding Dyer Device Identifier Shelf Expiration Date Model / Serial / Lot Chip Canpolo Brunner 30cc - [id number] Implanted:Qty : 1 on 07/16/2019 by Edelmira Rodriguez MD at [facility] DEVICE Left: SHOULDER Medtronic - Spin[employer]raft [employer] 08/14/2023 [id number] / / [id number] Scr Star Lk Sftp 3.5x48 - [id number] Implanted:Qty : 1 on 07/16/2019 by Edelmira Rodriguez MD at [facility] DEVICE Left: HUMERUS MIDSHAFT DePuy Synthes - Trauma 212.120 / / Scr Cj Sftp Ss 3.5x32 F-Thrd - [id number] Implanted:Qty : 1 on 07/16/2019 by Edelmira Rodriguez MD at [facility] DEVICE Left: HUMERUS MIDSHAFT DePuy Synthes - Trauma 204.832 / / [id number] Plt Prox Hum 3.5x90 6h/3h - [id number] Implanted:Qty : 1 on 07/16/2019 by Edelmira Rodriguez MD at [facility] DEVICE Left: SHOULDER DePuy Synthes - Trauma 241.901 / / [id number] Scr Cj Sftp Ss 3.5x26 F-Thrd - [id number] Implanted:Qty : 1 on 07/16/2019 by Edelmira Rodriguez MD at [facility] DEVICE Left: HUMERUS MIDSHAFT DePuy Synthes - Trauma 204.826 / / Description:3.5mm 26mm Scr Cj Sftp Ss 3.5x28 F-Thrd - [id number] Implanted:Qty : 1 on 07/16/2019 by Edelmira Rodriguez MD at [facility] DEVICE Left: HUMERUS MIDSHAFT DePuy Synthes - Trauma 204.828 / / Scr Star Lk Sftp 3.5x34 - [id number] Implanted:Qty : 1 on 07/16/2019 by Edelmira Rodriguez MD at [facility] DEVICE Left: HUMERUS MIDSHAFT DePuy Synthes - Trauma 212.113 / / Scr Star Lk Sftp 3.5x36 - [id number] Implanted:Qty : 2 on 07/16/2019 by Edelmira Rodriguez MD at [facility] DEVICE Left: HUMERUS MIDSHAFT DePuy Synthes - Trauma 212.115 / / Scr Star Lk Sftp 3.5x40 - [id number] Implanted:Qty : 2 on 07/16/2019 by Edelmira Rodriguez MD at [facility] DEVICE Left: HUMERUS MIDSHAFT DePuy Synthes - Trauma 212.117 / / Scr Star Lk Sftp 3.5x45 - [id number] Implanted:Qty : 1 on 07/16/2019 by Edelmira Rodriguez MD at [facility] DEVICE Left: HUMERUS MIDSHAFT DePuy Synthes - Trauma 212.119 / / Scr Star Lk Sftp 3.5x46 - [id number] Implanted:Qty : 1 on 07/16/2019 by Edelmira Rodriguez MD at [facility] DEVICE Left: HUMERUS MIDSHAFT DePuy Synthes - Trauma 212.136 / / Procedures Procedure Name Priority Date/Time Associated Diagnosis Comments BASIC METABOLIC PANEL Routine 07/17/2019 7:49 AM DATASTAGE ARCHITECT HGB A1C Routine 07/17/2019 7:49 AM DATASTAGE ARCHITECT from Last 3 Months or Most Recently Relevant to Health Maintenance Results * (ABNORMAL) Basic Metabolic Panel (IN AM) (07/17/2019 7:49 AM DATASTAGE ARCHITECT) Pathologist [facility] Sodium 131(L) 136 - 145 mmol/L 07/17/2019 8:42 AM DATASTAGE ARCHITECT [facility] Potassium 3.3(L) 3.5 - 5.1 mmol/L 07/17/2019 8:42 AM DATASTAGE ARCHITECT [facility] Chloride 98 98 - 109 mmol/L 07/17/2019 8:42 AM DATASTAGE ARCHITECT [facility] CO2 25 20 - 29 mmol/L 07/17/2019 8:42 AM DATASTAGE ARCHITECT [facility] Anion Gap 8 7 - 16 mmol/L 07/17/2019 8:42 AM DATASTAGE ARCHITECT [facility] Calcium 8.4 8.4 - 10.4 mg/dL 07/17/2019 8:42 AM DATASTAGE ARCHITECT [facility] BUN 16 7 - 26 mg/dL 07/17/2019 8:42 AM DATASTAGE ARCHITECT [facility] Creatinine 0.65 0.55 - 1.02 mg/dL 07/17/2019 8:42 AM DATASTAGE ARCHITECT [facility] GFR, Estimated >60 >60 mL/min/1.7 3m2 07/17/2019 8:42 AM DATASTAGE ARCHITECT [facility] GFR, Est If >60 >60 mL/min/1.7 3m2 07/17/2019 8:42 AM DATASTAGE ARCHITECT [facility] Glucose 187(H) 70 - 100 mg/dL 07/17/2019 8:42 AM DATASTAGE ARCHITECT [facility] Comment:The given reference range is for the fasting state. Non-fasting reference range for glucose is 70 - 180 mg/dL. Blood Venipuncture / Unknown 07/17/2019 7:49 AM DATASTAGE ARCHITECT 07/17/2019 7:56 AM DATASTAGE ARCHITECT Larisa Gaines MD LAB_1 [facility] [address] * (ABNORMAL) Hemoglobin A1C Glycosylated (IN AM) (07/17/2019 7:49 AM DATASTAGE ARCHITECT) Hemoglobin A1C 6.7(H) <=5.6 % 07/17/2019 1:39 PM DATASTAGE ARCHITECT [facility] Blood Venipuncture / Unknown 07/17/2019 7:49 AM DATASTAGE ARCHITECT 07/17/2019 7:56 AM DATASTAGE ARCHITECT Narrative [facility] - 07/17/2019 1:39 PM DATASTAGE ARCHITECT For patients not previously diagnosed with diabetes: 5.7-6.4%: Increased risk for diabetes 6.5% and greater: Diagnostic for diabetes For patients diagnosed with diabetes: <8.0%: Goal of therapy for ages 18-75 Clinicians may recommend a higher or lower goal for specific individuals. Larisa Gaines MD LAB_1 Performing Organization Address [facility] de Phone Number [facility] [address] from Last 3 Months or Most Recently Relevant to Health Maintenance Advance Directives * Full Code (Latest Code Status on File) Date Activated Date Inactivated Comments 07/16/2019 4:18 PM 07/17/2019 5:47 PM Care Teams Flash Oven Operator Relationship Specialty Start Date End Date Lina Meléndez MD [address] [place] [address] PCP - General Internal Medicine 12/20/18
--- OUTSIDE RECORDS SUMMARY | 2023-10-13 07:53 | XMS_ITS | Clinical Summary ---
Author Name Unknown Organization [facility] Address [place], [place] [address] Care Team Providers Care Director Export Name Role Phone Lina Meléndez MD Primary Care Provider +1- [phone] Allergies Active Allergy Reactions Criticality Noted Date [...] bedtime. 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 glucose monitor SENSOR KIT ([employer]) 12/31/2021 Active bd insulin pen needle uf [...] Sex Assigned at Female 08/31/2020 9:33 AM EQUITY HOLDER Gender Identity Female 08/31/2020 9:33 AM EQUITY HOLDER Sexual Orientation Straight 08/31/2020 9: 33 AM EQUITY HOLDER Obstetrics History Para Term AB IAB SAB [...] Comments Blood Pressure 130/62 06/07/2023 2:05 PM EQUITY HOLDER Pulse 72 06/07/2023 2:05 PM EQUITY HOLDER Temperature 37.1 ??C (98.7 ??F) 05/05/2023 7:27 AM CS T Respiratory Rate 16 05/05/2023 7:27 AM EQUITY HOLDER Oxygen Saturation 100% 06/07/2023 2:05 PM EQUITY HOLDER Inhaled Oxygen Concentration - - Weight 70.8 kg (156 lb) 06/07/2023 2:05 PM EQUITY HOLDER Height 165.1 cm (5' 5) 06/07/2023 2:05 PM EQUITY HOLDER Body Mass Index 25.96 06/07/2023 2:05 PM EQUITY HOLDER Plan of Treatment Health Maintenance Due Date [...] history exists Medical Devices Implanted Type Area Buzzsaw Operator Helper Device Identifier Shelf Expiration Date Model / Serial / Lot [id number] 1-4mm 30cc Medtronic Chips Canclls Freeze Dried Implanted:Qty: 1 on 12/06/2016 by Gurinder Mc MD at [facility] Explanted:at [facility] (Quantity not on file) Spine Medtronic Spine/Ortho 08/24/2021 [id number]# / [id number] / Spacer Lmbr [id number] Zyston Convex Stra Plif - [id number] Implanted:Qty: 1 on 12/06/2016 by Gurinder Mc MD at [facility] Spine Meka [employer] 07/26/2026 [id number] # / / [id number] Matrix 3cc [place]ac Dbf Putty Dbm Implanted:Qty: 1 on 12/06/2016 by Gurinder Mc MD at [facility] Explanted:at [facility] (Quantity not on file) Spine Medtronic Spine/Ortho 09/08/2018 [id number]# / [id number] / Screw Lmbr Post 5.5x40mm Vitality Va - [id number] Implanted:Qty: 1 on 12/06/2016 by Gurinder Mc MD at [facility] Spine [employer] Spine 07.38360. 032# / / Screw Lmbr Post 5.5x45mm Vitality Va - [id number] Implanted:Qty: 2 on 12/06/2016 by Gurinder Mc MD at [facility] Spine [employer] Spine 07.52442. 033# / / Set Screw Lmbr 5.5-6mm Vitality Shear Off - [id number] Implanted:Qty: 4 on 12/06/2016 by Gurinder Mc MD at [facility] Spine [employer] Spine 11. 001# / / Avni Lmbr 40x5.5mm Vitality Cvd Titnm - [id number] Implanted:Qty: 2 on 12/06/2016 by Gurinder Mc MD at [facility] Spine [employer] Spine 15. 005# / / Spacer Lmbr [id number] Zyston Convex Stra Plif - [id number] Implanted:Qty: 1 on 12/06/2016 by Gurinder Mc MD at [facility] Spine [employer] [id number] # / / Screw Lmbr Post 6.5x40mm Vitality Va - [id number] Implanted:Qty: 1 on 12/06/2016 by Gurinder Mc MD at [facility] Spine [employer]a [employer] Spine . 074# / / .[id number] Double Ended K-Wire Implanted:Qty: 2 on 12/03/2018 by Rex Fink DPM at [facility] Right: Foot N/A / / Interstim Basic Evaluation Lead Implanted:Qty: 1 on 09/28/2022 by Michelle Colmenares DO at [facility] Medtronic 01/26/2024 [id number] / / [id number] Interstim Basic Evaluation Kit Implanted:Qty: 1 on 09/28/2022 by Michelle Colmenares DO at [facility] Sacr Medtronic 08/27/2023 [id number] / / [id number] Sys Interstim X Surescan Mri Lead And Smart Pipe Turner - [id number] Implanted:Qty: 1 on 10/18/2022 by Michelle Colmenares DO at [facility] Right: Buttock Medtronic Pain Therapy 02/07/2024 [id number] / [id number] / Lead Kit 4.32mm Spacing 28cm Length Interstim - [id number] Implanted:Qty: 1 on 10/18/2022 by Michelle Colmenares DO at [facility] Right: Buttock Medtronic Pain Therapy 01/17/2024 [id number] / / [id number] Envlp Neuro Tyrx Absorb Antibacterial - [id number] Implanted:Qty: 1 on 10/18/2022 by Michelle Colmenares DO at [facility] Right: Buttock Medtronic 03/20/2023 [id number] / / [id number] Spacer Lmbr [id number] Zyston Convex Stra Tlif - [id number] Implanted:Qty: 1 on 05/03/2023 by Gurinder Mc MD at [facility] N/A: Spine [employer] 09/13/2026 [id number] / / [id number] Avni Lmbr 95x5.5mm Vitality Cvd Titnm - [id number] Implanted:Qty: 1 on 05/03/2023 by Gurinder Mc MD at [facility] N/A: Spine [employer] Spine 07.58572. 016 / / Avni Lmbr 90x5.5mm Vitality Cvd Titnm - [id number] Implanted:Qty: 1 on 05/03/2023 by Gurinder Mc MD at [facility] N/A: Spine [employer] Spine 07.40073. 015 / / Set Screw Lmbr 5.5-6mm Vitality Torque - [id number] Implanted:Qty: 8 on 05/03/2023 by Gurinder Mc MD at [facility] N/A: Spine [employer] Spine 07.53338. 001 / / Screw Spinal 4.5x45mm Poly Tl Implanted:Qty: 1 on 05/03/2023 by Gurinder Mc MD at [facility] N/A: Spine [id number] / / Description:SCREW SPINAL 4.5 X45MM POLY TL Screw Spinal 5.5x45mm Poly Tl Implanted:Qty: 3 on 05/03/2023 by Gurinder Mc MD at [facility] N/A: Spine [id number] / / Description:SCREW SPINAL 5.5 X45MM POLY TL Bone 1-4mm 60cc [employer]uRx Pharmaceutical[employer]onic Fine Canclls Freeze Dried - [id number] Implanted:Qty: 1 on 05/03/2023 by Gurinder Mc MD at [facility] N/A: Spine Medtronic Spine/Ortho 09/21/2026 [id number] / [id number] / Bone Matrix 6cc Massac Dbf Putty Dbm - [id number] Implanted:Qty: 1 on 05/03/2023 by Gurinder Mc MD at [facility] N/A: Spine Medtronic Spine/Ortho 04/11/2025 [id number] / [id number] / Procedures Procedure Name Priority Date/Time Associated Diagnosis Comments EXPOSURE (BBF) ANTI HCV STAT 12/08/2016 1:07 AM CDT from Last 3 Months or Most Recently Relevant to Health Maintenance Results * Patient Source ANTI HCV (12/08/2016 1:07 AM CDT) HEPATITIS C ANTIBODY Non-Reacti ve Non-Reacti ve 12/08/2016 2:31 AM CDT [employer] [facility] Blood BLOOD SPECIMEN / Unknown Venipuncture / Unknown 12/08/2016 1:07 AM CDT 12/08/2016 1:28 AM [facility] - 12/08/2016 2:31 AM CDT Antibodies to HCV not detected; does not exclude the possibility of exposure to HCV. Meghann Humphreys MD [facility] [address] [place] [address], [place] from Last 3 Months or Most Recently Relevant to Health Maintenance Advance Directives Documents on File Type Date Recorded Patient Testing Lead Expl anation Healthcare Directive 12/31/2015 7:52 AM [...] Comments Code Status Discussion: Discussed Care Teams Director Export Relationship Specialty Start Date End Date Lina Meléndez MD [address] [place] [address] PCP - General Internal Medicine 11/01/21
--- OUTSIDE RECORDS SUMMARY | 2023-10-13 07:54 | XMS_ITS | Encounter Summary ---
Author Name Unknown Organization [facility] Address [address] [place] [address] Care Team Providers Care Hole Digger Name Role Phone Lina Meléndez MD Primary [...] on filedocumented in this encounter Care Teams Hole Digger Relationship Specialty Start Date End Date Lina Meléndez MD [facility] [address] [place] [address] PCP - General Internal Medicine 12/26/14 Rhoda Sarabia I [address] [place] [id number] Title Clerk Dietitian, Registered 02/20/20 documented as of this encounter
--- OUTSIDE RECORDS SUMMARY | 2023-10-13 07:54 | XMS_ITS | Continuity of Care Document ---
Author Name Unknown Organization [facility] Address [address] [place] [address] Phone Care Team Providers Care Veneer Clipper Name Role Phone Alexandro HARRISON, Gurinder Unavailable [...] on Encounter [facility], [address], [place], [place], [id number] , tel:[phone] [facility] [place] Encounter for other specified surgical aftercare 4 Alexandro Montoya [facility], [address] [place] [address], [place], [place], [id number] , . tel:[phone] Referring Provider: Corona Pretty, [address], [place], [address]. tel:[phone] [facility], [address], [place], [place], [address] , [place] [phone] [facility] Encounter for other specified surgical aftercare 3 Alexandro Montoya [facility], [address] [place] [address], [place], [place], [id number] , [place]. [phone] Referring Provider: Corona Pretty [address], [place], [address]. tel:[phone] [facility], [address], [place], [place], [address] , [place] [phone] [facility] [place] Spinal stenosis, lumbar region with neurogenic claudication 3 Kimberly Finney. [address] [place] [address], [place], [place], [id number] , . [phone] Referring Provider: Corona Pretty [address], [place], [address]. tel:[phone] [facility], [address], [place], [place], [id number] , [place] tel: [phone] [facility] No Information 3 Mehbod Amir. [facility], [address], [place], [id number] , [place]. tel: [phone] [facility], [address], [place], [place], [address] , [place] tel: [phone] [facility] No Information 3 Kimberly Finney. [address], [place], [place], [id number] , [place]. tel: [phone] Referring Provider: Corona Pretty, [facility] [address] [facility], [place], [address]. tel:[phone] [facility], [address], [place], [id number] , [place] tel: [phone] [facility] No Information 3 Mehbod Amir. [facility], [address], [place], [id number] , [place]. tel: [phone] Referring Provider: Corona Pretty, [facility] [address] [facility], [place], [address]. tel:[phone] [facility], [address], [place], [id number] , [place] tel: [phone] [facility] No Information 3 Mehbod Amir. [facility], [address], [place], [id number] , [place]. tel: [phone] Office/Outpa tient Visit,Est, Mod [facility], [address], [place], [place], [id number] , [place] tel: [phone] [facility] Spinal stenosis, lumbar region with neurogenic claudication Sep- 3 Mehbod Amir. [facility], [address], [place], [place], [id number] , [place]. tel:[phone] Referring Provider: Corona Pretty, [address], [place], [address]. tel:[phone] Office/Outpa tient Visit,New, Mod [facility], [address], [place], [place], [id number] , [place] tel: [phone] [facility] Spinal stenosis, lumbar region with neurogenic claudication 2 Mehbod Amir. [facility], [address] [place] [address] [address], [place], [place], [id number] , [place]. tel: [phone] Referring Provider: Corona Pretty, [address], [place], [address]. tel:[phone] Office/Outpa tient Visit,Est, Mod [facility], [address], [place], [place], [address] , [place] tel: [phone] [facility] Other forms of scoliosis, lumbar regionPost Op - Normal Follow-up 8 Mehbod Amir. [facility], [address] [place] [address] [address], [place], [place], [id number] , [place]. tel:[phone] Referring Provider: Corona Pretty, [address], [place], [address]. tel:[phone] Office/Outpa tient Visit,Est, Low [facility], [address], [place], [place], [id number] , [place] tel: [phone] [facility] Encounter for other specified surgical aftercareArthrode sis status 8 Mehbod Amir. [facility], [address] [place] [address] [address], [place], [place], [id number] , [place]. tel:[phone] Referring Provider: Corona Pretty, [address], [place], [address]. tel:[phone] Office/Outpa tient Visit,Est, Mod [facility], [address], [facility] [place], [id number] , [place] tel: [phone] [facility] Spinal stenosis, lumbar region NOS Mehbod Amir. [facility], [address] [place] [address], [place], [place], [id number] , [place]. tel: [phone] Referring Provider: Corona Pretty, [facility], [place], [address]. tel:[phone] [facility], [address], [place], [place], [id number] , [place] tel: [phone] [facility] Encounter for follow-up examination after completed treatment for conditions other than malignant neoplasm Mehbod Amir. [facility], [address] [place] [address], [place], [place], [id number] , [place]. tel: [phone] Referring Provider: Corona Pretty [facility], [place], [address]. tel:[phone] [facility], [address], [place], [place], [address] , [place] tel: [phone] [facility] Spinal stenosis, lumbar region 7 Kimberly Finney. [address] [place] [address], [place], [place], [id number] , [place]. tel: [phone] Referring Provider: [facility], [place], [address]. tel:[phone] [facility], [address], [place], [place], [address] , [place] tel: [phone] [facility] No Information Mehbod Amir. [facility], [address] [place] [address], [place], [place], [id number] , [place]. tel: [phone] Referring Provider: Corona Pretty [facility], [place], [address]. tel:[phone] Office/Outpa tient Visit,Est, Mod [facility], [address], [place], [place], [id number] , [place] tel: [phone] [facility] Spinal stenosis, lumbar region Apr-0 3-201 7 Mehbod Amir. [facility], [address] [place] [address], [place], [place], [id number] , [place]. tel: [phone] Referring Provider: Corona Pretty, [facility] [address], [place], [address]. tel:[phone] [facility], [address], [place], [place], [address] , [place] tel: [phone] [facility] Spinal stenosis, lumbar region Sep- 9 6 [facility] [address] [place] [address], [place], [place], [id number] , [place]. tel: [phone] Referring Provider: Corona Pretty [address] , [place], [address]. tel:[phone] [facility], [address], [place], [place], [id number] , [place] tel: [phone] [facility] Spinal stenosis, lumbar region Aug-0 8-201 6 Mehbod Amir. [facility], [address] [place] [address], [place], [place], [address] , [place]. tel: [phone] Referring Provider: Timoteo [facility], [place], [address]. tel:[phone] [facility], [address], [place], [place], [address] , [place] tel: [phone] [facility] No Information Sergei- 4201 6 Mehbod Amir. [facility], [address] [place] [address], [place], [place], [address] , [place]. tel: [phone] Referring Provider: Corona Pretty, [employer] [address] , [place], [address]. tel:[phone] Office/Outpa tient Visit,New, Mod [facility], [address], [place], [place], [address] , [place] tel:[phone] [facility] OverweightSpinal stenosis, lumbar region 201 6 Alexandro Paigecass. [facility], [address], [place], [place], [address] , [place]. tel:[phone] Referring Provider: Corona Pretty, [address], [place], [address]. tel:[phone] Family History Family Member Type Diagnosis Age At Onset No Information Payers Payer name Insurance type Covered democrat ID Valentin harrell(s) [employer] [facility] 2021 CI [id number] Social History Type Description Quantity Date Captured [...]
--- OUTSIDE RECORDS SUMMARY | 2023-10-13 07:54 | XMS_ITS | Encounter Summary ---
Author Name Unknown Organization [facility] Address [address] [place] [address] Care Team Providers Care Regulatory Consultant Name Role Phone Lina Meléndez MD Primary Care Provider [phone] Rhoda Sarabia I Unavailable Encounter Details Date [...] on filedocumented in this encounter Care Teams Regulatory Consultant Relationship Specialty Start Date End Date Lina Meléndez MD [facility] [address] [place] [address] PCP - General Internal Medicine 12/26/14 Rhoda Sarabia I [address] [place] [address] Shelter Case Manager Dietitian, Registered 02/20/20 documented as of this encounter
--- OUTSIDE RECORDS SUMMARY | 2023-10-13 07:54 | XMS_ITS | Clinical Summary ---
Author Name Unknown Organization [facility] Address [address] [place] [address] Care Team Providers Care Testing Engineer Name Role Phone Unavailable Primary Care Provider Unavailabl e Source Comments Patient records contain information from all sites at [facility]. For routine questions regarding patient records, call [phone] during business hours, M-F 8:00 AM - 5:00 PM Central Time. Record requests for emergency care only can be directed to [phone] at any time.[facility] Allergies Active Allergy Reactions Criticality Noted [...] Take 10 mg by mouth at bedtime. 05/23/2016 Active B complex-vitamin (SUPER B-50) capsule Take 1 capsule by mouth daily. Active cholecalciferol (VITAMIN D3) 1,000 Unit tablet Take 3,000 Units by mouth daily. Active clopidogrel (PLAVIX) 75 mg tablet Take 75 mg by mouth daily. 05/23/2016 Active diazePAM (VALIUM) 2 mg tablet Take 2 mg by mouth as needed. Very limited usage 12/08/2016 Active fluticasone (FLONASE) 50 mcg/actuation nasal spray Administer 2 sprays into affected nostril(s) at bedtime. Active BASAGLAR KWIKPEN U-100 INSULIN 100 unit/mL (3 mL) injection Inject as directed daily. 12/21/2017 Active magnesium oxide 400 mg capsule Take 4 tablets by mouth daily. 12/15/2015 Active metFORMIN (GLUCOPHAGE) 500 mg tablet Take 500 mg by mouth 2 (two) times a day. 01/31/2009 Active vit C/E/Zn/coppr/lutein /zeaxan (PRESERVISION AREDS-2 ORAL) Take 1 capsule by mouth daily. 01/31/2009 Active pantoprazole (PROTONIX) 40 mg EC tablet Take 40 mg by mouth daily. Active alendronate (FOSAMAX) 70 mg tablet 70 mg once a week. Every 7 days 12/20/2021 Active anastrozole (ARIMIDEX) 1 mg tablet Take 1 mg by mouth daily. 02/03/2022 Active Qvar RediHaler 80 mcg/actuation inhaler Inhale 2 puffs 2 (two) times a day. 01/18/2022 Active betamethasone dipropionate 0.05 % cream Apply 1 application topically 2 (two) times a day. 12/04/2019 Active albuterol 90 mcg/actuation inhaler Inhale 2-4 puffs as needed. 12/20/2021 Active clindamycin (CLEOCIN T) 1 % external solution Apply 1 application topically 2 (two) times a day. 12/20/2021 Active clobetasoL (TEMOVATE) 0.05 % ointment Apply 1 application topically 5 (five) times a week. 12/20/2021 Active clopidogreL (PLAVIX) 75 mg tablet Take 75 mg by mouth daily. 12/20/2021 Active diazePAM (VALIUM) 2 mg tablet Take 2 mg by mouth daily. As needed 12/20/2021 Active flash glucose scanning reader (FREESTYLE KYLIE) [facility] 12/31/2021 Active flash glucose sensor (FREESTYLE KYLIE) kit 12/31/2021 Active fluticasone propionate (FLONASE) 50 mcg/actuation nasal spray Administer 2 sprays into nostril(s) 2 (two) times a day. 12/20/2021 Active gabapentin (NEURONTIN) 300 mg capsule Take 300 mg by mouth at bedtime. 12/20/2021 Active insulin aspart U-100 (NovoLOG) 100 unit/mL injection .tidac 12/28/2021 Active omeprazole (PriLOSEC) [address] capsule Take 20 mg by mouth daily. 12/20/2021 Active magnesium oxide (MAG-OX) 400 mg (241.3 mg magnesium) tablet Take 600 mg by mouth daily. 400 in the AM, 200 in the PM 12/20/2021 Active ondansetron (ZOFRAN) 4 mg tablet Take 4 mg by mouth every 8 (eight) hours as needed. 07/10/2019 Active timolol (TIMOPTIC) 0.5 % ophthalmic solution Administer 1 drop into both eyes daily. 02/03/2022 Active zolpidem (AMBIEN) 5 mg tablet Take 5 mg by mouth at bedtime as needed. 11/21/2021 Active valACYclovir (VALTREX) 500 mg tablet Take 500 mg by mouth 2 (two) times a day. 12/06/2021 Active acetaminophen (TYLENOL) 500 mg tablet Take 1,000 mg by mouth. 07/16/2019 Active biotin 1 mg tablet Take 5,000 mg by mouth daily. Active coenzyme Q10 (CO Q-10) 10 mg capsule Take 10 mg by mouth daily. Active calcium carbonate-vitamin D3 625 mg (250 mg calcium)-3.125 mcg (125 Unit) per tablet Take 1 tablet by mouth daily with breakfast. Active calcium carbonate-vitamin D3 (Calcium 600 with Vitamin D3) 600 mg-10 mcg (400 unit) tablet,chewable Chew 600 mg daily. Active NIFEdipine XL (PROCARDIA XL) 30 mg [...] from 12/21/2021:Stage Unknown(pT1b, pNX, cM0, G2, ER+, CO+, HER2-, Oncotype DX score: 17) - Unsigned Hyponatremia 03/08/2021 Diabetes Mellitus Type 2 01/31/2009 Overview: DM II [Diabetes mellitus type II] Hypertension And Chronic Kidney Disease Stage 1 To 4 01/31/2009 Overview: Hypertension Encounters Date Type Department Care Team Description 09/11/2023 4:15 PM CDT External Outreach Division of Nephrology and Hypertension in [place], [place] [address] [place] [address] Joshua Lopez Jr., D.O. Hypertension And Chronic [...] How often do you attend chur or amish services? More than 4 times per year 02/12/2022 Do you belong to any clubs o r organizations such as anglican groups, unions, fraternal or athletic groups, or [...] medical care, and heating? Somewhat hard 02/12/2022 [facility] Occupat ional Health - Occupational Stress [...] slept in a senior care (including now)? No 02/12/2022 Nutrition Answer Date [...] 05/04/2023, Additional history exists DTaP,Tdap,and Td Vaccines (3 - Td or Tdap) 08/22/2024 08/22/2014, 01/22/2002, 01/22/2002 Office Visit for Blood Pressure Check / Re-check 09/10/2024 09/11/2023 Pneumococcal vaccine (65+ years) Completed 06/07/2018, 08/22/2014, 06/10/2010 Zoster Vaccines Completed 10/10/2018, 05/26, 03/11/2009 Mammogram Discontinued 12/21/2021, 10/24, 11/02/2021, Additional history exists Influenza Vaccine Completed 03/15/2023, , 03/31/2021, Additional history exists COVID-19 Vaccine Completed 03/29/2023, 08/2022, 03/10/2022, Additional history exists Colonoscopy Discontinued 08/04/2023 Colonoscopy Discontinued 08/04/2023 Colorectal Cancer Screening Discontinued Colorectal Cancer Surveillance Discontinued CT Colonography Discontinued CT Colonography Discontinued Cologuard Discontinued FIT Discontinued HPV Vaccines Aged Out No longer eligi ble based on patient's age to complete this topic Procedures Procedure Name Priority Date/Time Associated Diagnosis Comments EXTI SODIUM, S/P Routine 05/05/2023 8:55 AM ANTENNA RIGGER EXTI POTASSIUM, S/P Routine 05/05/2023 8 :55 AM ANTENNA RIGGER EXTI CREATININE WITH EGFR, S/P Routine 05/05/2023 8:55 AM ANTENNA RIGGER OUTSIDE MG MAMMOGRAM Routine 12/21/2021 10:00 AM CDT EXTI HEMOGLOBIN A1C, B Routine 12/18/2019 from Last 3 Months or Most Recently Relevant to Health Maintenance Results * MM needle loc RT-Outside Mammogram (12/21/2021 10:00 AM CDT) Narrative [facility] - 01/26/2022 2:52 PM CDT This order has been created and auto-finalized to support the import of outside images. If available, original interpretation can be found on the Media Tab in Chart Review, in Document Viewer, or as an image in QREADS. If a re-interpretation or overread is required please follow defined workflow. ?? Provider Not In System IMG BI PROCEDURES [facility] NA from Last 3 Months or Most Recently Relevant to Health Maintenance
--- OUTSIDE RECORDS SUMMARY | 2023-10-13 07:54 | XMS_ITS | Clinical Summary ---
Author Name Unknown Organization [facility] Address [address] [place] [id number] Care Team Providers Care Centerless Grinder Tender Name Role Phone Lina Meléndez MD Primary Care Provider DauphinRhoda I Unavailable Allergies Active Allergy Reactions Criticality [...] vial Inject 16 Units Subcutaneous every morning 11/05/2018 Active fluticasone (FLONASE) 50 MCG/ACT nasal spray [place] 2 sprays in nostril daily Active valACYclovir (VALTREX) 500 MG tablet Take 500 mg by mouth as needed Active eszopiclone (LUNESTA) 1 MG tablet Take 2 mg by mouth nightly as needed for sleep Active carvedilol (COREG) 6.25 MG tablet Take 6.25 mg by mouth 2 times daily (with meals) Active NIFEdipine ER OSMOTIC (PROCARDIA XL) 30 MG 24 hr tablet Take 30 mg by mouth daily Active clopidogrel (PLAVIX) 75 MG tablet Take 75 mg by mouth daily Active magnesium oxide 400 MG CAPS Take 1 capsule by mouth 2 times daily Active atorvastatin (LIPITOR) 10 MG tablet Take 10 mg by mouth at bedtime Active biotin 1000 MCG TABS tablet Take 5,000 mcg by mouth daily Active gabapentin (NEURONTIN) 300 MG capsule Take 600 mg by mouth at bedtime Active glucosamine-chondroi tin 500-400 MG CAPS per capsule Take 1 capsule by mouth daily Active albuterol (PROAIR HFA/PROVENTIL HFA/VENTOLIN HFA) 108 (90 Base) MCG/ACT inhaler Inhale 1-2 puffs into the lungs every 4 hours as needed 12/20/2021 Active beclomethasone HFA (QVAR REDIHALER) 80 MCG/ACT inhaler Inhale 2 puffs into the lungs 2 times daily 01/18/2022 Active calcium carbonate-vitamin D (CALTRATE) 600-10 MG-MCG per tablet Take 1 tablet by mouth daily Active acetaminophen (TYLENOL) 500 MG tablet Take 1,000 mg by mouth every 6 hours as needed for mild pain Active augmented betamethasone dipropionate (DIPROLENE-AF) 0.05 % external ointment Apply topically 2 times daily as needed Active folic acid (FOLVITE) 1 MG tablet Take 1 mg by mouth daily Active letrozole (FEMARA) 2.5 MG tablet Take 2.5 mg by mouth daily Active omeprazole (PRILOSEC) [address] capsule Take 20 mg by mouth daily Active senna-docusate (SENOKOT-S/PERICOLAC E) 8.6-50 MG tablet Take 1-4 tablets by mouth 2 times daily as needed for constipation Active insulin aspart (NOVOLOG PEN) 100 UNIT/ML pen Inject 4-9 Units Subcutaneous 3 times daily (with meals) Active oxyCODONE (ROXICODONE) 5 MG tabletIndications:He morrhoids, unspecified hemorrhoid type Take 1 tablet (5 mg) by mouth every 6 hours as needed for moderate to severe pain 12 tablet 08/04/2023 Active lidocaine (XYLOCAINE) 5 % external [...] by Conversion Osteoarthritis Overview: Created by Conversion [employer] [facility] Annotation: Dec 29 2006 3:46PM - Jojo Faustin: DJD Replacement Utility updated for latest IMO load Lower Back Pain Overview: Created by [employer] [facility] Annotation: Dec 29 2006 3:46PM - Jojo Faustin: MRI: small L5-S1 disc, degenerative changes, narrowing of bilateral neuroforamina L5-S1 and mass effect on both L5 nerves Stress Incontinence Overview: Created by Conversion Encounters Date Type Department Care Team Description 08/04/2023 7:38 AM PRIOR AUTHORIZATION NURSE Anesthesia Event [facility] [address] [place] [address] Marlon Rueda DO 08/04/2023 7:30 AM PRIOR AUTHORIZATION NURSE - 08/04/2023 9:10 AM PRIOR AUTHORIZATION NURSE Surgery [facility] [address] [place] [address] Ever Zee MD INTAROPERATIVE Colonoscopy 08/04/2023 5:28 AM PRIOR AUTHORIZATION NURSE - 08/04/2023 11:05 AM PRIOR AUTHORIZATION NURSE Hospital Encounter [facility] PreOP/PostOP [address] [place] [id number] Ever Zee MD Hemorrhoids, unspecified hemorrhoid type [...] Comments Blood Pressure 153/88 08/04/2023 11:00 AM PRIOR AUTHORIZATION NURSE Pulse 79 08/04/2023 11:00 AM PRIOR AUTHORIZATION NURSE Temperature 36.1 ??C (97 ??F) 08/04/2023 11:00 AM PRIOR AUTHORIZATION NURSE Respiratory Rate 18 08/04/2023 11:00 AM PRIOR AUTHORIZATION NURSE Oxygen Saturation 100% 08/04/2023 11:00 AM PRIOR AUTHORIZATION NURSE Inhaled Oxygen Concentration - - Weight 70.9 kg (156 lb 4.8 oz) 08/04/2023 6:02 A M PRIOR AUTHORIZATION NURSE Height 165.1 cm (5' 5) 07/26/2023 1:00 PM PRIOR AUTHORIZATION NURSE Body Mass Index 26.01 07/26/2023 1:00 PM PRIOR AUTHORIZATION NURSE Plan of Treatment Health Maintenance Due Date [...] GLUCOSE BY METER Routine 08/04/2023 9:05 AM PRIOR AUTHORIZATION NURSE SURGICAL PATHOLOGY EXAM Routine 08/04/2023 8:19 AM PRIOR AUTHORIZATION NURSE HEMORRHOIDECTOMY, INTERNAL 08/04/2023 7:38 AM PRIOR AUTHORIZATION NURSE Prolapsed internal hemorrhoids, grade 3 Screen for colon cancer COLONOSCOPY 08/04/2023 7:38 AM PRIOR AUTHORIZATION NURSE Prolapsed internal hemorrhoids, grade 3 Screen for colon cancer COLONOSCOPY Routine 08/04/2023 7:25 AM PRIOR AUTHORIZATION NURSE GLUCOSE BY METER Routine 08/04/2023 6:50 AM PRIOR AUTHORIZATION NURSE LAB RESULT - HIM SCAN 07/25/2023 12:00 AM PRIOR AUTHORIZATION NURSE EKG CARDIAC - HIM SCAN 07/25/2023 12:00 AM PRIOR AUTHORIZATION NURSE LIPID PROFILE Routine 12/18/2019 HEMOGLOBIN A1C Routine 12/18/2019 from Last 3 Months or Most Recently Relevant to Health Maintenance Results * (ABNORMAL) Glucose by meter (08/04/2023 9:05 AM PRIOR AUTHORIZATION NURSE) Only the most recent of2 resultswithin the time period is included. GLUCOSE BY METER POCT 180(H) 70 - 99 mg/dL 08/04/2023 9:13 AM PRIOR AUTHORIZATION NURSE LABORATORY POC Blood, Capillary BLOOD SPECIMEN / Unknown 08/04/2023 9:05 AM PRIOR AUTHORIZATION NURSE 08/04/2023 9:13 AM PRIOR AUTHORIZATION NURSE Ever Zee MD [facility] Acute Care Lab [address] [facility] Lab (1st floor, no room number) [place] [address], [facility] [phone] * Surgical Pathology Exam (08/04/2023 8:19 AM PRIOR AUTHORIZATION NURSE) Case Report Surgical Pathology Report ? Case: [id number] ? Authorizing Provider: ??Ever Zee MD ?? Collected: ? 08/04/2023 08:19 AM ? Ordering Location: ? [facility] ?? Received: ?08/04/2023 08:44 AM ? Main OR ? Pathologist: ? Mario Boo MD ? Specimen: ?Rectum, Right posterior hemorroid ? 08/07/2023 1:17 PM [facility] Final Diagnosis A(1). Anal/Rectal mucosa and soft tissue, Right posterior, excision: - Polypoid colonic mucosa with prominent underlying blood vessels consistent with hemorrhoidal tissue. - Negative for dysplasia or malignancy. 08/07/2023 1:17 PM [facility] Clinical Information Procedure: INTAROPERATIVE Colonoscopy WITH EXAM UNDER ANESTHESIA OF RECTUM WITH HEMORROIDECTOMY Pre-op Diagnosis: Prolapsed internal hemorrhoids, grade 3 [K64.2] Screen for colon cancer [Z12.11] Post-op Diagnosis: K64.2 - Prolapsed internal hemorrhoids, grade 3 [ICD-10-CM] Z12.11 - Screen for colon cancer [ICD-10-CM] 08/07/2023 1:17 PM [facility] Gross Description A(1). Rectum, Right posterior [...] specimen (MARTIR Jones (ASCP) 08/07/2023 1:17 PM [facility] Microscopic Description Microscopic examination was performed. 08/07/2023 1:17 PM [facility] Performing Labs The technical component of this testing was completed at [facility] 08/07/2023 1:17 PM [facility] Case Images 08/07/2023 1:17 PM [facility] Tissue RECTUM PART / Unknown 08/04/2023 8:19 AM PRIOR AUTHORIZATION NURSE 08/04/2023 8:44 AM PRIOR AUTHORIZATION NURSE Ever [facility] Acute Care Lab [address] Lab (1st floor, no room number) [place] [address], [facility] [phone] * COLONOSCOPY (08/04/2023 7:25 AM PRIOR AUTHORIZATION NURSE) COLONOSCOPY [facility] Patient Name: Maryam Cortez ?Procedure Date: [...] ?Olympus, Pediatric Colonoscope, Model # [id number]-H190DL, ?Censitrac #[id number] was introduced through the ?anus with the [...] criteria for high risk CPT copyright 2021 [employer]. All rights reserved. The codes documented in this report are preliminary and upon medical insurance coder review may be revised to meet current compliance requirements. EVER ZEE MD 08/04/2023 8:47:30 AM I was physically present for the entire viewing portion of the exam. EVER ZEE MD Number of Addenda: 0 Note Initiated On: 08/04/2023 7:25 AM MRN: ?[id number] Procedure Date: ? 08/04/2023 7:25:15 AM Total Procedure Duration: 0 hours 3 minutes 40 seconds Estimated Blood Loss: ? Scope In: 7:47:47 AM Scope Out: 7:51:27 AM RADIOLOGY RESULTS 08/04/2023 7:25 AM PRIOR AUTHORIZATION NURSE Ever Zee MD PROCEDURES Performing Organization Address City/[facility] Co de Phone Number RADIOLOGY RESULTS * LAB RESULT - HIM SCAN (07/25/2023 12:00 AM PRIOR AUTHORIZATION NURSE) 07/25/2023 Provider Outside NON-BEAKER LAB TE STING * EKG CARDIAC - HIM SCAN (07/25/2023 12:00 AM PRIOR AUTHORIZATION NURSE) 07/25/2023 Provider Outside ECG ORDERABLES * Lipid Profile (12/18/2019) Cholesterol 154 90 - 200 mg/dL [facility] Triglycerides 53 40 - 197 mg/dL [facility] HDL Cholesterol 106 >=50 mg/dL [facility] LDL Cholesterol Calculated 37 <100 mg/dL [facility] Blood specimen (specimen) 12/18/[address] [facility] - 12/18/2019 LAB RESULTS FRIENDSHIP Patient Reported LAB - BLOOD ORDERABL ES Performing Organization Address [facility] Co de Phone Number [facility] [address] [phone] * (ABNORMAL) Hemoglobin A1c (12/18/2019) Hemoglobin A1C 7.3(A) <=6.9 % [facility] Blood specimen (specimen) 12/18/[address] [facility] - 12/18/2019 LAB RESULTS FRIENDSHIP Provider Outside LAB - BLOOD ORDERABL ES Performing Organization Address City/[facility] Co de Phone Number [facility] [address] [place] [address], [facility] [phone] from Last 3 Months or Most Recently Relevant to Health Maintenance Care Teams Centerless Grinder Tender Relationship Specialty Start Date End Date Lina Meléndez MD [facility] & [facility] [address] [place] [address] PCP - General Internal Medicine 12/26/14 Rhoda Sarabia I [address] [place] [id number] Paperback Machine Operator Dietitian, Registered 02/20/20
--- OUTSIDE RECORDS SUMMARY | 2023-10-13 07:54 | XMS_ITS | Encounter Summary ---
Author Name Unknown Organization [facility] Address [address] [facility] [place] [address] Care Team Providers Care Internet Marketing Analyst Name Role Phone Lina Meléndez MD Primary Care Provider Rhoda Sarabia I Unavailable Reason for Visit * Auth/Cert (Routine) Specialty Diagnoses / Procedures Referred By Caroline clement Referred To Contact Surgery Diagnoses Prolapsed internal hemorrhoids, grade 3 Screen for colon cancer Prolapsed internal hemorrhoids, grade 3 [K64.2] Screen for colon cancer [Z12.11] Procedures SD COLONOSCOPY W/WO BRUSH/WASH SD HEMORRHOIDECTOMY W BANDING/LIGATION SD LIGATION INTERNAL HEMORRHOID, SINGLE, W/O IMAGING SD LIGATION INTERNAL HEMORRHOID, 2 OR MORE, W/O IMAGING INTAROPERATIVE Colonoscopy WITH EXAM UNDER ANESTHESIA OF RECTUM WITH HEMORROIDECTOMY [facility] [address] [place] [address] Referral ID Status Reason Start Date Expiration Date Visits Re quested Visits Authorized [id number] 1 1 Encounter Details Date Type Department Care Team (Late st Contact Info) Description 08/04/2023 7:38 AM WEB CONTENT EXECUTIVE Anesthesia Event [facility] [address] [place] [address] Marlon Rueda, DO [facility] ANESTHESIA [id number] [place], [place] [id number] Anesthesia Record Procedure Summary Procedure Name Responsible Anesthesiologist Anesthesia Start Time Anesthesia Stop Time INTAROPERATIVE Colonoscopy (Rectum) Marybeth Marlon [place], DO 08/04/23 0738 08/04/23 0843 Events Date Time Event Comment 08/04/2023 0642 0713 FORENSIC ECONOMIST Ready for Procedure 0738 An Start 0738 [...] Stop Electronically signed by Toño Zuniga APRN FORENSIC ECONOMIST on August 04, 2023 8:43 AM Meds [...] Rueda DO August 04, 2023 9:36 AM CONTENT EXECUTIVE * Anesthesia Postprocedure Evaluation - Marlon Rueda [...] Rueda DO August 04, 2023 9:36 AM CONTENT EXECUTIVE * Anesthesia Preprocedure Evaluation - Marlon Rueda [...] STEROID INJECTION 08/18/2006 SHOULDER SURGERY Left Repaired [facility] CERV SPINE FUSN,ANTER,BELOW C2 Description: Cervical Vertebral Fusion; Recorded: 12/29/2006; [facility] TOTAL ABDOM HYSTERECTOMY Description: Hysterectomy; Recorded: 01/16/2008; Comments: partial, has R ovary [facility] TOTAL KNEE ARTHROPLASTY Description: Total Knee [...] and realistic alternatives discussed. Questions answered and patient/service support representative(s) expressed understanding. - Discussed: - Discussed [...] encounter: 70.9 kg (156 lb 4.8 oz). CONTENT EXECUTIVE documented in this encounter Miscellaneous Notes * [...] APRN CRNA August 04, 2023 8:43 AM CONTENT EXECUTIVE documented in this encounter Plan of Treatment [...] 0744, Anesthesia Intra-op $Given 08/04/2023 7:57 AM WEB CONTENT EXECUTIVE 25 mcg $Given 08/04/2023 7:44 AM WEB CONTENT EXECUTIVE 25 mcg glycopyrrolate (ROBINUL) injection Intravenous, PRN, Administer over 1-2 Minutes, Starting on Mon08/04/23 at 0744, Anesthesia Intra-op $Given 08/04/2023 7:44 AM WEB CONTENT EXECUTIVE 0.2 mg lactated ringers infusion at 10 mL/hr, Intravenous, CONTINUOUS, IF patient NOT on dialysis., Pre-procedure, Starting on Mon08/04/23 at 0600, Until Mon08/04/23 at 0840 Restarted 08/04/2023 7:38 AM WEB CONTENT EXECUTIVE $New Bag 08/04/2023 6:52 AM WEB CONTENT EXECUTIVE 10 mL/hr lidocaine 2% injection (MDV) Intravenous, PRN, Starting on Mon08/04/23 at 0740, Anesthesia Intra-op $Given 08/04/2023 7:40 AM WEB CONTENT EXECUTIVE 15 mg ondansetron (ZOFRAN) injection Intravenous, PRN, Administer over 2-5 Minutes, Starting on Mon08/04/23 at 0809, Anesthesia Intra-op $Given 08/04/2023 8:09 AM WEB CONTENT EXECUTIVE 4 mg phenylephrine (ANYA-SYNEPHRINE) injection Intravenous, CONTINUOUS PRN, Starting on Mon08/04/23 at 0817, Anesthesia Intra-op $Bolus 08/04/2023 8:22 AM WEB CONTENT EXECUTIVE 100 mcg $New Bag 08/04/2023 8:17 AM WEB CONTENT EXECUTIVE 100 mcg propofol (DIPRIVAN) infusion Intravenous, CONTINUOUS PRN, Starting on Mon08/04/23 at 0741, Anesthesia Intra-op Rate/Dose Change 08/04/2023 8:16 AM WEB CONTENT EXECUTIVE 70 mcg/kg/min 29.82 mL/hr Rate/Dose Change 08/04/2023 8:13 AM WEB CONTENT EXECUTIVE 80 mcg/kg/min 34.0 8 mL/hr Rate/Dose Change 08/04/2023 7:48 AM WEB CONTENT EXECUTIVE 100 mcg/kg/min 42. 6 mL/hr propofol (DIPRIVAN) injection 10 mg/mL vial Intravenous, PRN, Starting on Mon08/04/23 at 0758, Anesthesia Intra-op $Given 08/04/2023 7:58 AM WEB CONTENT EXECUTIVE 25 mg $Given 08/04/2023 7:44 AM WEB CONTENT EXECUTIVE 25 mg documented in this encounter Care Teams Internet Marketing Analyst Relationship Specialty Start Date End Date Lina Meléndez MD [facility] & [address] [address] PCP - General Internal Medicine 12/26/14 Rhoda Sarabia I [address] [place] [id number] Warehouse Foreman Dietitian, Registered 02/20/20 documented as of this encounter
--- OUTSIDE RECORDS SUMMARY | 2023-10-13 07:54 | XMS_ITS | Referral Summary ---
Author Name Unknown Organization [facility] Address [address] [place] [address] Care Team Providers Care Vice President Of Contracts Name Role Phone Lina Meléndez MD Primary Care Provider [phone] Rhoda Sarabia I Unavailable Encounters Date Type Department Care Team Description 08/04/2023 7:38 AM UPHOLSTERER LIMOUSINE AND HEARSE Anesthesia Event [facility] PeriOp Services [address] [place] [address] Marlon Rueda, DO 08/04/2023 Travel 08/04/2023 7:30 AM UPHOLSTERER LIMOUSINE AND HEARSE - 08/04/2023 9:10 AM UPHOLSTERER LIMOUSINE AND HEARSE Surgery [facility] PeriOp Services [address] [place] [address] Ever Zee MD INTAROPERATIVE Colonoscopy 08/04/2023 5:28 AM UPHOLSTERER LIMOUSINE AND HEARSE - 08/04/2023 11:05 AM UPHOLSTERER LIMOUSINE AND HEARSE Hospital Encounter [facility] PreOP/PostOP [address] [place] [address] Ever Zee MD Hemorrhoids, unspecified hemorrhoid type [...] Active fluticasone (FLONASE) 50 MCG/ACT nasal spray [place] 2 sprays in nostril daily Active valACYclovir [...] by Conversion Osteoarthritis Overview: Created by Conversion [facility] Annotation: Dec 29 2006 3:46PM - Jojo Faustin: DJD Replacement Utility updated for latest IMO load Lower Back Pain Overview: Created by Conversion [facility] Annotation: Dec 29 2006 3:46PM - Jojo [...] Comments Blood Pressure 153/88 08/04/2023 11:00 AM UPHOLSTERER LIMOUSINE AND HEARSE Pulse 79 08/04/2023 11:00 AM UPHOLSTERER LIMOUSINE AND HEARSE Temperature 36.1 ??C (97 ??F) 08/04/2023 11:00 AM UPHOLSTERER LIMOUSINE AND HEARSE Respiratory Rate 18 08/04/2023 11:00 AM UPHOLSTERER LIMOUSINE AND HEARSE Oxygen Saturation 100% 08/04/2023 11:00 AM UPHOLSTERER LIMOUSINE AND HEARSE Inhaled Oxygen Concentration - - Weight 70.9 kg (156 lb 4.8 oz) 08/04/2023 6:02 A M UPHOLSTERER LIMOUSINE AND HEARSE Height 165.1 cm (5' 5) 07/26/2023 1:00 PM UPHOLSTERER LIMOUSINE AND HEARSE Body Mass Index 26.01 07/26/2023 1:00 PM UPHOLSTERER LIMOUSINE AND HEARSE Plan of Treatment Not on file Procedures Procedure Name Priority Date/Time Associated Diagnosis Comments GLUCOSE BY METER Routine 08/04/2023 9:05 AM UPHOLSTERER LIMOUSINE AND HEARSE SURGICAL PATHOLOGY EXAM Routine 08/04/2023 8:19 AM UPHOLSTERER LIMOUSINE AND HEARSE HEMORRHOIDECTOMY, INTERNAL 08/04/2023 7:38 AM UPHOLSTERER LIMOUSINE AND HEARSE Prolapsed internal hemorrhoids, grade 3 Screen for colon cancer COLONOSCOPY 08/04/2023 7:38 AM UPHOLSTERER LIMOUSINE AND HEARSE Prolapsed internal hemorrhoids, grade 3 Screen for colon cancer COLONOSCOPY Routine 08/04/2023 7:25 AM UPHOLSTERER LIMOUSINE AND HEARSE GLUCOSE BY METER Routine 08/04/2023 6:50 AM UPHOLSTERER LIMOUSINE AND HEARSE LAB RESULT - HIM SCAN 07/25/2023 12:00 AM UPHOLSTERER LIMOUSINE AND HEARSE EKG CARDIAC - HIM SCAN 07/25/2023 12:00 AM UPHOLSTERER LIMOUSINE AND HEARSE LIPID PROFILE Routine 12/18/2019 HEMOGLOBIN A1C Routine 12/18/2019 from Last 3 Months or Most Recently Relevant to Health Maintenance Results * (ABNORMAL) Glucose by meter (08/04/2023 9:05 AM UPHOLSTERER LIMOUSINE AND HEARSE) Only the most recent of2 resultswithin the time period is included. GLUCOSE BY METER POCT 180(H) 70 - 99 mg/dL 08/04/2023 9:13 AM UPHOLSTERER LIMOUSINE AND HEARSE [facility] POC Blood, Capillary BLOOD SPECIMEN / Unknown 08/04/2023 9:05 AM UPHOLSTERER LIMOUSINE AND HEARSE 08/04/2023 9:13 AM UPHOLSTERER LIMOUSINE AND HEARSE Ever [facility] PO[facility] Performing Organization Address City/State/[facility] Co de Phone Number [facility] LAB[facility]AT[facility] Acute Care Lab [address] Lab (1st floor, no room number) [place] [address], [facility] [phone] * Surgical Pathology Exam (08/04/2023 8:19 AM UPHOLSTERER LIMOUSINE AND HEARSE) Case Report Surgical Pathology Report ? Case: [id number] ? Authorizing Provider: ??Ever Zee MD ?? Collected: ? 08/04/2023 08:19 AM ? Ordering Location: ? [facility] ?? Received: ?08/04/2023 08:44 AM ? Main OR ? Pathologist: ? Mario Boo MD ? Specimen: ?Rectum, Right posterior hemorroid ? 08/07/2023 1:17 PM [facility] Final Diagnosis A(1). Anal/Rectal mucosa and soft tissue, Right posterior, excision: - Polypoid colonic mucosa with prominent underlying blood vessels consistent with hemorrhoidal tissue. - Negative for dysplasia or malignancy. 08/07/2023 1:17 PM [facility] Clinical Information Procedure: INTAROPERATIVE Colonoscopy WITH EXAM UNDER ANESTHESIA OF RECTUM WITH HEMORROIDECTOMY Pre-op Diagnosis: Prolapsed internal hemorrhoids, grade 3 [K64.2] Screen for colon cancer [Z12.11] Post-op Diagnosis: K64.2 - Prolapsed internal hemorrhoids, grade 3 [ICD-10-CM] Z12.11 - Screen for colon cancer [ICD-10-CM] 08/07/2023 1:17 PM [facility] Gross Description A(1). Rectum, Right posterior [...] unoriented end of specimen (Tracie MARTIR Betancourt ([facility]) 08/07/2023 1:17 PM [facility] Microscopic Description Microscopic examination was performed. 08/07/2023 1:17 PM [facility] Performing Labs The technical component of this testing was completed at [facility] 08/07/2023 1:17 PM [facility] Case Images 08/07/2023 1:17 PM [facility] Tissue RECTUM PART / Unknown 08/04/2023 8:19 AM UPHOLSTERER LIMOUSINE AND HEARSE 08/04/2023 8:44 AM UPHOLSTERER LIMOUSINE AND HEARSE Ever [facility] Acute Care Lab [address] Lab (1st floor, no room number) [place] [address], [facility] [phone] * COLONOSCOPY (08/04/2023 7:25 AM UPHOLSTERER LIMOUSINE AND HEARSE) COLONOSCOPY [facility] Patient Name: Maryam Cortez ?Procedure [...] ?Olympus, Pediatric Colonoscope, Model # PCF-H190DL, ?Censitrac #[id number] was introduced through the ?anus with the [...] criteria for high risk CPT copyright 2021 [employer]. All rights reserved. The codes documented in this report are preliminary and upon dishwashing machine operator review may be revised to meet current compliance requirements. EVER ZEE MD 08/04/2023 8:47:30 AM I was physically present for the entire viewing portion of the exam. EVER ZEE MD Number of Addenda: 0 Note Initiated On: 08/04/2023 7:25 AM MRN: ?[id number] Procedure Date: ? 08/04/2023 7:25:15 AM Total Procedure Duration: 0 hours 3 minutes 40 seconds Estimated Blood Loss: ? Scope In: 7:47:47 AM Scope Out: 7:51:27 AM RADIOLOGY RESULTS 08/04/2023 7:25 AM UPHOLSTERER LIMOUSINE AND HEARSE Ever Zee MD PROCEDURES RADIOLOGY RESULTS * LAB RESULT - HIM SCAN (07/25/2023 12:00 AM UPHOLSTERER LIMOUSINE AND HEARSE) 07/25/2023 Provider Outside NON-BEAKER LAB TE STING * EKG CARDIAC - HIM SCAN (07/25/2023 12:00 AM UPHOLSTERER LIMOUSINE AND HEARSE) 07/25/2023 Provider Outside ECG ORDERABLES * Lipid Profile (12/18/2019) Cholesterol 154 90 - 200 mg/dL [facility] Triglycerides 53 40 - 197 mg/dL [facility] HDL Cholesterol 106 >=50 mg/dL [facility] LDL Cholesterol Calculated 37 <100 mg/dL [facility] Blood specimen (specimen) 12/18/2019 Narrative [facility] - 12/18/2019 LAB RESULTS [place] Patient Reported LAB - BLOOD ORDERABL ES Performing Organization Address City/[facility]/ZIP Co de Phone Number [facility] [address] [place] [address], [facility] [phone] * (ABNORMAL) Hemoglobin A1c (12/18/2019) Hemoglobin A1C 7.3(A) <=6.9 % [facility] Blood specimen (specimen) 12/18/2019 Narrative [facility] - 12/18/2019 LAB RESULTS [place] Provider Outside LAB - BLOOD ORDERABL ES [facility] [address] [place] [address], [facility] [phone] from Last 3 Months or Most Recently Relevant to Health Maintenance Care Teams Vice President Of Contracts Relationship Specialty Start Date End Date Lina Meléndez MD [facility] [place] [address] [place] [address] PCP - General Internal Medicine 12/26/14 Rhoda Sarabia I [address] [place] [address] Yarn Tester Dietitian, Registered 02/20/20
--- OUTSIDE RECORDS SUMMARY | 2023-10-13 07:54 | XMS_ITS | Encounter Summary ---
Author Name Unknown Organization [facility] Address [address] [place] [address] Care Team Providers Care Popped Corn Oven Attendant Name Role Phone Lina Meléndez MD Primary Care Provider [phone] Faulkner, Dojessie Shivani Unavailable Reason for Visit * Auth/Cert (Routine) Specialty Diagnoses / Procedures Referred By Caroline clement Referred To Contact Surgery Diagnoses Prolapsed internal hemorrhoids, grade 3 Screen for colon cancer Prolapsed internal hemorrhoids, grade 3 [K64.2] Screen for colon cancer [Z12.11] Procedures CA COLONOSCOPY W/WO BRUSH/WASH CA HEMORRHOIDECTOMY W BANDING/LIGATION CA LIGATION INTERNAL HEMORRHOID, SINGLE, W/O IMAGING CA LIGATION INTERNAL HEMORRHOID, 2 OR MORE, W/O IMAGING INTAROPERATIVE Colonoscopy WITH EXAM UNDER ANESTHESIA OF RECTUM WITH HEMORROIDECTOMY Periop Services [address] [place] [address] Referral ID Status Reason Start Date Expiration Date Visits Re quested Visits Authorized [id number] 1 1 Encounter Details Date Type Department Care Team (Late st Contact Info) Description 08/04/2023 7:30 AM INSOLE REINFORCER - 08/04/2023 9:10 AM INSOLE REINFORCER Surgery [facility] PeriOp Services [address] [place] [address] Ever Zee MD [facility] [address] [id number] INTAROPERATIVE Colonoscopy Surgery Details Date/Time Status Location OR Service Patient Class Case Class Case Type Trauma Case? 08/04/23 7:30 AM Posted [facility] OR OR 03 Brave-Rectal Same Day Surgery Elective Panel 1 Procedure LRB Anes Op Region Wound Class Comments INTAROPERATIVE Colonoscopy N/A MAC Rectum II- Clean Contaminated WITH EXAM UNDER ANESTHESIA O F RECTUM WITH HEMORROIDECTOMY N/A MAC Rectum II-Clean Cont aminated Surgeon Surgeon Role Service Panel Ever Zee MD Primary Brave-Rectal 1 documented in this encounter Social History [...] Comments Blood Pressure 135/83 08/04/2023 8:55 AM INSOLE REINFORCER Pulse 86 08/04/2023 9:10 AM INSOLE REINFORCER Temperature 36.2 ??C (97.2 ??F) 08/04/2023 8:42 AM CS T Respiratory Rate 16 08/04/2023 6:02 AM INSOLE REINFORCER Oxygen Saturation 100% 08/04/2023 9:10 AM INSOLE REINFORCER Inhaled Oxygen Concentration - - Weight 70.9 kg (156 lb 4.8 oz) 08/04/2023 6:02 A M INSOLE REINFORCER Height 165.1 cm (5' 5) 07/26/2023 1:00 PM INSOLE REINFORCER Body Mass Index 26.01 07/26/2023 1:00 PM INSOLE REINFORCER documented in this encounter Discharge Instructions * Discharge Instructions* Jorje Kendall RN - 08/04/2023 6:57 AM INSOLE REINFORCER Maximum acetaminophen (Tylenol) dose from all sources should not exceed 4 grams (4000 mg) per day. You last had 975 mg at 6:56 AM; do not take Tylenol products again until after 12:[address] VIV[facility] M[facility]IN[facility] PHONE NUMBER: [phone] [facility] LE REINFORCER * Attachments The following attachments cannot be sent through Care Everywhere. * (s) After Anesthesia (Sleep Medicine) (Filipino) documented in this encounter Medications at Time of Discharge Medication Sig Dispensed Refills Start Date End Date acetaminophen (TYLENOL) 500 MG tablet Take 1,000 mg by mouth every 6 hours as needed for mild pain albuterol (PROAIR HFA/PROVENTIL HFA/VENTOLIN HFA) 108 (90 Base) MCG/ACT inhaler Inhale 1-2 puffs into the lungs every 4 hours as needed 12/20/2021 atorvastatin (LIPITOR) 10 MG tablet Take 10 mg by mouth at bedtime augmented betamethasone dipropionate (DIPROLENE-AF) 0.05 % external ointment Apply topically 2 times daily as needed beclomethasone HFA (QVAR REDIHALER) 80 MCG/ACT inhaler Inhale 2 puffs into the lungs 2 times daily 01/18/2022 biotin 1000 MCG TABS tablet Take 5,000 mcg by mouth daily calcium carbonate-vitamin D (CALTRATE) 600-10 MG-MCG per tablet Take 1 tablet by mouth daily carvedilol (COREG) 6.25 MG tablet Take 6.25 mg by mouth 2 times daily (with meals) clopidogrel (PLAVIX) 75 MG tablet Take 75 mg by mouth daily eszopiclone (LUNESTA) 1 MG tablet Take 2 mg by mouth nightly as needed for sleep fluticasone (FLONASE) 50 MCG/ACT nasal spray [place] 2 sprays in nostril daily folic acid (FOLVITE) 1 MG tablet Take 1 mg by mouth daily gabapentin (NEURONTIN) 300 MG capsule Take 600 mg by mouth at bedtime glucosamine-chondroitin 500-400 MG CAPS per capsule Take 1 capsule by mouth daily insulin aspart (NOVOLOG PEN) 100 UNIT/ML pen Inject 4-9 Units Subcutaneous 3 times daily (with meals) insulin glargine (LANTUS VIAL) 100 UNIT/ML vial Inject 16 Units Subcutaneous every morning 11/05/2018 lidocaine (XYLOCAINE) 5 % external ointmentIndications:Hem orrhoids, unspecified hemorrhoid type Apply topically as needed for moderate pain Apply a pea sized amount to the perianal skin four times daily as needed for pain. 30 g 3 08/04/2023 magnesium oxide 400 MG CAPS Take 1 capsule by mouth 2 times daily NIFEdipine ER OSMOTIC (PROCARDIA XL) 30 MG 24 hr tablet Take 30 mg by mouth daily omeprazole (PRILOSEC) [address] capsule Take 20 mg by mouth daily oxyCODONE (ROXICODONE) 5 MG tabletIndications:Hemor rhoids, unspecified hemorrhoid type Take 1 tablet (5 mg) by mouth every 6 hours as needed for moderate to severe pain 12 tablet 08/04/2023 valACYclovir (VALTREX) 500 MG tablet Take 500 mg by mouth as needed letrozole (FEMARA) 2.5 MG tablet Take 2.5 mg by mouth daily senna-docusate (SENOKOT-S/PERICOLACE) 8.6-50 MG tablet Take 1-4 tablets by mouth 2 times daily as needed for constipation documented as of this encounter Progress Notes * Libby Jaime RN - 08/04/2023 5:50 AM CST Patient had Medtronic bladder stimulator. Patient reported pre operatively that she left the remote home. Patient has brief on. Libby Jaime RN on 08/04/2023 at 5:51 AM LE REINFORCER documented in this encounter Miscellaneous Notes * Brief Op Note - Ever Zee MD - 08/04/2023 8:48 AM CST [facility] Brief Operative Note Pre-operative diagnosis: [...] Implants: * No implants in log * LE REINFORCER * Op Note - Ever Zee MD [...] SPECIMEN: right posterior hemorrhoid. Kiera Zee MD LE REINFORCER documented in this encounter Plan of Treatment Not on file documented as of this encounter Procedures Procedure Name Priority Date/Time Associated Diagnosis Comments GLUCOSE BY METER Routine 08/04/2023 9:05 AM INSOLE REINFORCER SURGICAL PATHOLOGY EXAM Routine 08/04/2023 8:19 AM INSOLE REINFORCER HEMORRHOIDECTOMY, INTERNAL 08/04/2023 7:38 AM INSOLE REINFORCER Prolapsed internal hemorrhoids, grade 3 Screen for colon cancer COLONOSCOPY 08/04/2023 7:38 AM INSOLE REINFORCER Prolapsed internal hemorrhoids, grade 3 Screen for colon cancer COLONOSCOPY Routine 08/04/2023 7:25 AM INSOLE REINFORCER GLUCOSE BY METER Routine 08/04/2023 6:50 AM INSOLE REINFORCER LAB RESULT - HIM SCAN 07/25/2023 12:00 AM INSOLE REINFORCER EKG CARDIAC - HIM SCAN 07/25/2023 12:00 AM INSOLE REINFORCER documented in this encounter Results * (ABNORMAL) Glucose by meter (08/04/2023 9:05 AM INSOLE REINFORCER) GLUCOSE BY METER POCT 180(H) 70 - 99 mg/dL 08/04/2023 9:13 AM INSOLE REINFORCER LABORATORY POC Blood, Capillary BLOOD SPECIMEN / Unknown 08/04/2023 9:05 AM INSOLE REINFORCER 08/04/2023 9:13 AM INSOLE REINFORCER Ever Zee MD [facility] Acute Care Lab [address] [facility] Lab (1st floor, no room number) [place] [address], [facility] [phone] * Surgical Pathology Exam (08/04/2023 8:19 AM INSOLE REINFORCER) Case Report Surgical Pathology Report ? Case: [id number] ? Authorizing Provider: ??Ever Zee MD ?? Collected: ? 08/04/2023 08:19 AM ? Ordering Location: ? [facility] ?? Received: ?08/04/2023 08:44 AM ? Main OR ? Pathologist: ? Mario Boo MD ? Specimen: ?Rectum, Right posterior hemorroid ? 08/07/2023 1:17 PM [facility] LABORATORY Final Diagnosis A(1). Anal/Rectal mucosa and soft tissue, Right posterior, excision: - Polypoid colonic mucosa with prominent underlying blood vessels consistent with hemorrhoidal tissue. - Negative for dysplasia or malignancy. 08/07/2023 1:17 PM [facility] Clinical Information Procedure: INTAROPERATIVE Colonoscopy WITH EXAM UNDER ANESTHESIA OF RECTUM WITH HEMORROIDECTOMY Pre-op Diagnosis: Prolapsed internal hemorrhoids, grade 3 [K64.2] Screen for colon cancer [Z12.11] Post-op Diagnosis: K64.2 - Prolapsed internal hemorrhoids, grade 3 [ICD-10-CM] Z12.11 - Screen for colon cancer [ICD-10-CM] 08/07/2023 1:17 PM [facility] Gross Description A(1). Rectum, [...] specimen (MARTIR Jones (ASCP) 08/07/2023 1:17 PM INSOLE REINFORCER LABORATORY Microscopic Description Microscopic examination was performed. 08/07/2023 1:17 PM [facility] Performing Labs The technical component of this testing was completed at [facility] 08/07/2023 1:17 PM [facility] Case Images 08/07/2023 1:17 PM [facility] Tissue RECTUM PART / Unknown 08/04/2023 8:19 AM INSOLE REINFORCER 08/04/2023 8:44 AM INSOLE REINFORCER Ever Zee MD [facility] Acute Care Lab [address] [facility] Lab (1st floor, no room number) [place] [address] [phone] * COLONOSCOPY (08/04/2023 7:25 AM INSOLE REINFORCER) COLONOSCOPY [facility] Patient Name: Maryam Cortez ?Procedure [...] ?Olympus, Pediatric Colonoscope, Model # [id number]-H190DL, ?Censitrac #[id number] was introduced through the ?anus with the [...] this report are preliminary and upon medical biller coder review may be revised to meet current compliance requirements. EVER ZEE MD 08/04/2023 8:47:30 AM I was physically present for the entire viewing portion of the exam. EVER ZEE MD Number of Addenda: 0 Note Initiated On: 08/04/2023 7:25 AM MRN: ?[id number] Procedure Date: ? 08/04/2023 7:25:15 AM Total Procedure Duration: 0 hours 3 minutes 40 seconds Estimated Blood Loss: ? Scope In: 7:47:47 AM Scope Out: 7:51:27 AM RADIOLOGY RESULTS 08/04/2023 7:25 AM INSOLE REINFORCER Ever Zee MD PROCEDURES RADIOLOGY RESULTS * (ABNORMAL) Glucose by meter (08/04/2023 6:50 AM INSOLE REINFORCER) GLUCOSE BY METER POCT 182(H) 70 - 99 mg/dL 08/04/2023 6:57 AM INSOLE REINFORCER LABORATORY POC Comment:/RN Notified Blood, Capillary BLOOD SPECIMEN / Unknown 08/04/2023 6:50 AM INSOLE REINFORCER 08/04/2023 6:57 AM INSOLE REINFORCER Ever Zee MD LAB - [facility] LABORATORY POC [facility] Lab [address] [facility] Lab (1st floor, no room number) [place] [address], [facility] [phone] * LAB RESULT - HIM SCAN (07/25/2023 12:00 AM INSOLE REINFORCER) 07/25/2023 Provider Outside NON-BEAKER LAB TE STING * EKG CARDIAC - HIM SCAN (07/25/2023 12:00 AM INSOLE REINFORCER) 07/25/2023 Provider Outside ECG ORDERABLES documented in [...] 4 grams/day., Pre-procedure $Given 08/04/2023 6:56 AM INSOLE REINFORCER 975 mg BUPivacaine (MARCAINE) 0.5% preservative free injection PRN, Starting on Mon08/04/23 at 0813, Intra-procedure $Given 08/04/2023 8:13 AM INSOLE REINFORCER 29.75 mLs Operative Site/Surgical Site fentaNYL (PF) [...] Mon08/04/23 at 0840 Restarted 08/04/2023 7:38 AM INSOLE REINFORCER $New Bag 08/04/2023 6:52 AM INSOLE REINFORCER 10 mL/hr lactated ringers infusion at 100 [...] after each dose. $Given 08/04/2023 9:10 AM INSOLE REINFORCER 1 mg naloxone (NARCAN) injection 0.2 mg [...] at 0823, Intra-procedure $Given 08/04/2023 8:23 AM INSOLE REINFORCER 400 mLs Operative Site/Surgi radha Site documented in this encounter Active and Recently Administered Medications Times are shown in INSOLE REINFORCER. Scheduled Medication Order 08/02/2023 08/03/2023 08/04/2023 acetaminophen [...] ll documented in this encounter Care Teams Popped Corn Oven Attendant Relationship Specialty Start Date End Date Lina Meléndez MD [facility] [address] [place] [address] PCP - General Internal Medicine 12/26/14 Rhoda Sarabia I [address] [place] [address] Ship Worker Dietitian, Registered 02/20/20 documented as of this encounter
--- OUTSIDE RECORDS SUMMARY | 2023-10-13 07:54 | XMS_ITS | Encounter Summary ---
Author Name Unknown Organization [place] Address [address] [place] [id number] Care Team Providers Care Park Interpretive Ranger Name Role Phone Lina Meléndez MD Primary Care Provider [place], Dojessie Shivani Unavailable Reason for Visit * Auth/Cert (Routine) Specialty Diagnoses / Procedures Referred By Caroline clement Referred To Contact Surgery Diagnoses Prolapsed internal hemorrhoids, grade 3 Screen for colon cancer Prolapsed internal hemorrhoids, grade 3 [K64.2] Screen for colon cancer [Z12.11] Procedures HI COLONOSCOPY W/WO BRUSH/WASH HI HEMORRHOIDECTOMY W BANDING/LIGATION HI LIGATION INTERNAL HEMORRHOID, SINGLE, W/O IMAGING HI LIGATION INTERNAL HEMORRHOID, 2 OR MORE, W/O IMAGING INTAROPERATIVE Colonoscopy WITH EXAM UNDER ANESTHESIA OF RECTUM WITH HEMORROIDECTOMY [facility] [address] [place] [address] Referral ID Status Reason Start Date Expiration Date Visits Re quested Visits Authorized [id number] 1 1 Encounter Details Date Type Department Care Team (Latest Contact Info) Description 08/04/2023 5:28 AM APPLE PICKER - 08/04/2023 11:05 AM APPLE PICKER Hospital Encounter [facility] PreOP/PostOP [address] [place] [id number] Ever Zee MD [facility] [address] [id number] Hemorrhoids, unspecified hemorrhoid type (Primary Dx) Discharge [...] Comments Blood Pressure 153/88 08/04/2023 11:00 AM APPLE PICKER Pulse 79 08/04/2023 11:00 AM APPLE PICKER Temperature 36.1 ??C (97 ??F) 08/04/2023 11:00 AM APPLE PICKER Respiratory Rate 18 08/04/2023 11:00 AM APPLE PICKER Oxygen Saturation 100% 08/04/2023 11:00 AM APPLE PICKER Inhaled Oxygen Concentration - - Weight 70.9 kg (156 lb 4.8 oz) 08/04/2023 6:02 A M APPLE PICKER Height 165.1 cm (5' 5) 07/26/2023 1:00 PM APPLE PICKER Body Mass Index 26.01 07/26/2023 1:00 PM APPLE PICKER documented in this encounter Discharge Instructions * Discharge Instructions* Jorje Kendall RN - 08/04/2023 6:57 AM APPLE PICKER Maximum acetaminophen (Tylenol) dose from all sources should not exceed 4 grams (4000 mg) per day. You last had 975 mg at 6:56 AM; do not take Tylenol products again until after 12:[address] VIVIENNE ZEE M.D. CLINIC PHONE NUMBER: [phone] [facility] E PICKER * Attachments The following attachments cannot be sent through Care Everywhere. * (s) After Anesthesia (Sleep Medicine) (Romanian) documented in this encounter Medications at Time [...] sleep fluticasone (FLONASE) 50 MCG/ACT nasal spray [place] 2 sprays in nostril daily folic acid [...] of this encounter Progress Notes * Libby Jiame RN - 08/04/2023 5:50 AM CST Patient had Medtronic bladder stimulator. Patient reported pre operatively that she left the remote home. Patient has brief on. Libby Jaime RN on 08/04/2023 at 5:51 AM E PICKER documented in this encounter Miscellaneous Notes * Brief Op Note - Ever Zee MD - 08/04/2023 8:48 AM CST [facility] Brief Operative Note Pre-operative diagnosis: Prolapsed internal [...] Implants: * No implants in log * E PICKER * Op Note - Ever Zee MD [...] SPECIMEN: right posterior hemorrhoid. Kiera Zee MD E PICKER documented in this encounter Plan of Treatment Not on file documented as of this encounter Procedures Procedure Name Priority Date/Time Associated Diagnosis Comments GLUCOSE BY METER Routine 08/04/2023 9:05 AM APPLE PICKER SURGICAL PATHOLOGY EXAM Routine 08/04/2023 8:19 AM APPLE PICKER HEMORRHOIDECTOMY, INTERNAL 08/04/2023 7:38 AM APPLE PICKER Prolapsed internal hemorrhoids, grade 3 Screen for colon cancer COLONOSCOPY 08/04/2023 7:38 AM APPLE PICKER Prolapsed internal hemorrhoids, grade 3 Screen for colon cancer COLONOSCOPY Routine 08/04/2023 7:25 AM APPLE PICKER GLUCOSE BY METER Routine 08/04/2023 6:50 AM APPLE PICKER LAB RESULT - HIM SCAN 07/25/2023 12:00 AM APPLE PICKER EKG CARDIAC - HIM SCAN 07/25/2023 12:00 AM APPLE PICKER documented in this encounter Results * (ABNORMAL) Glucose by meter (08/04/2023 9:05 AM APPLE PICKER) GLUCOSE BY METER POCT 180(H) 70 - 99 mg/dL 08/04/2023 9:13 AM APPLE PICKER RH LABORATORY POC Blood, Capillary BLOOD SPECIMEN / Unknown 08/04/2023 9:05 AM APPLE PICKER 08/04/2023 9:13 AM APPLE PICKER Ever [facility] POCT RH LABORATORY POC [facility] Acute Care Lab [address] [facility] Lab (1st floor, no room number) [place] [address], [facility] [phone] * Surgical Pathology Exam (08/04/2023 8:19 AM APPLE PICKER) Case Report Surgical Pathology Report ? Case: [id number] ? Authorizing Provider: ??Ever Zee MD ?? Collected: ? 08/04/2023 08:19 AM ? Ordering Location: ? [facility] ?? Received: ?08/04/2023 08:44 AM ? Main OR ? Pathologist: ? Mario Boo MD ? Specimen: ?Rectum, Right posterior hemorroid ? 08/07/2023 1:17 PM [facility] Final Diagnosis A(1). Anal/Rectal mucosa and soft tissue, Right posterior, excision: - Polypoid colonic mucosa with prominent underlying blood vessels consistent with hemorrhoidal tissue. - Negative for dysplasia or malignancy. 08/07/2023 1:17 PM [facility] Clinical Information Procedure: INTAROPERATIVE Colonoscopy WITH EXAM UNDER ANESTHESIA OF RECTUM WITH HEMORROIDECTOMY Pre-op Diagnosis: Prolapsed internal hemorrhoids, grade 3 [K64.2] Screen for colon cancer [Z12.11] Post-op Diagnosis: K64.2 - Prolapsed internal hemorrhoids, grade 3 [ICD-10-CM] Z12.11 - Screen for colon cancer [ICD-10-CM] 08/07/2023 1:17 PM [facility] Gross Description A(1). [...] specimen (MARTIR Jones (ASCP) 08/07/2023 1:17 PM [facility]ER LABORATORY Microscopic Description Microscopic examination was performed. 08/07/2023 1:17 PM [facility]ER LABORATORY Performing Labs The technical component of this testing was completed at [facility] 08/07/2023 1:17 PM [facility]ER LABORATORY Case Images 08/07/2023 1:17 PM APPLE PICKER LABORATORY Tissue RECTUM PART / Unknown 08/04/2023 8:19 AM APPLE PICKER 08/04/2023 8:44 AM APPLE PICKER Ever [facility] Acute Care Lab [address] Lab (1st floor, no room number) [place] [address], [facility] [phone] * COLONOSCOPY (08/04/2023 7:25 AM APPLE PICKER) COLONOSCOPY [facility] Patient Name: Maryam Cortez ?Procedure Date: 08/04/2023 [...] ?Olympus, Pediatric Colonoscope, Model # [id number]-H190DL, ?Censitrac #[id number] was introduced through the ?anus with the [...] criteria for high risk CPT copyright 2021 [employer]. All rights reserved. The codes documented in this report are preliminary and upon stock clerk review may be revised to meet current compliance requirements. EVER ZEE MD 08/04/2023 8:47:30 AM I was physically present for the entire viewing portion of the exam. EVER ZEE MD Number of Addenda: 0 Note Initiated On: 08/04/2023 7:25 AM MRN: ?[id number] Procedure Date: ? 08/04/2023 7:25:15 AM Total Procedure Duration: 0 hours 3 minutes 40 seconds Estimated Blood Loss: ? Scope In: 7:47:47 AM Scope Out: 7:51:27 AM RADIOLOGY RESULTS 08/04/2023 7:25 AM APPLE PICKER Ever Zee MD PROCEDURES RADIOLOGY RESULTS * (ABNORMAL) Glucose by meter (08/04/2023 6:50 AM APPLE PICKER) GLUCOSE BY METER POCT 182(H) 70 - 99 mg/dL 08/04/2023 6:57 AM APPLE PICKER RH LABORATORY POC Comment:Dr/RN Notified Blood, Capillary BLOOD SPECIMEN / Unknown 08/04/2023 6:50 AM APPLE PICKER 08/04/2023 6:57 AM APPLE PICKER Ever Zee MD LAB - [facility] POCT LABORATORY [facility] Acute Care Lab [address] Lab (1st floor, no room number) [place] [address], [facility] [phone] * LAB RESULT - HIM SCAN (07/25/2023 12:00 AM APPLE PICKER) 07/25/2023 Provider Outside NON-BEAKER LAB TE STING * EKG CARDIAC - HIM SCAN (07/25/2023 12:00 AM APPLE PICKER) 07/25/2023 Provider Outside ECG ORDERABLES documented in [...] 4 grams/day., Pre-procedure $Given 08/04/2023 6:56 AM APPLE PICKER 975 mg fentaNYL (PF) (SUBLIMAZE) injection 25 [...] Mon08/04/23 at 0840 Restarted 08/04/2023 7:38 AM APPLE PICKER $New Bag 08/04/2023 6:52 AM APPLE PICKER 10 mL/hr lactated ringers infusion at 100 [...] after each dose. $Given 08/04/2023 9:10 AM APPLE PICKER 1 mg naloxone (NARCAN) injection 0.2 mg [...] Recently Administered Medications Times are shown in APPLE PICKER. Scheduled Medication Order 08/02/2023 08/03/2023 08/04/2023 acetaminophen [...] ll documented in this encounter Care Teams Park Interpretive Ranger Relationship Specialty Start Date End Date Lina Melédnez MD [facility] & [address] [address] PCP - General Internal Medicine 12/26/14 Rhoda Sarabia I [address] [place] [id number] Liner Man Dietitian, Registered 02/20/20 documented as of this encounter
--- OUTSIDE RECORDS SUMMARY | 2023-10-13 07:55 | XMS_ITS ---
Author Name Unknown Organization [facility] Address [address] [place] [address] Care Team Providers Care Test Clerk Name Role Phone Unavailable Unavailable Unavailable Surgery Details Not on file Complications Check Surgery Details section. Procedure Estimated Blood Loss Check Surgery Details section. Procedure Findings Check Surgery Details section. Procedure Specimens Taken Check Surgery Details section.
--- OUTSIDE RECORDS SUMMARY | 2023-10-13 07:55 | XMS_ITS ---
Author Name Unknown Organization 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
--- OUTSIDE RECORDS SUMMARY | 2023-10-13 07:55 | XMS_ITS | Referral Summary ---
Author Name Unknown Organization [facility] Address [address] [place] [address] Care Team Providers Care Hourly Associate Name Role Phone Unavailable Primary Care Provider Unavailabl e Source Comments Patient records contain information from all sites at [facility]. For routine questions regarding patient records, call [phone] during business hours, M-F 8:00 AM - 5:00 PM Central Time. Record requests for emergency care only can be directed to [phone] at any time.[facility] Encounters Date Type Department Care Team Description 09/11/2023 4:15 PM CDT External Outreach Division of Nephrology and Hypertension in [place], [place] [address] [place] [address] Joshua Lopez Jr., D.O. Hypertension And Chronic [...] flash glucose scanning reader (FREESTYLE KYLIE) misc 12/31/2021 Active flash glucose sensor (FREESTYLE KYLIE) [...] from 12/21/2021:Stage Unknown(pT1b, pNX, cM0, G2, ER+, IL+, HER2-, Oncotype DX score: 17) - Unsigned [...] often do you attend chur ch or church services? More than 4 times per year 02/12/2022 Do you belong to any clubs o r organizations such as yazidism groups, unions, fraternal or athletic groups, or [...] medical care, and heating? Somewhat hard 02/12/2022 [facility] [place] of Occupat ional Health - Occupational Stress [...] CDT Plan of Treatment Not on file Procedures Procedure Name Priority Date/Time Associated Diagnosis Comments EXTI SODIUM, S/P Routine 05/05/2023 8:55 AM WINDOWS SYSTEMS ADMIN EXTI POTASSIUM, S/P Routine 05/05/2023 8 :55 AM WINDOWS SYSTEMS ADMIN EXTI CREATININE WITH EGFR, S/P Routine 05/05/2023 8:55 AM WINDOWS SYSTEMS ADMIN OUTSIDE MG MAMMOGRAM Routine 12/21/2021 10:00 AM [...]
--- OUTSIDE RECORDS SUMMARY | 2023-10-13 07:55 | XMS_ITS | Encounter Summary ---
Author Name Unknown Organization [facility] Address [address] [place] [address] Care Team Providers Care Janitor Helper Name Role Phone Unavailable Primary Care Provider Unavailabl e Reason for Visit * Appointment Request (Routine) - Closed Specialty Diagnoses / Procedures Referred By Caroline clement Referred To Contact Nephrology and Hypertension Referral ID Status Reason Start Date Expiration Date Visits Re quested Visits Authorized [id number] Closed 08/10/2023 08/09/2024 1 1 Encounter Details Date Type Department Care Team (Latest Contact Info) Description 09/11/2023 4:15 PM CDT External Outreach Division of Nephrology and Hypertension in [place], [place] [address] [place] [address] Joshua Lopez Jr., D.O. [address] [place] [address] Hypertension And Chronic Kidney Disease Stage 1 [...] How often do you attend chur or synagogue services? More than 4 times per year 02/12/2022 Do you belong to any clubs o r organizations such as catholic groups, unions, fraternal or athletic groups, [...] medical care, and heating? Somewhat hard 02/12/2022 [facility] [place] of Occupat ional Health - Occupational Stress [...] place to sleep or slept in a long term (including now)? No 02/12/2022 Nutrition Answer Date [...] Provider: DR Rome SUBJECTIVE REASON FOR VISIT [place] out [facility] Follow-up regards severe [...] She is adapting to this with Dr. Gupta. No shortness of breath no chest pain [...] Rfl: flash glucose scanning reader (FREESTYLE KYLIE) [facility], , Disp: , Rfl: flash glucose sensor [...]
== END 2023-10-06 07:57 | disposition home or self-care (01) ==
LOC: NFLDREF 10-13 07:51
PROVIDERS: PCP Internal Medicine; Referring Provider Internal Medicine; Visit Provider Internal Medicine
DX: E11.9 Type 2 diabetes mellitus without complications (principal); M81.0 Age-related osteoporosis without current pathological fracture; D63.8 Anemia in other chronic diseases classified elsewhere; E87.1 Hypo-osmolality and hyponatremia; I10 Essential (primary) hypertension
CPT/HCPCS: 80053; 80061; 80069; 82043; 82306; 82570; 82607; 82728; 82746; 83540; 83550; 83735; 84550

== ENCOUNTER 2023-11-07 12:29 | Outpatient (CLI) | payer MEDICARE, SELFPAY ==
--- OUTSIDE RECORDS SUMMARY | 2023-11-07 12:31 | XMS_ITS | Clinical Summary ---
Author Name Unknown Organization [facility] Address [place], [place] [address] Care Team Providers Care Plate Glass Grinder Name Role Phone Lina Meléndez MD Primary Care Provider [phone]- [phone] Allergies Active Allergy Reactions Criticality Noted Date [...] bedtime. 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OinkE) 12/31/2021 Active continuous glucose monitor SENSOR KIT (OinkE) 12/31/2021 Active bd insulin pen needle uf [...] Encounters Date Type Department Care Team Description 11/03/2023 3:15 PM CDT Ancillary Procedure [facility] [address] [place] [address] Arrived 11/03/2023 2:15 PM CDT Office Visit [facility] [address] [place] [address] Stevan Nixon MD Musculoskeletal Problem (For about 2 months having LEFT Knee pain (on both sides of knee cap) and swelling. Having some heat to area too./Had total knee replacement early s. ) 11/03/2023 Travel 11/01/2023 Telephone [facility] [address] [place] [address] Corona Dixon MD Appointment Request (Knee appointment ) from Last 3 Months Immunizations Name Administration [...] of Communication with Friends and Fami ly 0 11/03/2023 Financial Resource Strain Answer Date R ecorded Difficulty of Paying Living Expenses 3 11/03/2023 Difficulty of Paying Living Expenses Not on file 11/03/2023 Food Insecurity Answer Date Recorded Worried About Running Out of Food in the Last Ye ar 1 11/03/2023 Transportation Needs Answer Date Record ed Lack of Transportation (Medical) 1 11/03/2023 Housing Stability Answer Date Recorded Unable to Pay for Housing in the Last Year 1 11/03/2023 Sex and Gender Information Value Date Recorded Sex Assigned at Female 08/31/2020 9:33 AM METER TESTER Gender Identity Female 08/31/2020 9:33 AM METER TESTER Sexual Orientation Straight 08/31/2020 9: 33 AM METER TESTER Obstetrics History Para Term AB IAB SAB Ectopic Multiple Livin g Live Births 6 6 5 1 0 0 0 0 0 5 Date Outcome GA Total Labor Labor/2nd/3rd Weight Sex Delivery Anes PTL Siri A1 A5 Name Cl in Term Term Term Term Term Comments 1 , 1 Last Filed Vital Signs Vital Sign Reading Time Taken Comments Blood Pressure 122/65 11/03/2023 2:25 PM CDT Pulse 71 11/03/2023 2:25 PM CDT Temperature 37.1 ??C (98.7 ??F) 05/05/2023 7:27 AM CS T Respiratory Rate 16 05/05/2023 7:27 AM METER TESTER Oxygen Saturation 99% 11/03/2023 2:25 PM CDT Inhaled Oxygen Concentration - - Weight 73.6 kg (162 lb 3.2 oz) 11/03/2023 2:25 P M CDT Height 165.1 cm (5' 5) 06/07/2023 2:05 PM METER TESTER Body Mass Index 26.99 06/07/2023 2:05 PM METER TESTER Plan of Treatment Upcoming Encounters Date Type Department Care Team (Late st Contact Info) Description 01/01/2024 1:40 PM CDT Office Visit [facility] [address] [place] [address] Corona Dixon MD [address] [place] [address] Health Maintenance Due Date Last Done Comments [...] 18-79 Completed 12/08/2016 COVID-19 vaccine series Completed 10/12/19, 03/29/2023, 10/26/2022, Additional history exists Medical Devices Implanted Type Area Keymodule Assembly Machine Tender Device Identifier Shelf Expiration Date Model / Serial / Lot [id number] 1-4mm 30cc Medtronic Chips Canclls Freeze Dried Implanted:Qty: 1 on 12/06/2016 by Gurinder Mc MD at [facility] Explanted:at [facility] (Quantity not on file) Spine Medtronic Spine/Ortho 08/24/2021 [id number]# / [id number] / Spacer Lmbr [id number] Zyston Convex Stra Plif - [id number] Implanted:Qty: 1 on 12/06/2016 by Gurinder Mc MD at [facility] Spine Meka Biomet 07/26/2026 [id number] # / / [id number] Matrix 3cc Moffat Dbf Putty Dbm Implanted:Qty: 1 on 12/06/2016 by Gurinder Mc MD at [facility] Explanted:at [facility] (Quantity not on file) Spine Medtronic Spine/Ortho 09/08/2018 [id number]# / [id number] / Screw Lmbr Post 5.5x40mm Vitality Va - [id number] Implanted:Qty: 1 on 12/06/2016 by Gurinder Mc MD at [facility] Spine [employer]a [employer] Spine 07.11333. 032# / / Screw Lmbr Post 5.5x45mm Vitality Va - [id number] Implanted:Qty: 2 on 12/06/2016 by Gurinder Mc MD at [facility] Spine [employer] Spine 07.22888. 033# / / Set Screw Lmbr 5.5-6mm Vitality Shear Off - [id number] Implanted:Qty: 4 on 12/06/2016 by Gurinder Mc MD at [facility] Spine M[employer]a [employer] Spine 07.97450. 001# / / Avni Lmbr 40x5.5mm Vitality Cvd Titnm - [id number] Implanted:Qty: 2 on 12/06/2016 by Gurinder Mc MD at [facility] Spine [employer]a [employer] Spine 07.08875. 005# / / Spacer Lmbr [id number] Zyston Convex Stra Plif - [id number] Implanted:Qty: 1 on 12/06/2016 by Gurinder Mc MD at [facility] Spine [employer] [id number] # / / Screw Lmbr Post 6.5x40mm Vitality Va - [id number] Implanted:Qty: 1 on 12/06/2016 by Gurinder Mc MD at [facility] Spine [employer] Spine 07.52421. 074# / / .[id number] Double Ended K-Wire Implanted:Qty: 2 on 12/03/2018 by Rex Fink DPM at [facility] Right: Foot N/A / / Interstim Basic Evaluation Lead Implanted:Qty: 1 on 09/28/2022 by Michelle Colmenares DO at [facility] 01/26/2024 [id number] / / [id number] Interstim Basic Evaluation Kit Implanted:Qty: 1 on 09/28/2022 by Michelle Colmenares DO at [facility] 08/27/2023 [id number] / / [id number] Sys Interstim X Surescan Mri Lead And Smart Machine Edge Bander - [id number] Implanted:Qty: 1 on 10/18/2022 by Michelle Colmenares DO at [facility] Med[facility]onic [facility] Therapy 02/07/2024 [id number] / [id number] / Lead Kit 4.32mm Spacing 28cm Length Interstim - [id number] Implanted:Qty: 1 on 10/18/2022 by Michelle Colmenares DO at [facility] Medtronic Pain Therapy 01/17/2024 [id number] / / [id number] Envlp Neuro Tyrx Absorb Antibacterial - [id number] Implanted:Qty: 1 on 10/18/2022 by Michelle Colmenares DO at [facility] Right: [facility] Medtronic 03/20/2023 [id number] / / [id number] Spacer Lmbr [id number] Zyston Convex Stra Tlif - [id number] Implanted:Qty: 1 on 05/03/2023 by Gurinder Mc MD at [facility] N/A: Spine [employer] 09/13/2026 [id number] / / [id number] Avni Lmbr 95x5.5mm Vitality Cvd Titnm - [id number] Implanted:Qty: 1 on 05/03/2023 by Gurinder Mc MD at [facility] N/A: Spine [employer] Spine 07.39255. 016 / / Avni Lmbr 90x5.5mm Vitality Cvd Titnm - [id number] Implanted:Qty: 1 on 05/03/2023 by Gurinder Mc MD at [facility] N/A: Spine [employer] Spine 07.21845. 015 / / Set Screw Lmbr 5.5-6mm Vitality Torque - [id number] Implanted:Qty: 8 on 05/03/2023 by Gurinder Mc MD at [facility] N/A: Spine [employer]a [employer] Spine 07.18111. 001 / / Screw Spinal 4.5x45mm Poly Tl Implanted:Qty: 1 on 05/03/2023 by Gurinder Mc MD at [facility] N/A: Spine [id number] / / Description:SCREW SPINAL 4.5 X45MM POLY TL Screw Spinal 5.5x45mm Poly Tl Implanted:Qty: 3 on 05/03/2023 by Gurinder Mc MD at [facility] N/A: Spine [id number] / / Description:SCREW SPINAL 5.5 X45MM POLY TL Bone 1-4mm 60cc Digiumtronic Fine Canclls Freeze Dried - [id number] Implanted:Qty: 1 on 05/03/2023 by Gurinder Mc MD at [facility] N/A: Spine Medtronic Spine/Ortho 09/21/2026 [id number] / [id number] / Bone Matrix 6cc Moffat Dbf Putty [facility] - [id number] Implanted:Qty: 1 on 05/03/2023 by Gurinder Mc MD at [facility] N/A: Spine Medtronic Spine/Ortho 04/11/2025 [id number] / [id number] / Procedures Procedure Name Priority Date/Time Associated Diagnosis Comments XR KNEE 3 VIEWS LEFT Routine 11/03/2023 3:28 PM CDT Chronic pain of left knee EXPOSURE (BBF) ANTI HCV STAT 12/08/2016 1:07 AM CDT from Last 3 Months or Most Recently Relevant to Health Maintenance Results * XR KNEE 3 VIEWS LEFT (11/03/2023 3:28 PM CDT) Anatomical Region Laterality Modality KNEES, KNEE L Computed Radiogr aphy 11/06/2023 8:18 AM CDT Narrative 11/06/2023 8:18 AM CDT For Patients: ??As a result of the Cures Act, medical imaging exams and procedure reports are released immediately into your electronic medical record. ??You may view this report before your referring provider. ??If you have questions, please contact your health care provider. INDICATION: Chronic left knee pain history of total knee arthroplasties. COMPARISON: 02/26/2021 and 01/22/2021. FINDINGS: Three views of the left knee were obtained. There is a stable total knee arthroplasty. There is lucency around the tibial component, unchanged from the previous studies. There is no acute fracture or dislocation. There is a joint effusion. There are calcifications again noted in the joint space. There is no significant change from the previous studies. Dictated by Coleman Gao MD @ Nov 06 2023 ??8:18AM (Electronically Signed) [email or web address] Procedure Note Coleman Gao MD - 11/06/2023 For Patients: As a result of the Cures Act, medical imagingexams and procedure reports are released immediately into your electronicmedical record. You may view this report before your referring provider.If you have questions, please contact your health care provider. INDICATION: Chronic left knee pain history of total knee arthroplasties. COMPARISON: 02/26/2021 and 01/22/2021. FINDINGS: Three views of the left knee were obtained. There is a stable total kneearthroplasty. There is lucency around the tibial component, unchanged fromthe previous studies. There is no acute fracture or dislocation. There maame joint effusion. There are calcifications again noted in the joint space.There is no significant change from the previous studies. Dictated by Coleman Gao MD @ Nov 06 2023 8:18AM (Electronically Signed) [email or web address] Stevan Nixon MD GENERAL IMAGING * Patient Source ANTI HCV (12/08/2016 1:07 AM CDT) HEPATITIS C ANTIBODY Non-Reacti ve Non-Reacti ve 12/08/2016 2:31 AM CDT [facility] Blood BLOOD SPECIMEN / Unknown Venipuncture / Unknown 12/08/2016 1:07 AM CDT 12/08/2016 1:28 AM CDT Narrative [facility] - 12/08/2016 2:31 AM CDT Antibodies to HCV not detected; does not exclude the possibility of exposure to HCV. Meghann Humphreys MD SEND OUTS [facility] [address] [place] [address], [place] from Last 3 Months or Most Recently Relevant to Health Maintenance Advance Directives Documents on File Type Date Recorded Patient Dockworker Expl anation Healthcare Directive 12/31/2015 7:52 AM [...] Comments Code Status Discussion: Discussed Care Teams Plate Glass Grinder Relationship Specialty Start Date End Date Lina Meléndez MD [address] [place] [address] PCP - General Internal Medicine 11/01/21
--- OUTSIDE RECORDS SUMMARY | 2023-11-07 12:31 | XMS_ITS | Clinical Summary ---
Author Name Unknown Organization [facility] Address [address] [place] [address] Care Team Providers Care Lift Mechanic Name Role Phone Lina Meléndez MD Primary Care Provider +1- [phone] Source Comments You are receiving this document as you are listed as the primary care provider,follow-up provider, or the patient has been referred to you for consultation.This is in compliance with the Medicare andOhio[facility] Doctors Hospitalcaid EHR Incentive Program,which states Providers who transition their patient to another setting of careor provider of care or refers their patient to another provider of care shouldprovide summary care record for each transition of care or referral. [facility] Allerg[facility] Active Allergy Reactions Criticality Noted Date [...] Overview: Added automatically from request for surgery [id number] TC (obstructive sleep apnea) 11/05/2018 Arthritis of [...] Comments Blood Pressure 147/63 07/17/2019 2:34 PM CATERING DIRECTOR Pulse 75 07/17/2019 2:34 PM CATERING DIRECTOR Temperature 36.7 ??C (98.1 ??F) 07/17/2019 2:34 PM CS T Respiratory Rate 18 07/17/2019 2:34 PM CATERING DIRECTOR Oxygen Saturation 99% 07/17/2019 2:34 PM CATERING DIRECTOR Inhaled Oxygen Concentration - - Weight 75 kg (165 lb 6.4 oz) 07/16/2019 10:19 AM CATERING DIRECTOR Height 165.1 cm (5' 5) 07/16/2019 10:19 AM CATERING DIRECTOR Body Mass Index 27.52 07/16/2019 10:19 AM CATERING DIRECTOR Plan of Treatment Health Maintenance Due Date Last Done Comments Diabetes: Eye Exam 1945 Diabetes: Foot Exam 1945 Diabetes: Lipid Panel 1945 Diabetes: Urine Microalbumin 1947 Hep C Screening (Preventive Services) 1947 Dexa 2012 Diabetes: HGBA1C 10/16/2019 07/17/2019, 05/21/2016 Diabetes: Creatinine 07/17/2020 07/17/2019, 05/05/2007, 02/04/2004 COVID-19 Vaccine ( season) 2023 08/04/2020, 07/14/2020 Medicare Annual Wellness Visit 06/26/2023 Colonoscopy 08/30/2023 08/29/2013 Influenza (Season Ended) 2024 020, 03/26/2019, 03/31/2017, Additional history exists DTaP/Tdap/Td (4 - Tdap) 08/22/2024 08/22/19 15, [...] this topic Medical Devices Implanted Type Area Reduction Furnace Operator Helper Device Identifier Shelf Expiration Date Model / Serial / Lot Chip Canpolo Brunner 30cc - [id number] Implanted:Qty : 1 on 07/16/2019 by Edelmira Rodriguez MD at [facility] DEVICE Left: SHOULDER Medtronic - [employer] 08/14/2023 [id number] / / [id number] Scr Star Lk Sftp 3.5x48 - [id number] Implanted:Qty : 1 on 07/16/2019 by Edelmira Rodriguez MD at [facility] DEVICE Left: HUMERUS MIDSHAFT DePuy Synthes - Trauma 212.120 / / Scr Cj Sftp Ss 3.5x32 F-Thrd - [id number] Implanted:Qty : 1 on 07/16/2019 by Edelmira Rodriguez MD at [facility] DEVICE Left: HUMERUS MIDSHAFT DePuy Synthes - Trauma 204.832 / / [id number] Plt Prox Hum 3.5x90 6h/3h - [id number] Implanted:Qty : 1 on 07/16/2019 by Edelmira Rodriguez MD at [facility] DEVICE Left: SHOULDER DePuy Synthes - Trauma 241.901 / / [id number] Scr Cj Sftp Ss 3.5x26 F-Thrd - [id number] Implanted:Qty : 1 on 07/16/2019 by Edelmira Rodriguez MD at [facility] DEVICE Left: HUMERUS MIDSHAFT DePuy Synthes - Trauma 204.826 / / Description:3.5mm 26mm Scr Cj Sftp Ss 3.5x28 F-Thrd - [id number] Implanted:Qty : 1 on 07/16/2019 by Edelmira Rodriguez MD at [facility] DEVICE Left: HUMERUS MIDSHAFT DePuy Synthes - Trauma 204.828 / / Scr Star Lk Sftp 3.5x34 - [id number] Implanted:Qty : 1 on 07/16/2019 by Edelmira Rodriguez MD at [facility] DEVICE Left: HUMERUS MIDSHAFT DePuy Synthes - Trauma 212.113 / / Scr Star Lk Sftp 3.5x36 - [id number] Implanted:Qty : 2 on 07/16/2019 by Edelmira Rodriguez MD at [facility] DEVICE Left: HUMERUS MIDSHAFT DePuy Synthes - Trauma 212.115 / / Scr Star Lk Sftp 3.5x40 - [id number] Implanted:Qty : 2 on 07/16/2019 by Edelmira Rodriguez MD at [facility] DEVICE Left: HUMERUS MIDSHAFT DePuy Synthes - Trauma 212.117 / / Scr Star Lk Sftp 3.5x45 - [id number] Implanted:Qty : 1 on 07/16/2019 by Edelmira Rodriguez MD at [facility] DEVICE Left: HUMERUS MIDSHAFT DePuy Synthes - Trauma 212.119 / / Scr Star Lk Sftp 3.5x46 - [id number] Implanted:Qty : 1 on 07/16/2019 by Edelmira Rodriguez MD at [facility] DEVICE Left: HUMERUS MIDSHAFT DePuy Synthes - Trauma 212.136 / / Procedures Procedure Name Priority Date/Time Associated Diagnosis Comments BASIC METABOLIC PANEL Routine 07/17/2019 7:49 AM CATERING DIRECTOR HGB A1C Routine 07/17/2019 7:49 AM CATERING DIRECTOR from Last 3 Months or Most Recently Relevant to Health Maintenance Results * (ABNORMAL) Basic Metabolic Panel (IN AM) (07/17/2019 7:49 AM CATERING DIRECTOR) Pathologist [facility] Sodium 131(L) 136 - 145 mmol/L 07/17/2019 8:42 AM CATERING DIRECTOR [facility] Potassium 3.3(L) 3.5 - 5.1 mmol/L 07/17/2019 8:42 AM CATERING DIRECTOR [facility] Chloride 98 98 - 109 mmol/L 07/17/2019 8:42 AM CATERING DIRECTOR [facility] CO2 25 20 - 29 mmol/L 07/17/2019 8:42 AM CATERING DIRECTOR [facility] Anion Gap 8 7 - 16 mmol/L 07/17/2019 8:42 AM CATERING DIRECTOR [facility] Calcium 8.4 8.4 - 10.4 mg/dL 07/17/2019 8:42 AM CATERING DIRECTOR [facility] BUN 16 7 - 26 mg/dL 07/17/2019 8:42 AM CATERING DIRECTOR [facility] Creatinine 0.65 0.55 - 1.02 mg/dL 07/17/2019 8:42 AM CATERING DIRECTOR [facility] GFR, Estimated >60 >60 mL/min/1.7 3m2 07/17/2019 8:42 AM CATERING DIRECTOR [facility] GFR, Est If >60 >60 mL/min/1.7 3m2 07/17/2019 8:42 AM CATERING DIRECTOR [facility] Glucose 187(H) 70 - 100 mg/dL 07/17/2019 8:42 AM CATERING DIRECTOR [facility] Comment:The given reference range is for the fasting state. Non-fasting reference range for glucose is 70 - 180 mg/dL. Blood Venipuncture / Unknown 07/17/2019 7:49 AM CATERING DIRECTOR 07/17/2019 7:56 AM CATERING DIRECTOR Larisa Gaines MD LAB_1 [facility] [address] * (ABNORMAL) Hemoglobin A1C Glycosylated (IN AM) (07/17/2019 7:49 AM CATERING DIRECTOR) Hemoglobin A1C 6.7(H) <=5.6 % 07/17/2019 1:39 PM CATERING DIRECTOR [facility] Blood Venipuncture / Unknown 07/17/2019 7:49 AM CATERING DIRECTOR 07/17/2019 7:56 AM CATERING DIRECTOR Narrative [facility] - 07/17/2019 1:39 PM CATERING DIRECTOR For patients not previously diagnosed with diabetes: 5.7-6.4%: Increased risk for diabetes 6.5% and greater: Diagnostic for diabetes For patients diagnosed with diabetes: <8.0%: Goal of therapy for ages 18-75 Clinicians may recommend a higher or lower goal for specific individuals. Larisa Gaines MD LAB_1 Performing Organization Address [facility] de Phone Number [facility] [address] from Last 3 Months or Most Recently Relevant to Health Maintenance Advance Directives * Full Code (Latest Code Status on File) Date Activated Date Inactivated Comments 07/16/2019 4:18 PM 07/17/2019 5:47 PM Care Teams Lift Mechanic Relationship Specialty Start Date End Date Lina Meléndez MD [address] [place] [address] PCP - General Internal Medicine 12/20/18
--- OUTSIDE RECORDS SUMMARY | 2023-11-07 12:32 | XMS_ITS | Encounter Summary ---
Author Name Unknown Organization Portal Address [address] [facility] [place] [address] Care Team Providers Care Twisting Frame Fixer Name Role Phone Lina Meléndez MD Primary Care Provider Rhoda Sarabia I Unavailable Reason for Visit * Auth/Cert (Routine) Specialty Diagnoses / Procedures Referred By Caroline clement Referred To Contact Surgery Diagnoses Prolapsed internal hemorrhoids, grade 3 Screen for colon cancer Prolapsed internal hemorrhoids, grade 3 [K64.2] Screen for colon cancer [Z12.11] Procedures MI COLONOSCOPY W/WO BRUSH/WASH MI HEMORRHOIDECTOMY W BANDING/LIGATION MI LIGATION INTERNAL HEMORRHOID, SINGLE, W/O IMAGING MI LIGATION INTERNAL HEMORRHOID, 2 OR MORE, W/O IMAGING INTAROPERATIVE Colonoscopy WITH EXAM UNDER ANESTHESIA OF RECTUM WITH HEMORROIDECTOMY [facility] [address] [place] [address] Referral ID Status Reason Start Date Expiration Date Visits Re quested Visits Authorized [id number] 1 1 Encounter Details Date Type Department Care Team (Late st Contact Info) Description 08/04/2023 7:38 AM MAT TESTER Anesthesia Event [facility] [address] [place] [address] Marlon Rueda, DO [facility] ANESTHESIA [address] [place], [place] [address] Anesthesia Record Procedure Summary Procedure Name Responsible Anesthesiologist Anesthesia Start Time Anesthesia Stop Time INTAROPERATIVE Colonoscopy (Rectum) Marybeth Marlon Brook, DO 08/04/23 0738 08/04/23 0843 Events Date Time Event Comment 08/04/2023 0642 0713 TURBINE MECHANIC Ready for Procedure 0738 An Start 0738 [...] Stop Electronically signed by Toño Zuniga APRN TURBINE MECHANIC on August 04, 2023 8:43 AM Meds [...] Rueda DO August 04, 2023 9:36 AM TESTER * Anesthesia Postprocedure Evaluation - Marlon Rueda [...] Rueda DO August 04, 2023 9:36 AM TESTER * Anesthesia Preprocedure Evaluation - Marlon Rueda [...] STEROID INJECTION 08/18/2006 SHOULDER SURGERY Left Repaired [facility] CERV SPINE FUSN,ANTER,BELOW C2 Description: Cervical Vertebral Fusion; Recorded: 12/29/2006; [facility] TOTAL ABDOM HYSTERECTOMY Description: Hysterectomy; Recorded: 01/16/2008; Comments: partial, has R ovary [facility] TOTAL KNEE ARTHROPLASTY Description: Total Knee Arthroplasty; [...] and realistic alternatives discussed. Questions answered and patient/construction sales representative(s) expressed understanding. - Discussed: - [...] encounter: 70.9 kg (156 lb 4.8 oz). TESTER documented in this encounter Miscellaneous Notes * [...] APRN CRNA August 04, 2023 8:43 AM TESTER documented in this encounter Plan of Treatment [...] 0744, Anesthesia Intra-op $Given 08/04/2023 7:57 AM MAT TESTER 25 mcg $Given 08/04/2023 7:44 AM MAT TESTER 25 mcg glycopyrrolate (ROBINUL) injection Intravenous, PRN, Administer over 1-2 Minutes, Starting on Mon08/04/23 at 0744, Anesthesia Intra-op $Given 08/04/2023 7:44 AM MAT TESTER 0.2 mg lactated ringers infusion at 10 mL/hr, Intravenous, CONTINUOUS, IF patient NOT on dialysis., Pre-procedure, Starting on Mon08/04/23 at 0600, Until Mon08/04/23 at 0840 Restarted 08/04/2023 7:38 AM MAT TESTER $New Bag 08/04/2023 6:52 AM MAT TESTER 10 mL/hr lidocaine 2% injection (MDV) Intravenous, PRN, Starting on Mon08/04/23 at 0740, Anesthesia Intra-op $Given 08/04/2023 7:40 AM MAT TESTER 15 mg ondansetron (ZOFRAN) injection Intravenous, PRN, Administer over 2-5 Minutes, Starting on Mon08/04/23 at 0809, Anesthesia Intra-op $Given 08/04/2023 8:09 AM MAT TESTER 4 mg phenylephrine (ANYA-SYNEPHRINE) injection Intravenous, CONTINUOUS PRN, Starting on Mon08/04/23 at 0817, Anesthesia Intra-op $Bolus 08/04/2023 8:22 AM MAT TESTER 100 mcg $New Bag 08/04/2023 8:17 AM MAT TESTER 100 mcg propofol (DIPRIVAN) infusion Intravenous, CONTINUOUS PRN, Starting on Mon08/04/23 at 0741, Anesthesia Intra-op Rate/Dose Change 08/04/2023 8:16 AM MAT TESTER 70 mcg/kg/min 29.82 mL/hr Rate/Dose Change 08/04/2023 8:13 AM MAT TESTER 80 mcg/kg/min 34.0 8 mL/hr Rate/Dose Change 08/04/2023 7:48 AM MAT TESTER 100 mcg/kg/min 42. 6 mL/hr propofol (DIPRIVAN) injection 10 mg/mL vial Intravenous, PRN, Starting on Mon08/04/23 at 0758, Anesthesia Intra-op $Given 08/04/2023 7:58 AM MAT TESTER 25 mg $Given 08/04/2023 7:44 AM MAT TESTER 25 mg documented in this encounter Care Teams Twisting Frame Fixer Relationship Specialty Start Date End Date Lina Meléndze MD [facility] & [address] [address] PCP - General Internal Medicine 12/26/14 Rhoda Sarabia I [address] [place] [address] Wireless Sales Manager Dietitian, Registered 02/20/20 documented as of this encounter
--- OUTSIDE RECORDS SUMMARY | 2023-11-07 12:32 | XMS_ITS | Referral Summary ---
Author Name Unknown Organization [place] Address [address] [place] [address] Care Team Providers Care Soda Fountain Clerk Name Role Phone Lina Meléndez MD Primary Care Provider GrundyRhoda I Unavailable Allergies Active Allergy Reactions Criticality [...] Active fluticasone (FLONASE) 50 MCG/ACT nasal spray [place] 2 sprays in nostril daily Active valACYclovir [...] Created by Conversion Osteoarthritis Overview: Created by [employer] Annotation: Dec 29 2006 3:46PM - Jojo Faustin: DJD Replacement Utility updated for latest IMO load Lower Back Pain Overview: Created by [employer] Annotation: Dec 29 2006 3:46PM - Jojo [...] Comments Blood Pressure 153/88 08/04/2023 11:00 AM ESTHETICIAN SPA Pulse 79 08/04/2023 11:00 AM ESTHETICIAN SPA Temperature 36.1 ??C (97 ??F) 08/04/2023 11:00 AM ESTHETICIAN SPA Respiratory Rate 18 08/04/2023 11:00 AM ESTHETICIAN SPA Oxygen Saturation 100% 08/04/2023 11:00 AM ESTHETICIAN SPA Inhaled Oxygen Concentration - - Weight 70.9 kg (156 lb 4.8 oz) 08/04/2023 6:02 A M ESTHETICIAN SPA Height 165.1 cm (5' 5) 07/26/2023 1:00 PM ESTHETICIAN SPA Body Mass Index 26.01 07/26/2023 1:00 PM ESTHETICIAN SPA Plan of Treatment Not on file Procedures Procedure Name Priority Date/Time Associated Diagnosis Comments COLONOSCOPY Routine 08/04/2023 7:25 AM ESTHETICIAN SPA LIPID PROFILE Routine 12/18/2019 HEMOGLOBIN A1C Routine 12/18/2019 from Last 3 Months or Most Recently Relevant to Health Maintenance Results * COLONOSCOPY (08/04/2023 7:25 AM ESTHETICIAN SPA) [facility] COLONOSCOPY [facility] Patient Name: Maryam Ella Cortez ?Procedure Date: 08/04/2023 7:25 AM ? [...] ?Olympus, Pediatric Colonoscope, Model # PCF-H190DL, ?Censitrac #[id number] was introduced through the ?anus with the [...] in this report are preliminary and upon litigator review may be revised to meet current compliance requirements. EVER ZEE MD 08/04/2023 8:47:30 AM I was physically present for the entire viewing portion of the exam. EVER ZEE MD Number of Addenda: 0 Note Initiated On: 08/04/2023 7:25 AM MRN: ?[id number] Procedure Date: ? 08/04/2023 7:25:15 AM Total Procedure Duration: 0 hours 3 minutes 40 seconds Estimated Blood Loss: ? Scope In: 7:47:47 AM Scope Out: 7:51:27 AM RADIOLOGY RESULTS 08/04/2023 7:25 AM ESTHETICIAN SPA Ever Zee MD PROCEDURES RADIOLOGY RESULTS * Lipid Profile (12/18/2019) Cholesterol 154 90 - 200 mg/dL [facility] Triglycerides 53 40 - 197 mg/dL [facility] HDL Cholesterol 106 >=50 mg/dL [facility] LDL Cholesterol Calculated 37 <100 mg/dL [facility] Blood specimen (specimen) 12/18/2019 [facility] - 12/18/2019 LAB RESULTS [place] Patient Reported LAB - BLOOD ORDERABL ES Performing Organization Address City/[facility]/ZIP Co de Phone Number [address] [address] [phone] * (ABNORMAL) Hemoglobin A1c (12/18/2019) Hemoglobin A1C 7.3(A) <=6.9 % [facility] Blood specimen (specimen) 12/18/2019 [facility] - 12/18/2019 LAB RESULTS [place] Provider Outside LAB - BLOOD ORDERABL ES Performing Organization Address [facility] Co de Phone Number [address] [address] [phone] from Last 3 Months or Most Recently Relevant to Health Maintenance Care Teams Soda Fountain Clerk Relationship Specialty Start Date End Date Lina Meléndez MD [facility] [address] [place] [address] PCP - General Internal Medicine 12/26/14 Rhoda Sarabia I [address] [place] [address] Baggage Porter Dietitian, Registered 02/20/20
--- OUTSIDE RECORDS SUMMARY | 2023-11-07 12:32 | XMS_ITS | Encounter Summary ---
Author Name Unknown Organization [facility] Address [address] [place] [address] Care Team Providers Care Supervisor Farm Equipment Maintenance Name Role Phone Lina Meléndez MD Primary Care Provider [place], Dojessie Shivani Unavailable Reason for Visit * Auth/Cert (Routine) Specialty Diagnoses / Procedures Referred By Caroline clement Referred To Contact Surgery Diagnoses Prolapsed internal hemorrhoids, grade 3 Screen for colon cancer Prolapsed internal hemorrhoids, grade 3 [K64.2] Screen for colon cancer [Z12.11] Procedures IN COLONOSCOPY W/WO BRUSH/WASH IN HEMORRHOIDECTOMY W BANDING/LIGATION IN LIGATION INTERNAL HEMORRHOID, SINGLE, W/O IMAGING IN LIGATION INTERNAL HEMORRHOID, 2 OR MORE, W/O IMAGING INTAROPERATIVE Colonoscopy WITH EXAM UNDER ANESTHESIA OF RECTUM WITH HEMORROIDECTOMY [facility] [address] [place] [address] Referral ID Status Reason Start Date Expiration Date Visits Re quested Visits Authorized [id number] 1 1 Encounter Details Date Type Department Care Team (Latest Contact Info) Description 08/04/2023 5:28 AM REAL ESTATE PROFESSIONAL - 08/04/2023 11:05 AM REAL ESTATE PROFESSIONAL Hospital Encounter [facility] PreOP/PostOP [address] [place] [id number] Ever Zee MD [facility] [address] [id number] Hemorrhoids, unspecified hemorrhoid type (Primary Dx) Discharge [...] Comments Blood Pressure 153/88 08/04/2023 11:00 AM REAL ESTATE PROFESSIONAL Pulse 79 08/04/2023 11:00 AM REAL ESTATE PROFESSIONAL Temperature 36.1 ??C (97 ??F) 08/04/2023 11:00 AM REAL ESTATE PROFESSIONAL Respiratory Rate 18 08/04/2023 11:00 AM REAL ESTATE PROFESSIONAL Oxygen Saturation 100% 08/04/2023 11:00 AM REAL ESTATE PROFESSIONAL Inhaled Oxygen Concentration - - Weight 70.9 kg (156 lb 4.8 oz) 08/04/2023 6:02 A M REAL ESTATE PROFESSIONAL Height 165.1 cm (5' 5) 07/26/2023 1:00 PM REAL ESTATE PROFESSIONAL Body Mass Index 26.01 07/26/2023 1:00 PM REAL ESTATE PROFESSIONAL documented in this encounter Discharge Instructions * Discharge Instructions* Jorje Kendall RN - 08/04/2023 6:57 AM REAL ESTATE PROFESSIONAL Maximum acetaminophen (Tylenol) dose from all sources should not exceed 4 grams (4000 mg) per day. You last had 975 mg at 6:56 AM; do not take Tylenol products again until after 12:[address] [facility]IV[facility] PHONE NUMBER: [phone] [facility] ESTATE PROFESSIONAL * Attachments The following attachments cannot be sent through Care Everywhere. * (s) After Anesthesia (Sleep Medicine) (Upper Sor[place]) documented in this encounter Medications at Time [...] sleep fluticasone (FLONASE) 50 MCG/ACT nasal spray [place] 2 sprays in nostril daily folic acid [...] Inject 16 Units Subcutaneous every morning 11/05/2018 letrozole (FEMARA) 2.5 MG tablet Take 2.5 mg by mouth daily lidocaine (XYLOCAINE) 5 % external ointmentIndications:Hem orrhoids, [...] moderate to severe pain 12 tablet 08/04/2023 senna-docusate (SENOKOT-S/PERICOLACE) 8.6-50 MG tablet Take 1-4 tablets by mouth 2 times daily as needed for constipation valACYclovir (VALTREX) 500 MG tablet Take 500 mg by mouth as needed documented as of this encounter Progress Notes * Libby Jaime RN - 08/04/2023 5:50 AM CST Patient had Medtronic bladder stimulator. Patient reported pre operatively that she left the remote home. Patient has brief on. Libby Jaime RN on 08/04/2023 at 5:51 AM ESTATE PROFESSIONAL documented in this encounter Miscellaneous Notes * Brief Op Note - Ever Zee MD - 08/04/2023 8:48 AM CST [facility] Brief Operative Note Pre-operative diagnosis: [...] Implants: * No implants in log * ESTATE PROFESSIONAL * Op Note - Ever Zee MD [...] SPECIMEN: right posterior hemorrhoid. Kiera Zee MD ESTATE PROFESSIONAL documented in this encounter Plan of Treatment Not on file documented as of this encounter Procedures Procedure Name Priority Date/Time Associated Diagnosis Comments GLUCOSE BY METER Routine 08/04/2023 9:05 AM REAL ESTATE PROFESSIONAL SURGICAL PATHOLOGY EXAM Routine 08/04/2023 8:19 AM REAL ESTATE PROFESSIONAL HEMORRHOIDECTOMY, INTERNAL 08/04/2023 7:38 AM REAL ESTATE PROFESSIONAL Prolapsed internal hemorrhoids, grade 3 Screen for colon cancer COLONOSCOPY 08/04/2023 7:38 AM REAL ESTATE PROFESSIONAL Prolapsed internal hemorrhoids, grade 3 Screen for colon cancer COLONOSCOPY Routine 08/04/2023 7:25 AM REAL ESTATE PROFESSIONAL GLUCOSE BY METER Routine 08/04/2023 6:50 AM REAL ESTATE PROFESSIONAL LAB RESULT - HIM SCAN 07/25/2023 12:00 AM REAL ESTATE PROFESSIONAL EKG CARDIAC - HIM SCAN 07/25/2023 12:00 AM REAL ESTATE PROFESSIONAL documented in this encounter Results * (ABNORMAL) Glucose by meter (08/04/2023 9:05 AM REAL ESTATE PROFESSIONAL) GLUCOSE BY METER POCT 180(H) 70 - 99 mg/dL 08/04/2023 9:13 AM REAL ESTATE PROFESSIONAL [facility] LABORATORY POC Blood, Capillary BLOOD SPECIMEN / Unknown 08/04/2023 9:05 AM REAL ESTATE PROFESSIONAL 08/04/2023 9:13 AM REAL ESTATE PROFESSIONAL Ever [facility] POCT RH LABORATORY POC [facility] Acute Care Lab [address] [facility] Lab (1st floor, no room number) [place] [address], [facility] [phone] * Surgical Pathology Exam (08/04/2023 8:19 AM REAL ESTATE PROFESSIONAL) Case Report Surgical Pathology Report ? Case: [id number] ? Authorizing Provider: ??Ever Zee MD ?? Collected: ? 08/04/2023 08:19 AM ? Ordering Location: ? [facility] ?? Received: ?08/04/2023 08:44 AM ? Main OR ? Pathologist: ? Mario Boo MD ? Specimen: ?Rectum, Right posterior hemorroid ? 08/07/2023 1:17 PM [facility] Final Diagnosis A(1). Anal/Rectal mucosa and soft tissue, Right posterior, excision: - Polypoid colonic mucosa with prominent underlying blood vessels consistent with hemorrhoidal tissue. - Negative for dysplasia or malignancy. 08/07/2023 1:17 PM [facility] Clinical Information Procedure: INTAROPERATIVE Colonoscopy WITH EXAM UNDER ANESTHESIA OF RECTUM WITH HEMORROIDECTOMY Pre-op Diagnosis: Prolapsed internal hemorrhoids, grade 3 [K64.2] Screen for colon cancer [Z12.11] Post-op Diagnosis: K64.2 - Prolapsed internal hemorrhoids, grade 3 [ICD-10-CM] Z12.11 - Screen for colon cancer [ICD-10-CM] 08/07/2023 1:17 PM [facility] Gross Description A(1). Rectum, Right posterior [...] specimen (MARTIR Jones (ASCP) 08/07/2023 1:17 PM REAL ESTATE PROFESSIONAL LABORATORY Microscopic Description Microscopic examination was performed. 08/07/2023 1:17 PM REAL ESTATE PROFESSIONAL LABORATORY Performing Labs The technical component of this testing was completed at [facility] 08/07/2023 1:17 PM REAL ESTATE PROFESSIONAL LABORATORY Case Images 08/07/2023 1:17 PM REAL ESTATE PROFESSIONAL LABORATORY Tissue RECTUM PART / Unknown 08/04/2023 8:19 AM REAL ESTATE PROFESSIONAL 08/04/2023 8:44 AM REAL ESTATE PROFESSIONAL Ever [facility] Acute Care Lab [address] Lab (1st floor, no room number) [place] [address], [facility] [phone] * COLONOSCOPY (08/04/2023 7:25 AM REAL ESTATE PROFESSIONAL) COLONOSCOPY [facility] Patient Name: Maryam Cortez ?Procedure [...] ?Olympus, Pediatric Colonoscope, Model # PCF-H190DL, ?Censitrac #[id number] was introduced through the ?anus with the [...] in this report are preliminary and upon network services project manager review may be revised to meet current compliance requirements. EVER ZEE MD 08/04/2023 8:47:30 AM I was physically present for the entire viewing portion of the exam. EVER ZEE MD Number of Addenda: 0 Note Initiated On: 08/04/2023 7:25 AM MRN: ?[id number] Procedure Date: ? 08/04/2023 7:25:15 AM Total Procedure Duration: 0 hours 3 minutes 40 seconds Estimated Blood Loss: ? Scope In: 7:47:47 AM Scope Out: 7:51:27 AM RADIOLOGY RESULTS 08/04/2023 7:25 AM REAL ESTATE PROFESSIONAL Ever Zee MD PROCEDURES RADIOLOGY RESULTS * (ABNORMAL) Glucose by meter (08/04/2023 6:50 AM REAL ESTATE PROFESSIONAL) GLUCOSE BY METER POCT 182(H) 70 - 99 mg/dL 08/04/2023 6:57 AM REAL ESTATE PROFESSIONAL [facility] LABORATORY POC Comment:Dr/RN Notified Blood, Capillary BLOOD SPECIMEN / Unknown 08/04/2023 6:50 AM REAL ESTATE PROFESSIONAL 08/04/2023 6:57 AM REAL ESTATE PROFESSIONAL Ever Zee MD LAB - BEAK[facility] POCT LABORATORY [facility] Acute Care Lab [address] Lab (1st floor, no room number) [place] [address], [facility] [phone] * LAB RESULT - HIM SCAN (07/25/2023 12:00 AM REAL ESTATE PROFESSIONAL) 07/25/2023 Provider Outside NON-BEAKER LAB TE STING * EKG CARDIAC - HIM SCAN (07/25/2023 12:00 AM REAL ESTATE PROFESSIONAL) 07/25/2023 Provider Outside ECG ORDERABLES documented in [...] 4 grams/day., Pre-procedure $Given 08/04/2023 6:56 AM REAL ESTATE PROFESSIONAL 975 mg fentaNYL (PF) (SUBLIMAZE) injection 25 [...] Mon08/04/23 at 0840 Restarted 08/04/2023 7:38 AM REAL ESTATE PROFESSIONAL $New Bag 08/04/2023 6:52 AM REAL ESTATE PROFESSIONAL 10 mL/hr lactated ringers infusion at 100 [...] after each dose. $Given 08/04/2023 9:10 AM REAL ESTATE PROFESSIONAL 1 mg naloxone (NARCAN) injection 0.2 mg [...] Recently Administered Medications Times are shown in REAL ESTATE PROFESSIONAL. Scheduled Medication Order 08/02/2023 08/03/2023 08/04/2023 acetaminophen [...] ll documented in this encounter Care Teams Supervisor Farm Equipment Maintenance Relationship Specialty Start Date End Date Lina Meléndez MD [facility] & [address] [address] PCP - General Internal Medicine 12/26/14 Rhoda Sarabia I [address] [place] [id number] Fund Manager Dietitian, Registered 02/20/20 documented as of this encounter
--- OUTSIDE RECORDS SUMMARY | 2023-11-07 12:32 | XMS_ITS | Clinical Summary ---
Author Name Unknown Organization [place] Address [address] [place] [address] Care Team Providers Care Industrial Tech Instructor Name Role Phone Lina Meléndez MD Primary Care Provider JuabRhoda I Unavailable Allergies Active Allergy Reactions Criticality [...] Active fluticasone (FLONASE) 50 MCG/ACT nasal spray [place] 2 sprays in nostril daily Active valACYclovir [...] Created by Conversion Osteoarthritis Overview: Created by [employer] Annotation: Dec 29 2006 3:46PM - Jojo Faustin: DJD Replacement Utility updated for latest IMO load Lower Back Pain Overview: Created by [employer] Annotation: Dec 29 2006 3:46PM - Jojo [...] Comments Blood Pressure 153/88 08/04/2023 11:00 AM COMPUTER AIDED DRAFTER Pulse 79 08/04/2023 11:00 AM COMPUTER AIDED DRAFTER Temperature 36.1 ??C (97 ??F) 08/04/2023 11:00 AM COMPUTER AIDED DRAFTER Respiratory Rate 18 08/04/2023 11:00 AM COMPUTER AIDED DRAFTER Oxygen Saturation 100% 08/04/2023 11:00 AM COMPUTER AIDED DRAFTER Inhaled Oxygen Concentration - - Weight 70.9 kg (156 lb 4.8 oz) 08/04/2023 6:02 A M COMPUTER AIDED DRAFTER Height 165.1 cm (5' 5) 07/26/2023 1:00 PM COMPUTER AIDED DRAFTER Body Mass Index 26.01 07/26/2023 1:00 PM COMPUTER AIDED DRAFTER Plan of Treatment Health Maintenance Due Date [...] A1C 03/19/2020 12/18/2019, 03/11/2009 LIPID 12/17/2020 12/18/2019 COVID-19 Vaccine ( season) 2023 03/29/2023, 10/26/2022, 10/26/2022, Additional history exists PHQ-2 (once per calendar year) 2023 DTAP/TDAP/TD IMMUNIZATION (2 - Td or Tdap) 08/22/2024 08/22/2014, 01/22/2002, 01/22/2002, Additional history exists Pneumococcal Vaccine: 65+ Years Completed 06/07/2018, 08/22/2014, 06/10/2010 ZOSTER IMMUNIZATION Completed 10/10/2018, 06/04/2018, 03/11/2009 INFLUENZA VACCINE Completed 03/15/2023, , 03/31/2021, Additional history exists COLONOSCOPY Discontinued 08/04/2023, 08/04/2023 [...] Diagnosis Comments COLONOSCOPY Routine 08/04/2023 7:25 AM COMPUTER AIDED DRAFTER LIPID PROFILE Routine 12/18/2019 HEMOGLOBIN A1C Routine 12/18/2019 from Last 3 Months or Most Recently Relevant to Health Maintenance Results * COLONOSCOPY (08/04/2023 7:25 AM COMPUTER AIDED DRAFTER) COLONOSCOPY [facility] Patient Name: Maryam Ella Cortez ?Procedure Date: [...] ?Olympus, Pediatric Colonoscope, Model # PCF-H190DL, ?Censitrac #[id number] was introduced through the ?anus with the [...] criteria for high risk CPT copyright 2021 [employer]. All rights reserved. The codes documented in this report are preliminary and upon state assessed properties director review may be revised to meet current compliance requirements. EVER ZEE MD 08/04/2023 8:47:30 AM I was physically present for the entire viewing portion of the exam. EVER ZEE MD Number of Addenda: 0 Note Initiated On: 08/04/2023 7:25 AM MRN: ?[id number] Procedure Date: ? 08/04/2023 7:25:15 AM Total Procedure Duration: 0 hours 3 minutes 40 seconds Estimated Blood Loss: ? Scope In: 7:47:47 AM Scope Out: 7:51:27 AM RADIOLOGY RESULTS 08/04/2023 7:25 AM COMPUTER AIDED DRAFTER Ever Zee MD PROCEDURES RADIOLOGY RESULTS * Lipid Profile (12/18/2019) Cholesterol 154 90 - 200 mg/dL [facility] Triglycerides 53 40 - 197 mg/dL [facility] HDL Cholesterol 106 >=50 mg/dL [facility] LDL Cholesterol Calculated 37 <100 mg/dL [facility] Blood specimen (specimen) 12/18/2019 Narrative [facility] - 12/18/2019 LAB RESULTS BIM Patient Reported LAB - BLOOD ORDERABL ES Performing Organization Address City/[facility]/ZIP Co de Phone Number [facility] [address] [place] [address], [facility] [phone] * (ABNORMAL) Hemoglobin A1c (12/18/2019) Hemoglobin A1C 7.3(A) <=6.9 % [facility] Blood specimen (specimen) 12/18/2019 Narrative [facility] - 12/18/2019 LAB RESULTS BIM Provider Outside LAB - BLOOD ORDERABL ES Performing Organization Address [facility]/ZIP Co de Phone Number [facility] [address] [place] [address], [facility] [phone] from Last 3 Months or Most Recently Relevant to Health Maintenance Care Teams Industrial Tech Instructor Relationship Specialty Start Date End Date Lina Meléndez MD [facility] [address] [place] [address] PCP - General Internal Medicine 12/26/14 Rhoda Sarabia I [address] [place] [address] Zipper Setter Dietitian, Registered 02/20/20
--- OUTSIDE RECORDS SUMMARY | 2023-11-07 12:32 | XMS_ITS | Encounter Summary ---
Author Name Unknown Organization [place] Address [address] [place] [address] Care Team Providers Care Quiller Tender Name Role Phone Lina Meléndez MD Primary Care Provider Rincon, Dojessie Shivani Unavailable Reason for Visit * Auth/Cert (Routine) Specialty Diagnoses / Procedures Referred By Caroline clement Referred To Contact Surgery Diagnoses Prolapsed internal hemorrhoids, grade 3 Screen for colon cancer Prolapsed internal hemorrhoids, grade 3 [K64.2] Screen for colon cancer [Z12.11] Procedures DE COLONOSCOPY W/WO BRUSH/WASH DE HEMORRHOIDECTOMY W BANDING/LIGATION DE LIGATION INTERNAL HEMORRHOID, SINGLE, W/O IMAGING DE LIGATION INTERNAL HEMORRHOID, 2 OR MORE, W/O IMAGING INTAROPERATIVE Colonoscopy WITH EXAM UNDER ANESTHESIA OF RECTUM WITH HEMORROIDECTOMY Per[facility] [address] [place] [address] Referral ID Status Reason Start Date Expiration Date Visits Re quested Visits Authorized [id number] 1 1 Encounter Details Date Type Department Care Team (Late st Contact Info) Description 08/04/2023 7:30 AM TAIL BOARD WORKER - 08/04/2023 9:10 AM TAIL BOARD WORKER Surgery [facility] PeriOp [facility] [address] [place] [phone] Ever Zee MD [facility] [address] [address] INTAROPERATIVE Colonoscopy Surgery Details Date/Time Status Location OR Service Patient Class Case Class Case Type Trauma Case? 08/04/23 7:30 AM Posted RH OR OR 03 [facility]-Rectal Same Day Surgery Elective Panel 1 Procedure LRB Anes Op Region Wound Class Comments INTAROPERATIVE Colonoscopy N/A MAC Rectum II- Clean Contaminated WITH EXAM UNDER ANESTHESIA O F RECTUM WITH HEMORROIDECTOMY N/A MAC Rectum II-Clean Cont aminated Surgeon Surgeon Role Service Panel Ever Zee MD Primary Mercer-Rectal 1 documented in this encounter Social History [...] Comments Blood Pressure 135/83 08/04/2023 8:55 AM TAIL BOARD WORKER Pulse 86 08/04/2023 9:10 AM TAIL BOARD WORKER Temperature 36.2 ??C (97.2 ??F) 08/04/2023 8:42 AM CS T Respiratory Rate 16 08/04/2023 6:02 AM TAIL BOARD WORKER Oxygen Saturation 100% 08/04/2023 9:10 AM TAIL BOARD WORKER Inhaled Oxygen Concentration - - Weight 70.9 kg (156 lb 4.8 oz) 08/04/2023 6:02 A M TAIL BOARD WORKER Height 165.1 cm (5' 5) 07/26/2023 1:00 PM TAIL BOARD WORKER Body Mass Index 26.01 07/26/2023 1:00 PM TAIL BOARD WORKER documented in this encounter Discharge Instructions * Discharge Instructions* Jorje Kendall RN - 08/04/2023 6:57 AM TAIL BOARD WORKER Maximum acetaminophen (Tylenol) dose from all sources should not exceed 4 grams (4000 mg) per day. You last had 975 mg at 6:56 AM; do not take Tylenol products again until after 12:[address] VIVIENNE ZEE M.D. CLINIC PHONE NUMBER: [phone] [facility] BOARD WORKER * Attachments The following attachments cannot be sent through Care Everywhere. * (s) After Anesthesia (Sleep Medicine) (Grenadian) documented in this encounter Medications at Time [...] sleep fluticasone (FLONASE) 50 MCG/ACT nasal spray Celina 2 sprays in nostril daily folic acid [...] Jaime RN on 08/04/2023 at 5:51 AM BOARD WORKER documented in this encounter Miscellaneous Notes * Brief Op Note - Ever Zee MD - 08/04/2023 8:48 AM CST [facility] Brief Operative Note Pre-operative diagnosis: Prolapsed [...] Implants: * No implants in log * BOARD WORKER * Op Note - Ever Zee MD [...] SPECIMEN: right posterior hemorrhoid. Kiera Zee MD BOARD WORKER documented in this encounter Plan of Treatment Not on file documented as of this encounter Procedures Procedure Name Priority Date/Time Associated Diagnosis Comments GLUCOSE BY METER Routine 08/04/2023 9:05 AM TAIL BOARD WORKER SURGICAL PATHOLOGY EXAM Routine 08/04/2023 8:19 AM TAIL BOARD WORKER HEMORRHOIDECTOMY, INTERNAL 08/04/2023 7:38 AM TAIL BOARD WORKER Prolapsed internal hemorrhoids, grade 3 Screen for colon cancer COLONOSCOPY 08/04/2023 7:38 AM TAIL BOARD WORKER Prolapsed internal hemorrhoids, grade 3 Screen for colon cancer COLONOSCOPY Routine 08/04/2023 7:25 AM TAIL BOARD WORKER GLUCOSE BY METER Routine 08/04/2023 6:50 AM TAIL BOARD WORKER LAB RESULT - HIM SCAN 07/25/2023 12:00 AM TAIL BOARD WORKER EKG CARDIAC - HIM SCAN 07/25/2023 12:00 AM TAIL BOARD WORKER documented in this encounter Results * (ABNORMAL) Glucose by meter (08/04/2023 9:05 AM TAIL BOARD WORKER) GLUCOSE BY METER POCT 180(H) 70 - 99 mg/dL 08/04/2023 9:13 AM TAIL BOARD WORKER LABORATORY POC Blood, Capillary BLOOD SPECIMEN / Unknown 08/04/2023 9:05 AM TAIL BOARD WORKER 08/04/2023 9:13 AM TAIL BOARD WORKER Ever Zee MD [facility] Lab [address] [facility] Lab (1st floor, no room number) [place] [address], [facility] [phone] * Surgical Pathology Exam (08/04/2023 8:19 AM TAIL BOARD WORKER) Case Report Surgical Pathology Report ? Case: [id number] ? Authorizing Provider: ??Ever Zee MD ?? Collected: ? 08/04/2023 08:19 AM ? Ordering Location: ? [facility] ?? Received: ?08/04/2023 08:44 AM ? Main OR ? Pathologist: ? Mario Boo MD ? Specimen: ?Rectum, Right posterior hemorroid ? 08/07/2023 1:17 PM [facility] Final Diagnosis A(1). Anal/Rectal mucosa and soft tissue, Right posterior, excision: - Polypoid colonic mucosa with prominent underlying blood vessels consistent with hemorrhoidal tissue. - Negative for dysplasia or malignancy. 08/07/2023 1:17 PM [facility] Clinical Information Procedure: INTAROPERATIVE Colonoscopy WITH EXAM UNDER ANESTHESIA OF RECTUM WITH HEMORROIDECTOMY Pre-op Diagnosis: Prolapsed internal hemorrhoids, grade 3 [K64.2] Screen for colon cancer [Z12.11] Post-op Diagnosis: K64.2 - Prolapsed internal hemorrhoids, grade 3 [ICD-10-CM] Z12.11 - Screen for colon cancer [ICD-10-CM] 08/07/2023 1:17 PM [facility] Gross Description A(1). Rectum, Right [...] specimen (MARTIR Jones (ASCP) 08/07/2023 1:17 PM TAIL BOARD WORKER LABORATORY Microscopic Description Microscopic examination was performed. 08/07/2023 1:17 PM [facility] Performing Labs The technical component of this testing was completed at [facility] 08/07/2023 1:17 PM [facility] Case Images 08/07/2023 1:17 PM [facility] Tissue RECTUM PART / Unknown 08/04/2023 8:19 AM TAIL BOARD WORKER 08/04/2023 8:44 AM TAIL BOARD WORKER Ever Zee MD LAB - [facility] Acute Care Lab [address] [facility] Lab (1st floor, no room number) [place] [address] [phone] * COLONOSCOPY (08/04/2023 7:25 AM TAIL BOARD WORKER) COLONOSCOPY [facility] Patient Name: Maryam [...] ?Olympus, Pediatric Colonoscope, Model # PCF-H190DL, ?Censitrac #[id number] was introduced through the ?anus with the [...] criteria for high risk CPT copyright 2021 [employer]. All rights reserved. The codes documented in this report are preliminary and upon light cleaner review may be revised to meet current compliance requirements. EVER ZEE MD 08/04/2023 8:47:30 AM I was physically present for the entire viewing portion of the exam. EVER ZEE MD Number of Addenda: 0 Note Initiated On: 08/04/2023 7:25 AM MRN: ?[id number] Procedure Date: ? 08/04/2023 7:25:15 AM Total Procedure Duration: 0 hours 3 minutes 40 seconds Estimated Blood Loss: ? Scope In: 7:47:47 AM Scope Out: 7:51:27 AM RADIOLOGY RESULTS 08/04/2023 7:25 AM TAIL BOARD WORKER Ever Zee MD PROCEDURES RADIOLOGY RESULTS * (ABNORMAL) Glucose by meter (08/04/2023 6:50 AM TAIL BOARD WORKER) GLUCOSE BY METER POCT 182(H) 70 - 99 mg/dL 08/04/2023 6:57 AM TAIL BOARD WORKER LABORATORY POC Comment:/RN Notified Blood, Capillary BLOOD SPECIMEN / Unknown 08/04/2023 6:50 AM TAIL BOARD WORKER 08/04/2023 6:57 AM TAIL BOARD WORKER Ever Zee MD LAB - [facility] LABORATORY POC [facility] Lab [address] [facility] Lab (1st floor, no room number) [place] [address], [facility] [phone] * LAB RESULT - HIM SCAN (07/25/2023 12:00 AM TAIL BOARD WORKER) 07/25/2023 Provider Outside NON-BEAKER LAB TE STING * EKG CARDIAC - HIM SCAN (07/25/2023 12:00 AM TAIL BOARD WORKER) 07/25/2023 Provider Outside ECG ORDERABLES documented in [...] 4 grams/day., Pre-procedure $Given 08/04/2023 6:56 AM TAIL BOARD WORKER 975 mg BUPivacaine (MARCAINE) 0.5% preservative free injection PRN, Starting on Mon08/04/23 at 0813, Intra-procedure $Given 08/04/2023 8:13 AM TAIL BOARD WORKER 29.75 mLs Operative Site/Surgical Site fentaNYL (PF) [...] Mon08/04/23 at 0840 Restarted 08/04/2023 7:38 AM TAIL BOARD WORKER $New Bag 08/04/2023 6:52 AM TAIL BOARD WORKER 10 mL/hr lactated ringers infusion at 100 [...] after each dose. $Given 08/04/2023 9:10 AM TAIL BOARD WORKER 1 mg naloxone (NARCAN) injection 0.2 mg [...] at 0823, Intra-procedure $Given 08/04/2023 8:23 AM TAIL BOARD WORKER 400 mLs Operative Site/Surgi radha Site documented in this encounter Active and Recently Administered Medications Times are shown in TAIL BOARD WORKER. Scheduled Medication Order 08/02/2023 08/03/2023 08/04/2023 acetaminophen [...] ll documented in this encounter Care Teams Quiller Tender Relationship Specialty Start Date End Date Lina Meléndez MD [facility] [address] [place] [address] PCP - General Internal Medicine 12/26/14 Rhoda Sarabia I [address] [place] [address] Carpenter Repairer Dietitian, Registered 02/20/20 documented as of this encounter
--- OUTSIDE RECORDS SUMMARY | 2023-11-07 12:32 | XMS_ITS | Encounter Summary ---
Author Name Unknown Organization [facility] Address [address] [place] [address] Care Team Providers Care Sales And Customer Relations Rep Name Role Phone Lina Meléndez MD Primary [...] on filedocumented in this encounter Care Teams Sales And Customer Relations Rep Relationship Specialty Start Date End Date Lina Meléndez MD [facility] [address] [place] [address] PCP - General Internal Medicine 12/26/14 Rhoda Sarabia I [address] [place] [address] Oracle Application Architect Dietitian, Registered 02/20/20 documented as of this encounter
--- OUTSIDE RECORDS SUMMARY | 2023-11-07 12:32 | XMS_ITS | Continuity of Care Document ---
Author Name Unknown Organization [facility] Address [address] [place] [address] Phone Care Team Providers Care Remote Recruiter Name Role Phone Alexandro HARRISON, Gurinder Unavailable [...] on Encounter [facility], [address], [place], [place], [id number] , tel:[phone] [facility] Encounter for other specified surgical aftercare 4 Alexandro Montoya [facility], [address] [place] [address], [place], [place], [id number] , . tel:[phone] Referring Provider: Corona Pretty, Myton[facility] [address], [place], [address]. tel:[phone] [facility], [address], [place], [place], [id number] , [place] [phone] [facility] Encounter for other specified surgical aftercare 3 Alexandro Montoya [facility], [address] [place] [address] 600, [place], [place], [id number] , [place]. [phone] Referring Provider: Corona Pretty [facility] [address], [place], [address]. tel:[phone] [facility], [address], [place], [place], [id number] , [place] [phone] [facility] [place] Spinal stenosis, lumbar region with neurogenic claudication 3 Kimberly Finney. [address] [place] [address] 600, [place], [place], [id number] , . [phone] Referring Provider: Corona Pretty [facility] [address], [place], [address]. tel:[phone] [facility], [address], [place], [place], [id number] , [place] tel: [phone] [facility] No Information 3 Mehbod Amir. [facility], [address], [place], [id number] , [place]. tel: [phone] [facility], [address], [place], [place], [address] , [place] tel: [phone] [facility] No Information 3 Kimberly Finney. [address], [place], [place], [id number] , [place]. tel: [phone] Referring Provider: Corona Pretty, [facility] [address] [facility], [place], [address]. tel:[phone] [facility], [address], [place], [id number] , [place] tel: [phone] [facility] No Information 3 Mehbod Amir. [facility], [address], [place], [id number] , [place]. tel: [phone] Referring Provider: Corona Pretty, [facility] [address] [facility], [place], [address]. tel:[phone] [facility], [address], [place], [id number] , [place] tel: [phone] [facility] No Information 3 Mehbod Amir. [facility], [address], [place], [id number] , [place]. tel: [phone] Office/Outpa tient Visit,Est, Mod [facility], [address], [place], [place], [id number] , [place] tel: [phone] [facility] Spinal stenosis, lumbar region with neurogenic claudication Sep- 3 Mehbod Amir. [facility], [address], [place], [place], [id number] , [place]. tel:[phone] Referring Provider: Corona Pretty, [address], [place], [address]. tel:[phone] Office/Outpa tient Visit,New, Mod [facility], [address], [place], [place], [id number] , [place] tel: [phone] [facility] Spinal stenosis, lumbar region with neurogenic claudication 2 Mehbod Amir. [facility], [address] [place] [address] [address], [place], [place], [id number] , [place]. tel: [phone] Referring Provider: Corona Pretty, [address], [place], [address]. tel:[phone] Office/Outpa tient Visit,Est, Mod [facility], [address], [place], [place], [id number] , [place] tel: [phone] [facility] Other forms of scoliosis, lumbar regionPost Op - Normal Follow-up 8 Mehbod Amir. [facility], [address] [place] [address] [address], [place], [place], [id number] , [place]. tel:[phone] Referring Provider: Corona Pretty, [address], [place], [address]. tel:[phone] Office/Outpa tient Visit,Est, Low [facility], [address], [place], [place], [address] , [place] tel: [phone] [facility] Encounter for other specified surgical aftercareArthrode sis status 8 Mehbod Amir. [facility], [address] [place] [address] [address], [place], [place], [address] , [place]. tel:[phone] Referring Provider: Corona Pretty, [address], [place], [address]. tel:[phone] Office/Outpa tient Visit,Est, Mod [facility], [address], [facility] [place], [id number] , [place] tel: [phone] [facility] Spinal stenosis, lumbar region NOS Mehbod Amir. [facility], [address] [place] [address], [place], [place], [id number] , [place]. tel: [phone] Referring Provider: Cornoa Pretty, [facility], [place], [address]. tel:[phone] [facility], [address], [place], [place], [id number] , [place] tel: [phone] [facility] Encounter for follow-up examination after completed treatment for conditions other than malignant neoplasm Mehbod Amir. [facility], [address] [place] [address], [place], [place], [id number] , [place]. tel: [phone] Referring Provider: Corona Pretty [facility], [place], [address]. tel:[phone] [facility], [address], [place], [place], [address] , [place] tel: [phone] [facility] Spinal stenosis, lumbar region 7 Kimberly Finney. [address] [place] [address], [place], [place], [id number] , [place]. tel: [phone] Referring Provider: [facility], [place], [address]. tel:[phone] [facility], [address], [place], [place], [address] , [place] tel: [phone] [facility] No Information Mehbod Amir. [facility], [address] [place] [address], [place], [place], [id number] , [place]. tel: [phone] Referring Provider: Corona Pretty [facility], [place], [address]. tel:[phone] Office/Outpa tient Visit,Est, Mod [facility], [address], [place], [place], [address] , [place] tel: [phone] [facility] Spinal stenosis, lumbar region Apr-0 3-201 7 Mehbod Amir. [facility], [address] [place] [address], [place], [place], [address] , [place]. tel: [phone] Referring Provider: Corona Pretty, [facility] [address], [place], [address]. tel:[phone] [facility], [address], [place], [place], [id number] , [place] tel: [phone] [facility] [place] Spinal stenosis, lumbar region Sep- 9 6 [facility] [address] [place] [address], [place], [place], [address] , [place]. tel: [phone] Referring Provider: Corona Pretty [facility] [address] , [place], [address]. tel:[phone] [facility], [address], [place], [place], [address] , [place] tel: [phone] [facility] [place] Spinal stenosis, lumbar region Aug-0 8-201 6 Mehbod Amir. [facility], [address] [place] [address], [place], [place], [id number] , [place]. tel: [phone] Referring Provider: [facility], [place], [address]. tel:[phone] [facility], [address], [place], [place], [address] , [place] tel: [phone] [facility] No Information Sergei- 4201 6 Mehbod Amir. [facility], [address] [place] [address], [place], [place], [id number] , [place]. tel: [phone] Referring Provider: Corona Pretty, [facility] [address] , [place], [address]. tel:[phone] Office/Outpa tient Visit,New, Mod [facility], [address], [place], [place], [address] , [place] tel:[phone] [facility] Marge OverweightSpinal stenosis, lumbar region 201 6 Alexandro Paigecass. [facility], [address], [place], [place], [address] , [place]. tel:[phone] Referring Provider: Corona Pretty, [address], [place], [address]. tel:[phone] Family History Family Member Type Diagnosis Age At Onset No Information Payers Payer name Insurance type Covered constitution party ID Valentin harrell(s) [employer] [facility] 2021 CI [id number] Social History Type Description Quantity Date Captured [...]
--- OUTSIDE RECORDS SUMMARY | 2023-11-07 12:33 | XMS_ITS ---
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
--- OUTSIDE RECORDS SUMMARY | 2023-11-07 12:33 | XMS_ITS | Referral Summary ---
Author Name Unknown Organization [facility] Address [address] [place] [address] Care Team Providers Care Engraved Roller Inspector Name Role Phone Unavailable Primary Care Provider Unavailabl e Source Comments Patient records contain information from all sites at [facility]. For routine questions regarding patient records, call [phone] during business hours, M-F 8:00 AM - 5:00 PM Central Time. Record requests for emergency care only can be directed to [phone] at any time.[facility] Encounters Date Type Department Care Team Description 09/11/2023 4:15 PM CDT External Outreach Division of Nephrology and Hypertension in [place], [place] [address] [place] [address] Joshua Lopez Jr., D.O. Hypertension And Chronic [...] from 12/21/2021:Stage Unknown(pT1b, pNX, cM0, G2, ER+, ND+, HER2-, Oncotype DX score: 17) - Unsigned [...] often do you attend chur ch or christian services? More than 4 times per year [...] medical care, and heating? Somewhat hard 02/12/2022 [facility] [place] [facility] Occupat ional Health - Occupational Stress [...] Name Priority Date/Time Associated Diagnosis Comments EXTI CREATININE WITH EGFR, S/P Routine 05/05/2023 8:55 AM LANDSCAPE SUPERVISOR OUTSIDE MG MAMMOGRAM Routine 12/21/2021 10:00 AM [...]
--- OUTSIDE RECORDS SUMMARY | 2023-11-07 12:33 | XMS_ITS | Clinical Summary ---
Author Name Unknown Organization [facility] Address [address] [place] [address] Care Team Providers Care Domestic Technician Name Role Phone Unavailable Primary Care Provider Unavailabl e Source Comments Patient records contain information from all sites at [facility]. For routine questions regarding patient records, call [phone] during business hours, M-F 8:00 AM - 5:00 PM Central Time. Record requests for emergency care only can be directed to [phone] at any time.[facility] Allergies Active Allergy Reactions Criticality Noted [...] Active flash glucose scanning reader (FREESTYLE KYLIE) [facility] 12/31/2021 Active flash glucose sensor (FREESTYLE KYLIE) [...] from 12/21/2021:Stage Unknown(pT1b, pNX, cM0, G2, ER+, GA+, HER2-, Oncotype DX score: 17) - Unsigned Hyponatremia 03/08/2021 Diabetes Mellitus Type 2 01/31/2009 Overview: DM II [Diabetes mellitus type II] Hypertension And Chronic Kidney Disease Stage 1 To 4 01/31/2009 Overview: Hypertension Encounters Date Type Department Care Team Description 09/11/2023 4:15 PM CDT External Outreach Division of Nephrology and Hypertension in [place], [place] [address] [place] [address] Joshua Lopez Jr., D.O. Hypertension And Chronic [...] medical care, and heating? Somewhat hard 02/12/2022 [facility] [place] of Occupat ional Health - Occupational Stress [...] or slept in a usp (including now)? No 02/12/2022 Nutrition Answer Date [...] 3-dose series) 2007 Hemoglobin A1C 06/18/2020 12/18/2019 COVID-19 Vaccine ( season) 2023 03/29/2023, 10/26/2022, 03/10/2022, Additional history exists Depression Screening (Annual PHQ-2) 06/26/2023 Fall Risk Screen (Annual) 06/26/2023 Creatinine Level (Kidney Function Test) 05/05/2024 05/05/2023, 05/04/2023 DTaP,Tdap,and Td Vaccines (3 - Td or Tdap) 08/22/2024 08/22/2014, 01/22/2002, 01/22/2002 Office Visit for Blood Pressure Check / Re-check 09/10/2024 09/11/2023 Pneumococcal vaccine (65+ years) Completed 06/07/2018, 08/22/2014, 06/10/2010 Zoster Vaccines Completed 10/10/2018, 05/26, 03/11/2009 Mammogram Discontinued 12/21/2021, 10/24, 11/02/2021, Additional history exists Influenza Vaccine Completed 03/15/2023, , 03/31/2021, Additional history exists Colonoscopy Discontinued 08/04/2023 Colonoscopy Discontinued 08/04/2023 Colorectal Cancer Screening Discontinued Colorectal Cancer Surveillance Discontinued CT Colonography Discontinued CT Colonography Discontinued Cologuard Discontinued FIT Discontinued HPV Vaccines Aged Out No longer eligi ble based on patient's age to complete this topic Procedures Procedure Name Priority Date/Time Associated Diagnosis Comments EXTI CREATININE WITH EGFR, S/P Routine 05/05/2023 8:55 AM HYDRO ELECTRIC STATION OPERATOR OUTSIDE MG MAMMOGRAM Routine 12/21/2021 10:00 AM [...] Provider Not In System IMG BI PROCEDURES IINJ NA from Last 3 Months or Most Recently Relevant to Health Maintenance
--- OUTSIDE RECORDS SUMMARY | 2023-11-07 12:33 | XMS_ITS ---
Author Name Unknown Organization [facility] Address [address] [place] [address] Care Team Providers Care Scarfing Machine Operator Name Role Phone Unavailable Unavailable Unavailable Surgery Details Not on file Complications Check Surgery Details section. Procedure Estimated Blood Loss Check Surgery Details section. Procedure Findings Check Surgery Details section. Procedure Specimens Taken Check Surgery Details section.
--- OUTSIDE RECORDS SUMMARY | 2023-11-07 12:33 | XMS_ITS | Encounter Summary ---
Author Name Unknown Organization [facility] Address [address] [place] [address] Care Team Providers Care Production Clerk Name Role Phone Unavailable Primary Care Provider Unavailabl e Reason for Visit * Appointment Request (Routine) - Closed Specialty Diagnoses / Procedures Referred By Caroline clement Referred To Contact Nephrology and Hypertension Referral ID Status Reason Start Date Expiration Date Visits Re quested Visits Authorized [id number] Closed 08/10/2023 08/09/2024 1 1 Encounter Details Date Type Department Care Team (Latest Contact Info) Description 09/11/2023 4:15 PM CDT External Outreach Division of Nephrology and Hypertension in [place], [place] [address] [place] [address] Joshua Lopez Jr., D.O. [address] [place] [address] Hypertension And Chronic Kidney Disease Stage 1 [...] How often do you attend chur or restorationism services? More than 4 times per year 02/12/2022 Do you belong to any clubs o r organizations such as scientology groups, unions, fraternal or athletic groups, or [...] medical care, and heating? Somewhat hard 02/12/2022 [facility] of Occupat ional Health - Occupational Stress [...] encounter Progress Notes * Joshua Lopez Jr., D.Nicolas. - 09/11/2023 4:15 PM CDT Referring Provider: DR Rome SUBJECTIVE REASON FOR VISIT [place] out reach [facility] Follow-up regards severe [...] Rfl: flash glucose scanning reader (FREESTYLE KYLIE) [facility], , Disp: , [...]
--- NOTE | 2023-11-07 14:24 | W.ANESCHARGE ---
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
== END 2023-11-07 12:30 | disposition home or self-care (01) ==
LOC: OP CLINIC 12:30
PROVIDERS: PCP Internal Medicine; Visit Provider Surgery
DX: R19.5 Other fecal abnormalities (principal); K64.9 Unspecified hemorrhoids; K63.5 Polyp of colon
CPT/HCPCS: 00811; 45385; 88305; 99100; J2704

== ENCOUNTER 2024-01-18 07:48 | Outpatient (CLI) | payer MEDICARE, SELFPAY ==
--- OUTSIDE RECORDS SUMMARY | 2024-01-18 07:50 | XMS_ITS | Clinical Summary ---
Author Organization [facility] Address [place], [place] [address] Care Team Providers Care Safety Trainer Name Role Phone Lina Meléndez MD Primary Care Provider [phone] Allergies Active Allergy Reactions Criticality Noted Date [...] bedtime. 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[employer]) 12/31/2021 Active bd insulin pen needle uf [...] Encounters Date Type Department Care Team Description 01/17/2024 Telephone [facility] [address] [place] [address] Corona Dixon MD Questions 01/15/2024 Telephone [facility] [address] [place] [address] Corona Dixon MD nuc med 01/01/2024 2:45 PM CDT Ancillary Procedure [facility] [address] [place] [address] 01/01/2024 1:40 PM CDT Office Visit [facility] [address] [place] [address] Corona Dixon MD Musculoskeletal Problem (Follow up left knee pain/Consult right elbow pain) 01/01/2024 Travel 11/08/2023 Lab Requisition [facility] [phone] Yoeltte Schafer MD 11/03/2023 3:15 PM CDT Ancillary Procedure [facility] [address] [place] [address] 11/03/2023 2:15 PM CDT Office Visit [facility] [address] [place] [address] Stevan Nixon MD Musculoskeletal Problem (For about 2 months having LEFT Knee pain (on both sides of knee cap) and swelling. Having some heat to area too./Had total knee replacement early . ) 11/03/2023 Travel 11/01/2023 Telephone [facility] [address] [place] [address] Corona Dixon MD Appointment Request (Knee appointment ) from Last 3 Months Immunizations Name Administration Dates Next Due Influenza, IIV4 04/20/2016 Social History Tobacco Use Types Packs/Day Years Used Date Smoking Tobacco: Never Passive Smoke Exposure: Never Smokeless Tobacco: Never Tobacco Cessation:Counseling Given: Yes Alcohol Use Standard Drinks/Week Comments [...] Sex Assigned at Female 08/31/2020 9:33 AM PROFILER HAND Gender Identity Female 08/31/2020 9:33 AM PROFILER HAND Sexual Orientation Straight 08/31/2020 9: 33 AM PROFILER HAND Obstetrics History Para Term AB IAB SAB Ectopic Multiple Livin g Live Births 6 6 5 1 0 0 0 0 0 5 Date Outcome GA Total Labor Labor/2nd/3rd Weight Sex Type Anes PTL Siri A1 A5 Name Clin Term Term Term Term Term Comments 1 , 1 Last Filed Vital Signs Vital Sign Reading Time Taken Comments Blood Pressure 154/76 01/01/2024 1:42 PM CDT Pulse 64 01/01/2024 1:42 PM CDT Temperature 36.7 ??C (98 ??F) 01/01/2024 1:42 PM CDT Respiratory Rate 16 05/05/2023 7:27 AM PROFILER HAND Oxygen Saturation 98% 01/01/2024 1:42 PM CDT Inhaled Oxygen Concentration - - Weight 73.6 kg (162 lb 3.2 oz) 11/03/2023 2:25 P M CDT Height 165.1 cm (5' 5) 06/07/2023 2:05 PM PROFILER HAND Body Mass Index 26.99 06/07/2023 2:05 PM PROFILER HAND Plan of Treatment Upcoming Encounters Date Type Department Care Team (Late st Contact Info) Description 02/13/2024 1:45 PM CDT Office Visit [facility] [address] [place] [address] eRx Fink DPM [address] [place] [address] Health Maintenance Due Date Last Done Comments [...] history exists Medical Devices Implanted Type Area Broadcast Technician Device Identifier Shelf Expiration Date Model / Serial / Lot [id number] 1-4mm 30cc Medtronic Chips Canclls Freeze Dried Implanted:Qty: 1 on 12/06/2016 by Gurinder Mc MD at [facility] Explanted:at [facility] (Quantity not on file) Spine Medtronic Spine/Ortho 08/24/2021 [id number]# / [id number] / Spacer Lmbr [id number] [place] Convex Stra Plif - [id number] Implanted:Qty: 1 on 12/06/2016 by Gurinder Mc MD at [facility] Spine [employer] 07/26/2026 [id number] # / / [id number] Matrix 3cc Gilpin Dbf Putty Dbm Implanted:Qty: 1 on 12/06/2016 by Gurinder Mc MD at [facility] Explanted:at [facility] (Quantity not on file) Spine Medtronic Spine/Ortho 09/08/2018 [id number]# / [id number] / Screw Lmbr Post 5.5x40mm Vitality Va - [id number] Implanted:Qty: 1 on 12/06/2016 by Gurinder Mc MD at [facility] Spine [employer] Spine .. 032# / / Screw Lmbr Post 5.5x45mm Vitality Va - [id number] Implanted:Qty: 2 on 12/06/2016 by Gurinder Mc MD at [facility] Spine [employer] Spine .. 033# / / Set Screw Lmbr 5.5-6mm Vitality Shear Off - [id number] Implanted:Qty: 4 on 12/06/2016 by Gurinder Mc MD at [facility] Spine [employer] Spine 11. 001# / / Avni Lmbr 40x5.5mm Vitality Cvd Titnm - [id number] Implanted:Qty: 2 on 12/06/2016 by Gurinder Mc MD at [facility] Spine [employer] Spine 15. 005# / / Spacer Lmbr [id number] [place] Convex Stra Plif - [id number] Implanted:Qty: 1 on 12/06/2016 by Gurinder Mc MD at [facility] Spine [employer] [id number] # / / Screw Lmbr Post 6.5x40mm Vitality Va - [id number] Implanted:Qty: 1 on 12/06/2016 by Gurinder Mc MD at [facility] Spine [employer] Spine . 074# / / .[id number] Double Ended K-Wire Implanted:Qty: 2 on 12/03/2018 by Rex Fink DPM at [facility] Right: Foot N/A / / Interstim Basic Evaluation Lead Implanted:Qty: 1 on 09/28/2022 by Michelle Colmenares DO at [facility] Sacr Medtronic 01/26/2024 [id number] / / [id number] Interstim Basic Evaluation Kit Implanted:Qty: 1 on 09/28/2022 by Michelle Colmenares DO at [facility] Sacr Medtronic 08/27/2023 [id number] / / [id number] Interstim X Surescan Mri Lead And Smart Claims Adjuster - [id number] Implanted:Qty: 1 on 10/18/2022 by Michelle Colmenares DO at [facility] Right: Buttock Medtronic Pain Therapy 02/07/2024 [id number] / [id number] / Lead Kit 4.32mm Spacing 28cm Length Interstim - [id number] Implanted:Qty: 1 on 10/18/2022 by Michelle Colmenares DO at [facility] Right: Buttock Medtronic Pain Therapy 01/17/2024 [id number] / / [id number] Envlp Neuro Tyrx Absorb Antibacterial - [id number] Implanted:Qty: 1 on 10/18/2022 by Michelle Colmenares DO at [facility] Right: Buttock Medtronic 03/20/2023 [id number] / / [id number] Spacer Lmbr [id number] [place] Convex Stra Tlif - [id number] Implanted:Qty: 1 on 05/03/2023 by Guridner Mc MD at [facility] N/A: Spine [employer] 09/13/2026 [id number] / / [id number] Avni Lmbr 95x5.5mm Vitality Cvd Titnm - [id number] Implanted:Qty: 1 on 05/03/2023 by Gurinder Mc MD at [facility] N/A: Spine [employer] Spine [id number]. 016 / / Avni Lmbr 90x5.5mm Vitality Cvd Titnm - [id number] Implanted:Qty: 1 on 05/03/2023 by Gurinder Mc MD at [facility] N/A: Spine [employer] Spine 07.40930. 015 / / Set Screw Lmbr 5.5-6mm Vitality Torque - [id number] Implanted:Qty: 8 on 05/03/2023 by Gurinder Mc MD at [facility] N/A: Spine [employer] Spine 07.37654. 001 / / Screw Spinal 4.5x45mm Poly Tl Implanted:Qty: 1 on 05/03/2023 by Gurinder Mc MD at [facility] N/A: Spine [id number] / / Description:SCREW SPINAL 4.5 X45MM POLY TL Screw Spinal 5.5x45mm Poly Tl Implanted:Qty: 3 on 05/03/2023 by Gurinder Mc MD at [facility] N/A: Spine [id number] / / Description:SCREW SPINAL 5.5 X45MM POLY TL Bone 1-4mm 60cc Medtronic Fine Canclls Freeze Dried - [id number] Implanted:Qty: 1 on 05/03/2023 by Gurinder Mc MD at [facility] N/A: Spine Medtronic Spine/Ortho 09/21/2026 [id number] / [id number] / Bone Matrix 6cc Gilpin Dbf Putty Dbm - [id number] Implanted:Qty: 1 on 05/03/2023 by Gurinder Mc MD at [facility] N/A: Spine Medtronic Spine/Ortho 04/11/2025 [id number] / [id number] / Procedures Procedure Name Priority Date/Time Associated Diagnosis Comments XR ELBOW 3 VIEWS RIGHT Routine 01/01/2024 2:44 PM CDT Chronic pain of right elbow LAB TRACKING EVENT Routine 11/07/2023 1: 40 PM CDT PATH TISSUE EXAM Routine 11/07/2023 1:40 PM CDT XR KNEE 3 VIEWS LEFT Routine 11/03/2023 3:28 PM CDT Chronic pain of left knee EXPOSURE (BBF) ANTI HCV STAT 12/08/2016 1:07 AM CDT from Last 3 Months or Most Recently Relevant to Health Maintenance Results * XR ELBOW 3 VIEWS RIGHT (01/01/2024 2:44 PM CDT) Anatomical Region Laterality Modality ELBOW R Computed Radiogr aphy 01/03/2024 7:55 AM CDT Narrative 01/03/2024 7:55 AM CDT For Patients: ??As a result of the Cures Act, medical imaging exams and procedure reports are released immediately into your electronic medical record. ??You may view this report before your referring provider. ??If you have questions, please contact your health care provider. Indication: Elbow pain Technique: Right elbow 3 views Comparison: None Findings: Joint effusion is present. Multifocal hypertrophic spurring about the elbow. There is a chronic ossicle anteriorly measuring 1.4 cm. Posterior olecranon spur noted. Multiple densities adjacent to the lateral humeral epicondyle with thickening of the adjacent soft tissues. No acute fracture. 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 Chronic lateral epicondylitis and small posterior olecranon spur. Dictated by David Olson MD @ 01/03/2024 7:55:14 AM (Electronically Signed) Procedure Note David Olson MD - 01/03/2024 For Patients: As a result of the Cures Act, medical imagingexams and procedure reports are released immediately into your electronicmedical record. You may view this report before your referring provider.If you have questions, please contact your health care provider. Indication: Elbow pain Technique: Right elbow 3 views Comparison: None Findings: Joint effusion is present. Multifocal hypertrophic spurring about theelbow. There is a chronic ossicle anteriorly measuring 1.4 cm. Posteriorolecranon spur noted. Multiple densities adjacent to the lateral humeralepicondyle with thickening of the adjacent soft tissues. No acutefracture. 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 Chronic lateral epicondylitis and small posterior olecranon spur. Dictated by David Olson MD @ 01/03/2024 7:55:14 AM (Electronically Signed) Corona Dixon MD GENERAL IMAGING * LAB TRACKING EVENT (11/07/2023 1:40 PM CDT) Other (Other) Client Collect / Unknown 11/07/2023 1:40 PM CDT 11/08/2023 3:09 PM CDT Yolette Schafer MD LAB BILL ONLY [facility] [address] [place] [address], * PATH TISSUE EXAM (11/07/2023 1:40 PM CDT) Case Report Pathology Report ?Case: [id number] ? Authorizing Provider: ??Yolette Schafer MD ?Collected: ? 11/07/2023 1340 ? Ordering Location: ? [facility] ?Received: ?11/08/2023 1604 ? Pathologist: ? Harrison Puente ? IV, MD ? Specimens: ?? A) - Ascending Colon Biopsy ? B) - Transverse Colon Polyp ? C) - Descending Colon Polyp ? 11/10/2023 2:40 PM CDT [facility] Final Diagnosis A) COLON, ASCENDING, POLYPECTOMY: 1. Tubular adenoma 2. Negative for high grade dysplasia 3. Per the colonoscopy report: ?? a. Polyp size: 4 mm ?? b. Resection: Complete ?? c. Retrieval: Complete B) COLON, TRANSVERSE, POLYPECTOMIES: 1. Sessile serrated adenoma (3) 2. Negative for high grade dysplasia 3. Per the colonoscopy report: ?? a. Polyp sizes: 3 mm - 6 mm ?? b. Resection: Complete ?? c. Retrieval: Complete C) COLON, DESCENDING, POLYPECTOMIES: 1. Tubular adenomas (2) and sessile serrated adenomas (4) 2. Negative for high grade dysplasia 3. Per the colonoscopy report: ?? a. Polyp sizes: 5 mm - 13 mm ?? b. Resection: Complete ?? c. Retrieval: Complete 11/10/2023 2:40 PM CDT [facility] [employer] [facility] Comment Case seen in consultation with Dr. Puente. 11/10/2023 2:40 PM CDT [facility] [employer] [facility] Clinical Information Ms. Cortez is a 78 y.o. with positive Cologuard test who presents for screening colonoscopy. Colonoscopy findings: - One 4 mm polyp in the ascending colon. - Three 3 to 7 mm polyps in the transverse colon. - Six 5 to 13 millimeter polyps in the descending colon. 11/10/2023 2:40 PM CDT [facility] [employer] [facility] Gross Description A) Received in formalin are 3 goetz mucosal fragments ranging from 3 mm to 13 mm in greatest dimension, which are entirely submitted in one cassette. It is labeled with the patient's name and designated colon-ascendin g polyp. B) Received in formalin are 5 goetz mucosal fragments ranging from 3 mm to 26 mm in greatest dimension, which are entirely submitted in one cassette. It is labeled with the patient's name and designated colon-transver se polyps. C) Received in formalin are 24 gotez mucosal fragments ranging from 2 mm to 17 mm in greatest dimension, which are entirely submitted in 3 cassettes. It is labeled with the patient's name and designated colon-descendi ng polyps. Linda Schofield Mike 11/08/2023 4:14 PM 11/10/2023 2:40 PM CDT [facility] Microscopic Description The final diagnosis is based on microscopic examination of appropriate sections of all specimens. 11/10/2023 2:40 PM CDT [facility] Additional Information Interpreted at [facility] - [address] [address] 11/10/2023 2:40 PM CDT [facility] Other (Ascending Colon Biopsy) 11/07/2023 1:40 PM CDT 11/08/2023 4:04 PM CDT Specimen (specimen) (Transverse Colon Polyp) 11/07/2023 1:40 PM CDT 11/08/2023 4:04 PM CDT Specimen (specimen) (Descending Colon Polyp) 11/07/2023 1:40 PM CDT 11/08/2023 4:04 PM CDT Yolette Schafer MD PATHOLOGY/CYTOLOGY [facility] [address] [place] [address], * XR KNEE 3 VIEWS LEFT (11/03/2023 3:28 PM CDT) Anatomical Region Laterality Modality KNEES, KNEE L Computed Radiogr aphy 11/06/2023 8:18 AM CDT Narrative 11/06/2023 8:18 AM CDT For Patients: ??As a result of the Century Cures Act, medical imaging exams and procedure [...] @ Nov 06 2023 ??8:18AM (Electronically Signed) [email or web address] Procedure Note Coleman Gao MD - 11/06/2023 [...] @ Nov 06 2023 8:18AM (Electronically Signed) [email or web address] Stevan Nixon MD GENERAL IMAGING * Patient Source ANTI HCV (12/08/2016 1:07 AM CDT) HEPATITIS C ANTIBODY Non-Reacti ve Non-Reacti ve 12/08/2016 2:31 AM CDT [facility] [employer] [facility] Blood BLOOD SPECIMEN / Unknown Venipuncture / Unknown 12/08/2016 1:07 AM CDT 12/08/2016 1:28 AM CDT Narrative [facility] - 12/08/2016 2:31 AM CDT Antibodies to HCV not detected; does not exclude the possibility of exposure to HCV. Meghann Humphreys MD SEND OUTS [facility] [address] [place] [address], from Last 3 Months or Most Recently Relevant to Health Maintenance Advance Directives Documents on File Type Date Recorded Patient Supervisor [employer] Expl anation Healthcare Directive 12/31/2015 7:52 AM [...] Comments Code Status Discussion: Discussed Care Teams Safety Trainer Relationship Specialty Start Date End Date Lina Meléndez MD [address] [place] [id number] PCP - General Internal Medicine 11/01/21
--- OUTSIDE RECORDS SUMMARY | 2024-01-18 07:50 | XMS_ITS | Clinical Summary ---
Author Organization [facility] Address [address] [place] [address] Care Team Providers Care Exercise Equipment Repair Technician Name Role Phone Lina Meléndez MD Primary Care Provider [place]oda I Unavailable Allergies Active Allergy Reactions Criticality [...] Active fluticasone (FLONASE) 50 MCG/ACT nasal spray Edison 2 sprays in nostril daily Active valACYclovir [...] Created by Conversion Osteoarthritis Overview: Created by [employer] Annotation: Dec 29 2006 3:46PM - Jojo Faustin: DJD Replacement Utility updated for latest IMO load Lower Back Pain Overview: Created by [employer] Annotation: Dec 29 2006 3:46PM - Jojo [...] Comments Blood Pressure 153/88 08/04/2023 11:00 AM SECTION LEADER SCREEN PRINTING Pulse 79 08/04/2023 11:00 AM SECTION LEADER SCREEN PRINTING Temperature 36.1 ??C (97 ??F) 08/04/2023 11:00 AM SECTION LEADER SCREEN PRINTING Respiratory Rate 18 08/04/2023 11:00 AM SECTION LEADER SCREEN PRINTING Oxygen Saturation 100% 08/04/2023 11:00 AM SECTION LEADER SCREEN PRINTING Inhaled Oxygen Concentration - - Weight 70.9 kg (156 lb 4.8 oz) 08/04/2023 6:02 A M SECTION LEADER SCREEN PRINTING Height 165.1 cm (5' 5) 07/26/2023 1:00 PM SECTION LEADER SCREEN PRINTING Body Mass Index 26.01 07/26/2023 1:00 PM SECTION LEADER SCREEN PRINTING Plan of Treatment Health Maintenance Due Date [...] 12/18/2019, 03/11/2009 LIPID 12/17/2020 12/18/2019 COVID-19 Vaccine (2022- season) 2023 03/29/2023, 10/26/2022, 10/26/2022, Additional history exists PHQ-2 (once per calendar year) 2023 INFLUENZA VACCINE (#1) 2024 3, 03/29/2022, 03/31/2021, Additional history exists DTAP/TDAP/TD IMMUNIZATION (2 - Td or Tdap) 08/22/2024 08/22/2014, 01/22/2002, 01/22/2002, Additional history exists Pneumococcal Vaccine: 65+ Years Completed 06/07/2018, 08/22/2014, 06/10/2010 ZOSTER IMMUNIZATION Completed 10/10/2018, 06/04/2018, 03/11/2009 COLONOSCOPY Discontinued 08/04/2023, 08/04/2023 COLORECTAL CANCER SCREENING [...] Diagnosis Comments COLONOSCOPY Routine 08/04/2023 7:25 AM SECTION LEADER SCREEN PRINTING LIPID PROFILE Routine 12/18/2019 HEMOGLOBIN A1C Routine 12/18/2019 from Last 3 Months or Most Recently Relevant to Health Maintenance Results * COLONOSCOPY (08/04/2023 7:25 AM SECTION LEADER SCREEN PRINTING) [facility] COLONOSCOPY [facility] Patient Name: Maryam Cortez ?Procedure Date: [...] ?Olympus, Pediatric Colonoscope, Model # [id number]-H190DL, ?Censitrac #[id number] was introduced through the ?anus with the [...] criteria for high risk CPT copyright 2021 [employer]. All rights reserved. The codes documented in this report are preliminary and upon harvest worker field crop review may be revised to meet current compliance requirements. EVER ZEE MD 08/04/2023 8:47:30 AM I was physically present for the entire viewing portion of the exam. EVER ZEE MD Number of Addenda: 0 Note Initiated On: 08/04/2023 7:25 AM MRN: ?[id number] Procedure Date: ? 08/04/2023 7:25:15 AM Total Procedure Duration: 0 hours 3 minutes 40 seconds Estimated Blood Loss: ? Scope In: 7:47:47 AM Scope Out: 7:51:27 AM RADIOLOGY RESULTS 08/04/2023 7:25 AM SECTION LEADER SCREEN PRINTING Ever Zee MD PROCEDURES RADIOLOGY RESULTS * Lipid Profile (12/18/2019) Cholesterol 154 90 - 200 mg/dL [facility] Triglycerides 53 40 - 197 mg/dL [facility] HDL Cholesterol 106 >=50 mg/dL [facility] LDL Cholesterol Calculated 37 <100 mg/dL [facility] Blood specimen (specimen) 12/18/2019 Narrative [facility] - 12/18/2019 LAB RESULTS [place] Patient Reported LAB - BLOOD ORDERABL ES [facility] [address] [place] [address], [facility] [phone] * (ABNORMAL) Hemoglobin A1c (12/18/2019) Hemoglobin A1C 7.3(A) <=6.9 % [facility] Blood specimen (specimen) 12/18/2019 Narrative [facility] - 12/18/2019 LAB RESULTS [place] Provider Outside LAB - BLOOD ORDERABL ES Performing Organization Address [facility]/ZIP Co de Phone Number [facility] [address] [place] [address], [facility] [phone] from Last 3 Months or Most Recently Relevant to Health Maintenance Care Teams Exercise Equipment Repair Technician Relationship Specialty Start Date End Date Lina Meléndez MD [facility] [address] [place] [address] PCP - General Internal Medicine 12/26/14 Rhoda Sarabia I [address] [facility] [address] [place] [address] Printed Circuit Boards Stripper Etcher Dietitian, Registered 02/20/20
--- OUTSIDE RECORDS SUMMARY | 2024-01-18 07:50 | XMS_ITS | Clinical Summary ---
Author Organization [facility] Address [address] [place] [address] Care Team Providers Care Armature Winder Name Role Phone Lina Meléndez MD Primary Care Provider [phone] Source Comments You are receiving this document as you are listed as the primary care provider,follow-up provider, or the patient has been referred to you for consultation.This is in compliance with the Medicare and[facility] Hospital[facility] EHR Incentive Program,which states Providers who transition their patient to another setting of careor provider of care or refers their patient to another provider of care shouldprovide summary care record for each transition of care or referral. [employer] Allergies Active Allergy Reactions Criticality Noted Date [...] Overview: Added automatically from request for surgery [id number] TC (obstructive sleep apnea) 11/05/2018 Arthritis of [...] Comments Blood Pressure 147/63 07/17/2019 2:34 PM GIRLS SWIMMING COACH Pulse 75 07/17/2019 2:34 PM GIRLS SWIMMING COACH Temperature 36.7 ??C (98.1 ??F) 07/17/2019 2:34 PM CS T Respiratory Rate 18 07/17/2019 2:34 PM GIRLS SWIMMING COACH Oxygen Saturation 99% 07/17/2019 2:34 PM GIRLS SWIMMING COACH Inhaled Oxygen Concentration - - Weight 75 kg (165 lb 6.4 oz) 07/16/2019 10:19 AM GIRLS SWIMMING COACH Height 165.1 cm (5' 5) 07/16/2019 10:19 AM GIRLS SWIMMING COACH Body Mass Index 27.52 07/16/2019 10:19 AM GIRLS SWIMMING COACH Plan of Treatment Health Maintenance Due Date Last Done Comments Diabetes: Eye Exam 1945 Diabetes: Foot Exam 1947 Diabetes: Lipid Panel 1947 Diabetes: Urine Microalbumin 1947 Hep C Screening (Preventive Services) 1945 Dexa 2012 Diabetes: HGBA1C 10/16/2019 07/17/2019, 05/21/2016 Diabetes: Creatinine 07/17/2020 07/17/2019, 05/05/2007, 02/04/2004 COVID-19 Vaccine ( season) 2023 08/04/2020, 07/14/2020 Medicare Annual Wellness Visit 06/26/2023 Colonoscopy 08/30/2023 08/29/2013 Influenza (#1) 2024 03/31/2020, 06/2018, 03/31/2017, Additional history exists DTaP/Tdap/Td (4 - [...] this topic Medical Devices Implanted Type Area Commercial Baking Teacher Device Identifier Shelf Expiration Date Model / Serial / Lot Chip Canpolo Brunner 30cc - [id number] Implanted:Qty : 1 on 07/16/2019 by Edelmira Rodriguez MD at [facility] DEVICE Left: SHOULDER Medtronic - [employer] 08/14/2023 [id number] / / [id number] Scr Star Lk Sftp 3.5x48 - [id number] Implanted:Qty : 1 on 07/16/2019 by Edelmira Rodriguez MD at [facility] DEVICE Left: HUMERUS MIDSHAFT DePuy Synthes - Trauma 212.120 / / Scr Cj Sftp Ss 3.5x32 F-Thrd - [id number] Implanted:Qty : 1 on 07/16/2019 by Edelmira Rodriguez MD at [facility] DEVICE Left: HUMERUS MIDSHAFT [employer]ynthes - Trauma 204.832 / / [id number] Plt Prox Hum 3.5x90 6h/3h - [id number] Implanted:Qty : 1 on 07/16/2019 by Edelmira Rodriguez MD at [facility] DEVICE Left: SHOULDER [employer] - Trauma 241.901 / / [id number] Scr Cj Sftp Ss 3.5x26 F-Thrd - [id number] Implanted:Qty : 1 on 07/16/2019 by Edelmira Rodriguez MD at [facility] DEVICE Left: HUMERUS MIDSHAFT [employer]s - Trauma 204.826 / / Description:3.5mm 26mm Scr Cj Sftp Ss 3.5x28 F-Thrd - [id number] Implanted:Qty : 1 on 07/16/2019 by Edelmira Rodriguez MD at [facility] DEVICE Left: HUMERUS MIDSHAFT [employer] - Trauma 204.828 / / Scr Star Lk Sftp 3.5x34 - [id number] Implanted:Qty : 1 on 07/16/2019 by Edelmira Rdoriguez MD at [facility] DEVICE Left: HUMERUS MIDSHAFT [employer] - Trauma 212.113 / / Scr Star Lk Sftp 3.5x36 - [id number] Implanted:Qty : 2 on 07/16/2019 by Edelmira Rodriguez MD at [facility] DEVICE Left: HUMERUS MIDSHAFT [employer] - Trauma 212.115 / / Scr Star Lk Sftp 3.5x40 - [id number] Implanted:Qty : 2 on 07/16/2019 by Edelmira Rodriguez MD at [facility] DEVICE Left: HUMERUS MIDSHAFT [employer] - Trauma 212.117 / / Scr Star Lk Sftp 3.5x45 - [id number] Implanted:Qty : 1 on 07/16/2019 by Edelmira Rodriguez MD at [facility] DEVICE Left: HUMERUS MIDSHAFT [employer] - Trauma 212.119 / / Scr Star Lk Sftp 3.5x46 - [id number] Implanted:Qty : 1 on 07/16/2019 by Edelmira Rodriguez MD at [facility] DEVICE Left: HUMERUS MIDSHAFT [employer] - Trauma 212.136 / / Procedures Procedure Name Priority Date/Time Associated Diagnosis Comments BASIC METABOLIC PANEL Routine 07/17/2019 7:49 AM GIRLS SWIMMING COACH HGB A1C Routine 07/17/2019 7:49 AM GIRLS SWIMMING COACH from Last 3 Months or Most Recently Relevant to Health Maintenance Results * (ABNORMAL) Basic Metabolic Panel (IN AM) (07/17/2019 7:49 AM GIRLS SWIMMING COACH) Sodium 131(L) 136 - 145 mmol/L 07/17/2019 8:42 AM GIRLS SWIMMING COACH [facility] Potassium 3.3(L) 3.5 - 5.1 mmol/L 07/17/2019 8:42 AM GIRLS SWIMMING COACH [facility] Chloride 98 98 - 109 mmol/L 07/17/2019 8:42 AM GIRLS SWIMMING COACH [facility] CO2 25 20 - 29 mmol/L 07/17/2019 8:42 AM GIRLS SWIMMING COACH [facility] Anion Gap 8 7 - 16 mmol/L 07/17/2019 8:42 AM GIRLS SWIMMING COACH [facility] Calcium 8.4 8.4 - 10.4 mg/dL 07/17/2019 8:42 AM GIRLS SWIMMING COACH [facility] BUN 16 7 - 26 mg/dL 07/17/2019 8:42 AM GIRLS SWIMMING COACH [facility] Creatinine 0.65 0.55 - 1.02 mg/dL 07/17/2019 8:42 AM GIRLS SWIMMING COACH [facility] GFR, Estimated >60 >60 mL/min/1.7 3m2 07/17/2019 8:42 AM GIRLS SWIMMING COACH [facility] GFR, Est If >60 >60 mL/min/1.7 3m2 07/17/2019 8:42 AM GIRLS SWIMMING COACH [facility] Glucose 187(H) 70 - 100 mg/dL 07/17/2019 8:42 AM GIRLS SWIMMING COACH [facility] Comment:The given reference range is for the fasting state. Non-fasting reference range for glucose is 70 - 180 mg/dL. Blood Venipuncture / Unknown 07/17/2019 7:49 AM GIRLS SWIMMING COACH 07/17/2019 7:56 AM GIRLS SWIMMING COACH Larisa Gaines MD LAB_1 [facility] [address] [facility] [address] * (ABNORMAL) Hemoglobin A1C Glycosylated (IN AM) (07/17/2019 7:49 AM GIRLS SWIMMING COACH) Hemoglobin A1C 6.7(H) <=5.6 % 07/17/2019 1:39 PM GIRLS SWIMMING COACH [facility] Blood Venipuncture / Unknown 07/17/2019 7:49 AM GIRLS SWIMMING COACH 07/17/2019 7:56 AM GIRLS SWIMMING COACH Narrative [facility] - 07/17/2019 1:39 PM GIRLS SWIMMING COACH For patients not previously diagnosed with diabetes: 5.7-6.4%: Increased risk for diabetes 6.5% and greater: Diagnostic for diabetes For patients diagnosed with diabetes: <8.0%: Goal of therapy for ages 18-75 Clinicians may recommend a higher or lower goal for specific individuals. Larisa Gaines MD LAB_1 Performing Organization Address [facility] de Phone Number [facility] [address] from Last 3 Months or Most Recently Relevant to Health Maintenance Advance Directives * Full Code (Latest Code Status on File) Date Activated Date Inactivated Comments 07/16/2019 4:18 PM 07/17/2019 5:47 PM Care Teams Armature Winder Relationship Specialty Start Date End Date Lina Meléndez MD [address] [place] [address] PCP - General Internal Medicine 12/20/18
--- OUTSIDE RECORDS SUMMARY | 2024-01-18 07:51 | XMS_ITS | Continuity of Care Document ---
Author Organization [facility] Address [address] [place] [address] Phone Care Team Providers Care Guitar Repairer Name Role Phone Gurinder Mc MD Unavailable [...] on Encounter [facility], [address], [place], [place], [id number] , tel:[phone] [facility] [place] Encounter for other specified surgical aftercare 4 Alexandro Montoya [facility], [address] [place] [address], [place], [place], [id number] , . [phone] Referring Provider: Corona Pretty, [employer] [address], [place], [address]. tel:[phone] [facility], [address], [place], [place], [id number] , [place] [phone] [facility] Encounter for other specified surgical aftercare 3 Alexandro Montoya [facility], [address] [place] [address], [place], [place], [id number] , [place]. [phone] Referring Provider: Corona Pretty, [employer] [address], [place], [address]. tel:[phone] [facility], [address], [place], [place], [id number] , [place] [phone] [facility] Spinal stenosis, lumbar region with neurogenic claudication 3 Kimberly Finney. [address] [place] [address], [place], [place], [id number] , [place]. [phone] Referring Provider: Corona Pretty, [employer] [address], [place], [address]. tel:[phone] [facility], [address], [place], [place], [id number] , [place] tel: [phone] [facility] No Information 3 Mehbod Amir. [facility], [address], [place], [id number] , [place]. tel: [phone] [facility], [address], [place], [id number] , [place] tel: [phone] [facility] No Information 3 Kimberly Finney. [address], [place], [id number] , [place]. tel: [phone] Referring Provider: Corona Pretty, [facility] [address] [facility], [place], [address]. tel:[phone] [facility], [address], [place], [id number] , [place] tel: [phone] [facility] No Information 3 Mehbod Amir. [facility], [address], [facility] [place], [id number] , [place]. tel: [phone] Referring Provider: Corona Pretty, [facility] [address] [facility], [place], [address]. tel:[phone] [facility], [address], [place], [id number] , [place] tel: [phone] [facility] No Information 3 Mehbod Amir. [facility], [address], [facility] [place], [id number] , [place]. tel: [phone] Office/Outpa tient Visit,Est, Mod [facility], [address], [facility] [place], [id number] , [place] tel: [phone] [facility] Spinal stenosis, lumbar region with neurogenic claudication Sep- 3 Mehbod Amir. [facility], [address] [place] [address] [address], [facility] [place], [id number] , [place]. tel: [phone] Referring Provider: Corona Pretty, [facility] [address], [place], [address]. tel:[phone] Office/Outpa tient Visit,New, Mod [facility], [address], [place], [place], [id number] , [place] tel: [phone] [facility] Spinal stenosis, lumbar region with neurogenic claudication 2 Mehbod Amir. [facility], [address] [place] [address] [address], [place], [place], [id number] , [place]. tel: [phone] Referring Provider: Corona Pretty, [address], [place], [address]. tel:[phone] Office/Outpa tient Visit,Est, Mod [facility], [address], [place], [place], [id number] , [place] tel: [phone] [facility] Other forms of scoliosis, lumbar regionPost Op - Normal Follow-up 8 Mehbod Amir. [facility], [address] [place] [address] [address], [place], [place], [address] , [place]. tel: [phone] Referring Provider: Corona Pretty, [address], [place], [address]. tel:[phone] Office/Outpa tient Visit,Est, Low [facility], [address], [place], [place], [address] , [place] tel: [phone] [facility] Encounter for other specified surgical aftercareArthrode sis status 8 Mehbod Amir. [facility], [address] [place] [address] [address], [place], [place], [id number] , [place]. tel: [phone] Referring Provider: Corona Pretty, [facility] [address] [facility], [place], [address]. tel:[phone] Office/Outpa tient Visit,Est, Mod [facility], [address], [place], [place], [address] , [place] tel: [phone] [facility] Spinal stenosis, lumbar region NOS Mehbod Amir. [facility], [address] [place] [address] [address], [place], [place], [id number] , [place]. tel: [phone] Referring Provider: Corona Pretty, [facility] [address] [facility], [place], [address]. tel:[phone] [facility], [address], [place], [place], [id number] , [place] tel: [phone] [facility] Encounter for follow-up examination after completed treatment for conditions other than malignant neoplasm Mehbod Amir. [facility], [address] [place] [address], [place], [place], [id number] , [place]. tel: [phone] Referring Provider: Corona Pretty [employer] [address] [facility], [place], [address]. tel:[phone] [facility], [address], [place], [place], [address] , [place] tel: [phone] [facility] Spinal stenosis, lumbar region Kimberly Finney. [address] [place] [address], [place], [place], [id number] , [place]. tel: [phone] Referring Provider: Corona Pretty [facility], [place], [address]. tel:[phone] [facility], [address], [place], [place], [id number] , [place] tel: [phone] [facility] No Information Mehbod Amir. [facility], [address] [place] [address] [address], [place], [place], [id number] , [place]. tel: [phone] Referring Provider: Corona Pretty, [facility], [place], [address]. tel:[phone] Office/Outpa tient Visit,Est, Mod [facility], [address], [place], [place], [address] , [place] tel: [phone] [facility] Spinal stenosis, lumbar region Apr-0 3-201 7 Mehbod Amir. [facility], [address] [place] [address] [address], [place], [place], [id number] , [place]. tel: [phone] Referring Provider: Corona Pretty, [employer] [address], [place], [address]. tel:[phone] [facility], [address], [place], [place], [address] , [place] tel: [phone] [facility] Spinal stenosis, lumbar region Sep- 9 6 [facility] [address] [place] [address], [place], [place], [id number] , [place]. tel: [phone] Referring Provider: Corona Pretty, [employer] [address] , [place], [address]. tel:[phone] [facility], [address], [place], [place], [id number] , [place] tel: [phone] [facility] Spinal stenosis, lumbar region Aug-0 8201 6 Mehbod Amir. [facility], [address] [place] [address] [address], [place], [place], [id number] , [place]. tel: [phone] Referring Provider: Corona Pretty [facility], [place], [address]. tel:[phone] [facility], [address], [place], [place], [address] , [place] tel: [phone] [facility] No Information Sergei- 4201 6 Mehbod Amir. [facility], [address] [place] [address] [address], [place], [place], [id number] , [place]. tel: [phone] Referring Provider: Corona Pretty, [employer] [address] , [place], [address]. tel:[phone] Office/Outpa tient Visit,New, Mod [facility], [address], [place], [place], [address] , [place] tel:[phone] [facility] OverweightSpinal stenosis, lumbar region 2-201 6 Alexandro [place]. [facility], [address], [place], [place], [address] , [place]. [phone] Referring Provider: Corona Pretty, [address], [place], [address]. tel:[phone] Family History Family Member Type Diagnosis Age At Onset No Information Payers Payer name Insurance type Covered green party ID Zuhaira sharri(s) [employer] Alllaurier 2021 CI [id number] Social History Type Description Quantity Date Captured [...]
--- OUTSIDE RECORDS SUMMARY | 2024-01-18 07:51 | XMS_ITS | Referral Summary ---
Author Organization [facility] Address [address] [place] [id number] Care Team Providers Care Professor Of Early Childhood Education Name Role Phone Lina Meléndez MD Primary Care Provider [place] [facility] Unavailable Allergies Active Allergy Reactions Criticality [...] Active fluticasone (FLONASE) 50 MCG/ACT nasal spray [place] 2 sprays in nostril daily Active valACYclovir [...] Created by Conversion Osteoarthritis Overview: Created by Formspring Annotation: Dec 29 2006 3:46PM - Jojo Faustin: DJD Replacement Utility updated for latest IMO load Lower Back Pain Overview: Created by Formspring Annotation: Dec 29 2006 3:46PM - Jojo [...] Comments Blood Pressure 153/88 08/04/2023 11:00 AM STAVE MACHINE TENDER Pulse 79 08/04/2023 11:00 AM STAVE MACHINE TENDER Temperature 36.1 ??C (97 ??F) 08/04/2023 11:00 AM STAVE MACHINE TENDER Respiratory Rate 18 08/04/2023 11:00 AM STAVE MACHINE TENDER Oxygen Saturation 100% 08/04/2023 11:00 AM STAVE MACHINE TENDER Inhaled Oxygen Concentration - - Weight 70.9 kg (156 lb 4.8 oz) 08/04/2023 6:02 A M STAVE MACHINE TENDER Height 165.1 cm (5' 5) 07/26/2023 1:00 PM STAVE MACHINE TENDER Body Mass Index 26.01 07/26/2023 1:00 PM STAVE MACHINE TENDER Plan of Treatment Not on file Procedures Procedure Name Priority Date/Time Associated Diagnosis Comments COLONOSCOPY Routine 08/04/2023 7:25 AM STAVE MACHINE TENDER LIPID PROFILE Routine 12/18/2019 HEMOGLOBIN A1C Routine 12/18/2019 from Last 3 Months or Most Recently Relevant to Health Maintenance Results * COLONOSCOPY (08/04/2023 7:25 AM STAVE MACHINE TENDER) [facility] COLONOSCOPY [facility] Patient Name: Maryam Cortez ?Procedure Date: [...] ?[employer]us, Pediatric Colonoscope, Model # [id number]-H190DL, ?Censitrac #[id number] was introduced through the ?anus with the [...] criteria for high risk CPT copyright 2021 [employer]. All rights reserved. The codes documented in this report are preliminary and upon him coder review may be revised to meet current compliance requirements. EVER ZEE MD 08/04/2023 8:47:30 AM I was physically present for the entire viewing portion of the exam. EVER ZEE MD Number of Addenda: 0 Note Initiated On: 08/04/2023 7:25 AM MRN: ?[id number] Procedure Date: ? 08/04/2023 7:25:15 AM Total Procedure Duration: 0 hours 3 minutes 40 seconds Estimated Blood Loss: ? Scope In: 7:47:47 AM Scope Out: 7:51:27 AM RADIOLOGY RESULTS 08/04/2023 7:25 AM STAVE MACHINE TENDER Ever Zee MD PROCEDURES RADIOLOGY RESULTS * Lipid Profile (12/18/2019) Cholesterol 154 90 - 200 mg/dL [facility] Triglycerides 53 40 - 197 mg/dL [facility] HDL Cholesterol 106 >=50 mg/dL [facility] LDL Cholesterol Calculated 37 <100 mg/dL [facility] Blood specimen (specimen) 12/18/2019 [facility] - 12/18/2019 LAB RESULTS [place] Patient Reported LAB - BLOOD ORDERABL ES [address] [address] [phone] * (ABNORMAL) Hemoglobin A1c (12/18/2019) Hemoglobin A1C 7.3(A) <=6.9 % [facility] Blood specimen (specimen) 12/18/2019 [facility] - 12/18/2019 LAB RESULTS [place] Provider Outside LAB - BLOOD ORDERABL ES Performing Organization Address [facility] Co de Phone Number [address] [address] [phone] from Last 3 Months or Most Recently Relevant to Health Maintenance Care Teams Professor Of Early Childhood Education Relationship Specialty Start Date End Date Lina Meléndez MD [facility] [address] [place] [address] PCP - General Internal Medicine 12/26/14 Rhoda Sarabia I [address] [place] [id number] [employer] Developer Dietitian, Registered 02/20/20
--- NOTE | 2024-01-18 08:00 | CRLHL7_ITS ---
For Patients: As a result of the Century Cures Act, medical imaging exams and procedure reports are released immediately into your electronic medical record. You may view this report before your referring provider. If you have questions, please contact your health care provider. 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 TECHNIQUE: 26.1 mCi Tc-99m labeled MDP administered. A three-phase bone scan of the knees was performed. COMPARISON: Correlation is made with x-rays of the left knee November 03, 2023. FINDINGS: Flow phase demonstrates mildly increased flow to the left knee arthroplasty particularly at the level of the patellar component and potentially along the lateral margin of the femoral component. Blood pool images demonstrates asymmetric tracer accumulation along superior lateral margin of the left knee arthroplasty and less so along the medial portion of the femoral component. Delayed imaging demonstrates tracer accumulation along the left knee tibial component and the left knee patellar component. Delayed imaging also demonstrates some tracer accumulation along the medial right tibial component and lateral right femoral component as well as the right patellofemoral compartment. 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 IMPRESSION: 1. Positive 3 phase bone scan of the left knee. 2. Uptake about the right knee arthroplasty on delayed images only likely reflects some degree of bony remodeling. Dictated by Christiano Chapin MD @ 01/24/2024 10:12:11 AM (Electronically Signed)
== END 2024-01-18 07:49 | disposition home or self-care (01) ==
LOC: NM 07:49
PROVIDERS: PCP Internal Medicine; Visit Provider Family Medicine
DX: M25.562 Pain in left knee (principal); G89.29 Other chronic pain; Z96.652 Presence of left artificial knee joint
CPT/HCPCS: 78315; A9503

== ENCOUNTER 2024-02-02 10:53 | Outpatient (CLI) | payer MEDICARE, SELFPAY | END 2024-02-02 10:54 | disposition home or self-care (01) | LOC: NFLDREF 02-06 18:50 | PROVIDERS: PCP Internal Medicine; Referring Provider Internal Medicine; Visit Provider Internal Medicine Nephrology | DX: I10 Essential (primary) hypertension (principal); E11.9 Type 2 diabetes mellitus without complications; R80.9 Proteinuria, unspecified; Z79.4 Long term (current) use of insulin | CPT/HCPCS: 80069; 82043; 82570; 84550 ==

== ENCOUNTER 2024-03-25 14:15 | Outpatient (CLI) | payer MEDICARE, SELFPAY ==
--- OUTSIDE RECORDS SUMMARY | 2024-03-25 13:06 | XMS_ITS | Clinical Summary ---
Author Organization [employer] Address [place], [place] [address] Care Team Providers Care Roofer Vinyl Coating Name Role Phone Lina Meléndez MD Primary Care Provider [phone] Allergies Active Allergy Reactions Criticality Noted Date [...] bedtime. 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[employer]) 12/31/2021 Active continuous glucose monitor SENSOR KIT ([employer]) 12/31/2021 Active bd insulin pen needle uf [...] subcutaneous once daily. 10 mL 05/05/2023 Active CPAPIndications:CT (obstructive sleep apnea) CPAP machine for home use at pressure 4.6-8.6cmw, nasal mask x1/3month with nasal pillows x 2/mo 1 Each 06/07/2023 Active Active Problems Problem Noted Date Diagnosed Date Trigger finger, right ring finger 09/24/2020 Overview (09/24/2020): August 2020: Dr. Nixon injected and 2 weeks out 100% relief. TC 11/29/2017 AHI-14 11/05/2018 Arthritis of carpometacarpal (CMC) joint of righ t thumb 10/16/2017 Overview (08/23/2018): September 2017: cortisone injection right CMC joint, [...] Encounters Date Type Department Care Team Description 03/19/2024 3:45 PM CDT Ancillary Procedure [facility] [address] [place] [address] 03/19/2024 3:30 PM CDT Office Visit [facility] [address] [facility] [place] [address] Rex Fink DPM Consult (Left final surgical consult, DOS 04/01/24/Right foot pain since 03/18/24) 03/19/2024 Travel 03/14/2024 3:10 PM CDT Ancillary Procedure [facility] [address] [facility] [address] [place] [address] 03/14/2024 2:45 PM CDT Office Visit [facility] [address] [facility] [address] [place] [address] Lalito Perdue, Knee Pain/problem (Left knee pain) 03/14/[address] [facility] [address] [facility] [address] [place] [address] Lalito Perdue, <No scans attached> 03/14/2024 Travel 03/12/2024 Medical Messaging [facility] [address] [place] [address] Rex Fink DPM left foot surgery 03/12/[address] [facility] [address] [facility] [address] [place] [address] Lalito Perdue DO CALLBACK (scheduling left knee surgery ) 03/07/2024 2:45 PM CDT Office Visit [facility] [address] [facility] [address] [place] [address] Lalito Perdue DO Follow Up (Pain due to total left knee replacement) 03/07/2024 Travel 02/20/2024 3:00 PM CDT Office Visit [facility] [address] [place] [address] Lalito Perdue DO Knee Pain/problem (Left Knee Pain S/P Total Knee Arthroplasty, DOS: 2003) 02/20/2024 Travel 02/13/2024 1:45 PM CDT Office Visit [facility] [address] [place] [address] Rex Fink DPMaria De Jesus Consult (Left foot pain) 02/13/2024 Travel 01/26/2024 Telephone [facility] [address] [place] [address] Corona Dixon MD Results (Bone Scan) 01/24/2024 Orders Only [facility] [address] [facility] [place] [address] Corona Dixon MD 1 scan: (1-Ord) [place], [place] BONE 3 PHASE, 01/18/2024 01/17/2024 Telephone [facility] [address] [place] [address] Corona Dixon MD Questions 01/15/2024 Telephone [facility] [address] [place] [address] Corona Dixon MD nuc med 01/01/2024 2:45 PM CDT Ancillary Procedure [facility] [address] [place] [address] 01/01/2024 1:40 PM CDT Office Visit [facility] [address] [place] [address] Corona Dixon MD Musculoskeletal Problem (Follow up left knee pain/Consult right elbow pain) 01/01/2024 Travel from Last 3 Months Immunizations Name [...] Sex Assigned at Female 08/31/2020 9:33 AM BEVELER Gender Identity Female 08/31/2020 9:33 AM BEVELER Sexual Orientation Straight 08/31/2020 9: 33 AM BEVELER Obstetrics History Para Term AB IAB SAB Ectopic Multiple Livin g Live Births 6 6 5 1 0 0 0 0 0 5 Date Outcome GA Total Labor Labor/2nd/3rd Weight Sex Type Anes PTL Siri A1 A5 Name Clin Term Term Term Term Term Comments 1 , 1 Last Filed Vital Signs Vital Sign Reading Time Taken Comments Blood Pressure 135/68 03/19/2024 3:50 PM CDT Pulse 73 03/19/2024 3:50 PM CDT Temperature 36.7 ??C (98 ??F) 01/01/2024 1:42 PM CDT Respiratory Rate 16 05/05/2023 7:27 AM BEVELER Oxygen Saturation 96% 03/19/2024 3:50 PM CDT Inhaled Oxygen Concentration - - Weight 73.6 kg (162 lb 3.2 oz) 11/03/2023 2:25 P M CDT Height 165.1 cm (5' 5) 06/07/2023 2:05 PM BEVELER Body Mass Index 26.99 06/07/2023 2:05 PM BEVELER Plan of Treatment Upcoming Encounters Date Type Department Care Team (Late st Contact Info) Description 04/01/2024 7:00 AM CDT Office Visit [facility] at [facility] [address] [place] [address] Rex Fink, DPMaria De Jesus [address] [place] [address] 04/03/2024 3:30 PM CDT Office Visit [facility] [address] [place] [address] Rex Fink DPM [address] [place] [address] 04/17/2024 3:15 PM CDT Office Visit [facility] [address] [place] [address] Rex Fink DPM [address] [place] [address] 05/15/2024 3:00 PM BEVELER Office Visit [facility] [address] [place] [address] Rex Fink DPM [address] [place] [address] 05/17/2024 7:15 AM BEVELER Hospital Encounter [facility] [address] [place] [address] Lalito Perdue, [address] [place] [address] 05/17/2024 7:15 AM BEVELER - 05/17/2024 11:01 AM BEVELER Surgery [facility] [address] [place] [address] [place] [address] [place] [address] ARTHROPLASTY REVISION KNEE 05/30/2024 3:15 PM BEVELER Office Visit [facility] [address] [address] [place] [address] [place] [address] 06/27/2024 2:30 PM BEVELER Office Visit [facility] [address] [place] [address] Francesco Huffman MD [address] [place] [address] 07/18/2024 3:15 PM BEVELER Office Visit [facility] [address] [facility] [address] [place] [address] [place] [address] [place] [address] Scheduled Procedures Name Priority Associated Diagnoses Date/Ti me ARTHROPLASTY REVISION KNEE Elective Mechanical loosening of internal left knee prosthetic joint, subsequent encounter H/O total knee replacement, left 05/17/2024 7:15 AM BEVELER Health Maintenance Due Date Last Done Comments Pneumococcal series for age 65+ (1 of 2 - PCV) 1953 Tdap 1958 Depression screening for age 12+ 1959 Tetanus booster 1967 Zoster (shingles) series for age 50+ (1 of 2) 1997 DEXA/DXA scan for age 65+ 2012 Medicare Wellness for age 65+ 2012 RSV vaccine for adults or (1 - 1-dose 75+ series) 2022 Influenza for age 65+ 02/25/2024 04/20/2016 BMI (ht and wt on same day) for age 18+ 06/07/2024 06/07/2023, 11/26/2018, 06/28/2017, Additional history exists Hepatitis C screening for ag e 18-79 Completed 12/08/2016 COVID-19 vaccine series Completed 03/01/20, 10/12/2023, 03/29/2023, Additional history exists Medical Devices Implanted Type Area Dramatic Director Device Identifier Shelf Expiration Date Model / Serial / Lot [id number] 1-4mm 30cc Medtronic Chips Canclls Freeze Dried Implanted:Qty: 1 on 12/06/2016 by Gurinder Mc MD at [facility] Explanted:at [facility] (Quantity not on file) Spine Medtronic Spine/Ortho 08/24/2021 [id number] / [id number] / Spacer Lmbr [id number] [place] Convex Stra Plif - [id number] Implanted:Qty: 1 on 12/06/2016 by Gurinder Mc MD at [facility] Spine [employer] 07/26/2026 [id number] # / / [id number] Matrix 3cc [place] Dbf Putty Dbm Implanted:Qty: 1 on 12/06/2016 by Gurinder Mc MD at [facility] Explanted:at [facility] (Quantity not on file) Spine Medtronic Spine/Ortho 09/08/2018 [id number]# / [id number] / Screw Lmbr Post 5.5x40mm Vitality Va - [id number] Implanted:Qty: 1 on 12/06/2016 by Gurinder Mc MD at [facility] Spine [employer] Spine 07.71307. 032# / / Screw Lmbr Post 5.5x45mm Vitality Va - [id number] Implanted:Qty: 2 on 12/06/2016 by Gurinder Mc MD at [facility] Spine [employer] Spine 07.68949. 033# / / Set Screw Lmbr 5.5-6mm Vitality Shear Off - [id number] Implanted:Qty: 4 on 12/06/2016 by Gurinder Mc MD at [facility] Spine [employer] Spine 07.79589. 001# / / Avni Lmbr 40x5.5mm Vitality Cvd Titnm - [id number] Implanted:Qty: 2 on 12/06/2016 by Gurinder Mc MD at [facility] Spine [employer] Spine 07.18887. 005# / / Spacer Lmbr [id number] [place] Convex Stra Plif - [id number] Implanted:Qty: 1 on 12/06/2016 by Gurinder Mc MD at [facility] Spine [employer] [id number] # / / Screw Lmbr Post 6.5x40mm Vitality Va - [id number] Implanted:Qty: 1 on 12/06/2016 by Gurinder Mc MD at [facility] Spine [employer] Spine 07.28196. 074# / / .[id number] Double Ended K-Wire Implanted:Qty: 2 on 12/03/2018 by Rex Fink DPM at [facility] Right: Foot N/A / / Interstim Basic Evaluation Lead Implanted:Qty: 1 on 09/28/2022 by Michelle Colmenares DO at [facility] 01/26/2024 [id number] / / [id number] Interstim Basic Evaluation Kit Implanted:Qty: 1 on 09/28/2022 by Michelle Colmenares DO at [facility] 08/27/2023 [id number] / / [id number] Interstim X Surescan Mri Lead And Smart Hydrotherapist - [id number] Implanted:Qty: 1 on 10/18/2022 by Michelle Colmenares DO at [facility] Right: Buttock Medtronic Pain Therapy 02/07/2024 [id number] / [id number] / Lead Kit 4.32mm Spacing 28cm Length Interstim - [id number] Implanted:Qty: 1 on 10/18/2022 by Michelle Colmenares DO at [facility] Right: Buttock Medtronic Pain Therapy 01/17/2024 [id number] / / [id number] Envlp Neuro Tyrx Absorb Antibacterial - [id number] Implanted:Qty: 1 on 10/18/2022 by Michelle Colmenares DO at [facility] Right: Buttock Medtronic 03/20/2023 [id number] / / [id number] Spacer Lmbr [id number] [place] Convex Stra Tlif - [id number] Implanted:Qty: 1 on 05/03/2023 by Gurinder Mc MD at [facility] N/A: Spine [employer] 09/13/2026 [id number] / / [id number] Avni Lmbr 95x5.5mm Vitality Cvd Titnm - [id number] Implanted:Qty: 1 on 05/03/2023 by Gurinder Mc MD at [facility] N/A: Spine [employer] Spine 07.67337. 016 / / Avni Lmbr 90x5.5mm Vitality Cvd Titnm - [id number] Implanted:Qty: 1 on 05/03/2023 by Gurinder Mc MD at [facility] N/A: Spine [employer] Spine 07.09028. 015 / / Set Screw Lmbr 5.5-6mm Vitality Torque - [id number] Implanted:Qty: 8 on 05/03/2023 by Gurinder Mc MD at [facility] N/A: Spine [employer] Spine 07.21319. 001 / / Screw Spinal 4.5x45mm Poly Tl Implanted:Qty: 1 on 05/03/2023 by Gurinder Mc MD at [facility] N/A: Spine [id number] / / Description:SCREW SPINAL 4.5 X45MM POLY TL Screw Spinal 5.5x45mm Poly Tl Implanted:Qty: 3 on 05/03/2023 by Gruinder Mc MD at [facility] N/A: Spine [id number] / / Description:SCREW SPINAL 5.5 X45MM POLY TL Bone 1-4mm 60cc Medtronic Fine Canclls Freeze Dried - [id number] Implanted:Qty: 1 on 05/03/2023 by Gurinder Mc MD at [facility] N/A: Spine Medtronic Spine/Ortho 09/21/2026 [id number] / [id number] / Bone Matrix 6cc [place] Dbf Putty [facility] - [id number] Implanted:Qty: 1 on 05/03/2023 by Gurinder Mc MD at [facility] N/A: Spine Medtronic Spine/Ortho 04/11/2025 [id number] / [id number] / Procedures Procedure Name Priority Date/Time Associated Diagnosis Comments XR FOOT 3 VIEWS LEFT Routine 03/19/2024 3:31 PM CDT Hallux valgus with bunions, left DJD (degenerative joint disease), ankle and foot, left Hammertoe of left foot XR LEG LENGTH Routine 03/14/2024 3:18 PM CDT H/O total knee replacement, left D-DIMER,QUANTITATIVE Routine 02/20/2024 3:44 PM CDT H/O total knee replacement, left, DOS: 2003 Pain due to total left knee replacement, initial encounter (HC) C-REACTIVE PROTEIN Routine 02/20/2024 3: 44 PM CDT H/O total knee replacement, left, DOS: 2003 Pain due to total left knee replacement, initial encounter (HC) SEDIMENTATION RATE Routine 02/20/2024 3: 44 PM CDT H/O total knee replacement, left, DOS: 2003 Pain due to total left knee replacement, initial encounter (HC) NM BONE SCAN 3 PHASE Routine 01/18/2024 12:00 AM CDT Chronic knee pain after total replacement of left knee joint XR ELBOW 3 VIEWS RIGHT Routine 2:44 PM CDT Chronic pain of right elbow EXPOSURE (BBF) ANTI HCV STAT 12/08/2016 1:07 AM CDT from Last 3 Months or Most Recently Relevant to Health Maintenance Results * XR FOOT 3 VIEWS LEFT (03/19/2024 3:31 PM CDT) Anatomical Region Laterality Modality FEET, FOOT L Computed Radiogr aphy 03/20/2024 3:44 PM CDT Narrative 03/20/2024 3:44 PM CDT For Patients: ??As a result of the 21st Century Cures Act, medical imaging exams and procedure reports are released immediately into your electronic medical record. ??You may view this report before your referring provider. ??If you have questions, please contact your health care provider. INDICATION: Hallux valgus TECHNIQUE: Three weight-bearing views of the left foot FINDINGS: Skeletal demineralization. Marked hallux valgus. Degenerative change in the 1st MTP joint. Second through 4th hammertoes. Pes planus and severe midfoot degenerative change, possibly neuropathic. Plantar heel spur. Dictated by Ag Thompson MD @ 03/20/2024 3:44:44 PM (Electronically Signed) Procedure Note Ag Thompson MD - 03/20/2024 For Patients: As a result of the Cures Act, medical imagingexams and procedure reports are released immediately into your electronicmedical record. You may view this report before your referring provider.If you have questions, please contact your health care provider. INDICATION: Hallux valgus TECHNIQUE: Three weight-bearing views of the left foot FINDINGS: Skeletal demineralization. Marked hallux valgus. Degenerative change inthe 1st MTP joint. Second through 4th hammertoes. Pes planus and severemidfoot degenerative change, possibly neuropathic. Plantar heel spur. Dictated by Ag Thompson MD @ 03/20/2024 3:44:44 PM (Electronically Signed) Rex Fink DPM GENERAL IMAGING * XR LEG LENGTH (03/14/2024 3:18 PM CDT) Anatomical Region Laterality Modality LEGS, FEMURS Digital Radiogra phy 03/16/2024 8:02 AM CDT Narrative 03/16/2024 8:02 AM CDT For Patients: ??As a result of the Cures Act, medical imaging exams and procedure reports are released immediately into your electronic medical record. ??You may view this report before your referring provider. ??If you have questions, please contact your health care provider. Indication: History of total knee replacement, left. Technique: Bilateral AP leg length 1 views. Comparison: 02/26/2021. Findings/Impression: Right leg: Length 851 mm measured hip to ankle joint. Unremarkable knee arthroplasty. No specific abnormality. Left leg: Length 847 mm measured hip to ankle joint. Unremarkable knee arthroplasty. No specific abnormality. Dictated by Bean Odell MD @ 03/16/2024 8:02:01 AM (Electronically Signed) Procedure Note Bean Odell MD - 03/16/2024 For Patients: As a result of the Century Cures Act, medical imagingexams and procedure reports are released immediately into your electronicmedical record. You may view this report before your referring provider.If you have questions, please contact your health care provider. Indication: History of total knee replacement, left. Technique: Bilateral AP leg length 1 views. Comparison: 02/26/2021. Findings/Impression: Right leg: Length 851 mm measured hip to ankle joint. Unremarkable kneearthroplasty. No specific abnormality. Left leg: Length 847 mm measured hip to ankle joint. Unremarkable kneearthroplasty. No specific abnormality. Dictated by Bean Odell MD @ 03/16/2024 8:02:01 AM (Electronically Signed) Lalito Perdue DO GENERAL IMAGING * SEDIMENTATION RATE (02/20/2024 3:44 PM CDT) Pathologist [facility] SEDIMENTATION RATE 8 <30 mm/hr 2023 10:41 PM CDT [facility] Blood BLOOD SPECIMEN / Unknown Venipuncture / Unknown 02/20/2024 3:44 PM CDT 02/20/2024 3:44 PM CDT Lalito Perdue DO HEMATOLOGY Performing Organization Address [facility]/ZIP Co de Phone Number [facility] [address] [place] [address], [place] * C-REACTIVE PROTEIN (02/20/2024 3:44 PM CDT) Pathologist [facility] C-REACTIVE PROTEIN <0.3 <0.5 mg/dL 02/20/2024 11:05 PM CDT [facility] Blood BLOOD SPECIMEN / Unknown Venipuncture / Unknown 02/20/2024 3:44 PM CDT 02/20/2024 3:44 PM CDT Lalito Perdue DO CHEMISTRY Performing Organization Address City/[facility]/ZIP Co de Phone Number [facility] [address] [place] [phone], [place] * D-DIMER,QUANTITATIVE (02/20/2024 3:44 PM CDT) D-DIMER,QUANTI TATIVE 0.54 See comment FEU mcg/mL 02/21/2024 1:32 AM CDT [facility] Blood BLOOD SPECIMEN / Unknown Venipuncture / Unknown 02/20/2024 3:44 PM CDT 02/20/2024 3:44 PM CDT Narrative [facility] - 02/21/2024 1:32 AM CDT The cut off value for exclusion of Deep Vein Thrombosis and / or Pulmonary Embolism is 0.50 FEU mcg/mL For patients greater than 50 years of age the upper limit is age dependent and was calculated with the formula: ?? (PATIENT AGE x 0.01) FEU mcg/mL = Upper limit of normal range Lalito Perdue DO [facility]ATOLOGY [facility] [address] [place] [address], * NM BONE SCAN 3 PHASE (01/18/2024 12:00 AM CDT) Anatomical Region Laterality Modality SKELETON Other Corona Dixon MD [place] * XR ELBOW 3 VIEWS RIGHT (01/01/2024 2:44 PM CDT) Anatomical Region Laterality Modality ELBOW R Computed Radiogr aphy 01/03/2024 7:55 AM CDT Narrative 01/03/2024 7:55 AM CDT For Patients: ??As a result of the 21st Century Cures Act, medical imaging exams and [...] Signed) Corona Dixon MD GENERAL IMAGING * Patient Source ANTI HCV (12/08/2016 1:07 AM CDT) HEPATITIS C ANTIBODY Non-Reacti ve Non-Reacti ve 12/08/2016 2:31 AM CDT [facility] Polar LABORATORY-[facility] Blood BLOOD SPECIMEN / Unknown Venipuncture / Unknown 12/08/2016 1:07 AM CDT 12/08/2016 1:28 AM CDT Narrative [facility] - 12/08/2016 2:31 AM CDT Antibodies to HCV not detected; does not exclude the possibility of exposure to HCV. Meghann Humphreys MD SEND OUTS [facility] 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
--- OUTSIDE RECORDS SUMMARY | 2024-03-25 13:06 | XMS_ITS | Clinical Summary ---
Author Organization [facility] Address [address] [place] [id number] Care Team Providers Care Gas Worker Name Role Phone Lina Meléndez MD Primary Care Provider WorthRhoda I Unavailable Allergies Active Allergy Reactions Criticality [...] Active fluticasone (FLONASE) 50 MCG/ACT nasal spray [place] 2 sprays in nostril daily Active valACYclovir [...] Created by Conversion Osteoarthritis Overview: Created by Videojug Annotation: Dec 29 2006 3:46PM - Jojo Faustin: DJD Replacement Utility updated for latest IMO load Lower Back Pain Overview: Created by [employer] Annotation: Dec 29 2006 3:46PM - Jojo [...] Comments Blood Pressure 153/88 08/04/2023 11:00 AM CHILD WELFARE WORKER Pulse 79 08/04/2023 11:00 AM CHILD WELFARE WORKER Temperature 36.1 ??C (97 ??F) 08/04/2023 11:00 AM CHILD WELFARE WORKER Respiratory Rate 18 08/04/2023 11:00 AM CHILD WELFARE WORKER Oxygen Saturation 100% 08/04/2023 11:00 AM CHILD WELFARE WORKER Inhaled Oxygen Concentration - - Weight 70.9 kg (156 lb 4.8 oz) 08/04/2023 6:02 A M CHILD WELFARE WORKER Height 165.1 cm (5' 5) 07/26/2023 1:00 PM CHILD WELFARE WORKER Body Mass Index 26.01 07/26/2023 1:00 PM CHILD WELFARE WORKER Plan of Treatment Health Maintenance Due Date Last Done Comments ADVANCE CARE PLANNING 1945 ANNUAL REVIEW OF HM ORDERS 1947 ASTHMA ACTION PLAN 1947 ASTHMA CONTROL TEST 1947 BMP 1947 DEXA 1947 DIABETIC FOOT EXAM 1947 EYE EXAM 1947 MICROALBUMIN 1947 HEPATITIS C SCREENING 1965 FALL RISK ASSESSMENT 2012 MEDICARE ANNUAL WELLNESS VISIT 2012 A1C 03/19/2020 12/18/2019, 03/11/2009 LIPID 12/17/2020 12/18/2019 RSV VACCINE (1 - 1-dose 75+ series) 2022 PHQ-2 (once per calendar year) 2023 COVID-19 Vaccine ( season) 2024 03/29/2023, 10/26/2022, 10/26/2022, Additional history exists INFLUENZA VACCINE (#1) 2024 , 03/29/2022, 03/31/2021, Additional history exists DTAP/TDAP/TD IMMUNIZATION [...] Diagnosis Comments COLONOSCOPY Routine 08/04/2023 7:25 AM CHILD WELFARE WORKER LIPID PROFILE Routine 12/18/2019 HEMOGLOBIN A1C Routine 12/18/2019 from Last 3 Months or Most Recently Relevant to Health Maintenance Results * COLONOSCOPY (08/04/2023 7:25 AM CHILD WELFARE WORKER) COLONOSCOPY [facility] Patient Name: Maryam Cortez ?Procedure Date: 08/04/2023 [...] ?Olympus, Pediatric Colonoscope, Model # [id number]-H190DL, ?Censitrac #[id number] was introduced through the ?anus with the [...] high risk CPT copyright 2021 [employer] [place] [employer]. All rights reserved. The codes documented in this report are preliminary and upon fruit checker review may be revised to meet current compliance requirements. EVER ZEE MD 08/04/2023 8:47:30 AM I was physically present for the entire viewing portion of the exam. EVER ZEE MD Number of Addenda: 0 Note Initiated On: 08/04/2023 7:25 AM MRN: ?[id number] Procedure Date: ? 08/04/2023 7:25:15 AM Total Procedure Duration: 0 hours 3 minutes 40 seconds Estimated Blood Loss: ? Scope In: 7:47:47 AM Scope Out: 7:51:27 AM RADIOLOGY RESULTS 08/04/2023 7:25 AM CHILD WELFARE WORKER Ever Zee MD PROCEDURES RADIOLOGY RESULTS * Lipid Profile (12/18/2019) Cholesterol 154 90 - 200 mg/dL [facility] Triglycerides 53 40 - 197 mg/dL [facility] HDL Cholesterol 106 >=50 mg/dL [facility] LDL Cholesterol Calculated 37 <100 mg/dL [facility] Blood specimen (specimen) 12/18/2019 Narrative [facility] - 12/18/2019 LAB RESULTS [place] Patient Reported LAB - BLOOD ORDERABL ES Performing Organization Address City/[facility]/ZIP Co de Phone Number [facility] [address] [place], [place] [address] [phone] * (ABNORMAL) Hemoglobin A1c (12/18/2019) Hemoglobin A1C 7.3(A) <=6.9 % [facility] Blood specimen (specimen) 12/18/2019 Narrative [facility] - 12/18/2019 LAB RESULTS [place] Provider Outside LAB - BLOOD ORDERABL ES Performing Organization Address [facility]/ZIP Co de Phone Number [facility] [address] [place] [address], [facility] [phone] from Last 3 Months or Most Recently Relevant to Health Maintenance Care Teams Gas Worker Relationship Specialty Start Date End Date Lina Meléndez MD [facility] [address] [place] [address] PCP - General Internal Medicine 12/26/14 Rhoda Sarabia I [address] [address] Mushroom Cutter Dietitian, Registered 02/20/20
--- OUTSIDE RECORDS SUMMARY | 2024-03-25 13:06 | XMS_ITS | Continuity of Care Document ---
Author Organization [facility] Address [address] [place] [address] Phone Care Team Providers Care Feather Mixer Name Role Phone Gurinder Mc MD Unavailable [...] on Encounter [facility], [address], [place], [place], [id number] , tel:[phone] [facility] [place] Encounter for other specified surgical aftercare 4 Alexandro Montoya [facility], [address] [place] [address], [place], [place], [id number] , . [phone] Referring Provider: Corona Pretty, [employer] [address], [place], [address]. tel:[phone] [facility], [address], [place], [place], [id number] , [place] [phone] [facility] - [facility] Encounter for other specified surgical aftercare 3 Alexandro Montoya [facility], [address] [place] [address], [place], [place], [id number] , [place]. [phone] Referring Provider: Corona Pretty, [employer] [employer] [address], [place], [address]. tel:[phone] [facility], [address], [place], [place], [id number] , [place] [phone] [facility] [place] Spinal stenosis, lumbar region with neurogenic claudication 3 Kimberly Finney. [address] [place] [address], [place], [place], [id number] , [place]. [phone] Referring Provider: Corona Pretty, [facility] [employer] [address], [place], [address]. tel:[phone] [facility], [address], [place], [place], [address] , [place] tel: [phone] [facility] No Information 3 Mehbod Amir. [facility], [address], [place], [id number] , [place]. tel: [phone] [facility], [address], [place], [id number] , [place] tel: [phone] [facility] No Information 3 Kimberly Finney. [address], [place], [id number] , [place]. tel: [phone] Referring Provider: Corona Pretty, [facility] [address] [facility], [place], [address]. tel:[phone] [facility], [address], [place], [id number] , [place] tel: [phone] [facility] No Information 3 Mehbod Amir. [facility] [place], [address], [facility] [place], [id number] , [place]. tel: [phone] Referring Provider: Corona Pretty, [facility] [address] [facility], [place], [address]. tel:[phone] [facility], [address], [place], [id number] , [place] tel: [phone] [facility] No Information 3 Mehbod Amir. [facility], [address], [facility] [place], [id number] , [place]. tel: [phone] Office/Outpa tient Visit,Est, Mod [facility], [address], [facility] [place], [id number] , [place] tel: [phone] [facility] Spinal stenosis, lumbar region with neurogenic claudication Sep- 3 Mehbod Amir. [facility], [address] [place] [address] [address], [facility] [place], [id number] , [place]. tel: [phone] Referring Provider: Corona Pretty, [facility] [address], [place], [address]. tel:[phone] Office/Outpa tient Visit,New, Mod [facility], [address], [place], [place], [id number] , [place] tel: [phone] [facility] Spinal stenosis, lumbar region with neurogenic claudication 2 Mehbod Amir. [facility], [address] [place] [address] [address], [place], [place], [address] , [place]. tel: [phone] Referring Provider: Corona Pretty, [address], [place], [address]. tel:[phone] Office/Outpa tient Visit,Est, Mod [facility], [address], [place], [place], [address] , [place] tel: [phone] [facility] Other forms of scoliosis, lumbar regionPost Op - Normal Follow-up 8 Mehbod Amir. [facility], [address] [place] [address] [address], [place], [place], [id number] , [place]. tel: [phone] Referring Provider: Corona Pretty, [address], [place], [address]. tel:[phone] Office/Outpa tient Visit,Est, Low [facility], [address], [place], [place], [address] , [place] tel: [phone] [facility] Encounter for other specified surgical aftercareArthrode sis status 8 Mehbod Amir. [facility], [address] [place] [address] [address], [place], [place], [address] , [place]. tel: [phone] Referring Provider: Corona Pretty, [facility] [address] [facility], [place], [address]. tel:[phone] Office/Outpa tient Visit,Est, Mod [facility], [address], [place], [place], [address] , [place] tel: [phone] [facility] - [facility] Spinal stenosis, lumbar region NOS Mehbod Amir. [facility], [address] [place] [address] [address], [place], [place], [id number] , [place]. tel: [phone] Referring Provider: Corona Pretty, [facility] [address] [facility], [place], [address]. tel:[phone] [facility], [address], [place], [place], [id number] , [place] tel: [phone] [facility] Encounter for follow-up examination after completed treatment for conditions other than malignant neoplasm Mehbod Amir. [facility], [address] [place] [address] [address], [place], [place], [id number] , [place]. tel: [phone] Referring Provider: Corona Pretty [facility] [address] [facility], [place], [address]. tel:[phone] [facility], [address], [place], [place], [address] , [place] tel: [phone] [facility] Spinal stenosis, lumbar region Kimberly Finney. [address] [place] [address] [address], [place], [id number] , [place]. tel: [phone] Referring Provider: Corona Pretty [facility] [address] [facility], [place], [address]. tel:[phone] [facility], [address], [place], [place], [id number] , [place] tel: [phone] [facility] No Information Mehbod Amir. [facility], [address] [place] [address] [address], [place], [place], [id number] , [place]. tel: [phone] Referring Provider: Corona Pretty, [facility], [place], [address]. tel:[phone] Office/Outpa tient Visit,Est, Mod [facility], [address], [place], [place], [address] , [place] tel: [phone] [facility] [place] Spinal stenosis, lumbar region Apr-0 3-201 7 Mehbod Amir. [facility] [place], [address] [place] [address] 600, [place], [id number] , [place]. tel: [phone] Referring Provider: Corona Pretty, [facility] [employer] [address], [place], [address]. tel:[phone] [facility], [address], [place], [place], [id number] , [place] tel: [phone] [facility] [place] Spinal stenosis, lumbar region Sep- 9 6 [facility] [address] [place] [address] [address], [place], [address] , [place]. tel: [phone] Referring Provider: Corona Pretty, [facility] [address] , [place], [address]. tel:[phone] [facility], [address], [place], [address] , [place] tel: [phone] [facility] [place] Spinal stenosis, lumbar region Aug-0 8201 6 Mehbod Amir. [facility], [address] [place] [address] [address], [place], [address] , [place]. tel: [phone] Referring Provider: Corona Pretty [facility] [address] [facility], [place], [address]. tel:[phone] [facility], [address], [place], [place], [address] , [place] tel: [phone] [facility] No Information Sergei- 4201 6 Mehbod Amir. [facility] [place], [address] [place] [address] [address], [place], [place], [address] , [place]. tel: [phone] Referring Provider: Corona Pretty, [facility] [address] , [place], [address]. tel:[phone] Office/Outpa tient Visit,New, Mod [facility], [address], [place], [place], [id number] , [place] tel:[phone] [facility] - Marge OverweightSpinal stenosis, lumbar region 2-201 6 Alexandro Fairchild. [facility], [address], [place], [place], [id number] , [place]. [phone] Referring Provider: Corona Pretty, [address], [place], [address]. tel:[phone] Family History Family Member Type Diagnosis Age At Onset No Information Payers Payer name Insurance type Covered alliance party ID Zuhaira sharri(s) [employer] [place] 2021 CI [id number] Social History Type Description Quantity Date Captured [...]
--- OUTSIDE RECORDS SUMMARY | 2024-03-25 13:06 | XMS_ITS | Clinical Summary ---
Author Organization [facility] Address [address] [place] [address] Care Team Providers Care Battery Technician Name Role Phone Lina Meléndez MD Primary Care Provider [phone] Source Comments You are receiving this document as you are listed as the primary care provider,follow-up provider, or the patient has been referred to you for consultation.This is in compliance with the Medicare and[facility] Cent[facility] EHR Incentive Program,which states Providers who transition their patient to another setting of careor provider of care or refers their patient to another provider of care shouldprovide summary care record for each transition of care or referral. 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/15/2017): LW Onset: 2004 ; Polyp Colon Adenomatous Type 2 diabetes mellitus wit hout complication, with long-term current use of insulin 03/23/2007 Overview (07/10/2019): DM Type2 Backache 03/23/2007 Major depressive disorder, recurrent episode Osteoarthritis 11/30/2002 Overview (07/10/2019): DJD Social History Tobacco Use Types Packs/Day [...] Comments Blood Pressure 147/63 07/17/2019 2:34 PM INSPECTOR [employer]CH[employer] Pulse 75 07/17/2019 2:34 PM [employer] Temperature 36.7 ??C (98.1 ??F) 07/17/2019 2:34 PM CS T Respiratory Rate 18 07/17/2019 2:34 PM [employer] Oxygen Saturation 99% 07/17/2019 2:34 PM [employer] Inhaled Oxygen Concentration - - Weight 75 kg (165 lb 6.4 oz) 07/16/2019 10:19 AM [employer] Height 165.1 cm (5' 5) 07/16/2019 10:19 AM [employer] Body Mass Index 27.52 07/16/2019 10:19 AM [employer] Plan of Treatment Health Maintenance Due Date Last Done Comments Diabetes: Eye Exam 1945 Diabetes: Foot Exam 1947 Diabetes: Lipid Panel 1947 Diabetes: Urine Microalbumin 1945 Hep C Screening (Preventive Services) 1945 Dexa 2012 Diabetes: HGBA1C 10/16/2019 07/17/2019, 05/21/2016 Diabetes: Creatinine 07/17/2020 07/17/2019, 05/05/2007, 02/04/2004 RSV (1 - 1-dose 75+ series) 2022 Medicare Annual Wellness Visit 06/26/2023 Colonoscopy 08/30/2023 08/29/2013 COVID-19 Vaccine ( season) 2024 08/04/2020, 07/14/2020 Influenza (#1) 2024 03/31/2020, 1006/2018, 03/31/2017, Additional history exists DTaP/Tdap/Td (4 - [...] this topic Medical Devices Implanted Type Area E Commerce Merchandising Coordinator Device Identifier Shelf Expiration Date Model / Serial / Lot Chip Anita Brunner 30cc - [id number] Implanted:Qty : 1 on 07/16/2019 by Edelmira Rodriguez MD at [facility] DEVICE Left: SHOULDER Medtronic - [employer] 08/14/2023 [id number] / / [id number] Scr Star Lk Sftp 3.5x48 - [id number] Implanted:Qty : 1 on 07/16/2019 by Edelmira Rodriguez MD at [facility] DEVICE Left: HUMERUS MIDSHAFT DePuy Synthes - Trauma 212.120 / / Scr Cj Sftp Ss 3.5x32 F-Thrd - [id number] Implanted:Qty : 1 on 07/16/2019 by Edelmira Rodriguez MD at [facility] DEVICE Left: HUMERUS MIDSHAFT [employer]s - Trauma 204.832 / / [id number] Plt Prox Hum 3.5x90 6h/3h - [id number] Implanted:Qty : 1 on 07/16/2019 by Edelmira Rodriguez MD at [facility] DEVICE Left: SHOULDER [employer]ynthes - Trauma 241.901 / / [id number] Scr Cj Sftp Ss 3.5x26 F-Thrd - [id number] Implanted:Qty : 1 on 07/16/2019 by Edelmira Rodriguez MD at [facility] DEVICE Left: HUMERUS MIDSHAFT [employer] Synthes - Trauma 204.826 / / Description:3.5mm 26mm Scr Cj Sftp Ss 3.5x28 F-Thrd - [id number] Implanted:Qty : 1 on 07/16/2019 by Edelmira Rodriguez MD at [facility] DEVICE Left: HUMERUS MIDSHAFT [employer]ynthes - Trauma 204.828 / / Scr Star Lk Sftp 3.5x34 - [id number] Implanted:Qty : 1 on 07/16/2019 by Edelmira Rodriguez MD at [facility] DEVICE Left: HUMERUS MIDSHAFT [employer] - Trauma 212.113 / / Scr Star Lk Sftp 3.5x36 - [id number] Implanted:Qty : 2 on 07/16/2019 by Edelmira Rodriguez MD at [facility] DEVICE Left: HUMERUS MIDSHAFT [employer] - Trauma 212.115 / / Scr Star Lk Sftp 3.5x40 - [id number] Implanted:Qty : 2 on 07/16/2019 by Edelmira Rodriguez MD at [facility] DEVICE Left: HUMERUS MIDSHAFT [employer] - Trauma 212.117 / / Scr Star Lk Sftp 3.5x45 - [id number] Implanted:Qty : 1 on 07/16/2019 by Edelmira Rodriguez MD at [facility] DEVICE Left: HUMERUS MIDSHAFT [employer]ynthes - Trauma 212.119 / / Scr Star [facility] 3.5x46 - [id number] Implanted:Qty : 1 on 07/16/2019 by Edelmira Rodriguez MD at [facility] DEVICE Left: HUMERUS MIDSHAFT DePuy Synthes - Trauma 212.136 / / Procedures Procedure Name Priority Date/Time Associated Diagnosis Comments BASIC METABOLIC PANEL Routine 07/17/2019 7:49 AM INSPECTOR [employer] HGB A1C Routine 07/17/2019 7:49 AM [employer] from Last 3 Months or Most Recently Relevant to Health Maintenance Results * (ABNORMAL) Basic Metabolic Panel (IN AM) (07/17/2019 7:49 AM INSPECT[employer]) Sodium 131(L) 136 - 145 mmol/L 07/17/2019 8:42 AM [employer] [facility] Potassium 3.3(L) 3.5 - 5.1 mmol/L 07/17/2019 8:42 AM [employer] [facility] Chloride 98 98 - 109 mmol/L 07/17/2019 8:42 AM [employer] [facility] CO2 25 20 - 29 mmol/L 07/17/2019 8:42 AM [employer] [facility] Anion Gap 8 7 - 16 mmol/L 07/17/2019 8:42 AM [employer] [facility] Calcium 8.4 8.4 - 10.4 mg/dL 07/17/2019 8:42 AM [employer] [facility] BUN 16 7 - 26 mg/dL 07/17/2019 8:42 AM [employer] [facility] Creatinine 0.65 0.55 - 1.02 mg/dL 07/17/2019 8:42 AM [employer] [facility] GFR, Estimated >60 >60 mL/min/1.7 3m2 07/17/2019 8:42 AM [employer] [facility] GFR, Est If >60 >60 mL/min/1.7 3m2 07/17/2019 8:42 AM [employer] [facility] Glucose 187(H) 70 - 100 mg/dL 07/17/2019 8:42 AM [employer] [facility] Comment:The given reference range is for the fasting state. Non-fasting reference range for glucose is 70 - 180 mg/dL. Blood Venipuncture / Unknown 07/17/2019 7:49 AM [employer] 07/17/2019 7:56 AM [employer] Larisa Gaines MD LAB_1 Performing Organization Address [facility] de Phone Number [facility] [address] * (ABNORMAL) Hemoglobin A1C Glycosylated (IN AM) (07/17/2019 7:49 AM INS[employer]) Hemoglobin A1C 6.7(H) <=5.6 % 07/17/2019 1:39 PM [employer] [facility] Blood Venipuncture / Unknown 07/17/2019 7:49 AM [employer] 07/17/2019 7:56 AM [employer] Narrative [facility] - 07/17/2019 1:39 PM INS[employer] For patients not previously diagnosed with diabetes: 5.7-6.4%: Increased risk for diabetes 6.5% and greater: Diagnostic for diabetes For patients diagnosed with diabetes: <8.0%: Goal of therapy for ages 18-75 Clinicians may recommend a higher or lower goal for specific individuals. Larisa Gaines MD LAB_1 Performing Organization Address [facility] Phone Number [facility] [address] [place] [address] from Last 3 Months or Most Recently Relevant to Health Maintenance Advance Directives * Full Code (Latest Code Status on File) Date Activated Date Inactivated Comments 07/16/2019 4:18 PM 07/17/2019 5:47 PM Care Teams Battery Technician Relationship Specialty Start Date End Date Lina Meléndez MD [address] [place] [address] PCP - General Internal Medicine 12/20/18
--- OUTSIDE RECORDS SUMMARY | 2024-03-25 13:06 | XMS_ITS | Referral Summary ---
Author Organization [facility] [place] Address [address] [place] [address] Care Team Providers Care Cold Roll Operator Name Role Phone Lina Meléndez MD Primary Care Provider SchoharieRhoda I Unavailable Allergies Active Allergy Reactions Criticality [...] Active fluticasone (FLONASE) 50 MCG/ACT nasal spray [place] 2 sprays in nostril daily Active valACYclovir [...] Created by Conversion Osteoarthritis Overview: Created by [employer] Annotation: Dec 29 2006 3:46PM - Jojo Faustin: DJD Replacement Utility updated for latest IMO load Lower Back Pain Overview: Created by [employer] Annotation: Dec 29 2006 3:46PM - Jojo [...] Comments Blood Pressure 153/88 08/04/2023 11:00 AM FOOTWEAR SALES REPRESENTATIVE Pulse 79 08/04/2023 11:00 AM FOOTWEAR SALES REPRESENTATIVE Temperature 36.1 ??C (97 ??F) 08/04/2023 11:00 AM FOOTWEAR SALES REPRESENTATIVE Respiratory Rate 18 08/04/2023 11:00 AM FOOTWEAR SALES REPRESENTATIVE Oxygen Saturation 100% 08/04/2023 11:00 AM FOOTWEAR SALES REPRESENTATIVE Inhaled Oxygen Concentration - - Weight 70.9 kg (156 lb 4.8 oz) 08/04/2023 6:02 A M FOOTWEAR SALES REPRESENTATIVE Height 165.1 cm (5' 5) 07/26/2023 1:00 PM FOOTWEAR SALES REPRESENTATIVE Body Mass Index 26.01 07/26/2023 1:00 PM FOOTWEAR SALES REPRESENTATIVE Plan of Treatment Not on file Procedures Procedure Name Priority Date/Time Associated Diagnosis Comments COLONOSCOPY Routine 08/04/2023 7:25 AM FOOTWEAR SALES REPRESENTATIVE LIPID PROFILE Routine 12/18/2019 HEMOGLOBIN A1C Routine 12/18/2019 from Last 3 Months or Most Recently Relevant to Health Maintenance Results * COLONOSCOPY (08/04/2023 7:25 AM FOOTWEAR SALES REPRESENTATIVE) [facility] COLONOSCOPY [facility] Patient Name: Maryam Cortez ?Procedure [...] ?Olympus, Pediatric Colonoscope, Model # [id number]-H190DL, ?Censitrac #[id number] was introduced through the ?anus with the [...] criteria for high risk CPT copyright 2021 [employer]. All rights reserved. The codes documented in this report are preliminary and upon controller mechanic review may be revised to meet current compliance requirements. EVER ZEE MD 08/04/2023 8:47:30 AM I was physically present for the entire viewing portion of the exam. EVER ZEE MD Number of Addenda: 0 Note Initiated On: 08/04/2023 7:25 AM MRN: ?[id number] Procedure Date: ? 08/04/2023 7:25:15 AM Total Procedure Duration: 0 hours 3 minutes 40 seconds Estimated Blood Loss: ? Scope In: 7:47:47 AM Scope Out: 7:51:27 AM RADIOLOGY RESULTS 08/04/2023 7:25 AM FOOTWEAR SALES REPRESENTATIVE Ever Zee MD PROCEDURES RADIOLOGY RESULTS * Lipid Profile (12/18/2019) Cholesterol 154 90 - 200 mg/dL [facility] Triglycerides 53 40 - 197 mg/dL [facility] HDL Cholesterol 106 >=50 mg/dL [facility] LDL Cholesterol Calculated 37 <100 mg/dL [facility] Blood specimen (specimen) 12/18/2019 Narrative [facility] - 12/18/2019 LAB RESULTS [place] Patient Reported LAB - BLOOD ORDERABL ES [facility] [address] [place], [place] [id number] [place] [address] * (ABNORMAL) Hemoglobin A1c (12/18/2019) Hemoglobin A1C 7.3(A) <=6.9 % [facility] Blood specimen (specimen) 12/18/2019 [facility] - 12/18/2019 LAB RESULTS [place] Provider Outside LAB - BLOOD ORDERABL ES Performing Organization Address [facility]/ZIP Co de Phone Number [id number] [place] [address] from Last 3 Months or Most Recently Relevant to Health Maintenance Care Teams Cold Roll Operator Relationship Specialty Start Date End Date Lina Meléndez MD [facility] [address] [place], [place] [id number] PCP - General Internal Medicine 12/26/14 Rhoda Sarabia I [address] [place] [address] Tape Edge Machine Operator Dietitian, Registered 02/20/20
--- OUTSIDE RECORDS SUMMARY | 2024-03-25 13:07 | XMS_ITS | Clinical Summary ---
Author Organization [facility] Address [address] [place] [address] Care Team Providers Care Aboriginal Education Worker Coordinator Name Role Phone Unavailable Primary Care Provider Unavailabl e Source Comments Patient records contain information from all sites at [facility]. For routine questions regarding patient records, call [phone] during business hours, M-F 8:00 AM - 5:00 PM Central Time. Record requests for emergency care only can be directed to [phone] at any time.[facility] Allergies Active Allergy Reactions Criticality Noted Date [...] Active flash glucose scanning reader (FREESTYLE KYLIE) [facility] [place] 12/31/2021 Active flash glucose [...] unit) tablet,chewable Chew 600 mg daily. Active folic acid 1 mg tablet Take [...] daily. 90 tablet 3 06/05/2023 06/04/2024 Active NIFEdipine XL (Procardia XL) 30 mg 24 hr tablet Take 1 tablet (30 mg) by mouth once daily. 90 tablet 3 01/25/2024 Active Active Problems Problem Noted Date Diagnosed Date Dietary Folate Deficiency Anemia 04/04/2023 Malignant Neoplasm Of Breast Upper Outer Quadrant Female Right 01/26/2022 Cancer Staging:Pathologic stage from 12/21/2021:Stage Unknown(pT1b, pNX, cM0, G2, ER+, TN+, HER2-, Oncotype DX score: 17) - Unsigned Hyponatremia 03/08/2021 Diabetes Mellitus Type 2 01/31/2009 Overview (11/15/2016): DM II [Diabetes mellitus type II] Hypertensive Chronic Kidney Disease With Stage 1 Through Stage 4 Chronic Kidney Disease, Or Unspecified Chronic Kidney Disease 01/31/2009 Overview (11/15/2016): Hypertension Encounters Date Type Department Care Team Description 03/19/2024 Documentation Division of Nephrology and Hypertension in [place], [place] [address] [place] [address] Joshua Lopez Jr., D.O. 02/06/2024 3:30 PM CDT External Outreach Division of Nephrology and Hypertension in [place], [place] [address] [place] [address] Joshua Lopez Jr., D.O. Hypertensive Chronic Kidney Disease With Stage 1 Through Stage 4 Chronic Kidney Disease, Or Unspecified Chronic Kidney Disease (Primary Dx); Hyponatremia; Diabetes Mellitus Type 2 (HCC); Malignant Neoplasm Of Breast Upper Outer Quadrant Female Right (HCC) 01/22/2024 Refill Division of Nephrology and Hypertension in [place], [place] [address] [place] [address] Joshua Lopez Jr., D.O. Med Refill from Last 3 Months Immunizations Name Administration [...] How often do you attend chur or adventism services? More than 4 times per year 02/12/2022 Do you belong to any clubs o r organizations such as jehovah's witness groups, unions, fraternal or athletic groups, or [...] medical care, and heating? Somewhat hard 02/12/2022 [facility] [place] of Occupat ional Health - Occupational Stress [...] or slept in a custodial (including now)? No 02/12/2022 Nutrition Answer Date [...] Sign Reading Time Taken Comments Blood Pressure 120/60 02/06/2024 3:37 PM CDT Pulse 69 02/06/2024 3:37 PM CDT Temperature 36.5 ??C (97.7 ??F) 02/18/2022 1:38 PM CD T Respiratory Rate - - Oxygen Saturation - - Inhaled Oxygen Concentration - - Weight 74.4 kg (164 lb 0.4 oz) 02/06/2024 3:37 P M CDT Height 165.1 cm (5' 5) 09/11/2023 4:19 PM CDT Body Mass Index 27.29 09/11/2023 4:19 PM CDT Plan of Treatment Health Maintenance Due Date Last Done Comments Diabetic Office Visit with Foot Exam 1947 Dilated Eye Exam 1945 Hepatitis C Screening 1945 Urine Albumin 1945 Hepatitis B Vaccines (1 of 3 - Risk 3-dose series) 2007 Hemoglobin A1C 06/18/2020 12/18/2019 Depression Screening (Annual PHQ-2) 06/26/2023 Fall Risk Screen (Annual) 06/26/2023 COVID-19 Vaccine ( season) 2024 10/12/2023, 03/29/2023, 10/26/2022, Additional history exists Influenza Vaccine (#1) 2024 , 03/29/2022, 03/31/2021, Additional history exists Sodium Level 05/05/2024 05/05/2023, 04/26, 05/04/2023, Additional history exists Creatinine Level (Kidney Function Test) 07/25/2024 07/25/2023, 05/05/2023, 05/04/2023 Potassium Level 07/25/2024 07/25/2023, 04/26, 05/04/2023 DTaP,Tdap,and Td Vaccines (3 - Td or Tdap) 08/22/2024 08/22/2014, 01/22/2002, 01/22/2002 Office Visit for Blood Pressure Check / Re-check 02/05/2025 02/06/2024 Pneumococcal vaccine (65+ years) Completed 06/07/2018, 08/22/2014, 06/10/2010 Zoster Vaccines Completed 10/10/2018, 05/26, 03/11/2009 Mammogram Discontinued 12/21/2021, 10/24, 11/02/2021, Additional history exists RSV vaccine - (32-36 weeks) or 60+ years Completed 04/11/2023 Colonoscopy Discontinued 08/04/2023 Colonoscopy Discontinued 08/04/2023 Cologuard Discontinued 10/25/2023 Colorectal Cancer Screening Discontinued Colorectal Cancer Surveillance Discontinued CT Colonography Discontinued CT Colonography Discontinued FIT Discontinued HPV Vaccines Aged Out No longer eligi ble based on patient's age to complete this topic Procedures Procedure Name Priority Date/Time Associated Diagnosis Comments OUTSIDE MG MAMMOGRAM Routine 12/21/2021 10:00 AM CDT from Last 3 Months or [...]
--- OUTSIDE RECORDS SUMMARY | 2024-03-25 13:07 | XMS_ITS | Encounter Summary ---
Author Organization [facility] Address [address] [place] [address] Care Team Providers Care Mutuel Department Manager Name Role Phone Unavailable Primary Care Provider Unavailabl e Encounter Details Date Type Department Care Team (Late st Contact Info) Description 03/19/2024 Documentation Division of Nephrology and Hypertension in [place], [place] [address] [place] [phone] Joshua Lopez Jr., D.O. [address] [place] [address] Social History Tobacco Use Types Packs/Day Years [...] How often do you attend chur or hoahaoism services? More than 4 times per year 02/12/2022 Do you belong to any clubs o r organizations such as denominational groups, unions, fraternal or athletic groups, or [...] Somewhat hard 02/12/2022 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 Best regards DR Dowling documented in this encounter Plan of Treatment Not on file documented as of this encounter Visit Diagnoses Not on filedocumented in this encounter
--- OUTSIDE RECORDS SUMMARY | 2024-03-25 13:07 | XMS_ITS ---
Author Organization [facility] Address [address] [place] [address] Care Team Providers Care Display Decorator Name Role Phone Unavailable Primary Care Provider Unavailabl e Active Problems Problem Noted Date Diagnosed Date Dietary Folate Deficiency Anemia 04/04/2023 Malignant Neoplasm Of Breast Upper Outer Quadrant Female Right 01/26/2022 Cancer Staging:Pathologic stage from 12/21/2021:Stage Unknown(pT1b, pNX, cM0, G2, ER+, [place]+, HER2-, Oncotype DX score: 17) - Unsigned Hyponatremia 03/08/2021 Diabetes Mellitus Type 2 01/31/2009 Overview (11/15/2016): DM II [Diabetes mellitus type II] Hypertensive Chronic Kidney Disease With Stage 1 Through Stage 4 Chronic Kidney Disease, Or Unspecified Chronic Kidney Disease 01/31/2009 Overview (11/15/2016): Hypertension Current Oncology Plans No current plan information found. Past Plans No past plan information found. Radiation Treatments * Plan Last Treated On Elapsed Days Fractions Treated Prescribed Fraction Dose Prescribed Total Dose [id number] 02/18/2022 4 5 of 5 520 cGy 2,600 cGy Reference Point Last Treated On Elapsed Days Session Dose Total Dose [id number] 02/18/2022 4 520 cGy 2,600 cGy icru ref 02/16/2022 2 531 cGy 1,593 cGy
--- OUTSIDE RECORDS SUMMARY | 2024-03-25 13:07 | XMS_ITS | Encounter Summary ---
Author Organization [facility] Address [address] [place] [address] Care Team Providers Care Short Filler Bunch Machine Operator Name Role Phone Unavailable Primary Care Provider Unavailabl e Reason for Visit * Reason Comments Med Refill Encounter Details Date Type Department Care Team (Late st Contact Info) Description 01/22/2024 Refill Division of Nephrology and Hypertension in [place], [place] [address] [place] [phone] Joshua Lopez Jr., D.O. [address] [place] [address] Med Refill Social History Tobacco Use Types Packs/Day Years [...] often do you attend chur ch or synagogue services? More than 4 times per year 02/12/2022 Do you belong to any clubs o r organizations such as muslim groups, unions, fraternal or [...] medical care, and heating? Somewhat hard 02/12/2022 [facility] of Occupat ional Health - Occupational Stress [...]
--- OUTSIDE RECORDS SUMMARY | 2024-03-25 13:07 | XMS_ITS | Encounter Summary ---
Author Organization [facility] Address [address] [place] [address] Care Team Providers Care Cans Vacuum Tester Name Role Phone Unavailable Primary Care Provider Unavailabl e Reason for Visit * Appointment Request (Routine) - Closed Specialty Diagnoses / Procedures Referred By Caroline t Referred To Contact Nephrology and Hypertension Referral ID Status Reason Start Date Expiration Date Visits Re quested Visits Authorized [id number] Closed 01/05/2024 01/04/2025 1 1 Encounter Details Date Type Department Care Team (Latest Contact Info) Description 02/06/2024 3:30 PM CDT External Outreach Division of Nephrology and Hypertension in [place], [place] [address] [place] [address] Joshua Lopez Jr., D.O. [address] [place] [address] Hypertensive Chronic Kidney Disease With Stage 1 [...] How often do you attend chur or moravian services? More than 4 times per year 02/12/2022 Do you belong to any clubs o r organizations such as spiritism groups, unions, fraternal or [...] medical care, and heating? Somewhat hard 02/12/2022 [facility] [place] of Occupat ional Health - Occupational Stress [...] place to sleep or slept in a fci (including now)? No 02/12/2022 Nutrition Answer Date [...] Pulse 69 02/06/2024 3:37 PM CDT Temperature - - Respiratory Rate - - Oxygen Saturation - - Inhaled Oxygen Concentration - - Weight 74.4 kg (164 lb 0.4 oz) 02/06/2024 3:37 P M CDT Height - - Body Mass Index 27.29 09/11/2023 4:19 PM CDT documented in this encounter Progress Notes * Joshua Lopez Jr., DGianna. - 02/06/2024 3:30 PM CDT Referring Provider DR Rome SUBJECTIVE REASON FOR VISIT [facility] Follow-up regards diabetes mellitus type 2 and hypertension with proteinuria/microalbuminuria HISTORY OF PRESENT ILLNESS Ms. Cortez is a 78 y.o. female who presents with the above matters. We spent the majority of the visit today discussing her diabetes, and the challenges she is experiencing. Currently she is having 3 main meals a day, and at least 2 if not 3 snacks. And, she is administering insulin with each of her meal and snack events. She is in a pattern where she is constantlyfighting low and high blood sugars. This has been quite burdensome for her. Although her hemoglobin A1c is stable at 7.2%, she relates episodes of sugars rapidly declining from 250-80 following administration of insulin with either snacks or meals. She also has issues in theevening where prior to bedtime her sugars are running in the 180s to 250s range, then immediately after she goes to bed she is experiencing sugars in the 80s. We discussed protein containing snacks, and decreasing the supplemental insulin with her meals, and decreasing the frequency to just 3 timesdaily. This would necessarily need to shift her long-acting insulin regimen as well which she uses in the morning. We also discussed the troublesome and difficult matter of her chronic hyponatremia, her sodium levels are quite stable at 131 mEq per L. Discussed again this issue being 1 of ADH effect, and I explained the physiology to her. And that this is not a sodium deficit, but a water excess. Also discussedthis is not a major issue for her as I suspect her body is accommodated to a lower osmolality. Her blood pressures been excellent! This had previously been very difficult to manage and I note that her blood pressure now is routinely in the 130s over 60s without orthostatic issues. No constitutional complaints, no cardiovascular issues, she is however still struggling with quite a bit of left knee pain, shoulder pain, and back pain. Past Medical History: Diagnosis Date Anemia Of [...] Rfl: flash glucose scanning reader (FREESTYLE KYLIE) [facility] [place], , Disp: , Rfl: flash glucose sensor [...] a day., Disp: , Rfl: NIFEdipine XL (Procardia XL) 30 mg 24 hr tablet, Take 1 tablet (30 mg) by mouth once daily., Disp: 90 tablet, Rfl: 3 omeprazole (PriLOSEC) 20 mg [...] systems reviewed and are negative. OBJECTIVE BP 120/60 Pulse 69 Wt 74.4 kg BMI 27.29 kg/m?? PHYSICAL EXAMINATION General: Awake alert oriented HEENT: NEEL, EOMI, Mucous membranes moist, no oral lesions Neck: No Masses, No Bruits Lungs: Clear to ascultation Heart: Regular Rate and Rhythm, No ectopy, she does have a 2/6 systolic ejection murmur heard best at the apex, and an additional right upper sternal edge 2/6 systolic ejection murmur, with a coolingnature. There is an intact S2 Abdomen: Soft, Non-tender Extremities: No cyanosis, No clubbing: She has some left greater than right lower extremity pittingedema Neuro: Cranial Nerves intact, Gait is normal, strength grossly normal Skin: no suspicious lesions identified Psychiatric: Normal affect DIAGNOSTICS Note normal serum creatinine microalbumin to creatinine ratio 50 milligrams/gram, hemoglobin A1c 7.2% hemoglobin 11.4 ASSESSMENT / PLAN #1 Hypertensive Chronic Kidney Disease With Stage 1 Through Stage 4 Chronic Kidney Disease, Or Unspecified Chronic Kidney Disease I am well satisfied that we have obtained excellent blood pressure control. Strongly encouraged herto continue on a low-sodium diet, avoid over-hydration. Going forward: 1. Goal blood pressure less than 130s over 80s. 2. We will continue with her carvedilol as her agent to control her blood pressure. 3. Low-sodium diet less than 2000 mg sodium per day 4. Asked her to augment her protein intake as best as possible keeping in mind the low-sodium guardrails, which is quite challenging. #2 Hyponatremia This is a reset Osmo stat, we will not make changes to her regimen, other than 0 continue to encourage her to foster at least 80 g of protein intake per day. #3 Diabetes Mellitus Type 2 (HCC) While her hemoglobin A1c is excellent, she is struggling. Please see my discussion as above under the subjective component of her evaluation today. My recommendations going forward: 1. She should stop supplementing her snacks with short-acting insulin 2. Would accept transient increases in sugars into the 250 range, and if these remain longstanding we could increase her meal related, 3 time per day, short- acting insulin supplements. 3. I would suggest long-acting Lantus, glargine insulin at 16 units in the morning, and this could be adjusted as necessary depending on her ability to exercise, given her knee issues, and her sugar levels. 4. She could consider an insulin pump or close loop system, she certainly motivated to make changes. 5. Strongly encouraged increased protein intake as able to stabilize sugars. #4 Malignant Neoplasm Of Breast Upper Outer Quadrant Female Right (HCC) She is doing well from this perspective no evidence of active disease at the current time she is being followed carefully. Total time: 35 minutes Counseling Time: 30 minutes Joshua Lopez Jr., D.O. documented in this encounter Plan of Treatment Not on file documented as of this encounter Visit Diagnoses Diagnosis Hypertensive Chronic Kidney Disease With Stage 1 Through Stage 4 Chronic Kidney Disease, Or Unspecified Chronic Kidney Disease- Primary Hyponatremia Diabetes Mellitus Type 2 (HCC) Malignant Neoplasm Of Breast Upper Outer Quadrant Female Right (HCC) documented in this encounter
--- OUTSIDE RECORDS SUMMARY | 2024-03-25 13:07 | XMS_ITS | Referral Summary ---
Author Organization [facility] Address [address] [place] [address] Care Team Providers Care Senior Systems Analyst Name Role Phone Unavailable Primary Care Provider Unavailabl e Source Comments Patient records contain information from all sites at [facility]. For routine questions regarding patient records, call [phone] during business hours, M-F 8:00 AM - 5:00 PM Central Time. Record requests for emergency care only can be directed to [phone] at any time.[facility] Encounters Date Type Department Care Team Description 03/19/2024 Documentation Division of Nephrology and Hypertension in [place], [place] [address] [place] [address] Joshua Lopez Jr., D.O. 02/06/2024 3:30 PM CDT External Outreach Division of Nephrology and Hypertension in [place], [place] [address] [place] [address] Joshua Lopez Jr., D.O. Hypertensive Chronic Kidney Disease With Stage 1 Through Stage 4 Chronic Kidney Disease, Or Unspecified Chronic Kidney Disease (Primary Dx); Hyponatremia; Diabetes Mellitus Type 2 (HCC); Malignant Neoplasm Of Breast Upper Outer Quadrant Female Right (HCC) 01/22/2024 Refill Division of Nephrology and Hypertension in [place], [place] [address] [place] [address] Joshua Lopez Jr., D.O. Med Refill from Last 3 Months Allergies Active Allergy [...] needed 12/20/2021 Active flash glucose scanning reader (Project [employer] KYLIE) misc 12/31/2021 Active flash glucose sensor [...] Chronic Kidney Disease 01/31/2009 Overview (11/15/2016): Hypertension Immunizations Name Administration Dates Next Due [...] How often do you attend chur or anglican services? More than 4 times per year [...] medical care, and heating? Somewhat hard 02/12/2022 [facility] of Occupat ional Health - Occupational Stress [...]
--- OUTSIDE RECORDS SUMMARY | 2024-03-25 13:07 | XMS_ITS ---
Author Organization [facility] Address [address] [place] [address] Care Team Providers Care Well Service Floorperson Name Role Phone Unavailable Unavailable Unavailable Surgery Details Not on file Complications Check Surgery Details section. Procedure Estimated Blood Loss Check Surgery Details section. Procedure Findings Check Surgery Details section. Procedure Specimens Taken Check Surgery Details section.
== END 2024-03-25 14:16 | disposition home or self-care (01) ==
PROVIDERS: PCP Internal Medicine; Visit Provider Internal Medicine
DX: I10 Essential (primary) hypertension (principal)
CPT/HCPCS: 80048

== ENCOUNTER 2024-04-15 09:06 | Day surgery (SDC) | payer MEDICARE, SELFPAY ==
--- OUTSIDE RECORDS SUMMARY | 2024-04-15 09:12 | XMS_ITS | Clinical Summary ---
Author Organization [facility] Address [place], [place] [address] Care Team Providers Care Shop Blacksmith Name Role Phone Lina Meléndez MD Primary Care Provider [phone] Allergies Active Allergy Reactions Criticality Noted Date [...] mg by mouth two times daily. 2 6 Active atorvastatin (LIPITOR) 10 mg tabletIndications: Hyperlipidemia LDL goal <70 Take 1 tablet by mouth at bedtime. 30 tablet 6 Active albuterol HFA 90 mcg/actuation inhaler INHALE TWO-FOUR PUFFS BY MOUTH EVERY FOUR-SIX HOURS NEEDED 0 Active miscellaneous medical supply (Blood Pressure Cuff) miscIndications:Es sential hypertension As directed. Home blood pressure monitoring for Essential hypertension Diagnosis. Upper arm automatic Cuff. 1 Each 1 Active carvediloL (COREG) 6.25 mg tablet Take 6.25 mg by mouth 2 times daily with meals. 2 Active Biotin 1 mg tablet Take 5,000 mg by mouth. Active omeprazole (PRILOSEC) 20 mg Delayed-Release capsule Take 20 mg by mouth two times daily before meals. 2 Active beclomethasone dipropionate (Qvar RediHaler) 80 mcg/actuation HFAb HFA inhaler Inhale 2 Puffs by mouth two times daily. 2 Active eszopiclone (LUNESTA) 2 mg tablet Take 2 mg by mouth at bedtime. 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Splinter.meE) 2 Active continuous glucose monitor SENSOR KIT (Splinter.meE) 2 Active bd insulin pen needle uf mini 31 gauge x /16 Use up to 6 times daily 3 Active valACYclovir (VALTREX) 500 mg tablet Take 1,000 mg by mouth one time if needed (Cold sores). 2 Active calcium carbonate-vitamin D3 600 mg-25 mcg (1,000 unit) cap Take by mouth once daily. Active glucosamine HCl/chondroitin daniel (GLUCOSAMINE-CHOND ROITIN ORAL) Take 1 Capsule by mouth once daily. Active acetaminophen (TYLENOL) 325 mg tabletIndications: Post-op pain Take 2 Tablets (650 mg) by mouth every 4 hours if needed (mild pain). Max acetaminophen dose: 4000mg in 24 hrs. 100 Tablet 3 Active NIFEdipine (PROCARDIA XL) 30 mg extended-release tablet Take 30 mg by mouth once daily before a meal. Active insulin aspart, U-100, (NovoLOG FlexPen U-100 Insulin) 100 unit/mL (3 mL) pen Inject 4-10 units subcutaneous three times daily before meals. Active timoloL maleate (TIMOPTIC) 0.5 % ophthalmic solution APPLY 1 DROP TO EACH FINGERTIP ONCE DAILY AT BEDTIME NEEDED.* 3 Active gabapentin (NEURONTIN) 300 mg capsule Take 300 mg by mouth three times daily. Active clopidogreL (PLAVIX) 75 mg tabletIndications: Cerebrovascular accident (CVA), unspecified mechanism (HC) Take 1 Tablet (75 mg) by mouth every morning. May resume on 05/08/23 0 3 Active WalkerIndications: Lumbar radiculopathy Walker with front wheels for home use for 3 months. 1 Each 3 Active insulin glargine, U-100, (Lantus U-100 Insulin) 100 unit/mL injectionIndicatio ns:Type 2 diabetes mellitus without complication, with long-term current use of insulin (HC) Inject 12 units subcutaneous once daily. 10 mL 3 Active CPAPIndications:OS A (obstructive sleep apnea) CPAP machine for home use at pressure 4.6-8.6cmw, nasal mask x1/3month with nasal pillows x 2/mo 1 Each 11 3 Active durable medical equipment (DME)Indications:C losed displaced fracture of third metatarsal bone of left foot, initial encounter SQUARED TOE POST OP SHOE, MEDIUM, REF: [phone] 1 Each 4 Active amoxicillin-clavul anate (Augmentin) 875-125 mg tabletIndications: skin and skin structure infection Take 1 Tablet by mouth two times daily with meals for 10 days. 20 Tablet 4 04/01/20 24 Discontinue d(*Error/Or anshu entry error) amoxicillin-clavul anate (Augmentin) 875-125 mg tabletIndications: skin and skin structure infection Take 1 Tablet by mouth two times daily with meals for 10 days. 20 Tablet 4 04/11/20 24 Active Problems Problem Noted Date Diagnosed Date [...] Encounters Date Type Department Care Team Description 04/12/2024 Travel 04/10/2024 Telephone [facility] [address] [facility] [address] [place] [address] Gabriela Garcia MD Appointment Request 04/10/2024 Travel 04/08/2024 Telephone [facility] [address] [address] Lalito Perdue, SURGERY RESCHEDULE 04/03/2024 3:00 PM CDT Ancillary Procedure [facility] [address] [place] [address] 04/03/2024 2:45 PM CDT Office Visit [facility] [address] [place] [address] Rex Fink DPM Follow Up (Left foot ) 04/03/2024 Travel 04/02/2024 2:20 PM CDT Ancillary Procedure [facility] [address] [facility] [address] [place] [address] 04/02/2024 2:00 PM CDT Office Visit [facility] [address] [facility] [address] [place] [address] Lalito Perdue, Hip Pain/problem (Right Hip Pain) 04/02/2024 Travel 04/02/2024 Nurse Triage [facility] Centralized Nurse Triage Lina Meléndez MD Lower Back Pain (Severe x 4 to 5 days.) 03/29/2024 Travel 03/28/2024 Travel 03/19/2024 3:45 PM CDT Ancillary Procedure [facility] [address] [place] [address] 03/19/2024 3:30 PM CDT Office Visit [facility] [address] [place] [address] Rex Fink DPM Consult (Left final surgical consult, DOS 04/01/24/Right foot pain since 03/18/24) 03/19/2024 Travel 03/14/2024 3:10 PM CDT Ancillary Procedure [facility] [address] [facility] [address] [place] [address] 03/14/2024 2:45 PM CDT Office Visit [facility] [address] [facility] [address] [place] [address] Lalito Perdue DO Knee Pain/problem (Left knee pain) 03/14/2024 Orders Only [facility] [address] [facility] [address] [place] [address] Lalito Perdue, <No scans attached> 03/14/2024 Travel 03/12/2024 Medical Messaging [facility] [address] [place] [address] Rex Fink DPM left foot surgery 03/12/2024 Telephone [facility] [address] [facility] [address] [place] [address] Lalito Perdue DO CALLBACK (scheduling left knee surgery ) 03/07/2024 2:45 PM CDT Office Visit [facility] [address] [facility] [address] [place] [address] Lalito Perdue, Follow Up (Pain due to total left knee replacement) 03/07/2024 Travel 02/20/2024 3:00 PM CDT Office Visit [facility] [address] [place] [address] Lalito Perdue, Knee Pain/problem (Left Knee Pain S/P Total Knee Arthroplasty, DOS: 2003) 02/20/2024 Travel 02/13/2024 1:45 PM CDT Office Visit [facility] [address] [place] [address] Rex Fink DPM Consult (Left foot pain) 02/13/2024 Travel 01/26/2024 Telephone [facility] [address] [place] [address] Corona Dixon MD Results (Bone Scan) 01/24/2024 Orders Only [facility] [address] [place] [address] Corona Dixon MD 1 scan: (1-Ord) [place] BONE 3 PHASE, 01/18/2024 01/17/2024 Telephone [facility] [address] [place] [address] Corona Dixon MD Questions 01/15/2024 Telephone [facility] [address] [place] [address] Corona Dixon MD nuc med from Last 3 Months Immunizations Name Administration [...] Sex Assigned at Female 08/31/2020 9:33 AM DOMESTIC VIOLENCE ADVOCATE Gender Identity Female 08/31/2020 9:33 AM DOMESTIC VIOLENCE ADVOCATE Sexual Orientation Straight 08/31/2020 9: 33 AM DOMESTIC VIOLENCE ADVOCATE Obstetrics History Para Term AB IAB SAB Ectopic Multiple Livin g Live Births 6 6 5 1 0 0 0 0 0 5 Date Outcome GA Total Labor Labor/2nd/3rd Weight Sex Type Anes PTL Siri A1 A5 Name Clin Term Term Term Term Term Comments 1 , 1 Last Filed Vital Signs Vital Sign Reading Time Taken Comments Blood Pressure 155/75 04/03/2024 2:57 PM CDT Pulse 74 04/03/2024 2:57 PM CDT Temperature 36.7 ??C (98 ??F) 01/01/2024 1:42 PM CDT Respiratory Rate 16 05/05/2023 7:27 AM DOMESTIC VIOLENCE ADVOCATE Oxygen Saturation 99% 04/03/2024 2:57 PM CDT Inhaled Oxygen Concentration - - Weight 73.6 kg (162 lb 3.2 oz) 11/03/2023 2:25 P M CDT Height 165.1 cm (5' 5) 06/07/2023 2:05 PM DOMESTIC VIOLENCE ADVOCATE Body Mass Index 26.99 06/07/2023 2:05 PM DOMESTIC VIOLENCE ADVOCATE Plan of Treatment Upcoming Encounters Date Type Department Care Team (Late st Contact Info) Description 04/16/2024 10:20 AM CDT Office Visit [facility] [address] [place] [address] Stevan Nixon MD [address] [place] [address] 04/17/2024 3:15 PM CDT Office Visit [facility] [address] [place] [address] Rex Fink DPM [address] [place] [address] 04/22/2024 11:00 AM CDT Office Visit [facility] [address] [facility] [address] [place] [address] Shadi Higuera MD [address] [facility] [address] [place] [address] 05/01/2024 1:30 PM DOMESTIC VIOLENCE ADVOCATE Office Visit [facility] [address] [place] [address] Rex Fink DPM [address] [place] [address] 05/21/2024 3:15 PM DOMESTIC VIOLENCE ADVOCATE Office Visit [facility] [address] [facility] [address] [place] [address] Lalito Perdue, [address] [place] [address] 05/29/2024 3:30 PM DOMESTIC VIOLENCE ADVOCATE Office Visit [facility] [address] [place] [address] Rex Fink DPM [address] [place] [address] 06/07/2024 7:15 AM DOMESTIC VIOLENCE ADVOCATE Hospital Encounter [facility] [address] [place] [address] Lalito Perdue, [address] [place] [address] 06/07/2024 7:15 AM DOMESTIC VIOLENCE ADVOCATE - 06/07/2024 11:01 AM DOMESTIC VIOLENCE ADVOCATE Surgery [facility] [address] [place] [address] [place] [address] [place] [address] ARTHROPLASTY REVISION KNEE 06/20/2024 3:15 PM DOMESTIC VIOLENCE ADVOCATE Office Visit [facility] [address] [facility] [address] [place] [address] [place] [address] [place] [address] 06/27/2024 2:30 PM DOMESTIC VIOLENCE ADVOCATE Office Visit [facility] [address] [place] [address] Francesco Huffman MD [address] [place] [address] 08/08/2024 3:15 PM DOMESTIC VIOLENCE ADVOCATE Office Visit [facility] [address] [facility] [address] [place] [address] [place] [address] [place] [address] Scheduled Procedures Name Priority Associated Diagnoses Date/Ti me ARTHROPLASTY REVISION KNEE Elective Mechanical loosening of internal left knee prosthetic joint, subsequent encounter H/O total knee replacement, left 06/07/2024 7:15 AM DOMESTIC VIOLENCE ADVOCATE Health Maintenance Due Date Last Done Comments [...] 18-79 Completed 12/08/2016 COVID-19 vaccine series Completed 03/01/20 24, 10/12/2023, 03/29/2023, Additional history exists Medical Devices Implanted Type Area Repair Service Dispatcher Device Identifier Shelf Expiration Date Model / Serial / Lot [id number] 1-4mm 30cc Medtronic Chips Canclls Freeze Dried Implanted:Qty: 1 on 12/06/2016 by Gurinder Mc MD at [facility] Explanted:at [facility] (Quantity not on file) Spine Medtronic Spine/Ortho 08/24/2021 [id number]# / [id number] / Spacer Lmbr [id number] [place] Convex Stra Plif - [id number] Implanted:Qty: 1 on 12/06/2016 by Gurinder Mc MD at [facility] Spine [employer] 07/26/2026 [id number] # / / [id number] Matrix 3cc [place] Dbf Putty Dbm Implanted:Qty: 1 on 12/06/2016 by Gurinder Mc MD at [facility] Explanted:at [facility] (Quantity not on file) Spine Medtronic Spine/Ortho 09/08/2018 [id number]# / [id number] / Screw Lmbr Post 5.5x40mm Vitality Va - [id number] Implanted:Qty: 1 on 12/06/2016 by Gurinder Mc MD at [facility] Spine [employer] Spine 07.26594. 032# / / Screw Lmbr Post 5.5x45mm Vitality Va - [id number] Implanted:Qty: 2 on 12/06/2016 by Gurinder Mc MD at [facility] Spine [employer] Spine 07.17377. 033# / / Set Screw Lmbr 5.5-6mm Vitality Shear Off - [id number] Implanted:Qty: 4 on 12/06/2016 by Gurinder Mc MD at [facility] Spine [employer] Spine 07.79519. 001# / / Avni Lmbr 40x5.5mm Vitality Cvd Titnm - [id number] Implanted:Qty: 2 on 12/06/2016 by Gurinder Mc MD at [facility] Spine [employer] Spine 07.31989. 005# / / Spacer Lmbr [id number] [place] Convex Stra Plif - [id number] Implanted:Qty: 1 on 12/06/2016 by Gurinder Mc MD at [facility] Spine [employer] [id number] # / / Screw Lmbr Post 6.5x40mm Vitality Va - [id number] Implanted:Qty: 1 on 12/06/2016 by Gurinder Mc MD at [facility] Spine [employer] Spine 07.61900. 074# / / .[id number] Double Ended K-Wire Implanted:Qty: 2 on 12/03/2018 by Rex Fink DPM at [facility] Right: Foot N/A / / Interstim Basic Evaluation Lead Implanted:Qty: 1 on 09/28/2022 by Michelle Colmenares, DO at [facility] Medtronic 01/26/2024 [id number] / / [id number] Interstim Basic Evaluation Kit Implanted:Qty: 1 on 09/28/2022 by Michelle Colmenares, DO at [facility] Med[employer]onic 08/27/2023 [id number] / / [id number] Interstim X Surescan Mri Lead And Smart Clinical Quality Analyst - [id number] Implanted:Qty: 1 on 10/18/2022 by Michelle Colmenares DO at [facility] Right: Buttock Medtronic Pain Therapy 02/07/2024 [id number] / [id number] / Lead Kit 4.32mm Spacing 28cm Length Interstim - [id number] Implanted:Qty: 1 on 10/18/2022 by Michelle Colmenares DO at [facility] Right: Buttock Medtronic Pain Therapy 01/17/2024 [id number] / / [id number] Neuro Tyrx Absorb Antibacterial - [id number] Implanted:Qty: 1 on 10/18/2022 by Michelle Colmenares DO at [facility] Right: Buttock Medtronic 03/20/2023 [id number] / / [id number] Spacer Lmbr [id number] [place] Convex Stra Tlif - [id number] Implanted:Qty: 1 on 05/03/2023 by Gurinder Mc MD at [facility] N/A: Spine [employer] 09/13/2026 [id number] / / [id number] Avni Lmbr 95x5.5mm Vitality Cvd Titnm - [id number] Implanted:Qty: 1 on 05/03/2023 by Gurinder Mc MD at [facility] N/A: Spine [employer] Spine 07.63590. 016 / / Avni Lmbr 90x5.5mm Vitality Cvd Titnm - [id number] Implanted:Qty: 1 on 05/03/2023 by Gurinder Mc MD at [facility] N/A: Spine [employer] Spine 07.86910. 015 / / Set Screw Lmbr 5.5-6mm Vitality Torque - [id number] Implanted:Qty: 8 on 05/03/2023 by Gurinder Mc MD at [facility] N/A: Spine [employer] Spine 07.77853. 001 / / Screw Spinal 4.5x45mm Poly Tl Implanted:Qty: 1 on 05/03/2023 by Gurinder Mc MD at [facility] N/A: Spine [id number] / / Description:SCREW SPINAL 4.5 X45MM POLY TL Screw Spinal 5.5x45mm Poly Tl Implanted:Qty: 3 on 05/03/2023 by Gurinder Mc MD at [facility] N/A: Spine [id number] / / Description:SCREW SPINAL 5.5 X45MM POLY TL Bone 1-4mm 60cc Medtronic Fine Canclls Freeze Dried - [id number] Implanted:Qty: 1 on 05/03/2023 by Gurinder cM MD at [facility] N/A: Spine Medtronic Spine/Ortho 09/21/2026 [id number] / [id number] / Bone Matrix 6cc [place] Dbf Putty Dbm - [id number] Implanted:Qty: 1 on 05/03/2023 by Gurinder Mc MD at [facility] N/A: Spine Medtronic Spine/Ortho 04/11/2025 [id number] / [id number] / Procedures Procedure Name Priority Date/Time Associated Diagnosis Comments XR FOOT 3 VIEWS LEFT Routine 04/03/2024 2:49 PM CDT Foot pain, left XR HIP 2 OR 3 VIEWS W PELVIS RIGHT Routine 04/02/2024 2:28 PM CDT Pain of right hip XR FOOT 3 VIEWS LEFT Routine 03/19/2024 [...] after total replacement of left knee joint EXPOSURE (BBF) ANTI HCV STAT 12/08/2016 1:07 AM CDT from Last 3 Months or Most Recently Relevant to Health Maintenance Results * XR FOOT 3 VIEWS LEFT (04/03/2024 2:49 PM CDT) Only the most recent of2 resultswithin the time period is included. Anatomical Region Laterality Modality FEET, FOOT L Computed Radiogr aphy 04/04/2024 2:51 PM CDT Narrative 04/04/2024 2:51 PM CDT For Patients: ??As a result of the Cures Act, medical imaging exams and procedure reports are released immediately into your electronic medical record. ??You may view this report before your referring provider. ??If you have questions, please contact your health care provider. Indication: Left foot pain Technique: Three views of the left foot Comparison: Left foot radiographs 03/19/2024 Findings/impression : Minimally displaced, mildly plantar angulated fracture of the distal middle toe metatarsal is identified. Stable pes planus, hallux valgus deformity with moderate to severe degenerative changes at the great toe metatarsophalangeal joint, severe degenerative changes within the midfoot and 5 millimeter plantar calcaneal spur. Dictated by Dat Colón MD @ 04/04/2024 2:51:45 PM (Electronically Signed) Procedure Note Dat Colón MD - 04/04/2024 For Patients: As a result of the Cures Act, medical imagingexams and procedure reports are released immediately into your electronicmedical record. You may view this report before your referring provider.If you have questions, please contact your health care provider. Indication: Left foot pain Technique: Three views of the left foot Comparison: Left foot radiographs 03/19/2024 Findings/impression : Minimally displaced, mildly plantar angulated fracture of the distalmiddle toe metatarsal is identified. Stable pes planus, hallux valgusdeformity with moderate to severe degenerative changes at the great toemetatarsophalangeal joint, severe degenerative changes within the midfootand 5 millimeter plantar calcaneal spur. Dictated by Dat Colón MD @ 04/04/2024 2:51:45 PM (Electronically Signed) Rex Fink DPMaria De Jesus GENERAL IMAGING * XR HIP 2 OR 3 VIEWS W PELVIS RIGHT (04/02/2024 2:28 PM CDT) Anatomical Region Laterality Modality HIPS, HIPR, Pelvis Digital Radio graphy 04/03/2024 12:0 9 PM CDT Narrative 04/03/2024 12:09 PM CDT For Patients: ??As a result of the Cures Act, medical imaging exams and procedure reports are released immediately into your electronic medical record. ??You may view this report before your referring provider. ??If you have questions, please contact your health care provider. INDICATION: Right hip pain. TECHNIQUE: AP pelvis and 2 views of the right hip. FINDINGS: Generator pack from a stimulator device overlies the right femoral neck and head obscuring portions of the bone. The right hip joint space appears preserved. No pelvic or hip fracture identified. Dictated by Ag Thompson MD @ 04/03/2024 12:09:43 PM (Electronically Signed) Procedure Note Ag Thompson MD - 04/03/2024 For Patients: As a result of the s Act, medical imagingexams and procedure reports are released immediately into your electronicmedical record. You may view this report before your referring provider.If you have questions, please contact your health care provider. INDICATION: Right hip pain. TECHNIQUE: AP pelvis and 2 views of the right hip. FINDINGS: Generator pack from a stimulator device overlies the right femoral neckand head obscuring portions of the bone. The right hip joint space appearspreserved. No pelvic or hip fracture identified. Dictated by Ag Thompson MD @ 04/03/2024 12:09:43 PM (Electronically Signed) Lalito Perdue DO GENERAL IMAGING * XR LEG LENGTH (03/14/2024 3:18 PM CDT) Anatomical Region Laterality Modality LEGS, FEMURS Digital Radiogra phy 03/16/2024 8:02 AM CDT Narrative 03/16/2024 8:02 AM CDT For Patients: ??As a result of the s Act, medical imaging exams and procedure reports [...] SEDIMENTATION RATE (02/20/2024 3:44 PM CDT) Pathologist [facility] SEDIMENTATION RATE 8 <30 mm/hr 2023 10:41 PM CDT [facility] [facility] Blood BLOOD SPECIMEN / Unknown Venipuncture / Unknown 02/20/2024 3:44 PM CDT 02/20/2024 3:44 PM CDT Lalito Perdue DO [facility]OLOGY [facility] [address] [place] [address], * C-REACTIVE PROTEIN (02/20/2024 3:44 PM CDT) Pathologist [facility] C-REACTIVE PROTEIN <0.3 <0.5 mg/dL 02/20/2024 11:05 PM CDT [facility] [employer] [facility] Blood BLOOD SPECIMEN / Unknown Venipuncture / Unknown 02/20/2024 3:44 PM CDT 02/20/2024 3:44 PM CDT Lalito Perdue DO CHEMISTRY Performing Organization Address [facility] de Phone Number [facility] [address] [place] [address], * D-DIMER,QUANTITATIVE (02/20/2024 3:44 PM CDT) Pathologist [facility] D-DIMER,QUANTI TATIVE 0.54 See comment FEU mcg/mL 02/21/2024 1:32 AM CDT [facility] Blood BLOOD SPECIMEN / Unknown Venipuncture / Unknown 02/20/2024 3:44 PM CDT 02/20/2024 3:44 PM CDT Narrative [facility] - 02/21/2024 1:32 AM CDT The cut off value for exclusion of Deep Vein Thrombosis and / or Pulmonary Embolism is 0.50 FEU mcg/mL For patients greater than 50 years of age the upper limit is age dependent and was calculated with the formula: ?? (PATIENT AGE x 0.01) FEU mcg/mL = Upper limit of normal range Lalito Perdue DO HEMATOLOGY Performing Organization Address [facility] Co de Phone Number [facility] [address] [address], [place] * [place] BONE SCAN 3 PHASE (01/18/2024 12:00 AM CDT) Anatomical Region Laterality Modality SKELETON Other Corona Dixon MD [place] * Patient Source ANTI HCV (12/08/2016 1:07 AM CDT) Pathologist [facility] HEPATITIS C ANTIBODY Non-Reacti ve Non-Reacti ve 12/08/2016 2:31 AM CDT [facility] Blood BLOOD SPECIMEN / Unknown Venipuncture / Unknown 12/08/2016 1:07 AM CDT 12/08/2016 1:28 AM CDT Narrative [facility] - 12/08/2016 2:31 AM CDT Antibodies to HCV not detected; does not exclude the possibility of exposure to HCV. Meghann Humphreys MD SEND OUTS [facility] [address] [place] [address], from Last 3 Months or Most Recently Relevant to Health Maintenance Advance Directives Documents on File Type Date Recorded Patient Supervisor [employer] Expl anation Healthcare Directive 12/31/2015 7:52 AM [...] Comments Code Status Discussion: Discussed Care Teams Shop Blacksmith Relationship Specialty Start Date End Date Lina Meléndez MD [address] [place] [id number] PCP - General Internal Medicine 11/01/21
--- OUTSIDE RECORDS SUMMARY | 2024-04-15 09:13 | XMS_ITS ---
Author Organization [facility] Address [address] [place] [address] Care Team Providers Care Plasterer Spot Name Role Phone Unavailable Unavailable Unavailable Surgery Details Not on file Complications Check Surgery Details section. Procedure Estimated Blood Loss Check Surgery Details section. Procedure Findings Check Surgery Details section. Procedure Specimens Taken Check Surgery Details section.
--- OUTSIDE RECORDS SUMMARY | 2024-04-15 09:13 | XMS_ITS | Encounter Summary ---
Author Organization [facility] Address [address] [place] [address] Care Team Providers Care Rn Lpn Lvn Name Role Phone Unavailable Primary Care Provider Unavailabl e Reason for Visit * Reason Comments Med Refill Encounter Details Date Type Department Care Team (Late st Contact Info) Description 01/22/2024 Refill Division of Nephrology and Hypertension in [place], [place] [address] [place] [phone] Joshua Lopez Jr., D.O. [address] [place] [address] Med Refill Social History Tobacco Use Types [...] often do you attend chur ch or orthodox services? More than 4 times per year 02/12/2022 Do you belong to any clubs o r organizations such as rastafari groups, unions, fraternal or [...] medical care, and heating? Somewhat hard 02/12/2022 [facility] - Occupational Stress [...] degree (e.g., MD, DDS, DVM, FALLON) 02/12/2022 Comments Unknown Sex and Gender Information Value Date Recorded Sex Assigned at Not on file Legal Sex Female 12:47 PM [employer] Gender Identity Not on file Sexual Orientation Not on file documented as of this encounter Plan of Treatment Not on file documented as of this encounter Visit Diagnoses Not on filedocumented in this encounter
--- OUTSIDE RECORDS SUMMARY | 2024-04-15 09:13 | XMS_ITS | Clinical Summary ---
Author Organization [facility] Address [address] [place] [address] Care Team Providers Care Marketing Research Analyst Name Role Phone Lina Meléndez MD Primary Care Provider [phone] Source Comments You are receiving this document as you are listed as the primary care provider,follow-up provider, or the patient has been referred to you for consultation.This is in compliance with the Medicare and[place]health[place] EHR Incentive Program,which states Providers who transition their patient to another setting of careor provider of care or refers their patient to another provider of care shouldprovide summary care record for each transition of care or referral. [employer] Allergies Active Allergy Reactions Criticality Noted Date [...] (07/10/2019): Added automatically from request for surgery [id number] TC (obstructive sleep apnea) 11/05/2018 Arthritis of [...] Comments Blood Pressure 147/63 07/17/2019 2:34 PM STRATEGIC DEBRIEFING SPECIALIST Pulse 75 07/17/2019 2:34 PM STRATEGIC DEBRIEFING SPECIALIST Temperature 36.7 ??C (98.1 ??F) 07/17/2019 2:34 PM CS T Respiratory Rate 18 07/17/2019 2:34 PM STRATEGIC DEBRIEFING SPECIALIST Oxygen Saturation 99% 07/17/2019 2:34 PM STRATEGIC DEBRIEFING SPECIALIST Inhaled Oxygen Concentration - - Weight 75 kg (165 lb 6.4 oz) 07/16/2019 10:19 AM STRATEGIC DEBRIEFING SPECIALIST Height 165.1 cm (5' 5) 07/16/2019 10:19 AM STRATEGIC DEBRIEFING SPECIALIST Body Mass Index 27.52 07/16/2019 10:19 AM STRATEGIC DEBRIEFING SPECIALIST Plan of Treatment Health Maintenance Due [...] patient's age to complete this topic RSV Aged Out No longer eligi ble based on patient's age to complete this topic MCV4 Aged Out No longer eligi ble based on patient's age to complete this topic Medical Devices Implanted Type Area Energy Infrastructure Engineer Device Identifier Shelf Expiration Date Model / Serial / Lot Chip Anita Brunner 30cc - [id number] Implanted:Qty : 1 on 07/16/2019 by Edelmira Rodriguez MD at [facility] DEVICE Left: SHOULDER Medtronic - [employer] 08/14/2023 [id number] / / [id number] Scr Star Lk Sftp 3.5x48 - [id number] Implanted:Qty : 1 on 07/16/2019 by Edelmira Rodriguez MD at [facility] DEVICE Left: HUMERUS MIDSHAFT DePuy Synthes - Trauma 212.120 / / Scr Cj Sftp Ss 3.5x32 F-Thrd - [id number] Implanted:Qty : 1 on 07/16/2019 by Edelmira Rodriguez MD at [facility] DEVICE Left: HUMERUS MIDSHAFT DePuy Synthes - Trauma 204.832 / / [id number] Plt Prox Hum 3.5x90 6h/3h - [id number] Implanted:Qty : 1 on 07/16/2019 by Edelmira Rodriguez MD at [facility] DEVICE Left: SHOULDER DePuy Synthes - Trauma 241.901 / / [id number] Scr Cj Sftp Ss 3.5x26 F-Thrd - [id number] Implanted:Qty : 1 on 07/16/2019 by Edelmira Rodriguez MD at [facility] DEVICE Left: HUMERUS MIDSHAFT DePuy Synthes - Trauma 204.826 / / Description:3.5mm 26mm Scr Cj Sftp Ss 3.5x28 F-Thrd - [id number] Implanted:Qty : 1 on 07/16/2019 by Edelmira Rodriguez MD at [facility] DEVICE Left: HUMERUS MIDSHAFT DePuy Synthes - Trauma 204.828 / / Scr Star Lk Sftp 3.5x34 - [id number] Implanted:Qty : 1 on 07/16/2019 by Edelmira Rodriguez MD at [facility] DEVICE Left: HUMERUS MIDSHAFT DePuy Synthes - Trauma 212.113 / / Scr Star Lk Sftp 3.5x36 - [id number] Implanted:Qty : 2 on 07/16/2019 by Edelmira Rodriguez MD at [facility] DEVICE Left: HUMERUS MIDSHAFT DePuy Synthes - Trauma 212.115 / / Scr Star Lk Sftp 3.5x40 - [id number] Implanted:Qty : 2 on 07/16/2019 by Edelmira Rodriguez MD at [facility] DEVICE Left: HUMERUS MIDSHAFT DePuy Synthes - Trauma 212.117 / / Scr Star Lk Sftp 3.5x45 - [id number] Implanted:Qty : 1 on 07/16/2019 by Edelmira Rodriguez MD at [facility] DEVICE Left: HUMERUS MIDSHAFT DePuy Synthes - Trauma 212.119 / / Scr Star Lk Sftp 3.5x46 - [id number] Implanted:Qty : 1 on 07/16/2019 by Edelmira Rodriguez MD at [facility] DEVICE Left: HUMERUS MIDSHAFT DePuy Synthes - Trauma 212.136 / / Procedures Procedure Name Priority Date/Time Associated Diagnosis Comments BASIC METABOLIC PANEL Routine 07/17/2019 7:49 AM STRATEGIC DEBRIEFING SPECIALIST HGB A1C Routine 07/17/2019 7:49 AM STRATEGIC DEBRIEFING SPECIALIST from Last 3 Months or Most Recently Relevant to Health Maintenance Results * (ABNORMAL) Basic Metabolic Panel (IN AM) (07/17/2019 7:49 AM STRATEGIC DEBRIEFING SPECIALIST) Sodium 131(L) 136 - 145 mmol/L 07/17/2019 8:42 AM STRATEGIC DEBRIEFING SPECIALIST [facility] Potassium 3.3(L) 3.5 - 5.1 mmol/L 07/17/2019 8:42 AM STRATEGIC DEBRIEFING SPECIALIST [facility] Chloride 98 98 - 109 mmol/L 07/17/2019 8:42 AM STRATEGIC DEBRIEFING SPECIALIST [facility] CO2 25 20 - 29 mmol/L 07/17/2019 8:42 AM STRATEGIC DEBRIEFING SPECIALIST [facility] Anion Gap 8 7 - 16 mmol/L 07/17/2019 8:42 AM STRATEGIC DEBRIEFING SPECIALIST [facility] Calcium 8.4 8.4 - 10.4 mg/dL 07/17/2019 8:42 AM STRATEGIC DEBRIEFING SPECIALIST [facility] BUN 16 7 - 26 mg/dL 07/17/2019 8:42 AM STRATEGIC DEBRIEFING SPECIALIST [facility] Creatinine 0.65 0.55 - 1.02 mg/dL 07/17/2019 8:42 AM STRATEGIC DEBRIEFING SPECIALIST [facility] GFR, Estimated >60 >60 mL/min/1.7 3m2 07/17/2019 8:42 AM STRATEGIC DEBRIEFING SPECIALIST [facility] GFR, Est If >60 >60 mL/min/1.7 3m2 07/17/2019 8:42 AM STRATEGIC DEBRIEFING SPECIALIST [facility] Glucose 187(H) 70 - 100 mg/dL 07/17/2019 8:42 AM STRATEGIC DEBRIEFING SPECIALIST [facility] Comment:The given reference range is for the fasting state. Non-fasting reference range for glucose is 70 - 180 mg/dL. Blood Venipuncture / Unknown 07/17/2019 7:49 AM STRATEGIC DEBRIEFING SPECIALIST 07/17/2019 7:56 AM STRATEGIC DEBRIEFING SPECIALIST Larisa Gaines MD LAB_1 Performing Organization Address [facility] de Phone Number [facility] [address] * (ABNORMAL) Hemoglobin A1C Glycosylated (IN AM) (07/17/2019 7:49 AM STRATEGIC DEBRIEFING SPECIALIST) Hemoglobin A1C 6.7(H) <=5.6 % 07/17/2019 1:39 PM STRATEGIC DEBRIEFING SPECIALIST [facility] Blood Venipuncture / Unknown 07/17/2019 7:49 AM STRATEGIC DEBRIEFING SPECIALIST 07/17/2019 7:56 AM STRATEGIC DEBRIEFING SPECIALIST Narrative [facility] - 07/17/2019 1:39 PM STRATEGIC DEBRIEFING SPECIALIST For patients not previously diagnosed with diabetes: 5.7-6.4%: Increased risk for diabetes 6.5% and greater: Diagnostic for diabetes For patients diagnosed with diabetes: <8.0%: Goal of therapy for ages 18-75 Clinicians may recommend a higher or lower goal for specific individuals. Larisa Gaines MD LAB_1 Performing Organization Address [facility] Phone Number [facility] [address] from Last 3 Months or Most Recently Relevant to Health Maintenance Advance Directives * Full Code (Latest Code Status on File) Date Activated Date Inactivated Comments 07/16/2019 4:18 PM 07/17/2019 5:47 PM Care Teams Marketing Research Analyst Relationship Specialty Start Date End Date Lina Meléndez MD [address] [address] PCP - General Internal Medicine 12/20/18
--- OUTSIDE RECORDS SUMMARY | 2024-04-15 09:13 | XMS_ITS | Encounter Summary ---
Author Organization [facility] Address [address] [place] [address] Care Team Providers Care C Web Developer Name Role Phone Unavailable Primary Care Provider Unavailabl e Reason for Visit * Appointment Request (Routine) - Closed Specialty Diagnoses / Procedures Referred By Caroline t Referred To Contact Nephrology and Hypertension Referral ID Status Reason Start Date Expiration Date Visits Re quested Visits Authorized [id number] Closed 01/05/2024 01/04/2025 1 1 Encounter Details Date Type Department Care Team (Latest Contact Info) Description 02/06/2024 3:30 PM CDT External Outreach Division of Nephrology and Hypertension in [place], [place] [address] [place] [address] Joshua Lopez Jr., D.O. [address] [place] [address] Hypertensive Chronic Kidney Disease With Stage 1 [...] How often do you attend chur or anabaptism services? More than 4 times per year [...] medical care, and heating? Somewhat hard 02/12/2022 [facility] [place] of Occupat ional Health - Occupational Stress [...] place to sleep or slept in a care home (including now)? No 02/12/2022 Nutrition Answer [...] on file Legal Sex Female 12:47 PM PALM AND BACK FORGER Gender Identity Not on file Sexual Orientation [...] Notes * Joshua Lopez Jr., D.Dillon. - 02/06/2024 3:30 PM CDT Referring Provider DR Rome SUBJECTIVE REASON FOR VISIT [facility] Follow-up regards diabetes [...] Rfl: flash glucose scanning reader (FREESTYLE KYLIE) [facility] [place], , Disp: , [...]
--- OUTSIDE RECORDS SUMMARY | 2024-04-15 09:13 | XMS_ITS | Referral Summary ---
Author Organization [facility] Address [address] [place] [address] Care Team Providers Care Apparel Trimmings Sales Representative Name Role Phone Lina Meléndez MD Primary Care Provider [place] I Unavailable Allergies Active Allergy Reactions Criticality [...] Active fluticasone (FLONASE) 50 MCG/ACT nasal spray Jackson 2 sprays in nostril daily Active valACYclovir [...] Created by Conversion Osteoarthritis Overview: Created by [employer] Annotation: Dec 29 2006 3:46PM - Jojo Faustin: DJD Replacement Utility updated for latest IMO load Lower Back Pain Overview: Created by [employer] Annotation: Dec 29 2006 3:46PM - Jojo [...] Comments Blood Pressure 153/88 08/04/2023 11:00 AM NET DEVELOPER SOFTWARE ENGINEER C Pulse 79 08/04/2023 11:00 AM NET DEVELOPER SOFTWARE ENGINEER C Temperature 36.1 ??C (97 ??F) 08/04/2023 11:00 AM NET DEVELOPER SOFTWARE ENGINEER C Respiratory Rate 18 08/04/2023 11:00 AM NET DEVELOPER SOFTWARE ENGINEER C Oxygen Saturation 100% 08/04/2023 11:00 AM NET DEVELOPER SOFTWARE ENGINEER C Inhaled Oxygen Concentration - - Weight 70.9 kg (156 lb 4.8 oz) 08/04/2023 6:02 A M NET DEVELOPER SOFTWARE ENGINEER C Height 165.1 cm (5' 5) 07/26/2023 1:00 PM NET DEVELOPER SOFTWARE ENGINEER C Body Mass Index 26.01 07/26/2023 1:00 PM NET DEVELOPER SOFTWARE ENGINEER C Plan of Treatment Not on file Procedures Procedure Name Priority Date/Time Associated Diagnosis Comments COLONOSCOPY Routine 08/04/2023 7:25 AM NET DEVELOPER SOFTWARE ENGINEER C LIPID PROFILE Routine 12/18/2019 HEMOGLOBIN A1C Routine 12/18/2019 from Last 3 Months or Most Recently Relevant to Health Maintenance Results * COLONOSCOPY (08/04/2023 7:25 AM NET DEVELOPER SOFTWARE ENGINEER C) [facility] COLONOSCOPY [facility] Patient Name: Maryam Cortez ?Procedure Date: [...] ?Olympus, Pediatric Colonoscope, Model # [id number]-H190DL, ?Censitrac #[id number] was introduced through the ?anus with the [...] criteria for high risk CPT copyright 2021 [employer]. All rights reserved. The codes documented in this report are preliminary and upon supervisor hairspring fabrication review may be revised to meet current compliance requirements. EVER ZEE MD 08/04/2023 8:47:30 AM I was physically present for the entire viewing portion of the exam. EVER ZEE MD Number of Addenda: 0 Note Initiated On: 08/04/2023 7:25 AM MRN: ?[id number] Procedure Date: ? 08/04/2023 7:25:15 AM Total Procedure Duration: 0 hours 3 minutes 40 seconds Estimated Blood Loss: ? Scope In: 7:47:47 AM Scope Out: 7:51:27 AM RADIOLOGY RESULTS 08/04/2023 7:25 AM NET DEVELOPER SOFTWARE ENGINEER C Ever Zee MD PROCEDURES RADIOLOGY RESULTS * Lipid Profile (12/18/2019) Cholesterol 154 90 - 200 mg/dL [facility] Triglycerides 53 40 - 197 mg/dL [facility] HDL Cholesterol 106 >=50 mg/dL [facility] LDL Cholesterol Calculated 37 <100 mg/dL [facility] Blood specimen (specimen) 12/18/2019 Narrative [facility] - 12/18/2019 LAB RESULTS [facility] Patient Reported LAB - BLOOD ORDERABL ES [facility] [address] [place], [place] [id number] [place] [address] * (ABNORMAL) Hemoglobin A1c (12/18/2019) Hemoglobin A1C 7.3(A) <=6.9 % [facility] Blood specimen (specimen) 12/18/2019 [place] [facility] - 12/18/2019 LAB RESULTS [facility] Provider Outside LAB - BLOOD ORDERABL ES Performing Organization Address [facility]/ZIP Co de Phone Number [phone] [place] [address] from Last 3 Months or Most Recently Relevant to Health Maintenance Care Teams Apparel Trimmings Sales Representative Relationship Specialty Start Date End Date Lina Meléndez MD [facility] [address] [place], [place] [id number] PCP - General Internal Medicine 12/26/14 Rhoda Sarabia I [address] [place] [id number] Supervisor Drawing Dietitian, Registered 02/20/20
--- OUTSIDE RECORDS SUMMARY | 2024-04-15 09:13 | XMS_ITS | Encounter Summary ---
Author Organization [facility] Address [address] [place] [address] Care Team Providers Care System Sales Consultant Name Role Phone Unavailable Primary Care Provider Unavailabl e Encounter Details Date Type Department Care Team (Late st Contact Info) Description 03/19/2024 Documentation Division of Nephrology and Hypertension in [place], [place] [address] [place] [phone] Joshua Lopez Jr., D.O. [address] [place] [address] Social History Tobacco Use Types Packs/Day Years [...] How often do you attend chur or pentecostalism services? More than 4 times per year 02/12/2022 Do you belong to any clubs o r organizations such as adventism groups, unions, fraternal or athletic groups, or [...] care, and heating? Somewhat hard 02/12/2022 [facility] of Occupat ional Health - Occupational Stress [...] on file Legal Sex Female 12:47 PM STORAGE ENGINEER Gender Identity Not on file Sexual Orientation [...]
--- OUTSIDE RECORDS SUMMARY | 2024-04-15 09:13 | XMS_ITS | Clinical Summary ---
Author Organization [facility] Address [address] [place] [address] Care Team Providers Care Coupon And Bond Collection Clerk Name Role Phone Unavailable Primary Care Provider Unavailabl e Source Comments Patient records contain information from all sites at [facility]. For routine questions regarding patient records, call [phone] during business hours, M-F 8:00 AM - 5:00 PM Central Time. Record requests for emergency care only can be directed to [phone] at any time.[facility] Allergies Active Allergy Reactions Criticality Noted [...] Tree Nut Hives (Reselect Reaction) 12/18/2015 Medications * This document contains information received from the source organization and may not represent a complete record from that organization. atorvastatin (LIPITOR) 10 mg tablet Take 10 mg by mouth at bedtime. 6 Active B complex-vitamin (SUPER B-50) capsule Take 1 capsule by mouth daily. Active cholecalciferol (VITAMIN D3) 1,000 Unit tablet Take 3,000 Units by mouth daily. Active clopidogrel (PLAVIX) 75 mg tablet Take 75 mg by mouth daily. 6 Active diazePAM (VALIUM) 2 mg tablet Take 2 mg by mouth as needed. Very limited usage 7 Active fluticasone (FLONASE) 50 mcg/actuation nasal spray Administer 2 sprays into affected nostril(s) at bedtime. Active BASAGLAR KWIKPEN U-100 INSULIN 100 unit/mL (3 mL) injection Inject as directed daily. 8 Active magnesium oxide 400 mg capsule Take 4 tablets by mouth daily. 6 Active metFORMIN (GLUCOPHAGE) 500 mg tablet Take 500 mg by mouth 2 (two) times a day. 9 Active vit C/E/Zn/coppr/lut ein/zeaxan (PRESERVISION AREDS-2 ORAL) Take 1 capsule by mouth daily. 9 Active pantoprazole (PROTONIX) 40 mg EC tablet Take 40 mg by mouth daily. Active alendronate (FOSAMAX) 70 mg tablet 70 mg once a week. Every 7 days 2 Active anastrozole (ARIMIDEX) 1 mg tablet Take 1 mg by mouth daily. 2 Active Qvar RediHaler 80 mcg/actuation inhaler Inhale 2 puffs 2 (two) times a day. 2 Active betamethasone dipropionate 0.05 % cream Apply 1 application topically 2 (two) times a day. 0 Active albuterol 90 mcg/actuation inhaler Inhale 2-4 puffs as needed. 2 Active clindamycin (CLEOCIN T) 1 % external solution Apply 1 application topically 2 (two) times a day. 2 Active clobetasoL (TEMOVATE) 0.05 % ointment Apply 1 application topically 5 (five) times a week. 2 Active clopidogreL (PLAVIX) 75 mg tablet Take 75 mg by mouth daily. 2 Active diazePAM (VALIUM) 2 mg tablet Take 2 mg by mouth daily. As needed 2 Active flash glucose scanning reader (FREESTYLE KYLIE) misc 2 Active flash glucose sensor (FREESTYLE KYLIE) kit 2 Active fluticasone propionate (FLONASE) 50 mcg/actuation nasal spray Administer 2 sprays into nostril(s) 2 (two) times a day. 2 Active gabapentin (NEURONTIN) 300 mg capsule Take 300 mg by mouth at bedtime. 2 Active insulin aspart U-100 (NovoLOG) 100 unit/mL injection .tidac 2 Active omeprazole (PriLOSEC) [address] capsule Take 20 mg by mouth daily. 2 Active magnesium oxide (MAG-OX) 400 mg (241.3 mg magnesium) tablet Take 600 mg by mouth daily. 400 in the AM, 200 in the PM 2 Active ondansetron (ZOFRAN) 4 mg tablet Take 4 mg by mouth every 8 (eight) hours as needed. 0 Active timolol (TIMOPTIC) 0.5 % ophthalmic solution Administer 1 drop into both eyes daily. 2 Active zolpidem (AMBIEN) 5 mg tablet Take 5 mg by mouth at bedtime as needed. 2 Active valACYclovir (VALTREX) 500 mg tablet Take 500 mg by mouth 2 (two) times a day. 2 Active acetaminophen (TYLENOL) 500 mg tablet Take 1,000 mg by mouth. 0 Active biotin 1 mg tablet Take 5,000 mg by mouth daily. Active coenzyme Q10 (CO Q-10) 10 mg capsule Take 10 mg by mouth daily. Active calcium carbonate-vitami n D3 625 mg (250 mg calcium)-3.125 mcg (125 Unit) per tablet Take 1 tablet by mouth daily with breakfast. Active calcium carbonate-vitami n D3 (Calcium 600 with Vitamin D3) 600 mg-10 mcg (400 unit) tablet,chewable Chew 600 mg daily. Active folic acid 1 mg tablet Take 1 tablet (1 mg total) by mouth daily. 90 tablet 3 3 Active carvediloL (COREG) 6.25 mg tablet Take 1 tablet (6.25 mg total) by mouth 2 (two) times a day with meals. 180 tablet 3 3 Active folic acid 1 mg tablet Take 1 tablet (1 mg total) by mouth daily. 90 tablet 3 3 06/04/20 24 Active NIFEdipine XL (Procardia XL) 30 mg 24 hr tablet Take 1 tablet (30 mg) by mouth once daily. 90 tablet 3 4 Active Active Problems Problem Noted Date Diagnosed [...] Documentation Division of Nephrology and Hypertension in [place], [place] [address] [place] [address] Joshua Lopez Jr., D.O. 02/06/2024 3:30 PM CDT External Outreach Division of Nephrology and Hypertension in [place], [place] [address] [place] [address] Joshua Lopez Jr., D.O. Hypertensive Chronic Kidney Disease With Stage 1 Through Stage 4 Chronic Kidney Disease, Or Unspecified Chronic Kidney Disease (Primary Dx); Hyponatremia; Diabetes Mellitus Type 2 (HCC); Malignant Neoplasm Of Breast Upper Outer Quadrant Female Right (HCC) 01/22/2024 Refill Division of Nephrology and Hypertension in [place], [place] [address] [place] [address] Joshua Lopez Jr., D.O. Med Refill from [...] any clubs o r organizations such as gnosticism groups, unions, fraternal or [...] medical care, and heating? Somewhat hard 02/12/2022 [facility]ational [facility] Questionnaire Answer Date [...] or slept in a [facility] (including now)? 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 ?? us Provider Not In System IMG BI PROCEDURES Final R esult IIMS NA from Last 3 Months or Most Recently Relevant to Health Maintenance Insurance ARE
--- OUTSIDE RECORDS SUMMARY | 2024-04-15 09:13 | XMS_ITS | Continuity of Care Document ---
Author Organization [facility] Address [address] [place] [address] Phone Care Team Providers Care Pneumatic Drum Sander Name Role Phone Gurinder Mc MD Unavailable [...] on Encounter [facility], [address], [place], [place], [id number] , tel:[phone] [facility] [place] Encounter for other specified surgical aftercare 4 Alexandro Montoya [facility], [address] [place] [address], [place], [place], [id number] , . [phone] Referring Provider: Corona Pretty, [facility] [address], [place], [address]. tel:[phone] [facility], [address], [place], [place], [id number] , [place] [phone] [facility] Encounter for other specified surgical aftercare 3 Alexandro Montoya [facility], [address] [place] [address], [place], [place], [id number] , [place]. [phone] Referring Provider: Corona Pretty, [facility] [address], [place], [address]. tel:[phone] [facility], [address], [place], [place], [id number] , [place] [phone] [facility] [place] Spinal stenosis, lumbar region with neurogenic claudication 3 Kimberly Finney. [address] [place] [address], [place], [place], [id number] , [place]. [phone] Referring Provider: Corona Pretty, [facility] [address], [place], [address]. tel:[phone] [facility], [address], [place], [place], [id number] , [place] tel: [phone] [facility] No Information 3 Mehbod Amir. [facility], [address], [place], [id number] , [place]. tel: [phone] [facility], [address], [place], [id number] , [place] tel: [phone] [facility] No Information 3 Kimberly Finney. [address], [place], [id number] , [place]. tel: [phone] Referring Provider: Corona Pretty, [facility] [address] [facility], [place], [address]. tel:[phone] [facility], [address], [place], [id number] , [place] tel: [phone] [facility] No Information 3 Mehbod Amir. [facility], [address], [facility] [place], [id number] , [place]. tel: [phone] Referring Provider: Corona Pretty, [facility] [address] [facility], [place], [address]. tel:[phone] [facility], [address], [place], [id number] , [place] tel: [phone] [facility] No Information 3 Mehbod Amir. [facility], [address], [facility] [place], [id number] , [place]. tel: [phone] Office/Outpa tient Visit,Est, Mod [facility], [address], [facility] [place], [place], [id number] , [place] tel: [phone] [facility] Spinal stenosis, lumbar region with neurogenic claudication Sep- 3 Mehbod Amir. [facility], [address] [place] [address] [address], [facility] [place], [id number] , [place]. tel: [phone] Referring Provider: Corona Pretty, [facility] [address], [place], [address]. tel:[phone] Office/Outpa tient Visit,New, Mod [facility], [address], [place], [place], [id number] , [place] tel: [phone] [facility] Spinal stenosis, lumbar region with neurogenic claudication 2 Mehbod Amir. [facility], [address] [place] [address] [address], [place], [place], [id number] , [place]. tel: [phone] Referring Provider: Corona Pretty, [address], [place], [address]. tel:[phone] Office/Outpa tient Visit,Est, Mod [facility], [address], [place], [place], [id number] , [place] tel: [phone] [facility] Other forms of scoliosis, lumbar regionPost Op - Normal Follow-up 8 Mehbod Amir. [facility], [address] [place] [address] [address], [place], [place], [id number] , [place]. tel: [phone] Referring Provider: Corona Pretty, [address], [place], [address]. tel:[phone] Office/Outpa tient Visit,Est, Low [facility], [address], [place], [place], [id number] , [place] tel: [phone] [facility] Encounter for other specified surgical aftercareArthrode sis status 8 Mehbod Amir. [facility], [address] [place] [address] [address], [place], [place], [id number] , [place]. tel: [phone] Referring Provider: Corona Pretty, [facility] [address] [facility], [place], [address]. tel:[phone] Office/Outpa tient Visit,Est, Mod [facility], [address], [place], [place], [id number] , [place] tel: [phone] [facility] - [facility] Spinal stenosis, lumbar region NOS Mehbod Amir. [facility], [address] [place] [address], [place], [place], [id number] , [place]. tel: [phone] Referring Provider: Corona Pretty, [facility] [address] [facility], [place], [address]. tel:[phone] [facility], [address], [place], [place], [id number] , [place] tel: [phone] [facility] Encounter for follow-up examination after completed treatment for conditions other than malignant neoplasm Mehbod Amir. [facility], [address] [place] [address], [place], [place], [id number] , [place]. tel: [phone] Referring Provider: Corona Pretty [facility] [address] [facility], [place], [address]. tel:[phone] [facility], [address], [place], [place], [id number] , [place] tel: [phone] [facility] Spinal stenosis, lumbar region Kimberly Finney. [address] [place] [address] [address], [place], [place], [id number] , [place]. tel: [phone] Referring Provider: Corona Pretty [facility], [place], [address]. tel:[phone] [facility], [address], [place], [place], [id number] , [place] tel: [phone] [facility] No Information Mehbod Amir. [facility], [address] [place] [address], [place], [place], [id number] , [place]. tel: [phone] Referring Provider: Corona Pretty, [facility], [place], [address]. tel:[phone] Office/Outpa tient Visit,Est, Mod [facility], [address], [place], [place], [id number] , [place] tel: [phone] [facility] Spinal stenosis, lumbar region Apr-0 3-201 7 Mehbod Amir. [facility], [address] [place] [address], [place], [place], [id number] , [place]. tel: [phone] Referring Provider: Corona Pretty, [facility] [address], [place], [address]. tel:[phone] [facility], [address], [place], [place], [id number] , [place] tel: [phone] [facility] Spinal stenosis, lumbar region Sep- 9 6 [facility] [address] [place] [address], [place], [place], [id number] , [place]. tel: [phone] Referring Provider: Corona Pretty, [facility] [address] , [place], [address]. tel:[phone] [facility], [address], [place], [place], [id number] , [place] tel: [phone] [facility] Spinal stenosis, lumbar region Aug-0 8201 6 Mehbod Amir. [facility], [address] [place] [address], [place], [place], [id number] , [place]. tel: [phone] Referring Provider: Corona Pretty [facility], [place], [address]. tel:[phone] [facility], [address], [place], [place], [id number] , [place] tel: [phone] [facility] No Information Segrei- 4201 6 Mehbod Amir. [facility], [address] [place] [address], [place], [place], [id number] , [place]. tel: [phone] Referring Provider: Corona Pretty, [facility] [address] , [place], [address]. tel:[phone] Office/Outpa tient Visit,New, Mod [facility], [address], [place], [place], [id number] , [place] tel:[phone] [facility] OverweightSpinal stenosis, lumbar region 2-201 6 Alexandro Fairchild. [facility], [address], [place], [place], [id number] , [place]. [phone] Referring Provider: Corona Pretty, [address], [place], [address]. tel:[phone] Family History Family Member Type Diagnosis Age At Onset No Information Payers Payer name Insurance type Covered republican ID Zuhaira sharri(s) [employer] 2021 CI [id number] Social History Type Description Quantity Date Captured [...]
--- OUTSIDE RECORDS SUMMARY | 2024-04-15 09:13 | XMS_ITS | Clinical Summary ---
Author Organization [facility] Address [address] [place] [address] Care Team Providers Care Assistant Plant Manager Name Role Phone Lina Meléndez MD Primary Care Provider SharpRhoda I Unavailable Allergies Active Allergy Reactions Criticality [...] Active fluticasone (FLONASE) 50 MCG/ACT nasal spray [place] 2 sprays in nostril daily Active valACYclovir [...] Created by Conversion Osteoarthritis Overview: Created by zulily Annotation: Dec 29 2006 3:46PM - Jojo Faustin: DJD Replacement Utility updated for latest IMO load Lower Back Pain Overview: Created by zulily Annotation: Dec 29 2006 3:46PM - Jojo [...] Comments Blood Pressure 153/88 08/04/2023 11:00 AM MATERIAL LIAISON Pulse 79 08/04/2023 11:00 AM MATERIAL LIAISON Temperature 36.1 ??C (97 ??F) 08/04/2023 11:00 AM MATERIAL LIAISON Respiratory Rate 18 08/04/2023 11:00 AM MATERIAL LIAISON Oxygen Saturation 100% 08/04/2023 11:00 AM MATERIAL LIAISON Inhaled Oxygen Concentration - - Weight 70.9 kg (156 lb 4.8 oz) 08/04/2023 6:02 A M [facility]ERIAL LIAISON Height 165.1 cm (5' 5) 07/26/2023 1:00 PM [facility] LIAISON Body Mass Index 26.01 07/26/2023 1:00 PM MATERIAL LIAISON Plan of Treatment Health Maintenance Due Date [...] Diagnosis Comments COLONOSCOPY Routine 08/04/2023 7:25 AM MATERIAL LIAISON LIPID PROFILE Routine 12/18/2019 HEMOGLOBIN A1C Routine 12/18/2019 from Last 3 Months or Most Recently Relevant to Health Maintenance Results * COLONOSCOPY (08/04/2023 7:25 AM MATERIAL LIAISON) COLONOSCOPY [facility] Patient Name: Maryam Cortez ?Procedure Date: [...] ?Olympus, Pediatric Colonoscope, Model # [id number]-H190DL, ?Censitrac #[id number] was introduced through the ?anus with the [...] criteria for high risk CPT copyright 2021 [employer]. All rights reserved. The codes documented in this report are preliminary and upon awning finisher review may be revised to meet current compliance requirements. EVER ZEE MD 08/04/2023 8:47:30 AM I was physically present for the entire viewing portion of the exam. EVER ZEE MD Number of Addenda: 0 Note Initiated On: 08/04/2023 7:25 AM MRN: ?[id number] Procedure Date: ? 08/04/2023 7:25:15 AM Total Procedure Duration: 0 hours 3 minutes 40 seconds Estimated Blood Loss: ? Scope In: 7:47:47 AM Scope Out: 7:51:27 AM RADIOLOGY RESULTS 08/04/2023 7:25 AM MATERIAL LIAISON Ever Zee MD PROCEDURES RADIOLOGY RESULTS * Lipid Profile (12/18/2019) Cholesterol 154 90 - 200 mg/dL [facility] Triglycerides 53 40 - 197 mg/dL [facility] HDL Cholesterol 106 >=50 mg/dL [facility] LDL Cholesterol Calculated 37 <100 mg/dL [facility] Blood specimen (specimen) 12/18/2019 Narrative [facility] - 12/18/2019 LAB RESULTS [place] Patient Reported LAB - BLOOD ORDERABL ES Performing Organization Address City/[facility]/ZIP Co de Phone Number [facility] [address] [place], [place] [address] [phone] * (ABNORMAL) Hemoglobin A1c (12/18/2019) Hemoglobin A1C 7.3(A) <=6.9 % [facility] Blood specimen (specimen) 12/18/2019 Narrative [facility] - 12/18/2019 LAB RESULTS [place] Provider Outside LAB - BLOOD ORDERABL ES Performing Organization Address [facility]/ZIP Co de Phone Number [facility] [address] [place] [address], [facility] [phone] from Last 3 Months or Most Recently Relevant to Health Maintenance Care Teams Assistant Plant Manager Relationship Specialty Start Date End Date Lina Meléndez MD [facility] [address] [place] [address] PCP - General Internal Medicine 12/26/14 Rhoda Sarabia [address] [address] [employer] Plant Operator Dietitian, Registered 02/20/20
--- OUTSIDE RECORDS SUMMARY | 2024-04-15 09:13 | XMS_ITS ---
Author Organization [facility] Address [address] [place] [address] Care Team Providers Care Paper Maker Name Role Phone Unavailable Primary Care Provider Unavailabl e Active Problems * This document contains information received from the source organization and may not represent a complete record from that organization. Problem Noted Date Diagnosed Date Dietary Folate Deficiency Anemia 04/04/2023 Malignant Neoplasm Of Breast Upper Outer Quadrant Female Right 01/26/2022 Cancer Staging:Pathologic stage from 12/21/2021:Stage Unknown(pT1b, pNX, cM0, G2, ER+, AK+, HER2-, Oncotype DX score: 17) - Unsigned [...] Treated Prescribed Fraction Dose Prescribed Total Dose [id number] 02/18/2022 4 5 of 5 520 cGy 2,600 cGy Reference Point Last Treated On Elapsed Days Session Dose Total Dose [id number] 02/18/2022 4 520 cGy 2,600 cGy icru ref 02/16/2022 2 531 cGy 1,593 cGy
--- OUTSIDE RECORDS SUMMARY | 2024-04-15 09:13 | XMS_ITS | Referral Summary ---
Author Organization [facility] Address [address] [place] [address] Care Team Providers Care Derrick Engineer Name Role Phone Unavailable Primary Care Provider Unavailabl e Source Comments Patient records contain information from all sites at [facility]. For routine questions regarding patient records, call [phone] during business hours, M-F 8:00 AM - 5:00 PM Central Time. Record requests for emergency care only can be directed to [phone] at any time.[facility] Encounters Date Type Department Care Team Description 03/19/2024 Documentation Division of Nephrology and Hypertension in [place], [place] [address] [place] [address] Joshua Lopez Jr., D.O. 02/06/2024 3:30 PM CDT External Outreach Division of Nephrology and Hypertension in [place], [place] [address] [place] [address] Joshua Lopez Jr., D.O. Hypertensive Chronic Kidney Disease With Stage 1 Through Stage 4 Chronic Kidney Disease, Or Unspecified Chronic Kidney Disease (Primary Dx); Hyponatremia; Diabetes Mellitus Type 2 (HCC); Malignant Neoplasm Of Breast Upper Outer Quadrant Female Right (HCC) 01/22/2024 Refill Division of Nephrology and Hypertension in [place], [place] [address] [place] [address] Joshua Lopez Jr., D.O. Med Refill from [...] How often do you attend chur or confucianist services? More than 4 times per year 02/12/2022 Do you belong to any clubs o r organizations such as jain groups, unions, fraternal or [...] medical care, and heating? 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
[2024-04-15] MEDS: SODIUM CHLORIDE 0.9 % (FLUSH) 10 ML SYRINGE IVF (09:40)
[2024-04-15 09:42] VITALS: BP 161/80; PULSE 68; RESP 16; TEMP 36.6; O2SAT 100; BMI 25.0
--- NOTE | 2024-04-15 10:15 | CRLHL7_ITS ---
For Patients: As a result of the Cures Act, medical imaging exams and procedure reports are released immediately into your electronic medical record. You may view this report before your referring provider. If you have questions, please contact your health care provider. Indication: Intra op left foot Technique: Three fluoroscopic images of the left foot. Fluoroscopic time 28.6 seconds. IMPRESSION: Fluoroscopic guidance for hammertoe correction involving the 2nd and 3rd toes. Also 1st MTP fusion. Plate and screw fixation about the 3rd metatarsal. Dictated by David Olson MD @ 04/16/2024 1:12:40 PM (Electronically Signed)
[2024-04-15] MEDS: LACTATED RINGERS 1000 ML 1,000 ML 100 ML IV (11:00)
--- NOTE | 2024-04-15 11:10 | W.ANESCHARGE ---
Anesthesia Charges Start Date/Time Anesthesia Start Date: 04/15/24 Anesthesia Start Time: 11:26 Stop Date/Time Anesthesia Stop Date: 04/15/24 Anesthesia Stop Time: 14:29 Summary Extremes of Age - Over 70 or under 1: MDA
[2024-04-15] MEDS: CEFAZOLIN 2 GM INJ IVP (11:41)
[2024-04-15] MEDS: BUPIVACAINE 0.25% 30 ML INJECTION (11:59)
[2024-04-15 14:25] VITALS: BP 134/84; PULSE 86; RESP 16; TEMP 36.4; O2SAT 97
--- NOTE | 2024-04-15 14:27 | W.PODPROC_ITS ---
Date of Procedure: 04/15/24 Surgeon: Rex Fink DPM Pre-op Diagnosis: Hallux abductovalgus with bunion left Hammertoe deformity 2nd digit left Hammertoe deformity 3rd digit left 3rd metatarsal fracture left Post-op Diagnosis: Hallux abductovalgus with bunion left Hammertoe deformity 2nd digit left Hammertoe deformity 3rd digit left 3rd metatarsal fracture left Type of Procedure: 1st MPJ fusion left Hammertoe repair 2nd digit left Hammertoe repair 3rd digit left ORIF 3rd metatarsal fracture left Indications: Patient has had ongoing foot issues. She had surgery canceled 2 weeks ago for what was thought to be infection maternal to be a stress fracture that then proceeded to complete fracture. She is ready to proceed with surgery today. I reviewed the procedure, recovery, expectation potential complications. These include but not limited to: Poor wound healing, infection, under correction, over correction, malunion, delayed union, nonunion, hardware irritation, nerve injury, potential need for future surgery, deep venous thrombosis, pulmonary embolism and possible . She understands risks written consent was obtained. Site marked. Procedure Description: Patient brought the operating room placed supine position on operating table. IV sedation was initiated and 30 mL 0.25% Marcaine plain was injected into the left foot. She was then prepped and draped in sterile fashion. Standard time- out protocol followed. Left foot was exsanguinated the tourniquet inflated. Linear incision was made over the 1st metatarsophalangeal joint. The incision was carried down through skin subcutaneous tissues. A linear capsular incision was made. Bony spurring was removed with a sagittal saw and a rongeur. A guide pin was placed in the 1st metatarsal head and an 18 mm Reamer was used to remove the cartilage and subchondral bone. Guide pin was removed and placed in the base of the proximal phalanx. Corresponding 18 mm Reamer was used to remove the cartilage and subchondral bone. Wound was thoroughly irrigated normal sterile saline. Fusion surfaces were fenestrated. Weightbearing was simulated and the hallux was placed in optimal position and temporarily fixated with a K-wire. C- arm confirmed position. A 3.0 partially-threaded headless screw was then placed from distal medial to proximal lateral across the fusion site. Excellent purchase obtained. A dorsal 6 hole plate was then applied with 3.0 mm locking screws x3 distal and times to proximal. A 3.0 mm nonlocking screw was placed proximal. All provisional fixation removed. Wound irrigated with normal sterile saline. Fusion site was remodeled with a rotary bur. Capsular tissue was repaired with 3-0 Vicryl. Subcutaneous tissues were reapproximated 4-0 Monocryl and skin closed with 4-0 Prolene. Linear incision was made over the PIPJ and DIPJ angling slightly medial distally of the 2nd digit. Incision was carried down through skin subcutaneous tissues. Transverse incision made through the extensor tendon at the DIPJ where significant angling was noted on the middle phalanx. Oscillating saw was used to resect the distal aspect of the middle phalanx and the proximal base of the distal phalanx. Transverse incision made through the PIPJ. Extensor tendon and the medial and lateral collaterals released. Oscillating saw used to resect the head of the proximal phalanx and the base of the middle phalanx. A guide pin was placed from the distal phalanx all the way into the proximal phalanx. Alignment checked with C-arm. A 2 point 4 mm cannulated screw then inserted using standard technique. Excellent compression applied across both fusion si christoph. Wound was irrigated normal sterile saline. Extensor tendons repaired with 4-0 Vicryl. Skin closed with 4-0 Monocryl. Linear incision made over the PIPJ 3rd toe. Incision carried down through skin subcutaneous tissues. Transverse incision made through the extensor tendon. Medial and lateral collateral ligaments released. The head of the proximal phalanx resected with an oscillating saw and the base of the middle phalanx resected. A retro fuse screw was then placed using standard technique. After irrigating with normal sterile saline extensor tendon was repaired with 4-0 Vicryl and skin closed with 4-0 Prolene. Linear incision made over the 3rd metatarsal shaft. Incision carried down through skin subcutaneous tissues. Minimal healing noted to the fracture but some thickened periosteum mediolateral. A dorsal 6 hole plate was applied and fixated with two 2.0 mm nonlocking screws distal and two 2.0 mm nonlocking screws proximal. C-arm confirmed excellent position. Fracture was not anatomic but was well aligned in all planes with slight transverse plane deformity this was found to be acceptable. Wound was irrigated normal sterile saline. Through this incision the extensor tendon to the 2nd toe was also transected to improve overall position. Subcutaneous tissues reapproximated 4-0 Monocryl and skin closed with 4-0 Prolene. Tourniquet was released prior to closure of all incisions. Sterile dressing was then applied. She was placed in a well-padded cam boot. She was transported from OR to PACU vital signs stable and vascular status intact to the left foot. She was discharged per same-day surgery protocol. She is given oxycodone for pain. She is weight-bearing as tolerated in the Cam boot with walker. She will follow-up in 2 days. She will resume Plavix tomorrow. Complications: None apparent Anesthesia: MAC and local Hemostasis: ankle Estimated blood loss (mL): 20 Implants: Arthrex 6 hole 1st MPJ fusion plate, 3.0 locking screws x5, 3.0 nonlocking screw x1, 3.0 partially-threaded headless screw x1, 2.4 mm partially-threaded cancellous screw x1, retro fuse screw x1, 6 hole mini frag plate x1, 2.0 mm nonlocking screw x4 Specimens: none sent Disposition: same day
--- NOTE | 2024-04-15 14:28 | W.ANESCHARGE ---
Anesthesia Charges Start Date/Time Anesthesia Start Date: 04/15/24 Anesthesia Start Time: 11:26 Stop Date/Time Anesthesia Stop Date: 04/15/24 Anesthesia Stop Time: 14:29 Summary Extremes of Age - Over 70 or under 1: [facility]
[2024-04-15 14:30] VITALS: BP 140/96; PULSE 88; RESP 16; O2SAT 99
[2024-04-15 15:00] VITALS: BP 131/102; PULSE 85; RESP 16; O2SAT 99
[2024-04-15] MEDS: OxyCODONE/APAP 5-325 TABLET PO (15:10)
--- NOTE | 2024-04-19 19:13 | P.PODCN_ITS ---
HPI - Podiatry Data of Consult Time Seen by Provider: 19:00 Date Seen: 04/19/24 [facility]: [facility] Patient Consult date: 04/19/24 Requesting physician: Rex Fink DPM Primary care provider: Lina Meléndez MD Consult Narrative Reason for consult: Postop infection left foot Narrative: Maryam Cortez is a 78 year old female type 2 diabetes and had foot surgery on Monday04/15/2024. She was seen in clinic and started on Keflex for suspected early infection. She states that she has had more swelling and more redness and presented to the emergency department this evening. Because of the worsening infection and failure of outpatient oral antibiotics she was admitted to the hospital for IV antibiotics and closer monitoring. She denies any fever chills nausea or vomiting. She has not had any substantial increase in pain. She has not had a noticeable new bleeding or other issues other than swelling and redness above the dressing. cc:: CC: Rex Fink DPM Review of Systems Status of ROS: Reports: 10 or more systems reviewed and unremarkable except as noted in History and below [facility] Medical History (Updated 04/19/24 @ 17:34 by Reg Bower MD) Health care directive on file (09/24/20) ?Z78.9 - Other specified health status (ICD-10) Adenomatous colon polyp ?D12.6 - Benign neoplasm of colon, unspecified (ICD-10) Gluteal pain ?M79.18 - Myalgia, other site (ICD-10) Lymphedema of breast ?I89.0 - Lymphedema, not elsewhere classified (ICD-10) Microalbuminuria due to type 2 diabetes mellitus ?E11.29 - Type 2 diabetes mellitus with other diabetic kidney complication (ICD-10) ?R80.9 - Proteinuria, unspecified (ICD-10) Type 2 diabetes mellitus (07/08/09) ?E11.9 - Type 2 diabetes mellitus without complications (ICD-10) History of ischemic stroke ?Z86.73 - Personal history of transient ischemic attack (TIA), and cerebral infarction without residual deficits (ICD-10) Anemia of chronic disease ?D63.8 - Anemia in other chronic diseases classified elsewhere (ICD-10) History of upper gastrointestinal bleeding ?Z87.19 - Personal history of other diseases of the digestive system (ICD-10) Breast cancer, right breast ?C50.911 - Malignant neoplasm of unspecified site of right female breast (ICD -10) History of hemorrhoids ?Z87.19 - Personal history of other diseases of the digestive system (ICD-10) History of breast cancer ?Z85.3 - Personal history of malignant neoplasm of breast (ICD-10) Rosacea (07/08/09) ?L71.9 - Rosacea, unspecified (ICD-10) Psoriasis (12/23/11) ?L40.9 - Psoriasis, unspecified (ICD-10) Pelvic floor dysfunction in female (2018) ?M62.89 - Other specified disorders of muscle (ICD-10) Obstructive sleep apnea syndrome (2018) ?G47.33 - Obstructive sleep apnea (adult) (pediatric) (ICD-10) Irritable bowel syndrome ?K58.9 - Irritable bowel syndrome without diarrhea (ICD-10) Hypomagnesemia ?E83.42 - Hypomagnesemia (ICD-10) Essential hypertension ?I10 - Essential (primary) hypertension (ICD-10) GERD (gastroesophageal reflux disease) ?K21.9 - Gastro-esophageal reflux disease without esophagitis (ICD-10) Chronic low back pain ?M54.50 - Low back pain, unspecified (ICD-10) ?G89.29 - Other chronic pain (ICD-10) Chronic insomnia ?F51.04 - Psychophysiologic insomnia (ICD-10) Chronic hyponatremia ?E87.1 - Hypo-osmolality and hyponatremia (ICD-10) Osteoporosis (~09/2021) ?M81.0 - Age-related osteoporosis without current pathological fracture (ICD- 10) Asthma (07/08/09) ?J45.909 - Unspecified asthma, uncomplicated (ICD-10) Hyperplastic polyp of intestine ?K63.5 - Polyp of colon (ICD-10) History of depression (2001) ?Z86.59 - Personal history of other mental and behavioral disorders (ICD-10) Surgical History History of lumbar laminectomy for spinal cord decompression ?Z98.890 - Other specified postprocedural states (ICD-10) S/P breast lumpectomy (11/2021) ?Z98.890 - Other specified postprocedural states (ICD-10) History of hemorrhoidectomy ?Z98.890 - Other specified postprocedural states (ICD-10) History of basal cell carcinoma excision ?Z98.890 - Other specified postprocedural states (ICD-10) ?Z85.828 - Personal history of other malignant neoplasm of skin (ICD-10) History of foot surgery ?Z98.890 - Other specified postprocedural states (ICD-10) Hx of decompressive lumbar laminectomy ?Z98.890 - Other specified postprocedural states (ICD-10) History of cataract surgery ?Z98.49 - Cataract extraction status, unspecified eye (ICD-10) History of carpal tunnel release ?Z98.890 - Other specified postprocedural states (ICD-10) 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) ?Z96.659 - Presence of unspecified artificial knee joint (ICD-10) History of open reduction and internal fixation (ORIF) procedure (07/16/19) ?Z98.890 - Other specified postprocedural states (ICD-10) History of hysterectomy (07/08/09) ?Z90.710 - Acquired absence of both cervix and uterus (ICD-10) History of breast biopsy (07/08/09) ?Z98.890 - Other specified postprocedural states (ICD-10) History of blepharoplasty (07/08/09) ?Z98.890 - Other specified postprocedural states (ICD-10) History of bladder surgery (02/08/10) ?Z98.890 - Other specified postprocedural states (ICD-10) Family History Diabetes Mother Coronary artery disease Mother Stroke Mother Social History Narrative: 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 History of tobacco use She does not use recreational drugs. She really drinks alcohol. She has 1 biologic child, and 4 adopted children. What is your current living situation?: I presently have a place to live Problems where you live: no known problems Problems where you live details: none In the past 12 months, utilities in danger of being shut off: no In past 12 months, lack of transportation kept you from medical appts, meetings, work, or getting things needed for daily living: no In the past 12 mos, have been you worried that your food would run out before you had money to buy more?: never true In the past 12 mos, the food you bought just didn't last and you didn't have money to buy more?: never true Highest level of school completed/degree received: Master's degree Smoking Status: Never smoker Do you use any of these nicotine containing products: None Second hand tobacco smoke exposure: No How often do you have a drink containing alcohol: never How often do you have six or more drinks on one occasion: Never AUDIT-C Alcohol total score: 0 Non-prescribed substance use: denies use Caffeine: No How often does anyone, including family, friends and others, physically hurt you : never How often does anyone, including family, friends and others, insult or talk down to you: never How often does anyone, including family, friends and others, threaten you with harm: never How often does anyone, including family, friends and others, scream or curse at you: never Little interest or pleasure in doing things: not at all Feeling down, depressed, or hopeless: not at all Are you using contraception or practicing any form of control: No service: No Exam Narrative: Exam Narrative: General: No distress Vascular: Palpable pedal pulses. Capillary fill time less than 3 seconds all digits with the exception of the 3rd digit which is less than 4 seconds. Neuro: Sensate to light touch throughout. Derm: Left foot: Erythema to the 2nd 3rd toes and the dorsal midfoot. There is some blotchy erythema at the ankle and just proximal to the ankle. There is improvement in the erythema with elevation but not complete resolution. I do not appreciate any fluctuance or induration. Incisions are healing well without drainage or bleeding. There is no noticeable purulence in any area. Musculoskeletal: Fusion of the 1st MPJ. Second 3rd toes in rectus position. Muscle strength 5/5 all quadrants. Ultrasound: Negative for DVT Labs: White blood cell count 6.76, neutrophils 84.6, CRP 8.4, D-dimer 2.46 Assessment: Left diabetic postop foot infection Plan: Continue with IV antibiotics broad-spectrum. Sterile dressing applied. The does not appear to be any drainable abscess or purulence. I do not feel surgical interventions necessary. Recommend treat with antibiotics and monitor. We will continue to follow tomorrow. Nail Debridement Qualifies If: Qualifiers If:: A patient qualifies for nail debridement if they have: 1 class A finding (Q7) 2 class B findings (Q8) OR 1 class B & 2 class C findings in addition to a primary condition (Q9)
--- NOTE | 2024-04-20 15:40 | W.PM.PODPN ---
Podiatry-PN: Subj Subjective Date Seen: 04/20/24 Interval history: Patient seen bedside for follow-up of left foot postop infection. She is feeling better with no significant pain. Her primary complaint is discomfort in the 3rd toe. Denies any fever chills nausea vomiting Exam Narrative: Exam Narrative: General: No distress Vascular: Palpable pedal pulses. Capillary fill time less than 3 seconds all digits with the exception of the 3rd digit which is less than 4 seconds. Neuro: Sensate to light touch throughout. Derm: Left foot: Erythema to the 2nd 3rd toes and the dorsal midfoot slightly improved from yesterday. There is some blotchy erythema at the ankle and just proximal to the ankle. There is improvement in the erythema with elevation but not complete resolution. I do not appreciate any fluctuance or induration. There is actually pitting edema to the area and not fluctuance. Incisions are healing well without drainage or bleeding. There is no noticeable purulence in any area. Musculoskeletal: Fusion of the 1st MPJ. Second 3rd toes in rectus position. Muscle strength 5/5 all quadrants. Ultrasound: Negative for DVT Labs: White blood cell count 6.76, neutrophils 79.6, CRP 6.9, X-ray: Hardware in place without failure. No gas within the tissues. No radiographic evidence of infection. Normal postoperative appearance. Assessment: Left diabetic postop foot infection Plan: Continue with IV antibiotics broad-spectrum. Sterile dressing applied. The does not appear to be any drainable abscess or purulence. I do not feel surgical interventions necessary. Recommend treat with antibiotics and monitor. Plan for discharge home tomorrow with antibiotics per Dr. Gonzalez. We have discussed doxycycline as most likely option. I have coordinated follow up next week with one of my partners and my office will coordinate a follow-up early next week.
== END 2024-04-15 15:40 | disposition home or self-care (01) ==
PROVIDERS: PCP Internal Medicine; Visit Provider Podiatrist
PROC: (CPT 28740; principal; 2024-04-15 10:15)
PROC: (CPT 28285; 2024-04-15 10:15)
DX: M20.12 Hallux valgus (acquired), left foot (principal); M20.42 Other hammer toe(s) (acquired), left foot; M21.612 Bunion of left foot; S92.332A Displaced fracture of third metatarsal bone, left foot, initial encounter for closed fracture; E11.29 Type 2 diabetes mellitus with other diabetic kidney complication; R80.9 Proteinuria, unspecified; I89.0 Lymphedema, not elsewhere classified; G47.33 Obstructive sleep apnea (adult) (pediatric)
CPT/HCPCS: 28750; 28285 ×2; 28485; 01480; 73620; 76000; 82962; 99100; A4580; A9270; C1713; J0665; J0690; J1100; J2704; J3010; J7120

== ENCOUNTER 2024-04-16 14:30 | Outpatient (RCR) | payer MEDICARE, SELFPAY ==
--- NOTE | 2024-03-12 12:40 | ONC.NURNOTE ---
Patient called today to get her next Reclast infusion scheduled. Per patient she is due in March. On review there are no orders for next Reclast infusion. Patient states she saw Dr. Meléndez in December and she should have faced them then. Advised patient to call Dr. Meléndez's office to requesting orders be faxed to the [facility] and then we would start the process of getting her scheduled.
--- NOTE | 2024-03-26 14:14 | URNOTE ---
Prior auth is not required for Reclast ([id number]) per [facility] list.
[2024-03-29 14:34] VITALS: BP 128/57; PULSE 65; RESP 16; TEMP 36.9; O2SAT 100
--- NOTE | 2024-03-29 14:49 | PC.NURSE ---
Pt arrived at [facility] today for a Reclast infusion. Per MD orders this is pt's first infusion so PA was done no PA required and pt was scheduled for today. Upon interviewing pt, she shared that she had Reclast last March. RN looked up that date and it appears pt had that infusion on 04/14/2023. Given this was less than 1 year ago, infusion postponed to 04/16/2024. Maryam understands and appreciates the consideration. Support offered.
--- NOTE | 2024-04-12 13:17 | PC.NURSE ---
Spoke directly with Maryam. She plans to have her Reclast infusion next Monday as scheduled. Of note, pt is scheduled for a foot surgery on Monday. She is aware and doesn't want to change her schedule.
[2024-04-16 14:33] VITALS: BP 121/56; PULSE 65; RESP 16; TEMP 36.7; O2SAT 99
[2024-04-16] MEDS: ZOLEDRONIC ACID 5 mg/100 ml 100 ML 400 MG IVPB (14:47)
[2024-04-16] MEDS: SODIUM CHLORIDE 0.9 % (FLUSH) 10 ML SYRINGE IVF (14:52)
== END 2024-07-02 23:59 | disposition home or self-care (01) ==
LOC: CCIC 14:30
PROVIDERS: PCP Internal Medicine; Referring Provider Internal Medicine; Visit Provider Physician Assistant
DX: C50.911 Malignant neoplasm of unspecified site of right female breast (principal)
CPT/HCPCS: 96374; 99213; G0463; J3489

== ENCOUNTER 2024-04-19 13:43 | Inpatient (IN) | payer MEDICARE, SELFPAY ==
[2024-04-19 14:06] VITALS: BP 144/66; PULSE 75; RESP 18; TEMP 36.8; O2SAT 97; BMI 25.8
--- NOTE | 2024-04-19 15:12 | ED_ITS ---
HPI - General Adult General Date Seen: 04/19/24 Chief complaint: Post Op Complication Stated complaint: L leg swelling post op monday Time Seen by Provider: 04/19/24 15:01 History of Present Illness HPI narrative: 78-year-old female with history of hypertension, previous stroke, type 2 diabetes, hyperlipidemia, GERD, psoriasis, depression, who is 4 days status post left foot surgery presenting to the ER today with swelling of her left lower leg and foot. She had been having problems with left foot pain. She follows with Podiatry, Dr. Lula pride through the [facility] clinic. She had been scheduled for surgery on April 01 but had to cancel the surgery because the day before surgery she developed swelling and pain of her left foot. Surgery canceled due to possible foot infection. Plan was to treat the infection and do surgery in 2 weeks. She ultimately had the surgery 5 days ago on Monday. It sounds like she had 3 incisions on her foot. She had correction of her the index toe hammertoe as well as fixation of a metatarsal stress fracture and fusion of her metatarsals. She was placed into a postop dressing and discharged home. At her follow-up on postop day 2 on Monday she was noted to have some redness of the foot and was started on cephalexin. She had dressings reapplied in the clinic on Monday and is not taking them off since then. She is having some pain but it is manageable with her Tylenol and oxycodone. She has been able to ambulate and even went to the grocery store today. She noted today that she is developing new swelling on her distal calf. Also some new redness on the skin of heard distal half of her davis and calf. She is not having any fevers or chills. No body aches. No weakness. No chest pain or shortness of breath. Because of leg swelling she came to the ER with concern that she might have a DVT. When we examine her foot and take off the dressings there is significant erythema affecting the entire foot which she says is demonstrably more widespread than when she was in the clinic on Monday. Related Data Home Medications ?Medication ?Instructions ?Recorded ?Confirmed acetaminophen 500 mg tablet 1,000 mg PO Q6H PRN 07/28/22 04/15/24 (Tylenol Extra Strength) biotin 2,500 mcg capsule 5,000 mcg PO DAILY 09/19/22 04/15/24 calcium 600 mg (as 1 cap PO DAILY 09/19/22 04/15/24 carbonate)-vitamin D3 25 mcg (1,000 unit) capsule glucos sul [id number] 1 cap PO DAILY 09/19/22 04/01/24 [Glucosamine Chondroitin] valacyclovir 500 mg tablet 500 mg PO BID PRN 09/19/22 04/15/24 folic acid 1 mg tablet 1 mg PO QDAY 04/04/23 04/15/24 nifedipine 30 mg tablet,extended 30 mg PO QDAY 04/04/23 04/15/24 release 24 hr (Procardia XL) magnesium oxide 400 mg (241.3 mg 400 mg PO BID 04/10/23 04/15/24 magnesium) tablet clindamycin phosphate 1 % topical 1 applic topical DAILY 09/20/23 04/15/24 gel, once daily insulin glargine 100 unit/mL (3 16 - 18 unit subcut QAM 11/22/23 04/01/24 mL) subcutaneous pen minoxidil 2.5 mg tablet 2.5 mg PO DAILY 03/25/24 04/15/24 cephalexin 500 mg capsule 500 mg PO 3XD 04/19/24 04/19/24 Previous Rx's ?Medication ?Instructions ?Recorded carvedilol 6.25 mg tablet 6.25 mg PO BID #180 tabs 06/23/22 gabapentin 300 mg capsule 300 mg PO BID #180 caps 08/17/23 betamethasone dipropionate 0.05 % 1 applic topical BID PRN itching 09/05/23 topical cream #15 grams clobetasol 0.05 % topical ointment 1 applic topical .twice weekly 10/06/23 months #30 grams glucagon HCl 1 mg solution for 1 mg IM ONCE #1 ea 10/10/23 injection timolol maleate 0.5 % eye drops 1 drp ophthalmic (eye) HS #5 mL 10/19/23 ondansetron 4 mg disintegrating 4 mg PO Q6H PRN nausea and 10/30/23 tablet vomiting #10 tabs pen needle, diabetic 31 gauge x #300 ea 12/12/2309/08 (BD Ultra-Fine Mini Pen Needle) atorvastatin 10 mg tablet 10 mg PO QPM #90 tabs 12/27/23 clopidogrel 75 mg tablet 75 mg PO DAILY #90 tabs 12/27/23 diazepam 2 mg tablet 2 mg PO DAILY PRN muscle spasm #20 01/02/24 tabs eszopiclone 2 mg tablet (Lunesta) 2 mg PO QHS #90 tabs 01/04/24 beclomethasone dipropionate 80 2 inh PO BID #10.6 grams 01/08/24 mcg/actuation HFA breath activated aerosol (Qvar RediHaler) insulin aspart U-100 100 unit/mL 15 unit (0.15 mL) subcut TIDWM #15 01/29/24 (3 mL) subcutaneous pen (Novolog mL FlexPen U-100 Insulin aspart) omeprazole 20 mg capsule,delayed 20 mg PO DAILY #90 caps 01/29/24 release fluticasone propionate 50 2 spray intranasal BID #16 grams 02/29/24 mcg/actuation nasal spray,suspension (Allergy Relief (fluticasone)) albuterol sulfate 90 mcg/actuation 2 - 4 puff inhalation Q4-6H PRN 04/01/24 aerosol inhaler shortness of breath or wheezing #6.7 grams flash glucose sensor (FreeStyle #2 kits 04/08/24 Daja 14 Day Sensor kit) Allergies Allergy/AdvReac Type Severity Reaction Status Date / Time hazelnut Allergy Severe Throat Verified 04/16/24 14:37 closes and hives Sulfa (Sulfonamide Allergy Severe Anaphylaxis Verified 04/16/24 14:37 Antibiotics) adhesive Allergy Unknown Verified 04/16/24 14:37 cantaloupe Allergy Unknown Verified 04/16/24 14:37 codeine AdvReac Mild Nausea and Verified 04/16/24 14:37 Vomiting Gluten Meal AdvReac Unknown GI Uncoded 03/25/24 13:59 intolerance [facility] Medical History (Updated 04/19/24 @ 20:48 by Coleman Gonzalez MD) Heart murmur ?R01.1 - Cardiac murmur, unspecified (ICD-10) Health care directive on file (09/24/20) ?Z78.9 - Other specified health status (ICD-10) Adenomatous colon polyp ?D12.6 - Benign neoplasm of colon, unspecified (ICD-10) Gluteal pain ?M79.18 - Myalgia, other site (ICD-10) Lymphedema of breast ?I89.0 - Lymphedema, not elsewhere classified (ICD-10) Microalbuminuria due to type 2 diabetes mellitus ?E11.29 - Type 2 diabetes mellitus with other diabetic kidney complication (ICD-10) ?R80.9 - Proteinuria, unspecified (ICD-10) Type 2 diabetes mellitus (07/08/09) ?E11.9 - Type 2 diabetes mellitus without complications (ICD-10) History of ischemic stroke ?Z86.73 - Personal history of transient ischemic attack (TIA), and cerebral infarction without residual deficits (ICD-10) Anemia of chronic disease ?D63.8 - Anemia in other chronic diseases classified elsewhere (ICD-10) History of upper gastrointestinal bleeding ?Z87.19 - Personal history of other diseases of the digestive system (ICD-10) Breast cancer, right breast ?C50.911 - Malignant neoplasm of unspecified site of right female breast (ICD-10) History of hemorrhoids ?Z87.19 - Personal history of other diseases of the digestive system (ICD-10) History of breast cancer ?Z85.3 - Personal history of malignant neoplasm of breast (ICD-10) Rosacea (07/08/09) ?L71.9 - Rosacea, unspecified (ICD-10) Psoriasis (12/23/11) ?L40.9 - Psoriasis, unspecified (ICD-10) Pelvic floor dysfunction in female (2018) ?M62.89 - Other specified disorders of muscle (ICD-10) Obstructive sleep apnea syndrome (2018) ?G47.33 - Obstructive sleep apnea (adult) (pediatric) (ICD-10) Irritable bowel syndrome ?K58.9 - Irritable bowel syndrome without diarrhea (ICD-10) Hypomagnesemia ?E83.42 - Hypomagnesemia (ICD-10) Essential hypertension ?I10 - Essential (primary) hypertension (ICD-10) GERD (gastroesophageal reflux disease) ?K21.9 - Gastro-esophageal reflux disease without esophagitis (ICD-10) Chronic low back pain ?M54.50 - Low back pain, unspecified (ICD-10) ?G89.29 - Other chronic pain (ICD-10) Chronic insomnia ?F51.04 - Psychophysiologic insomnia (ICD-10) Chronic hyponatremia ?E87.1 - Hypo-osmolality and hyponatremia (ICD-10) Osteoporosis (~09/2021) ?M81.0 - Age-related osteoporosis without current pathological fracture (ICD- 10) Asthma (07/08/09) ?J45.909 - Unspecified asthma, uncomplicated (ICD-10) Hyperplastic polyp of intestine ?K63.5 - Polyp of colon (ICD-10) History of depression (2001) ?Z86.59 - Personal history of other mental and behavioral disorders (ICD-10) Surgical History History of lumbar laminectomy for spinal cord decompression ?Z98.890 - Other specified postprocedural states (ICD-10) S/P breast lumpectomy (11/2021) ?Z98.890 - Other specified postprocedural states (ICD-10) History of hemorrhoidectomy ?Z98.890 - Other specified postprocedural states (ICD-10) History of basal cell carcinoma excision ?Z98.890 - Other specified postprocedural states (ICD-10) ?Z85.828 - Personal history of other malignant neoplasm of skin (ICD-10) History of foot surgery ?Z98.890 - Other specified postprocedural states (ICD-10) Hx of decompressive lumbar laminectomy ?Z98.890 - Other specified postprocedural states (ICD-10) History of cataract surgery ?Z98.49 - Cataract extraction status, unspecified eye (ICD-10) History of carpal tunnel release ?Z98.890 - Other specified postprocedural states (ICD-10) 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) ?Z96.659 - Presence of unspecified artificial knee joint (ICD-10) History of open reduction and internal fixation (ORIF) procedure (07/16/19) ?Z98.890 - Other specified postprocedural states (ICD-10) History of hysterectomy (07/08/09) ?Z90.710 - Acquired absence of both cervix and uterus (ICD-10) History of breast biopsy (07/08/09) ?Z98.890 - Other specified postprocedural states (ICD-10) History of blepharoplasty (07/08/09) ?Z98.890 - Other specified postprocedural states (ICD-10) History of bladder surgery (02/08/10) ?Z98.890 - Other specified postprocedural states (ICD-10) Family History Mother Diabetes Coronary artery disease Stroke Social History (Updated 04/19/24 @ 20:44 by Coleman Gonzalez MD) Narrative: 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 History of tobacco use She does not use recreational drugs. She rarely drinks alcohol. She has 1 biologic child, and 4 adopted children. Full code , Oren, healthcare power of admitted attorneys What is your current living situation?: I presently have a place to live Problems where you live: no known problems Problems where you live details: none In the past 12 months, utilities in danger of being shut off: no In past 12 months, lack of transportation kept you from medical appts, meetings, work, or getting things needed for daily living: no In the past 12 mos, have been you worried that your food would run out before you had money to buy more?: never true In the past 12 mos, the food you bought just didn't last and you didn't have money to buy more?: never true Highest level of school completed/degree received: Master's degree Smoking Status: Never smoker Do you use any of these nicotine containing products: None Second hand tobacco smoke exposure: No How often do you have a drink containing alcohol: never How often do you have six or more drinks on one occasion: Never AUDIT-C Alcohol total score: 0 Non-prescribed substance use: denies use Caffeine: No How often does anyone, including family, friends and others, physically hurt you : never How often does anyone, including family, friends and others, insult or talk down to you: never How often does anyone, including family, friends and others, threaten you with harm: never How often does anyone, including family, friends and others, scream or curse at you: never Little interest or pleasure in doing things: not at all Feeling down, depressed, or hopeless: not at all Are you using contraception or practicing any form of control: No service: No Exam Narrative: Exam Narrative: Constitutional: Appears well-developed and well-nourished. Alert. Conversant. Non toxic. HENT: Head: Atraumatic. Nose: Nose normal. Mouth/Throat: Oral mucosa is clear and moist. no trismus. Pharynx normal. Tonsils symmetric. No tonsillar enlargement, erythema, or exudate. Eyes: Conjunctivae normal. EOM normal. Pupils equal, round, and reactive to light. No scleral icterus. Neck: Normal range of motion. Neck supple. No tracheal deviation present. Cardiovascular: Normal rate, regular rhythm. No gallop. No friction rub. No murmur heard. Symmetric radial artery pulses Pulmonary/Chest: Effort normal. No stridor. No respiratory distress. No wheezes. No rales. No rhonchi . No tenderness. Abdominal: Soft. Bowel sounds normal. No distension. No mass. No tenderness. No rebound. No guarding. Musculoskeletal: RUE: Normal range of motion. No tenderness. No deformity LUE: Normal range of motion. No tenderness. No deformity RLE: Normal range of motion. No edema. No tenderness. No deformity LLE: Normal range of motion in her hip, knee, ankle. She does have 2+ edema affecting the distal half of the davis, calf, ankle. There is erythema over the distal 1/3 of her davis. She has Coban dressings over her foot and ankle which we took down for exam. She has widespread bright erythema and warmth affecting the entire dorsum of her foot from the toes all the way up to the ankle. The foot is swollen and edematous. No palpable fluctuance. She has 3 incisions which have been sutured closed. The suture lines with great in the incisions are well apposed and dry. No bleeding. No purulent drainage. No palpable fluctuance. No crepitus. We reapplied a clean sterile gauze dressing with Co ban to keep in place. Lymph: No ascending lymphangitis Neurological: Alert and oriented to person, place, and time. Normal strength. CN II-VII intact. No sensory deficit. GCS eye subscore is 4. GCS verbal subscore is 5. GCS motor subscore is 6. Normal coordination Skin: Skin is warm and dry. No rash noted. No pallor. Normal capillary refill. Psychiatric: Normal mood. Normal affect. Const: Vital Signs, click to edit/add: Vital Signs - 24 hr 04/19/24 14:06 04/19/24 16:36 04/19/24 18:42 Temperature 98.2 F 97.7 F 97.7 F Pulse Rate [Left P ulse Oximeter] 75 Pulse Rate [Pulse Oximeter] 75 81 Respiratory Rate 18 19 18 Blood Pressure [Le ft Arm] 116/67 Blood Pressure [Ri ght Upper Arm] 144/66 H 149/69 H Pulse Oximetry 97 98 98 Oxygen Delivery Me thod Room Air Room Air 04/19/24 19:00 Temperature 98 F Pulse Rate [Left P ulse Oximeter] 71 Pulse Rate [Pulse Oximeter] Respiratory Rate 18 Blood Pressure [Le ft Arm] 138/76 Blood Pressure [Ri ght Upper Arm] Pulse Oximetry 97 Oxygen Delivery Me thod Room Air Course Vital Signs Vital signs: Initial Vital Signs Temperature 98.2 F 04/19/24 14:06 Temperature Source Temporal Artery Scan 04/19/24 14:06 Pulse Rate 75 04/19/24 14:06 Respiratory Rate 18 04/19/24 14:06 Blood Pressure 144/66 H 04/19/24 14:06 Blood Pressure Mean 92 04/19/24 14:06 Blood Pressure Position Sitting 04/19/24 14:06 Pulse Oximetry 97 04/19/24 14:06 Oxygen Delivery Method Room Air 04/19/24 14:06 Vital Signs Temperature 98.2 F 04/19/24 14:06 Pulse Rate 75 04/19/24 14:06 Respiratory Rate 18 04/19/24 14:06 Blood Pressure 144/66 H 04/19/24 14:06 Pulse Oximetry 97 04/19/24 14:06 Oxygen Delivery Method Room Air 04/19/24 14:06 Temperature 98.6 F 04/19/24 22:37 Pulse Rate 73 04/19/24 22:37 Respiratory Rate 18 04/19/24 22:37 Blood Pressure 144/70 H 04/19/24 22:37 Pulse Oximetry 95 04/19/24 22:37 Oxygen Delivery Method Room Air 04/19/24 22:37 Medications Administered Medications: Generic Name Dose Route Start Last Admin Trade Name Freq PRN Reason Stop Dose Admin Atorvastatin Calcium 10 mg 04/19/24 21:15 04/19/24 21:48 Atorvastatin 10 Mg Tablet PO 10 mg QPM ROMAN Administration Carvedilol 6.25 mg 04/19/24 21:15 04/19/24 21:48 Carvedilol 6.25 Mg Tablet PO 6.25 mg BID ROMAN Administration Gabapentin 300 mg 04/19/24 21:15 04/19/24 21:48 Gabapentin 300 Mg Capsule PO 300 mg BID ROMAN Administration Piperacillin Sod/Tazobactam 100 mls @ 200 mls/hr 04/19/24 23:00 04/19/24 22:35 Sod 3.375 gm/ Sodium Chloride IVPB 200 mls/hr Q6H ROMAN Administration IV Miscellaneous Supplies 1 each 04/19/24 15:50 04/19/24 16:00 Pharmacist Consult 1 each Q24H ROMAN Administration Protocol Melatonin 3 mg 04/19/24 19:20 04/19/24 21:48 Melatonin 3 Mg Tablet PO 3 mg HS PRN Administration Sodium Chloride 5 ml 04/19/24 21:00 04/19/24 21:50 Sodium Chloride 0.9 % (Flush) 10 Ml Syringe IVF 5 ml BID ROMAN Administration Discontinued Medications Generic Name Dose Route Start Last Admin Trade Name Freq PRN Reason Stop Dose Admin Acetaminophen 1,000 mg 04/19/24 16:51 04/19/24 17:03 Acetaminophen 500 Mg Tablet PO 04/19/24 16:52 1,000 mg ONCE ONE Administration Vancomycin/PEG/NADA/Lysine/Water 1.5 gm in 300 mls @ 171.429 mls/hr 04/19/24 16:15 04/19/24 17:08 Vancomycin 1.75 Gm/350 Ml IVPB 04/19/24 17:59 171.43 mls/hr ONCE ONE Administration Protocol Piperacillin Sod/Tazobactam 100 mls @ 200 mls/hr 04/19/24 16:00 04/19/24 17:09 Sod 4.5 gm/ Sodium Chloride IVPB Infused Q6H ROMAN Infusion Oxycodone HCl 5 mg 04/19/24 16:51 04/19/24 17:04 Oxycodone 5 Mg Tablet PO 04/19/24 16:52 5 mg ONCE ONE Administration Medical Decision Making [facility] Narrative Medical decision making narrative: Very pleasant 78-year-old female with history of type 2 diabetes presenting to the ER today with swelling of her left leg. She is 4 days status post left foot surgery. Patient was concerned about possible DVT. Overall I felt that was unlikely but we did obtain CT ultrasound and fortunately ultrasound is negative for DVT. Clinical exam does show spreading redness of her foot as well as redness spreading up her distal davis which is concerning for possible evolving foot infection. Laboratory workup shows white count normal but elevated CRP. She is not febrile. She is not displaying sepsis physiology. Lactic acid normal. However clinical exam highly suggestive for spreading foot cellulitis. I do not appreciate any palpable fluctuance and there is no purulent drainage from her wounds to suggest an actively purulent infection. Discussed with the patient's surgeon, Dr. Brown, by phone. He advises that we start the patient on a more broad spectrum antibiotics since she is failing outpatient therapy with cephalexin. He will come see her later this evening. Since she is diabetic with infection that is failing outpatient oral antibiotics he would like us to get her admitted for IV antibiotics. Although she is not currently septic concern is that she may develop osteomyelitis or see the hardware which could lead to other more significant long-term problems for the patient. Patient is agreeable to be admitted. Discussed with our hospitalist, Dr. Gonzalez, who graciously agrees to admit. Lab Data Labs: Lab Results 04/19/24 Range/Units 15:50 WBC 6.76 (4.50-11.00) K/uL RBC 3.25 L (4.00-5.20) m/uL Hgb 10.3 L (12.0-16.0) gm/dL Hct 30.7 L (33.0-51.0) % MCV 95 (80-100) fL MCH 32 (26-34) pg MCHC 34 (32-36) gm/dL RDW Coeff of Don 12.1 (11.5-15.5) % Plt Count 211 (140-440) K/uL Neut % (Auto) 84.6 H (42.0-72.0) % Lymph % (Auto) 7.0 L (20-44) % [place] % (Auto) 6.7 (0.0-11.0) % Eos % (Auto) 1.3 (0.0-7.0) % Baso % (Auto) 0.3 (0.0-3.0) % Neut # (Auto) 5.70 (1.7-7.0) K/uL Lymph # (Auto) 0.50 L (0.90-2.90) K/uL [place] # (Auto) 0.50 (0.00-0.90) K/UL Eos # (Auto) 0.09 (0.00-0.50) K/uL Baso # (Auto) 0.02 (0.00-0.30) K/uL Abs Immat Gran (auto) 0.01 (0.00-0.30) K/uL Imm/Tot Granulo (auto) 0.1 % Sodium 126 L (135-149) mmol/L Potassium 3.6 (3.6-5.1) mmol/L Chloride 91 L (96-114) mmol/L Carbon Dioxide 26 (20-32) mmol/L Anion Gap 9 (7-15) mEq/L BUN 17 (7-30) mg/dL Creatinine 0.5 (0.5-1.5) mg/dL Estimated Creat Clear 43.07 Estimated GFR 97 ml/min Glucose 138 H (60-115) mg/dL Lactate 0.5 (0.5-1.9) mmol/L Calcium 8.2 L (8.4-10.6) mg/dL C-Reactive Protein 8.4 H (0.5-1.0) mg/dL Imaging Data US venous Left leg: Attestation: I have reviewed the pertinent imaging results. Radiologist's impression: IMPRESSION: Normal left lower extremity venous ultrasound, no sign of deep venous thrombosis. Discharge Plan Discharge Clinical Impression: Cellulitis of foot, left Patient Disposition: Admitted As Observation
--- NOTE | 2024-04-19 15:38 | CRLHL7_ITS ---
For Patients: As a result of the Century Cures Act, medical imaging exams and procedure reports are released immediately into your electronic medical record. You may view this report before your referring provider. If you have questions, please contact your health care provider. INDICATION: Leg pain and swelling. TECHNIQUE: Ultrasound venous duplex lower left extremity. Compression venous exam was performed using montanez-scale, color Doppler, and spectral Doppler analysis. COMPARISON: None. FINDINGS: Deep veins: Sonographic imaging demonstrates the left common femoral, deep femoral, superficial femoral, popliteal, posterior tibial and the contralateral right common femoral veins to be fully compressible with normal color Doppler blood flow. Superficial veins: Greater saphenous vein is fully compressible. No popliteal cyst. IMPRESSION: Normal left lower extremity venous ultrasound, no sign of deep venous thrombosis. Dictated by Luis Cladera MD @ 04/19/2024 5:15:19 PM (Electronically Signed)
[2024-04-19 15:54] LABS: Lactate* 0.5 mmol/L (0.5-1.9)
[2024-04-19 15:57] LABS: Basophils Absolute Auto 0.02 K/uL (0.00-0.30); Basophils Percent Auto 0.3 % (0.0-3.0); Eosinophils Absolute Auto 0.09 K/uL (0.00-0.50); Eosinophils Percent Auto 1.3 % (0.0-7.0); Hematocrit 30.7 % (33.0-51.0); Hemoglobin* 10.3 gm/dL (12.0-16.0); Immature Granulocytes Abs Auto 0.01 K/uL (0.00-0.30); Immature Granulocytes Pct Auto 0.1 %; Mean Corpuscular HGB Conc 34 gm/dL (32-36); Mean Corpuscular Hemoglobin 32 pg (26-34); Mean Corpuscular Volume 95 fL (80-100); Monocytes Percent Auto 6.7 % (0.0-11.0); Neutrophils Percent Auto 84.6 % (42.0-72.0); Platelet Count* 211 K/uL (140-440); RDW Coefficient of Variation % 12.1 % (11.5-15.5); Red Blood Count 3.25 m/uL (4.00-5.20); White Blood Count* 6.76 K/uL (4.50-11.00)
[2024-04-19 16:01] LABS: Slide Review Reflex No
[2024-04-19 16:13] LABS: Chloride* 91 mmol/L (96-114); Potassium* 3.6 mmol/L (3.6-5.1); Sodium* 126 mmol/L (135-149)
[2024-04-19 16:16] LABS: Creatinine* 0.5 mg/dL (0.5-1.5); Est. Creatinine Clearance* 43.07; Estimated Glomerular Filt Rate 97 ml/min
[2024-04-19 16:17] LABS: Anion Gap 9 mEq/L (7-15); Blood Urea Nitrogen* 17 mg/dL (7-30); Calcium* 8.2 mg/dL (8.4-10.6); Carbon Dioxide* 26 mmol/L (20-32); Glucose* 138 mg/dL (60-115)
[2024-04-19 16:20] LABS: C Reactive Protein* 8.4 mg/dL (0.5-1.0)
[2024-04-19 16:36] VITALS: BP 149/69; PULSE 81; RESP 19; TEMP 36.5; O2SAT 98
[2024-04-19] MEDS: PIPERACILLIN/TAZOBACTAM 4.5 GM in 0.9 % SODIUM CHLORIDE Mini-bag 100 ML IVPB (16:39)
[2024-04-19] MEDS: ACETAMINOPHEN 500 MG TABLET 1000 MG PO (17:03)
[2024-04-19] MEDS: OXYCODONE 5 MG TABLET PO (17:04)
[2024-04-19 18:42] VITALS: BP 116/67; PULSE 75; RESP 18; TEMP 36.5; O2SAT 98; BMI 25.8
[2024-04-19 19:00] VITALS: BP 138/76; PULSE 71; RESP 18; TEMP 36.6; O2SAT 97
[2024-04-19 19:52] VITALS: BP 149/69; PULSE 81; RESP 18; TEMP 36.5
--- NOTE | 2024-04-19 19:57 | CRLHL7_ITS ---
For Patients: As a result of the Cures Act, medical imaging exams and procedure reports are released immediately into your electronic medical record. You may view this report before your referring provider. If you have questions, please contact your health care provider. INDICATION: Postop infection. COMPARISON: Fluoroscopic images from 04/15/2024. FINDINGS: There is a metallic plate affixed to the dorsum of the 1st metatarsophalangeal joint and secured with multiple screws. There is adjacent soft tissue swelling. There is a longitudinally oriented screw within the 2nd toe extending into from the tip of the distal phalanx to the proximal phalangeal diaphysis. There is a longitudinal screw within the mid and proximal phalanges of the 3rd toe. There is a metallic plate affixed to the dorsum of the 3rd metatarsal securing an underlying fracture in this location. There prominent midfoot degenerative changes. There is no plain radiographic evidence of osteomyelitis. IMPRESSION: Postoperative changes as described above. Soft tissue swelling adjacent to the 1st metatarsophalangeal joint. No plain radiographic evidence of osteomyelitis. Dictated by Stephan Clark MD @ 04/19/2024 8:28:29 PM (Electronically Signed)
--- NOTE | 2024-04-19 20:35 | PM.IMHP1 ---
Hospitalist- H&P: HPI History of Present Illness Date Seen: 04/19/24 Chief complaint: L leg swelling post op monday Narrative: Maryam Cortez is a 78 year old female with diabetes mellitus presents with a red and swollen left foot 4 days after foot surgery. She underwent left foot surgery for bunion, 2nd and 3rd hammertoe deformity and 3rd metatarsal fracture [address] Fink. Surgery was uncomplicated. She saw him in clinic 2 days later and her foot had some erythema and swelling. Because of this she was started on Keflex for possible cellulitis. She has not had a fever. Per Dr. Fink who evaluated today the erythema and swelling is similar to what he saw on Monday. She has developed a little bit of diarrhea since starting the antibiotics. She has had good peripheral pulses and fairly good sensation in her feet. She has been weight-bearing with a postop boot on her foot. Review of Systems Narrative: Other than the changes in her foot she reports feeling well. No recent illness. No injury. [facility] Medical History (Updated 04/19/24 @ 20:48 by Coleman Gonzalez MD) Heart murmur ?R01.1 - Cardiac murmur, unspecified (ICD-10) Health care directive on file (09/24/20) ?Z78.9 - Other specified health status (ICD-10) Adenomatous colon polyp ?D12.6 - Benign neoplasm of colon, unspecified (ICD-10) Gluteal pain ?M79.18 - Myalgia, other site (ICD-10) Lymphedema of breast ?I89.0 - Lymphedema, not elsewhere classified (ICD-10) Microalbuminuria due to type 2 diabetes mellitus ?E11.29 - Type 2 diabetes mellitus with other diabetic kidney complication (ICD-10) ?R80.9 - Proteinuria, unspecified (ICD-10) Type 2 diabetes mellitus (07/08/09) ?E11.9 - Type 2 diabetes mellitus without complications (ICD-10) History of ischemic stroke ?Z86.73 - Personal history of transient ischemic attack (TIA), and cerebral infarction without residual deficits (ICD-10) Anemia of chronic disease ?D63.8 - Anemia in other chronic diseases classified elsewhere (ICD-10) History of upper gastrointestinal bleeding ?Z87.19 - Personal history of other diseases of the digestive system (ICD-10) Breast cancer, right breast ?C50.911 - Malignant neoplasm of unspecified site of right female breast (ICD-10) History of hemorrhoids ?Z87.19 - Personal history of other diseases of the digestive system (ICD-10) History of breast cancer ?Z85.3 - Personal history of malignant neoplasm of breast (ICD-10) Rosacea (07/08/09) ?L71.9 - Rosacea, unspecified (ICD-10) Psoriasis (12/23/11) ?L40.9 - Psoriasis, unspecified (ICD-10) Pelvic floor dysfunction in female (2018) ?M62.89 - Other specified disorders of muscle (ICD-10) Obstructive sleep apnea syndrome (2018) ?G47.33 - Obstructive sleep apnea (adult) (pediatric) (ICD-10) Irritable bowel syndrome ?K58.9 - Irritable bowel syndrome without diarrhea (ICD-10) Hypomagnesemia ?E83.42 - Hypomagnesemia (ICD-10) Essential hypertension ?I10 - Essential (primary) hypertension (ICD-10) GERD (gastroesophageal reflux disease) ?K21.9 - Gastro-esophageal reflux disease without esophagitis (ICD-10) Chronic low back pain ?M54.50 - Low back pain, unspecified (ICD-10) ?G89.29 - Other chronic pain (ICD-10) Chronic insomnia ?F51.04 - Psychophysiologic insomnia (ICD-10) Chronic hyponatremia ?E87.1 - Hypo-osmolality and hyponatremia (ICD-10) Osteoporosis (~09/2021) ?M81.0 - Age-related osteoporosis without current pathological fracture (ICD-10) Asthma (07/08/09) ?J45.909 - Unspecified asthma, uncomplicated (ICD-10) Hyperplastic polyp of intestine ?K63.5 - Polyp of colon (ICD-10) History of depression (2001) ?Z86.59 - Personal history of other mental and behavioral disorders (ICD-10) Surgical History History of lumbar laminectomy for spinal cord decompression ?Z98.890 - Other specified postprocedural states (ICD-10) S/P breast lumpectomy (11/2021) ?Z98.890 - Other specified postprocedural states (ICD-10) History of hemorrhoidectomy ?Z98.890 - Other specified postprocedural states (ICD-10) History of basal cell carcinoma excision ?Z98.890 - Other specified postprocedural states (ICD-10) ?Z85.828 - Personal history of other malignant neoplasm of skin (ICD-10) History of foot surgery ?Z98.890 - Other specified postprocedural states (ICD-10) Hx of decompressive lumbar laminectomy ?Z98.890 - Other specified postprocedural states (ICD-10) History of cataract surgery ?Z98.49 - Cataract extraction status, unspecified eye (ICD-10) History of carpal tunnel release ?Z98.890 - Other specified postprocedural states (ICD-10) 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) ?Z96.659 - Presence of unspecified artificial knee joint (ICD-10) History of open reduction and internal fixation (ORIF) procedure (07/16/19) ?Z98.890 - Other specified postprocedural states (ICD-10) History of hysterectomy (07/08/09) ?Z90.710 - Acquired absence of both cervix and uterus (ICD-10) History of breast biopsy (07/08/09) ?Z98.890 - Other specified postprocedural states (ICD-10) History of blepharoplasty (07/08/09) ?Z98.890 - Other specified postprocedural states (ICD-10) History of bladder surgery (02/08/10) ?Z98.890 - Other specified postprocedural states (ICD-10) Family History Mother Diabetes Coronary artery disease Stroke Social History (Updated 04/19/24 @ 20:44 by Coleman Gonzalez MD) Narrative: 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 History of tobacco use She does not use recreational drugs. She rarely drinks alcohol. She has 1 biologic child, and 4 adopted children. 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 What is your current living situation?: I presently have a place to live Problems where you live: no known problems Problems where you live details: none In the past 12 months, utilities in danger of being shut off: no In past 12 months, lack of transportation kept you from medical appts, meetings, work, or getting things needed for daily living: no In the past 12 mos, have been you worried that your food would run out before you had money to buy more?: never true In the past 12 mos, the food you bought just didn't last and you didn't have money to buy more?: never true Highest level of school completed/degree received: Master's degree Smoking Status: Never smoker Do you use any of these nicotine containing products: None Second hand tobacco smoke exposure: No How often do you have a drink containing alcohol: never How often do you have six or more drinks on one occasion: Never AUDIT-C Alcohol total score: 0 Non-prescribed substance use: denies use Caffeine: No How often does anyone, including family, friends and others, physically hurt you: never How often does anyone, including family, friends and others, insult or talk down to you: never How often does anyone, including family, friends and others, threaten you with harm: never How often does anyone, including family, friends and others, scream or curse at you: never Little interest or pleasure in doing things: not at all Feeling down, depressed, or hopeless: not at all Are you using contraception or practicing any form of control: No service: No Meds Home Medications and Allergies Home Medications ?Medication ?Instructions ?Recorded ?Confirmed ?Type acetaminophen 500 mg tablet 1,000 mg PO Q6H PRN 07/28/22 04/15/24 History (Tylenol Extra Strength) biotin 2,500 mcg capsule 5,000 mcg PO DAILY 09/19/22 04/15/24 History calcium 600 mg (as 1 cap PO DAILY 09/19/22 04/15/24 History carbonate)-vitamin D3 25 mcg (1,000 unit) capsule glucos sul 3BTh-yao-bdnim-C-Mn 1 cap PO DAILY 09/19/22 04/01/24 History [Glucosamine Chondroitin] valacyclovir 500 mg tablet 500 mg PO BID PRN 09/19/22 04/15/24 History folic acid 1 mg tablet 1 mg PO QDAY 04/04/23 04/15/24 History nifedipine 30 mg tablet,extended 30 mg PO QDAY 04/04/23 04/15/24 History release 24 hr (Procardia XL) magnesium oxide 400 mg (241.3 mg 400 mg PO BID 04/10/23 04/15/24 History magnesium) tablet clindamycin phosphate 1 % topical 1 applic topical DAILY 09/20/23 04/15/24 History gel, once daily insulin glargine 100 unit/mL (3 16 - 18 unit subcut QAM 11/22/23 04/01/24 History mL) subcutaneous pen minoxidil 2.5 mg tablet 2.5 mg PO DAILY 03/25/24 04/15/24 History cephalexin 500 mg capsule 500 mg PO 3XD 04/19/24 04/19/24 History Allergies Allergy/AdvReac Type Severity Reaction Status Date / Time hazelnut Allergy Severe Throat Verified 04/16/24 14:37 closes and hives Sulfa (Sulfonamide Allergy Severe Anaphylaxis Verified 04/16/24 14:37 Antibiotics) adhesive Allergy Unknown Verified 04/16/24 14:37 cantaloupe Allergy Unknown Verified 04/16/24 14:37 codeine AdvReac Mild Nausea and Verified 04/16/24 14:37 Vomiting Gluten Meal AdvReac Unknown GI Uncoded 03/25/24 13:59 intolerance Exam Narrative: Exam Narrative: She is alert and appears in no distress. She gives her own history. Good detail on recall of history and medications. Eyes normal. Oropharynx normal. Neck is supple without mass or adenopathy. Respirations are clear to auscultation. Cardiovascular: S1, S2, 2/6 systolic ejection murmur heard across the precordium. Regular rate and rhythm. Abdomen is soft without tenderness or mass. Upper extremities are normal. Lower extremities with brisk pedal pulses. Intact sensation to soft touch. She has left foot with two incisions over the metatarsals and over the dorsum of 2nd toe which are intact. Sutures still in place. No drainage. No fluctuance. Erythema that blanches with pressure. Good capillary refill. Mild to moderate edema. Foot is warm to touch. Const: Vital Signs, click to edit/add: Vital Signs - 24 hr 04/19/24 14:06 04/19/24 16:36 04/19/24 18:42 Temperature 98.2 F 97.7 F 97.7 F Pulse Rate [Left P ulse Oximeter] 75 Pulse Rate [Pulse Oximeter] 75 81 Respiratory Rate 18 19 18 Blood Pressure [Le ft Arm] 116/67 Blood Pressure [Ri ght Upper Arm] 144/66 H 149/69 H Pulse Oximetry 97 98 98 Oxygen Delivery Me thod Room Air Room Air 04/19/24 19:00 04/19/24 19:52 Temperature 98 F 97.7 F Pulse Rate [Left P ulse Oximeter] 71 Pulse Rate [Pulse Oximeter] 81 Respiratory Rate 18 18 Blood Pressure [Le ft Arm] 138/76 Blood Pressure [Ri ght Upper Arm] 149/69 H Pulse Oximetry 97 Oxygen Delivery Me thod Room Air Documenting provider has reviewed patient's vital signs: yes Hospitalist - H&P: Result Labs Labs: Short CBC 04/19/24 Range/Units 15:50 WBC 6.76 (4.50-11.00) K/uL Hgb 10.3 L (12.0-16.0) gm/dL Hct 30.7 L (33.0-51.0) % Plt Count 211 (140-440) K/uL BMP 04/19/24 15:50 Sodium 126 L Potassium 3.6 Chloride 91 L Carbon Dioxide 26 BUN 17 Creatinine 0.5 Glucose 138 H Calcium 8.2 L Imaging Foot radiograph: Radiologist's impression: INDICATION: Postop infection. COMPARISON: Fluoroscopic images from 04/15/2024. FINDINGS: There is a metallic plate affixed to the dorsum of the 1st metatarsophalangeal joint and secured with multiple screws. There is adjacent soft tissue swelling. There is a longitudinally oriented screw within the 2nd toe extending into from the tip of the distal phalanx to the proximal phalangeal diaphysis. There is a longitudinal screw within the mid and proximal phalanges of the 3rd toe. There is a metallic plate affixed to the dorsum of the 3rd metatarsal securing an underlying fracture in this location. There prominent midfoot degenerative changes. There is no plain radiographic evidence of osteomyelitis. IMPRESSION: Postoperative changes as described above. Soft tissue swelling adjacent to the 1st metatarsophalangeal joint. No plain radiographic evidence of osteomyelitis. Assessment and Plan Assessment and plan (1) Cellulitis of foot, left: Problem comment: Postop redness and swelling following left foot surgery on 04/15/2024. Initiate Zosyn and vancomycin pending clinical course. Consulting with Dr. Fink Status: Acute (2) Type 2 diabetes mellitus: Problem comment: Dxed 1980s, on Insulin since 2006, also on Metformin (in past) Status: Acute Plan Patient is admitted for IV antibiotics for management of postoperative left foot cellulitis. Continued monitoring with Dr. Fink. Total Time Spent Total Time Spent: Total time spent today is 65 minutes in coordination of care discussing with patient, and Dr. Fink ongoing evaluation management
[2024-04-19] MEDS: ATORVASTATIN 10 MG TABLET PO (21:48)
[2024-04-19] MEDS: MELATONIN 3 MG TABLET PO (21:48)
[2024-04-19] MEDS: carvediloL 6.25 MG TABLET PO (21:48)
[2024-04-19] MEDS: GABAPENTIN 300 MG CAPSULE PO (21:48)
[2024-04-19] MEDS: SODIUM CHLORIDE 0.9 % (FLUSH) 10 ML SYRINGE 5 ML IVF (21:50)
[2024-04-19] MEDS: PIPERACILLIN/TAZOBACTAM 3.375 GM in 0.9 % SODIUM CHLORIDE Mini-bag 100 ML IVPB (22:35)
[2024-04-19 22:37] VITALS: BP 144/70; PULSE 73; RESP 18; TEMP 37; O2SAT 95
[2024-04-20] MEDS: ACETAMINOPHEN 325 MG TABLET 650 MG PO ×4 (00:33→19:02)
[2024-04-20] MEDS: OXYCODONE 5 MG TABLET PO ×6 (00:33→21:18)
[2024-04-20 02:49] VITALS: BP 130/61; PULSE 64; RESP 18; TEMP 37; O2SAT 98
[2024-04-20] MEDS: PIPERACILLIN/TAZOBACTAM 3.375 GM in 0.9 % SODIUM CHLORIDE Mini-bag 100 ML IVPB ×3 (04:35→17:44)
--- NOTE | 2024-04-20 05:40 | PC.NURSE ---
Shift note: Pt is pleasant, alert and oriented. Pt used CPAP throughout the night. LOREN wrap to the left leg intact, clean and dry. She continue to use boot to the left leg for ambulation. Pt had adequate sleep. Vitally stable. Pt takes Oxycodone and Tylenol for lower back pain and shoulder pain. Order to take stool to the lab for C.Diff is still pending. Pt had 1 small bm but was hard and formed. Therefore, sample was not collected tonight.
[2024-04-20 06:55] LABS: Basophils Absolute Auto 0.03 K/uL (0.00-0.30); Basophils Percent Auto 0.5 % (0.0-3.0); Eosinophils Absolute Auto 0.18 K/uL (0.00-0.50); Eosinophils Percent Auto 3.3 % (0.0-7.0); Hematocrit 30.9 % (33.0-51.0); Hemoglobin* 10.3 gm/dL (12.0-16.0); Immature Granulocytes Abs Auto 0.01 K/uL (0.00-0.30); Immature Granulocytes Pct Auto 0.2 %; Lymphocytes Percent Auto 8.9 % (20-44); Mean Corpuscular HGB Conc 33 gm/dL (32-36); Mean Corpuscular Hemoglobin 32 pg (26-34); Mean Corpuscular Volume 95 fL (80-100); Monocytes Percent Auto 7.5 % (0.0-11.0); Neutrophils Percent Auto 79.6 % (42.0-72.0); Platelet Count* 252 K/uL (140-440); RDW Coefficient of Variation % 12.2 % (11.5-15.5); Red Blood Count 3.24 m/uL (4.00-5.20); White Blood Count* 5.49 K/uL (4.50-11.00)
[2024-04-20 07:00] VITALS: BP 144/66; PULSE 84; RESP 16; TEMP 36.6; O2SAT 97
[2024-04-20 07:00] LABS: Slide Review Reflex No
[2024-04-20 07:10] LABS: Chloride* 94 mmol/L (96-114); Potassium* 3.4 mmol/L (3.6-5.1); Sodium* 129 mmol/L (135-149)
[2024-04-20 07:13] LABS: Creatinine* 0.6 mg/dL (0.5-1.5); Est. Creatinine Clearance* 43.07; Estimated Glomerular Filt Rate 93 ml/min
[2024-04-20 07:14] LABS: Anion Gap 10 mEq/L (7-15); Blood Urea Nitrogen* 14 mg/dL (7-30); Calcium* 8.1 mg/dL (8.4-10.6); Carbon Dioxide* 25 mmol/L (20-32); Glucose* 139 mg/dL (60-115)
[2024-04-20 07:17] LABS: C Reactive Protein* 6.9 mg/dL (0.5-1.0)
[2024-04-20] MEDS: INSULIN ASPART 100 UNIT/ML SUBCUT ×3 (07:53→17:51)
[2024-04-20] MEDS: INSULIN GLARGINE,HUM.REC.ANLOG 100 UNIT/ML INSULN.PEN 18 UNIT SUBCUT (07:54)
[2024-04-20] MEDS: OMEPRAZOLE 20 MG CAPSULE DR PO (07:55)
[2024-04-20] MEDS: NIFEdipine 30 MG TAB.ER.24 PO (07:55)
[2024-04-20] MEDS: CLOPIDOGREL 75 MG TABLET PO (07:56)
[2024-04-20] MEDS: GABAPENTIN 300 MG CAPSULE PO ×2 (07:56→19:00)
[2024-04-20] MEDS: carvediloL 6.25 MG TABLET PO ×2 (07:56→18:59)
[2024-04-20] MEDS: FOLIC ACID 1 MG TABLET PO (07:56)
[2024-04-20] MEDS: MAGNESIUM OXIDE 400 MG TABLET PO ×2 (10:09→18:59)
[2024-04-20] MEDS: VANCOMYCIN 1.25 GM/250 ML 1.25 GM/250 ML PIGGYBACK IVPB ×2 (10:09→21:17)
[2024-04-20] MEDS: SODIUM CHLORIDE 0.9 % (FLUSH) 10 ML SYRINGE 5 ML IVF ×3 (10:10→21:18)
[2024-04-20 11:00] VITALS: BP 148/71; PULSE 67; RESP 16; TEMP 36.8; O2SAT 99
[2024-04-20 15:00] VITALS: BP 155/69; PULSE 73; RESP 18; TEMP 36.7; O2SAT 98
--- NOTE | 2024-04-20 15:32 | PC.NURSE ---
End of shift-- Pt is cooperative, alert and oriented. VSS and pt is afebrile. SPO2 maintained >94% on RA. Pain in left lower extremity appears well managed with oxycodone and Tylenol. LOREN wrap and dressing C/D/I and pt is wearing a boot for ambulation. LLE is mildly reddened and edematous. LS CTA. She denied nausea and tolerated a regular diabetic diet without difficulty. She had 1x large, formed BM today. BS 140-170s today and pt was given insulin per sliding scale. She was up to the BR and ambulated in hallway independently and tolerated it well. Report to ROCCO Duran
--- NOTE | 2024-04-20 16:03 | PM.IMPN1 ---
Progress Note: A&P Assessment and plan (1) Cellulitis of foot, left: Problem details: Postop redness and swelling following left foot surgery on 04/15/2024. Initiate Zosyn and vancomycin pending clinical course. Consulting with Dr. Fink Status: Acute (2) Type 2 diabetes mellitus: Problem details: Dxed 1980s, on Insulin since 2006, also on Metformin (in past) Status: Acute Plan Continue in hospital for 1 more day of IV antibiotics. If continued to improve consider outpatient follow-up. Dr. Fink will be out of the office next week but he has made arrangements for her to see Dr. Richardson in [place]. Time Spent With Patient Total time spent: Total time spent today is 40 minutes in coordination of care and discussing with patient and other providers management of foot cellulitis. Subjective Date Seen: 04/20/24 Interval history: Maryam Cortez is a 78 year old female with diabetes mellitus presents with a red and swollen left foot 4 days after foot surgery. She underwent left foot surgery for bunion, 2nd and 3rd hammertoe deformity and 3rd metatarsal fracture [address] Fink. Surgery was uncomplicated. She saw him in clinic 2 days later and her foot had some erythema and swelling. Because of this she was started on Keflex for possible cellulitis. She has not had a fever. Per Dr. Fink who evaluated today the erythema and swelling is similar to what he saw on Monday. She has developed a little bit of diarrhea since starting the antibiotics. She has had good peripheral pulses and fairly good sensation in her feet. She has been weight-bearing with a postop boot on her foot. April 20: Patient reports feeling fine except still having pain in the 3rd toe/3rd metatarsal. She describes it as a lancinating pain for which she is still taking oxycodone. Otherwise she has no concerns. She is feeling well. Not having a fever. Yesterday she had diarrhea but since then she has had 2 formed stools. No abdominal pain. Exam Narrative: Exam Narrative: Right Foot is examined with Dr. Fink. It appears to be modestly better in erythema and swelling. No areas of fluctuance. No drainage from the incisions. Good capillary refill and pulses. Const: Vital Signs, click to edit/add: Vital Signs - 24 hr 04/19/24 16:36 04/19/24 18:42 04/19/24 19:00 Temperature 97.7 F 97.7 F 98 F Pulse Rate [Left P ulse Oximeter] 75 71 Pulse Rate [Pulse Oximeter] 81 Respiratory Rate 19 18 18 Blood Pressure [Le ft Arm] 116/67 138/76 Blood Pressure [Ri ght Arm] Blood Pressure [Ri ght Upper Arm] 149/69 H Pulse Oximetry 98 98 97 Oxygen Delivery Me thod Room Air Room Air 04/19/24 19:52 04/19/24 22:37 04/19/24 22:37 Temperature 97.7 F 98.6 F Pulse Rate [Left P ulse Oximeter] 73 73 Pulse Rate [Pulse Oximeter] 81 Respiratory Rate 18 18 18 Blood Pressure [Le ft Arm] 144/70 H Blood Pressure [Ri ght Arm] Blood Pressure [Ri ght Upper Arm] 149/69 H Pulse Oximetry 95 Oxygen Delivery Me thod Room Air 04/20/24 02:49 04/20/24 07:00 04/20/24 07:00 Temperature 98.6 F 97.8 F Pulse Rate [Left P ulse Oximeter] 64 84 84 Pulse Rate [Pulse Oximeter] Respiratory Rate 18 16 16 Blood Pressure [Le ft Arm] 130/61 Blood Pressure [Ri ght Arm] 144/66 H Blood Pressure [Ri ght Upper Arm] Pulse Oximetry 98 97 Oxygen Delivery Me thod CPAP Room Air 04/20/24 11:00 Temperature 98.2 F Pulse Rate [Left P ulse Oximeter] 67 Pulse Rate [Pulse Oximeter] Respiratory Rate 16 Blood Pressure [Le ft Arm] Blood Pressure [Ri ght Arm] 148/71 H Blood Pressure [Ri ght Upper Arm] Pulse Oximetry 99 Oxygen Delivery Me thod Room Air Documenting provider has reviewed patient's vital signs: yes Labs Labs: Laboratory Results - last 24 hr 04/19/24 04/20/24 15:50 06:12 WBC 5.49 RBC 3.24 L Hgb 10.3 L Hct 30.9 L MCV 95 MCH 32 MCHC 33 RDW Coeff of Don 12.2 Plt Count 252 Neut % (Auto) 79.6 H Lymph % (Auto) 8.9 L [place] % (Auto) 7.5 Eos % (Auto) 3.3 Baso % (Auto) 0.5 Neut # (Auto) 4.40 Lymph # (Auto) 0.50 L [place] # (Auto) 0.40 Eos # (Auto) 0.18 Baso # (Auto) 0.03 Abs Immat Gran (auto) 0.01 Imm/Tot Granulo (auto) 0.2 Sodium 126 L 129 L Potassium 3.6 3.4 L Chloride 91 L 94 L Carbon Dioxide 26 25 Anion Gap 9 10 BUN 17 14 Creatinine 0.5 0.6 Estimated Creat Clear 43.07 43.07 Estimated GFR 97 93 Glucose 138 H 139 H Calcium 8.2 L 8.1 L C-Reactive Protein 8.4 H 6.9 H
[2024-04-20] MEDS: ATORVASTATIN 10 MG TABLET PO (18:59)
[2024-04-20 19:00] VITALS: BP 172/86; PULSE 86; RESP 16; TEMP 36.9; O2SAT 98
[2024-04-20 23:00] VITALS: BP 149/75; PULSE 82; PULSE 86; RESP 16; RESP 18; TEMP 37; O2SAT 95
[2024-04-21] VITALS (9 sets, daily range): BP systolic 130–178; BP diastolic 68–88; PULSE 71–120; RESP 18–22; TEMP 36.6–37.7; O2SAT 87–97
[2024-04-21] MEDS: PIPERACILLIN/TAZOBACTAM 3.375 GM in 0.9 % SODIUM CHLORIDE Mini-bag 100 ML IVPB ×4 (02:34→20:29)
[2024-04-21 07:02] LABS: Basophils Absolute Auto 0.02 K/uL (0.00-0.30); Basophils Percent Auto 0.3 % (0.0-3.0); Eosinophils Absolute Auto 0.12 K/uL (0.00-0.50); Eosinophils Percent Auto 1.9 % (0.0-7.0); Hematocrit 29.3 % (33.0-51.0); Hemoglobin* 9.8 gm/dL (12.0-16.0); Immature Granulocytes Abs Auto 0.01 K/uL (0.00-0.30); Immature Granulocytes Pct Auto 0.2 %; Lymphocytes Percent Auto 8.9 % (20-44); Mean Corpuscular HGB Conc 33 gm/dL (32-36); Mean Corpuscular Hemoglobin 32 pg (26-34); Mean Corpuscular Volume 95 fL (80-100); Monocytes Percent Auto 10.2 % (0.0-11.0); Neutrophils Percent Auto 78.5 % (42.0-72.0); Platelet Count* 240 K/uL (140-440); RDW Coefficient of Variation % 12.2 % (11.5-15.5); Red Blood Count 3.08 m/uL (4.00-5.20); White Blood Count* 6.27 K/uL (4.50-11.00)
[2024-04-21 07:06] LABS: Slide Review Reflex No
[2024-04-21 07:18] LABS: Chloride* 101 mmol/L (96-114); Potassium* 3.7 mmol/L (3.6-5.1); Sodium* 130 mmol/L (135-149)
[2024-04-21 07:21] LABS: Anion Gap 7 mEq/L (7-15); Carbon Dioxide* 22 mmol/L (20-32); Creatinine* 0.6 mg/dL (0.5-1.5); Est. Creatinine Clearance* 43.07; Estimated Glomerular Filt Rate 93 ml/min
[2024-04-21 07:22] LABS: Blood Urea Nitrogen* 18 mg/dL (7-30); Calcium* 8.3 mg/dL (8.4-10.6); Glucose* 161 mg/dL (60-115)
[2024-04-21 07:25] LABS: C Reactive Protein* 6.2 mg/dL (0.5-1.0)
--- NOTE | 2024-04-21 07:49 | PC.NURSE ---
End of shift report [id number]: Alert and oriented x 4. Cooperative with cares. Denies any shortness of breath or chest pain. Pain to LLE managed with current regimen. Dressing intact with johnny wrap to LLE, redness noted to upper calf running around entire lower extremity, leg is warm to the touch. Utilizes boot cast to LLE for ambulation. At 0200 patient placed call light on and reporting having a bad dream, during her dream she had pulled her CPAP off and threw it to the floor. Patient appeard tachypneic and was tachycardic at that time, pulse 120 and hypertensive. Patient was able to sit bed side and was able to bring herself back to current time. At 0600 patient placed light on and was reporting feeling off, feeling to LLE was different and patient was stating she felt mentally and emotionally different, patient was able to verbalize needs and remote mortgage underwriter offered aromatherapy and warm cup of coffee. Patient was able to call as well. Clearing Tub Worker discussed patient current feelings as well as her report that redness to LLE appeared to be growing, remote mortgage underwriter outlined and dated redness. Updated Dr. Gonzalez with patient reports of emotional and mental status.
[2024-04-21] MEDS: FOLIC ACID 1 MG TABLET PO (08:38)
[2024-04-21] MEDS: carvediloL 6.25 MG TABLET PO ×2 (08:38→20:29)
[2024-04-21] MEDS: MAGNESIUM OXIDE 400 MG TABLET PO ×2 (08:38→20:30)
[2024-04-21] MEDS: CLOPIDOGREL 75 MG TABLET PO (08:39)
[2024-04-21] MEDS: OMEPRAZOLE 20 MG CAPSULE DR PO (08:39)
[2024-04-21] MEDS: NIFEdipine 30 MG TAB.ER.24 PO (08:39)
[2024-04-21] MEDS: GABAPENTIN 300 MG CAPSULE PO ×2 (08:39→20:30)
[2024-04-21] MEDS: INSULIN GLARGINE,HUM.REC.ANLOG 100 UNIT/ML INSULN.PEN 18 UNIT SUBCUT (08:48)
[2024-04-21] MEDS: INSULIN ASPART 100 UNIT/ML SUBCUT ×3 (08:51→18:05)
[2024-04-21 09:42] LABS: D Dimer Quantitative* 2.27 ug/ml (0.00-0.50)
[2024-04-21] MEDS: VANCOMYCIN 1.25 GM/250 ML 1.25 GM/250 ML PIGGYBACK IVPB ×2 (09:47→20:52)
[2024-04-21] MEDS: OXYCODONE 5 MG TABLET PO ×3 (11:17→22:17)
[2024-04-21] MEDS: ACETAMINOPHEN 325 MG TABLET 650 MG PO ×2 (11:18→22:17)
--- NOTE | 2024-04-21 14:28 | PC.NURSE ---
End of Shift: Patient cooperative, A&O. VSS, afebrile. SpO2 maintained above 90% on RA this shift.?LOREN wrap and dressing on left foot appear C/D/I. Patient has been wearing boot when ambulating. Patient reports pain in her left foot this shift, managed with Tylenol and Oxycodone. Independent in room.
--- NOTE | 2024-04-21 14:59 | P.IMPN_ITS ---
Progress Note: A&P Assessment and plan (1) Cellulitis of foot, left: Problem details: Postop redness and swelling following left foot surgery on 04/15/2024. Initiate Zosyn and vancomycin pending clinical course. Consulting with Dr. Fink Status: Acute (2) Type 2 diabetes mellitus: Problem details: Dxed , on Insulin since 2006, also on Metformin (in past). Blood sugars under fair control in the hospital, 150s to 180s Status: Acute (3) Anxiety: Problem details: Patient admits to significant anxiety about her health care. She is currently feeling like she is able to manage her symptoms Status: Acute (4) Aortic stenosis: Problem details: History of aortic sclerosis but clinically I suspect she has developed some aortic stenosis. Consider outpatient echocardiogram. Status: Acute Plan Continue in hospital for 1 more day of IV antibiotics for treatment of her postop infection. Possible discharge tomorrow for outpatient antibiotics and follow-up podiatry. Time Spent With Patient Total time spent: Total time spent today is 60 minutes in evaluation and management and discussion with patient and and other providers ongoing treatment of her foot and anxiety and other medical problems. Subjective Date Seen: 04/21/24 Interval history: Maryam Cortez is a 78 year old female with diabetes mellitus presents with a red and swollen left foot 4 days after foot surgery. She underwent left foot surgery for bunion, 2nd and 3rd hammertoe deformity and 3rd metatarsal fracture [address] Fink. Surgery was uncomplicated. She saw him in clinic 2 days later and her foot had some erythema and swelling. Because of this she was started on Keflex for possible cellulitis. She has not had a fever. Per Dr. Fink who evaluated today the erythema and swelling is similar to what he saw on Monday. She has developed a little bit of diarrhea since starting the antibiotics. She has had good peripheral pulses and fairly good sensation in her feet. She has been weight-bearing with a postop boot on her foot. April 20: Patient reports feeling fine except still having pain in the 3rd toe/3rd metatarsal. She describes it as a lancinating pain for which she is still taking oxycodone. Otherwise she has no concerns. She is feeling well. Not having a fever. Yesterday she had diarrhea but since then she has had 2 formed stools. No abdominal pain. April 21: Patient reports she had a rough night. She woke in the middle the night with what she thinks was a bad dream. Since then she has been very anxious about her foot. It is feeling a bit short of breath as well. She thinks this is just because she is feeling anxious. She has been up walking in the hallway and doing that fairly well. No fever. Exam Narrative: Exam Narrative: She is alert and appears in no distress. She does appear anxious. Respirations are clear to auscultation. No wheezing rales or rhonchi. Cardiovascular: S1, S2, regular rate and rhythm. Abdomen: Bowel sounds active. Abdomen is soft without tenderness or mass. Foot is unwrapped and appears modestly better compared to yesterday with decreased erythema and swelling. Const: Vital Signs, click to edit/add: Vital Signs - 24 hr 04/20/24 15:00 04/20/24 15:00 04/20/24 19:00 Temperature 98.0 F 98.4 F Pulse Rate [Left P ulse Oximeter] 73 73 86 Respiratory Rate 18 18 16 Blood Pressure [Ri ght Arm] 155/69 H 172/86 H Pulse Oximetry 98 98 Oxygen Delivery Me thod Room Air Room Air 04/20/24 23:00 04/20/24 23:00 04/21/24 03:00 Temperature 98.6 F 98.7 F Pulse Rate [Left P ulse Oximeter] 86 82 120 H Respiratory Rate 16 18 20 Blood Pressure [Ri ght Arm] 149/75 H 130/88 Pulse Oximetry 95 94 Oxygen Delivery Me thod Room Air Room Air 04/21/24 09:00 04/21/24 09:12 04/21/24 11:27 Temperature 98.2 F 98.4 F Pulse Rate [Left P ulse Oximeter] 84 84 73 Respiratory Rate 18 18 20 Blood Pressure [Ri ght Arm] 146/68 H 153/79 H Pulse Oximetry 95 93 Oxygen Delivery Me thod Room Air Room Air Documenting provider has reviewed patient's vital signs: yes Labs Labs: Laboratory Results - last 24 hr 04/21/24 04/21/24 05:50 09:22 WBC 6.27 RBC 3.08 L Hgb 9.8 L Hct 29.3 L MCV 95 MCH 32 MCHC 33 RDW Coeff of Don 12.2 Plt Count 240 Neut % (Auto) 78.5 H Lymph % (Auto) 8.9 L [place] % (Auto) 10.2 Eos % (Auto) 1.9 Baso % (Auto) 0.3 Neut # (Auto) 4.90 Lymph # (Auto) 0.60 L [place] # (Auto) 0.60 Eos # (Auto) 0.12 Baso # (Auto) 0.02 Abs Immat Gran (auto) 0.01 Imm/Tot Granulo (auto) 0.2 D-Dimer Quant (PE/DVT) 2.27 H Sodium 130 L Potassium 3.7 Chloride 101 Carbon Dioxide 22 Anion Gap 7 BUN 18 Creatinine 0.6 Estimated Creat Clear 43.07 Estimated GFR 93 Glucose 161 H Calcium 8.3 L C-Reactive Protein 6.2 H Lab Acknowledgement Test Added
[2024-04-21] MEDS: ATORVASTATIN 10 MG TABLET PO (18:05)
--- NOTE | 2024-04-21 20:20 | CRLHL7_ITS ---
For Patients: As a result of the Century Cures Act, medical imaging exams and procedure reports are released immediately into your electronic medical record. You may view this report before your referring provider. If you have questions, please contact your health care provider. Indication: dyspnea, hypoxia. Technique: Chest 1 view. Comparison: Chest radiograph dated 09/20/2023. Findings/Impression: Cardiovascular and mediastinum: Heart size and vasculature are normal in caliber and appearance. Lungs and pleural space: New diffuse interstitial prominence with small bilateral pleural effusions, suggestive of moderate pulmonary edema. No pneumothorax. Bones and soft tissues: No acute findings. Partially visualized left proximal humerus and vertebral fixation hardware. Dictated by Dax Patel MD @ 04/21/2024 9:19:58 PM (Electronically Signed)
[2024-04-21] MEDS: ALBUTEROL SULFATE 2.5 MG/3 ML VIAL.NEB NEB (20:29)
[2024-04-21] MEDS: SODIUM CHLORIDE 0.9 % (FLUSH) 10 ML SYRINGE 5 ML IVF (20:30)
[2024-04-21 20:36] LABS: HCO3 VBG 23 mmol/L (21-28); PCO2 VBG 34 mmHG (40-50); PO2 VBG 40.1 mmHG (25-47); pH VBG 7.448 (7.32-7.43)
[2024-04-21] MEDS: FUROSEMIDE 10 MG/ML inj 40 MG IVP (20:37)
[2024-04-21 20:57] LABS: Chloride* 98 mmol/L (96-114); Potassium* 3.6 mmol/L (3.6-5.1); Sodium* 131 mmol/L (135-149)
[2024-04-21 20:59] LABS: Creatinine* 0.6 mg/dL (0.5-1.5); Est. Creatinine Clearance* 43.07; Estimated Glomerular Filt Rate 93 ml/min
[2024-04-21 21:00] LABS: Anion Gap 12 mEq/L (7-15); Blood Urea Nitrogen* 17 mg/dL (7-30); Carbon Dioxide* 21 mmol/L (20-32); Glucose* 190 mg/dL (60-115)
[2024-04-21 21:13] LABS: Troponin I* < 0.01 ng/mL (0.01-0.04)
--- NOTE | 2024-04-21 21:25 | P.IMPN_ITS ---
Progress Note: A&P Assessment and plan (1) Acute respiratory distress: Problem details: - suspect this is multifactorial including anxiety, volume overload, and asthma. I think less likely cause is aortic stenosis although I think she would still benefit from outpatient echocardiogram. Status: Acute (2) Volume overload: Problem details: - I suspect this is the main cause of her acute shortness of breath. Exam and chest x-ray are consistent with pulmonary edema. I have given her 1 dose of IV Lasix with good effect. Status: Acute (3) Aortic stenosis: Problem details: History of aortic sclerosis but clinically I suspect she has developed some aortic stenosis. Consider outpatient echocardiogram. Status: Acute (4) Anxiety: Problem details: Patient admits to significant anxiety about her health care. She is currently feeling like she is able to manage her symptoms Status: Acute (5) Asthma: Problem details: Adult onset, dxed , now well-controlled with control of GERD Status: Acute (6) Cellulitis of foot, left: Problem details: Postop redness and swelling following left foot surgery on 04/15/2024. Initiate Zosyn and vancomycin pending clinical course. Consulting with Dr. Fink Status: Acute Subjective Time Seen by Provider: 20:10 Date Seen: 04/21/24 Interval history: Maryam felt suddenly more dyspneic at 8pm. She denied CP. She c/o frequent dry cough as well. After obtaining the chest x-ray, EKG, and giving a dose of IV Lasix and albuterol nebulizer, the patient is much improved and already diuresing. She told me that she feels much better and her lung exam has cleared. Exam Narrative: Exam Narrative: General: Moderate respiratory distress. Anxious. Awake, alert, oriented x3. No pallor. No jaundice. Frequent, tight, dry cough. Oropharynx: Clear. Mucous membranes moist. Cardiovascular: Tachycardic, regular. Respiratory: Bibasilar crackles, expiratory wheezes. Abdomen: Bowel sounds present. Soft, nondistended, nontender. Extremities: 1+ right ankle edema, left foot is wrapped, 1 + edema. Const: Vital Signs, click to edit/add: Vital Signs - 24 hr 04/20/24 23:00 04/20/24 23:00 04/21/24 03:00 Temperature 98.6 F 98.7 F Pulse Rate [Left P ulse Oximeter] 86 82 120 H Respiratory Rate 16 18 20 Blood Pressure [Ri ght Arm] 149/75 H 130/88 Pulse Oximetry 95 94 Oxygen Delivery Me thod Room Air Room Air 04/21/24 09:00 04/21/24 09:12 04/21/24 11:27 Temperature 98.2 F 98.4 F Pulse Rate [Left P ulse Oximeter] 84 84 73 Respiratory Rate 18 18 20 Blood Pressure [Ri ght Arm] 146/68 H 153/79 H Pulse Oximetry 95 93 Oxygen Delivery Me thod Room Air Room Air 04/21/24 16:02 Temperature 98 F Pulse Rate [Left P ulse Oximeter] 73 Respiratory Rate 18 Blood Pressure [Ri ght Arm] 156/76 H Pulse Oximetry 97 Oxygen Delivery Me thod Room Air Labs Labs: Laboratory Results - last 24 hr 04/21/24 04/21/24 04/21/24 05:50 09:22 20:32 WBC 6.27 RBC 3.08 L Hgb 9.8 L Hct 29.3 L MCV 95 MCH 32 MCHC 33 RDW Coeff of Don 12.2 Plt Count 240 Neut % (Auto) 78.5 H Lymph % (Auto) 8.9 L [place] % (Auto) 10.2 Eos % (Auto) 1.9 Baso % (Auto) 0.3 Neut # (Auto) 4.90 Lymph # (Auto) 0.60 L [place] # (Auto) 0.60 Eos # (Auto) 0.12 Baso # (Auto) 0.02 Abs Immat Gran (auto) 0.01 Imm/Tot Granulo (auto) 0.2 D-Dimer Quant (PE/DVT) 2.27 H VBG pH 7.448 H VBG pCO2 34 L VBG pO2 40.1 VBG HCO3 23 Sodium 130 L 131 L Potassium 3.7 3.6 Chloride 101 98 Carbon Dioxide 22 21 Anion Gap 7 12 BUN 18 17 Creatinine 0.6 0.6 Estimated Creat Clear 43.07 43.07 Estimated GFR 93 93 Glucose 161 H 190 H Calcium 8.3 L 9.0 Troponin I < 0.01 L C-Reactive Protein 6.2 H Lab Acknowledgement Test Added EKG: Sinus tachycardia, 103 beats per minute. Nonspecific ST and T-wave abnormality. Ordering Physician: Mary Brady M.D. Date of Service: 04/21/24 Procedure(s): XR chest 1V portable Accession Number(s): [id number] cc: Lina Meléndez M.D.; Mary Brady M.D.~ For Patients: As a result of the Cures Act, medical imaging exams and procedure reports are released immediately into your electronic medical record. You may view this report before your referring provider. If you have questions, please contact your health care provider. Indication: dyspnea, hypoxia. Technique: Chest 1 view. Comparison: Chest radiograph dated 09/20/2023. Findings/Impression: Cardiovascular and mediastinum: Heart size and vasculature are normal in caliber and appearance. Lungs and pleural space: New diffuse interstitial prominence with small bilateral pleural effusions, suggestive of moderate pulmonary edema. No pneumothorax. Bones and soft tissues: No acute findings. Partially visualized left proximal humerus and vertebral fixation hardware. Dictated by Dax Patel MD @ 04/21/2024 9:19:58 PM (Electronically Signed)
[2024-04-22] MEDS: INSULIN ASPART 100 UNIT/ML SUBCUT ×4 (00:09→13:03)
[2024-04-22] MEDS: PIPERACILLIN/TAZOBACTAM 3.375 GM in 0.9 % SODIUM CHLORIDE Mini-bag 100 ML IVPB ×3 (02:49→14:49)
[2024-04-22 03:00] VITALS: BP 137/69; PULSE 75; RESP 20; TEMP 36.7; O2SAT 95
--- NOTE | 2024-04-22 05:19 | PC.NURSE ---
SHIFT NOTE -: Pt A&O. Denies CP, N/V. Around 8pm pt reported sudden onset of SOB, updated: pt given Lasix and Albuterol neb, EKG obtained and pt placed on tele and 2L O2 (prior to oxygen, pt was 87% on room air). Pt reported good relief from Lasix, up frequently to use BSC. Pt given PRN Oxycodone x1 and Tylenol for foot pain, reported good relief. Pt on CPAP overnight with 2L oxygen bled in with oxygen saturations in the low 90's. Pt reported feeling much better this AM.
[2024-04-22 06:45] LABS: Basophils Absolute Auto 0.03 K/uL (0.00-0.30); Basophils Percent Auto 0.5 % (0.0-3.0); Eosinophils Absolute Auto 0.12 K/uL (0.00-0.50); Eosinophils Percent Auto 2.2 % (0.0-7.0); Hematocrit 26.7 % (33.0-51.0); Hemoglobin* 8.9 gm/dL (12.0-16.0); Immature Granulocytes Abs Auto 0.01 K/uL (0.00-0.30); Immature Granulocytes Pct Auto 0.2 %; Lymphocytes Percent Auto 10.2 % (20-44); Mean Corpuscular HGB Conc 33 gm/dL (32-36); Mean Corpuscular Hemoglobin 32 pg (26-34); Mean Corpuscular Volume 95 fL (80-100); Monocytes Percent Auto 11.5 % (0.0-11.0); Neutrophils Percent Auto 75.4 % (42.0-72.0); Platelet Count* 220 K/uL (140-440); RDW Coefficient of Variation % 12.3 % (11.5-15.5)
[2024-04-22 06:55] LABS: Chloride* 98 mmol/L (96-114); Potassium* 3.2 mmol/L (3.6-5.1); Sodium* 131 mmol/L (135-149)
[2024-04-22 06:58] LABS: Anion Gap 8 mEq/L (7-15); Blood Urea Nitrogen* 18 mg/dL (7-30); Carbon Dioxide* 25 mmol/L (20-32); Creatinine* 0.7 mg/dL (0.5-1.5); Est. Creatinine Clearance* 43.07; Estimated Glomerular Filt Rate 90 ml/min; Glucose* 153 mg/dL (60-115)
[2024-04-22 06:59] LABS: Calcium* 8.1 mg/dL (8.4-10.6)
[2024-04-22 07:02] LABS: C Reactive Protein* 7.3 mg/dL (0.5-1.0)
[2024-04-22 07:24] VITALS: PULSE 80
[2024-04-22 07:25] LABS: Slide Review Reflex No
[2024-04-22 08:07] VITALS: BP 117/81; PULSE 84; RESP 20; TEMP 36.8; O2SAT 94
[2024-04-22] MEDS: TORSEMIDE 5 MG TABLET 20 MG PO (08:10)
[2024-04-22] MEDS: POTASSIUM BICARB 25 MEQ EFFERVESCENT TAB 50 MEQ PO (08:11)
[2024-04-22] MEDS: VANCOMYCIN 1.25 GM/250 ML 1.25 GM/250 ML PIGGYBACK IVPB (09:07)
[2024-04-22] MEDS: carvediloL 6.25 MG TABLET PO (09:10)
[2024-04-22] MEDS: SODIUM CHLORIDE 0.9 % (FLUSH) 10 ML SYRINGE 5 ML IVF (09:10)
[2024-04-22] MEDS: GABAPENTIN 300 MG CAPSULE PO (09:10)
[2024-04-22] MEDS: CLOPIDOGREL 75 MG TABLET PO (09:10)
[2024-04-22] MEDS: LOSARTAN POTASSIUM 50 MG TABLET PO (09:10)
[2024-04-22] MEDS: FOLIC ACID 1 MG TABLET PO (09:10)
[2024-04-22] MEDS: OMEPRAZOLE 20 MG CAPSULE DR PO (09:10)
[2024-04-22] MEDS: MAGNESIUM OXIDE 400 MG TABLET PO (09:10)
[2024-04-22] MEDS: OXYCODONE 5 MG TABLET PO (09:10)
[2024-04-22] MEDS: INSULIN GLARGINE,HUM.REC.ANLOG 100 UNIT/ML INSULN.PEN 18 UNIT SUBCUT (09:11)
--- NOTE | 2024-04-22 10:13 | NUTR.NU ---
RDN with diet education related to diabetic diet order. Patient admitted for respiratory distress and volume overload. 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 Past medical history includes but not limited to GERD, hypertension, Osteoporosis, and diabetes mellitus type 2. Current weight 169lb 9oz; height 5ft 5in; BMI 28.2 kg/m2. Per weight history, weight has been stable recently. Current diet is diabetic with 1500 mL fluid restriction. Meal intakes since admit have been 75%+ since admit. RDN visited with patient whom reports she follows a diabetic diet at home, she counts carbohydrates. RDN offered diet education for diabetes, however patient declined at this time. RDN encouraged patient to let staff know if she has any questions or concerns.
[2024-04-22 12:58] VITALS: BP 161/84; PULSE 89; RESP 20; TEMP 37.2; O2SAT 94
--- NOTE | 2024-04-22 15:01 | P.DS_ITS ---
DS: Providers Provider Date Seen: 04/22/24 Date of admission: 04/19/24 19:21 Primary care physician: Lina Meléndez MD Admitting Clinician: Coleman Gonzalez MD Attending Physician on discharge: Coleman Gonzalez MD Date of Discharge: 04/22/24 DS: Diagnosis Discharge Diagnosis (1) Cellulitis of foot, left: Status: Acute Problem details: Postop redness and swelling following left foot surgery on 04/15/2024. Dr. Fink consulting. Treated with vancomycin and Zosyn. Very slowly improving. Discharge on doxycycline and Augmentin. Follow-up with Dr. Richardson, cnc cutting operator in [place], this week (2) Heart failure with preserved ejection fraction: Status: Acute (3) Essential hypertension: Status: Acute Problem details: Due to heart failure, diabetes will add torsemide 20 mg with potassium 20 mEq and losartan 50 mg daily with close follow-up as an outpatient to recheck heart failure and electrolytes. Echocardiogram shows mild aortic stenosis, mitral stenosis, pulmonary hypertension and preserved ejection fraction DS: Summary Hospital Course Hospital Course: Maryam Cortez is a 78 year old female with diabetes mellitus presents with a red and swollen left foot 4 days after foot surgery. She underwent left foot surgery for bunion, 2nd and 3rd hammertoe deformity and 3rd metatarsal fracture [address] Fink. Surgery was uncomplicated. She saw him in clinic 2 days later and her foot had some erythema and swelling. Because of this she was started on Keflex for possible cellulitis. She has not had a fever. Per Dr. Fink who evaluated today the erythema and swelling is similar to what he saw on Monday. She has developed a little bit of diarrhea since starting the antibiotics. She has had good peripheral pulses and fairly good sensation in her feet. She has been weight-bearing with a postop boot on her foot. During her hospital stay she was treated with piperacillin tazobactam and vancomycin. She had very slow improvement in the erythema and the edema over her forefoot. Examination did not suggest the development of an abscess. She was seen by Dr. Fink the 1st 2 days in the hospital and he recommended medical management with close follow-up with Podiatry. During her hospital stay she had gradual worsening of dyspnea with exertion. In retrospect she reports that this has been gradually coming on since this summer but getting worse in the hospital. Evaluation showed that she had heart failure with pulmonary edema. She was treated with diuresis with IV furosemide followed by oral torsemide. She feels quite a bit better with that though still reports some dyspnea with exertion. Echocardiogram was obtained and showed mild aortic stenosis and also mitral stenosis. She has no history of rheumatic heart disease. Also no history of AFib. Discussion today around ongoing plan of care, continue in hospital for management of heart failure and foot cellulitis versus outpatient follow-up. Patient elects to have outpatient follow-up and discharged today. She will get follow-up this week with Dr. Meléndez for her heart failure and Dr. Richardson, cnc cutting operator in [place], for her foot cellulitis Status at Discharge Overall status at discharge: patient is progressing back to baseline Time Spent with Patient Time attestation: Total time spent providing and/or coordinating discharge services: 50 minutes Exam Narrative: Exam Narrative: She is alert and appears in no distress. Breathing room air. Respirations are clear to auscultation without wheezing rales or rhonchi. Cardiovascular: S1, S2, regular rate and rhythm. 2/6 systolic ejection murmur. Abdomen is soft without tenderness. Foot is examined and is unchanged compared to yesterday with erythema and edema over the forefoot and primarily the 2nd toe. Const: Vital Signs, click to edit/add: Vital Signs - 24 hr 04/21/24 16:02 04/21/24 19:00 04/21/24 20:00 Temperature 98 F 99.2 F Pulse Rate Pulse Rate [Left P ulse Oximeter] 73 96 Respiratory Rate 18 22 Blood Pressure [Ri ght Arm] 156/76 H 178/77 H Pulse Oximetry 97 94 87 L Oxygen Delivery Me thod Room Air Room Air Room Air Oxygen Flow Rate 04/21/24 20:02 04/21/24 23:00 04/21/24 23:00 Temperature 99.8 F H Pulse Rate Pulse Rate [Left P ulse Oximeter] 84 84 Respiratory Rate 22 22 Blood Pressure [Ri ght Arm] 153/75 H Pulse Oximetry 92 93 Oxygen Delivery Me thod Nasal Cannula CPAP Oxygen Flow Rate 2 2 04/21/24 23:00 04/22/24 03:00 04/22/24 07:24 Temperature 98.1 F Pulse Rate 71 80 Pulse Rate [Left P ulse Oximeter] 75 Respiratory Rate 20 Blood Pressure [Ri ght Arm] 137/69 Pulse Oximetry 95 Oxygen Delivery Me thod CPAP Oxygen Flow Rate 2 04/22/24 08:07 04/22/24 12:58 Temperature 98.3 F 98.9 F Pulse Rate Pulse Rate [Left P ulse Oximeter] 84 89 Respiratory Rate 20 20 Blood Pressure [Ri ght Arm] 117/81 161/84 H Pulse Oximetry 94 94 Oxygen Delivery Me thod Room Air Room Air Oxygen Flow Rate Documenting provider has reviewed patient's vital signs: yes DS: Data Data Completed and Pending Labs on day of discharge: Labs from last 24 hours 04/22/24 04/22/24 04/21/24 07:03 06:08 20:32 WBC 5.50 RBC 2.80 L Hgb 8.9 L Hct 26.7 L MCV 95 MCH 32 MCHC 33 RDW Coeff of Don 12.3 Plt Count 220 Neut % (Auto) 75.4 H Lymph % (Auto) 10.2 L [place] % (Auto) 11.5 H Eos % (Auto) 2.2 Baso % (Auto) 0.5 Neut # (Auto) 4.10 Lymph # (Auto) 0.60 L [place] # (Auto) 0.60 Eos # (Auto) 0.12 Baso # (Auto) 0.03 Abs Immat Gran (auto) 0.01 Imm/Tot Granulo (auto) 0.2 VBG pH 7.448 H VBG pCO2 34 L VBG pO2 40.1 VBG HCO3 23 Sodium 131 L 131 L Potassium 3.2 L 3.6 Chloride 98 98 Carbon Dioxide 25 21 Anion Gap 8 12 BUN 18 17 Creatinine 0.7 0.6 Estimated Creat Clear 43.07 43.07 Estimated GFR 90 93 Glucose 153 H 190 H Calcium 8.1 L 9.0 Troponin I < 0.01 L C-Reactive Protein 7.3 H NT-Pro-B Natriuret Pep Pending Lab Acknowledgement Test Added Preliminary micro results at discharge 04/19/24 16:10 Blood Culture - Preliminary Blood No growth. Imaging Chest x-ray: Radiologist's impression: Indication: dyspnea, hypoxia. Technique: Chest 1 view. Comparison: Chest radiograph dated 09/20/2023. Findings/Impression: Cardiovascular and mediastinum: Heart size and vasculature are normal in caliber and appearance. Lungs and pleural space: New diffuse interstitial prominence with small bilateral pleural effusions, suggestive of moderate pulmonary edema. No pneumothorax. Bones and soft tissues: No acute findings. Partially visualized left proximal humerus and vertebral fixation hardware. Discharge Plan Discharge Disposition: Home, Self-Care Date of Admission: 04/19/24 19:21 Attending Provider on Discharge: Coleman Gonzalez Primary Care Provider: Lina Meléndez Condition: Improved Anticipated Discharge Date/Time: 04/22/24 14:50 Discharge Medications: New doxycycline hyclate 100 mg tablet 100 mg PO BID Qty: 20 0RF amoxicillin-pot clavulanate 875-125 mg tablet 1 tab PO Q12H Qty: 20 0RF torsemide 20 mg tablet 20 mg PO DAILY Qty: 30 2RF losartan 50 mg tablet 50 mg PO DAILY Qty: 30 0RF potassium chloride 10 mEq capsule, extended release 20 meq PO DAILY Qty: 60 0RF Continued clobetasol 0.05 % ointment 1 applic topical .twice weekly 360 Days Qty: 30 1RF acetaminophen [Tylenol Extra Strength] 500 mg tablet 1,000 mg PO Q6H PRN folic acid 1 mg tablet 1 mg PO DAILY timolol maleate 0.5 % drops 1 drp ophthalmic (eye) HS Qty: 5 2RF Rx Instructions: Apply to fingertips at bedtime. minoxidil 2.5 mg tablet 2.5 mg PO DAILY atorvastatin 10 mg tablet 10 mg PO HS Glucagon Emergency Kit (human) 1 mg recon soln 1 mg IM DAILY oxycodone 5 mg tablet 5 - 10 mg PO Q4H PRN (Reason: pain) calcium carbonate-vitamin D3 [Calcium 500 + D] 500 mg-10 mcg (400 unit) tablet 1 tab PO DAILY insulin glargine 100 unit/mL (3 mL) insulin pen 16 - 18 unit SUBCUT QAM clindamycin phosphate 1 % gel, once daily 1 applic topical DAILY carvedilol 6.25 mg tablet 6.25 mg PO BID Qty: 180 0RF magnesium oxide 400 mg (241.3 mg magnesium) tablet 400 mg PO BID gabapentin 300 mg capsule 300 mg PO BID Qty: 180 2RF (DME) pen needle, diabetic [BD Ultra-Fine Mini Pen Needle] 31 gauge x 3/16 needle See Rx Instructions .ROUTE .COMPLEX Qty: 300 1RF Dose Instruction: USE TO INJECT INSULIN UP TO 6 TIMES DAILY. Rx Instructions: USE TO INJECT INSULIN UP TO 6 TIMES DAILY. clopidogrel 75 mg tablet 75 mg PO DAILY Qty: 90 2RF eszopiclone [Lunesta] 2 mg tablet 2 mg PO QHS Qty: 90 3RF Qvar RediHaler 80 mcg/actuation HFA aerosol breath activated 2 inh PO BID Qty: 10.6 8RF omeprazole 20 mg capsule,delayed release(DR/EC) 20 mg PO DAILY Qty: 90 3RF insulin aspart U-100 [Novolog FlexPen U-100 Insulin] 100 unit/mL (3 mL) insulin pen 15 unit subcut TIDWM Qty: 15 7RF Patient Comments: sliding scale base on glucose reading Rx Instructions: based on your scale fluticasone propionate [Allergy Relief (fluticasone)] 50 mcg/actuation spray,suspension 2 spray intranasal BID Qty: 16 9RF Rx Instructions: administer into each nostril albuterol sulfate 90 mcg/actuation HFA aerosol inhaler 2 - 4 puff inhalation Q4-6H PRN (Reason: shortness of breath or wheezing) Qty: 6.7 5RF (DME) FreeStyle Daja 14 Day Sensor Kit See Rx Instructions .Route Qty: 2 5RF Rx Instructions: As directed Discontinued nifedipine [Procardia XL] 30 mg tablet extended release 24hr 30 mg PO DAILY cephalexin 500 mg capsule 500 mg PO TID Discharge Orders: Discharge Order (Routine); Ordered 04/22/24 Ordered By: Coleman Gonzalez Additional Instructions: Call Dr. Richardson, cnc cutting operator in [place], for an appointment this week. Follow Up Appointments: Lina Meléndez MD [Primary Care Provider] - (Follow-up in 3-4 days. Recheck basic metabolic panel in 3-4 days) Forms: [facility] Info Instructions
--- NOTE | 2024-04-22 17:56 | PC.NURSE ---
The patient discharged home with her . All belongings were accounted for. Educated on abx use and probiotics during this time as well. All paperwork was reviewed. Lesly VALIENTE BSN
[2024-04-22 18:33] LABS: NT Pro B Type NatriureticPept* 2260 pg/mL
== END 2024-04-22 17:00 | disposition home or self-care (01) | DRG 862 ==
LOC: ED 17:34 → MEDSURG 18:10
PROVIDERS: Family Medicine; Admitting Provider Family Medicine; Emergency Provider Emergency Medicine; PCP Internal Medicine; Visit Provider Family Medicine
DX: T81.40XA Infection following a procedure, unspecified, initial encounter (principal); I50.31 Acute diastolic (congestive) heart failure; L03.116 Cellulitis of left lower limb; R06.03 Acute respiratory distress; E11.9 Type 2 diabetes mellitus without complications; Z79.4 Long term (current) use of insulin; F41.9 Anxiety disorder, unspecified; Z79.84 Long term (current) use of oral hypoglycemic drugs; I11.0 Hypertensive heart disease with heart failure; I27.20 Pulmonary hypertension, unspecified; G47.33 Obstructive sleep apnea (adult) (pediatric); J45.909 Unspecified asthma, uncomplicated; Z79.01 Long term (current) use of anticoagulants; Z85.3 Personal history of malignant neoplasm of breast; Z86.73 Personal history of transient ischemic attack (TIA), and cerebral infarction without residual deficits; I08.0 Rheumatic disorders of both mitral and aortic valves; R19.7 Diarrhea, unspecified
CPT/HCPCS: 36415; 71045; 73630; 80048; 82803; 82962; 83605; 83880; 84484; 85025; 85379; 86140; 87040; 87493; 93005; 93306; 93971; 94640; 96374; 99284; 99285; A9270; J1940; J2543; J3372; J3489

== ENCOUNTER 2024-04-24 14:05 | Outpatient (CLI) | payer MEDICARE, SELFPAY ==
--- OUTSIDE RECORDS SUMMARY | 2024-04-25 08:26 | XMS_ITS | Clinical Summary ---
Author Organization [facility] [place] Address [address] [place] [address] Care Team Providers Care Equipment Analyst Name Role Phone Lina Meléndez MD Primary Care Provider [phone] Source Comments You are receiving this document as you are listed as the primary care provider,follow-up provider, or the patient has been referred to you for consultation.This is in compliance with the Medicare and[facility] Cent[facility]aid EHR Incentive Program,which states Providers who transition their patient to another setting of careor provider of care or refers their patient to another provider of care shouldprovide summary care record for each transition of care or referral. [email or web address] Allergies Active Allergy Reactions Criticality Noted Date [...] (07/10/2019): Added automatically from request for surgery [id number] TC (obstructive sleep apnea) 11/05/2018 Arthritis of [...] Comments Blood Pressure 147/63 07/17/2019 2:34 PM OYSTER UNLOADER Pulse 75 07/17/2019 2:34 PM OYSTER UNLOADER Temperature 36.7 ??C (98.1 ??F) 07/17/2019 2:34 PM CS T Respiratory Rate 18 07/17/2019 2:34 PM OYSTER UNLOADER Oxygen Saturation 99% 07/17/2019 2:34 PM OYSTER UNLOADER Inhaled Oxygen Concentration - - Weight 75 kg (165 lb 6.4 oz) 07/16/2019 10:19 AM OYSTER UNLOADER Height 165.1 cm (5' 5) 07/16/2019 10:19 AM OYSTER UNLOADER Body Mass Index 27.52 07/16/2019 10:19 AM OYSTER UNLOADER Plan of Treatment Health Maintenance Due Date [...] this topic Medical Devices Implanted Type Area Pattern Grader Cutter Device Identifier Shelf Expiration Date Model / Serial / Lot Chip Anita Brunner 30cc - [id number] Implanted:Qty : 1 on 07/16/2019 by Edelmira Rodriguez MD at [facility] DEVICE Left: SHOULDER Medtronic - [employer] 08/14/2023 [id number] / / [id number] Scr Star Lk Sftp 3.5x48 - [id number] Implanted:Qty : 1 on 07/16/2019 by Edelmira Rodriguez MD at [facility] DEVICE Left: HUMERUS MIDSHAFT DePuy Synthes - Trauma 212.120 / / Scr Cj Sftp Ss 3.5x32 F-Thrd - [id number] Implanted:Qty : 1 on 07/16/2019 by Edelmira Rodriguez MD at [facility] DEVICE Left: HUMERUS MIDSHAFT DePuy Synthes - Trauma 204.832 / / [id number] Plt Prox Hum 3.5x90 6h/3h - [id number] Implanted:Qty : 1 on 07/16/2019 by Edelmira Rodriguez MD at [facility] DEVICE Left: SHOULDER DePuy Synthes - Trauma 241.901 / / [id number] Scr Cj Sftp Ss 3.5x26 F-Thrd - [id number] Implanted:Qty : 1 on 07/16/2019 by Edelmira Rodriguez MD at [facility] DEVICE Left: HUMERUS MIDSHAFT DePuy Synthes - Trauma 204.826 / / Description:3.5mm 26mm Scr Cj Sftp Ss 3.5x28 F-Thrd - [id number] Implanted:Qty : 1 on 07/16/2019 by Edelmira Rodriguez MD at [facility] DEVICE Left: HUMERUS MIDSHAFT DePuy Synthes - Trauma 204.828 / / Scr Star Lk Sftp 3.5x34 - [id number] Implanted:Qty : 1 on 07/16/2019 by Edelmira Rodriguez MD at [facility] DEVICE Left: HUMERUS MIDSHAFT DePuy Synthes - Trauma 212.113 / / Scr Star Lk Sftp 3.5x36 - [id number] Implanted:Qty : 2 on 07/16/2019 by Edelmira Rodriguez MD at [facility] DEVICE Left: HUMERUS MIDSHAFT DePuy Synthes - Trauma 212.115 / / Scr Star Lk Sftp 3.5x40 - [id number] Implanted:Qty : 2 on 07/16/2019 by Edelmira Rodriguez MD at [facility] DEVICE Left: HUMERUS MIDSHAFT De[employer]uy Synthes - Trauma 212.117 / / Scr Star Lk Sftp 3.5x45 - [id number] Implanted:Qty : 1 on 07/16/2019 by Edelmira Rodriguez MD at [facility] DEVICE Left: HUMERUS MIDSHAFT DePuy Synthes - Trauma 212.119 / / Scr Star Lk Sftp 3.5x46 - [id number] Implanted:Qty : 1 on 07/16/2019 by Edelmira Rodriguez MD at [facility] DEVICE Left: HUMERUS MIDSHAFT DePuy Synthes - Trauma 212.136 / / Procedures Procedure Name Priority Date/Time Associated Diagnosis Comments BASIC METABOLIC PANEL Routine 07/17/2019 7:49 AM OYSTER UNLOADER HGB A1C Routine 07/17/2019 7:49 AM OYSTER UNLOADER from Last 3 Months or Most Recently Relevant to Health Maintenance Results * (ABNORMAL) Basic Metabolic Panel (IN AM) (07/17/2019 7:49 AM OYSTER UNLOADER) Sodium 131(L) 136 - 145 mmol/L 07/17/2019 8:42 AM [facility]LOAD[facility] Potassium 3.3(L) 3.5 - 5.1 mmol/L 07/17/2019 8:42 AM OYSTER UNLOADER [facility] Chloride 98 98 - 109 mmol/L 07/17/2019 8:42 AM OY[facility] UNLOADER [facility] CO2 25 20 - 29 mmol/L 07/17/2019 8:42 AM OYSTER UNLOADER [facility] Anion Gap 8 7 - 16 mmol/L 07/17/2019 8:42 AM OYSTER UNLOADER [facility] Calcium 8.4 8.4 - 10.4 mg/dL 07/17/2019 8:42 AM OY[facility] UNLOADER [facility] BUN 16 7 - 26 mg/dL 07/17/2019 8:42 AM OY[facility] UNLOADER [facility] Creatinine 0.65 0.55 - 1.02 mg/dL 07/17/2019 8:42 AM OY[facility] UNLOADER [facility] GFR, Estimated >60 >60 mL/min/1.7 3m2 07/17/2019 8:42 AM OYSTER UNLOADER [facility] GFR, Est If >60 >60 mL/min/1.7 3m2 07/17/2019 8:42 AM OYSTER UNLOADER [facility] Glucose 187(H) 70 - 100 mg/dL 07/17/2019 8:42 AM OYSTER UNLOADER [facility] Comment:The given reference range is for the fasting state. Non-fasting reference range for glucose is 70 - 180 mg/dL. Blood Venipuncture / Unknown 07/17/2019 7:49 AM OYSTER UNLOADER 07/17/2019 7:56 AM OYSTER UNLOADER Larisa Gaines MD LAB_1 Performing Organization Address [facility] de Phone Number [facility] [address] * (ABNORMAL) Hemoglobin A1C Glycosylated (IN AM) (07/17/2019 7:49 AM OYSTER UNLOADER) Hemoglobin A1C 6.7(H) <=5.6 % 07/17/2019 1:39 PM OYSTER UNLOADER [facility] Blood Venipuncture / Unknown 07/17/2019 7:49 AM OYSTER UNLOADER 07/17/2019 7:56 AM OYSTER UNLOADER Narrative [facility] - 07/17/2019 1:39 PM OYSTER UNLOADER For patients not previously diagnosed with diabetes: 5.7-6.4%: Increased risk for diabetes 6.5% and greater: Diagnostic for diabetes For patients diagnosed with diabetes: <8.0%: Goal of therapy for ages 18-75 Clinicians may recommend a higher or lower goal for specific individuals. Larisa Gaines MD LAB_1 Performing Organization Address [facility] Phone Number [facility] [address] from Last 3 Months or Most Recently Relevant to Health Maintenance Advance Directives * Full Code (Latest Code Status on File) Date Activated Date Inactivated Comments 07/16/2019 4:18 PM 07/17/2019 5:47 PM Care Teams Equipment Analyst Relationship Specialty Start Date End Date Lina Meléndez MD [address] [address] PCP - General Internal Medicine 12/20/18
--- OUTSIDE RECORDS SUMMARY | 2024-04-25 08:26 | XMS_ITS | Clinical Summary ---
Author Organization [facility] Address [address] [place] [address] Care Team Providers Care Retail Representative Name Role Phone Unavailable Primary Care Provider Unavailabl e Source Comments Patient records contain information from all sites at [facility]. For routine questions regarding patient records, call [phone] during business hours, M-F 8:00 AM - 5:00 PM Central Time. Record requests for emergency care only can be directed to [phone] at any time.[facility] Allergies Active Allergy Reactions Criticality Noted [...] Documentation Division of Nephrology and Hypertension in [place], [place] [address] [place] [address] Joshua Lopez Jr., D.O. 02/06/2024 3:30 PM CDT External Outreach Division of Nephrology and Hypertension in [place], [place] [address] [place] [address] Joshua Lopez Jr., D.O. Hypertensive Chronic Kidney Disease With Stage 1 Through Stage 4 Chronic Kidney Disease, Or Unspecified Chronic Kidney Disease (Primary Dx); Hyponatremia; Diabetes Mellitus Type 2 (HCC); Malignant Neoplasm Of Breast Upper Outer Quadrant Female Right (HCC) from Last 3 Months Immunizations Name [...] How often do you attend chur or anabaptist services? More than 4 times per year 02/12/2022 Do you belong to any clubs o r organizations such as mandaeism groups, unions, fraternal or [...] medical care, and heating? Somewhat hard 02/12/2022 [facility] - Occupational Stress [...] now)? No 02/12/2022 Nutrition Answer Date Recorded On average, how many serving s of [...] you have received? Professional school degree (e.g., , DDS, DVM, [employer]) 02/12/2022 Comments Unknown Sex and Gender Information Value Date Recorded Sex Assigned at Not on file Legal Sex Female 12:47 PM FILM CUTTER Gender Identity Not on file Sexual Orientation [...] patient's age to complete this topic IPV Vaccines Aged Out No longer eligi ble [...] Most Recently Relevant to Health Maintenance Insurance [facility]
--- OUTSIDE RECORDS SUMMARY | 2024-04-25 08:26 | XMS_ITS ---
Author Organization [facility] Address [address] [place] [address] Care Team Providers Care Retail Bakery Manager Name Role Phone Unavailable Unavailable Unavailable Surgery Details Not on file Complications Check Surgery Details section. Procedure Estimated Blood Loss Check Surgery Details section. Procedure Findings Check Surgery Details section. Procedure Specimens Taken Check Surgery Details section.
--- OUTSIDE RECORDS SUMMARY | 2024-04-25 08:26 | XMS_ITS | Clinical Summary ---
Author Organization [facility] Address [place], [place] [address] Care Team Providers Care Four Slide Machine Operator Name Role Phone Lina Meléndez MD Primary Care Provider [phone] Allergies Active Allergy Reactions Criticality Noted Date [...] bedtime. 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SureBooksE) 2 Active continuous glucose monitor SENSOR KIT (SureBooksE) 2 Active bd insulin pen needle uf mini 31 gauge x 3/16 Use up to 6 times daily 3 Active valACYclovir (VALTREX) 500 mg tablet Take 1,000 mg by mouth one time if needed (Cold sores). 2 Active calcium carbonate-vitamin D3 600 mg-25 mcg (1,000 unit) cap Take by mouth once daily. Active acetaminophen (TYLENOL) [...] May resume on 05/08/23 0 3 Active insulin glargine, U-100, (Lantus U-100 Insulin) 100 unit/mL injectionIndicatio ns:Type 2 diabetes mellitus without complication, with long-term current use of insulin (HC) Inject 12 units subcutaneous once daily. 10 mL 3 Active CPAPIndications:OS A (obstructive sleep apnea) CPAP machine for home use at pressure 4.6-8.6cmw, nasal mask x1/3month with nasal pillows x 2/mo 1 Each 3 Active durable medical equipment (DME)Indications:C losed displaced fracture of third metatarsal bone of left foot, initial encounter SQUARED TOE POST OP SHOE, MEDIUM, REF: [phone] 1 Each 4 Active nystatin (MYCOSTATIN) 100,000 unit/mL suspensionIndicati ons:Thrush, oral Swish and swallow 5 mL (500,000 units) by mouth four times daily. 473 mL 4 Active oxyCODONE (ROXICODONE) 5 mg immediate release tabletIndications: Bunion, left Take 1-2 Tablets (5-10 mg) by mouth every 4 hours if needed for Pain. 20 Tablet 4 Active durable medical equipment (DME)Indications:S /P foot surgery, left,Bunion, left AIR SELECT, SHORT, MEDIUM, REF: [id number] 1 Each 4 Active glucosamine HCl/chondroitin daniel (GLUCOSAMINE-CHOND ROITIN ORAL) Take 1 Capsule by mouth once daily. 04/17/20 24 Discontinue d(*Patient states no longer taking) WalkerIndications: Lumbar radiculopathy Walker with front wheels for home use for 3 months. 1 Each 3 04/17/20 24 Discontinue d(*Patient states no longer taking) amoxicillin-clavul anate (Augmentin) 875-125 mg tabletIndications: skin and skin structure infection Take 1 Tablet by mouth two times daily with meals for 10 days. 20 Tablet 4 04/01/20 24 Discontinue d(*Error/Or anshu entry error) amoxicillin-clavul anate (Augmentin) 875-125 mg tabletIndications: skin and skin structure infection Take 1 Tablet by mouth two times daily with meals for 10 days. 20 Tablet 4 04/11/20 24 oxyCODONE (ROXICODONE) 5 mg immediate release tabletIndications: Bunion, left Take 1-2 Tablets (5-10 mg) by mouth every 4 hours if needed for Pain. 20 Tablet 4 04/17/20 24 Discontinue d(Reorder (E-cancel not sent)) cephalexin (KEFLEX) 500 mg capsuleIndications :skin and skin structure infection Take 1 Capsule (500 mg) by mouth three times daily for 7 days. 21 Capsule 4 04/24/20 24 Active Problems Problem Noted Date Diagnosed [...] Encounters Date Type Department Care Team Description 04/24/2024 9:50 AM CDT Ancillary Procedure [facility] [address] [place] [address] Arrived 04/24/2024 9:30 AM CDT Office Visit [facility] [address] [place] [place] [address] Misael Richardson DPM Foot Problem (DOS: 04/15/24 left foot) 04/24/2024 Travel 04/22/2024 3:00 PM CDT Ancillary Procedure [facility] [address] [place] [address] Arrived 04/22/2024 Telephone [facility] [address] [place] [address] Misael Richardson DPM Appointment 04/19/2024 Orders Only [facility] Scanner 1 scan: (1-Ord) [facility], FOOT LT MIN 3V, 04/19/2024 04/19/2024 Telephone [facility] [address] [place] [address] Rex Fink DPM Questions 04/19/2024 Nurse Triage [facility] [address] [place] [address] Rex Fink DPMaria De Jesus Post-op Pain/problem 04/17/2024 3:30 PM CDT Ancillary Procedure [facility] [address] [place] [address] 04/17/2024 3:15 PM CDT Office Visit [facility] [address] [place] [address] Rex Fink DPM Post-op (Left foot, DOS 04/15/24, initial post op) 04/16/2024 10:20 AM CDT Office Visit [facility] [address] [place] [address] Stevan Nixon MD Musculoskeletal Problem (Consultation for RIGHT Hip Pain ) 04/16/2024 Telephone [facility] [address] [place] [address] Rex Fink DPM Surgical Followup 04/16/2024 Travel 04/15/2024 8:00 AM CDT Office Visit [facility] at [facility] [address] [place] [address] Rex Fink DPM Surgery Scheduled 04/15/2024 Orders Only [facility] Scanner 1 scan: (1-Ord) [facility], XR FOOT LT 2V, 04/15/2024 04/15/2024 Orders Only [facility] Scanner 1 scan: (1-Ord) [place] [facility], [facility] FUSION/HAMMERTOE REPAIR, 04/15/2024 04/12/2024 Travel 04/10/2024 Telephone [facility] [address] [facility] [address] [place] [address] Gbariela Garcia MD Appointment Request 04/10/2024 Travel 04/08/2024 Telephone [facility] [address] [facility] [address] [place] [address] Lalito Perdue DO SURGERY RESCHEDULE 04/03/2024 3:00 PM CDT Ancillary Procedure [facility] [address] [place] [address] 04/03/2024 2:45 PM CDT Office Visit [facility] [address] [place] [address] Rex Fink DPM Follow Up (Left foot ) 04/03/2024 Travel 04/02/2024 2:20 PM CDT Ancillary Procedure [facility] [address] [facility] [address] [place] [address] 04/02/2024 2:00 PM CDT Office Visit [facility] [address] [facility] [address] [place] [address] Lalito Perdue DO Hip Pain/problem (Right Hip Pain) 04/02/2024 Travel 04/02/2024 Nurse Triage [facility] Centralized Nurse Triage Lina Meléndez MD Lower Back Pain (Severe x 4 to 5 days.) 03/29/2024 Travel 03/28/2024 Travel 03/19/2024 3:45 PM CDT Ancillary Procedure [facility] [address] [place] [address] 03/19/2024 3:30 PM CDT Office Visit [facility] [address] [place] [address] Rex Fink DPM Consult (Left final surgical consult, DOS 04/01/24/Right foot pain since 03/18/24) 03/19/2024 Travel 03/14/2024 3:10 PM CDT Ancillary Procedure [facility] [address] [facility] [address] [place] [address] 03/14/2024 2:45 PM CDT Office Visit [facility] [address] [facility] [address] [place] [address] Lalito Perdue, Knee Pain/problem (Left knee pain) 03/14/2024 Orders Only [facility] [address] [facility] [address] [place] [address] Lalito Perdue, <No scans attached> 03/14/2024 Travel 03/12/2024 Medical Messaging [facility] [address] [place] [address] Rex Fink DPM left foot surgery 03/12/2024 Telephone [facility] [address] [facility] [address] [place] [address] Lalito Perdue DO CALLBACK (scheduling left knee surgery ) 03/07/2024 2:45 PM CDT Office Visit [facility] [address] [facility] [address] [place] [address] Lalito Perdue DO Follow Up (Pain due to total left knee replacement) 03/07/2024 Travel 02/20/2024 3:00 PM CDT Office Visit [facility] [address] [place] [address] Lalito Perdue, Knee Pain/problem (Left Knee Pain S/P Total Knee Arthroplasty, DOS: 2003) 02/20/2024 Travel 02/13/2024 1:45 PM CDT Office Visit [facility] [address] [place] [address] Rex Fink DPM Consult (Left foot pain) 02/13/2024 Travel 01/26/2024 Telephone [facility] [address] [place] [address] Corona Dixon MD Results (Bone Scan) 01/24/2024 Orders Only [facility] [address] [place] [address] Corona Dixon MD 1 scan: (1-Ord) [place], [place] BONE 3 PHASE, 01/18/2024 from Last 3 Months Immunizations Name Administration Dates Next Due Influenza, IIV4 04/20/2016 Social History Tobacco Use Types Packs/Day Years Used Date Smoking Tobacco: Never Passive Smoke Exposure: Never Smokeless Tobacco: Never Tobacco Cessation:Counseling Given: Yes Alcohol Use Standard Drinks/Week Comments No 0 (1 standard drink = 0.6 oz pur e alcohol) Social Connections Answer Date Recorded Do you often feel lonely or isolated from those around you? 0 11/03/2023 Financial Resource Strain Answer Date R ecorded Difficulty of Paying Living Expenses 3 11/03/2023 Difficulty of Paying Living Expenses Not on file 11/03/2023 Food Insecurity Answer Date Recorded Do you worry your food will run out before you are able to buy more? 1 11/03/2023 Transportation Needs Answer Date Record ed Does lack of transportation keep you from medica l appointments? 1 11/03/2023 Does lack of transportation keep you from work, meetings or getting things that you need? 1 11/03/2023 Housing Stability Answer Date Recorded What is your housing situation today? 1 11/03/2023 Sex and Gender Information Value Date Recorded Sex Assigned at Female 08/31/2020 9:33 AM WEBSITE PROGRAMMER Gender Identity Female 08/31/2020 9:33 AM WEBSITE PROGRAMMER Sexual Orientation Straight 08/31/2020 9: 33 AM WEBSITE PROGRAMMER Obstetrics History Para Term AB IAB SAB Ectopic Multiple Livin g Live Births 6 6 5 1 0 0 0 0 0 5 Date Outcome GA Total Labor Labor/2nd/3rd Weight Sex Type Anes PTL Siri A1 A5 Name Clin Term Term Term Term Term Comments 1 , 1 Last Filed Vital Signs Vital Sign Reading Time Taken Comments Blood Pressure 143/61 04/17/2024 3:38 PM CDT Pulse 74 04/17/2024 3:38 PM CDT Temperature 36.7 ??C (98 ??F) 01/01/2024 1:42 PM CDT Respiratory Rate 12 04/24/2024 9:28 AM CDT Oxygen Saturation 99% 04/17/2024 3:38 PM CDT Inhaled Oxygen Concentration - - Weight 73.6 kg (162 lb 3.2 oz) 11/03/2023 2:25 P M CDT Height 165.1 cm (5' 5) 06/07/2023 2:05 PM WEBSITE PROGRAMMER Body Mass Index 26.99 06/07/2023 2:05 PM WEBSITE PROGRAMMER Plan of Treatment Upcoming Encounters Date Type Department Care Team (Late st Contact Info) Description 05/01/2024 1:30 PM WEBSITE PROGRAMMER Office Visit [facility] [address] [place] [address] Rex Fink DPM [address] [place] [address] 05/21/2024 3:15 PM WEBSITE PROGRAMMER Office Visit [facility] [address] [address] [place] [address] [place] [address] 05/29/2024 3:30 PM WEBSITE PROGRAMMER Office Visit [facility] [address] [place] [address] Rex Fink DPM [address] [place] [address] 06/07/2024 7:15 AM WEBSITE PROGRAMMER Hospital Encounter [facility] [address] [place] [address] [place] [address] [place] [address] 06/07/2024 7:15 AM WEBSITE PROGRAMMER - 06/07/2024 11:01 AM WEBSITE PROGRAMMER Surgery [facility] [address] [place] [address] [place] [address] [place] [address] ARTHROPLASTY REVISION KNEE 06/18/2024 11:15 AM WEBSITE PROGRAMMER Office Visit [facility] [address] [facility] [address] [place] [address] [place] [address] [place] [address] 06/27/2024 2:30 PM WEBSITE PROGRAMMER Office Visit [facility] [address] [place] [address] Francesco Huffman MD [address] [place] [address] 08/08/2024 3:15 PM WEBSITE PROGRAMMER Office Visit [facility] [address] [facility] [address] [place] [address] [place] [address] [place] [address] Scheduled Procedures Name Priority Associated Diagnoses Date/Ti me ARTHROPLASTY REVISION KNEE Elective Mechanical loosening of internal left knee prosthetic joint, subsequent encounter H/O total knee replacement, left 06/07/2024 7:15 AM WEBSITE PROGRAMMER Health Maintenance Due Date Last Done Comments [...] history exists Medical Devices Implanted Type Area Grit Blaster Device Identifier Shelf Expiration Date Model / Serial / Lot [id number] 1-4mm 30cc Medtronic Chips Canclls Freeze Dried Implanted:Qty: 1 on 12/06/2016 by Gurinder Mc MD at [facility] Explanted:at [facility] (Quantity not on file) Spine Medtronic Spine/Ortho 08/24/2021 [id number]# / [id number] / Spacer Lmbr [id number] [place] Convex Stra Plif - [id number] Implanted:Qty: 1 on 12/06/2016 by Gurinder Mc MD at [facility] Spine [employer] 07/26/2026 [id number] # / / [id number] Matrix 3cc [place] Dbf Putty Dbm Implanted:Qty: 1 on 12/06/2016 by Gurinder Mc MD at [facility] Explanted:at [facility] (Quantity not on file) Spine Medtronic Spine/Ortho 09/08/2018 [id number]# / [id number] / Screw Lmbr Post 5.5x40mm Vitality Va - [id number] Implanted:Qty: 1 on 12/06/2016 by Gurinder Mc MD at [facility] Spine [employer] Spine . 032# / / Screw Lmbr Post 5.5x45mm Vitality Va - [id number] Implanted:Qty: 2 on 12/06/2016 by Gurinder Mc MD at [facility] Spine [employer] Spine . 033# / / Set Screw Lmbr 5.5-6mm Vitality Shear Off - [id number] Implanted:Qty: 4 on 12/06/2016 by Gurinder Mc MD at [facility] Spine [employer] Spine 11. 001# / / Avni Lmbr 40x5.5mm Vitality Cvd Titnm - [id number] Implanted:Qty: 2 on 12/06/2016 by Gurinder Mc MD at [facility] Spine [employer] Spine 15. 005# / / Spacer Lmbr [id number] [place] Convex Stra Plif - [id number] Implanted:Qty: 1 on 12/06/2016 by Gurinder Mc MD at [facility] Spine [employer] [id number] # / / Screw Lmbr Post 6.5x40mm Vitality Va - [id number] Implanted:Qty: 1 on 12/06/2016 by Gurinder Mc MD at [facility] Spine [employer] Spine . 074# / / .[id number] Double Ended K-Wire Implanted:Qty: 2 on 12/03/2018 by Rex Fink DPM at [facility] Right: Foot N/A / / Interstim Basic Evaluation Lead Implanted:Qty: 1 on 09/28/2022 by Michelle Colmenares DO at [facility] Medtronic 01/26/2024 [id number] / / [id number] Interstim Basic Evaluation Kit Implanted:Qty: 1 on 09/28/2022 by Michelle Colmenares DO at [facility] Med[employer]onic 08/27/2023 [id number] / / [id number] Sys Interstim X Surescan Mri Lead And Smart Supervisory Civil Engineer - [id number] Implanted:Qty: 1 on 10/18/2022 by Michelle Colmenares DO at [facility] Right: Buttock Medtronic Pain Therapy 02/07/2024 [id number] / [id number] / Lead Kit 4.32mm Spacing 28cm Length Interstim - [id number] Implanted:Qty: 1 on 10/18/2022 by Michelle Colmenares, DO at [facility] Right: Buttock Medtronic Pain Therapy 01/17/2024 [id number] / / [id number] Envlp Neuro Tyrx Absorb Antibacterial - [id number] Implanted:Qty: 1 on 10/18/2022 by Michelle Colmenares, DO at [facility] Right: Buttock Medtronic 03/20/2023 [id number] / / [id number] Spacer Lmbr 4q21l96xm [place] Convex Stra Tlif - [id number] Implanted:Qty: 1 on 05/03/2023 by Gurinder Mc MD at [facility] N/A: Spine [employer] 09/13/2026 [id number] / / [id number] Avni Lmbr 95x5.5mm Vitality Cvd Titnm - [id number] Implanted:Qty: 1 on 05/03/2023 by Gurinder Mc MD at [facility] N/A: Spine [employer] Spine 07.69222. 016 / / Avni Lmbr 90x5.5mm Vitality Cvd Titnm - [id number] Implanted:Qty: 1 on 05/03/2023 by Gurinder Mc MD at [facility] N/A: Spine [employer] Spine 07.08571. 015 / / Set Screw Lmbr 5.5-6mm Vitality Torque - [id number] Implanted:Qty: 8 on 05/03/2023 by Gurinder Mc MD at [facility] N/A: Spine [employer] Spine 07.91778. 001 / / Screw Spinal 4.5x45mm Poly Tl Implanted:Qty: 1 on 05/03/2023 by Gurinder Mc MD at [facility] N/A: Spine [id number] / / Description:SCREW SPINAL 4.5 X45MM POLY TL Screw Spinal 5.5x45mm Poly Tl Implanted:Qty: 3 on 05/03/2023 by Gurinder Mc MD at [facility] N/A: Spine [id number] / / Description:SCREW SPINAL 5.5 X45MM POLY TL Bone 1-4mm 60cc Medtronic Fine Canclls Freeze Dried - [id number] Implanted:Qty: 1 on 05/03/2023 by Gurinder Mc MD at [facility] N/A: Spine Medtronic Spine/Ortho 09/21/2026 [id number] / [id number] 1 / Bone Matrix 6cc Emelina Dbf Putty Db - [id number] Implanted:Qty: 1 on 05/03/2023 by Gurinder Mc MD at [facility] N/A: Spine Medtronic Spine/Ortho 04/11/2025 [id number] / [id number] / Procedures Procedure Name Priority Date/Time Associated Diagnosis Comments ECHO TTE COMPLETE WO CONTRAST Routine 04/22/2024 1:07 PM CDT CHF (congestive heart failure) (HC) SCAN-RADIOLOGY REPORT 04/19/2024 12:00 AM CDT XR FOOT 3 VIEWS LEFT Routine 04/17/2024 3:27 PM CDT S/P foot surgery, left SCAN-RADIOLOGY REPORT 04/15/2024 12:00 AM CDT SCAN-OPERATIVE/PROCEDU RE REPORT 04/15/2024 12:00 AM CDT XR FOOT 3 VIEWS LEFT Routine 04/03/2024 [...] total left knee replacement, initial encounter (HC) EXPOSURE (BBF) ANTI HCV STAT 12/08/2016 1:07 AM CDT from Last 3 Months or Most Recently Relevant to Health Maintenance Results * ECHO TTE COMPLETE WO CONTRAST (04/22/2024 1:07 PM CDT) AORTIC VALVE MEAN PG 16 mmHg EJECTION FRACTION 71 % PEAK TR VELOCITY 3.1 m/s LVEDD 5.1 cm EJECTION FRACTION 65 - 70% Anatomical Region Laterality Modality Ultrasound 04/22/2024 12:2 6 PM CDT Narrative 04/22/2024 2:02 PM CDT ECHOCARDIOGRAM MARYAM CRISOSTOMO ? Accession#: ?? [id number] : ?1945 78 years Study Date: ?? 04/22/2024 12:26:04 PM Gender: F ?BP: ? 117/81 mmHg Height: 165.00 cm ?BSA: ?1.84 m? ? ? Weight: 77.00 kg ? Tech: ? MBF ? Referring MD: PETAR GONZALEZ Site: ? [facility] Reading Location: Mobile [facility] Patient Location: Inpatient. Procedure: 2D, Color Doppler and Spectral Doppler. Indication for study: CHF Cardiac Rhythm: Regular.Study quality: Fair. Final Impressions: 1. Normal LV size, normal wall thickness, normal global systolic function with an estimated EF of 65 - 70%. 2. Right ventricular cavity size is normal, global systolic RV function is normal. 3. The aortic valve is not well visualized and sclerotic, mild stenosis and no regurgitation. The aortic valve peak velocity is 2.7 m/s, the peak gradient is 29 mmHg, and the mean gradient is 16 mmHg. The aortic valve area is 1.43 cm? ? ? with a dimensionless index of 0.51. The stroke volume index is 48.2 ml/m? ? ?. 4. The mitral valve is sclerotic, trace mitral regurgitation. 5. Mitral stenosis with moderately increased mean gradient of 6.6 mmHg at a heart rate of 76. 6. Mildly enlarged left atrium. 7. Moderately increased estimated pulmonary pressures by tricuspid regurgitation velocity and right atrial pressure (39 mmHg plus RAP). Chamber Sizes and Function Normal left ventricular size, normal wall thickness, normal global systolic function with an estimated EF of 65 - 70%. No resting regional wall motion abnormality visualized. Left atrial size is mildly enlarged. Right ventricular cavity size is normal, global systolic RV function is normal. The right atrium is normal. The pulmonary artery is not well visualized. The sinus of Valsalva is normal sized. The ascending aorta is normal sized. Valves, RV Pressures and Diastolic Function The aortic valve is not well visualized and sclerotic, mild stenosis and no regurgitation. The mitral valve is sclerotic, trace mitral regurgitation. Mitral annular calcification is present. A moderately increased gradient of 6.6 mmHg at a heart rate of 76 is calculated across the mitral valve using continuous Doppler examination. Indeterminate pattern of LV diastolic filling. The tricuspid valve is normal in structure. Tricuspid regurgitation is mild regurgitation. The tricuspid regurgitant velocity is 3.1 m/s, the estimated right ventricular systolic pressure is 39 mmHg plus right atrial pressure. There is moderately increased estimated pulmonary pressure by tricuspid regurgitation velocity and right atrial pressure. The pulmonic valve is not well visualized. Unable to determine pulmonary regurgitation. Masses, Effusion, Shunts There is no pericardial effusion. The inferior vena cava is dilated, respiratory size variation less than 50%. No left to right shunting was detected by limited color flow Doppler interrogation of the interatrial septum. MEASUREMENTS AND CALCULATIONS 2-D Measurements and LV Function: LVID (d) 5.1 cm LV FS% (2D) ?? 38 % LVID (s) 3.2 cm LVOT diameter 1.9 cm IVS (d) ??1.0 cm HR ?78 bpm LVPW (d) 0.9 cm LA Vol index ??40 ml/m2 Ao Sinus 2.9 cm RV Max 4C (d) 3.9 cm Asc Ao ?? 2.6 cm Diastology: Mitral ?Tissue Doppler E Peak 1.8 m/s ??e', Septum ? 0.06 m/s A Peak 1.0 m/s ??e', Lateral ?0.08 m/s E/A ?1.8 ?E/e' Average ?? 27.67 DT ? 184 msec Aortic Valve: Vmax ? 2.7 m/s ??NGUYỄN (V) ?? 1.32 cm? ? ? VTI ?0.62 m ?? NGUYỄN (I) ?? 1.43 cm? ? ? LVOT V max 1.3 m/s ??Max PG ?29 mmHg LVOT VTI ?? 0.32 m ?? Mean PG ?? 16 mmHg SV ? 89 ml ?Dim Index 0.51 SV index ?? 48 ml/m? ? ? CO ?6.9 l/min ?CI ?3.8 l/min/m? ? ? Mitral Valve: MVA ? 4.1 cm? ? ? MV P 1/2 ??53 msec MV Mean G 7 mmHg MV VTI ?0.50 m Tricuspid Valve and estimated PA pressures: TR Vmax 3.1 m/s TAPSE 2.7 cm TR maxG 39 mmHg . This study was interpreted by an [facility] accredited facility. CC: HIM (med records) [facility], Med/Surg - IP [facility]. ??Final ?? Procedure Note David Delaney MD - 04/22/2024 ECHOCARDIOGRAM MARYAM CRISOSTOMO : 1945 78 years Study Date: 04/22/2024 12:26:04 PM Gender: F BP: 117/81 mmHg Height: 165.00 cm BSA: 1.84 m? ? ? Weight: 77.00 kg Tech: [facility] Referring MD: PETAR GONZALEZ Site: [facility] Reading Location: [facility] Patient Location: Inpatient. Procedure: 2D, Color Doppler and Spectral Doppler. Indication for study: CHF Cardiac Rhythm: Regular.Study quality: Fair. Final Impressions: 1. Normal LV size, normal wall thickness, normal global systolic functionwith an estimated EF of 65 - 70%. 2. Right ventricular cavity size is normal, global systolic RV functionis normal. 3. The aortic valve is not well visualized and sclerotic, mild stenosisand no regurgitation. The aortic valve peak velocity is 2.7 m/s, the peakgradient is 29 mmHg, and the mean gradient is 16 mmHg. The aortic valvearea is 1.43 cm? ? ? with a dimensionless index of 0.51. The stroke volumeindex is 48.2 ml/m? ? ?. 4. The mitral valve is sclerotic, trace mitral regurgitation. 5. Mitral stenosis with moderately increased mean gradient of 6.6 mmHg soham heart rate of 76. 6. Mildly enlarged left atrium. 7. Moderately increased estimated pulmonary pressures by tricuspidregurgitation velocity and right atrial pressure (39 mmHg plus RAP). Chamber Sizes and Function Normal left ventricular size, normal wall thickness, normal globalsystolic function with an estimated EF of 65 - 70%. No resting regionalwall motion abnormality visualized. Left atrial size is mildly enlarged.Right ventricular cavity size is normal, global systolic RV function isnormal. The right atrium is normal. The pulmonary artery is not wellvisualized. The sinus of Valsalva is normal sized. The ascending aorta isnormal sized. Valves, RV Pressures and Diastolic Function The aortic valve is not well visualized and sclerotic, mild stenosis andno regurgitation. The mitral valve is sclerotic, trace mitralregurgitation. Mitral annular calcification is present. A moderatelyincreased gradient of 6.6 mmHg at a heart rate of 76 is calculated acrossthe mitral valve using continuous Doppler examination. Indeterminate pattern of LV diastolic filling. The tricuspid valve isnormal in structure. Tricuspid regurgitation is mild regurgitation. Thetricuspid regurgitant velocity is 3.1 m/s, the estimated right ventricularsystolic pressure is 39 mmHg plus right atrial pressure. There ismoderately increased estimated pulmonary pressure by tricuspidregurgitation velocity and right atrial pressure. The pulmonic valve isnot well visualized. Unable to determine pulmonary regurgitation. Masses, Effusion, Shunts There is no pericardial effusion. The inferior vena cava is dilated,respiratory size variation less than 50%. No left to right shunting wasdetected by limited color flow Doppler interrogation of the interatrialseptum. MEASUREMENTS AND CALCULATIONS 2-D Measurements and LV Function: LVID (d) 5.1 cm LV FS% (2D) 38 % LVID (s) 3.2 cm LVOT diameter 1.9 cm IVS (d) 1.0 cm HR 78 bpm LVPW (d) 0.9 cm LA Vol index 40 ml/m2 Ao Sinus 2.9 cm RV Max 4C (d) 3.9 cm Asc Ao 2.6 cm Diastology: Mitral Tissue Doppler E Peak 1.8 m/s e', Septum 0.06 m/s A Peak 1.0 m/s e', Lateral 0.08 m/s E/A 1.8 E/e' Average 27.67 DT 184 msec Aortic Valve: Vmax 2.7 m/s NGUYỄN (V) 1.32 cm? ? ? VTI 0.62 m NGUYỄN (I) 1.43 cm? ? ? LVOT V max 1.3 m/s Max PG 29 mmHg LVOT VTI 0.32 m Mean PG 16 mmHg SV 89 ml Dim Index 0.51 SV index 48 ml/m? ? ? CO 6.9 l/min CI 3.8 l/min/m? ? ? Mitral Valve: MVA 4.1 cm? ? ? MV P 1/2 53 msec MV Mean G 7 mmHg MV VTI 0.50 m Tricuspid Valve and estimated PA pressures: TR Vmax 3.1 m/s TAPSE 2.7 cm TR maxG 39 mmHg . This study was interpreted by an IAC accredited facility. CC: HIM (med records) [facility] [place], Med/Surg - IP [facility]. Final Petar Gonzalez MD ECHO ORD * SCAN-RADIOLOGY REPORT (04/19/2024 12:00 AM CDT) Only the most recent of2 resultswithin the time period is included. Anatomical Region Laterality Modality Other Scanner OTHER * XR FOOT 3 VIEWS LEFT (04/17/2024 3:27 PM CDT) Only the most recent of3 resultswithin the time period is included. Anatomical Region Laterality Modality FEET, FOOT L Computed Radiogr aphy 04/17/2024 4:01 PM CDT Narrative 04/17/2024 4:01 PM CDT For Patients: ??As a result of the Cures Act, medical imaging exams and procedure reports are released immediately into your electronic medical record. ??You may view this report before your referring provider. ??If you have questions, please contact your health care provider. Indication: Postop Technique: Left foot 3 views Comparison: 04/03/2024 Findings: Postop changes of 1st MTP fusion with intact hardware. Postop changes of hammertoe correction to the 2nd and 3rd toes with intact screw fixation. Fixation across the 3rd metatarsal diaphyseal fracture. Prominent degenerative changes at the midfoot. Plantar calcaneal spur. Impression: Multifocal postop changes. Dictated by David Olson MD @ 04/17/2024 4:01:48 PM (Electronically Signed) Procedure Note David Olson MD - 04/17/2024 For Patients: As a result of the s , medical imagingexams and procedure reports are released immediately into your electronicmedical record. You may view this report before your referring provider.If you have questions, please contact your health care provider. Indication: Postop Technique: Left foot 3 views Comparison: 04/03/2024 Findings: Postop changes of 1st MTP fusion with intact hardware. Postop changes ofhammertoe correction to the 2nd and 3rd toes with intact screw fixation.Fixation across the 3rd metatarsal diaphyseal fracture. Prominentdegenerative changes at the midfoot. Plantar calcaneal spur. Impression: Multifocal postop changes. Dictated by David Olson MD @ 04/17/2024 4:01:48 PM (Electronically Signed) Rex Fink DPM GENERAL IMAGING * SCAN-OPERATIVE/PROCEDURE REPORT (04/15/2024 12:00 AM CDT) Scanner OTHER * XR HIP 2 OR 3 VIEWS W PELVIS RIGHT (04/02/2024 2:28 PM CDT) Anatomical Region Laterality Modality HIPS, HIPR, Pelvis Digital Radio graphy 04/03/2024 12:0 9 PM CDT Narrative 04/03/2024 12:09 PM CDT For Patients: ??As a result of the s , medical imaging exams and procedure reports are [...] Patients: As a result of the s , medical imagingexams and procedure reports are released [...] @ 04/03/2024 12:09:43 PM (Electronically Signed) Lalito Bean Richmondjamal DO GENERAL IMAGING * XR LEG LENGTH (03/14/2024 3:18 PM CDT) Anatomical Region Laterality Modality LEGS, FEMURS Digital Radiogra phy 03/16/2024 8:02 AM CDT Narrative 03/16/2024 8:02 AM CDT For Patients: ??As a result of the s , medical imaging exams and procedure reports are [...] Patients: As a result of the s , medical imagingexams and procedure reports are released [...] RATE (02/20/2024 3:44 PM CDT) Pathologist [facility] SEDIMENTATION RATE 8 <30 mm/hr 2023 10:41 PM CDT [facility] Blood BLOOD SPECIMEN / Unknown Venipuncture / Unknown 02/20/2024 3:44 PM CDT 02/20/2024 3:44 PM CDT Lalito Perdue DO HEMATOLOGY Performing Organization Address City/[facility]/ZIP Co de Phone Number [facility] [address] [place] [address], * C-REACTIVE PROTEIN (02/20/2024 3:44 PM CDT) [facility] C-REACTIVE PROTEIN <0.3 <0.5 mg/dL 02/20/2024 11:05 PM CDT [facility] Blood BLOOD SPECIMEN / Unknown Venipuncture / Unknown 02/20/2024 3:44 PM CDT 02/20/2024 3:44 PM CDT Lalito Perdue DO CHEMISTRY [facility] [address] [place] [address], * D-DIMER,QUANTITATIVE (02/20/2024 3:44 PM CDT) Pathologist [facility] D-DIMER,QUANTI TATIVE 0.54 See comment FEU mcg/mL 02/21/2024 1:32 AM CDT [facility] Blood BLOOD SPECIMEN / Unknown Venipuncture / Unknown 02/20/2024 3:44 PM CDT 02/20/2024 3:44 PM CDT Narrative [facility] - 02/21/2024 1:32 AM CDT The cut off value for exclusion of Deep Vein Thrombosis and / or Pulmonary Embolism is 0.50 FEU mcg/mL For patients greater than 50 years of age the upper limit is age dependent and was calculated with the formula: ?? (PATIENT AGE x 0.01) FEU mcg/mL = Upper limit of normal range Lalito Perdue DO HEMATOLOGY [facility] [address] [place] [address], * Patient Source ANTI HCV (12/08/2016 1:07 AM CDT) HEPATITIS C ANTIBODY Non-Reacti ve Non-Reacti ve 12/08/2016 2:31 AM CDT [facility] Blood BLOOD SPECIMEN / Unknown Venipuncture / Unknown 12/08/2016 1:07 AM CDT 12/08/2016 1:28 AM CDT Narrative [facility] - 12/08/2016 2:31 AM CDT Antibodies to HCV not detected; does not exclude the possibility of exposure to HCV. Meghann Humphreys MD SEND OUTS Performing Organization Address City/[facility]/ZIP Co de Phone Number [facility] [address] [place] [address], from Last 3 Months or Most Recently Relevant to Health Maintenance Advance Directives Documents on File Type Date Recorded Patient Waiter/Waitress Head Expl anation Healthcare Directive 12/31/2015 7:52 AM [...] Comments Code Status Discussion: Discussed Care Teams Four Slide Machine Operator Relationship Specialty Start Date End Date Lina Meléndez MD [address] [place] [address] PCP - General Internal Medicine 11/01/21
--- OUTSIDE RECORDS SUMMARY | 2024-04-25 08:26 | XMS_ITS ---
Author Organization [facility] Address [address] [place] [address] Care Team Providers Care Children'S Book Author Name Role Phone Unavailable Primary Care Provider [...] Treated Prescribed Fraction Dose Prescribed Total Dose [id number] 02/18/2022 4 5 of 5 520 cGy 2,600 cGy Reference Point Last Treated On Elapsed Days Session Dose Total Dose [id number] 02/18/2022 4 520 cGy 2,600 cGy icru ref 02/16/2022 2 531 cGy 1,593 cGy
--- OUTSIDE RECORDS SUMMARY | 2024-04-25 08:26 | XMS_ITS | Referral Summary ---
Author Organization [facility] Address [address] [place] [address] Care Team Providers Care Knitter Machine Name Role Phone Unavailable Primary Care Provider Unavailabl e Source Comments Patient records contain information from all sites at [facility]. For routine questions regarding patient records, call [phone] during business hours, M-F 8:00 AM - 5:00 PM Central Time. Record requests for emergency care only can be directed to [phone] at any time.[facility] Encounters Date Type Department Care Team Description 03/19/2024 Documentation Division of Nephrology and Hypertension in [place], [place] [address] [place] [address] Joshua Lopez Jr., D.O. 02/06/2024 3:30 PM CDT External Outreach Division of Nephrology and Hypertension in [place], [place] [address] [place] [address] Joshua Lopez Jr. D.O. Hypertensive Chronic Kidney Disease With Stage 1 Through Stage 4 Chronic Kidney Disease, Or Unspecified Chronic Kidney Disease (Primary Dx); Hyponatremia; Diabetes Mellitus Type 2 (HCC); Malignant Neoplasm Of Breast Upper Outer Quadrant Female Right (HCC) from Last 3 Months Allergies Active Allergy [...] from 12/21/2021:Stage Unknown(pT1b, pNX, cM0, G2, ER+, DE+, HER2-, Oncotype DX score: 17) - Unsigned [...] often do you attend chur ch or zoroastrianism services? More than 4 times per year 02/12/2022 Do you belong to any clubs o r organizations such as presybeterian groups, unions, fraternal or athletic groups, or [...] medical care, and heating? 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
--- OUTSIDE RECORDS SUMMARY | 2024-04-25 08:26 | XMS_ITS | Referral Summary ---
Author Organization [facility] Address [address] [place] [address] Care Team Providers Care Dictating Machine Transcriber Name Role Phone Lina Meléndez MD Primary Care Provider [phone] [place] Park[place]oda I Unavailable Allergies Active Allergy Reactions Criticality [...] High 05/08/2023 Other Reaction(s): stuffed nose Medications insulin glargine (LANTUS VIAL) 100 UNIT/ML vial Inject 16 Units Subcutaneous every morning 11/06/19 19 Active fluticasone (FLONASE) 50 MCG/ACT nasal spray [place] 2 sprays in nostril daily Active valACYclovir [...] 600 mg by mouth at bedtime Active glucosamine-chond roitin 500-400 MG CAPS per capsule Take 1 capsule by mouth daily Active albuterol (PROAIR HFA/PROVENTIL HFA/VENTOLIN HFA) 108 (90 Base) MCG/ACT inhaler Inhale 1-2 puffs into the lungs every 4 hours as needed 12/21/19 22 Active beclomethasone HFA (QVAR REDIHALER) 80 MCG/ACT inhaler Inhale 2 puffs into the lungs 2 times daily 01/19/20 22 Active calcium carbonate-vitamin D (CALTRATE) 600-10 MG-MCG [...] 20 mg by mouth daily Active senna-docusate (SENOKOT-S/ALF LACE) 8.6-50 MG tablet Take 1-4 tablets by mouth 2 times daily as needed for constipation Active insulin aspart (NOVOLOG PEN) 100 UNIT/ML pen Inject 4-9 Units Subcutaneous 3 times daily (with meals) Active oxyCODONE (ROXICODONE) 5 MG tabletIndications :Hemorrhoids, unspecified hemorrhoid type Take 1 tablet (5 mg) by mouth every 6 hours as needed for moderate to severe pain 12 tablet 08/04/19 24 Active lidocaine (XYLOCAINE) 5 % external ointmentIndicatio ns:Hemorrhoids, unspecified hemorrhoid type Apply topically as needed for moderate pain Apply a pea sized amount to the perianal skin four times daily as needed for pain. 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): Created by Conversion Hyperlipidemia Overview (12/08/2020): Created by Conversion Depression Overview (12/08/2020): Created by Conversion Migraine Headache Overview (12/25/2020): Created by Conversion Replacement Utility updated for latest IMO load Myopia Overview (12/08/2020): Created by Conversion Hypertension Overview (12/25/2020): Created by Conversion Replacement Utility updated for latest IMO load Asthma Overview (12/08/2020): Created by Conversion Esophageal Reflux Overview (12/08/2020): Created by Conversion Urticaria Overview (12/08/2020): Created by Conversion Osteoarthritis Overview (12/25/2020): Created by [employer] Annotation: Dec 29 2006 3:46PM - Jojo Faustin: CHRISTIANA Replacement Utility updated for latest IMO load Lower Back Pain Overview (12/25/2020): Created by [employer] Annotation: Dec 29 2006 3:46PM - Jojo Faustin: MRI: small L5-S1 disc, degenerative changes, narrowing of bilateral neuroforamina L5-S1 and mass effect on both L5 nerves Stress Incontinence Overview (12/08/2020): Created by Conversion Immunizations Name Administration Dates [...] School Help Needed Not on file 04/12 Comments No Sex and Gender Information Value Date Recorded Sex Assigned at Female 02/24/2020 11:40 AM CDT Legal Sex Female 5:06 AM CHROME POLISHER Gender Identity Female 02/24/2020 11:40 AM CDT Sexual Orientation Not on file Last Filed Vital Signs Vital Sign Reading Time Taken Comments Blood Pressure 153/88 08/04/2023 11:00 AM CHROME POLISHER Pulse 79 08/04/2023 11:00 AM CHROME POLISHER Temperature 36.1 ??C (97 ??F) 08/04/2023 11:00 AM CHROME POLISHER Respiratory Rate 18 08/04/2023 11:00 AM CHROME POLISHER Oxygen Saturation 100% 08/04/2023 11:00 AM CHROME POLISHER Inhaled Oxygen Concentration - - Weight 70.9 kg (156 lb 4.8 oz) 08/04/2023 6:02 A M CHROME POLISHER Height 165.1 cm (5' 5) 07/26/2023 1:00 PM CHROME POLISHER Body Mass Index 26.01 07/26/2023 1:00 PM CHROME POLISHER Plan of Treatment Not on file Procedures Procedure Name Priority Date/Time Associated Diagnosis Comments COLONOSCOPY Routine 08/04/2023 7:25 AM CHROME POLISHER LIPID PROFILE Routine 12/18/2019 HEMOGLOBIN A1C Routine 12/18/2019 from Last 3 Months or Most Recently Relevant to Health Maintenance Results * COLONOSCOPY (08/04/2023 7:25 AM CHROME POLISHER) Pathologist [facility] COLONOSCOPY [facility] Patient Name: Maryam Cortez ?Procedure Date: 08/04/2023 [...] ?Olympus, Pediatric Colonoscope, Model # PCF-H190DL, ?Censitrac #[id number] was introduced through the ?anus with the [...] criteria for high risk CPT copyright 2021 [employer]. All rights reserved. The codes documented in this report are preliminary and upon media buyer review may be revised to meet current compliance requirements. EVER ZEE MD 08/04/2023 8:47:30 AM I was physically present for the entire viewing portion of the exam. EVER ZEE MD Number of Addenda: 0 Note Initiated On: 08/04/2023 7:25 AM MRN: ?[id number] Procedure Date: ? 08/04/2023 7:25:15 AM Total Procedure Duration: 0 hours 3 minutes 40 seconds Estimated Blood Loss: ? Scope In: 7:47:47 AM Scope Out: 7:51:27 AM RADIOLOGY RESULTS 08/04/2023 7:25 AM CHROME POLISHER Ever Zee MD PROCEDURES Final Res ult RADIOLOGY RESULTS * Lipid Profile (12/18/2019) Cholesterol 154 90 - 200 mg/dL [facility] Triglycerides 53 40 - 197 mg/dL [facility] HDL Cholesterol 106 >=50 mg/dL [facility] LDL Cholesterol Calculated 37 <100 mg/dL [facility] Blood specimen (specimen) 12/18/[address] [facility] - 12/18/2019 LAB RESULTS [place] Patient Reported LAB - BLOOD ORDERABLES Final Re sult Performing Organization Address City/[facility]/ZIP Co de Phone Number [facility] [address] [place] [address], [facility] [phone] * (ABNORMAL) Hemoglobin A1c (12/18/2019) Hemoglobin A1C 7.3(A) <=6.9 % [facility] Blood specimen (specimen) 12/18/[address] [facility] - 12/18/2019 LAB RESULTS [place] us Provider Outside LAB - BLOOD ORDERABLES Final Re sult Performing Organization Address City/[facility]/ZIP Co de Phone Number [facility] [address] [place] [address], [facility] [phone] from Last 3 Months or Most Recently Relevant to Health Maintenance Insurance [facility] Care Teams Dictating Machine Transcriber Relationship Specialty Start Date End Date Lina Meléndez MD [facility] & [address] [address] PCP - General Internal Medicine 12/26/14 Rhoda Sarabia I [address] [place] [id number] Restorative Coordinator Dietitian, Registered 02/20/20
--- OUTSIDE RECORDS SUMMARY | 2024-04-25 08:26 | XMS_ITS | Clinical Summary ---
Author Organization [facility] Address [address] [place] [address] Care Team Providers Care Supervisor Carpenters Name Role Phone Lina Meléndez MD Primary Care Provider [phone] [place] I Unavailable Allergies Active Allergy Reactions Criticality [...] Active fluticasone (FLONASE) 50 MCG/ACT nasal spray [place] 2 sprays in nostril daily Active valACYclovir [...] by Conversion Osteoarthritis Overview (12/25/2020): Created by [employer] Annotation: Dec 29 2006 3:46PM - Jojo Faustin: CHRISTIANA Replacement Utility updated for latest IMO load Lower Back Pain Overview (12/25/2020): Created by [employer] Annotation: Dec 29 2006 3:46PM - Jojo [...] AM CDT Legal Sex Female 5: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 Gender Identity Female 02/24/2020 11:40 AM CDT Sexual Orientation Not on file Last Filed Vital Signs Vital Sign Reading Time Taken Comments Blood Pressure 153/88 08/04/2023 11:00 AM INSPECTOR PURCHASED PARTS Pulse 79 08/04/2023 11:00 AM INSPECTOR PURCHASED PARTS Temperature 36.1 ??C (97 ??F) 08/04/2023 11:00 AM INSPECTOR PURCHASED PARTS Respiratory Rate 18 08/04/2023 11:00 AM INSPECTOR PURCHASED PARTS Oxygen Saturation 100% 08/04/2023 11:00 AM INSPECTOR PURCHASED PARTS Inhaled Oxygen Concentration - - Weight 70.9 kg (156 lb 4.8 oz) 08/04/2023 6:02 A M INSPECTOR PURCHASED PARTS Height 165.1 cm (5' 5) 07/26/2023 1:00 PM INSPECTOR PURCHASED PARTS Body Mass Index 26.01 07/26/2023 1:00 PM INSPECTOR PURCHASED PARTS Plan of Treatment Health [...] Additional history exists INFLUENZA VACCINE (#1) 2024 3, 03/29/2022, 03/31/2021, [...] Diagnosis Comments COLONOSCOPY Routine 08/04/2023 7:25 AM INSPECTOR PURCHASED PARTS LIPID PROFILE Routine 12/18/2019 HEMOGLOBIN A1C Routine 12/18/2019 from Last 3 Months or Most Recently Relevant to Health Maintenance Results * COLONOSCOPY (08/04/2023 7:25 AM INSPECTOR PURCHASED PARTS) COLONOSCOPY [facility] Patient Name: Maryam Cortez ?Procedure Date: [...] ?Olympus, Pediatric Colonoscope, Model # PCF-H190DL, ?Censitrac #[id number] was introduced through the ?anus with the [...] criteria for high risk CPT copyright 2021 [employer]. All rights reserved. The codes documented in this report are preliminary and upon apprentice lineman third step review may be revised to meet current compliance requirements. EVER ZEE MD 08/04/2023 8:47:30 AM I was physically present for the entire viewing portion of the exam. EVER ZEE MD Number of Addenda: 0 Note Initiated On: 08/04/2023 7:25 AM MRN: ?[id number] Procedure Date: ? 08/04/2023 7:25:15 AM Total Procedure Duration: 0 hours 3 minutes 40 seconds Estimated Blood Loss: ? Scope In: 7:47:47 AM Scope Out: 7:51:27 AM RADIOLOGY RESULTS 08/04/2023 7:25 AM INSPECTOR PURCHASED PARTS us Ever Zee MD PROCEDURES Final Res ult RADIOLOGY RESULTS * Lipid Profile (12/18/2019) Cholesterol 154 90 - 200 mg/dL [facility] Triglycerides 53 40 - 197 mg/dL [facility] HDL Cholesterol 106 >=50 mg/dL [facility] LDL Cholesterol Calculated 37 <100 mg/dL [facility] Blood specimen (specimen) 12/18/2019 Narrative [facility] - 12/18/2019 LAB RESULTS [place] Patient Reported LAB - BLOOD ORDERABLES Final Re sult Performing Organization Address City/[facility]/ZIP Co de Phone Number [facility] [address] [place] [address], [facility] [phone] * (ABNORMAL) Hemoglobin A1c (12/18/2019) Hemoglobin A1C 7.3(A) <=6.9 % [facility] Blood specimen (specimen) 12/18/2019 Narrative [facility] - 12/18/2019 LAB RESULTS [place] us Provider Outside LAB - BLOOD ORDERABLES Final Re sult Performing Organization Address City/[facility]/ZIP Co de Phone Number [facility] [address] [place] [address], [facility] [phone] from Last 3 Months or Most Recently Relevant to Health Maintenance Insurance [facility] MEDIC[facility] Care Teams Supervisor Carpenters Relationship Specialty Start Date End Date Lina Meléndez MD [facility] & [address] [id number] PCP - General Internal Medicine 12/26/14 Rhoda Sarabia I [address] [place] [id number] Chemical Operator Dietitian, Registered 02/20/20
--- OUTSIDE RECORDS SUMMARY | 2024-04-25 08:27 | XMS_ITS | Encounter Summary ---
Author Organization [facility] Address [address] [place] [address] Care Team Providers Care Media Center Specialist Name Role Phone Unavailable Primary Care Provider Unavailabl e Reason for Visit * Appointment Request (Routine) - Closed Specialty Diagnoses / Procedures Referred By Caroline t Referred To Contact Nephrology and Hypertension Referral ID Status Reason Start Date Expiration Date Visits Re quested Visits Authorized [id number] Closed 01/05/2024 01/04/2025 1 1 Encounter Details Date Type Department Care Team (Latest Contact Info) Description 02/06/2024 3:30 PM CDT External Outreach Division of Nephrology and Hypertension in [place], [place] [address] [place] [address] Joshua Lopez Jr., D.O. [address] [place] [address] Hypertensive Chronic Kidney Disease With Stage 1 [...] How often do you attend chur or congregational services? More than 4 times per year 02/12/2022 Do you belong to any clubs o r organizations such as shinto groups, unions, fraternal or athletic groups, or [...] medical care, and heating? Somewhat hard 02/12/2022 [facility] of Occupat ional Health - Occupational Stress [...] or slept in a halfway (including now)? 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 [place] , Disp: , Rfl: flash glucose sensor [...]
--- OUTSIDE RECORDS SUMMARY | 2024-04-25 08:27 | XMS_ITS | Encounter Summary ---
Author Organization [facility] Address [address] [place] [address] Care Team Providers Care Coagulation Operator Name Role Phone Unavailable Primary Care Provider Unavailabl e Reason for Visit * Reason Comments Med Refill Encounter Details Date Type Department Care Team (Late st Contact Info) Description 01/22/2024 Refill Division of Nephrology and Hypertension in [place], [place] [address] [place] [phone] Joshua Lopez Jr., D.O. [address] [place] [address] Med Refill Social History Tobacco Use Types [...] often do you attend chur ch or mu-ism services? More than 4 times per year 02/12/2022 Do you belong to any clubs o r organizations such as confucianist groups, unions, fraternal or athletic groups, or [...] medical care, and heating? 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
--- OUTSIDE RECORDS SUMMARY | 2024-04-25 08:27 | XMS_ITS | Encounter Summary ---
Author Organization [facility] Address [address] [place] [id number] Care Team Providers Care Cook Chef Name Role Phone Unavailable Primary Care Provider Unavailabl e Encounter Details Date Type Department Care Team (Late st Contact Info) Description 03/19/2024 Documentation Division of Nephrology and Hypertension in [place], [place] [address] [place] [phone] Joshua Lopez Jr., D.O. [address] [place] [id number] Social History Tobacco Use Types Packs/Day Years [...] How often do you attend chur or holiness services? More than 4 times per year 02/12/2022 Do you belong to any clubs o r organizations such as mandaen groups, unions, fraternal or [...] medical care, and heating? Somewhat hard 02/12/2022 [facility] [place] [facility] - Occupational Stress [...] on file Legal Sex Female 12:47 PM [employer] Gender Identity Not on file Sexual Orientation Not on file documented as of this encounter Progress Notes * Joshua Lopez Jr., D.OMireille - 03/19/2024 10:40 AM CDT Care Coordinayion: Email receipt Re minoxidil 2.5 mg per day for allopecia: Thanks for the question Ms Cortez Yes it's OK, I agree with the 2 to begin, edwardo h for ankle swelling! Best regards DR Dowling documented in this encounter Plan of Treatment Not on file documented as of this encounter Visit Diagnoses Not on filedocumented in this encounter
== END 2024-04-24 14:06 | disposition home or self-care (01) ==
LOC: NFLDREF 04-25 08:23
PROVIDERS: PCP Internal Medicine; Referring Provider Internal Medicine; Visit Provider Internal Medicine
DX: I50.30 Unspecified diastolic (congestive) heart failure (principal)
CPT/HCPCS: 80053

== ENCOUNTER 2024-04-29 09:25 | Inpatient (IN) | payer MEDICARE, SELFPAY ==
[2024-04-29] VITALS (36 sets, daily range): BP systolic 135–192; BP diastolic 52–160; PULSE 61–80; RESP 16–18; TEMP 36.4–36.8; O2SAT 92–100; BMI 24.9; BMI 27.0
--- NOTE | 2024-04-29 09:36 | CRLHL7_ITS ---
For Patients: As a result of the Century Cures Act, medical imaging exams and procedure reports are released immediately into your electronic medical record. You may view this report before your referring provider. If you have questions, please contact your health care provider. Indication: Slurred speech, dysarthria. Technique: Noncontrast CT of head was performed. Comparison: MRI 12/04/2017. CT 01/15/2018. Findings: Brain parenchyma: Normal montanez-white matter differentiation. Punctate left basal ganglia calcification with subtle adjacent hypodensity, similar in appearance compared to 01/15/2018. Minimal prominence of the convexity sulci and periventricular white matter hypodensities in keeping with chronic microvascular change and age related volume loss. No acute intraparenchymal hemorrhage. No mass effect or midline shift. Mild atherosclerotic arterial calcifications. Extra-axial spaces: No extra-axial collection. Ventricular system: Unremarkable for age. Paranasal sinuses and mastoid air cells: Possible small osteoma within the right sphenoid sinus. Otherwise clear. Orbits: Unremarkable. Bones: No calvarial fracture. Impression: 1. No acute intracranial abnormality identified. 2. Minimal cerebral volume loss and findings suggestive of chronic small vessel ischemic change. Please note that all CT scans at this facility use dose modulation, iterative reconstruction, and/or weight-based dosing when appropriate to reduce radiation dose to as low as reasonably achievable. Dictated by Ritika Benavides MD @ 04/29/2024 10:09:05 AM (Electronically Signed)
--- NOTE | 2024-04-29 09:36 | CRLHL7_ITS ---
For Patients: As a result of the Century Cures Act, medical imaging exams and procedure reports are released immediately into your electronic medical record. You may view this report before your referring provider. If you have questions, please contact your health care provider. CLINICAL HISTORY: Dysarthria; slurred speech. TECHNIQUE: Standard helical CT image acquisition through the neck was performed after intravenous contrast bolus enhancement. 3D and MIP reconstructions were performed at a separate workstation and permanently archived. COMPARISON: MRA neck dated 12/04/2017. FINDINGS: The origins of the great vessels from the aortic arch are patent. The common carotid arteries are patent. 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 No significant stenosis of the proximal left ICA. 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 The distal cervical left ICA is patent. The origins and cervical segments of the vertebral arteries are patent. IMPRESSION: 1. 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 2. 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 Please note that all CT scans at this facility use dose modulation, iterative reconstruction, and/or weight-based dosing when appropriate to reduce radiation dose to as low as reasonably achievable. Dictated by Anselmo Jacobson MD @ 04/29/2024 1:49:06 PM (Electronically Signed)
--- NOTE | 2024-04-29 09:36 | CRLHL7_ITS ---
For Patients: As a result of the Century Cures Act, medical imaging exams and procedure reports are released immediately into your electronic medical record. You may view this report before your referring provider. If you have questions, please contact your health care provider. CLINICAL HISTORY: Slurred speech; dysarthria. TECHNIQUE: Standard helical CT image acquisition through the head following the administration of intravenous contrast was performed. 3D and MIP reconstructions were performed at a separate workstation and permanently archived. COMPARISON: None available. FINDINGS: No intracranial proximal large vessel occlusion or flow-limiting luminal stenosis. No evidence of cerebral aneurysm. No findings to suggest an arterial-venous shunting lesion. The major dural venous sinuses and deep venous system are patent. IMPRESSION: No intracranial proximal large vessel occlusion, flow-limiting luminal stenosis, or cerebral aneurysm. Please note that all CT scans at this facility use dose modulation, iterative reconstruction, and/or weight-based dosing when appropriate to reduce radiation dose to as low as reasonably achievable. Dictated by Anselmo Jacobson MD @ 04/29/2024 1:52:02 PM (Electronically Signed)
--- NOTE | 2024-04-29 09:39 | CRLHL7_ITS ---
For Patients: As a result of the Century Cures Act, medical imaging exams and procedure reports are released immediately into your electronic medical record. You may view this report before your referring provider. If you have questions, please contact your health care provider. Indication: eval for stroke. difficulty reading Technique: Noncontrast sagittal T1 weighted, axial T2 fast spin echo, FLAIR, and diffusion weighted images of the head. Significant delay of receiving images, particularly diffusion-weighted sequences, into PACS until after 4 p.m. Comparison: CT 04/29/2024, MRI 12/04/2017 Findings: Multiple scattered foci of increased T2 signal within the periventricular and subcortical white matter of both cerebral hemispheres and in the brainstem. Mild cerebral volume loss. The pituitary gland, optic chiasm, pineal gland, and cerebellar tonsils are unremarkable. New small chronic lacunar infarcts in the right frontal lobe and left frontal lobe, and left parietal lobe. There is a 5 mm focus of susceptible artifact in the right parietal lobe, 3 millimeter focus of susceptibility effect in the left parietal lobe, and foci of susceptibility artifact in the left temporal lobe measuring up to 4 mm concerning for remote microhemorrhages. Few small foci of diffusion restriction and T2 prolongation along the left middle frontal gyrus cortex compatible with acute ischemic infarcts. The ventricles, sulci and gyri are of normal size, shape and contour for age and degree of atrophy. Midline structures are centrally located. No convincing evidence of suspicious intra- or extra-axial fluid collections. Bilateral pseudophakia. Rightward deviation of the nasal septum. Findings discussed with Dr. Akins at 4:15 p.m. Impression: 1. Few small foci of diffusion restriction and T2 prolongation along the left middle frontal gyrus cortex compatible with acute ischemic infarcts. 2. Mild worsening of moderate supratentorial and infratentorial white matter changes are non-specific but most likely related to small vessel ischemic disease. Mild cerebral volume loss. 3. New small chronic lacunar infarcts in the frontal lobes and left parietal lobe. 4. Scattered remote microhemorrhages in the left temporal lobe, bilateral parietal and frontal lobes. Dictated by David Alvares MD @ 04/29/2024 4:16:21 PM (Electronically Signed)
--- NOTE | 2024-04-29 09:40 | ED.GENADULT ---
HPI - General Adult General Chief complaint: Neuro Symptoms/Altered Deficit Stated complaint: is currently having a stroke Time Seen by Provider: 04/29/24 09:36 History of Present Illness HPI narrative: This 78-year-old female comes in reporting difficulty forming words upon awakening this morning. She is understandable but seems to work harder to put words together. She does not have any slurring of her speech. She does not report any unilateral weakness or altered sensation. She does have a history of a small stroke that occurred 8 years ago and is taking Plavix. Her last known well was last night. A stroke code was initiated upon arrival. Related Data Home Medications ?Medication ?Instructions ?Recorded ?Confirmed acetaminophen 500 mg tablet 1,000 mg PO Q6H PRN 07/28/22 04/25/24 (Tylenol Extra Strength) folic acid 1 mg tablet 1 mg PO DAILY 04/04/23 04/25/24 magnesium oxide 400 mg (241.3 mg 400 mg PO BID 04/10/23 04/25/24 magnesium) tablet clindamycin phosphate 1 % topical 1 applic topical DAILY 09/20/23 04/25/24 gel, once daily insulin glargine 100 unit/mL (3 16 - 18 unit subcut QAM 11/22/23 04/25/24 mL) subcutaneous pen minoxidil 2.5 mg tablet 2.5 mg PO DAILY 03/25/24 04/25/24 atorvastatin 10 mg tablet 10 mg PO HS 04/20/24 04/25/24 calcium 500 mg (as 1 tab PO DAILY 04/20/24 04/25/24 carbonate)-vitamin D3 10 mcg (400 unit) tablet (Calcium 500 + D) glucagon 1 mg solution for 1 mg IM DAILY 04/20/24 04/25/24 injection (Glucagon Emergency Kit) oxycodone 5 mg tablet 5 - 10 mg PO Q4H PRN pain 04/20/24 04/25/24 Previous Rx's ?Medication ?Instructions ?Recorded carvedilol 6.25 mg tablet 6.25 mg PO BID #180 tabs 06/23/22 gabapentin 300 mg capsule 300 mg PO BID #180 caps 08/17/23 clobetasol 0.05 % topical ointment 1 applic topical .twice weekly 12 10/06/23 months #30 grams timolol maleate 0.5 % eye drops 1 drp ophthalmic (eye) HS #5 mL 10/19/23 pen needle, diabetic 31 gauge x #300 ea 12/12/23 3/16 (BD Ultra-Fine Mini Pen Needle) clopidogrel 75 mg tablet 75 mg PO DAILY #90 tabs 12/27/23 eszopiclone 2 mg tablet (Lunesta) 2 mg PO QHS #90 tabs 01/04/24 beclomethasone dipropionate 80 2 inh PO BID #10.6 grams 01/08/24 mcg/actuation HFA breath activated aerosol (Qvar RediHaler) insulin aspart U-100 100 unit/mL 15 unit (0.15 mL) subcut TIDWM #15 01/29/24 (3 mL) subcutaneous pen (Novolog mL FlexPen U-100 Insulin aspart) omeprazole 20 mg capsule,delayed 20 mg PO DAILY #90 caps 01/29/24 release fluticasone propionate 50 2 spray intranasal BID #16 grams 02/29/24 mcg/actuation nasal spray,suspension (Allergy Relief (fluticasone)) albuterol sulfate 90 mcg/actuation 2 - 4 puff inhalation Q4-6H PRN 04/01/24 aerosol inhaler shortness of breath or wheezing #6.7 grams flash glucose sensor (FreeStyle #2 kits 04/08/24 Daja 14 Day Sensor kit) amoxicillin 875 mg-potassium 1 tab PO Q12H #20 tabs 04/22/24 clavulanate 125 mg tablet doxycycline hyclate 100 mg tablet 100 mg PO BID #20 tabs 04/22/24 losartan 50 mg tablet 50 mg PO DAILY #30 tabs 04/22/24 potassium chloride 10 mEq 20 meq (2 x 10 mEq) PO DAILY #60 04/22/24 capsule,extended release caps torsemide 20 mg tablet 20 mg PO DAILY #30 tabs 04/22/24 valacyclovir 1 gram tablet 1,000 mg PO BID #4 tabs 04/25/24 Allergies Allergy/AdvReac Type Severity Reaction Status Date / Time hazelnut Allergy Severe Throat Verified 04/29/24 10:07 closes and hives Sulfa (Sulfonamide Allergy Severe Anaphylaxis Verified 04/29/24 10:07 Antibiotics) adhesive Allergy Unknown Verified 04/29/24 10:07 cantaloupe Allergy Unknown Verified 04/29/24 10:07 codeine AdvReac Mild Nausea and Verified 04/29/24 10:07 Vomiting Gluten Meal AdvReac Unknown GI Uncoded 04/29/24 10:07 intolerance Review of Systems Status of ROS: Reports: 10 or more systems reviewed and unremarkable except as noted in History and below Narrative: Constitutional: No fevers, no weight gain or loss. Eyes: No discharge. No vision changes. HENT: No congestion, no sore throat, no ear pain. Cardiovascular: No chest pain, no palpitations. Respiratory: No shortness of breath, no wheezes, no cough. Gastrointestinal: No abdominal pain, no vomiting, no diarrhea. Genitourinary: No dysuria, no hematuria. Musculoskeletal: Normal range of motion. Skin: No rashes, no pruritis. Neurological: No dizziness, weakness, sensory change. Difficulty forming words as described above. Endo/Heme/Allergies: No bruising or bleeding. No polydipsia. Pysch: no suicidality, no anxiety, no insomnia. All other systems reviewed and are negative. [facility] Medical History (Updated 04/29/24 @ 16:48 by John Akins MD) Heart failure with preserved ejection fraction ?I50.30 - Unspecified diastolic (congestive) heart failure (ICD-10) Aortic stenosis ?I35.0 - Nonrheumatic aortic (valve) stenosis (ICD-10) Anxiety ?F41.9 - Anxiety disorder, unspecified (ICD-10) Heart murmur ?R01.1 - Cardiac murmur, unspecified (ICD-10) Health care directive on file (09/24/20) ?Z78.9 - Other specified health status (ICD-10) Adenomatous colon polyp ?D12.6 - Benign neoplasm of colon, unspecified (ICD-10) Gluteal pain ?M79.18 - Myalgia, other site (ICD-10) Lymphedema of breast ?I89.0 - Lymphedema, not elsewhere classified (ICD-10) Microalbuminuria due to type 2 diabetes mellitus ?E11.29 - Type 2 diabetes mellitus with other diabetic kidney complication (ICD-10) ?R80.9 - Proteinuria, unspecified (ICD-10) Type 2 diabetes mellitus (07/08/09) ?E11.9 - Type 2 diabetes mellitus without complications (ICD-10) History of ischemic stroke ?Z86.73 - Personal history of transient ischemic attack (TIA), and cerebral infarction without residual deficits (ICD-10) Anemia of chronic disease ?D63.8 - Anemia in other chronic diseases classified elsewhere (ICD-10) History of upper gastrointestinal bleeding ?Z87.19 - Personal history of other diseases of the digestive system (ICD-10) Breast cancer, right breast ?C50.911 - Malignant neoplasm of unspecified site of right female breast (ICD-10) History of hemorrhoids ?Z87.19 - Personal history of other diseases of the digestive system (ICD-10) History of breast cancer ?Z85.3 - Personal history of malignant neoplasm of breast (ICD-10) Rosacea (07/08/09) ?L71.9 - Rosacea, unspecified (ICD-10) Psoriasis (12/23/11) ?L40.9 - Psoriasis, unspecified (ICD-10) Pelvic floor dysfunction in female (2018) ?M62.89 - Other specified disorders of muscle (ICD-10) Obstructive sleep apnea syndrome (2018) ?G47.33 - Obstructive sleep apnea (adult) (pediatric) (ICD-10) Irritable bowel syndrome ?K58.9 - Irritable bowel syndrome without diarrhea (ICD-10) Hypomagnesemia ?E83.42 - Hypomagnesemia (ICD-10) Essential hypertension ?I10 - Essential (primary) hypertension (ICD-10) GERD (gastroesophageal reflux disease) ?K21.9 - Gastro-esophageal reflux disease without esophagitis (ICD-10) Chronic low back pain ?M54.50 - Low back pain, unspecified (ICD-10) ?G89.29 - Other chronic pain (ICD-10) Chronic insomnia ?F51.04 - Psychophysiologic insomnia (ICD-10) Chronic hyponatremia ?E87.1 - Hypo-osmolality and hyponatremia (ICD-10) Osteoporosis (~09/2021) ?M81.0 - Age-related osteoporosis without current pathological fracture (ICD-10) Asthma (07/08/09) ?J45.909 - Unspecified asthma, uncomplicated (ICD-10) Hyperplastic polyp of intestine ?K63.5 - Polyp of colon (ICD-10) History of depression (2001) ?Z86.59 - Personal history of other mental and behavioral disorders (ICD-10) Surgical History History of lumbar laminectomy for spinal cord decompression ?Z98.890 - Other specified postprocedural states (ICD-10) S/P breast lumpectomy (11/2021) ?Z98.890 - Other specified postprocedural states (ICD-10) History of hemorrhoidectomy ?Z98.890 - Other specified postprocedural states (ICD-10) History of basal cell carcinoma excision ?Z98.890 - Other specified postprocedural states (ICD-10) ?Z85.828 - Personal history of other malignant neoplasm of skin (ICD-10) History of foot surgery ?Z98.890 - Other specified postprocedural states (ICD-10) Hx of decompressive lumbar laminectomy ?Z98.890 - Other specified postprocedural states (ICD-10) History of cataract surgery ?Z98.49 - Cataract extraction status, unspecified eye (ICD-10) History of carpal tunnel release ?Z98.890 - Other specified postprocedural states (ICD-10) 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) ?Z96.659 - Presence of unspecified artificial knee joint (ICD-10) History of open reduction and internal fixation (ORIF) procedure (07/16/19) ?Z98.890 - Other specified postprocedural states (ICD-10) History of hysterectomy (07/08/09) ?Z90.710 - Acquired absence of both cervix and uterus (ICD-10) History of breast biopsy (07/08/09) ?Z98.890 - Other specified postprocedural states (ICD-10) History of blepharoplasty (07/08/09) ?Z98.890 - Other specified postprocedural states (ICD-10) History of bladder surgery (02/08/10) ?Z98.890 - Other specified postprocedural states (ICD-10) Family History Mother Diabetes Coronary artery disease Stroke Social History (Updated 04/19/24 @ 20:44 by Coleman Gonzalez MD) Narrative: 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 History of tobacco use She does not use recreational drugs. She rarely drinks alcohol. She has 1 biologic child, and 4 adopted children. Full code , Oren, healthcare power of energy attorney What is your current living situation?: I presently have a place to live Problems where you live: no known problems Problems where you live details: none In the past 12 months, utilities in danger of being shut off: no In past 12 months, lack of transportation kept you from medical appts, meetings, work, or getting things needed for daily living: no In the past 12 mos, have been you worried that your food would run out before you had money to buy more?: never true In the past 12 mos, the food you bought just didn't last and you didn't have money to buy more?: never true Highest level of school completed/degree received: Master's degree Smoking Status: Never smoker Do you use any of these nicotine containing products: None Second hand tobacco smoke exposure: No How often do you have a drink containing alcohol: never How often do you have six or more drinks on one occasion: Never AUDIT-C Alcohol total score: 0 Non-prescribed substance use: denies use Caffeine: No How often does anyone, including family, friends and others, physically hurt you: never How often does anyone, including family, friends and others, insult or talk down to you: never How often does anyone, including family, friends and others, threaten you with harm: never How often does anyone, including family, friends and others, scream or curse at you: never Little interest or pleasure in doing things: not at all Feeling down, depressed, or hopeless: not at all Are you using contraception or practicing any form of control: No service: No Exam Narrative: Exam Narrative: Constitutional: Well-developed, well-nourished, no acute distress. HEENT: Normocephalic, atraumatic. Neck: Normal range of motion. Nontender. Supple. Heart: Regular. No murmurs. Normal rate. Intact distal pulses. Lungs: Clear to auscultation. No chest discomfort. No wheezes, rhonchi, or rales. Abdomen: Normal bowel sounds. Nontender. No rebound tenderness. Genitalia: Deferred. Back: No midline tenderness. Normal range of motion. Extremities: Normal range of motion. No injury. Skin: Intact. No rash. Warm. No erythema or pallor. Neurologic: The patient is understandable but seems to have more effort involved in forming words. No altered sensation. No weakness. Alert and oriented. No facial asymmetry. Tongue is midline. [id number] is normal. No pronator drift. Filing Clerk strength is equal bilaterally. Able to raise each leg from the bed. Psychiatric: No suicidality. No anxiety or depression. No insomnia. Nursing notes and vitals signs are reviewed. Const: Vital Signs, click to edit/add: Vital Signs - 24 hr 04/29/24 09:31 04/29/24 10:31 04/29/24 10:46 Pulse Rate Pulse Rate [Left P ulse Oximeter] 80 Respiratory Rate 18 Blood Pressure 150/88 H 145/123 H Blood Pressure [Ri ght Upper Arm] 179/88 H Pulse Oximetry 97 Oxygen Delivery Me thod Room Air 04/29/24 11:01 04/29/24 11:17 04/29/24 11:33 Pulse Rate 71 Pulse Rate [Left P ulse Oximeter] Respiratory Rate Blood Pressure 156/91 H 136/126 H 164/76 H Blood Pressure [Ri ght Upper Arm] Pulse Oximetry 99 Oxygen Delivery Me thod 04/29/24 11:34 04/29/24 11:45 04/29/24 11:46 Pulse Rate 69 72 65 Pulse Rate [Left P ulse Oximeter] Respiratory Rate Blood Pressure 151/79 H Blood Pressure [Ri ght Upper Arm] Pulse Oximetry 99 97 98 Oxygen Delivery Me thod 04/29/24 12:02 04/29/24 12:16 04/29/24 12:40 Pulse Rate 64 Pulse Rate [Left P ulse Oximeter] Respiratory Rate Blood Pressure 162/77 H 153/80 H Blood Pressure [Ri ght Upper Arm] Pulse Oximetry 92 Oxygen Delivery Me thod 04/29/24 12:45 04/29/24 12:46 04/29/24 12:46 Pulse Rate 63 65 65 Pulse Rate [Left P ulse Oximeter] Respiratory Rate Blood Pressure 169/81 H 169/81 H Blood Pressure [Ri ght Upper Arm] Pulse Oximetry 97 97 97 Oxygen Delivery Me thod 04/29/24 12:47 04/29/24 13:00 04/29/24 13:01 Pulse Rate 63 64 64 Pulse Rate [Left P ulse Oximeter] Respiratory Rate Blood Pressure 157/72 H Blood Pressure [Ri ght Upper Arm] Pulse Oximetry 99 98 96 Oxygen Delivery Me thod 04/29/24 13:15 04/29/24 13:16 04/29/24 13:37 Pulse Rate 61 61 79 Pulse Rate [Left P ulse Oximeter] Respiratory Rate Blood Pressure 164/74 H 161/93 H Blood Pressure [Ri ght Upper Arm] Pulse Oximetry 100 94 95 Oxygen Delivery Me thod 04/29/24 13:38 04/29/24 13:46 04/29/24 14:01 Pulse Rate 80 Pulse Rate [Left P ulse Oximeter] Respiratory Rate Blood Pressure 167/83 H 172/86 H Blood Pressure [Ri ght Upper Arm] Pulse Oximetry 99 Oxygen Delivery Me thod 04/29/24 14:16 04/29/24 15:02 04/29/24 15:04 Pulse Rate 70 71 Pulse Rate [Left P ulse Oximeter] Respiratory Rate Blood Pressure 173/160 H 171/85 H Blood Pressure [Ri ght Upper Arm] Pulse Oximetry 99 100 Oxygen Delivery Me thod 04/29/24 15:05 04/29/24 15:18 04/29/24 15:22 Pulse Rate 71 80 Pulse Rate [Left P ulse Oximeter] Respiratory Rate Blood Pressure 137/71 Blood Pressure [Ri ght Upper Arm] Pulse Oximetry 100 100 Oxygen Delivery Me thod Course Vital Signs Vital signs: Initial Vital Signs Pulse Rate 80 04/29/24 09:31 Pulse Rhythm Regular 04/29/24 09:31 Respiratory Rate 18 04/29/24 09:31 Blood Pressure 179/88 H 04/29/24 09:31 Blood Pressure Mean 118 H 04/29/24 09:31 Blood Pressure Position Supine 04/29/24 09:31 Pulse Oximetry 97 04/29/24 09:31 Oxygen Delivery Method Room Air 04/29/24 09:31 Vital Signs Pulse Rate 80 04/29/24 09:31 Respiratory Rate 18 04/29/24 09:31 Blood Pressure 179/88 H 04/29/24 09:31 Pulse Oximetry 97 04/29/24 09:31 Oxygen Delivery Method Room Air 04/29/24 09:31 Pulse Rate 80 04/29/24 15:22 Respiratory Rate 18 04/29/24 09:31 Blood Pressure 137/71 04/29/24 15:18 Pulse Oximetry 100 04/29/24 15:22 Oxygen Delivery Method Room Air 04/29/24 09:31 Medical Decision Making MDM Narrative Medical decision making narrative: This patient comes here with difficulty putting words together. When she does speak it is completely understandable and it makes sense. Her neurologic exam is otherwise completely normal. A stroke code was initiated and Dr. Dao was consulted. He stated that this kind of speech changes not typical of any kind of stroke. He recommended an MRI study nevertheless but stated that she should be able to go home. Labs and imaging results to returned with reassuring findings and the patient's dysarthria symptoms resolved not too long after arriving here. Radiology report for CT imaging of her head is negative. MRI report comes back showing evidence of small infarcts that her acute in the left frontal lobe cortex. Additionally there is some evidence of micro hemorrhaging. I spoke with Dr. Browne who is now the neurologist on-call who recommended admission into the hospital for ongoing assessment and management and workup. I spoke with Lucie Alexander who agrees with this plan and will arrange for admission. Lab Data Labs: Lab Results 04/29/24 04/29/24 Range/Units 09:37 10:30 WBC 7.66 (4.50-11.00) K/uL RBC 3.34 L (4.00-5.20) m/uL Hgb 10.4 L (12.0-16.0) gm/dL Hct 31.7 L (33.0-51.0) % MCV 95 (80-100) fL MCH 31 (26-34) pg MCHC 33 (32-36) gm/dL RDW Coeff of Don 12.6 (11.5-15.5) % Plt Count 318 (140-440) K/uL Neut % (Auto) 82.7 H (42.0-72.0) % Lymph % (Auto) 8.9 L (20-44) % Nance % (Auto) 6.0 (0.0-11.0) % Eos % (Auto) 1.7 (0.0-7.0) % Baso % (Auto) 0.4 (0.0-3.0) % Neut # (Auto) 6.30 (1.7-7.0) K/uL Lymph # (Auto) 0.70 L (0.90-2.90) K/uL Nance # (Auto) 0.50 (0.00-0.90) K/UL Eos # (Auto) 0.13 (0.00-0.50) K/uL Baso # (Auto) 0.03 (0.00-0.30) K/uL Abs Immat Gran (auto) 0.02 (0.00-0.30) K/uL Imm/Tot Granulo (auto) 0.3 % Sodium 131 L (135-149) mmol/L Potassium 3.4 L (3.6-5.1) mmol/L Chloride 91 L (96-114) mmol/L Carbon Dioxide 30 (20-32) mmol/L Anion Gap 10 (7-15) mEq/L BUN 34 H (7-30) mg/dL Creatinine 0.8 (0.5-1.5) mg/dL Estimated Creat Clear 41.33 Estimated GFR 76 ml/min Glucose 229 H (60-115) mg/dL Calcium 9.4 (8.4-10.6) mg/dL POC Troponin I 0.02 (0.01-0.04) ng/ml Imaging Data CT scan - head: Radiologist's impression: 1. No acute intracranial abnormality identified. 2. Minimal cerebral volume loss and findings suggestive of chronic small vessel ischemic change. MR Brain: Radiologist's impression: 1. Few small foci of diffusion restriction and T2 prolongation along the left middle frontal gyrus cortex compatible with acute ischemic infarcts. 2. Mild worsening of moderate supratentorial and infratentorial white matter changes are non-specific but most likely related to small vessel ischemic disease. Mild cerebral volume loss. 3. New small chronic lacunar infarcts in the frontal lobes and left parietal lobe. 4. Scattered remote microhemorrhages in the left temporal lobe, bilateral parietal and frontal lobes. ECG Data Attestation: I personally reviewed and interpreted this ECG as follows: Interpretation: Normal sinus rhythm. Rate is 74 beats per minute. There are no ST or T-wave abnormalities. Discharge Plan Discharge Clinical Impression: Dysarthria, Acute CVA (cerebrovascular accident) Additional Instructions: Continue current plans. Follow up with MD or return if symptoms are recurrent or worsening. Prescriptions: No Action clobetasol 0.05 % ointment 1 applic topical .twice weekly 360 Days Qty: 30 1RF acetaminophen [Tylenol Extra Strength] 500 mg tablet 1,000 mg PO Q6H PRN folic acid 1 mg tablet 1 mg PO DAILY timolol maleate 0.5 % drops 1 drp ophthalmic (eye) HS Qty: 5 2RF Rx Instructions: Apply to fingertips at bedtime. minoxidil 2.5 mg tablet 2.5 mg PO DAILY valacyclovir 1 gram tablet 1,000 mg PO BID Qty: 4 2RF atorvastatin 10 mg tablet 10 mg PO HS Glucagon Emergency Kit (human) 1 mg recon soln 1 mg IM DAILY oxycodone 5 mg tablet 5 - 10 mg PO Q4H PRN (Reason: pain) calcium carbonate-vitamin D3 [Calcium 500 + D] 500 mg-10 mcg (400 unit) tablet 1 tab PO DAILY doxycycline hyclate 100 mg tablet 100 mg PO BID Qty: 20 0RF amoxicillin-pot clavulanate 875-125 mg tablet 1 tab PO Q12H Qty: 20 0RF torsemide 20 mg tablet 20 mg PO DAILY Qty: 30 2RF losartan 50 mg tablet 50 mg PO DAILY Qty: 30 0RF potassium chloride 10 mEq capsule, extended release 20 meq PO DAILY Qty: 60 0RF insulin glargine 100 unit/mL (3 mL) insulin pen 16 - 18 unit SUBCUT QAM clindamycin phosphate 1 % gel, once daily 1 applic topical DAILY carvedilol 6.25 mg tablet 6.25 mg PO BID Qty: 180 0RF magnesium oxide 400 mg (241.3 mg magnesium) tablet 400 mg PO BID gabapentin 300 mg capsule 300 mg PO BID Qty: 180 2RF (DME) pen needle, diabetic [BD Ultra-Fine Mini Pen Needle] 31 gauge x 3/16 needle See Rx Instructions .ROUTE .COMPLEX Qty: 300 1RF Dose Instruction: USE TO INJECT INSULIN UP TO 6 TIMES DAILY. Rx Instructions: USE TO INJECT INSULIN UP TO 6 TIMES DAILY. clopidogrel 75 mg tablet 75 mg PO DAILY Qty: 90 2RF eszopiclone [Lunesta] 2 mg tablet 2 mg PO QHS Qty: 90 3RF Qvar RediHaler 80 mcg/actuation HFA aerosol breath activated 2 inh PO BID Qty: 10.6 8RF omeprazole 20 mg capsule,delayed release(DR/EC) 20 mg PO DAILY Qty: 90 3RF insulin aspart U-100 [Novolog FlexPen U-100 Insulin] 100 unit/mL (3 mL) insulin pen 15 unit subcut TIDWM Qty: 15 7RF Patient Comments: sliding scale base on glucose reading Rx Instructions: based on your scale fluticasone propionate [Allergy Relief (fluticasone)] 50 mcg/actuation spray,suspension 2 spray intranasal BID Qty: 16 9RF Rx Instructions: administer into each nostril albuterol sulfate 90 mcg/actuation HFA aerosol inhaler 2 - 4 puff inhalation Q4-6H PRN (Reason: shortness of breath or wheezing) Qty: 6.7 5RF (DME) FreeStyle Daja 14 Day Sensor Kit See Rx Instructions .Route Qty: 2 5RF Rx Instructions: As directed Follow Up/Referrals: Lina Meléndez MD [Primary Care Provider] - Stand Alone Forms: MyHealth Info Instructions
--- OUTSIDE RECORDS SUMMARY | 2024-04-29 10:25 | XMS_ITS | Clinical Summary ---
Author Organization [facility] Address [address] [place] [address] Care Team Providers Care Processing Rep Name Role Phone Unavailable Primary Care Provider Unavailabl e Source Comments Patient records contain information from all sites at [facility]. For routine questions regarding patient records, call [phone] during business hours, M-F 8:00 AM - 5:00 PM Central Time. Record requests for emergency care only can be directed to [phone] at any time.[facility] Allergies Active Allergy Reactions Criticality [...] from 12/21/2021:Stage Unknown(pT1b, pNX, cM0, G2, ER+, OR+, HER2-, Oncotype DX score: 17) - Unsigned Hyponatremia 03/08/2021 Diabetes Mellitus Type 2 01/31/2009 Overview (11/15/2016): DM II [Diabetes mellitus type II] Hypertensive Chronic Kidney Disease With Stage 1 Through Stage 4 Chronic Kidney Disease, Or Unspecified Chronic Kidney Disease 01/31/2009 Overview (11/15/2016): Hypertension Encounters Date Type Department Care Team Description 03/19/2024 Documentation Division of Nephrology and Hypertension in [place], [place] [address] [place] [address] Joshua Lopez Jr., D.O. 02/06/2024 3:30 PM CDT External Outreach Division of Nephrology and Hypertension in [place], [place] [address] [place] [address] Joshua Lopez Jr., D.O. Hypertensive Chronic Kidney [...] How often do you attend chur or baptism services? More than 4 times per year [...] medical care, and heating? Somewhat hard 02/12/2022 [facility] [place] [facility] - Occupational Stress [...] or slept in a fdc (including now)? 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
--- OUTSIDE RECORDS SUMMARY | 2024-04-29 10:25 | XMS_ITS | Clinical Summary ---
Author Organization [facility] Address [address] [place] [id number] Care Team Providers Care Computer System Validation Specialist Name Role Phone Lina Meléndez MD Primary Care Provider [phone] RamahRhoda I Unavailable Allergies Active Allergy Reactions Criticality [...] Active fluticasone (FLONASE) 50 MCG/ACT nasal spray [place] 2 sprays in nostril daily Active valACYclovir [...] by Conversion Osteoarthritis Overview (12/25/2020): Created by Auto I.D. Annotation: Dec 29 2006 3:46PM - Jojo Faustin: CHRISTIANA Replacement Utility updated for latest IMO load Lower Back Pain Overview (12/25/2020): Created by Auto I.D. Annotation: Dec 29 2006 3:46PM - Jojo [...] AM CDT Legal Sex Female 5:06 AM MANAGED SECURITY SALES CONSULTANT Gender Identity Female 02/24/2020 11:40 AM CDT Sexual Orientation Not on file Last Filed Vital Signs Vital Sign Reading Time Taken Comments Blood Pressure 153/88 08/04/2023 11:00 AM MANAGED SECURITY SALES CONSULTANT Pulse 79 08/04/2023 11:00 AM MANAGED SECURITY SALES CONSULTANT Temperature 36.1 ??C (97 ??F) 08/04/2023 11:00 AM MANAGED SECURITY SALES CONSULTANT Respiratory Rate 18 08/04/2023 11:00 AM MANAGED SECURITY SALES CONSULTANT Oxygen Saturation 100% 08/04/2023 11:00 AM MANAGED SECURITY SALES CONSULTANT Inhaled Oxygen Concentration - - Weight 70.9 kg (156 lb 4.8 oz) 08/04/2023 6:02 A M MANAGED SECURITY SALES CONSULTANT Height 165.1 cm (5' 5) 07/26/2023 1:00 PM MANAGED SECURITY SALES CONSULTANT Body Mass Index 26.01 07/26/2023 1:00 PM MANAGED SECURITY SALES CONSULTANT Plan of Treatment Health Maintenance Due Date [...] Diagnosis Comments COLONOSCOPY Routine 08/04/2023 7:25 AM MANAGED SECURITY SALES CONSULTANT LIPID PROFILE Routine 12/18/2019 HEMOGLOBIN A1C Routine 12/18/2019 from Last 3 Months or Most Recently Relevant to Health Maintenance Results * COLONOSCOPY (08/04/2023 7:25 AM MANAGED SECURITY SALES CONSULTANT) COLONOSCOPY [facility] Patient [...] ?Olympus, Pediatric Colonoscope, Model # PCF-H190DL, ?Censitrac #[id number] was introduced through the ?anus with the [...] criteria for high risk CPT copyright 2021 [employer]. All rights reserved. The codes documented in this report are preliminary and upon vinyl welder and fabricator review may be revised to meet current compliance requirements. EVER ZEE MD 08/04/2023 8:47:30 AM I was physically present for the entire viewing portion of the exam. EVER ZEE MD Number of Addenda: 0 Note Initiated On: 08/04/2023 7:25 AM MRN: ?[id number] Procedure Date: ? 08/04/2023 7:25:15 AM Total Procedure Duration: 0 hours 3 minutes 40 seconds Estimated Blood Loss: ? Scope In: 7:47:47 AM Scope Out: 7:51:27 AM RADIOLOGY RESULTS 08/04/2023 7:25 AM MANAGED SECURITY SALES CONSULTANT us Ever Zee MD PROCEDURES Final Res ult RADIOLOGY RESULTS * Lipid Profile (12/18/2019) Cholesterol 154 90 - 200 mg/dL [facility] Triglycerides 53 40 - 197 mg/dL [facility] HDL Cholesterol 106 >=50 mg/dL [facility] LDL Cholesterol Calculated 37 <100 mg/dL [facility] Blood specimen (specimen) 12/18/2019 Narrative [facility] - 12/18/2019 LAB RESULTS VIRGIL Patient Reported LAB - BLOOD ORDERABLES Final Re sult Performing Organization Address City/[facility]/ZIP Co de Phone Number [facility] [address] [place] [address], [facility] [phone] * (ABNORMAL) Hemoglobin A1c (12/18/2019) Hemoglobin A1C 7.3(A) <=6.9 % [facility] Blood specimen (specimen) 12/18/2019 Narrative [facility] - 12/18/2019 LAB RESULTS VIRGIL us Provider Outside LAB - BLOOD ORDERABLES Final Re sult Performing Organization Address City/[facility]/ZIP Co de Phone Number [facility] [address] [place] [address], [facility] [phone] from Last 3 Months or Most Recently Relevant to Health Maintenance Insurance [facility] MEDICARE [facility] MEDICARE Care Teams Computer System Validation Specialist Relationship Specialty Start Date End Date Lina Meléndez MD [facility] & [address] [phone] PCP - General Internal Medicine 12/26/14 Rhoda Sarabia I [address] [place] [id number] Machine Staker Dietitian, Registered 02/20/20
--- OUTSIDE RECORDS SUMMARY | 2024-04-29 10:25 | XMS_ITS | Referral Summary ---
Author Organization [facility] Address [address] [place] [address] Care Team Providers Care Slp Name Role Phone Lina Meléndez MD Primary Care Provider BonneauRhoda I Unavailable Allergies Active Allergy Reactions Criticality [...] Active fluticasone (FLONASE) 50 MCG/ACT nasal spray [place] 2 sprays in nostril daily Active valACYclovir [...] by Conversion Osteoarthritis Overview (12/25/2020): Created by Fabbeo Annotation: Dec 29 2006 3:46PM - Jojo Faustin: CHRISTIANA Replacement Utility updated for latest IMO load Lower Back Pain Overview (12/25/2020): Created by Fabbeo Annotation: Dec 29 2006 3:46PM - Jojo [...] AM CDT Legal Sex Female 5:06 AM TUNNELLER Gender Identity Female 02/24/2020 11:40 AM CDT Sexual Orientation Not on file Last Filed Vital Signs Vital Sign Reading Time Taken Comments Blood Pressure 153/88 08/04/2023 11:00 AM TUNNELLER Pulse 79 08/04/2023 11:00 AM TUNNELLER Temperature 36.1 ??C (97 ??F) 08/04/2023 11:00 AM TUNNELLER Respiratory Rate 18 08/04/2023 11:00 AM TUNNELLER Oxygen Saturation 100% 08/04/2023 11:00 AM TUNNELLER Inhaled Oxygen Concentration - - Weight 70.9 kg (156 lb 4.8 oz) 08/04/2023 6:02 A M TUNNELLER Height 165.1 cm (5' 5) 07/26/2023 1:00 PM TUNNELLER Body Mass Index 26.01 07/26/2023 1:00 PM TUNNELLER Plan of Treatment Not on file Procedures Procedure Name Priority Date/Time Associated Diagnosis Comments COLONOSCOPY Routine 08/04/2023 7:25 AM TUNNELLER LIPID PROFILE Routine 12/18/2019 HEMOGLOBIN A1C Routine 12/18/2019 from Last 3 Months or Most Recently Relevant to Health Maintenance Results * COLONOSCOPY (08/04/2023 7:25 AM TUNNELLER) Pathologist [facility] COLONOSCOPY [facility] Patient Name: Maryam Cortez ?Procedure [...] ?Olympus, Pediatric Colonoscope, Model # PCF-H190DL, ?Censitrac #[id number] was introduced through the ?anus with the [...] in this report are preliminary and upon side door worker review may be revised to meet current compliance requirements. EVER ZEE MD 08/04/2023 8:47:30 AM I was physically present for the entire viewing portion of the exam. EVER ZEE MD Number of Addenda: 0 Note Initiated On: 08/04/2023 7:25 AM MRN: ?[id number] Procedure Date: ? 08/04/2023 7:25:15 AM Total Procedure Duration: 0 hours 3 minutes 40 seconds Estimated Blood Loss: ? Scope In: 7:47:47 AM Scope Out: 7:51:27 AM RADIOLOGY RESULTS 08/04/2023 7:25 AM TUNNELLER Ever Zee MD PROCEDURES Final Res ult RADIOLOGY RESULTS * Lipid Profile (12/18/2019) Cholesterol 154 90 - 200 mg/dL [facility] Triglycerides 53 40 - 197 mg/dL [facility] HDL Cholesterol 106 >=50 mg/dL [facility] LDL Cholesterol Calculated 37 <100 mg/dL [facility] Blood specimen (specimen) 12/18/2019 Narrative [facility] - 12/18/2019 LAB RESULTS RECTOR Patient Reported LAB - BLOOD ORDERABLES Final Re sult Performing Organization Address City/[facility]/ZIP Co de Phone Number [facility] [address] [place] [address], [facility] [phone] * (ABNORMAL) Hemoglobin A1c (12/18/2019) Hemoglobin A1C 7.3(A) <=6.9 % [facility] Blood specimen (specimen) 12/18/2019 Narrative [facility] - 12/18/2019 LAB RESULTS RECTOR us Provider Outside LAB - BLOOD ORDERABLES Final Re sult Performing Organization Address City/[facility]/ZIP Co de Phone Number [facility] [address] [place] [address], [facility] [phone] from Last 3 Months or Most Recently Relevant to Health Maintenance Insurance [facility] MEDICARE [facility] MEDICARE Care Teams Slp Relationship Specialty Start Date End Date Lina Meléndez MD [facility] & [address] [address] PCP - General Internal Medicine 12/26/14 Rhoda Sarabia I [address] [place] [phone] Sharepoint Engineer Dietitian, Registered 02/20/20
--- OUTSIDE RECORDS SUMMARY | 2024-04-29 10:25 | XMS_ITS | Clinical Summary ---
Author Organization [facility] Address [address] [place] [address] Care Team Providers Care Return Clerk Name Role Phone Lina Meléndez MD Primary Care Provider [phone] Source Comments You are receiving this document as you are listed as the primary care provider,follow-up provider, or the patient has been referred to you for consultation.This is in compliance with the Medicare and[facility] Centercaid EHR Incentive Program,which states Providers who transition their patient to another setting of careor provider of care or refers their patient to another provider of care shouldprovide summary care record for each transition of care or referral. Tachyus Allergies Active Allergy Reactions Criticality Noted Date [...] (07/10/2019): Added automatically from request for surgery [id number] (obstructive sleep apnea) 11/05/2018 Arthritis of [...] Comments Blood Pressure 147/63 07/17/2019 2:34 PM OD GRINDER OPERATOR Pulse 75 07/17/2019 2:34 PM OD GRINDER OPERATOR Temperature 36.7 ??C (98.1 ??F) 07/17/2019 2:34 PM CS T Respiratory Rate 18 07/17/2019 2:34 PM OD GRINDER OPERATOR Oxygen Saturation 99% 07/17/2019 2:34 PM OD GRINDER OPERATOR Inhaled Oxygen Concentration - - Weight 75 kg (165 lb 6.4 oz) 07/16/2019 10:19 AM OD GRINDER OPERATOR Height 165.1 cm (5' 5) 07/16/2019 10:19 AM OD GRINDER OPERATOR Body Mass Index 27.52 07/16/2019 10:19 AM OD GRINDER OPERATOR Plan of Treatment Health Maintenance Due [...] this topic Medical Devices Implanted Type Area Shrimp Peeling Machine Operator Device Identifier Shelf Expiration Date Model / Serial / Lot Chip Anita Brunner 30cc - [id number] Implanted:Qty : 1 on 07/16/2019 by Edelmira Rodriguez MD at [facility] DEVICE Left: SHOULDER Medtronic - [employer] 08/14/2023 [id number] / / [id number] Scr Star Lk Sftp 3.5x48 - [id number] Implanted:Qty : 1 on 07/16/2019 by Edemlira Rodriguez MD at [facility] DEVICE Left: HUMERUS MIDSHAFT DePuy Synthes - Trauma 212.120 / / Scr Cj Sftp Ss 3.5x32 F-Thrd - [id number] Implanted:Qty : 1 on 07/16/2019 by Edelmira Rodriguez MD at [facility] DEVICE Left: HUMERUS MIDSHAFT [employer]ynthes - Trauma 204.832 / / [id number] Plt Prox Hum 3.5x90 6h/3h - [id number] Implanted:Qty : 1 on 07/16/2019 by Edelmira Rodriguez MD at [facility] DEVICE Left: SHOULDER [employer]ynthe[employer] - Trauma 241.901 / / [id number] Scr Cj Sftp Ss 3.5x26 F-Thrd - [id number] Implanted:Qty : 1 on 07/16/2019 by Edelmira Rodriguez MD at [facility] DEVICE Left: HUMERUS MIDSHAFT [employer] Synthes - Trauma 204.826 / / Description:3.5mm 26mm Scr Cj Sftp Ss 3.5x28 F-Thrd - [id number] Implanted:Qty : 1 on 07/16/2019 by Edelmira Rodriguez MD at [facility] DEVICE Left: HUMERUS MIDSHAFT [employer] Synthes - Trauma 204.828 / / Scr Star Lk Sftp 3.5x34 - [id number] Implanted:Qty : 1 on 07/16/2019 by Edelmira Rodriguez MD at [facility] DEVICE Left: HUMERUS MIDSHAFT [employer] Synthes - Trauma 212.113 / / Scr Star Lk Sftp 3.5x36 - [id number] Implanted:Qty : 2 on 07/16/2019 by Edelmira Rodriguez MD at [facility] DEVICE Left: HUMERUS MIDSHAFT [employer] Synthes - Trauma 212.115 / / Scr Star Lk Sftp 3.5x40 - [id number] Implanted:Qty : 2 on 07/16/2019 by Edelmira Rodriguez MD at [facility] DEVICE Left: HUMERUS MIDSHAFT [employer] Synthes - Trauma 212.117 / / Scr Star Lk Sftp 3.5x45 - [id number] Implanted:Qty : 1 on 07/16/2019 by Edelmira Rodriguez MD at [facility] DEVICE Left: HUMERUS MIDSHAFT De[employer]uy Synthes - Trauma 212.119 / / Scr Star Lk Sftp 3.5x46 - [id number] Implanted:Qty : 1 on 07/16/2019 by Edelmira Rodriguez MD at [facility] DEVICE Left: HUMERUS MIDSHAFT De[employer]uy Synthes - Trauma 212.136 / / Procedures Procedure Name Priority Date/Time Associated Diagnosis Comments BASIC METABOLIC PANEL Routine 07/17/2019 7:49 AM OD GRINDER OPERATOR HGB A1C Routine 07/17/2019 7:49 AM OD GRINDER OPERATOR from Last 3 Months or Most Recently Relevant to Health Maintenance Results * (ABNORMAL) Basic Metabolic Panel (IN AM) (07/17/2019 7:49 AM OD GRINDER OPERATOR) Sodium 131(L) 136 - 145 mmol/L 07/17/2019 8:42 AM OD GRINDER OPERATOR [facility] Potassium 3.3(L) 3.5 - 5.1 mmol/L 07/17/2019 8:42 AM OD GRINDER OPERATOR [facility] Chloride 98 98 - 109 mmol/L 07/17/2019 8:42 AM OD GRINDER OPERATOR [facility] CO2 25 20 - 29 mmol/L 07/17/2019 8:42 AM OD GRINDER OPERATOR [facility] Anion Gap 8 7 - 16 mmol/L 07/17/2019 8:42 AM OD GRINDER OPERATOR [facility] Calcium 8.4 8.4 - 10.4 mg/dL 07/17/2019 8:42 AM OD GRINDER OPERATOR [facility] BUN 16 7 - 26 mg/dL 07/17/2019 8:42 AM OD GRINDER OPERATOR [facility] Creatinine 0.65 0.55 - 1.02 mg/dL 07/17/2019 8:42 AM OD GRINDER OPERATOR [facility] GFR, Estimated >60 >60 mL/min/1.7 3m2 07/17/2019 8:42 AM OD GRINDER OPERATOR [facility] GFR, Est If >60 >60 mL/min/1.7 3m2 07/17/2019 8:42 AM OD GRINDER OPERATOR [facility] Glucose 187(H) 70 - 100 mg/dL 07/17/2019 8:42 AM OD GRINDER OPERATOR [facility] Comment:The given reference range is for the fasting state. Non-fasting reference range for glucose is 70 - 180 mg/dL. Blood Venipuncture / Unknown 07/17/2019 7:49 AM OD GRINDER OPERATOR 07/17/2019 7:56 AM OD GRINDER OPERATOR Larisa Gaines MD LAB_1 Performing Organization Address [facility] de Phone Number [facility] [address] * (ABNORMAL) Hemoglobin A1C Glycosylated (IN AM) (07/17/2019 7:49 AM OD GRINDER OPERATOR) Hemoglobin A1C 6.7(H) <=5.6 % 07/17/2019 1:39 PM OD GRINDER OPERATOR [facility] Blood Venipuncture / Unknown 07/17/2019 7:49 AM OD GRINDER OPERATOR 07/17/2019 7:56 AM OD GRINDER OPERATOR Narrative [facility] - 07/17/2019 1:39 PM OD GRINDER OPERATOR For patients not previously diagnosed with diabetes: 5.7-6.4%: Increased risk for diabetes 6.5% and greater: Diagnostic for diabetes For patients diagnosed with diabetes: <8.0%: Goal of therapy for ages 18-75 Clinicians may recommend a higher or lower goal for specific individuals. Larisa Gaines MD LAB_1 Performing Organization Address [facility] Phone Number [facility] [address] from Last 3 Months or Most Recently Relevant to Health Maintenance Advance Directives * Full Code (Latest Code Status on File) Date Activated Date Inactivated Comments 07/16/2019 4:18 PM 07/17/2019 5:47 PM Care Teams Return Clerk Relationship Specialty Start Date End Date Lina Meléndez MD [address] [address] PCP - General Internal Medicine 12/20/18
--- OUTSIDE RECORDS SUMMARY | 2024-04-29 10:25 | XMS_ITS | Clinical Summary ---
Author Organization [facility] Address [place], [place] [address] Care Team Providers Care Produce Service Team Member Name Role Phone Lina Meléndez MD Primary Care Provider [phone] Allergies Active Allergy Reactions Criticality Noted Date [...] bedtime. 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IntelliBattE) 2 Active continuous glucose monitor SENSOR KIT (IntelliBattE) 2 Active bd insulin pen needle uf [...] SQUARED TOE POST OP SHOE, MEDIUM, REF: [phone] 1 Each 4 Active nystatin (MYCOSTATIN) 100,000 [...] Encounters Date Type Department Care Team Description 04/26/2024 Travel 04/24/2024 9:50 AM CDT Ancillary Procedure [facility] [address] [place] [address] Arrived 04/24/2024 9:30 AM CDT Office Visit [facility] [address] [place] [address] Misael Richardson DPM Foot Problem (DOS: 04/15/24 left foot) 04/24/2024 Travel 04/22/2024 3:00 PM CDT Ancillary Procedure [facility] [address] [place] [address] 04/22/2024 Telephone [facility] [address] [facility] [place] [address] Misael Richardson DPM Appointment 04/19/2024 Orders Only [facility] Scanner 1 scan: (1-Ord) [facility], FOOT LT MIN 3V, 04/19/2024 04/19/2024 Telephone [facility] [address] [place] [address] Rex Fink DPM Questions 04/19/2024 Nurse Triage [facility] [address] [place] [address] Rex Fink DPM Post-op Pain/problem 04/17/2024 3:30 PM CDT Ancillary Procedure [facility] [address] [place] [address] 04/17/2024 3:15 PM CDT Office Visit [facility] [address] [place] [address] Rex Fink DPM Post-op (Left foot, DOS 04/15/24, initial post op) 04/16/2024 10:20 AM CDT Office Visit [facility] [address] [place] [address] Stevan Nixon MD Musculoskeletal Problem (Consultation for RIGHT Hip Pain ) 04/16/2024 Telephone [facility] [address] [place] [address] Rex Fink DPM Surgical Followup 04/16/2024 Travel 04/15/2024 8:00 AM CDT Office Visit [facility] at [facility] [address] [facility] [place] [id number] Rex Fink DPM Surgery Scheduled 04/15/2024 Orders Only [facility] Scanner 1 scan: (1-Ord) [facility], XR FOOT LT 2V, 04/15/2024 04/15/2024 Orders Only [facility] Scanner 1 scan: (1-Ord) [facility], MPJ FUSION/HAMMERTOE REPAIR, 04/15/2024 04/12/2024 Travel 04/10/2024 Telephone [facility] [address] [facility] [address] [place] [address] Gabriela Garcia MD Appointment Request 04/10/2024 Travel 04/08/2024 Telephone [facility] [address] [facility] [address] [place] [address] Lalito Perdue DO SURGERY RESCHEDULE 04/03/2024 3:00 PM CDT Ancillary Procedure [facility] [address] [place] [address] 04/03/2024 2:45 PM CDT Office Visit [facility] [address] [place] [address] Rex Fink DPM Follow Up (Left foot ) 04/03/2024 Travel 04/02/2024 2:20 PM CDT Ancillary Procedure [facility] [address] [facility] [address] [place] [address] 04/02/2024 2:00 PM CDT Office Visit [facility] [address] [facility] [address] [place] [address] Lalito Perdue DO Hip Pain/problem (Right Hip Pain) 04/02/2024 Travel 04/02/2024 Nurse Triage [facility] Centralized Nurse Triage Lina Meléndez MD Lower Back Pain (Severe x 4 to 5 days.) 03/29/2024 Travel 03/28/2024 Travel 03/19/2024 3:45 PM CDT Ancillary Procedure [facility] [address] [place] [address] 03/19/2024 3:30 PM CDT Office Visit [facility] [address] [place] [address] Rex Fink DPM Consult (Left final surgical consult, DOS 04/01/24/Right foot pain since 03/18/24) 03/19/2024 Travel 03/14/2024 3:10 PM CDT Ancillary Procedure [facility] [address] [facility] [address] [place] [address] 03/14/2024 2:45 PM CDT Office Visit [facility] [address] [facility] [address] [place] [address] Lalito Perdue DO Knee Pain/problem (Left knee pain) 03/14/2024 Orders Only [facility] [address] [facility] [address] [place] [address] Lalito Perdue, <No scans attached> 03/14/2024 Travel 03/12/2024 Medical Messaging [facility] [address] [place] [address] Rex Fink DPM left foot surgery 03/12/2024 Telephone [facility] [address] [facility] [address] [place] [address] Lalito Perdue DO CALLBACK (scheduling left knee surgery ) 03/07/2024 2:45 PM CDT Office Visit [facility] [address] [facility] [address] [place] [address] Schuett, Lalito Bean, DO Follow Up (Pain due to total left knee replacement) 03/07/2024 Travel 02/20/2024 3:00 PM CDT Office Visit [facility] [address] [place] [address] Lalito Perdue, Knee Pain/problem (Left Knee Pain S/P Total Knee Arthroplasty, DOS: 2003) 02/20/2024 Travel 02/13/2024 1:45 PM CDT Office Visit [facility] [address] [place] [address] Rex Fink, DPMaria De Jesus Consult (Left foot pain) 02/13/2024 Travel from Last 3 Months Immunizations Name [...] Sex Assigned at Female 08/31/2020 9:33 AM CADWORX PIPING DESIGNER Gender Identity Female 08/31/2020 9:33 AM CADWORX PIPING DESIGNER Sexual Orientation Straight 08/31/2020 9: 33 AM CADWORX PIPING DESIGNER Obstetrics History Para Term AB IAB SAB [...] 165.1 cm (5' 5) 06/07/2023 2:05 PM CADWORX PIPING DESIGNER Body Mass Index 26.99 06/07/2023 2:05 PM CADWORX PIPING DESIGNER Plan of Treatment Upcoming Encounters Date Type Department Care Team (Late st Contact Info) Description 05/01/2024 1:30 PM CADWORX PIPING DESIGNER Office Visit [facility] [address] [place] [address] Rex Fink DPM [address] [place] [address] 05/21/2024 3:15 PM CADWORX PIPING DESIGNER Office Visit [facility] [address] [address] [place] [address] [place] [address] 05/29/2024 3:30 PM CADWORX PIPING DESIGNER Office Visit [facility] [address] [place] [address] Rex Fink DPM [address] [place] [address] 06/07/2024 7:15 AM CADWORX PIPING DESIGNER Hospital Encounter [facility] [address] [place] [address] [place] [address] [place] [address] 06/07/2024 7:15 AM CADWORX PIPING DESIGNER - 06/07/2024 11:01 AM CADWORX PIPING DESIGNER Surgery [facility] [address] [place] [address] [place] [address] [place] [address] ARTHROPLASTY REVISION KNEE 06/18/2024 11:15 AM CADWORX PIPING DESIGNER Office Visit [facility] [address] [facility] [address] [place] [address] [place] [address] [place] [address] 06/27/2024 2:30 PM CADWORX PIPING DESIGNER Office Visit [facility] [address] [place] [address] Francesco Huffman MD [address] [place] [address] 08/08/2024 3:15 PM CADWORX PIPING DESIGNER Office Visit [facility] [address] [facility] [address] [place] [address] [place] [address] [place] [address] Scheduled Procedures Name Priority Associated Diagnoses Date/Ti me ARTHROPLASTY REVISION KNEE Elective Mechanical loosening of internal left knee prosthetic joint, subsequent encounter H/O total knee replacement, left 06/07/2024 7:15 AM CADWORX PIPING DESIGNER Health Maintenance Due Date Last Done Comments [...] history exists Medical Devices Implanted Type Area Home Care Provider Device Identifier Shelf Expiration Date Model / Serial / Lot [id number] 1-4mm 30cc Medtronic Chips Canclls Freeze Dried Implanted:Qty: 1 on 12/06/2016 by Gurinder Mc MD at [facility] Explanted:at [facility] (Quantity not on file) Spine Medtronic Spine/Ortho 08/24/2021 [id number]# / [id number] / Spacer Lmbr [id number] Zyston Convex Stra Plif - [id number] Implanted:Qty: 1 on 12/06/2016 by Gurinder Mc MD at [facility] Spine Meka [employer] 07/26/2026 [id number] # / / [id number] ne Matrix 3cc [place] Dbf Putty Dbm Implanted:Qty: 1 on 12/06/2016 by Gurinder Mc MD at [facility] Explanted:at [facility] (Quantity not on file) Spine Medtronic Spine/Ortho 09/08/2018 [id number]# / [id number] / Screw Lmbr Post 5.5x40mm Vitality Va - [id number] Implanted:Qty: 1 on 12/06/2016 by Gurinder Mc MD at [facility] Spine [employer] Spine 07.67034. 032# / / Screw Lmbr Post 5.5x45mm Vitality Va - [id number] Implanted:Qty: 2 on 12/06/2016 by Gurinder Mc MD at [facility] Spine [employer] Spine 07.66955. 033# / / Set Screw Lmbr 5.5-6mm Vitality Shear Off - [id number] Implanted:Qty: 4 on 12/06/2016 by Gurinder Mc MD at [facility] Spine [employer] Spine 07.71504. 001# / / Avni Lmbr 40x5.5mm Vitality Cvd Titnm - [id number] Implanted:Qty: 2 on 12/06/2016 by Gurinder Mc MD at [facility] Spine [employer] Spine 07.38847. 005# / / Spacer Lmbr [id number] Zyston Convex Stra Plif - [id number] Implanted:Qty: 1 on 12/06/2016 by Gurinder Mc MD at [facility] Spine [employer] [id number] # / / Screw Lmbr Post 6.5x40mm Vitality Va - [id number] Implanted:Qty: 1 on 12/06/2016 by Gurinder Mc MD at [facility] Spine [employer] Spine 07.68027. 074# / / .[id number] Double Ended K-Wire Implanted:Qty: 2 on 12/03/2018 by Rex Fink DPM at [facility] Right: Foot N/A / / Interstim Basic Evaluation Lead Implanted:Qty: 1 on 09/28/2022 by Michelle Colmenares DO at [facility] 01/26/2024 [id number] / / [id number] Interstim Basic Evaluation Kit Implanted:Qty: 1 on 09/28/2022 by Michelle Colmenares DO at [facility] 08/27/2023 [id number] / / [id number] Interstim X Surescan Mri Lead And Smart Program Administrator - [id number] Implanted:Qty: 1 on 10/18/2022 by Michelle Colmenares DO at [facility] Right: Buttock Medtronic Pain Therapy 02/07/2024 [id number] / [id number] / Lead Kit 4.32mm Spacing 28cm Length Interstim - [id number] Implanted:Qty: 1 on 10/18/2022 by Michelle Colmenares DO at [facility] Right: Buttock Medtronic Pain Therapy 01/17/2024 [id number] / / [id number] Envlp Neuro Tyrx Absorb Antibacterial - [id number] Implanted:Qty: 1 on 10/18/2022 by Michelle Colmenares DO at [facility] Right: Buttock Medtronic 03/20/2023 [id number] / / [id number] Spacer Lmbr [id number] Zyston Convex Stra Tlif - [id number] Implanted:Qty: 1 on 05/03/2023 by Gurinder Mc MD at [facility] N/A: Spine [employer] 09/13/2026 [id number] / / [id number] Avni Lmbr 95x5.5mm Vitality Cvd Titnm - [id number] Implanted:Qty: 1 on 05/03/2023 by Gurinder Mc MD at [facility] N/A: Spine [employer] Spine 07.96648. 016 / / Avni Lmbr 90x5.5mm Vitality Cvd Titnm - [id number] Implanted:Qty: 1 on 05/03/2023 by Gurinder Mc MD at [facility] N/A: Spine [employer] Spine 07.34100. 015 / / Set Screw Lmbr 5.5-6mm Vitality Torque - [id number] Implanted:Qty: 8 on 05/03/2023 by Gurinder Mc MD at [facility] N/A: Spine [employer] Spine 07.75105. 001 / / Screw Spinal 4.5x45mm Poly Tl Implanted:Qty: 1 on 05/03/2023 by Gurinder Mc MD at [facility] N/A: Spine [id number] / / Description:SCREW SPINAL 4.5 X45MM POLY TL Screw Spinal 5.5x45mm Poly Tl Implanted:Qty: 3 on 05/03/2023 by Gurinder Mc MD at [facility] N/A: Spine [id number] / / Description:SCREW SPINAL 5.5 X45MM POLY TL Bone 1-4mm 60cc Medtronic Fine Canclls Freeze Dried - [id number] Implanted:Qty: 1 on 05/03/2023 by Gurinder Mc MD at [facility] N/A: Spine Medtronic Spine/Ortho 09/21/2026 [id number] / [id number] / Bone Matrix 6cc Emelina Dbf Putty [facility] - [id number] Implanted:Qty: 1 on 05/03/2023 by Gurinder Mc MD at [facility] N/A: Spine Medtronic Spine/Ortho 04/11/2025 [id number] / [id number] / Procedures Procedure Name Priority Date/Time Associated Diagnosis Comments XR FOOT 3 VIEWS LEFT Routine 04/24/2024 9:53 AM CDT S/P foot surgery, left ECHO TTE COMPLETE WO CONTRAST Routine 04/22/2024 [...] Results * XR FOOT 3 VIEWS LEFT (04/24/2024 9:53 AM CDT) Only the most recent of4 resultswithin the time period is included. Anatomical Region Laterality Modality FEET, FOOT L Computed Radiogr aphy Narrative 04/27/2024 9:20 AM CDT Table formatting from the original result was not included. Maryam Crisostomo is a 78 y.o. female Provider: ?? Misael Richardson DPM Examination: X-ray of the left foot, 3 Views Indication: ??ICD-10-CM ?? 1. S/P foot surgery, left ??Z98.890 ?? Findings: Three views of the left foot, ??Stable arthrodesis of the first metatarsophalangeal joint with screw and plate fixation. Screw fixation to the second and third interphalangeal joint hammer toe correction. No acute findings. Misael Richardson DPM .................... ??04/27/2024 ?? 9:19 AM Misael Richardson DPM GENERAL IMAGING * ECHO TTE COMPLETE WO CONTRAST (04/22/2024 1:07 PM CDT) AORTIC VALVE MEAN PG 16 mmHg EJECTION FRACTION 71 % PEAK TR VELOCITY 3.1 m/s LVEDD 5.1 cm EJECTION FRACTION 65 - 70% Anatomical Region Laterality Modality Ultrasound 04/22/2024 12:2 6 PM CDT Narrative 04/22/2024 2:02 PM CDT ECHOCARDIOGRAM MARYAM CRISOSTOMO ? Accession#: ?? [id number] : ?1945 78 years Study Date: ?? 04/22/2024 12:26:04 PM Gender: F ?BP: ? 117/81 mmHg Height: 165.00 cm ?BSA: ?1.84 m? ? ? Weight: 77.00 kg ? Tech: ? MBF ? Referring MD: PETAR GONZALEZ Site: ? [facility] Reading Location: [facility] Patient Location: Inpatient. Procedure: 2D, Color [...] . This study was interpreted by an [facility] accredited facility. CC: HIM (med records) [facility], Med/Surg - IP [facility]. ??Final ?? Procedure Note David Delaney MD - 04/22/2024 ECHOCARDIOGRAM MARYAM CRISOSTOMO : 1945 78 years Study Date: 04/22/2024 12:26:04 PM Gender: F BP: 117/81 mmHg Height: 165.00 cm BSA: 1.84 m? ? ? Weight: 77.00 kg Tech: EKATERINA Referring MD: PETAR GONZALEZ Site: [facility] Reading Location: [place] [facility] Patient Location: Inpatient. Procedure: 2D, Color Doppler [...] . This study was interpreted by an [facility] accredited facility. CC: [facility] (med records) [facility], [facility]/Surg - IP [facility]. Final Petar Gonzalez MD ECHO ORD * SCAN-RADIOLOGY REPORT (04/19/2024 12:00 AM CDT) Only the most recent of2 resultswithin the time period is included. Anatomical Region Laterality Modality Other Scanner OTHER * SCAN-OPERATIVE/PROCEDURE REPORT (04/15/2024 12:00 AM CDT) [...] SEDIMENTATION RATE (02/20/2024 3:44 PM CDT) Pathologist [facility] SEDIMENTATION RATE 8 <30 mm/hr 2023 10:41 PM CDT [facility] Blood BLOOD SPECIMEN / Unknown Venipuncture / Unknown 02/20/2024 3:44 PM CDT 02/20/2024 3:44 PM CDT Lalito Perdue DO HEMATOLOGY [facility] [address] [place] [address], * C-REACTIVE PROTEIN (02/20/2024 3:44 PM CDT) [facility] C-REACTIVE PROTEIN <0.3 <0.5 mg/dL 02/20/2024 11:05 PM CDT [facility] Blood BLOOD SPECIMEN / Unknown Venipuncture / Unknown 02/20/2024 3:44 PM CDT 02/20/2024 3:44 PM CDT Lalito Perdue DO CHEMISTRY Performing Organization Address [facility] de Phone Number [facility] [address] [place] [address], * D-DIMER,QUANTITATIVE (02/20/2024 3:44 PM CDT) [facility] D-DIMER,QUANTI TATIVE 0.54 See comment FEU mcg/mL 02/21/2024 1:32 AM CDT [facility] Blood BLOOD SPECIMEN / Unknown Venipuncture / Unknown 02/20/2024 3:44 PM CDT 02/20/2024 3:44 PM CDT Narrative [facility] - 02/21/2024 1:32 AM CDT The [...] Lalito Perdue DO HEMATOLOGY Performing Organization Address [facility] de Phone Number [facility] [address] [place] [address], [place] * Patient Source ANTI HCV (12/08/2016 1:07 AM CDT) Pathologist [facility] HEPATITIS C ANTIBODY Non-Reacti ve Non-Reacti ve 12/08/2016 2:31 AM CDT [facility] TRA LABORATORY Blood BLOOD SPECIMEN / Unknown Venipuncture / Unknown 12/08/2016 1:07 AM CDT 12/08/2016 1:28 AM CDT Narrative [facility] - 12/08/2016 2:31 AM CDT Antibodies to HCV not detected; does not exclude the possibility of exposure to HCV. Meghann Humphreys MD SEND OUTS [facility] [address] [place] [address], [place] from Last 3 Months or Most Recently Relevant to Health Maintenance Advance Directives Documents on File Type Date Recorded Patient Director Of Business Development Expl anation Healthcare Directive 12/31/2015 7:52 AM [...] Comments Code Status Discussion: Discussed Care Teams Produce Service Team Member Relationship Specialty Start Date End Date Lina Meléndez MD [address] [place] [id number] PCP - General Internal Medicine 11/01/21
--- OUTSIDE RECORDS SUMMARY | 2024-04-29 10:26 | XMS_ITS | Encounter Summary ---
Author Organization [facility] Address [address] [place] [address] Care Team Providers Care Director Trading Name Role Phone Unavailable Primary Care Provider Unavailabl e Reason for Visit * Reason Comments Med Refill Encounter Details Date Type Department Care Team (Late st Contact Info) Description 01/22/2024 Refill Division of Nephrology and Hypertension in [place], [place] [address] [place] [address] Joshua Lopez Jr., D.O. [address] [place] [address] Med Refill Social History Tobacco Use Types [...] often do you attend chur ch or zoroastrian services? More than 4 times per year [...] medical care, and heating? 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
--- OUTSIDE RECORDS SUMMARY | 2024-04-29 10:26 | XMS_ITS | Referral Summary ---
Author Organization [facility] Address [address] [place] [address] Care Team Providers Care Book Coverer Name Role Phone Unavailable Primary Care Provider Unavailabl e Source Comments Patient records contain information from all sites at [facility]. For routine questions regarding patient records, call [phone] during business hours, M-F 8:00 AM - 5:00 PM Central Time. Record requests for emergency care only can be directed to [phone] at any time.[facility] Encounters Date Type Department Care Team Description 03/19/2024 Documentation Division of Nephrology and Hypertension in [place], [place] [address] [place] [address] Joshua Lopez Jr., D.O. 02/06/2024 3:30 PM CDT External Outreach Division of Nephrology and Hypertension in [place], [place] [address] [place] [address] Joshua Lopez Jr. D.O. Hypertensive Chronic Kidney [...] from 12/21/2021:Stage Unknown(pT1b, pNX, cM0, G2, ER+, WA+, HER2-, Oncotype DX score: 17) - Unsigned [...] often do you attend chur ch or jehovah's witness services? More than 4 times per year 02/12/2022 Do you belong to any clubs o r organizations such as caodaism groups, unions, fraternal or [...] care, and heating? Somewhat hard 02/12/[address] [facility] [place] of Occupat ional Health - Occupational Stress [...] or slept in a jail (including now)? 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
--- OUTSIDE RECORDS SUMMARY | 2024-04-29 10:26 | XMS_ITS ---
Author Organization [facility] Address [address] [place] [address] Care Team Providers Care Battery Stacker Name Role Phone Unavailable Unavailable Unavailable Surgery Details Not on file Complications Check Surgery Details section. Procedure Estimated Blood Loss Check Surgery Details section. Procedure Findings Check Surgery Details section. Procedure Specimens Taken Check Surgery Details section.
--- OUTSIDE RECORDS SUMMARY | 2024-04-29 10:26 | XMS_ITS | Encounter Summary ---
Author Organization [facility] Address [address] [place] [address] Care Team Providers Care Cemetery Counselor Name Role Phone Unavailable Primary Care Provider Unavailabl e Reason for Visit * Appointment Request (Routine) - Closed Specialty Diagnoses / Procedures Referred By Caroline t Referred To Contact Nephrology and Hypertension Referral ID Status Reason Start Date Expiration Date Visits Re quested Visits Authorized [id number] Closed 01/05/2024 01/04/2025 1 1 Encounter Details Date Type Department Care Team (Latest Contact Info) Description 02/06/2024 3:30 PM CDT External Outreach Division of Nephrology and Hypertension in [place], [place] [address] [place] [address] Joshua Lopez Jr., D.O. [address] [place] [address] Hypertensive Chronic Kidney Disease With Stage 1 [...] How often do you attend chur or buddhism services? More than 4 times per year [...] medical care, and heating? 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
--- OUTSIDE RECORDS SUMMARY | 2024-04-29 10:26 | XMS_ITS ---
Author Organization [facility] Address [address] [place] [address] Care Team Providers Care Public Safety Telecommunicator Name Role Phone Unavailable Primary Care Provider [...] Treated Prescribed Fraction Dose Prescribed Total Dose [id number] 02/18/2022 4 5 of 5 520 cGy 2,600 cGy Reference Point Last Treated On Elapsed Days Session Dose Total Dose [id number] 02/18/2022 4 520 cGy 2,600 cGy icru ref 02/16/2022 2 531 cGy 1,593 cGy
--- OUTSIDE RECORDS SUMMARY | 2024-04-29 10:26 | XMS_ITS | Encounter Summary ---
Author Organization [facility] Address [address] [place] [address] Care Team Providers Care Elementary Ell Teacher Name Role Phone Unavailable Primary Care Provider Unavailabl e Encounter Details Date Type Department Care Team (Late st Contact Info) Description 03/19/2024 Documentation Division of Nephrology and Hypertension in [place], [place] [address] [place] [phone] Joshua Lopez Jr., D.O. [address] [place] [address] Social History Tobacco Use Types Packs/Day Years [...] any clubs o r organizations such as jewish groups, unions, fraternal or [...] care, and heating? 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
[2024-04-29 10:40] LABS: Basophils Absolute Auto 0.03 K/uL (0.00-0.30); Basophils Percent Auto 0.4 % (0.0-3.0); Eosinophils Absolute Auto 0.13 K/uL (0.00-0.50); Eosinophils Percent Auto 1.7 % (0.0-7.0); Hematocrit 31.7 % (33.0-51.0); Hemoglobin* 10.4 gm/dL (12.0-16.0); Immature Granulocytes Abs Auto 0.02 K/uL (0.00-0.30); Immature Granulocytes Pct Auto 0.3 %; Lymphocytes Percent Auto 8.9 % (20-44); Mean Corpuscular HGB Conc 33 gm/dL (32-36); Mean Corpuscular Hemoglobin 31 pg (26-34); Mean Corpuscular Volume 95 fL (80-100); Neutrophils Percent Auto 82.7 % (42.0-72.0); Platelet Count* 318 K/uL (140-440); RDW Coefficient of Variation % 12.6 % (11.5-15.5); Red Blood Count 3.34 m/uL (4.00-5.20); White Blood Count* 7.66 K/uL (4.50-11.00)
[2024-04-29 10:42] LABS: Slide Review Reflex No
[2024-04-29 10:43] LABS: Troponin, Point-of-Care* 0.02 ng/ml (0.01-0.04)
[2024-04-29 10:52] LABS: Chloride* 91 mmol/L (96-114); Sodium* 131 mmol/L (135-149)
[2024-04-29 10:53] LABS: Potassium* 3.4 mmol/L (3.6-5.1)
[2024-04-29 10:55] LABS: Creatinine* 0.8 mg/dL (0.5-1.5); Est. Creatinine Clearance* 41.33; Estimated Glomerular Filt Rate 76 ml/min
[2024-04-29 10:56] LABS: Anion Gap 10 mEq/L (7-15); Blood Urea Nitrogen* 34 mg/dL (7-30); Calcium* 9.4 mg/dL (8.4-10.6); Carbon Dioxide* 30 mmol/L (20-32); Glucose* 229 mg/dL (60-115)
--- NOTE | 2024-04-29 16:42 | ED.NURSE ---
After MD discharged, and discharge instructions given , MRI was reviewed and patient was then in need to return to in to the ER for admission to the [facility] per Dr. Akins.
--- NOTE | 2024-04-29 17:12 | ED.NURSE ---
Report given to Yamilex VALIENTE on medrg
--- NOTE | 2024-04-29 17:19 | P.IMHP_ITS ---
Hospitalist- H&P: HPI History of Present Illness Date Seen: 04/29/24 Chief complaint: is currently having a stroke Narrative: Maryam Cortez is a 78 year old female past medical history significant for type 2 diabetes mellitus, insulin dependent, hypertension, HFpEF, aortic stenosis, history of ischemic stroke 2016, TC with CPAP, insomnia, chronic low back pain, anemia of chronic disease, chronic hyponatremia is admitted to the medical floor from the ED for further management acute CVA. Patient went to bed feeling her normal self last night, noticing this morning while standing in her closet she was not able to put the words pink shirt together also noticing that she was unable to read written words, appearing jumbled. She was seen in the ED were staff was able to understand her but noticed it was difficult for her to put words together. There was no notable slurring of her speech. Patient has denied any focal or unilateral findings. Denies any numbness or tingling. She did not have a headache this morning but does currently as she feels she has not had enough to eat or drink over the course of the day. Denies dizziness or lightheadedness. Denies recent fevers. Denies chest pain or shortness of breath. Denies recent nausea or vomiting. Has had intermittent episodes of diarrhea since being on IV and oral antibiotics. In the ED, CT head as well as CTA head unremarkable for acute findings. However, MRI of the brain revealed acute ischemic infarcts of the left middle frontal gyrus cortex, new small chronic lacunar infarcts in the frontal lobes and left parietal lobe, as well as scattered remote microhemorrhages in the left temporal lobe, bilateral parietal and frontal lobes. ED provider discussed with [facility] Neurology, Dr. Dao and Dr. Browne, recommending overnight observation and follow-up in the morning. Will need to discuss with the Neurology team tomorrow whether to proceed with Plavix or Plavix and aspirin. Review of Systems Narrative: REVIEW OF SYSTEMS: Complete review of systems performed and negative unless otherwise stated in HPI or below. 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 - Aneurysm of unspecified site (ICD-10) Heart failure with preserved ejection fraction ?I50.30 - Unspecified diastolic (congestive) heart failure (ICD-10) Aortic stenosis ?I35.0 - Nonrheumatic aortic (valve) stenosis (ICD-10) Anxiety ?F41.9 - Anxiety disorder, unspecified (ICD-10) Heart murmur ?R01.1 - Cardiac murmur, unspecified (ICD-10) Health care directive on file (09/24/20) ?Z78.9 - Other specified health status (ICD-10) Adenomatous colon polyp ?D12.6 - Benign neoplasm of colon, unspecified (ICD-10) Gluteal pain ?M79.18 - Myalgia, other site (ICD-10) Lymphedema of breast ?I89.0 - Lymphedema, not elsewhere classified (ICD-10) Microalbuminuria due to type 2 diabetes mellitus ?E11.29 - Type 2 diabetes mellitus with other diabetic kidney complication (ICD-10) ?R80.9 - Proteinuria, unspecified (ICD-10) Type 2 diabetes mellitus (07/08/09) ?E11.9 - Type 2 diabetes mellitus without complications (ICD-10) History of ischemic stroke ?Z86.73 - Personal history of transient ischemic attack (TIA), and cerebral infarction without residual deficits (ICD-10) Anemia of chronic disease ?D63.8 - Anemia in other chronic diseases classified elsewhere (ICD-10) History of upper gastrointestinal bleeding ?Z87.19 - Personal history of other diseases of the digestive system (ICD-10) Breast cancer, right breast ?C50.911 - Malignant neoplasm of unspecified site of right female breast (ICD-10) History of hemorrhoids ?Z87.19 - Personal history of other diseases of the digestive system (ICD-10) History of breast cancer ?Z85.3 - Personal history of malignant neoplasm of breast (ICD-10) Rosacea (07/08/09) ?L71.9 - Rosacea, unspecified (ICD-10) Psoriasis (12/23/11) ?L40.9 - Psoriasis, unspecified (ICD-10) Pelvic floor dysfunction in female (2018) ?M62.89 - Other specified disorders of muscle (ICD-10) Obstructive sleep apnea syndrome (2018) ?G47.33 - Obstructive sleep apnea (adult) (pediatric) (ICD-10) Irritable bowel syndrome ?K58.9 - Irritable bowel syndrome without diarrhea (ICD-10) Hypomagnesemia ?E83.42 - Hypomagnesemia (ICD-10) Essential hypertension ?I10 - Essential (primary) hypertension (ICD-10) GERD (gastroesophageal reflux disease) ?K21.9 - Gastro-esophageal reflux disease without esophagitis (ICD-10) Chronic low back pain ?M54.50 - Low back pain, unspecified (ICD-10) ?G89.29 - Other chronic pain (ICD-10) Chronic insomnia ?F51.04 - Psychophysiologic insomnia (ICD-10) Chronic hyponatremia ?E87.1 - Hypo-osmolality and hyponatremia (ICD-10) Osteoporosis (~09/2021) ?M81.0 - Age-related osteoporosis without current pathological fracture (ICD- 10) Asthma (07/08/09) ?J45.909 - Unspecified asthma, uncomplicated (ICD-10) Hyperplastic polyp of intestine ?K63.5 - Polyp of colon (ICD-10) History of depression (2001) ?Z86.59 - Personal history of other mental and behavioral disorders (ICD-10) Surgical History Status post left foot surgery ?Z98.890 - Other specified postprocedural states (ICD-10) History of lumbar laminectomy for spinal cord decompression ?Z98.890 - Other specified postprocedural states (ICD-10) S/P breast lumpectomy (11/2021) ?Z98.890 - Other specified postprocedural states (ICD-10) History of hemorrhoidectomy ?Z98.890 - Other specified postprocedural states (ICD-10) History of basal cell carcinoma excision ?Z98.890 - Other specified postprocedural states (ICD-10) ?Z85.828 - Personal history of other malignant neoplasm of skin (ICD-10) History of foot surgery ?Z98.890 - Other specified postprocedural states (ICD-10) Hx of decompressive lumbar laminectomy ?Z98.890 - Other specified postprocedural states (ICD-10) History of cataract surgery ?Z98.49 - Cataract extraction status, unspecified eye (ICD-10) History of carpal tunnel release ?Z98.890 - Other specified postprocedural states (ICD-10) 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) ?Z96.659 - Presence of unspecified artificial knee joint (ICD-10) History of open reduction and internal fixation (ORIF) procedure (07/16/19) ?Z98.890 - Other specified postprocedural states (ICD-10) History of hysterectomy (07/08/09) ?Z90.710 - Acquired absence of both cervix and uterus (ICD-10) History of breast biopsy (07/08/09) ?Z98.890 - Other specified postprocedural states (ICD-10) History of blepharoplasty (07/08/09) ?Z98.890 - Other specified postprocedural states (ICD-10) History of bladder surgery (02/08/10) ?Z98.890 - Other specified postprocedural states (ICD-10) Family History Mother Diabetes Coronary artery disease Stroke Social History Narrative: 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 History of tobacco use She does not use recreational drugs. She rarely drinks alcohol. She has 1 biologic child, and 4 adopted children. Full code , Oren, healthcare power of transactional attorney What is your current living situation?: I presently have a place to live Problems where you live: no known problems Problems where you live details: NA In the past 12 months, utilities in danger of being shut off: no In past 12 months, lack of transportation kept you from medical appts, meetings, work, or getting things needed for daily living: no In the past 12 mos, have been you worried that your food would run out before you had money to buy more?: never true In the past 12 mos, the food you bought just didn't last and you didn't have money to buy more?: never true Highest level of school completed/degree received: Master's degree Smoking Status: Never smoker Do you use any of these nicotine containing products: None Second hand tobacco smoke exposure: No How often do you have a drink containing alcohol: monthly or less Alcohol type details: twice a year How often do you have six or more drinks on one occasion: Never AUDIT-C Alcohol total score: 1 Non-prescribed substance use: denies use Caffeine: No How often does anyone, including family, friends and others, physically hurt you : never How often does anyone, including family, friends and others, insult or talk down to you: never How often does anyone, including family, friends and others, threaten you with harm: never How often does anyone, including family, friends and others, scream or curse at you: never Little interest or pleasure in doing things: not at all Feeling down, depressed, or hopeless: not at all Are you using contraception or practicing any form of control: No service: No Meds Home Medications and Allergies Home Medications ?Medication ?Instructions ?Recorded ?Confirmed ?Type acetaminophen 500 mg tablet 1,000 mg PO Q6H PRN 07/28/22 04/29/24 History (Tylenol Extra Strength) folic acid 1 mg tablet 1 mg PO DAILY 04/04/23 04/29/24 History magnesium oxide 400 mg (241.3 mg 400 mg PO BID 04/10/23 04/29/24 History magnesium) tablet clindamycin phosphate 1 % topical 1 applic topical DAILY 09/20/23 04/29/24 History gel, once daily insulin glargine 100 unit/mL (3 16 - 18 unit subcut QAM 11/22/23 04/29/24 History mL) subcutaneous pen minoxidil 2.5 mg tablet 2.5 mg PO DAILY 03/25/24 04/29/24 History atorvastatin 10 mg tablet 10 mg PO HS 04/20/24 04/29/24 History calcium 500 mg (as 1 tab PO DAILY 04/20/24 04/29/24 History carbonate)-vitamin D3 10 mcg (400 unit) tablet (Calcium 500 + D) glucagon 1 mg solution for 1 mg IM DAILY 04/20/24 04/29/24 History injection (Glucagon Emergency Kit) oxycodone 5 mg tablet 5 - 10 mg PO Q4H PRN pain 04/20/24 04/29/24 History Allergies Allergy/AdvReac Type Severity Reaction Status Date / Time hazelnut Allergy Severe Throat Verified 04/29/24 10:07 closes and hives Sulfa (Sulfonamide Allergy Severe Anaphylaxis Verified 04/29/24 10:07 Antibiotics) adhesive Allergy Unknown Verified 04/29/24 10:07 cantaloupe Allergy Unknown Verified 04/29/24 10:07 codeine AdvReac Mild Nausea and Verified 04/29/24 10:07 Vomiting Gluten Meal AdvReac Unknown GI Uncoded 04/29/24 10:07 intolerance Exam Narrative: Exam Narrative: PHYSICAL EXAM General: Pleasant, conversant, NAD HEENT: Normocephalic, atraumatic, sclera white, EOMI, oral mucosa moist Cardiovascular: RRR, S1S2. No pitting edema Pulmonary: CTA bilaterally without rhonchi, rales, expiratory wheezes. No dyspnea Abdominal: Soft, nondistended, NTTP Neurological: Alert, answering questions appropriately, cranial nerves intact, no slurring of speech, very few episodes of word-finding difficulty, no facial asymmetry, no focal findings UE/LE Extremities: No gross joint deformity or swelling. AROMI. Neurovascularly intact Skin: Warm, dry. Const: Vital Signs, click to edit/add: Vital Signs - 24 hr 04/29/24 09:31 04/29/24 10:31 04/29/24 10:46 Pulse Rate Pulse Rate [Left P ulse Oximeter] 80 Respiratory Rate 18 Blood Pressure 150/88 H 145/123 H Blood Pressure [Ri ght Upper Arm] 179/88 H Pulse Oximetry 97 Oxygen Delivery Me thod Room Air 04/29/24 11:01 04/29/24 11:17 04/29/24 11:33 Pulse Rate 71 Pulse Rate [Left P ulse Oximeter] Respiratory Rate Blood Pressure 156/91 H 136/126 H 164/76 H Blood Pressure [Ri ght Upper Arm] Pulse Oximetry 99 Oxygen Delivery Me thod 04/29/24 11:34 04/29/24 11:45 04/29/24 11:46 Pulse Rate 69 72 65 Pulse Rate [Left P ulse Oximeter] Respiratory Rate Blood Pressure 151/79 H Blood Pressure [Ri ght Upper Arm] Pulse Oximetry 99 97 98 Oxygen Delivery Me thod 04/29/24 12:02 04/29/24 12:16 04/29/24 12:40 Pulse Rate 64 Pulse Rate [Left P ulse Oximeter] Respiratory Rate Blood Pressure 162/77 H 153/80 H Blood Pressure [Ri ght Upper Arm] Pulse Oximetry 92 Oxygen Delivery Me thod 04/29/24 12:45 04/29/24 12:46 04/29/24 12:46 Pulse Rate 63 65 65 Pulse Rate [Left P ulse Oximeter] Respiratory Rate Blood Pressure 169/81 H 169/81 H Blood Pressure [Ri ght Upper Arm] Pulse Oximetry 97 97 97 Oxygen Delivery Me thod 04/29/24 12:47 04/29/24 13:00 04/29/24 13:01 Pulse Rate 63 64 64 Pulse Rate [Left P ulse Oximeter] Respiratory Rate Blood Pressure 157/72 H Blood Pressure [Ri ght Upper Arm] Pulse Oximetry 99 98 96 Oxygen Delivery Me thod 04/29/24 13:15 04/29/24 13:16 04/29/24 13:37 Pulse Rate 61 61 79 Pulse Rate [Left P ulse Oximeter] Respiratory Rate Blood Pressure 164/74 H 161/93 H Blood Pressure [Ri ght Upper Arm] Pulse Oximetry 100 94 95 Oxygen Delivery Me thod 04/29/24 13:38 04/29/24 13:46 04/29/24 14:01 Pulse Rate 80 Pulse Rate [Left P ulse Oximeter] Respiratory Rate Blood Pressure 167/83 H 172/86 H Blood Pressure [Ri ght Upper Arm] Pulse Oximetry 99 Oxygen Delivery Me thod 04/29/24 14:16 04/29/24 15:02 04/29/24 15:04 Pulse Rate 70 71 Pulse Rate [Left P ulse Oximeter] Respiratory Rate Blood Pressure 173/160 H 171/85 H Blood Pressure [Ri ght Upper Arm] Pulse Oximetry 99 100 Oxygen Delivery Me thod 04/29/24 15:05 04/29/24 15:18 04/29/24 15:22 Pulse Rate 71 80 Pulse Rate [Left P ulse Oximeter] Respiratory Rate Blood Pressure 137/71 Blood Pressure [Ri ght Upper Arm] Pulse Oximetry 100 100 Oxygen Delivery Me thod 04/29/24 16:51 Pulse Rate Pulse Rate [Left P ulse Oximeter] Respiratory Rate 16 Blood Pressure Blood Pressure [Ri ght Upper Arm] 147/78 H Pulse Oximetry 98 Oxygen Delivery Me thod Room Air Hospitalist - H&P: Result Labs Labs: Short CBC 04/29/24 Range/Units 10:30 WBC 7.66 (4.50-11.00) K/uL Hgb 10.4 L (12.0-16.0) gm/dL Hct 31.7 L (33.0-51.0) % Plt Count 318 (140-440) K/uL [facility] 04/29/24 10:30 Sodium 131 L Potassium 3.4 L Chloride 91 L Carbon Dioxide 30 BUN 34 H Creatinine 0.8 Glucose 229 H Calcium 9.4 ECG Attestation: I personally reviewed and interpreted this ECG as follows: Interpretation: NSR, ventricular rate 74, QTC [address] scan - head: Attestation: I have reviewed the pertinent imaging results. Radiologist's impression: Brain parenchyma: Normal montanez-white matter differentiation. Punctate left basal ganglia calcification with subtle adjacent hypodensity, similar in appearance compared to 01/15/2018. Minimal prominence of the convexity sulci and periventricular white matter hypodensities in keeping with chronic microvascular change and age related volume loss. No acute intraparenchymal hemorrhage. No mass effect or midline shift. Mild atherosclerotic arterial calcifications. Extra-axial spaces: No extra-axial collection. Ventricular system: Unremarkable for age. Paranasal sinuses and mastoid air cells: Possible small osteoma within the right sphenoid sinus. Otherwise clear. Orbits: Unremarkable. Bones: No calvarial fracture. Impression: 1. No acute intracranial abnormality identified. 2. Minimal cerebral volume loss and findings suggestive of chronic small vessel ischemic change. CTA head: Attestation: I have reviewed the pertinent imaging results. Radiologist's impression: No intracranial proximal large vessel occlusion or flow-limiting luminal stenosis. No evidence of cerebral aneurysm. No findings to suggest an arterial-venous shunting lesion. The major dural venous sinuses and deep venous system are patent. IMPRESSION: No intracranial proximal large vessel occlusion, flow-limiting luminal stenosis, or cerebral aneurysm. CTA neck: Attestation: I have reviewed the pertinent imaging results. Radiologist's impression: The origins of the great vessels from the aortic arch are patent. The common carotid arteries are patent. 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 No significant stenosis of the proximal left ICA. 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 The distal cervical left ICA is patent. The origins and cervical segments of the vertebral arteries are patent. IMPRESSION: 1. 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 2. 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 Brain MRI: Attestation: I have reviewed the pertinent imaging results. Radiologist's impression: Multiple scattered foci of increased T2 signal within the periventricular and subcortical white matter of both cerebral hemispheres and in the brainstem. Mild cerebral volume loss. The pituitary gland, optic chiasm, pineal gland, and cerebellar tonsils are unremarkable. New small chronic lacunar infarcts in the right frontal lobe and left frontal lobe, and left parietal lobe. There is a 5 mm focus of susceptible artifact in the right parietal lobe, 3 millimeter focus of susceptibility effect in the left parietal lobe, and foci of susceptibility artifact in the left temporal lobe measuring up to 4 mm concerning for remote microhemorrhages. Few small foci of diffusion restriction and T2 prolongation along the left middle frontal gyrus cortex compatible with acute ischemic infarcts. The ventricles, sulci and gyri are of normal size, shape and contour for age and degree of atrophy. Midline structures are centrally located. No convincing evidence of suspicious intra- or extra-axial fluid collections. Bilateral pseudophakia. Rightward deviation of the nasal septum. Findings discussed with Dr. Akins at 4:15 p.m. Impression: 1. Few small foci of diffusion restriction and T2 prolongation along the left middle frontal gyrus cortex compatible with acute ischemic infarcts. 2. Mild worsening of moderate supratentorial and infratentorial white matter changes are non-specific but most likely related to small vessel ischemic disease. Mild cerebral volume loss. 3. New small chronic lacunar infarcts in the frontal lobes and left parietal lobe. 4. Scattered remote microhemorrhages in the left temporal lobe, bilateral parietal and frontal lobes. Assessment and Plan Assessment and plan (1) Acute CVA (cerebrovascular accident): Problem comment: -Last known well prior to bedtime 04/28/24 -This am, unable to say pink shirt while standing in her closet. Unable to read written words - jumbled? -Mostly resolved prior to admission -CT head shows No acute intracranial abnormality identified. Minimal cerebral volume loss and findings suggestive of chronic small vessel ischemic change -CTA head shows no intracranial proximal large vessel occlusion, flow-limiting luminal stenosis, or cerebral aneurysm -MRI brain shows 1. Few small foci of diffusion restriction and T2 prolongation along the left middle frontal gyrus cortex compatible with acute ischemic infarcts. 2. Mild worsening of moderate supratentorial and infratentorial white matter changes are non-specific but most likely related to small vessel ischemic disease. Mild cerebral volume loss. 3. New small chronic lacunar infarcts in the frontal lobes and left parietal lobe. 4. Scattered remote microhemorrhages in the left temporal lobe, bilateral parietal and frontal lobes ED provider discussed with [facility] Neurology, Dr. Dao and Dr. Browne, recommending overnight admission for observation -allow for permissive hypertension -on Plavix since 2016 for h/o ischemic CVA. Not currently on aspirin. Microhemorrhages noted on MRI. Discuss with Neurology tomorrow plan for therapy going forward -lipid panel, A1c ordered -TTE completed 04/22/24, results below -neuro checks q.4 hours, telemetry, SCDs -PT/OT/[facility] consults -repeat Neurology consult tomorrow Status: Acute (2) Dysarthria: Problem comment: -onset this morning, last known well prior to bedtime 04/28/2024. Mostly resolved prior to admission Status: Acute (3) Heart failure with preserved ejection fraction: Problem comment: TTE 04/22/2024 Final Impressions: 1. Normal LV size, normal wall thickness, normal global systolic function with an estimated EF of 65 - 70%. 2. Right ventricular cavity size is normal, global systolic RV function is normal. 3. The aortic valve is not well visualized and sclerotic, mild stenosis and no regurgitation. The aortic valve peak velocity is 2.7 m/s, the peak gradient is 29 mmHg, and the mean gradient is 16 mmHg. The aortic valve area is 1.43 cm?? with a dimensionless index of 0.51. The stroke volume index is 48.2 ml/m??. 4. The mitral valve is sclerotic, trace mitral regurgitation. 5. Mitral stenosis with moderately increased mean gradient of 6.6 mmHg at a heart rate of 76. 6. Mildly enlarged left atrium. 7. Moderately increased estimated pulmonary pressures by tricuspid regurgitation velocity and right atrial pressure (39 mmHg plus RAP) -continue torsemide. Strict I&Os, daily weights -will need outpatient cardiology follow-up. PCP placed a referral on 04/25/2024 Status: Acute (4) Aortic stenosis: Problem comment: -History of aortic sclerosis, TTE showing mild stenosis, no regurgitation. CTA neck shows Mild (<50%) atherosclerotic stenosis of the proximal right ICA by NASCET criteria -currently on atorvastatin 10 mg daily, lipid panel ordered for morning, discuss with Neurology increasing dose -outpatient cardiology follow-up Status: Acute (5) Type 2 diabetes mellitus: Problem comment: -Dxed 1980s, on Insulin since 2006, previously on Metformin -most recent A1c 7.2. Repeat ordered tomorrow morning -home dose glargine 18 units q.a.m. - will dose 10 units tomorrow. Glucose checks ACHS. Insulin sliding scale Status: Acute (6) History of ischemic stroke: Problem comment: -Ischemic thalamic stroke 2015. Symptoms were left-sided numbness which has entirely resolved; remains on Plavix Status: Acute (7) Anemia of chronic disease: Problem comment: -hemoglobin 10.4, recent baseline 8.9-11.5 -ongoing management with PCP Status: Acute (8) Chronic hyponatremia: Problem comment: -sodium 131, baseline 126-132, monitor Status: Acute (9) Essential hypertension: Problem comment: -during most recent hospitalization (March 2024), due to heart failure, d iabetes added torsemide 20 mg with potassium 20 mEq and losartan 50 mg daily. Echocardiogram shows mild aortic stenosis, mitral stenosis, pulmonary hypertension and preserved ejection fraction -allow for permissive hypertension Status: Acute (10) Status post left foot surgery: Problem comment: -DOS 04/15/2024. Left foot surgery for bunion, 2nd and 3rd hammertoe deformity and 3rd metatarsal fracture [address] 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 This includes time spent for the visit reviewing the chart, time spent during the visit, time spent after the visit and documentation and planning in coordination of care.
[2024-04-29] MEDS: ACETAMINOPHEN 325 MG TABLET 975 MG PO (18:41)
--- NOTE | 2024-04-29 19:54 | PC.NURSE ---
Nursing Care Hours: [id number] Pt this shift calm and cooperative, alert and oriented. Independent in the room, gait stable. Headache rated 5/10 and increasing during intake, treated per eMAR. Neuro checks show no deficit or abnormal findings. HTN on arrival. Swallow study done at bedside with 3oz of fluid. No cough and no changes to vocal sounds after. tolerating regular diet in room.
[2024-04-29] MEDS: ATORVASTATIN 10 MG TABLET PO (20:40)
[2024-04-29] MEDS: MAGNESIUM OXIDE 400 MG TABLET PO (20:40)
[2024-04-29] MEDS: DOXYCYCLINE HYCLATE 100 MG PO (20:40)
[2024-04-29] MEDS: AMOXICILLIN/CLAVULANATE 875 mg/125 mg TABLET PO (20:40)
[2024-04-29] MEDS: FLUTICASONE PROPIONATE NASAL 2 SPRAY NOSTRIL-B (20:41)
[2024-04-29] MEDS: GABAPENTIN 300 MG CAPSULE PO (20:56)
[2024-04-29] MEDS: timoloL maleate 0.5 % 1 DROP EYE-BOTH (20:57)
[2024-04-29] MEDS: INSULIN ASPART 100 UNIT/ML SUBCUT (21:00)
[2024-04-29] MEDS: GABAPENTIN 300 MG CAPSULE 600 MG PO (22:35)
[2024-04-30 03:00] VITALS: BP 131/66; PULSE 66; RESP 18; TEMP 36.8
--- NOTE | 2024-04-30 05:15 | PC.NURSE ---
Pt pleasant and cooperative. Up I in room. Has steady gait. Neuro's are WNL no residual from earlier. Swallowing without problems. VSS.
[2024-04-30 06:41] LABS: Hematocrit 31.3 % (33.0-51.0); Hemoglobin* 10.1 gm/dL (12.0-16.0); Mean Corpuscular HGB Conc 32 gm/dL (32-36); Mean Corpuscular Hemoglobin 31 pg (26-34); Mean Corpuscular Volume 95 fL (80-100); Platelet Count* 316 K/uL (140-440); Red Blood Count 3.28 m/uL (4.00-5.20); White Blood Count* 6.38 K/uL (4.50-11.00)
[2024-04-30 06:42] LABS: Slide Review Reflex No
[2024-04-30 06:57] LABS: Chloride* 95 mmol/L (96-114); Hemoglobin A1C* 7.1 % (0-5.6); Potassium* 3.6 mmol/L (3.6-5.1); Sodium* 133 mmol/L (135-149)
[2024-04-30 07:00] VITALS: BP 155/87; PULSE 79; RESP 18; O2SAT 96
[2024-04-30 07:00] LABS: Anion Gap 4 mEq/L (7-15); Blood Urea Nitrogen* 27 mg/dL (7-30); Carbon Dioxide* 34 mmol/L (20-32); Cholesterol* 125 mg/dL (90-199); Creatinine* 0.8 mg/dL (0.5-1.5); Est. Creatinine Clearance* 43.07; Estimated Glomerular Filt Rate 76 ml/min; Glucose* 171 mg/dL (60-115); Triglycerides* 63 mg/dL (40-149)
[2024-04-30 07:01] LABS: Calcium* 8.9 mg/dL (8.4-10.6); HDL Cholesterol* 53 mg/dL (>=50); LDL Cholesterol Calculated 59 mg/dL (<100)
[2024-04-30] MEDS: SODIUM CHLORIDE 0.9 % (FLUSH) 10 ML SYRINGE 5 ML IVF (08:46)
[2024-04-30] MEDS: OMEPRAZOLE 20 MG CAPSULE DR PO (08:46)
[2024-04-30] MEDS: TORSEMIDE 20 MG TABLET PO (08:46)
[2024-04-30] MEDS: POTASSIUM CHLORIDE 10 MEQ CAPSULE ER 20 MEQ PO (08:46)
[2024-04-30] MEDS: AMOXICILLIN/CLAVULANATE 875 mg/125 mg TABLET PO (08:46)
[2024-04-30] MEDS: MAGNESIUM OXIDE 400 MG TABLET PO (08:46)
--- NOTE | 2024-04-30 09:16 | RESP.RT ---
Patient home CPAP at bedside, used last night, no issues.
[2024-04-30] MEDS: INSULIN ASPART 100 UNIT/ML SUBCUT (09:40)
[2024-04-30] MEDS: INSULIN GLARGINE,HUM.REC.ANLOG 100 UNIT/ML INSULN.PEN 10 UNIT SUBCUT (09:41)
[2024-04-30] MEDS: DOXYCYCLINE HYCLATE 100 MG PO (09:41)
--- NOTE | 2024-04-30 10:03 | P.DS_ITS ---
DS: Providers Provider Date Seen: 04/30/24 Date of admission: 04/29/24 17:20 Primary care physician: Lina Meléndez MD Admitting Clinician: Fozia Horta MD Consults: OT, PT, SW Attending Physician on discharge: Montserrat Cash MD Date of Discharge: 04/30/24 DS: Diagnosis Discharge Diagnosis (1) Acute CVA (cerebrovascular accident): Status: Acute Problem details: - Last known well prior to bedtime 04/28/24 - presented with dysarthria - CT and CTA head/neck reassuring - MRI: 1. Few small foci of diffusion restriction and T2 prolongation along the left middle frontal gyrus cortex compatible with acute ischemic infarcts. 2. Mild worsening of moderate supratentorial and infratentorial white matter changes are non-specific but most likely related to small vessel ischemic disease. Mild cerebral volume loss. 3. New small chronic lacunar infarcts in the frontal lobes and left parietal lobe. 4. Scattered remote microhemorrhages in the left temporal lobe, bilateral parietal and frontal lobes - Dr. Dao from [facility] Neurology followed: continue Plavix, not starting ASA given h/o gastritis, Zio patch - LDL 59, A1C 7.1; continue diabetic meds and statin upon d/c - outpatient therapies recommended (2) Dysarthria: Status: Acute Problem details: - resolved hospital day 1 (3) Heart failure with preserved ejection fraction: Status: Acute Problem details: TTE 04/22/2024 Final Impressions: 1. Normal LV size, normal wall thickness, normal global systolic function with an estimated EF of 65 - 70%. 2. Right ventricular cavity size is normal, global systolic RV function is normal. 3. The aortic valve is not well visualized and sclerotic, mild stenosis and no regurgitation. The aortic valve peak velocity is 2.7 m/s, the peak gradient is 29 mmHg, and the mean gradient is 16 mmHg. The aortic valve area is 1.43 cm?? with a dimensionless index of 0.51. The stroke volume index is 48.2 ml/m??. 4. The mitral valve is sclerotic, trace mitral regurgitation. 5. Mitral stenosis with moderately increased mean gradient of 6.6 mmHg at a heart rate of 76. 6. Mildly enlarged left atrium. 7. Moderately increased estimated pulmonary pressures by tricuspid regurgitation velocity and right atrial pressure (39 mmHg plus RAP) - continued Torsemide - outpatient Cardiology f/u has been scheduled (4) Type 2 diabetes mellitus: Status: Acute Problem details: - Dxed 1980s, on Insulin since 2006, previously on Metformin - most recent A1c 7.2, A1C 04/30 7.1 - continue home medications upon d/c (5) History of ischemic stroke: Status: Acute Problem details: - Ischemic thalamic stroke 2016. Symptoms were left-sided numbness which has entirely resolved; remains on Plavix (6) Anemia of chronic disease: Status: Acute Problem details: - hemoglobin 10.4, recent baseline 8.9-11.5 - ongoing management with PCP (7) Essential hypertension: Status: Acute Problem details: - permissive HTN during stay, will restart home dose of Carvedilol upon d/c (8) Status post left foot surgery: Status: Acute Problem details: - DOS 04/15/2024. Left foot surgery for bunion, 2nd and 3rd hammertoe deformity and 3rd metatarsal fracture [address] Fink - Hospitalized 04/19-04/22 with postoperative cellulitis - continue oral Augmentin and doxycycline DS: Summary Hospital Course Hospital Course: Maryam was admitted to the hospital on 04/29/24 for dysarthria, diagnosed with new CVA (L middle frontal gyrus cortex), in addition to worsened small vessel ischemic disease, chronic lacunar infarcts in the frontal lobes and left parietal lobe, scattered microhemorrhages in the left temporal lobe and bilateral parietal and frontal lobes. Symptoms resolved during stay, seen by therapies who recommend outpatient OT and speech therapy; no PT needs identified. Seen by Stroke Neurology, she will continue her Plavix and aspirin is not been added to regimen given history of gastritis. She will continue her statin, hypertensive management, and insulin. Given concern for cardioembolic source and history of palpitations, she is discharging on a Zio patch and will follow up with PCP + cardiology for results. Status at Discharge Functional status at discharge: uses cane/walker Overall status at discharge: patient is progressing back to baseline Time Spent with Patient Time attestation: Total time spent providing and/or coordinating discharge services: Time spent: Greater than 30 minutes Specific discharge activities: Consultation with Stroke Neurology and therapy teams, medication management Exam Narrative: Exam Narrative: GEN: Alert and oriented, nontoxic. Sitting comfortably in bedside chair and eating breakfast HEENT: EOMIs bilaterally, no scleral icterus CV: Pulse palpates as regular rate and rhythm R: No tachypnea, breathing comfortably Skin: No concerning skin lesions or rashes on exposed skin Neuro: No focal deficits, speech difficulties, or resting tremor Psych: Appropriate Const: Vital Signs, click to edit/add: Vital Signs - 24 hr 04/29/24 10:31 04/29/24 10:46 04/29/24 11:01 Temperature Pulse Rate Pulse Rate [Left P ulse Oximeter] Respiratory Rate Blood Pressure 150/88 H 145/123 H 156/91 H Blood Pressure [Le ft Arm] Blood Pressure [Ri ght Arm] Blood Pressure [Ri ght Upper Arm] Pulse Oximetry Oxygen Delivery Ms thod 04/29/24 11:17 04/29/24 11:33 04/29/24 11:34 Temperature Pulse Rate 71 69 Pulse Rate [Left P ulse Oximeter] Respiratory Rate Blood Pressure 136/126 H 164/76 H Blood Pressure [Le ft Arm] Blood Pressure [Ri ght Arm] Blood Pressure [Ri ght Upper Arm] Pulse Oximetry 99 99 Oxygen Delivery Ms thod 04/29/24 11:45 04/29/24 11:46 04/29/24 12:02 Temperature Pulse Rate 72 65 Pulse Rate [Left P ulse Oximeter] Respiratory Rate Blood Pressure 151/79 H 162/77 H Blood Pressure [Le ft Arm] Blood Pressure [Ri ght Arm] Blood Pressure [Ri ght Upper Arm] Pulse Oximetry 97 98 Oxygen Delivery Ms thod 04/29/24 12:16 04/29/24 12:40 04/29/24 12:45 Temperature Pulse Rate 64 63 Pulse Rate [Left P ulse Oximeter] Respiratory Rate Blood Pressure 153/80 H Blood Pressure [Le ft Arm] Blood Pressure [Ri ght Arm] Blood Pressure [Ri ght Upper Arm] Pulse Oximetry 92 97 Oxygen Delivery Ms thod 04/29/24 12:46 04/29/24 12:46 04/29/24 12:47 Temperature Pulse Rate 65 65 63 Pulse Rate [Left P ulse Oximeter] Respiratory Rate Blood Pressure 169/81 H 169/81 H Blood Pressure [Le ft Arm] Blood Pressure [Ri ght Arm] Blood Pressure [Ri ght Upper Arm] Pulse Oximetry 97 97 [facility] 04[facility] 13:00 04/29/24 13:01 04/29/24 13:15 Temperature Pulse Rate 64 64 61 Pulse Rate [Left P ulse Oximeter] Respiratory Rate Blood Pressure 157/72 H Blood Pressure [Le ft Arm] Blood Pressure [Ri ght Arm] Blood Pressure [Ri ght Upper Arm] Pulse Oximetry 98 96 100 Oxygen Delivery Me thod 04/29/24 13:16 04/29/24 13:37 04/29/24 13:38 Temperature Pulse Rate 61 79 80 Pulse Rate [Left P ulse Oximeter] Respiratory Rate Blood Pressure 164/74 H 161/93 H Blood Pressure [Le ft Arm] Blood Pressure [Ri ght Arm] Blood Pressure [Ri ght Upper Arm] Pulse Oximetry 94 95 99 Oxygen Delivery Ms thod 04/29/24 13:46 04/29/24 14:01 04/29/24 14:16 Temperature Pulse Rate Pulse Rate [Left P ulse Oximeter] Respiratory Rate Blood Pressure 167/83 H 172/86 H 173/160 H Blood Pressure [Le ft Arm] Blood Pressure [Ri ght Arm] Blood Pressure [Ri ght Upper Arm] Pulse Oximetry Oxygen Delivery Ms thod 04/29/24 15:02 04/29/24 15:04 04/29/24 15:05 Temperature Pulse Rate 70 71 71 Pulse Rate [Left P ulse Oximeter] Respiratory Rate Blood Pressure 171/85 H Blood Pressure [Le ft Arm] Blood Pressure [Ri ght Arm] Blood Pressure [Ri ght Upper Arm] Pulse Oximetry 99 100 100 Oxygen Delivery Ms thod 04/29/24 15:18 04/29/24 15:22 04/29/24 16:51 Temperature Pulse Rate 80 Pulse Rate [Left P ulse Oximeter] Respiratory Rate 16 Blood Pressure 137/71 Blood Pressure [Le ft Arm] Blood Pressure [Ri ght Arm] Blood Pressure [Ri ght Upper Arm] 147/78 H Pulse Oximetry 100 98 [facility] 04/29/24 17:20 04/29/24 18:18 04/29/24 18:18 Temperature Pulse Rate Pulse Rate [Left P ulse Oximeter] 74 74 Respiratory Rate 18 18 Blood Pressure Blood Pressure [Le ft Arm] 192/84 H Blood Pressure [Ri ght Arm] Blood Pressure [Ri ght Upper Arm] Pulse Oximetry 99 99 Oxygen Delivery Me thod Room Air Room Air 04/29/24 19:35 04/29/24 20:35 04/29/24 21:20 Temperature 98.2 F Pulse Rate 62 Pulse Rate [Left P ulse Oximeter] 68 68 Respiratory Rate 16 Blood Pressure Blood Pressure [Le ft Arm] 135/52 L Blood Pressure [Ri ght Arm] Blood Pressure [Ri ght Upper Arm] Pulse Oximetry Oxygen Delivery Me thod Room Air 04/29/24 23:00 04/30/24 03:00 04/30/24 07:00 Temperature 97.5 F L 98.3 F Pulse Rate Pulse Rate [Left P ulse Oximeter] 76 66 79 Respiratory Rate 18 18 18 Blood Pressure Blood Pressure [Le ft Arm] 148/69 H 131/66 Blood Pressure [Ri ght Arm] 155/87 H Blood Pressure [Ri ght Upper Arm] Pulse Oximetry 95 96 Oxygen Delivery Me thod Room Air Room Air DS: Data Data Completed and Pending Labs on day of discharge: Labs from last 24 hours 04/30/24 04/29/24 04/29/24 06:15 10:30 09:37 WBC 6.38 7.66 RBC 3.28 L 3.34 L Hgb 10.1 L 10.4 L Hct 31.3 L 31.7 L MCV 95 95 MCH 31 31 MCHC 32 33 RDW Coeff of Don 12.6 Plt Count 316 318 Neut % (Auto) 82.7 H Lymph % (Auto) 8.9 L Evangeline % (Auto) 6.0 Eos % (Auto) 1.7 Baso % (Auto) 0.4 Neut # (Auto) 6.30 Lymph # (Auto) 0.70 L Evangeline # (Auto) 0.50 Eos # (Auto) 0.13 Baso # (Auto) 0.03 Abs Immat Gran (auto) 0.02 Imm/Tot Granulo (auto) 0.3 Sodium 133 L 131 L Potassium 3.6 3.4 L Chloride 95 L 91 L Carbon Dioxide 34 H 30 Anion Gap 4 L 10 BUN 27 34 H Creatinine 0.8 0.8 Estimated Creat Clear 43.07 41.33 Estimated GFR 76 76 Glucose 171 H 229 H Hemoglobin A1c 7.1 H Calcium 8.9 9.4 Triglycerides 63 Cholesterol 125 LDL Cholesterol, Calc 59 HDL Cholesterol 53 POC Troponin I 0.02 Discharge Plan Discharge Disposition: Home, Self-Care Date of Admission: 04/29/24 17:20 Attending Provider on Discharge: Montserrat Cash Discharge Medications: Continued clobetasol 0.05 % ointment 1 applic topical .twice weekly 360 Days Qty: 30 1RF acetaminophen [Tylenol Extra Strength] 500 mg tablet 1,000 mg PO Q6H PRN folic acid 1 mg tablet 1 mg PO DAILY timolol maleate 0.5 % drops 1 drp ophthalmic (eye) HS Qty: 5 2RF Rx Instructions: Apply to fingertips at bedtime. minoxidil 2.5 mg tablet 2.5 mg PO DAILY valacyclovir 1 gram tablet 1,000 mg PO BID Qty: 4 2RF atorvastatin 10 mg tablet 10 mg PO HS Glucagon Emergency Kit (human) 1 mg recon soln 1 mg IM DAILY oxycodone 5 mg tablet 5 - 10 mg PO Q4H PRN (Reason: pain) calcium carbonate-vitamin D3 [Calcium 500 + D] 500 mg-10 mcg (400 unit) tablet 1 tab PO DAILY doxycycline hyclate 100 mg tablet 100 mg PO BID Qty: 20 0RF amoxicillin-pot clavulanate 875-125 mg tablet 1 tab PO Q12H Qty: 20 0RF torsemide 20 mg tablet 20 mg PO DAILY Qty: 30 2RF losartan 50 mg tablet 50 mg PO DAILY Qty: 30 0RF potassium chloride 10 mEq capsule, extended release 20 meq PO DAILY Qty: 60 0RF insulin glargine 100 unit/mL (3 mL) insulin pen 16 - 18 unit SUBCUT QAM clindamycin phosphate 1 % gel, once daily 1 applic topical DAILY clopidogrel 75 mg tablet 75 mg PO DAILY Qty: 90 2RF carvedilol 6.25 mg tablet 6.25 mg PO BID Qty: 180 0RF magnesium oxide 400 mg (241.3 mg magnesium) tablet 400 mg PO BID gabapentin 300 mg capsule 300 mg PO BID Qty: 180 2RF (DME) pen needle, diabetic [BD Ultra-Fine Mini Pen Needle] 31 gauge x 3/16 needle See Rx Instructions .ROUTE .COMPLEX Qty: 300 1RF Dose Instruction: USE TO INJECT INSULIN UP TO 6 TIMES DAILY. Rx Instructions: USE TO INJECT INSULIN UP TO 6 TIMES DAILY. eszopiclone [Lunesta] 2 mg tablet 2 mg PO QHS Qty: 90 3RF Qvar RediHaler 80 mcg/actuation HFA aerosol breath activated 2 inh PO BID Qty: 10.6 8RF omeprazole 20 mg capsule,delayed release(DR/EC) 20 mg PO DAILY Qty: 90 3RF insulin aspart U-100 [Novolog FlexPen U-100 Insulin] 100 unit/mL (3 mL) insulin pen 15 unit subcut TIDWM Qty: 15 7RF Patient Comments: sliding scale base on glucose reading Rx Instructions: based on your scale fluticasone propionate [Allergy Relief (fluticasone)] 50 mcg/actuation spray,suspension 2 spray intranasal BID Qty: 16 9RF Rx Instructions: administer into each nostril albuterol sulfate 90 mcg/actuation HFA aerosol inhaler 2 - 4 puff inhalation Q4-6H PRN (Reason: shortness of breath or wheezing) Qty: 6.7 5RF (DME) InnofideiStyle Daja 14 Day Sensor Kit See Rx Instructions .Route Qty: 2 5RF Rx Instructions: As directed Discharge Orders: Discharge Order (Routine); Ordered 04/30/24 Ordered By: Montserrat Cash Patient Education: Ischemic Stroke (DC) Additional Instructions: Restart your Carvedilol tomorrow morning. Wear Zio patch as directed. Outpatient therapies as ordered. No changes to home medications. Activity Level: Activity as Tolerated Discharge Diet: Diabetic Follow Up Appointments: Lina Meléndez MD [Primary Care Provider] - 05/06/24 8:30 am ([facility] for follow-up.) Forms: [employer] Info Instructions
--- NOTE | 2024-04-30 11:06 | PC.SOCIAL ---
Social work international project engineer completed a discharge assessment with pt. Pt does not have any current home services and is not requesting resources on any at this moment. Prior to this hospitalization, pt was admitted to [facility] last week for erythema of the foot. Pt lives in [place] with her and has a daughter in [place]. No mental health needs were identified. Pt is ready to d/c and return home. Social work to follow up if needed.
--- NOTE | 2024-04-30 11:54 | PC.NURSE ---
The patient discharged home with her . Neuro status is back to her baseline per the patient. Ziopatch was applied and education was reviewed/given to the patient. Instructions to not get wet for 24hrs. All other questions were answered. Belongings were sent with the patient as well. Lesly VALIENTE BSN
== END 2024-04-30 11:40 | disposition home or self-care (01) | DRG 65 ==
LOC: ED 10:22 → MEDSURG 17:11
PROVIDERS: Admitting Provider Physician Assistant; Emergency Provider Emergency Medicine Emergency Medical Services; PCP Internal Medicine; Visit Provider Family Medicine
DX: I63.9 Cerebral infarction, unspecified (principal); E87.1 Hypo-osmolality and hyponatremia; I50.30 Unspecified diastolic (congestive) heart failure; R47.1 Dysarthria and anarthria; I11.0 Hypertensive heart disease with heart failure; E87.6 Hypokalemia; I35.0 Nonrheumatic aortic (valve) stenosis; I27.20 Pulmonary hypertension, unspecified; D63.8 Anemia in other chronic diseases classified elsewhere; I08.3 Combined rheumatic disorders of mitral, aortic and tricuspid valves; I72.9 Aneurysm of unspecified site; E11.29 Type 2 diabetes mellitus with other diabetic kidney complication; R80.9 Proteinuria, unspecified; G47.33 Obstructive sleep apnea (adult) (pediatric); K21.9 Gastro-esophageal reflux disease without esophagitis
CPT/HCPCS: 36415; 70450; 70496; 70498; 70551; 80048; 80061; 82962; 83036; 84484; 85025; 85027; 93005; 93246; 97161; 97165; 97535; 99284; 99285; A9270; J1815; Q9967

== ENCOUNTER 2024-05-01 12:13 | Inpatient (IN) | payer MEDICARE, SELFPAY ==
[2024-05-01] VITALS (51 sets, daily range): BP systolic 67–137; BP diastolic 55–93; PULSE 62–151; RESP 12–20; TEMP 36.2–37.1; O2SAT 95–100; BMI 28.3
--- NOTE | 2024-05-01 12:34 | ED.NURSE ---
Please see stroke protocol for further documentation
--- NOTE | 2024-05-01 12:36 | CRLHL7_ITS ---
For Patients: As a result of the Century Cures Act, medical imaging exams and procedure reports are released immediately into your electronic medical record. You may view this report before your referring provider. If you have questions, please contact your health care provider. Indication: Right hand dyskinesia Technique: Volumetric multidetector CT images of the head were obtained without the administration of low osmolar intravenous contrast. Comparison: CT head April 29, 2024 Findings: There is no intra-axial or extra-axial fluid collection. There is no mass effect or midline shift. There is age-related cortical atrophy with mild sulcal widening and ex vacuo dilatation of the lateral ventricles. There are chronic small vessel disease changes in the subcortical and periventricular white matter without lost montanez-white differentiation. Stable basal ganglia calcification is appreciated. The orbits and their contents are grossly within normal limits. The bony calvarium is grossly intact. The paranasal sinuses are clear. The mastoid air cells are well aerated. Impression: Stable age-related and chronic small-vessel disease changes of the brain without acute intracranial abnormality. A negative head report was sent to Dr. Lacey at 1:47 p.m. May 01, [address] note that all CT scans at this facility use dose modulation, iterative reconstruction, and/or weight-based dosing when appropriate to reduce radiation dose to as low as reasonably achievable. Dictated by Patel Bernabe MD @ 05/01/2024 1:49:29 PM (Electronically Signed)
[2024-05-01] MEDS: 0.9 % SODIUM CHLORIDE 500 ML 500 ML IV (12:39)
[2024-05-01] MEDS: dilTIAZem 5 MG/ML inj 20 MG IVP (12:39)
--- NOTE | 2024-05-01 12:39 | ED.NEUROSD ---
HPI - Neuro Symptoms/Deficit General Chief Complaint: Neuro Symptoms/Altered Deficit Stated Complaint: had stroke recently, having a restroke? Time Seen by Provider: 05/01/24 12:42 History of Present Illness HPI Narrative: This 78-year-old female comes in reporting some dyskinesia and her right hand that she noticed this morning. She was seen by me 2 days ago with initiation of a stroke code because she had dysarthria. Those symptoms resolved but MRI imaging did find evidence of small infarcts and small micro hemorrhages in her brain. She was admitted overnight and discharged yesterday. Her symptoms have resolved until today. She is taking Plavix and was instructed to have follow-up with the heart monitor. Today he she arrives just stating the concern about the use of her right hand but her neurologic exam is otherwise completely normal. Her vital signs however show rapid heart rate from atrial fibrillation. This is a new onset for her and may be paroxysmal increasing her risk for the findings from a couple days ago. Related Data Home Medications ?Medication ?Instructions ?Recorded ?Confirmed acetaminophen 500 mg tablet 1,000 mg PO Q6H PRN 07/28/22 05/01/24 (Tylenol Extra Strength) folic acid 1 mg tablet 1 mg PO DAILY 04/04/23 05/01/24 magnesium oxide 400 mg (241.3 mg 400 mg PO BID 04/10/23 05/01/24 magnesium) tablet clindamycin phosphate 1 % topical 1 applic topical DAILY 09/20/23 05/01/24 gel, once daily insulin glargine 100 unit/mL (3 16 - 18 unit subcut QAM 11/22/23 05/01/24 mL) subcutaneous pen minoxidil 2.5 mg tablet 2.5 mg PO DAILY 03/25/24 05/01/24 atorvastatin 10 mg tablet 10 mg PO HS 04/20/24 05/01/24 calcium 500 mg (as 1 tab PO DAILY 04/20/24 05/01/24 carbonate)-vitamin D3 10 mcg (400 unit) tablet (Calcium 500 + D) glucagon 1 mg solution for 1 mg IM DAILY 04/20/24 04/29/24 injection (Glucagon Emergency Kit) eszopiclone 2 mg tablet (Lunesta) 2 mg PO HS 05/01/24 05/01/24 nifedipine 30 mg tablet,extended mg PO 05/01/24 release 24 hr Previous Rx's ?Medication ?Instructions ?Recorded carvedilol 6.25 mg tablet 6.25 mg PO BID #180 tabs 06/23/22 gabapentin 300 mg capsule 300 mg PO BID #180 caps 08/17/23 clobetasol 0.05 % topical ointment 1 applic topical .twice weekly 12 10/06/23 months #30 grams pen needle, diabetic 31 gauge x #300 ea 12/12/23/16 (BD Ultra-Fine Mini Pen Needle) beclomethasone dipropionate 80 2 inh PO BID #10.6 grams 01/08/24 mcg/actuation HFA breath activated aerosol (Qvar RediHaler) insulin aspart U-100 100 unit/mL 15 unit (0.15 mL) subcut TIDWM #15 01/29/24 (3 mL) subcutaneous pen (Novolog mL FlexPen U-100 Insulin aspart) omeprazole 20 mg capsule,delayed 20 mg PO DAILY #90 caps 01/29/24 release albuterol sulfate 90 mcg/actuation 2 - 4 puff inhalation Q4-6H PRN 04/01/24 aerosol inhaler shortness of breath or wheezing #6.7 grams flash glucose sensor (FreeStyle #2 kits 04/08/24 Daja 14 Day Sensor kit) amoxicillin 875 mg-potassium 1 tab PO Q12H #20 tabs 04/22/24 clavulanate 125 mg tablet doxycycline hyclate 100 mg tablet 100 mg PO BID #20 tabs 04/22/24 losartan 50 mg tablet 50 mg PO DAILY #30 tabs 04/22/24 potassium chloride 10 mEq 20 meq (2 x 10 mEq) PO DAILY #60 04/22/24 capsule,extended release caps torsemide 20 mg tablet 20 mg PO DAILY #30 tabs 04/22/24 clopidogrel 75 mg tablet 75 mg PO DAILY #90 tabs 04/30/24 Allergies Allergy/AdvReac Type Severity Reaction Status Date / Time hazelnut Allergy Severe Throat Verified 04/29/24 10:07 closes and hives Sulfa (Sulfonamide Allergy Severe Anaphylaxis Verified 04/29/24 10:07 Antibiotics) adhesive Allergy Unknown Verified 04/29/24 10:07 cantaloupe Allergy Unknown Verified 04/29/24 10:07 codeine AdvReac Mild Nausea and Verified 04/29/24 10:07 Vomiting gluten AdvReac Unknown Gastrointestinal Verified 04/30/24 07:16 Upset Review of Systems Status of ROS: Reports: 10 or more systems reviewed and unremarkable except as noted in History and below Narrative: Constitutional: No fevers, no weight gain or loss. Eyes: No discharge. No vision changes. HENT: No congestion, no sore throat, no ear pain. Cardiovascular: No chest pain, no palpitations. Respiratory: No shortness of breath, no wheezes, no cough. Gastrointestinal: No abdominal pain, no vomiting, no diarrhea. Genitourinary: No dysuria, no hematuria. Musculoskeletal: Normal range of motion. Skin: No rashes, no pruritis. Neurological: No dizziness, sensory change, speech change. Right hand dysfunction temporarily as described above. Endo/Heme/Allergies: No bruising or bleeding. No polydipsia. Pysch: no suicidality, no anxiety, no insomnia. All other systems reviewed and are negative. 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.9 - Aneurysm of unspecified site (ICD-10) Heart failure with preserved ejection fraction ?I50.30 - Unspecified diastolic (congestive) heart failure (ICD-10) Aortic stenosis ?I35.0 - Nonrheumatic aortic (valve) stenosis (ICD-10) Anxiety ?F41.9 - Anxiety disorder, unspecified (ICD-10) Heart murmur ?R01.1 - Cardiac murmur, unspecified (ICD-10) Health care directive on file (09/24/20) ?Z78.9 - Other specified health status (ICD-10) Adenomatous colon polyp ?D12.6 - Benign neoplasm of colon, unspecified (ICD-10) Gluteal pain ?M79.18 - Myalgia, other site (ICD-10) Lymphedema of breast ?I89.0 - Lymphedema, not elsewhere classified (ICD-10) Microalbuminuria due to type 2 diabetes mellitus ?E11.29 - Type 2 diabetes mellitus with other diabetic kidney complication (ICD-10) ?R80.9 - Proteinuria, unspecified (ICD-10) Type 2 diabetes mellitus (07/08/09) ?E11.9 - Type 2 diabetes mellitus without complications (ICD-10) History of ischemic stroke ?Z86.73 - Personal history of transient ischemic attack (TIA), and cerebral infarction without residual deficits (ICD-10) Anemia of chronic disease ?D63.8 - Anemia in other chronic diseases classified elsewhere (ICD-10) History of upper gastrointestinal bleeding ?Z87.19 - Personal history of other diseases of the digestive system (ICD-10) Breast cancer, right breast ?C50.911 - Malignant neoplasm of unspecified site of right female breast (ICD-10) History of hemorrhoids ?Z87.19 - Personal history of other diseases of the digestive system (ICD-10) History of breast cancer ?Z85.3 - Personal history of malignant neoplasm of breast (ICD-10) Rosacea (07/08/09) ?L71.9 - Rosacea, unspecified (ICD-10) Psoriasis (12/23/11) ?L40.9 - Psoriasis, unspecified (ICD-10) Pelvic floor dysfunction in female (2018) ?M62.89 - Other specified disorders of muscle (ICD-10) Obstructive sleep apnea syndrome (2018) ?G47.33 - Obstructive sleep apnea (adult) (pediatric) (ICD-10) Irritable bowel syndrome ?K58.9 - Irritable bowel syndrome without diarrhea (ICD-10) Hypomagnesemia ?E83.42 - Hypomagnesemia (ICD-10) Essential hypertension ?I10 - Essential (primary) hypertension (ICD-10) GERD (gastroesophageal reflux disease) ?K21.9 - Gastro-esophageal reflux disease without esophagitis (ICD-10) Chronic low back pain ?M54.50 - Low back pain, unspecified (ICD-10) ?G89.29 - Other chronic pain (ICD-10) Chronic insomnia ?F51.04 - Psychophysiologic insomnia (ICD-10) Chronic hyponatremia ?E87.1 - Hypo-osmolality and hyponatremia (ICD-10) Osteoporosis (~09/2021) ?M81.0 - Age-related osteoporosis without current pathological fracture (ICD-10) Asthma (07/08/09) ?J45.909 - Unspecified asthma, uncomplicated (ICD-10) Hyperplastic polyp of intestine ?K63.5 - Polyp of colon (ICD-10) History of depression (2001) ?Z86.59 - Personal history of other mental and behavioral disorders (ICD-10) Surgical History (Updated 04/30/24 @ 10:33 by Montserrat Cash MD) Status post left foot surgery ?Z98.890 - Other specified postprocedural states (ICD-10) History of lumbar laminectomy for spinal cord decompression ?Z98.890 - Other specified postprocedural states (ICD-10) S/P breast lumpectomy (11/2021) ?Z98.890 - Other specified postprocedural states (ICD-10) History of hemorrhoidectomy ?Z98.890 - Other specified postprocedural states (ICD-10) History of basal cell carcinoma excision ?Z98.890 - Other specified postprocedural states (ICD-10) ?Z85.828 - Personal history of other malignant neoplasm of skin (ICD-10) History of foot surgery ?Z98.890 - Other specified postprocedural states (ICD-10) Hx of decompressive lumbar laminectomy ?Z98.890 - Other specified postprocedural states (ICD-10) History of cataract surgery ?Z98.49 - Cataract extraction status, unspecified eye (ICD-10) History of carpal tunnel release ?Z98.890 - Other specified postprocedural states (ICD-10) 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) ?Z96.659 - Presence of unspecified artificial knee joint (ICD-10) History of open reduction and internal fixation (ORIF) procedure (07/16/19) ?Z98.890 - Other specified postprocedural states (ICD-10) History of hysterectomy (07/08/09) ?Z90.710 - Acquired absence of both cervix and uterus (ICD-10) History of breast biopsy (07/08/09) ?Z98.890 - Other specified postprocedural states (ICD-10) History of blepharoplasty (07/08/09) ?Z98.890 - Other specified postprocedural states (ICD-10) History of bladder surgery (02/08/10) ?Z98.890 - Other specified postprocedural states (ICD-10) Family History Mother Diabetes Coronary artery disease Stroke Social History Narrative: 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 History of tobacco use She does not use recreational drugs. She rarely drinks alcohol. She has 1 biologic child, and 4 adopted children. Full code , Oren, healthcare power of banking attorney What is your current living situation?: I presently have a place to live Problems where you live: no known problems Problems where you live details: NA In the past 12 months, utilities in danger of being shut off: no In past 12 months, lack of transportation kept you from medical appts, meetings, work, or getting things needed for daily living: no In the past 12 mos, have been you worried that your food would run out before you had money to buy more?: never true In the past 12 mos, the food you bought just didn't last and you didn't have money to buy more?: never true Highest level of school completed/degree received: Master's degree Smoking Status: Never smoker Do you use any of these nicotine containing products: None Second hand tobacco smoke exposure: No How often do you have a drink containing alcohol: monthly or less Alcohol type details: twice a year How often do you have six or more drinks on one occasion: Never AUDIT-C Alcohol total score: 1 Non-prescribed substance use: denies use Caffeine: No How often does anyone, including family, friends and others, physically hurt you: never How often does anyone, including family, friends and others, insult or talk down to you: never How often does anyone, including family, friends and others, threaten you with harm: never How often does anyone, including family, friends and others, scream or curse at you: never Little interest or pleasure in doing things: not at all Feeling down, depressed, or hopeless: not at all Are you using contraception or practicing any form of control: No service: No Exam Narrative: Exam Narrative: Constitutional: Well-developed, well-nourished, no acute distress. HEENT: Normocephalic, atraumatic. Neck: Normal range of motion. Nontender. Supple. Heart: Irregular. No murmurs. Tachycardia. Intact distal pulses. Lungs: Clear to auscultation. No chest discomfort. No wheezes, rhonchi, or rales. Abdomen: Normal bowel sounds. Nontender. No rebound tenderness. Genitalia: Deferred. Back: No midline tenderness. Normal range of motion. Extremities: Normal range of motion. No injury. Skin: Intact. No rash. Warm. No erythema or pallor. Neurologic: No altered sensation. No weakness. Alert and oriented. No facial asymmetry. Tongue is midline. [id number] is normal. No pronator drift. [facility] strength is equal bilaterally. Able to raise each leg from the bed. Psychiatric: No suicidality. No anxiety or depression. No insomnia. Nursing notes and vitals signs are reviewed. Const: Vital Signs, click to edit/add: Vital Signs - 24 hr 05/01/24 12:25 05/01/24 12:25 05/01/24 12:28 Temperature 98.7 F Pulse Rate Pulse Rate [Pulse Oximeter] 151 H 151 H Respiratory Rate 20 20 Blood Pressure Blood Pressure [Ri ght Upper Arm] 106/93 H 106/93 H Pulse Oximetry 98 98 97 Oxygen Delivery Me thod Room Air Room Air Oxygen Flow Rate 05/01/24 12:40 05/01/24 12:58 05/01/24 12:59 Temperature Pulse Rate 143 H 138 H Pulse Rate [Pulse Oximeter] 103 H Respiratory Rate 12 12 Blood Pressure 91/76 Blood Pressure [Ri ght Upper Arm] 117/63 Pulse Oximetry 100 100 100 Oxygen Delivery Me thod Room Air Oxygen Flow Rate 05/01/24 13:00 05/01/24 13:02 05/01/24 13:03 Temperature Pulse Rate 132 H 135 H 118 H Pulse Rate [Pulse Oximeter] Respiratory Rate Blood Pressure 106/68 Blood Pressure [Ri ght Upper Arm] Pulse Oximetry 100 100 100 Oxygen Delivery Me thod Oxygen Flow Rate 05/01/24 13:07 05/01/24 13:12 05/01/24 13:34 Temperature Pulse Rate 129 H 100 122 H Pulse Rate [Pulse Oximeter] Respiratory Rate 20 18 Blood Pressure 106/69 109/84 123/65 Blood Pressure [Ri ght Upper Arm] Pulse Oximetry 99 100 100 Oxygen Delivery Me thod Oxygen Flow Rate 05/01/24 13:35 05/01/24 13:46 05/01/24 13:47 Temperature Pulse Rate 133 H 137 H Pulse Rate [Pulse Oximeter] Respiratory Rate Blood Pressure 112/76 Blood Pressure [Ri ght Upper Arm] Pulse Oximetry 100 100 99 Oxygen Delivery Me thod Nasal Cannula Oxygen Flow Rate 1 05/01/24 14:00 05/01/24 14:02 05/01/24 14:15 Temperature Pulse Rate 127 H 126 H 144 H Pulse Rate [Pulse Oximeter] Respiratory Rate Blood Pressure 109/73 Blood Pressure [Ri ght Upper Arm] Pulse Oximetry 100 100 100 Oxygen Delivery Me thod Oxygen Flow Rate 05/01/24 14:17 05/01/24 14:18 05/01/24 14:32 Temperature Pulse Rate 139 H 131 H Pulse Rate [Pulse Oximeter] Respiratory Rate 20 Blood Pressure 107/76 105/72 Blood Pressure [Ri ght Upper Arm] Pulse Oximetry 100 95 Oxygen Delivery Me thod Oxygen Flow Rate 05/01/24 14:33 Temperature Pulse Rate 137 H Pulse Rate [Pulse Oximeter] Respiratory Rate Blood Pressure Blood Pressure [Ri ght Upper Arm] Pulse Oximetry 100 Oxygen Delivery Me thod Oxygen Flow Rate Course Vital Signs Vital signs: Initial Vital Signs Pulse Rate 151 H 05/01/24 12:25 Respiratory Rate 20 05/01/24 12:25 Blood Pressure 106/93 H 05/01/24 12:25 Blood Pressure Mean 97 05/01/24 12:25 Blood Pressure Position Supine 05/01/24 12:25 Pulse Oximetry 98 05/01/24 12:25 Oxygen Delivery Method Room Air 05/01/24 12:25 Vital Signs Pulse Rate 151 H 05/01/24 12:25 Respiratory Rate 20 05/01/24 12:25 Blood Pressure 106/93 H 05/01/24 12:25 Pulse Oximetry 98 05/01/24 12:25 Oxygen Delivery Method Room Air 05/01/24 12:25 Temperature 98.7 F 05/01/24 12:28 Pulse Rate 137 H 05/01/24 14:33 Respiratory Rate 20 05/01/24 14:18 Blood Pressure 105/72 05/01/24 14:32 Pulse Oximetry 100 05/01/24 14:33 Oxygen Delivery Method Nasal Cannula 05/01/24 13:35 Oxygen Flow Rate 1 05/01/24 13:35 Medications Administered Medications: Discontinued Medications Generic Name Dose Route Start Last Admin Trade Name Freq PRN Reason Stop Dose Admin Diltiazem HCl 20 mg 05/01/24 12:36 05/01/24 12:39 Diltiazem 5 Mg/Ml Inj IVP 05/01/24 12:37 20 mg ONCE ONE Administration Sodium Chloride 500 mls @ 500 mls/hr 05/01/24 12:36 05/01/24 13:40 0.9 % Sodium Chloride 500 Ml IV 05/01/24 13:35 Infused .Q1H ONE Infusion MDM - Neuro Symptoms/Deficit MDM Narrative Medical decision making narrative: This patient comes in reporting some discoordination of her right hand. Upon arrival here it seems that these symptoms have resolved. Her neurologic exam is completely normal. She was discharged from the hospital yesterday after findings of both small hemorrhagic and embolic lesions in her CT and MRI scans of her head. She was discharged with the intent of having cardiac monitoring. She arrives here today unaware that she is in atrial fibrillation with rapid ventricular response. Her heart rate on arrival is around 140-150 beats per minute. An IV was established and the patient received 10 mg of diltiazem followed by another 10 mg as her blood pressure was soft. She did have improvement of her heart rate and there was a report of a brief conversion to normal sinus rhythm for about fiber 10 seconds. She has reverted back into atrial fibrillation and her rate is accelerated. A stroke code was initiated upon arrival because of her report of these symptoms and the recent visit. I did speak with Dr. Lacey who will follow the patient in the hospital. She is currently on Plavix and the plan is to stay on this treatment for now. The patient will be admitted into the hospital and placed on a diltiazem drip. I spoke with Lucie Alexander about these matters and she will arrange for admission. Lab Data Labs: Lab Results 05/01/24 05/01/24 Range/Units 12:27 14:25 WBC 9.03 (4.50-11.00) K/uL RBC 3.65 L (4.00-5.20) m/uL Hgb 11.2 L (12.0-16.0) gm/dL Hct 34.8 (33.0-51.0) % MCV 95 (80-100) fL MCH 31 (26-34) pg MCHC 32 (32-36) gm/dL RDW Coeff of Don 12.4 (11.5-15.5) % Plt Count 380 (140-440) K/uL Neut % (Auto) 83.6 H (42.0-72.0) % Lymph % (Auto) 8.5 L (20-44) % Mcnairy % (Auto) 6.3 (0.0-11.0) % Eos % (Auto) 1.1 (0.0-7.0) % Baso % (Auto) 0.3 (0.0-3.0) % Neut # (Auto) 7.50 H (1.7-7.0) K/uL Lymph # (Auto) 0.80 L (0.90-2.90) K/uL Mcnairy # (Auto) 0.60 (0.00-0.90) K/UL Eos # (Auto) 0.10 (0.00-0.50) K/uL Baso # (Auto) 0.03 (0.00-0.30) K/uL Abs Immat Gran (auto) 0.02 (0.00-0.30) K/uL Imm/Tot Granulo (auto) 0.2 % Sodium 131 L (135-149) mmol/L Potassium 3.4 L (3.6-5.1) mmol/L Chloride 96 (96-114) mmol/L Carbon Dioxide 27 (20-32) mmol/L Anion Gap 8 (7-15) mEq/L BUN 30 (7-30) mg/dL Creatinine 0.8 (0.5-1.5) mg/dL Estimated Creat Clear 41.33 Estimated GFR 76 ml/min Glucose 184 H (60-115) mg/dL Calcium 9.1 (8.4-10.6) mg/dL Magnesium 2.1 (1.5-2.6) mg/dL POC Troponin I 0.02 (0.01-0.04) ng/ml Imaging Data CT scan - head: Radiologist's impression: Stable age-related and chronic small-vessel disease changes of the brain without acute intracranial abnormality. A negative head report was sent to Dr. Lacey at 1:47 p.m. May 01, 2024 ECG Data Attestation: I personally reviewed and interpreted this ECG as follows: Interpretation: Atrial fibrillation with rapid ventricular response. Rate is 143 beats per minute. There are no specific ST or T-wave abnormalities. Repeat EKG also shows similar findings of atrial fibrillation with rapid ventricular response. The rate is 137 beats per minute. No ST or T-wave abnormalities. Discharge Plan Discharge Clinical Impression: Atrial fibrillation with rapid ventricular response Prescriptions: No Action clobetasol 0.05 % ointment 1 applic topical .twice weekly 360 Days Qty: 30 1RF acetaminophen [Tylenol Extra Strength] 500 mg tablet 1,000 mg PO Q6H PRN folic acid 1 mg tablet 1 mg PO DAILY minoxidil 2.5 mg tablet 2.5 mg PO DAILY atorvastatin 10 mg tablet 10 mg PO HS Glucagon Emergency Kit (human) 1 mg recon soln 1 mg IM DAILY calcium carbonate-vitamin D3 [Calcium 500 + D] 500 mg-10 mcg (400 unit) tablet 1 tab PO DAILY doxycycline hyclate 100 mg tablet 100 mg PO BID Qty: 20 0RF amoxicillin-pot clavulanate 875-125 mg tablet 1 tab PO Q12H Qty: 20 0RF torsemide 20 mg tablet 20 mg PO DAILY Qty: 30 2RF losartan 50 mg tablet 50 mg PO DAILY Qty: 30 0RF potassium chloride 10 mEq capsule, extended release 20 meq PO DAILY Qty: 60 0RF eszopiclone [Lunesta] 2 mg tablet 2 mg PO HS nifedipine 30 mg tablet extended release 24hr PO Patient Comments: TAKE ONE TABLET BY MOUTH ONE TIME DAILY* insulin glargine 100 unit/mL (3 mL) insulin pen 16 - 18 unit SUBCUT QAM clindamycin phosphate 1 % gel, once daily 1 applic topical DAILY clopidogrel 75 mg tablet 75 mg PO DAILY Qty: 90 2RF carvedilol 6.25 mg tablet 6.25 mg PO BID Qty: 180 0RF magnesium oxide 400 mg (241.3 mg magnesium) tablet 400 mg PO BID gabapentin 300 mg capsule 300 mg PO BID Qty: 180 2RF (DME) pen needle, diabetic [BD Ultra-Fine Mini Pen Needle] 31 gauge x 3/16 needle See Rx Instructions .ROUTE .COMPLEX Qty: 300 1RF Dose Instruction: USE TO INJECT INSULIN UP TO 6 TIMES DAILY. Rx Instructions: USE TO INJECT INSULIN UP TO 6 TIMES DAILY. Qvar RediHaler 80 mcg/actuation HFA aerosol breath activated 2 inh PO BID Qty: 10.6 8RF omeprazole 20 mg capsule,delayed release(DR/EC) 20 mg PO DAILY Qty: 90 3RF insulin aspart U-100 [Novolog FlexPen U-100 Insulin] 100 unit/mL (3 mL) insulin pen 15 unit subcut TIDWM Qty: 15 7RF Patient Comments: sliding scale base on glucose reading Rx Instructions: based on your scale albuterol sulfate 90 mcg/actuation HFA aerosol inhaler 2 - 4 puff inhalation Q4-6H PRN (Reason: shortness of breath or wheezing) Qty: 6.7 5RF (DME) [employer]Style Daja 14 Day Sensor Kit See Rx Instructions .Route Qty: 2 5RF Rx Instructions: As directed Follow Up/Referrals: Lina Meléndez MD [Primary Care Provider] -
[2024-05-01 14:09] LABS: Basophils Absolute Auto 0.03 K/uL (0.00-0.30); Basophils Percent Auto 0.3 % (0.0-3.0); Eosinophils Percent Auto 1.1 % (0.0-7.0); Hematocrit 34.8 % (33.0-51.0); Hemoglobin* 11.2 gm/dL (12.0-16.0); Immature Granulocytes Abs Auto 0.02 K/uL (0.00-0.30); Immature Granulocytes Pct Auto 0.2 %; Lymphocytes Percent Auto 8.5 % (20-44); Mean Corpuscular HGB Conc 32 gm/dL (32-36); Mean Corpuscular Hemoglobin 31 pg (26-34); Mean Corpuscular Volume 95 fL (80-100); Monocytes Percent Auto 6.3 % (0.0-11.0); Neutrophils Percent Auto 83.6 % (42.0-72.0); Platelet Count* 380 K/uL (140-440); RDW Coefficient of Variation % 12.4 % (11.5-15.5); Red Blood Count 3.65 m/uL (4.00-5.20); White Blood Count* 9.03 K/uL (4.50-11.00)
[2024-05-01 14:13] LABS: Chloride* 96 mmol/L (96-114)
[2024-05-01 14:14] LABS: Potassium* 3.4 mmol/L (3.6-5.1); Sodium* 131 mmol/L (135-149)
[2024-05-01 14:15] LABS: Slide Review Reflex No
[2024-05-01 14:16] LABS: Creatinine* 0.8 mg/dL (0.5-1.5); Est. Creatinine Clearance* 41.33; Estimated Glomerular Filt Rate 76 ml/min; Magnesium* 2.1 mg/dL (1.5-2.6)
[2024-05-01 14:17] LABS: Anion Gap 8 mEq/L (7-15); Blood Urea Nitrogen* 30 mg/dL (7-30); Calcium* 9.1 mg/dL (8.4-10.6); Carbon Dioxide* 27 mmol/L (20-32); Glucose* 184 mg/dL (60-115)
--- NOTE | 2024-05-01 14:21 | ED.NURSE ---
Patient pushed call light. She reports new mid sternal chest pain that is 9/10. EKG being redone and MD notified.
[2024-05-01 14:36] LABS: Troponin, Point-of-Care* 0.02 ng/ml (0.01-0.04)
--- NOTE | 2024-05-01 16:17 | PM.IMHP1 ---
Hospitalist- H&P: HPI History of Present Illness Date Seen: 05/01/24 Chief complaint: had stroke recently, having a restroke? Narrative: Maryam Cortez is a 78 year old female past medical history significant for recent acute CVA, history of remote ischemic CVA, type 2 diabetes mellitus, insulin dependent, HFpEF, aortic stenosis, hypokalemia, hyponatremia, hypo magnesemia, history of breast cancer, psoriasis, TC with CPAP, insomnia is admitted to the critical care floor from the ED for new onset AFib with RVR. Patient was discharged from the hospital yesterday, 04/30/2024, following an overnight stay for newly diagnosed CVA of the left middle frontal gyrus cortex with noted microhemorrhages of the left temporal lobe, bilateral parietal and frontal lobes. She returns to the ED today with complaint of new shortness of breath which she tells me she 1st noted last night when going to bed around 11:00 p.m.. Today she was doing work around the house and had to take frequent breaks to rest. She denies any palpitations or fluttering sensations notable in the chest. Denies any headache or dizziness today. Denies any chest pain today. No new fevers. No new nausea vomiting. Patient does tell me that she has had intermittent episodes of palpitations over the years, prior to her 1st CVA or being on Plavix. She had brought this up with her PCP over the years but was never seen during any of the palpitation events. A Zio patch was placed prior to discharge yesterday, however patient does not have the ivon set up to manage it. Since her most recent stroke 48 hours ago, she continues to have intermittent difficulty with thumb opposition. She also tells me this morning she had a hard time using a scissors and a butter knife. These were brief episodes, now resolved. ED provider discussed with Dr. Lacey, [facility], Neurology, who will follow her. In the ED, she was given 10 mg IV diltiazem x2, reported to have a very brief response with improved heart rate, unfortunately short-lived. Systolic blood pressures have been in the low 100s. ED provider did discuss with her cardioversion but she declined this. Review of Systems Narrative: REVIEW OF SYSTEMS: Complete review of systems performed and negative unless otherwise stated in HPI or below. [facility] Medical History Hypokalemia ?E87.6 - Hypokalemia (ICD-10) Pseudoaneurysm ?I72.9 - Aneurysm of unspecified site (ICD-10) Heart failure with preserved ejection fraction ?I50.30 - Unspecified diastolic (congestive) heart failure (ICD-10) Aortic stenosis ?I35.0 - Nonrheumatic aortic (valve) stenosis (ICD-10) Anxiety ?F41.9 - Anxiety disorder, unspecified (ICD-10) Heart murmur ?R01.1 - Cardiac murmur, unspecified (ICD-10) Health care directive on file (09/24/20) ?Z78.9 - Other specified health status (ICD-10) Adenomatous colon polyp ?D12.6 - Benign neoplasm of colon, unspecified (ICD-10) Gluteal pain ?M79.18 - Myalgia, other site (ICD-10) Lymphedema of breast ?I89.0 - Lymphedema, not elsewhere classified (ICD-10) Microalbuminuria due to type 2 diabetes mellitus ?E11.29 - Type 2 diabetes mellitus with other diabetic kidney complication (ICD-10) ?R80.9 - Proteinuria, unspecified (ICD-10) Type 2 diabetes mellitus (07/08/09) ?E11.9 - Type 2 diabetes mellitus without complications (ICD-10) History of ischemic stroke ?Z86.73 - Personal history of transient ischemic attack (TIA), and cerebral infarction without residual deficits (ICD-10) Anemia of chronic disease ?D63.8 - Anemia in other chronic diseases classified elsewhere (ICD-10) History of upper gastrointestinal bleeding ?Z87.19 - Personal history of other diseases of the digestive system (ICD-10) Breast cancer, right breast ?C50.911 - Malignant neoplasm of unspecified site of right female breast (ICD-10) History of hemorrhoids ?Z87.19 - Personal history of other diseases of the digestive system (ICD-10) History of breast cancer ?Z85.3 - Personal history of malignant neoplasm of breast (ICD-10) Rosacea (07/08/09) ?L71.9 - Rosacea, unspecified (ICD-10) Psoriasis (12/23/11) ?L40.9 - Psoriasis, unspecified (ICD-10) Pelvic floor dysfunction in female (2018) ?M62.89 - Other specified disorders of muscle (ICD-10) Obstructive sleep apnea syndrome (2018) ?G47.33 - Obstructive sleep apnea (adult) (pediatric) (ICD-10) Irritable bowel syndrome ?K58.9 - Irritable bowel syndrome without diarrhea (ICD-10) Hypomagnesemia ?E83.42 - Hypomagnesemia (ICD-10) Essential hypertension ?I10 - Essential (primary) hypertension (ICD-10) GERD (gastroesophageal reflux disease) ?K21.9 - Gastro-esophageal reflux disease without esophagitis (ICD-10) Chronic low back pain ?M54.50 - Low back pain, unspecified (ICD-10) ?G89.29 - Other chronic pain (ICD-10) Chronic insomnia ?F51.04 - Psychophysiologic insomnia (ICD-10) Chronic hyponatremia ?E87.1 - Hypo-osmolality and hyponatremia (ICD-10) Osteoporosis (~09/2021) ?M81.0 - Age-related osteoporosis without current pathological fracture (ICD-10) Asthma (07/08/09) ?J45.909 - Unspecified asthma, uncomplicated (ICD-10) Hyperplastic polyp of intestine ?K63.5 - Polyp of colon (ICD-10) History of depression (2001) ?Z86.59 - Personal history of other mental and behavioral disorders (ICD-10) Surgical History Status post left foot surgery ?Z98.890 - Other specified postprocedural states (ICD-10) History of lumbar laminectomy for spinal cord decompression ?Z98.890 - Other specified postprocedural states (ICD-10) S/P breast lumpectomy (11/2021) ?Z98.890 - Other specified postprocedural states (ICD-10) History of hemorrhoidectomy ?Z98.890 - Other specified postprocedural states (ICD-10) History of basal cell carcinoma excision ?Z98.890 - Other specified postprocedural states (ICD-10) ?Z85.828 - Personal history of other malignant neoplasm of skin (ICD-10) History of foot surgery ?Z98.890 - Other specified postprocedural states (ICD-10) Hx of decompressive lumbar laminectomy ?Z98.890 - Other specified postprocedural states (ICD-10) History of cataract surgery ?Z98.49 - Cataract extraction status, unspecified eye (ICD-10) History of carpal tunnel release ?Z98.890 - Other specified postprocedural states (ICD-10) 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) ?Z96.659 - Presence of unspecified artificial knee joint (ICD-10) History of open reduction and internal fixation (ORIF) procedure (07/16/19) ?Z98.890 - Other specified postprocedural states (ICD-10) History of hysterectomy (07/08/09) ?Z90.710 - Acquired absence of both cervix and uterus (ICD-10) History of breast biopsy (07/08/09) ?Z98.890 - Other specified postprocedural states (ICD-10) History of blepharoplasty (07/08/09) ?Z98.890 - Other specified postprocedural states (ICD-10) History of bladder surgery (02/08/10) ?Z98.890 - Other specified postprocedural states (ICD-10) Family History Mother Diabetes Coronary artery disease Stroke Social History Narrative: 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 History of tobacco use She does not use recreational drugs. She rarely drinks alcohol. She has 1 biologic child, and 4 adopted children. Full code , [employer], healthcare power of [employer] chocolate dipper What is your current living situation?: I presently have a place to live Problems where you live: no known problems Problems where you live details: N/A In the past 12 months, utilities in danger of being shut off: no In past 12 months, lack of transportation kept you from medical appts, meetings, work, or getting things needed for daily living: no In the past 12 mos, have been you worried that your food would run out before you had money to buy more?: never true In the past 12 mos, the food you bought just didn't last and you didn't have money to buy more?: never true Highest level of school completed/degree received: Master's degree Smoking Status: Never smoker Do you use any of these nicotine containing products: None Second hand tobacco smoke exposure: No How often do you have a drink containing alcohol: monthly or less Alcohol type details: twice a year How often do you have six or more drinks on one occasion: Never AUDIT-C Alcohol total score: 1 Non-prescribed substance use: denies use Caffeine: No How often does anyone, including family, friends and others, physically hurt you: never How often does anyone, including family, friends and others, insult or talk down to you: never How often does anyone, including family, friends and others, threaten you with harm: never How often does anyone, including family, friends and others, scream or curse at you: never Little interest or pleasure in doing things: not at all Feeling down, depressed, or hopeless: not at all Are you using contraception or practicing any form of control: No service: No Meds Home Medications and Allergies Home Medications ?Medication ?Instructions ?Recorded ?Confirmed ?Type acetaminophen 500 mg tablet 1,000 mg PO Q6H PRN 07/28/22 05/01/24 History (Tylenol Extra Strength) folic acid 1 mg tablet 1 mg PO DAILY 04/04/23 05/01/24 History magnesium oxide 400 mg (241.3 mg 400 mg PO BID 04/10/23 05/01/24 History magnesium) tablet clindamycin phosphate 1 % topical 1 applic topical DAILY 09/20/23 05/01/24 History gel, once daily insulin glargine 100 unit/mL (3 18 unit subcut QAM 11/22/23 05/01/24 History mL) subcutaneous pen minoxidil 2.5 mg tablet 2.5 mg PO DAILY 03/25/24 05/01/24 History atorvastatin 10 mg tablet 10 mg PO QPM 04/20/24 05/01/24 History calcium 500 mg (as 2 tab PO BID 04/20/24 05/01/24 History carbonate)-vitamin D3 10 mcg (400 unit) tablet (Calcium 500 + D) glucagon 1 mg solution for 1 mg IM DAILY PRN 04/20/24 05/01/24 History injection (Glucagon Emergency Kit) beclomethasone dipropionate 80 2 inh inhalation BID 05/01/24 05/01/24 History mcg/actuation HFA breath activated aerosol (Qvar RediHaler) betamethasone dipropionate 0.05 % 1 applic topical BID PRN 05/01/24 05/01/24 History topical cream eszopiclone 2 mg tablet (Lunesta) 2 mg PO HS 05/01/24 05/01/24 History fluticasone propionate 50 2 spray intranasal BID PRN 05/01/24 05/01/24 History mcg/actuation nasal spray,suspension gabapentin 300 mg capsule 600 mg PO QPM 05/01/24 05/01/24 History insulin aspart U-100 100 unit/mL 10 - 15 unit subcut TIDWM 05/01/24 05/01/24 History (3 mL) subcutaneous pen (Novolog FlexPen U-100 Insulin aspart) timolol maleate 0.5 % eye drops 1 drp HS 05/01/24 History valacyclovir 1 gram tablet 2,000 mg PO BID PRN 05/01/24 05/01/24 History Allergies Allergy/AdvReac Type Severity Reaction Status Date / Time hazelnut Allergy Severe Throat Verified 04/29/24 10:07 closes and hives Sulfa (Sulfonamide Allergy Severe Anaphylaxis Verified 04/29/24 10:07 Antibiotics) adhesive Allergy Unknown Verified 04/29/24 10:07 cantaloupe Allergy Unknown Verified 04/29/24 10:07 codeine AdvReac Mild Nausea and Verified 04/29/24 10:07 Vomiting gluten AdvReac Unknown Gastrointestinal Verified 04/30/24 07:16 Upset Exam Narrative: Exam Narrative: PHYSICAL EXAM General: Pleasant, conversant, NAD HEENT: Normocephalic, atraumatic, sclera white, EOMI, oral mucosa moist Cardiovascular: IRRR, No pitting edema Pulmonary: CTA bilaterally without rhonchi, rales, expiratory wheezes. No dyspnea on room air Neurological: Alert, answering questions appropriately, cranial nerves intact, no facial asymmetry or slurring of speech. no focal findings currently, thumb opposition is intact Extremities: No gross joint deformity or swelling. AROMI. Neurovascularly intact Skin: Warm, dry. Const: Vital Signs, click to edit/add: Vital Signs - 24 hr 05/01/24 12:25 05/01/24 12:25 05/01/24 12:28 Temperature 98.7 F Pulse Rate Pulse Rate [Apical ] Pulse Rate [Pulse Oximeter] 151 H 151 H Respiratory Rate 20 20 Blood Pressure Blood Pressure [Ri ght Arm] Blood Pressure [Ri ght Upper Arm] 106/93 H 106/93 H Pulse Oximetry 98 98 97 Oxygen Delivery Me thod Room Air Room Air Oxygen Flow Rate 05/01/24 12:40 05/01/24 12:58 05/01/24 12:59 Temperature Pulse Rate 143 H 138 H Pulse Rate [Apical ] Pulse Rate [Pulse Oximeter] 103 H Respiratory Rate 12 12 Blood Pressure 91/76 Blood Pressure [Ri ght Arm] Blood Pressure [Ri ght Upper Arm] 117/63 Pulse Oximetry 100 100 100 Oxygen Delivery Me thod Room Air Oxygen Flow Rate 05/01/24 13:00 05/01/24 13:02 05/01/24 13:03 Temperature Pulse Rate 132 H 135 H 118 H Pulse Rate [Apical ] Pulse Rate [Pulse Oximeter] Respiratory Rate Blood Pressure 106/68 Blood Pressure [Ri ght Arm] Blood Pressure [Ri ght Upper Arm] Pulse Oximetry 100 100 100 Oxygen Delivery Me thod Oxygen Flow Rate 05/01/24 13:07 05/01/24 13:12 05/01/24 13:34 Temperature Pulse Rate 129 H 100 122 H Pulse Rate [Apical ] Pulse Rate [Pulse Oximeter] Respiratory Rate 20 18 Blood Pressure 106/69 109/84 123/65 Blood Pressure [Ri ght Arm] Blood Pressure [Ri ght Upper Arm] Pulse Oximetry 99 100 100 Oxygen Delivery Me thod Oxygen Flow Rate 05/01/24 13:35 05/01/24 13:46 05/01/24 13:47 Temperature Pulse Rate 133 H 137 H Pulse Rate [Apical ] Pulse Rate [Pulse Oximeter] Respiratory Rate Blood Pressure 112/76 Blood Pressure [Ri ght Arm] Blood Pressure [Ri ght Upper Arm] Pulse Oximetry 100 100 99 Oxygen Delivery Me thod Nasal Cannula Oxygen Flow Rate 1 05/01/24 14:00 05/01/24 14:02 05/01/24 14:15 Temperature Pulse Rate 127 H 126 H 144 H Pulse Rate [Apical ] Pulse Rate [Pulse Oximeter] Respiratory Rate Blood Pressure 109/73 Blood Pressure [Ri ght Arm] Blood Pressure [Ri ght Upper Arm] Pulse Oximetry 100 100 100 Oxygen Delivery Me thod Oxygen Flow Rate 05/01/24 14:17 05/01/24 14:18 05/01/24 14:32 Temperature Pulse Rate 139 H 131 H Pulse Rate [Apical ] Pulse Rate [Pulse Oximeter] Respiratory Rate 20 Blood Pressure 107/76 105/72 Blood Pressure [Ri ght Arm] Blood Pressure [Ri ght Upper Arm] Pulse Oximetry 100 95 Oxygen Delivery Me thod Oxygen Flow Rate 05/01/24 14:33 05/01/24 14:47 05/01/24 14:51 Temperature Pulse Rate 137 H 149 H 114 H Pulse Rate [Apical ] Pulse Rate [Pulse Oximeter] Respiratory Rate Blood Pressure 99/77 Blood Pressure [Ri ght Arm] Blood Pressure [Ri ght Upper Arm] Pulse Oximetry 100 100 100 Oxygen Delivery Me thod Oxygen Flow Rate 05/01/24 15:00 05/01/24 15:02 05/01/24 15:25 Temperature 97.2 F L Pulse Rate 131 H 141 H Pulse Rate [Apical ] 129 H Pulse Rate [Pulse Oximeter] Respiratory Rate 16 18 Blood Pressure 133/81 Blood Pressure [Ri ght Arm] 113/88 Blood Pressure [Ri ght Upper Arm] Pulse Oximetry 100 100 95 Oxygen Delivery Me thod Room Air Oxygen Flow Rate 05/01/24 15:25 Temperature Pulse Rate 136 H Pulse Rate [Apical ] Pulse Rate [Pulse Oximeter] Respiratory Rate Blood Pressure Blood Pressure [Ri ght Arm] Blood Pressure [Ri ght Upper Arm] Pulse Oximetry Oxygen Delivery Me thod Oxygen Flow Rate Hospitalist - H&P: Result Labs Labs: Short CBC 05/01/24 Range/Units 12:27 WBC 9.03 (4.50-11.00) K/uL Hgb 11.2 L (12.0-16.0) gm/dL Hct 34.8 (33.0-51.0) % Plt Count 380 (140-440) K/uL BMP 05/01/24 12:27 Sodium 131 L Potassium 3.4 L Chloride 96 Carbon Dioxide 27 BUN 30 Creatinine 0.8 Glucose 184 H Calcium 9.1 ECG Attestation: I personally reviewed and interpreted this ECG as follows: Interpretation: AFib with RVR, rate [address] scan - head: Attestation: I have reviewed the pertinent imaging results. Radiologist's impression: Comparison: CT head April 29, 2024 Findings: There is no intra-axial or extra-axial fluid collection. There is no mass effect or midline shift. There is age-related cortical atrophy with mild sulcal widening and ex vacuo dilatation of the lateral ventricles. There are chronic small vessel disease changes in the subcortical and periventricular white matter without lost montanez-white differentiation. Stable basal ganglia calcification is appreciated. The orbits and their contents are grossly within normal limits. The bony calvarium is grossly intact. The paranasal sinuses are clear. The mastoid air cells are well aerated. Impression: Stable age-related and chronic small-vessel disease changes of the brain without acute intracranial abnormality. A negative head report was sent to Dr. Lacey at 1:47 p.m. May 01, 2024 Assessment and Plan Assessment and plan (1) Atrial fibrillation with rapid ventricular response: Problem comment: -new onset, though could question paroxysmal given intermittent episodes of palpitations over the years -start diltiazem drip given brief responses of IV diltiazem pushes in the ED. Transition to oral when appropriate -[id number] score is 8 therefore anticoagulation recommended. H/o GI bleed. Microhemorrhages noted on brain MRI. Will have team discuss risks/benefits and needs with Neurology and Cardiology tomorrow following further work up -repeat ECHO ordered (previous 04/19/24) given CVA and afib with RVR since that date -telemetry. EKG p.r.n. if converts -will need outpatient Cardiology follow up sooner rather than later Status: Acute (2) Hypokalemia: Problem comment: -acute on chronic recurrent -Potassium 3.4, recently 3.2-3.7 -will give additional 1 time dose 40 mEq now, continue home dose oral potassium 20 mEq daily, continue to monitor Status: Acute (3) Hypomagnesemia: Problem comment: -Magnesium 2.1. Will give 1 time dose 2 g IV now, recheck in a.m. Status: Acute (4) Acute CVA (cerebrovascular accident): Problem comment: Admitted 04/29/24: - Last known well prior to bedtime 04/28/24 - presented with dysarthria - CT and CTA head/neck reassuring - MRI: 1. Few small foci of diffusion restriction and T2 prolongation along the left middle frontal gyrus cortex compatible with acute ischemic infarcts. 2. Mild worsening of moderate supratentorial and infratentorial white matter changes are non-specific but most likely related to small vessel ischemic disease. Mild cerebral volume loss. 3. New small chronic lacunar infarcts in the frontal lobes and left parietal lobe. 4. Scattered remote microhemorrhages in the left temporal lobe, bilateral parietal and frontal lobes - Dr. Dao from [facility] Neurology followed: continue Plavix, not starting ASA given h/o gastritis, Zio patch in place - LDL 59, A1C 7.1; continue diabetic meds and statin upon d/c - outpatient therapies recommended On readmission 05/01: PT/OT ordered, [employer] for initial evaluation as unable to complete prior to previous discharge Neurology consult following further studies Status: Acute (5) History of ischemic stroke: Problem comment: - Ischemic thalamic stroke 2015. Symptoms were left-sided numbness which has entirely resolved; remains on Plavix Status: Acute (6) Status post left foot surgery: Problem comment: - DOS 04/15/2024. Left foot surgery for bunion, 2nd and 3rd hammertoe deformity and 3rd metatarsal fracture [address] Fink - Hospitalized 04/19-04/22 with postoperative cellulitis - continue oral Augmentin and doxycycline - was to have sutures removed in the clinic on 05/01. I have messaged Dr. Fink to let him know she is here so he can see her Status: Acute (7) Cellulitis of foot, left: Problem comment: -Postop redness and swelling following left foot surgery on 04/15/2024. Treated with vancomycin and Zosyn. Very slowly improving. -Continues on Augmentin and doxycycline -Follow-up with Dr. Richardson, superintendent system operation in [place], this week -Dr. Fink aware she has been readmitted 05/01 (unrelated) Status: Acute (8) Heart failure with preserved ejection fraction: Problem comment: TTE 04/22/2024 Final Impressions: 1. Normal LV size, normal wall thickness, normal global systolic function with an estimated EF of 65 - 70%. 2. Right ventricular cavity size is normal, global systolic RV function is normal. 3. The aortic valve is not well visualized and sclerotic, mild stenosis and no regurgitation. The aortic valve peak velocity is 2.7 m/s, the peak gradient is 29 mmHg, and the mean gradient is 16 mmHg. The aortic valve area is 1.43 cm?? with a dimensionless index of 0.51. The stroke volume index is 48.2 ml/m??. 4. The mitral valve is sclerotic, trace mitral regurgitation. 5. Mitral stenosis with moderately increased mean gradient of 6.6 mmHg at a heart rate of 76. 6. Mildly enlarged left atrium. 7. Moderately increased estimated pulmonary pressures by tricuspid regurgitation velocity and right atrial pressure (39 mmHg plus RAP) -repeat echo ordered for 05/02 given recent CVA and AFib with RVR -continue Torsemide -outpatient Cardiology f/u has been scheduled - consider moving up date if able Status: Acute (9) Type 2 diabetes mellitus: Problem comment: - Dxed 1980s, on Insulin since 2006, previously on Metformin - most recent A1c 7.2, A1C 04/30 7.1 - continue home glargine, insulin sliding scale, glucose checks ACHS Status: Acute (10) Anemia of chronic disease: Problem comment: - hemoglobin 11.2, recent baseline 8.9-11.5 - ongoing management with PCP Status: Acute (11) History of upper gastrointestinal bleeding: Problem comment: - 02/15 EGD with biopsies unremarkable, omeprazole doubled 02/15, small bowel follow through only showed GERD 03/18 - notable given recommendations for anticoagulation in setting of AFib diagnosis. Dual antiplatelet therapy was not recommended per Neurology Status: Acute (12) Obstructive sleep apnea syndrome: Problem comment: -Dxed 12/[address] Frances -use home CPAP Status: Acute (13) Essential hypertension: Problem comment: - carvedilol bid. Currently on dilt drip for afib Status: Acute (14) Chronic insomnia: Problem comment: - on zolpidem for years, changed to lunesta 04/16 Status: Acute (15) Chronic hyponatremia: Problem comment: -sodium 131, baseline 126-132, monitor Status: Acute Total Time Spent Total Time Spent: Total time spent caring for the patient today was 90 minutes. This includes time spent for the visit reviewing the chart, time spent during the visit, time spent after the visit and documentation and planning in coordination of care.
[2024-05-01] MEDS: MAGNESIUM IV 2 GM/50 ML PIGGYBACK IVPB (16:51)
[2024-05-01] MEDS: POTASSIUM CHLORIDE 10 MEQ CAPSULE ER 40 MEQ PO (16:54)
[2024-05-01] MEDS: dilTIAZem HCL 125 MG in 0.9 % SODIUM CHLORIDE 100 ml 100 ML IVPB (16:55)
[2024-05-01] MEDS: INSULIN ASPART 100 UNIT/ML SUBCUT ×2 (17:05→20:37)
[2024-05-01] MEDS: DOXYCYCLINE HYCLATE 100 MG PO (17:51)
[2024-05-01] MEDS: ATORVASTATIN 10 MG TABLET PO (17:51)
[2024-05-01] MEDS: GABAPENTIN 300 MG CAPSULE 600 MG PO (17:51)
[2024-05-01] MEDS: AMOXICILLIN/CLAVULANATE 875 mg/125 mg TABLET PO (17:51)
--- NOTE | 2024-05-01 18:12 | P.PODPN_ITS ---
Podiatry-PN: Subj Subjective Time Seen by Provider: 18:12 Date Seen: 05/01/24 Interval history: The patient seen at bedside this evening for recheck of her left foot surgery. Overall she is doing well. Not having any pain. She has been admitted for AFib. Exam Narrative: Exam Narrative: General: No distress Vascular: Palpable pedal pulses. Neuro: Diminished sensation to light touch throughout. Derm: Nearly resolved erythema and improving edema with left foot. Incisions well healed with sutures intact. No open wounds. Musculoskeletal: Excellent overall position of the toes. Solid fusion of 1st MPJ. Assessment: S/p left foot surgery Plan: Sutures removed today without incident. She will continue with compression sleeve. Continue with cam boot for weight-bearing. Weightbearing as tolerated. Continue with doxycycline. She has follow-up scheduled with myself at 6 weeks postop. Const: Vital Signs, click to edit/add: Vital Signs - 24 hr 05/01/24 12:25 05/01/24 12:25 05/01/24 12:28 Temperature 98.7 F Pulse Rate Pulse Rate [Apical ] Pulse Rate [Pulse Oximeter] 151 H 151 H Respiratory Rate 20 20 Blood Pressure Blood Pressure [Ri ght Arm] Blood Pressure [Ri ght Upper Arm] 106/93 H 106/93 H Pulse Oximetry 98 98 97 Oxygen Delivery Me thod Room Air Room Air Oxygen Flow Rate 05/01/24 12:40 05/01/24 12:58 05/01/24 12:59 Temperature Pulse Rate 143 H 138 H Pulse Rate [Apical ] Pulse Rate [Pulse Oximeter] 103 H Respiratory Rate 12 12 Blood Pressure 91/76 Blood Pressure [Ri ght Arm] Blood Pressure [Ri ght Upper Arm] 117/63 Pulse Oximetry 100 100 100 Oxygen Delivery Me thod Room Air Oxygen Flow Rate 05/01/24 13:00 05/01/24 13:02 05/01/24 13:03 Temperature Pulse Rate 132 H 135 H 118 H Pulse Rate [Apical ] Pulse Rate [Pulse Oximeter] Respiratory Rate Blood Pressure 106/68 Blood Pressure [Ri ght Arm] Blood Pressure [Ri ght Upper Arm] Pulse Oximetry 100 100 100 Oxygen Delivery Me thod Oxygen Flow Rate 05/01/24 13:07 05/01/24 13:12 05/01/24 13:34 Temperature Pulse Rate 129 H 100 122 H Pulse Rate [Apical ] Pulse Rate [Pulse Oximeter] Respiratory Rate 20 18 Blood Pressure 106/69 109/84 123/65 Blood Pressure [Ri ght Arm] Blood Pressure [Ri ght Upper Arm] Pulse Oximetry 99 100 100 Oxygen Delivery Me thod Oxygen Flow Rate 05/01/24 13:35 05/01/24 13:46 05/01/24 13:47 Temperature Pulse Rate 133 H 137 H Pulse Rate [Apical ] Pulse Rate [Pulse Oximeter] Respiratory Rate Blood Pressure 112/76 Blood Pressure [Ri ght Arm] Blood Pressure [Ri ght Upper Arm] Pulse Oximetry 100 100 99 Oxygen Delivery Me thod Nasal Cannula Oxygen Flow Rate 1 05/01/24 14:00 05/01/24 14:02 05/01/24 14:15 Temperature Pulse Rate 127 H 126 H 144 H Pulse Rate [Apical ] Pulse Rate [Pulse Oximeter] Respiratory Rate Blood Pressure 109/73 Blood Pressure [Ri ght Arm] Blood Pressure [Ri ght Upper Arm] Pulse Oximetry 100 100 100 Oxygen Delivery Me thod Oxygen Flow Rate 05/01/24 14:17 05/01/24 14:18 05/01/24 14:32 Temperature Pulse Rate 139 H 131 H Pulse Rate [Apical ] Pulse Rate [Pulse Oximeter] Respiratory Rate 20 Blood Pressure 107/76 105/72 Blood Pressure [Ri ght Arm] Blood Pressure [Ri ght Upper Arm] Pulse Oximetry 100 95 Oxygen Delivery Me thod Oxygen Flow Rate 05/01/24 14:33 05/01/24 14:47 05/01/24 14:51 Temperature Pulse Rate 137 H 149 H 114 H Pulse Rate [Apical ] Pulse Rate [Pulse Oximeter] Respiratory Rate Blood Pressure 99/77 Blood Pressure [Ri ght Arm] Blood Pressure [Ri ght Upper Arm] Pulse Oximetry 100 100 100 Oxygen Delivery Me thod Oxygen Flow Rate 05/01/24 15:00 05/01/24 15:02 05/01/24 15:25 Temperature 97.2 F L Pulse Rate 131 H 141 H Pulse Rate [Apical ] 129 H Pulse Rate [Pulse Oximeter] Respiratory Rate 16 18 Blood Pressure 133/81 Blood Pressure [Ri ght Arm] 113/88 Blood Pressure [Ri ght Upper Arm] Pulse Oximetry 100 100 95 Oxygen Delivery Me thod Room Air Oxygen Flow Rate 05/01/24 15:25 05/01/24 15:45 05/01/24 16:45 Temperature Pulse Rate 136 H Pulse Rate [Apical ] 126 H 144 H Pulse Rate [Pulse Oximeter] Respiratory Rate Blood Pressure Blood Pressure [Ri ght Arm] 121/91 H 137/90 H Blood Pressure [Ri ght Upper Arm] Pulse Oximetry Oxygen Delivery Me thod Oxygen Flow Rate 05/01/24 17:09 05/01/24 17:15 05/01/24 17:45 Temperature Pulse Rate Pulse Rate [Apical ] 129 H 131 H Pulse Rate [Pulse Oximeter] Respiratory Rate 18 Blood Pressure Blood Pressure [Ri ght Arm] 120/85 126/74 Blood Pressure [Ri ght Upper Arm] Pulse Oximetry 95 Oxygen Delivery Me thod Room Air Oxygen Flow Rate Podiatry-PN: Obj Labs Labs: Laboratory Results - last 24 hr 05/01/24 05/01/24 12:27 14:25 WBC 9.03 RBC 3.65 L Hgb 11.2 L Hct 34.8 MCV 95 MCH 31 MCHC 32 RDW Coeff of Don 12.4 Plt Count 380 Neut % (Auto) 83.6 H Lymph % (Auto) 8.5 L [place] % (Auto) 6.3 Eos % (Auto) 1.1 Baso % (Auto) 0.3 Neut # (Auto) 7.50 H Lymph # (Auto) 0.80 L [place] # (Auto) 0.60 Eos # (Auto) 0.10 Baso # (Auto) 0.03 Abs Immat Gran (auto) 0.02 Imm/Tot Granulo (auto) 0.2 Sodium 131 L Potassium 3.4 L Chloride 96 Carbon Dioxide 27 Anion Gap 8 BUN 30 Creatinine 0.8 Estimated Creat Clear 41.33 Estimated GFR 76 Glucose 184 H Calcium 9.1 Magnesium 2.1 POC Troponin I 0.02
[2024-05-01] MEDS: METOPROLOL TARTRATE 1 MG/ML inj 5 MG IVP (19:31)
[2024-05-01] MEDS: 0.9 % SODIUM CHLORIDE 1000 ml 1,000 ML 500 ML IV (20:30)
[2024-05-01] MEDS: dilTIAZem 30 MG TABLET PO (20:31)
[2024-05-01] MEDS: SODIUM CHLORIDE 0.9 % (FLUSH) 10 ML SYRINGE 5 ML IVF (20:32)
[2024-05-01] MEDS: BUDESONIDE 0.5 MG/2ML NEB NEB (20:34)
[2024-05-01] MEDS: ALBUTEROL SULFATE 2.5 MG/3 ML VIAL.NEB NEB (23:23)
[2024-05-01 23:59] LABS: Troponin I* < 0.01 ng/mL (0.01-0.04)
[2024-05-02] VITALS (20 sets, daily range): BP systolic 101–138; BP diastolic 57–91; PULSE 64–124; RESP 14–20; TEMP 36.9–37.1; O2SAT 94–100
[2024-05-02] MEDS: dilTIAZem 30 MG TABLET PO ×3 (02:13→20:19)
--- NOTE | 2024-05-02 05:59 | PC.NURSE ---
Addendum entered by Michelle Flores RN 05/02/24 06:28: Pt HR steadily increased over last hour back up to 120's, started dilt gtts at 0627 Original Note: [id number] Pt dilt gtts turned off at 0532, remains in A-flutter, rate controlled with HR in 70's. slept well during the night, pt own cpap used while sleeping. currently denies chest pain, sob, headache. ambulating to br independently, denies feeling light headed/dizzy witth activity. voiding without difficutly, denies N/V.
[2024-05-02 06:33] LABS: Hematocrit 30.8 % (33.0-51.0); Mean Corpuscular HGB Conc 33 gm/dL (32-36); Mean Corpuscular Hemoglobin 31 pg (26-34); Mean Corpuscular Volume 97 fL (80-100); Platelet Count* 313 K/uL (140-440); Red Blood Count 3.19 m/uL (4.00-5.20)
[2024-05-02 06:41] LABS: Slide Review Reflex No
[2024-05-02] MEDS: OMEPRAZOLE 20 MG CAPSULE DR PO (06:45)
[2024-05-02 06:50] LABS: Chloride* 102 mmol/L (96-114); Potassium* 4.1 mmol/L (3.6-5.1); Sodium* 133 mmol/L (135-149)
[2024-05-02 06:53] LABS: Anion Gap 6 mEq/L (7-15); Carbon Dioxide* 25 mmol/L (20-32); Creatinine* 0.6 mg/dL (0.5-1.5); Est. Creatinine Clearance* 41.33; Estimated Glomerular Filt Rate 93 ml/min
[2024-05-02 06:54] LABS: Blood Urea Nitrogen* 22 mg/dL (7-30); Calcium* 8.3 mg/dL (8.4-10.6); Glucose* 202 mg/dL (60-115); Magnesium* 2.4 mg/dL (1.5-2.6)
[2024-05-02] MEDS: INSULIN GLARGINE,HUM.REC.ANLOG 100 UNIT/ML INSULN.PEN 18 UNIT SUBCUT (07:55)
[2024-05-02] MEDS: BUDESONIDE 0.5 MG/2ML NEB NEB ×2 (08:42→20:21)
[2024-05-02] MEDS: MAGNESIUM OXIDE 400 MG TABLET PO ×2 (08:42→17:38)
[2024-05-02] MEDS: DOXYCYCLINE HYCLATE 100 MG PO ×2 (08:42→17:38)
[2024-05-02] MEDS: TORSEMIDE 20 MG TABLET PO (08:42)
[2024-05-02] MEDS: CLOPIDOGREL 75 MG TABLET PO (08:42)
[2024-05-02] MEDS: POTASSIUM CHLORIDE 10 MEQ CAPSULE ER 20 MEQ PO (08:42)
[2024-05-02] MEDS: dilTIAZem HCL 125 MG in 0.9 % SODIUM CHLORIDE 100 ml 100 ML IVPB (08:43)
[2024-05-02] MEDS: carvediloL 6.25 MG TABLET PO (08:47)
[2024-05-02] MEDS: AMOXICILLIN/CLAVULANATE 875 mg/125 mg TABLET PO ×2 (08:47→17:42)
[2024-05-02] MEDS: INSULIN ASPART 100 UNIT/ML SUBCUT ×4 (08:49→21:12)
--- NOTE | 2024-05-02 09:59 | CRLHL7_ITS ---
For Patients: As a result of the Century Cures Act, medical imaging exams and procedure reports are released immediately into your electronic medical record. You may view this report before your referring provider. If you have questions, please contact your health care provider. INDICATION: Shortness of breath TECHNIQUE: Chest 1 views. COMPARISON: Chest radiograph 04/21/2024. FINDINGS: Cardiovasculature and mediastinum: Heart size is normal. Unremarkable mediastinum. Device along left chest wall. Lungs and pleural spaces: Previously noted pulmonary edema has near completely resolved. No pneumothorax or pleural effusion. Bones and soft tissues: Partially visualized cervical hardware and left shoulder hardware. IMPRESSION: Near-complete resolution of previously noted pulmonary edema. Dictated by Mirna Cortes MD @ 05/02/2024 10:43:21 AM (Electronically Signed)
--- NOTE | 2024-05-02 10:30 | P.IMPN_ITS ---
Progress Note: A&P Assessment and plan (1) Atrial fibrillation with rapid ventricular response: Problem details: -new onset, though could question paroxysmal given intermittent episodes of palpitations over the years -status post diltiazem drip . -DC carvedilol and start metoprolol tartrate 25 b.i.d. DC p.o. diltiazem. -[id number] score is 8 therefore neurologist recommended starting anticoagulation with Eliquis on Monday. DC Plavix on Monday. - H/o GI bleed, patient used to have black stools in the past but since she underwent colonoscopy and removed 13 polyps she stopped seeing any black stools . We discussed risks/benefits and counseled the patient on following up with her PCP if she starts to see any black stools. -need to be on PPI -repeat ECHO ordered (previous 04/19/24) , echo with bubble study. -telemetry. -will need outpatient Cardiology follow up sooner rather than later if patient's need any intervention like ablation. Status: Acute (2) Acute CVA (cerebrovascular accident): Problem details: Admitted 04/29/24: - Last known well prior to bedtime 04/28/24 - presented with dysarthria - CT and CTA head/neck reassuring - MRI: 1. Few small foci of diffusion restriction and T2 prolongation along the left middle frontal gyrus cortex compatible with acute ischemic infarcts. 2. Mild worsening of moderate supratentorial and infratentorial white matter changes are non-specific but most likely related to small vessel ischemic disease. Mild cerebral volume loss. 3. New small chronic lacunar infarcts in the frontal lobes and left parietal lobe. 4. Scattered remote microhemorrhages in the left temporal lobe, bilateral parietal and frontal lobes - Dr. Dao from [facility] Neurology followed: not starting ASA given h/o gastritis, Zio patch in place - LDL 59, A1C 7.1; continue diabetic meds and statin upon d/c - outpatient therapies recommended On readmission 05/01: PT/OT ordered, [employer] for initial evaluation as unable to complete prior to previous discharge -Neurology follow-up was done on 05/02, , they mentioned that they done needs another MRI and the repeat CT scan that was done on 05/01 what was enough. -[id number] score is 8 therefore neurologist recommended starting anticoagulation with Eliquis on Monday. DC Plavix on Monday. Status: Acute (3) Hypokalemia: Problem details: -acute on chronic recurrent -Potassium 3.4, recently 3.2-3.7 -will give additional 1 time dose 40 mEq now, continue home dose oral potassium 20 mEq daily, continue to monitor Status: Resolved (4) Hypomagnesemia: Problem details: -Magnesium 2.1. Will give 1 time dose 2 g IV now, recheck in a.m. Status: Acute (5) History of ischemic stroke: Problem details: - Ischemic thalamic stroke 2016. Symptoms were left-sided numbness which has entirely resolved. -DC Plavix on Monday when we start Eliquis. Status: Inactive (6) Status post left foot surgery: Problem details: - DOS 04/15/2024. Left foot surgery for bunion, 2nd and 3rd hammertoe deformity and 3rd metatarsal fracture [address] Fink - Hospitalized 04/19-04/22 with postoperative cellulitis - continue oral Augmentin and doxycycline - was to have sutures removed in the clinic on 05/01. I have messaged Dr. Fink to let him know she is here so he can see her Status: Inactive (7) Cellulitis of foot, left: Problem details: -Postop redness and swelling following left foot surgery on 04/15/2024. Treated with vancomycin and Zosyn. Very slowly improving. -Continues on Augmentin and doxycycline -Follow-up with Dr. 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 Fink aware she has been readmitted 05/01 (unrelated) Status: Acute (8) Heart failure with preserved ejection fraction: Problem details: TTE 04/22/2024 Final Impressions: 1. Normal LV size, normal wall thickness, normal global systolic function with an estimated EF of 65 - 70%. 2. Right ventricular cavity size is normal, global systolic RV function is normal. 3. The aortic valve is not well visualized and sclerotic, mild stenosis and no regurgitation. The aortic valve peak velocity is 2.7 m/s, the peak gradient is 29 mmHg, and the mean gradient is 16 mmHg. The aortic valve area is 1.43 cm?? with a dimensionless index of 0.51. The stroke volume index is 48.2 ml/m??. 4. The mitral valve is sclerotic, trace mitral regurgitation. 5. Mitral stenosis with moderately increased mean gradient of 6.6 mmHg at a heart rate of 76. 6. Mildly enlarged left atrium. 7. Moderately increased estimated pulmonary pressures by tricuspid regurgitation velocity and right atrial pressure (39 mmHg plus RAP) -repeat echo ordered for 05/02 given recent CVA and AFib with RVR -continue Torsemide -outpatient Cardiology f/u has been scheduled - consider moving up date if able -repeat chest x-ray Status: Inactive (9) Type 2 diabetes mellitus: Problem details: - Dxed 1980s, on Insulin since 2006, previously on Metformin - most recent A1c 7.2, A1C / 7.1 - continue home glargine, insulin sliding scale, glucose checks ACHS Status: Inactive (10) Anemia of chronic disease: Problem details: - hemoglobin 11.2, recent baseline 8.9-11.5 - ongoing management with PCP Status: Inactive (11) History of upper gastrointestinal bleeding: Problem details: - 02/15 EGD with biopsies unremarkable, omeprazole doubled 02/15, small bowel follow through only showed GERD 03/18 - notable given recommendations for anticoagulation in setting of AFib diagnosis. Dual antiplatelet therapy was not recommended per Neurology Status: Acute (12) Obstructive sleep apnea syndrome: Problem details: -Dxed 12/[address] Frances -use home CPAP Status: Acute (13) Essential hypertension: Problem details: - carvedilol bid. Currently on dilt drip for afib Status: Inactive (14) Chronic insomnia: Problem details: - on zolpidem for years, changed to lunesta 04/16 Status: Acute (15) Chronic hyponatremia: Problem details: -sodium 131, baseline 126-132, monitor Status: Inactive Plan As above Time Spent With Patient Total time spent: Today I spent 50 minutes seeing the patient, reviewing Expanse and EPIC notes/diagnostics, discussing the care plan with our care time that includes social work, PT/OT, pharmacy, RT, longterm and documenting my impressions and plan in the medical record. Subjective Date Seen: 05/02/24 Interval history: The patient seen at bedside. Patient is doing well. Not having any pain. She has been admitted for AFib RVR, has been on diltiazem drip overnight, I stopped it around noon and started the patient on metoprolol 25 p.o. b.i.d. blood pressure has been tolerating this dose. Exam Narrative: Exam Narrative: Physical exam GENERAL: Comfortable, no acute distress. HEAD AND NECK: Atraumatic, normocephalic CARDIOVASCULAR: RRR. Normal S1, S2. +ve murmur noticed. RESPIRATORY: Clear to auscultation B/L. Good air entry B/L. No wheezes or rhonchi. GASTROINTESTINAL: Obese, not tender to palpation. NEUROLOGY: Alert, awake, oriented X 3. Normal speech. PSYCH: Normal mood, normal affect. Const: Vital Signs, click to edit/add: Vital Signs - 24 hr 05/01/24 12:25 05/01/24 12:25 05/01/24 12:28 Temperature 98.7 F Pulse Rate Pulse Rate [Apical ] Pulse Rate [Pulse Oximeter] 151 H 151 H Respiratory Rate 20 20 Blood Pressure Blood Pressure [Ri ght Arm] Blood Pressure [Ri ght Upper Arm] 106/93 H 106/93 H Pulse Oximetry 98 98 97 Oxygen Delivery Me thod Room Air Room Air Oxygen Flow Rate 05/01/24 12:40 05/01/24 12:58 05/01/24 12:59 Temperature Pulse Rate 143 H 138 H Pulse Rate [Apical ] Pulse Rate [Pulse Oximeter] 103 H Respiratory Rate 12 12 Blood Pressure 91/76 Blood Pressure [Ri ght Arm] Blood Pressure [Ri ght Upper Arm] 117/63 Pulse Oximetry 100 100 100 Oxygen Delivery Me thod Room Air Oxygen Flow Rate 05/01/24 13:00 05/01/24 13:02 05/01/24 13:03 Temperature Pulse Rate 132 H 135 H 118 H Pulse Rate [Apical ] Pulse Rate [Pulse Oximeter] Respiratory Rate Blood Pressure 106/68 Blood Pressure [Ri ght Arm] Blood Pressure [Ri ght Upper Arm] Pulse Oximetry 100 100 100 Oxygen Delivery Me thod Oxygen Flow Rate 05/01/24 13:07 05/01/24 13:12 05/01/24 13:34 Temperature Pulse Rate 129 H 100 122 H Pulse Rate [Apical ] Pulse Rate [Pulse Oximeter] Respiratory Rate 20 18 Blood Pressure 106/69 109/84 123/65 Blood Pressure [Ri ght Arm] Blood Pressure [Ri ght Upper Arm] Pulse Oximetry 99 100 100 Oxygen Delivery Me thod Oxygen Flow Rate 05/01/24 13:35 05/01/24 13:46 05/01/24 13:47 Temperature Pulse Rate 133 H 137 H Pulse Rate [Apical ] Pulse Rate [Pulse Oximeter] Respiratory Rate Blood Pressure 112/76 Blood Pressure [Ri ght Arm] Blood Pressure [Ri ght Upper Arm] Pulse Oximetry 100 100 99 Oxygen Delivery Me thod Nasal Cannula Oxygen Flow Rate 1 05/01/24 14:00 05/01/24 14:02 05/01/24 14:15 Temperature Pulse Rate 127 H 126 H 144 H Pulse Rate [Apical ] Pulse Rate [Pulse Oximeter] Respiratory Rate Blood Pressure 109/73 Blood Pressure [Ri ght Arm] Blood Pressure [Ri ght Upper Arm] Pulse Oximetry 100 100 100 Oxygen Delivery Me thod Oxygen Flow Rate 05/01/24 14:17 05/01/24 14:18 05/01/24 14:32 Temperature Pulse Rate 139 H 131 H Pulse Rate [Apical ] Pulse Rate [Pulse Oximeter] Respiratory Rate 20 Blood Pressure 107/76 105/72 Blood Pressure [Ri ght Arm] Blood Pressure [Ri ght Upper Arm] Pulse Oximetry 100 95 Oxygen Delivery Me thod Oxygen Flow Rate 05/01/24 14:33 05/01/24 14:47 05/01/24 14:51 Temperature Pulse Rate 137 H 149 H 114 H Pulse Rate [Apical ] Pulse Rate [Pulse Oximeter] Respiratory Rate Blood Pressure 99/77 Blood Pressure [Ri ght Arm] Blood Pressure [Ri ght Upper Arm] Pulse Oximetry 100 100 100 Oxygen Delivery Me thod Oxygen Flow Rate 05/01/24 15:00 05/01/24 15:02 05/01/24 15:25 Temperature 97.2 F L Pulse Rate 131 H 141 H Pulse Rate [Apical ] 129 H Pulse Rate [Pulse Oximeter] Respiratory Rate 16 18 Blood Pressure 133/81 Blood Pressure [Ri ght Arm] 113/88 Blood Pressure [Ri ght Upper Arm] Pulse Oximetry 100 100 95 Oxygen Delivery Me thod Room Air Oxygen Flow Rate 05/01/24 15:25 05/01/24 15:45 05/01/24 16:45 Temperature Pulse Rate 136 H Pulse Rate [Apical ] 126 H 144 H Pulse Rate [Pulse Oximeter] Respiratory Rate Blood Pressure Blood Pressure [Ri ght Arm] 121/91 H 137/90 H Blood Pressure [Ri ght Upper Arm] Pulse Oximetry Oxygen Delivery Me thod Oxygen Flow Rate 05/01/24 17:09 05/01/24 17:15 05/01/24 17:45 Temperature Pulse Rate Pulse Rate [Apical ] 129 H 131 H Pulse Rate [Pulse Oximeter] Respiratory Rate 18 Blood Pressure Blood Pressure [Ri ght Arm] 120/85 126/74 Blood Pressure [Ri ght Upper Arm] Pulse Oximetry 95 Oxygen Delivery Me thod Room Air Oxygen Flow Rate 05/01/24 18:15 05/01/24 18:45 05/01/24 19:30 Temperature Pulse Rate Pulse Rate [Apical ] 126 H 124 H Pulse Rate [Pulse Oximeter] 124 H Respiratory Rate 18 Blood Pressure Blood Pressure [Ri ght Arm] 122/55 L 115/70 122/83 Blood Pressure [Ri ght Upper Arm] Pulse Oximetry 100 Oxygen Delivery Me thod Oxygen Flow Rate 05/01/24 19:43 05/01/24 19:45 05/01/24 19:46 Temperature Pulse Rate 124 H Pulse Rate [Apical ] Pulse Rate [Pulse Oximeter] 118 H Respiratory Rate Blood Pressure Blood Pressure [Ri ght Arm] 131/92 H Blood Pressure [Ri ght Upper Arm] Pulse Oximetry Oxygen Delivery Me thod Oxygen Flow Rate 05/01/24 20:00 05/01/24 20:00 05/01/24 20:15 Temperature 98.8 F Pulse Rate Pulse Rate [Apical ] Pulse Rate [Pulse Oximeter] 123 H 118 H 94 Respiratory Rate 18 Blood Pressure Blood Pressure [Ri ght Arm] 120/79 134/89 120/92 H Blood Pressure [Ri ght Upper Arm] Pulse Oximetry 99 96 Oxygen Delivery Me thod Oxygen Flow Rate 05/01/24 20:15 05/01/24 20:20 05/01/24 20:30 Temperature Pulse Rate Pulse Rate [Apical ] Pulse Rate [Pulse Oximeter] 77 73 120 H Respiratory Rate Blood Pressure Blood Pressure [Ri ght Arm] 67/55 L 117/59 L 111/86 Blood Pressure [Ri ght Upper Arm] Pulse Oximetry 96 Oxygen Delivery Me thod Oxygen Flow Rate 05/01/24 20:45 05/01/24 21:30 05/01/24 21:45 Temperature Pulse Rate Pulse Rate [Apical ] Pulse Rate [Pulse Oximeter] 120 H 87 104 H Respiratory Rate 18 Blood Pressure Blood Pressure [Ri ght Arm] 128/83 103/70 104/70 Blood Pressure [Ri ght Upper Arm] Pulse Oximetry 96 Oxygen Delivery Me thod Room Air Oxygen Flow Rate 05/01/24 21:57 05/01/24 22:00 05/01/24 22:05 Temperature Pulse Rate Pulse Rate [Apical ] Pulse Rate [Pulse Oximeter] 124 H 126 H 118 H Respiratory Rate Blood Pressure Blood Pressure [Ri ght Arm] 109/77 109/72 130/81 Blood Pressure [Ri ght Upper Arm] Pulse Oximetry 95 97 Oxygen Delivery Me thod Room Air Room Air Oxygen Flow Rate 05/01/24 22:10 05/01/24 22:30 05/01/24 22:45 Temperature Pulse Rate Pulse Rate [Apical ] Pulse Rate [Pulse Oximeter] 80 63 70 Respiratory Rate Blood Pressure Blood Pressure [Ri ght Arm] 99/72 106/58 L 107/55 L Blood Pressure [Ri ght Upper Arm] Pulse Oximetry 96 96 97 Oxygen Delivery Me thod Room Air CPAP CPAP Oxygen Flow Rate 05/01/24 23:00 05/01/24 23:00 05/02/24 00:00 Temperature Pulse Rate 62 Pulse Rate [Apical ] Pulse Rate [Pulse Oximeter] 68 72 Respiratory Rate 16 Blood Pressure Blood Pressure [Ri ght Arm] 101/62 Blood Pressure [Ri ght Upper Arm] Pulse Oximetry 94 Oxygen Delivery Me thod CPAP Oxygen Flow Rate 05/02/24 02:00 05/02/24 03:00 05/02/24 04:00 Temperature 98.8 F Pulse Rate Pulse Rate [Apical ] Pulse Rate [Pulse Oximeter] 67 66 66 Respiratory Rate 16 16 Blood Pressure Blood Pressure [Ri ght Arm] 113/57 L 102/57 L Blood Pressure [Ri ght Upper Arm] Pulse Oximetry 97 97 Oxygen Delivery Me thod CPAP CPAP Oxygen Flow Rate 1 05/02/24 05:57 05/02/24 06:47 05/02/24 07:00 Temperature Pulse Rate 124 H Pulse Rate [Apical ] Pulse Rate [Pulse Oximeter] 78 89 Respiratory Rate 18 18 Blood Pressure Blood Pressure [Ri ght Arm] 125/59 L 120/83 Blood Pressure [Ri ght Upper Arm] Pulse Oximetry 98 100 Oxygen Delivery Me thod Room Air Room Air Oxygen Flow Rate 0 05/02/24 07:51 05/02/24 07:54 05/02/24 08:00 Temperature Pulse Rate Pulse Rate [Apical ] Pulse Rate [Pulse Oximeter] 105 H 105 H 122 H Respiratory Rate 18 18 20 Blood Pressure Blood Pressure [Ri ght Arm] 127/76 138/76 Blood Pressure [Ri ght Upper Arm] Pulse Oximetry 98 98 Oxygen Delivery Me thod Room Air Room Air Oxygen Flow Rate 05/02/24 10:00 Temperature Pulse Rate Pulse Rate [Apical ] Pulse Rate [Pulse Oximeter] 110 H Respiratory Rate Blood Pressure Blood Pressure [Ri ght Arm] 120/82 Blood Pressure [Ri ght Upper Arm] Pulse Oximetry 100 Oxygen Delivery Me thod Room Air Oxygen Flow Rate Labs Labs: Laboratory Results - last 24 hr 05/01/24 05/01/24 05/01/24 12:27 14:25 23:23 WBC 9.03 RBC 3.65 L Hgb 11.2 L Hct 34.8 MCV 95 MCH 31 MCHC 32 RDW Coeff of Don 12.4 Plt Count 380 Neut % (Auto) 83.6 H Lymph % (Auto) 8.5 L [place] % (Auto) 6.3 Eos % (Auto) 1.1 Baso % (Auto) 0.3 Neut # (Auto) 7.50 H Lymph # (Auto) 0.80 L [place] # (Auto) 0.60 Eos # (Auto) 0.10 Baso # (Auto) 0.03 Abs Immat Gran (auto) 0.02 Imm/Tot Granulo (auto) 0.2 Sodium 131 L Potassium 3.4 L Chloride 96 Carbon Dioxide 27 Anion Gap 8 BUN 30 Creatinine 0.8 Estimated Creat Clear 41.33 Estimated GFR 76 Glucose 184 H Calcium 9.1 Magnesium 2.1 Troponin I < 0.01 L POC Troponin I 0.02 05/02/24 06:13 WBC 5.10 RBC 3.19 L Hgb 10.0 L Hct 30.8 L MCV 97 MCH 31 MCHC 33 RDW Coeff of Don Plt Count 313 Neut % (Auto) Lymph % (Auto) [place] % (Auto) Eos % (Auto) Baso % (Auto) Neut # (Auto) Lymph # (Auto) [place] # (Auto) Eos # (Auto) Baso # (Auto) Abs Immat Gran (auto) Imm/Tot Granulo (auto) Sodium 133 L Potassium 4.1 Chloride 102 Carbon Dioxide 25 Anion Gap 6 L BUN 22 Creatinine 0.6 Estimated Creat Clear 41.33 Estimated GFR 93 Glucose 202 H Calcium 8.3 L Magnesium 2.4 Troponin I POC Troponin I ECG Attestation: I personally reviewed and interpreted this ECG as follows: Interpretation: EKG was showing AFib RVR
--- NOTE | 2024-05-02 11:06 | REH.OT ---
OT: Order received, chart reviewed, OT to hold due to medical status with c/o chest pressure and further workup being completed. Will recheck status and eval when appropriate.
[2024-05-02] MEDS: SODIUM CHLORIDE 0.9 % (FLUSH) 10 ML SYRINGE 5 ML IVF ×2 (11:42→20:23)
[2024-05-02] MEDS: METOPROLOL TARTRATE 25 MG TABLET PO (11:42)
--- NOTE | 2024-05-02 15:08 | PC.NURSE ---
Nursing Care Hours: [id number] Pt this shift calm and cooperative, alert and oriented. No c/o pain. Denies nausea. Tele shows A.flutter with RVR. Pt maintained on 5mg/hr Dilt drip without issue until noon. Oral metoprolol given and DC'd dilt drip d/t rate and BP parameters. Pt tolerated well. During ECHO scan, pt HR elevated to 118 and maintained for about 20min. Prior to giving scheduled metoprolol, pt HR moving between 80-105 bpm. Too low to give metoprolol per parameters, so dose held. Pt walking independently in room and in the braun with walker. Productive cough in morning noted. Relieved with scheduled neb. LS clear but diminished.
[2024-05-02] MEDS: GABAPENTIN 300 MG CAPSULE 600 MG PO (17:38)
[2024-05-02] MEDS: ATORVASTATIN 10 MG TABLET PO (17:38)
[2024-05-02] MEDS: METOPROLOL TARTRATE 25 MG TABLET 12.5 MG PO ×2 (17:42→20:18)
[2024-05-03 03:00] VITALS: BP 127/67; PULSE 63; RESP 18; TEMP 36.7; O2SAT 97
--- NOTE | 2024-05-03 05:44 | PC.NURSE ---
End of shift [id number]: Pt has been A&O, afebrile and VSS this shift. She is up independently in her room. TELE read [place] RVR beginning of shift. ordered PO Diltiazem 30mg q6H in which she received x1 dose along with her PO scheduled metoprolol and she converted to NSR at 2210. Her metoprolol q4H was increased from 12.5mg to 25mg but has not been given since the 1999 dose of 12.5 d/t parameters to hold if HR < 110 and/or if SBP < 105. Blood sugar was 280 at HS and she received 9 units Novolog. She checked it again at 0100 via her Dexacom and it read 127 so she requested a snack at that time d/t increased hunger. PIV in right FA SL and C/D/I. Pt has been utilizing her home CPAP overnight. Reports some SOB with exertion yet. Otherwise no c/o pain, nausea or dizziness. 05/02 ECHO read 70-75% EF. ?
[2024-05-03] MEDS: OMEPRAZOLE 20 MG CAPSULE DR PO (06:31)
[2024-05-03 06:39] LABS: Hematocrit 28.1 % (33.0-51.0); Hemoglobin* 9.2 gm/dL (12.0-16.0); Mean Corpuscular HGB Conc 33 gm/dL (32-36); Mean Corpuscular Hemoglobin 31 pg (26-34); Mean Corpuscular Volume 96 fL (80-100); Platelet Count* 296 K/uL (140-440); Red Blood Count 2.93 m/uL (4.00-5.20)
[2024-05-03 06:47] LABS: Slide Review Reflex No
[2024-05-03 06:56] LABS: Chloride* 101 mmol/L (96-114); Sodium* 132 mmol/L (135-149)
[2024-05-03 06:57] LABS: Potassium* 3.8 mmol/L (3.6-5.1)
[2024-05-03 06:59] LABS: Anion Gap 7 mEq/L (7-15); Carbon Dioxide* 24 mmol/L (20-32); Creatinine* 0.7 mg/dL (0.5-1.5); Est. Creatinine Clearance* 41.33; Estimated Glomerular Filt Rate 90 ml/min
[2024-05-03 07:00] VITALS: PULSE 76
[2024-05-03 07:00] LABS: Blood Urea Nitrogen* 24 mg/dL (7-30); Calcium* 8.1 mg/dL (8.4-10.6); Glucose* 196 mg/dL (60-115)
[2024-05-03 07:40] VITALS: BP 170/80; PULSE 78; RESP 18; TEMP 36.6; O2SAT 98
[2024-05-03] MEDS: INSULIN GLARGINE,HUM.REC.ANLOG 100 UNIT/ML INSULN.PEN 18 UNIT SUBCUT (08:56)
[2024-05-03] MEDS: INSULIN ASPART 100 UNIT/ML SUBCUT ×2 (08:57→12:41)
[2024-05-03] MEDS: MAGNESIUM OXIDE 400 MG TABLET PO (08:59)
[2024-05-03] MEDS: DOXYCYCLINE HYCLATE 100 MG PO (08:59)
[2024-05-03] MEDS: TORSEMIDE 20 MG TABLET PO (08:59)
[2024-05-03] MEDS: CLOPIDOGREL 75 MG TABLET PO (09:00)
[2024-05-03] MEDS: BUDESONIDE 0.5 MG/2ML NEB NEB (09:00)
[2024-05-03] MEDS: AMOXICILLIN/CLAVULANATE 875 mg/125 mg TABLET PO (09:00)
[2024-05-03] MEDS: POTASSIUM CHLORIDE 10 MEQ CAPSULE ER 20 MEQ PO (09:01)
[2024-05-03] MEDS: SODIUM CHLORIDE 0.9 % (FLUSH) 10 ML SYRINGE 5 ML IVF (09:29)
--- NOTE | 2024-05-03 09:38 | PM.DS1 ---
DS: Providers Provider Date Seen: 05/03/24 Date of admission: 05/01/24 16:15 Primary care physician: Lina Meléndez MD Admitting Clinician: Fozia Horta MD Consults: 05/01/24 16:15 Consult to Occupational Therapy [CONS] Routine Comment: Reason(s) for OT Consult:: Evaluate and Treat Any Restrictions?:: No Restrictions Consult to Physical Therapy [CONS] Routine Comment: Reason(s) for PT Consult:: Evaluate and Treat Any Restrictions?:: No Restrictions 05/01/24 17:14 Consult to Speech Therapy [CONS] Routine Comment: Reason(s) for Speech Consult:: Speaking Difficulty Comment: recent CVA Attending Physician on discharge: Yelitza Valdes MD DS: Diagnosis Discharge Diagnosis (1) Atrial fibrillation with rapid ventricular response: Status: Acute Problem details: -new onset, though could question paroxysmal given intermittent episodes of palpitations over the years -status post diltiazem drip . -DC carvedilol and start metoprolol tartrate 12.5 b.i.d. DC p.o. diltiazem. -[id number] score is 8 therefore neurologist recommended starting anticoagulation with Eliquis on Monday. DC Plavix on Monday. - H/o GI bleed, patient used to have black stools in the past but since she underwent colonoscopy and removed 13 polyps she stopped seeing any black stools . We discussed risks/benefits and counseled the patient on following up with her PCP if she starts to see any black stools. -need to be on PPI -repeat ECHO ordered (previous 04/19/24) , echo with bubble study. -telemetry. -will need outpatient Cardiology follow up sooner rather than later if patient's need any intervention like ablation. (2) Acute CVA (cerebrovascular accident): Status: Acute Problem details: Admitted 04/29/24: - Last known well prior to bedtime 04/28/24 - presented with dysarthria - CT and CTA head/neck reassuring - MRI: 1. Few small foci of diffusion restriction and T2 prolongation along the left middle frontal gyrus cortex compatible with acute ischemic infarcts. 2. Mild worsening of moderate supratentorial and infratentorial white matter changes are non-specific but most likely related to small vessel ischemic disease. Mild cerebral volume loss. 3. New small chronic lacunar infarcts in the frontal lobes and left parietal lobe. 4. Scattered remote microhemorrhages in the left temporal lobe, bilateral parietal and frontal lobes - Dr. Dao from [facility] Neurology followed: not starting ASA given h/o gastritis, Zio patch in place - LDL 59, A1C 7.1; continue diabetic meds and statin upon d/c - outpatient therapies recommended On readmission 05/01: PT/OT ordered, [employer] for initial evaluation as unable to complete prior to previous discharge -Neurology follow-up was done on 05/02, , they mentioned that they done needs another MRI and the repeat CT scan that was done on 05/01 what was enough. -[id number] score is 8 therefore neurologist recommended starting anticoagulation with Eliquis on Monday. DC Plavix on Monday. (3) Hypokalemia: Status: Resolved Problem details: -acute on chronic recurrent -Potassium 3.4, recently 3.2-3.7 -will give additional 1 time dose 40 mEq now, continue home dose oral potassium 20 mEq daily, continue to monitor (4) Hypomagnesemia: Status: Acute Problem details: Magnesium replacement started 11/06 (5) History of ischemic stroke: Status: Acute Problem details: Ischemic thalamic stroke 2016 (6) Cellulitis of foot, left: Status: Acute Problem details: -Postop redness and swelling following left foot surgery on 04/15/2024. Treated with vancomycin and Zosyn. Very slowly improving. -Continues on Augmentin and doxycycline -Follow-up with Dr. Richardson, master automotive glass technician in [place], this week -Dr. Fink aware she has been readmitted 05/01 (unrelated) (7) Heart failure with preserved ejection fraction: Status: Acute Problem details: TTE 04/22/2024 Final Impressions: 1. Normal LV size, normal wall thickness, normal global systolic function with an estimated EF of 65 - 70%. 2. Right ventricular cavity size is normal, global systolic RV function is normal. 3. The aortic valve is not well visualized and sclerotic, mild stenosis and no regurgitation. The aortic valve peak velocity is 2.7 m/s, the peak gradient is 29 mmHg, and the mean gradient is 16 mmHg. The aortic valve area is 1.43 cm?? with a dimensionless index of 0.51. The stroke volume index is 48.2 ml/m??. 4. The mitral valve is sclerotic, trace mitral regurgitation. 5. Mitral stenosis with moderately increased mean gradient of 6.6 mmHg at a heart rate of 76. 6. Mildly enlarged left atrium. 7. Moderately increased estimated pulmonary pressures by tricuspid regurgitation velocity and right atrial pressure (39 mmHg plus RAP) -repeat echo ordered for 05/02 given recent CVA and AFib with RVR -continue Torsemide -outpatient Cardiology f/u has been scheduled - consider moving up date if able -repeat chest x-ray (8) Type 2 diabetes mellitus: Status: Acute Problem details: Dxed 1980s, on Insulin since 2006, previously on Metformin (9) History of upper gastrointestinal bleeding: Status: Acute Problem details: 02/15 EGD with biopsies unremarkable, omeprazole doubled 02/15, small bowel follow through only showed GERD 03/18 (10) Obstructive sleep apnea syndrome: Status: Acute Problem details: Dxed 12/[address] Frances (11) Essential hypertension: Status: Acute Problem details: on medication, Saw nephrology, Dr. Lopez, 2020, on carvedilol, Dr. Lopez added HCTZ in 12/16 (12) Chronic insomnia: Status: Acute Problem details: - on zolpidem for years, changed to lunesta 04/16 DS: Summary Hospital Course Hospital Course: Maryam Cortez is a 78 year old female past medical history significant for type 2 diabetes mellitus, insulin dependent, hypertension, HFpEF, aortic stenosis, history of ischemic stroke 2016, TC with CPAP, insomnia, chronic low back pain, anemia of chronic disease, chronic hyponatremia is admitted to the medical floor from the ED for further management acute CVA of her recent stroke a couple of days ago, also she was found to be in AFib RVR and it's a new diagnosis for her. Patient was put on diltiazem drip and he did multiple doses of oral diltiazem in addition to beta blockers until she converted to sinus rhythm on May 02 around 10:00 p.m. we will send her home on metoprolol 12.5 b.i.d. and will stop her carvedilol due to having multiple readings of soft blood pressure. Also we will hold her other blood pressure medication until she meets her primary care physician on 05/06. Patient had a follow-up tele with her neurologist, who reviewed her CT scan that was done at the ED when patient was getting admitted and she thinks that patient does not need a repeat brain MRI as her CT scan of the head did not show any new changes. Neurologist ask for an echo with a bubble study and it was ordered. With her new diagnosis of AFib and a very high chads Vasc score, her neurologist and I discussed with the patient the risk and benefit of being on an anti coagulant specially that patient had history of melena but it was resolved after colonoscopy and removal of multiple polyps was done in the past. Patient understands the risk and agreed to start Eliquis. Neurologist states that she is okay to start Eliquis on MondayMay 06 and stop Plavix at the same time. Patient needs to follow up with her primary care physician along with the need to follow-up with cardiology to decide if they want to do any intervention like ablation for AFib. Note that she was recently diagnosed with heart failure with preserved ejection fraction, she needs also to discuss that with the cardiology team. Her we recommended the a swallow test done before discharge but the patient states that she wants to do it as an outpatient. Status at Discharge Functional status at discharge: uses cane/walker Overall status at discharge: patient is back to baseline Time Spent with Patient Time attestation: Total time spent providing and/or coordinating discharge services: 50 Exam Narrative: Exam Narrative: GENERAL: Comfortable, no acute distress. HEAD AND NECK: Atraumatic, normocephalic CARDIOVASCULAR: RRR. Normal S1, S2. +ve murmur noticed. RESPIRATORY: Clear to auscultation B/L. Good air entry B/L. No wheezes or rhonchi. GASTROINTESTINAL: Obese, not tender to palpation. NEUROLOGY: Alert, awake, oriented X 3. Normal speech. PSYCH: Normal mood, normal affect. Const: Vital Signs, click to edit/add: Vital Signs - 24 hr 05/02/24 10:00 05/02/24 11:00 05/02/24 11:00 Temperature Pulse Rate 103 H Pulse Rate [Pulse Oximeter] 110 H 71 Respiratory Rate 18 Blood Pressure [Ri ght Arm] 120/82 Pulse Oximetry 100 Oxygen Delivery Me thod Room Air 05/02/24 12:00 05/02/24 14:00 05/02/24 15:00 Temperature 98.5 F Pulse Rate Pulse Rate [Pulse Oximeter] 71 80 104 H Respiratory Rate 18 14 Blood Pressure [Ri ght Arm] 113/57 L 119/88 107/64 Pulse Oximetry 99 97 Oxygen Delivery Me thod Room Air Room Air 05/02/24 15:00 05/02/24 19:00 05/02/24 20:11 Temperature Pulse Rate 90 124 H Pulse Rate [Pulse Oximeter] 124 H Respiratory Rate 16 Blood Pressure [Ri ght Arm] Pulse Oximetry Oxygen Delivery Me thod 05/02/24 20:32 05/02/24 22:03 05/02/24 23:00 Temperature 98.5 F Pulse Rate 68 70 Pulse Rate [Pulse Oximeter] 121 H Respiratory Rate 18 Blood Pressure [Ri ght Arm] 138/91 H Pulse Oximetry 99 Oxygen Delivery Me thod Room Air 05/02/24 23:00 05/02/24 23:00 05/03/24 03:00 Temperature 98.5 F 98.1 F Pulse Rate Pulse Rate [Pulse Oximeter] 64 64 63 Respiratory Rate 16 16 18 Blood Pressure [Ri ght Arm] 125/77 127/67 Pulse Oximetry 98 97 Oxygen Delivery Me thod CPAP CPAP 05/03/24 07:00 Temperature Pulse Rate 76 Pulse Rate [Pulse Oximeter] Respiratory Rate Blood Pressure [Ri ght Arm] Pulse Oximetry Oxygen Delivery Me thod DS: Data Data Completed and Pending Labs on day of discharge: Labs from last 24 hours 05/03/24 06:25 WBC 4.90 RBC 2.93 L Hgb 9.2 L Hct 28.1 L MCV 96 MCH 31 MCHC 33 Plt Count 296 Sodium 132 L Potassium 3.8 Chloride 101 Carbon Dioxide 24 Anion Gap 7 BUN 24 Creatinine 0.7 Estimated Creat Clear 41.33 Estimated GFR 90 Glucose 196 H Calcium 8.[address] scan - head: Radiologist's impression: Technique: Volumetric multidetector CT images of the head were obtained without the administration of low osmolar intravenous contrast. Comparison: CT head April 29, 2024 Findings: There is no intra-axial or extra-axial fluid collection. There is no mass effect or midline shift. There is age-related cortical atrophy with mild sulcal widening and ex vacuo dilatation of the lateral ventricles. There are chronic small vessel disease changes in the subcortical and periventricular white matter without lost montanez-white differentiation. Stable basal ganglia calcification is appreciated. The orbits and their contents are grossly within normal limits. The bony calvarium is grossly intact. The paranasal sinuses are clear. The mastoid air cells are well aerated. Impression: Stable age-related and chronic small-vessel disease changes of the brain without acute intracranial abnormality. A negative head report was sent to Dr. Lacey at 1:47 p.m. May 01, [address] note that all CT scans at this facility use dose modulation, iterative reconstruction, and/or weight-based dosing when appropriate to reduce radiation dose to as low as reasonably achievable. Dictated by Patel Bernabe MD @ 05/01/2024 1:49:29 PM Discharge Plan Discharge Disposition: Home, Self-Care Date of Admission: 05/01/24 16:15 Attending Provider on Discharge: Yelitza Valdes Primary Care Provider: Lina Meléndez Discharge Medications: New metoprolol tartrate 25 mg tablet 12.5 mg PO BID Qty: 30 2RF Eliquis 5 mg tablet 5 mg PO BID Qty: 60 0RF Rx Instructions: Start Eliquis on MondayMay 06, please stop Plavix when you start Eliquis. Continued clobetasol 0.05 % ointment 1 applic topical .twice weekly 360 Days Qty: 30 1RF acetaminophen [Tylenol Extra Strength] 500 mg tablet 1,000 mg PO Q6H PRN folic acid 1 mg tablet 1 mg PO DAILY atorvastatin 10 mg tablet 10 mg PO QPM Glucagon Emergency Kit (human) 1 mg recon soln 1 mg IM DAILY PRN calcium carbonate-vitamin D3 [Calcium 500 + D] 500 mg-10 mcg (400 unit) tablet 2 tab PO BID doxycycline hyclate 100 mg tablet 100 mg PO BID Qty: 20 0RF amoxicillin-pot clavulanate 875-125 mg tablet 1 tab PO Q12H Qty: 20 0RF torsemide 20 mg tablet 20 mg PO DAILY Qty: 30 2RF potassium chloride 10 mEq capsule, extended release 20 meq PO DAILY Qty: 60 0RF eszopiclone [Lunesta] 2 mg tablet 2 mg PO HS betamethasone dipropionate 0.05 % cream 1 applic TOPICAL BID PRN Patient Comments: Apply topically to the affected area twice daily as needed for itching* fluticasone propionate 50 mcg/actuation spray,suspension 2 spray INTRANASAL BID PRN Patient Comments: spray 2 sprays into the nostril(s) twice a day; administer into each nostril* timolol maleate 0.5 % drops 1 drp HS Patient Comments: Apply to fingertips at bedtime.* Rx Instructions: USES ON FINGERTIPS AT BEDTIME valacyclovir 1 gram tablet 2,000 mg PO BID PRN Patient Comments: TAKE ONE TABLET BY MOUTH TWICE DAILY* Rx Instructions: 2 TABS TWICE A DAY FOR 2 DOSES FOR COLD SORE gabapentin 300 mg capsule 600 mg PO QPM insulin aspart U-100 [Novolog FlexPen U-100 Insulin] 100 unit/mL (3 mL) insulin pen 10 - 15 unit subcut TIDWM Patient Comments: sliding scale base on glucose reading Rx Instructions: based on your scale Qvar RediHaler 80 mcg/actuation HFA aerosol breath activated 2 inh inhalation BID insulin glargine 100 unit/mL (3 mL) insulin pen 18 unit SUBCUT QAM clindamycin phosphate 1 % gel, once daily 1 applic topical DAILY clopidogrel 75 mg tablet 75 mg PO DAILY Qty: 90 2RF magnesium oxide 400 mg (241.3 mg magnesium) tablet 400 mg PO BID (DME) pen needle, diabetic [BD Ultra-Fine Mini Pen Needle] 31 gauge x 3/16 needle See Rx Instructions .ROUTE .COMPLEX Qty: 300 1RF Dose Instruction: USE TO INJECT INSULIN UP TO 6 TIMES DAILY. Rx Instructions: USE TO INJECT INSULIN UP TO 6 TIMES DAILY. omeprazole 20 mg capsule,delayed release(DR/EC) 20 mg PO DAILY Qty: 90 3RF albuterol sulfate 90 mcg/actuation HFA aerosol inhaler 2 - 4 puff inhalation Q4-6H PRN (Reason: shortness of breath or wheezing) Qty: 6.7 5RF (DME) FreeStyle Daja 14 Day Sensor Kit See Rx Instructions .Route Qty: 2 5RF Rx Instructions: As directed Held minoxidil 2.5 mg tablet 2.5 mg PO DAILY Hold Instructions: Resume on 05/07/24. Hold until you meet your primary care physician. We held it due to low blood pressure. losartan 50 mg tablet 50 mg PO DAILY Qty: 30 0RF Hold Instructions: Resume on 05/07/24. Hold until you meet your primary care physician, we had held it due to low blood pressure during admission. Discontinued carvedilol 6.25 mg tablet 6.25 mg PO BID Qty: 180 0RF Discharge Orders: Discharge Order (Routine); Ordered 05/03/24 Ordered By: Yelitza Valdes Patient Education: Metoprolol (By mouth), Apixaban (By mouth), A-fib (Atrial Fibrillation) (IP) Additional Instructions: -Start Eliquis on MondayMay 06. You need to take it twice a day. Please stop taking Plavix when you start taking Eliquis. -you need to follow-up with your primary care physician to discuss AFib, any changes needed in your blood pressure medication because we held some of them due to low blood pressure during her stay. -you need to follow-up with assistant women's tennis coach as an outpatient to discuss other options for treatment, interventions like ablation. You also need to discuss with them that you have been recently diagnosed with heart failure with preserved ejection fraction. Activity Level: Activity as Tolerated Discharge Diet: Heart Healthy (2 gm sodium, low fat) Follow Up Appointments: Lina Meléndez MD [Primary Care Provider] - (Patient has appointment set-up for May.06 with PCP.) Forms: [employer] Info Instructions
[2024-05-03 12:30] VITALS: BP 166/75; PULSE 76; RESP 18; TEMP 36.8; O2SAT 99
== END 2024-05-03 13:18 | disposition home or self-care (01) | DRG 308 ==
LOC: ED 13:03 → MEDSURG 15:21
PROVIDERS: Student in an Organized Health Care Education/Training Program; Admitting Provider Physician Assistant; Emergency Provider Emergency Medicine Emergency Medical Services; PCP Internal Medicine; Visit Provider Family Medicine
DX: I48.91 Unspecified atrial fibrillation (principal); I50.31 Acute diastolic (congestive) heart failure; I63.9 Cerebral infarction, unspecified; L03.116 Cellulitis of left lower limb; E87.1 Hypo-osmolality and hyponatremia; E87.6 Hypokalemia; E83.42 Hypomagnesemia; Z86.73 Personal history of transient ischemic attack (TIA), and cerebral infarction without residual deficits; E11.9 Type 2 diabetes mellitus without complications; Z79.4 Long term (current) use of insulin; Z87.19 Personal history of other diseases of the digestive system; G47.33 Obstructive sleep apnea (adult) (pediatric); Z99.89 Dependence on other enabling machines and devices; I10 Essential (primary) hypertension; F51.04 Psychophysiologic insomnia; Z98.890 Other specified postprocedural states; Z79.01 Long term (current) use of anticoagulants; F41.9 Anxiety disorder, unspecified; D63.8 Anemia in other chronic diseases classified elsewhere; Z85.3 Personal history of malignant neoplasm of breast; K21.9 Gastro-esophageal reflux disease without esophagitis; Z86.0101 Personal history of adenomatous and serrated colon polyps
CPT/HCPCS: 36415; 70450; 71045; 80048; 82962; 83735; 84443; 84484; 85025; 85027; 93005; 93306; 94640; 94761; 97116; 97161; 97166; 99284; 99285; 99291; A9270; J1815; J3475; J3490; J7030; J7626

== ENCOUNTER 2024-05-07 04:17 | Emergency (ER) | payer MEDICARE, SELFPAY ==
[2024-05-07] VITALS (51 sets, daily range): BP systolic 39–194; BP diastolic 25–118; PULSE 79–149; RESP 18–20; TEMP 36.6; O2SAT 79–100; BMI 27.3
--- NOTE | 2024-05-07 04:29 | ED_ITS ---
HPI - General Adult General Chief complaint: Arrhythmia/Palpitations Stated complaint: fast heartbeat Time Seen by Provider: 05/07/24 04:29 History of Present Illness HPI narrative: out to dinner with friends, unsure if took metoprolol so around 2230 took 1/2 pill incase. hr 80 at that time. states around 0350 hr 111 so she decided to come in. does have SOB and light headed. denies CP. pt states she was here last week for stroke /afib. 78-year-old woman presenting to the emergency department with concern of rapid heart rate. She had been out to dinner this evening and unsure of whether not should take good her regular dose metoprolol took a half dose. Early this rosendo wells noted her heart rate higher so decided to come to the emergency department. She is feeling very fatigued and somewhat lightheaded. No chest pain. Sometimes has a sensation of tightness. Recent hospitalization with small strokes. Noted to have paroxysmal atrial fibrillation upon return to the emergency department. Was placed on a Dilt drip and also given beta-blockers ultimately converting. Reassuring echocardiogram on 05/02/2024. Heart failure with preserved ejection fraction at 70-75%. Now on Eliquis and has been taking it. Initiated on metoprolol and discontinued from carvedilol. Labs done 3 days ago. And 4 days ago included normal magnesium level at 2.4. She continues to supplement. Mild anemia. Related Data Home Medications ?Medication ?Instructions ?Recorded ?Confirmed acetaminophen 500 mg tablet 1,000 mg PO Q6H PRN 07/28/22 05/06/24 (Tylenol Extra Strength) folic acid 1 mg tablet 1 mg PO DAILY 04/04/23 05/06/24 magnesium oxide 400 mg (241.3 mg 400 mg PO BID 04/10/23 05/06/24 magnesium) tablet clindamycin phosphate 1 % topical 1 applic topical DAILY 09/20/23 05/06/24 gel, once daily insulin glargine 100 unit/mL (3 18 unit subcut QAM 11/22/23 05/06/24 mL) subcutaneous pen minoxidil 2.5 mg tablet 2.5 mg PO DAILY 03/25/24 05/06/24 atorvastatin 10 mg tablet 10 mg PO QPM 04/20/24 05/06/24 calcium 500 mg (as 2 tab PO BID 04/20/24 05/06/24 carbonate)-vitamin D3 10 mcg (400 unit) tablet (Calcium 500 + D) glucagon 1 mg solution for 1 mg IM DAILY PRN 04/20/24 05/06/24 injection (Glucagon Emergency Kit) beclomethasone dipropionate 80 2 inh inhalation BID 05/01/24 05/06/24 mcg/actuation HFA breath activated aerosol (Qvar RediHaler) betamethasone dipropionate 0.05 % 1 applic topical BID PRN 05/01/24 05/06/24 topical cream eszopiclone 2 mg tablet (Lunesta) 2 mg PO HS 05/01/24 05/06/24 fluticasone propionate 50 2 spray intranasal BID PRN 05/01/24 05/06/24 mcg/actuation nasal spray,suspension gabapentin 300 mg capsule 600 mg PO QPM 05/01/24 05/06/24 insulin aspart U-100 100 unit/mL 10 - 15 unit subcut TIDWM 05/01/24 05/06/24 (3 mL) subcutaneous pen (Novolog FlexPen U-100 Insulin aspart) timolol maleate 0.5 % eye drops 1 drp HS 05/01/24 05/06/24 valacyclovir 1 gram tablet 2,000 mg PO BID PRN 05/01/24 05/06/24 Previous Rx's ?Medication ?Instructions ?Recorded clobetasol 0.05 % topical ointment 1 applic topical .twice weekly 12 10/06/23 months #30 grams pen needle, diabetic 31 gauge x #300 ea 12/12/2309/08 (BD Ultra-Fine Mini Pen Needle) omeprazole 20 mg capsule,delayed 20 mg PO DAILY #90 caps 01/29/24 release albuterol sulfate 90 mcg/actuation 2 - 4 puff inhalation Q4-6H PRN 04/01/24 aerosol inhaler shortness of breath or wheezing #6.7 grams flash glucose sensor (FreeStyle #2 kits 04/08/24 Daja 14 Day Sensor kit) amoxicillin 875 mg-potassium 1 tab PO Q12H #20 tabs 04/22/24 clavulanate 125 mg tablet doxycycline hyclate 100 mg tablet 100 mg PO BID #20 tabs 04/22/24 potassium chloride 10 mEq 20 meq (2 x 10 mEq) PO DAILY #60 04/22/24 capsule,extended release caps torsemide 20 mg tablet 20 mg PO DAILY #30 tabs 04/22/24 apixaban 5 mg tablet (Eliquis) 5 mg PO BID afib #180 tabs 05/06/24 diazepam 2 mg tablet 1 - 2 mg (0.5 - 1 x 2 mg) PO DAILY 05/06/24 PRN muscle spasm #30 tabs losartan 50 mg tablet 50 mg PO QDAY #90 tabs 05/06/24 metoprolol tartrate 25 mg tablet 25 mg PO BID #180 tabs 05/06/24 Allergies Allergy/AdvReac Type Severity Reaction Status Date / Time hazelnut Allergy Severe Throat Verified 05/06/24 08:26 closes and hives Sulfa (Sulfonamide Allergy Severe Anaphylaxis Verified 05/06/24 08:26 Antibiotics) adhesive Allergy Unknown Verified 05/06/24 08:26 cantaloupe Allergy Unknown Verified 05/06/24 08:26 codeine AdvReac Mild Nausea and Verified 05/06/24 08:26 Vomiting gluten AdvReac Unknown Gastrointestinal Verified 05/06/24 08:26 Upset Review of Systems Status of ROS: Reports: 6 or more systems reviewed and unremarkable except as noted in History and below [facility] Medical History History of hemorrhoids ?Z87.19 - Personal history of other diseases of the digestive system (ICD-10) History of upper gastrointestinal bleeding ?Z87.19 - Personal history of other diseases of the digestive system (ICD-10) Breast cancer, right breast ?C50.911 - Malignant neoplasm of unspecified site of right female breast (ICD-10) History of depression (2001) ?Z86.59 - Personal history of other mental and behavioral disorders (ICD-10) Surgical History Status post left foot surgery ?Z98.890 - Other specified postprocedural states (ICD-10) History of lumbar laminectomy for spinal cord decompression ?Z98.890 - Other specified postprocedural states (ICD-10) S/P breast lumpectomy (11/2021) ?Z98.890 - Other specified postprocedural states (ICD-10) History of hemorrhoidectomy ?Z98.890 - Other specified postprocedural states (ICD-10) History of basal cell carcinoma excision ?Z98.890 - Other specified postprocedural states (ICD-10) ?Z85.828 - Personal history of other malignant neoplasm of skin (ICD-10) History of foot surgery ?Z98.890 - Other specified postprocedural states (ICD-10) Hx of decompressive lumbar laminectomy ?Z98.890 - Other specified postprocedural states (ICD-10) History of cataract surgery ?Z98.49 - Cataract extraction status, unspecified eye (ICD-10) History of carpal tunnel release ?Z98.890 - Other specified postprocedural states (ICD-10) 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) ?Z96.659 - Presence of unspecified artificial knee joint (ICD-10) History of open reduction and internal fixation (ORIF) procedure (07/16/19) ?Z98.890 - Other specified postprocedural states (ICD-10) History of hysterectomy (07/08/09) ?Z90.710 - Acquired absence of both cervix and uterus (ICD-10) History of breast biopsy (07/08/09) ?Z98.890 - Other specified postprocedural states (ICD-10) History of blepharoplasty (07/08/09) ?Z98.890 - Other specified postprocedural states (ICD-10) History of bladder surgery (02/08/10) ?Z98.890 - Other specified postprocedural states (ICD-10) Family History Mother Diabetes Coronary artery disease Stroke Social History Narrative: 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 History of tobacco use She does not use recreational drugs. She rarely drinks alcohol. She has 1 biologic child, and 4 adopted children. Full code , Oren, healthcare power of staff attorney What is your current living situation?: I presently have a place to live Problems where you live: no known problems Problems where you live details: N/A In the past 12 months, utilities in danger of being shut off: no In the past 12 mos, have been you worried that your food would run out before you had money to buy more?: never true In the past 12 mos, the food you bought just didn't last and you didn't have money to buy more?: never true Highest level of school completed/degree received: Master's degree Smoking Status: Never smoker Do you use any of these nicotine containing products: None Second hand tobacco smoke exposure: No How often do you have a drink containing alcohol: monthly or less Alcohol type details: twice a year How often do you have six or more drinks on one occasion: Never AUDIT-C Alcohol total score: 1 Non-prescribed substance use: denies use Caffeine: No How often does anyone, including family, friends and others, physically hurt you : never How often does anyone, including family, friends and others, insult or talk down to you: never How often does anyone, including family, friends and others, threaten you with harm: never How often does anyone, including family, friends and others, scream or curse at you: never Are you using contraception or practicing any form of control: No service: No Exam Narrative: Exam Narrative: Pleasant. Understandably little annoyed at return to hospital. Heart is tachycardic in a regular rhythm. Extremities are without edema though with walking boot on left foot/ankle. Lungs are clear. Cranial nerves 2-12 to be intact. Moving all extremities without difficulty. Chest with ZIO patch in place. Const: Vital Signs, click to edit/add: Vital Signs - 24 hr 05/07/24 04:26 05/07/24 04:46 05/07/24 04:53 Temperature 97.9 F Pulse Rate 141 H Pulse Rate [Pulse Oximeter] 147 H Respiratory Rate 18 20 Blood Pressure 150/94 H Blood Pressure [Ri ght Upper Arm] 180/114 H Pulse Oximetry 96 99 96 Oxygen Delivery Me thod Room Air 05/07/24 05:01 05/07/24 05:16 05/07/24 05:31 Temperature Pulse Rate 131 H 129 H 135 H Pulse Rate [Pulse Oximeter] Respiratory Rate 20 20 20 Blood Pressure 138/87 153/92 H 125/95 H Blood Pressure [Ri ght Upper Arm] Pulse Oximetry 100 97 93 Oxygen Delivery Me thod 05/07/24 05:46 05/07/24 06:17 05/07/24 06:40 Temperature Pulse Rate 130 H 128 H 137 H Pulse Rate [Pulse Oximeter] Respiratory Rate 20 20 20 Blood Pressure 138/101 H 194/118 H 138/104 H Blood Pressure [Ri ght Upper Arm] Pulse Oximetry 95 96 99 Oxygen Delivery Me thod Documenting provider has reviewed patient's vital signs: yes Course Vital Signs Vital signs: Initial Vital Signs Temperature 97.9 F 05/07/24 04:26 Temperature Source Temporal Artery Scan 05/07/24 04:26 Pulse Rate 147 H 05/07/24 04:26 Respiratory Rate 18 05/07/24 04:26 Blood Pressure 180/114 H 05/07/24 04:26 Blood Pressure Mean 136 H 05/07/24 04:26 Blood Pressure Position Sitting 05/07/24 04:26 Pulse Oximetry 96 05/07/24 04:26 Oxygen Delivery Method Room Air 05/07/24 04:26 Vital Signs Temperature 97.9 F 05/07/24 04:26 Pulse Rate 147 H 05/07/24 04:26 Respiratory Rate 18 05/07/24 04:26 Blood Pressure 180/114 H 05/07/24 04:26 Pulse Oximetry 96 05/07/24 04:26 Oxygen Delivery Method Room Air 05/07/24 04:26 Temperature 97.9 F 05/07/24 04:26 Pulse Rate 137 H 05/07/24 06:40 Respiratory Rate 20 05/07/24 06:40 Blood Pressure 138/104 H 05/07/24 06:40 Pulse Oximetry 99 05/07/24 06:40 Oxygen Delivery Method Room Air 05/07/24 04:26 Medications Administered Medications: Discontinued Medications Generic Name Dose Route Start Last Admin Trade Name Freq PRN Reason Stop Dose Admin Sodium Chloride 500 mls @ 1,000 mls/hr 05/07/24 04:40 05/07/24 05:19 0.9 % Sodium Chloride 500 Ml IV 05/07/24 05:09 Infused .Q30M ONE Infusion Insulin Human Regular 10 unit 05/07/24 07:15 05/07/24 07:41 Insulin Regular, Human 100 Unit/Ml Vial IVP 05/07/24 07:16 10 unit ONCE ONE Administration Metoprolol Tartrate 5 mg 05/07/24 04:40 05/07/24 04:47 Metoprolol Tartrate 1 Mg/Ml Inj IVP 05/07/24 04:41 5 mg ONCE ONE Administration Metoprolol Tartrate 12.5 mg 05/07/24 05:12 05/07/24 05:18 Metoprolol Tartrate 25 Mg Tablet PO 05/07/24 05:13 12.5 mg ONCE ONE Administration Medical Decision Making MDM Narrative Medical decision making narrative: I do received an EKG prior to seeing Ms. Cortez. Inferior leads with some mild depression and does appear to be in a sinus tachycardia at 145 If there is troponin leak would expect it to be rate-related. Just had recent reassuring labs. I would like to focus on rate control and alleviation of symptoms. IV established Given normal saline bolus and 2.5 and then another 2.5 mg of metoprolol in short order. This did little to change rate. Also then given usual oral metoprolol dosing. On reassessment is still tachycardic though with some [id number] variability in the 70s but generally 120s 130s 140s. Still does appear to be in a sinus tachycardia. Meds ineffective at rate control will likely need to initiate full workup. Would consider dosing adenosine however this is not clearly a supraventricular tachycardia. Anticipating discussing this with Cardiology shortly. Waiting Ms. Cortez to clear a spate of coughing. Perhaps this will be a useful Valsalva maneuver. Cardiology without further recommendations at this time requesting more extensive workup. Pending labs. One-view chest reviewed by me looks to be WNL. Radiology over-read below TECHNIQUE: Single view examination FINDINGS: TUBES AND LINES: None. HEART AND MEDIASTINUM: The heart size is normal. The mediastinal contour appears normal for patient age. LUNGS AND PLEURAL SPACES: Mild vascular congestion without overt edema.The pleural spaces are unremarkable. OSSEOUS STRUCTURES: Degenerative changes, scoliosis and postoperative changes of the spine and visualized left humerus. IMPRESSION: Vascular congestion pattern is similar to the prior study. No overt edema. Blood sugar is elevated. Will treat with a bolus of regular insulin Will need better rate control. Notably troponin was not elevated. D-dimer is moderately elevated; perhaps not surprising in this patient as could be multifactorial. I would note again is anticoagulated with Eliquis. Does not have chest pain nor with hypoxia. However will request CTA chest. Signing off at change of shift pending CTA chest Medical Records Medical records reviewed: Yes I reviewed the patient's medical records Lab Data Lab results reviewed: Yes I reviewed the patient's lab results Labs: Lab Results 05/07/24 Range/Units 04:50 WBC 6.33 (4.50-11.00) K/uL RBC 3.73 L (4.00-5.20) m/uL Hgb 11.7 L (12.0-16.0) gm/dL Hct 34.9 (33.0-51.0) % MCV 94 (80-100) fL MCH 31 (26-34) pg MCHC 34 (32-36) gm/dL RDW Coeff of Don 12.3 (11.5-15.5) % Plt Count 362 (140-440) K/uL Neut % (Auto) 72.5 H (42.0-72.0) % Lymph % (Auto) 15.2 L (20-44) % Mchenry % (Auto) 9.6 (0.0-11.0) % Eos % (Auto) 1.9 (0.0-7.0) % Baso % (Auto) 0.6 (0.0-3.0) % Neut # (Auto) 4.60 (1.7-7.0) K/uL Lymph # (Auto) 1.00 (0.90-2.90) K/uL Mchenry # (Auto) 0.60 (0.00-0.90) K/UL Eos # (Auto) 0.12 (0.00-0.50) K/uL Baso # (Auto) 0.04 (0.00-0.30) K/uL Abs Immat Gran (auto) 0.01 (0.00-0.30) K/uL Imm/Tot Granulo (auto) 0.2 % D-Dimer Quant (PE/DVT) 1.45 H (0.00-0.50) ug/ml Sodium 129 L (135-149) mmol/L Potassium 4.0 (3.6-5.1) mmol/L Chloride 94 L (96-114) mmol/L Carbon Dioxide 25 (20-32) mmol/L Anion Gap 10 (7-15) mEq/L BUN 26 (7-30) mg/dL Creatinine 0.7 (0.5-1.5) mg/dL Estimated Creat Clear 43.07 Estimated GFR 90 ml/min Glucose 267 H (60-115) mg/dL Calcium 9.8 (8.4-10.6) mg/dL Magnesium 2.2 (1.5-2.6) mg/dL Troponin I < 0.01 L (0.01-0.04) ng/mL NT-Pro-B Natriuret Pep 445 pg/mL Discharge Plan Discharge Prescriptions: No Action clobetasol 0.05 % ointment 1 applic topical .twice weekly 360 Days Qty: 30 1RF acetaminophen [Tylenol Extra Strength] 500 mg tablet 1,000 mg PO Q6H PRN folic acid 1 mg tablet 1 mg PO DAILY minoxidil 2.5 mg tablet 2.5 mg PO DAILY diazepam 2 mg tablet 1 - 2 mg PO DAILY PRN (Reason: muscle spasm) Qty: 30 2RF losartan 50 mg tablet 50 mg PO QDAY Qty: 90 3RF metoprolol tartrate 25 mg tablet 25 mg PO BID Qty: 180 3RF Eliquis 5 mg tablet 5 mg PO BID Qty: 180 3RF atorvastatin 10 mg tablet 10 mg PO QPM Glucagon Emergency Kit (human) 1 mg recon soln 1 mg IM DAILY PRN calcium carbonate-vitamin D3 [Calcium 500 + D] 500 mg-10 mcg (400 unit) tablet 2 tab PO BID doxycycline hyclate 100 mg tablet 100 mg PO BID Qty: 20 0RF amoxicillin-pot clavulanate 875-125 mg tablet 1 tab PO Q12H Qty: 20 0RF torsemide 20 mg tablet 20 mg PO DAILY Qty: 30 2RF potassium chloride 10 mEq capsule, extended release 20 meq PO DAILY Qty: 60 0RF eszopiclone [Lunesta] 2 mg tablet 2 mg PO HS betamethasone dipropionate 0.05 % cream 1 applic TOPICAL BID PRN Patient Comments: Apply topically to the affected area twice daily as needed for itching* fluticasone propionate 50 mcg/actuation spray,suspension 2 spray INTRANASAL BID PRN Patient Comments: spray 2 sprays into the nostril(s) twice a day; administer into each nostril* timolol maleate 0.5 % drops 1 drp HS Patient Comments: Apply to fingertips at bedtime.* Rx Instructions: USES ON FINGERTIPS AT BEDTIME valacyclovir 1 gram tablet 2,000 mg PO BID PRN Patient Comments: TAKE ONE TABLET BY MOUTH TWICE DAILY* Rx Instructions: 2 TABS TWICE A DAY FOR 2 DOSES FOR COLD SORE gabapentin 300 mg capsule 600 mg PO QPM insulin aspart U-100 [Novolog FlexPen U-100 Insulin] 100 unit/mL (3 mL) insulin pen 10 - 15 unit subcut TIDWM Patient Comments: sliding scale base on glucose reading Rx Instructions: based on your scale Qvar RediHaler 80 mcg/actuation HFA aerosol breath activated 2 inh inhalation BID insulin glargine 100 unit/mL (3 mL) insulin pen 18 unit SUBCUT QAM clindamycin phosphate 1 % gel, once daily 1 applic topical DAILY magnesium oxide 400 mg (241.3 mg magnesium) tablet 400 mg PO BID (DME) pen needle, diabetic [BD Ultra-Fine Mini Pen Needle] 31 gauge x 3/16 needle See Rx Instructions .ROUTE .COMPLEX Qty: 300 1RF Dose Instruction: USE TO INJECT INSULIN UP TO 6 TIMES DAILY. Rx Instructions: USE TO INJECT INSULIN UP TO 6 TIMES DAILY. omeprazole 20 mg capsule,delayed release(DR/EC) 20 mg PO DAILY Qty: 90 3RF albuterol sulfate 90 mcg/actuation HFA aerosol inhaler 2 - 4 puff inhalation Q4-6H PRN (Reason: shortness of breath or wheezing) Qty: 6.7 5RF (DME) FreeStyle Daja 14 Day Sensor Kit See Rx Instructions .Route Qty: 2 5RF Rx Instructions: As directed Follow Up/Referrals: Lina Meléndez MD [Primary Care Provider] -
[2024-05-07] MEDS: 0.9 % SODIUM CHLORIDE 500 ML 500 ML 1000 ML IV (04:47)
[2024-05-07] MEDS: METOPROLOL TARTRATE 1 MG/ML inj 5 MG IVP (04:47)
--- OUTSIDE RECORDS SUMMARY | 2024-05-07 04:48 | XMS_ITS | Clinical Summary ---
Author Organization [facility] Address [address] [place] [address] Care Team Providers Care Suppression Crew Leader Name Role Phone Unavailable Primary Care Provider Unavailabl e Source Comments Patient records contain information from all sites at [facility]. For routine questions regarding patient records, call [phone] during business hours, M-F 8:00 AM - 5:00 PM Central Time. Record requests for emergency care only can be directed to [phone] at any time.[facility] Allergies Active Allergy Reactions Criticality Noted [...] Documentation Division of Nephrology and Hypertension in [place], [place] [address] [place] [address] Joshua Lopez Jr., D.O. 02/06/2024 3:30 PM CDT External Outreach Division of Nephrology and Hypertension in [place], [place] [address] [place] [address] Joshua Lopez Jr., D.O. Hypertensive Chronic Kidney [...] How often do you attend chur or voodoo services? More than 4 times per year 02/12/2022 Do you belong to any clubs o r organizations such as pentecostalism groups, unions, fraternal or [...] and heating? Somewhat hard 02/12/2022 [facility] Occup[facility] - Occupational Stress [...] on file Legal Sex Female 12:47 PM [employer] SAL[employer]IST[employer] Gender Identity Not on file Sexual Orientation [...] Most Recently Relevant to Health Maintenance Insurance [facility]
--- OUTSIDE RECORDS SUMMARY | 2024-05-07 04:48 | XMS_ITS | Clinical Summary ---
Author Organization #[employer] [facility] Address [place], [place] [address] Care Team Providers Care Outside Sales Representative Name Role Phone Lina Meléndez MD Primary Care Provider [phone]- [phone] Allergies Active Allergy Reactions Criticality Noted Date [...] bedtime. 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[employer]) 2 Active continuous glucose monitor SENSOR KIT ([employer]) 2 Active bd insulin pen needle uf [...] SQUARED TOE POST OP SHOE, MEDIUM, REF: [phone] 1 Each 4 Active nystatin (MYCOSTATIN) 100,000 [...] Encounters Date Type Department Care Team Description 05/06/2024 [facility] [address] [facility] [address] [place] [address] Lalito Perdue DO Surgery Scheduled (Knee revision cancellation) 05/06/2024 Telephone [facility] [address] [place] [address] Rex Fink DPM Questions (Dental cleaning?) 05/02/2024 4:00 PM MARINE STEWARD Ancillary Procedure [facility] [address] [place] [address] 05/02/2024 Office Visit [facility] [address] [place] [phone] Anabella Lacey DO 05/01/2024 Telephone [facility] [address] [place] [address] Rex Fink DPM Appointment (Cancelled Appt Due to Hospitalization) 04/30/2024 Office Visit [facility] [address] [place] [phone] Bola Dao MBBS Telehealth ([facility]) 04/26/2024 Travel 04/24/2024 9:50 AM CDT Ancillary Procedure [facility] [address] [place] [address] 04/24/2024 9:30 AM CDT Office Visit [facility] [address] [place] [address] Misael Richardson DPM Foot Problem (DOS: 04/15/24 left foot) 04/24/2024 Travel 04/22/2024 3:00 PM CDT Ancillary Procedure [facility] [address] [place] [address] 04/22/2024 Telephone [facility] [address] [place] [address] Misael Richardson DPM Appointment 04/19/2024 Orders Only [facility] Scanner 1 scan: (1-Ord) [facility], FOOT LT MIN 3V, 04/19/2024 04/19/2024 Telephone [facility] [address] [place] [address] Rex Fink DPMaria De Jesus Questions 04/19/2024 Nurse Triage [facility] [address] [place] [address] Rex Fink DPMaria De Jesus Post-op Pain/problem 04/17/2024 3:30 PM CDT Ancillary Procedure [facility] [address] [place] [address] 04/17/2024 3:15 PM CDT Office Visit [facility] [address] [place] [address] Rex Fink DPM Post-op (Left foot, DOS 04/15/24, initial post op) 04/16/2024 10:20 AM CDT Office Visit [facility] [address] [place] [address] Stevan Nixon MD Musculoskeletal Problem (Consultation for RIGHT Hip Pain ) 04/16/2024 Telephone [facility] [address] [place] [address] Rex Fink DPM Surgical Followup 04/16/2024 Travel 04/15/2024 8:00 AM CDT Office Visit [facility] [address] [place] [address] Rex Fink DPM Surgery Scheduled 04/15/2024 Orders Only [facility] Scanner 1 scan: (1-Ord) [facility], XR FOOT LT 2V, 04/15/2024 04/15/2024 Orders Only [facility] Scanner 1 scan: (1-Ord) [facility], MPJ FUSION/HAMMERTOE REPAIR, 04/15/2024 04/12/2024 Travel 04/10/2024 Telephone [facility] [address] [facility] [address] [place] [address] Gabriela Garcia MD Appointment Request 04/10/2024 Travel 04/08/2024 Telephone [facility] [address] [facility] [address] [place] [address] Lalito Perdue DO SURGERY RESCHEDULE 04/03/2024 3:00 PM CDT Ancillary Procedure [facility] [address] [place] [address] 04/03/2024 2:45 PM CDT Office Visit [facility] [address] [place] [address] Rex Fink DPM Follow Up (Left foot ) 04/03/2024 Travel 04/02/2024 2:20 PM CDT Ancillary Procedure [facility] [address] [address] 04/02/2024 2:00 PM CDT Office Visit [facility] [address] [facility] [address] [place] [address] Lalito Perdue DO Hip Pain/problem (Right Hip Pain) 04/02/2024 Travel 04/02/2024 Nurse Triage [facility] Nurse Triage Lina Meléndez MD Lower Back Pain (Severe x 4 to 5 days.) 03/29/2024 Travel 03/28/2024 Travel 03/19/2024 3:45 PM CDT Ancillary Procedure [facility] [address] [place] [address] 03/19/2024 3:30 PM CDT Office Visit [facility] [address] [place] [address] Rex Fink DPM Consult (Left final surgical consult, DOS 04/01/24/Right foot pain since 03/18/24) 03/19/2024 Travel 03/14/2024 3:10 PM CDT Ancillary Procedure [facility] [address] [facility] [address] [place] [address] 03/14/2024 2:45 PM CDT Office Visit [facility] [address] [facility] [address] [place] [address] Lalito Perdue DO Knee Pain/problem (Left knee pain) 03/14/2024 Orders Only [facility] [address] [facility] [address] [place] [address] Lalito Perdue DO <No scans attached> 03/14/2024 Travel 03/12/2024 Medical Messaging [facility] [address] [place] [address] Rex Fink DPM left foot surgery 03/12/2024 Telephone [facility] [address] [facility] [address] [place] [address] Lalito Pedrue DO CALLBACK (scheduling left knee surgery ) 03/07/2024 2:45 PM CDT Office Visit [facility] [address] [facility] [address] [place] [address] Lalito Perdue DO Follow Up (Pain due to total left knee replacement) 03/07/2024 Travel 02/20/2024 3:00 PM CDT Office Visit [facility] [address] [address] Lalito Perdue DO Knee Pain/problem (Left Knee Pain S/P Total Knee Arthroplasty, DOS: 2003) 02/20/2024 Travel 02/13/2024 1:45 PM CDT Office Visit [facility] [address] [place] [address] Rex Fink DPM Consult (Left foot pain) 02/13/2024 Travel from [...] Sex Assigned at Female 08/31/2020 9:33 AM MARINE STEWARD Gender Identity Female 08/31/2020 9:33 AM MARINE STEWARD Sexual Orientation Straight 08/31/2020 9: 33 AM MARINE STEWARD Obstetrics History Para Term AB IAB SAB [...] 165.1 cm (5' 5) 06/07/2023 2:05 PM MARINE STEWARD Body Mass Index 26.99 06/07/2023 2:05 PM MARINE STEWARD Plan of Treatment Upcoming Encounters Date Type Department Care Team (Late st Contact Info) Description 05/29/2024 3:30 PM MARINE STEWARD Office Visit [facility] [address] [place] [address] Rex Fink DPM [address] [place] [address] 06/27/2024 2:30 PM MARINE STEWARD Office Visit [facility] [address] [place] [address] Francesco Huffman MD [address] [place] [address] Health Maintenance Due Date Last Done Comments [...] history exists Medical Devices Implanted Type Area International Relations Teacher Device Identifier Shelf Expiration Date Model / Serial / Lot [id number] 1-4mm 30cc Medtronic Chips Canclls Freeze Dried Implanted:Qty: 1 on 12/06/2016 by Gurinder Mc MD at [facility] Explanted:at [facility] (Quantity not on file) Spine Medtronic Spine/Ortho 08/24/2021 [id number]# / [id number] / Spacer Lmbr [id number] [place] Convex Stra Plif - [id number] Implanted:Qty: 1 on 12/06/2016 by Gurinder Mc MD at [facility] Spine [employer] 07/26/2026 [id number] # / / [id number] Matrix 3cc [place] Dbf Putty Dbm Implanted:Qty: 1 on 12/06/2016 by Gurinder Mc MD at [facility] Explanted:at [facility] (Quantity not on file) Spine Medtronic Spine/Ortho 09/08/2018 [id number]# / [id number] / Screw Lmbr Post 5.5x40mm Vitality Va - [id number] Implanted:Qty: 1 on 12/06/2016 by Gurinder Mc MD at [facility] Spine [employer] Spine 07.05775. 032# / / Screw Lmbr Post 5.5x45mm Vitality Va - [id number] Implanted:Qty: 2 on 12/06/2016 by Gurinder Mc MD at [facility] Spine [employer] Spine [id number]. 033# / / Set Screw Lmbr 5.5-6mm Vitality Shear Off - [id number] Implanted:Qty: 4 on 12/06/2016 by Gurinder Mc MD at [facility] Spine [employer] Spine 07.22598. 001# / / Avni Lmbr 40x5.5mm Vitality Cvd Titnm - [id number] Implanted:Qty: 2 on 12/06/2016 by Gurinder Mc MD at [facility] Spine [employer] Spine 07.58443. 005# / / Spacer Lmbr [id number] [place] Convex Stra Plif - [id number] Implanted:Qty: 1 on 12/06/2016 by Gurinder Mc MD at [facility] Spine [employer] [id number] # / / Screw Lmbr Post 6.5x40mm Vitality Va - [id number] Implanted:Qty: 1 on 12/06/2016 by Gurinder Mc MD at [facility] Spine [employer] Spine 07.41896. 074# / / .[id number] Double Ended K-Wire Implanted:Qty: 2 on 12/03/2018 by Rex Fink DPM at [facility] Right: Foot N/A / / Interstim Basic Evaluation Lead Implanted:Qty: 1 on 09/28/2022 by Michelle Colmenares DO at [facility] 01/26/2024 [id number] / / [id number] Interstim Basic Evaluation Kit Implanted:Qty: 1 on 09/28/2022 by Michelle Colmenares, DO at [facility] Sacrum Medtronic 08/27/2023 [id number] / / [id number] Interstim X Surescan Mri Lead And Smart Director Loss Prevention - [id number] Implanted:Qty: 1 on 10/18/2022 by Michelle Colmenares, DO at [facility] Right: Buttock Medtronic Pain Therapy 02/07/2024 [id number] / [id number] / Lead Kit 4.32mm Spacing 28cm Length Interstim - [id number] Implanted:Qty: 1 on 10/18/2022 by Michelle Colmenares DO at [facility] Right: Buttock Medtronic Pain Therapy 01/17/2024 [id number] / / [id number] Envlp Neuro Tyrx Absorb Antibacterial - [id number] Implanted:Qty: 1 on 10/18/2022 by Michelle Colmenares, DO at [facility] Right: Buttock Medtronic 03/20/2023 [id number] / / [id number] Spacer Lmbr [id number] [place] Convex Stra Tlif - [id number] Implanted:Qty: 1 on 05/03/2023 by Gurinder Mc MD at [facility] N/A: Spine [employer] 09/13/2026 [id number] / / [id number] Avni Lmbr 95x5.5mm Vitality Cvd Titnm - [id number] Implanted:Qty: 1 on 05/03/2023 by Gurinder Mc MD at [facility] N/A: Spine [employer] Spine [id number] / / Avni Lmbr 90x5.5mm Vitality Cvd Titnm - [id number] Implanted:Qty: 1 on 05/03/2023 by Gurinder Mc MD at [facility] N/A: Spine [employer] Spine [id number] [id number] / / Set Screw Lmbr 5.5-6mm Vitality Torque - [id number] Implanted:Qty: 8 on 05/03/2023 by Gurinder Mc MD at [facility] N/A: Spine [employer] Spine 07.28920. 001 / / Screw Spinal 4.5x45mm Poly Tl Implanted:Qty: 1 on 05/03/2023 by Gurinder Mc MD at [facility] N/A: Spine [id number] / / Description:SCREW SPINAL 4.5 X45MM POLY TL Screw Spinal 5.5x45mm Poly Tl Implanted:Qty: 3 on 05/03/2023 by Gurinder Mc MD at [facility] N/A: Spine [id number] / / Description:SCREW SPINAL 5.5 X45MM POLY TL Bone 1-4mm 60cc Medtronic Fine Canclls Freeze Dried - [id number] Implanted:Qty: 1 on 05/03/2023 by Gurinder Mc MD at [facility] N/A: Spine Medtronic Spine/Ortho 09/21/2026 [id number] / [id number] / Bone Matrix 6cc [place]t Dbf Putty Dbm - [id number] Implanted:Qty: 1 on 05/03/2023 by Gurinder Mc MD at [facility] N/A: Spine Medtronic Spine/Ortho 04/11/2025 [id number] / [id number] / Procedures Procedure Name Priority Date/Time Associated Diagnosis Comments ECHO TTE COMPLETE WO CONTRAST W BUBBLE Routine 05/02/2024 3:00 PM MARINE STEWARD New onset a-fib (HC) Recent cerebrovascular accident (CVA) XR FOOT 3 VIEWS LEFT Routine 04/24/2024 9:53 AM CDT S/P foot surgery, left ECHO TTE COMPLETE WO CONTRAST Routine 04/22/2024 1:07 PM CDT CHF (congestive heart failure) (HC) SCAN-RADIOLOGY REPORT 04/19/2024 12:00 AM CDT XR FOOT 3 VIEWS LEFT Routine 04/17/2024 3:27 PM CDT S/P foot surgery, left SCAN-RADIOLOGY REPORT 04/15/2024 12:00 AM CDT SCAN-OPERATIVE/PROCED URE REPORT 04/15/2024 12:00 AM CDT XR FOOT [...] Results * ECHO TTE COMPLETE WO CONTRAST W BUBBLE (05/02/2024 3:00 PM MARINE STEWARD) Only the most recent of2 resultswithin the time period is included. AORTIC VALVE MEAN PG 14 mmHg EJECTION FRACTION 75 % PEAK TR VELOCITY 2.6 m/s LVEDD 4.5 cm EJECTION FRACTION 70 - 75% Anatomical Region Laterality Modality Ultrasound 05/02/2024 2:11 PM MARINE STEWARD Narrative 05/02/2024 4:14 PM MARINE STEWARD ECHOCARDIOGRAM MARYAM CRISOSTOMO ? Accession#: ?? [id number] : ?1945 78 years Study Date: ?? 05/02/2024 2:11:05 PM Gender: F ?BP: ? 120/82 mmHg Height: 163.00 cm ?BSA: ?1.81 m? ? ? Weight: 75.00 kg ? Tech: ? MHR ? Referring MD: IMANI ESCOBAR Site: ? [facility] Reading Location: [facility] Patient Location: Procedure: 2D, 2D w/ Bubbles, Color Doppler and Spectral Doppler. Indication for study: new onset atrial fibrillation, recent CVA Cardiac Rhythm: Atrial fibrillation.Study quality: Fair. Final Impressions: 1. Normal LV size, normal wall thickness, normal global systolic function with an estimated EF of 70 - 75%. 2. Right ventricular cavity size is normal, global systolic RV function is normal. 3. Mild to moderate aortic stenosis. 4. Mild to moderate mitral stenosis. Mean gradient of 6.0 mmHg at a heart rate of 116 BPM. Comparison Compared to prior exam of 04/22/2024, there has been no significant change. Chamber Sizes and Function Normal left ventricular size, normal wall thickness, normal global systolic function with an estimated EF of 70 - 75%. No resting regional wall motion abnormality visualized. Left atrial size is mildly enlarged. Right ventricular cavity size is normal, global systolic RV function is normal. RV wall thickness is normal. The right atrium is mildly enlarged. Right atrial volume index is 20 ml/m? ? ?. Right atrial area is 14 cm? ? ?. The pulmonary artery is of normal size and origin. The sinus of Valsalva is normal sized. The ascending aorta is normal sized. Valves, RV Pressures and Diastolic Function The aortic valve is not well visualized and sclerotic, mild to moderate stenosis and no regurgitation. The mitral valve is sclerotic, trace mitral regurgitation. Moderate mitral annular calcification is present. A mildly increased gradient of 6.0 mmHg at a heart rate of 116 is calculated across the mitral valve using continuous Doppler examination. Indeterminate pattern of LV diastolic filling. The tricuspid valve is normal in structure. Tricuspid regurgitation is mild regurgitation. The tricuspid regurgitant velocity is 2.6 m/s, the estimated right ventricular systolic pressure is 27 mmHg plus right atrial pressure. There is normal estimated pulmonary pressure by tricuspid regurgitation velocity and right atrial pressure. The pulmonic valve is not well visualized. Trace pulmonary regurgitation. Masses, Effusion, Shunts There is no pericardial effusion. The inferior vena cava is dilated, respiratory size variation less than 50%. Interatrial septum is not well visualized. MEASUREMENTS AND CALCULATIONS 2-D Measurements and LV Function: LVID (d) ?4.5 cm LV FS% (2D) ?? 37 % LVID (s) ?2.8 cm LVOT diameter 1.8 cm IVS (d) ? 1.0 cm HR ?117 bpm LVPW (d) ?1.2 cm LA Vol index ??39 ml/m2 Ao Sinus ?2.6 cm RA Vol index ??20 ml/m2 Ao ST junct 2.1 cm RA area ? 14 cm? ? ? Asc Ao ?3.0 cm RV Max 4C (d) 2.2 cm LA ?3.8 cm Aortic Valve: Vmax ? 2.6 m/s ??NGUYỄN (V) ?? 1.12 cm? ? ? VTI ?0.41 m ?? NGUYỄN (I) ?? 1.33 cm? ? ? LVOT V max 1.2 m/s ??Max PG ?27 mmHg LVOT VTI ?? 0.22 m ?? Mean PG ?? 14 mmHg SV ? 54 ml ?Dim Index 0.53 SV index ?? 30 ml/m? ? ? CO ?6.4 l/min ?CI ?3.5 l/min/m? ? ? Mitral Valve: MV Mean G 6 mmHg MV VTI ?0.38 m Tricuspid Valve and estimated PA pressures: TR Vmax 2.6 m/s TAPSE 1.7 cm TR maxG 27 mmHg . This study was interpreted by an [facility] accredited facility. CC: HIM (med records) [facility], Med/Surg - IP [facility]. ??Final ?? Procedure Note Melvin Tate MD - 05/02/2024 ECHOCARDIOGRAM MARYAM CRISOSTOMO : 1945 78 years Study Date: 05/02/2024 2:11:05 PM Gender: F BP: 120/82 mmHg Height: 163.00 cm BSA: 1.81 m? ? ? Weight: 75.00 kg Tech: Jacey Referring MD: IMANI ESCOBAR Site: [facility] Reading Location: [facility] Patient Location: Procedure: 2D, 2D w/ Bubbles, Color Doppler and Spectral Doppler. Indication for study: new onset atrial fibrillation, recent CVA Cardiac Rhythm: Atrial fibrillation.Study quality: Fair. Final Impressions: 1. Normal LV size, normal wall thickness, normal global systolic functionwith an estimated EF of 70 - 75%. 2. Right ventricular cavity size is normal, global systolic RV functionis normal. 3. Mild to moderate aortic stenosis. 4. Mild to moderate mitral stenosis. Mean gradient of 6.0 mmHg at a heartrate of 116 BPM. Comparison Compared to prior exam of 04/22/2024, there has been no significantchange. Chamber Sizes and Function Normal left ventricular size, normal wall thickness, normal globalsystolic function with an estimated EF of 70 - 75%. No resting regionalwall motion abnormality visualized. Left atrial size is mildly enlarged.Right ventricular cavity size is normal, global systolic RV function isnormal. RV wall thickness is normal. The right atrium is mildly enlarged.Right atrial volume index is 20 ml/m? ? ?. Right atrial area is 14 cm? ? ?. Thepulmonary artery is of normal size and origin. The sinus of Valsalva isnormal sized. The ascending aorta is normal sized. Valves, RV Pressures and Diastolic Function The aortic valve is not well visualized and sclerotic, mild to moderatestenosis and no regurgitation. The mitral valve is sclerotic, trace mitralregurgitation. Moderate mitral annular calcification is present. A mildlyincreased gradient of 6.0 mmHg at a heart rate of 116 is calculated acrossthe mitral valve using continuous Doppler examination. Indeterminate pattern of LV diastolic filling. The tricuspid valve isnormal in structure. Tricuspid regurgitation is mild regurgitation. Thetricuspid regurgitant velocity is 2.6 m/s, the estimated right ventricularsystolic pressure is 27 mmHg plus right atrial pressure. There is normalestimated pulmonary pressure by tricuspid regurgitation velocity and rightatrial pressure. The pulmonic valve is not well visualized. Tracepulmonary regurgitation. Masses, Effusion, Shunts There is no pericardial effusion. The inferior vena cava is dilated,respiratory size variation less than 50%. Interatrial septum is not wellvisualized. MEASUREMENTS AND CALCULATIONS 2-D Measurements and LV Function: LVID (d) 4.5 cm LV FS% (2D) 37 % LVID (s) 2.8 cm LVOT diameter 1.8 cm IVS (d) 1.0 cm HR 117 bpm LVPW (d) 1.2 cm LA Vol index 39 ml/m2 Ao Sinus 2.6 cm RA Vol index 20 ml/m2 Ao ST junct 2.1 cm RA area 14 cm? ? ? Asc Ao 3.0 cm RV Max 4C (d) 2.2 cm LA 3.8 cm Aortic Valve: Vmax 2.6 m/s NGUYỄN (V) 1.12 cm? ? ? VTI 0.41 m NGUYỄN (I) 1.33 cm? ? ? LVOT V max 1.2 m/s Max PG 27 mmHg LVOT VTI 0.22 m Mean PG 14 mmHg SV 54 ml Dim Index 0.53 SV index 30 ml/m? ? ? CO 6.4 l/min CI 3.5 l/min/m? ? ? Mitral Valve: MV Mean G 6 mmHg MV VTI 0.38 m Tricuspid Valve and estimated PA pressures: TR Vmax 2.6 m/s TAPSE 1.7 cm TR maxG 27 mmHg . This study was interpreted by an [facility] accredited facility. CC: HIM (med records) [facility], Med/Surg - IP [facility]. Final Imani Escobar PA ECHO ORD * XR FOOT 3 VIEWS LEFT (04/24/2024 [...] AM Misael Richardson DPM GENERAL IMAGING * SCAN-RADIOLOGY REPORT (04/19/2024 12:00 AM CDT) [...] * SEDIMENTATION RATE (02/20/2024 3:44 PM CDT) SEDIMENTATION RATE 8 <30 mm/hr 2023 10:41 PM CDT [facility] Blood BLOOD SPECIMEN / Unknown Venipuncture / Unknown 02/20/2024 3:44 PM CDT 02/20/2024 3:44 PM CDT Lalito Perdue DO HEMATOLOGY [facility] [address] [place] [address], * C-REACTIVE PROTEIN (02/20/2024 3:44 PM CDT) [facility] C-REACTIVE PROTEIN <0.3 <0.5 mg/dL 02/20/2024 11:05 PM CDT [facility] Blood BLOOD SPECIMEN / Unknown Venipuncture / Unknown 02/20/2024 3:44 PM CDT 02/20/2024 3:44 PM CDT Lalito Perdue DO CHEMISTRY [facility] [address] [place] [address], [place] * D-DIMER,QUANTITATIVE (02/20/2024 3:44 PM CDT) [facility] D-DIMER,QUANTI TATIVE 0.54 See comment FEU mcg/mL 02/21/2024 1:32 AM CDT [facility] Blood BLOOD SPECIMEN / Unknown Venipuncture [...] Lalito Perdue DO HEMATOLOGY Performing Organization Address City/[facility]/ZIP Co de Phone Number [facility] [address] [place] [address], [place] * Patient Source ANTI HCV (12/08/2016 1:07 AM CDT) [facility] HEPATITIS C ANTIBODY Non-Reacti ve Non-Reacti ve 12/08/2016 2:31 AM CDT [facility] Blood BLOOD SPECIMEN / Unknown Venipuncture / Unknown 12/08/2016 1:07 AM CDT 12/08/2016 1:28 AM CDT Narrative [facility] - 12/08/2016 2:31 AM CDT Antibodies to HCV not detected; does not exclude the possibility of exposure to HCV. Meghann Humphreys MD SEND OUTS [facility] [address] [place] [address], from Last 3 Months or Most Recently Relevant to Health Maintenance Advance Directives Documents on File Type Date Recorded Patient Engineering Leader Expl anation Healthcare Directive 12/31/2015 7:52 AM [...] Comments Code Status Discussion: Discussed Care Teams Outside Sales Representative Relationship Specialty Start Date End Date Lina Meléndez MD [address] [place] [address] PCP - General Internal Medicine 11/01/21
--- OUTSIDE RECORDS SUMMARY | 2024-05-07 04:48 | XMS_ITS | Referral Summary ---
Author Organization [facility] Address [address] [place] [address] Care Team Providers Care Fish Tender Name Role Phone Lina Meléndez MD Primary Care Provider [phone] PonderaRhoda I Unavailable Allergies Active Allergy Reactions Criticality [...] Active fluticasone (FLONASE) 50 MCG/ACT nasal spray [place] 2 sprays in nostril daily Active valACYclovir [...] by Conversion Osteoarthritis Overview (12/25/2020): Created by [email or web address] Annotation: Dec 29 2006 3:46PM - Jojo Faustin: CHRISTIANA Replacement Utility updated for latest IMO load Lower Back Pain Overview (12/25/2020): Created by [email or web address] Annotation: Dec 29 2006 3:46PM - Jojo [...] AM CDT Legal Sex Female 5:06 AM PARTS COUNTER SALESPERSON Gender Identity Female 02/24/2020 11:40 AM CDT Sexual Orientation Not on file Last Filed Vital Signs Vital Sign Reading Time Taken Comments Blood Pressure 153/88 08/04/2023 11:00 AM PARTS COUNTER SALESPERSON Pulse 79 08/04/2023 11:00 AM PARTS COUNTER SALESPERSON Temperature 36.1 ??C (97 ??F) 08/04/2023 11:00 AM PARTS COUNTER SALESPERSON Respiratory Rate 18 08/04/2023 11:00 AM PARTS COUNTER SALESPERSON Oxygen Saturation 100% 08/04/2023 11:00 AM PARTS COUNTER SALESPERSON Inhaled Oxygen Concentration - - Weight 70.9 kg (156 lb 4.8 oz) 08/04/2023 6:02 A M PARTS COUNTER SALESPERSON Height 165.1 cm (5' 5) 07/26/2023 1:00 PM PARTS COUNTER SALESPERSON Body Mass Index 26.01 07/26/2023 1:00 PM PARTS COUNTER SALESPERSON Plan of Treatment Not on file Procedures Procedure Name Priority Date/Time Associated Diagnosis Comments COLONOSCOPY Routine 08/04/2023 7:25 AM PARTS COUNTER SALESPERSON LIPID PROFILE Routine 12/18/2019 HEMOGLOBIN A1C Routine 12/18/2019 from Last 3 Months or Most Recently Relevant to Health Maintenance Results * COLONOSCOPY (08/04/2023 7:25 AM PARTS COUNTER SALESPERSON) Pathologist [facility] COLONOSCOPY [facility] [place] [facility] Patient Name: Maryam Cortez ?Procedure [...] ?Olympus, Pediatric Colonoscope, Model # PCF-H190DL, ?Censitrac #[id number] was introduced through the ?anus with the [...] criteria for high risk CPT copyright 2021 [employer]. All rights reserved. The codes documented in this report are preliminary and upon digital account executive review may be revised to meet current compliance requirements. EVER ZEE MD 08/04/2023 8:47:30 AM I was physically present for the entire viewing portion of the exam. EVER ZEE MD Number of Addenda: 0 Note Initiated On: 08/04/2023 7:25 AM MRN: ?[id number] Procedure Date: ? 08/04/2023 7:25:15 AM Total Procedure Duration: 0 hours 3 minutes 40 seconds Estimated Blood Loss: ? Scope In: 7:47:47 AM Scope Out: 7:51:27 AM RADIOLOGY RESULTS 08/04/2023 7:25 AM PARTS COUNTER SALESPERSON Ever Zee MD PROCEDURES Final Res ult RADIOLOGY RESULTS * Lipid Profile (12/18/2019) Cholesterol 154 90 - 200 mg/dL [facility] Triglycerides 53 40 - 197 mg/dL [facility] HDL Cholesterol 106 >=50 mg/dL [facility] LDL Cholesterol Calculated 37 <100 mg/dL [facility] Blood specimen (specimen) 12/18/2019 Narrative [facility] - 12/18/2019 LAB RESULTS [place] Patient Reported LAB - BLOOD ORDERABLES Final Re sult Performing Organization Address City/[facility]/ZIP Co de Phone Number [facility] [address] [place] [address], [facility] [phone] * (ABNORMAL) Hemoglobin A1c (12/18/2019) Hemoglobin A1C 7.3(A) <=6.9 % [facility] Blood specimen (specimen) 12/18/2019 Narrative [facility] - 12/18/2019 LAB RESULTS [place] us Provider Outside LAB - BLOOD ORDERABLES Final Re sult Performing Organization Address City/[facility]/ZIP Co de Phone Number [facility] [address] [place] [address], [facility] [phone] from Last 3 Months or Most Recently Relevant to Health Maintenance Insurance [facility] MEDICARE [facility] MEDICARE Care Teams Fish Tender Relationship Specialty Start Date End Date Lina Meléndez MD [facility] & [address] [address] PCP - General Internal Medicine 12/26/14 Rhoda Sarabia I [address] [place] [id number] Cushion Padder Dietitian, Registered 02/20/20
--- OUTSIDE RECORDS SUMMARY | 2024-05-07 04:48 | XMS_ITS | Clinical Summary ---
Author Organization [facility] Address [address] [place] [address] Care Team Providers Care Firmware Architect Name Role Phone Lina Meléndez MD Primary Care Provider [phone] Source Comments You are receiving this document as you are listed as the primary care provider,follow-up provider, or the patient has been referred to you for consultation.This is in compliance with the Medicare and[facility] EHR Incentive Program,which states Providers who transition their patient to another setting of careor provider of care or refers their patient to another provider of care shouldprovide summary care record for each transition of care or referral. [employer] Allergies Active Allergy Reactions Criticality Noted Date [...] (07/10/2019): Added automatically from request for surgery [id number] TC (obstructive sleep apnea) 11/05/2018 Arthritis of [...] Comments Blood Pressure 147/63 07/17/2019 2:34 PM DIRECTOR OF SLEEP Pulse 75 07/17/2019 2:34 PM DIRECTOR OF SLEEP Temperature 36.7 ??C (98.1 ??F) 07/17/2019 2:34 PM CS T Respiratory Rate 18 07/17/2019 2:34 PM DIRECTOR OF SLEEP Oxygen Saturation 99% 07/17/2019 2:34 PM DIRECTOR OF SLEEP Inhaled Oxygen Concentration - - Weight 75 kg (165 lb 6.4 oz) 07/16/2019 10:19 AM DIRECTOR OF SLEEP Height 165.1 cm (5' 5) 07/16/2019 10:19 AM DIRECTOR OF SLEEP Body Mass Index 27.52 07/16/2019 10:19 AM DIRECTOR OF SLEEP Plan of Treatment Health Maintenance Due Date [...] on patient's age to complete this topic Infant RSV Aged Out No longer eligi ble based on patient's age to complete this topic MCV4 Aged Out No longer eligi ble based on patient's age to complete this topic Medical Devices Implanted Type Area Shop Service Technician Device Identifier Shelf Expiration Date Model / Serial / Lot Chip Anita Brunner 30cc - [id number] Implanted:Qty : 1 on 07/16/2019 by Edelmira Rodriguez MD at [facility] DEVICE Left: SHOULDER Medtronic - [employer] 08/14/2023 [id number] / / [id number] Scr Star Lk Sftp 3.5x48 - [id number] Implanted:Qty : 1 on 07/16/2019 by Edelmira Rodriguez MD at [facility] DEVICE Left: HUMERUS MIDSHAFT DePuy Synthes - Trauma 212.120 / / Scr Cj Sftp Ss 3.5x32 F-Thrd - [id number] Implanted:Qty : 1 on 07/16/2019 by Edelmira Rodriguez MD at [facility] DEVICE Left: HUMERUS MIDSHAFT [employer]ynthes - Trauma 204.832 / / [id number] Plt Prox Hum 3.5x90 6h/3h - [id number] Implanted:Qty : 1 on 07/16/2019 by Edelmira Rodriguez MD at [facility] DEVICE Left: SHOULDER [employer]s - Trauma 241.901 / / [id number] Scr Cj Sftp Ss 3.5x26 F-Thrd - [id number] Implanted:Qty : 1 on 07/16/2019 by Edelmira Rodriguez MD at [facility] DEVICE Left: HUMERUS MIDSHAFT [employer]ynthes - Trauma 204.826 / / Description:3.5mm 26mm Scr Cj Sftp Ss 3.5x28 F-Thrd - [id number] Implanted:Qty : 1 on 07/16/2019 by Edelmira Rodriguez MD at [facility] DEVICE Left: HUMERUS MIDSHAFT [employer]ynthes - Trauma 204.828 / / Scr Star Lk Sftp 3.5x34 - [id number] Implanted:Qty : 1 on 07/16/2019 by Edelmira Rodriguez MD at [facility] DEVICE Left: HUMERUS MIDSHAFT [employer] Synthes - Trauma 212.113 / / Scr Star Lk Sftp 3.5x36 - [id number] Implanted:Qty : 2 on 07/16/2019 by Edelmira Rodriguez MD at [facility] DEVICE Left: HUMERUS MIDSHAFT [employer]ynthes - Trauma 212.115 / / Scr Star Lk Sftp 3.5x40 - [id number] Implanted:Qty : 2 on 07/16/2019 by Edelmira Rodriguez MD at [facility] DEVICE Left: HUMERUS MIDSHAFT [employer]ynthes - Trauma 212.117 / / Scr Star Lk Sftp 3.5x45 - [id number] Implanted:Qty : 1 on 07/16/2019 by Edelmira Rodriguez MD at [facility] DEVICE Left: HUMERUS MIDSHAFT [employer] Synthes - Trauma 212.119 / / Scr Star Lk Sftp 3.5x46 - [id number] Implanted:Qty : 1 on 07/16/2019 by Edelmira Rodriguez MD at [facility] DEVICE Left: HUMERUS MIDSHAFT [employer]uy Synthes - Trauma 212.136 / / Procedures Procedure Name Priority Date/Time Associated Diagnosis Comments BASIC METABOLIC PANEL Routine 07/17/2019 7:49 AM DIRECTOR OF SLEEP HGB A1C Routine 07/17/2019 7:49 AM DIRECTOR OF SLEEP from Last 3 Months or Most Recently Relevant to Health Maintenance Results * (ABNORMAL) Basic Metabolic Panel (IN AM) (07/17/2019 7:49 AM DIRECTOR OF SLEEP) Sodium 131(L) 136 - 145 mmol/L 07/17/2019 8:42 AM DIRECTOR OF SLEEP [facility] Potassium 3.3(L) 3.5 - 5.1 mmol/L 07/17/2019 8:42 AM DIRECTOR OF SLEEP [facility] Chloride 98 98 - 109 mmol/L 07/17/2019 8:42 AM DIRECTOR OF SLEEP [facility] CO2 25 20 - 29 mmol/L 07/17/2019 8:42 AM DIRECTOR OF SLEEP [facility] Anion Gap 8 7 - 16 mmol/L 07/17/2019 8:42 AM DIRECTOR OF SLEEP [facility] Calcium 8.4 8.4 - 10.4 mg/dL 07/17/2019 8:42 AM DIRECTOR OF SLEEP [facility] BUN 16 7 - 26 mg/dL 07/17/2019 8:42 AM DIRECTOR OF SLEEP [facility] Creatinine 0.65 0.55 - 1.02 mg/dL 07/17/2019 8:42 AM DIRECTOR OF SLEEP [facility] GFR, Estimated >60 >60 mL/min/1.7 3m2 07/17/2019 8:42 AM DIRECTOR OF SLEEP [facility] GFR, Est If >60 >60 mL/min/1.7 3m2 07/17/2019 8:42 AM DIRECTOR OF SLEEP [facility] Glucose 187(H) 70 - 100 mg/dL 07/17/2019 8:42 AM DIRECTOR OF SLEEP [facility] Comment:The given reference range is for the fasting state. Non-fasting reference range for glucose is 70 - 180 mg/dL. Blood Venipuncture / Unknown 07/17/2019 7:49 AM DIRECTOR OF SLEEP 07/17/2019 7:56 AM DIRECTOR OF SLEEP Larisa Gaines MD LAB_1 Performing Organization Address [facility] de Phone Number [facility] [address] * (ABNORMAL) Hemoglobin A1C Glycosylated (IN AM) (07/17/2019 7:49 AM DIRECTOR OF SLEEP) Hemoglobin A1C 6.7(H) <=5.6 % 07/17/2019 1:39 PM DIRECTOR OF SLEEP [facility] Blood Venipuncture / Unknown 07/17/2019 7:49 AM DIRECTOR OF SLEEP 07/17/2019 7:56 AM DIRECTOR OF SLEEP Narrative [facility] - 07/17/2019 1:39 PM DIRECTOR OF SLEEP For patients not previously diagnosed with diabetes: 5.7-6.4%: Increased risk for diabetes 6.5% and greater: Diagnostic for diabetes For patients diagnosed with diabetes: <8.0%: Goal of therapy for ages 18-75 Clinicians may recommend a higher or lower goal for specific individuals. Larisa Gaines MD LAB_1 Performing Organization Address [facility] Phone Number [facility] [address] from Last 3 Months or Most Recently Relevant to Health Maintenance Advance Directives * Full Code (Latest Code Status on File) Date Activated Date Inactivated Comments 07/16/2019 4:18 PM 07/17/2019 5:47 PM Care Teams Firmware Architect Relationship Specialty Start Date End Date Lina Meléndez MD [address] [address] PCP - General Internal Medicine 12/20/18
--- OUTSIDE RECORDS SUMMARY | 2024-05-07 04:48 | XMS_ITS | Clinical Summary ---
Author Organization [facility] Address [address] [place] [address] Care Team Providers Care Stabilizing Machine Operator Name Role Phone Lina Meléndez MD Primary Care Provider TunicaRhoda I Unavailable Allergies Active Allergy Reactions Criticality [...] Active fluticasone (FLONASE) 50 MCG/ACT nasal spray [place] 2 sprays in nostril daily Active valACYclovir [...] by Conversion Osteoarthritis Overview (12/25/2020): Created by [employer] Annotation: Dec 29 2006 3:46PM - Jojo Faustin: CHRISTIANA Replacement Utility updated for latest IMO load Lower Back Pain Overview (12/25/2020): Created by [employer] Annotation: Dec 29 2006 3:46PM - Jojo [...] AM CDT Legal Sex Female 5:06 AM FINISHING AREA OPERATOR Gender Identity Female 02/24/2020 11:40 AM CDT Sexual Orientation Not on file Last Filed Vital Signs Vital Sign Reading Time Taken Comments Blood Pressure 153/88 08/04/2023 11:00 AM FINISHING AREA OPERATOR Pulse 79 08/04/2023 11:00 AM FINISHING AREA OPERATOR Temperature 36.1 ??C (97 ??F) 08/04/2023 11:00 AM FINISHING AREA OPERATOR Respiratory Rate 18 08/04/2023 11:00 AM FINISHING AREA OPERATOR Oxygen Saturation 100% 08/04/2023 11:00 AM FINISHING AREA OPERATOR Inhaled Oxygen Concentration - - Weight 70.9 kg (156 lb 4.8 oz) 08/04/2023 6:02 A M FINISHING AREA OPERATOR Height 165.1 cm (5' 5) 07/26/2023 1:00 PM FINISHING AREA OPERATOR Body Mass Index 26.01 07/26/2023 1:00 PM FINISHING AREA OPERATOR Plan of Treatment Health Maintenance Due [...] Diagnosis Comments COLONOSCOPY Routine 08/04/2023 7:25 AM FINISHING AREA OPERATOR LIPID PROFILE Routine 12/18/2019 HEMOGLOBIN A1C Routine 12/18/2019 from Last 3 Months or Most Recently Relevant to Health Maintenance Results * COLONOSCOPY (08/04/2023 7:25 AM FINISHING AREA OPERATOR) COLONOSCOPY [facility] Patient Name: Maryam Cortez ?Procedure [...] ?Olympus, Pediatric Colonoscope, Model # PCF-H190DL, ?Censitrac #[id number] was introduced through the ?anus with the [...] criteria for high risk CPT copyright 2021 [employer]. All rights reserved. The codes documented in this report are preliminary and upon adjunct phlebotomy instructor review may be revised to meet current compliance requirements. EVER ZEE MD 08/04/2023 8:47:30 AM I was physically present for the entire viewing portion of the exam. EVER ZEE MD Number of Addenda: 0 Note Initiated On: 08/04/2023 7:25 AM MRN: ?[id number] Procedure Date: ? 08/04/2023 7:25:15 AM Total Procedure Duration: 0 hours 3 minutes 40 seconds Estimated Blood Loss: ? Scope In: 7:47:47 AM Scope Out: 7:51:27 AM RADIOLOGY RESULTS 08/04/2023 7:25 AM FINISHING AREA OPERATOR us Ever Zee MD PROCEDURES Final Res ult RADIOLOGY RESULTS * Lipid Profile (12/18/2019) Cholesterol 154 90 - 200 mg/dL [facility] Triglycerides 53 40 - 197 mg/dL [facility] HDL Cholesterol 106 >=50 mg/dL [facility] LDL Cholesterol Calculated 37 <100 mg/dL [facility] Blood specimen (specimen) 12/18/[address] [facility] - 12/18/2019 LAB RESULTS [place] Patient Reported LAB - BLOOD ORDERABLES Final Re sult Performing Organization Address City/[facility] [address]/ZIP Co de Phone Number [facility] [address] [place] [address], [facility] [phone] * (ABNORMAL) Hemoglobin A1c (12/18/2019) Hemoglobin A1C 7.3(A) <=6.9 % [facility] Blood specimen (specimen) 12/18/[address] [facility] - 12/18/2019 LAB RESULTS [place] us Provider Outside LAB - BLOOD ORDERABLES Final Re sult Performing Organization Address City/[facility] [address]/ZIP Co de Phone Number [facility] [address] [place] [address], [facility] [phone] from Last 3 Months or Most Recently Relevant to Health Maintenance Insurance [facility] MEDICARE [facility] MEDICARE Care Teams Stabilizing Machine Operator Relationship Specialty Start Date End Date Lina Meléndez MD [facility] & [address] [id number] PCP - General Internal Medicine 12/26/14 Rhoda Sarabia I [address] [place] [id number] Bottling Equipment Sales Representative Dietitian, Registered 02/20/20
--- OUTSIDE RECORDS SUMMARY | 2024-05-07 04:49 | XMS_ITS ---
Author Organization [facility] Address [address] [place] [address] Care Team Providers Care Process Worker Name Role Phone Unavailable Unavailable Unavailable Surgery Details Not on file Complications Check Surgery Details section. Procedure Estimated Blood Loss Check Surgery Details section. Procedure Findings Check Surgery Details section. Procedure Specimens Taken Check Surgery Details section.
--- OUTSIDE RECORDS SUMMARY | 2024-05-07 04:49 | XMS_ITS | Encounter Summary ---
Author Organization [facility] Address [address] [place] [address] Care Team Providers Care Microbiology Professor Name Role Phone Unavailable Primary Care Provider Unavailabl e Reason for Visit * Appointment Request (Routine) - Closed Specialty Diagnoses / Procedures Referred By Caroline t Referred To Contact Nephrology and Hypertension Referral ID Status Reason Start Date Expiration Date Visits Re quested Visits Authorized [id number] Closed 01/05/2024 01/04/2025 1 1 Encounter Details Date Type Department Care Team (Latest Contact Info) Description 02/06/2024 3:30 PM CDT External Outreach Division of Nephrology and Hypertension in [place], [place] [address] [place] [address] Joshua Lopez Jr., D.O. [address] [place] [address] Hypertensive Chronic Kidney Disease With Stage 1 [...] How often do you attend chur or gnosticist services? More than 4 times per year 02/12/2022 Do you belong to any clubs o r organizations such as mosque groups, unions, fraternal or [...] medical care, and heating? Somewhat hard 02/12/2022 [facility] [place] of Occupat ional Health - Occupational Stress [...] on file Legal Sex Female 12:47 PM BUS AIDE Gender Identity Not on file Sexual Orientation [...] Provider DR Rome SUBJECTIVE REASON FOR VISIT [place] out [facility] Follow-up regards diabetes [...] Rfl: flash glucose scanning reader (FREESTYLE KYILE[place] [facility] [place]p: , Rfl: flash glucose sensor [...]
--- OUTSIDE RECORDS SUMMARY | 2024-05-07 04:49 | XMS_ITS ---
Author Organization [facility] Address [address] [place] [address] Care Team Providers Care Sound Editor Name Role Phone Unavailable Primary Care Provider Unavailabl e Active Problems * This document contains information received from the source organization and may not represent a complete record from that organization. Problem Noted Date Diagnosed Date Dietary Folate Deficiency Anemia 04/04/2023 Malignant Neoplasm Of Breast Upper Outer Quadrant Female Right 01/26/2022 Cancer Staging:Pathologic stage from 12/21/2021:Stage Unknown(pT1b, pNX, cM0, G2, ER+, PA+, HER2-, Oncotype DX score: 17) - Unsigned [...] Treated Prescribed Fraction Dose Prescribed Total Dose [id number] 02/18/2022 4 5 of 5 520 cGy 2,600 cGy Reference Point Last Treated On Elapsed Days Session Dose Total Dose [id number] 02/18/2022 4 520 cGy 2,600 cGy icru ref 02/16/2022 2 531 cGy 1,593 cGy
--- OUTSIDE RECORDS SUMMARY | 2024-05-07 04:49 | XMS_ITS | Encounter Summary ---
Author Organization [facility] Address [address] [place] [address] Care Team Providers Care Manager Cafe Name Role Phone Unavailable Primary Care Provider Unavailabl e Encounter Details Date Type Department Care Team (Late st Contact Info) Description 03/19/2024 Documentation Division of Nephrology and Hypertension in [place], [place] [address] [place] [phone] Joshua Lopez Jr., D.O. [address] [place] [address] Social History Tobacco Use Types Packs/Day Years [...] How often do you attend chur or jewish services? More than 4 times per year 02/12/2022 Do you belong to any clubs o r organizations such as baptism groups, unions, fraternal or athletic groups, or [...] care, and heating? Somewhat hard 02/12/2022 [facility] [place] of Occupat ional Health - Occupational Stress [...] on file Legal Sex Female 12:47 PM MAINTENANCE CONSTRUCTION HELPER Gender Identity Not on file Sexual Orientation [...]
--- OUTSIDE RECORDS SUMMARY | 2024-05-07 04:49 | XMS_ITS | Referral Summary ---
Author Organization [facility] Address [address] [place] [address] Care Team Providers Care Toilet And Laundry Soap Supervisor Name Role Phone Unavailable Primary Care Provider Unavailabl e Source Comments Patient records contain information from all sites at [facility]. For routine questions regarding patient records, call [phone] during business hours, M-F 8:00 AM - 5:00 PM Central Time. Record requests for emergency care only can be directed to [phone] at any time.[facility] Encounters Date Type Department Care Team Description 03/19/2024 Documentation Division of Nephrology and Hypertension in [place], [place] [address] [place] [address] Joshua Lopez Jr., D.O. 02/06/2024 3:30 PM CDT External Outreach Division of Nephrology and Hypertension in [place], [place] [address] [place] [address] Joshua Lopez Jr. D.O. Hypertensive Chronic Kidney [...] often do you attend chur ch or lutheran services? More than 4 times per year [...] medical care, and heating? 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
[2024-05-07] MEDS: METOPROLOL TARTRATE 25 MG TABLET 12.5 MG PO (05:18)
--- NOTE | 2024-05-07 06:42 | CRLHL7_ITS ---
For Patients: As a result of the Century Cures Act, medical imaging exams and procedure reports are released immediately into your electronic medical record. You may view this report before your referring provider. If you have questions, please contact your health care provider. INDICATION: Cough COMPARISON: May 02, 2024 TECHNIQUE: Single view examination FINDINGS: TUBES AND LINES: None. HEART AND MEDIASTINUM: The heart size is normal. The mediastinal contour appears normal for patient age. LUNGS AND PLEURAL SPACES: Mild vascular congestion without overt edema.The pleural spaces are unremarkable. OSSEOUS STRUCTURES: Degenerative changes, scoliosis and postoperative changes of the spine and visualized left humerus. IMPRESSION: Vascular congestion pattern is similar to the prior study. No overt edema. Dictated by Alejandro Whatley MD @ 05/07/2024 7:00:51 AM (Electronically Signed)
[2024-05-07 06:59] LABS: Basophils Absolute Auto 0.04 K/uL (0.00-0.30); Basophils Percent Auto 0.6 % (0.0-3.0); Eosinophils Absolute Auto 0.12 K/uL (0.00-0.50); Eosinophils Percent Auto 1.9 % (0.0-7.0); Hematocrit 34.9 % (33.0-51.0); Hemoglobin* 11.7 gm/dL (12.0-16.0); Immature Granulocytes Abs Auto 0.01 K/uL (0.00-0.30); Immature Granulocytes Pct Auto 0.2 %; Lymphocytes Percent Auto 15.2 % (20-44); Mean Corpuscular HGB Conc 34 gm/dL (32-36); Mean Corpuscular Hemoglobin 31 pg (26-34); Mean Corpuscular Volume 94 fL (80-100); Monocytes Percent Auto 9.6 % (0.0-11.0); Neutrophils Percent Auto 72.5 % (42.0-72.0); Platelet Count* 362 K/uL (140-440); RDW Coefficient of Variation % 12.3 % (11.5-15.5); Red Blood Count 3.73 m/uL (4.00-5.20); White Blood Count* 6.33 K/uL (4.50-11.00)
[2024-05-07 07:01] LABS: Slide Review Reflex No
[2024-05-07 07:02] LABS: Chloride* 94 mmol/L (96-114); Sodium* 129 mmol/L (135-149)
[2024-05-07 07:03] LABS: D Dimer Quantitative* 1.45 ug/ml (0.00-0.50)
[2024-05-07 07:04] LABS: Creatinine* 0.7 mg/dL (0.5-1.5); Est. Creatinine Clearance* 43.07; Estimated Glomerular Filt Rate 90 ml/min; Magnesium* 2.2 mg/dL (1.5-2.6)
[2024-05-07 07:05] LABS: Anion Gap 10 mEq/L (7-15); Blood Urea Nitrogen* 26 mg/dL (7-30); Calcium* 9.8 mg/dL (8.4-10.6); Carbon Dioxide* 25 mmol/L (20-32); Glucose* 267 mg/dL (60-115)
[2024-05-07 07:18] LABS: NT Pro B Type NatriureticPept* 445 pg/mL; Troponin I* < 0.01 ng/mL (0.01-0.04)
--- NOTE | 2024-05-07 07:22 | CRLHL7_ITS ---
For Patients: As a result of the 21st Century Cures Act, medical imaging exams and procedure reports are released immediately into your electronic medical record. You may view this report before your referring provider. If you have questions, please contact your health care provider. INDICATION: Tachycardia and dyspnea. Previous breast lumpectomy. Surgery regarding spinal fusion and left shoulder. COMPARISON: No prior chest CTs available for comparison TECHNIQUE: : CT examination of the chest was performed with the uneventful intravenous administration of 95 cc of Isovue 370 while thin axial sections were obtained from above the apices of the lungs to the lung bases. The examination was timed as a pulmonary artery angiogram. Please note that all CT scans at this facility use dose modulation, iterative reconstruction, and/or weight-based dosing when appropriate to reduce radiation dose to as low as reasonably achievable. FINDINGS: : HEART and MEDIASTINUM: The heart size is top-normal. There is no mediastinal or hilar adenopathy or mass. There is no pericardial effusion. PULMONARY ARTERIAL CIRCULATION: There is no visible intraluminal filling defect to suggest pulmonary embolus. LUNGS and PLEURAL SPACES: Minimal vascular congestion. No overt edema. Minimal basilar atelectasis. No pleural effusion or pneumothorax. VISUALIZED UPPER ABDOMEN: There is a 2.6 centimeter left adrenal nodule. This is indeterminate though probably benign. Given the history of malignancy, follow-up evaluation is recommended at a clinically appropriate time OSSEOUS STRUCTURES: Wedge compression deformity of a midthoracic vertebral body. This does not appear to be acute though is densely sclerotic. Given the history of breast malignancy, this could possibly be metastatic. Follow-up recommended at a clinically appropriate time. TUBES and LINES: None. IMPRESSION: 1. There is no indication of pulmonary embolus. 2. Mild vascular congestion without overt edema. Minimal basilar atelectasis. No pleural effusion or pneumothorax. 3. Wedge compression deformity of a midthoracic vertebral body. This does not appear to be acute. It is densely sclerotic and could potentially be related to the patient`s underlying breast malignancy. Follow-up evaluation recommended at a clinically appropriate time. 4. Indeterminate 2.6 centimeter left adrenal nodule for which follow-up is recommended at a clinically appropriate time Please note that all CT scans at this facility use dose modulation, iterative reconstruction, and/or weight-based dosing when appropriate to reduce radiation dose to as low as reasonably achievable. Dictated by Alejandro Whatley MD @ 05/07/2024 8:09:43 AM (Electronically Signed)
[2024-05-07] MEDS: INSULIN REGULAR, HUMAN 100 UNIT/ML VIAL 10 UNIT IVP (07:41)
[2024-05-07] MEDS: dilTIAZem HCL 125 MG in 0.9 % SODIUM CHLORIDE 100 ml 100 ML IVPB (09:49)
--- NOTE | 2024-05-07 09:54 | ED.NURSE ---
Pt up to BR w/ walker. Able to ambulate w/ steady gait. Requests mari hugger. Assisted into bed. Placed back on monitor. Mari hugger on per request. Requesting CPAP so she can sleep. RT called.
[2024-05-07] MEDS: ALBUTEROL SULFATE 2.5 MG/3 ML VIAL.NEB NEB (10:08)
[2024-05-07] MEDS: APIXABAN 5 MG TABLET PO (13:45)
[2024-05-07] MEDS: AMOXICILLIN/CLAVULANATE 875 mg/125 mg TABLET PO (13:45)
--- NOTE | 2024-05-07 13:46 | ED.NURSE ---
Report to ROCCO Landin at [place]. [facility] called to arrange EMS transport.
--- NOTE | 2024-05-07 14:14 | ED.NURSE ---
Report to EMS. Pt to transfer w/ dilt continuing to infuse. All belongings remain w/ pt. Pt voided prior to departure.
== END 2024-05-07 14:28 | disposition short-term general hospital (02) ==
PROVIDERS: Family Medicine; Emergency Provider Student in an Organized Health Care Education/Training Program; PCP Internal Medicine
DX: R00.2 Palpitations (principal); R73.9 Hyperglycemia, unspecified
CPT/HCPCS: 36415; 71045; 71275; 80048; 82962; 83735; 83880; 84484; 85025; 85379; 93005; 94640; 94761; 99284; 99285; 99291; A9270; J1815; J3490; J7030; Q9967

== ENCOUNTER 2024-05-07 14:08 | Outpatient (CLI) | payer MEDICARE, SELFPAY | END 2024-05-07 14:09 | disposition home or self-care (01) | LOC: AMB 05-11 18:33 | PROVIDERS: PCP Internal Medicine; Visit Provider Student in an Organized Health Care Education/Training Program | DX: I49.9 Cardiac arrhythmia, unspecified (principal); I48.91 Unspecified atrial fibrillation | CPT/HCPCS: A0425; A0427 ==

== ENCOUNTER 2024-08-02 13:16 | Outpatient (CLI) | payer MEDICARE, SELFPAY | END 2024-08-02 13:17 | disposition home or self-care (01) | LOC: NFLDREF 08-09 02:19 | PROVIDERS: PCP Internal Medicine; Referring Provider Internal Medicine; Visit Provider Internal Medicine Nephrology | DX: N18.1 Chronic kidney disease, stage 1 (principal); E11.22 Type 2 diabetes mellitus with diabetic chronic kidney disease; I12.9 Hypertensive chronic kidney disease with stage 1 through stage 4 chronic kidney disease, or unspecified chronic kidney disease; E87.1 Hypo-osmolality and hyponatremia; R80.9 Proteinuria, unspecified; E83.42 Hypomagnesemia; D63.8 Anemia in other chronic diseases classified elsewhere | CPT/HCPCS: 80061; 80069; 82043; 82570; 82728; 83540; 83550; 83970; 84132; 84450; 84460; 84550 ==

== ENCOUNTER 2024-08-06 14:52 | Outpatient (CLI) | payer MEDICARE, SELFPAY | END 2024-08-06 14:53 | disposition home or self-care (01) | LOC: NFLDREF 08-09 03:39 | PROVIDERS: PCP Internal Medicine; Referring Provider Internal Medicine; Visit Provider Internal Medicine Nephrology | DX: E11.29 Type 2 diabetes mellitus with other diabetic kidney complication (principal); N18.1 Chronic kidney disease, stage 1; E83.42 Hypomagnesemia; D63.8 Anemia in other chronic diseases classified elsewhere; R80.9 Proteinuria, unspecified | CPT/HCPCS: 82043; 82570; 87086 ==

== ENCOUNTER 2024-10-16 14:31 | Outpatient (CLI) | payer MEDICARE, SELFPAY ==
--- NOTE | 2024-10-16 14:40 | CRLHL7_ITS ---
For Patients: As a result of the Century Cures Act, medical imaging exams and procedure reports are released immediately into your electronic medical record. You may view this report before your referring provider. If you have questions, please contact your health care provider. INDICATION: BILATERAL SCREENING MAMMOGRAM, ASYMPTOMATIC 79 Y/O FEMALE COMPARISON: 09/29/23, 08/02/22, 11/02/21 TECHNIQUE: CC and MLO views were obtained. These mammographic images have been obtained using full-field digital technique. These mammographic images were interpreted with the benefit of computer aided detection and tomosynthesis. BREAST COMPOSITION: The breasts are heterogeneously dense, which may obscure small masses. FINDINGS: No suspicious findings. ASSESSMENT: BI-RADS 2 Benign RECOMMENDATION: Annual screening mammogram. A lay language report of this examination will be provided to the patient. Dictated by: David Olson MD @ 10/17/2024 12:12:41 (Electronically Signed)
== END 2024-10-16 14:32 | disposition home or self-care (01) ==
LOC: MAMMO 14:31
PROVIDERS: PCP Internal Medicine; Visit Provider Internal Medicine
DX: Z12.31 Encounter for screening mammogram for malignant neoplasm of breast (principal); R92.333 Mammographic heterogeneous density, bilateral breasts
CPT/HCPCS: 77063; 77067

== ENCOUNTER 2024-10-21 11:45 | Outpatient (CLI) | payer MEDICARE, SELFPAY | END 2024-10-21 11:46 | disposition home or self-care (01) | LOC: NFLDREF 10-22 21:55 | PROVIDERS: PCP Internal Medicine; Referring Provider Internal Medicine; Visit Provider Internal Medicine | DX: R30.0 Dysuria (principal); R35.0 Frequency of micturition | CPT/HCPCS: 87086 ==

== ENCOUNTER 2024-11-19 11:04 | Outpatient (CLI) | payer MEDICARE, SELFPAY ==
--- NOTE | 2024-11-19 12:24 | P.ANES_ITS ---
Anesthesia Charges Start Date/Time Anesthesia Start Date: 11/19/24 Anesthesia Start Time: 12:39 Stop Date/Time Anesthesia Stop Date: 11/19/24 Anesthesia Stop Time: 13:40 Summary Extremes of Age - Over 70 or under 1: MDA Coding CPT Codes CPT Codes: ANES UPR LWR GI NDSC PX - 66874 ([id number]) P3 - PATIENT W/SEVERE SYS DISEASE, QK - DOCK BUILDER 2-4 CNCRNT ANES PROC, QX - SCADA TECHNICIAN SVC W/ MD MED DIRECTION Additional Codes: Summary - Extremes of Age - Over 70 or under 1: MDA ([id number])
--- NOTE | 2024-11-19 12:24 | W.ANESCHARGE ---
Anesthesia Charges Start Date/Time Anesthesia Start Date: 11/19/24 Anesthesia Start Time: 12:39 Stop Date/Time Anesthesia Stop Date: 11/19/24 Anesthesia Stop Time: 13:40 Summary Extremes of Age - Over 70 or under 1: MDA Coding CPT Codes CPT Codes: ANES UPR LWR GI NDSC PX - 88185 ([id number]) P3 - PATIENT W/SEVERE SYS DISEASE, QK - WASH OIL PUMP OPERATOR HELPER 2-4 CNCRNT ANES PROC, QX - IRRIGATION EQUIPMENT REMOVER SVC W/ MD MED DIRECTION Additional Codes: Summary - Extremes of Age - Over 70 or under 1: MDA ([id number])
--- NOTE | 2024-11-19 13:45 | P.ANES_ITS ---
Anesthesia Charges Start Date/Time Anesthesia Start Date: 11/19/24 Anesthesia Start Time: 12:39 Stop Date/Time Anesthesia Stop Date: 11/19/24 Anesthesia Stop Time: 13:40 Summary Extremes of Age - Over 70 or under 1: GRAPPLE OPERATOR Coding CPT Codes CPT Codes: ANES UPR LWR GI NDSC PX - 90305 ([id number]) P3 - PATIENT W/SEVERE SYS DISEASE, QX - GRAPPLE OPERATOR SVC W/ MD MED DIRECTION, QK - PEST CONTROL SUPERVISOR 2-4 CNCRNT ANES PROC Additional Codes: Summary - Extremes of Age - Over 70 or under 1: GRAPPLE OPERATOR ([id number])
--- NOTE | 2024-11-19 13:45 | W.ANESCHARGE ---
Anesthesia Charges Start Date/Time Anesthesia Start Date: 11/19/24 Anesthesia Start Time: 12:39 Stop Date/Time Anesthesia Stop Date: 11/19/24 Anesthesia Stop Time: 13:40 Summary Extremes of Age - Over 70 or under 1: RIB CUTTER Coding CPT Codes CPT Codes: ANES UPR LWR GI NDSC PX - 38912 ([id number]) P3 - PATIENT W/SEVERE SYS DISEASE, QX - RIB CUTTER SVC W/ MD MED DIRECTION, QK - BREAKER UP 2-4 CNCRNT ANES PROC Additional Codes: Summary - Extremes of Age - Over 70 or under 1: RIB CUTTER ([id number])
== END 2024-11-19 11:05 | disposition home or self-care (01) ==
LOC: OP CLINIC 11:05
PROVIDERS: PCP Internal Medicine; Visit Provider Surgery
DX: K92.1 Melena (principal); D12.8 Benign neoplasm of rectum; D12.3 Benign neoplasm of transverse colon; D12.2 Benign neoplasm of ascending colon; D12.5 Benign neoplasm of sigmoid colon; D12.4 Benign neoplasm of descending colon; R13.10 Dysphagia, unspecified; K44.9 Diaphragmatic hernia without obstruction or gangrene; Z86.0101 Personal history of adenomatous and serrated colon polyps
CPT/HCPCS: 00813; 43239; 45380; 45385; 88305; 99100; J2704; J3490

== ENCOUNTER 2025-01-21 14:03 | Outpatient (CLI) | payer MEDICARE, SELFPAY | END 2025-01-21 14:04 | disposition home or self-care (01) | LOC: NFLDREF 15:21 | PROVIDERS: PCP Internal Medicine; Referring Provider Internal Medicine; Visit Provider Internal Medicine Nephrology | DX: I10 Essential (primary) hypertension (principal); E87.1 Hypo-osmolality and hyponatremia; E83.42 Hypomagnesemia; M81.0 Age-related osteoporosis without current pathological fracture; I48.91 Unspecified atrial fibrillation; D63.8 Anemia in other chronic diseases classified elsewhere; E11.29 Type 2 diabetes mellitus with other diabetic kidney complication; R80.9 Proteinuria, unspecified | CPT/HCPCS: 80061; 80069; 82043; 82570; 82607; 82728; 82746; 83540; 83550; 83970; 84450; 84460; 84550; 86140 ==

== ENCOUNTER 2025-01-24 14:29 | Outpatient (CLI) | payer MEDICARE, SELFPAY | END 2025-01-24 14:30 | disposition home or self-care (01) | LOC: NFLDREF 01-29 12:03 | PROVIDERS: PCP Internal Medicine; Referring Provider Internal Medicine; Visit Provider Internal Medicine Nephrology | DX: E11.29 Type 2 diabetes mellitus with other diabetic kidney complication (principal); R80.9 Proteinuria, unspecified; I10 Essential (primary) hypertension | CPT/HCPCS: 82043; 82570 ==

== ENCOUNTER 2025-03-03 11:00 | Outpatient (CLI) | payer MEDICARE, SELFPAY | END 2025-03-03 11:01 | disposition home or self-care (01) | LOC: NFLDREF 03-06 17:06 | PROVIDERS: PCP Internal Medicine; Referring Provider Internal Medicine; Visit Provider Internal Medicine | DX: R30.0 Dysuria (principal); N30.00 Acute cystitis without hematuria; R35.0 Frequency of micturition | CPT/HCPCS: 87086 ==

== ENCOUNTER 2025-03-31 09:50 | Outpatient (CLI) | payer MEDICARE, SELFPAY | END 2025-03-31 09:51 | disposition home or self-care (01) | LOC: RAD 09:52 | PROVIDERS: PCP Internal Medicine; Visit Provider Internal Medicine | DX: I48.91 Unspecified atrial fibrillation (principal); I51.7 Cardiomegaly; I34.0 Nonrheumatic mitral (valve) insufficiency; I07.1 Rheumatic tricuspid insufficiency; I35.0 Nonrheumatic aortic (valve) stenosis | CPT/HCPCS: 93306 ==

== ENCOUNTER 2025-04-01 13:45 | Outpatient (RCR) | payer MEDICARE, SELFPAY | END 2025-05-01 13:35 | disposition home or self-care (01) | PROVIDERS: PCP Internal Medicine; Visit Provider Internal Medicine | DX: R26.89 Other abnormalities of gait and mobility (principal); R26.81 Unsteadiness on feet; Z51.89 Encounter for other specified aftercare | CPT/HCPCS: 97110; 97161 ==

== ENCOUNTER 2025-04-07 07:33 | Outpatient (CLI) | payer MEDICARE, SELFPAY | END 2025-04-07 07:34 | disposition home or self-care (01) | LOC: NFLDREF 18:45 | PROVIDERS: PCP Internal Medicine; Referring Provider Internal Medicine; Visit Provider Internal Medicine | DX: M81.0 Age-related osteoporosis without current pathological fracture (principal) | CPT/HCPCS: 82310; 82565 ==

== ENCOUNTER 2025-04-17 09:49 | Outpatient (CLI) | payer MEDICARE, SELFPAY | END 2025-04-17 09:50 | disposition home or self-care (01) | LOC: NFLDREF 04-19 18:15 | PROVIDERS: PCP Internal Medicine; Referring Provider Internal Medicine; Visit Provider Physician Assistant | DX: R19.7 Diarrhea, unspecified (principal) | CPT/HCPCS: 87505; 87507 ==